=== PATIENT | female | born 1995 | race Caucasian/White ===

== ENCOUNTER 2021-11-19 10:44 | Emergency (ER) | payer BC, SELFPAY ==
[2021-11-19 10:51] VITALS: BP 115/82; PULSE 75; RESP 18; TEMP 36.4; O2SAT 99; BMI 25.1
--- NOTE | 2021-11-19 11:24 | ED.GENADULT ---
HPI - General Adult General Chief complaint: Extremity Pain/Injury, Upper Stated complaint: RT arm and neck tingly and aching Time Seen by Provider: 11/19/21 11:00 History of Present Illness HPI narrative: This 26-year-old female comes in reporting bilateral neck and shoulder discomfort over the past week. She had an episode this morning where she was attempting to put a cap on a marker and she had brief pain in her shoulder and upper arm and had difficulty performing that function. This lasted for less than a minute and since then she has recovered. She did not have any other symptoms. She does not describe any injury event. She is breast-feeding and wonders if her muscles are undergoing some strain with caring for her 4-month-old . 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 She does not have any pain radiating down into her hands. She does not report any altered sensation. Related Data Home Medications Medication Instructions Recorded Confirmed hydrocortisone 2.5 % lotion 2.5 topical PRN 09/04/21 11/18/21 Previous Rx's Medication Instructions Recorded methylprednisolone 4 mg tablets in See Rx Instructions PO .COMPLEX 11/19/21 a dose pack (Medrol (Jonny)) #21 ea Allergies Allergy/AdvReac Type Severity Reaction Status Date / Time No Known Allergies Allergy Unknown Verified 11/19/21 10:51 Review of Systems Status of ROS: Reports: 10 or more systems reviewed and unremarkable except as noted in History and below Narrative: Constitutional: No fevers, no weight gain or loss. Eyes: No discharge. No vision changes. HENT: No congestion, no sore throat, no ear pain. Cardiovascular: No chest pain, no palpitations. Respiratory: No shortness of breath, no wheezes, no cough. Gastrointestinal: No abdominal pain, no vomiting, no diarrhea. Genitourinary: No dysuria, no hematuria. Musculoskeletal: Normal range of motion. Brief episode some weakness in her right arm related to some pain up in her proximal humerus area. Skin: No rashes, no pruritis. Neurological: No dizziness, weakness, sensory change, speech change. Endo/Heme/Allergies: No bruising or bleeding. No polydipsia. Pysch: no suicidality, no anxiety, no insomnia. All other systems reviewed and are negative. [facility] Medical History (Updated 11/19/21 @ 11:30 by Timothy Castro MD) Chest wall pain History of delivery Inflamed external hemorrhoid Obstetric vaginal laceration with second degree perineal laceration Surgical History History of third molar tooth extraction Family History Mother Hx of blood clots Maternal Grandfather Diabetes Maternal Grandmother Diabetes Family/Other Heart disease 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 Smoking Status: Never smoker Do you use any of these nicotine containing products: None Second hand tobacco smoke exposure: No How often do you have a drink containing alcohol: monthly or less How often do you have six or more drinks on one occasion: Never AUDIT-C Alcohol total score: 1 Non-prescribed substance use: denies use Little interest or pleasure in doing things: not at all Feeling down, depressed, or hopeless: not at all service: No Exam Narrative: Exam Narrative: Constitutional: Well-developed, well-nourished, no acute distress. HEENT: Normocephalic, atraumatic. Neck: Normal range of motion. Nontender. Supple. Heart: Regular. No murmurs. Normal rate. Intact distal pulses. Lungs: Clear to auscultation. No chest discomfort. No wheezes, rhonchi, or rales. Abdomen: Normal bowel sounds. Nontender. No rebound tenderness. Genitalia: Deferred. Back: No midline tenderness. Normal range of motion. Extremities: Normal range of motion. No injury. Skin: Intact. No rash. Warm. No erythema or pallor. Neurologic: No altered sensation. No weakness. Alert and oriented. 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 No facial asymmetry. No pronator drift. Xuzlho-au-bdxr is normal. Spurling's test is negative. Psychiatric: No suicidality. No anxiety or depression. No insomnia. Nursing notes and vitals signs are reviewed. Const: Vital Signs, click to edit/add: Vital Signs - 24 hr 11/19/21 10:51 Temperature 97.6 F Pulse Rate [Pulse Oximeter] 75 Respiratory Rate 18 Blood Pressure [Le ft Upper Arm] 115/82 Pulse Oximetry 99 Oxygen Delivery Me thod Room Air Course Vital Signs Vital signs: Initial Vital Signs Temperature 97.6 F 11/19/21 10:51 Temperature Source Temporal Artery Scan 11/19/21 10:51 Pulse Rate 75 11/19/21 10:51 Respiratory Rate 18 11/19/21 10:51 Blood Pressure 115/82 11/19/21 10:51 Blood Pressure Mean 93 11/19/21 10:51 Blood Pressure Position Supine 11/19/21 10:51 Pulse Oximetry 99 11/19/21 10:51 Oxygen Delivery Method 11/19/21 10:51 Vital Signs Temperature 97.6 F 11/19/21 10:51 Pulse Rate 75 11/19/21 10:51 Respiratory Rate 18 11/19/21 10:51 Blood Pressure 115/82 11/19/21 10:51 Pulse Oximetry 99 11/19/21 10:51 Oxygen Delivery Method 11/19/21 10:51 Temperature 97.6 F 11/19/21 10:51 Pulse Rate 75 11/19/21 10:51 Respiratory Rate 18 11/19/21 10:51 Blood Pressure 115/82 11/19/21 10:51 Pulse Oximetry 99 11/19/21 10:51 Oxygen Delivery Method 11/19/21 10:51 Medical Decision Making MDM Narrative Medical decision making narrative: This patient comes in reporting symptoms as described above. She is not displaying obvious symptoms that could be related to nerve impingement. Her Spurling's test was negative. She is not having any ongoing symptoms and did not have any pain or altered sensation radiating down into her hand. She does describe some bilateral neck musculature discomfort and wonders if it has to do with repetitive activities she is involved in. She does not have any midline tenderness of her neck and back. She does not have any fevers or respiratory symptoms. She does not report any skin changes. This patient is not displaying signs or symptoms that are worrisome. More likely her muscles are complaining with some overuse activities. I did discuss lab and imaging options with the patient and in a process of shared decision making these were declined. She did receive a prescription for Medrol Dosepak. I describe signs and symptoms that would indicate a need for return and re-evaluation. Discharge Plan Discharge Clinical Impression: Neck pain Patient Disposition: Home, Self-Care Condition: Stable Additional Instructions: Take medication as indicated. Use [id number] medicines also as needed and directed. Increase activity as tolerated. Follow up with MD or return if worsening symptoms happen. Prescriptions: New methylprednisolone [Medrol (Jonny)] 4 mg tablets,dose pack See Rx Instructions .ROUTE .COMPLEX Qty: 21 0RF Rx Instructions: orally per package directions No Action hydrocortisone 2.5 % lotion 2.5 topical PRN Follow Up/Referrals: Provider,Not a Local [Referring] - Stand Alone Forms: [employer] Info Instructions
== END 2021-11-19 11:42 | disposition home or self-care (01) ==
LOC: ED 11:30
PROVIDERS: Emergency Provider Emergency Medicine Emergency Medical Services; PCP Physician Assistant Medical
DX: M54.2 Cervicalgia (principal)
CPT/HCPCS: 99283; 99284

== ENCOUNTER 2021-12-17 14:43 | Outpatient (CLI) | payer BC, SELFPAY ==
--- NOTE | 2021-12-17 15:30 | CRLHL7_ITS ---
For Patients: As a result of the Century Cures Act, medical imaging exams and procedure reports are released immediately into your electronic medical record. You may view this report before your referring provider. If you have questions, please contact your health care provider. Indication: Pronator drift. Vision blurriness. Technique: Multiplanar, multisequence MRI of the brain was performed without and with intravenous contrast. Contrast: 15 cc Dotarem. Comparison: None relevant available at this institution. Findings: The corpus callosum, pituitary gland and clivus appear intact. Craniocervical junction appears preserved. No cerebellar tonsillar ectopia. There is no restricted diffusion. No intracranial hemorrhage. The ventricles are proportionate to the cerebral sulci. The 4th ventricle appears midline. The basal cisterns appear patent. No abnormal extra-axial fluid collection identified. There are few scattered foci of T2 FLAIR hyperintensity involving the subcortical white matter. Most pronounced lesion noted along the left centrum semiovale. There is no intracranial mass, abnormal mass-effect or midline shift identified. No abnormal enhancement. Major intracranial vascular flow voids appear grossly intact. Both globes are preserved. Mild paranasal sinus mucosal disease. Left maxillary sinus mucous retention cyst/polyp. Impression: 1. No acute/subacute infarct. 2. Few scattered foci of T2 FLAIR hyperintensity involving the periventricular and subcortical white matter. Differential considerations include sequela of migraine headaches versus are vasculopathic/inflammatory or demyelinating process. Dictated by Ori Bruner MD @ 12/18/2021 10:02:52 AM (Electronically Signed)
== END 2021-12-17 14:44 | disposition home or self-care (01) ==
LOC: MRI 14:43
PROVIDERS: PCP Physician Assistant Medical; Visit Provider Family Medicine
DX: H53.8 Other visual disturbances (principal); G12.29 Other motor neuron disease; Z82.3 Family history of stroke
CPT/HCPCS: 70553; A9575

== ENCOUNTER 2021-12-22 19:08 | Outpatient (CLI) | payer BC, SELFPAY ==
[2021-12-22 20:52] LABS: Cholesterol* 198 mg/dL (90-199); HDL Cholesterol* 73 mg/dL (>=50); LDL Cholesterol Calculated 109 mg/dL (<100); Triglycerides* 82 mg/dL (40-149)
== END 2021-12-22 19:09 | disposition home or self-care (01) ==
LOC: NFLDREF 19:09
PROVIDERS: PCP Physician Assistant Medical; Visit Provider Registered Nurse
DX: Z01.419 Encounter for gynecological examination (general) (routine) without abnormal findings (principal); Z13.6 Encounter for screening for cardiovascular disorders
CPT/HCPCS: 80061

== ENCOUNTER 2022-03-18 14:56 | Outpatient (CLI) | payer BC, SELFPAY ==
[2022-03-18 15:31] LABS: Basophils Absolute Auto 0.03 K/uL (0.00-0.30); Basophils Percent Auto 0.6 % (0.0-3.0); Eosinophils Absolute Auto 0.05 K/uL (0.00-0.50); Hematocrit 40.8 % (33.0-51.0); Hemoglobin* 13.2 gm/dL (12.0-16.0); Immature Granulocytes Abs Auto 0.01 K/uL (0.00-0.30); Immature Granulocytes Pct Auto 0.2 %; Lymphocytes Absolute Auto 1.12 K/uL (0.90-2.90); Lymphocytes Percent Auto 22.9 % (20-44); Mean Corpuscular HGB Conc 32 gm/dL (32-36); Mean Corpuscular Hemoglobin 30 pg (26-34); Mean Corpuscular Volume 92 fL (80-100); Monocytes Percent Auto 9.6 % (0.0-11.0); Neutrophils Absolute Auto 3.22 K/uL (1.7-7.0); Neutrophils Percent Auto 65.7 % (42.0-72.0); Platelet Count* 282 K/uL (140-440); RDW Coefficient of Variation % 12.5 % (11.5-15.5); Red Blood Count 4.43 m/uL (4.00-5.20)
[2022-03-18 15:45] LABS: Slide Review Reflex No
== END 2022-03-18 14:57 | disposition home or self-care (01) ==
PROVIDERS: PCP Physician Assistant Medical; Visit Provider Psychiatry & Neurology Neurology
DX: Z11.9 Encounter for screening for infectious and parasitic diseases, unspecified (principal); G40.A09 Absence epileptic syndrome, not intractable, without status epilepticus; G25.3 Myoclonus
CPT/HCPCS: 36415; 85025; 86618

== ENCOUNTER 2022-05-06 15:17 | Outpatient (CLI) | payer BC, SELFPAY | END 2022-05-06 15:18 | disposition home or self-care (01) | LOC: NFLDREF 05-08 05:54 | PROVIDERS: PCP Physician Assistant Medical; Referring Provider Physician Assistant Medical; Visit Provider Nurse Practitioner Family | DX: R30.0 Dysuria (principal) | CPT/HCPCS: 87086 ==

== ENCOUNTER 2022-05-26 09:03 | Outpatient (CLI) | payer BC, SELFPAY | END 2022-05-26 09:04 | disposition home or self-care (01) | PROVIDERS: PCP Physician Assistant Medical; Visit Provider Family Medicine | DX: R10.31 Right lower quadrant pain (principal); R53.83 Other fatigue | CPT/HCPCS: 80053; 84703 ==

== ENCOUNTER 2022-06-24 15:26 | Outpatient (CLI) | payer BC, SELFPAY | END 2022-06-24 15:27 | disposition home or self-care (01) | LOC: NFLDREF 06-28 03:46 | PROVIDERS: PCP Physician Assistant Medical; Referring Provider Physician Assistant Medical; Visit Provider Family Medicine | DX: E80.6 Other disorders of bilirubin metabolism (principal) | CPT/HCPCS: 80076 ==

== ENCOUNTER 2022-07-09 21:21 | Emergency (ER) | payer BC, SELFPAY ==
[2022-07-09 21:29] VITALS: BP 126/78; PULSE 93; RESP 16; TEMP 36.7; O2SAT 98; BMI 23.5
--- NOTE | 2022-07-09 21:39 | CRLHL7_ITS ---
For Patients: As a result of the Century Cures Act, medical imaging exams and procedure reports are released immediately into your electronic medical record. You may view this report before your referring provider. If you have questions, please contact your health care provider. INDICATION: Complex fluid collection seen on CT. Pelvic pain. COMPARISON: CT of the abdomen and pelvis with contrast from 07/06/2022. FINDINGS: Transvaginal and transabdominal ultrasound examination of the female pelvis was performed. Initial examination is performed with transabdominal technique and transvaginal technique is used for better visualization of the pelvic structures. The uterus is anteverted with no evidence of mass. It measures 8.3 x 3.5 x 4.4 cm. The endometrial lining is normal in thickness at 8 mm. The ovaries are normal in appearance and size, the right measuring 2.1 x 3.7 x 2.0 cm and the left measuring 3.0 x 2.1 x 2.2 cm. The right ovary has several simple dominant follicular cysts, the largest measuring 1.3 centimeters in diameter. The left ovary has a few small follicular cysts. There is normal color and pulse doppler flow in both ovaries. The 3.0 centimeter cystic structure seen in the right cul-de-sac on the previous CT is not evident on today`s study. This is located very far posterior to the right ovary. There is no sign of free fluid in the pelvis. IMPRESSION: Normal ultrasound examination of the female pelvis using transvaginal and transabdominal technique. 3.0 centimeter cystic structure seen posteriorly in the right cul-de-sac on CT is not evident on today`s study. Dictated by Trevor Victoria MD @ 07/09/2022 10:51:09 PM (Electronically Signed)
--- NOTE | 2022-07-09 21:41 | ED.GENADULT ---
HPI - General Adult General Chief complaint: Back Injury/Pain Stated complaint: back pain, ct earlier this week Time Seen by Provider: 07/09/22 21:34 History of Present Illness HPI narrative: Patient is a 27-year-old woman who has been having pain in the right side of her abdomen for last 2 months. Patient had evaluation in the clinic this week including CT scan which showed a complex fluid collection in the cul-de-sac on the right. The pain is located in the low abdomen with radiation posteriorly to the mid posterior abdomen. She has had no anorexia no change in her bowel or bladder no fevers no chills. She has no urinary symptoms. She has had no cough no shortness of breath. She is really not found anything that helps her with her symptoms. Patient has no previous history of abdominal pathology. The pain is dull. She has been taking Tylenol Motrin home with limited effect. Related Data Home Medications Medication Instructions Recorded Confirmed sumatriptan succinate 100 mg tablet 0 mg PO 05/06/22 06/25/22 vitamin#30 30 mg iron-10 cap PO .QD 05/26/22 06/25/22 mg iron-folic acid 1 mg-omg3 capsule Previous Rx's Medication Instructions Recorded cyclobenzaprine 10 mg tablet 10 mg PO TID PRN muscle spasm #14 01/04/22 tabs fluconazole 150 mg tablet 150 mg PO ONCE #1 tab 05/10/22 (Diflucan) polyethylene glycol 3350 17 17 g PO BID #510 grams 05/27/22 gram/dose oral powder (Miralax) Allergies Allergy/AdvReac Type Severity Reaction Status Date / Time No Known Allergies Allergy Unknown Verified 06/25/22 15:07 Review of Systems Status of ROS: Reports: 10 or more systems reviewed and unremarkable except as noted in History and below [facility] Medical History Low back pain ?M54.50 - Low back pain, unspecified (ICD-10) History of delivery ?Z87.51 - Personal history of pre-term labor (ICD-10) Obstetric vaginal laceration with second degree perineal laceration ?O70.1 - Second degree perineal laceration during delivery (ICD-10) Inflamed external hemorrhoid ?K64.4 - Residual hemorrhoidal skin tags (ICD-10) Chest wall pain ?R07.89 - Other chest pain (ICD-10) Surgical History History of third molar tooth extraction (2016) ?K08.409 - Partial loss of teeth, unspecified cause, unspecified class (ICD-10) Family History Mother Hx of blood clots Family/Other Heart disease Breast cancer, Onset Age: 90 Paternal Grandmother Pulmonary hypertension Diabetes Paternal Grandfather Lung cancer Diabetes 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 (Updated 05/26/22 @ 11:04 by Marybeth Andrew MD) 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: , 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, 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 Very rare alcohol use Exercise 3 times a week, HIIT 30 minutes Smoking Status: Never smoker Do you use any of these nicotine containing products: None Second hand tobacco smoke exposure: No How often do you have a drink containing alcohol: monthly or less How often do you have six or more drinks on one occasion: Never AUDIT-C Alcohol total score: 1 Non-prescribed substance use: denies use Little interest or pleasure in doing things: not at all Feeling down, depressed, or hopeless: not at all service: No Exam Narrative: Exam Narrative: EXAM GENERAL: Patient appears comfortable and well. EYES: No scleral icterus. LYMPH: No supraclavicular or cervical lymphadenopathy. SKIN: Visible skin seen during exam normal or with benign process only. EXT: No dependent lower extremity pedal edema. HEART: Regular rate and rhythm with no murmurs, rubs, or gallops. LUNGS: Clear to auscultation bilaterally with no crackles or wheezes. ABD: Soft, non tender, non distended. PSYCH: Good eye contact, speech is not pressured. Const: Vital Signs, click to edit/add: Vital Signs - 24 hr 07/09/22 21:29 07/09/22 22:36 Temperature 98.0 F Pulse Rate [Pulse Oximeter] 93 78 Respiratory Rate 16 16 Blood Pressure [Ri ght Upper Arm] 126/78 136/83 Pulse Oximetry 98 100 Oxygen Delivery Me thod Room Air Room Air Course Course Hospital Course: Patient seen and examined. Previous evaluation reviewed. Will proceed with ultrasound of the pelvis as well as CBC CMP amylase UA D-dimer. Vital Signs Vital signs: Initial Vital Signs Temperature 98.0 F 07/09/22 21:29 Temperature Source Temporal Artery Scan 07/09/22 21:29 Pulse Rate 93 07/09/22 21:29 Respiratory Rate 16 07/09/22 21:29 Blood Pressure 126/78 07/09/22 21:29 Blood Pressure Mean 94 07/09/22 21:29 Pulse Oximetry 98 07/09/22 21:29 Oxygen Delivery Method Room Air 07/09/22 21:29 Vital Signs Temperature 98.0 F 07/09/22 21:29 Pulse Rate 93 07/09/22 21:29 Respiratory Rate 16 07/09/22 21:29 Blood Pressure 126/78 07/09/22 21:29 Pulse Oximetry 98 07/09/22 21:29 Oxygen Delivery Method Room Air 07/09/22 21:29 Temperature 98.0 F 07/09/22 21:29 Pulse Rate 78 07/09/22 22:36 Respiratory Rate 16 07/09/22 22:36 Blood Pressure 136/83 07/09/22 22:36 Pulse Oximetry 100 07/09/22 22:36 Oxygen Delivery Method Room Air 07/09/22 22:36 Medical Decision Making MDM Narrative Medical decision making narrative: Patient is a 27-year-old woman who presents with 2 month history of right-sided abdominal and back pain. Previously this week she had a complex cystic structure in the cul-de-sac. I did obtain in a transvaginal ultrasound which showed no signs of persistence of the cystic structure. Workup including D-dimer is unremarkable. She really has a normal exam today. Ultrasound is otherwise unremarkable. At this time I did note some ketones in her urine as well as some red blood cells and I did recommend follow-up this week with her primary doctor. Urine culture will be obtained. Differential Diagnosis Differential Diagnosis: Cystic pelvic lesion ovarian cyst colitis inflammatory bowel disease irrit Lab Data Labs: Lab Results 07/09/22 07/09/22 Range/Units 21:39 21:58 WBC 4.07 L (4.50-11.00) K/uL RBC 4.43 (4.00-5.20) m/uL Hgb 13.2 (12.0-16.0) gm/dL Hct 40.5 (33.0-51.0) % MCV 91 (80-100) fL MCH 30 (26-34) pg MCHC 33 (32-36) gm/dL RDW Coeff of Erasmo 12.5 (11.5-15.5) % Plt Count 253 (140-440) K/uL Neut % (Auto) 54.9 (42.0-72.0) % Lymph % (Auto) 33.4 (20-44) % Lawrence % (Auto) 9.8 (0.0-11.0) % Eos % (Auto) 0.7 (0.0-7.0) % Baso % (Auto) 0.5 (0.0-3.0) % Neut # (Auto) 2.20 (1.7-7.0) K/uL Lymph # (Auto) 1.40 (0.90-2.90) K/uL Lawrence # (Auto) 0.40 (0.00-0.90) K/UL Eos # (Auto) 0.00 (0.00-0.50) K/uL Baso # (Auto) 0.00 (0.00-0.30) K/uL D-Dimer Quant (PE/DVT) 0.37 (0.00-0.50) ug/ml Sodium 139 (135-149) mmol/L Potassium 4.0 (3.6-5.1) mmol/L Chloride 105 (96-114) mmol/L Carbon Dioxide 27 (20-32) mmol/L BUN 14 (5-24) mg/dL Creatinine 0.6 (0.5-1.5) mg/dL Estimated Creat Clear 139.38 Estimated GFR 128 ml/min Glucose 89 (60-115) mg/dL Calcium 9.1 (8.4-10.6) mg/dL Total Bilirubin 2.1 H (0.1-1.5) mg/dL AST 22 (12-35) U/L ALT 14 (4-35) U/L Alkaline Phosphatase 61 (40-150) U/L Total Protein 6.9 (6.0-8.3) g/dL Albumin 4.3 (3.3-5.0) g/dL Amylase 48 (18-89) U/L Urine Color Yellow (Yellow) Urine Appearance Clear (Clear) Urine pH 6.0 (5.0-8.5) Ur Specific [place] 1.025 (1.000-1.030) Urine Protein Negative (Negative) Urine Glucose (UA) Negative (Negative) Urine Ketones 3+ A (Negative) Urine Blood Trace-intact A (Negative) Urine Nitrite Negative (Negative) Urine Bilirubin Negative (Negative) Urine Urobilinogen 0.2 (0.2-1.0) Ur Leukocyte Esterase Negative (Negative) Urine RBC 2-5 A (0-2) Urine WBC 0-2 (0-5) Ur Squamous Epith Cells Few (None-Few) Urine Bacteria None (None) Discharge Plan Discharge Clinical Impression: Low back pain Patient Disposition: Home, Self-Care Condition: Stable Instructions: Back Pain (ED) Additional Instructions: Tylenol Motrin Ice Follow-up with her doctor this coming week. Prescriptions: No Action cyclobenzaprine 10 mg tablet 10 mg PO TID PRN (Reason: muscle spasm) Qty: 14 0RF PNV #[id number] 30 mg iron-10 mg iron-1 mg capsule PO .QD sumatriptan succinate 100 mg tablet 0 mg PO fluconazole [Diflucan] 150 mg tablet 150 mg PO ONCE Qty: 1 0RF Rx Instructions: as a single dose polyethylene glycol 3350 [Miralax] 17 gram/dose powder 17 g PO BID Qty: 510 0RF Follow Up/Referrals: Marybeth Andrew MD [Primary Care Provider] - Stand Alone Forms: [employer] Info Instructions
[2022-07-09 22:15] LABS: Albumin* 4.3 g/dL (3.3-5.0); Chloride* 105 mmol/L (96-114)
[2022-07-09 22:16] LABS: Sodium* 139 mmol/L (135-149)
[2022-07-09 22:18] LABS: Alkaline Phosphatase* 61 U/L (40-150); Amylase* 48 U/L (18-89); Aspartate Amino Transferase* 22 U/L (12-35); Bilirubin Total* 2.1 mg/dL (0.1-1.5); Blood Urea Nitrogen* 14 mg/dL (5-24); Carbon Dioxide* 27 mmol/L (20-32); Total Protein* 6.9 g/dL (6.0-8.3)
[2022-07-09 22:19] LABS: Alanine Aminotransferase* 14 U/L (4-35); Calcium* 9.1 mg/dL (8.4-10.6); Glucose* 89 mg/dL (60-115)
[2022-07-09 22:21] LABS: D Dimer Quantitative* 0.37 ug/ml (0.00-0.50)
[2022-07-09 22:36] VITALS: BP 136/83; PULSE 78; RESP 16; O2SAT 100
[2022-07-09 22:36] LABS: Creatinine* 0.6 mg/dL (0.5-1.5); Est. Creatinine Clearance* 139.38; Estimated Glomerular Filt Rate 128 ml/min
[2022-07-09 22:37] LABS: Basophils Percent Auto 0.5 % (0.0-3.0); Eosinophils Percent Auto 0.7 % (0.0-7.0); Hematocrit 40.5 % (33.0-51.0); Hemoglobin* 13.2 gm/dL (12.0-16.0); Immature Granulocytes Pct Auto 0.7 %; Lymphocytes Percent Auto 33.4 % (20-44); Mean Corpuscular HGB Conc 33 gm/dL (32-36); Mean Corpuscular Hemoglobin 30 pg (26-34); Mean Corpuscular Volume 91 fL (80-100); Monocytes Percent Auto 9.8 % (0.0-11.0); Neutrophils Percent Auto 54.9 % (42.0-72.0); Platelet Count* 253 K/uL (140-440); RDW Coefficient of Variation % 12.5 % (11.5-15.5); Red Blood Count 4.43 m/uL (4.00-5.20); White Blood Count* 4.07 K/uL (4.50-11.00)
[2022-07-09 22:46] LABS: Slide Review Reflex No
[2022-07-09 22:48] LABS: Appearance Urine Clear (Clear); Bilirubin Urine Negative (Negative); Blood Urine Trace-intact (Negative); Color Urine Yellow (Yellow); Glucose Urine Negative (Negative); Ketones Urine 3+ (Negative); Leukocyte Esterase Urine Negative (Negative); Nitrite Urine Negative (Negative); Protein Urine Negative (Negative); Specific Gravity Urine 1.025 (1.000-1.030); Urobilinogen Urine 0.2 (0.2-1.0)
[2022-07-09 23:03] LABS: WBC Urine 0-2 (0-5)
[2022-07-09 23:04] LABS: Squamous Epithelial Cell Urine Few (None-Few)
== END 2022-07-09 23:15 | disposition home or self-care (01) ==
PROVIDERS: Emergency Provider Internal Medicine; PCP Family Medicine
DX: M54.59 Other low back pain (principal)
CPT/HCPCS: 36415; 76830; 76856; 80053; 81003; 81015; 82150; 85025; 85379; 93976; 99283

== ENCOUNTER 2022-11-16 15:30 | Outpatient (RCR) | payer BC, SELFPAY ==
--- NOTE | 2022-08-18 12:29 | PT.OPDN ---
PT [facility] Daily Note PT [facility] Outpatient Daily Note Start: 03/10/22 15:45 Freq: Status: Active Protocol: Document 08/18/22 08:17 JESUS (Rec: 08/18/22 10:45 JESUS Laptop) E-signed By Celine Fierro PT OP Daily Progress Note Visit Information Note Type Daily Note Visit Number [id number] Insurance Authorized Visits 100 Physician Authorized Visits eval and treat Insurance Information Insurance Name [employer] Medical Diagnosis M54.2 - neck pain Treating Diagnosis M54.2 - neck pain Referring Jon Sadler MD; Madan Frias MD; Martha Olvera MD Subjective Subjective Pt has been having a lot of pain in her upper R trap and neck area. Her tried to massage it but it did not help. Had FLORES as well but this improved with Tylenol/IBP use. Preferred Name Gabrielle ([facility] [place]) Precautions Treatment Precautions/Contraindications Mami - daughter's name Warner - 's name Home Exercise Home Exercise Comments [id number] Objective Other/Pertinent Objective Cervical AROM: Extension: 40 Flexion: 58 R/L Sidebend: 33/45 R/L Rotation: 75/70 R Scapular Strength Rhomboid - 5/5 MMT Mid Trap - 5/5 MMT Lower Trap - 4/5 MMT L Scapular Strength Rhomboid - 5/5 MMT Mid Trap - 4+/5 MMT Lower Trap - 4+/5 MMT Patient Instructed in Risks/Benefits Yes Therapeutic Exercise Therapeutic Exercise Minutes (minutes) 10 Therapeutic Exercise: To Restore S/L lateral cervical flexion 2 Functional Status x 20 ea Seated levator stretch 3 x 30 ea Manual Therapy Techniques Manual Therapy Minutes (minutes) 30 Manual Therapy Techniques STM performed in prone to B rhomboid/mid trap, levator; supine to B UT, cervical paraspinals to reduce tissue tension and improve extensibility. Supine assisted UT stretch x 30 ea Grade V rotational CTJ manipulation to relax muscle tissue tension with cavitation noted to L only Grade V PA thoracic manipulation to relax muscle tissue tension with cavitation noted Treatment Minutes Timed Code Treatment Minutes 40 Total Treatment Time 40 Billing Units Manual Therapy Units 2 Therapeutic Exercise Units 1 Assessment/Impression Assessment/Impression Adam symptoms have fluctuated and persisted during her time in therapy. She continues to present with spasms in her R levator scapulae muscle and upper trap . These do show short-lived improvements with massage and stretching but treatment has not been long-lasting. I do feel that Gabrielle's chronic spasms and pain in this region is due to overuse of these muscles while caring for her daughter; she also tends to carry a lot of stress in her shoulders which leads to an overactivation of her upper traps and levator muscles. We will try ultrasound to these muscle groups when she returns to our clinic next week as well as focus on activation of bilaterally lower traps to reduce load on upper traps. Pt to schedule 2/week for next 4 weeks for more aggressive treatment of her condition. Recommend continued PT services to address deficits and return pt to highest level of function. Co-Signed by Raymond Landa, PT, DPT, [id number] Plan of Care Physical Therapy Goals STG - To be completed in 2-3 weeks: 1. Pt will demonstrate improved cervical strength to 5/5 MMT in all directions to provide greater support to cervical spine and head. 2. Pt will report reduction in neck pain by factor of 2 so that they may roll over in bed without waking due to pain. MET 3. Pt will report reduction in headache intensity by factor of 2 so that they may remain functional at home when headaches do occur. MET LTG - To be completed in 6-8 weeks: 1. Pt to be I with HEP so that they may I manage progression of symptoms. 2. Pt will demo full and pain free cervical rotation ROM and lateral flexion ROM so that they may look over shoulder while driving to watch for traffic. 3. Pt will report absence of neck pain with all activities so that they may return to participating in recreational activities with their friends and family. 4. Pt will report reduction of frequency of headaches to 1/ week so that headaches minimally interfere with them during working hours. Daily Plan of Care Change in Frequency Daily Plan of Care Comments increasing frequency to 2/week for 4 weeks Student Supervision Licensed PT Directed/Approved Treatment, Reviewed POC with Patient,Made Contact with Patient, Participated in Treatment Documentation Reviewed By Clothes Shaker Yes
--- NOTE | 2022-09-21 09:11 | PT.OPDN ---
PT [facility] Daily Note PT [facility] Daily Note Start: 03/10/22 15:45 Freq: Status: Active Protocol: Document 09/21/22 07:59 CJT (Rec: 09/21/22 09:11 CJT [id number]) E-signed By Raymond Landa, PT PT OP Daily Progress Note Visit Information Note Type Recert/Progress Note Visit Number 25 Insurance Authorized Visits 100 Physician Authorized Visits eval and treat Insurance Information Insurance Name [employer] Medical Diagnosis M54.2 - neck pain Treating Diagnosis M54.2 - neck pain Referring MD Jon Vazquez MD; Madan Frias MD; Martha Olvera MD Subjective Subjective Pts pain is improved. Still has mild achiness in B levator with R worse than L. Rates discomfort as 07/31 this AM. Pain Comments 07/31 Preferred Name Gabrielle ([facility] [place]) Precautions Treatment Precautions/Contraindications Mami - daughter's name Warner - 's name Home Exercise Home Exercise Comments [id number] Objective Other/Pertinent Objective Cervical AROM: Extension: 45 Flexion: 45 *tightness in bilateral levators R/L Sidebend: 34/36 R/L Rotation: 70/72 *pts rotation AROM increases to 88 degrees bilaterally following MET with lack of pain reported R Scapular Strength Rhomboid - 5/5 MMT Mid Trap - 4/5 MMT Lower Trap - 4/5 MMT L Scapular Strength Rhomboid - 5/5 MMT Mid Trap - 4/5 MMT Lower Trap - 4/5 MMT Patient Instructed in Risks/Benefits Yes Therapeutic Exercise Therapeutic Exercise Minutes (minutes) 40 Therapeutic Exercise: To Restore UBE x 4 minutes, level 5 Functional Status Shoulder IR/ER in neutral with RTB x 20 ea Shoulder ER at 90 with RTB x 20 ea Shoulder Extensions with GRB x 20 TRX Row 3 x 8 BOSU Push-ups 3 x 8 SA Row, 35# 3 x 5 ea SA Split stance deadlift 3 x 6 ea Bird/Dog w/ crunch 3 x 10 ea Dynamic dumbbell press 3 x 10 ea, 8# Manual Therapy Techniques Manual Therapy Minutes (minutes) 5 Manual Therapy Techniques STM/DTM performed in prone to R levator to reduce tissue tension and improve extensibility. Treatment Minutes Timed Code Treatment Minutes 45 Total Treatment Time 45 Billing Units Therapeutic Exercise Units 3 Assessment/Impression Assessment/Impression Gabrielle's symptoms have shown consistent improvement, however, she is still reporting a high level of pain in her cervical/scapular region (7/10 this morning) which appears to be caused by muscle tissue tension in her levator scapulae. She rates her overall improvement as greater than 70% at this time. She is no longer experiencing headaches as she had been intiially. Gabrielle continues to show lack of cervical rotation AROM due to muscle tightness but this is much improved today following a muscle energy technique for cervical rotation. Pts Cervical rotation AROM was improved from grossly 72 degrees bilaterally to 88 degrees bilaterally following. We will continue to utilize this technique in subsequent sessions to facilitate cervical AROM. For future treatment sessions, I feel a focus on postural awareness will be especially important for Gabrielle as she continues to carry a lot of her stress in her shoulders and this contributes to her pain. I don 't feel her pain will ever fully resolve while she continues to have these habits of carrying stress in her shoulders. We will discuss in greater detail with her when she returns to our clinic on as well as update her HEP. Recommend continued PT services to address deficits and return pt to highest level of function. Plan of Care Physical Therapy Goals STG - To be completed in 2-3 weeks: 1. Pt will demonstrate improved cervical strength to 5/5 MMT in all directions to provide greater support to cervical spine and head. 2. Pt will report reduction in neck pain by factor of 2 so that they may roll over in bed without waking due to pain. MET 3. Pt will report reduction in headache intensity by factor of 2 so that they may remain functional at home when headaches do occur. MET LTG - To be completed in 6-8 weeks: 1. Pt to be I with HEP so that they may I manage progression of symptoms. 2. Pt will demo full and pain free cervical rotation ROM and lateral flexion ROM so that they may look over shoulder while driving to watch for traffic. NOT MET - pt continues to lack cervical AROM and experiences pain with testing 3. Pt will report absence of neck pain with all activities so that they may return to participating in recreational activities with their friends and family. NOT MET 4. Pt will report reduction of frequency of headaches to 1/ week so that headaches minimally interfere with them during working hours. MET Daily Plan of Care Continue per POC Daily Plan of Care Comments McConnel taping over B levator , IASTM to B levator with AROM ; update HEP
--- NOTE | 2022-11-16 16:28 | PT.OPDN ---
PT [place] [facility] Daily Note PT [facility] Daily Note Start: 03/10/22 15:45 Freq: Status: Active Protocol: Document 11/16/22 15:31 CJT (Rec: 11/16/22 16:27 CJT [id number]) E-signed By Raymond Landa, PT PT OP Daily Progress Note Visit Information Note Type Daily Note Visit Number 28 Insurance Authorized Visits 100 Physician Authorized Visits eval and treat Insurance Information Recert Due Date 12/20/22 Insurance Name [employer] Medical Diagnosis M54.2 - neck pain Treating Diagnosis M54.2 - neck pain Referring MD Jon Vazquez MD; Vania- Madan Aguirre MD; Martha Olvera MD Subjective Subjective Pt continues to note symptoms including neck pain, upper back/scapular pain and headaches. She has been faithful with her HEP over the past month and throughout her time in therapy. 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 Preferred Name Gabrielle ([facility]) Precautions Treatment Precautions/Contraindications Mami - daughter's name Warner - 's name Home Exercise Home Exercise Comments [id number] Objective Other/Pertinent Objective Cervical AROM: WNL R Scapular Strength Rhomboid - 5/5 MMT Mid Trap - 5/5 MMT Lower Trap - 4+/5 MMT L Scapular Strength Rhomboid - 5/5 MMT Mid Trap - 4+/5 MMT Lower Trap - 4+/5 MMT Patient Instructed in Risks/Benefits Yes Manual Therapy Techniques Manual Therapy Minutes (minutes) 32 Manual Therapy Techniques STM/DTM performed in prone to B scalenes, UT, levator, rhomboids, thoracic paraspinals to reduce tissue tension and improve extensibility. Self Care Management Training Self-Care Activity Minutes (minutes) 12 Self Care Management Training McConnel tape applied cross- grain to B levator with AP tension to diminish spasm. Verbal review and discussion of pts HEP; indications for specific stretches, goals of training opposing muscle groups. Treatment Minutes Timed Code Treatment Minutes 44 Total Treatment Time 44 Billing Units Manual Therapy Units 2 Self-Care Activity Units 1 Assessment/Impression Assessment/Impression Italia had a lengthy discussion today regarding her symptoms, her improvement since starting therapy, and issues that have continued despite consistent performance of her HEP and behavioral changes regarding postural awareness during working hours . While Gabrielle has reported seeing meaningful change in her symptoms, she continues to have frequent recurring head aches, and neck and scapular pain. Personally I feel I am out of options when it comes to helping Gabrielle, although I feel working with a different Physical Therapist for some time may be beneficial - she agrees. I would also like for her to follow-up with her PCP (Dr. Andrew) to see if Gabrielle's symptoms may be a result of something more systemic in nature. I have my doubts about systemic causes for her pain as it continues to appear to be muscular and consistent with objective measures taken in our clinic, however, because her pain has lingered this long I don't think it would hurt to explore this potential option. Gabrielle has a follow-up appointment scheduled with her neurologist at the end of November. She and I have agreed to touch base following this meeting to discuss next steps. Plan of Care Physical Therapy Goals STG - To be completed in 2-3 weeks: 1. Pt will demonstrate improved cervical strength to 5/5 MMT in all directions to provide greater support to cervical spine and head. 2. Pt will report reduction in neck pain by factor of 2 so that they may roll over in bed without waking due to pain. MET 3. Pt will report reduction in headache intensity by factor of 2 so that they may remain functional at home when headaches do occur. MET LTG - To be completed in 6-8 weeks: 1. Pt to be I with HEP so that they may I manage progression of symptoms. 2. Pt will demo full and pain free cervical rotation ROM and lateral flexion ROM so that they may look over shoulder while driving to watch for traffic. NOT MET - pt continues to lack cervical AROM and experiences pain with testing 3. Pt will report absence of neck pain with all activities so that they may return to participating in recreational activities with their friends and family. NOT MET 4. Pt will report reduction of frequency of headaches to 1/ week so that headaches minimally interfere with them during working hours. MET Daily Plan of Care Continue per POC
== END 2023-02-01 10:30 | disposition home or self-care (01) ==
PROVIDERS: PCP Physician Assistant Medical; Visit Provider Psychiatry & Neurology Neurology
DX: M54.2 Cervicalgia (principal); R14.0 Abdominal distension (gaseous); R10.31 Right lower quadrant pain; Z51.89 Encounter for other specified aftercare
CPT/HCPCS: 97035; 97110; 97140; 97161; 97535

== ENCOUNTER 2023-01-14 23:04 | Emergency (ER) | payer BC, SELFPAY ==
[2023-01-14 23:08] VITALS: BP 107/71; PULSE 87; RESP 18; TEMP 36.3; O2SAT 98; BMI 23.5
--- NOTE | 2023-01-14 23:18 | CRLHL7_ITS ---
For Patients: As a result of the Century Cures Act, medical imaging exams and procedure reports are released immediately into your electronic medical record. You may view this report before your referring provider. If you have questions, please contact your health care provider. INDICATION: Leg pain and swelling. TECHNIQUE: Ultrasound venous duplex lower left extremity. Compression venous exam was performed using armstrong-scale, color Doppler, and spectral Doppler analysis. COMPARISON: None. FINDINGS: Deep veins: Sonographic imaging demonstrates the left common femoral, deep femoral, superficial femoral, popliteal, posterior tibial and the contralateral right common femoral veins to be fully compressible with normal color Doppler blood flow. Superficial veins: Greater saphenous vein is fully compressible. No popliteal cyst. IMPRESSION: Normal left lower extremity venous ultrasound, no sign of deep venous thrombosis. Dictated by Miles Le MD @ 01/15/2023 1:08:02 AM (Electronically Signed)
--- NOTE | 2023-01-14 23:19 | ED_ITS ---
HPI - Extremity Injury (Lower) General Chief Complaint: Extremity Pain/Injury, Lower Stated Complaint: Pain on L Leg Time Seen by Provider: 01/14/23 23:15 History of Present Illness HPI Narrative: Patient is a 2 para 1 woman who is 7 weeks who comes in today with pain and swelling in the left calf. She has no bruising or ecchymoses. The pain is in the posterior aspect of the calf. His worsen with range of motion. She has no joint pain. Pain is actually moderate she does feel some minor swelling. No other complaints are noted such as chest pain shortness of breath. She has no vaginal pain or discharge. Related Data Home Medications Medication Instructions Recorded Confirmed sumatriptan succinate 100 mg tablet 0 mg PO 05/06/22 07/27/22 vitamin#30 30 mg iron-10 cap PO .QD 05/26/22 07/27/22 mg iron-folic acid 1 mg-omg3 capsule Allergies Allergy/AdvReac Type Severity Reaction Status Date / Time No Known Allergies Allergy Unknown Verified 01/14/23 23:12 Review of Systems Status of ROS: Reports: 10 or more systems reviewed and unremarkable except as noted in History and below [facility] Medical History Low back pain ?M54.50 - Low back pain, unspecified (ICD-10) History of delivery ?Z87.51 - Personal history of pre-term labor (ICD-10) Obstetric vaginal laceration with second degree perineal laceration ?O70.1 - Second degree perineal laceration during delivery (ICD-10) Inflamed external hemorrhoid ?K64.4 - Residual hemorrhoidal skin tags (ICD-10) Chest wall pain ?R07.89 - Other chest pain (ICD-10) Surgical History History of third molar tooth extraction (2016) ?K08.409 - Partial loss of teeth, unspecified cause, unspecified class (ICD- 10) Family History Mother Hx of blood clots Family/Other Heart disease Breast cancer, Onset Age: 90 Paternal Grandmother Pulmonary hypertension Diabetes Paternal Grandfather Lung cancer Diabetes 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 EYES: No scleral icterus. ENT: Tympanic membranes and oropharynx normal. THYROID: no thyroid nodules or thyromegaly. LYMPH: No supraclavicular or cervical lymphadenopathy. SKIN: Visible skin seen during exam normal or with benign process only. EXT: No dependent lower extremity pedal edema. No pain to palpation no obvious swelling left leg. HEART: Regular rate and rhythm with no murmurs, rubs, or gallops. LUNGS: Clear to auscultation bilaterally with no crackles or wheezes. ABD: Soft, non tender, non distended. PSYCH: Good eye contact, speech is not pressured. Const: Vital Signs, click to edit/add: Vital Signs - 24 hr 01/14/23 23:08 Temperature 97.3 F L Pulse Rate [Pulse Oximeter] 87 Respiratory Rate 18 Blood Pressure [Ri ght Upper Arm] 107/71 Pulse Oximetry 98 Oxygen Delivery Me thod Room Air Course Course ED Course: Patient seen and examined. Duplex of left lower extremity pending. Vital Signs Vital signs: Initial Vital Signs Temperature 97.3 F L 01/14/23 23:08 Temperature Source Temporal Artery Scan 01/14/23 23:08 Pulse Rate 87 01/14/23 23:08 Respiratory Rate 18 01/14/23 23:08 Blood Pressure 107/71 01/14/23 23:08 Blood Pressure Mean 83 01/14/23 23:08 Blood Pressure Position Sitting 01/14/23 23:08 Pulse Oximetry 98 01/14/23 23:08 Oxygen Delivery Method Room Air 01/14/23 23:08 Vital Signs Temperature 97.3 F L 01/14/23 23:08 Pulse Rate 87 01/14/23 23:08 Respiratory Rate 18 01/14/23 23:08 Blood Pressure 107/71 01/14/23 23:08 Pulse Oximetry 98 01/14/23 23:08 Oxygen Delivery Method Room Air 01/14/23 23:08 Temperature 97.3 F L 01/14/23 23:08 Pulse Rate 87 01/14/23 23:08 Respiratory Rate 18 01/14/23 23:08 Blood Pressure 107/71 01/14/23 23:08 Pulse Oximetry 98 01/14/23 23:08 Oxygen Delivery Method Room Air 01/14/23 23:08 MDM - Extremity Injury (Lower) MDM Narrative Medical decision making narrative: Patient is a 27-year-old woman who is 7 weeks with her 2nd child who presents with pain and subjective swelling the left leg. My exam is normal. She has normal vital signs and her duplex of left lower extremity is unremarkable. This time we will treat her symptomatically and she can follow-up with her primary physician as needed. All questions answered. Differential diagnosis includes but not limited to DVT, phlebitis, ruptured Lim cyst, cellulitis, ruptured musculature, muscle strain. Discharge Plan Discharge Clinical Impression: Leg pain Patient Disposition: Home, Self-Care Condition: Stable Instructions: Leg Pain (ED) Additional Instructions: Warm compresses Stretching Follow up with your doctor if symptoms do not improve. Activity Level: No Restrictions Discharge Diet: Regular Prescriptions: No Action PNV #[id number] 30 mg iron-10 mg iron-1 mg capsule PO .QD sumatriptan succinate 100 mg tablet 0 mg PO Hold Instructions: Order Change Follow Up/Referrals: Marybeth Andrew MD [Primary Care Provider] - Stand Alone Forms: [employer] Info Instructions
== END 2023-01-15 00:57 | disposition home or self-care (01) ==
PROVIDERS: Emergency Provider Internal Medicine; PCP Family Medicine
DX: M79.662 Pain in left lower leg (principal); Z3A.01 Less than 8 weeks gestation of pregnancy
CPT/HCPCS: 93971; 99283

== ENCOUNTER 2023-01-26 12:56 | Outpatient (CLI) | payer BC, SELFPAY ==
--- NOTE | 2023-01-26 13:00 | CRLHL7_ITS ---
For Patients: As a result of the Century Cures Act, medical imaging exams and procedure reports are released immediately into your electronic medical record. You may view this report before your referring provider. If you have questions, please contact your health care provider. INDICATION: First trimester scan, establish dates. COMPARISON: None. TECHNIQUE: Real-time armstrong-scale imaging of the pelvis was performed. FINDINGS: Sonographic imaging demonstrates a single living intrauterine gestation. The embryo demonstrates a regular cardiac rate measuring 171 beats per minute. The embryo`s crown-rump length measurement of 1.6 cm corresponds to a gestational age of 8 weeks 0 days with a sonographic due date of 09/07/2023. There is a normal-appearing yolk sac. There are no gross abnormalities noted within the embryo at this early state of development. The gestational sac has a normal appearance. There is no evidence of a perigestational hemorrhage. The amount of fluid within the sac appears appropriate for gestational age. The cervix is closed. The myometrium appears normal. Simple right ovarian cyst is present measures 5.1 x 3.4 x 3.8 cm. Left ovary not visualized. There are no suspicious fluid collections noted in the cul-de-sac. IMPRESSION: Single living intrauterine measuring 8 weeks 0 days and sonographic due date 09/07/2023. 5.1 cm simple right ovarian cyst. Dictated by Warner Ortiz MD @ 01/26/2023 2:46:05 PM (Electronically Signed)
== END 2023-01-26 12:57 | disposition home or self-care (01) ==
LOC: US 12:56
PROVIDERS: PCP Family Medicine; Visit Provider Registered Nurse
DX: Z34.91 Encounter for supervision of normal pregnancy, unspecified, first trimester (principal); O34.81 Maternal care for other abnormalities of pelvic organs, first trimester; N83.291 Other ovarian cyst, right side; Z3A.08 8 weeks gestation of pregnancy
CPT/HCPCS: 76817; 86703; 86706; 86803; 86850; 86900; 86901; 87086; 87340; 87491; 87591

== ENCOUNTER 2023-01-26 14:07 | Outpatient (CLI) | payer BC, SELFPAY ==
[2023-01-26 23:49] LABS: Chlamydia DNA Amplified* NOT DETECTED (No Detected); GC DNA Amplified* NOT DETECTED (No Detected)
== END 2023-01-26 14:08 | disposition home or self-care (01) ==
PROVIDERS: PCP Family Medicine; Visit Provider Registered Nurse
DX: Z34.91 Encounter for supervision of normal pregnancy, unspecified, first trimester (principal)
CPT/HCPCS: 86592; 86703; 86704; 86706; 86762; 86787; 86803; 86850; 86900; 86901; 87086; 87340; 87491; 87591

== ENCOUNTER 2023-02-22 17:05 | Emergency (ER) | payer BC, SELFPAY ==
[2023-02-22 17:16] VITALS: BP 101/69; PULSE 96; RESP 16; TEMP 37.3; O2SAT 98; BMI 22.6
[2023-02-22] MEDS: LACTATED RINGERS 1000 ML IV (19:39)
--- NOTE | 2023-02-22 20:09 | ED.GENADULT ---
HPI - General Adult General Time Seen by Provider: 20:10 Date Seen: 02/22/23 Chief complaint: Unspecified Complaint, Adult Stated complaint: need fluids for dehydration () Time Seen by Provider: 02/22/23 19:28 Source: patient, RN notes reviewed and old records reviewed Mode of arrival: ambulatory Limitations: no limitations History of Present Illness HPI narrative: Patient is a very pleasant 27-year-old female at approximately 12 in 2 7th weeks with an EDC of 09/04/2023 who sent to the emergency room by the OB department for fluids and evaluation. Patient had noted to have increased vomiting with a total of 18 hours persistent vomiting on February 17. She notes the following day she felt very weak and out of it. History is confirmed and the following is an XR from her OB visit earlier today:Patient presents for an unscheduled OB visit. She has been feeling poorly since I saw her a week ago. She states that starting the evening of Tuesday the , she was feeling poorly. She had increased nausea and vomited a couple of times. February 16, she continued to feel poorly and vomited twice. February 17, she woke up at 2:00 a.m. and experienced persistent vomiting for 18 hours. She did take Zofran which offered some improvement. February 18, she continued to feel poorly, had body aches, but was not vomiting. She stayed in bed most of the day that day. She began experiencing shortness of breath on February 18. She presented to urgent care on February 19. She tested negative for influenza, COVID, and RSV. She states that the urgent care physician suggested that she stop taking Zofran, as that may be the cause for her shortness of breath. It was discovered that she has a murmur and an echocardiogram has been ordered. Patient states that she is scheduled for March 17 for the echocardiogram. Yesterday, she states she was vomiting again for about 10 hours. She continues to feel poorly today. She is nauseous, has aching bilateral legs, and has low energy, but is not vomiting. She took Vitamin B6 and Unisom today. The nausea feels like she is at her baseline for today. She continues to experience shortness of breath today when walking or talking. She has no swelling in her bilateral lower extremities. No isolated redness or tenderness in legs. Unable to auscultate heart tones with Doppler. Bedside ultrasound shows positive heart motion and positive movement. She has voided 2-3 times today, dark yellow in color. She has consumed 1 bottle of water thus far today. She looks pale and overall unwell. I suspect that the patient is dehydrated and that she might get a fair amount of improvement with IV hydration. Moving forward, she can continue to take Zofran as directed, as I do not suspect that is causing her SOB. I would like her to be evaluated and hydrated in the emergency department. Patient notes no vomiting today but has noted aching in her calves bilaterally. She notes that she did have history of superficial thrombophlebitis with previous . Otherwise no history of DVT. She denies abdominal pain and has not had cough cold congestion runny nose or sore throat. Patient notes that a few days ago she was going down stairs and got extremely short of breath. She notes that that is still present with a intense activity but has improved somewhat. She has not been wheezing nor has she had a cough. Related Data Home Medications Medication Instructions Recorded Confirmed vitamin#30 30 mg iron-10 cap PO .QD 05/26/22 02/22/23 mg iron-folic acid 1 mg-omg3 capsule Previous Rx's Medication Instructions Recorded hydrocortisone 2.5 % topical cream 1 applic WV BID-QID PRN 01/26/23 with perineal applicator hemorrhoids #30 grams (Anusol-HC) ondansetron 4 mg disintegrating 4 mg PO Q6H PRN nausea and 02/11/23 tablet vomiting #30 tabs famotidine 20 mg tablet 20 mg PO QDAY #90 tabs 02/15/23 Allergies Allergy/AdvReac Type Severity Reaction Status Date / Time No Known Allergies Allergy Unknown Verified 02/22/23 17:14 Review of Systems Status of ROS: Reports: 10 or more systems reviewed and unremarkable except as noted in History and below Const: Reports: fatigue; Denies: fever or chills Eyes: Denies: change in vision ENMT: Denies: throat pain, throat swelling, difficulty swallowing, ear pain, nasal discharge or nasal congestion Cardio: Reports: shortness of breath with exertion; Denies: chest pain, edema or swelling of feet/ankles Resp: Reports: shortness of breath; Denies: cough or wheezing GI: Reports: nausea and vomiting (None today); Denies: abdominal pain, diarrhea or difficulty swallowing : Denies: painful urination or urinary frequency Musculo: Denies: back pain Neuro: Denies: headache or numbness in extremities Endo: Reports: fatigue Allergy/Immuno: Denies: throat swelling or wheezing PFSH [facility] Medical History Low back pain ?M54.50 - Low back pain, unspecified (ICD-10) History of delivery ?Z87.51 - Personal history of pre-term labor (ICD-10) Obstetric vaginal laceration with second degree perineal laceration ?O70.1 - Second degree perineal laceration during delivery (ICD-10) Inflamed external hemorrhoid ?K64.4 - Residual hemorrhoidal skin tags (ICD-10) Chest wall pain ?R07.89 - Other chest pain (ICD-10) Surgical History History of third molar tooth extraction (2015) ?K08.409 - Partial loss of teeth, unspecified cause, unspecified class (ICD-10) Family History Mother Hx of blood clots Family/Other Heart disease Breast cancer, Onset Age: 90 Paternal Grandmother Pulmonary hypertension Diabetes Paternal Grandfather Lung cancer Diabetes 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: , 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, 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: never true Smoking Status: Never smoker Do you use any of these nicotine containing products: None Second hand tobacco smoke exposure: No How often do you have a drink containing alcohol: never AUDIT-C Alcohol total score: 0 Non-prescribed substance use: denies use How often does anyone, including family, friends and others, physically hurt you: never How often does anyone, including family, friends and others, insult or talk down to you: never How often does anyone, including family, friends and others, threaten you with harm: never How often does anyone, including family, friends and others, scream or curse at you: never Little interest or pleasure in doing things: not at all Feeling down, depressed, or hopeless: not at all service: No Exam Narrative: Exam Narrative: Patient is alert and oriented. She is fatigued but nontoxic in appearance. Eyes are clear. Face symmetrical. Mentation and speech is normal. Neck is supple without lymphadenopathy. Lips are dry but tongue is moist and speech pattern is normal. Heart with regular rate and rhythm. I do note a 2/6 systolic murmur. Lungs are clear bilaterally. Abdomen soft nontender. Lower extremities without edema. No Homans sign. No evidence of erythema. Moving all extremities and can ambulate to the bathroom unassisted. Const: Vital Signs, click to edit/add: Vital Signs - 24 hr 02/22/23 17:16 02/22/23 22:09 02/22/23 22:24 Temperature 99.1 F 99.1 F 98.5 F Pulse Rate [Pulse Oximeter] 96 89 Respiratory Rate 16 16 Blood Pressure [Ri ght Upper Arm] 101/69 110/74 Pulse Oximetry 98 98 Oxygen Delivery Me thod Room Air Room Air 02/22/23 22:25 Temperature 98.5 F Pulse Rate [Pulse Oximeter] 89 Respiratory Rate 16 Blood Pressure [Ri ght Upper Arm] 110/74 Pulse Oximetry Oxygen Delivery Me thod Documenting provider has reviewed patient's vital signs: yes Course Course ED Course: At this time differential diagnosis includes but is not limited to PE, lower extremity DVT, cardiomyopathy, hyper emesis gravidarum, GI virus, electrolyte abnormality, COVID influenza. Will place IV and this is already been done by nursing staff. Fluids had been started prior to my seeing patient. Will give her 2 L at this time. Will check a CBC, comprehensive, magnesium, COVID/influenza/RSV as well as lower extremity Dopplers. Reevaluation(s) Reevaluation #1: Patient does receive 2 L of fluid. She has a headache stating this is most likely because she has not eaten in a while. She request Tylenol and 1 g is ordered. EKG noted to be within normal limits and this is shared with patient. Lower extremity Dopplers are negative. Vital Signs Vital signs: Initial Vital Signs Temperature 99.1 F 02/22/23 17:16 Temperature Source Temporal Artery Scan 02/22/23 17:16 Pulse Rate 96 02/22/23 17:16 Pulse Rhythm Regular 02/22/23 17:16 Pulse Strength 3+ Normal 02/22/23 17:16 Respiratory Rate 16 02/22/23 17:16 Blood Pressure 101/69 02/22/23 17:16 Blood Pressure Mean 79 02/22/23 17:16 Blood Pressure Position Sitting 02/22/23 17:16 Pulse Oximetry 98 02/22/23 17:16 Oxygen Delivery Method Room Air 02/22/23 17:16 Vital Signs Temperature 99.1 F 02/22/23 17:16 Pulse Rate 96 02/22/23 17:16 Respiratory Rate 16 02/22/23 17:16 Blood Pressure 101/69 02/22/23 17:16 Pulse Oximetry 98 02/22/23 17:16 Oxygen Delivery Method Room Air 02/22/23 17:16 Temperature 98.5 F 02/22/23 22:25 Pulse Rate 89 02/22/23 22:25 Respiratory Rate 16 02/22/23 22:25 Blood Pressure 110/74 02/22/23 22:25 Pulse Oximetry 98 02/22/23 22:24 Oxygen Delivery Method Room Air 02/22/23 22:24 Medications Administered Medications: Discontinued Medications Generic Name Dose Route Start Last Admin Trade Name Freq PRN Reason Stop Dose Admin Acetaminophen 1,000 mg 02/22/23 22:02 02/22/23 22:09 Acetaminophen 500 Mg Tablet PO 02/22/23 22:03 1,000 mg ONCE ONE Administration Lactated Ringer's 1,000 mls @ 500 mls/hr 02/22/23 20:18 02/22/23 21:21 Lactated Ringers 1000 Ml IV 02/22/23 22:17 Infused .Q2H GUILLERMO Infusion Lactated Ringer's 1,000 ml 02/22/23 19:26 02/22/23 19:39 Lactated Ringers 1000 Ml IV 02/22/23 19:27 1,000 ml ONCE ONE Administration Medical Decision Making MDM Narrative Medical decision making narrative: 1. Fatigue-fortunately no evidence of abnormal white cells or electrolytes. COVID/influenza and RSV negative. 2. Vomiting-magnesium, creatinine LFTs all within normal limits. 3. Shortness of breath with activity-at this time patient has a normal oxygen level and pulse. Lower extremity Doppler is negative for DVT. EKG is normal with no evidence of right heart strain to indicate a cardiomyopathy or increased pressures secondary to PE. No evidence of fluid overload, acute coronary syndrome. Lungs are clear to auscultation. Given these findings I hesitate to put patient through radiological studies and she appears to agree we would like to avoid any radiation. Given and persistent vomiting I did not do a D-dimer but instead did lower extremity Dopplers. These were reassuring. I would recommend continuing to rest. I also recommended echocardiogram. Patient states that that is actually already scheduled for March 18. 4. Disposition-home at this time. I do ask patient if she feels comfortable departing and she does. Would ask her to return as needed for worsening symptoms. Medical Records Medical records reviewed: Yes I reviewed the patient's medical records Lab Data Lab results reviewed: Yes I reviewed the patient's lab results Labs: Lab Results 02/22/23 Range/Units 20:19 WBC 7.47 (4.50-11.00) K/uL RBC 4.61 (4.00-5.20) m/uL Hgb 13.6 (12.0-16.0) gm/dL Hct 41.2 (33.0-51.0) % MCV 89 (80-100) fL MCH 30 (26-34) pg MCHC 33 (32-36) gm/dL RDW Coeff of Erasmo 12.7 (11.5-15.5) % Plt Count 189 (140-440) K/uL Neut % (Auto) 75.3 H (42.0-72.0) % Lymph % (Auto) 15.8 L (20-44) % [place] % (Auto) 8.0 (0.0-11.0) % Eos % (Auto) 0.5 (0.0-7.0) % Baso % (Auto) 0.3 (0.0-3.0) % Neut # (Auto) 5.60 (1.7-7.0) K/uL Lymph # (Auto) 1.20 (0.90-2.90) K/uL [place] # (Auto) 0.60 (0.00-0.90) K/UL Eos # (Auto) 0.04 (0.00-0.50) K/uL Baso # (Auto) 0.02 (0.00-0.30) K/uL Abs Immat Gran (auto) 0.01 (0.00-0.30) K/uL Imm/Tot Granulo (auto) 0.1 % Sodium 138 (135-149) mmol/L Potassium 3.4 L (3.6-5.1) mmol/L Chloride 101 (96-114) mmol/L Carbon Dioxide 26 (20-32) mmol/L Anion Gap 11 (7-15) mEq/L BUN 8 (5-24) mg/dL Creatinine 0.4 L (0.5-1.5) mg/dL Estimated Creat Clear 209.08 Estimated GFR 141 ml/min Glucose 94 (60-115) mg/dL Calcium 9.1 (8.4-10.6) mg/dL Magnesium 1.9 (1.5-2.6) mg/dL Total Bilirubin 1.0 (0.1-1.5) mg/dL AST 24 (12-35) U/L ALT 13 (4-35) U/L Alkaline Phosphatase 63 (40-150) U/L Total Protein 7.5 (6.0-8.3) g/dL Albumin 4.3 (3.3-5.0) g/dL SARS-CoV-2 (PCR) Negative SARS-CoV-2 (Negative) Influenza Type A (PCR) Negative PCR FLU A (Negative) Influenza Type B (PCR) Negative PCR FLU B (Negative) RSV (PCR) Negative PCR RSV (Negative) Imaging Data Venous US: Attestation: I have reviewed the pertinent imaging results. Radiologist's impression: Deep veins: The bilateral common femoral, femoral, popliteal, and visualized calf veins are fully compressible, demonstrate normal color flow, and normal response to mechanical augmentation. The Duplex Doppler waveforms are normal in appearance. Superficial veins: The visualized greater saphenous and superficial veins of the leg and calf are unremarkable. Soft tissue: No masses or cysts are identified. No adenopathy is seen. IMPRESSION: 1. No sonographic evidence of acute deep venous thrombosis seen in either lower extremities. ECG Data Attestation: I personally reviewed and interpreted this ECG as follows: Interpretation: EKG by my read shows sinus rhythm at a rate of 92. There are no acute ST or T-wave changes noted. QRS morphology is normal. QT and WV intervals normal as well. No evidence of right heart strain. Discharge Plan Discharge Clinical Impression: Bilateral leg pain, Hyperemesis Fatigue Qualifiers: Fatigue type: other Qualified Code(s): R53.83 - Other fatigue Patient Disposition: Home, Self-Care Condition: Improved Additional Instructions: Recommend pushing fluids. Labs were all reassuring this evening. Lower extremity ultrasound without DVT. Prescriptions: No Action PNV #[id number] 30 mg iron-10 mg iron-1 mg capsule PO .QD hydrocortisone [Anusol-HC] 2.5 % cream with perineal applicator 1 applic WV BID-QID PRN (Reason: hemorrhoids) Qty: 30 0RF famotidine 20 mg tablet 20 mg PO QDAY Qty: 90 1RF ondansetron 4 mg tablet,disintegrating 4 mg PO Q6H PRN (Reason: nausea and vomiting) Qty: 30 0RF Follow Up/Referrals: Marybeth Andrew MD [Primary Care Provider] - Stand Alone Forms: [facility] Info Instructions
--- NOTE | 2023-02-22 20:17 | CRLHL7_ITS ---
For Patients: As a result of the Century Cures Act, medical imaging exams and procedure reports are released immediately into your electronic medical record. You may view this report before your referring provider. If you have questions, please contact your health care provider. INDICATION: Bilateral leg pain TECHNIQUE: Ultrasound venous duplex bilateral lower extremities. Real-time armstrong-scale (B mode 2D), color Doppler, and spectral Doppler imaging were performed with compression and augmentation. COMPARISON: None FINDINGS: Deep veins: The bilateral common femoral, femoral, popliteal, and visualized calf veins are fully compressible, demonstrate normal color flow, and normal response to mechanical augmentation. The Duplex Doppler waveforms are normal in appearance. Superficial veins: The visualized greater saphenous and superficial veins of the leg and calf are unremarkable. Soft tissue: No masses or cysts are identified. No adenopathy is seen. IMPRESSION: 1. No sonographic evidence of acute deep venous thrombosis seen in either lower extremities. Dictated by: Baudilio Neves MD @ 02/22/2023 22:49:16 (Electronically Signed)
[2023-02-22] MEDS: LACTATED RINGERS 1000 ML 1,000 ML 500 ML IV (20:26)
[2023-02-22 20:29] LABS: Basophils Absolute Auto 0.02 K/uL (0.00-0.30); Basophils Percent Auto 0.3 % (0.0-3.0); Eosinophils Absolute Auto 0.04 K/uL (0.00-0.50); Eosinophils Percent Auto 0.5 % (0.0-7.0); Hematocrit 41.2 % (33.0-51.0); Hemoglobin* 13.6 gm/dL (12.0-16.0); Immature Granulocytes Abs Auto 0.01 K/uL (0.00-0.30); Immature Granulocytes Pct Auto 0.1 %; Lymphocytes Percent Auto 15.8 % (20-44); Mean Corpuscular HGB Conc 33 gm/dL (32-36); Mean Corpuscular Hemoglobin 30 pg (26-34); Mean Corpuscular Volume 89 fL (80-100); Neutrophils Percent Auto 75.3 % (42.0-72.0); Platelet Count* 189 K/uL (140-440); RDW Coefficient of Variation % 12.7 % (11.5-15.5); Red Blood Count 4.61 m/uL (4.00-5.20); White Blood Count* 7.47 K/uL (4.50-11.00)
[2023-02-22 20:36] LABS: Slide Review Reflex No
[2023-02-22 20:43] LABS: Albumin* 4.3 g/dL (3.3-5.0); Chloride* 101 mmol/L (96-114); Potassium* 3.4 mmol/L (3.6-5.1); Sodium* 138 mmol/L (135-149)
[2023-02-22 20:45] LABS: Creatinine* 0.4 mg/dL (0.5-1.5); Est. Creatinine Clearance* 209.08; Estimated Glomerular Filt Rate 141 ml/min
[2023-02-22 20:46] LABS: Alanine Aminotransferase* 13 U/L (4-35); Alkaline Phosphatase* 63 U/L (40-150); Anion Gap 11 mEq/L (7-15); Aspartate Amino Transferase* 24 U/L (12-35); Blood Urea Nitrogen* 8 mg/dL (5-24); Carbon Dioxide* 26 mmol/L (20-32); Glucose* 94 mg/dL (60-115); Total Protein* 7.5 g/dL (6.0-8.3)
[2023-02-22 20:47] LABS: Calcium* 9.1 mg/dL (8.4-10.6); Magnesium* 1.9 mg/dL (1.5-2.6)
[2023-02-22 21:08] LABS: PCR FLU A Negative PCR FLU A (Negative); PCR FLU B Negative PCR FLU B (Negative); PCR RSV Negative PCR RSV (Negative)
[2023-02-22 21:24] LABS: SARS PCR* Negative SARS-CoV-2 (Negative)
[2023-02-22 22:09] VITALS: TEMP 37.3
[2023-02-22] MEDS: ACETAMINOPHEN 500 MG TABLET 1000 MG PO (22:09)
[2023-02-22 22:24] VITALS: BP 110/74; PULSE 89; RESP 16; TEMP 36.9; O2SAT 98
[2023-02-22 22:25] VITALS: BP 110/74; PULSE 89; RESP 16; TEMP 36.9
== END 2023-02-22 22:25 | disposition home or self-care (01) ==
PROVIDERS: Emergency Provider Family Medicine; PCP Family Medicine
DX: O21.0 Mild hyperemesis gravidarum (principal); R53.83 Other fatigue; M79.605 Pain in left leg; M79.604 Pain in right leg; Z3A.12 12 weeks gestation of pregnancy
CPT/HCPCS: 36415; 80053; 83735; 85025; 87631; 93970; 99284; A9270; J7120

== ENCOUNTER 2023-03-08 16:56 | Observation (INO) | payer BC, SELFPAY ==
[2023-03-08] VITALS (10 sets, daily range): BP systolic 111–134; BP diastolic 57–93; PULSE 101–122; RESP 16–18; TEMP 36.6–37; O2SAT 96–100; BMI 21.9; BMI 22.1
--- NOTE | 2023-03-08 17:50 | CRLHL7_ITS ---
For Patients: As a result of the Century Cures Act, medical imaging exams and procedure reports are released immediately into your electronic medical record. You may view this report before your referring provider. If you have questions, please contact your health care provider. Indication: Tachycardia, shortness of breath, 15 weeks Technique: Volumetric multidetector CT images of the chest were obtained after the administration of IV contrast. 95 cc Isovue 370 low osmolar intravenous contrast Comparison: None available. Findings: The thoracic inlet and thyroid gland are unremarkable. The thoracic aorta is nonaneurysmal. There is demonstration of large filling defects within the proximal bilateral upper and lower lobe subsegmental pulmonary arteries. There is mild prominence of the main pulmonary artery. There is no evidence of interventricular septal inversion. There is no mediastinal, hilar or axillary adenopathy. The trachea and bronchi are well aerated without significant bronchiectasis. There is no focal consolidation, effusion or pneumothorax. There is no evidence of pulmonary mass or suspicious pulmonary nodule. The partially visualized upper abdominal viscera are within normal limits. The thoracic vertebral body heights remain intact alignment without significant degenerative change or acute osseous abnormality. Impression: Demonstration of large filling defect seen throughout the bilateral proximal pulmonary arteries consistent with extensive pulmonary emboli. Mild prominence of the main pulmonary artery without definite evidence of intraventricular septal inversion. Findings were discussed with Timothy Castro at 7:10 p.m. March 08, 20[address] Please note that all CT scans at this facility use dose modulation, iterative reconstruction, and/or weight-based dosing when appropriate to reduce radiation dose to as low as reasonably achievable. Dictated by Sushant Ramirez MD @ 03/08/2023 7:13:38 PM (Electronically Signed)
[2023-03-08 18:11] LABS: Basophils Absolute Auto 0.01 K/uL (0.00-0.30); Basophils Percent Auto 0.1 % (0.0-3.0); Eosinophils Absolute Auto 0.08 K/uL (0.00-0.50); Hematocrit 39.8 % (33.0-51.0); Hemoglobin* 13.3 gm/dL (12.0-16.0); Immature Granulocytes Abs Auto 0.01 K/uL (0.00-0.30); Immature Granulocytes Pct Auto 0.1 %; Lymphocytes Percent Auto 13.8 % (20-44); Mean Corpuscular HGB Conc 33 gm/dL (32-36); Mean Corpuscular Hemoglobin 30 pg (26-34); Mean Corpuscular Volume 89 fL (80-100); Monocytes Percent Auto 5.5 % (0.0-11.0); Neutrophils Percent Auto 79.5 % (42.0-72.0); Platelet Count* 230 K/uL (140-440); RDW Coefficient of Variation % 12.6 % (11.5-15.5); Red Blood Count 4.49 m/uL (4.00-5.20); White Blood Count* 8.34 K/uL (4.50-11.00)
[2023-03-08 18:27] LABS: Slide Review Reflex No
--- NOTE | 2023-03-08 19:58 | ED_ITS ---
HPI - General Adult General Chief complaint: Shortness of Breath/Dyspnea Stated complaint: High heart rate, 110-135 Time Seen by Provider: 03/08/23 17:01 History of Present Illness HPI narrative: This 27-year-old female comes in reporting increased heart rate and shortness of breath. This has been present for the past couple weeks. She was seen a couple weeks ago here and had ultrasound of her lower extremities showing no sign of deep venous thrombosis. At that time her heart rate was 96 and today she arrives with resting heart rate 116. She now reports shortness of breath even at rest and certainly with activity. She is 15 weeks . This is not her 1st . She states that she did have a superficial thrombophlebitis during a previous . She is not on any anticoagulants. She is otherwise in good health. Related Data Home Medications Medication Instructions Recorded Confirmed vitamin#30 30 mg iron-10 cap PO .QD 05/26/22 02/22/23 mg iron-folic acid 1 mg-omg3 capsule Previous Rx's Medication Instructions Recorded hydrocortisone 2.5 % topical cream 1 applic AR BID-QID PRN 01/26/23 with perineal applicator hemorrhoids #30 grams (Anusol-HC) ondansetron 4 mg disintegrating 4 mg PO Q6H PRN nausea and 02/11/23 tablet vomiting #30 tabs famotidine 20 mg tablet 20 mg PO QDAY #90 tabs 02/15/23 Allergies Allergy/AdvReac Type Severity Reaction Status Date / Time No Known Allergies Allergy Unknown Verified 03/08/23 18:29 Review of Systems Status of ROS: Reports: 10 or more systems reviewed and unremarkable except as noted in History and below Narrative: Constitutional: No fevers, no weight gain or loss. Eyes: No discharge. No vision changes. HENT: No congestion, no sore throat, no ear pain. Cardiovascular: No chest pain, no palpitations. Respiratory: No wheezes, no cough. Shortness of breath as described above. Gastrointestinal: No abdominal pain, no vomiting, no diarrhea. Genitourinary: No dysuria, no hematuria. Musculoskeletal: Normal range of motion. Skin: No rashes, no pruritis. Neurological: No dizziness, weakness, sensory change, speech change. Endo/Heme/Allergies: No bruising or bleeding. No polydipsia. Pysch: no suicidality, no anxiety, no insomnia. All other systems reviewed and are negative. [facility] Medical History Low back pain ?M54.50 - Low back pain, unspecified (ICD-10) History of delivery ?Z87.51 - Personal history of pre-term labor (ICD-10) Obstetric vaginal laceration with second degree perineal laceration ?O70.1 - Second degree perineal laceration during delivery (ICD-10) Inflamed external hemorrhoid ?K64.4 - Residual hemorrhoidal skin tags (ICD-10) Chest wall pain ?R07.89 - Other chest pain (ICD-10) Surgical History History of third molar tooth extraction (2015) ?K08.409 - Partial loss of teeth, unspecified cause, unspecified class (ICD- 10) Family History Mother Hx of blood clots Family/Other Heart disease Breast cancer, Onset Age: 90 Paternal Grandmother Pulmonary hypertension Diabetes Paternal Grandfather Lung cancer Diabetes 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: , 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, 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: never true Smoking Status: Never smoker Do you use any of these nicotine containing products: None Second hand tobacco smoke exposure: No How often do you have a drink containing alcohol: never AUDIT-C Alcohol total score: 0 Non-prescribed substance use: denies use How often does anyone, including family, friends and others, physically hurt you : never How often does anyone, including family, friends and others, insult or talk down to you: never How often does anyone, including family, friends and others, threaten you with harm: never How often does anyone, including family, friends and others, scream or curse at you: never Little interest or pleasure in doing things: not at all Feeling down, depressed, or hopeless: not at all service: No Exam Narrative: Exam Narrative: Constitutional: Well-developed, well-nourished, no acute distress. HEENT: Normocephalic, atraumatic. Neck: Normal range of motion. Nontender. Supple. Heart: Regular. No murmurs. Tachycardia. Intact distal pulses. Lungs: Clear to auscultation. No chest discomfort. No wheezes, rhonchi, or rales. Abdomen: Normal bowel sounds. Nontender. No rebound tenderness. Genitalia: Deferred. Back: No midline tenderness. Normal range of motion. Extremities: Normal range of motion. No injury. Skin: Intact. No rash. Warm. No erythema or pallor. Neurologic: No altered sensation. No weakness. Alert and oriented. Psychiatric: No suicidality. No anxiety or depression. No insomnia. Nursing notes and vitals signs are reviewed. Const: Vital Signs, click to edit/add: Vital Signs - 24 hr 03/08/23 16:58 03/08/23 18:57 Temperature 97.8 F Pulse Rate [Pulse Oximeter] 116 H 101 H Respiratory Rate 16 18 Blood Pressure [Ri ght Upper Arm] 111/70 117/74 Pulse Oximetry 100 100 Oxygen Delivery Me thod Room Air Room Air Course Vital Signs Vital signs: Initial Vital Signs Temperature 97.8 F 03/08/23 16:58 Temperature Source Temporal Artery Scan 03/08/23 16:58 Pulse Rate 116 H 03/08/23 16:58 Respiratory Rate 16 03/08/23 16:58 Blood Pressure 111/70 03/08/23 16:58 Blood Pressure Mean 83 03/08/23 16:58 Blood Pressure Position Supine 03/08/23 16:58 Pulse Oximetry 100 03/08/23 16:58 Oxygen Delivery Method Room Air 03/08/23 16:58 Vital Signs Temperature 97.8 F 03/08/23 16:58 Pulse Rate 116 H 03/08/23 16:58 Respiratory Rate 16 03/08/23 16:58 Blood Pressure 111/70 03/08/23 16:58 Pulse Oximetry 100 03/08/23 16:58 Oxygen Delivery Method Room Air 03/08/23 16:58 Temperature 97.8 F 03/08/23 16:58 Pulse Rate 101 H 03/08/23 18:57 Respiratory Rate 18 03/08/23 18:57 Blood Pressure 117/74 03/08/23 18:57 Pulse Oximetry 100 03/08/23 18:57 Oxygen Delivery Method Room Air 03/08/23 18:57 Medications Administered Medications: Generic Name Dose Route Start Last Admin Trade Name Freq PRN Reason Stop Dose Admin Enoxaparin Sodium 60 mg 03/08/23 19:40 03/08/23 20:10 Enoxaparin 60 Mg/0.6 Ml Inj SUBCUT 03/08/23 19:41 60 mg ONCE ONE Administration Medical Decision Making MDM Narrative Medical decision making narrative: This patient comes in with tachycardia and oximetry on room air at 100%. She is 15 weeks and has no report of any lower extremities or upper extremity swelling or unilateral pain. She does not have a prior history of deep venous thrombosis. She states that she was tested for Leiden factor 5 previously and it was a negative results. Her symptoms today are suspicious for pulmonary embolism. An IV was established and labs are acquired. Her D-dimer returns markedly elevated at 7.9. CT scan of the chest with IV contrast shows extensive proximal clots in all lobes of the lung. There is mild sign of dilation of the pulmonary artery but no sign of right heart strain. I did consult with Dr. Munson, paraprofessional aide teacher at [facility] [employer], to consider whether or not a mechanical removal of the clot is indicated. She was reporting that the studies are not real conclusive for benefit versus risk and for this patient it seems with reassuring vital signs and no significant right heart strain that this should not be done. The patient did receive a subcuticular injection of Lovenox 60 mg. Her troponin returns at 0.08. With a bump in her troponin it is recommended by both Dr. Ibarra and Dr. Munson to admit her into the hospital. I did speak with Loreta Mata, the hospitalist on-call, who agrees to this plan. Lab Data Labs: Lab Results 03/08/23 Range/Units 18:00 WBC 8.34 (4.50-11.00) K/uL RBC 4.49 (4.00-5.20) m/uL Hgb 13.3 (12.0-16.0) gm/dL Hct 39.8 (33.0-51.0) % MCV 89 (80-100) fL MCH 30 (26-34) pg MCHC 33 (32-36) gm/dL RDW Coeff of Erasmo 12.6 (11.5-15.5) % Plt Count 230 (140-440) K/uL Neut % (Auto) 79.5 H (42.0-72.0) % Lymph % (Auto) 13.8 L (20-44) % [place] % (Auto) 5.5 (0.0-11.0) % Eos % (Auto) 1.0 (0.0-7.0) % Baso % (Auto) 0.1 (0.0-3.0) % Neut # (Auto) 6.60 (1.7-7.0) K/uL Lymph # (Auto) 1.20 (0.90-2.90) K/uL [place] # (Auto) 0.50 (0.00-0.90) K/UL Eos # (Auto) 0.08 (0.00-0.50) K/uL Baso # (Auto) 0.01 (0.00-0.30) K/uL Abs Immat Gran (auto) 0.01 (0.00-0.30) K/uL Imm/Tot Granulo (auto) 0.1 % D-Dimer Quant (PE/DVT) 7.90 H (0.00-0.50) ug/ml Troponin I 0.08 H* (0.01-0.04) ng/mL Discharge Plan Discharge Clinical Impression: , Pulmonary embolism Patient Disposition: Admitted As Observation Condition: Unchanged Prescriptions: No Action PNV #[id number] 30 mg iron-10 mg iron-1 mg capsule PO .QD hydrocortisone [Anusol-HC] 2.5 % cream with perineal applicator 1 applic AR BID-QID PRN (Reason: hemorrhoids) Qty: 30 0RF famotidine 20 mg tablet 20 mg PO QDAY Qty: 90 1RF ondansetron 4 mg tablet,disintegrating 4 mg PO Q6H PRN (Reason: nausea and vomiting) Qty: 30 0RF Follow Up/Referrals: Marybeth Andrew MD [Primary Care Provider] -
[2023-03-08 20:01] LABS: Troponin I* 0.08 ng/mL (0.01-0.04)
[2023-03-08] MEDS: ENOXAPARIN 60 MG/0.6 ML INJ SUBCUT (20:10)
--- NOTE | 2023-03-08 20:20 | ED.NURSE ---
pt report given to oncsusana RN
--- NOTE | 2023-03-08 20:22 | ED.NURSE ---
Assumed care of pt @ 2019. Report received from previous nurse, Barby Sanders. All questions answered.
--- NOTE | 2023-03-08 20:52 | P.IMHP_ITS ---
Hospitalist- H&P: HPI History of Present Illness Date Seen: 03/08/23 Chief complaint: High heart rate, 110-135 Narrative: Gabrielle Mcmahon is a 27 year old female past medical history significant for low back pain, headaches, history of delivery, currently 15 weeks is admitted to the medical floor from the ED for overnight observation in setting of acute pulmonary emboli. Patient presented to the ED with complaint of increased heart rate and shortness of breath. She had similar symptoms 2 weeks ago, was evaluated in the ED, hydrated with IVF, and had an ultrasound of her lower extremities which at that time showed no sign of DVT. She tells me those symptoms completely resolved, returning again just this morning. She contacted her OBGYN who recommended she come to the ED again. Patient is currently 15 weeks . . Last OB visit was on 02/22/2023. Previous history of superficial thrombophlebitis during 1st . Currently, patient reports mild headache but is hungry and has not had much to eat or drink in the past few hours. Denies dizziness. Has some chest discomfort which she relates to the clots and rapid heart rate. No recent fevers or chills. Has had bouts of nausea vomiting in but currently well managed. Denies active heartburn, not currently using Famotidine. No change in stools or urination. ED provider discussed with Dawn graduate recruiter and Dr. Ibarra, ROAD PATCHER, both recommending admission for overnight observation, cardiac monitoring, trending troponins, echocardiogram. Review of Systems Narrative: REVIEW OF SYSTEMS: Complete review of systems performed and negative unless otherwise stated in HPI or below. [facility] Medical History Low back pain ?M54.50 - Low back pain, unspecified (ICD-10) History of delivery ?Z87.51 - Personal history of pre-term labor (ICD-10) Obstetric vaginal laceration with second degree perineal laceration ?O70.1 - Second degree perineal laceration during delivery (ICD-10) Inflamed external hemorrhoid ?K64.4 - Residual hemorrhoidal skin tags (ICD-10) Chest wall pain ?R07.89 - Other chest pain (ICD-10) Surgical History History of third molar tooth extraction (2016) ?K08.409 - Partial loss of teeth, unspecified cause, unspecified class (ICD- 10) Family History Mother Hx of blood clots Family/Other Heart disease Breast cancer, Onset Age: 90 Paternal Grandmother Pulmonary hypertension Diabetes Paternal Grandfather Lung cancer Diabetes 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: , 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, 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: never true Smoking Status: Never smoker Do you use any of these nicotine containing products: None Second hand tobacco smoke exposure: No How often do you have a drink containing alcohol: never AUDIT-C Alcohol total score: 0 Non-prescribed substance use: denies use How often does anyone, including family, friends and others, physically hurt you : never How often does anyone, including family, friends and others, insult or talk down to you: never How often does anyone, including family, friends and others, threaten you with harm: never How often does anyone, including family, friends and others, scream or curse at you: never Little interest or pleasure in doing things: not at all Feeling down, depressed, or hopeless: not at all service: No Meds Home Medications and Allergies Home Medications Medication Instructions Recorded Confirmed Type vitamin#30 30 mg iron-10 cap PO .QD 05/26/22 02/22/23 History mg iron-folic acid 1 mg-omg3 capsule Allergies Allergy/AdvReac Type Severity Reaction Status Date / Time No Known Allergies Allergy Unknown Verified 03/08/23 18:29 Exam Narrative: Exam Narrative: PHYSICAL EXAM General: Pleasant, conversant, NAD HEENT: Normocephalic, atraumatic, sclera white, EOMI, oral mucosa moist Cardiovascular: RRR, mild tachycardia. S1S2. No pitting edema Pulmonary: CTA bilaterally without rhonchi, rales, expiratory wheezes. No dyspnea Neurological: Alert, answering questions appropriately, cranial nerves intact, no focal findings Extremities: No gross joint deformity or swelling. AROMI. Neurovascularly intact Skin: Warm, dry. Const: Vital Signs, click to edit/add: Vital Signs - 24 hr 03/08/23 16:58 03/08/23 18:57 Temperature 97.8 F Pulse Rate [Pulse Oximeter] 116 H 101 H Respiratory Rate 16 18 Blood Pressure [Ri ght Upper Arm] 111/70 117/74 Pulse Oximetry 100 100 Oxygen Delivery Me thod Room Air Room Air Hospitalist - H&P: Result Labs Labs: Short CBC 03/08/23 Range/Units 18:00 WBC 8.34 (4.50-11.00) K/uL Hgb 13.3 (12.0-16.0) gm/dL Hct 39.8 (33.0-51.0) % Plt Count 230 (140-440) K/uL Cardiac Enzymes 03/08/23 Range/Units 18:00 Troponin I 0.08 H* (0.01-0.04) ng/mL Imaging CT scan - chest: Attestation: I have reviewed the pertinent imaging results. Radiologist's impression: Findings: The thoracic inlet and thyroid gland are unremarkable. The thoracic aorta is nonaneurysmal. There is demonstration of large filling defects within the proximal bilateral upper and lower lobe subsegmental pulmonary arteries. There is mild prominence of the main pulmonary artery. There is no evidence of interventricular septal inversion. There is no mediastinal, hilar or axillary adenopathy. The trachea and bronchi are well aerated without significant bronchiectasis. There is no focal consolidation, effusion or pneumothorax. There is no evidence of pulmonary mass or suspicious pulmonary nodule. The partially visualized upper abdominal viscera are within normal limits. The thoracic vertebral body heights remain intact alignment without significant degenerative change or acute osseous abnormality. Impression: Demonstration of large filling defect seen throughout the bilateral proximal pulmonary arteries consistent with extensive pulmonary emboli. Mild prominence of the main pulmonary artery without definite evidence of intraventricular septal inversion. Assessment and Plan Assessment and plan (1) Pulmonary embolism: Problem comment: -CT shows bilateral proximal pulmonary arteries with extensive pulmonary emboli. No evidence of right heart strain reported -received 1st dose Lovenox in ED, continue with therapeutic dosing, enoxaparin 1 milligram/kilogram q.12 hours in -cardiac monitor technician -echocardiogram ordered Status: Acute (2) : Problem comment: -15 weeks per report, Status: Acute (3) Elevated troponin: Problem comment: -0.08, likely ischemic in setting of acute pulmonary emboli -continue to trend, repeat pending on admission Status: Acute Plan CODE: Full VTE PPX: Therapeutic Lovenox Disposition: Observation, likely discharge tomorrow if remains stable, pending echo
--- NOTE | 2023-03-08 21:15 | W.PC.EDHO ---
Primary Language: Preferred Language: Orientation Status: [x] Alert & Oriented [] Slight Confusion [] Known Dx Dementia Transfers By: [x] Assist of 1 [] Assist of 2 [] Lift Active Medications Discontinued Medications Generic Name Dose Route Start Last Admin Trade Name Isaiah PRN Reason Stop Dose Admin Enoxaparin Sodium 60 mg 03/08/23 19:40 03/08/23 20:10 Enoxaparin 60 Mg/0.6 Ml Inj SUBCUT 03/08/23 19:41 60 mg ONCE ONE Administration Description of Symptoms ED Triage Present Problem a couple weeks felt like had to take deep breaths, Description feeling that way starting last night and more noticeable this morning. called OB , told to go to ED. chai september 03. Female History Hx Last Menstrual Period CHAI 09/04/23 Patient Yes Patient Yes Pain Pain Description [Chest] Dull, Achy Pain Description [Chest] Heaviness Pain Intensity [Chest] 2 Pain Intensity [Chest] 3 Pain Scale Used [Chest] Numeric (1 - 10) IV Insertion/Site Date of IV Line Insertion [ 03/08/23 Right Antecubital] Oxygen Administration Pulse Oximetry 100 Pulse Oximetry 100 Oxygen Delivery Method Room Air Oxygen Delivery Method Room Air
--- NOTE | 2023-03-08 21:23 | ED.NURSE ---
Report called to M/S nurse Sanchez. All questions answered. Pt to transfer to room 262. Patient in stable condition upon transfer. All belongings sent with patient upon transfer.
[2023-03-08 22:07] LABS: Troponin I* 0.05 ng/mL (0.01-0.04)
[2023-03-09] VITALS (10 sets, daily range): BP systolic 112–130; BP diastolic 62–80; PULSE 74–114; RESP 14–18; TEMP 36.9–37; O2SAT 96–99
[2023-03-09 01:02] LABS: Troponin I* 0.03 ng/mL (0.01-0.04)
[2023-03-09 06:58] LABS: Hematocrit 38.4 % (33.0-51.0); Mean Corpuscular HGB Conc 34 gm/dL (32-36); Mean Corpuscular Hemoglobin 30 pg (26-34); Mean Corpuscular Volume 89 fL (80-100); Platelet Count* 236 K/uL (140-440)
[2023-03-09 07:13] LABS: Chloride* 106 mmol/L (96-114); Sodium* 136 mmol/L (135-149)
[2023-03-09 07:15] LABS: Creatinine* 0.4 mg/dL (0.5-1.5); Est. Creatinine Clearance* 209.08; Estimated Glomerular Filt Rate 141 ml/min
[2023-03-09 07:16] LABS: Anion Gap 4 mEq/L (7-15); Blood Urea Nitrogen* 7 mg/dL (5-24); Calcium* 8.9 mg/dL (8.4-10.6); Carbon Dioxide* 26 mmol/L (20-32); Glucose* 86 mg/dL (60-115)
[2023-03-09 07:20] LABS: Troponin I* 0.02 ng/mL (0.01-0.04)
[2023-03-09 07:28] LABS: Slide Review Reflex No
--- NOTE | 2023-03-09 08:07 | PC.NURSE ---
Patient pleasant, alert and oriented. Independent in room with ambulation. Reported having a headache upon admission. Headache went away during the night. Reports having SOB that comes and goes and needing to take deep breaths at times. Denied any other discomfort. HR 122 upon arrival. HR 89-112 during shift. stayed through the night. ?
[2023-03-09] MEDS: ENOXAPARIN 60 MG/0.6 ML INJ SUBCUT ×2 (08:47→20:58)
--- NOTE | 2023-03-09 12:42 | PM.OBCN1 ---
OB - CN: HPI Date of Consult Date Seen: 03/09/23 Patient: [facility] Patient Consult date: 03/09/23 Requesting Physician: Halley Avila MD Primary Care Provider: Marybeth Andrew MD Consult Narrative Narrative: OF NOT, PATIENT NOT SEEN OB CONSULT WAS NOT REQUESTED - Note written for documentation of care and communication between providers. Ms. Mcmahon is a 27yo at 14w3d GA by LMP who is admitted to the hospital in the setting of large bilateral PEs. Her is otherwise chronic dyspnea, leg pain, migraines without aura nausea, GERD. She did experience superficial thrombophlebitis in her last . She was last seen on 02/22/23 by Elizabeth Salgado, sent to the ED in the setting of bilateral leg pain, nausea/vomiting. There, she had LE US and EKG which was negative for DVTs and EKG was within normal limits. She returned to the ED on 03/08 with worsening dyspnea and tachycardia, subsequently found to have bilateral proximal PE and mildly elevated troponins. Dr. Ibarra was made aware of her on the evening of 03/08, recommended hospitalization but was not formally consulted. I was contacted by IM hospitalist today, to ensure Ob service was aware of her admission. They report no acute Ob concerns at this time, thus we mutually agree inpatient Ob consultation is not required. They report she continues to be tachycardic, but her troponins have normalized. She is on therapeutic ACO with lovenox. I explained our recommendations would be to provide the same care that a non- patient would receive, given her early GA. Her acute PE and ACO certainly put her at increased risk with regard to her , where outpatient Maternal Medicine consultation would be recommended. Plan to place this order today. In the interim, we will defer all management of her PE and anticoagulation to her medicine providers. I asked about duration of her therapeutic anticoagulation, where they mentioned it would include through the duration of her . I would encourage at least 3 months of therapeutic anticoagulation before transitioning to prophylactic through duration of the until 6 weeks , but will ultimately defer this decision to her Medicine/MFM providers. Placement of an IVC filter could be considered if longer duration of therapeutic ACO is required. Recommend outpatient Hematology consult for evaluation for comprehensive evaluation of hypercoagulable disorders. Disposition is to remain inpatient today, her inpatient providers are considering dismissal tomorrow. Next Ob visit is scheduled for 03/22/23. We will see if this can be moved up (within 1 week of hospital dismissal) and to occur with an MD in the interim. I would be happy to see Ms. Mcmahon and formally consult if any acute OB conditions were to arise - vaginal bleeding, leaking of fluids, acute abdominal/pelvic pain. History History 2 Elective abortions Para 1 Spontaneous abortions Hx # Term Pregnancies Ectopic pregnancies Hx # Pregnancies 1 Multiple births Number of Living Children 1 Past Pregnancies Del. Date GA/Weeks Outcome Route wt Inf Gender Labor Lgth Anesthesia Location Provider Compli 07/18/21 35 live - vaginal delivery 7 lb 3 oz Female 2 hrs none [facility] Medical History Low back pain ?M54.50 - Low back pain, unspecified (ICD-10) History of delivery ?Z87.51 - Personal history of pre-term labor (ICD-10) Obstetric vaginal laceration with second degree perineal laceration ?O70.1 - Second degree perineal laceration during delivery (ICD-10) Inflamed external hemorrhoid ?K64.4 - Residual hemorrhoidal skin tags (ICD-10) Chest wall pain ?R07.89 - Other chest pain (ICD-10) Surgical History History of third molar tooth extraction (2016) ?K08.409 - Partial loss of teeth, unspecified cause, unspecified class (ICD-10) Family History Mother Hx of blood clots Family/Other Heart disease Breast cancer, Onset Age: 90 Paternal Grandmother Pulmonary hypertension Diabetes Paternal Grandfather Lung cancer Diabetes 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: , 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, 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 Very rare alcohol use Exercise 3 times a week, HIIT 30 minutes What is your current living situation?: I presently have a place to live Problems where you live: no known problems Problems where you live details: N/A In the past 12 months, utilities in danger of being shut off: no In past 12 months, lack of transportation kept you from medical appts, meetings, work, or getting things needed for daily living: no In the past 12 mos, have been you worried that your food would run out before you had money to buy more?: never true In the past 12 mos, the food you bought just didn't last and you didn't have money to buy more?: never true Smoking Status: Never smoker Do you use any of these nicotine containing products: None Second hand tobacco smoke exposure: No How often do you have a drink containing alcohol: never AUDIT-C Alcohol total score: 0 Non-prescribed substance use: denies use How often does anyone, including family, friends and others, physically hurt you: never How often does anyone, including family, friends and others, insult or talk down to you: never How often does anyone, including family, friends and others, threaten you with harm: never How often does anyone, including family, friends and others, scream or curse at you: never Little interest or pleasure in doing things: not at all Feeling down, depressed, or hopeless: not at all service: No Meds Home Medications and Allergies Home Medications Medication Instructions Recorded Confirmed Type vitamin#30 30 mg iron-10 1 cap PO DAILY 05/26/22 03/09/23 History mg iron-folic acid 1 mg-omg3 capsule famotidine 20 mg tablet 20 mg PO DAILY PRN 03/09/23 03/09/23 History Allergies Allergy/AdvReac Type Severity Reaction Status Date / Time No Known Allergies Allergy Unknown Verified 03/08/23 18:29 OB - H&P: Exam Physical Exam: Vital signs: Temp Pulse Resp BP Pulse Ox O2 Del Method 98.4 F 110 H 16 117/70 99 Room Air 03/09/23 11:20 03/09/23 11:20 03/09/23 11:20 03/09/23 11:20 03/09/23 11:20 03/09/23 11:20 OB - Results Labs Labs: Short CBC 03/08/23 03/09/23 Range/Units 18:00 05:57 WBC 8.34 6.50 (4.50-11.00) K/uL Hgb 13.3 13.0 (12.0-16.0) gm/dL Hct 39.8 38.4 (33.0-51.0) % Plt Count 230 236 (140-440) K/uL BMP 03/09/23 05:57 Sodium 136 Potassium 4.0 Chloride 106 Carbon Dioxide 26 BUN 7 Creatinine 0.4 L Glucose 86 Calcium 8.9 Cardiac Enzymes 03/08/23 03/08/23 03/09/23 Range/Units 18:00 21:35 00:15 Troponin I 0.08 H* 0.05 H 0.03 (0.01-0.04) ng/mL 03/09/23 Range/Units 05:57 Troponin I 0.02 (0.01-0.04) ng/mL OB - CN: A/P Assessment and Plan (1) Pulmonary embolism: Problem details: -CT shows bilateral proximal pulmonary arteries with extensive pulmonary emboli. No evidence of right heart strain reported -received 1st dose Lovenox in ED, continue with therapeutic dosing, enoxaparin 1 milligram/kilogram q.12 hours in -monitor technician -echocardiogram ordered Status: Acute (2) : Problem details: -15 weeks per report, Status: Acute (3) Elevated troponin: Problem details: -0.08, likely ischemic in setting of acute pulmonary emboli -continue to trend, repeat pending on admission Status: Acute
--- NOTE | 2023-03-09 16:24 | PM.IMPN1 ---
Progress Note: A&P Assessment and plan (1) Pulmonary embolism: Problem details: -CT shows bilateral proximal pulmonary arteries with extensive pulmonary emboli. No evidence of right heart strain reported -received 1st dose Lovenox in ED, continue with therapeutic dosing, enoxaparin 1 milligram/kilogram q.12 hours in -cardiac cath technician, with electrocardiograms unchanged from 02/22/2023 -echocardiogram preliminarily demonstrates mildly dilated pulmonary artery Status: Acute (2) : Problem details: -15 weeks per report, Status: Acute (3) Elevated troponin: Problem details: -0.08, likely ischemic in setting of acute pulmonary emboli -has normalized since admission Status: Acute Plan 1. Reviewed impression with patient and . 2. Answered their questions. 3. Reviewed basics of deep venous thrombosis and pulmonary embolism. 4. Reviewed basics of anticoagulation therapy including risks and benefits associated there with. Recommended patient wear bracelet or necklace indicating she is anticoagulated as long as she is being anticoagulated. 5. Call and discuss case with our OBGYN on-call physician, Dr. Moreno. She will help facilitate patient referral for maternal medicine consultation. 6. Patient has appointment with her bait digger end of the month, she will keep that. 7. Continue with efforts to educate patient on how to administer enoxaparin. 8. Reviewed actual CT images with the patient and of her large burden bilateral pulmonary emboli. Answered their questions. Time Spent With Patient Total time spent: 60 mid Subjective Date Seen: 03/09/23 Interval history: Hospital day 2. 27-year-old woman 15 weeks gestational presents with symptomatic large burden bilateral pulmonary emboli. Troponin I initially moderately elevated at 0.08, and has since normalized. Preliminary echo demonstrates mildly dilated pulmonary artery, otherwise unremarkable. Remains tachycardic at rest with heart rates slowly dropping now closer to 100, previously was between 110 and 120. Tolerating enoxaparin including learning how to administer toward herself. No longer having dyspnea at rest. Less dyspnea with exertion. Denies chest heaviness. Does not feel near syncopal, dizzy, lightheaded, or orthostatic. Denies nausea vomiting. Acknowledges anxiety about her situation and condition. Exam Narrative: Exam Narrative: No acute distress. Vision and hearing are normal. Alert and oriented to self, place, time situation. Friendly, articulate, cooperative. Appropriately anxious. Lungs are actually clear to auscultation without wheezing, rhonchi, rales. Heart tones with regular rhythm, normal S1-S2, without murmur, gallop, rub. Tachycardia arrest with rates around 100. And with active bowel sounds, soft, nontender. Extremities without edema. Independent transfer, station, and gait. Skin is warm, dry, intact. Const: Vital Signs, click to edit/add: Vital Signs - 24 hr 03/08/23 16:58 03/08/23 18:57 03/08/23 19:35 Temperature 97.8 F Pulse Rate Pulse Rate [Pulse Oximeter] 116 H 101 H Respiratory Rate 16 18 Blood Pressure 134/93 H Blood Pressure [Le ft Arm] Blood Pressure [Ri ght Arm] Blood Pressure [Ri ght Upper Arm] 111/70 117/74 Pulse Oximetry 100 100 Oxygen Delivery Me thod Room Air Room Air 03/08/23 20:02 03/08/23 20:32 03/08/23 21:02 Temperature Pulse Rate Pulse Rate [Pulse Oximeter] Respiratory Rate Blood Pressure 127/76 118/82 115/70 Blood Pressure [Le ft Arm] Blood Pressure [Ri ght Arm] Blood Pressure [Ri ght Upper Arm] Pulse Oximetry Oxygen Delivery Me thod 03/08/23 21:33 03/08/23 21:33 03/08/23 21:46 Temperature 98.6 F 98.6 F Pulse Rate Pulse Rate [Pulse Oximeter] 122 H 122 H Respiratory Rate 16 16 16 Blood Pressure Blood Pressure [Le ft Arm] Blood Pressure [Ri ght Arm] 134/57 L 134/57 L Blood Pressure [Ri ght Upper Arm] Pulse Oximetry 96 96 96 Oxygen Delivery Nm thod Room Air Room Air Room Air 03/08/23 22:00 03/08/23 22:30 03/09/23 01:44 Temperature Pulse Rate 100 Pulse Rate [Pulse Oximeter] 113 H Respiratory Rate 16 Blood Pressure Blood Pressure [Le ft Arm] Blood Pressure [Ri ght Arm] Blood Pressure [Ri ght Upper Arm] Pulse Oximetry 99 Oxygen Delivery Me thod Room Air 03/09/23 02:25 03/09/23 07:07 03/09/23 07:46 Temperature 98.6 F 98.6 F Pulse Rate 106 H Pulse Rate [Pulse Oximeter] 92 113 H Respiratory Rate 18 14 Blood Pressure Blood Pressure [Le ft Arm] 112/62 125/78 Blood Pressure [Ri ght Arm] Blood Pressure [Ri ght Upper Arm] Pulse Oximetry 96 98 Oxygen Delivery Me thod Room Air Room Air 03/09/23 07:46 03/09/23 11:20 03/09/23 15:13 Temperature 98.4 F Pulse Rate 114 H Pulse Rate [Pulse Oximeter] 113 H 110 H Respiratory Rate 16 Blood Pressure Blood Pressure [Le ft Arm] 117/70 Blood Pressure [Ri ght Arm] Blood Pressure [Ri ght Upper Arm] Pulse Oximetry 99 Oxygen Delivery Me thod Room Air 03/09/23 15:50 03/09/23 15:50 Temperature 98.5 F Pulse Rate Pulse Rate [Pulse Oximeter] 105 H 105 H Respiratory Rate 18 Blood Pressure Blood Pressure [Le ft Arm] 122/80 Blood Pressure [Ri ght Arm] Blood Pressure [Ri ght Upper Arm] Pulse Oximetry 97 Oxygen Delivery Me thod Room Air Labs Labs: Laboratory Results - last 24 hr 03/08/23 03/08/23 03/09/23 18:00 21:35 00:15 WBC 8.34 RBC 4.49 Hgb 13.3 Hct 39.8 MCV 89 MCH 30 MCHC 33 RDW Coeff of Erasmo 12.6 Plt Count 230 Neut % (Auto) 79.5 H Lymph % (Auto) 13.8 L [place] % (Auto) 5.5 Eos % (Auto) 1.0 Baso % (Auto) 0.1 Neut # (Auto) 6.60 Lymph # (Auto) 1.20 [place] # (Auto) 0.50 Eos # (Auto) 0.08 Baso # (Auto) 0.01 Abs Immat Gran (auto) 0.01 Imm/Tot Granulo (auto) 0.1 D-Dimer Quant (PE/DVT) 7.90 H Sodium Potassium Chloride Carbon Dioxide Anion Gap BUN Creatinine Estimated Creat Clear Estimated GFR Glucose Calcium Troponin I 0.08 H* 0.05 H 0.03 03/09/23 05:57 WBC 6.50 RBC 4.30 Hgb 13.0 Hct 38.4 MCV 89 MCH 30 MCHC 34 RDW Coeff of Erasmo Plt Count 236 Neut % (Auto) Lymph % (Auto) [place] % (Auto) Eos % (Auto) Baso % (Auto) Neut # (Auto) Lymph # (Auto) [place] # (Auto) Eos # (Auto) Baso # (Auto) Abs Immat Gran (auto) Imm/Tot Granulo (auto) D-Dimer Quant (PE/DVT) Sodium 136 Potassium 4.0 Chloride 106 Carbon Dioxide 26 Anion Gap 4 L BUN 7 Creatinine 0.4 L Estimated Creat Clear 209.08 Estimated GFR 141 Glucose 86 Calcium 8.9 Troponin I 0.02
--- NOTE | 2023-03-09 19:03 | PC.NURSE ---
Pt alert and oriented. Pt had no complaints of pain. VSS; but tachycardic.?Pt independent in room. Pt took a shower this am. EKG performed per hospitalist order. Pt had some complaints of SOB when eating breakfast; midafternoon (1530) and around 17 when Pt took shower; incidence reported to hospitalist. Pt had ECHO done at 1130am. Pt?s QTC am 0.47 and QTC pm 0.49; reported to hospitalist.?
[2023-03-10 00:05] VITALS: BP 107/63; PULSE 85; RESP 18; TEMP 36.8; O2SAT 99
[2023-03-10 03:00] VITALS: BP 106/61; PULSE 81; RESP 20; TEMP 36.8; O2SAT 98
[2023-03-10 07:00] VITALS: PULSE 89
[2023-03-10 08:28] VITALS: BP 103/67; PULSE 85; TEMP 36.8; O2SAT 100
[2023-03-10] MEDS: ENOXAPARIN 60 MG/0.6 ML INJ SUBCUT (08:45)
--- NOTE | 2023-03-10 08:49 | PC.NURSE ---
Patient pleasant, alert and oriented. Ambulated independently in room. Denied pain. Reported she had an episode of SOB at approximately 1930. She has otherwise denied any discomfort. VSS.
[2023-03-10 08:58] VITALS: BP 103/67; PULSE 85; RESP 20; TEMP 36.8; O2SAT 100
[2023-03-10 11:00] VITALS: BP 106/64; PULSE 84; RESP 16; TEMP 37; O2SAT 98
--- NOTE | 2023-03-10 12:42 | PC.NURSE ---
VSS. RA. Denies pain. On tele. Some SOB on exertion, occasionally tachycardic. Eating well, drinking well. Voided x3. Last BM yesterday, 03/10. Showered. Up independently in room. Pt education on Lovenox given. Pt discharged to home w/ spouse @ ~1910. Nani Velasco RN
--- NOTE | 2023-03-10 16:32 | P.DS_ITS ---
DS: Providers Provider Date Seen: 03/10/23 Date of admission: 03/08/23 21:24 Primary care physician: Marybeth Andrew MD Admitting Clinician: Loreta Holguin PA-C Attending Physician on discharge: Ha Puentes MD Date of Discharge: 03/10/23 DS: Diagnosis Discharge Diagnosis (1) Pulmonary embolism: Status: Acute Problem details: -CT shows bilateral proximal pulmonary arteries with extensive pulmonary emboli. 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 -continue with followup with her obstetric clinician. DS: Summary Hospital Course Hospital Course: History of present illness from admission history and physical: ?Gabrielle Mcmahon is a 27 year old female past medical history significant for low back pain, headaches, history of delivery, currently 15 weeks is admitted to the medical floor from the ED for overnight observation in setting of acute pulmonary emboli. Patient presented to the ED with complaint of increased heart rate and shortness of breath. She had similar symptoms 2 weeks ago, was evaluated in the ED, hydra wilfredo with IVF, and had an ultrasound of her lower extremities which at that time showed no sign of DVT. She tells me those symptoms completely resolved, returning again just this morning. She contacted her OBGYN who recommended she come to the ED again. Patient is currently 15 weeks . . Last OB visit was on 02/22/2023. Previous history of superficial thrombophlebitis during 1st . Currently, patient reports mild headache but is hungry and has not had much to eat or drink in the past few hours. Denies dizziness. Has some chest discomfort which she relates to the clots and rapid heart rate. No recent fevers or chills. Has had bouts of nausea vomiting in but currently well managed. Denies active heartburn, not currently using Famotidine. No change in stools or urination.? Patient's condition stabilize throughout her short hospitalization. Over the course of 24-36 hours her sinus tachycardia normalized and her heart rate at time of discharge at rest was 80-85 beats per minute. Still has minimal symptoms of dyspnea with exertion but much improved from when she 1st presented. Has been able to demonstrate ability to inject her Serra appearing herself. Follow-up as specified, including calling return to the hospital if her condition warrants. Patient and agree. Status at Discharge Functional status at discharge: independent ambulation Overall status at discharge: patient is progressing back to baseline Time Spent with Patient Time attestation: Total time spent providing and/or coordinating discharge services: Time spent: Greater than 30 minutes Exam Narrative: Exam Narrative: No acute distress. Vision and hearing are normal. Alert and oriented to self, place, time situation. Friendly, articulate, cooperative. Appropriately anxious. Lungs are actually clear to auscultation without wheezing, rhonchi, rales. Heart tones with regular rhythm, normal S1-S2, without murmur, gallop, rub. Normal sinus rhythm on telemetry. No longer tachycardic. And with active bowel sounds, soft, nontender. Extremities without edema. Independent transfer, station, and gait. Skin is warm, dry, intact. Const: Vital Signs, click to edit/add: Vital Signs - 24 hr 03/09/23 20:00 03/09/23 21:33 03/09/23 23:00 Temperature 98.5 F 98.5 F Pulse Rate 74 Pulse Rate [Pulse Oximeter] 94 94 Respiratory Rate 17 18 Blood Pressure [Le ft Arm] 130/65 130/65 Blood Pressure [Ri ght Arm] Pulse Oximetry 98 98 Oxygen Delivery Me thod Room Air Room Air 03/10/23 00:05 03/10/23 03:00 03/10/23 07:00 Temperature 98.2 F 98.2 F Pulse Rate 89 Pulse Rate [Pulse Oximeter] 85 81 Respiratory Rate 18 20 Blood Pressure [Le ft Arm] 106/61 Blood Pressure [Ri ght Arm] 107/63 Pulse Oximetry 99 98 Oxygen Delivery Me thod Room Air Room Air 03/10/23 08:28 03/10/23 08:58 03/10/23 11:00 Temperature 98.2 F 98.2 F 98.6 F Pulse Rate Pulse Rate [Pulse Oximeter] 85 85 84 Respiratory Rate 20 16 Blood Pressure [Le ft Arm] 103/67 103/67 106/64 Blood Pressure [Ri ght Arm] Pulse Oximetry 100 100 98 Oxygen Delivery Me thod Room Air Room Air Room Air Documenting provider has reviewed patient's vital signs: yes DS: Data Imaging CT scan - chest: Attestation: I have reviewed the pertinent imaging results. Radiologist's impression: Demonstration of large filling defect seen throughout the bilateral proximal pulmonary arteries consistent with extensive pulmonary emboli. Mild prominence of the main pulmonary artery without definite evidence of intraventricular septal inversion. Discharge Plan Discharge Disposition: Home, Self-Care Date of Admission: 03/08/23 21:24 Attending Provider on Discharge: Ha Puentes Primary Care Provider: Marybeth Andrew Condition: Improved Anticipated Discharge Date/Time: 03/10/23 11:30 Discharge Medications: New enoxaparin [Lovenox] 60 mg/0.6 mL Syringe 60 mg subcut Q12H 30 Days Qty: 36 0RF Continued PNV #[id number] acid-omega3 30 mg iron-10 mg iron-1 mg capsule 1 cap PO DAILY hydrocortisone [Anusol-HC] 2.5 % cream with perineal applicator 1 applic NC BID-QID PRN (Reason: hemorrhoids) Qty: 30 0RF famotidine 20 mg tablet 20 mg PO DAILY PRN ondansetron 4 mg tablet,disintegrating 4 mg PO Q6H PRN (Reason: nausea and vomiting) Qty: 30 0RF Discharge Orders: Discharge Order (Routine); Ordered 03/10/23 Ordered By: Ha Puentes Patient Education: Enoxaparin (By injection) (Lovenox), Pulmonary Embolism (DC), Venous Thromboembolism (DC) Additional Instructions: 1. Keep appointments with your obstetric clinicians, including your new appointment on Tuesday; 2. Work with your obstetric clinicians to establish a Maternal Medicine appointment soon; 3. No work until Tuesday, with no restrictions or limitations at this time, but you may have some limitations prescribed to you by your obstetric clinicians in the future; 4. Call or return to the hospital if you have questions or concerns; 5. Use bracelet or necklace that indicates you are anticoagulated, as long as you are anticoagulated. Activity Level: No Restrictions and Activity as Tolerated Discharge Diet: Regular Follow Up Appointments: Marybeth Andrew MD [Primary Care Provider] - Forms: [employer] Info Instructions
== END 2023-03-10 12:30 | disposition home or self-care (01) ==
LOC: ED 20:33 → MEDSURG 21:26
PROVIDERS: Admitting Provider Physician Assistant; Emergency Provider Emergency Medicine Emergency Medical Services; PCP Family Medicine; Visit Provider Family Medicine
DX: I26.99 Other pulmonary embolism without acute cor pulmonale (principal); R79.89 Other specified abnormal findings of blood chemistry; R51.9 Headache, unspecified; R00.0 Tachycardia, unspecified; R06.02 Shortness of breath; M54.50 Low back pain, unspecified; K21.9 Gastro-esophageal reflux disease without esophagitis; K08.409 Partial loss of teeth, unspecified cause, unspecified class; Z87.51 Personal history of pre-term labor; Z3A.15 15 weeks gestation of pregnancy
CPT/HCPCS: 36415; 71275; 80048; 84484; 85025; 85027; 85379; 93005; 93306; 96372; 99284; 99285; G0378; J1650; Q9967

== ENCOUNTER 2023-03-18 15:45 | Emergency (ER) | payer BC, SELFPAY ==
[2023-03-18 15:51] VITALS: BP 103/68; PULSE 83; RESP 16; TEMP 36.8; O2SAT 99; BMI 21.9
--- NOTE | 2023-03-18 16:15 | CRLHL7_ITS ---
For Patients: As a result of the Century Cures Act, medical imaging exams and procedure reports are released immediately into your electronic medical record. You may view this report before your referring provider. If you have questions, please contact your health care provider. INDICATION: Leg calf pain. TECHNIQUE: Ultrasound venous duplex lower left extremity. Compression venous exam was performed using armstrong-scale, color Doppler, and spectral Doppler analysis. COMPARISON: Bilateral lower extremity DVT study February 22, 2023. FINDINGS: Deep veins: Sonographic imaging demonstrates the left common femoral, deep femoral, superficial femoral, popliteal, posterior tibial, peroneal and the contralateral right common femoral veins to be fully compressible with normal color Doppler blood flow. Superficial veins: Greater saphenous vein is fully compressible. No popliteal cyst. IMPRESSION: Normal left lower extremity venous ultrasound. Dictated by Yovany Quintanilla MD @ 03/18/2023 5:25:06 PM (Electronically Signed)
--- NOTE | 2023-03-18 16:16 | ED.GENADULT ---
HPI - General Adult General Chief complaint: Nausea/Vomiting Stated complaint: 16 weeks preg-blood clots in lungs, pain in left l Time Seen by Provider: 03/18/23 15:47 History of Present Illness HPI narrative: This 27-year-old female comes in reporting some pain in her left lower leg. She is taking Lovenox during because of extensive clot in all 5 lobes of her lungs. She was admitted last week into the hospital for a couple days at which time Lovenox was started and her heart rate which was elevated has now normalized. She called her OB clinician today and was instructed to come in here because of this pain in her left lower leg. She does not have any swelling. She does not describe any recent injury event. She arrives with normal vital signs and states that she does not feel short of breath. Related Data Home Medications Medication Instructions Recorded Confirmed vitamin#30 30 mg iron-10 1 cap PO DAILY 05/26/22 03/16/23 mg iron-folic acid 1 mg-omg3 capsule Previous Rx's Medication Instructions Recorded hydrocortisone 2.5 % topical cream 1 applic LA BID-QID PRN 01/26/23 with perineal applicator hemorrhoids #30 grams (Anusol-HC) enoxaparin 60 mg/0.6 mL 60 mg (0.6 mL) subcut Q12H 30 days 03/16/23 subcutaneous syringe (Lovenox) #36 mL Allergies Allergy/AdvReac Type Severity Reaction Status Date / Time No Known Allergies Allergy Unknown Verified 03/18/23 15:54 Review of Systems Status of ROS: Reports: 10 or more systems reviewed and unremarkable except as noted in History and below Narrative: Constitutional: No fevers, no weight gain or loss. Eyes: No discharge. No vision changes. HENT: No congestion, no sore throat, no ear pain. Cardiovascular: No chest pain, no palpitations. Respiratory: No shortness of breath, no wheezes, no cough. Gastrointestinal: No abdominal pain, no diarrhea. She has had some recent nausea and vomiting related to her . Genitourinary: No dysuria, no hematuria. Musculoskeletal: Normal range of motion. Discomfort in her left lower leg. Skin: No rashes, no pruritis. Neurological: No dizziness, weakness, sensory change, speech change. Endo/Heme/Allergies: No bruising or bleeding. No polydipsia. Pysch: no suicidality, no anxiety, no insomnia. All other systems reviewed and are negative. PFSH PFSH Medical History Low back pain ?M54.50 - Low back pain, unspecified (ICD-10) History of delivery ?Z87.51 - Personal history of pre-term labor (ICD-10) Obstetric vaginal laceration with second degree perineal laceration ?O70.1 - Second degree perineal laceration during delivery (ICD-10) Inflamed external hemorrhoid ?K64.4 - Residual hemorrhoidal skin tags (ICD-10) Chest wall pain ?R07.89 - Other chest pain (ICD-10) Surgical History History of third molar tooth extraction (2016) ?K08.409 - Partial loss of teeth, unspecified cause, unspecified class (ICD-10) Family History Mother Hx of blood clots Family/Other Heart disease Breast cancer, Onset Age: 90 Paternal Grandmother Pulmonary hypertension Diabetes Paternal Grandfather Lung cancer Diabetes 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: , 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, 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 Very rare alcohol use Exercise 3 times a week, HIIT 30 minutes What is your current living situation?: I presently have a place to live Problems where you live: no known problems Problems where you live details: N/A In the past 12 months, utilities in danger of being shut off: no In past 12 months, lack of transportation kept you from medical appts, meetings, work, or getting things needed for daily living: no In the past 12 mos, have been you worried that your food would run out before you had money to buy more?: never true In the past 12 mos, the food you bought just didn't last and you didn't have money to buy more?: never true Smoking Status: Never smoker Do you use any of these nicotine containing products: None Second hand tobacco smoke exposure: No How often do you have a drink containing alcohol: never How often do you have six or more drinks on one occasion: Never AUDIT-C Alcohol total score: 0 Non-prescribed substance use: denies use How often does anyone, including family, friends and others, physically hurt you: never How often does anyone, including family, friends and others, insult or talk down to you: never How often does anyone, including family, friends and others, threaten you with harm: never How often does anyone, including family, friends and others, scream or curse at you: never Little interest or pleasure in doing things: not at all Feeling down, depressed, or hopeless: not at all service: No Exam Narrative: Exam Narrative: Constitutional: Well-developed, well-nourished, no acute distress. HEENT: Normocephalic, atraumatic. Neck: Normal range of motion. Nontender. Supple. Heart: Regular. No murmurs. Normal rate. Intact distal pulses. Lungs: Clear to auscultation. No chest discomfort. No wheezes, rhonchi, or rales. Abdomen: Normal bowel sounds. Nontender. No rebound tenderness. Genitalia: Deferred. Back: No midline tenderness. Normal range of motion. Extremities: Normal range of motion. No injury. Left leg has diffuse pain in the lower calf. There is no sign of swelling or injury. Skin: Intact. No rash. Warm. No erythema or pallor. Neurologic: No altered sensation. No weakness. Alert and oriented. Psychiatric: No suicidality. No anxiety or depression. No insomnia. Nursing notes and vitals signs are reviewed. Const: Vital Signs, click to edit/add: Vital Signs - 24 hr 03/18/23 15:51 Temperature 98.2 F Pulse Rate [Right Pulse Oximeter] 83 Respiratory Rate 16 Blood Pressure [Ri ght Upper Arm] 103/68 Pulse Oximetry 99 Oxygen Delivery Me thod Room Air Course Vital Signs Vital signs: Initial Vital Signs Temperature 98.2 F 03/18/23 15:51 Temperature Source Oral 03/18/23 15:51 Pulse Rate 83 03/18/23 15:51 Pulse Rhythm Regular 03/18/23 15:51 Pulse Strength 3+ Normal 03/18/23 15:51 Respiratory Rate 16 03/18/23 15:51 Blood Pressure 103/68 03/18/23 15:51 Blood Pressure Mean 79 03/18/23 15:51 Blood Pressure Position Sitting 03/18/23 15:51 Pulse Oximetry 99 03/18/23 15:51 Oxygen Delivery Method Room Air 03/18/23 15:51 Vital Signs Temperature 98.2 F 03/18/23 15:51 Pulse Rate 83 03/18/23 15:51 Respiratory Rate 16 03/18/23 15:51 Blood Pressure 103/68 03/18/23 15:51 Pulse Oximetry 99 03/18/23 15:51 Oxygen Delivery Method Room Air 03/18/23 15:51 Temperature 98.2 F 03/18/23 15:51 Pulse Rate 83 03/18/23 15:51 Respiratory Rate 16 03/18/23 15:51 Blood Pressure 103/68 03/18/23 15:51 Pulse Oximetry 99 03/18/23 15:51 Oxygen Delivery Method Room Air 03/18/23 15:51 Medical Decision Making MDM Narrative Medical decision making narrative: This patient comes in with some report of discomfort in her left lower leg in the lower portion near her ankle and lower calf. She is currently taking Lovenox because of extensive pulmonary emboli. She does arrive with normal vital signs. She states that she does not have any shortness of breath at rest but does so when exerting herself. She is able to maintain her normal activities nevertheless. An ultrasound of her left lower extremities obtained here and shows no evidence of deep venous thrombosis. The patient is okay to return home to continue current plans. She is taking Lovenox subcuticularly twice a day. Discharge Plan Discharge Clinical Impression: , Pulmonary embolism Patient Disposition: Home, Self-Care Condition: Stable Additional Instructions: Continue current plans. Follow up with MD as scheduled return if worsening. Prescriptions: No Action PNV #[id number] 30 mg iron-10 mg iron-1 mg capsule 1 cap PO DAILY hydrocortisone [Anusol-HC] 2.5 % cream with perineal applicator 1 applic LA BID-QID PRN (Reason: hemorrhoids) Qty: 30 0RF enoxaparin [Lovenox] 60 mg/0.6 mL syringe 60 mg subcut Q12H 30 Days Qty: 36 3RF Follow Up/Referrals: Marybeth Andrew MD [Primary Care Provider] - Stand Alone Forms: [facility] Info Instructions
--- OUTSIDE RECORDS SUMMARY | 2023-03-18 16:46 | XMS_ITS | Clinical Summary ---
Author Name Unknown Organization [facility] Address [place], [place] [address] Care Team Providers Care Standard Machine Stitcher Name Role Phone Marybeth Andrew MD Primary Care Provider + Allergies No known active allergies Medications No known medications Encounters Date Type Department Care Team Description 03/09/2023 11:00 AM LABEL MAKER Ancillary Procedure Formerly Named [facility] [address] [place] [address] 03/09/2023 Travel from Last 3 Months 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 Tobacco Use Types Packs/Day Years Used Date Smoking Tobacco: Never Smokeless Tobacco: Never Tobacco Cessation:Counseling Given: No Social Connections Answer Date Recorded Frequency of Communication with Friends and Fami ly Not on file 08/26/2022 Sex and Gender Information Value Date Recorded Sex Assigned at Not on file Gender Identity Not on file Sexual Orientation Not on file Obstetrics History Last Filed Vital Signs Vital Sign Reading Time Taken Comments Blood Pressure 109/63 08/20/2022 3:59 PM CDT Pulse 80 08/20/2022 3:59 PM CDT Temperature - - Respiratory Rate - - Oxygen Saturation 100% 08/20/2022 3:59 PM CDT Inhaled Oxygen Concentration - - Weight 68.9 kg (151 lb 12.8 oz) 08/20/2022 3:59 PM CDT Height - - Body Mass Index - - Plan of Treatment Health Maintenance Due Date Last Done Comments COVID-19 vaccine series (#1) 1997 HPV series for age 9-26 (1 - 2-dose series) 2008 Tdap 2008 Depression screening for age 12+ 2009 HIV for age 15-65 2012 BMI (ht and wt on same day) for age 18+ 05/13/2015 Hepatitis C screening for ag e 18-79 05/13/2015 Tetanus booster 2017 Influenza for age 9-49 10/22/2022 Pap test for age 21-65 12/12/2023 12/11/2020 Pneumococcal series for age 6-64 Aged Out No longer eligible based on patient's age to complete this topic Procedures Procedure Name Priority Date/Time Associated Diagnosis Comments ECHO TTE COMPLETE WO CONTRAST Routine 03/09/2023 12:28 PM LABEL MAKER -induced hypertension with pulmonary edema from Last 3 Months Results * ECHO TTE COMPLETE WO CONTRAST (03/09/2023 12:28 PM LABEL MAKER) AORTIC VALVE MEAN PG 3 mmHg EJECTION FRACTION 62 % PEAK TR VELOCITY 2.7 m/s LVEDD 4.5 cm Anatomical Region Laterality Modality Ultrasound 03/09/2023 11:2 8 AM LABEL MAKER Narrative 03/09/2023 1:44 PM LABEL MAKER ECHOCARDIOGRAM GABRIELLE C[place]AND ? Accession#: ?? [id number] : ?1995 27 years Study Date: ?? 03/09/2023 11:28:46 AM Gender: F ?BP: ? 125/78 mmHg Height: 170.00 cm ?BSA: ?1.73 m? ? ? Weight: 63.00 kg ? Tech: ? MTS ? Referring MD: LORETA STEARNS Site: ? [facility] Reading Location: [facility] Patient Location: Inpatient. Procedure: 2D, Color Doppler and Spectral Doppler. Indication for study: -induced hypertension with pulmonary edema Cardiac Rhythm: Regular.Study quality: Imaging limitations: This study was subject to imaging limitations due to a prominent lung artifact. Final Impressions: 1. Normal left ventricular size, normal wall thickness, normal global systolic function, calculated EF of 62 %. 2. Right ventricular cavity size is normal, global systolic RV function is normal. 3. No significant valve disease detected. 4. The inferior vena cava is normal sized, respiratory size variation greater than 50%. Chamber Sizes and Function Normal left ventricular size, normal wall thickness, normal global systolic function, calculated EF of 62 %. Left atrial size is normal. Right ventricular cavity size is normal, global systolic RV function is normal. RV wall thickness is normal. The right atrium is normal. Right atrial volume index is 16 ml/m? ? ?. Right atrial area is 13 cm? ? ?. The pulmonary artery is not well visualized. The sinus of Valsalva is normal sized. The ascending aorta is normal sized. Valves, RV Pressures and Diastolic Function The aortic valve is normal in structure and trileaflet, no stenosis and no regurgitation. The mitral valve is normal in structure, trace mitral regurgitation. Normal diastolic function. The tricuspid valve is normal in structure. Tricuspid regurgitation is mild regurgitation. The tricuspid regurgitant velocity is 2.7 m/s, the estimated right ventricular systolic pressure is 29 mmHg plus right atrial pressure. The pulmonic valve is normal. Trace pulmonary regurgitation. Masses, Effusion, Shunts There is no pericardial effusion. The inferior vena cava is normal sized, respiratory size variation greater than 50%. No left to right shunting was detected by limited color flow Doppler interrogation of the interatrial septum. MEASUREMENTS AND CALCULATIONS 2-D Measurements and LV Function: LVID (d) 4.5 cm Planimetered EF 62 % LVID (s) 2.9 cm LV FS% (2D) ? 35 % IVS (d) ??0.9 cm LVOT diameter ?? 2.1 cm LVPW (d) 0.9 cm HR ?86 bpm Ao Sinus 3.0 cm LA Vol index ?18 ml/m2 Asc Ao ?? 2.7 cm RA Vol index ?16 ml/m2 LA ? 3.0 cm RA area ? 13 cm?RV Max 4C (d) ?? 2.9 cm Diastology: Mitral E Peak 0.5 m/s A Peak 0.4 m/s E/A ?1.2 DT ? 132 msec Aortic Valve: Vmax ? 1.1 m/s ??ESTIVEN (V) ?? 3.09 cm? ? ? VTI ?0.19 m ?? ESTIVEN (I) ?? 3.06 cm? ? ? LVOT V max 1.0 m/s ??Max PG ?5 mmHg LVOT VTI ?? 0.17 m ?? Mean PG ?? 3 mmHg SV ? 59 ml ?Dim Index 0.88 SV index ?? 34 ml/m? ? ? CO ?5.1 l/min ?CI ?3.0 l/min/m? ? ? Mitral Valve: MVA ?5.7 cm? ? ? MV P 1/2 38 msec Tricuspid Valve and estimated PA pressures: TR Vmax 2.7 m/s TR maxG 29 mmHg Pulmonic Valve: PIEDV 1.8 m/s . This study was interpreted by an [facility] accredited facility. CC: [facility] ([facility]) [facility]. ??Final ?? Procedure Note Bismark Mcguire MD - 03/09/2023 ECHOCARDIOGRAM GABRIELLE C[place]AND : 1995 27 years Study Date: 03/09/2023 11:28:46 AM Gender: F BP: 125/78 mmHg Height: 170.00 cm BSA: 1.73 m? ? ? Weight: 63.00 kg Tech: [facility] Referring MD: LORETA STEARNS Site: [facility] Reading Location: [facility] Patient Location: Inpatient. Procedure: 2D, Color Doppler and Spectral Doppler. Indication for study: -induced hypertension with pulmonaryedema Cardiac Rhythm: Regular.Study quality: Imaging limitations: This study was subject to imaging limitations due toa prominent lung artifact. Final Impressions: 1. Normal left ventricular size, normal wall thickness, normal globalsystolic function, calculated EF of 62 %. 2. Right ventricular cavity size is normal, global systolic RV functionis normal. 3. No significant valve disease detected. 4. The inferior vena cava is normal sized, respiratory size variationgreater than 50%. Chamber Sizes and Function Normal left ventricular size, normal wall thickness, normal globalsystolic function, calculated EF of 62 %. Left atrial size is normal.Right ventricular cavity size is normal, global systolic RV function isnormal. RV wall thickness is normal. The right atrium is normal. Rightatrial volume index is 16 ml/m? ? ?. Right atrial area is 13 cm? ? ?. Thepulmonary artery is not well visualized. The sinus of Valsalva is normalsized. The ascending aorta is normal sized. Valves, RV Pressures and Diastolic Function The aortic valve is normal in structure and trileaflet, no stenosis and noregurgitation. The mitral valve is normal in structure, trace mitralregurgitation. Normal diastolic function. The tricuspid valve is normal instructure. Tricuspid regurgitation is mild regurgitation. The tricuspidregurgitant velocity is 2.7 m/s, the estimated right ventricular systolicpressure is 29 mmHg plus right atrial pressure. The pulmonic valve isnormal. Trace pulmonary regurgitation. Masses, Effusion, Shunts There is no pericardial effusion. The inferior vena cava is normal sized,respiratory size variation greater than 50%. No left to right shunting wasdetected by limited color flow Doppler interrogation of the interatrialseptum. MEASUREMENTS AND CALCULATIONS 2-D Measurements and LV Function: LVID (d) 4.5 cm Planimetered EF 62 % LVID (s) 2.9 cm LV FS% (2D) 35 % IVS (d) 0.9 cm LVOT diameter 2.1 cm LVPW (d) 0.9 cm HR 86 bpm Ao Sinus 3.0 cm LA Vol index 18 ml/m2 Asc Ao 2.7 cm RA Vol index 16 ml/m2 LA 3.0 cm RA area 13 cm? ? ? RV Max 4C (d) 2.9 cm Diastology: Mitral E Peak 0.5 m/s A Peak 0.4 m/s E/A 1.2 DT 132 msec Aortic Valve: Vmax 1.1 m/s ESTIVEN (V) 3.09 cm? ? ? VTI 0.19 m ESTIVEN (I) 3.06 cm? ? ? LVOT V max 1.0 m/s Max PG 5 mmHg LVOT VTI 0.17 m Mean PG 3 mmHg SV 59 ml Dim Index 0.88 SV index 34 ml/m? ? ? CO 5.1 l/min CI 3.0 l/min/m? ? ? Mitral Valve: MVA 5.7 cm? ? ? MV P 1/2 38 msec Tricuspid Valve and estimated PA pressures: TR Vmax 2.7 m/s TR maxG 29 mmHg Pulmonic Valve: PIEDV 1.8 m/s . This study was interpreted by an [facility] accredited facility. CC: [facility] (med records) [facility]. Final Loreta Stearns PA ECHO ORD from Last 3 Months Care Teams Standard Machine Stitcher Relationship Specialty Start Date End Date Marybeth Andrew MD [address] [place] [address] PCP - General Family Practice 08/20/22
--- OUTSIDE RECORDS SUMMARY | 2023-03-18 16:46 | XMS_ITS ---
Author Name Unknown Organization [facility] Address [address] [place] [address] Care Team Providers Care Housecleaner Floor Name Role Phone Unavailable Unavailable Unavailable Surgery Details Not on file Complications Check Surgery Details section. Procedure Estimated Blood Loss Check Surgery Details section. Procedure Findings Check Surgery Details section. Procedure Specimens Taken Check Surgery Details section.
--- OUTSIDE RECORDS SUMMARY | 2023-03-18 16:46 | XMS_ITS | Clinical Summary ---
Author Name Unknown Organization [facility] Address [address] [place] [address] Care Team Providers Care Electric Motor Repairman Name Role Phone Elsewhere, Pcp Primary Care Provider Unavailabl e Source Comments Patient records contain information from all sites at [facility]. For routine questions regarding patient records, call [phone] during business hours, M-F 8:00 AM - 5:00 PM Central Time. Record requests for emergency care only can be directed to [phone] at any time.[facility] Allergies No known active allergies Medications Medication Sig Dispensed Refills Start Date End Date Status mehgeii-Mr-zjoa-FA (VINATE ONE) 60 mg iron-1 mg per tablet Take 1 tablet by mouth daily. 0 Active TENS unit and electrodes (Cefaly) combo pack 1 Units daily as needed (headache). 1 each 0 02/24/2022 Active Active Problems Problem Noted Date Diagnosed Date Migraine Headache 02/24/2022 Family History Medical History Relation Name Comments Sleep apnea Father Ant Arnold Migraines Mother Geena Arnold Lung cancer Paternal Grandfather Michael Arnold Smoked Diabetes Paternal Grandmother Annalise Arnold Relation Name Status Comments Father Ant Arnold Mother Geena Arnold Paternal Grandfather Michael Arnold Paternal Grandmother Annalise Arnold 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 Tobacco Use Types Packs/Day Years Used Date Smoking Tobacco: Never Smokeless Tobacco: Never Alcohol Use Standard Drinks/Week Comments Yes 0 (1 standard drink = 0.6 oz pur e alcohol) Maybe 3 times a month Humiliation, Afraid, Rape, and Kick questionnair e Answer Date Recorded Within the last year, have y ou been afraid of your partner or ex-partner? No 02/21/2022 Within the last year, have y ou been humiliated or emotionally abused in other ways by your partner or ex-partner? No Within the last year, have y ou been kicked, hit, slapped, or otherwise physically hurt by your partner or ex-partner? No 02/21/2022 Within the last year, have y ou been raped or forced to have any kind of sexual activity by your partner or ex-partner? No 02/21/2022 Social Connection and Isolat ion Panel [NHANES] Answer Date Recorded In a typical week, how many times do you talk on the phone with family, friends, or neighbors? More than three times a week 02/21/2022 How often do you get togethe r with friends or relatives? More than three times a week 02/21/2022 How often do you attend [facility] or mandaeism services? More than 4 times per year 02/21/2022 Do you belong to any clubs o r organizations such as anabaptism groups, unions, fraternal or athletic groups, or school groups? Yes 02/21/2022 How often do you attend meet ings of the clubs or organizations you belong to? 1 to 4 times per year 02/21/2022 Are you , , di vorced, , never , or living with a partner? 02/21/2022 AUDIT-C Answer Date Recorded Q1: How often do you have a drink containing alc ohol? Monthly or less 02/21/2022 Q2: How many drinks containi ng alcohol do you have on a typical day when you are drinking? 1 or 2 02/21/2022 Q3: How often do you have si x or more drinks on one occasion? Never 02/21/2022 Overall Financial Resource Strain (CARDIA) Answe r Date Recorded How hard is it for you to pa y for the very basics like food, housing, medical care, and heating? Not hard at all 02/21/2022 [employer] [place] of Occupat ional Health - Occupational Stress Questionnaire Answer Date Recorded Do you feel stress - tense, restless, nervous, or anxious, or unable to sleep at night because your mind is troubled all the time - these days? To some extent 02/21/2022 Exercise Vital Sign Answer Date Recorde d On average, how many days pe r week do you engage in moderate to strenuous exercise (like a brisk walk)? 3 days 02/21/2022 On average, how many minutes do you engage in exercise at this level? 20 min 02/21/2022 Hunger Vital Sign Answer Date Recorded Within the past 12 months, y ou worried that your food would run out before you got the money to buy more. Never true 02/21/19 Within the past 12 months, t he food you bought just didn't last and you didn't have money to get more. Never true 02/21/2022 PRAPARE - Transportation Answer Date Re corded In the past 12 months, has l ack of transportation kept you from medical appointments or from getting medications? No 02/2022 In the past 12 months, has l ack of transportation kept you from meetings, work, or from getting things needed for daily living? No 02/21/2022 Housing Stability Vital Sign Answer Isiah e Recorded In the last 12 months, was t here a time when you were not able to pay the mortgage or rent on time? No 02/21/2022 In the last 12 months, how many places have you lived? 1 02/21/2022 In the last 12 months, was t here a time when you did not have a steady place to sleep or slept in a assisted (including now)? No 02/21/2022 Nutrition Answer Date Recorded Nutrition: EVOO Fat Source No 02/21 On average, how many serving s of fruits and vegetables do you eat per day (serving size is equal to 1 cup or approximately the size of a tennis ball)? 2-3 02/21/2022 Dental Answer Date Recorded Dental: Regular Dentist Yes 02/21/19 Employment Answer Date Recorded Employment status Employed and actively working without restrictions 02/21/2022 Education Answer Date Recorded What is the highest level of school you have completed or the highest degree you have received? Bachelor's degree (e.g., BA, AB, BS) 02/21/2022 Sex and Gender Information Value Date Recorded Sex Assigned at Female 02/21/2022 11:00 AM LIBRARY CIRCULATION CLERK Gender Identity Female 02/21/2022 11:00 AM LIBRARY CIRCULATION CLERK Sexual Orientation Straight 02/21/2022 11 :00 AM LIBRARY CIRCULATION CLERK Last Filed Vital Signs Vital Sign Reading Time Taken Comments Blood Pressure - - Pulse - - Temperature 36.6 ??C (97.9 ??F) 02/24/2022 12:[address] Respiratory Rate - - Oxygen Saturation - - Inhaled Oxygen Concentration - - Weight 72.4 kg (159 lb 9.8 oz) 02/24/2022 12:38 PM LIBRARY CIRCULATION CLERK Height 169.7 cm (5' 6.81) 02/24/2022 12:[address] Body Mass Index 25.14 02/24/2022 12:38 PM LIBRARY CIRCULATION CLERK Plan of Treatment Health Maintenance Due Date Last Done Comments Cervical Cancer Screening 1997 HIV Screening 1997 Hepatitis B Vaccines (1 of 3 - 3-dose series) 1997 Hepatitis C Screening 1997 COVID-19 Vaccine (#1) 1997 HPV Vaccines (1 - 2-dose series) 2006 DTaP,Tdap,and Td Vaccines (1 - Tdap) 2016 Influenza Vaccine (#1) 2022 Depression Screening (Annual PHQ-2) 02/21/2023 Pneumococcal vaccine (0-64 years) Aged Out No longer eligible based on patient's age to complete this topic Care Teams Electric Motor Repairman Relationship Specialty Start Date End Date Elsewhere, Pcp PCP - General Internal Medicine 02/24/22
--- OUTSIDE RECORDS SUMMARY | 2023-03-18 16:46 | XMS_ITS | Referral Summary ---
Author Name Unknown Organization [facility] Address [address] [place] [address] Care Team Providers Care Trust And Estates Attorney Name Role Phone Elsewhere, Pcp Primary Care Provider Unavailabl e Source Comments Patient records contain information from all sites at [facility]. For routine questions regarding patient records, call [phone] during business hours, M-F 8:00 AM - 5:00 PM Central Time. Record requests for emergency care only can be directed to [phone] at any time.[facility] Allergies No known active allergies Medications Medication Sig Dispensed Refills Start Date End Date Status jhmetib-Th-lmvx-FA (VINATE ONE) 60 mg iron-1 mg per tablet Take 1 tablet by mouth daily. 0 Active TENS unit and electrodes (Cefaly) combo pack 1 Units daily as needed (headache). 1 each 0 02/24/2022 Active Active Problems Problem Noted Date Diagnosed Date Migraine Headache 02/24/2022 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 Tobacco Use Types Packs/Day Years [...] week 02/21/2022 How often do you attend chur or rastafarian services? More than 4 times per year 02/21/2022 Do you belong to any clubs o r organizations such as hoahaoism groups, unions, fraternal or athletic groups, or [...] and heating? Not hard at all 02/21/2022 [facility] of Occupat ional Health - Occupational Stress [...] place to sleep or slept in a group home (including now)? No 02/21/2022 Nutrition Answer Date [...] Sex Assigned at Female 02/21/2022 11:00 AM CHILDREN'S LIBRARIAN Gender Identity Female 02/21/2022 11:00 AM CHILDREN'S LIBRARIAN Sexual Orientation Straight 02/21/2022 11 :00 AM CHILDREN'S LIBRARIAN Last Filed Vital Signs Vital Sign Reading Time Taken Comments Blood Pressure - - Pulse - - Temperature 36.6 ??C (97.9 ??F) 02/24/2022 12:[address] Respiratory Rate - - Oxygen Saturation - - Inhaled Oxygen Concentration - - Weight 72.4 kg (159 lb 9.8 oz) 02/24/2022 12:38 PM CHILDREN'S LIBRARIAN Height 169.7 cm (5' 6.81) 02/24/2022 12:[address] Body Mass Index 25.14 02/24/2022 12:38 PM CHILDREN'S LIBRARIAN Plan of Treatment Not on file Care Teams Trust And Estates Attorney Relationship Specialty Start Date End Date Elsewhere, Pcp PCP - General Internal Medicine 02/24/22
== END 2023-03-18 17:23 | disposition home or self-care (01) ==
PROVIDERS: Emergency Provider Emergency Medicine Emergency Medical Services; PCP Family Medicine
DX: O88.212 Thromboembolism in pregnancy, second trimester (principal); Z3A.16 16 weeks gestation of pregnancy
CPT/HCPCS: 93971; 99284

== ENCOUNTER 2023-04-13 10:00 | Outpatient (CLI) | payer BC, SELFPAY | END 2023-04-13 10:01 | disposition home or self-care (01) | PROVIDERS: PCP Family Medicine; Visit Provider Obstetrics & Gynecology | DX: O09.212 Supervision of pregnancy with history of pre-term labor, second trimester (principal) | CPT/HCPCS: 85520 ==

== ENCOUNTER 2023-04-26 13:00 | Outpatient (CLI) | payer BC, SELFPAY ==
--- OUTSIDE RECORDS SUMMARY | 2023-06-13 11:51 | XMS_ITS | Clinical Summary ---
Author Name Unknown Organization [facility] Address [address] [place] [address]. [place] [address] Care Team Providers Care Conventional Underwriter Name Role Phone No Ref-Primary, Physician Primary Care Provider Oleg Aparicio PA-C Unavailable [phone] Ana Oreilly MD Unavailable [phone] Allergies No known active allergies Medications [...] Description 05/31/2023 11:30 AM CDT Office Visit [facility] [address] [facility] [address] [place] [address] Ori Adame MD Encounter for ultrasound to check growth (Primary Dx) 05/31/2023 10:45 AM CDT - 05/31/2023 11:59 PM CDT Hospital Encounter [facility] [place] [address] [facility] [address] [place] [address] Ori Adame MD Encounter for ultrasound to assess growth Discharge Disposition: Home or Self Care 05/31/2023 Travel 05/10/2023 10:00 AM CDT Office Visit [facility] [place] [address] [facility] [address] [place] [address] Ori Adame MD Encounter for follow-up ultrasound of anatomy (Primary Dx); History of delivery, currently ; Encounter for ultrasound to assess growth 05/10/2023 9:28 AM CDT - 05/10/2023 11:59 PM CDT Hospital Encounter [facility] [place] [address] [facility] [address] [place] [phone] Ori Adame MD Pulmonary embolism affecting in second trimester Discharge Disposition: Home or Self Care 05/10/2023 Travel 05/03/2023 1:00 PM CDT Lab [facility] [address] [place] [phone] Pulmonary embolism affecting in second trimester; Family history of blood clots 04/28/2023 1:30 PM CURRENCY MACHINE OPERATOR Office Visit [facility] [address] [place] [phone] Ana Oreilly MD Chan, Ricky Y, RUPAL Pulmonary embolism affecting in second trimester (Primary Dx); Family history of blood clots 04/28/2023 MyC Medical Advice [facility] [place] [address], [place] [address] Carmen Pollack, MAC 04/28/2023 Telephone [facility] [address] [place] [phone] Oleg Aparicio PA-C 04/28/2023 Travel 04/27/2023 Travel 04/12/2023 10:15 AM CURRENCY MACHINE OPERATOR Office Visit [facility] [place] [address] [place] [address] Ana Oreilly MD Pulmonary embolism affecting in second trimester (Primary Dx); History of delivery, currently 04/12/2023 9:11 AM CURRENCY MACHINE OPERATOR - 04/12/2023 11:59 PM CURRENCY MACHINE OPERATOR Hospital Encounter [facility] [place] [address] [place] [phone] Ana Oreilly MD Pulmonary embolism affecting in second trimester; History of delivery, currently Discharge Disposition: Home or Self Care 04/12/2023 Travel 03/24/2023 PRE VISIT [facility] [place] [address] [place] [address] Alma Soriano, RN Ultrasound (L2- Hx bilateral [...] 36.7 ??C (98 ??F) 04/28/2023 1:25 PM CURRENCY MACHINE OPERATOR Respiratory Rate 20 04/12/2023 10:58 AM CURRENCY MACHINE OPERATOR Oxygen Saturation 99% 05/31/2023 11:07 AM CDT Inhaled Oxygen Concentration - - Weight 68.9 kg (152 lb) 04/28/2023 1:25 PM CURRENCY MACHINE OPERATOR Height 170.2 cm (5' 7) 04/28/2023 1:25 PM CURRENCY MACHINE OPERATOR Body Mass Index 23.81 04/28/2023 1:25 PM CURRENCY MACHINE OPERATOR Plan of Treatment Upcoming Encounters Date Type Department Care Team (Late st Contact Info) Description 06/21/2023 9:30 AM CDT Appointment [facility] [address] [facility] [address] [place] [phone] Ori Adame MD [address] [place], [place] [address] 06/21/2023 10:00 AM CDT Office Visit [facility] [address] [facility] [address] [place] [phone] Ori Adame MD [address] [place], [place] [phone] 07/04/2023 2:30 PM CDT Office Visit [facility] [address] [facility] [address] [place] [phone] Oleg Aparicio PA-C [address] [facility] [address] [place], [place] [address] Health Maintenance Due Date Last Done Comments [...] Procedure Name Priority Date/Time Associated Diagnosis Comments [facility] COMPREHENSIVE SINGLE F/U Routine 05/31/2023 11:40 AM CDT Encounter for ultrasound to assess growth [facility] COMPREHENSIVE SINGLE F/U Routine 05/10/2023 10:08 AM [...] ANTI XA LEVEL Routine 04/28/2023 2:27 PM CURRENCY MACHINE OPERATOR Pulmonary embolism affecting in second trimester [facility] US COMPREHENSIVE SINGLE Routine 04/12/2023 10:26 AM CURRENCY MACHINE OPERATOR Pulmonary embolism affecting in second trimester History of delivery, currently HCL PAP SMEAR Routine 07/16/1998 1:18 PM CDT Gynecologic Examination from Last 3 Months or Most Recently Relevant to Health Maintenance Results * [facility] Comprehensive Single F/U (05/31/2023 11:40 AM CDT) [...] ? Study Date: ??05/31/2023 10:49am Pat. NO: ??[id number] ?Referring ??MD: TRISTA MELLO Site: ??[facility] ? Field Evidence Technician: Chanda [facility] : ??1995 ?Age: ?? 28 ----- INDICATION [...] lb 13 ? oz EFW by ?Hadlock ([id number]) Head / Face / Neck Biometry: Government Affairs Director ? 5.7 ? mm CM ?7.7 ? mm ANATOMY ----- The following structures appear normal: Head / Neck ? Cranium. Head size. Head shape. Lateral ventricles. Midline falx. Cavum septi pellucidi. Cerebellum. Cisterna magna. Thalami. Heart / Thorax ?4-chamber view. RVOT view. LVOT view. 3-jbaicd-ukxitbo view. ? Diaphragm. Abdomen ? Stomach. Kidneys. [...] [place] Study Date: 05/31/2023 10:49am Pat. NO: [id number] Referring MD: TRISTA MELLO Site: [facility] Field Evidence Technician: Chanda Lazo RDMS : 1995 Age: 28 [...] 1 lb 13 oz EFW by Hadlock ([id number]-FL) Head / Face / Neck Biometry: Government Affairs Director 5.7 mm CM 7.7 mm ANATOMY ----- The following structures appear normal: Head / Neck Cranium. Head size. Head shape.Lateral ventricles. Midline falx. Cavum septi pellucidi. Cerebellum.Cisterna magna. Thalami. Heart / Thorax 4-chamber view. RVOT view. LVOT view.7-wopqko-ypczerh view. Diaphragm. Abdomen Stomach. Kidneys. Bladder. Spine [...] fluid volume appeared normal. Ori Adame MD [facility] US ORDERABL ES * Cardiolipin [...] [facility] SPECIALTY CORE/PROT/ENDO [facility] Specialty Core/Prot/Endo [address], [address] [place] [address], [facility] * Beta 2 Glycoprotein 1 Antibody IgM (05/03/2023 1:03 PM CDT) Beta 2 Glycoprotein 1 Antibody IgM <2.4 <7.0 U/mL 05/04/2023 10:34 AM CDT SPECIALTY CORE/PROT/END O Comment:Negative Blood BLOOD SPECIMEN / Unknown Venipuncture / Unknown 05/03/2023 1:03 PM CDT 05/03/2023 1:03 PM CDT Oleg Aparicio PA-C LAB - BLOOD ORDERABL ES [facility] SPECIALTY CORE/PROT/ENDO Specialty Core/Prot/Endo [address] [facility], [address] * Beta 2 Glycoprotein 1 Antibody IgG (05/03/2023 1:03 PM CDT) Beta 2 Glycoprotein 1 Antibody IgG <0.8 <7.0 U/mL 05/04/2023 10:34 AM CDT SPECIALTY CORE/PROT/END O Comment:Negative Blood BLOOD SPECIMEN / Unknown Venipuncture / Unknown 05/03/2023 1:03 PM CDT 05/03/2023 1:03 PM CDT Oleg Aparicio PA-C LAB - BLOOD ORDERABL ES Performing Organization Address City/[facility] Co de Phone Number SPECIALTY CORE/PROT/ENDO Specialty Core/Prot/Endo [address] [facility], [address] [place] [address] * Low Molecular Weight Heparin Anti Xa [...] LAB - BLOOD ORDERABL ES U LABORATORY [facility] [address] [facility], [address] [place] [address] * (ABNORMAL) Lupus Anticoagulant Panel (05/03/2023 1:03 [...] of an antiphospholipid syndrome, recommend anticardiolipin and xcuz-4-cltlizkugyn n (IgG and IgM) antibody tests. Recommend [...] UM SPECIAL COAGULATION UM Special Coagulation [address] [facility], [address] [place] [phone], [facility] * [facility] Comprehensive Single (04/12/2023 10:26 AM CURRENCY MACHINE OPERATOR) Anatomical Region Laterality Modality Ultrasound 04/12/2023 9:24 AM CURRENCY MACHINE OPERATOR Impressions 04/12/2023 3:24 PM CURRENCY MACHINE OPERATOR IMPRESSION ----- 1. Barnett intrauterine at [...] long and closed. Narrative 04/12/2023 3:24 PM CURRENCY MACHINE OPERATOR ?Comprehensive ----- Pat. Name: GABRIELLE [place] ? Study Date: ??04/12/2023 9:24am Pat. NO: ??[id number] ?Referring ??MD: TRISTA MELLO Site: ??[facility] ? Field Evidence Technician: Edda Ayala RDMS : ??1995 ?Age: ?? [...] 0 lb 9 ?oz EFW by ?Hadlock ([id number]) Head / Face / Neck Biometry: Government Affairs Director ? 6.4 ? mm CM ?1.7 ? [...] cava. Inferior vena cava. 3-vessel ? view. 9-gzwsku-wjkufep view. Cardiac position. Cardiac size. Cardiac rhythm. [...] [place] Study Date: 04/12/2023 9:24am Pat. NO: [id number] Referring MD: TRISTA MELLO Site: [facility] Field Evidence Technician: Edda Ayala RDMS : 1995 Age: 27 [...] 0 lb 9 oz EFW by Hadlock ([id number]-FL) Head / Face / Neck Biometry: Government Affairs Director 6.4 mm CM 1.7 mm Nasal bone [...] Superior venacava. Inferior vena cava. 3-vessel view. 4-ssfalb-umfiyrp view.Cardiac position. Cardiac size. Cardiac rhythm. Right [...] appears long and closed. Ori Adame MD [facility] US ORDERABL ES * PAP SMEAR (07/16/1998 1:18 PM CDT) Unlabelled R [facility] Biopsy Sent [facility] Source VAG,CERV,E NDOCERV [facility] LMP POST [facility] PARA 3 [facility] 2 [facility] Clinical History DNR [facility] Therapy DNR [facility] Last Pap Diagnosis WITHIN NORMAL LIMITS [facility] PAP Date [id number] [facility] Specimen # DNR [facility] Tissue DNR [facility] Tissue Date DNR [facility] Statement of Adequacy [facility] Comment: SATISFACTORY FOR INTERPRETATION POST MENOPAUSAL PATIENT. ??NO ENDOCERVICAL CELLS SEEN. General Categorization R [facility] Descriptive Diagnosis [facility] Comment: WITHIN NORMAL LIMITS ATROPHIC CELL PATTERN Recommendations DNR [facility] DNR 114,,,,,, [facility] DNR DNR [facility] DNR DNR [facility] DNR DNR [facility] . [facility] Comment: ?PAP SMEARS ARE SUBJECT TO BOTH FALSE NEGATIVE AND FALSE ? POSITIVE RESULTS EVIDENCED BY DATA PUBLISHED IN THE ? MEDICAL LITERATURE. ??YOUR PATIENT'S RESULT SHOULD BE ? INTERPRETED IN THIS CONTEXT, TOGETHER WITH THE PATIENT'S ? HISTORY AND CLINICAL FINDINGS. TESTING LOCATION ? THIS [facility] ? [address] [facility]. [address] ? PHONE NUMBERS FOR CYTOLOGY INQUIRES, INCLUDING SLIDE REQUESTS ? EXT. [id number] ?? EXT. [id number] 07/14/1998 Melony Hernandez MD LABORATORY Performing Organization Address City/State/ZIP Co [place] Phone Number [facility] from Last 3 Months or Most Recently Relevant to Health Maintenance Care Teams Conventional Underwriter Relationship Specialty Start Date End Date No Ref-Primary, Physician PCP - General 03/31/23 Oleg Aparicio, PA-C [address] [facility] [address] [place] [address] Assigned Cancer Care Provider 05/06/23 Ana Oreilly MD [address] [facility] [address] [place] [address] Assigned OBGYN Provider 05/06/23
--- OUTSIDE RECORDS SUMMARY | 2023-06-13 11:51 | XMS_ITS | Referral Summary ---
Author Name Unknown Organization [facility] Address [address] [facility] [place] [address] Care Team Providers Care Chiseler Head Name Role Phone No Ref-Primary, Physician Primary Care Provider Oleg Aparicio PA-C Unavailable [phone] Ana Oreilly MD Unavailable [phone] Encounters Date Type Department Care Team Description 05/31/2023 Travel 05/31/2023 11:30 AM CDT Office Visit [facility] [address] [place] [address] Ori Adame MD Encounter for ultrasound to check growth (Primary Dx) 05/31/2023 10:45 AM CDT - 05/31/2023 11:59 PM CDT Hospital Encounter [facility] [address] [place] [address] Ori Adame MD Encounter for ultrasound to assess growth Discharge Disposition: Home or Self Care 05/10/2023 Travel 05/10/2023 10:00 AM CDT Office Visit [facility] [address] [facility] [address] [place] [address] Ori Adame MD Encounter for follow-up ultrasound of anatomy (Primary Dx); History of delivery, currently ; Encounter for ultrasound to assess growth 05/10/2023 9:28 AM CDT - 05/10/2023 11:59 PM CDT Hospital Encounter [facility] [place] [address] [place] [phone] Ori Adame MD Pulmonary embolism affecting in second trimester Discharge Disposition: Home or Self Care 05/03/2023 1:00 PM CDT Lab [facility] [address] [place] [address] Pulmonary embolism affecting in second trimester; Family history of blood clots 04/28/2023 MyC Medical Advice [facility] [address] [place] [address] Carmen Pollack RN 04/28/2023 Telephone [facility] [address] [place] [address] Oleg Aparicio PA-C 04/28/2023 Travel 04/28/2023 1:30 PM CORPORATE DIRECTOR Office Visit [facility] [address] [facility] [place] [address] Ana Oreilly MD Chan, Ricky Y, PA-C Pulmonary embolism affecting in second trimester (Primary Dx); Family history of blood clots 04/27/2023 Travel 04/12/2023 Travel 04/12/2023 9:11 AM CORPORATE DIRECTOR - 04/12/2023 11:59 PM CORPORATE DIRECTOR Hospital Encounter [facility] [place] [address] [place] [address] Ana Oreilly MD Pulmonary embolism affecting in second trimester; History of delivery, currently Discharge Disposition: Home or Self Care 04/12/2023 10:15 AM CORPORATE DIRECTOR Office Visit [facility] [address] [place] [address] Ana Oreilly MD Pulmonary embolism affecting in second trimester (Primary Dx); History of delivery, currently 03/24/[address] [facility] [address] [place] [address] Alma Soriano, RN Ultrasound (L2- Hx bilateral [...] 36.7 ??C (98 ??F) 04/28/2023 1:25 PM CORPORATE DIRECTOR Respiratory Rate 20 04/12/2023 10:58 AM CORPORATE DIRECTOR Oxygen Saturation 99% 05/31/2023 11:07 AM CDT Inhaled Oxygen Concentration - - Weight 68.9 kg (152 lb) 04/28/2023 1:25 PM CORPORATE DIRECTOR Height 170.2 cm (5' 7) 04/28/2023 1:25 PM CORPORATE DIRECTOR Body Mass Index 23.81 04/28/2023 1:25 PM CORPORATE DIRECTOR Plan of Treatment Upcoming Encounters Date Type Department Care Team (Late st Contact Info) Description 06/21/2023 9:30 AM CDT Appointment [facility] [address] [facility] [address] [place] [phone] Ori Adame MD [address] [place], [place] [address] 06/21/2023 10:00 AM CDT Office Visit [facility] [address] [facility] [address] [place] [phone] Ori Adame MD [address] [place], [place] [address] 07/04/2023 2:30 PM CDT Office Visit [facility] [address] [facility] [address] [place] [phone] Oleg Aparicio PA-C [address] [facility] [address] [place], [place] [address] Procedures Procedure Name Priority Date/Time Associated Diagnosis Comments [facility] US COMPREHENSIVE SINGLE F/U Routine 05/31/2023 11:40 AM CDT Encounter for ultrasound to assess growth [facility] US COMPREHENSIVE SINGLE F/U Routine 05/10/2023 10:08 [...] ANTI XA LEVEL Routine 04/28/2023 2:27 PM CORPORATE DIRECTOR Pulmonary embolism affecting in second trimester [facility] COMPREHENSIVE SINGLE Routine 04/12/2023 10:26 AM CORPORATE DIRECTOR Pulmonary embolism affecting in second trimester History of delivery, currently HCL PAP SMEAR Routine 07/16/1998 1:18 PM CDT Gynecologic Examination from Last 3 Months or Most Recently Relevant to Health Maintenance Results * [facility] Comprehensive Single F/U (05/31/2023 11:40 [...] ? Study Date: ??05/31/2023 10:49am Pat. NO: ??[id number] ?Referring ??MD: TRISTA MELLO Site: ??[facility] ? Certified Low Vision Therapist: Chanda Lazo RDMS : ??1995 ?Age: ?? [...] lb 13 ? oz EFW by ?Hadlock ([id number]) Head / Face / Neck Biometry: Oracle Apex Developer ? 5.7 ? mm CM ?7.7 ? mm ANATOMY ----- The following structures appear normal: Head / Neck ? Cranium. Head size. Head shape. Lateral ventricles. Midline falx. Cavum septi pellucidi. Cerebellum. Cisterna magna. Thalami. Heart / Thorax ?4-chamber view. RVOT view. LVOT view. 4-vfjnnv-akhvoee view. ? Diaphragm. Abdomen ? Stomach. Kidneys. [...] [place] Study Date: 05/31/2023 10:49am Pat. NO: [id number] Referring MD: TRISTA MELLO Site: [facility] Certified Low Vision Therapist: Chanda Lazo RDMS : 1995 Age: 28 [...] 1 lb 13 oz EFW by Hadlock ([id number]) Head / Face / Neck Biometry: Oracle Apex Developer 5.7 mm CM 7.7 mm ANATOMY ----- The following structures appear normal: Head / Neck Cranium. Head size. Head shape.Lateral ventricles. Midline falx. Cavum septi pellucidi. Cerebellum.Cisterna magna. Thalami. Heart / Thorax 4-chamber view. RVOT view. LVOT view.6-mwnosr-srnqrkx view. Diaphragm. Abdomen Stomach. Kidneys. Bladder. Spine [...] fluid volume appeared normal. Ori Adame MD [facility] US ORDERABL ES * Cardiolipin Makenzie IgG [...] UM SPECIALTY CORE/PROT/ENDO UM Specialty Core/Prot/Endo [address] [facility], [address] * Beta 2 Glycoprotein 1 Antibody IgM (05/03/2023 1:03 PM CDT) Beta 2 Glycoprotein 1 Antibody IgM <2.4 <7.0 U/mL 05/04/2023 10:34 AM CDT SPECIALTY CORE/PROT/END O Comment:Negative Blood BLOOD SPECIMEN / Unknown Venipuncture / Unknown 05/03/2023 1:03 PM CDT 05/03/2023 1:03 PM CDT Oleg Aparicio PA-C LAB - BLOOD ORDERABL ES Performing Organization Address City/[facility] Co de Phone Number SPECIALTY CORE/PROT/ENDO Specialty Core/Prot/Endo [address] [facility], [address] * Beta 2 Glycoprotein 1 Antibody IgG (05/03/2023 1:03 PM CDT) Beta 2 Glycoprotein 1 Antibody IgG <0.8 <7.0 U/mL 05/04/2023 10:34 AM CDT SPECIALTY CORE/PROT/END O Comment:Negative Blood BLOOD SPECIMEN / Unknown Venipuncture / Unknown 05/03/2023 1:03 PM CDT 05/03/2023 1:03 PM CDT Oleg Aparicio PA-C LAB - BLOOD ORDERABL ES UM SPECIALTY CORE/PROT/ENDO Specialty Core/Prot/Endo [address] [facility], [address] * Low Molecular Weight Heparin Anti Xa Level (05/03/2023 1:03 PM CDT) Only the most recent of2 resultswithin the time period is included. Anti Xa Low Molecular Weight 0.63 For Reference Range, See Comment IU/mL 05/03/2023 5:11 PM CDT [facility] Blood BLOOD SPECIMEN / Unknown Venipuncture / Unknown 05/03/2023 1:03 PM CDT 05/03/2023 1:[address] [facility] - 05/03/2023 5:11 PM CDT If collected 4-6 hours after administration: Adults: If administered only once daily with a dose of 1.5 mg/k.0-2.0 IU/mL. If administered twice daily with a dose of 1 mg/k.50-1.0 IU/mL. Pediatrics: If administered twice daily: 0.50-1.0 IU/mL. Oleg Aparicio PA-C LAB - BLOOD ORDERABL ES U LABORATORY [facility] [place] Core [facility] [address] [facility] [id number] * (ABNORMAL) Lupus Anticoagulant Panel (05/03/2023 [...] of an antiphospholipid syndrome, recommend anticardiolipin and uxvq-4-dtwzzlnifyx n (IgG and IgM) antibody tests. Recommend [...] ES SPECIAL COAGULATION UM Special Coagulation [address] [facility], [address] [place] [address], [facility] * [facility] Comprehensive Single (04/12/2023 10:26 AM CORPORATE DIRECTOR) Anatomical Region Laterality Modality Ultrasound 04/12/2023 9:24 AM CORPORATE DIRECTOR Impressions 04/12/2023 3:24 PM CORPORATE DIRECTOR IMPRESSION ----- 1. Barnett intrauterine at 19w [...] long and closed. Narrative 04/12/2023 3:24 PM CORPORATE DIRECTOR ?Comprehensive ----- Pat. Name: GABRIELLE [place] ? Study Date: ??04/12/2023 9:24am Pat. NO: ??[id number] ?Referring ??MD: TRISTA MELLO Site: ??[facility] ? Certified Low Vision Therapist: Edda Ayala RDMS : ??1995 ?Age: ?? [...] 0 lb 9 ?oz EFW by ?Hadlock ([id number]) Head / Face / Neck Biometry: Oracle Apex Developer ? 6.4 ? mm CM ?1.7 ? [...] cava. Inferior vena cava. 3-vessel ? view. 1-twulkw-jukdown view. Cardiac position. Cardiac size. Cardiac rhythm. [...] [place] Study Date: 04/12/2023 9:24am Pat. NO: [id number] Referring MD: TRISTA MELLO Site: [facility] Certified Low Vision Therapist: Edda Ayala RDMS : 1995 Age: 27 [...] 0 lb 9 oz EFW by Hadlock ([id number]-FG-FL) Head / Face / Neck Biometry: Oracle Apex Developer 6.4 mm CM 1.7 mm Nasal bone [...] Superior venacava. Inferior vena cava. 3-vessel view. 0-gwdfck-btfqqpr view.Cardiac position. Cardiac size. Cardiac rhythm. Right [...] ----- Thank-you for referring your patient for [facility] consult & ultrasoundassessment. I discussed the findings [...] long and closed. Ori Adame MD G [facility] US ORDERABL ES * PAP SMEAR (07/16/1998 1:18 PM CDT) Unlabelled [facility] Biopsy Sent [facility] Source VAG,CERV,E NDOCERV [facility] LMP POST [facility] PARA 3 [facility] 2 [facility] Clinical History [facility] Last Pap Diagnosis WITHIN NORMAL LIMITS [facility] PAP Date [id number] [facility] Specimen # DNR [facility] Tissue DNR [facility] Tissue Date DNR [facility] Statement of Adequacy [facility] Comment: SATISFACTORY FOR INTERPRETATION POST MENOPAUSAL PATIENT. ??NO ENDOCERVICAL CELLS SEEN. General Categorization DNR [facility] Descriptive Diagnosis [facility] Comment: WITHIN NORMAL LIMITS ATROPHIC CELL PATTERN Recommendations DNR QUES [facility] DNR 114,,,,,, [facility] DNR DNR [facility] DNR DNR [facility] DNR DNR [facility] . [facility] Comment: ?PAP SMEARS ARE SUBJECT TO BOTH FALSE NEGATIVE AND FALSE ? POSITIVE RESULTS EVIDENCED BY DATA PUBLISHED IN THE ? MEDICAL LITERATURE. ??YOUR PATIENT'S RESULT SHOULD BE ? INTERPRETED IN THIS CONTEXT, TOGETHER WITH THE PATIENT'S ? HISTORY AND CLINICAL FINDINGS. TESTING LOCATION ? THIS TEST WAS PERFORMED AT [facility] ? [address] [facility]. [address] ? PHONE NUMBERS FOR CYTOLOGY INQUIRES, INCLUDING SLIDE REQUESTS ? EXT. [id number] ?? EXT. [id number] 07/14/1998 Melony Hernandez MD LABORATORY [facility] from Last 3 Months or Most Recently Relevant to Health Maintenance Care Teams Chiseler Head Relationship Specialty Start Date End Date No Ref-Primary, Physician PCP - General 03/31/23 Oleg Aparicio, RUPAL [address] [place] [address] Assigned Cancer Care Provider 05/06/23 Ana Oreilly MD [address] [address] Assigned OBGYN Provider 05/06/23
--- OUTSIDE RECORDS SUMMARY | 2023-06-13 11:52 | XMS_ITS | Encounter Summary ---
Author Name Unknown Organization [facility] Address [address] [facility] [place] [address] Care Team Providers Care Supervisor Bottle Machines Name Role Phone Unavailable Primary Care Provider Unavailabl e Reason for Visit * Reason Comments Ultrasound L2- Hx bilateral PE this Consult Hx bilateral PE this Encounter Details Date Type Department Care Team (Late Contact Info) Description 03/24/2023 PRE VISIT [facility] [place] [address] [place], [place] [address] Alma Soriano, RN Ultrasound (L2- Hx bilateral [...] Info) Description 06/21/2023 9:30 AM CDT Appointment [facility] [address] [place] [address] Ori Adame MD [address] [place] [address] 06/21/2023 10:00 AM CDT Office Visit [facility] Maternal [facility] [address] [place] [address] Ori Adame MD [address] [facility] [address] [place] [address] 07/04/2023 2:30 PM CDT Office Visit [facility] [address] [place] [address] [address] [place] [phone] Oleg Aparicio PA-C [address] [place] [address] [address] [place], [place] [address] documented as of this encounter Visit Diagnoses Not on filedocumented in this encounter
--- OUTSIDE RECORDS SUMMARY | 2023-06-13 11:52 | XMS_ITS | Encounter Summary ---
Author Name Unknown Organization [facility] Address [facility] [place] [address] Care Team Providers Care Litigation Associate Name Role Phone No Ref-Primary, Physician Primary Care Provider Oleg Aparicio PA-C Unavailable [phone] Ana Oreilly MD Unavailable [phone] Reason for Referral * Diagnostic Imaging Ultrasound (Routine) - Pending Review Specialty Diagnoses / Procedures Referred By Contac t Referred To Contact Radiology. Diagnoses Pulmonary embolism affecting in second trimester Procedures [facility] Comprehensive Single F/U Ana Oreilly MD [address] [place] [address] Referral ID Status Reason Start Date Expiration Date V isits Requested Visits Authorized [id number] Pending Review 04/12/2023 04/11/2024 1 1 Reason for Visit * Diagnostic Imaging Ultrasound (Routine) - Pending Review Specialty Diagnoses / Procedures Referred By Contac jose Referred To Contact Radiology. Diagnoses Pulmonary embolism affecting in second trimester Procedures [facility] Comprehensive Single F/U Ana Oreilly MD [address] [place] [address] Referral ID Status Reason Start Date Expiration Date V isits Requested Visits Authorized [id number] Pending Review 04/12/2023 04/11/2024 1 1 Encounter Details Date Type Department Care Team (Latest Contact Info) Description 05/10/2023 9:28 AM CDT - 05/10/2023 11:59 PM CDT Hospital Encounter [facility]aternal Medicine [place] [address] [facility] [address] [place] [phone] Ori Adame MD [address] [place] [address] Pulmonary embolism affecting in second trimester Discharge [...] Info) Description 06/21/2023 9:30 AM CDT Appointment [facility]aternal Medicine [place] [address] [address] [facility] [address] [place] [phone] Ori Adame MD [address] [place], [place] [address] 06/21/2023 10:00 AM CDT Office Visit [facility] Maternal Medicine [place] [address] [address] [facility] [address] [place] [address] Ori Adame MD [address] [place], [place] [address] 07/04/2023 2:30 PM CDT Office Visit [facility] [address] [place] [address] Oleg Aparicio PA-C [address] [place] [address] documented as of this encounter Procedures Procedure Name Priority Date/Time Associated Diagnosis Comments [facility] US COMPREHENSIVE SINGLE F/U Routine [...] ? Study Date: ??05/10/2023 9:30am Pat. NO: ??[id number] ?Referring ??MD: TRISTA MELLO Site: ??[facility] ? Sliding Joint Maker: Yamel Hill [facility] : ??1995 ?Age: ?? 27 ----- INDICATION [...] 1 lb 2 ?oz EFW by ?Hadlock ([id number]) Head / Face / Neck Biometry: Restaurant Hourly Manager ? 6.2 ? mm CM ?3.8 ? mm Nasal bone ? 7.0 ? mm ANATOMY ----- The following structures appear normal: Head / Neck ? Cranium. Head size. Head shape. Lateral ventricles. Midline falx. Cavum septi pellucidi. Cerebellum. Cisterna magna. Thalami. Face ? Lips. Profile. Nose. Maxilla. Mandible. Heart / Thorax ?4-chamber view. RVOT view. LVOT view. Situs. 5-sdiwlo-dtifmef view. ? Diaphragm. Abdomen ? Stomach. Kidneys. [...] [place] Study Date: 05/10/2023 9:30am Pat. NO: [id number] Referring MD: TRISTA MELLO Site: [facility] Sliding Joint Maker: Yamel Hill RDMS : 1995 Age: 27 [...] 1 lb 2 oz EFW by Hadlock ([id number]-FL) Head / Face / Neck Biometry: Restaurant Hourly Manager 6.2 mm CM 3.8 mm Nasal bone 7.0 mm ANATOMY ----- The following structures appear normal: Head / Neck Cranium. Head size. Head shape.Lateral ventricles. Midline falx. Cavum septi pellucidi. Cerebellum.Cisterna magna. Thalami. Face Lips. Profile. Nose. Maxilla.Mandible. Heart / Thorax 4-chamber view. RVOT view. LVOT view.Situs. 3-nhxfmn-siledma view. Diaphragm. Abdomen Stomach. Kidneys. Bladder. Spine [...] length with no funneling. Ana Oreilly MD [facility] US ORDERABLE S documented in this encounter Visit Diagnoses Diagnosis Pulmonary embolism affecting in second trimester documented in this encounter Care Teams Litigation Associate Relationship Specialty Start Date End Date No Ref-Primary, Physician PCP - General 03/31/23 Oleg Aparicio, RUPAL [address] [place], [place] [address] Assigned Cancer Care Provider 05/06/23 Ana Oreilly MD [address] [address] [place] [address] Assigned OBGYN Provider 05/06/23 documented as of this encounter
--- OUTSIDE RECORDS SUMMARY | 2023-06-13 11:52 | XMS_ITS | Encounter Summary ---
Author Name Unknown Organization [facility] Address [address] [facility] [place] [address] Care Team Providers Care Tax Manager Name Role Phone No Ref-Primary, Physician Primary Care Provider Oleg Aparicio PA-C Unavailable [phone] Ana Oreilly MD Unavailable [phone] Reason for Referral * Diagnostic Imaging Ultrasound (Routine) - Pending Review Specialty Diagnoses / Procedures Referred By Diana garcia Referred To Contact Radiology. Diagnoses related condition, antepartum Procedures [facility] US Comprehensive Single F/U Ori Adame MD [address] [place] [address] Referral ID Status Reason Start Date Expiration Date V isits Requested Visits Authorized [id number] Pending Review 05/10/2023 05/09/2024 1 1 Reason for Visit * Reason Comments Ultrasound RL2/TV- Subopt anato my, hx PTD Encounter Details Date Type Department Care Team (Late st Contact Info) Description 05/10/2023 10:00 AM CDT Office Visit [facility] [place] [address] [facility] [address] [place] [address] Ori Adame MD [address] [place] [address] Encounter for follow-up ultrasound of [...] for details of today's US at the [facility]. Ori Adame MD Maternal- Medicine documented in this encounter Nursing Notes * Alma Soriano RN - 05/10/2023 10:00 AM CDT Patient reports positive movement, denies pain, denies contractions/pre- term labor, leaking of fluid, or bleeding. Patient denies headache, visual changes, nausea/vomiting, epigastric pain related to preeclampsia. Education provided to patient on RL2/TV. SBAR given to [facility] MD, see their note in Epic. Alma Soriano RN documented in this encounter Plan of Treatment Upcoming Encounters Date Type Department Care Team (Late st Contact Info) Description 06/21/2023 9:30 AM CDT Appointment [facility] Medicine [facility] [address] [place] [address] Ori Adame MD [address] [facility] [address] [place], [place] [address] 06/21/2023 10:00 AM CDT Office Visit [facility] Medicine [facility] [address] [address] [place] [address] Ori Adame MD [address] [place] [address] 07/04/2023 2:30 PM CDT Office Visit [facility] [address] [place] [address] Oleg Aparicio PA-C [address] [place], [place] [address] documented as of this encounter Results * [facility] US Comprehensive Single F/U [...] ? Study Date: ??05/31/2023 10:49am Pat. NO: ??[id number] ?Referring ??MD: TRISTA MELLO Site: ??[facility] ? Tare Weigher: Chanda Lazo RDMS : ??1995 ?Age: ?? [...] lb 13 ? oz EFW by ?Hadlock ([id number]-FL) Head / Face / Neck Biometry: Filter Tip Inspector ? 5.7 ? mm CM ?7.7 ? mm ANATOMY ----- The following structures appear normal: Head / Neck ? Cranium. Head size. Head shape. Lateral ventricles. Midline falx. Cavum septi pellucidi. Cerebellum. Cisterna magna. Thalami. Heart / Thorax ?4-chamber view. RVOT view. LVOT view. 1-vgoqyp-txzlhvd view. ? Diaphragm. Abdomen ? Stomach. Kidneys. [...] [place] Study Date: 05/31/2023 10:49am Pat. NO: [id number] Referring MD: TRISTA MELLO Site: [facility] Tare Weigher: Chanda Lazo RDMS : 1995 Age: 28 [...] 1 lb 13 oz EFW by Hadlock ([id number]-FL) Head / Face / Neck Biometry: Filter Tip Inspector 5.7 mm CM 7.7 mm ANATOMY ----- The following structures appear normal: Head / Neck Cranium. Head size. Head shape.Lateral ventricles. Midline falx. Cavum septi pellucidi. Cerebellum.Cisterna magna. Thalami. Heart / Thorax 4-chamber view. RVOT view. LVOT view.0-lqixbh-pqmqpyx view. Diaphragm. Abdomen Stomach. Kidneys. Bladder. Spine [...] fluid volume appeared normal. Ori Adame MD [facility] US ORDERABL ES documented in this encounter Visit Diagnoses Diagnosis Encounter for follow-up ultrasound of anatomy- Primary History of delivery, currently with history of pre-term labor Encounter for ultrasound to assess growth Encounter for ultrasound to assess growth documented in this encounter Care Teams Tax Manager Relationship Specialty Start Date End Date No Ref-Primary, Physician PCP - General 03/31/23 Oleg Aparicio, JULIAC [address] [place] [address] Assigned Cancer Care Provider 05/06/23 Ana Oreilly MD [address] [address] [place] [address] Assigned OBGYN Provider 05/06/23 documented as of this encounter
--- OUTSIDE RECORDS SUMMARY | 2023-06-13 11:52 | XMS_ITS | Encounter Summary ---
Author Name Unknown Organization [place] Address [address] [facility] [place] [address] Care Team Providers Care Size Tester Name Role Phone No Ref-Primary, Physician Primary Care Provider Oleg Aparicio PA-C Unavailable [phone] Ana Oreilly MD Unavailable [phone] Encounter Details Date Type Department Care [...] Info) Description 06/21/2023 9:30 AM CDT Appointment [facility] Maternal Medicine [facility] [address] [facility] [address] [place] [address] Ori Adame MD [address] [place] [address] 06/21/2023 10:00 AM CDT Office Visit [facility] Maternal Medicine [facility] [address] [facility] [address] [place] [address] Ori Adame MD [address] [place] [address] 07/04/2023 2:30 PM CDT Office Visit [facility] for Ble[facility]ot[facility] Disorders [address] [facility] [address] [place] [phone] Oleg Aparicio PA-C [address] [facility] [address] [place], [place] [address] documented as of this encounter Visit Diagnoses Not on filedocumented in this encounter Care Teams Size Tester Relationship Specialty Start Date End Date No Ref-Primary, Physician PCP - General 03/31/23 Oleg Aparicio, RUPAL [facility] [facility] [address] [place] [address] Assigned Cancer Care Provider 05/06/23 Ana Oreilly MD [address] [place] [address] Assigned OBGYN Provider 05/06/23 documented as of this encounter
--- OUTSIDE RECORDS SUMMARY | 2023-06-13 11:52 | XMS_ITS | Encounter Summary ---
Author Name Unknown Organization [place] Address [address] [place] [address] Care Team Providers Care Court Worker Name Role Phone No Ref-Primary, Physician [...] AM CDT Appointment [facility] M[facility] [address] [facility] [address] [place] [phone] Ori Adame MD [address] [facility] [address] [place], [place] [address] 06/21/2023 10:00 AM CDT Office Visit [facility] [address] [facility] [address] [place] [phone] Ori Adame MD [address] [place], [place] [address] 07/04/2023 2:30 PM CDT Office Visit [facility] for Bleeding and Clot[facility] Disorders [address] [facility] [address] [place] [phone] Oleg Aparicio PA-C [address] [place] [address] documented as of this encounter Visit Diagnoses Not on filedocumented in this encounter Care Teams Court Worker Relationship Specialty Start Date End Date No Ref-Primary, Physician PCP - General 03/31/23 documented as of this encounter
--- OUTSIDE RECORDS SUMMARY | 2023-06-13 11:52 | XMS_ITS | Encounter Summary ---
Author Name Unknown Organization [place] Address [facility] [address] Care Team Providers Care Bed Spring Maker Name Role Phone No Ref-Primary, Physician Primary Care Provider Reason for Referral * Diagnostic Imaging Ultrasound (Routine) - Pending Review Specialty Diagnoses / Procedures Referred By Diana t Referred To Contact Radiology. Diagnoses Pulmonary embolism affecting in second trimester History of delivery, currently Procedures [facility] Ori Adame MD [address] [facility] [address] [address] Referral ID Status Reason Start Date Expiration Date V isits Requested Visits Authorized [id number] Pending Review 03/10/2023 03/09/2024 1 1 NOLOGY ENGINEER Reason for Visit * Diagnostic Imaging Ultrasound (Routine) - Pending Review Specialty Diagnoses / Procedures Referred By Contac t Referred To Contact Radiology. Diagnoses Pulmonary embolism affecting in second trimester History of delivery, currently Procedures [facility] Ori Jerome MD [address] [place] [address] Referral ID Status Reason Start Date Expiration Date V isits Requested Visits Authorized [id number] Pending Review 03/10/2023 03/09/2024 1 1 Encounter Details Date Type Department Care Team (Latest Contact Info) Description 04/12/2023 9:11 AM TECHNOLOGY ENGINEER - 04/12/2023 11:59 PM TECHNOLOGY ENGINEER Hospital Encounter [facility] [place] [address] [place] [phone] Ana Oreilly MD [address] [place], [place] [address] Pulmonary embolism affecting in second trimester; History [...] Info) Description 06/21/2023 9:30 AM CDT Appointment [facility] [place] [address] [facility] [address] [place] [phone] Ori Adame MD [address] [place], [place] [address] 06/21/2023 10:00 AM CDT Office Visit [facility] [address] [facility] [address] [place] [phone] Ori Adame MD [address] [place] [address] 07/04/2023 2:30 PM CDT Office Visit [facility] for Ble[facility] and [facility] Disorders [address] [place] [address] Oleg Aparicio PA-C [address] [place] [address] documented as of this encounter Procedures Procedure Name Priority Date/Time Associated Diagnosis Comments [facility] US COMPREHENSIVE SINGLE Routine 04/12/2023 10:26 AM TECHNOLOGY ENGINEER Pulmonary embolism affecting in second trimester History of delivery, currently documented in this encounter Results * [facility] US Comprehensive Single (04/12/2023 10:26 AM TECHNOLOGY ENGINEER) Anatomical Region Laterality Modality Ultrasound 04/12/2023 9:24 AM TECHNOLOGY ENGINEER Impressions 04/12/2023 3:24 PM TECHNOLOGY ENGINEER IMPRESSION ----- 1. Barnett intrauterine at 19w [...] long and closed. Narrative 04/12/2023 3:24 PM TECHNOLOGY ENGINEER ?Comprehensive ----- Pat. Name: YOON [place] ? Study Date: ??04/12/2023 9:24am Pat. NO: ??[id number] ?Referring ??MD: TRISTA MELLO Site: ??[facility] ? Scorer Helper: Edda Ayala RDMS : ??1995 ?Age: ?? [...] 0 lb 9 ?oz EFW by ?Hadlock ([id number]) Head / Face / Neck Biometry: It Communications Specialist ? 6.4 ? mm CM ?1.7 ? [...] cava. Inferior vena cava. 3-vessel ? view. 1-ifdaxe-knnxblx view. Cardiac position. Cardiac size. Cardiac rhythm. [...] MD - 04/12/2023 Comprehensive ----- Pat. Name: YOON [place] Study Date: 04/12/2023 9:24am Pat. NO: [id number] Referring MD: TRISTA MELLO Site: [facility] Scorer Helper: Edda Ayala RDMS : 1995 Age: 27 [...] 0 lb 9 oz EFW by Hadlock ([id number]) Head / Face / Neck Biometry: [employer] Specialist 6.4 mm CM 1.7 mm Nasal bone [...] Superior venacava. Inferior vena cava. 3-vessel view. 1-lufxcu-tltsvnx view.Cardiac position. Cardiac size. Cardiac rhythm. Right [...] ----- Thank-you for referring your patient for [facility] consult & ultrasoundassessment. I discussed the [...] appears long and closed. Ori Adame MD [facility] US ORDERABL ES documented in this encounter Visit Diagnoses Diagnosis Pulmonary embolism affecting in second trimester History of delivery, currently with history of pre-term labor documented in this encounter Care Teams Bed Spring Maker Relationship Specialty Start Date End Date No Ref-Primary, Physician PCP - General 03/31/23 documented as of this encounter
--- OUTSIDE RECORDS SUMMARY | 2023-06-13 11:52 | XMS_ITS | Clinical Summary ---
Author Name Unknown Organization [facility] Address [place], [place] [address] Care Team Providers Care Solid Waste Disposal Manager Name Role Phone Marybeth Andrew MD Primary [...] Procedure Name Priority Date/Time Associated Diagnosis Comments UPSETTER SETTER UP THIN PREP PAP SCREEN IMAGED Routine 12/11/2020 2:40 PM CDT from Last 3 Months or Most Recently Relevant to Health Maintenance Results * UPSETTER SETTER UP THIN PREP PAP SCREEN IMAGED (12/11/2020 2:40 PM CDT) Pathologist [facility] Case Report Gynecologic Cytology Report ? Case: [id number] ? Authorizing Provider: ??Elizabeth Philip ?Collected: ? 12/11/2020 1440 ? [place], ? Ordering Location: ? [facility] ?Received: ?12/15/2020 0858 ? First Screen: ?Baccam, Minie ? Specimen: ?UPSETTER SETTER UP ThinPrep Vial Screening, Cervical/Vaginal ? 12/26/2020 2:03 PM CDT [facility] INTERPRETATION/ RESULT NEGATIVE FOR INTRAEPITHELIAL LESION OR MALIGNANCY (NIL) (none) 12/26/2020 2:03 PM CDT [facility] IMEN ADEQUACY Satisfactory for evaluation No endocervical component seen 12/26/2020 2:03 PM CDT [facility] HPV REQUEST HPV if ASCUS 12/26/2020 2:03 PM CDT [facility] Date of LMP 11/04/2020 12/26/2020 2:03 PM CDT [facility] Menstrual Status 12/26/2020 2:03 PM CDT [facility] Additional Information 12/26/2020 2:03 PM CDT [facility] Comment: Interpreted at [facility] - [address], [place] [address] Automated Review Successful 12/26/2020 2:03 PM CDT [facility] Comment:Specimen processed s uccessfully by automated returns clerk device, ThinPrep Imaging System, [employer] Note The pap test is a [...] and malignant lesions. 12/26/2020 2:03 PM CDT [facility] Other (Cervical/Vagina l) 12/11/2020 2:40 PM CDT 12/15/2020 8:58 AM CDT Elizabeth Philip MD PATHOLOGY/ CYTOLOGY [facility] [address] [place] [address] [address] [place] [address], from Last 3 Months or Most Recently Relevant to Health Maintenance Care Teams Solid Waste Disposal Manager Relationship Specialty Start Date End Date Marybeth Andrew MD [address] [place] [address] PCP - General Family Practice 08/20/22
--- OUTSIDE RECORDS SUMMARY | 2023-06-13 11:52 | XMS_ITS | Encounter Summary ---
Author Name Unknown Organization [place] Address [address] [place] [address] Care Team Providers Care Cone Sewer Name Role Phone No Ref-Primary, Physician Primary [...] Info) Description 06/21/2023 9:30 AM CDT Appointment [facility] Maternal Medicine [facility] [address] [facility] [address] [place] [phone] Ori Adame MD [address] [facility] [address] [place], [place] [address] 06/21/2023 10:00 AM CDT Office Visit [facility] Maternal Medicine [facility] [address] [facility] [address] [place] [phone] Ori Adame MD [address] [place], [place] [address] 07/04/2023 2:30 PM CDT Office Visit [facility] for Bleeding and Clotting Disorders [address] [place] [phone] Oleg Aparicio PA-C [address] [place] [address] documented as of this encounter Visit Diagnoses Not on filedocumented in this encounter Care Teams Cone Sewer Relationship Specialty Start Date End Date No Ref-Primary, Physician PCP - General 03/31/23 documented as of this encounter
--- OUTSIDE RECORDS SUMMARY | 2023-06-13 11:52 | XMS_ITS | Encounter Summary ---
Author Name Unknown Organization [place] Address [address] [place] [address]. [place] [address] Care Team Providers Care Cutting And Printing Machine Operator Name Role Phone No Ref-Primary, Physician Primary Care Provider Reason for Referral * Diagnostic Imaging Ultrasound (Routine) - Pending Review Specialty Diagnoses / Procedures Referred By Contac t Referred To Contact Radiology. Diagnoses Pulmonary embolism affecting in second trimester Procedures [facility] US Comprehensive Single F/U Ana Oreilly MD [address] [employer] [address] [place] [address] Referral ID Status Reason Start Date Expiration Date V isits Requested Visits Authorized [id number] Pending Review 04/12/2023 04/11/2024 1 1 CE MACHINE TECHNICIAN * Consultation (Priority: 1-2 Weeks) - Pending Review Specialty Diagnoses / Procedures Referred By Contac t Referred To Contact Medical Oncology Diagnoses Pulmonary embolism affecting in second trimester Ana Oreilly MD [address] [employer] [address] [place] [address] Referral ID Status Reason Start Date Expiration Date V isits Requested Visits Authorized [id number] Pending Review 04/12/2023 04/11/2024 1 1 Question Answer My Clinical Question Is: Pt is and had bilateral PE 03/08 in [place] Pt is on Lovenox 60 mg BID. Pt needs clotting work up and Lovenox mgt If you have additional clinical questions which require a provider discussion, please call [phone]. Ask for the Chemo only medicine physician. Reason for Referral: Bleeding and Clotting Scheduling Instructions: [facility] will call you to coordinate your care as prescribed by the provider. If you don? t hear from a desk representative within 2 business days, please call Comments Please be aware that coverage of these services is subject to the terms and limitations of your health insurance plan. Call member services at your health plan with any benefit or coverage questions. [facility] will call you to coordinate your care as prescribed by the provider. If you don? t hear from a desk representative within 2 business days, please call CE MACHINE TECHNICIAN Reason for Visit * Reason Comments Ultrasound L2/TV - hx bilateral PE (this ), hx PROM Consult L2- hx bilateral PE (this ), hx PROM * Consultation (Routine: Next available opening) - Pending Review Specialty Diagnoses / Procedures Referred By Contac t Referred To Contact Diagnoses Pulmonary embolism affecting in second trimester History of delivery, currently Ori Adame MD [address] [address] Referral ID Status Reason Start Date Expiration Date V isits Requested Visits Authorized [id number] Pending Review 03/10/2023 03/09/2024 1 1 Encounter Details Date Type Department Care Team (Late st Contact Info) Description 04/12/2023 10:15 AM OFFICE MACHINE TECHNICIAN Office Visit [facility] Maternal Medicine Center [address] [place] [address] Ana Oreilly MD [address] [facility] [address] [place], [place] [address] Pulmonary embolism affecting in second trimester (Primary [...] - Respiratory Rate 20 04/12/2023 10:58 AM OFFICE MACHINE TECHNICIAN Oxygen Saturation 97% 04/12/2023 10:58 AM OFFICE MACHINE TECHNICIAN room air Inhaled Oxygen Concentration - - Weight 65.9 kg (145 lb 4.8 oz) 04/12/2023 10:58 AM OFFICE MACHINE TECHNICIAN Height 170.2 cm (5' 7) 04/12/2023 10:58 AM OFFICE MACHINE TECHNICIAN Body Mass Index 22.76 04/12/2023 10:58 AM OFFICE MACHINE TECHNICIAN documented in this encounter Progress Notes * Ama Yadav MD - 04/12/2023 10:15 AM CST Images from the original note were not included. Maternal- Medicine Consultation Gabrielle [place] : 1995 Rerferral: Gabrielle [place] is a 27 year old sent by Dr. Tolentino from [facility] for MFM consultation. HPI Gabrielle [place] is [...] this has been with Dr. Tolentino from [facility]. OB History Para Term AB Living 2 [...] anti-Xa level, which will be coordinated at [place], but is also ordered standing in the [facility] system if she is unable to obtain [...] patient. Ama Yadav MD Maternal Medicine Fellow [facility] Attending Attestation I have seen and evaluated [...] medical record, and communicating with other health resident care supervisor and/or care coordination.Please see her note for specific details; I have made the necessary edits/additions. The patient was also seen for an ultrasound in the Maternal- Medicine Center at the [facility] today. For a detailed report of the ultrasound examination, please see the ultrasound report which can be found under the imaging tab. Ana Oreilly MD Maternal Medicine Physician CE MACHINE TECHNICIAN documented in this encounter Nursing Notes * Elaina Cano RN - 04/12/2023 10:15 AM CST Pt here for L2/consult d/t hx of PE in this . Pt notes intermittent right sided focal sharp pain/tenderness at fold recently. Questions whether this is related to cyst noted on prior ultrasound. Report given to transfer professor prior to scanning. Pt also recalls history of PPROM as spontaneous rupture at home at approximately 36 wks, no signs of labor other than vague feeling of something being off night prior. occurred within 2 hours of rupture. Added TV to ultrasound per protocol. Gabrielle was seen in [facility] Clinic today for Comp and MFM consult due to h/o PE in this . Pt has not followed up on any labs and hasn't met with hematology yet. . Dr. Oreilly and Dr. Yadav into see patient. Pt to have XA level at [facility] tomorrow and this was communicated to RN at . Pt to have 2 week TV at [place] and then F/U comp/TV in 4 weeks at [facility]. Pt also had heme consult placed for 1-2 weeks. Please see [facility] consult note for recommendations. Patient was discharged ambulatory and stable. CE MACHINE TECHNICIAN documented in this encounter Plan of Treatment Upcoming Encounters Date Type Department Care Team (Late st Contact Info) Description 06/21/2023 9:30 AM CDT Appointment [facility] [address] [facility] [address] [place] [phone] Ori Adame MD [address] [place], [place] [address] 06/21/2023 10:00 AM CDT Office Visit [facility] Hospital Medicine [facility] [address] [facility] [address] [place] [phone] Ori Adame MD [address] [place] [address] 07/04/2023 2:30 PM CDT Office Visit [facility] for Bleeding and Clotting Disorders [address] [place] [phone] Oleg Aparicio PA-C [address] [place], [place] [address] Scheduled Orders Name Type Priority Associated Diagnoses Orde r Schedule Low Molecular Weight Heparin Anti Xa Level Lab Routine Pulmonary embolism affecting in second trimester 1 Occurrences starting 04/12/2023 until 04/12/2024 Scheduled Referrals Name Type Priority Associated Diagnoses Orde r Schedule Adult Oncology/Hematology Gastroenterology Technician Referral Referral Priority: 1-2 Weeks Pulmonary embolism [...] ? Study Date: ??05/10/2023 9:30am Pat. NO: ??[id number] ?Referring ??MD: TRISTA MELLO Site: ??[facility] ? Vp Public Relations: Yamel [place] RDMS : ??1995 ?Age: ?? [...] 1 lb 2 ?oz EFW by ?Hadlock ([id number]) Head / Face / Neck Biometry: Sales Closer ? 6.2 ? mm CM ?3.8 ? mm Nasal bone ? 7.0 ? mm ANATOMY ----- The following structures appear normal: Head / Neck ? Cranium. Head size. Head shape. Lateral ventricles. Midline falx. Cavum septi pellucidi. Cerebellum. Cisterna magna. Thalami. Face ? Lips. Profile. Nose. Maxilla. Mandible. Heart / Thorax ?4-chamber view. RVOT view. LVOT view. Situs. 6-yakdrm-zsiayep view. ? Diaphragm. Abdomen ? Stomach. Kidneys. [...] [place] Study Date: 05/10/2023 9:30am Pat. NO: [id number] Referring MD: TRISTA MELLO Site: [facility] Vp Public Relations: Yamel [place] RDMS : 1995 Age: 27 [...] 1 lb 2 oz EFW by Hadlock ([id number]) Head / Face / Neck Biometry: Sales Closer 6.2 mm CM 3.8 mm Nasal bone 7.0 mm ANATOMY ----- The following structures appear normal: Head / Neck Cranium. Head size. Head shape.Lateral ventricles. Midline falx. Cavum septi pellucidi. Cerebellum.Cisterna magna. Thalami. Face Lips. Profile. Nose. Maxilla.Mandible. Heart / Thorax 4-chamber view. RVOT view. LVOT view.Situs. 6-qjxywg-qgolnph view. Diaphragm. Abdomen Stomach. Kidneys. Bladder. Spine [...] length with no funneling. Ana Oreilly MD [facility] US ORDERABLE S documented in this encounter Visit Diagnoses Diagnosis Pulmonary embolism affecting in second trimester- Primary History of delivery, currently with history of pre-term labor Pulmonary embolism affecting in second trimester documented in this encounter Care Teams Cutting And Printing Machine Operator Relationship Specialty Start Date End Date No Ref-Primary, Physician PCP - General 03/31/23 documented as of this encounter
--- OUTSIDE RECORDS SUMMARY | 2023-06-13 11:52 | XMS_ITS | Referral Summary ---
Author Name Unknown Organization [facility] Address [address] [place] [address] Care Team Providers Care Terrazzo Finisher Name Role Phone Elsewhere, Pcp Primary Care Provider Unavailabl e Source Comments Patient records contain information from all sites at [facility]. For routine questions regarding patient records, call [phone] during business hours, M-F 8:00 AM - 5:00 PM Central Time. Record requests for emergency care only can be directed to [phone] at any time.[facility] Allergies No known active allergies Medications Medication Sig Dispensed Refills Start Date End Date Status ozvtiwf-Vx-hzsb-FA (VINATE ONE) 60 mg iron-1 mg per [...] How often do you attend chur or cheondoism services? More than 4 times per year 02/21/2022 Do you belong to any clubs o r organizations such as taoist groups, unions, fraternal or athletic groups, or [...] and heating? Not hard at all 02/21/2022 [facility] - Occupational Stress [...] place to sleep or slept in a long-term (including now)? No 02/21/2022 Nutrition Answer Date [...] Sex Assigned at Female 02/21/2022 11:00 AM DIRECTOR DATA ARCHITECTURE Gender Identity Female 02/21/2022 11:00 AM DIRECTOR DATA ARCHITECTURE Sexual Orientation Straight 02/21/2022 11 :00 AM DIRECTOR DATA ARCHITECTURE Last Filed Vital Signs Vital Sign Reading Time Taken Comments Blood Pressure - - Pulse - - Temperature 36.6 ??C (97.9 ??F) 02/24/2022 12:[address] Respiratory Rate - - Oxygen Saturation - - Inhaled Oxygen Concentration - - Weight 72.4 kg (159 lb 9.8 oz) 02/24/2022 12:38 PM DIRECTOR DATA ARCHITECTURE Height 169.7 cm (5' 6.81) 02/24/2022 12:[address] Body Mass Index 25.14 02/24/2022 12:38 PM DIRECTOR DATA ARCHITECTURE Plan of Treatment Not on file Care Teams Terrazzo Finisher Relationship Specialty Start Date End Date Elsewhere, Pcp PCP - General Internal Medicine 02/24/22
--- OUTSIDE RECORDS SUMMARY | 2023-06-13 11:52 | XMS_ITS | Encounter Summary ---
Author Name Unknown Organization [place] Address [address] [place] [address]. [place] [address] Care Team Providers Care Pilot Can Router Name Role Phone No Ref-Primary, Physician Primary Care Provider Encounter Details Date Type Department Care Team ([facility] st Contact Info) Description 04/28/2023 Telephone [facility] [address] [place] [phone] Oleg Aparicio PA-C [address] [place] [phone] 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 Tobacco Use Types Packs/Day Years [...] from the original note were not included. [facility] [address] [place] [address] [address], [place] [address] Main: [phone], Telephone Note: Patient: Gabrielle Mcmahon : 1995 Date of this note written: April 28, 2023 Time: 15:55 This procedure writer called the patient on 04/28/2023 at [...] post . Oleg Aparicio PA-C, MPAS Physician Spray Foam Installer [facility]. T AND VEGETABLE FACTORY WORKER documented in this encounter Plan of Treatment Upcoming Encounters Date Type Department Care Team (Late st Contact Info) Description 06/21/2023 9:30 AM CDT Appointment [facility] Medicine [facility] [address] [facility] [address] [place] [phone] Ori Adame MD [address] [place] [address] 06/21/2023 10:00 AM CDT Office Visit [facility] Medicine [facility] [address] [facility] [address] [place] [address] Ori Adame MD [address] [place] [address] 07/04/2023 2:30 PM CDT Office Visit [facility] [address] [facility] [address] [place] [phone] Oleg Aparicio, PA-C [address] [facility] [address] [place] [address] documented as of this encounter Visit Diagnoses Not on filedocumented in this encounter Care Teams Pilot Can Router Relationship Specialty Start Date End Date No Ref-Primary, Physician PCP - General 03/31/23 documented as of this encounter
--- OUTSIDE RECORDS SUMMARY | 2023-06-13 11:52 | XMS_ITS | Encounter Summary ---
Author Name Unknown Organization [place] Address [facility] [address] Care Team Providers Care Motorcycle Subassembly Repairer Name Role Phone No Ref-Primary, Physician Primary Care Provider Oleg Aparicio PA-C Unavailable [phone] Ana Oreilly MD Unavailable [phone] Reason for Referral * Diagnostic Imaging Ultrasound (Routine) - Pending Review Specialty Diagnoses / Procedures Referred By Contac t Referred To Contact Radiology. Diagnoses related condition, antepartum Procedures [facility] US Comprehensive Single F/U Ori Adame MD [address] [place] [address] Referral ID Status Reason Start Date Expiration Date V isits Requested Visits Authorized [id number] Pending Review 05/10/2023 05/09/2024 1 1 Reason for Visit * Diagnostic Imaging Ultrasound (Routine) - Pending Review Specialty Diagnoses / Procedures Referred By Contac t Referred To Contact Radiology. Diagnoses related condition, antepartum Procedures [facility] US Comprehensive Single F/U Ori Adame MD [address] [facility] [address] [place] [address] Referral ID Status Reason Start Date Expiration Date V isits Requested Visits Authorized [id number] Pending Review 05/10/2023 05/09/2024 1 1 Encounter Details Date Type Department Care Team (Latest Contact Info) Description 05/31/2023 10:45 AM CDT - 05/31/2023 11:59 PM CDT Hospital Encounter [facility] Maternal Medicine [place] [address] [address] [facility] [address] [place] [phone] Ori Adame MD [address] [place], [place] [address] Encounter for ultrasound to assess growth Discharge [...] Info) Description 06/21/2023 9:30 AM CDT Appointment [facility] Maternal Medicine [place] [address] [address] [facility] [address] [place] [phone] Ori Adame MD [address] [place], [place] [address] 06/21/2023 10:00 AM CDT Office Visit [facility] Maternal Medicine [place] [address] [address] [facility] [address] [place] [phone] Ori Adame MD [address] [place], [place] [address] 07/04/2023 2:30 PM CDT Office Visit [facility] for Ble[facility] Clot[facility] Disorders [address] [facility] [address] [place] [address] Oleg Aparicio PA-C [address] [place], [place] [address] documented as of this encounter Procedures Procedure Name Priority Date/Time Associated Diagnosis Comments [facility] US COMPREHENSIVE SINGLE F/U Routine 05/31/2023 11:40 AM CDT Encounter for ultrasound to assess growth documented in this encounter Results * [facility] US Comprehensive Single F/U (05/31/2023 11:40 [...] ? Study Date: ??05/31/2023 10:49am Pat. NO: ??[id number] ?Referring ??MD: TRISTA MELLO Site: ??[facility] ? Log Inspector: Chanda Lazo RDMS : ??1995 ?Age: ?? [...] lb 13 ? oz EFW by ?Hadlock ([id number]) Head / Face / Neck Biometry: Manager Sound ? 5.7 ? mm CM ?7.7 ? mm ANATOMY ----- The following structures appear normal: Head / Neck ? Cranium. Head size. Head shape. Lateral ventricles. Midline falx. Cavum septi pellucidi. Cerebellum. Cisterna magna. Thalami. Heart / Thorax ?4-chamber view. RVOT view. LVOT view. 8-hmwpga-etdzcxi view. ? Diaphragm. Abdomen ? Stomach. Kidneys. [...] [place] Study Date: 05/31/2023 10:49am Pat. NO: [id number] Referring MD: TRISTA MELLO Site: [facility] Log Inspector: Chanda Lazo RDMS : 1995 Age: 28 [...] 1 lb 13 oz EFW by Hadlock ([id number]) Head / Face / Neck Biometry: Manager Sound 5.7 mm CM 7.7 mm ANATOMY ----- The following structures appear normal: Head / Neck Cranium. Head size. Head shape.Lateral ventricles. Midline falx. Cavum septi pellucidi. Cerebellum.Cisterna magna. Thalami. Heart / Thorax 4-chamber view. RVOT view. LVOT view.8-bloivs-wzwzdbq view. Diaphragm. Abdomen Stomach. Kidneys. Bladder. Spine [...] fluid volume appeared normal. Ori Adame MD [facility] US ORDERABL ES documented in this encounter Visit Diagnoses Diagnosis Encounter for ultrasound to assess growth documented in this encounter Care Teams Motorcycle Subassembly Repairer Relationship Specialty Start Date End Date No Ref-Primary, Physician PCP - General 03/31/23 Oleg Aparicio, JULIAC [address] [place] [address] Assigned Cancer Care Provider 05/06/23 Ana Oreilly MD [address] [place], [place] [phone] Assigned OBGYN Provider 05/06/23 documented as of this encounter
--- OUTSIDE RECORDS SUMMARY | 2023-06-13 11:52 | XMS_ITS | Clinical Summary ---
Author Name Unknown Organization [facility] Address [address] [place] [address] Care Team Providers Care Eyelet Machine Operator Name Role Phone Elsewhere, Pcp Primary Care Provider Unavailabl e Source Comments Patient records contain information from all sites at [facility]. For routine questions regarding patient records, call [phone] during business hours, M-F 8:00 AM - 5:00 PM Central Time. Record requests for emergency care only can be directed to [phone] at any time.[facility] Allergies No known active allergies Medications Medication Sig Dispensed Refills Start Date End Date Status [id number]-[id number] (VINATE ONE) 60 mg iron-1 mg per [...] week 02/21/2022 How often do you attend [facility] or [facility]ahai services? More than 4 times per year 02/21/2022 Do you belong to any clubs o r organizations such as gnosticist groups, unions, fraternal or athletic groups, or [...] and heating? Not hard at all 02/21/2022 [facility] [place] of Occupat ional Health - Occupational Stress [...] place to sleep or slept in a prison (including now)? No 02/21/2022 Nutrition Answer Date [...] Sex Assigned at Female 02/21/2022 11:00 AM REMOTE ENCODING CENTER MANAGER Gender Identity Female 02/21/2022 11:00 AM REMOTE ENCODING CENTER MANAGER Sexual Orientation Straight 02/21/2022 11 :00 AM REMOTE ENCODING CENTER MANAGER Last Filed Vital Signs Vital Sign Reading Time Taken Comments Blood Pressure - - Pulse - - Temperature 36.6 ??C (97.9 ??F) 02/24/2022 12:[address] Respiratory Rate - - Oxygen Saturation - - Inhaled Oxygen Concentration - - Weight 72.4 kg (159 lb 9.8 oz) 02/24/2022 12:38 PM REMOTE ENCODING CENTER MANAGER Height 169.7 cm (5' 6.81) 02/24/2022 12:[address] Body Mass Index 25.14 02/24/2022 12:38 PM REMOTE ENCODING CENTER MANAGER Plan of Treatment Health Maintenance Due Date [...] age to complete this topic Care Teams Eyelet Machine Operator Relationship Specialty Start Date End Date Elsewhere, Pcp PCP - General Internal Medicine 02/24/22
--- OUTSIDE RECORDS SUMMARY | 2023-06-13 11:52 | XMS_ITS | Encounter Summary ---
Author Name Unknown Organization [place] Address [facility] [address] Care Team Providers Care Flame Cutting Machine Operator Name Role Phone No Ref-Primary, Physician Primary Care Provider Encounter Details Date Type Department Care Team (Late st Contact Info) Description 05/03/2023 1:00 PM CDT Lab [facility] [address] [place] [address] Pulmonary embolism affecting in second [...] Info) Description 06/21/2023 9:30 AM CDT Appointment [facility] Maternal Medicine [facility] [place] [address] [place] [address] Ori Adame MD [address] [address] [place], [place] [phone] 06/21/2023 10:00 AM CDT Office Visit [facility] [place] [address] [facility] [address] [place] [address] Ori Adame MD [address] [place], [place] [address] 07/04/2023 2:30 PM CDT Office Visit [facility] for Ble[facility] [address] [place] [phone] Oleg Aparicio PABrightC [address] [place], [place] [address] documented as of this encounter Procedures Procedure [...] ES [facility] SPECIALTY CORE/PROT/ENDO Specialty Core/Prot/Endo [address] [facility], [address] * Beta 2 Glycoprotein 1 Antibody IgG (05/03/2023 1:03 PM CDT) Beta 2 Glycoprotein 1 Antibody IgG <0.8 <7.0 U/mL 05/04/2023 10:34 AM CDT UM SPECIALTY CORE/PROT/END O Comment:Negative Blood BLOOD SPECIMEN / Unknown Venipuncture / Unknown 05/03/2023 1:03 PM CDT 05/03/2023 1:03 PM CDT Oleg Aparicio PA-C LAB - BLOOD ORDERABL ES Performing Organization Address City/[facility]/ZIP Co de Phone Number SPECIALTY CORE/PROT/ENDO Specialty Core/Prot/Endo [address] [facility], [address] * Cardiolipin Makenzie IgG and IgM [...] UM SPECIALTY CORE/PROT/ENDO UM Specialty Core/Prot/Endo [address] [facility] [address], Room 3-[address] * (ABNORMAL) Lupus Anticoagulant Panel (05/03/2023 [...] of an antiphospholipid syndrome, recommend anticardiolipin and mmdn-0-yicdtzgpcpl n (IgG and IgM) antibody tests. Recommend [...] UM SPECIAL COAGULATION UM Special Coagulation [address] [facility] [address], Room 3-580 [place] [phone], [place] * Low Molecular Weight Heparin Anti [...] LAB - BLOOD ORDERABL ES [facility]AT[facility] Core Lab [address] [facility], [address] [place] [address], [facility] documented in this encounter Visit Diagnoses Diagnosis Pulmonary embolism affecting in second trimester Family history of blood clots Family history of other blood disorders documented in this encounter Care Teams Flame Cutting Machine Operator Relationship Specialty Start Date End Date No Ref-Primary, Physician PCP - General 03/31/23 documented as of this encounter
--- OUTSIDE RECORDS SUMMARY | 2023-06-13 11:52 | XMS_ITS | Encounter Summary ---
Author Name Unknown Organization [place] Address [address] [facility] [place] [address] Care Team Providers Care Hide Trimmer Name Role Phone No Ref-Primary, Physician Primary Care Provider Oleg Aparicio PA-C Unavailable [phone] Ana Oreilly MD Unavailable [phone] Reason for Referral * Diagnostic Imaging Ultrasound (Routine) - Pending Review Specialty Diagnoses / Procedures Referred By Diana garcia Referred To Contact Radiology. Diagnoses Encounter for ultrasound to check growth Procedures [facility] US Comprehensive Single F/U Ori Adame MD [address] [place] [address] Referral ID Status Reason Start Date Expiration Date V isits Requested Visits Authorized [id number] Pending Review 05/31/2023 05/30/2024 1 1 Reason for Visit * Reason Comments Ultrasound RL2-reassess g rowth, EFW 15% Encounter Details Date Type Department Care Team (Late st Contact Info) Description 05/31/2023 11:30 AM CDT Office Visit [facility] M[facility] Medicine [facility] [place] [address] [facility] [address] [place] [address] Ori Adame MD [address] [place] [address] Encounter for ultrasound to check [...] for details of today's US at the [facility]. Ori Adame MD Maternal- Medicine documented [...] OB givenhistory of PE. SBAR given to [facility] (Dr. Adame), see their note in Epic. documented in this encounter Plan of Treatment Upcoming Encounters Date Type Department Care Team (Late st Contact Info) Description 06/21/2023 9:30 AM CDT Appointment [facility] [place] [address] [facility] [address] [place] [address] Ori Adame MD [address] [place] [address] 06/21/2023 10:00 AM CDT Office Visit [facility] [place] [address] [place] [phone] Ori Adame MD [address] [place] [address] 07/04/2023 2:30 PM CDT Office Visit [facility] for Bleeding [facility] Disorders [address] [place] [phone] Oleg Aparicio PA-C [address] [place], [place] [address] Scheduled Orders Name Type Priority Associated Diagnoses Orde r Schedule [facility] US Comprehensive Single F/U Imaging Routine Encounter for ultrasound to check growth Expected: 06/21/2023 (Approximate), Expires: 05/30/2024 documented as of this encounter Visit Diagnoses Diagnosis Encounter for ultrasound to check growth- Primary documented in this encounter Care Teams Hide Trimmer Relationship Specialty Start Date End Date No Ref-Primary, Physician PCP - General 03/31/23 Oleg Aparicio, RUPAL [address] [place], [place] [address] Assigned Cancer Care Provider 05/06/23 Ana Oreilly MD [address] [place], [place] [phone] Assigned OBGYN Provider 05/06/23 documented as of this encounter
--- OUTSIDE RECORDS SUMMARY | 2023-06-13 11:52 | XMS_ITS | Encounter Summary ---
Author Name Unknown Organization [place] Address [address] [place] [address]. [place] [address] Care Team Providers Care Commercial Journeyman Electrician Name Role Phone Unavailable Primary Care Provider Unavailabl e Encounter Details Date Type Department Care Team (Late st Contact Info) Description 03/09/2023 Medical Correspondence [facility] [address] [place] [phone] Scan, Non-Provider 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 Tobacco Use [...] Info) Description 06/21/2023 9:30 AM CDT Appointment [facility] Maternal Medicine [facility] [address] [facility] [address] [place] [phone] Ori Adame MD [address] [facility] [address] [place], [place] [address] 06/21/2023 10:00 AM CDT Office Visit [facility] Maternal Medicine [facility] [address] [facility] [address] [place] [phone] Ori Adame MD [address] [facility] [address] [place], [place] [address] 07/04/2023 2:30 PM CDT Office Visit [facility] for Ble[facility] Cl[facility] Disorders [address] [place] [address] [address] [place] [phone] Oleg Aparicio PA-C [address] [place] [address] 105 [place] [address] documented as of this encounter Visit Diagnoses Not on filedocumented in this encounter
--- OUTSIDE RECORDS SUMMARY | 2023-06-13 11:52 | XMS_ITS | Encounter Summary ---
Author Name Unknown Organization [place] Address [address] [place] [address]. [place] [address] Care Team Providers Care Revenue Enforcement Agent Name Role Phone Unavailable Primary Care Provider Unavailabl e Reason for Referral * Consultation (Routine: Next available opening) - Pending Review Specialty Diagnoses / Procedures Referred By Diana garcia Referred To Contact Diagnoses related condition, antepartum Ofelia Moreno MD [facility] [address] [place] [address] [facility] Maternal Med [address] [facility] [address] [place] [address] Referral ID Status Reason Start Date Expiration Date V isits Requested Visits Authorized [id number] Pending Review 03/09/2023 03/08/2024 1 1 Question Answer Preferred Location: [facility] [place] 09/04/2023 Ultrasound Comprehensive US (>than 18 [...] Consultation No Genetic Counseling Consultation: No fax [facility] Ofelia Moreno [phone] Comments acute bilateral promimal PE diagnosed 03/08, other pulminary embolism w/o acut cor abnormal findings of blood chemistry ROLLS OPERATOR Encounter Details Date Type Department Care Team (Late st Contact Info) Description 03/09/2023 Transcribe Orders [facility] Maternal Medicine [place] [address] [address] [facility] [address] [place] [phone] Ofelia Moreno MD [facility] [address] [address] related condition, antepartum (Primary Dx) 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 [...] Info) Description 06/21/2023 9:30 AM CDT Appointment [facility] Maternal Medicine [place] [address] [address] [facility] [address] [place] [phone] Ori Adame MD [address] [place] [address] 06/21/2023 10:00 AM CDT Office Visit [facility] Maternal Medicine [place] [address] [phone] Ori Adame MD [address] [place] [address] 07/04/2023 2:30 PM CDT Office Visit [facility] for Bleeding and Clot[facility] Disorders [address] [facility] [address] [place] [phone] Oleg Aparicio PA-C [address] [facility] [address] [place], [place] [address] Scheduled Referrals Name Type Priority Associated Diagnoses Orde r Schedule [facility]tr Referral - Referral Routine: Next available opening related condition, antepartum Expected: 03/09/2023 (Approximate), Expires: 09/05/2023 documented as of this encounter Visit Diagnoses Diagnosis related condition, antepartum- Primary documented in this encounter
--- OUTSIDE RECORDS SUMMARY | 2023-06-13 11:52 | XMS_ITS | Encounter Summary ---
Author Name Unknown Organization [place] Address [address] [facility] [place] [address] Care Team Providers Care Cast Iron Dipper Name Role Phone No Ref-Primary, Physician Primary Care Provider Oleg Aparicio PA-C Unavailable [phone] Ana Oreilly MD Unavailable [phone] Encounter Details Date Type Department Care [...] Info) Description 06/21/2023 9:30 AM CDT Appointment [facility] Maternal Medicine [facility] [address] [place] [employer] [facility] [address] [place] [address] Ori Adame MD [address] [place] [phone] 06/21/2023 10:00 AM CDT Office Visit [facility] Maternal Medicine [facility] [address] [facility] [address] [place] [address] Ori Adame MD [address] [place] [address] 07/04/2023 2:30 PM CDT Office Visit [facility] for Ble[facility] Disorders [address] [facility] [address] [place] [phone] Oleg Aparicio PA-C [address] [facility] [address] [place], [place] [address] documented as of this encounter Visit Diagnoses Not on filedocumented in this encounter Care Teams Cast Iron Dipper Relationship Specialty Start Date End Date No Ref-Primary, Physician PCP - General 03/31/23 Oleg Aparicio, RUPAL [facility] [address] [facility] [address] [place] [address] Assigned Cancer Care Provider 05/06/23 Ana Oreilly MD [address] [place] [address] Assigned OBGYN Provider 05/06/23 documented as of this encounter
--- OUTSIDE RECORDS SUMMARY | 2023-06-13 11:52 | XMS_ITS | Encounter Summary ---
Author Name Unknown Organization [place] Address [address] [facility] [place] [address] Care Team Providers Care Cheese Tester Name Role Phone No Ref-Primary, Physician Primary Care Provider Oleg Aparicio PA-C Unavailable [phone] Ana Oreilly MD Unavailable [phone] Encounter Details Date Type Department Care Team (Late st Contact Info) Description 04/28/2023 MyC Medical Advice [facility] for Ble[facility] Cl[facility] Disorders [address] [place] [address] Carmen Pollack, MAC 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 [...] Description 06/21/2023 9:30 AM CDT Appointment [facility] Maternal Medicine [facility] [address] [facility] [address] [place] [address] Ori Adame MD [address] [place], [place] [address] 06/21/2023 10:00 AM CDT Office Visit [facility] [place] [address] [place] [phone] Ori Adame MD [address] [place], [place] [address] 07/04/2023 2:30 PM CDT Office Visit [facility] for Bleeding and Clot[facility] Disorders [address] [place] [phone] Oleg Aparicio PABrightC [address] [place], [place] [address] documented as of this encounter Visit Diagnoses Not on filedocumented in this encounter Care Teams Cheese Tester Relationship Specialty Start Date End Date No Ref-Primary, Physician PCP - General 03/31/23 Oleg Aparicio, PABrightC [address] [place], [place] [address] Assigned Cancer Care Provider 05/06/23 Ana Oreilly MD [address] [place] [address] Assigned OBGYN Provider 05/06/23 documented as of this encounter
--- OUTSIDE RECORDS SUMMARY | 2023-06-13 11:52 | XMS_ITS ---
Author Name Unknown Organization [facility] Address [address] [place] [address] Care Team Providers Care Woven Wood Shade Assembler Name Role Phone Unavailable Unavailable Unavailable Surgery Details Not on file Complications Check Surgery Details section. Procedure Estimated Blood Loss Check Surgery Details section. Procedure Findings Check Surgery Details section. Procedure Specimens Taken Check Surgery Details section.
--- OUTSIDE RECORDS SUMMARY | 2023-06-13 11:52 | XMS_ITS | Encounter Summary ---
Author Name Unknown Organization [facility] Address [address] [place] [address]. [place] [address] Care Team Providers Care Industrial Cafeteria Manager Name Role Phone No Ref-Primary, Physician Primary Care Provider Reason for Visit * Reason Comments CLOTTING * Consultation (Priority: 1-2 Weeks) - Pending Review Specialty Diagnoses / Procedures Referred By Contac t Referred To Contact Medical Oncology Diagnoses Pulmonary embolism affecting in second trimester Ana Oreilly MD [address] [place] [phone] Referral ID Status Reason Start Date Expiration Date V isits Requested Visits Authorized [id number] Pending Review 04/12/2023 04/11/2024 1 1 Encounter Details Date Type Department Care Team (Late st Contact Info) Description 04/28/2023 1:30 PM MEDICAL DOCTOR MD/MEDICAL DIRECTOR Office Visit [facility] [address] [place] [phone] Ana Oreilly MD [address] [place] [address] Oleg Aparicio PA-C [address] [place] [address] Pulmonary embolism affecting in second [...] Comments Blood Pressure 113/69 04/28/2023 1:25 PM MEDICAL DOCTOR MD/MEDICAL DIRECTOR Pulse 72 04/28/2023 1:25 PM MEDICAL DOCTOR MD/MEDICAL DIRECTOR Temperature 36.7 ??C (98 ??F) 04/28/2023 1:25 PM MEDICAL DOCTOR MD/MEDICAL DIRECTOR Respiratory Rate - - Oxygen Saturation 98% 04/28/2023 1:25 PM MEDICAL DOCTOR MD/MEDICAL DIRECTOR Inhaled Oxygen Concentration - - Weight 68.9 kg (152 lb) 04/28/2023 1:25 PM MEDICAL DOCTOR MD/MEDICAL DIRECTOR Height 170.2 cm (5' 7) 04/28/2023 1:25 PM MEDICAL DOCTOR MD/MEDICAL DIRECTOR Body Mass Index 23.81 04/28/2023 1:25 PM MEDICAL DOCTOR MD/MEDICAL DIRECTOR documented in this encounter Progress Notes * Oleg Aparicio PA-C - 04/28/2023 1:30 PM CST Images from the original note were not included. [facility] [address] [place] [address] Main: [phone], Patient seen at: [facility] at [address] [place] [address] Outpatient Visit Note: Patient: Gabrielle Mcmahon : 1995 DEBORAH: April 28, 2023 Location of this music writer at the time of this clinic visit was conducted: [facility], [facility]. Location of the patient at the time of this clinic visit was conducted: [facility]. Reason [...] the patient's pulmonary embolism was diagnosed at [facility] and I am unable to find any progress notes, H&P notes or discharge summary of this hospitalization in her records. I am able, however, to see some labs and imaging studies via [facility] Everywhere from [facility]. From what I can gather, Gabrielle was [...] was performed. She then went to the [facility] emergency department on 03/08/2023 with chest pain. [...] today, [facility] [...] the time, her mother was seen at [facility] and from Gabrielle's description, it was consistent with c erebral sinus thrombosis but not entirely clear. Gabrielle report that her mother's blood clot was related to control and her mother is no longer on anticoagulation therapy. Gabrielle is unclear ifother thrombophilia workup was done with her mother. Then on 04/22/2023, this music writer received a call from a nurse at [facility] and was inquiring about her enoxaparin dosing. At the time, this music writer was informed that her Anti-Xa level was subtherapeutic at I belief at 0.3 (again, I am not able to see any [facility]'s or systems notes. 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 I will plan to [...] weeks gestation) to be done at a [facility] so that we can get the result [...] or concerns. Oleg Aparicio PA-C, MPAS Physician Doll Eye Setter [facility]. The longitudinal [...] note. Time IN: 13:30 Time OUT: 14:15 CAL DOCTOR MD/MEDICAL DIRECTOR documented in this encounter Miscellaneous Notes * Addendum Note - Oleg Aparicio PA-C - 04/28/2023 1:30 PM CSTAddended by: OLEG APARICIO on: 04/28/2023 04:09 PM Modules accepted: Orders CAL DOCTOR MD/MEDICAL DIRECTOR documented in this encounter Plan of Treatment Upcoming Encounters Date Type Department Care Team (Late st Contact Info) Description 06/21/2023 9:30 AM CDT Appointment [facility] [place] [address] [facility] [address] [place] [phone] Ori Adame MD [address] [place] [address] [address] [place] [address] 06/21/2023 10:00 AM CDT Office Visit [facility] [place] [address] [place] [phone] Ori Adame MD [address] [place], [place] [address] 07/04/2023 2:30 PM CDT Office Visit [facility] [address] [place] [phone] Oleg Aparicio PA-C [address] [place] [address] Scheduled Orders Name Type Priority Associated Diagnoses Orde r Schedule Low Molecular Weight Heparin Anti Xa Level Lab Routine Pulmonary embolism affecting in second trimester Expected: 06/09/2023 (Approximate), Expires: 04/27/2024 documented as of this encounter Procedures Procedure Name Priority Date/Time Associated Diagnosis Comments LOW MOLECULAR WEIGHT HEPARIN ANTI XA LEVEL Routine 04/28/2023 2:27 PM MEDICAL DOCTOR MD/MEDICAL DIRECTOR Pulmonary embolism affecting in second trimester documented [...] [facility]PROT[facility]ENDO [facility]Prot/Endo [address], Room [address] * Beta 2 Glycoprotein 1 Antibody IgG (05/03/2023 1:03 PM CDT) Beta 2 Glycoprotein 1 Antibody IgG <0.8 <7.0 U/mL 05/04/2023 10:34 AM CDT [facility] SPECIAL[facility] CORE/PROT/END O Comment:Negative Blood BLOOD SPECIMEN / Unknown Venipuncture / Unknown 05/03/2023 1:03 PM CDT 05/03/2023 1:03 PM CDT Oleg Aparicio PA-C LAB - BLOOD ORDERABL ES [facility] SPECIAL[facility] CORE/PROT/ENDO [facility] Special[facility] Core/Prot/Endo [address] [facility] [address], Room [address] * Cardiolipin Angie IgG and IgM [...] [facility] SPECIALTY CORE/PROT/ENDO [facility] Specialty Core/Prot/Endo [address] [facility] [address], Room [address] * (ABNORMAL) Lupus Anticoagulant Panel (05/03/2023 [...] of an antiphospholipid syndrome, recommend anticardiolipin and pwke-4-sadujsypvun n (IgG and IgM) antibody tests. Recommend [...] UM SPECIAL COAGULATION [facility] Special Coagulation [address] [facility] [address], Room [address] [place] [address], [facility] * Low Molecular Weight Heparin [...] LAB - BLOOD ORDERABL ES [facility] LABORATORY [facility] Core Lab [address] [facility], [address] [place] [address], [facility] * Low Molecular Weight Heparin Anti Xa Level (04/28/2023 2:27 PM MEDICAL DOCTOR MD/MEDICAL DIRECTOR) Anti Xa Low Molecular Weight 0.42 For Reference Range, See Comment IU/mL 04/28/2023 2:53 PM MEDICAL DOCTOR MD/MEDICAL DIRECTOR [facility] LAB[facility]ATORY Blood STRUCTURE OF RIGHT UPPER LIMB / Unknown Venipuncture / Unknown 04/28/2023 2:27 PM MEDICAL DOCTOR MD/MEDICAL DIRECTOR 04/28/2023 2:41 PM MEDICAL DOCTOR MD/MEDICAL DIRECTOR Narrative [facility] LAB[facility]ATORY - 04/28/2023 2:53 PM MEDICAL DOCTOR MD/MEDICAL DIRECTOR If collected 4-6 hours after administration: Adults: If administered only once daily with a dose of 1.5 mg/k.0-2.0 IU/mL. If administered twice daily with a dose of 1 mg/k.50-1.0 IU/mL. Pediatrics: If administered twice daily: 0.50-1.0 IU/mL. Oleg Aparicio PA-C LAB - BLOOD ORDERABL ES UR LABORATORY [facility] [address] [place] [address], [facility] [phone] documented in this encounter Visit Diagnoses Diagnosis Pulmonary embolism affecting in second trimester- Primary Family history of blood clots Family history of other blood disorders documented in this encounter Care Teams Industrial Cafeteria Manager Relationship Specialty Start Date End Date No Ref-Primary, Physician PCP - General 03/31/23 documented as of this encounter
--- OUTSIDE RECORDS SUMMARY | 2023-06-13 11:52 | XMS_ITS | Encounter Summary ---
Author Name Unknown Organization [facility] Address [address] [place] [address]. [place] [address] Care Team Providers Care Pouring Crane Operator Name Role Phone Unavailable Primary Care Provider Unavailabl e Reason for Referral * Consultation (Routine: Next available opening) - Pending Review Specialty Diagnoses / Procedures Referred By Contac t Referred To Contact Diagnoses Pulmonary embolism affecting in second trimester History of delivery, currently Ori Adame MD [address] [address] Referral ID Status Reason Start Date Expiration Date V isits Requested Visits Authorized [id number] Pending Review 03/10/2023 03/09/2024 1 1 Question Answer MFM Consult Yes Comments PAC GE GROWER * Diagnostic Imaging Ultrasound (Routine) - Pending Review Specialty Diagnoses / Procedures Referred By Contac t Referred To Contact Radiology. Diagnoses Pulmonary embolism affecting in second trimester History of delivery, currently Procedures [facility] US Comprehensive Single Ori Adame MD [address] [facility] [address] [place] [address] Referral ID Status Reason Start Date Expiration Date V isits Requested Visits Authorized [id number] Pending Review 03/10/2023 03/09/2024 1 1 GE GROWER Encounter Details Date Type Department Care Team (Late st Contact Info) Description 03/10/2023 [facility] [address] [place] [phone] Nyla Garcia RN Pulmonary embolism affecting in [...] Upcoming Encounters Date Type Department Care Team ([facility] st Contact Info) Description 06/21/2023 9:30 AM CDT Appointment [facility] Maternal Medicine [facility] [address] [facility] [address] [place] [phone] Ori Adame MD [address] [address] 06/21/2023 10:00 AM CDT Office Visit [facility] Maternal Medicine [facility] [address] [facility] [address] [place] [phone] Ori Adame MD [address] [facility] [address] [phone] 07/04/2023 2:30 PM CDT Office Visit [facility] [address] [facility] [address] [place] [phone] Oleg Aparicio PA-C [address] [place] [address] [address] [place], [place] [phone] Scheduled Referrals Name Type Priority Associated Diagnoses Orde r Schedule [facility] Office Visit Referral Routine: Next available opening Pulmonary embolism affecting in second trimester History of delivery, currently Expected: 03/10/2023 (Approximate), Expires: 03/10/2024 documented as of this encounter Results * [facility] US Comprehensive Single (04/12/2023 10:26 AM ORANGE GROWER) Anatomical Region Laterality Modality Ultrasound 04/12/2023 9:24 AM ORANGE GROWER Impressions 04/12/2023 3:24 PM ORANGE GROWER IMPRESSION ----- 1. Barnett intrauterine at 19w [...] long and closed. Narrative 04/12/2023 3:24 PM ORANGE GROWER ?Comprehensive ----- Pat. Name: GABRIELLE CLEVELAND ? Study Date: ??04/12/2023 9:24am Pat. NO: ??[id number] ?Referring ??: TRISTA MELLO Site: ??[employer] ? Sales Representative Aircraft: Edda Ayala RDMS : ??1995 ?Age: ?? [...] 0 lb 9 ?oz EFW by ?Hadlock ([id number]) Head / Face / Neck Biometry: Multimedia Journalist ? 6.4 ? mm CM ?1.7 ? [...] cava. Inferior vena cava. 3-vessel ? view. 5-twognm-rjhpvvy view. Cardiac position. Cardiac size. Cardiac rhythm. [...] AVELTAYLERDARRIN Study Date: 04/12/2023 9:24am Pat. NO: [id number] Referring MD: TRISTA MELLO Site: [employer] Sales Representative Aircraft: Edda Ayala RDMS : 1995 Age: 27 [...] 0 lb 9 oz EFW by Hadlock ([id number]) Head / Face / Neck Biometry: Multimedia Journalist 6.4 mm CM 1.7 mm Nasal bone [...] Superior venacava. Inferior vena cava. 3-vessel view. 1-meksob-zjnbltv view.Cardiac position. Cardiac size. Cardiac rhythm. Right [...] appears long and closed. Ori Adame MD [facility] US ORDERABL ES documented in this encounter Visit Diagnoses Diagnosis Pulmonary embolism affecting in second trimester- Primary History of delivery, currently with history of pre-term labor Pulmonary embolism affecting in second trimester History of delivery, currently with history of pre-term labor documented in this encounter
--- OUTSIDE RECORDS SUMMARY | 2023-06-13 11:52 | XMS_ITS | Encounter Summary ---
Author Name Unknown Organization [facility] Address [address] [place] [address] Care Team Providers Care Worksite Wellness Practitioner Name Role Phone No Ref-Primary, Physician Primary [...] Appointment [facility] Maternal Medicine [facility] [address] [place] [phone] Ori Adame MD [address] [facility] [address] [place], [place] [address] 06/21/2023 10:00 AM CDT Office Visit [facility] Maternal Medicine [facility] [address] [place] [phone] Ori Adame MD [address] [place], [place] [address] 07/04/2023 2:30 PM CDT Office Visit [facility] [address] [place] [phone] Oleg Aparicio PA-C [address] [place] [address] documented as of this encounter Visit Diagnoses Not on filedocumented in this encounter Care Teams Worksite Wellness Practitioner Relationship Specialty Start Date End Date No Ref-Primary, Physician PCP - General 03/31/23 documented as of this encounter
== END 2023-04-26 13:01 | disposition home or self-care (01) ==
LOC: NFLDLAB 06-13 11:50
PROVIDERS: PCP Family Medicine; Visit Provider Obstetrics & Gynecology
DX: O88.212 Thromboembolism in pregnancy, second trimester (principal)
CPT/HCPCS: 85520

== ENCOUNTER 2023-04-27 13:53 | Outpatient (CLI) | payer BC, SELFPAY ==
--- NOTE | 2023-04-27 14:00 | US_ITS ---
Patient: YOON CLEVELAND Facility:?[facility] Patient ID:?[id number] Site Patient ID:?[id number]. Site :?1995 Study:?US-OB Pelvis OB CERVICAL CHECK-04/27/2023 2:54:27 PM Ordering Physician:?HUSSEIN ONEIL Final Report: INDICATION: Follow-up cervical length COMPARISON: 01/26/2023 TECHNIQUE: Real time armstrong scale imaging of the fetus. FINDINGS: Sonographic imaging demonstrates a single living intrauterine gestation. Fetus demonstrates a regular cardiac rate of 150 beats per minute. Fetus has a breech position. The placenta lies posteriorly without evidence of placenta previa. Amniotic fluid volume appears normal and there is a single deepest vertical pocket: 4.2 cm. The transvaginal measurement of the cervix is 3.2 cm. The cervix is closed. The placental edge is located 5.7 cm from the internal cervical os. IMPRESSION: Closed cervix measuring 3.2 cm Dictated by Warner Ortiz MD @ 04/28/2023 9:12:16 AM Signed by:?Warner Ortiz MD @04/28/2023 9:12:16 AM (Electronic Signature)
== END 2023-04-27 13:54 | disposition home or self-care (01) ==
LOC: US 13:53
PROVIDERS: PCP Family Medicine; Visit Provider Obstetrics & Gynecology
DX: Z36.86 Encounter for antenatal screening for cervical length (principal)
CPT/HCPCS: 76816; 76817

== ENCOUNTER 2023-06-08 08:32 | Outpatient (CLI) | payer BC, SELFPAY ==
--- OUTSIDE RECORDS SUMMARY | 2023-06-10 06:53 | XMS_ITS | Referral Summary ---
Author Name Unknown Organization [facility] Address [address] [facility] [address] Care Team Providers Care Sole Molding Machine Operator Name Role Phone No Ref-Primary, Physician Primary Care Provider Oleg Aparicio PA-C Unavailable [phone] Ana Oreilly MD Unavailable [phone] Encounters Date Type Department Care Team Description 05/31/2023 Travel 05/31/2023 11:30 AM CDT Office Visit [facility] [address] [place] [address] Ori Adame MD Encounter for ultrasound to check growth (Primary Dx) 05/31/2023 10:45 AM CDT - 05/31/2023 11:59 PM CDT Hospital Encounter [facility] Medicine [facility] [address] [place] [address] Ori Adame MD Encounter for ultrasound to assess growth Discharge Disposition: Home or Self Care 05/10/2023 Travel 05/10/2023 10:00 AM CDT Office Visit [facility] [address] [facility] [address] [place] [address] Ori Adame MD Encounter for follow-up ultrasound of anatomy (Primary Dx); History of delivery, currently ; Encounter for ultrasound to assess growth 05/10/2023 9:28 AM CDT - 05/10/2023 11:59 PM CDT Hospital Encounter [facility] [address] [place] [phone] Ori Adame MD Pulmonary embolism affecting in second trimester Discharge Disposition: Home or Self Care 05/03/2023 1:00 PM CDT Lab [facility] [address] [place] [address] Pulmonary embolism affecting in second trimester; Family history of blood clots 04/28/2023 MyC Medical Advice [facility] [address] [place] [address] Carmen Pollack RN 04/28/2023 Telephone [facility] [address] [place] [address] Oleg Aparicio PA-C 04/28/2023 Travel 04/28/2023 1:30 PM STRAIGHTENING ROLL OPERATOR Office Visit [facility] [address] [place] [address] Ana Oreilly MD Chan, Ricky Y, PA-C Pulmonary embolism affecting in second trimester (Primary Dx); Family history of blood clots 04/27/2023 Travel 04/12/2023 Travel 04/12/2023 9:11 AM STRAIGHTENING ROLL OPERATOR - 04/12/2023 11:59 PM STRAIGHTENING ROLL OPERATOR Hospital Encounter [facility] [place] [address] [place] [address] Ana Oreilly MD Pulmonary embolism affecting in second trimester; History of delivery, currently Discharge Disposition: Home or Self Care 04/12/2023 10:15 AM STRAIGHTENING ROLL OPERATOR Office Visit [facility] [address] [place] [address] Ana Oreilly MD Pulmonary embolism affecting in second trimester (Primary Dx); History of delivery, currently 03/24/2023 PRE VISIT [facility] [address] [place] [address] Alma Soriano, RN Ultrasound (L2- Hx bilateral PE this ); Consult (Hx bilateral PE this ) from Last 3 Months Allergies No known active allergies Medications Medication Sig Dispensed Refills Start Date End Date Status Vit-Fe Fumarate-FA ( VITAMIN PO) Take 1 tablet by mouth daily Active enoxaparin ANTICOAGULANT (LOVENOX) 100 MG/ML syringeIndications:Pu lmonary embolism affecting in second trimester,Family history of blood clots Inject 1 mL (100 mg) Subcutaneous every 12 hours 60 mL 4 04/28/2023 Active Active Problems Problem Noted Date Diagnosed Date History of delivery 04/12/2023 Hyperemesis 04/12/2023 Hemorrhoids 04/12/2023 Low back pain 04/12/2023 Headache 04/12/2023 Fatigue 04/12/2023 Dysuria 04/12/2023 Blurring of visual image 04/12/2023 Bilateral leg pain 04/12/2023 Abdominal bloating 04/12/2023 premature rupture of membranes, delivered, current hospitalization 04/12/2023 Pulmonary embolism 04/12/2023 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 Vaginal itching 04/12/2023 Absence seizure 12/27/2021 Myoclonic jerking 12/27/2021 Estimated Date of Delivery Comme nts Yes 09/04/2023 Based on last me nstrual period of 11/28/2022 Immunizations Name Administration Dates Next Due Influenza Vaccine >6 months,quad, PF 01/25/2022 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 Tobacco Use Types Packs/Day Years Used Date Smoking Tobacco: Never Assessed Tobacco Cessation:Counseling Given: Not Answered Adolescent Education Answer Date Record ed Getting School Help Needed Not on file 11/13 Estimated Date of Delivery Comme nts Yes 09/04/2023 Based on last me nstrual period of 11/28/2022 Sex and Gender Information Value Date Recorded Sex Assigned at Not on file Gender Identity Not on file Sexual Orientation Not on file Last Filed Vital Signs Vital Sign Reading Time Taken Comments Blood Pressure 113/68 05/31/2023 11:07 AM CDT Pulse 88 05/31/2023 11:07 AM CDT Temperature 36.7 ??C (98 ??F) 04/28/2023 1:25 PM STRAIGHTENING ROLL OPERATOR Respiratory Rate 20 04/12/2023 10:58 AM STRAIGHTENING ROLL OPERATOR Oxygen Saturation 99% 05/31/2023 11:07 AM CDT Inhaled Oxygen Concentration - - Weight 68.9 kg (152 lb) 04/28/2023 1:25 PM STRAIGHTENING ROLL OPERATOR Height 170.2 cm (5' 7) 04/28/2023 1:25 PM STRAIGHTENING ROLL OPERATOR Body Mass Index 23.81 04/28/2023 1:25 PM STRAIGHTENING ROLL OPERATOR Plan of Treatment Upcoming Encounters Date Type Department Care Team (Late st Contact Info) Description 06/21/2023 9:30 AM CDT Appointment [facility] [address] [facility] [address] [place] [phone] Ori Adame MD [address] [place], [place] [address] 06/21/2023 10:00 AM CDT Office Visit [facility] [address] [facility] [address] [place] [phone] Ori Adame MD [address] [place], [place] [address] 07/04/2023 2:30 PM CDT Office Visit [facility] [address] [facility] [address] [place] [phone] Oleg Aparicio PA-C [address] [facility] [address] [place], [place] [address] Procedures Procedure Name Priority Date/Time Associated Diagnosis Comments [facility] US COMPREHENSIVE SINGLE F/U Routine 05/31/2023 11:40 AM CDT Encounter for ultrasound to assess growth [facility] US COMPREHENSIVE SINGLE F/U Routine 05/10/2023 10:08 AM CDT Pulmonary embolism affecting in second trimester BETA 2 GLYCOPROTEIN 1 ANTIBODY IGM Routine 05/03/2023 1:03 PM CDT Pulmonary embolism affecting in second trimester Family history of blood clots BETA 2 GLYCOPROTEIN 1 ANTIBODY IGG Routine 05/03/2023 1:03 PM CDT Pulmonary embolism affecting in second trimester Family history of blood clots CARDIOLIPIN MAKENZIE IGG AND IGM Routine 05/03/2023 1:03 PM CDT Pulmonary embolism affecting in second trimester Family history of blood clots LUPUS ANTICOAGULANT PANEL Routine 05/03/2023 1:03 PM CDT Pulmonary embolism affecting in second trimester Family history of blood clots LOW MOLECULAR WEIGHT HEPARIN ANTI XA LEVEL Routine 05/03/2023 1:03 PM CDT Pulmonary embolism affecting in second trimester Family history of blood clots LOW MOLECULAR WEIGHT HEPARIN ANTI XA LEVEL Routine 04/28/2023 2:27 PM STRAIGHTENING ROLL OPERATOR Pulmonary embolism affecting in second trimester [facility] COMPREHENSIVE SINGLE Routine 04/12/2023 10:26 AM STRAIGHTENING ROLL OPERATOR Pulmonary embolism affecting in second trimester History of delivery, currently HCL PAP SMEAR Routine 07/16/1998 1:18 PM CDT Gynecologic Examination from Last 3 Months or Most Recently Relevant to Health Maintenance Results * [facility] Comprehensive Single F/U (05/31/2023 11:40 AM CDT) Only the most recent of2 resultswithin the time period is included. Anatomical Region Laterality Modality Ultrasound 05/31/2023 10:4 9 AM CDT Impressions 05/31/2023 11:50 AM CDT IMPRESSION ----- 1. Barnett at 26w 2d gestational age. 2. None of the anomalies commonly detected by ultrasound were evident in the limited anatomic survey as described above. 3. Growth parameters and estimated weight were consistent with gestational age predicted by assigned GALA. 4. The amniotic fluid volume appeared normal. Narrative 05/31/2023 11:50 AM CDT ?Comp Follow Up ----- Pat. Name: CRISTOFER GABRIELLE ? Study Date: ??05/31/2023 10:49am Pat. NO: ??[id number] ?Referring ??MD: TRISTA MELLO Site: ??[facility] ? Youth Care Worker: Chanda Lazo RDMS : ??1995 ?Age: ?? 28 ----- INDICATION ----- Reevaluate growth. METHOD ----- Transabdominal ultrasound examination. View: Sufficient ----- Barnett . Number of fetuses: 1 DATING ----- ? Date ?Details ?Gest. age ?GALA LMP ?11/28/2022 ? 26 w + 2 d ? 09/04/2023 Prior assessment ? 01/26/2023 ? GA: 8 w + 0 d ?25 w + 6 d ? 09/07/2023 U/S ? 05/31/2023 ?based upon AC, BPD, Femur, HC ? 25 w + 5 d ? 09/08/2023 Assigned dating ?Dating performed on 04/12/2023, based on the LMP ?26 w + 2 d ? 09/04/2023 GENERAL EVALUATION ----- Cardiac activity present. FHR 144 bpm. movements present. Presentation cephalic. Placenta Posterior, No Previa, > 2 cm from internal os. Umbilical cord 3 vessel cord. Amniotic fluid Amount of AF: normal. MVP 6.4 cm. BIOMETRY ----- Main Biometry: BPD ?64.4 ?mm ? 26w 0d ?Hadlock OFD ?83.6 ?mm ? 25w 1d ?Nicolaides HC ?237.7 ?mm ?25w 6d ?Hadlock Cerebellum tr ?28.8 ? mm ?25w 6d ?Nicolaides AC ?208.4 ?mm ?25w 3d ?17% ?Hadlock Femur ?46.5 ? mm ?25w 3d ?Hadlock Humerus ?43.4 ?mm ? 25w 6d ?Jojo Weight Calculation: EFW ? 817 ? g ? 14% ?Hadlock EFW (lb,oz) ? 1 lb 13 ? oz EFW by ?Hadlock ([id number]) Head / Face / Neck Biometry: Microwave Oven Assembler ? 5.7 ? mm CM ?7.7 ? mm ANATOMY ----- The following structures appear normal: Head / Neck ? Cranium. Head size. Head shape. Lateral ventricles. Midline falx. Cavum septi pellucidi. Cerebellum. Cisterna magna. Thalami. Heart / Thorax ?4-chamber view. RVOT view. LVOT view. 8-xqjsgj-pcfxvyu view. ? Diaphragm. Abdomen ? Stomach. Kidneys. Bladder. Spine ?Cervical spine. Thoracic spine. Lumbar spine. Sacral spine. The following structures were documented previously: Face ? Lips. Profile. Nose. MATERNAL STRUCTURES ----- Cervix ?Suboptimal Right Ovary ?Not examined Left Ovary ?Not examined RECOMMENDATION ----- We discussed the findings on today's ultrasound with the patient. A repeat ultrasound has been scheduled in 3 weeks to reevaluate growth. Return to primary provider for continued care. Thank-you for the opportunity to participate in the care of this patient. If you have questions regarding today's evaluation or if we can be of further service, please contact the [facility]. anomalies may be present but not detected Procedure Note Ori Adame MD - 05/31/2023 Comp Follow Up ----- Pat. Name: GABRIELLE CLEVELAND Study Date: 05/31/2023 10:49am Pat. NO: [id number] Referring MD: TRISTA MELLO Site: [facility] Youth Care Worker: Chanda Lazo RDMS : 1995 Age: 28 ----- INDICATION ----- Reevaluate growth. METHOD ----- Transabdominal ultrasound examination. View: Sufficient ----- Barnett . Number of fetuses: 1 DATING ----- DateDetailsGest. age GALA LMP w + 2 d 09/04/2023 Prior assessment 01/26/2023 GA: 8 w +0 d25 w + 6 d 09/07/2023 U/S 05/31/2023ased upon AC, BPD, Femur, HC25 w + 5 d 09/08/2023 Assigned dating Dating performed on 04/12/2023, based onthe LMP 26 w +2 d 09/04/2023 GENERAL EVALUATION ----- Cardiac activity present. FHR 144 bpm. movements present. Presentation cephalic. Placenta Posterior, No Previa, > 2 cm from internal os. Umbilical cord 3 vessel cord. Amniotic fluid Amount of AF: normal. MVP 6.4 cm. BIOMETRY ----- Main Biometry: BPD 64.4 mm26w 0d Hadlock OFD 83.6 mm25w 1d Nicolaides HC 237.7 mm25w 6d Hadlock Cerebellum tr 28.8 mm25w 6d Nicolaides AC 208.4 mm25w 3d 17% Hadlock Femur 46.5 mm25w 3d Hadlock Humerus 43.4 mm25w 6d Jojo Weight Calculation: EFW 817 g14% Hadlock EFW (lb,oz) 1 lb 13 oz EFW by Hadlock ([id number]) Head / Face / Neck Biometry: Microwave Oven Assembler 5.7 mm CM 7.7 mm ANATOMY ----- The following structures appear normal: Head / Neck Cranium. Head size. Head shape.Lateral ventricles. Midline falx. Cavum septi pellucidi. Cerebellum.Cisterna magna. Thalami. Heart / Thorax 4-chamber view. RVOT view. LVOT view.2-xekdby-sjsnccw view. Diaphragm. Abdomen Stomach. Kidneys. Bladder. Spine Cervical spine. Thoracic spine.Lumbar spine. Sacral spine. The following structures were documented previously: Face Lips. Profile. Nose. MATERNAL STRUCTURES ----- Cervix Suboptimal Right Ovary Not examined Left Ovary Not examined RECOMMENDATION ----- We discussed the findings on today's ultrasound with the patient. A repeat ultrasound has been scheduled in 3 weeks to reevaluate fetalgrowth. Return to primary provider for continued care. Thank-you for the opportunity to participate in the care of this patient.If you have questions regarding today's evaluation or if we can be offurther service, please contact the [facility]. anomalies may be present but not detected IMPRESSION ----- 1. Barnett at 26w 2d gestational age. 2. None of the anomalies commonly detected by ultrasound were evident inthe limited anatomic survey as described above. 3. Growth parameters and estimated weight were consistent withgestational age predicted by assigned GALA. 4. The amniotic fluid volume appeared normal. Ori Adame MD [facility] US ORDERABL ES * Cardiolipin Makenzie IgG and IgM (05/03/2023 1:03 PM CDT) Cardiolipin Makenzie IgG Instrument Value <2.0 <10.0 GPL-U/mL 05/04/2023 10:34 AM CDT SPECIALTY CORE/PROT/END O Cardiolipin Antibody IgG Negative Negative 05/04/2023 10:34 AM CDT SPECIALTY CORE/PROT/END O Cardiolipin Makenzie IgM Instrument Value <2.0 <10.0 MPL-U/mL 05/04/2023 10:34 AM CDT [facility] SPECIALTY CORE/PROT/END O Cardiolipin Antibody IgM Negative Negative 05/04/2023 10:34 AM CDT SPECIALTY CORE/PROT/END O Blood BLOOD SPECIMEN / Unknown Venipuncture / Unknown 05/03/2023 1:03 PM CDT 05/03/2023 1:03 PM CDT Oleg Aparicio PA-C LAB - BLOOD ORDERABL ES UM SPECIALTY CORE/PROT/ENDO UM Specialty Core/Prot/Endo [address] [facility], [address] * Beta 2 Glycoprotein 1 Antibody IgM (05/03/2023 1:03 PM CDT) Beta 2 Glycoprotein 1 Antibody IgM <2.4 <7.0 U/mL 05/04/2023 10:34 AM CDT SPECIALTY CORE/PROT/END O Comment:Negative Blood BLOOD SPECIMEN / Unknown Venipuncture / Unknown 05/03/2023 1:03 PM CDT 05/03/2023 1:03 PM CDT Oleg Aparicio PA-C LAB - BLOOD ORDERABL ES Performing Organization Address City/[facility] Co de Phone Number SPECIALTY CORE/PROT/ENDO Specialty Core/Prot/Endo [address] [facility], [address] * Beta 2 Glycoprotein 1 Antibody IgG (05/03/2023 1:03 PM CDT) Beta 2 Glycoprotein 1 Antibody IgG <0.8 <7.0 U/mL 05/04/2023 10:34 AM CDT SPECIALTY CORE/PROT/END O Comment:Negative Blood BLOOD SPECIMEN / Unknown Venipuncture / Unknown 05/03/2023 1:03 PM CDT 05/03/2023 1:03 PM CDT Oleg Aparicio PA-C LAB - BLOOD ORDERABL ES UM SPECIALTY CORE/PROT/ENDO Specialty Core/Prot/Endo [address] [facility], [address] * Low Molecular Weight Heparin Anti Xa Level (05/03/2023 1:03 PM CDT) Only the most recent of2 resultswithin the time period is included. Anti Xa Low Molecular Weight 0.63 For Reference Range, See Comment IU/mL 05/03/2023 5:11 PM CDT [facility] LAB[facility]ATORY Blood BLOOD SPECIMEN / Unknown Venipuncture / Unknown 05/03/2023 1:03 PM CDT 05/03/2023 1:03 PM CDT [facility] - 05/03/2023 5:11 PM CDT If collected 4-6 hours after administration: Adults: If administered only once daily with a dose of 1.5 mg/k.0-2.0 IU/mL. If administered twice daily with a dose of 1 mg/k.50-1.0 IU/mL. Pediatrics: If administered twice daily: 0.50-1.0 IU/mL. lOeg Aparicio PA-C LAB - BLOOD ORDERABL ES U LABORATORY [facility] [place] [facility] [address] [facility], [address] [id number] * (ABNORMAL) Lupus Anticoagulant Panel (05/03/2023 1:03 PM CDT) INR 1.02 0.85 - 1.15 4 2:25 PM CDT [facility] SPECIAL COAGULATION Thrombin Time 19.7(H) 13.0 - 19.0 Seconds 4 2:25 PM CDT [facility]AGULATION PTT Ratio 1.16 <1.21 4 2:25 PM CDT [facility]AG[facility] DRVVT Screen Ratio 0.66 <1.08 4 2:25 PM CDT [facility]AG[facility] Lupus Result Negative Negative 4 2:25 PM CDT [facility] COAGULATION Lupus Interpretation INR is normal. APTT ratio is normal. ?? DRVVT Screen ratio is decreased. Thrombin time is prolonged. NEGATIVE TEST; A LUPUS ANTICOAGULANT WAS NOT DETECTED IN THIS SPECIMEN WITHIN THE LIMITS OF THE TESTING REPERTOIRE. If the clinical picture is strongly suggestive of an antiphospholipid syndrome, recommend anticardiolipin and iiwx-1-zxlentljvjg n (IgG and IgM) antibody tests. Recommend repeat testing on a new sample as decreased clotting times can sometimes be seen with poor specimen quality. Causes of a prolonged Thrombin Time include: hypofibrinogenemia , dysfibrinogenemia, elevated fibrin degradation products (e.g. D-dimer), ??anticoagulants (e.g. heparin and direct thrombin inhibitors), and inhibitors. Elizabeth Chao MD, PhD [facility] 2:25 PM CDT SPECIAL COAGULATION Blood BLOOD SPECIMEN / Unknown Venipuncture / Unknown 05/03/2023 1:03 PM CDT 05/03/2023 1:03 PM CDT Oleg Aparicio PA-C LAB - BLOOD ORDERABL ES SPECIAL COAGULATION UM Special Coagulation [address] [facility], [address] [place] [address], [facility] * [facility] Comprehensive Single (04/12/2023 10:26 AM STRAIGHTENING ROLL OPERATOR) Anatomical Region Laterality Modality Ultrasound 04/12/2023 9:24 AM STRAIGHTENING ROLL OPERATOR Impressions 04/12/2023 3:24 PM STRAIGHTENING ROLL OPERATOR IMPRESSION ----- 1. Barnett intrauterine at 19w 2d gestational age here for evaluation of anatomy. 2. No anomalies commonly detected by ultrasound or soft markers of aneuploidy were identified in the detailed anatomic survey within the limits of ultrasound, however some views were suboptimal, as described above. 3. Growth parameters and estimated weight were consistent with established dates. 4. The amniotic fluid volume appeared normal. 5. On transvaginal imaging the cervix appears long and closed. Narrative 04/12/2023 3:24 PM STRAIGHTENING ROLL OPERATOR ?Comprehensive ----- Pat. Name: GABRIELLE CLEVELAND ? Study Date: ??04/12/2023 9:24am Pat. NO: ??[id number] ?Referring ??MD: TRISTA MELLO Site: [facility] ? Youth Care Worker: Edda Ayala RDMS : ??1995 ?Age: ?? 27 ----- INDICATION ----- Pulmonary embolism in on therapeutic lovenox. History of delivery in prior . METHOD ----- Transabdominal ultrasound examination. Transvaginal ultrasound examination was required to adequately complete the exam. View: Suboptimal view: limited by position ----- Barnett . Number of fetuses: 1 DATING ----- ? Date ?Details ?Gest. age ?GALA LMP ?11/28/2022 ? 19 w + 2 d ? 09/04/2023 Prior assessment ? 01/26/2023 ? GA: 8 w + 0 d ?18 w + 6 d ? 09/07/2023 U/S ? 04/12/2023 ? based upon AC, BPD, Femur, HC ?18 w + 6 d ? 09/07/2023 Assigned dating ?Dating performed on 04/12/2023, based on the LMP ?19 w + 2 d ? 09/04/2023 GENERAL EVALUATION ----- Cardiac activity present. FHR 149 bpm. movements present. Presentation cephalic. Placenta Posterior, No Previa, > 2 cm from internal os. Umbilical cord 3 vessel cord. Amniotic fluid Amount of AF: normal. BIOMETRY ----- Main Biometry: BPD ?44.0 ?mm ? 19w 2d ?Hadlock OFD ?55.2 ?mm ? 18w 2d ?Nicolaides HC ?158.3 ?mm ?18w 5d ?Hadlock Cerebellum tr ?19.5 ? mm ?18w 5d ?Nicolaides AC ?129.5 ?mm ?18w 3d ?21% ?Hadlock Femur ?29.2 ? mm ?19w 0d ?Hadlock Humerus ?27.7 ?mm ? 18w 6d ?Jojo Weight Calculation: EFW ? 255 ? g ? 18% ?Hadlock EFW (lb,oz) ? 0 lb 9 ?oz EFW by ?Hadlock ([id number]) Head / Face / Neck Biometry: Microwave Oven Assembler ? 6.4 ? mm CM ?1.7 ? mm Nasal bone ? 6.3 ? mm ? present Nuchal fold ? 3.7 ? mm Urinary Tract Biometry: Rt Renal pelvis ap ? 1.1 ? mm Lt Renal pelvis ap ? 0.9 ?mm ANATOMY ----- The following structures appear normal: Head / Neck ? Cranium. Head size. Head shape. Lateral ventricles. Choroid plexus. Midline falx. Cavum septi pellucidi. Cerebellum. Cisterna magna. ? Parenchyma. Thalami. Vermis. ? Neck. Nuchal fold. Face ? Lips. Nose. Orbits. Lens. Heart / Thorax ?4-chamber view. RVOT view. LVOT view. Situs. Aortic arch view. Bicaval view. Ductal arch view. Superior vena cava. Inferior vena cava. 3-vessel ? view. 4-hagthk-jdvadfn view. Cardiac position. Cardiac size. Cardiac rhythm. ? Right lung. Left lung. Diaphragm. Abdomen ? Abdominal wall. Cord insertion. Stomach. Kidneys. Bladder. Liver. Bowel. Spine ?Cervical spine. Thoracic spine. Extremities / Skeleton ?Right arm. Right hand. Left arm. Left hand. Right leg. Right foot. Left leg. Left foot. The following structures could not be adequately visualized: Face ? Profile. Maxilla. Mandible. Abdomen ? Genitals. Spine ?Lumbar spine. Sacral spine. MATERNAL STRUCTURES ----- Cervix ?Visualized ? Appearance: Appears Closed ? Approach - Transvaginal: Cervical length 35.8 mm Right Ovary ?Visualized Left Ovary ?Not visualized RECOMMENDATION ----- Thank-you for referring your patient for MFM consult & ultrasound assessment. I discussed the findings on today's ultrasound with the patient. I reviewed the limitations of ultrasound both in detecting aneuploidy and structural abnormalities. Ultrasound can routinely detect 80-90% of structural abnormalities. She has not had genetic screening this . Please see separate note in Epic for full details from today's consult visit including recommendations for ongoing management. Follow-up is scheduled with our office in 4 weeks to reevaluate anatomy, growth, and repeat cervical length screening. Return to primary provider for continued care. If you have questions regarding today's evaluation or if we can be of further service, please contact the [facility]. anomalies may be present but not detected Procedure Note Ana Oreilly MD - 04/12/2023 Comprehensive ----- Pat. Name: GABRIELLE CLEVELAND Study Date: 04/12/2023 9:24am Pat. NO: [id number] Referring MD: TRISTA MELLO Site: [facility] Youth Care Worker: Edda Ayala RDMS : 1995 Age: 27 ----- INDICATION ----- Pulmonary embolism in on therapeutic lovenox. History of delivery in prior . METHOD ----- Transabdominal ultrasound examination. Transvaginal ultrasound examinationwas required to adequately complete the exam. View: Suboptimal view:limited by position ----- Barnett . Number of fetuses: 1 DATING ----- DateDetailsGest. age GALA LMP w + 2 d 09/04/2023 Prior assessment 01/26/2023 GA: 8 w +0 d18 w + 6 d 09/07/2023 U/S 04/12/2023ased upon AC, BPD, Femur, HC18 w + 6 d 09/07/2023 Assigned dating Dating performed on 04/12/2023, based onthe LMP 19 w +2 d 09/04/2023 GENERAL EVALUATION ----- Cardiac activity present. FHR 149 bpm. movements present. Presentation cephalic. Placenta Posterior, No Previa, > 2 cm from internal os. Umbilical cord 3 vessel cord. Amniotic fluid Amount of AF: normal. BIOMETRY ----- Main Biometry: BPD 44.0 mm19w 2d Hadlock OFD 55.2 mm18w 2d Nicolaides HC 158.3 mm18w 5d Hadlock Cerebellum tr 19.5 mm18w 5d Nicolaides AC 129.5 mm18w 3d 21% Hadlock Femur 29.2 mm19w 0d Hadlock Humerus 27.7 mm18w 6d Jojo Weight Calculation: EFW 255 g18% Hadlock EFW (lb,oz) 0 lb 9 oz EFW by Hadlock ([id number]) Head / Face / Neck Biometry: Microwave Oven Assembler 6.4 mm CM 1.7 mm Nasal bone 6.3 mmpresent Nuchal fold 3.7 mm Urinary Tract Biometry: Rt Renal pelvis ap 1.1 mm Lt Renal pelvis ap 0.9 mm ANATOMY ----- The following structures appear normal: Head / Neck Cranium. Head size. Head shape.Lateral ventricles. Choroid plexus. Midline falx. Cavum septi pellucidi.Cerebellum. Cisterna magna. Parenchyma. Thalami. Vermis. Neck. Nuchal fold. Face Lips. Nose. Orbits. Lens. Heart / Thorax 4-chamber view. RVOT view. LVOT view.Situs. Aortic arch view. Bicaval view. Ductal arch view. Superior venacava. Inferior vena cava. 3-vessel view. 0-ivlpms-vsrsqua view.Cardiac position. Cardiac size. Cardiac rhythm. Right lung. Left lung.Diaphragm. Abdomen Abdominal wall. Cord insertion.Stomach. Kidneys. Bladder. Liver. Bowel. Spine Cervical spine. Thoracic spine. Extremities / Skeleton Right arm. Right hand. Left arm. Lefthand. Right leg. Right foot. Left leg. Left foot. The following structures could not be adequately visualized: Face Profile. Maxilla. Mandible. Abdomen Genitals. Spine Lumbar spine. Sacral spine. MATERNAL STRUCTURES ----- Cervix Visualized Appearance: Appears Closed Approach - Transvaginal:Cervical length 35.8 mm Right Ovary Visualized Left Ovary Not visualized RECOMMENDATION ----- Thank-you for referring your patient for [facility] consult & ultrasoundassessment. I discussed the findings on today's ultrasound with the patient. Ireviewed the limitations of ultrasound both in detecting aneuploidy andstructural abnormalities. Ultrasound can routinely detect 80-90% of structural abnormalities. She has not hadgenetic screening this . Please see separate note in Epic for full details from today's consultvisit including recommendations for ongoing management. Follow-up is scheduled with our office in 4 weeks to reevaluate fetalanatomy, growth, and repeat cervical length screening. Return to primary provider for continued care. If you have questions regarding today's evaluation or if we can be offurther service, please contact the [facility]. anomalies may be present but not detected IMPRESSION ----- 1. Barnett intrauterine at 19w 2d gestational age here forevaluation of anatomy. 2. No anomalies commonly detected by ultrasound or soft markers ofaneuploidy were identified in the detailed anatomic survey withinthe limits of ultrasound, however some views were suboptimal, as described above. 3. Growth parameters and estimated weight were consistent withestablished dates. 4. The amniotic fluid volume appeared normal. 5. On transvaginal imaging the cervix appears long and closed. Ori Adame MD G [facility] US ORDERABL ES * PAP SMEAR (07/16/1998 1:18 PM CDT) Unlabelled [facility] Biopsy Sent [facility] Source VAG,CERV,E NDOCERV [facility] LMP POST [facility] PARA 3 [facility] 2 [facility] Clinical History [facility] Last Pap Diagnosis WITHIN NORMAL LIMITS [facility] PAP Date [id number] [facility] Specimen # DNR [facility] Tissue DNR [facility] Tissue Date DNR [facility] Statement of Adequacy [facility] Comment: SATISFACTORY FOR INTERPRETATION POST MENOPAUSAL PATIENT. ??NO ENDOCERVICAL CELLS SEEN. General Categorization DNR [facility] Descriptive Diagnosis [facility] Comment: WITHIN NORMAL LIMITS ATROPHIC CELL PATTERN Recommendations DNR [facility] DNR 114,,,,,, [facility] DNR DNR [facility] DNR DNR [facility] DNR DNR [facility] . [facility] Comment: ?PAP SMEARS ARE SUBJECT TO BOTH FALSE NEGATIVE AND FALSE ? POSITIVE RESULTS EVIDENCED BY DATA PUBLISHED IN THE ? MEDICAL LITERATURE. ??YOUR PATIENT'S RESULT SHOULD BE ? INTERPRETED IN THIS CONTEXT, TOGETHER WITH THE PATIENT'S ? HISTORY AND CLINICAL FINDINGS. TESTING LOCATION ? [facility] [address]. [id number] ? PHONE NUMBERS FOR CYTOLOGY INQUIRES, INCLUDING SLIDE REQUESTS ? EXT. [id number] ?? EXT. 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
--- OUTSIDE RECORDS SUMMARY | 2023-06-10 06:53 | XMS_ITS | Encounter Summary ---
Author Name Unknown Organization [place] Address [address] [place] [address] Care Team Providers Care Data Technician Name Role Phone No Ref-Primary, Physician Primary Care Provider Oleg Aparicio PA-C Unavailable [phone] Ana Oreilly MD Unavailable [phone] Reason for Referral * Diagnostic Imaging Ultrasound (Routine) - Pending Review Specialty Diagnoses / Procedures Referred By Diana garcia Referred To Contact Radiology. Diagnoses Encounter for ultrasound to check growth Procedures [facility] US Comprehensive Single F/U Ori Adame MD [address] [place] [address] Referral ID Status Reason Start Date Expiration Date V isits Requested Visits Authorized [id number] Pending Review 05/31/2023 05/30/2024 1 1 Reason for Visit * Reason Comments Ultrasound RL2-reassess g rowth, EFW 15% Encounter Details Date Type Department Care Team (Late st Contact Info) Description 05/31/2023 11:30 AM CDT Office Visit [facility] [place] [address] [place] [address] Ori Adame MD [address] [place] [address] Encounter for ultrasound to check growth (Primary Dx) 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 Tobacco Use Types Packs/Day Years Used Date Smoking Tobacco: Never Assessed Adolescent Education Answer Date Record ed Getting School Help Needed Not on file 11/13 Estimated Date of Delivery Comme nts Yes 09/04/2023 Based on last me nstrual period of 11/28/2022 Sex and Gender Information Value Date Recorded Sex Assigned at Not on file Gender Identity Not on file Sexual Orientation Not on file documented as of this encounter Last Filed Vital Signs Vital Sign Reading Time Taken Comments Blood Pressure 113/68 05/31/2023 11:07 AM CDT Pulse 88 05/31/2023 11:07 AM CDT Temperature - - Respiratory Rate - - Oxygen Saturation 99% 05/31/2023 11:07 AM CDT Inhaled Oxygen Concentration - - Weight - - Height - - Body Mass Index - - documented in this encounter Progress Notes * Ori Adame MD - 05/31/2023 11:30 AM CDT Please see Imaging tab under Chart Review for details of today's US at the [facility]. Ori Adame MD [facility] documented in this encounter Nursing Notes * Mara Cheung RN - 05/31/2023 11:30 AM CDT Patient reports good movement, denies contractions, leaking of fluid, or bleeding. Patient reports that it takes a little more to take a deep breath lately, thinks related to the . Patient denies SOB and is breathing comfortably and VSS. Encouraged patient to contact primary OB givenhistory of PE. SBAR given to [facility] (Dr. Adame), see their note in Epic. documented in this encounter Plan of Treatment Upcoming Encounters Date Type Department Care Team (Late st Contact Info) Description 06/21/2023 9:30 AM CDT Appointment [facility] [place] [address] [place] [address] Ori Adame MD [address] [place] [address] 06/21/2023 10:00 AM CDT Office Visit [facility] [place] [address] [place] [phone] Ori Adame MD [address] [place] [address] 07/04/2023 2:30 PM CDT Office Visit [facility] [address] [place] [phone] Oleg Aparicio PA-C [address] [place], [place] [phone] Scheduled Orders Name Type Priority Associated Diagnoses Orde r Schedule [facility] US Comprehensive Single F/U Imaging Routine Encounter for ultrasound to check growth Expected: 06/21/2023 (Approximate), Expires: 05/30/2024 documented as of this encounter Visit Diagnoses Diagnosis Encounter for ultrasound to check growth- Primary documented in this encounter Care Teams Data Technician Relationship Specialty Start Date End Date No Ref-Primary, Physician PCP - General 03/31/23 Oleg Aparicio, RUPAL [address] [place], [place] [address] Assigned Cancer Care Provider 05/06/23 Ana Oreilly MD [address] [place], [place] [phone] Assigned OBGYN Provider 05/06/23 documented as of this encounter
--- OUTSIDE RECORDS SUMMARY | 2023-06-10 06:53 | XMS_ITS | Encounter Summary ---
Author Name Unknown Organization [place] Address [facility] [place] [address] Care Team Providers Care Pararescue Manager Name Role Phone No Ref-Primary, Physician Primary Care Provider Oleg Aparicio PA-C Unavailable [phone] Ana Oreilly MD Unavailable [phone] Reason for Referral * Diagnostic Imaging Ultrasound (Routine) - Pending Review Specialty Diagnoses / Procedures Referred By Contac t Referred To Contact Radiology. Diagnoses related condition, antepartum Procedures [facility] US Comprehensive Single F/U Ori Adame MD [address] [place], [place] [address] [address] [address] Referral ID Status Reason Start Date Expiration Date V isits Requested Visits Authorized [id number] Pending Review 05/10/2023 05/09/2024 1 1 Reason for Visit * Diagnostic Imaging Ultrasound (Routine) - Pending Review Specialty Diagnoses / Procedures Referred By Contac t Referred To Contact Radiology. Diagnoses related condition, antepartum Procedures [facility] US Comprehensive Single F/U Ori Adame MD [address] [place] [address] Referral ID Status Reason Start Date Expiration Date V isits Requested Visits Authorized [id number] Pending Review 05/10/2023 05/09/2024 1 1 Encounter Details Date Type Department Care Team (Latest Contact Info) Description 05/31/2023 10:45 AM CDT - 05/31/2023 11:59 PM CDT Hospital Encounter [facility] [place] [address] [place] [phone] Ori Adame MD [address] [place], [place] [address] Encounter for ultrasound to assess growth Discharge Disposition: Home or Self Care 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 Tobacco Use Types Packs/Day Years [...] on file documented as of this encounter Medications at Time of Discharge Medication Sig Dispensed Refills Start Date End Date enoxaparin ANTICOAGULANT (LOVENOX) 100 MG/ML syringeIndications:Pulmo nary embolism affecting in second trimester,Family history of blood clots Inject 1 mL (100 mg) Subcutaneous every 12 hours 60 mL 4 04/28/2023 Vit-Fe Fumarate-FA ( VITAMIN PO) Take 1 tablet by mouth daily documented as of this encounter Plan of Treatment Upcoming Encounters Date Type Department Care Team (Late st Contact Info) Description 06/21/2023 9:30 AM CDT Appointment [facility] [place] [address] [place] [phone] Ori Adame MD [address] [place], [place] [address] 06/21/2023 10:00 AM CDT Office Visit [facility] [place] [address] [place] [phone] Ori Adame MD [address] [place], [place] [address] 07/04/2023 2:30 PM CDT Office Visit [facility] [address] [place] [address] Oleg Aparicio PA-C [address] [place], [place] [address] documented as of this encounter Procedures Procedure Name Priority Date/Time Associated Diagnosis Comments [facility] US COMPREHENSIVE SINGLE F/U Routine 05/31/2023 11:40 AM CDT Encounter for ultrasound to assess growth documented in this encounter Results * [facility] US Comprehensive Single F/U (05/31/2023 11:40 AM CDT) Anatomical Region Laterality Modality Ultrasound 05/31/2023 10:4 [...] CDT ?Comp Follow Up ----- Pat. Name: GABRIELLE [place] ? Study Date: ??05/31/2023 10:49am Pat. NO: ??[id number] ?Referring ??MD: TRISTA MELLO Site: ??[facility] ? Physician Office Rep: Chanda Lazo RDMS : ??1995 ?Age: ?? [...] lb 13 ? oz EFW by ?Hadlock ([id number]) Head / Face / Neck Biometry: Lead Setter ? 5.7 ? mm CM ?7.7 ? mm ANATOMY ----- The following structures appear normal: Head / Neck ? Cranium. Head size. Head shape. Lateral ventricles. Midline falx. Cavum septi pellucidi. Cerebellum. Cisterna magna. Thalami. Heart / Thorax ?4-chamber view. RVOT view. LVOT view. 7-pippig-smxugco view. ? Diaphragm. Abdomen ? Stomach. Kidneys. [...] [place] Study Date: 05/31/2023 10:49am Pat. NO: [id number] Referring MD: TRISTA MELLO Site: [facility] Physician Office Rep: Chanda Lazo RDMS : 1995 Age: 28 ----- INDICATION ----- Reevaluate growth. METHOD ----- Transabdominal ultrasound examination. View: Sufficient ----- Barnett . Number of fetuses: 1 DATING ----- DateDetailsGest. age GALA LMP w + 2 d 09/04/2023 Prior assessment 01/26/2023 GA: 8 w +0 d25 w + 6 d 09/07/2023 U/S 4based upon AC, BPD, Femur, HC25 w + [...] 1 lb 13 oz EFW by Hadlock ([id number]) Head / Face / Neck Biometry: Lead Setter 5.7 mm CM 7.7 mm ANATOMY ----- The following structures appear normal: Head / Neck Cranium. Head size. Head shape.Lateral ventricles. Midline falx. Cavum septi pellucidi. Cerebellum.Cisterna magna. Thalami. Heart / Thorax 4-chamber view. RVOT view. LVOT view.4-fwgojd-cllbhtp view. Diaphragm. Abdomen Stomach. Kidneys. Bladder. Spine [...] fluid volume appeared normal. Ori Adame MD [facility] US ORDERABL ES documented in this encounter Visit Diagnoses Diagnosis Encounter for ultrasound to assess growth documented in this encounter Care Teams Pararescue Manager Relationship Specialty Start Date End Date No Ref-Primary, Physician PCP - General 03/31/23 Oleg Aparicio, JULIAC [address] [place] [address] Assigned Cancer Care Provider 05/06/23 Ana Oreilly MD [address] [place], [place] [phone] Assigned OBGYN Provider 05/06/23 documented as of this encounter
--- OUTSIDE RECORDS SUMMARY | 2023-06-10 06:53 | XMS_ITS | Clinical Summary ---
Author Name Unknown Organization [facility] Address [address] [place] [address]. [place] [address] Care Team Providers Care Customer Support Coordinator Name Role Phone No Ref-Primary, Physician Primary Care Provider Oleg Aparicio PA-C Unavailable [phone] Ana Oreilly MD Unavailable [phone] Allergies No known active allergies Medications Medication [...] on last me nstrual period of 11/28/2022 Encounters Date Type Department Care Team Description 05/31/2023 11:30 AM CDT Office Visit [facility] Maternal Medicine [facility] [address] [place] [address] Ori Adame MD Encounter for ultrasound to check growth (Primary Dx) 05/31/2023 10:45 AM CDT - 05/31/2023 11:59 PM CDT Hospital Encounter [facility] [place] [address] [place] [address] Ori Adame MD Encounter for ultrasound to assess growth Discharge Disposition: Home or Self Care 05/31/2023 Travel 05/10/2023 10:00 AM CDT Office Visit [facility] [place] [address] [facility] [address] [place] [address] Ori Adame MD Encounter for follow-up ultrasound of anatomy (Primary Dx); History of delivery, currently ; Encounter for ultrasound to assess growth 05/10/2023 9:28 AM CDT - 05/10/2023 11:59 PM CDT Hospital Encounter [facility] Medicine [place] [address] [facility] [address] [place] [phone] Ori Adame MD Pulmonary embolism affecting in second trimester Discharge Disposition: Home or Self Care 05/10/2023 Travel 05/03/2023 1:00 PM CDT Lab [facility] [address] [place] [phone] Pulmonary embolism affecting in second trimester; Family history of blood clots 04/28/2023 1:30 PM LEAD APPLICATIONS DEVELOPER Office Visit [facility] [address] [place] [phone] Ana Oreilly MD Chan, Ricky Y, RUPAL Pulmonary embolism affecting in second trimester (Primary Dx); Family history of blood clots 04/28/2023 MyC Medical Advice [facility] [place] [address], [place] [phone] Carmen Pollack, MAC 04/28/2023 Telephone [facility] [address] [place] [phone] Oleg Aparicio PA-C 04/28/2023 Travel 04/27/2023 Travel 04/12/2023 10:15 AM LEAD APPLICATIONS DEVELOPER Office Visit [facility] [place] [address] [place] [address] Ana Oreilly MD Pulmonary embolism affecting in second trimester (Primary Dx); History of delivery, currently 04/12/2023 9:11 AM LEAD APPLICATIONS DEVELOPER - 04/12/2023 11:59 PM LEAD APPLICATIONS DEVELOPER Hospital Encounter [facility] [place] [address] [place] [phone] Ana Oreilly MD Pulmonary embolism affecting in second trimester; History of delivery, currently Discharge Disposition: Home or Self Care 04/12/2023 Travel 03/24/2023 PRE VISIT [facility] [place] [address] [place] [address] Alma Soriano, RN Ultrasound (L2- Hx bilateral PE this ); Consult (Hx bilateral PE this ) from Last 3 Months Immunizations Name Administration Dates Next Due Influenza [...] 36.7 ??C (98 ??F) 04/28/2023 1:25 PM LEAD APPLICATIONS DEVELOPER Respiratory Rate 20 04/12/2023 10:58 AM LEAD APPLICATIONS DEVELOPER Oxygen Saturation 99% 05/31/2023 11:07 AM CDT Inhaled Oxygen Concentration - - Weight 68.9 kg (152 lb) 04/28/2023 1:25 PM LEAD APPLICATIONS DEVELOPER Height 170.2 cm (5' 7) 04/28/2023 1:25 PM LEAD APPLICATIONS DEVELOPER Body Mass Index 23.81 04/28/2023 1:25 PM LEAD APPLICATIONS DEVELOPER Plan of Treatment Upcoming Encounters Date Type Department Care Team (Late st Contact Info) Description 06/21/2023 9:30 AM CDT Appointment [facility] Maternal Medicine [facility] [address] [facility] [address] [place] [phone] Ori Adame MD [address] [place], [place] [address] 06/21/2023 10:00 AM CDT Office Visit [facility] Maternal Medicine [facility] [address] [facility] [address] [place] [phone] Ori Adame MD [address] [place], [place] [phone] 07/04/2023 2:30 PM CDT Office Visit [facility] [address] [facility] [address] [place] [phone] Oleg Aparicio PA-C [address] [facility] [address] [place], [place] [phone] Health Maintenance Due Date Last Done Comments ADVANCE CARE PLANNING 1997 ANNUAL REVIEW OF HM ORDERS 1997 YEARLY PREVENTIVE VISIT 1997 HIV SCREENING 2012 HPV IMMUNIZATION (1 - 3-dose series) 2012 HEPATITIS C SCREENING 05/13/2015 HEPATITIS B IMMUNIZATION (1 of 3 - 19+ 3-dose series) 2016 DTAP/TDAP/TD IMMUNIZATION (1 - Tdap) 2022 COVID-19 Vaccine (1 - 2022-2 4 season) 2022 INFLUENZA VACCINE (#1) 2022 01/25/2022 MATERNAL SCREENING DISCUSSION 02/06/2023 PHQ-2 (once per calendar year) 2023 OBGCT (OB) 05/15/2023 PAP 12/12/2023 12/11/2020 IPV IMMUNIZATION Aged Out No longer e ligible based on patient's age to complete this topic MENINGITIS IMMUNIZATION Aged Out No l onger eligible based on patient's age to complete this topic Pneumococcal Vaccine: Pediat rics (0 to 5 Years) and At-Risk Patients (6 to 64 Years) Aged Out No longer eligi ble based on patient's age to complete this topic RSV MONOCLONAL ANTIBODY Aged Out No l onger eligible based on patient's age to complete this topic RSV VACCINE ( & 60+ ) (No Doses Required) Completed Procedures Procedure Name Priority Date/Time Associated Diagnosis Comments [facility] COMPREHENSIVE SINGLE F/U Routine 05/31/2023 11:40 AM CDT Encounter for ultrasound to assess growth [facility] COMPREHENSIVE SINGLE F/U Routine 05/10/2023 10:08 AM [...] ANTI XA LEVEL Routine 04/28/2023 2:27 PM LEAD APPLICATIONS DEVELOPER Pulmonary embolism affecting in second trimester [facility] US COMPREHENSIVE SINGLE Routine 04/12/2023 10:26 AM LEAD APPLICATIONS DEVELOPER Pulmonary embolism affecting in second trimester History of delivery, currently HCL PAP SMEAR Routine 07/16/1998 1:18 PM CDT Gynecologic Examination from Last 3 Months or Most Recently Relevant to Health Maintenance Results * [facility] Comprehensive Single F/U (05/31/2023 11:40 AM CDT) [...] ? Study Date: ??05/31/2023 10:49am Pat. NO: ??[id number] ?Referring ??MD: TRISTA MELLO Site: ??[facility] ? Automation Engineer: Chanda Lazo [facility] : ??1995 ?Age: ?? 28 ----- INDICATION [...] Biometry: BPD ?64.4 ?mm ? 26w 0d ?George OFIggy ?83.6 ?mm ? 25w 1d ?Nicolaides ?237.7 ?mm ?25w 6d ?Hadlock Cerebellum tr ?28.8 ? mm ?25w 6d ?Nicolaides AC ?208.4 ?mm ?25w 3d ?17% ?Hadlock Femur ?46.5 ? mm ?25w 3d ?Hadlock Humerus ?43.4 ?mm ? 25w 6d ?Jojo Weight Calculation: EFW ? 817 ? g ? 14% ?Hadlock EFW (lb,oz) ? 1 lb 13 ? oz EFW by ?Hadlock ([id number]) Head / Face / Neck Biometry: Power Generating Plant Operator ? 5.7 ? mm CM ?7.7 ? mm ANATOMY ----- The following structures appear normal: Head / Neck ? Cranium. Head size. Head shape. Lateral ventricles. Midline falx. Cavum septi pellucidi. Cerebellum. Cisterna magna. Thalami. Heart / Thorax ?4-chamber view. RVOT view. LVOT view. 4-mwjkhl-zzhywcu view. ? Diaphragm. Abdomen ? Stomach. Kidneys. [...] [place] Study Date: 05/31/2023 10:49am Pat. NO: [id number] Referring MD: TRISTA MELLO Site: [facility] Automation Engineer: Chanda Lazo RDMS : 1995 Age: 28 ----- INDICATION ----- Reevaluate growth. METHOD ----- Transabdominal ultrasound examination. View: Sufficient ----- Barnett . Number of fetuses: 1 DATING ----- DateDetailsGest. age GALA LMP w + 2 d 09/04/2023 Prior assessment 01/26/2023 GA: 8 w +0 d25 w + 6 d 09/07/2023 U/S 4/9/2024based upon AC, BPD, Femur, HC25 w + [...] 1 lb 13 oz EFW by Hadlock ([id number]) Head / Face / Neck Biometry: Power Generating Plant Operator 5.7 mm CM 7.7 mm ANATOMY ----- The following structures appear normal: Head / Neck Cranium. Head size. Head shape.Lateral ventricles. Midline falx. Cavum septi pellucidi. Cerebellum.Cisterna magna. Thalami. Heart / Thorax 4-chamber view. RVOT view. LVOT view.1-cpxitc-ozlegwx view. Diaphragm. Abdomen Stomach. Kidneys. Bladder. Spine [...] fluid volume appeared normal. Ori Adame MD [facility] US ORDERABL ES * Cardiolipin Makenzie IgG and IgM (05/03/2023 1:03 PM CDT) Cardiolipin Makenzie IgG Instrument Value <2.0 <10.0 GPL-U/mL 05/04/2023 10:34 AM CDT SPECIALTY CORE/PROT/END O Cardiolipin Antibody IgG Negative Negative 05/04/2023 10:34 AM CDT SPECIALTY CORE/PROT/END O Cardiolipin Makenzie IgM Instrument Value <2.0 <10.0 MPL-U/mL 05/04/2023 10:34 AM CDT SPECIALTY CORE/PROT/END O Cardiolipin Antibody IgM Negative Negative 05/04/2023 10:34 AM CDT SPECIALTY CORE/PROT/END O Blood BLOOD SPECIMEN / Unknown Venipuncture / Unknown 05/03/2023 1:03 PM CDT 05/03/2023 1:03 PM CDT Oleg Aparicio PA-C LAB - BLOOD ORDERABL ES [facility] SPECIALTY CORE/PROT/ENDO UM Specialty Core/Prot/Endo [address], [address] [place] [address], [facility] * Beta 2 Glycoprotein 1 Antibody IgM (05/03/2023 1:03 PM CDT) Beta 2 Glycoprotein 1 Antibody IgM <2.4 <7.0 U/mL 05/04/2023 10:34 AM CDT SPECIALTY CORE/PROT/END O Comment:Negative Blood BLOOD SPECIMEN / Unknown Venipuncture / Unknown 05/03/2023 1:03 PM CDT 05/03/2023 1:03 PM CDT Oleg Aparicio PA-C LAB - BLOOD ORDERABL ES UM SPECIALTY CORE/PROT/ENDO Specialty Core/Prot/Endo [address] [facility], [address] * Beta 2 Glycoprotein 1 Antibody IgG (05/03/2023 1:03 PM CDT) Beta 2 Glycoprotein 1 Antibody IgG <0.8 <7.0 U/mL 05/04/2023 10:34 AM CDT SPECIALTY CORE/PROT/END O Comment:Negative Blood BLOOD SPECIMEN / Unknown Venipuncture / Unknown 05/03/2023 1:03 PM CDT 05/03/2023 1:03 PM CDT Oleg Aparicio PA-C LAB - BLOOD ORDERABL ES Performing Organization Address City/[facility] Co de Phone Number SPECIALTY CORE/PROT/ENDO Specialty Core/Prot/Endo [address] [facility], [address] [place] [address] * Low Molecular Weight Heparin Anti Xa Level (05/03/2023 1:03 PM CDT) Only the most recent of2 resultswithin the time period is included. Anti Xa Low Molecular Weight 0.63 For Reference Range, See Comment IU/mL 05/03/2023 5:11 PM CDT [facility] Blood BLOOD SPECIMEN / Unknown Venipuncture / Unknown 05/03/2023 1:03 PM CDT 05/03/2023 1:03 PM CDT Narrative [facility] - 05/03/2023 5:11 PM CDT If collected 4-6 hours after administration: Adults: If administered only once daily with a dose of 1.5 mg/k.0-2.0 IU/mL. If administered twice daily with a dose of 1 mg/k.50-1.0 IU/mL. Pediatrics: If administered twice daily: 0.50-1.0 IU/mL. Oleg Aparicio PA-C LAB - BLOOD ORDERABL ES [facility] LABORATORY [facility] [address] [facility], [address] [place] [address] * (ABNORMAL) Lupus Anticoagulant Panel (05/03/2023 1:03 [...] of an antiphospholipid syndrome, recommend anticardiolipin and yiov-5-odtlxzavolh n (IgG and IgM) antibody tests. Recommend repeat testing on a new sample as decreased clotting times can sometimes be seen with poor specimen quality. Causes of a prolonged Thrombin Time include: hypofibrinogenemia , dysfibrinogenemia, elevated fibrin degradation products (e.g. D-dimer), ??anticoagulants (e.g. heparin and direct thrombin inhibitors), and inhibitors. Elizabeth Chao MD, PhD [facility] 4 2:25 PM CDT [facility] SPECIAL COAGULATION Blood BLOOD SPECIMEN / Unknown Venipuncture / Unknown 05/03/2023 1:03 PM CDT 05/03/2023 1:03 PM CDT Oleg Aparicio PA-C LAB - BLOOD ORDERABL ES UM SPECIAL COAGULATION UM Special Coagulation [address] [facility], [address] [place] [phone], [facility] * [facility] Comprehensive Single (04/12/2023 10:26 AM LEAD APPLICATIONS DEVELOPER) Anatomical Region Laterality Modality Ultrasound 04/12/2023 9:24 AM LEAD APPLICATIONS DEVELOPER Impressions 04/12/2023 3:24 PM LEAD APPLICATIONS DEVELOPER IMPRESSION ----- 1. Barnett intrauterine at 19w [...] long and closed. Narrative 04/12/2023 3:24 PM LEAD APPLICATIONS DEVELOPER ?Comprehensive ----- Pat. Name: GABRIELLE [place] ? Study Date: ??04/12/2023 9:24am Pat. NO: ??[id number] ?Referring ??MD: TRISTA MELLO Site: ??[facility] ? Automation Engineer: Edda Ayala RDMS : ??1995 ?Age: ?? [...] Biometry: BPD ?44.0 ?mm ? 19w 2d ?George LUI ?55.2 ?mm ? 18w 2d ?Nicolaides HC ?158.3 ?mm ?18w 5d ?Hadlock Cerebellum tr ?19.5 ? mm ?18w 5d ?Nicolaides AC ?129.5 ?mm ?18w 3d ?21% ?Hadlock Femur ?29.2 ? mm ?19w 0d ?Hadlock Humerus ?27.7 ?mm ? 18w 6d ?Jojo Weight Calculation: EFW ? 255 ? g ? 18% ?Hadlock EFW (lb,oz) ? 0 lb 9 ?oz EFW by ?Hadlock ([id number]) Head / Face / Neck Biometry: Power Generating Plant Operator ? 6.4 ? mm CM ?1.7 ? [...] cava. Inferior vena cava. 3-vessel ? view. 5-bkmtlu-evwiqzf view. Cardiac position. Cardiac size. Cardiac rhythm. [...] [place] Study Date: 04/12/2023 9:24am Pat. NO: [id number] Referring MD: TRISTA MELLO Site: [facility] Automation Engineer: Edda Ayala RDMS : 1995 Age: 27 [...] 0 lb 9 oz EFW by Hadlock ([id number]) Head / Face / Neck Biometry: Power Generating Plant Operator 6.4 mm CM 1.7 mm Nasal bone [...] Superior venacava. Inferior vena cava. 3-vessel view. 7-ixvows-hqesfeo view.Cardiac position. Cardiac size. Cardiac rhythm. Right [...] ----- Thank-you for referring your patient for M consult & ultrasoundassessment. I discussed the findings [...] appears long and closed. Ori Adame MD [facility] US ORDERABL ES * PAP SMEAR (07/16/1998 1:18 PM CDT) Unlabelled R [facility] Biopsy Sent [facility] Source VAG,CERV,E NDOCERV [facility] LMP POST [facility] PARA 3 [facility] 2 [facility] Clinical History DNR [facility] Therapy DNR [facility] Last Pap Diagnosis WITHIN NORMAL LIMITS [facility] PAP Date [id number] [facility] Specimen # DNR [facility] Tissue DNR [facility] Tissue Date DNR [facility] Statement of Adequacy [facility] Comment: SATISFACTORY FOR INTERPRETATION POST MENOPAUSAL PATIENT. ??NO ENDOCERVICAL CELLS SEEN. General Categorization R [facility] Descriptive Diagnosis [facility] Comment: WITHIN NORMAL LIMITS ATROPHIC CELL PATTERN Recommendations DNR [facility] DNR 114,,,,,, [facility] DNR DNR [facility] DNR DNR [facility] DNR DNR [facility] . [facility] Comment: ?PAP SMEARS ARE SUBJECT TO BOTH FALSE NEGATIVE AND FALSE ? POSITIVE RESULTS EVIDENCED BY DATA PUBLISHED IN THE ? MEDICAL LITERATURE. ??YOUR PATIENT'S RESULT SHOULD BE ? INTERPRETED IN THIS CONTEXT, TOGETHER WITH THE PATIENT'S ? HISTORY AND CLINICAL FINDINGS. TESTING LOCATION ? [facility] ? [address] [facility]. [address] ? PHONE NUMBERS FOR CYTOLOGY INQUIRES, INCLUDING SLIDE REQUESTS ? EXT. [id number] ?? EXT. [phone] 07/14/1998 Melony Hernandez MD LABORATORY Performing Organization Address City/State/ZIP Co ms Phone Number [facility] from Last 3 Months or Most Recently Relevant to Health Maintenance Care Teams Customer Support Coordinator Relationship Specialty Start Date End Date No Ref-Primary, Physician PCP - General 03/31/23 Oleg Aparicio, PA-C [address] [facility] [address] [place] [address] Assigned Cancer Care Provider 05/06/23 Ana Oreilly MD [address] [facility] [address] [place] [address] Assigned OBGYN Provider 05/06/23
--- OUTSIDE RECORDS SUMMARY | 2023-06-10 06:53 | XMS_ITS | Encounter Summary ---
Author Name Unknown Organization [facility] Address [address] [facility] [place] [address] Care Team Providers Care Red Leader Name Role Phone No Ref-Primary, Physician Primary Care Provider Oleg Aparicio PA-C Unavailable [phone] Ana Oreilly MD Unavailable [phone] Encounter Details Date Type Department Care Team (Latest Contact Info) Description 05/31/2023 Travel 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 Tobacco Use Types Packs/Day Years [...] on file documented as of this encounter Plan of Treatment Upcoming Encounters Date Type Department Care Team (Late st Contact Info) Description 06/21/2023 9:30 AM CDT Appointment [facility] Maternal Medicine [facility] [address] [facility] [address] [place] [address] Ori Adame MD [address] [place] [phone] 06/21/2023 10:00 AM CDT Office Visit [facility] Maternal Medicine [facility] [address] [facility] [address] [place] [phone] Ori Adame MD [address] [place] [address] 07/04/2023 2:30 PM CDT Office Visit [facility] [address] [facility] [address] [place] [phone] Oleg Aparicio PA-C [address] [facility] [address] [place], [place] [phone] documented as of this encounter Visit Diagnoses Not on filedocumented in this encounter Care Teams Red Leader Relationship Specialty Start Date End Date No Ref-Primary, Physician PCP - General 03/31/23 Oleg Aparicio, RUPAL [facility] [facility] [address] [place] [address] Assigned Cancer Care Provider 05/06/23 Ana Oreilly MD [address] [place] [address] Assigned OBGYN Provider 05/06/23 documented as of this encounter
--- OUTSIDE RECORDS SUMMARY | 2023-06-10 06:54 | XMS_ITS | Encounter Summary ---
Author Name Unknown Organization [facility] Address [address] [place] [address]. [place] [address] Care Team Providers Care [employer]eronautics Commission Director Name Role Phone Unavailable Primary Care Provider Unavailabl e Reason for Referral * Consultation (Routine: Next available opening) - Pending Review Specialty Diagnoses / Procedures Referred By Diana garcia Referred To Contact Diagnoses related condition, antepartum Ofelia Moreno MD [facility] [address] [place] [address] [facility] [address] [facility] [address] [place] [address] Referral ID Status Reason Start Date Expiration Date V isits Requested Visits Authorized [id number] Pending Review 03/09/2023 03/08/2024 1 1 Question Answer Preferred Location: [facility] [place] 09/04/2023 Ultrasound Comprehensive US (>than 18 weeks GA) US PROC NONE MFM Issue Abnormal Ultrasound Findings (enter details in Comments) - acute bilateral promimal PE diagnosed 03/08, other pulminary embolism w/o acut cor abnormal findings of blood chemistry [employer]U GIB[employer]ONS Consultation (unrelated to Ultrasound findings): Yes Inflammatory Bowel Disease Clinic: Joint MFM and GI Consultation: No Chronic Kidney Disease: Joint MFM and Nephrology Consultation No Genetic Counseling Consultation: No fax [facility] Ofelia Moreno [phone] Comments acute bilateral promimal PE diagnosed 03/08, other pulminary embolism w/o acut cor abnormal findings of blood chemistry OR JAVA WEB APPLICATION DEVELOPER Encounter Details Date Type Department Care Team (Late st Contact Info) Description 03/09/2023 Transcribe Orders [facility] Maternal Medicine [place] [address] [facility] [address] [place] [phone] Ofelia Moreno MD [facility] [address] [address] related condition, antepartum (Primary Dx) 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 Tobacco Use Types Packs/Day Years Used Date Smoking Tobacco: Never Assessed Adolescent Education Answer Date Record ed Getting School Help Needed Not on file 11/13 Sex and Gender Information Value Date Recorded Sex Assigned at Not on file Gender Identity Not on file Sexual Orientation Not on file documented as of this encounter Plan of Treatment Upcoming Encounters Date Type Department Care Team (Late Contact Info) Description 06/21/2023 9:30 AM CDT Appointment [facility] Maternal Medicine [place] [address] [facility] [address] [place] [phone] Ori Adame MD [address] [place] [phone] 06/21/2023 10:00 AM CDT Office Visit [facility] Maternal Medicine [place] [address] [phone] Ori Adame MD [address] [place] [address] 07/04/2023 2:30 PM CDT Office Visit [facility] [address] [place] [phone] Oleg Aparicio PA-C [address] [facility] [address] [place], [place] [phone] Scheduled Referrals Name Type Priority Associated Diagnoses Orde r Schedule [facility] Referral - Referral Routine: Next available opening related condition, antepartum Expected: 03/09/2023 (Approximate), Expires: 09/05/2023 documented as of this encounter Visit Diagnoses Diagnosis related condition, antepartum- Primary documented in this encounter
--- OUTSIDE RECORDS SUMMARY | 2023-06-10 06:54 | XMS_ITS | Encounter Summary ---
Author Name Unknown Organization [place] Address [facility] [place] [address] Care Team Providers Care Rigger Helper Name Role Phone No Ref-Primary, Physician Primary Care Provider Oleg Aparicio PA-C Unavailable [phone] Ana Oreilly MD Unavailable [phone] Reason for Referral * Diagnostic Imaging Ultrasound (Routine) - Pending Review Specialty Diagnoses / Procedures Referred By Contac t Referred To Contact Radiology. Diagnoses Pulmonary embolism affecting in second trimester Procedures [facility] Comprehensive Single F/U Ana Oreilly MD [address] [place] [address] Referral ID Status Reason Start Date Expiration Date V isits Requested Visits Authorized [id number] Pending Review 04/12/2023 04/11/2024 1 1 Reason for Visit * Diagnostic Imaging Ultrasound (Routine) - Pending Review Specialty Diagnoses / Procedures Referred By Contac jose Referred To Contact Radiology. Diagnoses Pulmonary embolism affecting in second trimester Procedures [facility] Comprehensive Single F/U Ana Oreilly MD [address] [place] [address] Referral ID Status Reason Start Date Expiration Date V isits Requested Visits Authorized [id number] Pending Review 04/12/2023 04/11/2024 1 1 Encounter Details Date Type Department Care Team (Latest Contact Info) Description 05/10/2023 9:28 AM CDT - 05/10/2023 11:59 PM CDT Hospital Encounter [facility] [place] [address] [facility] [address] [place] [phone] Ori Adame MD [address] [place] [address] Pulmonary embolism affecting in second trimester Discharge Disposition: Home or Self Care Social [...] Info) Description 06/21/2023 9:30 AM CDT Appointment [facility] [place] [address] [facility] [address] [place] [phone] Ori Adame MD [address] [place], [place] [address] 06/21/2023 10:00 AM CDT Office Visit [facility] [place] [address] [facility] [address] [place] [phone] Ori Adame MD [address] [place], [place] [address] 07/04/2023 2:30 PM CDT Office Visit [facility] [address] [place] [address] Oleg Aparicio PA-C [address] [place] [address] documented as of this encounter Procedures Procedure Name Priority Date/Time Associated Diagnosis Comments [facility] US COMPREHENSIVE SINGLE F/U Routine 05/10/2023 10:08 AM CDT Pulmonary embolism affecting in second trimester documented in this encounter Results * M US Comprehensive Single F/U (05/10/2023 10:08 AM CDT) Anatomical Region Laterality Modality Ultrasound 05/10/2023 9:30 AM CDT Impressions 05/10/2023 10:21 AM CDT IMPRESSION ----- 1) Growth parameters and estimated weight were consistent with appropriate for gestational age pattern of growth. 2) anatomy appeared normal for gestational age. 3) Normal transvaginal cervical length with no funneling. Narrative 05/10/2023 10:21 AM CDT ?Comp Follow Up ----- Pat. Name: GABRIELLE CLEVELAND ? Study Date: ??05/10/2023 9:30am Pat. NO: ??[id number] ?Referring ??MD: TRISTA MELLO Site: ??[facility] ? Patient Financial Advocate: Yamel Hill [facility] : ??1995 ?Age: ?? 27 ----- INDICATION ----- Pulmonary embolism in on therapeutic lovenox. History of delivery in prior . Reevaluate growth and suboptimal anatomy METHOD ----- Transabdominal and transvaginal ultrasound approaches were used. (Transvaginal ultrasound examination was required to adequately complete the exam.). View: Sufficient ----- Barnett . Number of fetuses: 1 DATING ----- ? Date ?Details ?Gest. age ?GALA LMP ?11/28/2022 ? 23 w + 2 d ? 09/04/2023 Prior assessment ? 01/26/2023 ? GA: 8 w + 0 d ?22 w + 6 d ? 09/07/2023 U/S ? 05/10/2023 ? based upon AC, BPD, Femur, HC ?22 w + 2 d ? 09/11/2023 Assigned dating ?Dating performed on 04/12/2023, based on the LMP ?23 w + 2 d ? 09/04/2023 GENERAL EVALUATION ----- Cardiac activity present. FHR 145 bpm. movements present. Presentation breech. Placenta Posterior, No Previa, > 2 cm from internal os. Umbilical cord 3 vessel cord. Amniotic fluid Amount of AF: normal. MVP 4.5 cm. BIOMETRY ----- Main Biometry: BPD ?52.8 ?mm ? 22w 0d ?George LUI ?69.7 ?mm ? 21w 5d ?Nicolaides HC ?196.7 ?mm ?21w 6d ?Hadlock Cerebellum tr ?24.3 ? mm ?22w 2d ?Nicolaides AC ?175.5 ?mm ?22w 3d ?18% ?Hadlock Femur ?40.0 ? mm ?22w 6d ?Hadlock Weight Calculation: EFW ? 514 ? g ? 15% ?Hadlock EFW (lb,oz) ? 1 lb 2 ?oz EFW by ?Hadlock ([id number]) Head / Face / Neck Biometry: Information Technology Technician ? 6.2 ? mm CM ?3.8 ? mm Nasal bone ? 7.0 ? mm ANATOMY ----- The following structures appear normal: Head / Neck ? Cranium. Head size. Head shape. Lateral ventricles. Midline falx. Cavum septi pellucidi. Cerebellum. Cisterna magna. Thalami. Face ? Lips. Profile. Nose. Maxilla. Mandible. Heart / Thorax ?4-chamber view. RVOT view. LVOT view. Situs. 4-ebvufg-rptigeq view. ? Diaphragm. Abdomen ? Stomach. Kidneys. Bladder. Spine ?Cervical spine. Thoracic spine. Lumbar spine. Sacral spine. MATERNAL STRUCTURES ----- Cervix ?Suboptimal ? Appearance: Appears Closed ? Approach - Transvaginal: Cervical length 30.9 mm ? Funneling absent ? Cervical cerclage absent Right Ovary ?Not examined Left Ovary ?Not examined RECOMMENDATION ----- We discussed the findings on today's ultrasound with the patient. No additional cervix length assessments are recommended. Given the EFW is at the 15%tile we will reassess growth at MFM in 3 weeks. Return to primary provider for continued care. Thank-you for the opportunity to participate in the care of this patient. If you have questions regarding today's evaluation or if we can be of further service, please contact the [facility]. anomalies may be present but not detected Procedure Note Ori Adame MD - 05/11/2023 Comp Follow Up ----- Pat. Name: GABRIELLE CLEVELAND Study Date: 05/10/2023 9:30am Pat. NO: [id number] Referring MD: TRISTA MELLO Site: [facility] Patient Financial Advocate: Yamel Hill [facility] : 1995 Age: 27 ----- INDICATION ----- Pulmonary embolism in on therapeutic lovenox. History of delivery in prior . Reevaluate growth and suboptimal anatomy METHOD ----- Transabdominal and transvaginal ultrasound approaches were used.(Transvaginal ultrasound examination was required to adequately completethe exam.). View: Sufficient ----- Barnett . Number of fetuses: 1 DATING ----- DateDetailsGest. age GALA LMP w + 2 d 09/04/2023 Prior assessment 01/26/2023 GA: 8 w +0 d22 w + 6 d 09/07/2023 U/S 05/10/2023ased upon AC, BPD, Femur, HC22 w + 2 d 09/11/2023 Assigned dating Dating performed on 04/12/2023, based onthe LMP 23 w +2 d 09/04/2023 GENERAL EVALUATION ----- Cardiac activity present. FHR 145 bpm. movements present. Presentation breech. Placenta Posterior, No Previa, > 2 cm from internal os. Umbilical cord 3 vessel cord. Amniotic fluid Amount of AF: normal. MVP 4.5 cm. BIOMETRY ----- Main Biometry: BPD 52.8 mm22w 0d Hadlock OFD 69.7 mm21w 5d Nicolaides HC 196.7 mm21w 6d Hadlock Cerebellum tr 24.3 mm22w 2d Nicolaides AC 175.5 mm22w 3d 18% Hadlock Femur 40.0 mm22w 6d Hadlock Weight Calculation: EFW 514 g15% Hadlock EFW (lb,oz) 1 lb 2 oz EFW by Hadlock ([id number]) Head / Face / Neck Biometry: Information Technology Technician 6.2 mm CM 3.8 mm Nasal bone 7.0 mm ANATOMY ----- The following structures appear normal: Head / Neck Cranium. Head size. Head shape.Lateral ventricles. Midline falx. Cavum septi pellucidi. Cerebellum.Cisterna magna. Thalami. Face Lips. Profile. Nose. Maxilla.Mandible. Heart / Thorax 4-chamber view. RVOT view. LVOT view.Situs. 3-huhghz-ngwxdjo view. Diaphragm. Abdomen Stomach. Kidneys. Bladder. Spine Cervical spine. Thoracic spine.Lumbar spine. Sacral spine. MATERNAL STRUCTURES ----- Cervix Suboptimal Appearance: Appears Closed Approach - Transvaginal:Cervical length 30.9 mm Funneling absent Cervical cerclage absent Right Ovary Not examined Left Ovary Not examined RECOMMENDATION ----- We discussed the findings on today's ultrasound with the patient. No additional cervix length assessments are recommended. Given the EFW is at the 15%tile we will reassess growth at MFM in 3weeks. Return to primary provider for continued care. Thank-you for the opportunity to participate in the care of this patient.If you have questions regarding today's evaluation or if we can be offurther service, please contact the [facility]. anomalies may be present but not detected IMPRESSION ----- 1) Growth parameters and estimated weight were consistent withappropriate for gestational age pattern of growth. 2) anatomy appeared normal for gestational age. 3) Normal transvaginal cervical length with no funneling. Ana Oreilly MD [facility] US ORDERABLE S documented in this encounter Visit Diagnoses Diagnosis Pulmonary embolism affecting in second trimester documented in this encounter Care Teams Rigger Helper Relationship Specialty Start Date End Date No Ref-Primary, Physician PCP - General 03/31/23 Oleg Aparicio, RUPAL [address] [place], [place] [phone] Assigned Cancer Care Provider 05/06/23 Ana Oreilly MD [address] [address] [place] [address] Assigned OBGYN Provider 05/06/23 documented as of this encounter
--- OUTSIDE RECORDS SUMMARY | 2023-06-10 06:54 | XMS_ITS | Encounter Summary ---
Author Name Unknown Organization [place] Address [address] [facility] [place] [address] Care Team Providers Care Lifter Driver Name Role Phone No Ref-Primary, Physician Primary Care Provider Encounter Details Date Type Department Care Team (Latest Contact Info) Description 04/28/2023 Travel 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 Tobacco Use Types Packs/Day [...] Info) Description 06/21/2023 9:30 AM CDT Appointment [facility] Maternal Medicine [facility] [address] [facility] [address] [place] [phone] Ori Adame MD [address] [facility] [address] [place], [place] [phone] 06/21/2023 10:00 AM CDT Office Visit [facility] Maternal Medicine [facility] [address] [facility] [facility] [address] [place] [phone] Ori Adame MD [address] [place], [place] [address] 07/04/2023 2:30 PM CDT Office Visit [facility] [address] [place] [phone] Oleg Aparicio PA-C [address] [place] [address] documented as of this encounter Visit Diagnoses Not on filedocumented in this encounter Care Teams Lifter Driver Relationship Specialty Start Date End Date No Ref-Primary, Physician PCP - General 03/31/23 documented as of this encounter
--- OUTSIDE RECORDS SUMMARY | 2023-06-10 06:54 | XMS_ITS | Encounter Summary ---
Author Name Unknown Organization [facility] Address [address] [place] [address]. [place] [address] Care Team Providers Care Fax Machine Operator Name Role Phone Unavailable Primary Care Provider Unavailabl e Encounter Details Date Type Department Care Team (Late st Contact Info) Description 03/09/2023 Medical Correspondence [facility] [address] [place] [phone] Scan, Non-Provider 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 Tobacco Use Types Packs/Day Years [...] Info) Description 06/21/2023 9:[address] [facility] Maternal Medicine [facility] [address] [place] [phone] Ori Adame MD [address] [facility] [address] [place], [place] [address] 06/21/2023 10:00 AM CDT Office Visit [facility] Maternal Medicine [facility] [address] [address] [place] [phone] Ori Adame MD [address] [facility] [address] [place], [place] [address] 07/04/2023 2:30 PM CDT Office Visit [facility] [address] [place] [address] [address] [place] [phone] Oleg Aparicio PA-C [address] [place] [address] 105 [place] [address] documented as of this encounter Visit Diagnoses Not on filedocumented in this encounter
--- OUTSIDE RECORDS SUMMARY | 2023-06-10 06:54 | XMS_ITS | Encounter Summary ---
Author Name Unknown Organization [place] Address [facility] [place] [address] Care Team Providers Care Directory Assistance Operator Name Role Phone No Ref-Primary, Physician Primary Care Provider Encounter Details Date Type Department Care Team (Late st Contact Info) Description 05/03/2023 1:00 PM CDT Lab [facility] [address] [place] [address] Pulmonary embolism affecting in second trimester; Family history of blood clots 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 Tobacco Use Types Packs/Day Years [...] Info) Description 06/21/2023 9:30 AM CDT Appointment [facility] [address] [place] [address] Ori Adame MD [address] [address] [place], [place] [address] 06/21/2023 10:00 AM CDT Office Visit [facility] [address] [facility] [address] [place] [address] Ori Adame MD [address] [place], [place] [address] 07/04/2023 2:30 PM CDT Office Visit [facility] [address] [place] [phone] Oleg Aparicio PABrightC [address] [place], [place] [address] documented as of this encounter Procedures Procedure Name Priority Date/Time Associated Diagnosis Comments CARDIOLIPIN MAKENZIE IGG AND IGM Routine 05/03/2023 1:03 PM CDT Pulmonary embolism affecting in second trimester Family history of blood clots BETA 2 GLYCOPROTEIN 1 ANTIBODY IGM Routine [...] second trimester Family history of blood clots documented in this encounter Results * Beta 2 Glycoprotein 1 Antibody IgM (05/03/2023 1:03 PM CDT) Beta 2 Glycoprotein 1 Antibody IgM <2.4 <7.0 U/mL 05/04/2023 10:34 AM CDT SPECIALTY CORE/PROT/END O Comment:Negative Blood BLOOD SPECIMEN / Unknown Venipuncture / Unknown 05/03/2023 1:03 PM CDT 05/03/2023 1:03 PM CDT Oleg Aparicio PA-C LAB - BLOOD ORDERABL ES [facility] CORE/PROT/ENDO Specialty Core/Prot/Endo [address] [facility], [address] * Beta 2 Glycoprotein 1 Antibody IgG (05/03/2023 1:03 PM CDT) Beta 2 Glycoprotein 1 Antibody IgG <0.8 <7.0 U/mL 05/04/2023 10:34 AM CDT [facility] SPECIALTY CORE/PROT/END O Comment:Negative Blood BLOOD SPECIMEN / Unknown Venipuncture / Unknown 05/03/2023 1:03 PM CDT 05/03/2023 1:03 PM CDT Oleg Aparicio PA-C LAB - BLOOD ORDERABL ES Performing Organization Address City/[facility]/ZIP Co de Phone Number SPECIALTY CORE/PROT/ENDO Specialty Core/Prot/Endo [address] [facility], [address] * Cardiolipin Makenzie IgG and IgM (05/03/2023 1:03 PM CDT) Cardiolipin Makenzie IgG Instrument Value <2.0 <10.0 GPL-U/mL 05/04/2023 10:34 AM CDT [facility] SPECIALTY CORE/PROT/END O Cardiolipin Antibody IgG Negative Negative 05/04/2023 10:34 AM CDT [facility] SPECIALTY CORE/PROT/END O Cardiolipin Makenzie IgM Instrument Value <2.0 <10.0 MPL-U/mL 05/04/2023 10:34 AM CDT [facility] SPECIALTY CORE/PROT/END O Cardiolipin Antibody IgM Negative Negative 05/04/2023 10:34 AM CDT [facility] SPECIALTY CORE/PROT/END O Blood BLOOD SPECIMEN / Unknown Venipuncture / Unknown 05/03/2023 1:03 PM CDT 05/03/2023 1:03 PM CDT Oleg Aparicio PA-C LAB - BLOOD ORDERABL ES [facility] SPECIALTY CORE/PROT/ENDO [facility] Specialty Core/Prot/Endo [address] [facility] [address], [address] * (ABNORMAL) Lupus Anticoagulant Panel (05/03/2023 1:03 PM CDT) INR 1.02 0.85 - 1.15 4 2:25 PM CDT [facility] Thrombin Time 19.7(H) 13.0 - 19.0 Seconds 4 2:25 PM CDT [facility] PTT Ratio 1.16 <1.21 4 2:25 PM CDT [facility] DRVVT Screen Ratio 0.66 <1.08 4 2:25 PM CDT [facility] Lupus Result Negative Negative 2:25 PM CDT [facility] Lupus Interpretation INR is normal. APTT ratio is normal. ?? DRVVT Screen ratio is decreased. Thrombin time is prolonged. NEGATIVE TEST; A LUPUS ANTICOAGULANT WAS NOT DETECTED IN THIS SPECIMEN WITHIN THE LIMITS OF THE TESTING REPERTOIRE. If the clinical picture is strongly suggestive of an antiphospholipid syndrome, recommend anticardiolipin and aizj-8-hzeewipqwrz n (IgG and IgM) antibody tests. Recommend repeat testing on a new sample as decreased clotting times can sometimes be seen with poor specimen quality. Causes of a prolonged Thrombin Time include: hypofibrinogenemia , dysfibrinogenemia, elevated fibrin degradation products (e.g. D-dimer), ??anticoagulants (e.g. heparin and direct thrombin inhibitors), and inhibitors. Elizabeth Chao MD, PhD [facility] 2:25 PM CDT [facility] Blood BLOOD SPECIMEN / Unknown Venipuncture / Unknown 05/03/2023 1:03 PM CDT 05/03/2023 1:03 PM CDT Oleg Aparicio PA-C LAB - BLOOD ORDERABL ES [facility] Special Coagulation [address] [facility] [address], [address] [place] [phone], [place] * Low Molecular Weight Heparin Anti Xa Level (05/03/2023 1:03 PM CDT) Anti Xa Low Molecular Weight 0.63 For [...] Aparicio PA-C LAB - BLOOD ORDERABL ES [facility] Core Lab [address] [facility], [address] [place] [phone], [facility] documented in this encounter Visit Diagnoses Diagnosis Pulmonary embolism affecting in second trimester Family history of blood clots Family history of other blood disorders documented in this encounter Care Teams Directory Assistance Operator Relationship Specialty Start Date End Date No Ref-Primary, Physician PCP - General 03/31/23 documented as of this encounter
--- OUTSIDE RECORDS SUMMARY | 2023-06-10 06:54 | XMS_ITS | Encounter Summary ---
Author Name Unknown Organization [facility] Address [address] [place] [address]. [place] [address] Care Team Providers Care Glass Glazier Name Role Phone No Ref-Primary, Physician Primary Care Provider Reason for Referral * Diagnostic Imaging Ultrasound (Routine) - Pending Review Specialty Diagnoses / Procedures Referred By Contac t Referred To Contact Radiology. Diagnoses Pulmonary embolism affecting in second trimester Procedures [facility] US Comprehensive Single F/U Ana Oreilly MD [address] [place] [address] Referral ID Status Reason Start Date Expiration Date V isits Requested Visits Authorized [id number] Pending Review 04/12/2023 04/11/2024 1 1 ER LAP MACHINE TENDER * Consultation (Priority: 1-2 Weeks) - Pending Review Specialty Diagnoses / Procedures Referred By Contac t Referred To Contact Medical Oncology Diagnoses Pulmonary embolism affecting in second trimester nAa Oreilly MD [address] [place] [address] Referral ID Status Reason Start Date Expiration Date V isits Requested Visits Authorized [id number] Pending Review 04/12/2023 04/11/2024 1 1 Question Answer My Clinical Question Is: Pt is and had bilateral PE 03/08 in [place] Pt is on Lovenox 60 mg BID. Pt needs clotting work up and Lovenox mgt If you have additional clinical questions which require a provider discussion, please call [phone]. Ask for the Chemo only medicine physician. Reason for Referral: Bleeding and Clotting Scheduling Instructions: [facility] will call you to coordinate your care as prescribed by the provider. If you don? t hear from a commissary representative within 2 business days, please call Comments Please be aware that coverage of these services is subject to the terms and limitations of your health insurance plan. Call member services at your health plan with any benefit or coverage questions. [facility] will call you to coordinate your care as prescribed by the provider. If you don? t hear from a commissary representative within 2 business days, please call ER LAP MACHINE TENDER Reason for Visit * Reason Comments Ultrasound L2/TV - hx bilateral PE (this ), hx PROM Consult L2- hx bilateral PE (this ), hx PROM * Consultation (Routine: Next available opening) - Pending Review Specialty Diagnoses / Procedures Referred By Contac t Referred To Contact Diagnoses Pulmonary embolism affecting in second trimester History of delivery, [facility] [address] [address] Referral ID Status Reason Start Date Expiration Date V isits Requested Visits Authorized [id number] Pending Review 03/10/2023 03/09/2024 1 1 Encounter Details Date Type Department Care Team (Late st Contact Info) Description 04/12/2023 10:15 AM SILVER LAP MACHINE TENDER Office Visit [facility] [address] [place] [address] Ana Oreilly MD [address] [facility] [address] [place], [place] [id number] Pulmonary embolism affecting in second trimester (Primary Dx); History of delivery, currently 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 Tobacco Use Types Packs/Day Years [...] Pressure - - Pulse - - Temperature - - Respiratory Rate 20 04/12/2023 10:58 AM SILVER LAP MACHINE TENDER Oxygen Saturation 97% 04/12/2023 10:58 AM SILVER LAP MACHINE TENDER room air Inhaled Oxygen Concentration - - Weight 65.9 kg (145 lb 4.8 oz) 04/12/2023 10:58 AM SILVER LAP MACHINE TENDER Height 170.2 cm (5' 7) 04/12/2023 10:58 AM SILVER LAP MACHINE TENDER Body Mass Index 22.76 04/12/2023 10:58 AM SILVER LAP MACHINE TENDER documented in this encounter Progress Notes * Ama Yadav MD - 04/12/2023 10:15 AM CST Images from the original note were not included. Maternal- Medicine Consultation Gabrielle Cleveland : 1995 Rerferral: Gabrielle Cleveland is a 27 year old sent by Dr. Tolentino from [facility] for MFM consultation. HPI Gabrielle Cleveland is a 27 year old at 19w2d by LMP consistent with 8w0d US here for MFM consultation regarding pulmonary embolism in . She is here with her , Warner. On March 08, 2023, she reports that she had shortness of breath in January and went to the doctor without any etiology. She continued to have chest pain and went in to the ED. On arrival she was tachycardic in the 100s-130s with O2 saturations of 98-100% on RA. Lower extremity dopplers were negative for VTE. She underwent CT scan and was diagnosed with extensive bilateral pulmonary emboli. There was evidence of pulmonary artery dilated and she had an elevated troponin which subsequently normalized. She had an echocardiogram that demonstrated normal left ventricular function, no evidence ofright heart strain. She is prescribed 60mg of Lovenox BID, which is going just fine, although the in jection sites are a little sore. Since her diagnosis she reports that she has occasional heart rates in the 90s-100s on her AppleWatch that self resolve. She states sometimes she feels like she needsto take a deep breath. The patient has not had an anti-Xa level and has not followed with hematology. She reports her mother had a blood clot in her brain and the patient had negative Factor V Leidentesting, but no other testing. She also reports a history of PROM at 36 weeks followed by a precipitous vaginal delivery. She has had some RLQ cramping and back pain for the last few days. She has normal bowel and bladder habits. She has no vaginal bleeding. She had a history of a right cul-de-sac cystic lesion on a CT in 2022, but a normal pelvic US with normal ovaries. Care: Primary OB care this has been with Dr. Tolentino from [facility]. OB History Para Term AB Living 2 1 0 1 0 0 SAB IAB Ectopic Multiple Live Births 0 0 0 0 0 # Outcome Date GA Lbr Dax/2nd Weight Sex Delivery Anes PTL Lv 2 Current 1 07/18/21 36w3d 3.26 kg (7 lb 3 oz) Vag-Spont Gynecologic History - Denies any history of abnormal pap smears - Denies prior cervical surgery or procedures - Denies any history of frequent UTIs, vaginal infections, or STIs Past Medical History Past Medical History: Diagnosis Date History of delivery Pulmonary embolism (H) Past Surgical History No past surgical history on file. Medication List Current Outpatient Medications Medication enoxaparin ANTICOAGULANT (LOVENOX) 60 MG/0.6ML syringe hydrocortisone, Perianal, (ANUSOL-HC) 2.5 % cream ondansetron (ZOFRAN ODT) 4 MG ODT tab polyethylene glycol (MIRALAX) 17 GM/Dose powder Ferrous Sulfate (IRON PO) No current facility-administered medications for this visit. Allergies Patient has no allergy information on record. 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 Denies use of alcohol, drugs or smoking. Family History Maternal history of VTE. Denies history of genetic disorders, preeclampsia, thromboembolic disease,bleeding disorders, developmental delay. Review of Systems 10-point ROS negative except as in HPI. Physical Exam Resp 20 Ht 1.702 m (5' 7) Wt 65.9 kg (145 lb 4.8 oz) LMP 11/28/2022 SpO2 97% BMI 22.76 kg/m?? Gen: NAD CV: RRR Resp: CTAB Abd: Gravid, non-tender Ext: No edema Ultrasound See today's ultrasound report under the imaging tab. Other Imaging Echocardiogram 03/24/23: 1. Normal left ventricular size, normal wall thickness, normal global systolic function, calculatedEF of 62 %. 2. Right ventricular cavity size is normal, global systolic RV function is normal. 3. No significant valve disease detected. 4. The inferior vena cava is normal sized, respiratory size variation greater than 50%. CT Chest, 03/08/23: Impression: Demonstration of large filling defect seen throughout the bilateral proximal pulmonary arteries consistent with extensive pulmonary emboli. Mild prominence of the main pulmonary artery without definite evidence of intraventricular septal inversion. Labs Patient reports negative Factor V Leiden testing, otherwise no other thrombophilia testing. Assessment/Counseling Gabrielle Cleveland is a 27 year old at 19w2d by LMP consistent with 8w0d US here for MFM consultation regarding pulmonary embolism in . We reviewed that is associated with specific physiologic/anatomic changes that lead to this increased risk such as hypercoagulability, increased venous stasis, decreased venous outflow, decreased mobility, and compression of the inferior vena cava and pelvic veins by the enlarging uterus.Risk factors for VTE in include a history of VTE, presence of a thrombophilia (present in20-50% of patients who experience VTE in /), , medical factors (obesity, hypertension, autoimmune disease, heart disease, multiple gestation, and hypertensive disorders of ). We would recommend an evaluation of inherited and acquired thrombophilias in the setting of a VTE. In these can all be evaluated for with the exception of Protein S deficiency. In the setting of a recent VTE/on anticoagulation the evaluation is more limited but she can still be evaluated for Factor V Leiden (previously negative per patient( and prothrombin gene mutations as well as anticardiolipin and beta 2 glycoprotein antibodies. The remainder of her evaluation canoccur off anticoagulation and should include Protein C/S, antithrombin deficiency, and lupus anticoagulant. Given that she is already on therapeutic anticoagulation, this would not currently change our management and will be completed off anticoagulation, but this could impact management recommendations for future pregnancies.. We discussed that in patients diagnosed with VTE in the treatment is therapeutic anticoagulation with LMWH. We discussed that LMWH is safe in and does not cross the placenta. We reviewed that in we monitor anti-Xa levels to ensure sufficient dosing of anticoagulation as the 40- 50% increase in maternal blood volume, increased glomerular filtration, and increased protein binding leads to shorter half lives and lower peak plasma concentrations which usually requires higher doses of anticoagulants in . Ultimate duration of therapeutic anticoagulation will depend on her evaluation and formal Hematology recommendations but I would agree with ongoing therapeutic anticoagulation for the duration of and through at least 6 weeks . Recommendations Medications - Anti-Xa levels should be monitored within a week of dose adjustments, and every 4 weeks once steady-state has been achieved - The dosing of therapeutic LMWH is 1mg/kg every 12 hours targeting an anti-Xa level of 0.6-1.0 units/mL which is drawn 4 hours after the last injection - She is due for an anti-Xa level, which will be coordinated at [place], but is also ordered standing in the [facility] system if she is unable to obtain this Laboratory evaluation - Thrombophilia testing once off of anticoagulation (as outlined above) Maternal antepartum management - Anesthesia consultation in 3rd trimester - Hematology consultation placed Ultrasound surveillance - Transvaginal cervical length screening due to history of in 2 weeks with your office - Refer back to our office if TVCL < 25mm - Assessment of suboptimally visualized anatomy and TVCL with our office in 4 weeks - Ultrasound-indicated cerclage should be considered if shortening <25 mm is diagnosed <24 weeks - growth ultrasounds every 4 weeks starting at 28 weeks Timing and mode of delivery - A scheduled induction at 39 weeks in order to time anticoagulation, although discussed her prior delivery and that if this occurs again, she may be at higher risk for hemorrhage or inability to have neuraxial anesthesia - Discontinuation of anticoagulation for patients on therapeutic anticoagulation is recommended 24 hours prior to scheduled induction to allow for the possibility of neuraxial anesthesia, but also inthe event of contractions until evaluation is completed management - Anticoagulation can be restarted 24 hours after neuraxial blockade and at least 4 hours from catheter removal - Clinical assessment of bleeding risk is prudent with resumption of anticoagulation 6 hours after vaginal delivery and 12 hours after delivery in addition to the above parameters surrounding neuraxial blockade - Continue therapeutic, weight-based Lovenox through 6 weeks The patient was seen and evaluated with Dr. Ana Oreilly. Thank you for allowing us to participate in the care of your patient. Please do not hesitate to contact us if you have further questions regarding the management of your patient. Ama Yadav MD Maternal Medicine Fellow [facility] Attending Attestation I have seen and evaluated the patient with Dr. Yadav. I reviewed her chart and agree with the above documented assessment and plan. I spent a total of 60 minutes on the date of this encounter including preparing to see the patient (reviewing medical records/tests), counseling and discussing the plan of care, documenting the visit in the electronic medical record, and communicating with other health day care home provider and/or care coordination.Please see her note for specific details; I have made the necessary edits/additions. The patient was also seen for an ultrasound in the Maternal- Medicine Center at the [facility] today. For a detailed report of the ultrasound examination, please see the ultrasound report which can be found under the imaging tab. Ana Oreilly MD Maternal Medicine Physician ER LAP MACHINE TENDER documented in this encounter Nursing Notes * Elaina Cano RN - 04/12/2023 10:15 AM CST Pt here for L2/consult d/t hx of PE in this . Pt notes intermittent right sided focal sharp pain/tenderness at fold recently. Questions whether this is related to cyst noted on prior ultrasound. Report given to physician/internist prior to scanning. Pt also recalls history of PPROM as spontaneous rupture at home at approximately 36 wks, no signs of labor other than vague feeling of something being off night prior. occurred within 2 hours of rupture. Added TV to ultrasound per protocol. Gabrielle was seen in [facility] today for Comp and MFM consult due to h/o PE in this . Pt has not followed up on any labs and hasn't met with hematology yet. . Dr. Oreilly and Dr. Yadav into see patient. Pt to have XA level at [place] tomorrow and this was communicated to RN at . Pt to have 2 week TV at [place] and then F/U comp/TV in 4 weeks at [facility]. Pt also had heme consult placed for 1-2 weeks. Please see [facility] consult note for recommendations. Patient was discharged ambulatory and stable. ER LAP MACHINE TENDER documented in this encounter Plan of Treatment Upcoming Encounters Date Type Department Care Team (Late st Contact Info) Description 06/21/2023 9:[address] [facility] Medicine [facility] [address] [place] [phone] Ori Adame MD [address] [place], [place] [address] 06/21/2023 10:00 AM CDT Office Visit [facility] Medicine [facility] [address] [place] [phone] Ori Adame MD [address] [place] [address] 07/04/2023 2:30 PM CDT Office Visit [facility] [address] [place] [phone] Oleg Aparicio PA-C [address] [place], [place] [address] Scheduled Orders Name Type Priority Associated Diagnoses Orde r Schedule Low Molecular Weight Heparin Anti Xa Level Lab Routine Pulmonary embolism affecting in second trimester 1 Occurrences starting 04/12/2023 until 04/12/2024 Scheduled Referrals Name Type Priority Associated Diagnoses Orde r Schedule Adult Oncology/Hematology Environmental Web Crawler Referral Referral Priority: 1-2 Weeks Pulmonary embolism affecting in second trimester Expected: 04/12/2023 (Approximate), Expires: 04/12/2024 documented as of this encounter Results * MFM US Comprehensive Single F/U (05/10/2023 10:08 AM [...] ?Comp Follow Up ----- Pat. Name: CRISTOFER AVELPOLLY ? Study Date: ??05/10/2023 9:30am Pat. NO: ??[id number] ?Referring ??MD: TRISTA MELLO Site: ??[facility] ? Grinder Brake Lining: [place] RDMS : ??1995 ?Age: ?? 27 ----- [...] Biometry: BPD ?52.8 ?mm ? 22w 0d ?Hadlock OFD ?69.7 ?mm ? 21w 5d ?Nicolaides HC ?196.7 ?mm ?21w 6d ?Hadlock Cerebellum tr ?24.3 ? mm ?22w 2d ?Nicolaides AC ?175.5 ?mm ?22w 3d ?18% ?Hadlock Femur ?40.0 ? mm ?22w 6d ?Hadlock Weight Calculation: EFW ? 514 ? g ? 15% ?Hadlock EFW (lb,oz) ? 1 lb 2 ?oz EFW by ?Hadlock ([id number]) Head / Face / Neck Biometry: Melter Assistant ? 6.2 ? mm CM ?3.8 ? mm Nasal bone ? 7.0 ? mm ANATOMY ----- The following structures appear normal: Head / Neck ? Cranium. Head size. Head shape. Lateral ventricles. Midline falx. Cavum septi pellucidi. Cerebellum. Cisterna magna. Thalami. Face ? Lips. Profile. Nose. Maxilla. Mandible. Heart / Thorax ?4-chamber view. RVOT view. LVOT view. Situs. [id number] view. ? Diaphragm. Abdomen ? Stomach. Kidneys. [...] [place] Study Date: 05/10/2023 9:30am Pat. NO: [id number] Referring MD: TRISTA MELLO Site: [facility] Grinder Brake Lining: [place] RDMS : 1995 Age: 27 [...] 1 lb 2 oz EFW by Hadlock ([id number]) Head / Face / Neck Biometry: Melter Assistant 6.2 mm CM 3.8 mm Nasal bone 7.0 mm ANATOMY ----- The following structures appear normal: Head / Neck Cranium. Head size. Head shape.Lateral ventricles. Midline falx. Cavum septi pellucidi. Cerebellum.Cisterna magna. Thalami. Face Lips. Profile. Nose. Maxilla.Mandible. Heart / Thorax 4-chamber view. RVOT view. LVOT view.Situs. [id number]-[id number] view. Diaphragm. Abdomen Stomach. Kidneys. Bladder. Spine [...] length with no funneling. Ana Oreilly MD [facility] US ORDERABLE S documented in this encounter Visit Diagnoses Diagnosis Pulmonary embolism affecting in second trimester- Primary History of delivery, currently with history of pre-term labor Pulmonary embolism affecting in second trimester documented in this encounter Care Teams Glass Glazier Relationship Specialty Start Date End Date No Ref-Primary, Physician PCP - General 03/31/23 documented as of this encounter
--- OUTSIDE RECORDS SUMMARY | 2023-06-10 06:54 | XMS_ITS | Encounter Summary ---
Author Name Unknown Organization [facility] Address [address] [place] [address]. [place] [address] Care Team Providers Care Health Support Specialist Name Role Phone No Ref-Primary, Physician Primary Care Provider Reason for Visit * Reason Comments CLOTTING * Consultation (Priority: 1-2 Weeks) - Pending Review Specialty Diagnoses / Procedures Referred By Contac t Referred To Contact Medical Oncology Diagnoses Pulmonary embolism affecting in second trimester Ana Oreilly MD [address] [place] [id number] Referral ID Status Reason Start Date Expiration Date V isits Requested Visits Authorized [id number] Pending Review 04/12/2023 04/11/2024 1 1 Encounter Details Date Type Department Care Team (Late st Contact Info) Description 04/28/2023 1:30 PM FRUIT PICKER MACHINE OPERATOR Office Visit [facility] [address] [place] [phone] Ana Oreilly MD [address] [place] [address] Oleg Aparicio PA-C [address] [place] [address] Pulmonary embolism affecting in second trimester (Primary Dx); Family history of blood clots 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 Tobacco Use Types Packs/Day Years Used Date Smoking Tobacco: Never Assessed Adolescent Education Answer Date Record ed Getting School Help Needed Not on file 09/23 /2023 Estimated Date of Delivery Comme nts Yes 09/04/2023 Based on last me nstrual period of 11/28/2022 Sex and Gender Information Value Date Recorded Sex Assigned at Not on file Gender Identity Not on file Sexual Orientation Not on file documented as of this encounter Last Filed Vital Signs Vital Sign Reading Time Taken Comments Blood Pressure 113/69 04/28/2023 1:25 PM FRUIT PICKER MACHINE OPERATOR Pulse 72 04/28/2023 1:25 PM FRUIT PICKER MACHINE OPERATOR Temperature 36.7 ??C (98 ??F) 04/28/2023 1:25 PM FRUIT PICKER MACHINE OPERATOR Respiratory Rate - - Oxygen Saturation 98% 04/28/2023 1:25 PM FRUIT PICKER MACHINE OPERATOR Inhaled Oxygen Concentration - - Weight 68.9 kg (152 lb) 04/28/2023 1:25 PM FRUIT PICKER MACHINE OPERATOR Height 170.2 cm (5' 7) 04/28/2023 1:25 PM FRUIT PICKER MACHINE OPERATOR Body Mass Index 23.81 04/28/2023 1:25 PM FRUIT PICKER MACHINE OPERATOR documented in this encounter Progress Notes * Oleg Aparicio PA-C - 04/28/2023 1:30 PM CST Images from the original note were not included. [facility] [address] [place] [address] Main: [phone], Patient seen at: [facility] at [address] [place] [address] Outpatient Visit Note: Patient: Gabreille Mcmahon : 1995 DEBORAH: April 28, 2023 Location of this software writer at the time of this clinic visit was conducted: [facility]. Location of the patient at the time of this clinic visit was conducted: [facility]. Reason for visit: Currently . Bilateral pulmonary embolism found on 03/08/2023. HPI: Gabrielle is a 27 year old female who is currently at 21 weeks 4 days gestation, who was found to have a large bilateral proximal pulmonary embolism back on 03/08/2023, referred by Dr. Ana Oreilly and Dr. Ama Yadav (fellow) of Maternal medicine clinic for consultation. Currently she is on enoxaparin at 80 mg SubQ Q 12 hours dosing. From what I can tell, the patient's pulmonary embolism was diagnosed at [facility] and I am unable to find any progress notes, H&P notes or discharge summary of this hospitalization in her records. I am able, however, to see some labs and imaging studies via [facility] Everywhere from [facility]. From what I can gather, Gabrielle was found to be around early Jan 2023. There was a Ob ultrasound done on 01/26/2023 showing a single living intrauterine measuring 8 weeks 0 days with a sonographic due date of 08/28/2023. Gabrielle also recalls that she became rather sick with nausea and vomiting during the first 1-2 months of her at the time. Then later in Jan 2023, Gabrielle started to experience shortness of breath. She did seek medical attention at the time but no etiology was found. I note that she did have a bilateral lower extremity venous ultrasound done back on02/22/2023 with the indications for the ultrasound being bilateral leg pain at the time. This ultrasound showed no sonographic evidence of acute DVT in either lower extremities. Today, Gabrielle actuallyreports that she was in the emergency department getting IV fluid for her hyperemesis when the venous ultrasound was performed. She then went to the [facility] emergency department on 03/08/2023 with chest pain. CTA chest was done at the time showing: large filling defect seen throughout the bilateral proximal pulmonary arteries consistent with extensive pulmonary emboli. Mild prominence of the main pulmonary arterywithout definite evidence of intraventricular septal inversion. She apparently did undergo echocardiogram at the time showing normal left ventricular function with no evidence of right heart strain. According to Gabrielle today, [facility] about the need of intervention. At the time, Gabrielle was told that the risks were too high for her to undergo intervention for her pulmonary embolism. She ultimately stayed in the hospital for 2-3 days and was discharged home on enoxaparin. Reportedly, her mother apparently has a history of blood clot in her brain and Gabrielle was testednegative for factor V Leiden mutation in the past. According to Gabrielle, her mother apparently was found to have blood clot in her brain back when Gabrielle was in her senior year in high school. At the time, her mother was seen at [facility] and from Gabrielle's description, it was consistent with c erebral sinus thrombosis but not entirely clear. Gabrielle report that her mother's blood clot was related to control and her mother is no longer on anticoagulation therapy. Gabrielle is unclear ifother thrombophilia workup was done with her mother. Then on 04/22/2023, this software writer received a call from a nurse at [facility] and was inquiring about her enoxaparin dosing. At the time, this software writer was informed that her Anti-Xa level was subtherapeutic at I belief at 0.3 (again, I am not able to see any [facility]'s or systems notes. At the time, I recommended that they increase her enoxaparin dosing to 80 mg SubQ Q 12 hours from 60 mg SubQ Q 12 hours and check another level early this week. She did go in and have this doneon Tuesday04/26/2023 but she does not have the result back as of yet. She did get this done 4 hours after she gave her enoxaparin dose. Currently she is on enoxaparin at 80 mg SubQ Q 12 hours. Gabrielle continues to experience some chestdiscomfort and occasional shortness of breath as well as heart palpitations but she reports that these symptoms have been much improved as compared to when she was first diagnosed with the pulmonary embolic event. She denies any lower extremity swelling or pain. Gabrielle does endorse pain at the enoxaparin injection sites at times and some bruising at these sites. She denies any other bleeding issues. ROS: Denies any bleeding complications. Specifically, no frequent epistaxis. No issues with oral mucosalbleeding. Denies any hematuria or blood in stools. Denies any shortness of breath. No chest pain. No cough. No fever. Medications: Current Outpatient Medications Medication enoxaparin ANTICOAGULANT (LOVENOX) 60 MG/0.6ML syringe Vit-Fe Fumarate-FA ( VITAMIN PO) No current facility-administered medications for this visit. 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 Family History: As above. Objective: Vitals: BP 113/69 (BP Location: Right arm, Patient Position: Sitting, Cuff Size: Adult Regular) Pulse 72 Temp 98 ??F (36.7 ??C) (Oral) Ht 1.702 m (5' 7) Wt 68.9 kg (152 lb) LMP 11/28/2022 SpO2 98% BMI 23.81 kg/m?? Exam: Some ecchymosis at her enoxaparin injection sites. Imaging: Reviewed and are as described above. Assessment: In summary, Gabrielle is a 27 year old female who is currently at 21 weeks 4 days gestation, who was found to have a large bilateral proximal pulmonary embolism back on 03/08/2023, referred by Dr. Ana Oreilly and Dr. Ama Yadav (fellow) of Maternal medicine clinic for consultation. Gabrielle's was having quite a bit of nausea and vomiting for the first 2 months of her back in Jan 2023. Her pulmonary embolic event found on 03/08/2023 was a provoked event as she was already at the time. It is also conceivable that she could have inherit thrombophilia as her mother, sounded to me, has a history of cerebral sinus thrombosis. Note that during her last back about 1.5 years ago, she also did have some hyperemesis atthe beginning of her but she never developed a venous thromboembolic event with that . Diagnosis: provoked pulmonary embolism on 03/08/2023. Family history of blood clot, description was consistent with cerebral sinus thrombosis with her mother. Currently at around 21 weeks. Plan: I have a long discussion with Gabrielle and her in regard to our plan and recommendation. I also took some time to educate both of them about DVT/PE, provoked vs unprovoked event, and general approach in regard to anticoagulation therapy management and duration, especially while she is . I have also answered all their questions to their satisfaction. I explain to them that her pulmonary embolic event on 03/08/2023 was likely a provoked event as she was at the time and also was rather sick from hyperemesis for which she did need fluid resuscitation at the end of Jan 2023. I explain to them that Gabrielle will continue to be at risk for venous thromboembolism for the remainder of her and for 6 weeks . Thus she will need to stay on anticoagulation therapy during this time at therapeutic dosing regimen. She is on enoxaparin currently and we have adjusted her dose upwards from 60 mg BID to 80 mg BID on 04/22/2023 based on a LMWH Anti-Xa level reported to this software writer from [facility] that was subtherapeutic. I will plan to repeat her LMWH Anti-Xa today as her level done back on Tuesday (04/26/2023) is still notback yet. She gave herself the dose of enoxaparin at around 9am this morning, so this level will bewithin the 4-6 hours post dose time frame. Her anticoagulation management plan for the remainder of her and post are as follow: Antepartum: Continue enoxaparin with adjusted dose according to her LMWH Anti-Xa levels. She is currently on 80 mg SubQ Q 12 hours. I will check her level today as I should be able to get it back at the latest by tomorrow. We will arrange for her to get another LMWH Anti-Xa level checked at the beginning of her 3rd trimester (27 weeks gestation) to be done at a [facility] so that we can get the result back and react to it promptly. Labor and Delivery: I would recommend that she is to undergo scheduled induction of labor. With scheduled induction of labor, she can stop her enoxaparin injections 24 hours prior to her induction date and with this she can receive epidural anesthesia if she desires to do so. If she is to go into labor early, then she might not be able to receive epidural anesthesia if her last enoxaparin injection was within 24 hours. I will plan to have her return to our clinic at around 30-32 weeks gestationto finalize the labor and delivery plan. : I recommend that she is to restart enoxaparin 12-24 hours after her delivery assuming that she has no bleeding complications. Plan to have her continue enoxaparin for 6 weeks . I will plan to see her back at around 4 weeks to consider inherit thrombophilia workup asshe does have a family history of what is consistent with cerebral sinus thrombosis with Gabrielle's mother. I do not generally recommend repeating CTA chest to evaluate for residual pulmonary embolism unlessthe patient continues to have ongoing respiratory symptoms after 3-6 months of anticoagulation therapy or if she should experience any new or worsening symptoms. I will plan to re-evaluate her respiratory symptoms when she returns at around 30-32 weeks gestation at her clinic visit. Gabrielle does have a pulse oximetry device at home and I have instructed her to seek immediate medical attention if her O2 sat shows that it is <90% or if she should have worsening shortness of breath or chest pain. They are given our clinic's contact information and are instructed to call if she should have any further questions or concerns. Oleg Aparicio PA-C, MPAS Physician Financial Advisor Trainee [facility]. The longitudinal plan of care for these conditions below were addressed during this visit. Due to the added complexity in care, I will continue to support Gabrielle Mcmahon in the subsequent management of these conditions and with the ongoing continuity of care of these conditions. Problem List Items Addressed This Visit as of 04/11/2023 provoked pulmonary embolism on 03/08/2023. Family history of blood clot, description was consistent with cerebral sinus thrombosis with her mother. Currently at around 21 weeks. 65 minutes spent by me on the date of the encounter doing chart review, history and exam, documentation and further activities per the note. Time IN: 13:30 Time OUT: 14:15 T PICKER MACHINE OPERATOR documented in this encounter Miscellaneous Notes * Addendum Note - Oleg Aparicio PA-C - 04/28/2023 1:30 PM CSTAddended by: OLEG APARICIO on: 04/28/2023 04:09 PM Modules accepted: Orders T PICKER MACHINE OPERATOR documented in this encounter Plan of Treatment Upcoming Encounters Date Type Department Care Team (Late st Contact Info) Description 06/21/2023 9:30 AM CDT Appointment [facility] [place] [address] [place] [phone] Ori Adame MD [address] [place] [address] [address] [place] [address] 06/21/2023 10:00 AM CDT Office Visit [facility] [place] [address] [place] [phone] Ori Adame MD [address] [place], [place] [address] 07/04/2023 2:30 PM CDT Office Visit [facility] [address] [place] [phone] Oleg Aparicio PA-C [address] [place] [address] Scheduled Orders Name Type Priority Associated Diagnoses Orde r Schedule Low Molecular Weight Heparin Anti Xa Level Lab Routine Pulmonary embolism affecting in second trimester Expected: 06/09/2023 (Approximate), Expires: 04/27/2024 documented as of this encounter Procedures Procedure Name Priority Date/Time Associated Diagnosis Comments LOW MOLECULAR WEIGHT HEPARIN ANTI XA LEVEL Routine 04/28/2023 2:27 PM FRUIT PICKER MACHINE OPERATOR Pulmonary embolism affecting in second trimester documented in this encounter Results * Beta 2 Glycoprotein 1 Antibody IgM (05/03/2023 1:03 PM CDT) Beta 2 Glycoprotein 1 Antibody IgM <2.4 <7.0 U/mL 05/04/2023 10:34 AM CDT [facility] C[facility]/PROT/END O Comment:Negative Blood BLOOD SPECIMEN / Unknown Venipuncture / Unknown 05/03/2023 1:03 PM CDT 05/03/2023 1:03 PM CDT Oleg Aparicio PA-C LAB - BLOOD ORDERABL ES [facility] CORE/PROT/ENDO [facility] Core/Prot/Endo [address], Room [address] * Beta 2 Glycoprotein 1 Antibody IgG (05/03/2023 1:03 PM CDT) Beta 2 Glycoprotein 1 Antibody IgG <0.8 <7.0 U/mL 05/04/2023 10:34 AM CDT [facility] CORE/PROT/END O Comment:Negative Blood BLOOD SPECIMEN / Unknown Venipuncture / Unknown 05/03/2023 1:03 PM CDT 05/03/2023 1:03 PM CDT Oleg Aparicio PA-C LAB - BLOOD ORDERABL ES [facility] SPECIAL[facility] CORE/PROT/ENDO [facility] Specialty Core/Prot/Endo [address] [facility] [address], Room [address] * Cardiolipin Angie IgG and IgM (05/03/2023 1:03 PM CDT) Cardiolipin Angie IgG Instrument Value <2.0 <10.0 GPL-U/mL 05/04/2023 10:34 AM CDT SPECIALTY CORE/PROT/END O Cardiolipin Antibody IgG Negative Negative 05/04/2023 10:34 AM CDT [facility] CORE/PROT/END O Cardiolipin Angie IgM Instrument Value <2.0 <10.0 MPL-U/mL 05/04/2023 10:34 AM CDT [facility] CORE/PROT/END O Cardiolipin Antibody IgM Negative Negative 05/04/2023 10:34 AM CDT SPECIALTY CORE/PROT/END O Blood BLOOD SPECIMEN / Unknown Venipuncture / Unknown 05/03/2023 1:03 PM CDT 05/03/2023 1:03 PM CDT Oleg Aparicio PA-C LAB - BLOOD ORDERABL ES [facility] SPECIALTY CORE/PROT/ENDO [facility] Specialty Core/Prot/Endo [address] [facility] [address], Room [address] * (ABNORMAL) Lupus Anticoagulant Panel (05/03/2023 1:03 PM CDT) INR 1.02 0.85 - 1.15 03/13/202 4 2:25 PM CDT [facility] SPECIAL COAGULATION [...] of an antiphospholipid syndrome, recommend anticardiolipin and mxde-1-jicvzexusde n (IgG and IgM) antibody tests. Recommend [...] [facility] SPECIAL COAGULATION [facility] Special Coagulation [address] [facility] [address], [address] [place] [phone], [facility] * Low Molecular Weight Heparin Anti Xa [...] LAB - BLOOD ORDERABL ES [facility] LABORATORY [facility] Core Lab [address] [facility], [address] [place] [address], [facility] * Low Molecular Weight Heparin Anti Xa Level (04/28/2023 2:27 PM FRUIT PICKER MACHINE OPERATOR) Anti Xa Low Molecular Weight 0.42 For Reference Range, See Comment IU/mL 04/28/2023 2:53 PM FRUIT PICKER MACHINE OPERATOR [facility] LABORATORY Blood STRUCTURE OF RIGHT UPPER LIMB / Unknown Venipuncture / Unknown 04/28/2023 2:27 PM FRUIT PICKER MACHINE OPERATOR 04/28/2023 2:41 PM FRUIT PICKER MACHINE OPERATOR Narrative [facility] LABORATORY - 04/28/2023 2:53 PM FRUIT PICKER MACHINE OPERATOR If collected 4-6 hours after administration: Adults: If administered only once daily with a dose of 1.5 mg/k.0-2.0 IU/mL. If administered twice daily with a dose of 1 mg/k.50-1.0 IU/mL. Pediatrics: If administered twice daily: 0.50-1.0 IU/mL. Oleg Aparicio PA-C LAB - BLOOD ORDERABL ES UR LABORATORY [facility] Lab [address] [facility] [place] [address], [facility] [phone] documented in this encounter Visit Diagnoses Diagnosis Pulmonary embolism affecting in second trimester- Primary Family history of blood clots Family history of other blood disorders documented in this encounter Care Teams Health Support Specialist Relationship Specialty Start Date End Date No Ref-Primary, Physician PCP - General 03/31/23 documented as of this encounter
--- OUTSIDE RECORDS SUMMARY | 2023-06-10 06:54 | XMS_ITS | Encounter Summary ---
Author Name Unknown Organization [facility] Address [address] [place] [address]. [place] [address] Care Team Providers Care Health Systems Analyst Name Role Phone No Ref-Primary, Physician Primary Care Provider Encounter Details Date Type Department Care Team ([facility] st Contact Info) Description 04/28/2023 Telephone [facility] [address] [place] [phone] Oleg Aparicio PA-C [address] [place] [phone] 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 Tobacco Use Types Packs/Day Years [...] on file documented as of this encounter Miscellaneous Notes * Telephone Encounter - Oleg Aparicio PA-C - 04/28/2023 4:10 PM CST Images from the original note were not included. [facility] [address] [place] [address] [address], [place] [address] Main: [phone], Telephone Note: Patient: Gabrielle Mcmahon : 1995 Date of this note written: April 28, 2023 Time: 15:55 This medical writer called the patient on 04/28/2023 at 15:55 in regard to her LMWH Anti- Xa level. I have confirmed with her once again that she has been doing enoxaparin injections at 80 mg SubQ Q 12 hours at9am and 9pm since 04/22/2023 and she reports that she has not missed any doses. I explain to her thather LMWH Anti-Xa level is still not therapeutic despite that we have increased her dose to 80 mg Q 12 hours 6 days ago. I will further increase her dose to 100 mg SubQ Q 12 hours. I have sent a new prescription into herpreferred pharmacy for this. I will plan to recheck her LMWH Anti-Xa level next week on 05/03/2023 or 05/04/2023 along with antiphospholipid antibody panel (lupus anticoagulant, cardiolipin Angie and beta 2 glycoprotein Angie). I will plan to complete her inherit thrombophilia workup when she returns to see me at 4 weeks post . Oleg Aparicio PA-C, MPAS Physician Plastic Press Operator [facility]. IFIED ADAPTED PHYSICAL EDUCATOR documented in this encounter Plan of Treatment Upcoming Encounters Date Type Department Care Team (Late st Contact Info) Description 06/21/2023 9:30 AM CDT Appointment [facility] Medicine [facility] [address] [facility] [address] [facility] [address] [place] [phone] Ori Adame MD [address] [place] [address] 06/21/2023 10:00 AM CDT Office Visit [facility] Medicine [facility] [address] [facility] [address] [place] [phone] Ori Adame MD [address] [place] [address] 07/04/2023 2:30 PM CDT Office Visit [facility] [address] [place] [phone] Oleg Aparicio, PA-C [address] [place] [address] documented as of this encounter Visit Diagnoses Not on filedocumented in this encounter Care Teams Health Systems Analyst Relationship Specialty Start Date End Date No Ref-Primary, Physician PCP - General 03/31/23 documented as of this encounter
--- OUTSIDE RECORDS SUMMARY | 2023-06-10 06:54 | XMS_ITS | Encounter Summary ---
Author Name Unknown Organization [place] Address [facility] [place] [address] Care Team Providers Care Finance Admin Name Role Phone No Ref-Primary, Physician Primary Care Provider Reason for Referral * Diagnostic Imaging Ultrasound (Routine) - Pending Review Specialty Diagnoses / Procedures Referred By Cuauhtemocac t Referred To Contact Radiology. Diagnoses Pulmonary embolism affecting in second trimester History of delivery, currently Procedures [facility] Ori Adame MD [address] [address] Referral ID Status Reason Start Date Expiration Date V isits Requested Visits Authorized [id number] Pending Review 03/10/2023 03/09/2024 1 1 RIZED SQUAD SERGEANT Reason for Visit * Diagnostic Imaging Ultrasound (Routine) - Pending Review Specialty Diagnoses / Procedures Referred By Contac t Referred To Contact Radiology. Diagnoses Pulmonary embolism affecting in second trimester History of delivery, currently Procedures [facility] Ori Jerome MD [address] [place] [address] Referral ID Status Reason Start Date Expiration Date V isits Requested Visits Authorized [id number] Pending Review 03/10/2023 03/09/2024 1 1 Encounter Details Date Type Department Care Team (Latest Contact Info) Description 04/12/2023 9:11 AM MOTORIZED SQUAD SERGEANT - 04/12/2023 11:59 PM MOTORIZED SQUAD SERGEANT Hospital Encounter [facility] Maternal Medicine Center [place] [address] [place] [phone] Ana Oreilly MD [address] [place], [place] [address] Pulmonary embolism affecting in second trimester; History of delivery, currently Discharge Disposition: Home or Self Care Social [...] Sig Dispensed Refills Start Date End Date Vit-Fe Fumarate-FA ( VITAMIN PO) Take 1 tablet by mouth daily enoxaparin ANTICOAGULANT (LOVENOX) 60 MG/0.6ML syringe Inject 80 mg Subcutaneous 2 times daily 04/06/2023 04/28/2023 documented as of this encounter Plan of Treatment Upcoming Encounters Date Type Department Care Team (Late st Contact Info) Description 06/21/2023 9:30 AM CDT Appointment [facility] Maternal Medicine Center [place] [address] [place] [phone] Ori Adame MD [address] [place], [place] [address] 06/21/2023 10:00 AM CDT Office Visit [facility] Maternal Medicine [facility] [address] [place] [phone] Ori Adame MD [address] [place] [address] 07/04/2023 2:30 PM CDT Office Visit [facility] [address] [place] [address] Oleg Aparicio PA-C [address] [place] [address] documented as of this encounter Procedures Procedure Name Priority Date/Time Associated Diagnosis Comments [facility] US COMPREHENSIVE SINGLE Routine 04/12/2023 10:26 AM MOTORIZED SQUAD SERGEANT Pulmonary embolism affecting in second trimester History of delivery, currently documented in this encounter Results * [facility] US Comprehensive Single (04/12/2023 10:26 AM MOTORIZED SQUAD SERGEANT) Anatomical Region Laterality Modality Ultrasound 04/12/2023 9:24 AM MOTORIZED SQUAD SERGEANT Impressions 04/12/2023 3:24 PM MOTORIZED SQUAD SERGEANT IMPRESSION ----- 1. Barnett intrauterine at 19w [...] long and closed. Narrative 04/12/2023 3:24 PM MOTORIZED SQUAD SERGEANT ?Comprehensive ----- Pat. Name: GABRIELLE [place] ? Study Date: ??04/12/2023 9:24am Pat. NO: ??[id number] ?Referring ??MD: TRISTA MELLO Site: ??[facility] ? Grappler: Edda Ayala RDMS : ??1995 ?Age: ?? [...] 0 lb 9 ?oz EFW by ?Hadlock (INE-UV-AE-FL) Head / Face / Neck Biometry: Surveyor Rod Helper ? 6.4 ? mm CM ?1.7 ? [...] cava. Inferior vena cava. 3-vessel ? view. 6-hmpdba-nxldrsw view. Cardiac position. Cardiac size. Cardiac rhythm. [...] [place] Study Date: 04/12/2023 9:24am Pat. NO: [id number] Referring MD: TRISTA MELLO Site: [facility] Grappler: Edda Ayala RDMS : 1995 Age: 27 [...] 0 lb 9 oz EFW by Hadlock (VTW-UI-ET-FL) Head / Face / Neck Biometry: Surveyor Rod Helper 6.4 mm CM 1.7 mm Nasal bone [...] Superior venacava. Inferior vena cava. 3-vessel view. 2-rpxxdr-ixndolw view.Cardiac position. Cardiac size. Cardiac rhythm. Right [...] ----- Thank-you for referring your patient for [facility] consult & ultrasoundassessment. I discussed the [...] appears long and closed. Ori Adame MD [facility] US ORDERABL ES documented in this encounter Visit Diagnoses Diagnosis Pulmonary embolism affecting in second trimester History of delivery, currently with history of pre-term labor documented in this encounter Care Teams Finance Admin Relationship Specialty Start Date End Date No Ref-Primary, Physician PCP - General 03/31/23 documented as of this encounter
--- OUTSIDE RECORDS SUMMARY | 2023-06-10 06:54 | XMS_ITS | Encounter Summary ---
Author Name Unknown Organization [place] Address [address] [facility] [place] [address] Care Team Providers Care General Service Officer Name Role Phone No Ref-Primary, Physician Primary Care Provider Oleg Aparicio PA-C Unavailable [phone] Ana Oreilly MD Unavailable [phone] Encounter Details Date Type Department Care Team (Latest Contact Info) Description 05/10/2023 Travel 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 Tobacco Use Types Packs/Day [...] Info) Description 06/21/2023 9:30 AM CDT Appointment [facility] Maternal Medicine [facility] [address] [facility] [address] [place] [address] Ori Adame MD [address] [place] [id number] 06/21/2023 10:00 AM CDT Office Visit [facility] Maternal Medicine [facility] [address] [facility] [address] [place] [phone] Ori Adame MD [address] [place] [address] 07/04/2023 2:30 PM CDT Office Visit [facility] [address] [facility] [address] [place] [phone] Oleg Aparicio PA-C [address] [facility] [address] [place], [place] [address] documented as of this encounter Visit Diagnoses Not on filedocumented in this encounter Care Teams General Service Officer Relationship Specialty Start Date End Date No Ref-Primary, Physician PCP - General 03/31/23 Oleg Aparicio, RUPAL [facility] [facility] [address] [place] [address] Assigned Cancer Care Provider 05/06/23 Ana Oreilly MD [address] [place] [address] Assigned OBGYN Provider 05/06/23 documented as of this encounter
--- OUTSIDE RECORDS SUMMARY | 2023-06-10 06:54 | XMS_ITS | Encounter Summary ---
Author Name Unknown Organization [place] Address [address] [facility] [place] [address] Care Team Providers Care Handy Worker Name Role Phone No Ref-Primary, Physician Primary Care Provider Encounter Details Date Type Department Care Team (Latest Contact Info) Description 04/12/2023 Travel 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 Tobacco Use Types Packs/Day [...] Info) Description 06/21/2023 9:30 AM CDT Appointment [facility] Maternal Medicine [facility] [address] [facility] [address] [place] [phone] Ori Adame MD [address] [facility] [address] [place], [place] [address] 06/21/2023 10:00 AM CDT Office Visit [facility] Maternal Medicine [facility] [address] [facility] [address] [place] [phone] Ori Adame MD [address] [place], [place] [address] 07/04/2023 2:30 PM CDT Office Visit [facility] [address] [place] [phone] Oleg Aparicio PA-C [address] [place] [address] documented as of this encounter Visit Diagnoses Not on filedocumented in this encounter Care Teams Handy Worker Relationship Specialty Start Date End Date No Ref-Primary, Physician PCP - General 03/31/23 documented as of this encounter
--- OUTSIDE RECORDS SUMMARY | 2023-06-10 06:54 | XMS_ITS | Encounter Summary ---
Author Name Unknown Organization [place] Address [address] [place] [address]. [place] [address] Care Team Providers Care Paint Roller Cover Machine Setter Name Role Phone Unavailable Primary Care Provider Unavailabl e Reason for Referral * Consultation (Routine: Next available opening) - Pending Review Specialty Diagnoses / Procedures Referred By Contac t Referred To Contact Diagnoses Pulmonary embolism affecting in second trimester History of delivery, currently Ori Adame MD [address] [address] Referral ID Status Reason Start Date Expiration Date V isits Requested Visits Authorized [id number] Pending Review 03/10/2023 03/09/2024 1 1 Question Answer MFM Consult Yes Comments PAC STANT RESEARCH SCIENTIST * Diagnostic Imaging Ultrasound (Routine) - Pending Review Specialty Diagnoses / Procedures Referred By Contac t Referred To Contact Radiology. Diagnoses Pulmonary embolism affecting in second trimester History of delivery, currently Procedures [facility] US Comprehensive Single Ori Adame MD [address] [facility] [address] [place] [address] Referral ID Status Reason Start Date Expiration Date V isits Requested Visits Authorized [id number] Pending Review 03/10/2023 03/09/2024 1 1 STANT RESEARCH SCIENTIST Encounter Details Date Type Department Care Team (Late st Contact Info) Description 03/10/2023 [facility] Maternal Medicine Center [place] [address] [place] [phone] Nyla Garcia RN Pulmonary embolism affecting in second trimester (Primary [...] Upcoming Encounters Date Type Department Care Team ([facility] st Contact Info) Description 06/21/2023 9:30 AM CDT Appointment [facility] Maternal Medicine [facility] [address] [facility] [address] [place] [address] Ori Adame MD [address] [address] 06/21/2023 10:00 AM CDT Office Visit [facility] Maternal Medicine [facility] [address] [facility] [address] [place] [address] Ori Adame MD [address] [facility] [address] [address] 07/04/2023 2:30 PM CDT Office Visit [facility] [address] [facility] [address] [place] [phone] Oleg Aparicio PA-C [address] [place] [address] [address] [place], [place] [address] Scheduled Referrals Name Type Priority Associated Diagnoses Orde r Schedule [facility] Office Visit Referral Routine: Next available opening Pulmonary embolism affecting in second trimester History of delivery, currently Expected: 03/10/2023 (Approximate), Expires: 03/10/2024 documented as of this encounter Results * [facility] US Comprehensive Single (04/12/2023 10:26 AM ASSISTANT RESEARCH SCIENTIST) Anatomical Region Laterality Modality Ultrasound 04/12/2023 9:24 AM ASSISTANT RESEARCH SCIENTIST Impressions 04/12/2023 3:24 PM ASSISTANT RESEARCH SCIENTIST IMPRESSION ----- 1. Barnett intrauterine at 19w [...] long and closed. Narrative 04/12/2023 3:24 PM ASSISTANT RESEARCH SCIENTIST ?Comprehensive ----- Pat. Name: GABRIELLE C[place] ? Study Date: ??04/12/2023 9:24am Pat. NO: ??[id number] ?Referring ??: TRISTA MELLO Site: ??[facility] ? Radio Reporter: Edda Ayala RDMS : ??1995 ?Age: ?? [...] 0 lb 9 ?oz EFW by ?Hadlock (PXS-CV-XW-FL) Head / Face / Neck Biometry: Contractor Buyer ? 6.4 ? mm CM ?1.7 ? [...] cava. Inferior vena cava. 3-vessel ? view. 5-hgkdhf-pwltmwf view. Cardiac position. Cardiac size. Cardiac rhythm. [...] MD - 04/12/2023 Comprehensive ----- Pat. Name: CRISTOFER AVELTAYLERDARRIN Study Date: 04/12/2023 9:24am Pat. NO: [id number] Referring MD: TRISTA MELLO Site: [facility] Radio Reporter: Edda Ayala RDMS : 1995 Age: 27 [...] 0 lb 9 oz EFW by Hadlock (EXW-OR-ER-FL) Head / Face / Neck Biometry: Contractor Buyer 6.4 mm CM 1.7 mm Nasal bone [...] Superior venacava. Inferior vena cava. 3-vessel view. 8-yefpqx-njsmzsx view.Cardiac position. Cardiac size. Cardiac rhythm. Right [...] appears long and closed. Ori Adame MD [facility] US ORDERABL ES documented in this encounter Visit Diagnoses Diagnosis Pulmonary embolism affecting in second trimester- Primary History of delivery, currently with history of pre-term labor Pulmonary embolism affecting in second trimester History of delivery, currently with history of pre-term labor documented in this encounter
--- OUTSIDE RECORDS SUMMARY | 2023-06-10 06:54 | XMS_ITS | Encounter Summary ---
Author Name Unknown Organization [place] Address [address] [facility] [address] Care Team Providers Care Tassel Snipper Name Role Phone Unavailable Primary Care Provider Unavailabl e Reason for Visit * Reason Comments Ultrasound L2- Hx bilateral PE this Consult Hx bilateral PE this Encounter Details Date Type Department Care Team (Late Contact Info) Description 03/24/[address] [facility] Maternal Medicine Center [place] [address] [place], [place] [phone] Alma Soriano, RN Ultrasound (L2- Hx bilateral PE this ); Consult (Hx bilateral PE this ) 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 Tobacco Use Types Packs/Day Years [...] Description 06/21/2023 9:[address] [facility] Maternal Medicine [facility] [address] [place] [address] Ori Adame MD [address] [place] [address] 06/21/2023 10:00 AM CDT Office [facility] Maternal [facility] [address] [place] [phone] Ori Adame MD [address] [facility] [address] [place] [address] 07/04/2023 2:30 PM CDT Office Visit [facility] [address] [place] [address] 105 [place] [phone] Oleg Aparicio PA-C [address] [place] [address] [address] [place], [place] [address] documented as of this encounter Visit Diagnoses Not on filedocumented in this encounter
--- OUTSIDE RECORDS SUMMARY | 2023-06-10 06:54 | XMS_ITS | Referral Summary ---
Author Name Unknown Organization [facility] Address [address] [place] [address] Care Team Providers Care Solution Analyst Name Role Phone Elsewhere, Pcp Primary Care Provider Unavailabl e Source Comments Patient records contain information from all sites at [facility]. For routine questions regarding patient records, call [phone] during business hours, M-F 8:00 AM - 5:00 PM Central Time. Record requests for emergency care only can be directed to [phone] at any time.[facility] Allergies No known active allergies Medications Medication Sig Dispensed Refills Start Date End Date Status uibkdbg-It-ftnj-FA (VINATE ONE) 60 mg iron-1 mg per tablet Take 1 tablet by mouth daily. Active TENS unit and electrodes (Cefaly) combo pack 1 Units daily as needed (headache). 1 each 02/24/2022 Active Active Problems Problem Noted Date [...] How often do you attend chur or anabaptism services? More than 4 times per year 02/21/2022 Do you belong to any clubs o r organizations such as adventism groups, unions, fraternal or athletic groups, or [...] and heating? Not hard at all 02/21/2022 [facility] - Occupational Stress [...] place to sleep or slept in a fci (including now)? No 02/21/2022 Nutrition Answer Date [...] Sex Assigned at Female 02/21/2022 11:00 AM BELT SANDER Gender Identity Female 02/21/2022 11:00 AM BELT SANDER Sexual Orientation Straight 02/21/2022 11 :00 AM BELT SANDER Last Filed Vital Signs Vital Sign Reading Time Taken Comments Blood Pressure - - Pulse - - Temperature 36.6 ??C (97.9 ??F) 02/24/2022 12:[address] Respiratory Rate - - Oxygen Saturation - - Inhaled Oxygen Concentration - - Weight 72.4 kg (159 lb 9.8 oz) 02/24/2022 12:38 PM BELT SANDER Height 169.7 cm (5' 6.81) 02/24/2022 12:[address] Body Mass Index 25.14 02/24/2022 12:38 PM BELT SANDER Plan of Treatment Not on file Care Teams Solution Analyst Relationship Specialty Start Date End Date Elsewhere, Pcp PCP - General Internal Medicine 02/24/22
--- OUTSIDE RECORDS SUMMARY | 2023-06-10 06:54 | XMS_ITS | Encounter Summary ---
Author Name Unknown Organization [place] Address [address] [facility] [place] [address] Care Team Providers Care Nursing Service Director Name Role Phone No Ref-Primary, Physician Primary Care Provider Encounter Details Date Type Department Care Team (Latest Contact Info) Description 04/27/2023 Travel 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 Tobacco Use Types Packs/Day [...] Info) Description 06/21/2023 9:30 AM CDT Appointment [facility] Maternal Medicine [facility] [address] [facility] [address] [place] [phone] Ori Adame MD [address] [facility] [address] [place], [place] [address] 06/21/2023 10:00 AM CDT Office Visit [facility] Maternal Medicine [facility] [address] [facility] [address] [place] [phone] Ori Adame MD [address] [place], [place] [address] 07/04/2023 2:30 PM CDT Office Visit [facility] [address] [place] [phone] Oleg Aparicio PA-C [address] [place] [address] documented as of this encounter Visit Diagnoses Not on filedocumented in this encounter Care Teams Nursing Service Director Relationship Specialty Start Date End Date No Ref-Primary, Physician PCP - General 03/31/23 documented as of this encounter
--- OUTSIDE RECORDS SUMMARY | 2023-06-10 06:54 | XMS_ITS | Encounter Summary ---
Author Name Unknown Organization [place] Address [address] [facility] [place] [address] Care Team Providers Care Account Maintenance Representative Name Role Phone No Ref-Primary, Physician Primary Care Provider Oleg Aparicio PA-C Unavailable [phone] Ana Oreilly MD Unavailable [phone] Reason for Referral * Diagnostic Imaging Ultrasound (Routine) - Pending Review Specialty Diagnoses / Procedures Referred By Diana garcia Referred To Contact Radiology. Diagnoses related condition, antepartum Procedures [facility] US Comprehensive Single F/U Ori Adame MD [address] [place] [address] Referral ID Status Reason Start Date Expiration Date V isits Requested Visits Authorized [id number] Pending Review 05/10/2023 05/09/2024 1 1 Reason for Visit * Reason Comments Ultrasound RL2/TV- Subopt anato my, hx PTD Encounter Details Date Type Department Care Team (Late st Contact Info) Description 05/10/2023 10:00 AM CDT Office Visit [facility] Maternal Medicine Center [place] [address] [facility] [address] [place] [address] Ori Adame MD [address] [place] [address] Encounter for follow-up ultrasound of anatomy (Primary Dx); History of delivery, currently ; Encounter for ultrasound to assess growth 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 Tobacco Use Types Packs/Day Years [...] on file documented as of this encounter Progress Notes * Ori Adame MD - 05/10/2023 10:00 AM CDT Please see Imaging tab under Chart Review for details of today's US at the [facility]. Ori Adame MD Maternal- Medicine documented in this encounter Nursing Notes * Alma Soriano RN - 05/10/2023 10:00 AM CDT Patient reports positive movement, denies pain, denies contractions/pre- term labor, leaking of fluid, or bleeding. Patient denies headache, visual changes, nausea/vomiting, epigastric pain related to preeclampsia. Education provided to patient on RL2/TV. SBAR given to [facility] MD, see their note in Epic. Alma Soriano RN documented in this encounter Plan of Treatment Upcoming Encounters Date Type Department Care Team (Late st Contact Info) Description 06/21/2023 9:30 AM CDT Appointment [facility] [address] [place] [address] Ori Adame MD [address] [facility] [address] [place], [place] [address] 06/21/2023 10:00 AM CDT Office Visit [facility] [address] [place] [address] Ori Adame MD [address] [place] [address] 07/04/2023 2:30 PM CDT Office Visit [facility] [address] [place] [address] Oleg Aparicio PA-C [address] [place], [place] [address] documented as of this encounter Results * [facility] US Comprehensive Single F/U (05/31/2023 11:40 AM [...] ? Study Date: ??05/31/2023 10:49am Pat. NO: ??[id number] ?Referring ??MD: TRISTA MELLO Site: ??[facility] ? Showroom Sales Consultant: Chanda Lazo RDMS : ??1995 ?Age: ?? [...] lb 13 ? oz EFW by ?Hadlock (VYC-EI-VN-FL) Head / Face / Neck Biometry: Cost Estimating Manager ? 5.7 ? mm CM ?7.7 ? mm ANATOMY ----- The following structures appear normal: Head / Neck ? Cranium. Head size. Head shape. Lateral ventricles. Midline falx. Cavum septi pellucidi. Cerebellum. Cisterna magna. Thalami. Heart / Thorax ?4-chamber view. RVOT view. LVOT view. 4-dgtsxb-rdmpycb view. ? Diaphragm. Abdomen ? Stomach. Kidneys. [...] [place] Study Date: 05/31/2023 10:49am Pat. NO: [id number] Referring MD: TRISTA MELLO Site: [facility] Showroom Sales Consultant: Chanda Lazo RDMS : 1995 Age: 28 [...] 1 lb 13 oz EFW by Hadlock (NBV-ZB-UC-FL) Head / Face / Neck Biometry: Cost Estimating Manager 5.7 mm CM 7.7 mm ANATOMY ----- The following structures appear normal: Head / Neck Cranium. Head size. Head shape.Lateral ventricles. Midline falx. Cavum septi pellucidi. Cerebellum.Cisterna magna. Thalami. Heart / Thorax 4-chamber view. RVOT view. LVOT view.2-hbbvgd-niwwxzl view. Diaphragm. Abdomen Stomach. Kidneys. Bladder. Spine [...] fluid volume appeared normal. Ori Adame MD [facility] US ORDERABL ES documented in this encounter Visit Diagnoses Diagnosis Encounter for follow-up ultrasound of anatomy- Primary History of delivery, currently with history of pre-term labor Encounter for ultrasound to assess growth Encounter for ultrasound to assess growth documented in this encounter Care Teams Account Maintenance Representative Relationship Specialty Start Date End Date No Ref-Primary, Physician PCP - General 03/31/23 Oleg Aparicio, JULIAC [address] [place] [address] Assigned Cancer Care Provider 05/06/23 Ana Oreilly MD [address] [address] [place] [address] Assigned OBGYN Provider 05/06/23 documented as of this encounter
--- OUTSIDE RECORDS SUMMARY | 2023-06-10 06:54 | XMS_ITS | Clinical Summary ---
Author Name Unknown Organization [employer] [facility] Address [place], [place] [address] Care Team Providers Care Clinical Nursing Director Name Role Phone Marybeth Andrew MD Primary Care Provider + Allergies No known active allergies Medications No known medications 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 Tobacco Use Types Packs/Day Years [...] Health Maintenance Due Date Last Done Comments Tdap 2008 Depression screening for age 12+ 2009 HIV for age 15-65 2012 HPV series for age 9-26 (1 - 3-dose series) 2012 BMI (ht and wt on same day) for age 18+ 05/13/2015 Hepatitis C screening for ag e 18-79 05/13/2015 Tetanus booster 2017 COVID-19 vaccine series ( season) 2022 Influenza for age 9-49 10/23/2023 Pap test for age 21-65 12/12/2023 12/11/2020 Pneumococcal series for age 6-64 Aged Out No longer eligible based on patient's age to complete this topic Procedures Procedure Name Priority Date/Time Associated Diagnosis Comments ROBOT OPERATOR THIN PREP PAP SCREEN IMAGED Routine 12/11/2020 2:40 PM CDT from Last 3 Months or Most Recently Relevant to Health Maintenance Results * ROBOT OPERATOR THIN PREP PAP SCREEN IMAGED (12/11/2020 2:40 PM CDT) Pathologist [facility] Case Report Gynecologic Cytology Report ? Case: [id number] ? Authorizing Provider: ??Elizabeth Philip ?Collected: ? 12/11/2020 1440 ? [place], ? Ordering Location: ? [facility] ?Received: ?12/15/2020 0858 ? First Screen: ?Baccam, Minie ? Specimen: ?ROBOT OPERATOR ThinPrep Vial Screening, Cervical/Vaginal ? 12/26/2020 2:03 PM CDT [facility] INTERPRETATION/ RESULT NEGATIVE FOR INTRAEPITHELIAL LESION OR MALIGNANCY (NIL) (none) 12/26/2020 2:[address] [facility] IMEN ADEQUACY Satisfactory for evaluation No endocervical component seen 12/26/2020 2:[address] [facility] HPV REQUEST HPV if ASCUS 12/26/2020 2:[address] [facility] Date of LMP 11/04/2020 12/26/2020 2:03 PM CDT [facility] Menstrual Status 12/26/2020 2:[address] [facility] Additional Information 12/26/2020 2:03 PM CDT [facility] Comment: Interpreted at [facility] - [address], [place] [address] Automated Review Successful 12/26/2020 2:03 PM CDT [facility] Comment:Specimen processed s uccessfully by automated audio visual aids director device, ThinPrep Imaging System, [employer] Note The pap test is a screening technique, not a diagnostic procedure. It is used primarily to screen for squamous cancers and precursor lesions. Published studies have shown that it is subject to both false negative and false positive results. The pap test should not be used as the sole means to diagnose or exclude pre-malignant and malignant lesions. 12/26/2020 2:[address] [facility] Other (Cervical/Vagina l) 12/11/2020 2:40 PM CDT 12/15/2020 8:58 AM CDT Elizabeth Philip MD PATHOLOGY/ CYTOLOGY [facility] [address] [place] [address] [address] [place] [address], from Last 3 Months or Most Recently Relevant to Health Maintenance Care Teams Clinical Nursing Director Relationship Specialty Start Date End Date Marybeth Andrew MD [address] [place] [address] PCP - General Family Practice 08/20/22
--- OUTSIDE RECORDS SUMMARY | 2023-06-10 06:54 | XMS_ITS | Encounter Summary ---
Author Name Unknown Organization [facility] Address [address] [facility] [place] [address] Care Team Providers Care Service Engineer Name Role Phone No Ref-Primary, Physician Primary Care Provider Oleg Aparicio PA-C Unavailable [phone] Ana Oreilly MD Unavailable [phone] Encounter Details Date Type Department Care Team (Late st Contact Info) Description 04/28/2023 MyC Medical Advice [facility] [address] [place] [address] Carmen Pollack, MAC 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 Tobacco Use Types Packs/Day Years [...] Info) Description 06/21/2023 9:30 AM CDT Appointment [facility] [address] [facility] [address] [place] [address] Ori Adame MD [address] [place], [place] [phone] 06/21/2023 10:00 AM CDT Office Visit [facility] [place] [address] [place] [phone] Ori Adame MD [address] [place], [place] [phone] 07/04/2023 2:30 PM CDT Office Visit [facility] [address] [place] [phone] Oleg Aparicio PAB[facility] [address] [place], [place] [phone] documented as of this encounter Visit Diagnoses Not on filedocumented in this encounter Care Teams Service Engineer Relationship Specialty Start Date End Date No Ref-Primary, Physician PCP - General 03/31/23 Oleg Aparicio, PABrightC [address] [place], [place] [phone] Assigned Cancer Care Provider 05/06/23 Ana Oreilly MD [address] [place] [address] Assigned OBGYN Provider 05/06/23 documented as of this encounter
--- OUTSIDE RECORDS SUMMARY | 2023-06-10 06:54 | XMS_ITS ---
Author Name Unknown Organization [facility] Address [address] [place] [address] Care Team Providers Care Gastroenterology Nurse Practitioner Name Role Phone Unavailable Unavailable Unavailable Surgery Details Not on file Complications Check Surgery Details section. Procedure Estimated Blood Loss Check Surgery Details section. Procedure Findings Check Surgery Details section. Procedure Specimens Taken Check Surgery Details section.
--- OUTSIDE RECORDS SUMMARY | 2023-06-10 06:54 | XMS_ITS | Clinical Summary ---
Author Name Unknown Organization [facility] Address [address] [place] [address] Care Team Providers Care Reclamation Kettle Tender Name Role Phone Elsewhere, Pcp Primary Care Provider Unavailabl e Source Comments Patient records contain information from all sites at [facility]. For routine questions regarding patient records, call [phone] during business hours, M-F 8:00 AM - 5:00 PM Central Time. Record requests for emergency care only can be directed to [phone] at any time.[facility] Allergies No known active allergies Medications Medication Sig Dispensed Refills Start Date End Date Status [id number] (VINATE ONE) 60 mg iron-1 mg per [...] week 02/21/2022 How often do you attend [facility] or [facility] services? More than 4 times per year 02/21/2022 Do you belong to any clubs o r organizations such as yazdanism groups, unions, fraternal or athletic groups, or [...] and heating? Not hard at all 02/21/2022 [facility] Occupat ional Health - Occupational Stress [...] place to sleep or slept in a fpc (including now)? No 02/21/2022 Nutrition Answer Date [...] Sex Assigned at Female 02/21/2022 11:00 AM SLINGER SEQUINS Gender Identity Female 02/21/2022 11:00 AM SLINGER SEQUINS Sexual Orientation Straight 02/21/2022 11 :00 AM SLINGER SEQUINS Last Filed Vital Signs Vital Sign Reading Time Taken Comments Blood Pressure - - Pulse - - Temperature 36.6 ??C (97.9 ??F) 02/24/2022 12:[address] Respiratory Rate - - Oxygen Saturation - - Inhaled Oxygen Concentration - - Weight 72.4 kg (159 lb 9.8 oz) 02/24/2022 12:38 PM SLINGER SEQUINS Height 169.7 cm (5' 6.81) 02/24/2022 12:[address] Body Mass Index 25.14 02/24/2022 12:38 PM SLINGER SEQUINS Plan of Treatment Health Maintenance Due Date Last Done Comments Cervical Cancer Screening 1997 HIV Screening 1997 Hepatitis C Screening 1997 HPV Vaccines (1 - 3-dose series) 2012 DTaP,Tdap,and Td Vaccines (1 - Tdap) 2016 Hepatitis B Vaccines (1 of 3 - 19+ 3-dose series) 2016 COVID-19 Vaccine (1 - 2022-2 4 season) 2022 Influenza Vaccine (#1) 2022 Depression Screening (Annual PHQ-2) 02/21/2023 Pneumococcal vaccine (0-64 years) Aged Out No longer eligible based on patient's age to complete this topic Care Teams Reclamation Kettle Tender Relationship Specialty Start Date End Date Elsewhere, Pcp PCP - General Internal Medicine 02/24/22
== END 2023-06-08 08:33 | disposition home or self-care (01) ==
LOC: NFLDREF 06-10 06:52
PROVIDERS: PCP Family Medicine; Referring Provider Family Medicine; Visit Provider Obstetrics & Gynecology
DX: Z34.93 Encounter for supervision of normal pregnancy, unspecified, third trimester (principal)
CPT/HCPCS: 86592

== ENCOUNTER 2023-06-23 10:11 | Outpatient (CLI) | payer BC, SELFPAY ==
--- OUTSIDE RECORDS SUMMARY | 2023-06-23 10:13 | XMS_ITS | Clinical Summary ---
Author Name Unknown Organization [place] Address [address] [facility] [place] [address] Care Team Providers Care Clinical Education Consultant Name Role Phone No Ref-Primary, Physician Primary Care Provider Oleg Aparicio PA-C Unavailable [phone] Ana Oreilly MD Unavailable [phone] Allergies No known active allergies Medications [...] Encounters Date Type Department Care Team Description 06/22/2023 2:00 PM CDT Lab [facility] [address] [place] [address] Pulmonary embolism affecting in second trimester 06/22/2023 MyC Medical Advice [facility] [address] [place] [address] Oleg Aparicio PA-C 06/21/2023 10:00 AM CDT Office Visit [facility] [place] [address] [place] [address] Ori Adame MD Encounter for ultrasound to check growth (Primary Dx) 06/21/2023 9:30 AM CDT - 06/21/2023 11:59 PM CDT Hospital Encounter [facility] [place] [address] [place] [address] Ori Adame MD Encounter for ultrasound to check growth Discharge Disposition: Home or Self Care 06/21/2023 Travel 05/31/2023 11:30 AM CDT Office Visit [place] [address] [place] [address] Ori Adame MD Encounter for ultrasound to check growth (Primary Dx) 05/31/2023 10:45 AM CDT - 05/31/2023 11:59 PM CDT Hospital Encounter [facility] [place] [address] [place] [address] Ori Adame MD Encounter for ultrasound to assess growth Discharge Disposition: Home or Self Care 05/31/2023 Travel 05/10/2023 10:00 AM CDT Office Visit [facility] [address] [place] [address] Ori Adame MD Encounter for follow-up ultrasound of anatomy (Primary Dx); History of delivery, currently ; Encounter for ultrasound to assess growth 05/10/2023 9:28 AM CDT - 05/10/2023 11:59 PM CDT Hospital Encounter [facility] [place] [address] [place] [address] Ori Adame MD Pulmonary embolism affecting in second trimester Discharge Disposition: Home or Self Care 05/10/2023 Travel 05/03/2023 1:00 PM CDT Lab [facility] [address] [place] [address] Pulmonary embolism affecting in second trimester; Family history of blood clots 04/28/2023 1:30 PM BOLT LOADER Office Visit [facility] [address] [place] [address] Ana Oreilly MD Chan, Ricky Y, PA-C Pulmonary embolism affecting in second trimester (Primary Dx); Family history of blood clots 04/28/2023 MyC Medical Advice [facility] [address] [place] [address] Carmen Pollack RN 04/28/2023 Telephone [facility] [address] [place] [address] Oleg Aparicio PA-C 04/28/2023 Travel 04/27/2023 Travel 04/12/2023 10:15 AM BOLT LOADER Office Visit [facility] [place] [address] [place] [address] Ana Oreilly MD Pulmonary embolism affecting in second trimester (Primary Dx); History of delivery, currently 04/12/2023 9:11 AM BOLT LOADER - 04/12/2023 11:59 PM BOLT LOADER Hospital Encounter [facility] [place] [address] [place] [address] Ana Oreilly MD Pulmonary embolism affecting in second trimester; History of delivery, currently Discharge Disposition: Home or Self Care 04/12/2023 Travel from Last 3 Months Immunizations Name Administration Dates Next Due Influenza Vaccine >6 months,josep, PF 01/25/2022 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 Tobacco Use Types [...] 36.7 ??C (98 ??F) 04/28/2023 1:25 PM BOLT LOADER Respiratory Rate 20 04/12/2023 10:58 AM BOLT LOADER Oxygen Saturation 99% 05/31/2023 11:07 AM CDT Inhaled Oxygen Concentration - - Weight 68.9 kg (152 lb) 04/28/2023 1:25 PM BOLT LOADER Height 170.2 cm (5' 7) 04/28/2023 1:25 PM BOLT LOADER Body Mass Index 23.81 04/28/2023 1:25 PM BOLT LOADER Plan of Treatment Upcoming Encounters Date Type Department Care Team (Late st Contact Info) Description 07/04/2023 2:30 PM CDT Office Visit [facility] [address] [place] [phone] Oleg Aparicio PA-C [address] [place], [place] [address] Health Maintenance Due Date Last Done Comments ADVANCE CARE PLANNING 1995 ANNUAL REVIEW OF HM ORDERS 1997 YEARLY PREVENTIVE VISIT 1997 HIV SCREENING 2012 HPV IMMUNIZATION (1 - 3-dose series) 2012 HEPATITIS C SCREENING 05/13/2015 HEPATITIS B IMMUNIZATION (1 of 3 - 19+ 3-dose series) 2016 DTAP/TDAP/TD IMMUNIZATION (1 - Tdap) 2022 COVID-19 Vaccine (1 - 2022-2 4 season) 2022 MATERNAL SCREENING DISCUSSION 02/06/2023 PHQ-2 (once per calendar year) 2023 OBGCT (OB) 05/15/2023 INFLUENZA VACCINE (Season Ended) 2023 01/26/20 22 PAP 12/12/2023 12/11/2020 IPV IMMUNIZATION Aged Out [...] MOLECULAR WEIGHT HEPARIN ANTI XA LEVEL Routine 06/22/2023 1:58 PM CDT Pulmonary embolism affecting in second trimester [facility] US COMPREHENSIVE SINGLE F/U Routine 06/21/2023 10:50 AM CDT Encounter for ultrasound to check growth [facility] US COMPREHENSIVE SINGLE F/U Routine 05/31/2023 11:40 AM CDT Encounter for ultrasound to assess growth [facility] US COMPREHENSIVE SINGLE F/U Routine 05/10/2023 [...] ANTI XA LEVEL Routine 04/28/2023 2:27 PM BOLT LOADER Pulmonary embolism affecting in second trimester [facility] US COMPREHENSIVE SINGLE Routine 04/12/2023 10:26 AM BOLT LOADER Pulmonary embolism affecting in second trimester History of delivery, currently HCL PAP SMEAR Routine 07/16/1998 1:18 PM CDT Gynecologic Examination from Last 3 Months or Most Recently Relevant to Health Maintenance Results * Low Molecular Weight Heparin Anti Xa Level (06/22/2023 1:58 PM CDT) Only the most recent of3 resultswithin the time period is included. Anti Xa Low Molecular Weight 0.58 For Reference Range, See Comment IU/mL 06/22/2023 9:38 PM CDT [facility] Blood BLOOD SPECIMEN / Unknown Venipuncture / Unknown 06/22/2023 1:58 PM CDT 06/22/2023 1:58 PM CDT Narrative [facility] - 06/22/2023 9:38 PM CDT If collected 4-6 hours after administration: Adults: If administered only once daily with a dose of 1.5 mg/k.0-2.0 IU/mL. If administered twice daily with a dose of 1 mg/k.50-1.0 IU/mL. Pediatrics: If administered twice daily: 0.50-1.0 IU/mL. Oleg Aparicio PA-C LAB - BLOOD ORDERABL ES [facility] Lab [address], [address] [place] [address], [facility] * [facility] US Comprehensive Single F/U (06/21/2023 10:50 AM CDT) Only the most recent of3 resultswithin the time period is included. Anatomical Region Laterality Modality Ultrasound 06/21/2023 9:50 AM CDT Impressions 06/21/2023 10:14 AM CDT IMPRESSION ----- 1. Barnett at 29w 2d gestational age. 2. None of the anomalies commonly detected by ultrasound were evident in the limited anatomic survey as described above. 3. Growth parameters and estimated weight were consistent with gestational age predicted by assigned GALA. 4. The amniotic fluid volume appeared normal. Narrative 06/21/2023 10:14 AM CDT ?Comp Follow Up ----- Pat. Name: GABRIELLE C[place]AND ? Study Date: ??06/21/2023 9:50am Pat. NO: ??[id number] ?Referring ??MD: TRISTA MELLO Site: ??[facility] ? Travel Information Center Supervisor: Chanda Lazo RDMS : ??1995 ?Age: ?? 28 ----- INDICATION ----- Reevaluate growth. METHOD ----- Transabdominal ultrasound examination. View: Sufficient ----- Barnett . Number of fetuses: 1 DATING ----- ? Date ?Details ?Gest. age ?GALA LMP ?11/28/2022 ? 29 w + 2 d ? 09/04/2023 Prior assessment ? 01/26/2023 ? GA: 8 w + 0 d ?28 w + 6 d ? 09/07/2023 U/S ? 06/21/2023 ? based upon AC, BPD, Femur, HC ?28 w + 6 d ? 09/07/2023 Assigned dating ?Dating performed on 06/21/2023, based on the LMP ?29 w + 2 d ? 09/04/2023 GENERAL EVALUATION ----- Cardiac activity present. FHR 136 bpm. movements present. Presentation cephalic. Placenta Posterior. Umbilical cord 3 vessel cord. Amniotic fluid Amount of AF: normal. MVP 6.3 cm. BIOMETRY ----- Main Biometry: BPD ?72.6 ?mm ? 29w 1d ?Hadlock OFD ?95.1 ?mm ? 28w 0d ?Nicolaides HC ?267.0 ?mm ?29w 1d ?Hadlock Cerebellum tr ?35.5 ? mm ?30w 4d ?Nicolaides AC ?238.2 ?mm ?28w 1d ?14% ?Hadlock Femur ?55.3 ? mm ?29w 1d ?Hadlock Humerus ?49.1 ?mm ? 28w 6d ?Jojo Weight Calculation: EFW ? 1,258 ?g ? 18% ?Hadlock EFW (lb,oz) ? 2 lb 12 ?oz EFW by ?Hadlock ([id number]) Head / Face / Neck Biometry: Roll Contour Grinder ? 4.9 ? mm CM ?5.5 ? mm ANATOMY ----- The following structures appear normal: Head / Neck ? Cranium. Head size. Head shape. Lateral ventricles. Midline falx. Cerebellum. Cisterna magna. Thalami. Face ? Lips. Profile. Nose. Heart / Thorax ?4-chamber view. RVOT view. LVOT view. 9-wuuejw-wqhevkk view. ? Diaphragm. Abdomen ? Stomach. Kidneys. Bladder. Spine ?Cervical spine. Thoracic spine. Lumbar spine. Sacral spine. The following structures were documented previously: Head / Neck ? Cavum septi pellucidi. MATERNAL STRUCTURES ----- Cervix ?Not visualized Right Ovary ?Not examined Left Ovary ?Not examined RECOMMENDATION ----- We discussed the findings on today's ultrasound with the patient. We recommend that you reassess growth in 4 weeks. Return to primary provider for continued care. Thank-you for the opportunity to participate in the care of this patient. If you have questions regarding today's evaluation or if we can be of further service, please contact the [facility]. anomalies may be present but not detected Procedure Note Ori Adame MD - 06/21/2023 Comp Follow Up ----- Pat. Name: GABRIELLE C[place]AND Study Date: 06/21/2023 9:50am Pat. NO: [id number] Referring MD: TRISTA MELLO Site: [facility] Travel Information Center Supervisor: Chanda Lazo RDMS : 1995 Age: 28 ----- INDICATION ----- Reevaluate growth. METHOD ----- Transabdominal ultrasound examination. View: Sufficient ----- Barnett . Number of fetuses: 1 DATING ----- DateDetailsGest. age GALA LMP w + 2 d 09/04/2023 Prior assessment 01/26/2023 GA: 8 w +0 d28 w + 6 d 09/07/2023 U/S 06/21/2023ased upon AC, BPD, Femur, HC28 w + 6 d 09/07/2023 Assigned dating Dating performed on 06/21/2023, based onthe LMP 29 w +2 d 09/04/2023 GENERAL EVALUATION ----- Cardiac activity present. FHR 136 bpm. movements present. Presentation cephalic. Placenta Posterior. Umbilical cord 3 vessel cord. Amniotic fluid Amount of AF: normal. MVP 6.3 cm. BIOMETRY ----- Main Biometry: BPD 72.6 mm29w 1d Hadlock OFD 95.1 mm28w 0d Nicolaides HC 267.0 mm29w 1d Hadlock Cerebellum tr 35.5 mm30w 4d Nicolaides AC 238.2 mm28w 1d 14% Hadlock Femur 55.3 mm29w 1d Hadlock Humerus 49.1 mm28w 6d Jojo Weight Calculation: EFW 1,258 g18% Hadlock EFW (lb,oz) 2 lb 12 oz EFW by Hadlock ([id number]) Head / Face / Neck Biometry: Roll Contour Grinder 4.9 mm CM 5.5 mm ANATOMY ----- The following structures appear normal: Head / Neck Cranium. Head size. Head shape.Lateral ventricles. Midline falx. Cerebellum. Cisterna magna. Thalami. Face Lips. Profile. Nose. Heart / Thorax 4-chamber view. RVOT view. LVOT view.7-umrofq-bnxeysc view. Diaphragm. Abdomen Stomach. Kidneys. Bladder. Spine Cervical spine. Thoracic spine.Lumbar spine. Sacral spine. The following structures were documented previously: Head / Neck Cavum septi pellucidi. MATERNAL STRUCTURES ----- Cervix Not visualized Right Ovary Not examined Left Ovary Not examined RECOMMENDATION ----- We discussed the findings on today's ultrasound with the patient. We recommend that you reassess growth in 4 weeks. Return to primary provider for continued care. Thank-you for the opportunity to participate in the care of this patient.If you have questions regarding today's evaluation or if we can be offurther service, please contact the [facility]. anomalies may be present but not detected IMPRESSION ----- 1. Barnett at 29w 2d gestational age. 2. None of the anomalies commonly detected by ultrasound were evident inthe limited anatomic survey as described above. 3. Growth parameters and estimated weight were consistent withgestational age predicted by assigned GALA. 4. The amniotic fluid volume appeared normal. Ori Adame MD [facility] US ORDERABL ES * Cardiolipin Makenzie IgG [...] [facility] SPECIALTY CORE/PROT/ENDO [facility] Specialty Core/Prot/Endo [address] [facility], [address] * Beta 2 Glycoprotein 1 Antibody IgM (05/03/2023 1:03 PM CDT) Beta 2 Glycoprotein 1 Antibody IgM <2.4 <7.0 U/mL 05/04/2023 10:34 AM CDT [facility] SPECIALTY CORE/PROT/END O Comment:Negative Blood BLOOD SPECIMEN / Unknown Venipuncture / Unknown 05/03/2023 1:03 PM CDT 05/03/2023 1:03 PM CDT Oleg Aparicio PA-C LAB - BLOOD ORDERABL ES [facility] SPECIALTY CORE/PROT/ENDO UM Specialty Core/Prot/Endo [address] [facility] [address] [facility], [address] * Beta 2 Glycoprotein 1 Antibody IgG (05/03/2023 1:03 PM CDT) Beta 2 Glycoprotein 1 Antibody IgG <0.8 <7.0 U/mL 05/04/2023 10:34 AM CDT [facility] SPECIALTY CORE/PROT/END O Comment:Negative Blood BLOOD SPECIMEN / Unknown Venipuncture / Unknown 05/03/2023 1:03 PM CDT 05/03/2023 1:03 PM CDT Oleg Aparicio PA-C LAB - BLOOD ORDERABL ES Performing Organization Address City/State/[facility] Co de Phone Number UM SPECIALTY CORE/PROT/ENDO Specialty Core/Prot/Endo [address] [facility], [address] * (ABNORMAL) Lupus Anticoagulant Panel (05/03/2023 [...] of an antiphospholipid syndrome, recommend anticardiolipin and rsel-0-zttkpfmjpau n (IgG and IgM) antibody tests. Recommend [...] LAB - BLOOD ORDERABL ES SPECIAL COAGULATION Special Coagulation [address] [facility], [address] [place] [address] * [facility] Comprehensive Single (04/12/2023 10:26 AM BOLT LOADER) Anatomical Region Laterality Modality Ultrasound 04/12/2023 9:24 AM BOLT LOADER Impressions 04/12/2023 3:24 PM BOLT LOADER IMPRESSION ----- 1. Barnett intrauterine at 19w [...] long and closed. Narrative 04/12/2023 3:24 PM BOLT LOADER ?Comprehensive ----- Pat. Name: GABRIELLE [place] ? Study Date: ??04/12/2023 9:24am Pat. NO: ??[id number] ?Referring ??MD: TRISTA MELLO Site: ??[facility] ? Travel Information Center Supervisor: Edda Ayala RDMS : ??1995 ?Age: ?? [...] 0 lb 9 ?oz EFW by ?Hadlock ([id number]) Head / Face / Neck Biometry: Roll Contour Grinder ? 6.4 ? mm CM ?1.7 ? [...] cava. Inferior vena cava. 3-vessel ? view. 1-vsivif-ufgzmje view. Cardiac position. Cardiac size. Cardiac rhythm. [...] [place] Study Date: 04/12/2023 9:24am Pat. NO: [id number] Referring MD: TRISTA MELLO Site: [facility] Travel Information Center Supervisor: Edda Ayala RDMS : 1995 Age: 27 [...] 0 lb 9 oz EFW by Hadlock ([id number]-FL) Head / Face / Neck Biometry: Roll Contour Grinder 6.4 mm CM 1.7 mm Nasal bone [...] Superior venacava. Inferior vena cava. 3-vessel view. 6-eplrwk-tsyvhsc view.Cardiac position. Cardiac size. Cardiac rhythm. Right [...] ----- Thank-you for referring your patient for [facility] consult & ultrasoundassessment. I discussed the [...] appears long and closed. Ori Adame MD [facility] US ORDERABL ES * PAP SMEAR (07/16/1998 1:18 PM CDT) Unlabelled DNR [facility] Biopsy Sent [facility] Source VAG,CERV,E NDOCERV [facility] LMP POST [facility] PARA 3 [facility] 2 [facility] Clinical History DNR [facility] Therapy DNR [facility] Last Pap Diagnosis WITHIN NORMAL LIMITS [facility] PAP Date [id number] [facility] Specimen # DNR [facility] Tissue [facility]NR [facility] Tissue Date DNR [facility] Statement of Adequacy [facility] Comment: SATISFACTORY FOR INTERPRETATION POST MENOPAUSAL PATIENT. ??NO ENDOCERVICAL CELLS SEEN. General Categorization [facility] Descriptive Diagnosis [facility] Comment: WITHIN NORMAL LIMITS ATROPHIC CELL PATTERN Recommendations DNR [facility] DNR 114,,,,,, [facility] DNR DNR [facility] DNR DNR [facility] DNR DNR [facility] . [facility] Comment: ?PAP SMEARS ARE SUBJECT TO BOTH FALSE NEGATIVE AND FALSE ? POSITIVE RESULTS EVIDENCED BY DATA PUBLISHED IN THE ? MEDICAL LITERATURE. ??YOUR PATIENT'S RESULT SHOULD BE ? INTERPRETED IN THIS CONTEXT, TOGETHER WITH THE PATIENT'S ? HISTORY AND CLINICAL FINDINGS. TESTING LOCATION ? [facility] ? [address]. [id number] ? PHONE NUMBERS FOR CYTOLOGY INQUIRES, INCLUDING SLIDE REQUESTS ? EXT. [id number] ?? EXT. [id number] 07/14/1998 Melony Hernandez MD LABORATORY [facility] from Last 3 Months or Most Recently Relevant to Health Maintenance Care Teams Clinical Education Consultant Relationship Specialty Start Date End Date No Ref-Primary, Physician PCP - General 03/31/23 Oleg Aparicio, PABrightC [address] [place], [place] [id number] Assigned Cancer Care Provider 05/06/23 Ana Oreilly MD [address] [place] [address] Assigned OBGYN Provider 05/06/23
--- OUTSIDE RECORDS SUMMARY | 2023-06-23 10:14 | XMS_ITS | Encounter Summary ---
Author Name Unknown Organization [place] Address [address] [place] [address]. [place] [address] Care Team Providers Care Nutrition Services Manager Name Role Phone No Ref-Primary, Physician Primary Care Provider Encounter Details Date Type Department Care Team ([facility] st Contact Info) Description 04/28/[address] [facility] [place] [place] for [facility] [address] [address] Oleg Aparicio PA-C [address] [place] [phone] 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 Tobacco Use Types Packs/Day Years [...] from the original note were not included. [facility] [address] [place] [address] [address], [place] [address] Main: [phone], Telephone Note: Patient: Gabrielle Mcmahon : 1995 Date of this note written: April 28, 2023 Time: 15:55 This editorial writer called the patient on 04/28/2023 at [...] post . Oleg Aparicio PA-C, MPAS Physician Automobile Rental Agent [facility] for Ble[facility] Cl[facility]. Y ABROAD ADVISOR documented in this encounter Plan of Treatment Upcoming Encounters Date Type Department Care Team (Late st Contact Info) Description 07/04/2023 2:30 PM CDT Office Visit [facility] [place] [place] [facility] [address] [place] [address] Oleg Aparicio PA-C [address] [place] [address] documented as of this encounter Visit Diagnoses Not on filedocumented in this encounter Care Teams Nutrition Services Manager Relationship Specialty Start Date End Date No Ref-Primary, Physician PCP - General 03/31/23 documented as of this encounter
--- OUTSIDE RECORDS SUMMARY | 2023-06-23 10:14 | XMS_ITS | Encounter Summary ---
Author Name Unknown Organization [place] Address [address] [place] [address] Care Team Providers Care Pediatric Clinical Nurse Specialist Name Role Phone No Ref-Primary, Physician Primary Care Provider Oleg Aparicio PA-C Unavailable [phone] Ana Oreilly MD Unavailable [phone] Reason for Referral * Diagnostic Imaging Ultrasound (Routine) - Pending Review Specialty Diagnoses / Procedures Referred By Contac t Referred To Contact Radiology. Diagnoses related condition, antepartum Procedures [facility] US Comprehensive Single F/U Ori Adame MD [address] [place], [place] [address] [address] Referral ID Status Reason Start Date Expiration Date V isits Requested Visits Authorized [id number] Pending Review 05/10/2023 05/09/2024 1 1 Reason for Visit * Diagnostic Imaging Ultrasound (Routine) - Pending Review Specialty Diagnoses / Procedures Referred By Contac t Referred To Contact Radiology. Diagnoses related condition, antepartum Procedures [facility] US Comprehensive Single F/U Ori Adame MD [address] [address] Referral ID Status Reason Start Date Expiration Date V isits Requested Visits Authorized [id number] Pending Review 05/10/2023 05/09/2024 1 1 Encounter Details Date Type Department Care Team (Latest Contact Info) Description 05/31/2023 10:45 AM CDT - 05/31/2023 11:59 PM CDT Hospital Encounter [facility] [place] [address] [place] [phone] Ori Adame MD [address] [place], [place] [address] Encounter for ultrasound to assess growth Discharge [...] Description 07/04/2023 2:30 PM CDT Office Visit [facility] [address] [place] [phone] Oleg Aparicio PA-C [address] [place] [address] documented as of this encounter Procedures Procedure Name Priority Date/Time Associated Diagnosis Comments [facility] US COMPREHENSIVE SINGLE F/U Routine 05/31/2023 11:40 AM CDT Encounter for ultrasound to assess growth documented in this encounter Results * [facility] US Comprehensive Single F/U (05/31/2023 11:40 [...] ? Study Date: ??05/31/2023 10:49am Pat. NO: ??[id number] ?Referring ??: TRISTA MELLO Site: ??[facility] ? Helicopter Technician: Chanda Lazo RDMS : ??1995 ?Age: ?? [...] lb 13 ? oz EFW by ?Hadlock ([id number]) Head / Face / Neck Biometry: Residential Property Tax Appraiser ? 5.7 ? mm CM ?7.7 ? mm ANATOMY ----- The following structures appear normal: Head / Neck ? Cranium. Head size. Head shape. Lateral ventricles. Midline falx. Cavum septi pellucidi. Cerebellum. Cisterna magna. Thalami. Heart / Thorax ?4-chamber view. RVOT view. LVOT view. 8-kxxfqh-lyyxtaf view. ? Diaphragm. Abdomen ? Stomach. Kidneys. [...] [place] Study Date: 05/31/2023 10:49am Pat. NO: [id number] Referring MD: TRISTA MELLO Site: [facility] Helicopter Technician: Chanda Lazo RDMS : 1995 Age: [...] 1 lb 13 oz EFW by Hadlock ([id number]-FL) Head / Face / Neck Biometry: Residential Property Tax Appraiser 5.7 mm CM 7.7 mm ANATOMY ----- The following structures appear normal: Head / Neck Cranium. Head size. Head shape.Lateral ventricles. Midline falx. Cavum septi pellucidi. Cerebellum.Cisterna magna. Thalami. Heart / Thorax 4-chamber view. RVOT view. LVOT view.0-funauv-etesemq view. Diaphragm. Abdomen Stomach. Kidneys. Bladder. Spine [...] fluid volume appeared normal. Ori Adame MD [facility] US ORDERABL ES documented in this encounter Visit Diagnoses Diagnosis Encounter for ultrasound to assess growth documented in this encounter Care Teams Pediatric Clinical Nurse Specialist Relationship Specialty Start Date End Date No Ref-Primary, Physician PCP - General 03/31/23 Oleg Aparicio PA-C [address] [place], [place] [address] Assigned Cancer Care Provider 05/06/23 Ana Oreilly MD [address] [place] [address] Assigned OBGYN Provider 05/06/23 documented as of this encounter
--- OUTSIDE RECORDS SUMMARY | 2023-06-23 10:14 | XMS_ITS | Encounter Summary ---
Author Name Unknown Organization [place] Address [address] [facility] [place] [address] Care Team Providers Care Sales Representative Health Insurance Name Role Phone No Ref-Primary, Physician Primary Care Provider Oleg Aparicio PA-C Unavailable [phone] Ana Oreilly MD Unavailable [phone] Reason for Visit * Reason Comments Ultrasound RL2-EFW14% Encounter Details Date Type Department Care Team (Late st Contact Info) Description 06/21/2023 10:00 AM CDT Office Visit [facility] [place] [address] [place] [address] Ori Adame MD [address] [facility] [address] [place] [address] Encounter for ultrasound to check [...] Progress Notes * Ori Adame MD - 06/21/2023 10:00 AM CDT Please see Imaging tab under Chart Review for details of today's US at the [facility]. Ori Adame MD Maternal- Medicine documented in this encounter Nursing Notes * Mara Cheung, RN - 06/21/2023 10:00 AM CDT Patient reports good movement, reports [place] Thomas contractions, denies leaking of fluid, or bleeding. SBAR given to [facility] MD, see their note in Epic. documented in this encounter Plan of Treatment Upcoming Encounters Date Type Department Care Team (Late st Contact Info) Description 07/04/2023 2:30 PM CDT Office Visit [facility] [address] [place] [address] Oleg Aparicio PA-C [address] [place], [place] [address] documented as of this encounter Visit Diagnoses Diagnosis Encounter for ultrasound to check growth- Primary documented in this encounter Care Teams Sales Representative Health Insurance Relationship Specialty Start Date End Date No Ref-Primary, Physician PCP - General 03/31/23 Oleg Aparicio PA-C [address] [place], [place] [address] Assigned Cancer Care Provider 05/06/23 Ana Oreilly MD [address] [place], [place] [address] Assigned OBGYN Provider 05/06/23 documented as of this encounter
--- OUTSIDE RECORDS SUMMARY | 2023-06-23 10:14 | XMS_ITS | Encounter Summary ---
Author Name Unknown Organization [place] Address [address] [place] [address] Care Team Providers Care Lodging Manager Name Role Phone No Ref-Primary, Physician [...] Description 07/04/2023 2:30 PM CDT Office Visit [facility] [address] [place] [phone] Oleg Aparicio PA-C [address] [place] [address] documented as of this encounter Visit Diagnoses Not on filedocumented in this encounter Care Teams Lodging Manager Relationship Specialty Start Date End Date No Ref-Primary, Physician PCP - General 03/31/23 documented as of this encounter
--- OUTSIDE RECORDS SUMMARY | 2023-06-23 10:14 | XMS_ITS | Encounter Summary ---
Author Name Unknown Organization [place] Address [address] [place] [address] Care Team Providers Care Airworthiness Safety Inspector Name Role Phone No Ref-Primary, Physician Primary Care Provider Oleg Aparicio PA-C Unavailable [phone] Ana Oreilly MD Unavailable [phone] Reason for Referral * Diagnostic Imaging Ultrasound (Routine) - Pending Review Specialty Diagnoses / Procedures Referred By Contac t Referred To Contact Radiology. Diagnoses Pulmonary embolism affecting in second trimester Procedures [facility] US Comprehensive Single F/U Ana Oreilly MD [address] [address] Referral ID Status Reason Start Date Expiration Date V isits Requested Visits Authorized [id number] Pending Review 04/12/2023 04/11/2024 1 1 Reason for Visit * Diagnostic Imaging Ultrasound (Routine) - Pending Review Specialty Diagnoses / Procedures Referred By Contac t Referred To Contact Radiology. Diagnoses Pulmonary embolism affecting in second trimester Procedures [facility] US Comprehensive Single F/U Ana Oreilly MD [address] [place] [address] Referral ID Status Reason Start Date Expiration Date V isits Requested Visits Authorized [id number] Pending Review 04/12/2023 04/11/2024 1 1 Encounter Details Date Type Department Care Team (Latest Contact Info) Description 05/10/2023 9:28 AM CDT - 05/10/2023 11:59 PM CDT Hospital Encounter [facility] [place] [address] [place] [address] Ori Adame MD [address] [place], [place] [address] Pulmonary embolism affecting in second trimester Discharge [...] Description 07/04/2023 2:30 PM CDT Office Visit [facility] [address] [place] [phone] Oleg Aparicio PA-C [address] [place] [address] documented as of this encounter Procedures Procedure Name Priority Date/Time Associated Diagnosis Comments [facility] COMPREHENSIVE SINGLE F/U Routine 05/10/2023 10:08 AM CDT Pulmonary embolism affecting in second trimester documented in this encounter Results * [facility] Comprehensive Single F/U (05/10/2023 10:08 AM CDT) [...] ? Study Date: ??05/10/2023 9:30am Pat. NO: ??[id number] ?Referring ??: TRISTA MELLO Site: ??[facility] ? Upholsterer Apprentice: Yamel Hill RDMS : ??1995 ?Age: ?? [...] 1 lb 2 ?oz EFW by ?Hadlock ([id number]-FL) Head / Face / Neck Biometry: Tool Clerk ? 6.2 ? mm CM ?3.8 ? mm Nasal bone ? 7.0 ? mm ANATOMY ----- The following structures appear normal: Head / Neck ? Cranium. Head size. Head shape. Lateral ventricles. Midline falx. Cavum septi pellucidi. Cerebellum. Cisterna magna. Thalami. Face ? Lips. Profile. Nose. Maxilla. Mandible. Heart / Thorax ?4-chamber view. RVOT view. LVOT view. Situs. 2-fmgyup-gdwhqtw view. ? Diaphragm. Abdomen ? Stomach. Kidneys. [...] the 15%tile we will reassess growth at M in 3 weeks. Return to primary provider [...] [place] Study Date: 05/10/2023 9:30am Pat. NO: [id number] Referring MD: TRISTA MELLO Site: [facility] Upholsterer Apprentice: Yamel Hill RDMS : 1995 Age: 27 [...] 1 lb 2 oz EFW by Hadlock ([id number]-FL) Head / Face / Neck Biometry: Tool Clerk 6.2 mm CM 3.8 mm Nasal bone 7.0 mm ANATOMY ----- The following structures appear normal: Head / Neck Cranium. Head size. Head shape.Lateral ventricles. Midline falx. Cavum septi pellucidi. Cerebellum.Cisterna magna. Thalami. Face Lips. Profile. Nose. Maxilla.Mandible. Heart / Thorax 4-chamber view. RVOT view. LVOT view.Situs. 9-zwvufw-zqpuhgi view. Diaphragm. Abdomen Stomach. Kidneys. Bladder. Spine [...] the 15%tile we will reassess growth at [facility] in 3weeks. Return to primary provider for [...] length with no funneling. Ana Oreilly MD [facility] US ORDERABLE S documented in this encounter Visit Diagnoses Diagnosis Pulmonary embolism affecting in second trimester documented in this encounter Care Teams Airworthiness Safety Inspector Relationship Specialty Start Date End Date No Ref-Primary, Physician PCP - General 03/31/23 Oleg Aparicio PA-C [address] [place], [place] [address] Assigned Cancer Care Provider 05/06/23 Ana Oreilly MD [address] [place] [address] Assigned OBGYN Provider 05/06/23 documented as of this encounter
--- OUTSIDE RECORDS SUMMARY | 2023-06-23 10:14 | XMS_ITS | Encounter Summary ---
Author Name Unknown Organization [place] Address [address] [place] [address] Care Team Providers Care Engineering Analyst Name Role Phone No Ref-Primary, Physician Primary Care Provider Reason for Referral * Diagnostic Imaging Ultrasound (Routine) - Pending Review Specialty Diagnoses / Procedures Referred By Contac t Referred To Contact Radiology. Diagnoses Pulmonary embolism affecting in second trimester History of delivery, currently Procedures [facility] Ori Jerome MD [address] [place], [place] [address] [address] [address] Referral ID Status Reason Start Date Expiration Date V isits Requested Visits Authorized [id number] Pending Review 03/10/2023 03/09/2024 1 1 GEMENT LEAD Reason for Visit * Diagnostic Imaging Ultrasound (Routine) - Pending Review Specialty Diagnoses / Procedures Referred By Contac t Referred To Contact Radiology. Diagnoses Pulmonary embolism affecting in second trimester History of delivery, currently Procedures [facility] Ori Jerome MD [address] [facility] [address] [facility] [address] [place] [address] Referral ID Status Reason Start Date Expiration Date V isits Requested Visits Authorized [id number] Pending Review 03/10/2023 03/09/2024 1 1 Encounter Details Date Type Department Care Team (Latest Contact Info) Description 04/12/2023 9:11 AM MANAGEMENT LEAD - 04/12/2023 11:59 PM MANAGEMENT LEAD Hospital Encounter [facility] [address] [place] [phone] Ana Oreilly MD [address] [place], [place] [address] Pulmonary embolism affecting in second trimester; History [...] Description 07/04/2023 2:30 PM CDT Office Visit [facility] [address] [place] [address] Oleg Aparicio, PABrightC [address] [place], [place] [address] documented as of this encounter Procedures Procedure Name Priority Date/Time Associated Diagnosis Comments [facility] US COMPREHENSIVE SINGLE Routine 04/12/2023 10:26 AM MANAGEMENT LEAD Pulmonary embolism affecting in second trimester History of delivery, currently documented in this encounter Results * [facility] US Comprehensive Single (04/12/2023 10:26 AM MANAGEMENT LEAD) Anatomical Region Laterality Modality Ultrasound 04/12/2023 9:24 AM MANAGEMENT LEAD Impressions 04/12/2023 3:24 PM MANAGEMENT LEAD IMPRESSION ----- 1. Barnett intrauterine at 19w [...] long and closed. Narrative 04/12/2023 3:24 PM MANAGEMENT LEAD ?Comprehensive ----- Pat. Name: GABRIELLE [place] ? Study Date: ??04/12/2023 9:24am Pat. NO: ??[id number] ?Referring ??: TRISTA MELLO Site: ??[facility] ? Acquisition Cost Estimator: Edda Ayala RDMS : ??1995 ?Age: ?? [...] 0 lb 9 ?oz EFW by ?Hadlock ([id number]-FL) Head / Face / Neck Biometry: Complaint Investigator ? 6.4 ? mm CM ?1.7 ? [...] cava. Inferior vena cava. 3-vessel ? view. 3-npbiri-moybwoj view. Cardiac position. Cardiac size. Cardiac rhythm. [...] ----- Thank-you for referring your patient for [facility] consult & ultrasound assessment. I discussed the [...] [place] Study Date: 04/12/2023 9:24am Pat. NO: [id number] Referring MD: TRISTA MELLO Site: [facility] Acquisition Cost Estimator: Edda Ayala RDMS : 1995 Age: 27 [...] 0 lb 9 oz EFW by Hadlock ([id number]-FL) Head / Face / Neck Biometry: Complaint Investigator 6.4 mm CM 1.7 mm Nasal bone [...] Superior venacava. Inferior vena cava. 3-vessel view. 2-hmkgiy-xkwmxbi view.Cardiac position. Cardiac size. Cardiac rhythm. Right [...] appears long and closed. Ori Adame MD [facility] US ORDERABL ES documented in this encounter Visit Diagnoses Diagnosis Pulmonary embolism affecting in second trimester History of delivery, currently with history of pre-term labor documented in this encounter Care Teams Engineering Analyst Relationship Specialty Start Date End Date No Ref-Primary, Physician PCP - General 03/31/23 documented as of this encounter
--- OUTSIDE RECORDS SUMMARY | 2023-06-23 10:14 | XMS_ITS | Encounter Summary ---
Author Name Unknown Organization [place] Address [address] [facility] [address] Care Team Providers Care Pharmacy Billing Adjudicator Name Role Phone No Ref-Primary, Physician Primary Care Provider Oleg Aparicio PA-C Unavailable [phone] Ana Oreilly MD Unavailable [phone] Reason for Referral * Diagnostic Imaging Ultrasound (Routine) - Pending Review Specialty Diagnoses / Procedures Referred By Diana t Referred To Contact Radiology. Diagnoses Encounter for ultrasound to check growth Procedures [facility] US Comprehensive Single F/U Ori Adaem MD [address] [place] [address] Referral ID Status Reason Start Date Expiration Date V isits Requested Visits Authorized [id number] Pending Review 05/31/2023 05/30/2024 1 1 Reason for Visit * Reason Comments Ultrasound RL2-reassess g rowth, EFW 15% Encounter Details Date Type Department Care Team (Late st Contact Info) Description 05/31/2023 11:30 AM CDT Office Visit [facility] [place] [address] [place] [address] Ori Adame MD [address] [place] [address] Encounter for ultrasound to check [...] for details of today's US at the [facility]. Ori Adame MD Maternal- Medicine documented [...] OB givenhistory of PE. SBAR given to [facility] (Dr. Adame), see their note in Epic. documented in this encounter Plan of Treatment Upcoming Encounters Date Type Department Care Team (Late st Contact Info) Description 07/04/2023 2:30 PM CDT Office Visit [facility] [address] [place] [address] Oleg Aparicio PA-C [address] [place] [address] documented as of this encounter Results * [facility] US Comprehensive Single F/U (06/21/2023 10:50 AM CDT) Anatomical Region Laterality Modality Ultrasound 06/21/2023 9:50 [...] ? Study Date: ??06/21/2023 9:50am Pat. NO: ??[id number] ?Referring ??MD: TRISTA MELLO Site: ??[facility] ? Pattern Storage Clerk: Chanda Lazo RDMS : ??1995 ?Age: ?? [...] 2 lb 12 ?oz EFW by ?Hadlock ([id number]-[id number]-FL) Head / Face / Neck Biometry: Water Chaser ? 4.9 ? mm CM ?5.5 ? mm ANATOMY ----- The following structures appear normal: Head / Neck ? Cranium. Head size. Head shape. Lateral ventricles. Midline falx. Cerebellum. Cisterna magna. Thalami. Face ? Lips. Profile. Nose. Heart / Thorax ?4-chamber view. RVOT view. LVOT view. 4-knfzxi-hidmocn view. ? Diaphragm. Abdomen ? Stomach. Kidneys. [...] [place] Study Date: 06/21/2023 9:50am Pat. NO: [id number] Referring MD: TRISTA MELLO Site: [facility] Pattern Storage Clerk: Cahnda Lazo RDMS : 1995 Age: 28 ----- [...] 2 lb 12 oz EFW by Hadlock ([id number]-FL) Head / Face / Neck Biometry: Water Chaser 4.9 mm CM 5.5 mm ANATOMY ----- The following structures appear normal: Head / Neck Cranium. Head size. Head shape.Lateral ventricles. Midline falx. Cerebellum. Cisterna magna. Thalami. Face Lips. Profile. Nose. Heart / Thorax 4-chamber view. RVOT view. LVOT view.7-wwcubd-nzuzhzq view. Diaphragm. Abdomen Stomach. Kidneys. Bladder. Spine [...] fluid volume appeared normal. Ori [facility] documented in this encounter Visit Diagnoses Diagnosis Encounter for ultrasound to check growth- Primary Encounter for ultrasound to check growth documented in this encounter Care Teams Pharmacy Billing Adjudicator Relationship Specialty Start Date End Date No Ref-Primary, Physician PCP - General 03/31/23 Oleg Aparicio PA-C [address] [place], [place] [address] Assigned Cancer Care Provider 05/06/23 Ana Oreilly MD [address] [facility] [address] [place] [address] Assigned OBGYN Provider 05/06/23 documented as of this encounter
--- OUTSIDE RECORDS SUMMARY | 2023-06-23 10:14 | XMS_ITS | Encounter Summary ---
Author Name Unknown Organization [place] Address [address] [place] [address]. [place] [address] Care Team Providers Care Pilot Name Role Phone No Ref-Primary, Physician Primary Care Provider Encounter Details Date Type Department Care Team (Late st Contact Info) Description 05/03/2023 1:00 PM CDT Lab [facility] [address] [place] [address] Pulmonary embolism affecting in second [...] Description 07/04/2023 2:30 PM CDT Office Visit [facility] [address] [place] [phone] Oleg Aparicio PA-C [address] [place], [place] [address] documented as of this encounter Procedures Procedure [...] [facility] SPECIALTY CORE/PROT/ENDO UM Specialty Core/Prot/Endo [address] [facility] [address] [facility], Room [address] [place] [address] * Beta 2 Glycoprotein 1 Antibody IgG (05/03/2023 1:03 PM CDT) Beta 2 Glycoprotein 1 Antibody IgG <0.8 <7.0 U/mL 05/04/2023 10:34 AM CDT SPECIALTY CORE/PROT/END O Comment:Negative Blood BLOOD SPECIMEN / Unknown Venipuncture / Unknown 05/03/2023 1:03 PM CDT 05/03/2023 1:03 PM CDT Oleg Aparicio PA-C LAB - BLOOD ORDERABL ES [facility] SPECIALTY CORE/PROT/ENDO UM Specialty Core/Prot/Endo [address] [facility] [address], [address] * Cardiolipin [place] IgG and IgM [...] UM SPECIALTY CORE/PROT/ENDO UM Specialty Core/Prot/Endo [address] [facility] [address], [address] * (ABNORMAL) Lupus Anticoagulant Panel (05/03/2023 [...] of an antiphospholipid syndrome, recommend anticardiolipin and ewnc-6-exiheaznvfu n (IgG and IgM) antibody tests. Recommend repeat testing on a new sample as decreased clotting times can sometimes be seen with poor specimen quality. Causes of a prolonged Thrombin Time include: hypofibrinogenemia , dysfibrinogenemia, elevated fibrin degradation products (e.g. D-dimer), ??anticoagulants (e.g. heparin and direct thrombin inhibitors), and inhibitors. Elizabeth Chao MD, PhD [facility] 4 2:25 PM CDT SPECIAL COAGULATION Blood BLOOD SPECIMEN / Unknown Venipuncture / Unknown 05/03/2023 1:03 PM CDT 05/03/2023 1:03 PM CDT Oleg Aparicio PA-C LAB - BLOOD ORDERABL ES SPECIAL COAGULATION UM Special Coagulation [address] [facility], [address] [place] [phone] * Low Molecular Weight Heparin [...] LAB - BLOOD ORDERABL ES [facility]AT[facility] [address] [facility], [address] [phone] documented in this encounter Visit Diagnoses Diagnosis Pulmonary embolism affecting in second trimester Family history of blood clots Family history of other blood disorders documented in this encounter Care Teams Pilot Relationship Specialty Start Date End Date No Ref-Primary, Physician PCP - General 03/31/23 documented as of this encounter
--- OUTSIDE RECORDS SUMMARY | 2023-06-23 10:14 | XMS_ITS | Encounter Summary ---
Author Name Unknown Organization [place] Address [address] [place] [address] Care Team Providers Care Ball Holder Name Role Phone No Ref-Primary, Physician Primary Care Provider Oleg Aparicio PA-C Unavailable [phone] Ana Oreilly MD Unavailable [phone] Reason for Referral * Diagnostic Imaging Ultrasound (Routine) - Pending Review Specialty Diagnoses / Procedures Referred By Contac t Referred To Contact Radiology. Diagnoses Encounter for ultrasound to check growth Procedures [facility] US Comprehensive Single F/U Ori Adame MD [address] [facility] Marco Vasco S [address] [address] Referral ID Status Reason Start Date Expiration Date V isits Requested Visits Authorized [id number] Pending Review 05/31/2023 05/30/2024 1 1 Reason for Visit * Diagnostic Imaging Ultrasound (Routine) - Pending Review Specialty Diagnoses / Procedures Referred By Contac t Referred To Contact Radiology. Diagnoses Encounter for ultrasound to check growth Procedures [facility] US Comprehensive Single F/U Ori Adame MD [address] [employer] S [address] [address] Referral ID Status Reason Start Date Expiration Date V isits Requested Visits Authorized [id number] Pending Review 05/31/2023 05/30/2024 1 1 Encounter Details Date Type Department Care Team (Latest Contact Info) Description 06/21/2023 9:30 AM CDT - 06/21/2023 11:59 PM CDT Hospital Encounter [facility] [place] [address] [place] [phone] Ori Adame MD [address] [place], [place] [address] Encounter for ultrasound to check growth Discharge [...] Description 07/04/2023 2:30 PM CDT Office Visit [facility] [address] [place] [address] Oleg Aparicio PA-C [address] [place] [address] documented as of this encounter Procedures Procedure Name Priority Date/Time Associated Diagnosis Comments [facility] US COMPREHENSIVE SINGLE F/U Routine 06/21/2023 10:50 AM CDT Encounter for ultrasound to check growth documented in this encounter Results * [facility] US Comprehensive Single F/U (06/21/2023 10:50 [...] ? Study Date: ??06/21/2023 9:50am Pat. NO: ??[id number] ?Referring ??: TRISTA MELLO Site: ??[facility] ? Commercial Loan Coordinator: Chanda Lazo RDMS : ??1995 ?Age: ?? [...] ? 2 lb 12 ?oz EFW by ?George ([id number]) Head / Face / Neck Biometry: Laborer Adjustable Steel Joist ? 4.9 ? mm CM ?5.5 ? mm ANATOMY ----- The following structures appear normal: Head / Neck ? Cranium. Head size. Head shape. Lateral ventricles. Midline falx. Cerebellum. Cisterna magna. Thalami. Face ? Lips. Profile. Nose. Heart / Thorax ?4-chamber view. RVOT view. LVOT view. 2-vwwbum-ttfwass view. ? Diaphragm. Abdomen ? Stomach. Kidneys. [...] [place] Study Date: 06/21/2023 9:50am Pat. NO: [id number] Referring MD: TRISTA MELLO Site: [facility] Commercial Loan Coordinator: Chanda Lazo RDMS : 1995 Age: 28 [...] 2 lb 12 oz EFW by Hadlock ([id number]) Head / Face / Neck Biometry: Laborer Adjustable Steel Joist 4.9 mm CM 5.5 mm ANATOMY ----- The following structures appear normal: Head / Neck Cranium. Head size. Head shape.Lateral ventricles. Midline falx. Cerebellum. Cisterna magna. Thalami. Face Lips. Profile. Nose. Heart / Thorax 4-chamber view. RVOT view. LVOT view.7-ukvtga-xsqxley view. Diaphragm. Abdomen Stomach. Kidneys. Bladder. Spine [...] fluid volume appeared normal. Ori Adame MD IMG [facility] US ORDERABL ES documented in this encounter Visit Diagnoses Diagnosis Encounter for ultrasound to check growth documented in this encounter Care Teams Ball Holder Relationship Specialty Start Date End Date No Ref-Primary, Physician PCP - General 03/31/23 Oleg Aparicio PA-C [address] [place] [address] Assigned Cancer Care Provider 05/06/23 Ana Oreilly MD [address] [place] [address] Assigned OBGYN Provider 05/06/23 documented as of this encounter
--- OUTSIDE RECORDS SUMMARY | 2023-06-23 10:14 | XMS_ITS | Encounter Summary ---
Author Name Unknown Organization [place] Address [address] [facility] [place] [address] Care Team Providers Care Core Finisher Name Role Phone No Ref-Primary, Physician Primary Care Provider Oleg Aparicio PA-C Unavailable [phone] Ana Oreilly MD Unavailable [phone] Encounter Details Date Type Department Care Team (Latest Contact Info) Description 06/21/2023 Travel 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 Tobacco Use Types Packs/Day [...] Description 07/04/2023 2:30 PM CDT Office Visit [facility] [address] [place] [phone] Oleg Aparicio PA-C [address] [place], [place] [address] documented as of this encounter Visit Diagnoses Not on filedocumented in this encounter Care Teams Core Finisher Relationship Specialty Start Date End Date No Ref-Primary, Physician PCP - General 03/31/23 Oleg Aparicio PA-C [address] [place], [place] [address] Assigned Cancer Care Provider 05/06/23 Ana Oreilly MD [address] [place], [place] [address] Assigned OBGYN Provider 05/06/23 documented as of this encounter
--- OUTSIDE RECORDS SUMMARY | 2023-06-23 10:14 | XMS_ITS | Encounter Summary ---
Author Name Unknown Organization [place] Address [address] [facility] [place] [address] Care Team Providers Care Machine Set Up Operator Paper Goods Name Role Phone No Ref-Primary, Physician Primary [...] Description 07/04/2023 2:30 PM CDT Office Visit [facility] [address] [place] [phone] Oleg Aparicio PA-C [address] [place] [address] documented as of this encounter Visit Diagnoses Not on filedocumented in this encounter Care Teams Machine Set Up Operator Paper Goods Relationship Specialty Start Date End Date No Ref-Primary, Physician PCP - General 03/31/23 documented as of this encounter
--- OUTSIDE RECORDS SUMMARY | 2023-06-23 10:14 | XMS_ITS | Encounter Summary ---
Author Name Unknown Organization [place] Address [address] [place] [address]. [place] [address] Care Team Providers Care Commercial Attache Name Role Phone No Ref-Primary, Physician Primary Care Provider Oleg Aparicio PA-C Unavailable [phone] Ana Oreilly MD Unavailable [phone] Encounter Details Date Type Department Care Team (Late st Contact Info) Description 04/28/2023 MyC Medical Advice [facility] [address] [place] [address] [address] [place] [phone] Carmen Pollack RN 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 Tobacco Use Types Packs/Day Years [...] Description 07/04/2023 2:30 PM CDT Office Visit [facility] [address] [place] [phone] Oleg Aparicio PA-C [address] [place], [place] [address] documented as of this encounter Visit Diagnoses Not on filedocumented in this encounter Care Teams Commercial Attache Relationship Specialty Start Date End Date No Ref-Primary, Physician PCP - General 03/31/23 Oleg Aparicio PA-C [address] [facility] [address] [place], [place] [address] Assigned Cancer Care Provider 05/06/23 Ana Oreilly MD [address] [facility] [address] [place], [place] [address] Assigned OBGYN Provider 05/06/23 documented as of this encounter
--- OUTSIDE RECORDS SUMMARY | 2023-06-23 10:14 | XMS_ITS | Encounter Summary ---
Author Name Unknown Organization [place] Address [address] [place] [address] Care Team Providers Care Auto Research Engineer Name Role Phone No Ref-Primary, Physician Primary Care Provider Reason for Visit * Reason Comments CLOTTING * Consultation (Priority: 1-2 Weeks) - Pending Review Specialty Diagnoses / Procedures Referred By Contac t Referred To Contact Medical Oncology Diagnoses Pulmonary embolism affecting in second trimester Ana Oreilly MD [address] [facility] [address] [place] [address] Referral ID Status Reason Start Date Expiration Date V isits Requested Visits Authorized [id number] Pending Review 04/12/2023 04/11/2024 1 1 Encounter Details Date Type Department Care Team (Late st Contact Info) Description 04/28/2023 1:30 PM LINEN ROOM CUSTODIAN Office Visit [facility] [address] [place] [address] Ana Oreilly MD [address] [place] [address] Oleg Aparicio, PABrightC [address] [place] [address] Pulmonary embolism affecting in second [...] Comments Blood Pressure 113/69 04/28/2023 1:25 PM LINEN ROOM CUSTODIAN Pulse 72 04/28/2023 1:25 PM LINEN ROOM CUSTODIAN Temperature 36.7 ??C (98 ??F) 04/28/2023 1:25 PM LINEN ROOM CUSTODIAN Respiratory Rate - - Oxygen Saturation 98% 04/28/2023 1:25 PM LINEN ROOM CUSTODIAN Inhaled Oxygen Concentration - - Weight 68.9 kg (152 lb) 04/28/2023 1:25 PM LINEN ROOM CUSTODIAN Height 170.2 cm (5' 7) 04/28/2023 1:25 PM LINEN ROOM CUSTODIAN Body Mass Index 23.81 04/28/2023 1:25 PM LINEN ROOM CUSTODIAN documented in this encounter Progress Notes * Oleg Aparicio PA-C - 04/28/2023 1:30 PM CST Images from the original note were not included. [facility] [address] [place] [address] Main: [phone], Patient seen at: [place] [facility] at [address] [place] [address] Outpatient Visit Note: Patient: Gabrielle Mcmahon : 1995 DEBORAH: April 28, 2023 Location of this senior technical writer at the time of this clinic visit was conducted: [facility], [facility]. Location of the patient at the time of this clinic visit was conducted: [facility]. Reason [...] the patient's pulmonary embolism was diagnosed at [facility] and I am unable to find any progress notes, H&P notes or discharge summary of this hospitalization in her records. I am able, however, to see some labs and imaging studies via [facility] Everywhere from [facility]. From what I can gather, Gabrielle was [...] was performed. She then went to the [facility] emergency department on 03/08/2023 with chest pain. [...] today, the [facility] and consult them about the need [...] the time, her mother was seen at [facility] and from Gabrielle's description, it was consistent with c erebral sinus thrombosis but not entirely clear. Gabrielle report that her mother's blood clot was related to control and her mother is no longer on anticoagulation therapy. Gabrielle is unclear ifother thrombophilia workup was done with her mother. Then on 04/22/2023, this senior technical writer received a call from a nurse at [facility] and was inquiring about her enoxaparin dosing. At the time, this senior technical writer was informed that her Anti-Xa level was subtherapeutic at I belief at 0.3 (again, I am not able to see any [facility]'s or systems notes. 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 Has not return to work as [...] a LMWH Anti-Xa level reported to this senior technical writer from [facility] that was subtherapeutic. I will plan to [...] weeks gestation) to be done at a [facility] so that we can get the result [...] or concerns. Oleg Aparicio PA-C, MPAS Physician End Maker [facility]. The longitudinal [...] note. Time IN: 13:30 Time OUT: 14:15 N ROOM CUSTODIAN documented in this encounter Miscellaneous Notes * Addendum Note - Oleg Aparicio PA-C - 04/28/2023 1:30 PM CSTAddended by: OLEG APARICIO on: 04/28/2023 04:09 PM Modules accepted: Orders N ROOM CUSTODIAN documented in this encounter Plan of Treatment Upcoming Encounters Date Type Department Care Team (Late st Contact Info) Description 07/04/2023 2:30 PM CDT Office Visit [facility] [address] [place] [phone] Oleg Aparicio PA-C [address] [place] [address] documented as of this encounter Procedures Procedure Name Priority Date/Time Associated Diagnosis Comments LOW MOLECULAR WEIGHT HEPARIN ANTI XA LEVEL Routine 04/28/2023 2:27 PM LINEN ROOM CUSTODIAN Pulmonary embolism affecting in second trimester documented in this encounter Results * Low Molecular Weight Heparin Anti Xa Level (06/22/2023 1:58 PM CDT) Pathologist [facility] Anti Xa Low Molecular Weight 0.58 For [...] LAB - BLOOD ORDERABL ES [facility] LAB[facility]ATORY [facility] Core Lab [address] [facility], [address] [address] * Beta 2 Glycoprotein 1 Antibody IgM (05/03/2023 1:03 PM CDT) [facility] Beta 2 Glycoprotein 1 Antibody IgM <2.4 <7.0 U/mL 05/04/2023 10:34 AM CDT SPECIALTY CORE/PROT/END O Comment:Negative Blood BLOOD SPECIMEN / Unknown Venipuncture / Unknown 05/03/2023 1:03 PM CDT 05/03/2023 1:03 PM CDT Oleg Aparicio PA-C LAB - BLOOD ORDERABL ES SPECIALTY CORE/PROT/ENDO [facility] Specialty Core/Prot/Endo [address] [facility] [address], [address] * Beta 2 Glycoprotein 1 Antibody IgG (05/03/2023 1:03 PM CDT) Beta 2 Glycoprotein 1 Antibody IgG <0.8 <7.0 U/mL 05/04/2023 10:34 AM CDT UM SPECIALTY CORE/PROT/END O Comment:Negative Blood BLOOD SPECIMEN / Unknown Venipuncture / Unknown 05/03/2023 1:03 PM CDT 05/03/2023 1:03 PM CDT Oleg Aparicio PA-C LAB - BLOOD ORDERABL ES UM SPECIALTY CORE/PROT/ENDO UM Specialty Core/Prot/Endo [address] [facility] [address] [facility], Room [address] * Cardiolipin Angie IgG and IgM [...] UM SPECIALTY CORE/PROT/ENDO UM Specialty Core/Prot/Endo [address] [facility] [address], Room [address] * (ABNORMAL) Lupus Anticoagulant Panel (05/03/2023 [...] of an antiphospholipid syndrome, recommend anticardiolipin and fvty-6-nmukokwesuk n (IgG and IgM) antibody tests. Recommend [...] UM SPECIAL COAGULATION [facility] Special Coagulation [address], [address] [place] [address], [facility] * Low Molecular Weight Heparin Anti Xa [...] - BLOOD ORDERABL ES Performing Organization Address [facility] Co de Phone Number [facility] LABORATORY [facility] Core Lab [address] [facility], [address] [place] [address] * Low Molecular Weight Heparin Anti Xa Level (04/28/2023 2:27 PM LINEN ROOM CUSTODIAN) Anti Xa Low Molecular Weight 0.42 For Reference Range, See Comment IU/mL 04/28/2023 2:53 PM LINEN ROOM CUSTODIAN UR LABORATORY Blood STRUCTURE OF RIGHT UPPER LIMB / Unknown Venipuncture / Unknown 04/28/2023 2:27 PM LINEN ROOM CUSTODIAN 04/28/2023 2:41 PM LINEN ROOM CUSTODIAN Narrative UR LABORATORY - 04/28/2023 2:53 PM LINEN ROOM CUSTODIAN If collected 4-6 hours after administration: Adults: If administered only once daily with a dose of 1.5 mg/k.0-2.0 IU/mL. If administered twice daily with a dose of 1 mg/k.50-1.0 IU/mL. Pediatrics: If administered twice daily: 0.50-1.0 IU/mL. Oleg Aparicio PA-C LAB - BLOOD ORDERABL ES UR LABORATORY [facility] Acute Care Lab [address] [facility], [address] [place] [address] [phone] documented in this encounter Visit Diagnoses Diagnosis Pulmonary embolism affecting in second trimester- Primary Family history of blood clots Family history of other blood disorders documented in this encounter Care Teams Auto Research Engineer Relationship Specialty Start Date End Date No Ref-Primary, Physician PCP - General 03/31/23 documented as of this encounter
--- OUTSIDE RECORDS SUMMARY | 2023-06-23 10:14 | XMS_ITS | Encounter Summary ---
Author Name Unknown Organization [place] Address [address] [facility] [place] [address] Care Team Providers Care Lab Tech Name Role Phone No Ref-Primary, Physician Primary Care Provider Oleg Aparicio PA-C Unavailable [phone] Ana Oreilly MD Unavailable [phone] Reason for Referral * Diagnostic Imaging Ultrasound (Routine) - Pending Review Specialty Diagnoses / Procedures Referred By Diana t Referred To Contact Radiology. Diagnoses related condition, antepartum Procedures [facility] US Comprehensive Single F/U Ori Adame MD [address] [place] [address] Referral ID Status Reason Start Date Expiration Date V isits Requested Visits Authorized [id number] Pending Review 05/10/2023 05/09/2024 1 1 Reason for Visit * Reason Comments Ultrasound RL2/TV- Subopt anato my, hx PTD Encounter Details Date Type Department Care Team (Late st Contact Info) Description 05/10/2023 10:00 AM CDT Office Visit [facility] [place] [address] [facility] [address] [place] [phone] Ori Adame MD [address] [place] [address] Encounter for follow-up ultrasound of [...] for details of today's US at the [facility]. Ori Adame MD Maternal- Medicine documented in this encounter Nursing Notes * Alma Soriano RN - 05/10/2023 10:00 AM CDT Patient reports positive movement, denies pain, denies contractions/pre- term labor, leaking of fluid, or bleeding. Patient denies headache, visual changes, nausea/vomiting, epigastric pain related to preeclampsia. Education provided to patient on RL2/TV. SBAR given to [facility] MD, see their note in Epic. Alma Soriano RN documented in this encounter Plan of Treatment Upcoming Encounters Date Type Department Care Team (Late st Contact Info) Description 07/04/2023 2:30 PM CDT Office Visit [facility] [address] [facility] [address] [place] [phone] Oleg Aparicio PA-C [address] [place] [address] documented as of this encounter Results * [facility] Comprehensive Single F/U (05/31/2023 11:40 [...] ? Study Date: ??05/31/2023 10:49am Pat. NO: ??[id number] ?Referring ??: TRISTA MELLO Site: ??[facility] ? Flash Drier Operator: Chanda Lazo RDMS : ??1995 ?Age: ?? [...] lb 13 ? oz EFW by ?Hadlock ([id number]) Head / Face / Neck Biometry: Reviewer Sales ? 5.7 ? mm CM ?7.7 ? mm ANATOMY ----- The following structures appear normal: Head / Neck ? Cranium. Head size. Head shape. Lateral ventricles. Midline falx. Cavum septi pellucidi. Cerebellum. Cisterna magna. Thalami. Heart / Thorax ?4-chamber view. RVOT view. LVOT view. 1-bkmbbd-xjjrnvn view. ? Diaphragm. Abdomen ? Stomach. Kidneys. [...] [place] Study Date: 05/31/2023 10:49am Pat. NO: [id number] Referring MD: TRISTA MELLO Site: [facility] Flash Drier Operator: Chanda Lazo RDMS : 1995 Age: 28 [...] 1 lb 13 oz EFW by Hadlock ([id number]) Head / Face / Neck Biometry: Reviewer Sales 5.7 mm CM 7.7 mm ANATOMY ----- The following structures appear normal: Head / Neck Cranium. Head size. Head shape.Lateral ventricles. Midline falx. Cavum septi pellucidi. Cerebellum.Cisterna magna. Thalami. Heart / Thorax 4-chamber view. RVOT view. LVOT view.7-qxsluk-wgqywqg view. Diaphragm. Abdomen Stomach. Kidneys. Bladder. Spine [...] fluid volume appeared normal. Ori Adame MD [facility] US ORDERABL ES documented in this encounter Visit Diagnoses Diagnosis Encounter for follow-up ultrasound of anatomy- Primary History of delivery, currently with history of pre-term labor Encounter for ultrasound to assess growth Encounter for ultrasound to assess growth documented in this encounter Care Teams Lab Tech Relationship Specialty Start Date End Date No Ref-Primary, Physician PCP - General 03/31/23 Oleg Aparicio, PABrightC [facility] [address] [place], [place] [address] Assigned Cancer Care Provider 05/06/23 Ana Oreilly MD [address] [place] [address] [address] [place], [place] [address] Assigned OBGYN Provider 05/06/23 documented as of this encounter
--- OUTSIDE RECORDS SUMMARY | 2023-06-23 10:14 | XMS_ITS | Encounter Summary ---
Author Name Unknown Organization [place] Address [address] [facility] [place] [address] Care Team Providers Care Metal Reclamation Kettle Tender Name Role Phone No Ref-Primary, Physician Primary Care Provider Oleg Aparicio PA-C Unavailable [phone] Ana Oreilly MD Unavailable [phone] Encounter Details Date Type Department Care [...] for Bleeding and Clotting Disorders [address] [place] [phone] Oleg Aparicio PA-C [address] [place], [place] [address] documented as of this encounter Visit Diagnoses Not on filedocumented in this encounter Care Teams Metal Reclamation Kettle Tender Relationship Specialty Start Date End Date No Ref-Primary, Physician PCP - General 03/31/23 Oleg Aparicio PA-C [address] [place], [place] [address] Assigned Cancer Care Provider 05/06/23 Ana Oreilly MD [address] [place], [place] [address] Assigned OBGYN Provider 05/06/23 documented as of this encounter
--- OUTSIDE RECORDS SUMMARY | 2023-06-23 10:14 | XMS_ITS | Encounter Summary ---
Author Name Unknown Organization [place] Address [facility] [place] [address] Care Team Providers Care Center Medical Director Name Role Phone No Ref-Primary, Physician Primary Care Provider Oleg Aparicio PA-C Unavailable [phone] Ana Oreilly MD Unavailable [phone] Encounter Details Date Type Department Care Team (Late st Contact Info) Description 06/22/2023 [facility] [place] [facility] Ble[facility] Clotting [facility] [address] [place] [address] Oleg Aparicio PA-C [address] [place] [address] 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 Tobacco Use Types Packs/Day Years [...] encounter Miscellaneous Notes * Telephone Encounter - Sandie White RN - 06/22/2023 1:27 PM CDT RN assisted patient in scheduling 2 PM lab visit today to check low molecular weight heparin anti-Xa level. She took Lovenox at 8:56 AM. She needs to slat pickler refills but wants to make sure she is on the correct dose as she recently started her third trimester. Patient verbalized understanding and will go to lab. Sandie White RN, BSN, PCCN Nurse Clinician [facility] [address] [place] [address] [address] [address] Office, direct: [phone] Main office number: [phone] Pronouns: She, her, hers documented in this encounter Plan of Treatment Upcoming Encounters Date Type Department Care Team (Late st Contact Info) Description 07/04/2023 2:30 PM CDT Office Visit [facility] for [facility] [address] [place] [phone] Oleg Aparicio PA-C [address] [place] [id number] documented as of this encounter Visit Diagnoses Not on filedocumented in this encounter Care Teams Center Medical Director Relationship Specialty Start Date End Date No Ref-Primary, Physician PCP - General 03/31/23 Oleg Aparicio PA-C [address] [place] [address] Assigned Cancer Care Provider 05/06/23 Ana Oreilly MD [address] [address] [place], [place] [phone] Assigned OBGYN Provider 05/06/23 documented as of this encounter
--- OUTSIDE RECORDS SUMMARY | 2023-06-23 10:14 | XMS_ITS | Encounter Summary ---
Author Name Unknown Organization [place] Address [address] [facility] [place] [address] Care Team Providers Care Metal Riveting Machine Operator Name Role Phone No Ref-Primary, Physician Primary Care Provider Oleg Aparicio PA-C Unavailable [phone] Ana Oreilly MD Unavailable [phone] Encounter Details Date Type Department Care Team (Late st Contact Info) Description 06/22/2023 2:[address] [facility] [address] [place] [address] Pulmonary embolism affecting in second trimester 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 Tobacco Use Types Packs/Day Years [...] Clotting Disorders [address] [place] [phone] Oleg Aparicio PA-C [address] [place], [place] [phone] documented as of this encounter Procedures Procedure Name Priority Date/Time Associated Diagnosis Comments LOW MOLECULAR WEIGHT HEPARIN ANTI XA LEVEL Routine 06/22/2023 1:58 PM CDT Pulmonary embolism affecting in second trimester documented in this encounter Results * Low Molecular Weight Heparin Anti Xa Level (06/22/2023 1:58 PM CDT) Anti Xa Low Molecular Weight 0.58 For [...] [facility] Core Lab [address] [facility], [address] [phone] documented in this encounter Visit Diagnoses Diagnosis Pulmonary embolism affecting in second trimester documented in this encounter Care Teams Metal Riveting Machine Operator Relationship Specialty Start Date End Date No Ref-Primary, Physician PCP - General 03/31/23 Oleg Aparicio PA-C [address] [place], [place] [address] Assigned Cancer Care Provider 05/06/23 Ana Oreilly MD [address] [place], [place] [address] Assigned OBGYN Provider 05/06/23 documented as of this encounter
--- OUTSIDE RECORDS SUMMARY | 2023-06-23 10:14 | XMS_ITS | Encounter Summary ---
Author Name Unknown Organization [place] Address [address] [facility] [place] [address] Care Team Providers Care Smasher Hand Name Role Phone No Ref-Primary, Physician Primary [...] for Bleeding and Clotting Disorders [address] [place] [phone] Oleg Aparicio PA-C [address] [place] [address] documented as of this encounter Visit Diagnoses Not on filedocumented in this encounter Care Teams Smasher Hand Relationship Specialty Start Date End Date No Ref-Primary, Physician PCP - General 03/31/23 documented as of this encounter
--- OUTSIDE RECORDS SUMMARY | 2023-06-23 10:14 | XMS_ITS | Encounter Summary ---
Author Name Unknown Organization [place] Address [address] [facility] [place] [address] Care Team Providers Care Industrial Chemicals Supervisor Name Role Phone No Ref-Primary, Physician Primary Care Provider Oleg Aparicio PA-C Unavailable [phone] Ana Oreilly MD Unavailable [phone] Encounter Details Date Type Department Care [...] Description 07/04/2023 2:30 PM CDT Office Visit [facility] for Bleeding and Clotting Disorders [address] [place] [phone] Oleg Aparicio PA-C [address] [place], [place] [address] documented as of this encounter Visit Diagnoses Not on filedocumented in this encounter Care Teams Industrial Chemicals Supervisor Relationship Specialty Start Date End Date No Ref-Primary, Physician PCP - General 03/31/23 Oleg Aparicio PA-C [address] [place], [place] [phone] Assigned Cancer Care Provider 05/06/23 Ana Oreilly MD [address] [place], [place] [address] Assigned OBGYN Provider 05/06/23 documented as of this encounter
--- OUTSIDE RECORDS SUMMARY | 2023-06-23 10:14 | XMS_ITS | Referral Summary ---
Author Name Unknown Organization [place] Address [address] [facility] [place] [address] Care Team Providers Care Defense Travel Administrator Name Role Phone No Ref-Primary, Physician Primary Care Provider Oleg Aparicio PA-C Unavailable [phone] Ana Oreilly MD Unavailable [phone] Encounters Date Type Department Care Team Description 06/22/2023 2:00 PM CDT Lab [facility] [address] [facility] [facility] [address] [place] [address] Pulmonary embolism affecting in second trimester 06/22/2023 MyC Medical Advice [facility] for Bleeding [facility] Clotting Disorders [address] [place] [address] Oleg Aparicio PA-C 06/21/2023 Travel 06/21/2023 10:00 AM CDT Office Visit [facility] [address] [place] [address] Ori Adame MD Encounter for ultrasound to check growth (Primary Dx) 06/21/2023 9:30 AM CDT - 06/21/2023 11:59 PM CDT Hospital Encounter [facility] [address] [place] [address] Ori Adame MD Encounter for ultrasound to check growth Discharge Disposition: Home or Self Care 05/31/2023 Travel 05/31/2023 11:30 AM CDT Office Visit [facility] [address] [facility] [address] [place] [phone] Ori Adame MD Encounter for ultrasound to check growth (Primary Dx) 05/31/2023 10:45 AM CDT - 05/31/2023 11:59 PM CDT Hospital Encounter [facility] [place] [address] [facility] [address] [place] [phone] Ori Adame MD Encounter for ultrasound to assess growth Discharge Disposition: Home or Self Care 05/10/2023 Travel 05/10/2023 10:00 AM CDT Office Visit [facility] [place] [address] [place] [phone] Ori Adame MD Encounter for follow-up ultrasound of anatomy (Primary Dx); History of delivery, currently ; Encounter for ultrasound to assess growth 05/10/2023 9:28 AM CDT - 05/10/2023 11:59 PM CDT Hospital Encounter [place] [address] [place] [phone] Ori Adame MD Pulmonary embolism affecting in second trimester Discharge Disposition: Home or Self Care 05/03/2023 1:00 PM CDT Lab [facility] [address] [place] [phone] Pulmonary embolism affecting in second trimester; Family history of blood clots 04/28/2023 MyC Medical Advice [facility] for Ble[facility] Disorders [address] [facility] [address] [place] [phone] Carmen Pollack RN 04/28/2023 Telephone [facility] [address] [facility] [address] [place] [phone] Oleg Aparicio PA-C 04/28/2023 Travel 04/28/2023 1:30 PM ORTHOTIST Office Visit [facility] [address] [place] [address] Ana Oreilly MD Chan, Ricky Y, PA-C Pulmonary embolism affecting in second trimester (Primary Dx); Family history of blood clots 04/27/2023 Travel 04/12/2023 Travel 04/12/2023 9:11 AM ORTHOTIST - 04/12/2023 11:59 PM ORTHOTIST Hospital Encounter [facility] [place] [address] [place] [phone] Ana Oreilly MD Pulmonary embolism affecting in second trimester; History of delivery, currently Discharge Disposition: Home or Self Care 04/12/2023 10:15 AM ORTHOTIST Office Visit [facility] [place] [address] [place] [address] Ana Oreilly MD Pulmonary embolism affecting in second trimester (Primary Dx); History of delivery, currently from Last 3 Months Allergies No known [...] 36.7 ??C (98 ??F) 04/28/2023 1:25 PM ORTHOTIST Respiratory Rate 20 04/12/2023 10:58 AM ORTHOTIST Oxygen Saturation 99% 05/31/2023 11:07 AM CDT Inhaled Oxygen Concentration - - Weight 68.9 kg (152 lb) 04/28/2023 1:25 PM ORTHOTIST Height 170.2 cm (5' 7) 04/28/2023 1:25 PM ORTHOTIST Body Mass Index 23.81 04/28/2023 1:25 PM ORTHOTIST Plan of Treatment Upcoming Encounters Date Type Department Care Team (Late st Contact Info) Description 07/04/2023 2:30 PM CDT Office Visit [facility] for [facility] Disorders [address] [facility] [address] [place] [phone] Oleg Aparicio PA-C [address] [place] [address] Procedures Procedure Name Priority Date/Time Associated Diagnosis Comments LOW MOLECULAR WEIGHT HEPARIN ANTI XA LEVEL Routine 06/22/2023 1:58 PM CDT Pulmonary embolism affecting in second trimester [facility] US COMPREHENSIVE SINGLE F/U Routine 06/21/2023 10:50 AM CDT Encounter for ultrasound to check growth [facility] US COMPREHENSIVE SINGLE F/U Routine 05/31/2023 11:40 AM CDT Encounter for ultrasound to assess growth [facility] US COMPREHENSIVE SINGLE F/U Routine 05/10/2023 10:08 [...] ANTI XA LEVEL Routine 04/28/2023 2:27 PM ORTHOTIST Pulmonary embolism affecting in second trimester [facility] US COMPREHENSIVE SINGLE Routine 04/12/2023 10:26 AM ORTHOTIST Pulmonary embolism affecting in second trimester History [...] LAB - BLOOD ORDERABL ES [facility] LABORATORY [facility] Core Lab [address] [facility], [address] [phone] * [facility] Comprehensive Single F/U (06/21/2023 10:50 AM CDT) [...] ? Study Date: ??06/21/2023 9:50am Pat. NO: ??[id number] ?Referring ??MD: TRISTA MELLO Site: ??[place] ? Cover Making Machine Operator: Chanda Lazo RDMS : ??1995 ?Age: [...] Biometry: BPD ?72.6 ?mm ? 29w 1d ?George LUI ?95.1 ?mm ? 28w 0d ?Nicolaides HC ?267.0 ?mm ?29w 1d ?Hadlock Cerebellum tr ?35.5 ? mm ?30w 4d ?Nicolaides AC ?238.2 ?mm ?28w 1d ?14% ?Hadlock Femur ?55.3 ? mm ?29w 1d ?Hadlock Humerus ?49.1 ?mm ? 28w 6d ?Jojo Weight Calculation: EFW ? 1,258 ?g ? 18% ?Hadlock EFW (lb,oz) ? 2 lb 12 ?oz EFW by ?Hadlock ([id number]) Head / Face / Neck Biometry: Poly Packer And Heat Sealer ? 4.9 ? mm CM ?5.5 ? mm ANATOMY ----- The following structures appear normal: Head / Neck ? Cranium. Head size. Head shape. Lateral ventricles. Midline falx. Cerebellum. Cisterna magna. Thalami. Face ? Lips. Profile. Nose. Heart / Thorax ?4-chamber view. RVOT view. LVOT view. 2-wfsyhd-liifofw view. ? Diaphragm. Abdomen ? Stomach. Kidneys. [...] [place] Study Date: 06/21/2023 9:50am Pat. NO: [id number] Referring MD: TRISTA MELLO Site: [facility] Cover Making Machine Operator: Chanda Lazo RDMS : 1995 Age: [...] (lb,oz) 2 lb 12 oz EFW by George ([id number]) Head / Face / Neck Biometry: Poly Packer And Heat Sealer 4.9 mm CM 5.5 mm ANATOMY ----- The following structures appear normal: Head / Neck Cranium. Head size. Head shape.Lateral ventricles. Midline falx. Cerebellum. Cisterna magna. Thalami. Face Lips. Profile. Nose. Heart / Thorax 4-chamber view. RVOT view. LVOT view.0-jhcufn-evotqje view. Diaphragm. Abdomen Stomach. Kidneys. Bladder. Spine [...] fluid volume appeared normal. Ori Adame MD [facility] US ORDERABL ES * Cardiolipin Makenzie IgG [...] ES [facility] SPECIALTY CORE/PROT/ENDO Specialty Core/Prot/Endo [address] [facility], [address] * Beta 2 Glycoprotein 1 Antibody IgM (05/03/2023 1:03 PM CDT) Beta 2 Glycoprotein 1 Antibody IgM <2.4 <7.0 U/mL 05/04/2023 10:34 AM CDT UM SPECIALTY CORE/PROT/END O Comment:Negative Blood BLOOD SPECIMEN / Unknown Venipuncture / Unknown 05/03/2023 1:03 PM CDT 05/03/2023 1:03 PM CDT Oleg Aparicio PA-C LAB - BLOOD ORDERABL ES [facility] SPECIALTY CORE/PROT/ENDO Specialty Core/Prot/Endo [address] [facility], [address] * Beta 2 Glycoprotein 1 Antibody IgG (05/03/2023 1:03 PM CDT) Beta 2 Glycoprotein 1 Antibody IgG <0.8 <7.0 U/mL 05/04/2023 10:34 AM CDT SPECIALTY CORE/PROT/END O Comment:Negative Blood BLOOD SPECIMEN / Unknown Venipuncture / Unknown 05/03/2023 1:03 PM CDT 05/03/2023 1:03 PM CDT Oleg Aparicio PA-C LAB - BLOOD ORDERABL ES [facility] SPECIALTY CORE/PROT/ENDO Specialty Core/Prot/Endo [address] [facility], [address] * (ABNORMAL) Lupus Anticoagulant Panel (05/03/2023 1:03 PM CDT) INR 1.02 0.85 - 1.15 2:25 PM CDT SPECIAL COAGULATION Thrombin Time 19.7(H) 13.0 - [...] of an antiphospholipid syndrome, recommend anticardiolipin and dujd-5-hgisqbpvwbp n (IgG and IgM) antibody tests. Recommend [...] UM SPECIAL COAGULATION UM Special Coagulation [address] [facility] [address] [facility], [address] [place] [address], [facility] * [facility] US Comprehensive Single (04/12/2023 10:26 AM ORTHOTIST) Anatomical Region Laterality Modality Ultrasound 04/12/2023 9:24 AM ORTHOTIST Impressions 04/12/2023 3:24 PM ORTHOTIST IMPRESSION ----- 1. Barnett intrauterine at 19w [...] long and closed. Narrative 04/12/2023 3:24 PM ORTHOTIST ?Comprehensive ----- Pat. Name: GABRIELLE [place] ? Study Date: ??04/12/2023 9:24am Pat. NO: ??[id number] ?Referring ??MD: TRISTA MELLO Site: ??[facility] ? Cover Making Machine Operator: Edda Ayala RDMS : ??1995 ?Age: ?? [...] 0 lb 9 ?oz EFW by ?Hadlock ([id number]) Head / Face / Neck Biometry: Poly Packer And Heat Sealer ? 6.4 ? mm CM ?1.7 ? [...] cava. Inferior vena cava. 3-vessel ? view. 9-pjuriw-tlaqqik view. Cardiac position. Cardiac size. Cardiac rhythm. [...] referring your patient for M consult & ultrasound assessment. I discussed the [...] [place] Study Date: 04/12/2023 9:24am Pat. NO: [id number] Referring MD: TRISTA MELLO Site: [facility] Cover Making Machine Operator: Edda Ayala RDMS : 1995 Age: 27 [...] 0 lb 9 oz EFW by Hadlock ([id number]) Head / Face / Neck Biometry: Poly Packer And Heat Sealer 6.4 mm CM 1.7 mm Nasal bone [...] Superior venacava. Inferior vena cava. 3-vessel view. 9-ksgvsk-ievmepb view.Cardiac position. Cardiac size. Cardiac rhythm. Right [...] ----- Thank-you for referring your patient for [facility] consult & ultrasoundassessment. I discussed the findings [...] appears long and closed. Ori Adame MD IMG [facility] US ORDERABL ES * PAP SMEAR (07/16/1998 1:18 PM CDT) Unlabelled DNR [facility] Biopsy Sent DNR [facility] Source VAG,CERV,E NDOCERV [facility] LMP POST [facility] PARA 3 [facility] 2 [facility] Clinical History DNR [facility] Therapy DNR [facility] Last Pap Diagnosis WITHIN NORMAL LIMITS [facility] PAP Date [id number] [facility] Specimen # DNR [facility] Tissue [facility]NR [facility] Tissue Date DNR [facility] Statement of Adequacy [facility] Comment: SATISFACTORY FOR INTERPRETATION POST MENOPAUSAL PATIENT. ??NO ENDOCERVICAL CELLS SEEN. General Categorization DNR [facility] Descriptive Diagnosis [facility] Comment: WITHIN NORMAL LIMITS ATROPHIC CELL PATTERN Recommendations DNR [facility] DNR 114,,,,,, [facility] DNR DNR [facility] DNR DNR [facility] DNR DNR [facility] . [facility] Comment: ?PAP SMEARS ARE SUBJECT TO BOTH FALSE NEGATIVE AND FALSE ? POSITIVE RESULTS EVIDENCED BY DATA PUBLISHED IN THE ? MEDICAL LITERATURE. ??YOUR PATIENT'S RESULT SHOULD BE ? INTERPRETED IN THIS CONTEXT, TOGETHER WITH THE PATIENT'S ? HISTORY AND CLINICAL FINDINGS. TESTING LOCATION ? THIS TEST WAS PERFORMED AT [facility] ? [address] [facility]. [address] ? PHONE NUMBERS FOR CYTOLOGY INQUIRES, INCLUDING SLIDE REQUESTS ? EXT. [id number] ?? EXT. [id number] 07/14/1998 Melony Hernandez MD LABORATORY [facility] from Last 3 Months or Most Recently Relevant to Health Maintenance Care Teams Defense Travel Administrator Relationship Specialty Start Date End Date No Ref-Primary, Physician PCP - General 03/31/23 Oleg Aparicio PA-C [address] [place] [address] Assigned Cancer Care Provider 05/06/23 Ana Oreilly MD [address] [facility] [address] [place] [address] Assigned OBGYN Provider 05/06/23
--- OUTSIDE RECORDS SUMMARY | 2023-06-23 10:15 | XMS_ITS | Encounter Summary ---
Author Name Unknown Organization [facility] Address [address] [facility] [place] [address] Care Team Providers Care Coding Spec Name Role Phone No Ref-Primary, Physician Primary Care Provider Reason for Referral * Diagnostic Imaging Ultrasound (Routine) - Pending Review Specialty Diagnoses / Procedures Referred By Contac t Referred To Contact Radiology. Diagnoses Pulmonary embolism affecting in second trimester Procedures [facility] US Comprehensive Single F/U Ana Oreilly MD [address] [place] [address] Referral ID Status Reason Start Date Expiration Date V isits Requested Visits Authorized [id number] Pending Review 04/12/2023 04/11/2024 1 1 DEVELOPMENT MANAGER * Consultation (Priority: 1-2 Weeks) - Pending Review Specialty Diagnoses / Procedures Referred By Contsandy t Referred To Contact Medical Oncology Diagnoses Pulmonary embolism affecting in second trimester Ana Oreilly MD [address] [place] [address] Referral ID Status Reason Start Date Expiration Date V isits Requested Visits Authorized [id number] Pending Review 04/12/2023 04/11/2024 1 1 Question Answer My Clinical Question Is: Pt is and had bilateral PE 03/08 in [facility] Pt is on Lovenox 60 mg BID. Pt needs clotting work up and Lovenox mgt If you have additional clinical questions which require a provider discussion, please call [phone]. Ask for the Chemo only medicine physician. Reason for Referral: Bleeding and Clotting Scheduling Instructions: [facility] will call you to coordinate your care as prescribed by the provider. If you don? t hear from a phlebotomy services representative within 2 business days, please call Comments Please be aware that coverage of these services is subject to the terms and limitations of your health insurance plan. Call member services at your health plan with any benefit or coverage questions. [facility] will call you to coordinate your care as prescribed by the provider. If you don? t hear from a phlebotomy services representative within 2 business days, please call DEVELOPMENT MANAGER Reason for Visit * Reason Comments Ultrasound L2/TV - hx bilateral PE (this ), hx PROM Consult L2- hx bilateral PE (this ), hx PROM * Consultation (Routine: Next available opening) - Pending Review Specialty Diagnoses / Procedures Referred By Contac t Referred To Contact Diagnoses Pulmonary embolism affecting in second trimester History of delivery, currently Ori Adame MD [address] [place] [address] Referral ID Status Reason Start Date Expiration Date V isits Requested Visits Authorized [id number] Pending Review 03/10/2023 03/09/2024 1 1 Encounter Details Date Type Department Care Team (Late st Contact Info) Description 04/12/2023 10:15 AM ICT DEVELOPMENT MANAGER Office Visit [facility] Maternal Medicine Center [place] [address] [place] [address] Ana Oreilly MD [address] [place], [place] [id number] Pulmonary embolism affecting in second trimester (Primary [...] - Respiratory Rate 20 04/12/2023 10:58 AM ICT DEVELOPMENT MANAGER Oxygen Saturation 97% 04/12/2023 10:58 AM ICT DEVELOPMENT MANAGER room air Inhaled Oxygen Concentration - - Weight 65.9 kg (145 lb 4.8 oz) 04/12/2023 10:58 AM ICT DEVELOPMENT MANAGER Height 170.2 cm (5' 7) 04/12/2023 10:58 AM ICT DEVELOPMENT MANAGER Body Mass Index 22.76 04/12/2023 10:58 AM ICT DEVELOPMENT MANAGER documented in this encounter Progress Notes * Ama Yadav MD - 04/12/2023 10:15 AM CST Images from the original note were not included. Maternal- Medicine Consultation Gabrielle Cleveland : 1995 Rerferral: Gabrielle Cleveland is a 27 year old sent by Dr. Tolentino from [facility] for MFM consultation. HPI Gabrielle Cleveland is [...] this has been with Dr. Tolentino from [facility]. OB History Para Term AB Living 2 [...] anti-Xa level, which will be coordinated at [facility], but is also ordered standing in the [facility] system if she is unable to obtain [...] patient. Ama Yadav MD Maternal Medicine Fellow [facility] Attending Attestation I have seen and [...] medical record, and communicating with other health rn homecare and/or care coordination.Please see her note for specific details; I have made the necessary edits/additions. The patient was also seen for an ultrasound in the Maternal- Medicine Center at the [facility] today. For a detailed report of the ultrasound examination, please see the ultrasound report which can be found under the imaging tab. Ana Oreilly MD Maternal Medicine Physician DEVELOPMENT MANAGER documented in this encounter Nursing Notes * Elaina Cano RN - 04/12/2023 10:15 AM CST Pt here for L2/consult d/t hx of PE in this . Pt notes intermittent right sided focal sharp pain/tenderness at fold recently. Questions whether this is related to cyst noted on prior ultrasound. Report given to paginator prior to scanning. Pt also recalls history of PPROM as spontaneous rupture at home at approximately 36 wks, no signs of labor other than vague feeling of something being off night prior. occurred within 2 hours of rupture. Added TV to ultrasound per protocol. Gabrielle was seen in [facility] Clinic today for Comp and MFM consult due to h/o PE in this . Pt has not followed up on any labs and hasn't met with hematology yet. . Dr. Oreilly and Dr. Yadav into see patient. Pt to have XA level at [facility] tomorrow and this was communicated to RN at . Pt to have 2 week TV at [facility] and then F/U comp/TV in 4 weeks at [facility]. Pt also had heme consult placed for 1-2 weeks. Please see [facility] consult note for recommendations. Patient was discharged ambulatory and stable. DEVELOPMENT MANAGER documented in this encounter Plan of Treatment Upcoming Encounters Date Type Department Care Team (Late st Contact Info) Description 07/04/2023 2:30 PM CDT Office Visit [facility] for Bleeding and Clotting Disorders [address] [place] [phone] Oleg Aparicio PA-C [address] [place] [address] Scheduled Orders Name Type Priority Associated Diagnoses Orde r Schedule Low Molecular Weight Heparin Anti Xa Level Lab Routine Pulmonary embolism affecting in second trimester 1 Occurrences starting 04/12/2023 until 04/12/2024 Scheduled Referrals Name Type Priority Associated Diagnoses Orde r Schedule Adult Oncology/Hematology Bottom Loader Referral Referral Priority: 1-2 Weeks Pulmonary embolism affecting in second trimester Expected: 04/12/2023 (Approximate), Expires: 04/12/2024 documented as of this encounter Results * [facility] US Comprehensive Single F/U (05/10/2023 10:08 AM [...] ? Study Date: ??05/10/2023 9:30am Pat. NO: ??[id number] ?Referring ??MD: TRISTA MELLO Site: ??[facility] ? Claims Technician: Yamel Hill RDMS : ??1995 ?Age: ?? [...] Biometry: BPD ?52.8 ?mm ? 22w 0d ?Haddaina OFD ?69.7 ?mm ? 21w 5d ?Nicolaides HC ?196.7 ?mm ?21w 6d ?Hadlock Cerebellum tr ?24.3 ? mm ?22w 2d ?Nicolaides AC ?175.5 ?mm ?22w 3d ?18% ?Hadlock Femur ?40.0 ? mm ?22w 6d ?Hadlock Weight Calculation: EFW ? 514 ? g ? 15% ?Hadlock EFW (lb,oz) ? 1 lb 2 ?oz EFW by ?Hadlock ([id number]) Head / Face / Neck Biometry: Detonator Maker ? 6.2 ? mm CM ?3.8 ? mm Nasal bone ? 7.0 ? mm ANATOMY ----- The following structures appear normal: Head / Neck ? Cranium. Head size. Head shape. Lateral ventricles. Midline falx. Cavum septi pellucidi. Cerebellum. Cisterna magna. Thalami. Face ? Lips. Profile. Nose. Maxilla. Mandible. Heart / Thorax ?4-chamber view. RVOT view. LVOT view. Situs. 7-tfbrgp-ftrzqxl view. ? Diaphragm. Abdomen ? Stomach. Kidneys. [...] [place] Study Date: 05/10/2023 9:30am Pat. NO: [id number] Referring MD: TRISTA MELLO Site: [facility] Claims Technician: Yamel Hill RDMS : 1995 Age: 27 [...] 1 lb 2 oz EFW by Hadlock ([id number]) Head / Face / Neck Biometry: Detonator Maker 6.2 mm CM 3.8 mm Nasal bone 7.0 mm ANATOMY ----- The following structures appear normal: Head / Neck Cranium. Head size. Head shape.Lateral ventricles. Midline falx. Cavum septi pellucidi. Cerebellum.Cisterna magna. Thalami. Face Lips. Profile. Nose. Maxilla.Mandible. Heart / Thorax 4-chamber view. RVOT view. LVOT view.Situs. 6-ptjezc-patkiux view. Diaphragm. Abdomen Stomach. Kidneys. Bladder. Spine [...] the 15%tile we will reassess growth at [facility] in 3weeks. Return to primary provider [...] length with no funneling. Ana Oreilly MD [facility] ORDERABLE S documented in this encounter Visit Diagnoses Diagnosis Pulmonary embolism affecting in second trimester- Primary History of delivery, currently with history of pre-term labor Pulmonary embolism affecting in second trimester documented in this encounter Care Teams Coding Spec Relationship Specialty Start Date End Date No Ref-Primary, Physician PCP - General 03/31/23 documented as of this encounter
--- OUTSIDE RECORDS SUMMARY | 2023-06-23 10:15 | XMS_ITS | Clinical Summary ---
Author Name Unknown Organization [employer] [facility] Address [place], [place] [address] Care Team Providers Care Blocker Polishing Name Role Phone Marybeth Andrew MD Primary [...] Procedure Name Priority Date/Time Associated Diagnosis Comments LUMBER TYING MACHINE OPERATOR THIN PREP PAP SCREEN IMAGED Routine 12/11/2020 2:40 PM CDT from Last 3 Months or Most Recently Relevant to Health Maintenance Results * LUMBER TYING MACHINE OPERATOR THIN PREP PAP SCREEN IMAGED (12/11/2020 2:40 PM CDT) Pathologist [facility] Case Report Gynecologic Cytology Report ? Case: [id number] ? Authorizing Provider: ??Elizabeth Philip ?Collected: ? 12/11/2020 1440 ? [place], ? Ordering Location: ? [facility] ?Received: ?12/15/2020 0858 ? First Screen: ?Baccam, Minie ? Specimen: ?LUMBER TYING MACHINE OPERATOR ThinPrep Vial Screening, Cervical/Vaginal ? 12/26/2020 2:03 PM CDT [facility] INTERPRETATION/ RESULT NEGATIVE FOR INTRAEPITHELIAL LESION OR MALIGNANCY (NIL) (none) 12/26/2020 2:03 PM CDT [facility] IMEN ADEQUACY Satisfactory for evaluation No endocervical component seen 12/26/2020 2:03 PM CDT [facility] HPV REQUEST HPV if ASCUS 12/26/2020 2:03 PM CDT [facility] Date of LMP 11/04/2020 12/26/2020 2:03 PM CDT [facility] Menstrual Status 12/26/2020 2:03 PM CDT [facility] Additional Information 12/26/2020 2:03 PM CDT [facility] Comment: Interpreted at [facility] - [address], [place] [address] Automated Review Successful 12/26/2020 2:03 PM CDT [facility] Comment:Specimen processed s uccessfully by automated plant pathologist device, ThinPrep Imaging System, [employer] Note The pap test is a [...] and malignant lesions. 12/26/2020 2:03 PM CDT [facility] Other (Cervical/Vagina l) 12/11/2020 2:40 PM CDT 12/15/2020 8:58 AM CDT Elizabeth Philip MD PATHOLOGY/ CYTOLOGY [facility] [address] [place] [address] [address] [place] [address], from Last 3 Months or Most Recently Relevant to Health Maintenance Care Teams Blocker Polishing Relationship Specialty Start Date End Date Marybeth Andrew MD [address] [place] [address] PCP - General Family Practice 08/20/22
--- OUTSIDE RECORDS SUMMARY | 2023-06-23 10:15 | XMS_ITS | Encounter Summary ---
Author Name Unknown Organization [facility] Address [address] [place] [address] Care Team Providers Care Fast Food Attendant Name Role Phone Unavailable Primary Care Provider Unavailabl e Reason for Visit * Reason Comments Ultrasound L2- Hx bilateral PE this Consult Hx bilateral PE this Encounter Details Date Type Department Care Team (Late Contact Info) Description 03/24/2023 PRE VISIT [facility] Maternal Medicine Center [place] [address] [place], [place] [address] Alma Soriano, RN Ultrasound (L2- Hx bilateral [...] Description 07/04/2023 2:30 PM CDT Office Visit [facility] for Bleeding and Clotting Disorders [address] [place] [phone] Oleg Aparicio PA-C [address] [place] [address] documented as of this encounter Visit Diagnoses Not on filedocumented in this encounter
--- OUTSIDE RECORDS SUMMARY | 2023-06-23 10:15 | XMS_ITS | Referral Summary ---
Author Name Unknown Organization [facility] Address [address] [place] [address] Care Team Providers Care Barrel Cutter Name Role Phone Elsewhere, Pcp Primary Care Provider Unavailabl e Source Comments Patient records contain information from all sites at [facility]. For routine questions regarding patient records, call [phone] during business hours, M-F 8:00 AM - 5:00 PM Central Time. Record requests for emergency care only can be directed to [phone] at any time.[facility] Allergies No known active allergies Medications Medication Sig Dispensed Refills Start Date End Date Status hblolau-Cp-ikro-FA (VINATE ONE) 60 mg iron-1 mg per [...] How often do you attend chur or zoroastrian services? More than 4 times per year 02/21/2022 Do you belong to any clubs o r organizations such as worship groups, unions, fraternal or athletic groups, or [...] place to sleep or slept in a alf (including now)? No 02/21/2022 Nutrition Answer Date [...] Sex Assigned at Female 02/21/2022 11:00 AM BUSINESS SUPPORT COORDINATOR Gender Identity Female 02/21/2022 11:00 AM BUSINESS SUPPORT COORDINATOR Sexual Orientation Straight 02/21/2022 11 :00 AM BUSINESS SUPPORT COORDINATOR Last Filed Vital Signs Vital Sign Reading Time Taken Comments Blood Pressure - - Pulse - - Temperature 36.6 ??C (97.9 ??F) 02/24/2022 12:[address] Respiratory Rate - - Oxygen Saturation - - Inhaled Oxygen Concentration - - Weight 72.4 kg (159 lb 9.8 oz) 02/24/2022 12:38 PM BUSINESS SUPPORT COORDINATOR Height 169.7 cm (5' 6.81) 02/24/2022 12:[address] Body Mass Index 25.14 02/24/2022 12:38 PM BUSINESS SUPPORT COORDINATOR Plan of Treatment Not on file Care Teams Barrel Cutter Relationship Specialty Start Date End Date Elsewhere, Pcp PCP - General Internal Medicine 02/24/22
--- OUTSIDE RECORDS SUMMARY | 2023-06-23 10:15 | XMS_ITS ---
Author Name Unknown Organization [facility] Address [address] [place] [address] Care Team Providers Care Accounts Payable Analyst Name Role Phone Unavailable Unavailable Unavailable Surgery Details Not on file Complications Check Surgery Details section. Procedure Estimated Blood Loss Check Surgery Details section. Procedure Findings Check Surgery Details section. Procedure Specimens Taken Check Surgery Details section.
--- OUTSIDE RECORDS SUMMARY | 2023-06-23 10:15 | XMS_ITS | Clinical Summary ---
Author Name Unknown Organization [facility] Address [address] [place] [address] Care Team Providers Care Senior Client Advisor Name Role Phone Elsewhere, Pcp Primary Care Provider Unavailabl e Source Comments Patient records contain information from all sites at [facility]. For routine questions regarding patient records, call [phone] during business hours, M-F 8:00 AM - 5:00 PM Central Time. Record requests for emergency care only can be directed to [phone] at any time.[facility] Allergies No known active allergies Medications Medication Sig Dispensed Refills Start Date End Date Status nenyxav-Yn-gybc-FA (VINATE ONE) 60 mg iron-1 mg per [...] week 02/21/2022 How often do you attend [facility] or buddhist services? More than 4 times per year 02/21/2022 Do you belong to any clubs o r organizations such as uatsdin groups, unions, fraternal or athletic groups, or [...] and heating? Not hard at all 02/21/2022 [facility] [place] of Occupat ional Health - Occupational Stress [...] place to sleep or slept in a long term (including now)? No 02/21/2022 Nutrition Answer Date [...] Sex Assigned at Female 02/21/2022 11:00 AM LAND MANAGEMENT SUPERVISOR Gender Identity Female 02/21/2022 11:00 AM LAND MANAGEMENT SUPERVISOR Sexual Orientation Straight 02/21/2022 11 :00 AM LAND MANAGEMENT SUPERVISOR Last Filed Vital Signs Vital Sign Reading Time Taken Comments Blood Pressure - - Pulse - - Temperature 36.6 ??C (97.9 ??F) 02/24/2022 12:[address] Respiratory Rate - - Oxygen Saturation - - Inhaled Oxygen Concentration - - Weight 72.4 kg (159 lb 9.8 oz) 02/24/2022 12:38 PM LAND MANAGEMENT SUPERVISOR Height 169.7 cm (5' 6.81) 02/24/2022 12:[address] Body Mass Index 25.14 02/24/2022 12:38 PM LAND MANAGEMENT SUPERVISOR Plan of Treatment Health Maintenance Due Date [...] age to complete this topic Care Teams Senior Client Advisor Relationship Specialty Start Date End Date Elsewhere, Pcp PCP - General Internal Medicine 02/24/22
== END 2023-06-23 10:12 | disposition home or self-care (01) ==
LOC: NFLDREF 10:12
PROVIDERS: PCP Family Medicine; Visit Provider Obstetrics & Gynecology
DX: M54.50 Low back pain, unspecified (principal)
CPT/HCPCS: 87086

== ENCOUNTER 2023-07-08 14:46 | Outpatient (CLI) | payer BC, SELFPAY ==
--- OUTSIDE RECORDS SUMMARY | 2023-07-08 14:49 | XMS_ITS | Clinical Summary ---
Author Name Unknown Organization [place] Address [address] [place] [address] Care Team Providers Care Life Skills Educator Name Role Phone No Ref-Primary, Physician Primary Care Provider Oleg Aparicio PA-C Unavailable [phone] Ana Oreilly MD Unavailable [phone] Allergies No known active allergies Medications [...] Encounters Date Type Department Care Team Description 07/04/2023 2:30 PM CDT Office Visit [facility] [address] [place] [address] Oleg Aparicio PA-C Pulmonary embolism affecting in second trimester (Primary Dx); Family history of blood clots; 31 weeks gestation of 07/04/2023 Travel 06/22/2023 2:00 PM CDT Lab [facility] [address] [place] [address] Pulmonary embolism affecting in second trimester 06/22/2023 MyC Medical Advice [facility] [address] [place] [address] Oleg Aparicio PA-C 06/21/2023 10:00 AM CDT Office Visit [facility] [place] [address] [place] [address] Ori Adame MD Encounter for ultrasound to check growth (Primary Dx) 06/21/2023 9:30 AM CDT - 06/21/2023 11:59 PM CDT Hospital Encounter [facility] [place] [address] [place] [address] Ori Adame MD Encounter for ultrasound to check growth Discharge Disposition: Home or Self Care 06/21/2023 Travel 05/31/2023 11:30 AM CDT Office Visit [facility] [address] [place] [address] Ori Adame MD Encounter for ultrasound to check growth (Primary Dx) 05/31/2023 10:45 AM CDT - 05/31/2023 11:59 PM CDT Hospital Encounter [facility] [address] [place] [address] Ori Adame MD Encounter for ultrasound to assess growth Discharge Disposition: Home or Self Care 05/31/2023 Travel 05/10/2023 10:00 AM CDT Office Visit [facility] [address] [facility] [address] [place] [address] Ori Adame MD Encounter for follow-up ultrasound of anatomy (Primary Dx); History of delivery, currently ; Encounter for ultrasound to assess growth 05/10/2023 9:28 AM CDT - 05/10/2023 11:59 PM CDT Hospital Encounter [facility] [address] [facility] [address] [place] [address] Ori Adame MD Pulmonary embolism affecting in second trimester Discharge Disposition: Home or Self Care 05/10/2023 Travel 05/03/2023 1:00 PM CDT Lab [facility] [address] [place] [phone] Pulmonary embolism affecting in second trimester; Family history of blood clots 04/28/2023 1:30 PM HIP HOP ARTIST Office Visit [facility] [place] [phone] Ana Oreilly MD Chan, Ricky Y, PA-C Pulmonary embolism affecting in second trimester (Primary Dx); Family history of blood clots 04/28/2023 MyC Medical Advice [facility] [address] [place] [phone] Carmen Pollack RN 04/28/2023 Telephone [facility] [address] [place] [phone] Oleg Aparicio PA-C 04/28/2023 Travel 04/27/2023 Travel 04/12/2023 10:15 AM HIP HOP ARTIST Office Visit [facility] [address] [place] [address] Ana Oreilly MD Pulmonary embolism affecting in second trimester (Primary Dx); History of delivery, currently 04/12/2023 9:11 AM HIP HOP ARTIST - 04/12/2023 11:59 PM HIP HOP ARTIST [facility] [place] [address] [place] [phone] Ana Oreilly MD Pulmonary embolism affecting in [...] Sign Reading Time Taken Comments Blood Pressure 106/68 07/04/2023 2:28 PM CDT Pulse 84 07/04/2023 2:28 PM CDT Temperature 36.8 ??C (98.2 ??F) 07/04/2023 2:28 PM CD T Respiratory Rate 20 04/12/2023 10:5 8 AM HIP HOP ARTIST Oxygen Saturation 97% 07/04/2023 2:28 PM CDT Inhaled Oxygen Concentration - - Weight 74.3 kg (163 lb 12.8 oz) 07/04/2023 2:28 PM CDT Height 170.2 cm (5' 7) 07/04/2023 2:28 PM CDT Body Mass Index 25.65 07/04/2023 2:28 PM CDT Plan of Treatment Health Maintenance Due Date [...] CDT Pulmonary embolism affecting in second trimester [facility] US COMPREHENSIVE SINGLE F/U Routine 06/21/2023 10:50 AM CDT Encounter for ultrasound to check growth [facility] COMPREHENSIVE SINGLE F/U Routine 05/31/2023 11:40 AM CDT Encounter for ultrasound to assess growth [facility] US COMPREHENSIVE SINGLE F/U Routine 05/10/2023 [...] ANTI XA LEVEL Routine 04/28/2023 2:27 PM HIP HOP ARTIST Pulmonary embolism affecting in second trimester [facility] COMPREHENSIVE SINGLE Routine 04/12/2023 10:26 AM HIP HOP ARTIST Pulmonary embolism affecting in second trimester History of delivery, currently from Last 3 Months Results * Low Molecular Weight Heparin Anti Xa Level (06/22/2023 1:58 PM CDT) Only the most recent of3 resultswithin the time period is included. [facility] Anti Xa Low Molecular Weight 0.58 For Reference Range, See Comment IU/mL 06/22/2023 9:38 PM CDT [facility] Blood BLOOD SPECIMEN / Unknown Venipuncture / Unknown 06/22/2023 1:58 PM CDT 06/22/2023 1:58 PM CDT [facility] - 06/22/2023 9:38 PM CDT If collected 4-6 hours after administration: Adults: If administered only once daily with a dose of 1.5 mg/k.0-2.0 IU/mL. If administered twice daily with a dose of 1 mg/k.50-1.0 IU/mL. Pediatrics: If administered twice daily: 0.50-1.0 IU/mL. Oleg Aparicio PA-C LAB - BLOOD ORDERABL ES LABORATORY [facility] [place] [facility] [address] [facility], [address] [place] [address], [facility] * [facility] Comprehensive Single F/U (06/21/2023 10:50 AM [...] ? Study Date: ??06/21/2023 9:50am Pat. NO: ??[id number] ?Referring ??: TRISTA MELLO Site: ??[facility] ? Orthopedically Impaired Teacher: Chanda Lazo RDMS : ??1995 ?Age: ?? [...] 2 lb 12 ?oz EFW by ?Hadlock ([id number]-FL) Head / Face / Neck Biometry: Rate Analyst ? 4.9 ? mm CM ?5.5 ? mm ANATOMY ----- The following structures appear normal: Head / Neck ? Cranium. Head size. Head shape. Lateral ventricles. Midline falx. Cerebellum. Cisterna magna. Thalami. Face ? Lips. Profile. Nose. Heart / Thorax ?4-chamber view. RVOT view. LVOT view. 0-lpzffk-vmyrwzb view. ? Diaphragm. Abdomen ? Stomach. Kidneys. [...] [place] Study Date: 06/21/2023 9:50am Pat. NO: [id number] Referring MD: TRISTA MELLO Site: [facility] Orthopedically Impaired Teacher: Chanda Lazo RDMS : 1995 Age: 28 ----- INDICATION ----- Reevaluate growth. METHOD ----- Transabdominal ultrasound examination. View: Sufficient ----- Barnett . Number of fetuses: 1 DATING ----- DateDetailsGest. age GAAL LMP w + 2 d 09/04/2023 Prior [...] 2 lb 12 oz EFW by Hadlock ([id number]-FL) Head / Face / Neck Biometry: Rate Analyst 4.9 mm CM 5.5 mm ANATOMY ----- The following structures appear normal: Head / Neck Cranium. Head size. Head shape.Lateral ventricles. Midline falx. Cerebellum. Cisterna magna. Thalami. Face Lips. Profile. Nose. Heart / Thorax 4-chamber view. RVOT view. LVOT view.1-nkztum-ltarhmt view. Diaphragm. Abdomen Stomach. Kidneys. Bladder. Spine [...] fluid volume appeared normal. Ori Adame MD [facility] US ORDERABL ES * Cardiolipin [...] UM SPECIALTY CORE/PROT/ENDO UM Specialty Core/Prot/Endo [address] [facility], [address] * Beta 2 Glycoprotein 1 Antibody IgM (05/03/2023 1:03 PM CDT) Beta 2 Glycoprotein 1 Antibody IgM <2.4 <7.0 U/mL 05/04/2023 10:34 AM CDT SPECIALTY CORE/PROT/END O Comment:Negative Blood BLOOD SPECIMEN / Unknown Venipuncture / Unknown 05/03/2023 1:03 PM CDT 05/03/2023 1:03 PM CDT Oleg OREILLY-C LAB - BLOOD ORDERABL ES UM SPECIALTY CORE/PROT/ENDO UM Specialty Core/Prot/Endo [address] [facility] [address] [facility], [address] [place] [address], [place] * Beta 2 Glycoprotein 1 Antibody IgG (05/03/2023 1:03 PM CDT) Beta 2 Glycoprotein 1 Antibody IgG <0.8 <7.0 U/mL 05/04/2023 10:34 AM CDT UM SPECIALTY CORE/PROT/END O Comment:Negative Blood BLOOD SPECIMEN / Unknown Venipuncture / Unknown 05/03/2023 1:03 PM CDT 05/03/2023 1:03 PM CDT Oleg Aparicio PA-C LAB - BLOOD ORDERABL ES UM SPECIALTY CORE/PROT/ENDO Specialty Core/Prot/Endo [address] [facility], [address] * (ABNORMAL) Lupus Anticoagulant Panel (05/03/2023 [...] of an antiphospholipid syndrome, recommend anticardiolipin and uafk-9-gcrotmmsxsu n (IgG and IgM) antibody tests. Recommend [...] ES SPECIAL COAGULATION UM Special Coagulation [address] [facility], [address] [place] [address], [facility] * [facility] Comprehensive Single (04/12/2023 10:26 AM HIP HOP ARTIST) Anatomical Region Laterality Modality Ultrasound 04/12/2023 9:24 AM HIP HOP ARTIST Impressions 04/12/2023 3:24 PM HIP HOP ARTIST IMPRESSION ----- 1. Barnett intrauterine at 19w [...] long and closed. Narrative 04/12/2023 3:24 PM HIP HOP ARTIST ?Comprehensive ----- Pat. Name: GABRIELLE [place] ? Study Date: ??04/12/2023 9:24am Pat. NO: ??[id number] ?Referring ??MD: TRISTA MELLO Site: ??[facility] ? Orthopedically Impaired Teacher: Edda Ayala RDMS : ??1995 ?Age: ?? [...] 0 lb 9 ?oz EFW by ?Hadlock ([id number]-FL) Head / Face / Neck Biometry: Rate Analyst ? 6.4 ? mm CM ?1.7 ? [...] cava. Inferior vena cava. 3-vessel ? view. 8-kftcyw-fabdxps view. Cardiac position. Cardiac size. Cardiac rhythm. [...] [place] Study Date: 04/12/2023 9:24am Pat. NO: [id number] Referring MD: TRISTA MELLO Site: [facility] Orthopedically Impaired Teacher: Edda Ayala RDMS : 1995 Age: 27 [...] 0 lb 9 oz EFW by Hadlock ([id number]-RK-FL) Head / Face / Neck Biometry: Rate Analyst 6.4 mm CM 1.7 mm Nasal bone [...] Superior venacava. Inferior vena cava. 3-vessel view. 0-lmntuf-uqtdyfv view.Cardiac position. Cardiac size. Cardiac rhythm. Right [...] ----- Thank-you for referring your patient for [facility] consult & ultrasoundassessment. I discussed the [...] appears long and closed. Ori Adame MD [facility] ORDERABL ES from Last 3 Months Care Teams Life Skills Educator Relationship Specialty Start Date End Date No Ref-Primary, Physician PCP - General 03/31/23 Oleg Aparicio, JULIAC [address] [place] [address] Assigned Cancer Care Provider 05/06/23 Ana Oreilly MD [address] [facility] [address] [place] [address] Assigned OBGYN Provider 05/06/23
--- OUTSIDE RECORDS SUMMARY | 2023-07-08 14:50 | XMS_ITS | Encounter Summary ---
Author Name Unknown Organization [place] Address [address] [facility] [place] [address] Care Team Providers Care Filter Worker Name Role Phone No Ref-Primary, Physician Primary Care Provider Oleg Aparicio PA-C Unavailable [phone] Ana Oreilly MD Unavailable [phone] Encounter Details Date Type Department Care Team (Latest Contact Info) Description 07/04/2023 Travel 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 Tobacco Use Types Packs/Day [...] as of this encounter Plan of Treatment Not on file documented as of this encounter Visit Diagnoses Not on filedocumented in this encounter Care Teams Filter Worker Relationship Specialty Start Date End Date No Ref-Primary, Physician PCP - General 03/31/23 Oleg Aparicio, PABrightC [address] [facility] [address] [place] [address] Assigned Cancer Care Provider 05/06/23 Ana Oreilly MD [address] [place] [address] Assigned OBGYN Provider 05/06/23 documented as of this encounter
--- OUTSIDE RECORDS SUMMARY | 2023-07-08 14:50 | XMS_ITS | Encounter Summary ---
Author Name Unknown Organization [place] Address [address] [facility] [place] [address] Care Team Providers Care Cell Biology Scientist Name Role Phone No Ref-Primary, Physician Primary Care Provider Oleg Aparicio PA-C Unavailable [phone] Ana Oreilly MD Unavailable [phone] Encounter Details Date Type Department Care [...] on filedocumented in this encounter Care Teams Cell Biology Scientist Relationship Specialty Start Date End Date No Ref-Primary, Physician PCP - General 03/31/23 Oleg Aparicio, PABrightC [address] [facility] [address] [place] [address] Assigned Cancer Care Provider 05/06/23 Ana Oreilly MD [address] [place] [address] Assigned OBGYN Provider 05/06/23 documented as of this encounter
--- OUTSIDE RECORDS SUMMARY | 2023-07-08 14:50 | XMS_ITS | Encounter Summary ---
Author Name Unknown Organization [place] Address [address] [place] [address]. [place] [address] Care Team Providers Care Jewelry Cutter Name Role Phone No Ref-Primary, Physician Primary Care Provider Oleg Aparicio PA-C Unavailable [phone] Ana Oreilly MD Unavailable [phone] Encounter Details Date Type Department Care Team (Late st Contact Info) Description 04/28/2023 [facility] Adv[facility] [address] [place] [address] Carmen Pollack RN 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 Tobacco Use [...] on filedocumented in this encounter Care Teams Jewelry Cutter Relationship Specialty Start Date End Date No Ref-Primary, Physician PCP - General 03/31/23 Oleg Aparicio PA-C [address] [place], [place] [address] Assigned Cancer Care Provider 05/06/23 Ana Oreilly MD [address] [facility] [address] [place] [address] Assigned OBGYN Provider 05/06/23 documented as of this encounter
--- OUTSIDE RECORDS SUMMARY | 2023-07-08 14:50 | XMS_ITS | Encounter Summary ---
Author Name Unknown Organization [place] Address [address] [facility] [address] Care Team Providers Care Car Wash Attendant Name Role Phone No Ref-Primary, Physician Primary Care Provider Oleg Aparicio PA-C Unavailable [phone] Ana Oreilly MD Unavailable [phone] Encounter Details Date Type Department Care [...] on filedocumented in this encounter Care Teams Car Wash Attendant Relationship Specialty Start Date End Date No Ref-Primary, Physician PCP - General 03/31/23 Oleg Aparicio, PABrightC [address] [facility] [address] [place] [address] Assigned Cancer Care Provider 05/06/23 Ana Oreilly MD [address] [place] [address] Assigned OBGYN Provider 05/06/23 documented as of this encounter
--- OUTSIDE RECORDS SUMMARY | 2023-07-08 14:50 | XMS_ITS | Encounter Summary ---
Author Name Unknown Organization [place] Address [address] [place] [address]. [place] [address] Care Team Providers Care Meter Attendant Name Role Phone No Ref-Primary, Physician [...] on filedocumented in this encounter Care Teams Meter Attendant Relationship Specialty Start Date End Date No Ref-Primary, Physician PCP - General 03/31/23 documented as of this encounter
--- OUTSIDE RECORDS SUMMARY | 2023-07-08 14:50 | XMS_ITS | Encounter Summary ---
Author Name Unknown Organization [place] Address [address] [facility] [place] [address] Care Team Providers Care Immigration Inspector Name Role Phone No Ref-Primary, Physician Primary Care Provider Oleg Aparicio PA-C Unavailable [phone] Ana Oreilly MD Unavailable [phone] Encounter Details Date Type Department Care Team (Late st Contact Info) Description 06/22/2023 2:00 PM CDT Lab [facility] [address] [place] [address] Pulmonary embolism affecting in second [...] on file documented as of this encounter Procedures Procedure [...] LAB - BLOOD ORDERABL ES [facility] [place] [facility] [address] [facility], [address] [address] documented in this encounter Visit Diagnoses Diagnosis Pulmonary embolism affecting in second trimester documented in this encounter Care Teams Immigration Inspector Relationship Specialty Start Date End Date No Ref-Primary, Physician PCP - General 03/31/23 Oleg Aparicio PA-C [address] [place], [place] [address] Assigned Cancer Care Provider 05/06/23 Ana Oreilly MD [address] [place], [place] [address] Assigned OBGYN Provider 05/06/23 documented as of this encounter
--- OUTSIDE RECORDS SUMMARY | 2023-07-08 14:50 | XMS_ITS | Encounter Summary ---
Author Name Unknown Organization [place] Address [address] [facility] [place] [address] Care Team Providers Care Double End Tenoner Setter Name Role Phone No Ref-Primary, Physician Primary Care Provider Oleg Aparicio PA-C Unavailable [phone] Ana Oreilly MD Unavailable [phone] Reason for Visit * Reason Comments Deep Vein Thrombosis Encounter Details Date Type Department Care Team (Late st Contact Info) Description 07/04/2023 2:30 PM CDT Office Visit [facility] [address] [place] [address] Oleg Aparicio PA-C [address] [place], [place] [id number] Pulmonary embolism affecting in second trimester (Primary Dx); Family history of blood clots; 31 weeks gestation of 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 Tobacco Use Types Packs/Day Years [...] 07/04/2023 2:28 PM CD T Respiratory Rate - - Oxygen Saturation 97% 07/04/2023 2:28 PM CDT Inhaled Oxygen Concentration - - Weight 74.3 kg (163 lb 12.8 oz) 07/04/2023 2:28 PM CDT Height 170.2 cm (5' 7) 07/04/2023 2:28 PM CDT Body Mass Index 25.65 07/04/2023 2:28 PM CDT documented in this encounter Progress Notes * Oleg Aparicio PA-C - 07/04/2023 2:30 PM CDT Images from the original note were not included. [facility] [address] [place] [address] Main: [phone], Patient seen at: [facility] at [address] [place] [address] Outpatient Visit Note: Patient: Gabrielle Mcmahon : 1995 DEB[place]AH: July 04, 2023 Location of this information writer at the time of this clinic visit was conducted: [facility]. Location of the patient at the time of this clinic visit was conducted: [facility]. Reason for visit: . Bilateral pulmonary embolism found on 03/08/2023. Clinical History Summary: Gabrielle is a 27 year old female who is currently at 31 weeks gestation, who was found to have a large bilateral proximal pulmonary embolism back on 03/08/2023, currently on enoxaparin at 100 mg subQ Q 12 hours, returns to clinic today for follow up. She was last seen by this information writer back on 04/28/2023. Thrombosis History Summary: Found to be around early Jan 2023. Ob ultrasound done on 01/26/2023 showed a single living intrauterine measuring at around 8 weeks 0 days with sonographic due date of 08/28/2023. During the first 1-2 months of her she did have hyperemesis. Later Jan 2023, she started to experience shortness of breath. 02/22/2023, she underwent a bilateral lower extremity venous ultrasound for leg pain and at the time showed no evidence of acute DVT in both lower extremities. 03/08/2023, she presented to [facility] emergency department with chest pain. CTA chest wasdone at the time showing large filling defect seen throughout the bilateral proximal pulmonary arteries consistent with extensive pulmonary emboli. Mild prominence of the main pulmonary artery without definite evidence of intraventricular septal inversion. She apparently did undergo echocardiogram at the time showing normal left ventricular function with no evidence of right heart strain. According to Gabrielle today, the emergency department physician did call [facility] Interventional Radiology and consult them about the need of intervention. At the time, Gabrielle was told that the risks were too high for her to undergo intervention for her pulmonary embolism. She ultimately stayed in the hospital for 2-3 days and was discharged home on enoxaparin. Gabrielle was tested negative for factor V Leiden mutation in the past as her mother apparently has ahistory of blood clot in her brain. Interim History: 04/28/2023, she established care with this information writer and I determined that her pulmonary embolic event was a provoked venous thromboembolic event. I did proceed with checking her lupus anticoagulant, cardiolipin Abys and Beta 2 Glycoprotein Abys along with LMWH Anti-Xa levels. Her APS labs were all negative. Her LMWH Anti-Xa levels was subtherapeutic at the time and thus her enoxaparin dosing was increased to 100 mg SubQ Q 12 hours (she weights about 74 kg as of today). During her 04/28/2023, I have outlined my plan in regard to her anticoagulation therapy management for the remainder of her , labor and delivery and . Currently she is on enoxaparin at 100 mg SubQ Q 12 hours dosing. She has been using her thighs lately for these injections and sometimes it does develop into a bruise. The injection sites are rather painful at times. She denies any other bleeding issues. She reports that her anticipated due date is on 09/04/2023. ROS: Denies any bleeding complications. Specifically, no frequent epistaxis. No issues with oral mucosalbleeding. Denies any hematuria or blood in stools. Denies any shortness of breath. No chest pain. No cough. No fever. Medications, Allergies and PmHx: All are reviewed by this information writer today via electronic medical records 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: Deferred. Family History: Deferred. Objective: Vitals: BP 106/68 (BP Location: Right arm, Patient Position: Right side, Cuff Size: Adult Large) Pulse 84 Temp 98.2 ??F (36.8 ??C) (Oral) Ht 1.702 m (5' 7) Wt 74.3 kg (163 lb 12.8 oz) LMP 11/28/2022 SpO2 97% BMI 25.65 kg/m?? Exam: Complete exam is not performed today. However, she does note to have some bruising over the anterior thigh where she has her enoxaparin injections. Labs: Component Latest Ref Rng 04/28/2023 2:27 PM 05/03/2023 1:03 PM INR 0.85 - 1.15 1.02 Thrombin Time 13.0 - 19.0 Seconds 19.7 (H) PTT Ratio <1.21 1.16 DRVVT Screen Ratio <1.08 0.66 Lupus Result Negative Negative Lupus Interpretation INR is normal.??? Cardiolipin Angie IgG Instrument Value <10.0 GPL-U/mL <2.0 Cardiolipin IgG Angie Negative Negative Cardiolipin Angie IgM Instrument Value <10.0 MPL-U/mL <2.0 Cardiolipin IgM Angie Negative Negative Low Molecular Weight Heparin Anti Xa Level For Reference Range, See Comment IU/mL 0.42 0.63 Beta 2 Glycoprotein 1 Antibody IgG <7.0 U/mL <0.8 Beta 2 Glycoprotein 1 Antibody IgM <7.0 U/mL <2.4 Component Latest Ref Rng 06/22/2023 1:58 PM Low Molecular Weight Heparin Anti Xa Level For Reference Range, See Comment IU/mL 0.58 Assessment: In summary, Gabrielle is a 28 year old female who is currently at 31 weeks gestation, who wasfound to have a large bilateral proximal pulmonary embolism back on 03/08/2023, currently on enoxaparin at 100 mg SubQ Q 12 hours, returns to clinic today for her follow up visit. Gabrielle's was having quite a bit of [...] thrombosis with her mother. Currently at around 31 weeks. Plan: Today, her and her have a few questions for which I have answered them all to their satisfaction. Her anticoagulation management plan for the remainder of her is as follow: Antepartum: Continue enoxaparin at 100 mg SubQ Q 12 hours through the remainder of her . No further LMWH Anti-Xa levels checks are needed. Labor and Delivery: Recommend that she is to undergo scheduled induction of labor. With scheduled induction of labor, she can stop her enoxaparin 24 hours prior to her induction date and this will provide her opportunity to receive epidural anesthesia if desired. I explain that if she goes into labor early, then she might not be able to receive epidural anesthesia if her last enoxaparin injectionis within 24 hours period. I also explain to her that she might need general anesthesia for emergent delivery if her last enoxaparin injection is within 24 hours period. : I recommend that she is to restart enoxaparin 12-24 hours after her delivery assuming that she has no bleeding complications. I will have her get a repeat LMWH Anti-Xa level done 1 week after her delivery and adjust her enoxaparin dose as necessary. Then I will plan to have her stay on enoxaparin for at least 6 weeks post . I will see her back in our clinic 1 months post to discuss proceeding with inherit thrombophilia workup at that point as she does have a family history (her mother) of venous thromboembolism. Oleg Aparicio PA-C, MPAS Physician Lumber Kiln Operator [facility]. The longitudinal [...] thrombosis with her mother. Currently at around 31 weeks. 30 minutes spent by me on the date of the encounter doing chart review, history and exam, documentation and further activities per the note. Time IN: 14:32 Time OUT: 14:50 documented in this encounter Plan of Treatment Scheduled Orders Name Type Priority Associated Diagnoses Orde r Schedule Low Molecular Weight Heparin Anti Xa Level Lab Routine Pulmonary embolism affecting in second trimester Family history of blood clots 31 weeks gestation of Expected: 09/12/2023 (Approximate), Expires: 07/03/2024 documented as of this encounter Visit Diagnoses Diagnosis Pulmonary embolism affecting in second trimester- Primary Family history of blood clots Family history of other blood disorders 31 weeks gestation of state, incidental documented in this encounter Care Teams Double End Tenoner Setter Relationship Specialty Start Date End Date No Ref-Primary, Physician PCP - General 03/31/23 Oleg Aparicio PA-C [address] [place], [place] [address] Assigned Cancer Care Provider 05/06/23 Ana Oreilly MD [address] [place] [address] Assigned OBGYN Provider 05/06/23 documented as of this encounter
--- OUTSIDE RECORDS SUMMARY | 2023-07-08 14:50 | XMS_ITS | Encounter Summary ---
Author Name Unknown Organization [place] Address [address] [place] [address] Care Team Providers Care Chicken Tender Name Role Phone No Ref-Primary, Physician Primary Care Provider Oleg Aparicio PA-C Unavailable [phone] Ana Oreilly MD Unavailable [phone] Reason for Referral * Diagnostic Imaging Ultrasound (Routine) - Pending Review Specialty Diagnoses / Procedures Referred By Contac t Referred To Contact Radiology. Diagnoses related condition, antepartum Procedures [facility] US Comprehensive Single F/U Ori Adame MD [address] [place], [place] [address] [address] Referral ID Status Reason Start Date Expiration Date V isits Requested Visits Authorized [id number] Pending Review 05/10/2023 05/09/2024 1 1 Reason for Visit * Diagnostic Imaging Ultrasound (Routine) - Pending Review Specialty Diagnoses / Procedures Referred By Contac t Referred To Contact Radiology. Diagnoses related condition, antepartum Procedures [facility] US Comprehensive Single F/U Ori Adame MD [address] [address] Referral ID Status Reason Start Date Expiration Date V isits Requested Visits Authorized [id number] Pending Review 05/10/2023 05/09/2024 1 1 Encounter Details Date Type Department Care Team (Latest Contact Info) Description 05/31/2023 10:45 AM CDT - 05/31/2023 11:59 PM CDT Hospital Encounter [facility] [place] [address] [place] [address] Ori Adame MD [address] [place] [address] Encounter for ultrasound to assess growth Discharge [...] Procedure Name Priority Date/Time Associated Diagnosis Comments [facility] US COMPREHENSIVE SINGLE F/U Routine 05/31/2023 11:40 AM CDT Encounter for ultrasound to assess growth documented in this encounter Results * [facility] US Comprehensive Single F/U (05/31/2023 11:40 [...] CDT ?Comp Follow Up ----- Pat. Name: CRISTOFERGABRIELLE ? Study Date: ??05/31/2023 10:49am Pat. NO: ??[id number] ?Referring ??MD: TRISTA MELLO Site: ??[facility] ? House Painter Helper: Chanda Lazo RDMS : ??1995 ?Age: ?? [...] lb 13 ? oz EFW by ?Hadlock ([id number]) Head / Face / Neck Biometry: People Greeter ? 5.7 ? mm CM ?7.7 ? mm ANATOMY ----- The following structures appear normal: Head / Neck ? Cranium. Head size. Head shape. Lateral ventricles. Midline falx. Cavum septi pellucidi. Cerebellum. Cisterna magna. Thalami. Heart / Thorax ?4-chamber view. RVOT view. LVOT view. 5-kzegnp-bjzelqy view. ? Diaphragm. Abdomen ? Stomach. Kidneys. [...] [place] Study Date: 05/31/2023 10:49am Pat. NO: [id number] Referring MD: TRISTA MELLO Site: [facility] House Painter Helper: Chanda Lazo RDMS : 1995 Age: 28 [...] 1 lb 13 oz EFW by Hadlock ([id number]) Head / Face / Neck Biometry: People Greeter 5.7 mm CM 7.7 mm ANATOMY ----- The following structures appear normal: Head / Neck Cranium. Head size. Head shape.Lateral ventricles. Midline falx. Cavum septi pellucidi. Cerebellum.Cisterna magna. Thalami. Heart / Thorax 4-chamber view. RVOT view. LVOT view.3-kpvjmr-zrkgquc view. Diaphragm. Abdomen Stomach. Kidneys. Bladder. Spine [...] volume appeared normal. Ori Adame MD IMG [facility] US ORDERABL ES documented in this encounter Visit Diagnoses Diagnosis Encounter for ultrasound to assess growth documented in this encounter Care Teams Chicken Tender Relationship Specialty Start Date End Date No Ref-Primary, Physician PCP - General 03/31/23 Oleg Aparicio, RUPAL [address] [place] [address] Assigned Cancer Care Provider 05/06/23 Ana Oreilly MD [address] [address] Assigned OBGYN Provider 05/06/23 documented as of this encounter
--- OUTSIDE RECORDS SUMMARY | 2023-07-08 14:50 | XMS_ITS | Encounter Summary ---
Author Name Unknown Organization [place] Address [address] [facility] [place] [address] Care Team Providers Care Vehicle Fare Collector Name Role Phone No Ref-Primary, Physician Primary Care Provider Oleg Aparicio PA-C Unavailable [phone] Ana Oreilly MD Unavailable [phone] Reason for Referral * Diagnostic Imaging Ultrasound (Routine) - Pending Review Specialty Diagnoses / Procedures Referred By Diana t Referred To Contact Radiology. Diagnoses Encounter for ultrasound to check growth Procedures [facility] US Comprehensive Single F/U Ori Adame MD [address] [place] [address] Referral ID Status Reason Start Date Expiration Date V isits Requested Visits Authorized [id number] Pending Review 05/31/2023 05/30/2024 1 1 Reason for Visit * Reason Comments Ultrasound RL2-reassess g rowth, EFW 15% Encounter Details Date Type Department Care Team (Late st Contact Info) Description 05/31/2023 11:30 AM CDT Office Visit [facility] [place] [address] [place] [address] Ori Adame MD [address] [place] [address] Encounter for ultrasound to check [...] for details of today's US at the [facility]. Ori Adame MD Maternal- Medicine documented [...] OB givenhistory of PE. SBAR given to [facility] (Dr. Adame), see their note in Epic. documented in this encounter Plan of Treatment Not on file documented as of this encounter Results * [facility] US Comprehensive Single F/U (06/21/2023 10:50 AM [...] ?Comp Follow Up ----- Pat. Name: CRISTOFER AVELTAYLERDARRIN ? Study Date: ??06/21/2023 9:50am Pat. NO: ??[id number] ?Referring ??MD: TRISTA MELLO Site: ??[facility] ? Furniture Repair Technician: Chanda Lazo RDMS : ??1995 ?Age: [...] 2 lb 12 ?oz EFW by ?Hadlock ([id number]-GY-[id number]-FL) Head / Face / Neck Biometry: Bath Tester ? 4.9 ? mm CM ?5.5 ? mm ANATOMY ----- The following structures appear normal: Head / Neck ? Cranium. Head size. Head shape. Lateral ventricles. Midline falx. Cerebellum. Cisterna magna. Thalami. Face ? Lips. Profile. Nose. Heart / Thorax ?4-chamber view. RVOT view. LVOT view. 5-bxnzqc-hhzdnvn view. ? Diaphragm. Abdomen ? Stomach. Kidneys. [...] be present but not detected Procedure Note Rauk, Ori Rene, MD - 06/21/2023 Comp Follow Up ----- Pat. Name: GABRIELLE [place] Study Date: 06/21/2023 9:50am Pat. NO: [id number] Referring MD: TRISTA MELLO Site: [facility] Furniture Repair Technician: Chanda Lazo RDMS : 1995 Age: [...] 2 lb 12 oz EFW by Hadlock ([id number]-[id number]-FL) Head / Face / Neck Biometry: Bath Tester 4.9 mm CM 5.5 mm ANATOMY ----- The following structures appear normal: Head / Neck Cranium. Head size. Head shape.Lateral ventricles. Midline falx. Cerebellum. Cisterna magna. Thalami. Face Lips. Profile. Nose. Heart / Thorax 4-chamber view. RVOT view. LVOT view.7-irwnlk-uzkhorf view. Diaphragm. Abdomen Stomach. Kidneys. Bladder. Spine [...] normal. Ori Adame MD [facility] US ORDERABL ES documented in this encounter Visit Diagnoses Diagnosis Encounter for ultrasound to check growth- Primary Encounter for ultrasound to check growth documented in this encounter Care Teams Vehicle Fare Collector Relationship Specialty Start Date End Date No Ref-Primary, Physician PCP - General 03/31/23 Oleg Aparicio PA-C [address] [facility] [address] [place], [place] [address] Assigned Cancer Care Provider 05/06/23 Ana Oreilly MD [address] [address] [place], [place] [address] Assigned OBGYN Provider 05/06/23 documented as of this encounter
--- OUTSIDE RECORDS SUMMARY | 2023-07-08 14:50 | XMS_ITS | Encounter Summary ---
Author Name Unknown Organization [place] Address [address] [place] [address]. [place] [address] Care Team Providers Care Arbor Press Operator Name Role Phone No Ref-Primary, Physician [...] on filedocumented in this encounter Care Teams Arbor Press Operator Relationship Specialty Start Date End Date No Ref-Primary, Physician PCP - General 03/31/23 documented as of this encounter
--- OUTSIDE RECORDS SUMMARY | 2023-07-08 14:50 | XMS_ITS | Encounter Summary ---
Author Name Unknown Organization [place] Address [address] [place] [address]. [place] [address] Care Team Providers Care Elementary Assistant Teacher Name Role Phone No Ref-Primary, Physician Primary Care Provider Encounter Details Date Type Department Care Team ([facility] st Contact Info) Description 04/28/2023 Telephone [facility] [address] [address] Oleg Aparicio PA-C [address] [place] [phone] 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 Tobacco Use Types Packs/Day Years [...] from the original note were not included. [facility] [address] [place] [address] [address], [place] [address] Main: [phone], Telephone Note: Patient: Gabrielle Mcmahon : 1995 Date of this note written: April 28, 2023 Time: 15:55 This report writer called the patient on 04/28/2023 at [...] post . Oleg Aparicio PA-C, MPAS Physician Zinc Plater [facility]. J2EE APPLICATION DEVELOPER documented in this encounter Plan of Treatment Not on file documented as of this encounter Visit Diagnoses Not on filedocumented in this encounter Care Teams Elementary Assistant Teacher Relationship Specialty Start Date End Date No Ref-Primary, Physician PCP - General 03/31/23 documented as of this encounter
--- OUTSIDE RECORDS SUMMARY | 2023-07-08 14:50 | XMS_ITS | Encounter Summary ---
Author Name Unknown Organization [place] Address [facility] [place] [address] Care Team Providers Care Miniature Model Maker Name Role Phone No Ref-Primary, Physician Primary Care Provider Encounter Details Date Type Department Care Team (Late st Contact Info) Description 05/03/2023 1:00 PM CDT [facility] [address] [place] [address] Pulmonary embolism affecting in second [...] [facility] SPECIALTY CORE/PROT/ENDO UM Specialty Core/Prot/Endo [address] [facility], [address] * Beta 2 Glycoprotein 1 Antibody IgG (05/03/2023 1:03 PM CDT) Beta 2 Glycoprotein 1 Antibody IgG <0.8 <7.0 U/mL 05/04/2023 10:34 AM CDT SPECIALTY CORE/PROT/END O Comment:Negative Blood BLOOD SPECIMEN / Unknown Venipuncture / Unknown 05/03/2023 1:03 PM CDT 05/03/2023 1:03 PM CDT Oleg Aparicio PA-C LAB - BLOOD ORDERABL ES UM SPECIALTY CORE/PROT/ENDO UM Specialty Core/Prot/Endo [address] [facility], [address] * Cardiolipin M[place]zie IgG and IgM [...] ES UM SPECIALTY CORE/PROT/ENDO Specialty Core/Prot/Endo [address] [facility], [address] * (ABNORMAL) Lupus Anticoagulant Panel (05/03/2023 1:03 PM CDT) Pathologist [facility] INR 1.02 0.85 - 1.15 4 2:25 [...] of an antiphospholipid syndrome, recommend anticardiolipin and rkiu-8-lztlsrfmmoq n (IgG and IgM) antibody tests. Recommend [...] - BLOOD ORDERABL ES Performing Organization Address [facility] Co de Phone Number [facility] SPECIAL COAGULATION [facility] Special Coagulation [address] [facility], [address] [phone] * Low Molecular Weight Heparin Anti Xa Level (05/03/2023 1:03 PM CDT) Pathologist [facility] Anti Xa Low Molecular Weight 0.63 For [...] - BLOOD ORDERABL ES Performing Organization Address City/[facility]/ZIP Co de Phone Number [facility] [address] [facility], [address] [address] documented in this encounter Visit Diagnoses Diagnosis Pulmonary embolism affecting in second trimester Family history of blood clots Family history of other blood disorders documented in this encounter Care Teams Miniature Model Maker Relationship Specialty Start Date End Date No Ref-Primary, Physician PCP - General 03/31/23 documented as of this encounter
--- OUTSIDE RECORDS SUMMARY | 2023-07-08 14:50 | XMS_ITS | Encounter Summary ---
Author Name Unknown Organization [place] Address [address] [facility] [place] [address] Care Team Providers Care Director Construction Services Name Role Phone No Ref-Primary, Physician Primary Care Provider Oleg Aparicio PA-C Unavailable [phone] Ana Oreilly MD Unavailable [phone] Encounter Details Date Type Department Care [...] on filedocumented in this encounter Care Teams Director Construction Services Relationship Specialty Start Date End Date No Ref-Primary, Physician PCP - General 03/31/23 Oleg Aparicio, PABrightC [address] [facility] [address] [place] [address] Assigned Cancer Care Provider 05/06/23 Ana Oreilly MD [address] [place] [address] Assigned OBGYN Provider 05/06/23 documented as of this encounter
--- OUTSIDE RECORDS SUMMARY | 2023-07-08 14:50 | XMS_ITS | Encounter Summary ---
Author Name Unknown Organization [place] Address [address] [place] [address]. [place] [address] Care Team Providers Care Upholstery Restorer Name Role Phone No Ref-Primary, Physician Primary [...] on filedocumented in this encounter Care Teams Upholstery Restorer Relationship Specialty Start Date End Date No Ref-Primary, Physician PCP - General 03/31/23 documented as of this encounter
--- OUTSIDE RECORDS SUMMARY | 2023-07-08 14:50 | XMS_ITS | Referral Summary ---
Author Name Unknown Organization [place] Address [address] [place] [address] Care Team Providers Care Card Cutter Helper Name Role Phone No Ref-Primary, Physician Primary Care Provider Oleg Aparicio PA-C Unavailable [phone] Ana Oreilly MD Unavailable [phone] Encounters Date Type Department Care Team Description 07/04/2023 Travel 07/04/2023 2:30 PM CDT Office Visit [facility] [address] [place] [address] Oleg Aparicio PA-C Pulmonary embolism affecting in second trimester (Primary Dx); Family history of blood clots; 31 weeks gestation of 06/22/2023 2:00 PM CDT Lab [facility] [address] [facility] [address] [place] [phone] Pulmonary embolism affecting in second trimester 06/22/2023 MyC Medical Advice [facility] [address] [place] [address] Oleg Aparicio PA-C 06/21/2023 Travel 06/21/2023 10:00 AM CDT Office Visit [facility] [place] [address] [place] [phone] Ori Adame MD Encounter for ultrasound to check growth (Primary Dx) 06/21/2023 9:30 AM CDT - 06/21/2023 11:59 PM CDT Hospital Encounter [facility] [place] [address] [place] [address] Ori Adame MD Encounter for ultrasound to check growth Discharge Disposition: Home or Self Care 05/31/2023 Travel 05/31/2023 11:30 AM CDT Office Visit [facility] [place] [address] [place] [phone] Ori Adame MD Encounter for ultrasound to check growth (Primary Dx) 05/31/2023 10:45 AM CDT - 05/31/2023 11:59 PM CDT Hospital Encounter [facility] [place] [address] [place] [address] Ori Adame MD Encounter for ultrasound to assess growth Discharge Disposition: Home or Self Care 05/10/2023 Travel 05/10/2023 10:00 AM CDT Office Visit [facility] [place] [address] [place] [address] Ori Adame MD Encounter for follow-up ultrasound of anatomy (Primary Dx); History of delivery, currently ; Encounter for ultrasound to assess growth 05/10/2023 9:28 AM CDT - 05/10/2023 11:59 PM CDT Hospital Encounter [facility] [place] [address] [place] [address] Ori Adame MD Pulmonary embolism affecting in second trimester Discharge Disposition: Home or Self Care 05/03/2023 1:00 PM CDT Lab [facility] [address] [place] [address] Pulmonary embolism affecting in second trimester; Family history of blood clots 04/28/2023 MyC Medical Advice [facility] [address] [facility] [address] [place] [address] Carmen Pollack RN 04/28/2023 Telephone [facility] [address] [place] [address] Oleg Aparicio PA-C 04/28/2023 Travel 04/28/2023 1:30 PM [employer]AR[employer] Office Visit [facility] [address] [facility] [address] [place] [address] Ana Oreilly MD Chan, Ricky Y, PA-Katrin Pulmonary embolism affecting in second trimester (Primary Dx); Family history of blood clots 04/27/2023 Travel 04/12/2023 Travel 04/12/2023 9:11 AM [employer]ARLAND [employer] - 04/12/2023 11:59 PM [employer] Hospital Encounter [facility] [place] [address] [place] [address] Ana Oreilly MD Pulmonary embolism affecting in second trimester; History of delivery, currently Discharge Disposition: Home or Self Care 04/12/2023 10:15 AM [employer]ARLAND [employer] Office Visit [facility] [place] [address] [place] [address] Ana Oreilly MD Pulmonary embolism affecting in [...] Respiratory Rate 20 04/12/2023 10:5 8 AM [employer]ARLAND [employer] Oxygen Saturation 97% 07/04/2023 2:28 PM CDT Inhaled Oxygen Concentration - - Weight 74.3 kg (163 lb 12.8 oz) 07/04/2023 2:28 PM CDT Height 170.2 cm (5' 7) 07/04/2023 2:28 PM CDT Body Mass Index 25.65 07/04/2023 2:28 PM CDT Plan of Treatment Not on file Procedures Procedure Name Priority Date/Time Associated Diagnosis Comments LOW MOLECULAR WEIGHT HEPARIN ANTI XA LEVEL Routine 06/22/2023 1:58 PM CDT Pulmonary embolism affecting in second trimester [facility] COMPREHENSIVE SINGLE F/U Routine 06/21/2023 10:50 AM CDT Encounter for ultrasound to check growth [facility] US COMPREHENSIVE SINGLE F/U Routine 05/31/2023 11:40 AM CDT Encounter for ultrasound to assess growth [facility] US COMPREHENSIVE SINGLE F/U Routine 05/10/2023 [...] ANTI XA LEVEL Routine 04/28/2023 2:27 PM [employer]AR[employer] Pulmonary embolism affecting in second trimester [facility] COMPREHENSIVE SINGLE Routine 04/12/2023 10:26 AM [employer]AR[employer] Pulmonary embolism affecting in second trimester History [...] LAB - BLOOD ORDERABL ES U LABORATORY [facility] Core Lab [address] [facility] [place] [address] * [facility] Comprehensive Single F/U (06/21/2023 10:50 [...] ? Study Date: ??06/21/2023 9:50am Pat. NO: ??[id number] ?Referring ??MD: TRISTA MELLO Site: ??[facility] ? Farrowing Worker: Chanda Lazo RDMS : ??1995 ?Age: [...] 2 lb 12 ?oz EFW by ?Hadlock ([id number]-FL) Head / Face / Neck Biometry: Center Line Cutter Operator ? 4.9 ? mm CM ?5.5 ? mm ANATOMY ----- The following structures appear normal: Head / Neck ? Cranium. Head size. Head shape. Lateral ventricles. Midline falx. Cerebellum. Cisterna magna. Thalami. Face ? Lips. Profile. Nose. Heart / Thorax ?4-chamber view. RVOT view. LVOT view. 6-bfkfos-gdpcfxk view. ? Diaphragm. Abdomen ? Stomach. Kidneys. [...] [place] Study Date: 06/21/2023 9:50am Pat. NO: [id number] Referring MD: TRISTA MELLO Site: [facility] Farrowing Worker: Chanda Lazo RDMS : 1995 Age: [...] 2 lb 12 oz EFW by Hadlock ([id number]-FL) Head / Face / Neck Biometry: Center Line Cutter Operator 4.9 mm CM 5.5 mm ANATOMY ----- The following structures appear normal: Head / Neck Cranium. Head size. Head shape.Lateral ventricles. Midline falx. Cerebellum. Cisterna magna. Thalami. Face Lips. Profile. Nose. Heart / Thorax 4-chamber view. RVOT view. LVOT view.3-taewpr-zlqvfpj view. Diaphragm. Abdomen Stomach. Kidneys. Bladder. Spine [...] fluid volume appeared normal. Ori Adame MD [facility] * Cardiolipin Makenzie IgG [...] LAB - BLOOD ORDERABL ES SPECIALTY CORE/PROT/ENDO Specialty Core/Prot/Endo [address] [facility] [address], Room [address] * Beta 2 Glycoprotein 1 Antibody IgM (05/03/2023 1:03 PM CDT) Beta 2 Glycoprotein 1 Antibody IgM <2.4 <7.0 U/mL 05/04/2023 10:34 AM CDT UM SPECIALTY CORE/PROT/END O Comment:Negative Blood BLOOD SPECIMEN / Unknown Venipuncture / Unknown 05/03/2023 1:03 PM CDT 05/03/2023 1:03 PM CDT Oleg Aparicio PA-C LAB - BLOOD ORDERABL ES UM SPECIALTY CORE/PROT/ENDO UM Specialty Core/Prot/Endo [address] [facility], Room [address] * Beta 2 Glycoprotein 1 Antibody IgG (05/03/2023 1:03 PM CDT) Beta 2 Glycoprotein 1 Antibody IgG <0.8 <7.0 U/mL 05/04/2023 10:34 AM CDT UM SPECIALTY CORE/PROT/END O Comment:Negative Blood BLOOD SPECIMEN / Unknown Venipuncture / Unknown 05/03/2023 1:03 PM CDT 05/03/2023 1:03 PM CDT Oleg Aparicio PA-C LAB - BLOOD ORDERABL ES UM SPECIALTY CORE/PROT/ENDO UM Specialty Core/Prot/Endo [address] [facility], Room [address] * (ABNORMAL) Lupus Anticoagulant Panel (05/03/2023 [...] of an antiphospholipid syndrome, recommend anticardiolipin and yjch-0-vigpcjrfzbw n (IgG and IgM) antibody tests. Recommend [...] UM SPECIAL COAGULATION UM Special Coagulation [address] [facility], [address] [place] [phone], [facility] * [facility] Comprehensive [facility] (04/12/2023 10:26 AM [employer] GARLAND MAKER) Anatomical Region Laterality Modality Ultrasound 04/12/2023 9:24 AM [employer] GARLAND MAKER Impressions 04/12/2023 3:24 PM [employer] GARLAND MAKER IMPRESSION ----- 1. Barnett intrauterine at 19w [...] long and closed. Narrative 04/12/2023 3:24 PM [employer]ARLAND [employer] ?Comprehensive ----- Pat. Name: GABRIELLE [place] ? Study Date: ??04/12/2023 9:24am Pat. NO: ??[id number] ?Referring ??MD: TRISTA MELLO Site: ??[facility] ? Farrowing Worker: Edda Ayala RDMS : ??1995 ?Age: [...] 0 lb 9 ?oz EFW by ?Hadlock ([id number]-LJ-WC-FL) Head / Face / Neck Biometry: Center Line Cutter Operator ? 6.4 ? mm CM ?1.7 [...] cava. Inferior vena cava. 3-vessel ? view. 4-kowteg-bxloryv view. Cardiac position. Cardiac size. Cardiac rhythm. [...] [place] Study Date: 04/12/2023 9:24am Pat. NO: [id number] Referring MD: TRISTA MELLO Site: [facility] Farrowing Worker: Edda Ayala RDMS : 1995 Age: [...] 0 lb 9 oz EFW by Hadlock ([id number]-EX-TT-FL) Head / Face / Neck Biometry: Center Line Cutter Operator 6.4 mm CM 1.7 mm Nasal [...] Superior venacava. Inferior vena cava. 3-vessel view. 9-tsgucr-fqylxvm view.Cardiac position. Cardiac size. Cardiac rhythm. Right [...] ----- Thank-you for referring your patient for [facility] consult & ultrasoundassessment. I discussed the [...] the cervix appears long and closed. Ori WADDELL [facility] US ORDERABL ES from Last 3 Months Care Teams Card Cutter Helper Relationship Specialty Start Date End Date No Ref-Primary, Physician PCP - General 03/31/23 Oleg Aparicio, PABrightC [address] [place] [address] Assigned Cancer Care Provider 05/06/23 Ana Oreilly MD [address] [place] [address] Assigned OBGYN Provider 05/06/23
--- OUTSIDE RECORDS SUMMARY | 2023-07-08 14:50 | XMS_ITS | Encounter Summary ---
Author Name Unknown Organization [place] Address [address] [place] [address] Care Team Providers Care Moss Bleacher Name Role Phone No Ref-Primary, Physician Primary Care Provider Oleg Aparicio PA-C Unavailable [phone] Ana Oreilly MD Unavailable [phone] Reason for Referral * Diagnostic Imaging Ultrasound (Routine) - Pending Review Specialty Diagnoses / Procedures Referred By Contac t Referred To Contact Radiology. Diagnoses Pulmonary embolism affecting in second trimester Procedures [facility] Comprehensive Single F/U Ana Oreilly MD [address] [address] Referral ID Status Reason Start Date Expiration Date V isits Requested Visits Authorized [id number] Pending Review 04/12/2023 04/11/2024 1 1 Reason for Visit * Diagnostic Imaging Ultrasound (Routine) - Pending Review Specialty Diagnoses / Procedures Referred By Contac t Referred To Contact Radiology. Diagnoses Pulmonary embolism affecting in second trimester Procedures [facility] US Comprehensive Single F/U Ana Oreilly MD [address] [employer] [address] [place] [address] Referral ID Status Reason Start Date Expiration Date V isits Requested Visits Authorized [id number] Pending Review 04/12/2023 04/11/2024 1 1 Encounter Details Date Type Department Care Team (Latest Contact Info) Description 05/10/2023 9:28 AM CDT - 05/10/2023 11:59 PM CDT Hospital Encounter [facility] [place] [address] [place] [address] Ori Adame MD [address] [place] [address] Pulmonary embolism affecting in second trimester Discharge [...] Procedure Name Priority Date/Time Associated Diagnosis Comments [facility] COMPREHENSIVE SINGLE F/U Routine 05/10/2023 10:08 AM CDT Pulmonary embolism affecting in second trimester documented in this encounter Results * [facility] Comprehensive Single F/U (05/10/2023 10:08 AM [...] ? Study Date: ??05/10/2023 9:30am Pat. NO: ??[id number] ?Referring ??MD: TRISTA MELLO Site: ??[facility] ? Hand Stemmer: Yamel Hill RDMS : ??1995 ?Age: ?? [...] 1 lb 2 ?oz EFW by ?Hadlock ([id number]-YF-FL) Head / Face / Neck Biometry: Chinese Herbalist ? 6.2 ? mm CM ?3.8 ? mm Nasal bone ? 7.0 ? mm ANATOMY ----- The following structures appear normal: Head / Neck ? Cranium. Head size. Head shape. Lateral ventricles. Midline falx. Cavum septi pellucidi. Cerebellum. Cisterna magna. Thalami. Face ? Lips. Profile. Nose. Maxilla. Mandible. Heart / Thorax ?4-chamber view. RVOT view. LVOT view. Situs. 5-xffjge-wbismjk view. ? Diaphragm. Abdomen ? Stomach. Kidneys. [...] [place] Study Date: 05/10/2023 9:30am Pat. NO: [id number] Referring MD: TRISTA MELLO Site: [facility] Hand Stemmer: Yamel [place] RDMS : 1995 Age: 27 [...] 1 lb 2 oz EFW by Hadlock (YZZ-BY-EK-FL) Head / Face / Neck Biometry: Chinese Herbalist 6.2 mm CM 3.8 mm Nasal bone 7.0 mm ANATOMY ----- The following structures appear normal: Head / Neck Cranium. Head size. Head shape.Lateral ventricles. Midline falx. Cavum septi pellucidi. Cerebellum.Cisterna magna. Thalami. Face Lips. Profile. Nose. Maxilla.Mandible. Heart / Thorax 4-chamber view. RVOT view. LVOT view.Situs. 5-docgiw-wrbvkwe view. Diaphragm. Abdomen Stomach. Kidneys. Bladder. Spine [...] length with no funneling. Ana Oreilly MD [facility] US ORDERABLE S documented in this encounter Visit Diagnoses Diagnosis Pulmonary embolism affecting in second trimester documented in this encounter Care Teams Moss Bleacher Relationship Specialty Start Date End Date No Ref-Primary, Physician PCP - General 03/31/23 Oleg Aparicio, PABrightC [address] [facility] [address] [place] [address] Assigned Cancer Care Provider 05/06/23 Ana Oreilly MD [address] [facility] [address] [place] [address] Assigned OBGYN Provider 05/06/23 documented as of this encounter
--- OUTSIDE RECORDS SUMMARY | 2023-07-08 14:50 | XMS_ITS | Encounter Summary ---
Author Name Unknown Organization [place] Address [address] [place] [address] Care Team Providers Care Fish Cleaner Name Role Phone No Ref-Primary, Physician Primary Care Provider Oleg Aparicio PA-C Unavailable [phone] Ana Oreilly MD Unavailable [phone] Reason for Referral * Diagnostic Imaging Ultrasound (Routine) - Pending Review Specialty Diagnoses / Procedures Referred By Contac t Referred To Contact Radiology. Diagnoses Encounter for ultrasound to check growth Procedures [facility] US Comprehensive Single F/U Ori Adame MD [address] [facility] [address] [address] Referral ID Status Reason Start Date Expiration Date V isits Requested Visits Authorized [id number] Pending Review 05/31/2023 05/30/2024 1 1 Reason for Visit * Diagnostic Imaging Ultrasound (Routine) - Pending Review Specialty Diagnoses / Procedures Referred By Contac t Referred To Contact Radiology. Diagnoses Encounter for ultrasound to check growth Procedures [facility] Comprehensive Single F/U Ori Adame MD [address] [employer] [address] [address] Referral ID Status Reason Start Date Expiration Date V isits Requested Visits Authorized [id number] Pending Review 05/31/2023 05/30/2024 1 1 Encounter Details Date Type Department Care Team (Latest Contact Info) Description 06/21/2023 9:30 AM CDT - 06/21/2023 11:59 PM CDT Hospital Encounter [facility] [place] [address] [place] [address] Ori Adame MD [address] [place] [address] Encounter for ultrasound to check growth Discharge [...] Procedure Name Priority Date/Time Associated Diagnosis Comments [facility] US COMPREHENSIVE SINGLE F/U Routine 06/21/2023 10:50 AM CDT Encounter for ultrasound to check growth documented in this encounter Results * [facility] US Comprehensive Single F/U (06/21/2023 10:50 [...] ----- Pat. Name: CRISTOFERGABRIELLE ? Study Date: ??06/21/2023 9:50am Pat. NO: ??[id number] ?Referring ??MD: TRISTA MELLO Site: ??[facility] ? Supply Chain Coordinator: Chanda Lazo RDMS : ??1995 ?Age: [...] 2 lb 12 ?oz EFW by ?Hadlock ([id number]-JJ-FL) Head / Face / Neck Biometry: Ladies Locker Room Attendant ? 4.9 ? mm CM ?5.5 ? mm ANATOMY ----- The following structures appear normal: Head / Neck ? Cranium. Head size. Head shape. Lateral ventricles. Midline falx. Cerebellum. Cisterna magna. Thalami. Face ? Lips. Profile. Nose. Heart / Thorax ?4-chamber view. RVOT view. LVOT view. 7-duohig-wowzvqk view. ? Diaphragm. Abdomen ? Stomach. Kidneys. [...] [place] Study Date: 06/21/2023 9:50am Pat. NO: [id number] Referring MD: TRISTA MELLO Site: [facility] Supply Chain Coordinator: Chanda Lazo RDMS : 1995 Age: [...] 2 lb 12 oz EFW by Hadlock (FOU-AL-WB-FL) Head / Face / Neck Biometry: Ladies Locker Room Attendant 4.9 mm CM 5.5 mm ANATOMY ----- The following structures appear normal: Head / Neck Cranium. Head size. Head shape.Lateral ventricles. Midline falx. Cerebellum. Cisterna magna. Thalami. Face Lips. Profile. Nose. Heart / Thorax 4-chamber view. RVOT view. LVOT view.0-rgblkp-fwbsirf view. Diaphragm. Abdomen Stomach. Kidneys. Bladder. Spine [...] fluid volume appeared normal. Ori Adame MD [facility] documented in this encounter Visit Diagnoses Diagnosis Encounter for ultrasound to check growth documented in this encounter Care Teams Fish Cleaner Relationship Specialty Start Date End Date No Ref-Primary, Physician PCP - General 03/31/23 Oleg Aparicio, RUPAL [address] [place] [address] Assigned Cancer Care Provider 05/06/23 Ana Oreilly MD [address] [address] Assigned OBGYN Provider 05/06/23 documented as of this encounter
--- OUTSIDE RECORDS SUMMARY | 2023-07-08 14:50 | XMS_ITS | Encounter Summary ---
Author Name Unknown Organization [place] Address [facility] [place] [address] Care Team Providers Care Farm Operations Technical Director Name Role Phone No Ref-Primary, Physician Primary Care Provider Oleg Aparicio PA-C Unavailable [phone] Ana Oreilly MD Unavailable [phone] Encounter Details Date Type Department Care Team (Late st Contact Info) Description 06/22/2023 [facility] [address] [place] [address] Oleg Aparicio PA-C [address] [place] [address] 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 Tobacco Use Types [...] Lovenox at 8:56 AM. 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 Patient verbalized understanding and will go to lab. Sandie White RN, BSN, PCCN Nurse Clinician [facility] [address] [place] [address] [address], [place] [address] Office, direct: [phone] Main office number: [phone] Pronouns: She, her, hers documented in this encounter Plan of Treatment Not on file documented as of this encounter Visit Diagnoses Not on filedocumented in this encounter Care Teams Farm Operations Technical Director Relationship Specialty Start Date End Date No Ref-Primary, Physician PCP - General 03/31/23 Oleg Aparicio, PABrightC [address] [place] [address] [address] [place] [address] Assigned Cancer Care Provider 05/06/23 Ana Oreilly MD [address] [address] Assigned OBGYN Provider 05/06/23 documented as of this encounter
--- OUTSIDE RECORDS SUMMARY | 2023-07-08 14:50 | XMS_ITS | Encounter Summary ---
Author Name Unknown Organization [place] Address [address] [place] [address] Care Team Providers Care Network Programmer Name Role Phone No Ref-Primary, Physician Primary Care Provider Reason for Referral * Diagnostic Imaging Ultrasound (Routine) - Pending Review Specialty Diagnoses / Procedures Referred By Contac t Referred To Contact Radiology. Diagnoses Pulmonary embolism affecting in second trimester History of delivery, currently Procedures [facility] Ori Jerome MD [address] [place], [place] [address] [address] [address] Referral ID Status Reason Start Date Expiration Date V isits Requested Visits Authorized [id number] Pending Review 03/10/2023 03/09/2024 1 1 MOTIVE SERVICE CASHIER Reason for Visit * Diagnostic Imaging Ultrasound (Routine) - Pending Review Specialty Diagnoses / Procedures Referred By Contac t Referred To Contact Radiology. Diagnoses Pulmonary embolism affecting in second trimester History of delivery, currently Procedures [facility] Ori Jerome MD [address] [facility] [address] [facility] [address] [place] [address] Referral ID Status Reason Start Date Expiration Date V isits Requested Visits Authorized [id number] Pending Review 03/10/2023 03/09/2024 1 1 Encounter Details Date Type Department Care Team (Latest Contact Info) Description 04/12/2023 9:11 AM AUTOMOTIVE SERVICE CASHIER - 04/12/2023 11:59 PM AUTOMOTIVE SERVICE CASHIER Hospital Encounter [facility] [place] [address] [place] [phone] Ana Oreilly MD [address] [place], [place] [address] Pulmonary embolism affecting in second trimester; History [...] Procedure Name Priority Date/Time Associated Diagnosis Comments [facility] COMPREHENSIVE SINGLE Routine 04/12/2023 10:26 AM AUTOMOTIVE SERVICE CASHIER Pulmonary embolism affecting in second trimester History of delivery, currently documented in this encounter Results * [facility] Comprehensive Single (04/12/2023 10:26 AM AUTOMOTIVE SERVICE CASHIER) Anatomical Region Laterality Modality Ultrasound 04/12/2023 9:24 AM AUTOMOTIVE SERVICE CASHIER Impressions 04/12/2023 3:24 PM AUTOMOTIVE SERVICE CASHIER IMPRESSION ----- 1. Barnett intrauterine at 19w [...] long and closed. Narrative 04/12/2023 3:24 PM AUTOMOTIVE SERVICE CASHIER ?Comprehensive ----- Pat. Name: ANDREWS CLEVELANDDARRIN ? Study Date: ??04/12/2023 9:24am Pat. NO: ??[id number] ?Referring ??: TRISTA MELLO Site: ??[facility] ? Spine Nurse: Edda Ayala RDMS : ??1995 ?Age: ?? [...] 0 lb 9 ?oz EFW by ?Hadlock ([id number]-IB-[id number]-FL) Head / Face / Neck Biometry: Propeller Engineer ? 6.4 ? mm CM ?1.7 ? [...] cava. Inferior vena cava. 3-vessel ? view. 2-imvltz-yteapuc view. Cardiac position. Cardiac size. Cardiac rhythm. [...] ----- Thank-you for referring your patient for [facility] consult & ultrasound assessment. I discussed [...] [place] Study Date: 04/12/2023 9:24am Pat. NO: [id number] Referring MD: TRISTA MELLO Site: [facility] Spine Nurse: Edda Ayala RDMS : 1995 Age: 27 [...] 0 lb 9 oz EFW by Hadlock ([id number]-MM-FL) Head / Face / Neck Biometry: Propeller Engineer 6.4 mm CM 1.7 mm Nasal bone [...] Superior venacava. Inferior vena cava. 3-vessel view. 4-mvjshb-mihcesi view.Cardiac position. Cardiac size. Cardiac rhythm. Right [...] ----- Thank-you for referring your patient for [facility] consult & ultrasoundassessment. I discussed the [...] the cervix appears long and closed. Ori HERNANDEZG [facility] US ORDERABL ES documented in this encounter Visit Diagnoses Diagnosis Pulmonary embolism affecting in second trimester History of delivery, currently with history of pre-term labor documented in this encounter Care Teams Network Programmer Relationship Specialty Start Date End Date No Ref-Primary, Physician PCP - General 03/31/23 documented as of this encounter
--- OUTSIDE RECORDS SUMMARY | 2023-07-08 14:50 | XMS_ITS | Encounter Summary ---
Author Name Unknown Organization [place] Address [address] [place] [address] Care Team Providers Care Edm Operator Name Role Phone No Ref-Primary, Physician Primary Care Provider Oleg Aparicio PA-C Unavailable [phone] Ana Oreilly MD Unavailable [phone] Reason for Visit * Reason Comments Ultrasound [id number] Encounter Details Date Type Department Care Team (Late st Contact Info) Description 06/21/2023 10:00 AM CDT Office Visit [facility] [place] [address] [facility] [address] [place] [address] Ori Adame MD [address] [facility] [address] [place] [address] Encounter for ultrasound to check [...] AM CDT Patient reports good movement, reports [place] contractions, denies leaking of fluid, or bleeding. SBAR given to [facility] MD, see their note in Epic. documented in this encounter Plan of Treatment Not on file documented as of this encounter Visit Diagnoses Diagnosis Encounter for ultrasound to check growth- Primary documented in this encounter Care Teams Edm Operator Relationship Specialty Start Date End Date No Ref-Primary, Physician PCP - General 03/31/23 Oleg Aparicio, PABrightC [address] [place], [place] [address] Assigned Cancer Care Provider 05/06/23 Ana Oreilly MD [address] [place], [place] [address] Assigned OBGYN Provider 05/06/23 documented as of this encounter
--- OUTSIDE RECORDS SUMMARY | 2023-07-08 14:50 | XMS_ITS | Encounter Summary ---
Author Name Unknown Organization [place] Address [address] [facility] [place] [address] Care Team Providers Care Film Drying Machine Operator Name Role Phone No Ref-Primary, Physician Primary Care Provider Oleg Aparicio PA-C Unavailable [phone] Ana Oreilly MD Unavailable [phone] Reason for Referral * Diagnostic Imaging Ultrasound (Routine) - Pending Review Specialty Diagnoses / Procedures Referred By Diana t Referred To Contact Radiology. Diagnoses related condition, antepartum Procedures MFM US Comprehensive Single F/U Ori Adame MD [address] [place] [address] Referral ID Status Reason Start Date Expiration Date V isits Requested Visits Authorized [id number] Pending Review 05/10/2023 05/09/2024 1 1 Reason for Visit * Reason Comments Ultrasound RL2/TV- Subopt anato my, hx PTD Encounter Details Date Type Department Care Team (Late st Contact Info) Description 05/10/2023 10:00 AM CDT Office Visit [facility] [place] [address] [facility] [address] [place] [phone] Ori Adame MD [address] [place] [address] Encounter for follow-up ultrasound of [...] details of today's US at the [facility]. Ori Adame MD Maternal- Medicine documented in this encounter Nursing Notes * Alma Soriano RN - 05/10/2023 10:00 AM CDT Patient reports positive movement, denies pain, denies contractions/pre- term labor, leaking of fluid, or bleeding. Patient denies headache, visual changes, nausea/vomiting, epigastric pain related to preeclampsia. Education provided to patient on RL2/TV. SBAR given to [facility] MD, see their note in Epic. Alma Soriano RN documented in this encounter Plan of Treatment Not on file documented as of this encounter Results * [facility] US Comprehensive Single F/U (05/31/2023 11:40 [...] ? Study Date: ??05/31/2023 10:49am Pat. NO: ??[id number] ?Referring ??MD: TRISTA MELLO Site: ??[facility] ? Certified Forklift Operator: Chanda Lazo RDMS : ??1995 ?Age: [...] lb 13 ? oz EFW by ?Hadlock ([id number]) Head / Face / Neck Biometry: Doula ? 5.7 ? mm CM ?7.7 ? mm ANATOMY ----- The following structures appear normal: Head / Neck ? Cranium. Head size. Head shape. Lateral ventricles. Midline falx. Cavum septi pellucidi. Cerebellum. Cisterna magna. Thalami. Heart / Thorax ?4-chamber view. RVOT view. LVOT view. 1-ppqorc-erwxrpa view. ? Diaphragm. Abdomen ? Stomach. Kidneys. [...] [place] Study Date: 05/31/2023 10:49am Pat. NO: [id number] Referring MD: TRISTA MELLO Site: [facility] Certified Forklift Operator: Chanda Lazo RDMS : 1995 Age: [...] 1 lb 13 oz EFW by Hadlock ([id number]) Head / Face / Neck Biometry: Doula 5.7 mm CM 7.7 mm ANATOMY ----- The following structures appear normal: Head / Neck Cranium. Head size. Head shape.Lateral ventricles. Midline falx. Cavum septi pellucidi. Cerebellum.Cisterna magna. Thalami. Heart / Thorax 4-chamber view. RVOT view. LVOT view.8-rftvwf-fxabkxq view. Diaphragm. Abdomen Stomach. Kidneys. Bladder. Spine [...] volume appeared normal. Ori Adame MD IMG MF US ORDERABL ES documented in this encounter Visit Diagnoses Diagnosis Encounter for follow-up ultrasound of anatomy- Primary History of delivery, currently with history of pre-term labor Encounter for ultrasound to assess growth Encounter for ultrasound to assess growth documented in this encounter Care Teams Film Drying Machine Operator Relationship Specialty Start Date End Date No Ref-Primary, Physician PCP - General 03/31/23 Oleg Aparicio PA-C [address] [place], [place] [address] Assigned Cancer Care Provider 05/06/23 Ana Oreilly MD [address] [facility] [address] [place], [place] [address] Assigned OBGYN Provider 05/06/23 documented as of this encounter
--- OUTSIDE RECORDS SUMMARY | 2023-07-08 14:50 | XMS_ITS | Encounter Summary ---
Author Name Unknown Organization [place] Address [address] [place] [address] Care Team Providers Care Milk Treater Name Role Phone No Ref-Primary, Physician Primary Care Provider Reason for Visit * Reason Comments [facility] * Consultation (Priority: 1-2 Weeks) - Pending Review Specialty Diagnoses / Procedures Referred By Contac t Referred To Contact Medical Oncology Diagnoses Pulmonary embolism affecting in second trimester Ana Oreilly MD [address] [facility] [address] [place] [address] Referral ID Status Reason Start Date Expiration Date V isits Requested Visits Authorized [id number] Pending Review 04/12/2023 04/11/2024 1 1 Encounter Details Date Type Department Care Team (Late st Contact Info) Description 04/28/2023 1:30 PM OPTICAL INSTRUMENT ASSEMBLER Office Visit [facility] [address] [place] [address] Ana Oreilly MD [address] [place] [address] Oleg Aparicio, PABrightC [address] [place] [address] Pulmonary embolism affecting in second [...] Comments Blood Pressure 113/69 04/28/2023 1:25 PM OPTICAL INSTRUMENT ASSEMBLER Pulse 72 04/28/2023 1:25 PM OPTICAL INSTRUMENT ASSEMBLER Temperature 36.7 ??C (98 ??F) 04/28/2023 1:25 PM OPTICAL INSTRUMENT ASSEMBLER Respiratory Rate - - Oxygen Saturation 98% 04/28/2023 1:25 PM OPTICAL INSTRUMENT ASSEMBLER Inhaled Oxygen Concentration - - Weight 68.9 kg (152 lb) 04/28/2023 1:25 PM OPTICAL INSTRUMENT ASSEMBLER Height 170.2 cm (5' 7) 04/28/2023 1:25 PM OPTICAL INSTRUMENT ASSEMBLER Body Mass Index 23.81 04/28/2023 1:25 PM OPTICAL INSTRUMENT ASSEMBLER documented in this encounter Progress Notes * Oleg Aparicio PA-C - 04/28/2023 1:30 PM CST Images from the original note were not included. [facility] [address] [place] [address] Main: [phone], Patient seen at: [facility] at [address] [place] [address] Outpatient Visit Note: Patient: Gabrielle Mcmahon : 1995 DEBORAH: April 28, 2023 Location of this race and sports book writer at the time of this clinic visit was conducted: [facility], [facility]. Location of the patient at the time of this clinic visit was conducted: [facility]. [...] the patient's pulmonary embolism was diagnosed at [facility] and I am unable to find any progress notes, H&P notes or discharge summary of this hospitalization in her records. I am able, however, to see some labs and imaging studies via [facility] Everywhere from [facility]. From what I can gather, Gabrielle [...] was performed. She then went to the [facility] emergency department on 03/08/2023 with chest [...] today, [facility] need [...] with her mother. Then on 04/22/2023, this race and sports book writer received a call from a nurse at [facility] and was inquiring about her enoxaparin dosing. At the time, this race and sports book writer was informed that her Anti-Xa level was subtherapeutic at I belief at 0.3 (again, I am not able to see any [facility]'s or systems notes. 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 Has not return to work as [...] a LMWH Anti-Xa level reported to this race and sports book writer from [facility] that was subtherapeutic. I will plan [...] weeks gestation) to be done at a [facility] so that we can get the [...] or concerns. Oleg Aparicio PA-C, MPAS Physician Chaplain [facility] [...] Time IN: 13:30 Time OUT: 14:15 CAL INSTRUMENT ASSEMBLER documented in this encounter Miscellaneous Notes * Addendum Note - Oleg Aparicio PA-C - 04/28/2023 1:30 PM CSTAddended by: OLEG APARICIO on: 04/28/2023 04:09 PM Modules accepted: Orders CAL INSTRUMENT ASSEMBLER documented in this encounter Plan of Treatment Not on file documented as of this encounter Procedures Procedure Name Priority Date/Time Associated Diagnosis Comments LOW MOLECULAR WEIGHT HEPARIN ANTI XA LEVEL Routine 04/28/2023 2:27 PM OPTICAL INSTRUMENT ASSEMBLER Pulmonary embolism affecting in second trimester documented [...] LAB - BLOOD ORDERABL ES [facility] [place] Core Lab [address] [facility], [address] * Beta 2 Glycoprotein 1 Antibody IgM (05/03/2023 1:03 PM CDT) Beta 2 Glycoprotein 1 Antibody IgM <2.4 <7.0 U/mL 05/04/2023 10:34 AM CDT SPECIALTY CORE/PROT/END O Comment:Negative Blood BLOOD SPECIMEN / Unknown Venipuncture / Unknown 05/03/2023 1:03 PM CDT 05/03/2023 1:03 PM CDT Oleg Aparicio PA-C LAB - BLOOD ORDERABL ES SPECIALTY CORE/PROT/ENDO Specialty Core/Prot/Endo [address] [facility], [address] * Beta 2 Glycoprotein 1 Antibody IgG (05/03/2023 1:03 PM CDT) Beta 2 Glycoprotein 1 Antibody IgG <0.8 <7.0 U/mL 05/04/2023 10:34 AM CDT SPECIALTY CORE/PROT/END O Comment:Negative Blood BLOOD SPECIMEN / Unknown Venipuncture / Unknown 05/03/2023 1:03 PM CDT 05/03/2023 1:03 PM CDT Oleg Aparicio PA-C LAB - BLOOD ORDERABL ES [facility] SPECIALTY CORE/PROT/ENDO Specialty Core/Prot/Endo [address] [facility], [address] * Cardiolipin Angie IgG and IgM [...] ES UM SPECIALTY CORE/PROT/ENDO Specialty Core/Prot/Endo [address] [facility], [address] * (ABNORMAL) Lupus Anticoagulant Panel (05/03/2023 [...] of an antiphospholipid syndrome, recommend anticardiolipin and ykxf-1-fscnanhfcvl n (IgG and IgM) antibody tests. Recommend [...] UM SPECIAL COAGULATION [facility] Special Coagulation [address] [facility], [address] [phone] * Low Molecular Weight Heparin Anti Xa [...] Address City/[facility]/ZIP Co de Phone Number [facility] LAB[facility] Core Lab [address] [facility], [address] [place] [address] * Low Molecular Weight Heparin Anti Xa Level (04/28/2023 2:27 PM OPTICAL INSTRUMENT ASSEMBLER) Anti Xa Low Molecular Weight 0.42 For Reference Range, See Comment IU/mL 04/28/2023 2:53 PM OPTICAL INSTRUMENT ASSEMBLER UR LABORATORY Blood STRUCTURE OF RIGHT UPPER LIMB / Unknown Venipuncture / Unknown 04/28/2023 2:27 PM OPTICAL INSTRUMENT ASSEMBLER 04/28/2023 2:41 PM OPTICAL INSTRUMENT ASSEMBLER Narrative UR LABORATORY - 04/28/2023 2:53 PM OPTICAL INSTRUMENT ASSEMBLER If collected 4-6 hours after administration: Adults: If administered only once daily with a dose of 1.5 mg/k.0-2.0 IU/mL. If administered twice daily with a dose of 1 mg/k.50-1.0 IU/mL. Pediatrics: If administered twice daily: 0.50-1.0 IU/mL. Oleg Aparicio PA-C LAB - BLOOD ORDERABL ES UR LABORATORY [facility] Acute Care Lab [address] [facility], [address] [place] [address], [facility] [phone] documented in this encounter Visit Diagnoses Diagnosis Pulmonary embolism affecting in second trimester- Primary Family history of blood clots Family history of other blood disorders documented in this encounter Care Teams Milk Treater Relationship Specialty Start Date End Date No Ref-Primary, Physician PCP - General 03/31/23 documented as of this encounter
--- OUTSIDE RECORDS SUMMARY | 2023-07-08 14:51 | XMS_ITS | Clinical Summary ---
Author Name Unknown Organization [facility] Address [place], [place] [address] Care Team Providers Care Adviser Sales Name Role Phone Marybeth Andrew MD Primary [...] Procedure Name Priority Date/Time Associated Diagnosis Comments APPLICATIONS INTERN THIN PREP PAP SCREEN IMAGED Routine 12/11/2020 2:40 PM CDT from Last 3 Months or Most Recently Relevant to Health Maintenance Results * APPLICATIONS INTERN THIN PREP PAP SCREEN IMAGED (12/11/2020 2:40 PM CDT) Pathologist [facility] Case Report Gynecologic Cytology Report ? Case: [id number] ? Authorizing Provider: ??Elizabeth Philip ?Collected: ? 12/11/2020 1440 ? [place], ? Ordering Location: ? [facility] ?Received: ?12/15/2020 0858 ? First Screen: ?Baccam, Minie ? Specimen: ?APPLICATIONS INTERN ThinPrep Vial Screening, Cervical/Vaginal ? 12/26/2020 2:03 PM CDT [facility] INTERPRETATION/ RESULT NEGATIVE FOR INTRAEPITHELIAL LESION OR MALIGNANCY (NIL) (none) 12/26/2020 2:03 PM CDT [facility] IMEN ADEQUACY Satisfactory for evaluation No endocervical component seen 12/26/2020 2:03 PM CDT [facility] HPV REQUEST HPV if ASCUS 12/26/2020 2:03 PM CDT [facility] Date of LMP 11/04/2020 12/26/2020 2:03 PM CDT [facility] Menstrual Status 12/26/2020 2:03 PM CDT [facility] Additional Information 12/26/2020 2:03 PM CDT [facility] Comment: Interpreted at [facility] - [address], [place] [address] Automated Review Successful 12/26/2020 2:03 PM CDT [facility] Comment:Specimen processed s uccessfully by automated av specialist device, ThinPrep Imaging System, [employer] Note The pap test is a [...] and malignant lesions. 12/26/2020 2:03 PM CDT [facility] Other (Cervical/Vagina l) 12/11/2020 2:40 PM CDT 12/15/2020 8:58 AM CDT Elizabeth Philip MD PATHOLOGY/ CYTOLOGY [facility] [address] [place] [address] [address] [place] [address], from Last 3 Months or Most Recently Relevant to Health Maintenance Care Teams Adviser Sales Relationship Specialty Start Date End Date Marybeth Andrew MD [address] [place] [address] PCP - General Family Practice 08/20/22
--- OUTSIDE RECORDS SUMMARY | 2023-07-08 14:51 | XMS_ITS ---
Author Name Unknown Organization [facility] Address [address] [place] [address] Care Team Providers Care Toolmaker Name Role Phone Unavailable Unavailable Unavailable Surgery Details Not on file Complications Check Surgery Details section. Procedure Estimated Blood Loss Check Surgery Details section. Procedure Findings Check Surgery Details section. Procedure Specimens Taken Check Surgery Details section.
--- OUTSIDE RECORDS SUMMARY | 2023-07-08 14:51 | XMS_ITS | Clinical Summary ---
Author Name Unknown Organization [facility] Address [address] [place] [address] Care Team Providers Care Collar Stitcher Name Role Phone Elsewhere, Pcp Primary Care Provider Unavailabl e Source Comments Patient records contain information from all sites at [facility]. For routine questions regarding patient records, call [phone] during business hours, M-F 8:00 AM - 5:00 PM Central Time. Record requests for emergency care only can be directed to [phone] at any time.[facility] Allergies No known active allergies Medications Medication Sig Dispensed Refills Start Date End Date Status gsaaqql-Qo-krjr-FA (VINATE ONE) 60 mg iron-1 mg per [...] week 02/21/2022 How often do you attend [facility] or holiness services? More than 4 times per year 02/21/2022 Do you belong to any clubs o r organizations such as episcopal groups, unions, fraternal or athletic groups, or [...] and heating? Not hard at all 02/21/2022 [facility] [place] of Occupat ional Health - Occupational Stress [...] place to sleep or slept in a intermediate (including now)? No 02/21/2022 Nutrition Answer Date [...] Assigned at Female 02/21/2022 11:00 AM DIRECTOR ACUTE Gender Identity Female 02/21/2022 11:00 AM DIRECTOR ACUTE Sexual Orientation Straight 02/21/2022 11 :00 AM DIRECTOR ACUTE Last Filed Vital Signs Vital Sign Reading Time Taken Comments Blood Pressure - - Pulse - - Temperature 36.6 ??C (97.9 ??F) 02/24/2022 12:[address] Respiratory Rate - - Oxygen Saturation - - Inhaled Oxygen Concentration - - Weight 72.4 kg (159 lb 9.8 oz) 02/24/2022 12:38 PM DIRECTOR ACUTE Height 169.7 cm (5' 6.81) 02/24/2022 12:[address] Body Mass Index 25.14 02/24/2022 12:38 PM DIRECTOR ACUTE Plan of Treatment Health Maintenance Due Date [...] age to complete this topic Care Teams Collar Stitcher Relationship Specialty Start Date End Date Elsewhere, Pcp PCP - General Internal Medicine 02/24/22
--- OUTSIDE RECORDS SUMMARY | 2023-07-08 14:51 | XMS_ITS | Referral Summary ---
Author Name Unknown Organization [facility] Address [address] [place] [address] Care Team Providers Care Ordinary Seaman Name Role Phone Elsewhere, Pcp Primary Care Provider Unavailabl e Source Comments Patient records contain information from all sites at [facility]. For routine questions regarding patient records, call [phone] during business hours, M-F 8:00 AM - 5:00 PM Central Time. Record requests for emergency care only can be directed to [phone] at any time.[facility] Allergies No known active allergies Medications Medication Sig Dispensed Refills Start Date End Date Status [id number]-[id number]-FA (VINATE ONE) 60 mg iron-1 mg per [...] How often do you attend chur or pentecostalism services? More than 4 times per year 02/21/2022 Do you belong to any clubs o r organizations such as presybeterian groups, unions, fraternal or athletic groups, or [...] and heating? Not hard at all 02/21/2022 [facility] of Occupat ional Health - Occupational Stress [...] place to sleep or slept in a mcfp (including now)? No 02/21/2022 Nutrition Answer Date [...] Sex Assigned at Female 02/21/2022 11:00 AM TOWN PLANNER Gender Identity Female 02/21/2022 11:00 AM TOWN PLANNER Sexual Orientation Straight 02/21/2022 11 :00 AM TOWN PLANNER Last Filed Vital Signs Vital Sign Reading Time Taken Comments Blood Pressure - - Pulse - - Temperature 36.6 ??C (97.9 ??F) 02/24/2022 12:[address] Respiratory Rate - - Oxygen Saturation - - Inhaled Oxygen Concentration - - Weight 72.4 kg (159 lb 9.8 oz) 02/24/2022 12:38 PM TOWN PLANNER Height 169.7 cm (5' 6.81) 02/24/2022 12:[address] Body Mass Index 25.14 02/24/2022 12:38 PM TOWN PLANNER Plan of Treatment Not on file Care Teams Ordinary Seaman Relationship Specialty Start Date End Date Elsewhere, Pcp PCP - General Internal Medicine 02/24/22
--- OUTSIDE RECORDS SUMMARY | 2023-07-08 14:51 | XMS_ITS | Encounter Summary ---
Author Name Unknown Organization [facility] Address [address] [facility] [place] [address] Care Team Providers Care Boring And Filling Machine Operator Name Role Phone No Ref-Primary, Physician Primary Care Provider Reason for Referral * Diagnostic Imaging Ultrasound (Routine) - Pending Review Specialty Diagnoses / Procedures Referred By Contac t Referred To Contact Radiology. Diagnoses Pulmonary embolism affecting in second trimester Procedures [facility] US Comprehensive Single F/U Ana Oreilly MD [address] [place] [address] Referral ID Status Reason Start Date Expiration Date V isits Requested Visits Authorized [id number] Pending Review 04/12/2023 04/11/2024 1 1 TURE COIL WINDER * Consultation (Priority: 1-2 Weeks) - Pending Review Specialty Diagnoses / Procedures Referred By Contsandy t Referred To Contact Medical Oncology Diagnoses Pulmonary embolism affecting in second trimester Ana Oreilly MD [address] [place] [address] Referral ID Status Reason Start Date Expiration Date V isits Requested Visits Authorized [id number] Pending Review 04/12/2023 04/11/2024 1 1 Question Answer My Clinical Question Is: Pt is and had bilateral PE 03/08 in [facility] Pt is on Lovenox 60 mg BID. Pt needs clotting work up and Lovenox mgt If you have additional clinical questions which require a provider discussion, please call [phone]. Ask for the Chemo only medicine physician. Reason for Referral: Bleeding and Clotting Scheduling Instructions: [facility] will call you to coordinate your care as prescribed by the provider. If you don? t hear from a claims service representative within 2 business days, please call Comments Please be aware that coverage of these services is subject to the terms and limitations of your health insurance plan. Call member services at your health plan with any benefit or coverage questions. [facility] will call you to coordinate your care as prescribed by the provider. If you don? t hear from a claims service representative within 2 business days, please call TURE COIL WINDER Reason for Visit * Reason Comments Ultrasound [...] MD [address] [place] [address] Referral ID Status Reason Start Date Expiration Date V isits Requested Visits Authorized [id number] Pending Review 03/10/2023 03/09/2024 1 1 Encounter Details Date Type Department Care Team (Late st Contact Info) Description 04/12/2023 10:15 AM ARMATURE COIL WINDER Office Visit [facility] Maternal Medicine Center [place] [address] [place] [address] Ana Oreilly MD [address] [place], [place] [id number] Pulmonary embolism affecting in second trimester (Primary [...] - Respiratory Rate 20 04/12/2023 10:58 AM ARMATURE COIL WINDER Oxygen Saturation 97% 04/12/2023 10:58 AM ARMATURE COIL WINDER room air Inhaled Oxygen Concentration - - Weight 65.9 kg (145 lb 4.8 oz) 04/12/2023 10:58 AM ARMATURE COIL WINDER Height 170.2 cm (5' 7) 04/12/2023 10:58 AM ARMATURE COIL WINDER Body Mass Index 22.76 04/12/2023 10:58 AM ARMATURE COIL WINDER documented in this encounter Progress Notes * Ama Yadav MD - 04/12/2023 10:15 AM CST Images from the original note were not included. Maternal- Medicine Consultation Gabrielle Cleveland : 1995 Rerferral: Gabrielle Cleveland is a 27 year old sent by Dr. Tolentino from [facility] for MFM consultation. HPI Gabrielle Cleveland is [...] this has been with Dr. Tolentino from [facility]. OB History Para Term AB Living 2 [...] anti-Xa level, which will be coordinated at [facility], but is also ordered standing in the [facility] system if she is unable to obtain [...] patient. Ama Yadav MD Maternal Medicine Fellow [facility] Attending Attestation I have seen and evaluated [...] medical record, and communicating with other health healthcare consultant and/or care coordination.Please see her note for specific details; I have made the necessary edits/additions. The patient was also seen for an ultrasound in the Maternal- Medicine Center at the [facility] today. For a detailed report of the ultrasound examination, please see the ultrasound report which can be found under the imaging tab. Ana Oreilly MD Maternal Medicine Physician TURE COIL WINDER documented in this encounter Nursing Notes * Elaina Cano RN - 04/12/2023 10:15 AM CST Pt here for L2/consult d/t hx of PE in this . Pt notes intermittent right sided focal sharp pain/tenderness at fold recently. Questions whether this is related to cyst noted on prior ultrasound. Report given to filters assembler prior to scanning. Pt also recalls history of PPROM as spontaneous rupture at home at approximately 36 wks, no signs of labor other than vague feeling of something being off night prior. occurred within 2 hours of rupture. Added TV to ultrasound per protocol. Gabrielle was seen in [facility] today for Comp and MFM consult due to h/o PE in this . Pt has not followed up on any labs and hasn't met with hematology yet. . Dr. Oreilly and Dr. Yadav into see patient. Pt to have XA level at [facility] tomorrow and this was communicated to RN at . Pt to have 2 week TV at [facility] and then F/U comp/TV in 4 weeks at [facility]. Pt also had heme consult placed for 1-2 weeks. Please see [facility] consult note for recommendations. Patient was discharged ambulatory and stable. TURE COIL WINDER documented in this encounter Plan of Treatment Scheduled Referrals Name Type Priority Associated Diagnoses Orde r Schedule Adult Oncology/Hematology Hardware Developer Referral Referral Priority: 1-2 Weeks Pulmonary embolism affecting in second trimester Expected: 04/12/2023 (Approximate), Expires: 04/12/2024 documented as of this encounter Results * M US Comprehensive [...] ? Study Date: ??05/10/2023 9:30am Pat. NO: ??[id number] ?Referring ??: TRISTA MELLO Site: ??[facility] ? Sex Therapist: Yamel Hill RDMS : ??1995 ?Age: ?? [...] ? 1 lb 2 ?oz EFW by ?[facility] ([id number]) Head / Face / Neck Biometry: Plan Examiner ? 6.2 ? mm CM ?3.8 ? mm Nasal bone ? 7.0 ? mm ANATOMY ----- The following structures appear normal: Head / Neck ? Cranium. Head size. Head shape. Lateral ventricles. Midline falx. Cavum septi pellucidi. Cerebellum. Cisterna magna. Thalami. Face ? Lips. Profile. Nose. Maxilla. Mandible. Heart / Thorax ?4-chamber view. RVOT view. LVOT view. Situs. 4-vfeigp-kbbgsbc view. ? Diaphragm. Abdomen ? Stomach. Kidneys. [...] the 15%tile we will reassess growth at [facility] in 3 weeks. Return to primary provider [...] [place] Study Date: 05/10/2023 9:30am Pat. NO: [id number] Referring MD: TRISTA MELLO Site: [facility] Sex Therapist: Yamel Hill RDMS : 1995 Age: 27 [...] 1 lb 2 oz EFW by [facility] ([id number]) Head / Face / Neck Biometry: Plan Examiner 6.2 mm CM 3.8 mm Nasal bone 7.0 mm ANATOMY ----- The following structures appear normal: Head / Neck Cranium. Head size. Head shape.Lateral ventricles. Midline falx. Cavum septi pellucidi. Cerebellum.Cisterna magna. Thalami. Face Lips. Profile. Nose. Maxilla.Mandible. Heart / Thorax 4-chamber view. RVOT view. LVOT view.Situs. 3-nmgxmw-vzgbgey view. Diaphragm. Abdomen Stomach. Kidneys. Bladder. Spine [...] the 15%tile we will reassess growth at [facility] in 3weeks. Return to primary provider for [...] length with no funneling. Ana Oreilly MD G [facility] US ORDERABLE S documented in this encounter Visit Diagnoses Diagnosis Pulmonary embolism affecting in second trimester- Primary History of delivery, currently with history of pre-term labor Pulmonary embolism affecting in second trimester documented in this encounter Care Teams Boring And Filling Machine Operator Relationship Specialty Start Date End Date No Ref-Primary, Physician PCP - General 03/31/23 documented as of this encounter
== END 2023-07-08 14:47 | disposition home or self-care (01) ==
LOC: NFLDREF 14:48
PROVIDERS: PCP Family Medicine; Visit Provider Advanced Practice Midwife
DX: N89.8 Other specified noninflammatory disorders of vagina (principal); R39.9 Unspecified symptoms and signs involving the genitourinary system
CPT/HCPCS: 87086

== ENCOUNTER 2023-07-14 13:45 | Outpatient (CLI) | payer BC, SELFPAY ==
--- OUTSIDE RECORDS SUMMARY | 2023-07-14 13:48 | XMS_ITS | Clinical Summary ---
Author Organization [facility] Address [address] [facility] [place] [address] Care Team Providers Care Clinical Partner Name Role Phone No Ref-Primary, Physician Primary Care Provider Oleg Aparicio PA-C Unavailable [phone] Ana Oreilly MD Unavailable [phone] Allergies No known active allergies Medications [...] 2:30 PM CDT Office Visit [facility] [address] [place] [address] Oleg Aparicio PA-C Pulmonary embolism affecting in second trimester (Primary Dx); Family history of blood clots; 31 weeks gestation of 07/04/2023 Travel 06/22/2023 2:00 PM CDT Lab [facility] [address] [place] [address] Pulmonary embolism affecting in second trimester 06/22/[address] [facility] [address] [place] [address] Oleg Aparicio PA-C 06/21/2023 10:00 AM CDT Office Visit [facility] Medicine [place] [address] [place] [address] Ori Adame MD Encounter for ultrasound to check growth (Primary Dx) 06/21/2023 9:30 AM CDT - 06/21/2023 11:59 PM CDT Hospital Encounter [facility] Medicine [place] [address] [place] [address] Ori Adame MD Encounter for ultrasound to check growth Discharge Disposition: Home or Self Care 06/21/2023 Travel 05/31/2023 11:30 AM CDT Office Visit [facility] Medicine [facility] [address] [place] [address] Ori Adame MD Encounter for ultrasound to check growth (Primary Dx) 05/31/2023 10:45 AM CDT - 05/31/2023 11:59 PM CDT Hospital Encounter [facility] Medicine [facility] [address] [place] [address] Ori Adame MD Encounter for ultrasound to assess growth Discharge Disposition: Home or Self Care 05/31/2023 Travel 05/10/2023 10:00 AM CDT Office Visit [facility] Maternal Medicine [facility] [address] [facility] [address] [place] [address] Ori Adame MD Encounter for follow-up ultrasound of anatomy (Primary Dx); History of delivery, currently ; Encounter for ultrasound to assess growth 05/10/2023 9:28 AM CDT - 05/10/2023 11:59 PM CDT Hospital Encounter [facility] Maternal Medicine [facility] [address] [facility] [address] [place] [address] Ori Adame MD Pulmonary embolism affecting in second trimester Discharge Disposition: Home or Self Care 05/10/2023 Travel 05/03/2023 1:00 PM CDT Lab [facility] [address] [place] [address] Pulmonary embolism affecting in second trimester; Family history of blood clots 04/28/2023 1:30 PM PAINT LINE SUPERVISOR Office Visit [facility] [place] [phone] Ana Oreilly MD Chan, Ricky Y, PA-C Pulmonary embolism affecting in second trimester (Primary Dx); Family history of blood clots 04/28/[address] [facility] [address] [place] [phone] Carmen Pollack RN 04/28/[address] [facility] [address] [place] [phone] Oleg Aparicio PA-C 04/28/2023 Travel 04/27/2023 Travel from Last 3 Months Immunizations Name [...] Respiratory Rate 20 04/12/2023 10:5 8 AM PAINT LINE SUPERVISOR Oxygen Saturation 97% 07/04/2023 2:28 PM CDT [...] CDT Pulmonary embolism affecting in second trimester [facility] US COMPREHENSIVE SINGLE F/U Routine 06/21/2023 10:50 AM CDT Encounter for ultrasound to check growth [facility] US COMPREHENSIVE SINGLE F/U Routine 05/31/2023 11:40 AM CDT Encounter for ultrasound to assess growth [facility] US COMPREHENSIVE SINGLE F/U Routine [...] ANTI XA LEVEL Routine 04/28/2023 2:27 PM PAINT LINE SUPERVISOR Pulmonary embolism affecting in second trimester from Last 3 Months Results * Low Molecular Weight Heparin Anti Xa Level (06/22/2023 1:58 PM CDT) Only the most recent of3 resultswithin the time period is included. Anti Xa Low Molecular Weight 0.58 For Reference Range, See Comment IU/mL 06/22/2023 9:38 PM CDT [facility] Blood BLOOD SPECIMEN / Unknown Venipuncture / Unknown 06/22/2023 1:58 PM CDT 06/22/2023 1:58 PM CDT [facility] - 06/22/2023 9:38 PM CDT If collected 4-6 hours after administration: Adults: If administered only once daily with a dose of 1.5 mg/k.0-2.0 IU/mL. If administered twice daily with a dose of 1 mg/k.50-1.0 IU/mL. Pediatrics: If administered twice daily: 0.50-1.0 IU/mL. Oleg Aparicio PA-C LAB - BLOOD ORDERABL ES [facility] Core Lab [address] [facility], [address] [place] [address] * [facility] Comprehensive Single F/U (06/21/2023 10:50 AM [...] ? Study Date: ??06/21/2023 9:50am Pat. NO: ??[id number] ?Referring ??MD: TRISTA MELLO Site: ??[facility] ? Protection Analyst: Chanda Lazo RDMS : ??1995 ?Age: ?? [...] 2 lb 12 ?oz EFW by ?[facility] ([id number]) Head / Face / Neck Biometry: Strip Deburrer ? 4.9 ? mm CM ?5.5 ? mm ANATOMY ----- The following structures appear normal: Head / Neck ? Cranium. Head size. Head shape. Lateral ventricles. Midline falx. Cerebellum. Cisterna magna. Thalami. Face ? Lips. Profile. Nose. Heart / Thorax ?4-chamber view. RVOT view. LVOT view. 0-fymjaa-kpmipoi view. ? Diaphragm. Abdomen ? Stomach. Kidneys. [...] [place] Study Date: 06/21/2023 9:50am Pat. NO: [id number] Referring MD: TRISTA MELLO Site: [facility] Protection Analyst: Chanda LazoMELLY : 1995 Age: 28 ----- INDICATION ----- [...] 2 lb 12 oz EFW by [facility] ([id number]) Head / Face / Neck Biometry: Strip Deburrer 4.9 mm CM 5.5 mm ANATOMY ----- The following structures appear normal: Head / Neck Cranium. Head size. Head shape.Lateral ventricles. Midline falx. Cerebellum. Cisterna magna. Thalami. Face Lips. Profile. Nose. Heart / Thorax 4-chamber view. RVOT view. LVOT view.1-ckfghz-jyystbj view. Diaphragm. Abdomen Stomach. Kidneys. Bladder. Spine [...] [facility] SPECIALTY CORE/PROT/ENDO UM Specialty Core/Prot/Endo [address] [facility] [address] [facility], [address] * Beta 2 Glycoprotein 1 Antibody IgM (05/03/2023 1:03 PM CDT) Beta 2 Glycoprotein 1 Antibody IgM <2.4 <7.0 U/mL 05/04/2023 10:34 AM CDT SPECIALTY CORE/PROT/END O Comment:Negative Blood BLOOD SPECIMEN / Unknown Venipuncture / Unknown 05/03/2023 1:03 PM CDT 05/03/2023 1:03 PM CDT Olge OREILLY-Katrin LAB - BLOOD ORDERABL ES UM SPECIALTY CORE/PROT/ENDO Specialty Core/Prot/Endo [address] [facility], [address] * Beta 2 Glycoprotein 1 Antibody IgG (05/03/2023 1:03 PM CDT) Beta 2 Glycoprotein 1 Antibody IgG <0.8 <7.0 U/mL 05/04/2023 10:34 AM CDT SPECIALTY CORE/PROT/END O Comment:Negative Blood BLOOD SPECIMEN / Unknown Venipuncture / Unknown 05/03/2023 1:03 PM CDT 05/03/2023 1:03 PM CDT Oleg OREILLY-C LAB - BLOOD ORDERABL ES [facility] SPECIALTY CORE/PROT/ENDO Specialty Core/Prot/Endo [address] [facility] [address] [facility], [address] * (ABNORMAL) Lupus Anticoagulant Panel [...] of an antiphospholipid syndrome, recommend anticardiolipin and vcai-2-xgmsjreulgc n (IgG and IgM) antibody tests. Recommend [...] UM SPECIAL COAGULATION UM Special Coagulation [address] [facility], [address] [place] [address], [facility] from Last 3 Months Care Teams Clinical Partner Relationship Specialty Start Date End Date No Ref-Primary, Physician PCP - General 03/31/23 Oleg Aparicio, PA-C [address] [place] [address] [address] [place] [address] Assigned Cancer Care Provider 05/06/23 Ana Oreilly MD [address] [place] [address] [address] [place] [address] Assigned OBGYN Provider 05/06/23
--- OUTSIDE RECORDS SUMMARY | 2023-07-14 13:49 | XMS_ITS | Encounter Summary ---
Author Organization [facility] Address [address] [facility] [place] [address] Care Team Providers Care Vice President Of Software Engineering Name Role Phone No Ref-Primary, Physician Primary Care Provider Reason for Referral * Diagnostic Imaging Ultrasound (Routine) - Pending Review Specialty Diagnoses / Procedures Referred By Contac t Referred To Contact Radiology. Diagnoses Pulmonary embolism affecting in second trimester History of delivery, currently Procedures [facility] Ori Jerome MD [address] [place], [place] [address] Referral ID Status Reason Start Date Expiration Date V isits Requested Visits Authorized [id number] Pending Review 03/10/2023 03/09/2024 1 1 ONNEL SECURITY SPECIALIST Reason for Visit * Diagnostic Imaging Ultrasound (Routine) - Pending Review Specialty Diagnoses / Procedures Referred By Contac t Referred To Contact Radiology. Diagnoses Pulmonary embolism affecting in second trimester History of delivery, currently Procedures [facility] Ori Jerome MD [address] [facility] [address] [place] [address] Referral ID Status Reason Start Date Expiration Date V isits Requested Visits Authorized [id number] Pending Review 03/10/2023 03/09/2024 1 1 Encounter Details Date Type Department Care Team (Latest Contact Info) Description 04/12/2023 9:11 AM PERSONNEL SECURITY SPECIALIST - 04/12/2023 11:59 PM PERSONNEL SECURITY SPECIALIST Hospital Encounter [facility] M[facility] Medicine [facility] [place] [address] [place] [address] Ana Oreilly MD [address] [place] [address] Pulmonary embolism affecting in second trimester; History [...] Procedure Name Priority Date/Time Associated Diagnosis Comments [facility] COMPREHENSIVE SINGLE Routine 04/12/2023 10:26 AM PERSONNEL SECURITY SPECIALIST Pulmonary embolism affecting in second trimester History of delivery, currently documented in this encounter Results * [facility] Comprehensive Single (04/12/2023 10:26 AM PERSONNEL SECURITY SPECIALIST) Anatomical Region Laterality Modality Ultrasound 04/12/2023 9:24 AM PERSONNEL SECURITY SPECIALIST Impressions 04/12/2023 3:24 PM PERSONNEL SECURITY SPECIALIST IMPRESSION ----- 1. Barnett intrauterine at 19w [...] long and closed. Narrative 04/12/2023 3:24 PM PERSONNEL SECURITY SPECIALIST ?Comprehensive ----- Pat. Name: GABRIELLE [place] ? Study Date: ??04/12/2023 9:24am Pat. NO: ??[id number] ?Referring ??MD: TRISTA MELLO Site: ??[facility] ? Product Mgr: Edda Ayala RDMS : ??1995 ?Age: ?? [...] 0 lb 9 ?oz EFW by ?[facility] ([id number]) Head / Face / Neck Biometry: Sailor ? 6.4 ? mm CM ?1.7 ? [...] cava. Inferior vena cava. 3-vessel ? view. 9-ivqygj-tzzyyua view. Cardiac position. Cardiac size. Cardiac rhythm. [...] [place] Study Date: 04/12/2023 9:24am Pat. NO: [id number] Referring MD: TRISTA MELLO Site: [facility] Product Mgr: Edda Ayala RDMS : 1995 Age: 27 [...] 0 lb 9 oz EFW by [facility] ([id number]) Head / Face / Neck Biometry: Sailor 6.4 mm CM 1.7 mm Nasal bone [...] Superior venacava. Inferior vena cava. 3-vessel view. 2-watrwr-rifnchv view.Cardiac position. Cardiac size. Cardiac rhythm. Right [...] ----- Thank-you for referring your patient for [facility] consult & ultrasoundassessment. I discussed the findings [...] cervix appears long and closed. Ori HERNANDEZG [facility] US ORDERABL ES documented in this encounter Visit Diagnoses Diagnosis Pulmonary embolism affecting in second trimester History of delivery, currently with history of pre-term labor documented in this encounter Care Teams Vice President Of Software Engineering Relationship Specialty Start Date End Date No Ref-Primary, Physician PCP - General 03/31/23 documented as of this encounter
--- OUTSIDE RECORDS SUMMARY | 2023-07-14 13:49 | XMS_ITS | Encounter Summary ---
Author Organization [place] Address [address] [facility] [place] [address] Care Team Providers Care Expanded Duty Dental Assistant Name Role Phone No Ref-Primary, Physician Primary Care Provider Reason for Referral * Diagnostic Imaging Ultrasound (Routine) - Pending Review Specialty Diagnoses / Procedures Referred By Contac t Referred To Contact Radiology. Diagnoses Pulmonary embolism affecting in second trimester Procedures [facility] US Comprehensive Single F/U Ana Oreilly MD [address] [employer] [address] [place] [address] Referral ID Status Reason Start Date Expiration Date V isits Requested Visits Authorized [id number] Pending Review 04/12/2023 04/11/2024 1 1 ING PIPE DRILLER AND THREADER * Consultation (Priority: 1-2 Weeks) - Pending Review Specialty Diagnoses / Procedures Referred By Contsandy t Referred To Contact Medical Oncology Diagnoses Pulmonary embolism affecting in second trimester Ana Oreilly MD [address] [employer] [address] [place] [address] Referral ID Status Reason Start Date Expiration Date V isits Requested Visits Authorized [id number] Pending Review 04/12/2023 04/11/2024 1 1 Question Answer My Clinical Question Is: Pt is and had bilateral PE 03/08 in [place] Pt is on Lovenox 60 mg BID. Pt needs clotting work up and Lovenox mgt If you have additional clinical questions which require a provider discussion, please call [phone]. Ask for the Chemo only medicine physician. Reason for Referral: Bleeding and Clotting Scheduling Instructions: [facility] will call you to coordinate your care as prescribed by the provider. If you don? t hear from a inside sales representative within 2 business days, please call Comments Please be aware that coverage of these services is subject to the terms and limitations of your health insurance plan. Call member services at your health plan with any benefit or coverage questions. [facility] will call you to coordinate your care as prescribed by the provider. If you don? t hear from a inside sales representative within 2 business days, please call ING PIPE DRILLER AND THREADER Reason for Visit * Reason Comments Ultrasound L2/TV - hx bilateral PE (this ), hx PROM Consult L2- hx bilateral PE (this ), hx PROM * Consultation (Routine: Next available opening) - Pending Review Specialty Diagnoses / Procedures Referred By Contac t Referred To Contact Diagnoses Pulmonary embolism affecting in second trimester History of delivery, currently Ori Adame MD [address] [place] [address] Referral ID Status Reason Start Date Expiration Date V isits Requested Visits Authorized [id number] Pending Review 03/10/2023 03/09/2024 1 1 Encounter Details Date Type Department Care Team (Late st Contact Info) Description 04/12/2023 10:15 AM SMOKING PIPE DRILLER AND THREADER Office Visit [facility] Maternal Medicine Center [place] [address] [place] [address] Ana Oreilly MD [address] [place], [place] [address] Pulmonary embolism affecting in second trimester (Primary [...] - Respiratory Rate 20 04/12/2023 10:58 AM SMOKING PIPE DRILLER AND THREADER Oxygen Saturation 97% 04/12/2023 10:58 AM SMOKING PIPE DRILLER AND THREADER room air Inhaled Oxygen Concentration - - Weight 65.9 kg (145 lb 4.8 oz) 04/12/2023 10:58 AM SMOKING PIPE DRILLER AND THREADER Height 170.2 cm (5' 7) 04/12/2023 10:58 AM SMOKING PIPE DRILLER AND THREADER Body Mass Index 22.76 04/12/2023 10:58 AM SMOKING PIPE DRILLER AND THREADER documented in this encounter Progress Notes * Ama Yadav MD - 04/12/2023 10:15 AM CST Images from the original note were not included. Maternal- Medicine Consultation Gabrielle Cleveland : 1995 Rerferral: Gabrielle Cleveland is a 27 year old sent by Dr. Tolentino from [facility] for MFM consultation. HPI Gabrielle Cleveland is [...] this has been with Dr. Tolentino from [facility]. OB History Para Term AB Living 2 [...] anti-Xa level, which will be coordinated at [place], but is also ordered standing in the [place] system if she is unable to obtain [...] patient. Ama Yadav MD Maternal Medicine Fellow [facility] Attending Attestation I have seen and evaluated [...] medical record, and communicating with other health care information associate and/or care coordination.Please see her note for specific details; I have made the necessary edits/additions. The patient was also seen for an ultrasound in the Maternal- Medicine Center at the [facility] today. For a detailed report of the ultrasound examination, please see the ultrasound report which can be found under the imaging tab. Ana Oreilly MD Maternal Medicine Physician ING PIPE DRILLER AND THREADER documented in this encounter Nursing Notes * Elaina Cano RN - 04/12/2023 10:15 AM CST Pt here for L2/consult d/t hx of PE in this . Pt notes intermittent right sided focal sharp pain/tenderness at fold recently. Questions whether this is related to cyst noted on prior ultrasound. Report given to automotive welder prior to scanning. Pt also recalls history of PPROM as spontaneous rupture at home at approximately 36 wks, no signs of labor other than vague feeling of something being off night prior. occurred within 2 hours of rupture. Added TV to ultrasound per protocol. Gabrielle was seen in [facility] Clinic today for Comp and MFM consult due to h/o PE in this . Pt has not followed up on any labs and hasn't met with hematology yet. . Dr. Oreilly and Dr. Yadav into see patient. Pt to have XA level at [place] tomorrow and this was communicated to RN at . Pt to have 2 week TV at [place] and then F/U comp/TV in 4 weeks at [facility]. Pt also had heme consult placed for 1-2 weeks. Please see [facility] consult note for recommendations. Patient was discharged ambulatory and stable. ING PIPE DRILLER AND THREADER documented in this encounter Plan of Treatment Scheduled Referrals Name Type Priority Associated Diagnoses Orde r Schedule Adult Oncology/Hematology Wallboard Worker Referral Referral Priority: 1-2 Weeks Pulmonary embolism [...] ? Study Date: ??05/10/2023 9:30am Pat. NO: ??[id number] ?Referring ??: TRISTA MELLO Site: ??[facility] ? [employer] Measurer: Yamel Hill RDMS : ??1995 ?Age: ?? [...] ? 1 lb 2 ?oz EFW [facility] ?[facility] ([id number]) Head / Face / Neck Biometry: Rod Straightener ? 6.2 ? mm CM ?3.8 ? mm Nasal bone ? 7.0 ? mm ANATOMY ----- The following structures appear normal: Head / Neck ? Cranium. Head size. Head shape. Lateral ventricles. Midline falx. Cavum septi pellucidi. Cerebellum. Cisterna magna. Thalami. Face ? Lips. Profile. Nose. Maxilla. Mandible. Heart / Thorax ?4-chamber view. RVOT view. LVOT view. Situs. 0-meeite-bnuogsv view. ? Diaphragm. Abdomen ? Stomach. Kidneys. [...] [place] Study Date: 05/10/2023 9:30am Pat. NO: [id number] Referring MD: TRISTA MELLO Site: [facility] [employer] Measurer: Yamel Hill RDMS : 1995 Age: 27 [...] 1 lb 2 oz EFW by Hadlock ([id number]) Head / Face / Neck Biometry: Rod Straightener 6.2 mm CM 3.8 mm Nasal bone 7.0 mm ANATOMY ----- The following structures appear normal: Head / Neck Cranium. Head size. Head shape.Lateral ventricles. Midline falx. Cavum septi pellucidi. Cerebellum.Cisterna magna. Thalami. Face Lips. Profile. Nose. Maxilla.Mandible. Heart / Thorax 4-chamber view. RVOT view. LVOT view.Situs. 4-kpviiu-etpzxog view. Diaphragm. Abdomen Stomach. Kidneys. Bladder. Spine [...] the 15%tile we will reassess growth at [facility] in 3weeks. Return to primary provider for [...] length with no funneling. Ana Oreilly MD IMG [facility] US ORDERABLE S documented in this encounter Visit Diagnoses Diagnosis Pulmonary embolism affecting in second trimester- Primary History of delivery, currently with history of pre-term labor Pulmonary embolism affecting in second trimester documented in this encounter Care Teams Expanded Duty Dental Assistant Relationship Specialty Start Date End Date No Ref-Primary, Physician PCP - General 03/31/23 documented as of this encounter
--- OUTSIDE RECORDS SUMMARY | 2023-07-14 13:49 | XMS_ITS | Encounter Summary ---
Author Organization [place] Address [address] [place] [address]. [place] [address] Care Team Providers Care Chain Link Fence Installer Name Role Phone No Ref-Primary, Physician Primary Care Provider Oleg Aparicio PA-C Unavailable [phone] Ana Oreilly MD Unavailable [phone] Encounter Details Date Type Department Care Team (Late st Contact Info) Description 06/22/2023 2:00 PM CDT Lab [facility] [address] [place] [address] Pulmonary embolism affecting in second [...] LAB - BLOOD ORDERABL ES [facility] LABORATORY [facility] [place] Core Lab [address] [facility], [address] [address] documented in this encounter Visit Diagnoses Diagnosis Pulmonary embolism affecting in second trimester documented in this encounter Care Teams Chain Link Fence Installer Relationship Specialty Start Date End Date No Ref-Primary, Physician PCP - General 03/31/23 Oleg Aparicio PA-C [address] [place], [place] [address] Assigned Cancer Care Provider 05/06/23 Ana Oreilly MD [address] [place], [place] [address] Assigned OBGYN Provider 05/06/23 documented as of this encounter
--- OUTSIDE RECORDS SUMMARY | 2023-07-14 13:49 | XMS_ITS | Encounter Summary ---
Author Organization [place] Address [address] [place] [address]. [place] [address] Care Team Providers Care Cctv Technician Name Role Phone No Ref-Primary, Physician [...] on filedocumented in this encounter Care Teams Cctv Technician Relationship Specialty Start Date End Date No Ref-Primary, Physician PCP - General 03/31/23 documented as of this encounter
--- OUTSIDE RECORDS SUMMARY | 2023-07-14 13:49 | XMS_ITS | Encounter Summary ---
Author Organization [place] Address [address] [place] [address]. [place] [address] Care Team Providers Care Tractor Mechanic Apprentice Name Role Phone No Ref-Primary, Physician Primary Care Provider Encounter Details Date Type Department Care Team (Late st Contact Info) Description 05/03/2023 1:00 PM CDT Lab [facility] [address] [place] [address] Pulmonary embolism affecting in second [...] 1 Antibody IgM (05/03/2023 1:03 PM CDT) Pathologist [facility] Beta 2 Glycoprotein 1 Antibody IgM <2.4 <7.0 U/mL 05/04/2023 10:34 AM CDT SPECIALTY CORE/PROT/END O Comment:Negative Blood BLOOD SPECIMEN / Unknown Venipuncture / Unknown 05/03/2023 1:03 PM CDT 05/03/2023 1:03 PM CDT Oleg Aparicio PA-C LAB - BLOOD ORDERABL ES [facility] SPECIALTY CORE/PROT/ENDO UM Specialty Core/Prot/Endo [address] [facility], [address] * Beta 2 Glycoprotein 1 Antibody IgG (05/03/2023 1:03 PM CDT) [facility] Beta 2 Glycoprotein 1 Antibody IgG <0.8 <7.0 U/mL 05/04/2023 10:34 AM CDT SPECIALTY CORE/PROT/END O Comment:Negative Blood BLOOD SPECIMEN / Unknown Venipuncture / Unknown 05/03/2023 1:03 PM CDT 05/03/2023 1:03 PM CDT Oleg Aparicio PA-C LAB - BLOOD ORDERABL ES UM SPECIALTY CORE/PROT/ENDO UM Specialty Core/Prot/Endo [address] [facility], Room [address] * Cardiolipin Makenzie IgG and IgM [...] ES UM SPECIALTY CORE/PROT/ENDO Specialty Core/Prot/Endo [address] [facility] [address] [facility], Room [address] [place] [address] * (ABNORMAL) Lupus Anticoagulant Panel (05/03/2023 1:03 PM CDT) Pathologist [facility] INR 1.02 0.85 - 1.15 4 2:25 [...] of an antiphospholipid syndrome, recommend anticardiolipin and jeen-5-lflnoqiyslz n (IgG and IgM) antibody tests. Recommend [...] BLOOD ORDERABL ES Performing Organization Address City/[facility] Co de Phone Number UM SPECIAL COAGULATION UM Special Coagulation [address] [facility], [address] [phone] * Low Molecular Weight Heparin Anti [...] BLOOD ORDERABL ES Performing Organization Address City/[facility]/ZIP Co de Phone Number [facility] LABORATORY [facility] [place] Core Lab [address] [facility], [address] [phone] documented in this encounter Visit Diagnoses Diagnosis Pulmonary embolism affecting in second trimester Family history of blood clots Family history of other blood disorders documented in this encounter Care Teams Tractor Mechanic Apprentice Relationship Specialty Start Date End Date No Ref-Primary, Physician PCP - General 03/31/23 documented as of this encounter
--- OUTSIDE RECORDS SUMMARY | 2023-07-14 13:49 | XMS_ITS | Encounter Summary ---
Author Organization [place] Address [address] [facility] [place] [address] Care Team Providers Care Parliamentary Counsel Name Role Phone No Ref-Primary, Physician Primary Care Provider Oleg Aparicio PA-C Unavailable [phone] Ana Oreilly MD Unavailable [phone] Encounter Details Date Type Department Care [...] on filedocumented in this encounter Care Teams Parliamentary Counsel Relationship Specialty Start Date End Date No Ref-Primary, Physician PCP - General 03/31/23 Oleg Aparicio PA-C [address] [place] [address] Assigned Cancer Care Provider 05/06/23 Ana Oreilly MD [address] [place] [address] Assigned OBGYN Provider 05/06/23 documented as of this encounter
--- OUTSIDE RECORDS SUMMARY | 2023-07-14 13:49 | XMS_ITS | Clinical Summary ---
Author Organization [facility] [facility] Address [place], [place] [address] Care Team Providers Care Set Up Mechanic Coil Winding Machines Name Role Phone Marybeth Andrew MD Primary [...] 05/13/2015 Tetanus booster 2017 COVID-19 vaccine series (2022- season) 2022 Influenza for age 9-49 10/23/2023 Pap test for age 21-65 12/12/2023 12/11/2020 Pneumococcal series for age 6-64 Aged Out No longer eligible based on patient's age to complete this topic Procedures Procedure Name Priority Date/Time Associated Diagnosis Comments TONGUE AND GROOVE MACHINE OPERATOR THIN PREP PAP SCREEN IMAGED Routine 12/11/2020 2:40 PM CDT from Last 3 Months or Most Recently Relevant to Health Maintenance Results * TONGUE AND GROOVE MACHINE OPERATOR THIN PREP PAP SCREEN IMAGED (12/11/2020 2:40 PM CDT) Case Report Gynecologic Cytology Report ? Case: [id number] ? Authorizing Provider: ??Elizabeth Philip ?Collected: ? 12/11/2020 1440 ? [place], ? Ordering Location: ? [facility] ?Received: ?12/15/2020 0858 ? First Screen: ?Baccam, Minie ? Specimen: ?TONGUE AND GROOVE MACHINE OPERATOR ThinPrep Vial Screening, Cervical/Vaginal ? 12/26/2020 2:03 PM CDT [facility] INTERPRETATION/ RESULT NEGATIVE FOR INTRAEPITHELIAL LESION OR MALIGNANCY (NIL) (none) 12/26/2020 2:03 PM CDT [facility] IMEN ADEQUACY Satisfactory for evaluation No endocervical component seen 12/26/2020 2:03 PM CDT [facility] HPV REQUEST HPV if ASCUS 12/26/2020 2:03 PM CDT [facility] Date of LMP 11/04/2020 12/26/2020 2:03 PM CDT [facility] Menstrual Status 12/26/2020 2:03 PM CDT [facility] Additional Information 12/26/2020 2:03 PM CDT [facility] Comment: Interpreted at [facility] - [address], [place] [address] Automated Review Successful 12/26/2020 2:03 PM CDT [facility] Comment:Specimen processed s uccessfully by automated analysis consultant device, ThinPrep Imaging System, [employer] Note The pap test is a [...] and malignant lesions. 12/26/2020 2:03 PM CDT [facility] Other (Cervical/Vagina l) 12/11/2020 2:40 PM CDT 12/15/2020 8:58 AM CDT Elizabeth Philip MD PATHOLOGY/ CYTOLOGY [facility] [address] [place] [address], from Last 3 Months or Most Recently Relevant to Health Maintenance Care Teams Set Up Mechanic Coil Winding Machines Relationship Specialty Start Date End Date Marybeth Andrew MD [address] [place] [address] PCP - General Family Practice 08/20/22
--- OUTSIDE RECORDS SUMMARY | 2023-07-14 13:49 | XMS_ITS | Encounter Summary ---
Author Organization [place] Address [address] [place] [address]. [place] [address] Care Team Providers Care Felting Machine Operator Name Role Phone No Ref-Primary, Physician Primary Care Provider Oleg Aparicio PA-C Unavailable [phone] Ana Oreilly MD Unavailable [phone] Encounter Details Date Type Department Care Team (Late st Contact Info) Description 06/22/2023 [facility] Medical Advice [facility] [address] [place] [phone] Oleg Aparicio PA-C [address] [place] [address] 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 Tobacco Use Types [...] Lovenox at 8:56 AM. She needs to supervisor picking crew refills but wants to make sure she is on the correct dose as she recently started her third trimester. Patient verbalized understanding and will go to lab. Sandie White RN, BSN, PCCN Nurse Clinician [facility] [address] [place] [address] [address], [place] [phone] Office, direct: [phone] Main office number: [phone] Pronouns: She, her, hers documented in this encounter Plan of Treatment Not on file documented as of this encounter Visit Diagnoses Not on filedocumented in this encounter Care Teams Felting Machine Operator Relationship Specialty Start Date End Date No Ref-Primary, Physician PCP - General 03/31/23 Oleg Aparicio, PABrightC [address] [place] [address] [address] [place], [place] [address] Assigned Cancer Care Provider 05/06/23 Ana Oreilly MD [address] [place] [id number] Assigned OBGYN Provider 05/06/23 documented as of this encounter
--- OUTSIDE RECORDS SUMMARY | 2023-07-14 13:49 | XMS_ITS | Encounter Summary ---
Author Organization [place] Address [address] [facility] [place] [address] Care Team Providers Care Arterial Embalmer Name Role Phone No Ref-Primary, Physician Primary Care Provider Oleg Aparicio PA-C Unavailable [phone] Ana Oreilly MD Unavailable [phone] Reason for Referral * Diagnostic Imaging Ultrasound (Routine) - Pending Review Specialty Diagnoses / Procedures Referred By Diana t Referred To Contact Radiology. Diagnoses related condition, antepartum Procedures MFM US Comprehensive Single F/U Ori Adame MD [address] [place] [address] Referral ID Status Reason Start Date Expiration Date V isits Requested Visits Authorized [id number] Pending Review 05/10/2023 05/09/2024 1 1 Reason for Visit * Reason Comments Ultrasound RL2/TV- Subopt anato my, hx PTD Encounter Details Date Type Department Care Team (Late st Contact Info) Description 05/10/2023 10:00 AM CDT Office Visit [facility] Maternal Medicine Center [place] [address] [facility] [address] [place] [address] Ori Adame MD [address] [place] [address] Encounter for follow-up ultrasound of [...] for details of today's US at the [facility]. Ori Adame MD Maternal- Medicine documented in this encounter Nursing Notes * Alma Soriano RN - 05/10/2023 10:00 AM CDT Patient reports positive movement, denies pain, denies contractions/pre- term labor, leaking of fluid, or bleeding. Patient denies headache, visual changes, nausea/vomiting, epigastric pain related to preeclampsia. Education provided to patient on RL2/TV. SBAR given to [facility] MD, see their note in Epic. Alma Soriano RN documented in this encounter Plan of Treatment Not on file documented as of this encounter Results * [facility] US Comprehensive Single F/U (05/31/2023 11:40 [...] ? Study Date: ??05/31/2023 10:49am Pat. NO: ??[id number] ?Referring ??MD: TRISTA MELLO Site: ??[facility] ? Loader Technician: Chanda Lazo RDMS : ??1995 ?Age: [...] lb 13 ? oz EFW by ?Hadlock ([id number]) Head / Face / Neck Biometry: Eyeglass Lens Grinder ? 5.7 ? mm CM ?7.7 ? mm ANATOMY ----- The following structures appear normal: Head / Neck ? Cranium. Head size. Head shape. Lateral ventricles. Midline falx. Cavum septi pellucidi. Cerebellum. Cisterna magna. Thalami. Heart / Thorax ?4-chamber view. RVOT view. LVOT view. 4-qevezn-eptiddb view. ? Diaphragm. Abdomen ? Stomach. Kidneys. [...] [place] Study Date: 05/31/2023 10:49am Pat. NO: [id number] Referring MD: TRISTA MELLO Site: [facility] Loader Technician: Chanda Lazo RDMS : 1995 Age: [...] 1 lb 13 oz EFW by [employer]lock ([id number]) Head / Face / Neck Biometry: Eyeglass Lens Grinder 5.7 mm CM 7.7 mm ANATOMY ----- The following structures appear normal: Head / Neck Cranium. Head size. Head shape.Lateral ventricles. Midline falx. Cavum septi pellucidi. Cerebellum.Cisterna magna. Thalami. Heart / Thorax 4-chamber view. RVOT view. LVOT view.2-dbgiro-jmkolbv view. Diaphragm. Abdomen Stomach. Kidneys. Bladder. Spine [...] volume appeared normal. Ori Adame MD IMG [facility] US ORDERABL ES documented in this encounter Visit Diagnoses Diagnosis Encounter for follow-up ultrasound of anatomy- Primary History of delivery, currently with history of pre-term labor Encounter for ultrasound to assess growth Encounter for ultrasound to assess growth documented in this encounter Care Teams Arterial Embalmer Relationship Specialty Start Date End Date No Ref-Primary, Physician PCP - General 03/31/23 Oleg Aparicio PA-C [address] [place], [place] [address] Assigned Cancer Care Provider 05/06/23 Ana Oreilly MD [address] [facility] [address] [place], [place] [address] Assigned OBGYN Provider 05/06/23 documented as of this encounter
--- OUTSIDE RECORDS SUMMARY | 2023-07-14 13:49 | XMS_ITS | Encounter Summary ---
Author Organization [facility] Address [address] [place] [address]. [place] [address] Care Team Providers Care Programmer Numerical Control Name Role Phone No Ref-Primary, Physician Primary Care Provider Encounter Details Date Type Department Care Team ([facility] st Contact Info) Description 04/28/2023 Telephone [facility] [address] [place] [phone] Oleg Aparicio PA-C [address] [place] [phone] 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 Tobacco Use Types Packs/Day Years [...] from the original note were not included. [facility] [address] [place] [address], [place] [address] Main: [phone], Telephone Note: Patient: Gabrielle Mcmahon : 1995 Date of this note written: April 28, 2023 Time: 15:55 This bond underwriter called the patient on 04/28/2023 at 15:55 [...] post . Oleg Aparicio PA-C, MPAS Physician Loader Operator [facility]. CH SETTER documented in this encounter Plan of Treatment Not on file documented as of this encounter Visit Diagnoses Not on filedocumented in this encounter Care Teams Programmer Numerical Control Relationship Specialty Start Date End Date No Ref-Primary, Physician PCP - General 03/31/23 documented as of this encounter
--- OUTSIDE RECORDS SUMMARY | 2023-07-14 13:49 | XMS_ITS | Encounter Summary ---
Author Organization [place] Address [address] [facility] [place] [address] Care Team Providers Care Wood Getter Name Role Phone No Ref-Primary, Physician Primary Care Provider Oleg Aparicio PA-C Unavailable [phone] Ana Oreilly MD Unavailable [phone] Reason for Referral * Diagnostic Imaging Ultrasound (Routine) - Pending Review Specialty Diagnoses / Procedures Referred By Diana garcia Referred To Contact Radiology. Diagnoses Encounter for ultrasound to check growth Procedures [facility] US Comprehensive Single F/U Ori Adame MD [address] [place] [address] Referral ID Status Reason Start Date Expiration Date V isits Requested Visits Authorized [id number] Pending Review 05/31/2023 05/30/2024 1 1 Reason for Visit * Reason Comments Ultrasound RL2-reassess g rowth, EFW 15% Encounter Details Date Type Department Care Team (Late st Contact Info) Description 05/31/2023 11:30 AM CDT Office Visit [facility] [place] [address] [facility] [address] [place] [phone] Ori Adame MD [address] [place] [address] Encounter for ultrasound to check [...] for details of today's US at the [facility]. Ori Adame MD Maternal- Medicine [...] OB givenhistory of PE. SBAR given to [facility] (Dr. Adame), see their note in Epic. documented in this encounter Plan of Treatment Not on file documented as of this encounter Results * [facility] US Comprehensive Single F/U (06/21/2023 10:50 [...] ? Study Date: ??06/21/2023 9:50am Pat. NO: ??[id number] ?Referring ??MD: TRISTA MELLO Site: ??[facility] ? Water Mangle Tender: Chanda Lazo RDMS : ??1995 ?Age: ?? [...] 2 lb 12 ?oz EFW by ?Hadlock ([id number]) Head / Face / Neck Biometry: Cigar Patcher ? 4.9 ? mm CM ?5.5 ? mm ANATOMY ----- The following structures appear normal: Head / Neck ? Cranium. Head size. Head shape. Lateral ventricles. Midline falx. Cerebellum. Cisterna magna. Thalami. Face ? Lips. Profile. Nose. Heart / Thorax ?4-chamber view. RVOT view. LVOT view. 2-xonovd-lbzooqt view. ? Diaphragm. Abdomen ? Stomach. Kidneys. [...] [place] Study Date: 06/21/2023 9:50am Pat. NO: [id number] Referring MD: TRISTA MELLO Site: [facility] Water Mangle Tender: Chanda Lazo RDMS : 1995 Age: 28 [...] 2 lb 12 oz EFW by Hadlock ([id number]) Head / Face / Neck Biometry: Cigar Patcher 4.9 mm CM 5.5 mm ANATOMY ----- The following structures appear normal: Head / Neck Cranium. Head size. Head shape.Lateral ventricles. Midline falx. Cerebellum. Cisterna magna. Thalami. Face Lips. Profile. Nose. Heart / Thorax 4-chamber view. RVOT view. LVOT view.3-qapdsx-yagpdrb view. Diaphragm. Abdomen Stomach. Kidneys. Bladder. Spine [...] fluid volume appeared normal. Ori Adame MD [facility] US ORDERABL ES documented in this encounter Visit Diagnoses Diagnosis Encounter for ultrasound to check growth- Primary Encounter for ultrasound to check growth documented in this encounter Care Teams Wood Getter Relationship Specialty Start Date End Date No Ref-Primary, Physician PCP - General 03/31/23 Oleg Aparicio PA-C [address] [facility] [address] [place] [address] Assigned Cancer Care Provider 05/06/23 Ana Oreilly MD [address] [address] [place], [place] [address] Assigned OBGYN Provider 05/06/23 documented as of this encounter
--- OUTSIDE RECORDS SUMMARY | 2023-07-14 13:49 | XMS_ITS | Encounter Summary ---
Author Organization [place] Address [address] [facility] [place] [address] Care Team Providers Care Hammer Mill Operator Name Role Phone No Ref-Primary, Physician Primary Care Provider Oleg Aparicio PA-C Unavailable [phone] Ana Oreilly MD Unavailable [phone] Encounter Details Date Type Department Care [...] on filedocumented in this encounter Care Teams Hammer Mill Operator Relationship Specialty Start Date End Date No Ref-Primary, Physician PCP - General 03/31/23 Oleg Aparicio PA-C [address] [place] [address] Assigned Cancer Care Provider 05/06/23 Ana Oreilly MD [address] [place] [address] Assigned OBGYN Provider 05/06/23 documented as of this encounter
--- OUTSIDE RECORDS SUMMARY | 2023-07-14 13:49 | XMS_ITS | Encounter Summary ---
Author Organization [place] Address [address] [place] [address]. [place] [address] Care Team Providers Care Pet Walker Name Role Phone No Ref-Primary, Physician Primary [...] on filedocumented in this encounter Care Teams Pet Walker Relationship Specialty Start Date End Date No Ref-Primary, Physician PCP - General 03/31/23 documented as of this encounter
--- OUTSIDE RECORDS SUMMARY | 2023-07-14 13:49 | XMS_ITS | Encounter Summary ---
Author Organization [place] Address [address] [place] [address]. [place] [address] Care Team Providers Care Food Production Manager Name Role Phone No Ref-Primary, Physician Primary Care Provider Reason for Visit * Reason Comments CLOTTING * Consultation (Priority: 1-2 Weeks) - Pending Review Specialty Diagnoses / Procedures Referred By Contac t Referred To Contact Medical Oncology Diagnoses Pulmonary embolism affecting in second trimester Ana Oreilly MD [address] [address] Referral ID Status Reason Start Date Expiration Date V isits Requested Visits Authorized [id number] Pending Review 04/12/2023 04/11/2024 1 1 Encounter Details Date Type Department Care Team (Late st Contact Info) Description 04/28/2023 1:30 PM COTTON JAMMER Office Visit [facility] [address] [facility] [address] [place] [address] Ana Oreilly MD [address] [facility] [address] [place] [address] Oleg Aparicio, PABrightC [address] [place] [address] Pulmonary embolism affecting in second [...] Comments Blood Pressure 113/69 04/28/2023 1:25 PM COTTON JAMMER Pulse 72 04/28/2023 1:25 PM COTTON JAMMER Temperature 36.7 ??C (98 ??F) 04/28/2023 1:25 PM COTTON JAMMER Respiratory Rate - - Oxygen Saturation 98% 04/28/2023 1:25 PM COTTON JAMMER Inhaled Oxygen Concentration - - Weight 68.9 kg (152 lb) 04/28/2023 1:25 PM COTTON JAMMER Height 170.2 cm (5' 7) 04/28/2023 1:25 PM COTTON JAMMER Body Mass Index 23.81 04/28/2023 1:25 PM COTTON JAMMER documented in this encounter Progress Notes * Oleg Aparicio PA-C - 04/28/2023 1:30 PM CST Images from the original note were not included. [facility] [address] [place] [address] Main: [phone], Patient seen at: [facility] at [address] [place] [address] Outpatient Visit Note: Patient: Gabrielle Mcmahon : 1995 DEBORAH: April 28, 2023 Location of this gag writer at the time of this clinic visit was conducted: [facility], [facility]. Location of the patient at the time of this clinic visit was conducted: [facility]. Reason [...] the patient's pulmonary embolism was diagnosed at [facility] and I am unable to find any progress notes, H&P notes or discharge summary of this hospitalization in her records. I am able, however, to see some labs and imaging studies via [facility] Everywhere from [facility]. From what I can gather, Gabrielle [...] was performed. She then went to the [facility] emergency department on 03/08/2023 with chest [...] today, the [facility] consult them about the need [...] the time, her mother was [facility] and from Gabrielle's description, it was consistent with c erebral sinus thrombosis but not entirely clear. Gabrielle report that her mother's blood clot was related to control and her mother is no longer on anticoagulation therapy. Gabrielle is unclear ifother thrombophilia workup was done with her mother. Then on 04/22/2023, this gag writer received a call from a nurse at [facility] and was inquiring about her enoxaparin dosing. At the time, this gag writer was informed that her Anti-Xa level was subtherapeutic at I belief at 0.3 (again, I am not able to see any [facility]'s or systems notes. 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 Has not return to work as [...] a LMWH Anti-Xa level reported to this gag writer from [facility] that was subtherapeutic. I will plan [...] weeks gestation) to be done at a [facility] so that we can get the result [...] or concerns. Oleg Aparicio PA-C, MPAS Physician Web Analytics Specialist [facility]. [...] note. Time IN: 13:30 Time OUT: 14:15 ON JAMMER documented in this encounter Miscellaneous Notes * Addendum Note - Oleg Aparicio PA-C - 04/28/2023 1:30 PM CSTAddended by: OLEG APARICIO on: 04/28/2023 04:09 PM Modules accepted: Orders ON JAMMER documented in this encounter Plan of Treatment Not on file documented as of this encounter Procedures Procedure Name Priority Date/Time Associated Diagnosis Comments LOW MOLECULAR WEIGHT HEPARIN ANTI XA LEVEL Routine 04/28/2023 2:27 PM COTTON JAMMER Pulmonary embolism affecting in second trimester documented [...] LAB - BLOOD ORDERABL ES [facility] [place] Core Lab [address] [facility], [address] * Beta 2 Glycoprotein 1 Antibody IgM (05/03/2023 1:03 PM CDT) Beta 2 Glycoprotein 1 Antibody IgM <2.4 <7.0 U/mL 05/04/2023 10:34 AM CDT SPECIALTY CORE/PROT/END O Comment:Negative Blood BLOOD SPECIMEN / Unknown Venipuncture / Unknown 05/03/2023 1:03 PM CDT 05/03/2023 1:03 PM CDT Oleg Aparicio PA-C LAB - BLOOD ORDERABL ES SPECIALTY CORE/PROT/ENDO Specialty Core/Prot/Endo [address] [facility], [address] * Beta 2 Glycoprotein 1 Antibody IgG (05/03/2023 1:03 PM CDT) Beta 2 Glycoprotein 1 Antibody IgG <0.8 <7.0 U/mL 05/04/2023 10:34 AM CDT SPECIALTY CORE/PROT/END O Comment:Negative Blood BLOOD SPECIMEN / Unknown Venipuncture / Unknown 05/03/2023 1:03 PM CDT 05/03/2023 1:03 PM CDT Oleg Aparicio PA-C LAB - BLOOD ORDERABL ES UM SPECIALTY CORE/PROT/ENDO UM Specialty Core/Prot/Endo [address] [facility], [address] * Cardiolipin Angie IgG and IgM [...] SPECIALTY CORE/PROT/ENDO UM Specialty Core/Prot/Endo [address] [facility], [address] * (ABNORMAL) Lupus Anticoagulant Panel [...] of an antiphospholipid syndrome, recommend anticardiolipin and sqog-2-ltgdcdachdm n (IgG and IgM) antibody tests. Recommend [...] SPECIAL COAGULATION UM Special Coagulation [address] [facility], [address] [phone] * Low Molecular [...] LAB - BLOOD ORDERABL ES [facility] [place] Core [facility] [address] [facility], [address] [place] [address] * Low Molecular Weight Heparin Anti Xa Level (04/28/2023 2:27 PM COTTON JAMMER) Anti Xa Low Molecular Weight 0.42 For Reference Range, See Comment IU/mL 04/28/2023 2:53 PM COTTON JAMMER [facility] LAB[facility]ATORY Blood STRUCTURE OF RIGHT UPPER LIMB / Unknown Venipuncture / Unknown 04/28/2023 2:27 PM COTTON JAMMER 04/28/2023 2:41 PM COTTON JAMMER Narrative [facility] LAB[facility]ATORY - 04/28/2023 2:53 PM COTTON JAMMER If collected 4-6 hours after administration: Adults: If administered only once daily with a dose of 1.5 mg/k.0-2.0 IU/mL. If administered twice daily with a dose of 1 mg/k.50-1.0 IU/mL. Pediatrics: If administered twice daily: 0.50-1.0 IU/mL. Oleg Aparicio PA-C LAB - BLOOD ORDERABL ES Performing Organization Address City/[facility]/ZIP Co de Phone Number UR LABORATORY [facility] [address] [facility], [address] [place] [address], [facility] [phone] documented in this encounter Visit Diagnoses Diagnosis Pulmonary embolism affecting in second trimester- Primary Family history of blood clots Family history of other blood disorders documented in this encounter Care Teams Food Production Manager Relationship Specialty Start Date End Date No Ref-Primary, Physician PCP - General 03/31/23 documented as of this encounter
--- OUTSIDE RECORDS SUMMARY | 2023-07-14 13:49 | XMS_ITS | Encounter Summary ---
Author Organization [place] Address [address] [facility] [place] [address] Care Team Providers Care Police Manager Name Role Phone No Ref-Primary, Physician Primary Care Provider Oleg Aparicio PA-C Unavailable [phone] Ana Oreilly MD Unavailable [phone] Encounter Details Date Type Department Care [...] on filedocumented in this encounter Care Teams Police Manager Relationship Specialty Start Date End Date No Ref-Primary, Physician PCP - General 03/31/23 Oleg Aparicio PA-C [address] [place] [address] Assigned Cancer Care Provider 05/06/23 Ana Oreilly MD [address] [place] [address] Assigned OBGYN Provider 05/06/23 documented as of this encounter
--- OUTSIDE RECORDS SUMMARY | 2023-07-14 13:49 | XMS_ITS | Encounter Summary ---
Author Organization [place] Address [address] [place] [address] Care Team Providers Care Clinical Specialist Name Role Phone No Ref-Primary, Physician Primary Care Provider Oleg Aparicio PA-C Unavailable [phone] Ana Oreilly MD Unavailable [phone] Reason for Referral * Diagnostic Imaging Ultrasound (Routine) - Pending Review Specialty Diagnoses / Procedures Referred By Contac t Referred To Contact Radiology. Diagnoses related condition, antepartum Procedures [facility] US Comprehensive Single F/U Ori Adame MD [address] [address] Referral ID Status Reason Start Date Expiration Date V isits Requested Visits Authorized [id number] Pending Review 05/10/2023 05/09/2024 1 1 Reason for Visit * Diagnostic Imaging Ultrasound (Routine) - Pending Review Specialty Diagnoses / Procedures Referred By Contac t Referred To Contact Radiology. Diagnoses related condition, antepartum Procedures [facility] US Comprehensive Single F/U Ori Adame MD [address] [place] [address] Referral ID Status Reason Start Date Expiration Date V isits Requested Visits Authorized [id number] Pending Review 05/10/2023 05/09/2024 1 1 Encounter Details Date Type Department Care Team (Latest Contact Info) Description 05/31/2023 10:45 AM CDT - 05/31/2023 11:59 PM CDT Hospital Encounter [facility] [place] [address] [place] [address] Ori Adame MD [address] [place] [address] Encounter for ultrasound to assess [...] Procedure Name Priority Date/Time Associated Diagnosis Comments [facility] US COMPREHENSIVE SINGLE F/U Routine 05/31/2023 11:40 AM CDT Encounter for ultrasound to assess growth documented in this encounter Results * [facility] US Comprehensive Single F/U (05/31/2023 11:40 [...] ? Study Date: ??05/31/2023 10:49am Pat. NO: ??[id number] ?Referring ??MD: TRISTA MELLO Site: ??[facility] ? Continuous Dryout Operator Helper: Chanda Lazo RDMS : ??1995 ?Age: [...] lb 13 ? oz EFW by ?Hadlock ([id number]) Head / Face / Neck Biometry: Child Nutrition Assistant ? 5.7 ? mm CM ?7.7 ? mm ANATOMY ----- The following structures appear normal: Head / Neck ? Cranium. Head size. Head shape. Lateral ventricles. Midline falx. Cavum septi pellucidi. Cerebellum. Cisterna magna. Thalami. Heart / Thorax ?4-chamber view. RVOT view. LVOT view. 0-mwpkpy-xmyhqfz view. ? Diaphragm. Abdomen ? Stomach. Kidneys. [...] 05/31/2023 Comp Follow Up ----- Pat. Name: GABRILELE [place] Study Date: 05/31/2023 10:49am Pat. NO: [id number] Referring MD: TRISTA MELLO Site: [facility] Continuous Dryout Operator Helper: Chanda Lazo RDMS : 1995 Age: [...] 1 lb 13 oz EFW by Hadlock ([id number]) Head / Face / Neck Biometry: Child Nutrition Assistant 5.7 mm CM 7.7 mm ANATOMY ----- The following structures appear normal: Head / Neck Cranium. Head size. Head shape.Lateral ventricles. Midline falx. Cavum septi pellucidi. Cerebellum.Cisterna magna. Thalami. Heart / Thorax 4-chamber view. RVOT view. LVOT view.5-adsqfy-iownkgf view. Diaphragm. Abdomen Stomach. Kidneys. Bladder. Spine [...] fluid volume appeared normal. [facility] MD [facility] documented in this encounter Visit Diagnoses Diagnosis Encounter for ultrasound to assess growth documented in this encounter Care Teams Clinical Specialist Relationship Specialty Start Date End Date No Ref-Primary, Physician PCP - General 03/31/23 Oleg Aparicio, RUPAL [address] [place] [address] Assigned Cancer Care Provider 05/06/23 Ana Oreilly MD [address] [address] Assigned OBGYN Provider 05/06/23 documented as of this encounter
--- OUTSIDE RECORDS SUMMARY | 2023-07-14 13:49 | XMS_ITS | Encounter Summary ---
Author Organization [place] Address [address] [place] [address]. [place] [address] Care Team Providers Care Nitrator Operator Name Role Phone No Ref-Primary, Physician Primary Care Provider Oleg Aparicio PA-C Unavailable [phone] Ana Oreilly MD Unavailable [phone] Reason for Visit * Reason Comments Deep Vein Thrombosis Encounter Details Date Type Department Care Team (Late st Contact Info) Description 07/04/2023 2:30 PM CDT Office Visit [facility] [address] [place] [address] Oleg Aparicio PA-C [address] [place] [address] Pulmonary embolism affecting in second [...] from the original note were not included. [facility] [address] [place] [address] Main: [phone], Patient seen at: [facility] at [address] [place] [address] Outpatient Visit Note: Patient: Gabrielle Mcmahon : 1995 DEBORAH: July 04, 2023 Location of this editorial writer at the time of this clinic visit was conducted: [facility], [facility]. Location of the patient at the time of this clinic visit was conducted: [facility]. [...] up. She was last seen by this editorial writer back on 04/28/2023. Thrombosis History Summary: [...] both lower extremities. 03/08/2023, she presented to [facility] emergency department with chest pain. CTA chest [...] today, the emergency department physician did call [facility] Interventional Radiology and consult them about the [...] History: 04/28/2023, she established care with this editorial writer and I determined that her pulmonary [...] and PmHx: All are reviewed by this editorial writer today via electronic medical records Social [...] venous thromboembolism. Oleg Aparicio PA-C, MPAS Physician Manager [employer] [facility] for [...] incidental documented in this encounter Care Teams Nitrator Operator Relationship Specialty Start Date End Date No Ref-Primary, Physician PCP - General 03/31/23 Oleg Aparicio PA-C [address] [place] [address] Assigned Cancer Care Provider 05/06/23 Ana Oreilly MD [address] [place] [address] Assigned OBGYN Provider 05/06/23 documented as of this encounter
--- OUTSIDE RECORDS SUMMARY | 2023-07-14 13:49 | XMS_ITS | Encounter Summary ---
Author Organization [place] Address [address] [place] [address] Care Team Providers Care Cut Off Sawyer Name Role Phone No Ref-Primary, Physician Primary Care Provider Oleg Aparicio PA-C Unavailable [phone] Ana Oreilly MD Unavailable [phone] Reason for Visit * Reason Comments Ultrasound RL2-EFW14% Encounter Details Date Type Department Care Team (Late st Contact Info) Description 06/21/2023 10:00 AM CDT Office Visit [facility] [place] [address] [facility] [address] [place] [address] Ori Adame MD [address] [place] [address] Encounter for ultrasound to check [...] for details of today's US at the [facility]. Ori Adame MD Maternal- Medicine documented in this encounter Nursing Notes * Mara Cheung, RN - 06/21/2023 10:00 AM CDT Patient reports good movement, reports Everton Thomas contractions, denies leaking of fluid, or bleeding. SBAR given to [facility] , see their note in Epic. documented in this encounter Plan of Treatment Not on file documented as of this encounter Visit Diagnoses Diagnosis Encounter for ultrasound to check growth- Primary documented in this encounter Care Teams Cut Off Sawyer Relationship Specialty Start Date End Date No Ref-Primary, Physician PCP - General 03/31/23 Oleg Aparicio, PA-C [address] [facility] [address] [place], [place] [address] Assigned Cancer Care Provider 05/06/23 Ana Oreilly MD [address] [place], [place] [address] Assigned OBGYN Provider 05/06/23 documented as of this encounter
--- OUTSIDE RECORDS SUMMARY | 2023-07-14 13:49 | XMS_ITS | Referral Summary ---
Author Organization [place] Address [address] [facility] [place] [address] Care Team Providers Care Mine Deputy Name Role Phone No Ref-Primary, Physician Primary Care Provider Oleg Aparicio PA-C Unavailable [phone] Ana Oreilly MD Unavailable [phone] Encounters Date Type Department Care Team Description 07/04/2023 Travel 07/04/2023 2:30 PM CDT Office Visit [facility] [address] [place] [address] Oleg Aparicio PA-C Pulmonary embolism affecting in second trimester (Primary Dx); Family history of blood clots; 31 weeks gestation of 06/22/2023 2:00 PM CDT Lab [facility] [address] [place] [phone] Pulmonary embolism affecting in second trimester 06/22/2023 MyC Medical Advice [facility] [address] [place] [address] Oleg Aparicio PA-C 06/21/2023 Travel 06/21/2023 10:00 AM CDT Office Visit [facility] [place] [address] [place] [address] Ori Adame MD Encounter for ultrasound to check growth (Primary Dx) 06/21/2023 9:30 AM CDT - 06/21/2023 11:59 PM CDT Hospital Encounter [facility] [place] [address] [facility] [address] [place] [phone] Ori Adame MD Encounter for ultrasound to check growth Discharge Disposition: Home or Self Care 05/31/2023 Travel 05/31/2023 11:30 AM CDT Office Visit [facility] [place] [address] [facility] [facility] [address] [place] [phone] Ori Adame MD Encounter for ultrasound to check growth (Primary Dx) 05/31/2023 10:45 AM CDT - 05/31/2023 11:59 PM CDT Hospital Encounter [facility] [place] [address] [facility] [address] [place] [phone] Ori Adame MD Encounter for ultrasound to assess growth Discharge Disposition: Home or Self Care 05/10/2023 Travel 05/10/2023 10:00 AM CDT Office Visit [facility] [place] [address] [facility] [address] [place] [phone] Ori Adame MD Encounter for follow-up ultrasound of anatomy (Primary Dx); History of delivery, currently ; Encounter for ultrasound to assess growth 05/10/2023 9:28 AM CDT - 05/10/2023 11:59 PM CDT Hospital Encounter [facility] [place] [address] [place] [address] Ori Adame MD Pulmonary embolism affecting in second trimester Discharge Disposition: Home or Self Care 05/03/2023 1:00 PM CDT Lab [facility] [address] [place] [address] Pulmonary embolism affecting in second trimester; Family history of blood clots 04/28/2023 MyC Medical Advice [facility] [address] [facility] [address] [place] [address] Carmen Pollack RN 04/28/2023 Telephone [facility] [address] [facility] [facility] [address] [place] [address] Oleg Aparicio PA-C 04/28/2023 Travel 04/28/2023 1:30 PM FAMILY COACH Office Visit [facility] [address] [facility] [address] [place] [address] Ana Oreilly MD Chan, Ricky Y, RUPAL Pulmonary embolism affecting in second trimester (Primary Dx); Family history of blood clots 04/27/2023 Travel from Last 3 Months Allergies No known [...] Respiratory Rate 20 04/12/2023 10:5 8 AM FAMILY COACH Oxygen Saturation 97% 07/04/2023 2:28 PM CDT [...] CDT Pulmonary embolism affecting in second trimester [facility] US COMPREHENSIVE SINGLE F/U Routine 06/21/2023 10:50 AM CDT Encounter for ultrasound to check growth [facility] US COMPREHENSIVE SINGLE F/U Routine 05/31/2023 11:40 AM CDT Encounter for ultrasound to assess growth [facility] US COMPREHENSIVE SINGLE F/U Routine 05/10/2023 [...] ANTI XA LEVEL Routine 04/28/2023 2:27 PM FAMILY COACH Pulmonary embolism affecting in second trimester from Last 3 Months Results * Low Molecular Weight Heparin Anti Xa Level (06/22/2023 1:58 PM CDT) Only the most recent of3 resultswithin the time period is included. [facility] Anti Xa Low Molecular Weight 0.58 For Reference Range, See Comment IU/mL 06/22/2023 9:38 PM CDT [facility] Blood BLOOD SPECIMEN / Unknown Venipuncture / Unknown 06/22/2023 1:58 PM CDT 06/22/2023 1:58 PM CDT [facility] - 06/22/2023 9:38 PM CDT If collected 4-6 hours after administration: Adults: If administered only once daily with a dose of 1.5 mg/k.0-2.0 IU/mL. If administered twice daily with a dose of 1 mg/k.50-1.0 IU/mL. Pediatrics: If administered twice daily: 0.50-1.0 IU/mL. Oleg Aparicio PA-C LAB - BLOOD ORDERABL ES [facility] [place] [facility] [address] [facility], [address] [place] [address], [facility] * [facility] Single F/U (06/21/2023 10:50 AM CDT) Only [...] ? Study Date: ??06/21/2023 9:50am Pat. NO: ??[id number] ?Referring ??: TRISTA MELLO Site: ??[facility] ? Heel Shaper: Chanda Lazo RDMS : ??1995 ?Age: ?? [...] 2 lb 12 ?oz EFW by ?Hadlock ([id number]) Head / Face / Neck Biometry: Explosives Truck Driver ? 4.9 ? mm CM ?5.5 ? mm ANATOMY ----- The following structures appear normal: Head / Neck ? Cranium. Head size. Head shape. Lateral ventricles. Midline falx. Cerebellum. Cisterna magna. Thalami. Face ? Lips. Profile. Nose. Heart / Thorax ?4-chamber view. RVOT view. LVOT view. 1-qjjpcz-kzqruyy view. ? Diaphragm. Abdomen ? Stomach. Kidneys. [...] [place] Study Date: 06/21/2023 9:50am Pat. NO: [id number] Referring MD: TRISTA MELLO Site: [facility] Heel Shaper: Chanda Lazo RDMS : 1995 Age: 28 [...] 2 lb 12 oz EFW by Hadlock ([id number]) Head / Face / Neck Biometry: Explosives Truck Driver 4.9 mm CM 5.5 mm ANATOMY ----- The following structures appear normal: Head / Neck Cranium. Head size. Head shape.Lateral ventricles. Midline falx. Cerebellum. Cisterna magna. Thalami. Face Lips. Profile. Nose. Heart / Thorax 4-chamber view. RVOT view. LVOT view.4-wtgavj-gbssywv view. Diaphragm. Abdomen Stomach. Kidneys. Bladder. Spine [...] fluid volume appeared normal. Ori Adame MD [facility] US ORDERABL ES * Cardiolipin Makenzie [...] UM SPECIALTY CORE/PROT/ENDO [facility] Specialty Core/Prot/Endo [address] [facility], [address] * Beta 2 Glycoprotein 1 Antibody IgM (05/03/2023 1:03 PM CDT) Beta 2 Glycoprotein 1 Antibody IgM <2.4 <7.0 U/mL 05/04/2023 10:34 AM CDT SPECIALTY CORE/PROT/END O Comment:Negative Blood BLOOD SPECIMEN / Unknown Venipuncture / Unknown 05/03/2023 1:03 PM CDT 05/03/2023 1:03 PM CDT Oleg Aparicio PA-C LAB - BLOOD ORDERABL ES [facility] SPECIALTY CORE/PROT/ENDO UM Specialty Core/Prot/Endo [address] [facility] [address] [facility], [address] * Beta 2 Glycoprotein 1 Antibody IgG (05/03/2023 1:03 PM CDT) Beta 2 Glycoprotein 1 Antibody IgG <0.8 <7.0 U/mL 05/04/2023 10:34 AM CDT SPECIALTY CORE/PROT/END O Comment:Negative Blood BLOOD SPECIMEN / Unknown Venipuncture / Unknown 05/03/2023 1:03 PM CDT 05/03/2023 1:03 PM CDT Oleg Aparicio PA-C LAB - BLOOD ORDERABL ES [facility] SPECIALTY CORE/PROT/ENDO UM Specialty Core/Prot/Endo [address] [facility], [address] * (ABNORMAL) Lupus Anticoagulant Panel (05/03/2023 [...] of an antiphospholipid syndrome, recommend anticardiolipin and rbrj-4-vbaxcfarfwv n (IgG and IgM) antibody tests. Recommend [...] UM SPECIAL COAGULATION UM Special Coagulation [address] [facility] [address], [address] [place] [address], [facility] from Last 3 Months Care Teams Mine Deputy Relationship Specialty Start Date End Date No Ref-Primary, Physician PCP - General 03/31/23 Oleg Aparicio PA-C [address] [facility] [address] [place], [place] [address] Assigned Cancer Care Provider 05/06/23 Ana Oreilly MD [address] [facility] [address] [place] [address] Assigned OBGYN Provider 05/06/23
--- OUTSIDE RECORDS SUMMARY | 2023-07-14 13:49 | XMS_ITS | Encounter Summary ---
Author Organization [place] Address [address] [facility] [place] [address] Care Team Providers Care Cage Loader Name Role Phone No Ref-Primary, Physician Primary Care Provider Oleg Aparicio PA-C Unavailable [phone] Ana Oreilly MD Unavailable [phone] Encounter Details Date Type Department Care [...] on filedocumented in this encounter Care Teams Cage Loader Relationship Specialty Start Date End Date No Ref-Primary, Physician PCP - General 03/31/23 Oleg Aparicio PA-C [address] [place] [address] Assigned Cancer Care Provider 05/06/23 Ana Oreilly MD [address] [place] [address] Assigned OBGYN Provider 05/06/23 documented as of this encounter
--- OUTSIDE RECORDS SUMMARY | 2023-07-14 13:49 | XMS_ITS | Encounter Summary ---
Author Organization [place] Address [address] [place] [address] Care Team Providers Care Rubber Press Operator Name Role Phone No Ref-Primary, Physician Primary Care Provider Oleg Aparicio PA-C Unavailable [phone] Ana Oreilly MD Unavailable [phone] Reason for Referral * Diagnostic Imaging Ultrasound (Routine) - Pending Review Specialty Diagnoses / Procedures Referred By Contac t Referred To Contact Radiology. Diagnoses Encounter for ultrasound to check growth Procedures [facility] US Comprehensive Single F/U Ori Adame MD [address] [address] [address] Referral ID Status Reason Start Date Expiration Date V isits Requested Visits Authorized [id number] Pending Review 05/31/2023 05/30/2024 1 1 Reason for Visit * Diagnostic Imaging Ultrasound (Routine) - Pending Review Specialty Diagnoses / Procedures Referred By Contac jose Referred To Contact Radiology. Diagnoses Encounter for ultrasound to check growth Procedures [facility] US Comprehensive Single F/U Ori Adame MD [address] [place] [address] Referral ID Status Reason Start Date Expiration Date V isits Requested Visits Authorized [id number] Pending Review 05/31/2023 05/30/2024 1 1 Encounter Details Date Type Department Care Team (Latest Contact Info) Description 06/21/2023 9:30 AM CDT - 06/21/2023 11:59 PM CDT Hospital Encounter [facility] [place] [address] [place] [address] Ori Adame MD [address] [place] [address] Encounter for ultrasound to check [...] Procedure Name Priority Date/Time Associated Diagnosis Comments [facility] US COMPREHENSIVE SINGLE F/U Routine 06/21/2023 10:50 AM CDT Encounter for ultrasound to check growth documented in this encounter Results * [facility] US Comprehensive Single F/U (06/21/2023 [...] ? Study Date: ??06/21/2023 9:50am Pat. NO: ??[id number] ?Referring ??MD: TRISTA MELLO Site: ??[facility] ? Quality Assurance Coordinator: Chanda Lazo RDMS : ??1995 ?Age: [...] 2 lb 12 ?oz EFW by ?Hadlock ([id number]) Head / Face / Neck Biometry: Retail Property Manager ? 4.9 ? mm CM ?5.5 ? mm ANATOMY ----- The following structures appear normal: Head / Neck ? Cranium. Head size. Head shape. Lateral ventricles. Midline falx. Cerebellum. Cisterna magna. Thalami. Face ? Lips. Profile. Nose. Heart / Thorax ?4-chamber view. RVOT view. LVOT view. 9-afyfqq-ikxkxbn view. ? Diaphragm. Abdomen ? Stomach. Kidneys. [...] [place] Study Date: 06/21/2023 9:50am Pat. NO: [id number] Referring MD: TRISTA MELLO Site: [facility] Quality Assurance Coordinator: Chanda Lazo RDMS : 1995 Age: [...] 2 lb 12 oz EFW by Hadlock ([id number]) Head / Face / Neck Biometry: Retail Property Manager 4.9 mm CM 5.5 mm ANATOMY ----- The following structures appear normal: Head / Neck Cranium. Head size. Head shape.Lateral ventricles. Midline falx. Cerebellum. Cisterna magna. Thalami. Face Lips. Profile. Nose. Heart / Thorax 4-chamber view. RVOT view. LVOT view.9-rgilqa-cywrpdd view. Diaphragm. Abdomen Stomach. Kidneys. Bladder. Spine [...] growth documented in this encounter Care Teams Rubber Press Operator Relationship Specialty Start Date End Date No Ref-Primary, Physician PCP - General 03/31/23 Oleg Aparicio, RUPAL [address] [place] [address] Assigned Cancer Care Provider 05/06/23 Ana Oreilly MD [address] [place] [address] Assigned OBGYN Provider 05/06/23 documented as of this encounter
--- OUTSIDE RECORDS SUMMARY | 2023-07-14 13:49 | XMS_ITS | Encounter Summary ---
Author Organization [place] Address [address] [place] [address]. [place] [address] Care Team Providers Care Ends Down Checker Name Role Phone No Ref-Primary, Physician Primary [...] on filedocumented in this encounter Care Teams Ends Down Checker Relationship Specialty Start Date End Date No Ref-Primary, Physician PCP - General 03/31/23 documented as of this encounter
--- OUTSIDE RECORDS SUMMARY | 2023-07-14 13:49 | XMS_ITS | Encounter Summary ---
Author Organization [place] Address [address] [place] [address] Care Team Providers Care Locomotive Pipe Fitter Name Role Phone No Ref-Primary, Physician Primary Care Provider Oleg Aparicio PA-C Unavailable [phone] Ana Oreilly MD Unavailable [phone] Reason for Referral * Diagnostic Imaging Ultrasound (Routine) - Pending Review Specialty Diagnoses / Procedures Referred By Contac t Referred To Contact Radiology. Diagnoses Pulmonary embolism affecting in second trimester Procedures [facility] US Comprehensive Single F/U Ana Oreilly MD [address] [place] [address] Referral ID Status Reason Start Date Expiration Date V isits Requested Visits Authorized [id number] Pending Review 04/12/2023 04/11/2024 1 1 Reason for Visit * Diagnostic Imaging Ultrasound (Routine) - Pending Review Specialty Diagnoses / Procedures Referred By Contac t Referred To Contact Radiology. Diagnoses Pulmonary embolism affecting in second trimester Procedures [facility] US Comprehensive Single F/U Ana Oreilly MD [address] [place] [address] Referral ID Status Reason Start Date Expiration Date V isits Requested Visits Authorized [id number] Pending Review 04/12/2023 04/11/2024 1 1 Encounter Details Date Type Department Care Team (Latest Contact Info) Description 05/10/2023 9:28 AM CDT - 05/10/2023 11:59 PM CDT Hospital Encounter [facility] [place] [address] [place] [address] Ori Adame MD [address] [place] [address] Pulmonary embolism affecting in second [...] Procedure Name Priority Date/Time Associated Diagnosis Comments [facility] COMPREHENSIVE SINGLE F/U Routine 05/10/2023 10:08 AM CDT Pulmonary embolism affecting in second trimester documented in this encounter Results * [facility] Comprehensive Single F/U (05/10/2023 10:08 AM CDT) [...] ? Study Date: ??05/10/2023 9:30am Pat. NO: ??[id number] ?Referring ??MD: TRISTA MELLO Site: ??[facility] ? [place] Converter Blower: Yamel [place] RDMS : ??1995 ?Age: ?? [...] 1 lb 2 ?oz EFW by ?Hadlock ([id number]) Head / Face / Neck Biometry: Equipment Lead ? 6.2 ? mm CM ?3.8 ? mm Nasal bone ? 7.0 ? mm ANATOMY ----- The following structures appear normal: Head / Neck ? Cranium. Head size. Head shape. Lateral ventricles. Midline falx. Cavum septi pellucidi. Cerebellum. Cisterna magna. Thalami. Face ? Lips. Profile. Nose. Maxilla. Mandible. Heart / Thorax ?4-chamber view. RVOT view. LVOT view. Situs. 9-qpkdmj-kwuoteu view. ? Diaphragm. Abdomen ? Stomach. Kidneys. [...] the 15%tile we will reassess growth at [facility] in 3 weeks. Return to primary provider [...] [place] Study Date: 05/10/2023 9:30am Pat. NO: [id number] Referring MD: TRISTA MELLO Site: [facility] [place]mer Converter Blower: Yamel [place] RDMS : 1995 Age: 27 [...] 1 lb 2 oz EFW by Hadlock ([id number]) Head / Face / Neck Biometry: Equipment Lead 6.2 mm CM 3.8 mm Nasal bone 7.0 mm ANATOMY ----- The following structures appear normal: Head / Neck Cranium. Head size. Head shape.Lateral ventricles. Midline falx. Cavum septi pellucidi. Cerebellum.Cisterna magna. Thalami. Face Lips. Profile. Nose. Maxilla.Mandible. Heart / Thorax 4-chamber view. RVOT view. LVOT view.Situs. 7-fjfauo-ezwlzqy view. Diaphragm. Abdomen Stomach. Kidneys. Bladder. Spine [...] trimester documented in this encounter Care Teams Locomotive Pipe Fitter Relationship Specialty Start Date End Date No Ref-Primary, Physician PCP - General 03/31/23 Oleg Aparicio, JULIAC [address] [facility] [address] [place] [address] Assigned Cancer Care Provider 05/06/23 Ana Oreilly MD [address] [place] [address] Assigned OBGYN Provider 05/06/23 documented as of this encounter
--- OUTSIDE RECORDS SUMMARY | 2023-07-14 13:49 | XMS_ITS | Encounter Summary ---
Author Organization [place] Address [address] [place] [address]. [place] [address] Care Team Providers Care Receiving And Processing Supervisor Name Role Phone No Ref-Primary, Physician Primary Care Provider Oleg Aparicio PA-C Unavailable [phone] Ana Oreilly MD Unavailable [phone] Encounter Details Date Type Department Care Team (Late st Contact Info) Description 04/28/2023 [facility] Medical Advice [facility] [address] [place] [phone] Carmen Pollack, RN 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 Tobacco Use Types Packs/Day [...] on filedocumented in this encounter Care Teams Receiving And Processing Supervisor Relationship Specialty Start Date End Date No Ref-Primary, Physician PCP - General 03/31/23 Oleg Aparicio PA-C [address] [place], [place] [address] Assigned Cancer Care Provider 05/06/23 Ana Oreilly MD [address] [place] [address] Assigned OBGYN Provider 05/06/23 documented as of this encounter
--- OUTSIDE RECORDS SUMMARY | 2023-07-14 13:50 | XMS_ITS | Clinical Summary ---
Author Organization [facility] Address [address] [place] [address] Care Team Providers Care Driver Salesman Name Role Phone Elsewhere, Pcp Primary Care Provider Unavailabl e Source Comments Patient records contain information from all sites at [facility]. For routine questions regarding patient records, call [phone] during business hours, M-F 8:00 AM - 5:00 PM Central Time. Record requests for emergency care only can be directed to [phone] at any time.[facility] Allergies No known active allergies Medications Medication Sig Dispensed Refills Start Date End Date Status avvsogk-Xy-jwym-FA (VINATE ONE) 60 mg iron-1 mg per [...] How often do you attend chur or restorationism services? More than 4 times per year 02/21/2022 Do you belong to any clubs o r organizations such as orthodox groups, unions, fraternal or athletic groups, or [...] and heating? Not hard at all 02/21/2022 [facility] [place] [facility] Occupat ional Health - Occupational Stress [...] place to sleep or slept in a penitentiary (including now)? No 02/21/2022 Nutrition Answer Date [...] Sex Assigned at Female 02/21/2022 11:00 AM CASHIER GENERAL Gender Identity Female 02/21/2022 11:00 AM CASHIER GENERAL Sexual Orientation Straight 02/21/2022 11 :00 AM CASHIER GENERAL Last Filed Vital Signs Vital Sign Reading Time Taken Comments Blood Pressure - - Pulse - - Temperature 36.6 ??C (97.9 ??F) 02/24/2022 12:[address] Respiratory Rate - - Oxygen Saturation - - Inhaled Oxygen Concentration - - Weight 72.4 kg (159 lb 9.8 oz) 02/24/2022 12:38 PM CASHIER GENERAL Height 169.7 cm (5' 6.81) 02/24/2022 12:[address] Body Mass Index 25.14 02/24/2022 12:38 PM CASHIER GENERAL Plan of Treatment Health Maintenance Due Date [...] age to complete this topic Care Teams Driver Salesman Relationship Specialty Start Date End Date Elsewhere, Pcp PCP - General Internal Medicine 02/24/22
--- OUTSIDE RECORDS SUMMARY | 2023-07-14 13:50 | XMS_ITS | Referral Summary ---
Author Organization [facility] Address [address] [place] [address] Care Team Providers Care General Magistrate Name Role Phone Elsewhere, Pcp Primary Care Provider Unavailabl e Source Comments Patient records contain information from all sites at [facility]. For routine questions regarding patient records, call [phone] during business hours, M-F 8:00 AM - 5:00 PM Central Time. Record requests for emergency care only can be directed to [phone] at any time.[facility] Allergies No known active allergies Medications Medication Sig Dispensed Refills Start Date End Date Status zzkwnof-Mt-udku-FA (VINATE ONE) 60 mg iron-1 mg per [...] How often do you attend chur or christian services? More than 4 times per year 02/21/2022 Do you belong to any clubs o r organizations such as tenriism groups, unions, fraternal or athletic groups, or [...] and heating? Not hard at all 02/21/2022 [facility] Occupat ional Health - Occupational [...] place to sleep or slept in a residential (including now)? No 02/21/2022 Nutrition Answer Date [...] Sex Assigned at Female 02/21/2022 11:00 AM DISH CLOTH INSPECTOR Gender Identity Female 02/21/2022 11:00 AM DISH CLOTH INSPECTOR Sexual Orientation Straight 02/21/2022 11 :00 AM DISH CLOTH INSPECTOR Last Filed Vital Signs Vital Sign Reading Time Taken Comments Blood Pressure - - Pulse - - Temperature 36.6 ??C (97.9 ??F) 02/24/2022 12:[address] Respiratory Rate - - Oxygen Saturation - - Inhaled Oxygen Concentration - - Weight 72.4 kg (159 lb 9.8 oz) 02/24/2022 12:38 PM DISH CLOTH INSPECTOR Height 169.7 cm (5' 6.81) 02/24/2022 12:[address] Body Mass Index 25.14 02/24/2022 12:38 PM DISH CLOTH INSPECTOR Plan of Treatment Not on file Care Teams General Magistrate Relationship Specialty Start Date End Date Elsewhere, Pcp PCP - General Internal Medicine 02/24/22
--- OUTSIDE RECORDS SUMMARY | 2023-07-14 13:50 | XMS_ITS ---
Author Organization [facility] Address [address] [place] [address] Care Team Providers Care Ship Pilot Name Role Phone Unavailable Unavailable Unavailable Surgery Details Not on file Complications Check Surgery Details section. Procedure Estimated Blood Loss Check Surgery Details section. Procedure Findings Check Surgery Details section. Procedure Specimens Taken Check Surgery Details section.
--- NOTE | 2023-07-14 14:00 | CRLHL7_ITS ---
For Patients: As a result of the Century Cures Act, medical imaging exams and procedure reports are released immediately into your electronic medical record. You may view this report before your referring provider. If you have questions, please contact your health care provider. INDICATION: Third trimester scan, evaluate growth. COMPARISON: 04/27/2023 TECHNIQUE: Real time armstrong scale imaging of the fetus was performed. FINDINGS: Sonographic imaging demonstrates a single living intrauterine gestation. Fetus demonstrates a regular cardiac rate of 137 beats per minute. Fetus has a vertex position. The placenta lies posteriorly. Amniotic fluid volume appears normal and there is a single deepest vertical pocket: 3.9 cm. The estimated weight is 1911gm which lies at the 27th %. BPD 37th percentile. HC 14th percentile. AC is 30th percentile. FL 32nd percentile. The HC/AC ratio measures 1.06 range (0.96-1.13). IMPRESSION: Sonographic gestational age 32 weeks 2 days and sonographic due date 09/06/2023. Good correlation with dates. Estimated weight 27th percentile. Abdominal circumference 30th percentile. Dictated by Warner Ortiz MD @ 07/15/2023 1:19:53 PM (Electronically Signed)
== END 2023-07-14 13:46 | disposition home or self-care (01) ==
LOC: US 13:45
PROVIDERS: PCP Family Medicine; Visit Provider Obstetrics & Gynecology
DX: Z34.93 Encounter for supervision of normal pregnancy, unspecified, third trimester (principal); Z3A.32 32 weeks gestation of pregnancy
CPT/HCPCS: 76816

== ENCOUNTER 2023-07-15 11:21 | Outpatient (CLI) | payer BC, SELFPAY ==
--- OUTSIDE RECORDS SUMMARY | 2023-07-15 11:24 | XMS_ITS | Encounter Summary ---
Author Organization [place] Address [address] [facility] [place] [address] Care Team Providers Care Energy Rater Name Role Phone No Ref-Primary, Physician Primary Care Provider Oleg Aparicio PA-C Unavailable [phone] Ana Oreilly MD Unavailable [phone] Encounter Details Date Type Department Care [...] on filedocumented in this encounter Care Teams Energy Rater Relationship Specialty Start Date End Date No Ref-Primary, Physician PCP - General 03/31/23 Oleg Aparicio PA-C [address] [place] [address] Assigned Cancer Care Provider 05/06/23 Ana Oreilly MD [address] [place] [address] Assigned OBGYN Provider 05/06/23 documented as of this encounter
--- OUTSIDE RECORDS SUMMARY | 2023-07-15 11:24 | XMS_ITS | Encounter Summary ---
Author Organization [place] Address [address] [facility] [place] [address] Care Team Providers Care Banquet Coordinator Name Role Phone No Ref-Primary, Physician Primary Care Provider Oleg Aparicio PA-C Unavailable [phone] Ana Oreilly MD Unavailable [phone] Encounter Details Date Type Department Care [...] on filedocumented in this encounter Care Teams Banquet Coordinator Relationship Specialty Start Date End Date No Ref-Primary, Physician PCP - General 03/31/23 Oleg Aparicio PA-C [address] [place] [address] Assigned Cancer Care Provider 05/06/23 Ana Oreilly MD [address] [place] [address] Assigned OBGYN Provider 05/06/23 documented as of this encounter
--- OUTSIDE RECORDS SUMMARY | 2023-07-15 11:24 | XMS_ITS | Clinical Summary ---
Author Organization [place] Address [address] [facility] [place] [address] Care Team Providers Care Associate Manager Name Role Phone No Ref-Primary, Physician Primary Care Provider Oleg Aparicio PA-C Unavailable [phone] Ana Oreilly MD Unavailable [phone] Allergies No known active allergies Medications [...] Encounters Date Type Department Care Team Description 07/15/2023 Telephone [facility] [address] [place] [address] Oleg Aparicio PA-C CONSENT (Called pt to receive verbal consent to fax to another health office in her care team. LVM to CB.) 07/04/2023 2:30 PM CDT Office Visit [facility] [address] [place] [address] Oleg Aparicio PA-C Pulmonary embolism affecting in second trimester (Primary Dx); Family history of blood clots; 31 weeks gestation of 07/04/2023 Travel 06/22/2023 2:00 PM CDT Lab [facility] [address] [facility] [address] [place] [address] Pulmonary embolism affecting in second trimester 06/22/2023 MyC Medical Advice [facility] [address] [facility] [address] [place] [address] Oleg Aparicio PA-C 06/21/2023 10:00 AM CDT Office Visit [facility] [address] [facility] [address] [place] [address] Ori Adame MD Encounter for ultrasound to check growth (Primary Dx) 06/21/2023 9:30 AM CDT - 06/21/2023 11:59 PM CDT Hospital Encounter [facility] [address] [facility] [address] [place] [address] Ori Adame MD Encounter for ultrasound to check growth Discharge Disposition: Home or Self Care 06/21/2023 Travel 05/31/2023 11:30 AM CDT Office Visit [facility] [address] [facility] [address] [place] [address] Ori Adame MD Encounter for ultrasound to check growth (Primary Dx) 05/31/2023 10:45 AM CDT - 05/31/2023 11:59 PM CDT Hospital Encounter [facility] Medicine [place] [address] [facility] [address] [place] [address] Ori Adame MD Encounter for ultrasound to assess growth Discharge Disposition: Home or Self Care 05/31/2023 Travel 05/10/2023 10:00 AM CDT Office Visit [facility] Medicine [place] [address] [facility] [address] [place] [address] Ori Adame MD Encounter for follow-up ultrasound of anatomy (Primary Dx); History of delivery, currently ; Encounter for ultrasound to assess growth 05/10/2023 9:28 AM CDT - 05/10/2023 11:59 PM CDT Hospital Encounter [facility] [place] [address] [facility] [address] [place] [address] Ori Adame MD Pulmonary embolism affecting in second trimester Discharge Disposition: Home or Self Care 05/10/2023 Travel 05/03/2023 1:00 PM CDT Lab [facility] [address] [place] [phone] Pulmonary embolism affecting in second trimester; Family history of blood clots 04/28/2023 1:30 PM TOOL AND DIE MAKER Office Visit [facility] [place] [phone] Ana Oreilly MD Chan, Ricky Y, PABrightC Pulmonary embolism affecting in second trimester (Primary Dx); Family history of blood clots 04/28/2023 MyC Medical Advice [facility] [place] [phone] Carmen Pollack RN 04/28/2023 Telephone [facility] [place] [phone] Oleg Aparicio PA-C 04/28/2023 Travel 04/27/2023 Travel [...] Respiratory Rate 20 04/12/2023 10:5 8 AM TOOL AND DIE MAKER Oxygen Saturation 97% 07/04/2023 2:28 PM [...] CDT Pulmonary embolism affecting in second trimester [facility] US COMPREHENSIVE SINGLE F/U Routine 06/21/2023 10:50 AM CDT Encounter for ultrasound to check growth [facility] US COMPREHENSIVE SINGLE F/U Routine 05/31/2023 11:40 AM CDT Encounter for ultrasound to assess growth [facility] US COMPREHENSIVE SINGLE F/U Routine 05/10/2023 [...] ANTI XA LEVEL Routine 04/28/2023 2:27 PM TOOL AND DIE MAKER Pulmonary embolism affecting in second trimester from [...] 1:58 PM CDT 06/22/2023 1:[address] [facility] LABORATORY - 06/22/2023 9:38 PM CDT If collected 4-6 hours after administration: Adults: If administered only once daily with a dose of 1.5 mg/k.0-2.0 IU/mL. If administered twice daily with a dose of 1 mg/k.50-1.0 IU/mL. Pediatrics: If administered twice daily: 0.50-1.0 IU/mL. Oleg Aparicio PA-C LAB - BLOOD ORDERABL ES [facility] LABORATORY [facility] Core Lab [address] [facility], [address] [place] [address] * [facility] Comprehensive Single F/U [...] ? Study Date: ??06/21/2023 9:50am Pat. NO: ??[id number] ?Referring ??MD: TRISTA MELLO Site: ??[facility] ? Editor In Chief: Chanda Lazo RDMS : ??1995 ?Age: ?? [...] 2 lb 12 ?oz EFW by ?Hadlock ([id number]) Head / Face / Neck Biometry: Renewable Energy Trader ? 4.9 ? mm CM ?5.5 ? mm ANATOMY ----- The following structures appear normal: Head / Neck ? Cranium. Head size. Head shape. Lateral ventricles. Midline falx. Cerebellum. Cisterna magna. Thalami. Face ? Lips. Profile. Nose. Heart / Thorax ?4-chamber view. RVOT view. LVOT view. 9-tjezym-yntpqvb view. ? Diaphragm. Abdomen ? Stomach. Kidneys. [...] [place] Study Date: 06/21/2023 9:50am Pat. NO: [id number] Referring MD: TRISTA MELLO Site: [facility] Editor In Chief: Chanda Lazo RDMS : 1995 Age: 28 [...] 2 lb 12 oz EFW by Hadlock ([id number]-FL) Head / Face / Neck Biometry: Renewable Energy Trader 4.9 mm CM 5.5 mm ANATOMY ----- The following structures appear normal: Head / Neck Cranium. Head size. Head shape.Lateral ventricles. Midline falx. Cerebellum. Cisterna magna. Thalami. Face Lips. Profile. Nose. Heart / Thorax 4-chamber view. RVOT view. LVOT view.4-gjepwy-qvevnmu view. Diaphragm. Abdomen Stomach. Kidneys. Bladder. Spine [...] fluid volume appeared normal. Ori Adame MD [facility] US ORDERABL ES * Cardiolipin Makenzie [...] CORE/PROT/ENDO UM Specialty Core/Prot/Endo [address] [facility], [address] * Beta 2 Glycoprotein 1 Antibody IgM (05/03/2023 1:03 PM CDT) Beta 2 Glycoprotein 1 Antibody IgM <2.4 <7.0 U/mL 05/04/2023 10:34 AM CDT SPECIALTY CORE/PROT/END O Comment:Negative Blood BLOOD SPECIMEN / Unknown Venipuncture / Unknown 05/03/2023 1:03 PM CDT 05/03/2023 1:03 PM CDT Oleg DUMONTC LAB - BLOOD ORDERABL ES SPECIALTY CORE/PROT/ENDO Specialty Core/Prot/Endo [address] [facility], [address] * Beta 2 Glycoprotein 1 Antibody IgG (05/03/2023 1:03 PM CDT) Beta 2 Glycoprotein 1 Antibody IgG <0.8 <7.0 U/mL 05/04/2023 10:34 AM CDT SPECIALTY CORE/PROT/END O Comment:Negative Blood BLOOD SPECIMEN / Unknown Venipuncture / Unknown 05/03/2023 1:03 PM CDT 05/03/2023 1:03 PM CDT Oleg OREILLY-C LAB - BLOOD ORDERABL ES UM SPECIALTY CORE/PROT/ENDO UM Specialty Core/Prot/Endo [address] [facility] [address], [address] * (ABNORMAL) Lupus Anticoagulant Panel (05/03/2023 [...] of an antiphospholipid syndrome, recommend anticardiolipin and oqcu-5-jasdzqqzmyk n (IgG and IgM) antibody tests. Recommend [...] UM SPECIAL COAGULATION UM Special Coagulation [address] [facility] [address], [address] [place] [address], [facility] from Last 3 Months Care Teams Associate Manager Relationship Specialty Start Date End Date No Ref-Primary, Physician PCP - General 03/31/23 Oleg Aparicio, PABrightC [facility] [address] [place], [place] [address] Assigned Cancer Care Provider 05/06/23 Ana Oreilly MD [address] [address] [place] [address] Assigned OBGYN Provider 05/06/23
--- OUTSIDE RECORDS SUMMARY | 2023-07-15 11:24 | XMS_ITS | Encounter Summary ---
Author Organization [place] Address [address] [place] [address] Care Team Providers Care C Application Developer Name Role Phone No Ref-Primary, Physician Primary Care Provider Oleg Aparicio PA-C Unavailable [phone] Ana Oreilly MD Unavailable [phone] Reason for Referral * Diagnostic Imaging Ultrasound (Routine) - Pending Review Specialty Diagnoses / Procedures Referred By Contac t Referred To Contact Radiology. Diagnoses related condition, antepartum Procedures [facility] US Comprehensive Single F/U Ori Adame MD [address] [address] Referral ID Status Reason Start Date Expiration Date V isits Requested Visits Authorized [id number] Pending Review 05/10/2023 05/09/2024 1 1 Reason for Visit * Diagnostic Imaging Ultrasound (Routine) - Pending Review Specialty Diagnoses / Procedures Referred By Contac t Referred To Contact Radiology. Diagnoses related condition, antepartum Procedures [facility] US Comprehensive Single F/U Ori Adame MD [address] [place] [address] Referral ID Status Reason Start Date Expiration Date V isits Requested Visits Authorized [id number] Pending Review 05/10/2023 05/09/2024 1 1 Encounter Details Date Type Department Care Team (Latest Contact Info) Description 05/31/2023 10:45 AM CDT - 05/31/2023 11:59 PM CDT Hospital Encounter [facility] [place] [address] [place] [address] Ori Adame MD [address] [place] [address] Encounter for ultrasound to assess [...] Procedure Name Priority Date/Time Associated Diagnosis Comments [facility] US COMPREHENSIVE SINGLE F/U Routine 05/31/2023 11:40 AM CDT Encounter for ultrasound to assess growth documented in this encounter Results * [facility] US Comprehensive Single F/U (05/31/2023 11:40 [...] ? Study Date: ??05/31/2023 10:49am Pat. NO: ??[id number] ?Referring ??MD: TRISTA MELLO Site: ??[facility] ? [employer]illery: Chanda Laoz RDMS : ??1995 ?Age: ?? 28 ----- [...] lb 13 ? oz EFW by ?Hadlock ([id number]-FL) Head / Face / Neck Biometry: Working Second Hand ? 5.7 ? mm CM ?7.7 ? mm ANATOMY ----- The following structures appear normal: Head / Neck ? Cranium. Head size. Head shape. Lateral ventricles. Midline falx. Cavum septi pellucidi. Cerebellum. Cisterna magna. Thalami. Heart / Thorax ?4-chamber view. RVOT view. LVOT view. 3-ovbdxk-umuhyhb view. ? Diaphragm. Abdomen ? Stomach. Kidneys. [...] [place] Study Date: 05/31/2023 10:49am Pat. NO: [id number] Referring MD: TRISTA MELLO Site: [facility] [employer]illery: Chanda Lazo RDMS : 1995 Age: 28 [...] 1 lb 13 oz EFW by Hadlock ([id number]-FL) Head / Face / Neck Biometry: Working Second Hand 5.7 mm CM 7.7 mm ANATOMY ----- The following structures appear normal: Head / Neck Cranium. Head size. Head shape.Lateral ventricles. Midline falx. Cavum septi pellucidi. Cerebellum.Cisterna magna. Thalami. Heart / Thorax 4-chamber view. RVOT view. LVOT view.7-jqxhot-uqvrkfx view. Diaphragm. Abdomen Stomach. Kidneys. Bladder. Spine [...] fluid volume appeared normal. Ori [facility] MD [facility] ES documented in this encounter Visit Diagnoses Diagnosis Encounter for ultrasound to assess growth documented in this encounter Care Teams C Application Developer Relationship Specialty Start Date End Date No Ref-Primary, Physician PCP - General 03/31/23 Oleg Aparicio, RUPAL [address] [place] [address] Assigned Cancer Care Provider 05/06/23 Ana Oreilly MD [address] [address] Assigned OBGYN Provider 05/06/23 documented as of this encounter
--- OUTSIDE RECORDS SUMMARY | 2023-07-15 11:24 | XMS_ITS | Encounter Summary ---
Author Organization [place] Address [address] [place] [address]. [place] [address] Care Team Providers Care Car Barn Laborer Name Role Phone No Ref-Primary, Physician Primary Care Provider Oleg Aparicio PA-C Unavailable [phone] Ana Oreilly MD Unavailable [phone] Encounter Details Date Type Department Care Team (Late st Contact Info) Description 06/22/2023 2:00 PM CDT Lab [facility] [address] [facility] [address] [place] [address] Pulmonary embolism affecting in second [...] ES [facility]U LABORATORY [facility] Core Lab [address] [facility], [address] [address] documented in this encounter Visit Diagnoses Diagnosis Pulmonary embolism affecting in second trimester documented in this encounter Care Teams Car Barn Laborer Relationship Specialty Start Date End Date No Ref-Primary, Physician PCP - General 03/31/23 Oleg Aparicio PA-C [address] [place], [place] [address] Assigned Cancer Care Provider 05/06/23 Ana Oreilly MD [address] [place], [place] [address] Assigned OBGYN Provider 05/06/23 documented as of this encounter
--- OUTSIDE RECORDS SUMMARY | 2023-07-15 11:24 | XMS_ITS | Encounter Summary ---
Author Organization [place] Address [address] [place] [address]. [place] [address] Care Team Providers Care Cash Applications Coordinator Name Role Phone No Ref-Primary, Physician Primary Care Provider Oleg Aparicio PA-C Unavailable [phone] Ana Oreilly MD Unavailable [phone] Reason for Visit * Reason Onset Date Comments CONSENT 07/15/2023 Called pt to rec eive verbal consent to fax to another health office in her care team. LVM to CB. Encounter Details Date Type Department Care Team ([facility] st Contact Info) Description 07/15/2023 Telephone [facility] [address] [facility] [address] [place] [address] Oleg Aparicio PA-C [address] [place] [address] CONSENT (Called pt to receive verbal consent to fax to another health office in her care team. LVM to CB.) 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 Tobacco Use Types Packs/Day Years [...] on filedocumented in this encounter Care Teams Cash Applications Coordinator Relationship Specialty Start Date End Date No Ref-Primary, Physician PCP - General 03/31/23 Oleg Aparicio, JULIAC [facility] [address] [place] [address] Assigned Cancer Care Provider 05/06/23 Ana Oreilly MD [address] [place] [address] [address] [place], [place] [address] Assigned OBGYN Provider 05/06/23 documented as of this encounter
--- OUTSIDE RECORDS SUMMARY | 2023-07-15 11:24 | XMS_ITS | Encounter Summary ---
Author Organization [place] Address [address] [place] [address] Care Team Providers Care Product Development Ecologist Name Role Phone No Ref-Primary, Physician Primary Care Provider Oleg Aparicio PA-C Unavailable [phone] Ana Oreilly MD Unavailable [phone] Reason for Referral * Diagnostic Imaging Ultrasound (Routine) - Pending Review Specialty Diagnoses / Procedures Referred By Contac t Referred To Contact Radiology. Diagnoses Encounter for ultrasound to check growth Procedures [facility] US Comprehensive Single F/U Ori Adame MD [address] [address] Referral ID Status Reason Start Date Expiration Date V isits Requested Visits Authorized [id number] Pending Review 05/31/2023 05/30/2024 1 1 Reason for Visit * Diagnostic Imaging Ultrasound (Routine) - Pending Review Specialty Diagnoses / Procedures Referred By Contac jose Referred To Contact Radiology. Diagnoses Encounter for ultrasound to check growth Procedures [facility] US Comprehensive Single F/U Ori Adame MD [address] [place] [address] Referral ID Status Reason Start Date Expiration Date V isits Requested Visits Authorized [id number] Pending Review 05/31/2023 05/30/2024 1 1 Encounter Details Date Type Department Care Team (Latest Contact Info) Description 06/21/2023 9:30 AM CDT - 06/21/2023 11:59 PM CDT Hospital Encounter [facility] [place] [address] [place] [address] Ori Adame MD [address] [place] [address] Encounter for ultrasound to check [...] Name Priority Date/Time Associated Diagnosis Comments [facility] US COMPREHENSIVE SINGLE F/U Routine 06/21/2023 10:50 AM CDT Encounter for ultrasound to check growth documented in this encounter Results * [facility] US Comprehensive Single F/U (06/21/2023 10:50 AM [...] ? Study Date: ??06/21/2023 9:50am Pat. NO: ??[id number] ?Referring ??MD: TRISTA MELLO Site: ??[facility] ? Patternmaker Apprentice Metal: Chanda Lazo RDMS : ??1995 ?Age: ?? [...] 2 lb 12 ?oz EFW by ?Hadlock ([id number]-FL) Head / Face / Neck Biometry: Jewel Gauger ? 4.9 ? mm CM ?5.5 ? mm ANATOMY ----- The following structures appear normal: Head / Neck ? Cranium. Head size. Head shape. Lateral ventricles. Midline falx. Cerebellum. Cisterna magna. Thalami. Face ? Lips. Profile. Nose. Heart / Thorax ?4-chamber view. RVOT view. LVOT view. 3-jjmzig-phfvcmu view. ? Diaphragm. Abdomen ? Stomach. Kidneys. [...] [place] Study Date: 06/21/2023 9:50am Pat. NO: [id number] Referring MD: TRISTA MELLO Site: [facility] Patternmaker Apprentice Metal: Chanda Lazo RDMS : 1995 Age: 28 [...] 2 lb 12 oz EFW by Hadlock ([id number]-TH-BM-FL) Head / Face / Neck Biometry: Jewel Gauger 4.9 mm CM 5.5 mm ANATOMY ----- The following structures appear normal: Head / Neck Cranium. Head size. Head shape.Lateral ventricles. Midline falx. Cerebellum. Cisterna magna. Thalami. Face Lips. Profile. Nose. Heart / Thorax 4-chamber view. RVOT view. LVOT view.5-yjksaa-hxkpztu view. Diaphragm. Abdomen Stomach. Kidneys. Bladder. Spine [...] fluid volume appeared normal. Ori Adame MD [facility] documented in this encounter Visit Diagnoses Diagnosis Encounter for ultrasound to check growth documented in this encounter Care Teams Product Development Ecologist Relationship Specialty Start Date End Date No Ref-Primary, Physician PCP - General 03/31/23 Oleg Aparicio, RUPAL [address] [place] [address] Assigned Cancer Care Provider 05/06/23 Ana Oreilly MD [address] [place] [address] Assigned OBGYN Provider 05/06/23 documented as of this encounter
--- OUTSIDE RECORDS SUMMARY | 2023-07-15 11:24 | XMS_ITS | Encounter Summary ---
Author Organization [place] Address [address] [facility] [place] [address] Care Team Providers Care Log Check Scaler Name Role Phone No Ref-Primary, Physician Primary Care Provider Oleg Aparicio PA-C Unavailable [phone] Ana Oreilly MD Unavailable [phone] Encounter Details Date Type Department Care [...] on filedocumented in this encounter Care Teams Log Check Scaler Relationship Specialty Start Date End Date No Ref-Primary, Physician PCP - General 03/31/23 Oleg Aparicio PA-C [address] [place] [address] Assigned Cancer Care Provider 05/06/23 Ana Oreilly MD [address] [place] [address] Assigned OBGYN Provider 05/06/23 documented as of this encounter
--- OUTSIDE RECORDS SUMMARY | 2023-07-15 11:24 | XMS_ITS | Encounter Summary ---
Author Organization [place] Address [address] [place] [address]. [place] [address] Care Team Providers Care Air Conditioning Equipment Mechanic Name Role Phone No Ref-Primary, Physician Primary Care Provider Oleg Aparicio PA-C Unavailable [phone] Ana Oreilly MD Unavailable [phone] Reason for Visit * Reason Comments Deep Vein Thrombosis Encounter Details Date Type Department Care Team (Late st Contact Info) Description 07/04/2023 2:30 PM CDT Office Visit [facility] [address] [place] [address] Oleg Aparicio PA-C [address] [place] [address] Pulmonary embolism affecting in second [...] from the original note were not included. [facility] [address] [place] [address] Main: [phone], Patient seen at: [facility] at [address] [place] [address] Outpatient Visit Note: Patient: Gabrielle Mcamhon : 1995 DEBORAH: July 04, 2023 Location of this va underwriter at the time of this clinic visit was conducted: [facility]. Location of the patient at the time of this clinic visit was conducted: [facility]. [...] up. She was last seen by this va underwriter back on 04/28/2023. Thrombosis History Summary: Found [...] both lower extremities. 03/08/2023, she presented to [facility] emergency department with chest pain. CTA [...] today, the emergency department physician did call [facility] and consult them about [...] History: 04/28/2023, she established care with this va underwriter and I determined that her pulmonary embolic [...] and PmHx: All are reviewed by this va underwriter today via electronic medical records 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: [...] venous thromboembolism. Oleg Aparicio PA-C, MPAS Physician Resident Surgeon [facility]. The [...] incidental documented in this encounter Care Teams Air Conditioning Equipment Mechanic Relationship Specialty Start Date End Date No Ref-Primary, Physician PCP - General 03/31/23 Oleg Aparicio PA-C [address] [place] [address] Assigned Cancer Care Provider 05/06/23 Ana Oreilly MD [address] [place] [address] Assigned OBGYN Provider 05/06/23 documented as of this encounter
--- OUTSIDE RECORDS SUMMARY | 2023-07-15 11:24 | XMS_ITS | Referral Summary ---
Author Organization [place] Address [address] [facility] [place] [address] Care Team Providers Care Academic Advisement Director Name Role Phone No Ref-Primary, Physician Primary Care Provider Oleg Aparicio PA-C Unavailable [phone] Ana Oreilly MD Unavailable [phone] Encounters Date Type Department Care Team Description 07/15/2023 Telephone [facility] [address] [place] [phone] Oleg Aparicio PA-C CONSENT (Called pt to receive verbal consent to fax to another health office in her care team. LVM to CB.) 07/04/2023 Travel 07/04/2023 2:30 PM CDT Office Visit [facility] [address] [place] [address] Oleg Aparicio PA-C Pulmonary embolism affecting in second trimester (Primary Dx); Family history of blood clots; 31 weeks gestation of 06/22/2023 2:00 PM CDT Lab [facility] [address] [place] [address] Pulmonary embolism affecting in second trimester 06/22/2023 MyC Medical Advice [facility] [address] [place] [phone] Oleg Aparicio PA-C 06/21/2023 Travel 06/21/2023 10:00 AM CDT Office Visit [facility] [address] [place] [phone] Ori Adame MD Encounter for ultrasound to check growth (Primary Dx) 06/21/2023 9:30 AM CDT - 06/21/2023 11:59 PM CDT Hospital Encounter [facility] [address] [place] [phone] Ori Adame MD Encounter for ultrasound to check growth Discharge Disposition: Home or Self Care 05/31/2023 Travel 05/31/2023 11:30 AM CDT Office Visit [facility] [place] [address] [place] [phone] Ori Adame MD Encounter for ultrasound to check growth (Primary Dx) 05/31/2023 10:45 AM CDT - 05/31/2023 11:59 PM CDT Hospital Encounter [facility] [place] [address] [place] [phone] Ori Adame MD Encounter for ultrasound to assess growth Discharge Disposition: Home or Self Care 05/10/2023 Travel 05/10/2023 10:00 AM CDT Office Visit [facility] [place] [address] [place] [phone] Ori Adame MD Encounter for follow-up ultrasound of anatomy (Primary Dx); History of delivery, currently ; Encounter for ultrasound to assess growth 05/10/2023 9:28 AM CDT - 05/10/2023 11:59 PM CDT Hospital Encounter [facility] [place] [address] [place] [phone] Ori Adame MD Pulmonary embolism affecting in second trimester Discharge Disposition: Home or Self Care 05/03/2023 1:00 PM CDT Lab [facility] [address] [place] [address] Pulmonary embolism affecting in second trimester; Family history of blood clots 04/28/2023 MyC Medical Advice [facility] [address] [place] [phone] Carmen Pollack RN 04/28/2023 Telephone [facility] [address] [place] [phone] Oleg Aparicio PA-C 04/28/2023 Travel 04/28/2023 1:30 PM FOLDER OPERATOR Office Visit [facility] [address] [place] [phone] Ana Oreilly MD Chan, Ricky Y, PA-C [...] Respiratory Rate 20 04/12/2023 10:5 8 AM FOLDER OPERATOR Oxygen Saturation 97% 07/04/2023 2:28 PM CDT [...] CDT Pulmonary embolism affecting in second trimester [facility] US COMPREHENSIVE SINGLE F/U Routine 06/21/2023 10:50 AM CDT Encounter for ultrasound to check growth [facility] US COMPREHENSIVE SINGLE F/U Routine 05/31/2023 11:40 AM CDT Encounter for ultrasound to assess growth [facility] US COMPREHENSIVE SINGLE F/U Routine 05/10/2023 [...] ANTI XA LEVEL Routine 04/28/2023 2:27 PM FOLDER OPERATOR Pulmonary embolism affecting in second trimester from Last 3 Months Results * Low Molecular Weight Heparin Anti Xa Level (06/22/2023 1:58 PM CDT) Only the most recent of3 resultswithin the time period is included. [facility] Anti Xa Low Molecular Weight 0.58 [...] LAB - BLOOD ORDERABL ES [facility] [address] [facility], [address] [place] [address], [facility] * [facility] Comprehensive Single F/U (06/21/2023 10:50 AM CDT) [...] ? Study Date: ??06/21/2023 9:50am Pat. NO: ??[id number] ?Referring ??MD: TRISTA MELLO Site: ??[facility] ? Machine Egg Washer: Chanda LazoMELLY : ??1995 ?Age: ?? 28 ----- INDICATION [...] ?Hadlock Humerus ?49.1 ?mm ? 28w 6d ?Jooj Weight Calculation: EFW ? 1,258 ?g ? 18% ?Hadlock EFW (lb,oz) ? 2 lb 12 ?oz EFW by ?Hadlock ([id number]) Head / Face / Neck Biometry: Manager Report ? 4.9 ? mm CM ?5.5 ? mm ANATOMY ----- The following structures appear normal: Head / Neck ? Cranium. Head size. Head shape. Lateral ventricles. Midline falx. Cerebellum. Cisterna magna. Thalami. Face ? Lips. Profile. Nose. Heart / Thorax ?4-chamber view. RVOT view. LVOT view. 3-upibef-qhbdohx view. ? Diaphragm. Abdomen ? Stomach. Kidneys. [...] [place] Study Date: 06/21/2023 9:50am Pat. NO: [id number] Referring MD: TRISTA MELLO Site: [facility] Machine Egg Washer: Chanda Lazo RDMS : 1995 Age: 28 [...] 2 lb 12 oz EFW by Hadlock ([id number]) Head / Face / Neck Biometry: Manager Report 4.9 mm CM 5.5 mm ANATOMY ----- The following structures appear normal: Head / Neck Cranium. Head size. Head shape.Lateral ventricles. Midline falx. Cerebellum. Cisterna magna. Thalami. Face Lips. Profile. Nose. Heart / Thorax 4-chamber view. RVOT view. LVOT view.0-kjzzva-jmfzigs view. Diaphragm. Abdomen Stomach. Kidneys. Bladder. Spine [...] fluid volume appeared normal. Ori Adame MD IMClemente [facility] US ORDERABL ES * Cardiolipin Makenzie [...] ES UM SPECIALTY CORE/PROT/ENDO Specialty Core/Prot/Endo [address] [facility], [address] * Beta 2 Glycoprotein 1 Antibody IgM (05/03/2023 1:03 PM CDT) Beta 2 Glycoprotein 1 Antibody IgM <2.4 <7.0 U/mL 05/04/2023 10:34 AM CDT SPECIALTY CORE/PROT/END O Comment:Negative Blood BLOOD SPECIMEN / Unknown Venipuncture / Unknown 05/03/2023 1:03 PM CDT 05/03/2023 1:03 PM CDT Oleg Aparicio PA-C LAB - BLOOD ORDERABL ES UM SPECIALTY CORE/PROT/ENDO UM Specialty Core/Prot/Endo [address] [facility], [address] * Beta 2 Glycoprotein 1 Antibody IgG (05/03/2023 1:03 PM CDT) Beta 2 Glycoprotein 1 Antibody IgG <0.8 <7.0 U/mL 05/04/2023 10:34 AM CDT UM SPECIALTY CORE/PROT/END O Comment:Negative Blood BLOOD SPECIMEN / Unknown Venipuncture / Unknown 05/03/2023 1:03 PM CDT 05/03/2023 1:03 PM CDT Oleg Aparicio PA-C LAB - BLOOD ORDERABL ES Performing Organization Address City/[facility]/ZIP Co de Phone Number UM SPECIALTY CORE/PROT/ENDO Specialty Core/Prot/Endo [address] [facility], [address] * (ABNORMAL) Lupus Anticoagulant Panel [...] of an antiphospholipid syndrome, recommend anticardiolipin and tzxt-6-sunkdzqyzps n (IgG and IgM) antibody tests. Recommend [...] UM SPECIAL COAGULATION UM Special Coagulation [address] [facility], [address] [address], [facility] from Last 3 Months Care Teams Academic Advisement Director Relationship Specialty Start Date End Date No Ref-Primary, Physician PCP - General 03/31/23 Oleg Aparicio PA-C [address] [place], [place] [address] Assigned Cancer Care Provider 05/06/23 Ana Oreilly MD [address] [place], [place] [address] Assigned OBGYN Provider 05/06/23
--- OUTSIDE RECORDS SUMMARY | 2023-07-15 11:24 | XMS_ITS | Encounter Summary ---
Author Organization [place] Address [address] [place] [address] Care Team Providers Care Terra Cotta Roofer Name Role Phone No Ref-Primary, Physician Primary Care Provider Oleg Aparicio PA-C Unavailable [phone] Ana Orelily MD Unavailable [phone] Reason for Referral * Diagnostic Imaging Ultrasound (Routine) - Pending Review Specialty Diagnoses / Procedures Referred By Diana garcia Referred To Contact Radiology. Diagnoses Encounter for ultrasound to check growth Procedures [facility] US Comprehensive Single F/U Ori Adame MD [address] [place] [address] Referral ID Status Reason Start Date Expiration Date V isits Requested Visits Authorized [id number] Pending Review 05/31/2023 05/30/2024 1 1 Reason for Visit * Reason Comments Ultrasound RL2-reassess g rowth, EFW 15% Encounter Details Date Type Department Care Team (Late st Contact Info) Description 05/31/2023 11:30 AM CDT Office Visit [facility] [place] [address] [place] [phone] Ori Adame MD [address] [place] [address] Encounter for ultrasound to check [...] for details of today's US at the [facility]. Ori Adame MD Maternal- Medicine documented in [...] OB givenhistory of PE. SBAR given to [facility] (Dr. Adame), see their note in Epic. documented in this encounter Plan of Treatment Not on file documented as of this encounter Results * [facility] US Comprehensive Single F/U (06/21/2023 10:50 AM [...] ? Study Date: ??06/21/2023 9:50am Pat. NO: ??[id number] ?Referring ??MD: TRISTA MELLO Site: ??[facility] ? Strike On Machine Operator: Chanda Lazo RDMS : ??1995 [...] 2 lb 12 ?oz EFW by ?Hadlock ([id number]-FL) Head / Face / Neck Biometry: Hardware Installer ? 4.9 ? mm CM ?5.5 ? mm ANATOMY ----- The following structures appear normal: Head / Neck ? Cranium. Head size. Head shape. Lateral ventricles. Midline falx. Cerebellum. Cisterna magna. Thalami. Face ? Lips. Profile. Nose. Heart / Thorax ?4-chamber view. RVOT view. LVOT view. 2-kjjaso-rnhxjvt view. ? Diaphragm. Abdomen ? Stomach. Kidneys. [...] [place] Study Date: 06/21/2023 9:50am Pat. NO: [id number] Referring MD: TRISTA MELLO Site: [facility] Strike On Machine Operator: Chanda Lazo RDMS : 1995 [...] 2 lb 12 oz EFW by Hadlock ([id number]-[id number]-FL) Head / Face / Neck Biometry: Hardware Installer 4.9 mm CM 5.5 mm ANATOMY ----- The following structures appear normal: Head / Neck Cranium. Head size. Head shape.Lateral ventricles. Midline falx. Cerebellum. Cisterna magna. Thalami. Face Lips. Profile. Nose. Heart / Thorax 4-chamber view. RVOT view. LVOT view.4-vkuidt-stcggyj view. Diaphragm. Abdomen Stomach. Kidneys. Bladder. Spine [...] [facility] US ORDERABL ES documented in this encounter Visit Diagnoses Diagnosis Encounter for ultrasound to check growth- Primary Encounter for ultrasound to check growth documented in this encounter Care Teams Terra Cotta Roofer Relationship Specialty Start Date End Date No Ref-Primary, Physician PCP - General 03/31/23 Oleg Aparicio PA-C [address] [facility] [address] [place] [address] Assigned Cancer Care Provider 05/06/23 Ana Oreilly MD [address] [address] [place], [place] [address] Assigned OBGYN Provider 05/06/23 documented as of this encounter
--- OUTSIDE RECORDS SUMMARY | 2023-07-15 11:24 | XMS_ITS | Encounter Summary ---
Author Organization [place] Address [address] [facility] [place] [address] Care Team Providers Care Cartridge Maker Name Role Phone No Ref-Primary, Physician Primary Care Provider Oleg Aparicio PA-C Unavailable [phone] Ana Oreilly MD Unavailable [phone] Reason for Visit * Reason Comments Ultrasound RL2-EFW14% Encounter Details Date Type Department Care Team (Late st Contact Info) Description 06/21/2023 10:00 AM CDT Office Visit [facility] [place] [address] [place] [address] Ori Adame MD [address] [place] [address] Encounter for ultrasound to check [...] [facility] Ori Adame MD Maternal- Medicine documented in this encounter Nursing Notes * Maar Cheung, RN - 06/21/2023 10:00 AM CDT Patient reports good movement, reports Everton Thomas contractions, denies leaking of fluid, or bleeding. SBAR given to [facility] , see their note in Epic. documented in this encounter Plan of Treatment Not on file documented as of this encounter Visit Diagnoses Diagnosis Encounter for ultrasound to check growth- Primary documented in this encounter Care Teams Cartridge Maker Relationship Specialty Start Date End Date No Ref-Primary, Physician PCP - General 03/31/23 Oleg Aparicio, PA-C [address] [place], [place] [address] Assigned Cancer Care Provider 05/06/23 Ana Oreilly MD [address] [place], [place] [address] Assigned OBGYN Provider 05/06/23 documented as of this encounter
--- OUTSIDE RECORDS SUMMARY | 2023-07-15 11:24 | XMS_ITS | Encounter Summary ---
Author Organization [place] Address [address] [place] [address]. [place] [address] Care Team Providers Care Taxation Economist Name Role Phone No Ref-Primary, Physician Primary Care Provider Oleg Aparicio PA-C Unavailable [phone] Ana Oreilly MD Unavailable [phone] Encounter Details Date Type Department Care Team (Late st Contact Info) Description 06/22/2023 [facility] Medical Advice [facility] [address] [place] [phone] Oleg Aparicio PA-C [address] [place] [address] 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 Tobacco Use Types [...] Lovenox at 8:56 AM. She needs to pharmacy picking tech refills but wants to make sure she is on the correct dose as she recently started her third trimester. Patient verbalized understanding and will go to lab. Sandie White RN, BSN, PCCN Nurse Clinician [facility] [address] [place] [address] [address], [place] [phone] Office, direct: [phone] Main office number: [phone] Pronouns: She, her, hers documented in this encounter Plan of Treatment Not on file documented as of this encounter Visit Diagnoses Not on filedocumented in this encounter Care Teams Taxation Economist Relationship Specialty Start Date End Date No Ref-Primary, Physician PCP - General 03/31/23 Oleg Aparicio, PABrightC [address] [place] [address] [address] [place], [place] [address] Assigned Cancer Care Provider 05/06/23 Ana Oreilly MD [address] [place] [id number] Assigned OBGYN Provider 05/06/23 documented as of this encounter
--- OUTSIDE RECORDS SUMMARY | 2023-07-15 11:25 | XMS_ITS | Encounter Summary ---
Author Organization [place] Address [address] [facility] [place] [address] Care Team Providers Care Gas Appliance Installer Name Role Phone No Ref-Primary, Physician Primary Care Provider Oleg Aparicio PA-C Unavailable [phone] Ana Oreilly MD Unavailable [phone] Reason for Referral * Diagnostic Imaging Ultrasound (Routine) - Pending Review Specialty Diagnoses / Procedures Referred By Diana t Referred To Contact Radiology. Diagnoses related condition, antepartum Procedures [facility] US Comprehensive Single F/U Ori Adame MD [address] [place] [address] Referral ID Status Reason Start Date Expiration Date V isits Requested Visits Authorized [id number] Pending Review 05/10/2023 05/09/2024 1 1 Reason for Visit * Reason Comments Ultrasound RL2/TV- Subopt anato my, hx PTD Encounter Details Date Type Department Care Team (Late st Contact Info) Description 05/10/2023 10:00 AM CDT Office Visit [facility] [place] [address] [facility] [address] [place] [address] Ori Adame MD [address] [place] [address] Encounter for follow-up ultrasound of [...] for details of today's US at the [facility]. Ori Adame MD Maternal- Medicine documented in this encounter Nursing Notes * Alma Soriano RN - 05/10/2023 10:00 AM CDT Patient reports positive movement, denies pain, denies contractions/pre- term labor, leaking of fluid, or bleeding. Patient denies headache, visual changes, nausea/vomiting, epigastric pain related to preeclampsia. Education provided to patient on RL2/TV. SBAR given to [facility] MD, see their note in Epic. Alma Soriano RN documented in this encounter Plan of Treatment Not on file documented as of this encounter Results * [facility] US Comprehensive Single F/U (05/31/2023 11:40 [...] ? Study Date: ??05/31/2023 10:49am Pat. NO: ??[id number] ?Referring ??MD: TRISTA MELLO Site: ??[facility] ? Electroplater: Chanda Lazo RDMS : ??1995 ?Age: ?? [...] lb 13 ? oz EFW by ?Hadlock ([id number]-FL) Head / Face / Neck Biometry: Sports Book Server ? 5.7 ? mm CM ?7.7 ? mm ANATOMY ----- The following structures appear normal: Head / Neck ? Cranium. Head size. Head shape. Lateral ventricles. Midline falx. Cavum septi pellucidi. Cerebellum. Cisterna magna. Thalami. Heart / Thorax ?4-chamber view. RVOT view. LVOT view. 6-jbmkfg-tpageyi view. ? Diaphragm. Abdomen ? Stomach. Kidneys. [...] [place] Study Date: 05/31/2023 10:49am Pat. NO: [id number] Referring MD: TRISTA MELLO Site: [employer] Electroplater: Chanda Lazo RDMS : 1995 Age: 28 [...] 1 lb 13 oz EFW by Hadlock ([id number]) Head / Face / Neck Biometry: Sports Book Server 5.7 mm CM 7.7 mm ANATOMY ----- The following structures appear normal: Head / Neck Cranium. Head size. Head shape.Lateral ventricles. Midline falx. Cavum septi pellucidi. Cerebellum.Cisterna magna. Thalami. Heart / Thorax 4-chamber view. RVOT view. LVOT view.0-pnalkp-fjuhtpv view. Diaphragm. Abdomen Stomach. Kidneys. Bladder. Spine [...] volume appeared normal. Ori Adame MD IMG [facility] US ORDERABL ES documented in this encounter Visit Diagnoses Diagnosis Encounter for follow-up ultrasound of anatomy- Primary History of delivery, currently with history of pre-term labor Encounter for ultrasound to assess growth Encounter for ultrasound to assess growth documented in this encounter Care Teams Gas Appliance Installer Relationship Specialty Start Date End Date No Ref-Primary, Physician PCP - General 03/31/23 Oleg Aparicio PA-C [address] [place], [place] [address] Assigned Cancer Care Provider 05/06/23 Ana Oreilly MD [address] [facility] [address] [place], [place] [address] Assigned OBGYN Provider 05/06/23 documented as of this encounter
--- OUTSIDE RECORDS SUMMARY | 2023-07-15 11:25 | XMS_ITS | Encounter Summary ---
Author Organization [place] Address [address] [place] [address]. [place] [address] Care Team Providers Care Inventory Control Planner Name Role Phone No Ref-Primary, Physician Primary Care Provider Oleg Aparicio PA-C Unavailable [phone] Ana Oreilly MD Unavailable [phone] Encounter Details Date Type Department Care Team (Late st Contact Info) Description 04/28/2023 [facility] Medical Advice [facility] [address] [place] [phone] Carmen Pollack, RN 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 Tobacco Use [...] on filedocumented in this encounter Care Teams Inventory Control Planner Relationship Specialty Start Date End Date No Ref-Primary, Physician PCP - General 03/31/23 Oleg Aparicio PA-C [address] [place], [place] [address] Assigned Cancer Care Provider 05/06/23 Ana Oreilly MD [address] [place] [address] Assigned OBGYN Provider 05/06/23 documented as of this encounter
--- OUTSIDE RECORDS SUMMARY | 2023-07-15 11:25 | XMS_ITS | Referral Summary ---
Author Organization [facility] Address [address] [place] [address] Care Team Providers Care Garage Laborer Name Role Phone Elsewhere, Pcp Primary Care Provider Unavailabl e Source Comments Patient records contain information from all sites at [facility]. For routine questions regarding patient records, call [phone] during business hours, M-F 8:00 AM - 5:00 PM Central Time. Record requests for emergency care only can be directed to [phone] at any time.[facility] Allergies No known active allergies Medications Medication Sig Dispensed Refills Start Date End Date Status dscpgua-Pp-yowu-FA (VINATE ONE) 60 mg iron-1 mg per [...] How often do you attend chur or latter-day services? More than 4 times per year 02/21/2022 Do you belong to any clubs o r organizations such as yazidism groups, unions, fraternal or athletic groups, or [...] and heating? Not hard at all 02/21/2022 [facility] - Occupational [...] place to sleep or slept in a half-way (including now)? No 02/21/2022 Nutrition Answer Date [...] Sex Assigned at Female 02/21/2022 11:00 AM SPORTS DEVELOPMENT OFFICER Gender Identity Female 02/21/2022 11:00 AM SPORTS DEVELOPMENT OFFICER Sexual Orientation Straight 02/21/2022 11 :00 AM SPORTS DEVELOPMENT OFFICER Last Filed Vital Signs Vital Sign Reading Time Taken Comments Blood Pressure - - Pulse - - Temperature 36.6 ??C (97.9 ??F) 02/24/2022 12:[address] Respiratory Rate - - Oxygen Saturation - - Inhaled Oxygen Concentration - - Weight 72.4 kg (159 lb 9.8 oz) 02/24/2022 12:38 PM SPORTS DEVELOPMENT OFFICER Height 169.7 cm (5' 6.81) 02/24/2022 12:[address] Body Mass Index 25.14 02/24/2022 12:38 PM SPORTS DEVELOPMENT OFFICER Plan of Treatment Not on file Care Teams Garage Laborer Relationship Specialty Start Date End Date Elsewhere, Pcp PCP - General Internal Medicine 02/24/22
--- OUTSIDE RECORDS SUMMARY | 2023-07-15 11:25 | XMS_ITS | Encounter Summary ---
Author Organization [facility] Address [address] [place] [address]. [place] [address] Care Team Providers Care Fleet Administrative Assistant Name Role Phone No Ref-Primary, Physician [...] on filedocumented in this encounter Care Teams Fleet Administrative Assistant Relationship Specialty Start Date End Date No Ref-Primary, Physician PCP - General 03/31/23 documented as of this encounter
--- OUTSIDE RECORDS SUMMARY | 2023-07-15 11:25 | XMS_ITS | Encounter Summary ---
Author Organization [facility] Address [address] [place] [address]. [place] [address] Care Team Providers Care Chef Teacher Name Role Phone No Ref-Primary, Physician [...] on filedocumented in this encounter Care Teams Chef Teacher Relationship Specialty Start Date End Date No Ref-Primary, Physician PCP - General 03/31/23 documented as of this encounter
--- OUTSIDE RECORDS SUMMARY | 2023-07-15 11:25 | XMS_ITS | Encounter Summary ---
Author Organization [facility] Address [address] [place] [address] Care Team Providers Care Chairperson Anesthesiology Name Role Phone No Ref-Primary, Physician Primary Care Provider Oleg Aparicio PA-C Unavailable [phone] Ana Oreilly MD Unavailable [phone] Reason for Referral * Diagnostic Imaging Ultrasound (Routine) - Pending Review Specialty Diagnoses / Procedures Referred By Contac t Referred To Contact Radiology. Diagnoses Pulmonary embolism affecting in second trimester Procedures [facility] US Comprehensive Single F/U Ana Oreilly MD [address] [place] [address] Referral ID Status Reason Start Date Expiration Date V isits Requested Visits Authorized [id number] Pending Review 04/12/2023 04/11/2024 1 1 Reason for Visit * Diagnostic Imaging Ultrasound (Routine) - Pending Review Specialty Diagnoses / Procedures Referred By Contac t Referred To Contact Radiology. Diagnoses Pulmonary embolism affecting in second trimester Procedures [facility] US Comprehensive Single F/U Ana Oreilly MD [address] [place] [address] Referral ID Status Reason Start Date Expiration Date V isits Requested Visits Authorized [id number] Pending Review 04/12/2023 04/11/2024 1 1 Encounter Details Date Type Department Care Team (Latest Contact Info) Description 05/10/2023 9:28 AM CDT - 05/10/2023 11:59 PM CDT Hospital Encounter [facility] M[facility] Medicine [facility] [place] [address] [place] [address] Ori Adame MD [address] [place] [address] Pulmonary embolism affecting in second [...] Procedure Name Priority Date/Time Associated Diagnosis Comments [facility] COMPREHENSIVE SINGLE F/U Routine 05/10/2023 10:08 AM CDT Pulmonary embolism affecting in second trimester documented in this encounter Results * [facility] Comprehensive Single F/U (05/10/2023 10:08 AM [...] ? Study Date: ??05/10/2023 9:30am Pat. NO: ??[id number] ?Referring ??MD: TRISTA MELLO Site: ??[facility] ? Transfer And Pumphouse Operator: Yamel Hill RDMS : ??1995 ?Age: ?? [...] 1 lb 2 ?oz EFW by ?Hadlock ([id number]) Head / Face / Neck Biometry: Fire Engine Operator ? 6.2 ? mm CM ?3.8 ? mm Nasal bone ? 7.0 ? mm ANATOMY ----- The following structures appear normal: Head / Neck ? Cranium. Head size. Head shape. Lateral ventricles. Midline falx. Cavum septi pellucidi. Cerebellum. Cisterna magna. Thalami. Face ? Lips. Profile. Nose. Maxilla. Mandible. Heart / Thorax ?4-chamber view. RVOT view. LVOT view. Situs. 0-eyholi-dxblkgg view. ? Diaphragm. Abdomen ? Stomach. Kidneys. [...] 15%tile we will reassess growth at [facility] in 3 weeks. Return to primary provider [...] [place] Study Date: 05/10/2023 9:30am Pat. NO: [id number] Referring MD: TRISTA MELLO Site: [facility] Transfer And Pumphouse Operator: Yamel Hill RDMS : 1995 Age: 27 [...] 1 lb 2 oz EFW by Hadlock ([id number]) Head / Face / Neck Biometry: Fire Engine Operator 6.2 mm CM 3.8 mm Nasal bone 7.0 mm ANATOMY ----- The following structures appear normal: Head / Neck Cranium. Head size. Head shape.Lateral ventricles. Midline falx. Cavum septi pellucidi. Cerebellum.Cisterna magna. Thalami. Face Lips. Profile. Nose. Maxilla.Mandible. Heart / Thorax 4-chamber view. RVOT view. LVOT view.Situs. 3-qptbcy-joahpli view. Diaphragm. Abdomen Stomach. Kidneys. Bladder. Spine [...] Normal transvaginal cervical length with no funneling. nAa Oreilly MD IM [facility] US ORDERABLE S documented in this encounter Visit Diagnoses Diagnosis Pulmonary embolism affecting in second trimester documented in this encounter Care Teams Chairperson Anesthesiology Relationship Specialty Start Date End Date No Ref-Primary, Physician PCP - General 03/31/23 Oleg Aparicio, JULIAC [address] [facility] [address] [place] [address] Assigned Cancer Care Provider 05/06/23 Ana Oreilly MD [address] [place] [address] Assigned OBGYN Provider 05/06/23 documented as of this encounter
--- OUTSIDE RECORDS SUMMARY | 2023-07-15 11:25 | XMS_ITS | Encounter Summary ---
Author Organization [facility] Address [address] [facility] [place] [address] Care Team Providers Care Industrial Psychology Teacher Name Role Phone No Ref-Primary, Physician Primary Care Provider Reason for Referral * Diagnostic Imaging Ultrasound (Routine) - Pending Review Specialty Diagnoses / Procedures Referred By Contac t Referred To Contact Radiology. Diagnoses Pulmonary embolism affecting in second trimester Procedures [facility] US Comprehensive Single F/U Ana Oreilly MD [address] [place] [address] Referral ID Status Reason Start Date Expiration Date V isits Requested Visits Authorized [id number] Pending Review 04/12/2023 04/11/2024 1 1 [facility] * Consultation (Priority: 1-2 Weeks) - Pending Review Specialty Diagnoses / Procedures Referred By Contsandy t Referred To Contact Medical Oncology Diagnoses Pulmonary embolism affecting in second trimester Ana Oreilly MD [address] [employer] [address] [place] [address] Referral ID Status Reason Start Date Expiration Date V isits Requested Visits Authorized [id number] Pending Review 04/12/2023 04/11/2024 1 1 Question Answer My Clinical Question Is: Pt is and had bilateral PE 03/08 in [place] Pt is on Lovenox 60 mg BID. Pt needs clotting work up and Lovenox mgt If you have additional clinical questions which require a provider discussion, please call [phone]. Ask for the Chemo only medicine physician. Reason for Referral: Bleeding and Clotting Scheduling Instructions: [facility] will call you to coordinate your care as prescribed by the provider. If you don? t hear from a resources representative within 2 business days, please call Comments Please be aware that coverage of these services is subject to the terms and limitations of your health insurance plan. Call member services at your health plan with any benefit or coverage questions. [facility] will call you to coordinate your care as prescribed by the provider. If you don? t hear from a resources representative within 2 business days, please call [facility] Reason for Visit * Reason Comments Ultrasound [...] MD [address] [place] [address] Referral ID Status Reason Start Date Expiration Date V isits Requested Visits Authorized [id number] Pending Review 03/10/2023 03/09/2024 1 1 Encounter Details Date Type Department Care Team (Late st Contact Info) Description 04/12/2023 10:15 AM MANAGER EQUITY Office Visit [facility] Maternal Medicine Center [place] [address] [place] [address] Ana Oreilly MD [address] [place], [place] [address] Pulmonary embolism affecting in second trimester (Primary [...] - Respiratory Rate 20 04/12/2023 10:58 AM MANAGER EQUITY Oxygen Saturation 97% 04/12/2023 10:58 AM MANAGER EQUITY room air Inhaled Oxygen Concentration - - Weight 65.9 kg (145 lb 4.8 oz) 04/12/2023 10:58 AM MANAGER EQUITY Height 170.2 cm (5' 7) 04/12/2023 10:58 AM MANAGER EQUITY Body Mass Index 22.76 04/12/2023 10:58 AM MANAGER EQUITY documented in this encounter Progress Notes * Ama Yadav MD - 04/12/2023 10:15 AM CST Images from the original note were not included. Maternal- Medicine Consultation Gabrielle Cleveland : 1995 Rerferral: Gabrielle Cleveland is a 27 year [address] sent by Dr. Tolentino from [facility] for MFM consultation. HPI Gabrielle Cleveland is [...] this has been with Dr. Tolentino from [facility]. OB History Para Term AB Living 2 [...] anti-Xa level, which will be coordinated at [place], but is also ordered standing in the [facility] system if she is unable to obtain [...] patient. Ama Yadav MD Maternal Medicine Fellow [facility] Attending Attestation I have seen and [...] medical record, and communicating with other health primary care coordinator and/or care coordination.Please see her note for specific details; I have made the necessary edits/additions. The patient was also seen for an ultrasound in the Maternal- Medicine Center at the [facility] today. For a detailed report of the ultrasound examination, please see the ultrasound report which can be found under the imaging tab. Ana Oreilly MD Maternal Medicine Physician [facility] documented in this encounter Nursing Notes * Elaina Cano RN - 04/12/2023 10:15 AM CST Pt here for L2/consult d/t hx of PE in this . Pt notes intermittent right sided focal sharp pain/tenderness at fold recently. Questions whether this is related to cyst noted on prior ultrasound. Report given to commercial lines manager prior to scanning. Pt also recalls history of PPROM as spontaneous rupture at home at approximately 36 wks, no signs of labor other than vague feeling of something being off night prior. occurred within 2 hours of rupture. Added TV to ultrasound per protocol. Gabrielle was seen in [facility] today for Comp and MFM consult due to h/o PE in this . Pt has not followed up on any labs and hasn't met with hematology yet. . Dr. Oreilly and Dr. Yadav into see patient. Pt to have XA level at [place] tomorrow and this was communicated to RN at . Pt to have 2 week TV at [place] and then F/U comp/TV in [address] [facility]. Pt also had heme consult placed for 1-2 weeks. Please see [facility] consult note for recommendations. Patient was discharged ambulatory and stable. GER EQUITY documented in this encounter Plan of Treatment Scheduled Referrals Name Type Priority Associated Diagnoses Orde r Schedule Adult Oncology/Hematology Bluing Oven Tender Referral Referral Priority: 1-2 Weeks Pulmonary embolism [...] ? Study Date: ??05/10/2023 9:30am Pat. NO: ??[id number] ?Referring ??: TRISTA MELLO Site: ??[facility] ? Grain Distributor: Yamel Hill RDMS : ??1995 ?Age: ?? 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 6.2 ? mm CM ?3.8 ? mm Nasal bone ? 7.0 ? mm ANATOMY ----- The following structures appear normal: Head / Neck ? Cranium. Head size. Head shape. Lateral ventricles. Midline falx. Cavum septi pellucidi. Cerebellum. Cisterna magna. Thalami. Face ? Lips. Profile. Nose. Maxilla. Mandible. Heart / Thorax ?4-chamber view. RVOT view. LVOT view. Situs. 0-ikbjmv-ihdjtfu view. ? Diaphragm. Abdomen ? Stomach. Kidneys. [...] [place] Study Date: 05/10/2023 9:30am Pat. 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 Head size. Head shape.Lateral ventricles. Midline falx. Cavum septi pellucidi. Cerebellum.Cisterna magna. Thalami. Face Lips. Profile. Nose. Maxilla.Mandible. Heart / Thorax 4-chamber view. RVOT view. LVOT view.Situs. 7-tziezd-ybxmlol view. Diaphragm. Abdomen Stomach. Kidneys. Bladder. Spine [...] the 15%tile we will reassess growth at [facility] in 3weeks. Return to primary provider [...] with no funneling. Ana Oreilly MD IMG [facility] US ORDERABLE S documented in this encounter Visit Diagnoses Diagnosis Pulmonary embolism affecting in second trimester- Primary History of delivery, currently with history of pre-term labor Pulmonary embolism affecting in second trimester documented in this encounter Care Teams Industrial Psychology Teacher Relationship Specialty Start Date End Date No Ref-Primary, Physician PCP - General 03/31/23 documented as of this encounter
--- OUTSIDE RECORDS SUMMARY | 2023-07-15 11:25 | XMS_ITS | Encounter Summary ---
Author Organization [facility] Address [address] [facility] [place] [address] Care Team Providers Care Dynamicist Name Role Phone No Ref-Primary, Physician Primary Care Provider Reason for Referral * Diagnostic Imaging Ultrasound (Routine) - Pending Review Specialty Diagnoses / Procedures Referred By Contac t Referred To Contact Radiology. Diagnoses Pulmonary embolism affecting in second trimester History of delivery, currently Procedures [facility] Ori Jerome MD [address] [place], [place] [address] Referral ID Status Reason Start Date Expiration Date V isits Requested Visits Authorized [id number] Pending Review 03/10/2023 03/09/2024 1 1 ASSEMBLER Reason for Visit * Diagnostic Imaging Ultrasound (Routine) - Pending Review Specialty Diagnoses / Procedures Referred By Contac t Referred To Contact Radiology. Diagnoses Pulmonary embolism affecting in second trimester History of delivery, currently Procedures [facility] Ori Jerome MD [address] [place] [address] Referral ID Status Reason Start Date Expiration Date V isits Requested Visits Authorized [id number] Pending Review 03/10/2023 03/09/2024 1 1 Encounter Details Date Type Department Care Team (Latest Contact Info) Description 04/12/2023 9:11 AM DIE ASSEMBLER - 04/12/2023 11:59 PM DIE ASSEMBLER Hospital Encounter [facility] Maternal Medicine [facility] [place] [address] [place] [address] Ana Oreilly MD [address] [place] [address] Pulmonary embolism affecting in second trimester; History [...] Procedure Name Priority Date/Time Associated Diagnosis Comments [facility] COMPREHENSIVE SINGLE Routine 04/12/2023 10:26 AM DIE ASSEMBLER Pulmonary embolism affecting in second trimester History of delivery, currently documented in this encounter Results * [facility] Comprehensive Single (04/12/2023 10:26 AM DIE ASSEMBLER) Anatomical Region Laterality Modality Ultrasound 04/12/2023 9:24 AM DIE ASSEMBLER Impressions 04/12/2023 3:24 PM DIE ASSEMBLER IMPRESSION ----- 1. Barnett intrauterine at 19w [...] long and closed. Narrative 04/12/2023 3:24 PM DIE ASSEMBLER ?Comprehensive ----- Pat. Name: GABRIELLE [place] ? Study Date: ??04/12/2023 9:24am Pat. NO: ??[id number] ?Referring ??MD: TRISTA MELLO Site: ??[facility] ? Senior Staff Consultant: Edda Ayala RDMS : ??1995 ?Age: ?? 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 6.4 ? mm CM ?1.7 ? [...] cava. Inferior vena cava. 3-vessel ? view. 9-paprgw-hdknhpb view. Cardiac position. Cardiac size. Cardiac rhythm. [...] [place] Study Date: 04/12/2023 9:24am Pat. NO: [id number] Referring MD: TRISTA MELLO Site: [facility] Senior Staff Consultant: Edda Ayala RDMS : 1995 Age: 27 [...] 0 lb 9 oz EFW by Hadlock ([id number]) Head / Face / Neck Biometry: Exchange Mechanic 6.4 mm CM 1.7 mm Nasal bone [...] Superior venacava. Inferior vena cava. 3-vessel view. 0-dtszwl-cpneinm view.Cardiac position. Cardiac size. Cardiac rhythm. Right [...] ----- Thank-you for referring your patient for [facility] consult & ultrasoundassessment. I discussed [...] cervix appears long and closed. Ori HERNANDEZG [facility] US ORDERABL ES documented in this encounter Visit Diagnoses Diagnosis Pulmonary embolism affecting in second trimester History of delivery, currently with history of pre-term labor documented in this encounter Care Teams Dynamicist Relationship Specialty Start Date End Date No Ref-Primary, Physician PCP - General 03/31/23 documented as of this encounter
--- OUTSIDE RECORDS SUMMARY | 2023-07-15 11:25 | XMS_ITS | Encounter Summary ---
Author Organization [facility] Address [address] [facility] [place] [address] Care Team Providers Care Biomedical Engineering Professor Name Role Phone No Ref-Primary, Physician Primary Care Provider Oleg Aparicio PA-C Unavailable [phone] Ana Oreilly MD Unavailable [phone] Encounter Details Date Type Department Care [...] on filedocumented in this encounter Care Teams Biomedical Engineering Professor Relationship Specialty Start Date End Date No Ref-Primary, Physician PCP - General 03/31/23 Oleg Aparicio PA-C [address] [place] [address] Assigned Cancer Care Provider 05/06/23 Ana Oreilly MD [address] [place] [address] Assigned OBGYN Provider 05/06/23 documented as of this encounter
--- OUTSIDE RECORDS SUMMARY | 2023-07-15 11:25 | XMS_ITS | Encounter Summary ---
Author Organization [facility] Address [address] [place] [address]. [place] [address] Care Team Providers Care Superintendent Nonselling Name Role Phone No Ref-Primary, Physician Primary Care Provider Reason for Visit * Reason Comments CLOTTING * Consultation (Priority: 1-2 Weeks) - Pending Review Specialty Diagnoses / Procedures Referred By Contac t Referred To Contact Medical Oncology Diagnoses Pulmonary embolism affecting in second trimester Ana Oreilly MD [address] [address] Referral ID Status Reason Start Date Expiration Date V isits Requested Visits Authorized [id number] Pending Review 04/12/2023 04/11/2024 1 1 Encounter Details Date Type Department Care Team (Late st Contact Info) Description 04/28/2023 1:30 PM COUPON AND BOND COLLECTION CLERK Office Visit [facility] [address] [place] [address] Ana Oreilly MD [address] [facility] [address] [place] [address] Oleg Aparicio, PABrightC [address] [facility] [address] [place] [address] Pulmonary embolism affecting in second [...] Comments Blood Pressure 113/69 04/28/2023 1:25 PM COUPON AND BOND COLLECTION CLERK Pulse 72 04/28/2023 1:25 PM COUPON AND BOND COLLECTION CLERK Temperature 36.7 ??C (98 ??F) 04/28/2023 1:25 PM COUPON AND BOND COLLECTION CLERK Respiratory Rate - - Oxygen Saturation 98% 04/28/2023 1:25 PM COUPON AND BOND COLLECTION CLERK Inhaled Oxygen Concentration - - Weight 68.9 kg (152 lb) 04/28/2023 1:25 PM COUPON AND BOND COLLECTION CLERK Height 170.2 cm (5' 7) 04/28/2023 1:25 PM COUPON AND BOND COLLECTION CLERK Body Mass Index 23.81 04/28/2023 1:25 PM COUPON AND BOND COLLECTION CLERK documented in this encounter Progress Notes * Oleg Aparicio PA-C - 04/28/2023 1:30 PM CST Images from the original note were not included. [facility] [address] [place] [address] Main: [phone], Patient seen at: [facility] at [address] [place] [address] Outpatient Visit Note: Patient: Gabrielle Mcmahon : 1995 DEBORAH: April 28, 2023 Location of this sql report writer at the time of this clinic visit was conducted: [facility], [facility]. Location of the patient at the time of this clinic visit was conducted: [facility]. Reason [...] the patient's pulmonary embolism was diagnosed at [facility] and I am unable to find any progress notes, H&P notes or discharge summary of this hospitalization in her records. I am able, however, to see some labs and imaging studies via [facility] Everywhere from [facility]. From what I can gather, [...] was performed. She then went to the [facility] emergency department on 03/08/2023 with [...] today, the [facility] about the [...] the time, her mother was seen at [facility] and from Gabrielle's description, it was consistent with c erebral sinus thrombosis but not entirely clear. Gabrielle report that her mother's blood clot was related to control and her mother is no longer on anticoagulation therapy. Gabrielle is unclear ifother thrombophilia workup was done with her mother. Then on 04/22/2023, this sql report writer received a call from a nurse at [facility] and was inquiring about her enoxaparin dosing. At the time, this sql report writer was informed that her Anti-Xa level was subtherapeutic at I belief at 0.3 (again, I am not able to see any [facility]'s or systems notes. 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 Has not return to work as [...] a LMWH Anti-Xa level reported to this sql report writer from [facility] that was subtherapeutic. I will [...] weeks gestation) to be done at a [facility] so that we can get the result [...] or concerns. Oleg Aparicio PA-C, MPAS Physician Settlement Technician [facility]. The [...] Time IN: 13:30 Time OUT: 14:15 ON AND BOND COLLECTION CLERK documented in this encounter Miscellaneous Notes * Addendum Note - Oleg Aparicio PA-C - 04/28/2023 1:30 PM CSTAddended by: OLEG APARICIO on: 04/28/2023 04:09 PM Modules accepted: Orders ON AND BOND COLLECTION CLERK documented in this encounter Plan of Treatment Not on file documented as of this encounter Procedures Procedure Name Priority Date/Time Associated Diagnosis Comments LOW MOLECULAR WEIGHT HEPARIN ANTI XA LEVEL Routine 04/28/2023 2:27 PM COUPON AND BOND COLLECTION CLERK Pulmonary embolism affecting in second trimester documented [...] LAB - BLOOD ORDERABL ES [facility]AT[facility] [place] [facility] [address] [facility], [address] * Beta 2 Glycoprotein 1 Antibody IgM (05/03/2023 1:03 PM CDT) Beta 2 Glycoprotein 1 Antibody IgM <2.4 <7.0 U/mL 05/04/2023 10:34 AM CDT SPECIALTY CORE/PROT/END O Comment:Negative Blood BLOOD SPECIMEN / Unknown Venipuncture / Unknown 05/03/2023 1:03 PM CDT 05/03/2023 1:03 PM CDT Oleg Aparicio PA-C LAB - BLOOD ORDERABL ES SPECIALTY CORE/PROT/ENDO Specialty Core/Prot/Endo [address] [facility], [address] * Beta 2 Glycoprotein 1 Antibody IgG (05/03/2023 1:03 PM CDT) Beta 2 Glycoprotein 1 Antibody IgG <0.8 <7.0 U/mL 05/04/2023 10:34 AM CDT SPECIALTY CORE/PROT/END O Comment:Negative Blood BLOOD SPECIMEN / Unknown Venipuncture / Unknown 05/03/2023 1:03 PM CDT 05/03/2023 1:03 PM CDT Oleg Aparicio PA-C LAB - BLOOD ORDERABL ES UM SPECIALTY CORE/PROT/ENDO UM Specialty Core/Prot/Endo [address] [facility], [address] * Cardiolipin Angie IgG and IgM [...] UM SPECIALTY CORE/PROT/ENDO UM Specialty Core/Prot/Endo [address] [facility], [address] * (ABNORMAL) Lupus Anticoagulant Panel (05/03/2023 [...] of an antiphospholipid syndrome, recommend anticardiolipin and ccum-5-dmqeaninnem n (IgG and IgM) antibody tests. Recommend [...] UM SPECIAL COAGULATION UM Special Coagulation [address] [facility], [address] [phone] * Low [...] LAB - BLOOD ORDERABL ES [facility] LAB[facility]ATORY [facility] [place] [facility] [address] [facility], [address] [place] [address] * Low Molecular Weight Heparin Anti Xa Level (04/28/2023 2:27 PM COUPON AND BOND COLLECTION CLERK) Anti Xa Low Molecular Weight 0.42 For Reference Range, See Comment IU/mL 04/28/2023 2:53 PM COUPON AND BOND COLLECTION CLERK UR LABORATORY Blood STRUCTURE OF RIGHT UPPER LIMB / Unknown Venipuncture / Unknown 04/28/2023 2:27 PM COUPON AND BOND COLLECTION CLERK 04/28/2023 2:41 PM COUPON AND BOND COLLECTION CLERK Narrative UR LABORATORY - 04/28/2023 2:53 PM COUPON AND BOND COLLECTION CLERK If collected 4-6 hours after administration: Adults: If administered only once daily with a dose of 1.5 mg/k.0-2.0 IU/mL. If administered twice daily with a dose of 1 mg/k.50-1.0 IU/mL. Pediatrics: If administered twice daily: 0.50-1.0 IU/mL. Oleg Aparicio PA-C LAB - BLOOD ORDERABL ES Performing Organization Address City/[facility]/ZIP Co de Phone Number UR LABORATORY [facility] [address] [facility], [address] [place] [address], [facility] [phone] documented in this encounter Visit Diagnoses Diagnosis Pulmonary embolism affecting in second trimester- Primary Family history of blood clots Family history of other blood disorders documented in this encounter Care Teams Superintendent Nonselling Relationship Specialty Start Date End Date No Ref-Primary, Physician PCP - General 03/31/23 documented as of this encounter
--- OUTSIDE RECORDS SUMMARY | 2023-07-15 11:25 | XMS_ITS | Clinical Summary ---
Author Organization [facility] Address [address] [place] [address] Care Team Providers Care Radon Inspector Name Role Phone Elsewhere, Pcp Primary Care Provider Unavailabl e Source Comments Patient records contain information from all sites at [facility]. For routine questions regarding patient records, call [phone] during business hours, M-F 8:00 AM - 5:00 PM Central Time. Record requests for emergency care only can be directed to [phone] at any time.[facility] Allergies No known active allergies Medications Medication Sig Dispensed Refills Start Date End Date Status biodkox-Re-jmea-FA (VINATE ONE) 60 mg iron-1 mg per [...] How often do you attend chur or scientologist services? More than 4 times per year 02/21/2022 Do you belong to any clubs o r organizations such as cheondoism groups, unions, fraternal or athletic groups, or [...] and heating? Not hard at all 02/21/2022 [facility] of Occupat ional Health - Occupational Stress [...] Sex Assigned at Female 02/21/2022 11:00 AM AIR TECHNICIAN Gender Identity Female 02/21/2022 11:00 AM AIR TECHNICIAN Sexual Orientation Straight 02/21/2022 11 :00 AM AIR TECHNICIAN Last Filed Vital Signs Vital Sign Reading Time Taken Comments Blood Pressure - - Pulse - - Temperature 36.6 ??C (97.9 ??F) 02/24/2022 12:[address] Respiratory Rate - - Oxygen Saturation - - Inhaled Oxygen Concentration - - Weight 72.4 kg (159 lb 9.8 oz) 02/24/2022 12:38 PM AIR TECHNICIAN Height 169.7 cm (5' 6.81) 02/24/2022 12:[address] Body Mass Index 25.14 02/24/2022 12:38 PM AIR TECHNICIAN Plan of Treatment Health Maintenance Due Date [...] age to complete this topic Care Teams Radon Inspector Relationship Specialty Start Date End Date Elsewhere, Pcp PCP - General Internal Medicine 02/24/22
--- OUTSIDE RECORDS SUMMARY | 2023-07-15 11:25 | XMS_ITS | Encounter Summary ---
Author Organization [facility] Address [address] [place] [address]. [place] [address] Care Team Providers Care Can Dragger Name Role Phone No Ref-Primary, Physician Primary Care Provider Encounter Details Date Type Department Care Team ([facility] st Contact Info) Description 04/28/2023 Telephone [facility] [address] [place] [phone] Oleg Aparicio PA-C [address] [place] [phone] 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 Tobacco Use Types Packs/Day Years [...] from the original note were not included. [facility] [address] [place] [address] [address] Main: [phone], Telephone Note: Patient: Gabrielle Mcmahon : 1995 Date of this note written: April 28, 2023 Time: 15:55 This database report writer called the patient on 04/28/2023 [...] post . Oleg Aparicio PA-C, MPAS Physician Office Messenger Helper [facility]. [place] NEWSPAPER documented in this encounter Plan of Treatment Not on file documented as of this encounter Visit Diagnoses Not on filedocumented in this encounter Care Teams Can Dragger Relationship Specialty Start Date End Date No Ref-Primary, Physician PCP - General 03/31/23 documented as of this encounter
--- OUTSIDE RECORDS SUMMARY | 2023-07-15 11:25 | XMS_ITS | Encounter Summary ---
Author Organization [facility] Address [address] [place] [address]. [place] [address] Care Team Providers Care Nurse First Aid Name Role Phone No Ref-Primary, Physician Primary [...] on filedocumented in this encounter Care Teams Nurse First Aid Relationship Specialty Start Date End Date No Ref-Primary, Physician PCP - General 03/31/23 documented as of this encounter
--- OUTSIDE RECORDS SUMMARY | 2023-07-15 11:25 | XMS_ITS | Clinical Summary ---
Author Organization [facility] Address [place], [place] [address] Care Team Providers Care Floral Design Teacher Name Role Phone Marybeth Andrew MD Primary [...] Procedure Name Priority Date/Time Associated Diagnosis Comments AGRONOMY INSTRUCTOR THIN PREP PAP SCREEN IMAGED Routine 12/11/2020 2:40 PM CDT from Last 3 Months or Most Recently Relevant to Health Maintenance Results * AGRONOMY INSTRUCTOR THIN PREP PAP SCREEN IMAGED (12/11/2020 2:40 PM CDT) Case Report Gynecologic Cytology Report ? Case: [id number] ? Authorizing Provider: ??Elizabeth Philip ?Collected: ? 12/11/2020 1440 ? [place], ? Ordering Location: ? [facility] ?Received: ?12/15/2020 0858 ? First Screen: ?Baccam, Minie ? Specimen: ?AGRONOMY INSTRUCTOR ThinPrep Vial Screening, Cervical/Vaginal ? 12/26/2020 2:03 PM CDT [facility] INTERPRETATION/ RESULT NEGATIVE FOR INTRAEPITHELIAL LESION OR MALIGNANCY (NIL) (none) 12/26/2020 2:03 PM CDT [facility] IMEN ADEQUACY Satisfactory for evaluation No endocervical component seen 12/26/2020 2:03 PM CDT [facility] HPV REQUEST HPV if ASCUS 12/26/2020 2:03 PM CDT [facility] Date of LMP 11/04/2020 12/26/2020 2:03 PM CDT [facility] Menstrual Status 12/26/2020 2:03 PM CDT [facility] Additional Information 12/26/2020 2:03 PM CDT [facility] Comment: Interpreted at [facility] - [address], [place] [address] Automated Review Successful 12/26/2020 2:03 PM CDT [facility] Comment:Specimen processed s uccessfully by automated head of history device, ThinPrep Imaging System, [employer] Note The pap test is a [...] and malignant lesions. 12/26/2020 2:03 PM CDT [facility] Other (Cervical/Vagina l) 12/11/2020 2:40 PM CDT 12/15/2020 8:58 AM CDT Elizabeth Philip MD PATHOLOGY/ CYTOLOGY [facility] [address] [place] [address], from Last 3 Months or Most Recently Relevant to Health Maintenance Care Teams Floral Design Teacher Relationship Specialty Start Date End Date Marybeth Andrew MD [address] [place] [address] PCP - General Family Practice 08/20/22
--- OUTSIDE RECORDS SUMMARY | 2023-07-15 11:25 | XMS_ITS | Encounter Summary ---
Author Organization [facility] Address [address] [place] [address]. [place] [address] Care Team Providers Care Wire Straightener Name Role Phone No Ref-Primary, Physician Primary Care Provider Encounter Details Date Type Department Care Team (Late st Contact Info) Description 05/03/2023 1:00 PM CDT Lab [facility] [address] [place] [address] Pulmonary embolism affecting in second [...] IgM (05/03/2023 1:03 PM CDT) Pathologist [facility] Beta 2 Glycoprotein 1 Antibody IgM <2.4 <7.0 U/mL 05/04/2023 10:34 AM CDT SPECIALTY CORE/PROT/END O Comment:Negative Blood BLOOD SPECIMEN / Unknown Venipuncture / Unknown 05/03/2023 1:03 PM CDT 05/03/2023 1:03 PM CDT Oleg Aparicio PA-C LAB - BLOOD ORDERABL ES UM SPECIALTY CORE/PROT/ENDO UM Specialty Core/Prot/Endo [address] [facility], [address] * Beta 2 Glycoprotein 1 Antibody IgG (05/03/2023 1:03 PM CDT) [facility] Beta 2 Glycoprotein 1 Antibody IgG <0.8 <7.0 U/mL 05/04/2023 10:34 AM CDT SPECIALTY CORE/PROT/END O Comment:Negative Blood BLOOD SPECIMEN / Unknown Venipuncture / Unknown 05/03/2023 1:03 PM CDT 05/03/2023 1:03 PM CDT Oleg Aparicio PA-C LAB - BLOOD ORDERABL ES UM SPECIALTY CORE/PROT/ENDO UM Specialty Core/Prot/Endo [address] [facility], [address] * Cardiolipin Makenzie IgG and IgM [...] ES UM SPECIALTY CORE/PROT/ENDO Specialty Core/Prot/Endo [address] [facility] [address] [facility], [address] [place] [address] * (ABNORMAL) Lupus Anticoagulant Panel (05/03/2023 1:03 PM CDT) Pathologist [facility] INR 1.02 0.85 - 1.15 4 2:25 [...] of an antiphospholipid syndrome, recommend anticardiolipin and wicg-6-ccncndtyjlj n (IgG and IgM) antibody tests. Recommend [...] - BLOOD ORDERABL ES Performing Organization Address City/[facility] [[email or web address]] Co de Phone Number UM SPECIAL COAGULATION UM Special Coagulation [address] [facility], [address] [phone] * Low Molecular Weight Heparin Anti [...] - BLOOD ORDERABL ES Performing Organization Address City/[facility]/ZIP Co de Phone Number [facility] LABORATORY [facility] [place] Core Lab [address] [facility], [address] [phone] documented in this encounter Visit Diagnoses Diagnosis Pulmonary embolism affecting in second trimester Family history of blood clots Family history of other blood disorders documented in this encounter Care Teams Wire Straightener Relationship Specialty Start Date End Date No Ref-Primary, Physician PCP - General 03/31/23 documented as of this encounter
--- OUTSIDE RECORDS SUMMARY | 2023-07-15 11:25 | XMS_ITS ---
Author Organization [facility] Address [address] [place] [address] Care Team Providers Care Dictaphone Technician Name Role Phone Unavailable Unavailable Unavailable Surgery Details Not on file Complications Check Surgery Details section. Procedure Estimated Blood Loss Check Surgery Details section. Procedure Findings Check Surgery Details section. Procedure Specimens Taken Check Surgery Details section.
[2023-07-15 12:01] VITALS: BP 118/76; PULSE 95; RESP 16; TEMP 37.2
[2023-07-15 12:59] LABS: Amnisure Rom* Negative
[2023-07-15 13:10] LABS: Appearance Urine Cloudy (Clear); Bilirubin Urine Negative (Negative); Blood Urine Negative (Negative); Clue Cells No Clue Cells Seen (None Seen); Color Urine Yellow (Yellow); Glucose Urine Negative (Negative); Ketones Urine Negative (Negative); Leukocyte Esterase Urine Trace (Negative); Nitrite Urine Negative (Negative); Protein Urine Negative (Negative); Trichomonas No Trichomonas Seen (None Seen); Urobilinogen Urine 0.2 (0.2-1.0); Yeast No Yeast Seen (None Seen)
[2023-07-15 13:15] LABS: Fetal Fibronectin* POSITIVE (Negative)
[2023-07-15 13:44] LABS: Amorphous Sediment Urine Many; Bacteria Urine Many; RBC Urine 0-2 (0-2); Squamous Epithelial Cell Urine Moderate (None-Few); WBC Urine 0-2 (0-5)
--- NOTE | 2023-07-15 13:53 | CRLHL7_ITS ---
For Patients: As a result of the Century Cures Act, medical imaging exams and procedure reports are released immediately into your electronic medical record. You may view this report before your referring provider. If you have questions, please contact your health care provider. INDICATION: Cervical check. TECHNIQUE: Ultrasound OB pelvis transabdominal and transvaginal, limited. COMPARISON: Obstetric ultrasound dated 07/14/2023. FINDINGS: Sonographic imaging demonstrates a single living intrauterine gestation. Fetus demonstrates a regular cardiac rate of 118 beats per minute. Fetus has a vertex orientation. The placenta lies posteriorly. Amniotic fluid volume appears normal, single deepest pocket of 5.9 cm. The cervix is closed, with no evidence of funneling. However, the cervix appears shortened, measuring up to 0.8 cm in length, shortening to 0.5 cm with fundal pressure. IMPRESSION.: Shortened cervix, measuring up to 0.8 cm in length, which decreased to 0.5 cm with application of fundal pressure. Dictated by Becky Mcdonald MD @ 07/15/2023 3:25:01 PM (Electronically Signed)
[2023-07-15] MEDS: LACTATED RINGERS 1000 ML 1,000 ML IV (15:12)
[2023-07-15 15:14] VITALS: BP 132/70; PULSE 88
[2023-07-15] MEDS: BETAMETHASONE SOD PHOS/ACETATE 6 MG/ML ML 12 MG IM (15:14)
[2023-07-15] MEDS: AMPICILLIN 2 GM in 0.9 % SODIUM CHLORIDE Mini-bag 100 ML IVPB (15:15)
--- NOTE | 2023-07-15 15:24 | P.OBO_ITS ---
OB Outpatient HPI History of Present Illness Date Seen: 07/15/23 History of Present Illness: 28 year old at 32 5/7 weeks gestation by LMP, 11/29/23 GALA, presents with concerns of pelvic cramping. Patient states that she has been experiencing on and off episodes of pelvic cramping that have gotten more intense and last night some took her breath away. Denies abnormal vaginal discharge, dysuria, urgency or frequency. Denies constipation or diarrhea. Her last dose of Lovenox was at 9:15am today. Specific Issues/Plans G 2 P 0101 # Bilateral PE, elevated troponin levels, dx on 03/08/23 -On Lovenox 100mg BID -Echocardiogram completed on 03/08/23: EF 62%, no valve disease -M consult and level 2 US: 04/12/23 -No specific thrombophilia identified as of yet, further testing -Hematology consult 04/28/23: Official report -Recommendations from [facility]: -Anti Xa levels should be monitor within a week of dose adjustments, and every 4 weeks once steady state has been achieved. Target levels between 0.6-1.0 units/mL. -thrombophilia testing once of anticoagulation -anesthesia consult in the 3rd trimester -scheduled induction at 39 weeks in order to time anticoagulation. Discontinuation of anticoagulation for patient on therapeutic anticoagulation is recommended 24 hours prior to scheduled induction. -they would recommend that she continues therapeutic dosing throughout and 6 weeks , this needs to be discuss with Hematology. -growth ultrasounds every 4 weeks 32wks: EFW 27% 36 wks: ordered # delivery at 36 weeks 3 days. PPROM and spontaneous labor. -[facility] recommends to complete cervical length measurements every 2 weeks: Normal, D/C # Precipitous delivery, <2 hours # 5.1 simple ovarian cyst on right ovary at first OB. Check again at 20 week FAS. Ultrasounds: Level 2 US on 04/12/23, normal but some suboptimal views (face, genitals, spine). Posterior placenta not previa, three-vessel umbilical cord, normal amount of amniotic fluid, EFW: 18th percentile, abdominal circumference 21 percentile. Normal anatomy, but suboptimal. F/U on 05/10/23: Normal anatomy. Cervical length normal with no funneling, discontinue cervical length measurements. EFW: 15 percentile, abdominal circumference: 18 percentile. Follow-up growth scheduled with [facility] in 3 weeks. 05/31/23: Cephalic, posterior placenta without previa, EFW 14%, AC 17%, MVP 6.4 cm. Return to [facility] for growth scan in 3 weeks 06/20: EFW 1258g, 18%ile 07/14/23:EFW: 27%, AC: 30%. SDP: 3.9cm. Vertex. Flu: Declines today, planning to get with her daughter Covid: Recommended. Not vaccinated, declines. RSV: n/a TDAP:06/23/23 Baby moving naturally: Yes Bleeding: No Contractions: Yes Leaking fluid: No Discharge: No Heartburn: No Back pain: No Meds Home Medications and Allergies Home Medications ?Medication ?Instructions ?Recorded ?Confirmed ?Type vitamin#30 30 mg iron-10 1 cap PO DAILY 05/26/22 07/15/23 History mg iron-folic acid 1 mg-omg3 capsule enoxaparin 100 mg/mL subcutaneous 100 mg subcut Q12H 06/08/23 07/15/23 History syringe Allergies Allergy/AdvReac Type Severity Reaction Status Date / Time No Known Allergies Allergy Unknown Verified 07/15/23 10:13 [facility] Medical History (Updated 07/15/23 @ 15:43 by Jasmin Barrow MD) Low back pain ?M54.50 - Low back pain, unspecified (ICD-10) History of delivery ?Z87.51 - Personal history of pre-term labor (ICD-10) Obstetric vaginal laceration with second degree perineal laceration ?O70.1 - Second degree perineal laceration during delivery (ICD-10) Inflamed external hemorrhoid ?K64.4 - Residual hemorrhoidal skin tags (ICD-10) Chest wall pain ?R07.89 - Other chest pain (ICD-10) Surgical History History of third molar tooth extraction (2015) ?K08.409 - Partial loss of teeth, unspecified cause, unspecified class (ICD- 10) Family History Mother Hx of blood clots Family/Other Heart disease Breast cancer, Onset Age: 90 Paternal Grandmother Pulmonary hypertension Diabetes Paternal Grandfather Lung cancer Diabetes 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: , 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, 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 Very rare alcohol use Exercise 3 times a week, HIIT 30 minutes What is your current living situation?: I presently have a place to live Problems where you live: no known problems Problems where you live details: N/A In the past 12 months, utilities in danger of being shut off: no In past 12 months, lack of transportation kept you from medical appts, meetings, work, or getting things needed for daily living: no In the past 12 mos, have been you worried that your food would run out before you had money to buy more?: never true In the past 12 mos, the food you bought just didn't last and you didn't have money to buy more?: never true Smoking Status: Never smoker Do you use any of these nicotine containing products: None Second hand tobacco smoke exposure: No How often do you have a drink containing alcohol: never How often do you have six or more drinks on one occasion: Never AUDIT-C Alcohol total score: 0 Non-prescribed substance use: denies use How often does anyone, including family, friends and others, physically hurt you : never How often does anyone, including family, friends and others, insult or talk down to you: never How often does anyone, including family, friends and others, threaten you with harm: never How often does anyone, including family, friends and others, scream or curse at you: never Little interest or pleasure in doing things: not at all Feeling down, depressed, or hopeless: not at all service: No History History 2 Elective abortions Para 1 Spontaneous abortions Hx # Term Pregnancies Ectopic pregnancies Hx # Pregnancies 1 Multiple births Number of Living Children 1 Past Pregnancies Del. Date GA/Weeks Outcome Route wt Inf Gender Labor Lgth Anesthesia Location Provider Compli 07/18/21 35 live - vaginal delivery 3.26 kg Female 2 hr s none [facility] - H&P: Exam Physical Exam Vital signs: Pulse BP 88 132/70 07/15/23 15:14 07/15/23 15:14 Narrative: VITAL SIGNS: As noted above. GENERAL APPEARANCE: Alert, cooperative female in no acute distress. MOOD & AFFECT: Normal. ABDOMEN: Gravid, non tender. : Speculum exam: cervix looked closed and thick. No pooling, no Valsalva. 2-3cm/80%/Vx/-3 EXTREMITIES: Nonedematous. Well perfused. Nontender. NST: 140bpm/positive accelerations/sporadic variables/ moderate variability/ irregular uterine contractions- uterine irritability US: cervical length: 5-8mm FFN: positive Wet prep: negative UA: positive for sediment Labs Labs Laboratory Tests 07/15/23 Range/Units Unknown Urine Color Yellow (Yellow) Urine Appearance Cloudy A (Clear) Urine pH 7.0 (5.0-8.5) Ur Specific [place] 1.020 (1.000-1.030) Urine Protein Negative (Negative) Urine Glucose (UA) Negative (Negative) Urine Ketones Negative (Negative) Urine Blood Negative (Negative) Urine Nitrite Negative (Negative) Urine Bilirubin Negative (Negative) Urine Urobilinogen 0.2 (0.2-1.0) Ur Leukocyte Esterase Trace A (Negative) Urine RBC 0-2 (0-2) Urine WBC 0-2 (0-5) Ur Squamous Epith Cells Moderate A (None-Few) Amorphous Sediment Many A (None) Urine Bacteria Many A (None) Membrane Rupture Negative Vaginal Trichomonas No Trichomonas Seen (None Seen) Vaginal Yeast No Yeast Seen (None Seen) Vaginal Clue Cells No Clue Cells Seen (None Seen) Fibronectin POSITIVE (Negative) Assessment and Plan Assessment and plan (1) labor in third trimester: Status: Acute Assessment and Plan: Irregular uterine contractions and cervical change. Transfer to [facility], case discussed and accepted by Dr. 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 First dose of betamethasone given at 3:15pm on 07/15/23 Tocolysis plan: nifedipine 30mg x1 given at 3:55pm on 07/15/23 Ampicillin for GBS coverage first dose at 3:30pm on 07/15/23 (2) Pulmonary embolism: Problem comment: Diagnosed on February 2023. Status: Acute Assessment and Plan: On Lovenox 100mg BID, last dose of Lovenox at 9:15am 07/15/23. Dr. Markus Ruiz Hematology last consult note from 07/03/23: Antepartum: Continue enoxaparin at 100 mg subQ every 12 hours through the remainder of her . No further LMWH anti-Xa levels checks are needed. Labor and delivery: Recommend that she is to undergo scheduled induction of labor. With scheduled induction of labor, she can stop her enoxaparin 24 hours prior to her induction date and this will provide her opportunity to receive epidural anesthesia if desired. I explained that if she goes into labor early, then she might not be able to receive epidural anesthesia if her last enoxaparin injection is within 24 hours. I also explained to her that she might need general anesthesia for emergency delivery of her last not spare an injection is within 24 hours. : I recommend that she is to restart enoxaparin 12-24 hours after her delivery assuming that she has no bleeding complications. I will have her get a repeat LMWH anti-Xa level done 1 week after her delivery and adjust her medication dose as necessary. Then I will plan to have her stay on medication for at least 6 weeks . I will see her back in our clinic 1 month post to discussed proceeding with thrombophilia workup.
[2023-07-15] MEDS: NIFEdipine 10 MG CAPSULE 30 MG PO (15:51)
[2023-07-15 16:29] VITALS: BP 143/76; PULSE 126; RESP 18; TEMP 37.3
--- NOTE | 2023-07-15 18:43 | PC.OBNST ---
NST Note NST Note Start: 07/15/23 11:28 Freq: ONCE Status: Active Protocol: Document 07/15/23 18:41 ABP (Rec: 07/15/23 18:42 ABP [id number]) NST Note 2 Para (# of births) 1 EDC 09/04/23 Gestational Age In Weeks & Days 32 Weeks & 5 Days Patient Presented with Complaint(s) of Contractions/cramping Reactive Yes Appropriate for Gestational Age Yes RN Smita Montoya, RN Date 07/15/23 Reactive Yes Appropriate for Gestational Age Yes MAC Crawford RN Date 07/15/23 OB NST charge Yes Complete NST Note via Write Note Yes The provider's electronic signature indicates the NST is reactive/appropriate for gestational age. *Note to provider: If an addendum is required, open the patient's chart and click on the note under the Nurse/Allied Health tab.
[2023-07-16 12:21] LABS: Strep B DNA Probe Negative (Negative)
[2023-07-16 12:59] LABS: Strep B Susceptibility Needed? No
--- NOTE | 2023-08-11 12:50 | PC.OBNST ---
NST Note NST Note Start: 07/15/23 11:28 Freq: ONCE Status: Discharge Protocol: Document 07/15/23 18:41 ABP (Rec: 07/15/23 18:42 ABP [id number]) NST Note 2 Para (# of births) 1 EDC 09/04/23 Gestational Age In Weeks & Days 32 Weeks & 5 Days Patient Presented with Complaint(s) of Contractions/cramping Reactive Yes Appropriate for Gestational Age Yes RN Smita Montoya, RN Date 07/15/23 Reactive Yes Appropriate for Gestational Age Yes MAC Crawford RN Date 07/15/23 OB NST charge Yes Complete NST Note via Write Note Yes The provider's electronic signature indicates the NST is reactive/appropriate for gestational age. *Note to provider: If an addendum is required, open the patient's chart and click on the note under the Nurse/Allied Health tab.
== END 2023-07-15 16:45 | disposition short-term general hospital (02) ==
LOC: OB OUT 11:21 → OB 11:22
PROVIDERS: PCP Family Medicine; Visit Provider Obstetrics & Gynecology
DX: O60.03 Preterm labor without delivery, third trimester (principal); Z3A.32 32 weeks gestation of pregnancy
CPT/HCPCS: 59025; 76815; 76817; 81001; 84112; 87081; 87086; 87210; 87653; G0463; A9270; J0290; J0702; J7120

== ENCOUNTER 2023-07-31 16:58 | Outpatient (CLI) | payer BC, SELFPAY ==
--- OUTSIDE RECORDS SUMMARY | 2023-07-31 17:00 | XMS_ITS | Clinical Summary ---
Author Organization [facility] Address [address] [place] [address] Care Team Providers Care Blender Conveyor Operator Name Role Phone No Ref-Primary, Physician Primary Care Provider Oleg Aparicio PA-C Unavailable [phone] Ana Oreilly MD Unavailable [phone] Allergies No known active allergies Medications [...] Active Problems Problem Noted Date Diagnosed Date labor 07/15/2023 History of delivery 04/12/2023 Hyperemesis 04/12/2023 Hemorrhoids [...] Encounters Date Type Department Care Team Description 07/28/2023 Telephone [facility] [address] [place] [phone] Jerry Louie Call To Schedule Appointment (Talked with Pt- miguel ptOleg advised to F/U one month after child is born. Will call back to schedule.) 07/15/2023 6:03 PM CDT - 07/18/2023 10:20 AM CDT Hospital Encounter [facility] [address] [phone] Moira Roa MD Discharge Disposition: Home or Self Care 07/15/2023 Hospital Encounter [facility] [address] [phone] Moira Roa MD 07/15/2023 Telephone [facility] [address] [place] [phone] Oleg Aparicio, PA-C CONSENT (Called pt to receive verbal consent to fax to another health office on her care team. LVM to CB.) 07/04/2023 2:30 PM CDT Office Visit [facility] [address] [place] [phone] Oleg Aparicio, PA-C Pulmonary embolism affecting in second trimester (Primary Dx); Family history of blood clots; 31 weeks gestation of 07/04/2023 Travel 06/22/2023 2:00 PM CDT Lab [facility] [address] [place] [address] Pulmonary embolism affecting in second trimester 06/22/2023 MyC Medical Advice [facility] [address] [place] [phone] Oleg Aparicio, PA-C 06/21/2023 10:00 AM CDT Office Visit [facility] Medicine [place] [address] [place] [address] Ori Adame MD Encounter for ultrasound to check growth (Primary Dx) 06/21/2023 9:30 AM CDT - 06/21/2023 11:59 PM CDT Hospital Encounter [place] [address] [place] [phone] Ori Adame MD Encounter for ultrasound to check growth Discharge Disposition: Home or Self Care 06/21/2023 Travel 05/31/2023 11:30 AM CDT Office Visit [facility] Medicine [place] [address] [place] [phone] Ori Adame MD Encounter for ultrasound to check growth (Primary Dx) 05/31/2023 10:45 AM CDT - 05/31/2023 11:59 PM CDT Hospital Encounter [facility] Medicine [place] [address] [place] [phone] Ori Adame MD Encounter for ultrasound to assess growth Discharge Disposition: Home or Self Care 05/31/2023 Travel 05/10/2023 10:00 AM CDT Office Visit [facility] Medicine [place] [address] [place] [phone] Ori Adame MD Encounter for follow-up ultrasound of anatomy (Primary Dx); History of delivery, currently ; Encounter for ultrasound to assess growth 05/10/2023 9:28 AM CDT - 05/10/2023 11:59 PM CDT Hospital Encounter [facility] Medicine [place] [address] [place] [phone] Ori Adame MD Pulmonary embolism affecting in second trimester Discharge Disposition: Home or Self Care 05/10/2023 Travel 05/03/2023 1:00 PM CDT [facility] [address] [place] [phone] Pulmonary embolism affecting in second trimester; Family history of blood clots from Last 3 Months Immunizations Name Administration Dates Next Due Influenza Vaccine >6 months,josep PF 01/25/2022 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 Tobacco Use Types Packs/Day Years Used Date Smoking Tobacco: Never Passive Smoke Exposure: Never Smokeless Tobacco: Never Tobacco Cessation:Counseling Given: Not Answered Alcohol Use Standard Drinks/Week Comments Not Currently 0 (1 standard drink = 0.6 oz pur e alcohol) Adolescent Education Answer Date Record ed Getting [...] Sign Reading Time Taken Comments Blood Pressure 111/62 07/18/2023 8:09 AM CDT Pulse 91 07/17/2023 6:30 PM CDT Temperature 36.8 ??C (98.3 ??F) 07/18/2023 8:09 AM CD T Respiratory Rate 16 07/18/2023 8:40 AM CDT Oxygen Saturation 96% 07/18/2023 7:00 AM CDT Inhaled Oxygen Concentration - - Weight 75.3 kg (166 lb) 07/15/2023 6:42 PM CDT Height 170.2 cm (5' 7) 07/15/2023 6:42 PM CDT Body Mass Index 26 07/15/2023 6:42 PM CDT Plan of Treatment Health Maintenance Due Date Last Done Comments ADVANCE CARE PLANNING 1995 ANNUAL REVIEW OF HM ORDERS 1997 YEARLY PREVENTIVE VISIT 1997 HPV IMMUNIZATION (1 - 3-dose series) 2012 HEPATITIS C SCREENING 05/13/2015 HEPATITIS B IMMUNIZATION (1 of 3 - 19+ 3-dose series) 2016 DTAP/TDAP/TD IMMUNIZATION (1 - Tdap) 2022 COVID-19 Vaccine ( - 2022-2 4 season) 2022 MATERNAL SCREENING DISCUSSION 02/06/2023 PHQ-2 (once per calendar year) 2023 OBGCT (OB) 05/15/2023 GROUP B STREP SCREENING 08/07/2023 INFLUENZA VACCINE (Season Ended) 2023 01/26/20 22 PAP 12/12/2023 12/11/2020 HIV SCREENING Completed 01/26/2023 CHLAMYDIA SCREENING Discontinued 07/15/2023 IPV IMMUNIZATION Aged Out No longer e [...] Procedure Name Priority Date/Time Associated Diagnosis Comments PLATELET COUNT Routine 07/18/2023 8:14 AM CDT WET PREPARATION STAT 07/17/2023 6:52 PM CDT RUPTURE OF MEMBRANES BY ROM PLUS STAT 07/17/2023 6:52 PM CDT ABO/RH TYPE AND SCREEN Timed 9:31 PM CDT CBC WITH PLATELETS & DIFFERENTIAL Routine 07/15/2023 9:31 PM CDT TYPE AND SCREEN, ADULT Timed 9:31 PM CDT CBC WITH PLATELETS AND DIFFERENTIAL Routine 07/15/2023 9:31 PM CDT CREATININE Timed 07/15/2023 9:31 PM CDT ROUTINE UA WITH MICROSCOPIC REFLEX TO CULTURE Routine 07/15/2023 6:45 PM CDT CHLAMYDIA TRACHOMATIS/NEISSERIA GONORRHOEAE BY PCR STAT 07/15/2023 6:23 PM CDT GROUP B STREPTOCOCCUS (EXTERNAL RESULT) Routine 07/15/2023 LOW MOLECULAR WEIGHT HEPARIN ANTI XA LEVEL Routine 06/22/2023 1:58 PM CDT Pulmonary embolism affecting in second trimester [facility] US COMPREHENSIVE SINGLE F/U Routine 06/21/2023 10:50 AM CDT Encounter for ultrasound to check growth [facility] US COMPREHENSIVE SINGLE F/U Routine 05/31/2023 11:40 AM CDT Encounter for ultrasound to assess growth [facility] US COMPREHENSIVE SINGLE F/U Routine [...] second trimester Family history of blood clots HIV 1&2 ANTIBODY (EXTERNAL RESULT) Routine 01/26/2023 from Last 3 Months or Most Recently Relevant to Health Maintenance Results * Platelet count (07/18/2023 8:14 AM CDT) [facility] Platelet Count 170 150 - 450 10e3/uL 07/18/2023 8:32 AM CDT LABORATORY Blood STRUCTURE OF RIGHT UPPER LIMB / Unknown Venipuncture / Unknown 07/18/2023 8:14 AM CDT 07/18/2023 8:27 AM CDT Moira Roa MD LAB - BLOOD ORDERABL ES Performing Organization Address [facility] Co de Phone Number LABORATORY [facility] [address] floor, [address], [place] [address], [facility] [phone] * Rupture of Membranes by ROM Plus (07/17/2023 6:52 PM CDT) Rupture of Membranes by ROM Plus Negative Negative, Invalid, Suggest Repeat RICHARD 07/17/2023 7:23 PM CDT LABORATORY Swab VAGINAL STRUCTURE / Unknown Non-blood Collection / Unknown 07/17/2023 6:52 PM CDT 07/17/2023 6:58 PM CDT Narrative LABORATORY - 07/17/2023 7:23 PM CDT It is recommended that the tests to detect rupture of the amniotic membranes should not be used without other clinical assessments to make clinical patient management decision. Moira Roa MD LAB - BODY FLUIDS OR DERABLES Performing Organization Address [facility] Co de Phone Number LABORATORY [facility] [address], [address], [place] [address], [facility] [phone] * (ABNORMAL) Wet preparation (07/17/2023 6:52 PM CDT) Trichomonas Absent Absent RICHARD 07/17/2023 7:18 PM CDT LABORATORY Yeast Present(A) Absent RICHARD 07/17/2023 7:18 PM CDT LABORATORY Clue Cells Absent Absent RICHARD 07/17/2023 7:18 PM CDT LABORATORY WBCs/high power field 2+(A) None RICHARD 07/17/2023 7:18 PM CDT LABORATORY Swab VAGINAL STRUCTURE / Unknown Non-blood Collection / Unknown 07/17/2023 6:52 PM CDT 07/17/2023 6:58 PM CDT Moira Roa MD LAB - MICRO GENERAL ORDERABLES LABORATORY [facility] [address], [address] [place] [address], [facility] [phone] * (ABNORMAL) CBC with platelets and differential (07/15/2023 9:31 PM CDT) WBC Count 10.6 4.0 - 11.0 10e3/uL 07/15/2023 9:37 PM CDT LABORATORY RBC Count 3.97 3.80 - 5.20 10e6/uL 07/15/2023 9:37 PM CDT LABORATORY Hemoglobin 11.6(L) 11.7 - 15.7 g/dL 07/15/2023 9:37 PM CDT LABORATORY Hematocrit 35.4 35.0 - 47.0 % 07/15/2023 9:37 PM CDT LABORATORY MCV 89 78 - 100 fL 07/15/2023 9:37 PM CDT LABORATORY MCH 29.2 26.5 - 33.0 pg 07/15/2023 9:37 PM CDT LABORATORY MCHC 32.8 31.5 - 36.5 g/dL 07/15/2023 9:37 PM CDT LABORATORY RDW 13.2 10.0 - 15.0 % 07/15/2023 9:37 PM CDT LABORATORY Platelet Count 199 150 - 450 10e3/uL 07/15/2023 9:37 PM CDT LABORATORY % Neutrophils 92 % 07/15/2023 9:37 PM CDT LABORATORY % Lymphocytes 6 % 07/15/2023 9:37 PM CDT LABORATORY % Monocytes 1 % 07/15/2023 9:37 PM CDT LABORATORY % Eosinophils 0 % 07/15/2023 9:37 PM CDT LABORATORY % Basophils 0 % 07/15/2023 9:37 PM CDT LABORATORY % Immature Granulocytes 1 % 07/15/2023 9:37 PM CDT LABORATORY NRBCs per 100 WBC 0 <1 /100 024 9:37 PM CDT LABORATORY Absolute Neutrophils 9.7(H) 1.6 - 8.3 10e3/uL 07/15/2023 9:37 PM CDT LABORATORY Absolute Lymphocytes 0.7(L) 0.8 - 5.3 10e3/uL 07/15/2023 9:37 PM CDT LABORATORY Absolute Monocytes 0.1 0.0 - 1.3 10e3/uL 07/15/2023 9:37 PM CDT LABORATORY Absolute Eosinophils 0.0 0.0 - 0.7 10e3/uL 07/15/2023 9:37 PM CDT LABORATORY Absolute Basophils 0.0 0.0 - 0.2 10e3/uL 07/15/2023 9:37 PM CDT LABORATORY Absolute Immature Granulocytes 0.1 <=0.4 10e3/uL 07/15/2023 9:37 PM CDT LABORATORY Absolute NRBCs 0.0 10e3/uL 07/15/2023 9:37 PM CDT LABORATORY Blood STRUCTURE OF RIGHT UPPER LIMB / Unknown Venipuncture / Unknown 07/15/2023 9:31 PM CDT 07/15/2023 9:34 PM CDT Moira Roa MD LAB - BLOOD ORDERABL ES LABORATORY [facility] [address], [address] [place] [address], [facility] [phone] * Adult Type and Screen (07/15/2023 9:31 PM CDT) ABO/RH(D) O POS 07/15/2023 7:26 PM CDT BLOOD BANK Antibody Screen Negative Negative 07/15/2023 7:26 PM CDT BLOOD BANK SPECIMEN EXPIRATION DATE [id number] 07/15/2023 7:26 PM CDT BLOOD BANK Blood STRUCTURE OF RIGHT UPPER LIMB / Unknown Venipuncture / Unknown 07/15/2023 9:31 PM CDT 07/15/2023 9:34 PM CDT Moira Roa MD LAB - BLOOD BANK MONISHA T ORDER BLOOD BANK [address] [place] [address], [facility] * (ABNORMAL) Creatinine (07/15/2023 9:31 PM CDT) Creatinine 0.47(L) 0.51 - 0.95 mg/dL 07/15/2023 9:55 PM CDT LABORATORY GFR Estimate >90 >60 mL/min/1.7 3m2 07/15/2023 9:55 PM CDT LABORATORY Blood STRUCTURE OF RIGHT UPPER LIMB / Unknown Venipuncture / Unknown 07/15/2023 9:31 PM CDT 07/15/2023 9:34 PM CDT Moira oRa MD LAB - BLOOD ORDERABL ES Performing Organization Address City/[facility]/ZIP Co de Phone Number LABORATORY [facility] [address], [address] [place] [address], [facility] [phone] * (ABNORMAL) UA with Microscopic reflex to Culture (07/15/2023 6:45 PM CDT) Color Urine Straw Colorless, Straw, Light Yellow, Yellow 07/15/2023 7:04 PM CDT LABORATORY Appearance Urine Clear Clear 07/15/19 7:04 PM CDT LABORATORY Glucose Urine Negative Negative mg/dL 07/15/2023 7:04 PM CDT LABORATORY Bilirubin Urine Negative Negative 7:04 PM CDT LABORATORY Ketones Urine 40(A) Negative mg/dL 07/15/2023 7:04 PM CDT LABORATORY Specific [place] Urine 1.009 1.003 - 1.035 07/15/2023 7:04 PM CDT LABORATORY Blood Urine Negative Negative 07/15/2023 7:04 PM CDT LABORATORY pH Urine 8.0(H) 5.0 - 7.0 07/15/2023 7:04 PM CDT LABORATORY Protein Albumin Urine Negative Negative mg/dL 07/15/2023 7:04 PM CDT LABORATORY Urobilinogen Urine Normal Normal, 2.0 mg/dL 07/15/2023 7:04 PM CDT LABORATORY Nitrite Urine Negative Negative 07/15/2023 7:04 PM CDT LABORATORY Leukocyte Esterase Urine Negative Negative 07/15/2023 7:04 PM CDT LABORATORY Mucus Urine Present(A) None Seen /LPF 07/15/2023 7:04 PM CDT LABORATORY RBC Urine <1 <=2 /HPF 07/15/2023 7:04 PM CDT LABORATORY WBC Urine <1 <=5 /HPF 07/15/2023 7:04 PM CDT LABORATORY Squamous Epithelials Urine <1 <=1 /HPF 07/15/2023 7:04 PM CDT LABORATORY Urine URINE SPECIMEN OBTAINED BY CLEAN CATCH PROCEDURE / Unknown Non-blood Collection / Unknown 07/15/2023 6:45 PM CDT 07/15/2023 6:48 PM CDT Narrative LABORATORY - 07/15/2023 7:04 PM CDT Urine Culture not indicated Moira Roa MD LAB - URINE ORDERABL ES LABORATORY [facility] [address], [address] [place] [address], [facility] [phone] * Chlamydia trachomatis/Neisseria gonorrhoeae by PCR (07/15/2023 6:23 PM CDT) Pathologist [facility] Chlamydia Trachomatis Negative Negative 07/16/2023 12:02 PM CDT [facility] Comment: Negative for C. trachomatis rRNA by dismantler mediated amplification. A negative result by dismantler mediated amplification does not preclude the presence of infection because results are dependent on proper and adequate collection, absence of inhibitors and sufficient rRNA to be detected. Neisseria gonorrhoeae Negative Negative 07/16/2023 12:02 PM CDT [facility] Comment:Negative for N. gono rrhoeae rRNA by dismantler mediated amplification. A negative result by dismantler mediated amplification does not preclude the presence of C. trachomatis infection because results are dependent on proper and adequate collection, absence of inhibitors and sufficient rRNA to be detected. Urine VOIDED URINE SPECIMEN / Unknown Non-blood Collection / Unknown 07/15/2023 6:23 PM CDT 07/15/2023 6:30 PM CDT Moira Roa MD LAB - MICRO GENERAL ORDERABLES Performing Organization Address City/[facility]/ZIP Co de Phone Number [facility]ORATORY [facility] Inf. Diseases Diag. Lab [address] [facility] [facility], [address] [place] [address] * Group B Streptococcus (External Result) (07/15/2023) Group B Streptococcus (External) Negative Negative EXTERNAL LAB Patient Reported LAB - HIM EXTERNAL R ESULT Performing Organization Address [facility] Co de Phone Number EXTERNAL LAB External Lab * Low Molecular Weight Heparin Anti Xa Level (06/22/2023 1:58 PM CDT) Only the most recent of2 [...] - BLOOD ORDERABL ES Performing Organization Address [facility] Co de Phone Number [facility] LABORATORY [facility] [place] [facility] Lab [address] [facility] [facility], [address] [place] [address], [facility] * [facility] US Comprehensive Single F/U (06/21/2023 [...] ? Study Date: ??06/21/2023 9:50am Pat. NO: ??[id number] ?Referring ??: TRISTA MELLO Site: ??[facility] ? Bolt Man: Chanda Lazo RDMS : ??1995 ?Age: ?? [...] ?Hadlock Humerus ?49.1 ?mm ? 28w 6d ?Jjoo Weight Calculation: EFW ? 1,258 ?g ? 18% ?Hadlock EFW (lb,oz) ? 2 lb 12 ?oz EFW by ?Hadlock ([id number]) Head / Face / Neck Biometry: Eviscerator ? 4.9 ? mm CM ?5.5 ? mm ANATOMY ----- The following structures appear normal: Head / Neck ? Cranium. Head size. Head shape. Lateral ventricles. Midline falx. Cerebellum. Cisterna magna. Thalami. Face ? Lips. Profile. Nose. Heart / Thorax ?4-chamber view. RVOT view. LVOT view. 0-sscezt-wgifgkm view. ? Diaphragm. Abdomen ? Stomach. Kidneys. [...] [place] Study Date: 06/21/2023 9:50am Pat. NO: [id number] Referring MD: TRISTA MELLO Site: [facility] Bolt Man: Chanda Lazo RDMS : 1995 Age: 28 [...] 2 lb 12 oz EFW by Hadlock ([id number]) Head / Face / Neck Biometry: Eviscerator 4.9 mm CM 5.5 mm ANATOMY ----- The following structures appear normal: Head / Neck Cranium. Head size. Head shape.Lateral ventricles. Midline falx. Cerebellum. Cisterna magna. Thalami. Face Lips. Profile. Nose. Heart / Thorax 4-chamber view. RVOT view. LVOT view.1-mrkmwu-nuqypqd view. Diaphragm. Abdomen Stomach. Kidneys. Bladder. Spine [...] fluid volume appeared normal. Ori Adame MD [facility] ORDERABL ES * Cardiolipin Makenzie IgG and [...] Core/Prot/Endo [address] [facility], [address] * Beta 2 Glycoprotein 1 Antibody IgM (05/03/2023 1:03 PM CDT) Beta 2 Glycoprotein 1 Antibody IgM <2.4 <7.0 U/mL 05/04/2023 10:34 AM CDT SPECIALTY CORE/PROT/END O Comment:Negative Blood BLOOD SPECIMEN / Unknown Venipuncture / Unknown 05/03/2023 1:03 PM CDT 05/03/2023 1:03 PM CDT Oleg Aparicio PA-C LAB - BLOOD ORDERABL ES [facility] SPECIALTY CORE/PROT/ENDO UM Specialty Core/Prot/Endo [address] [facility] [address], [address] * Beta 2 Glycoprotein 1 Antibody IgG (05/03/2023 1:03 PM CDT) Beta 2 Glycoprotein 1 Antibody IgG <0.8 <7.0 U/mL 05/04/2023 10:34 AM CDT SPECIALTY CORE/PROT/END O Comment:Negative Blood BLOOD SPECIMEN / Unknown Venipuncture / Unknown 05/03/2023 1:03 PM CDT 05/03/2023 1:03 PM CDT Oleg Aparicio PA-C LAB - BLOOD ORDERABL ES UM SPECIALTY CORE/PROT/ENDO UM Specialty Core/Prot/Endo [address] [facility] [address] [facility], [address] * (ABNORMAL) Lupus Anticoagulant Panel (05/03/2023 [...] Result Negative Negative 4 2:25 PM CDT SPECIAL COAGULATION Lupus Interpretation INR is normal. APTT ratio is normal. ?? DRVVT Screen ratio is decreased. Thrombin time is prolonged. NEGATIVE TEST; A LUPUS ANTICOAGULANT WAS NOT DETECTED IN THIS SPECIMEN WITHIN THE LIMITS OF THE TESTING REPERTOIRE. If the clinical picture is strongly suggestive of an antiphospholipid syndrome, recommend anticardiolipin and xcmm-5-sboqzvsqsko n (IgG and IgM) antibody tests. Recommend [...] UM SPECIAL COAGULATION UM Special Coagulation [address] [facility], [address] [place] [phone] * HIV-1 Antibody (External Result) (01/26/2023) HIV 1&2 Antibody (External) Negative Nonreactive EXTERNAL LAB Patient Reported LAB - HIM EXTERNAL R ESULT EXTERNAL LAB External Lab from Last 3 Months or Most Recently Relevant to Health Maintenance Advance Directives For more information, please contact: [phone] * Full Code (Latest Code Status on File) Date Activated Date Inactivated Comments 07/15/2023 7:25 PM 07/18/2023 1:55 PM All basic an d advanced life-sustaining interventions are performed as appropriate Question Answer Comments Code status determined by: Discussion with parase nt/ legal decision maker Care Teams Blender Conveyor Operator Relationship Specialty Start Date End Date No Ref-Primary, Physician PCP - General 03/31/23 Oleg Aparicio PA-C [address] [facility] [address] [place] [address] Assigned Cancer Care Provider 05/06/23 Ana Oreilly MD [address] [place] [id number] Assigned OBGYN Provider 05/06/23
--- OUTSIDE RECORDS SUMMARY | 2023-07-31 17:00 | XMS_ITS | Continuity of Care Document ---
Author Organization [facility] Address [address] [place] [address] Phone Care Team Providers Care Transitional Kindergarten Teacher Name Role Phone Moira Roa MD Unavailable Unavailable Procedures Procedure Date Subsequent Hospital Care MDM Straightfor armendariz Or LOW 25 MIN Initial Hospital Inpatient Or Observatio n Moderate MDM 55min Subsequent Hospital Care MDM Moderate 35 MIN Hospital Inpatient Or Observation Discha rge 30 Min Or Less Advance Directives Directive Yes / No Effective Date File Name No Information Encounters Encounter Description Practice Location Reason(s) For Visit Diagnoses Date Provider Providers Copied on Encounter [facility], [address], [place], [place], [id number] , [place] tel: [phone] [facility] No Information 4 Crispin Pizarro. [address], [place], [address], [place]. tel: [phone] Subsequent Hospital Care MDM Straightforward Or LOW 25 MIN [facility], [address], [place], [place], [id number] , [place] tel: [phone] [facility] IP No Information 4 Soledad Valentin. [address], [place], [address], [place]. tel: [phone] Initial Hospital Inpatient Or Observation Moderate MDM 55min [facility], [address], [place], [place], [id number] , [place] tel: [phone] [facility] IP labor without delivery, third trimesterPersona l history of pre-term laborInfection of other part of genital tract in , third trimesterPersona l history of pulmonary [id number] weeks gestation of pregnancyStrepto coccus B carrier state complicating weeks gestation of 4 [facility]. [address], [place], [address], [place]. tel:[phone] Family History Family Member Type Diagnosis Age At Onset No Information Payers Payer name Insurance type Covered republican ID Authoriza tion(s) No Information 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 Type Description Quantity Date Captured Comments Sex Female Smoking Status No Information Chief Complaint And Reason For Visit No Information History Of Present Illness Encounter Date Complaint History Of Prese nt Illness No Information Instructions Date Instruction Additional Infor mation No Information Assessments Type Assessment Date No Information
--- OUTSIDE RECORDS SUMMARY | 2023-07-31 17:00 | XMS_ITS | Referral Summary ---
Author Organization [place] Address [address] [place] [address] Care Team Providers Care Compressor Station Chief Engineer Name Role Phone No Ref-Primary, Physician Primary Care Provider Oleg Aparicio PA-C Unavailable [phone] Ana Oreilly MD Unavailable [phone] Encounters Date Type Department Care Team Description 07/28/2023 Telephone [facility] [address] [place] [address] Resource, Ur Hemo Call To Schedule Appointment (Talked with Pt- per ptOleg advised to F/U one month after child is born. Will call back to schedule.) 07/15/2023 6:03 PM CDT - 07/18/2023 10:20 AM CDT Hospital Encounter [facility] [address] [phone] Moira Roa MD Discharge Disposition: Home or Self Care 07/15/2023 Hospital Encounter [facility] [address] [phone] Moira Roa MD 07/15/2023 Telephone [facility] [address] [place] [address] Oleg Aparicio, PALeeann CONSENT (Called pt to receive verbal consent to fax to another health office on her care team. LVM to CB.) 07/04/2023 Travel 07/04/2023 2:30 PM CDT Office Visit [facility] [address] [place] [address] Oleg Aparicio PA-C Pulmonary embolism affecting in second trimester (Primary Dx); Family history of blood clots; 31 weeks gestation of 06/22/2023 2:00 PM CDT Lab [facility] [address] [place] [address] Pulmonary embolism affecting in second trimester 06/22/2023 MyC Medical Advice [facility] [address] [place] [address] Oleg Aparicio PA-C 06/21/2023 Travel 06/21/2023 10:00 AM CDT Office Visit [facility] [address] [place] [phone] Ori Adame MD Encounter for ultrasound to check growth (Primary Dx) 06/21/2023 9:30 AM CDT - 06/21/2023 11:59 PM CDT Hospital Encounter [facility] [address] [place] [address] Ori Adame MD Encounter for ultrasound to check growth Discharge Disposition: Home or Self Care 05/31/2023 Travel 05/31/2023 11:30 AM CDT Office Visit [facility] [address] [place] [phone] Ori Adame MD Encounter for ultrasound to check growth (Primary Dx) 05/31/2023 10:45 AM CDT - 05/31/2023 11:59 PM CDT Hospital Encounter [facility] [address] [place] [phone] Ori Adame MD Encounter for ultrasound to assess growth Discharge Disposition: Home or Self Care 05/10/2023 Travel 05/10/2023 10:00 AM CDT Office Visit [facility] [address] [place] [address] Ori Adame MD Encounter for follow-up ultrasound of anatomy (Primary Dx); History of delivery, currently ; Encounter for ultrasound to assess growth 05/10/2023 9:28 AM CDT - 05/10/2023 11:59 PM CDT Hospital Encounter [facility] [address] [facility] [address] [place] [address] Ori Adame MD Pulmonary embolism affecting in second trimester Discharge Disposition: Home or Self Care 05/03/2023 1:00 PM CDT Lab [facility] [address] [place] [address] Pulmonary embolism affecting in second trimester; Family history of blood clots from Last 3 Months Allergies No known [...] 07/15/2023 6:42 PM CDT Plan of Treatment Not on [...] CDT Pulmonary embolism affecting in second trimester [facility] US COMPREHENSIVE SINGLE F/U Routine 06/21/2023 10:50 AM CDT Encounter for ultrasound to check growth [facility] US COMPREHENSIVE SINGLE F/U Routine 05/31/2023 11:40 AM CDT Encounter for ultrasound to assess growth [facility] US COMPREHENSIVE SINGLE F/U Routine 05/10/2023 [...] * Platelet count (07/18/2023 8:14 AM CDT) Platelet Count 170 150 - 450 10e3/uL 07/18/2023 8:32 AM CDT LABORATORY Blood STRUCTURE OF RIGHT UPPER LIMB / Unknown Venipuncture / Unknown 07/18/2023 8:14 AM CDT 07/18/2023 8:27 AM CDT Moira Roa MD LAB - BLOOD ORDERABL ES [facility] [address] 1[address] floor, Room [address] [place] [address], [facility] [phone] * Rupture of Membranes by ROM Plus [...] MD LAB - BODY FLUIDS OR DERABLES [facility] [address] 1[address] floor, [address] [place] [address], [facility] [phone] * (ABNORMAL) Wet preparation (07/17/2023 6:52 PM CDT) [facility] Trichomonas Absent Absent RICHARD 07/17/2023 7:18 PM [...] - MICRO GENERAL ORDERABLES Performing Organization Address City/State/[facility] Co de Phone Number LABORATORY [facility] [address] 1st floor, [address] [place] [address], [facility] [phone] * (ABNORMAL) CBC with platelets and differential (07/15/2023 9:31 PM CDT) [facility] WBC Count 10.6 4.0 - 11.0 10e3/uL [...] MD LAB - BLOOD ORDERABL ES LABORATORY [facility] [address] 1st floor, [address] [place] [address], [facility] [phone] * Adult Type and Screen (07/15/2023 9:31 PM CDT) ABO/RH(D) O POS 07/15/2023 7:26 PM CDT BLOOD BANK Antibody Screen Negative Negative 07/15/2023 7:26 PM CDT BLOOD BANK SPECIMEN EXPIRATION DATE [id number] 07/15/2023 7:26 PM CDT BLOOD BANK Blood STRUCTURE OF RIGHT UPPER LIMB / Unknown Venipuncture / Unknown 07/15/2023 9:31 PM CDT 07/15/2023 9:34 PM CDT Moira Roa MD LAB - BLOOD BANK MONISHA T ORDER BLOOD BANK [address] [place] [address], [facility] * (ABNORMAL) Creatinine (07/15/2023 9:31 PM CDT) Creatinine 0.47(L) 0.51 - 0.95 mg/dL 07/15/2023 9:55 PM CDT LABORATORY GFR Estimate >90 >60 mL/min/1.7 3m2 07/15/2023 9:55 PM CDT LABORATORY Blood STRUCTURE OF RIGHT UPPER LIMB / Unknown Venipuncture / Unknown 07/15/2023 9:31 PM CDT 07/15/2023 9:34 PM CDT Moira Roa MD LAB - BLOOD ORDERABL ES LABORATORY [facility] [address] 1st floor, [address] [place] [phone], [facility] [phone] * (ABNORMAL) UA with Microscopic reflex to Culture (07/15/2023 6:45 PM CDT) Color Urine Straw Colorless, Straw, Light Yellow, Yellow 07/15/2023 7:04 PM CDT LABORATORY Appearance Urine Clear Clear 07/15/19 7:04 PM CDT LABORATORY Glucose Urine Negative Negative mg/dL 07/15/2023 7:04 PM CDT LABORATORY Bilirubin Urine Negative Negative 7:04 PM CDT LABORATORY Ketones Urine 40(A) Negative mg/dL 07/15/2023 7:04 PM CDT LABORATORY Specific [place] Urine 1.009 1.003 - 1.035 07/15/2023 7:04 [...] MD LAB - URINE ORDERABL ES LABORATORY [facility] [address] 1st floor, [address] [place] [address], [facility] [phone] * Chlamydia trachomatis/Neisseria gonorrhoeae by PCR (07/15/2023 6:23 PM CDT) Chlamydia Trachomatis Negative Negative 07/16/2023 12:02 PM CDT [facility] Comment: Negative for C. trachomatis rRNA by country singer mediated amplification. A negative result by country singer mediated amplification does not preclude the presence of infection because results are dependent on proper and adequate collection, absence of inhibitors and sufficient rRNA to be detected. Neisseria gonorrhoeae Negative Negative 07/16/2023 12:02 PM CDT [facility] Comment:Negative for N. gono rrhoeae rRNA by country singer mediated amplification. A negative result by country singer mediated amplification does not preclude the presence of C. trachomatis infection because results are dependent on proper and adequate collection, absence of inhibitors and sufficient rRNA to be detected. Urine VOIDED URINE SPECIMEN / Unknown Non-blood Collection / Unknown 07/15/2023 6:23 PM CDT 07/15/2023 6:30 PM CDT Moira Roa MD LAB - MICRO GENERAL ORDERABLES [facility] Inf. Diseases Diag. Lab [address] [facility], [address] [place] [phone] * Group B Streptococcus (External Result) (07/15/2023) Pathologist [facility] Group B Streptococcus (External) Negative Negative EXTERNAL LAB Patient Reported LAB - HIM EXTERNAL R ESULT EXTERNAL LAB External Lab * Low Molecular Weight Heparin Anti Xa Level (06/22/2023 1:58 PM CDT) Only the most recent of2 resultswithin the time period is included. Pathologist [facility] Anti Xa Low Molecular Weight 0.58 [...] LAB - BLOOD ORDERABL ES U LABORATORY [facility] [place] [facility] [address] [facility], [address] [place] [address], [facility] * [facility] Single F/U (06/21/2023 10:50 AM CDT) [...] ? Study Date: ??06/21/2023 9:50am Pat. NO: ??[id number] ?Referring ??MD: TRISTA MELLO Site: ??[facility] ? Beef Ribber: Chanda Violet [facility] : ??1995 ?Age: ?? 28 ----- INDICATION [...] 2 lb 12 ?oz EFW by ?Hadlock ([id number]) Head / Face / Neck Biometry: Cut Off Operator Scorer ? 4.9 ? mm CM ?5.5 ? mm ANATOMY ----- The following structures appear normal: Head / Neck ? Cranium. Head size. Head shape. Lateral ventricles. Midline falx. Cerebellum. Cisterna magna. Thalami. Face ? Lips. Profile. Nose. Heart / Thorax ?4-chamber view. RVOT view. LVOT view. 3-ousbwg-gnooxrq view. ? Diaphragm. Abdomen ? Stomach. Kidneys. [...] [place] Study Date: 06/21/2023 9:50am Pat. NO: [id number] Referring MD: TRISTA MELLO Site: [facility] Beef Ribber: Chanda Lazo RDMS : 1995 Age: 28 [...] 2 lb 12 oz EFW by Hadlock ([id number]-FL) Head / Face / Neck Biometry: Cut Off Operator Scorer 4.9 mm CM 5.5 mm ANATOMY ----- The following structures appear normal: Head / Neck Cranium. Head size. Head shape.Lateral ventricles. Midline falx. Cerebellum. Cisterna magna. Thalami. Face Lips. Profile. Nose. Heart / Thorax 4-chamber view. RVOT view. LVOT view.4-lfipiy-jiroved view. Diaphragm. Abdomen Stomach. Kidneys. Bladder. Spine [...] fluid volume appeared normal. Ori Adame MD [facility] US ORDERABL ES * Cardiolipin Makenzie IgG [...] UM SPECIALTY CORE/PROT/ENDO [facility] Specialty Core/Prot/Endo [address] [facility] [address], [address] * Beta 2 Glycoprotein 1 Antibody IgM (05/03/2023 1:03 PM CDT) Beta 2 Glycoprotein 1 Antibody IgM <2.4 <7.0 U/mL 05/04/2023 10:34 AM CDT UM SPECIALTY CORE/PROT/END O Comment:Negative Blood BLOOD SPECIMEN / Unknown Venipuncture / Unknown 05/03/2023 1:03 PM CDT 05/03/2023 1:03 PM CDT Oleg OREILLY-C LAB - BLOOD ORDERABL ES [facility] SPECIALTY CORE/PROT/ENDO [facility] Specialty Core/Prot/Endo [address] [facility], [address] * Beta 2 Glycoprotein 1 Antibody [...] [facility] [place]/ZIP Co de Phone Number UM SPECIALTY CORE/PROT/ENDO Specialty Core/Prot/Endo [address] [facility], [address] * (ABNORMAL) Lupus Anticoagulant Panel (05/03/2023 [...] of an antiphospholipid syndrome, recommend anticardiolipin and ebsy-8-rdrlgotzapx n (IgG and IgM) antibody tests. Recommend [...] - BLOOD ORDERABL ES Performing Organization Address [facility] Co de Phone Number SPECIAL COAGULATION UM Special Coagulation [address] [facility], [address] [place] [phone] * HIV-1 Antibody (External Result) (01/26/2023) HIV 1&2 Antibody (External) Negative Nonreactive EXTERNAL LAB Patient Reported LAB - HIM EXTERNAL R ESULT EXTERNAL LAB External Lab from Last 3 Months or Most Recently Relevant to Health Maintenance Advance Directives For more information, please contact: [phone] * Full Code (Latest Code Status on File) Date Activated Date Inactivated Comments 07/15/2023 7:25 PM 07/18/2023 1:55 PM All basic an d advanced life-sustaining interventions are performed as appropriate Question Answer Comments Code status determined by: Discussion with patie nt/ legal decision maker Care Teams Compressor Station Chief Engineer Relationship Specialty Start Date End Date No Ref-Primary, Physician PCP - General 03/31/23 Oleg Aparicio, PA-C [facility] [address] [place] [address] Assigned Cancer Care Provider 05/06/23 Ana Oreilly MD [address] [facility] [address] [place] [address] Assigned OBGYN Provider 05/06/23
--- OUTSIDE RECORDS SUMMARY | 2023-07-31 17:01 | XMS_ITS | Encounter Summary ---
Author Organization [place] Address [address] [facility] [place] [address] Care Team Providers Care Mental Telepathist Name Role Phone No Ref-Primary, Physician Primary [...] on filedocumented in this encounter Care Teams Mental Telepathist Relationship Specialty Start Date End Date No Ref-Primary, Physician PCP - General 03/31/23 documented as of this encounter
--- OUTSIDE RECORDS SUMMARY | 2023-07-31 17:01 | XMS_ITS | Encounter Summary ---
Author Organization [place] Address [address] [facility] [place] [address] Care Team Providers Care Sales And Service Advisor Name Role Phone No Ref-Primary, Physician Primary Care Provider Oleg Aparicio PA-C Unavailable [phone] Ana Oreilly MD Unavailable [phone] Encounter Details Date Type Department Care [...] on filedocumented in this encounter Care Teams Sales And Service Advisor Relationship Specialty Start Date End Date No Ref-Primary, Physician PCP - General 03/31/23 Oleg Aparicio PA-C [address] [place] [address] [address] [place] [address] Assigned Cancer Care Provider 05/06/23 Ana Oreilly MD [address] [facility] [address] [place] [address] Assigned OBGYN Provider 05/06/23 documented as of this encounter
--- OUTSIDE RECORDS SUMMARY | 2023-07-31 17:01 | XMS_ITS | Encounter Summary ---
Author Organization [place] Address [address] [facility] [place] [address] Care Team Providers Care Cyber Defense Analyst Name Role Phone No Ref-Primary, Physician Primary Care Provider Oleg Aparicio PA-C Unavailable [phone] Ana Oreilly MD Unavailable [phone] Reason for Referral * Diagnostic Imaging Ultrasound (Routine) - Pending Review Specialty Diagnoses / Procedures Referred By Contac t Referred To Contact Radiology. Diagnoses Pulmonary embolism affecting in second trimester Procedures [facility] US Comprehensive Single F/U Ana Oreilly MD [address] [facility] [employer] [address] [address] Referral ID Status Reason Start Date Expiration Date V isits Requested Visits Authorized [id number] Pending Review 04/12/2023 04/11/2024 1 1 Reason for Visit * Diagnostic Imaging Ultrasound (Routine) - Pending Review Specialty Diagnoses / Procedures Referred By Contac t Referred To Contact Radiology. Diagnoses Pulmonary embolism affecting in second trimester Procedures [facility] US Comprehensive Single F/U Ana Oreilly MD [address] [place] [address] Referral ID Status Reason Start Date Expiration Date V isits Requested Visits Authorized [id number] Pending Review 04/12/2023 04/11/2024 1 1 Encounter Details Date Type Department Care Team (Latest Contact Info) Description 05/10/2023 9:28 AM CDT - 05/10/2023 11:59 PM CDT Hospital Encounter [facility] [place] [address] [facility] [address] [place] [address] Ori Adame MD [address] [place] [address] Pulmonary embolism affecting in second [...] Priority Date/Time Associated Diagnosis Comments [facility] COMPREHENSIVE SINGLE F/U Routine 05/10/2023 10:08 AM CDT Pulmonary embolism affecting in second trimester documented in this encounter Results * [facility] US Comprehensive Single F/U (05/10/2023 10:08 AM [...] CDT ?Comp Follow Up ----- Pat. Name: C[place]ANDGABRIELLE LANG[place]ON ? Study Date: ??05/10/2023 9:30am Pat. NO: ??[id number] ?Referring ??MD: TRISTA MELLO Site: ??[facility] ? Housekeeping/Laundry: Yamel Hill RDMS : ??1995 ?Age: ?? [...] 1 lb 2 ?oz EFW by ?Hadlock ([id number]) Head / Face / Neck Biometry: Pediatric Intensive Physician ? 6.2 ? mm CM ?3.8 ? mm Nasal bone ? 7.0 ? mm ANATOMY ----- The following structures appear normal: Head / Neck ? Cranium. Head size. Head shape. Lateral ventricles. Midline falx. Cavum septi pellucidi. Cerebellum. Cisterna magna. Thalami. Face ? Lips. Profile. Nose. Maxilla. Mandible. Heart / Thorax ?4-chamber view. RVOT view. LVOT view. Situs. 5-yvcgdo-xolwliv view. ? Diaphragm. Abdomen ? Stomach. Kidneys. [...] [place] Study Date: 05/10/2023 9:30am Pat. NO: [id number] Referring MD: TRISTA MELLO Site: [facility] Housekeeping/Laundry: Yamel Hill RDMS : 1995 Age: 27 [...] 1 lb 2 oz EFW by Hadlock ([id number]-FL) Head / Face / Neck Biometry: Pediatric Intensive Physician 6.2 mm CM 3.8 mm Nasal bone 7.0 mm ANATOMY ----- The following structures appear normal: Head / Neck Cranium. Head size. Head shape.Lateral ventricles. Midline falx. Cavum septi pellucidi. Cerebellum.Cisterna magna. Thalami. Face Lips. Profile. Nose. Maxilla.Mandible. Heart / Thorax 4-chamber view. RVOT view. LVOT view.Situs. 2-ngvfyq-tfajsjw view. Diaphragm. Abdomen Stomach. Kidneys. Bladder. Spine [...] with no funneling. Ana Oreilly MD IMG [facility] US ORDERABLE S documented in this encounter Visit Diagnoses Diagnosis Pulmonary embolism affecting in second trimester documented in this encounter Care Teams Cyber Defense Analyst Relationship Specialty Start Date End Date No Ref-Primary, Physician PCP - General 03/31/23 Oleg Aparicio, PABrightC [address] [place] [address] [address] [place] [address] Assigned Cancer Care Provider 05/06/23 Ana Oreilly MD [address] [facility] [address] [place] [address] Assigned OBGYN Provider 05/06/23 documented as of this encounter
--- OUTSIDE RECORDS SUMMARY | 2023-07-31 17:01 | XMS_ITS | Encounter Summary ---
Author Organization [place] Address [address] [facility] [place] [address] Care Team Providers Care Baling Press Operator Name Role Phone No Ref-Primary, [...] on filedocumented in this encounter Care Teams Baling Press Operator Relationship Specialty Start Date End Date No Ref-Primary, Physician PCP - General 03/31/23 documented as of this encounter
--- OUTSIDE RECORDS SUMMARY | 2023-07-31 17:01 | XMS_ITS | Encounter Summary ---
Author Organization [place] Address [address] [place] [address] Care Team Providers Care Vascular Technician Name Role Phone No Ref-Primary, Physician Primary Care Provider Oleg Aparicio PA-C Unavailable [phone] Ana Oreilly MD Unavailable [phone] Encounter Details Date Type Department Care Team (Late st Contact Info) Description 06/22/2023 2:00 PM CDT Lab [facility] [address] [facility] [address] [place] [address] Pulmonary embolism affecting in second [...] - BLOOD ORDERABL ES [facility] LABORATORY [facility] Lab [address] [facility], [address] [place] [phone] documented in this encounter Visit Diagnoses Diagnosis Pulmonary embolism affecting in second trimester documented in this encounter Care Teams Vascular Technician Relationship Specialty Start Date End Date No Ref-Primary, Physician PCP - General 03/31/23 Oleg Aparicio PA-C [address] [facility] [address] [place], [place] [address] Assigned Cancer Care Provider 05/06/23 Ana Oreilly MD [address] [place] [address] Assigned OBGYN Provider 05/06/23 documented as of this encounter
--- OUTSIDE RECORDS SUMMARY | 2023-07-31 17:01 | XMS_ITS | Encounter Summary ---
Author Organization [place] Address [address] [place] [address] Care Team Providers Care Inspector Glass Or Mirror Name Role Phone No Ref-Primary, Physician Primary Care Provider Oleg Aparicio PA-C Unavailable [phone] Ana Oreilly MD Unavailable [phone] Reason for Visit * Reason Onset Date Comments CONSENT 07/15/2023 Called pt to rec eive verbal consent to fax to another health office on her care team. LVM to CB. Encounter Details Date Type Department Care Team (Late st Contact Info) Description 07/15/2023 Telephone [facility] [address] [place] [address] Oleg Aparicio PA-C [address] [place] [address] CONSENT (Called pt to receive verbal consent to fax to another health office on her care team. LVM to CB.) 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 Tobacco Use Types Packs/Day Years Used Date Smoking Tobacco: Never Passive Smoke Exposure: Never Smokeless Tobacco: Never Alcohol Use Standard Drinks/Week Comments Not Currently [...] encounter Miscellaneous Notes * Telephone Encounter - Anitha Knott MA - 07/15/2023 2:31 PM CDT Called pt to receive verbal consent to fax to another health office on her care team. LVM to CB. documented in this encounter Plan of Treatment Not on file documented as of this encounter Visit Diagnoses Not on filedocumented in this encounter Care Teams Inspector Glass Or Mirror Relationship Specialty Start Date End Date No Ref-Primary, Physician PCP - General 03/31/23 Oleg Aparicio, PABrightC [address] [place], [place] [address] Assigned Cancer Care Provider 05/06/23 Ana Oreilly MD [address] [place], [place] [address] Assigned OBGYN Provider 05/06/23 documented as of this encounter
--- OUTSIDE RECORDS SUMMARY | 2023-07-31 17:01 | XMS_ITS | Encounter Summary ---
Author Organization [place] Address [address] [place] [address]. [place] [address] Care Team Providers Care Fiberglass Luggage Molder Name Role Phone No Ref-Primary, Physician Primary Care Provider Oleg Aparicio PA-C Unavailable [phone] Ana Oreilly MD Unavailable [phone] Encounter Details Date Type Department Care Team (Late st Contact Info) Description 06/22/2023 [facility] Medical Advice [facility] [address] [place] [address] Oleg Aparicio PA-C [address] [place] [address] 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 Tobacco Use Types [...] Lovenox at 8:56 AM. 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 Patient verbalized understanding and will go to lab. Sandie White RN, BSN, PCCN Nurse Clinician [facility] for [facility] Disorders [address] [place] [address] [address], [place] [address] Office, direct: [phone] Main office number: [phone] Pronouns: She, her, hers documented in this encounter Plan of Treatment Not on file documented as of this encounter Visit Diagnoses Not on filedocumented in this encounter Care Teams Fiberglass Luggage Molder Relationship Specialty Start Date End Date No Ref-Primary, Physician PCP - General 03/31/23 Oleg Aparicio, JULIAC [address] [place] [address] Assigned Cancer Care Provider 05/06/23 Ana Oreilly MD [address] [address] Assigned OBGYN Provider 05/06/23 documented as of this encounter
--- OUTSIDE RECORDS SUMMARY | 2023-07-31 17:01 | XMS_ITS | Encounter Summary ---
Author Organization [facility] Address [address] 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 Role Phone No Ref-Primary, Physician Primary Care Provider Oleg Aparicio PA-C Unavailable [phone] Ana Oreilly MD Unavailable [phone] Reason for Visit * Reason Comments Labor * Auth/Cert (Routine) Specialty Diagnoses / Procedures Referred By Contac t Referred To Contact patient svcs mgr Diagnoses labor Sh Labor & Delivery [address] [phone] Referral ID Status Reason Start Date Expiration Date Visits Re quested Visits Authorized [id number] 1 1 Encounter Details Date Type Department Care Team (Latest Contact Info) Description 07/15/2023 6:03 PM CDT - 07/18/2023 10:20 AM CDT Hospital Encounter [facility] [address] [phone] Moira Roa MD [address] [id number] Discharge Disposition: Home or Self Care Social [...] Mass Index 26 07/15/2023 6:42 PM CDT documented in this encounter Discharge Instructions * Discharge Instructions* Donita Dye RN - 07/18/2023 9:09 AM CDT Learning About When to Call Your Doctor During (After 20 Weeks) Overview It's common to have concerns about what might be a problem when you're . Most pregnancies don't have any serious problems. But it's still important to know when to call your doctor if you have certain symptoms or signs of labor. These are general suggestions. Your doctor may give you some more information about when to call. When to call your doctor (after 20 weeks) Call 911 anytime you think you may need emergency care. For example, call if: You have severe vaginal bleeding. This means you are soaking through a pad each hour for 2 or more hours. You have sudden, severe pain in your belly. You have chest pain, are short of breath, or cough up blood. You passed out (lost consciousness). You have a seizure. You see or feel the umbilical cord. You think you are about to deliver your baby and can't make it safely to the hospital or birthing center. Call your doctor now or seek immediate medical care if: You have vaginal bleeding. You have belly pain. You have a fever. You are dizzy or lightheaded, or you feel like you may faint. You have signs of a blood clot in your leg (called a deep vein thrombosis), such as: Pain in the calf, back of the knee, thigh, or groin. Swelling in your leg or groin. A color change on the leg or groin. The skin may be reddish or purplish, depending on your usual skin color. You have symptoms of preeclampsia, such as: Sudden swelling of your face, hands, or feet. New vision problems (such as dimness, blurring, or seeing spots). A severe headache. You have a sudden release of fluid from your vagina. (You think your water broke.) You've been having regular contractions for an hour. This means that you've had at least 6 contractions within 1 hour, even after you change your position and drink fluids. You notice that your baby has stopped moving or is moving less than normal. You have signs of heart failure, such as: New or increased shortness of breath. New or worse swelling in your legs, ankles, or feet. Sudden weight gain, such as more than 2 to 3 pounds in a day or 5 pounds in a week. Feeling so tired or weak that you cannot do your usual activities. You have symptoms of a urinary tract infection. These may include: Pain or burning when you urinate. A frequent need to urinate without being able to pass much urine. Pain in the flank, which is just below the rib cage and above the waist on either side of the back. Blood in your urine. Watch closely for changes in your health, and be sure to contact your doctor if: You have vaginal discharge that smells bad. You feel sad, anxious, or hopeless for more than a few days. You have skin changes, such as a rash, itching, or a yellow color to your skin. You have other concerns about your . If you have labor signs at 37 weeks or more If you have signs of labor at 37 weeks or more, your doctor may tell you to call when your labor becomes more active. Symptoms of active labor include: Contractions that are regular. Contractions that are less than 5 minutes apart. Contractions that are hard to talk through. Follow-up care is a ramírez part of your treatment and safety. Be sure to make and go to all appointments, and call your doctor if you are having problems. It's also a good idea to know your test resultsand keep a list of the medicines you take. Where can you learn more? Go to https://www.[employer].net/patiented Enter N531 in the search box to learn more about Learning About When to Call Your Doctor During (After 20 Weeks). Current as of: August 30, 2022 Content Version: 14.0 ?? [employer]. Care instructions adapted under license by your healthcare professional. If you have questions about a medical condition or this instruction, always ask your healthcare professional. [employer] disclaims any warranty or liability for your use of this information. documented in this encounter Medications at Time of Discharge Medication Sig Dispensed Refills Start Date End Date enoxaparin ANTICOAGULANT (LOVENOX) 100 MG/ML syringeIndications:Pulmo nary embolism affecting in second trimester,Family history of blood clots Inject 1 mL (100 mg) Subcutaneous every 12 hours 60 mL 4 04/28/2023 Vit-Fe Fumarate-FA ( VITAMIN PO) Take 1 tablet by mouth daily documented as of this encounter Progress Notes * Moira Roa MD - 07/18/2023 8:42 AM CDT Antepartum Daily Progress Note Patient name: Gabrielle Mcmahon : 1995 Admit date: 07/15/2023 Acct: [id number] Assessment/Plan: Gabrielle Mcmahon is a at 33w1d who admitted for threatened labor. Today is HD#4. Pt transferred here from an outside facility and is unassigned to [facility]. contractions - minimal cervical change during admission. - continues to have irregular and non painful cramping. - s/p Nifedipine course - s/p BMZ 07/14, 07/15 - UDip WNL. NG/CT neg - GBS negative - s/p NICU consult - Tracings reactive - Dispo: plan for discharge today with low threshold to return for any increased symptoms. 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. Hx of BL PE earlier this preg (in February) - On Lovenox 100mg SubQ BID - Discussed option of holding vs continuing with the potential of not getting epidural when in labor. Pt consents to unmedicated delivery and plan to continue lovenox. Yeast vaginitis - s/p diflucan x 1 Routine PNC: - Growth q4w per MFM - Cont PNV Subjective: This AM, without any new complaints. She reports occasional contractions/cramping and overnight butreports sleeping well. Denies LOF, and denies VB. She reports normal movement. No other acuteissues. ROS: Constitutional: denies fevers Cardiovascular: denies chest pain Respiratory: denies dyspnea Gastrointestinal: denies abdominal pain, RUQ pain Neuro: denies headaches, vision changes OB: see HPI MSK: denies calf pain Objective: Vitals: Temp: [97.3 ??F (36.3 ??C)-98.6 ??F (37 ??C)] 98.3 ??F (36.8 ??C) Pulse: [91] 91 Resp: [16-18] 18 BP: (100-117)/(55-67) 111/62 SpO2: [95 %-98 %] 96 % Exam: General: no acute distress Cardiovascular: pulses intact, no peripheral edema Pulmonary: no respiratory difficulty, normal non-labored breathing Abdomen: gravid, soft, non-tender to palpation, no RUQ or fundal tenderness Cervix 3/80/-2 Extremities: BL lower extremities non-tender, no palpable cords Psych: mood appropriate FHT: tracings reactive [place]: irritable Labs/Imaging: Results for orders placed or performed during the hospital encounter of 07/15/23 (from the past 24 hour(s)) Wet preparation Specimen: Vagina; Swab Result Value Ref Range Trichomonas Absent Absent Yeast Present (A) Absent Clue Cells Absent Absent WBCs/high power field 2+ (A) None Rupture of Membranes by ROM Plus Result Value Ref Range Rupture of Membranes by ROM Plus Negative Negative, Invalid, Suggest Repeat Narrative It is recommended that the tests to detect rupture of the amniotic membranes should not be used without other clinical assessments to make clinical patient management decision. Platelet count Result Value Ref Range Platelet Count 170 150 - 450 10e3/uL Meds: Current Facility-Administered Medications: acetaminophen (TYLENOL) tablet 650 mg, 650 mg, Oral, Q4H PRN, Moira Roa MD enoxaparin ANTICOAGULANT (LOVENOX) injection 100 mg, 100 mg, Subcutaneous, Q12H, Barbie Rowe MD, 100 mg at 07/18/23 0806 hydrOXYzine HCl (ATARAX) tablet 50 mg, 50 mg, Oral, At Bedtime PRN, Moira Roa MD metoclopramide (REGLAN) injection 10 mg, 10 mg, Intravenous, Q6H PRN OR metoclopramide (REGLAN)tablet 10 mg, 10 mg, Oral, Q6H PRN, Moira Roa MD No Tdap Needed - Assessment: Patient does not need Tdap vaccine, , Does not apply, Continuous PRN, Moira Roa MD ondansetron (ZOFRAN ODT) ODT tab 4 mg, 4 mg, Oral, Q6H PRN OR ondansetron (ZOFRAN) injection 4 mg, 4 mg, Intravenous, Q6H PRN, Moira Roa MD Patient is already receiving anticoagulation with heparin, enoxaparin (LOVENOX), warfarin (COUMADIN) or other anticoagulant medication, , Does not apply, Continuous PRN, Moira Roa MD multivitamin w/iron per tablet 1 tablet, 1 tablet, Oral, Daily, Moira Roa MD prochlorperazine (COMPAZINE) injection 10 mg, 10 mg, Intravenous, Q6H PRN OR prochlorperazine (COMPAZINE) tablet 10 mg, 10 mg, Oral, Q6H PRN OR prochlorperazine (COMPAZINE) suppository 25 mg,25 mg, Rectal, Q12H PRN, Moira Roa MD senna-docusate (SENOKOT-S/PERICOLACE) 8.6-50 MG per tablet 1 tablet, 1 tablet, Oral, At Bedtime PRNOR senna-docusate (SENOKOT-S/PERICOLACE) 8.6-50 MG per tablet 2 tablet, 2 tablet, Oral, At Bedtime PRN, Moira Roa MD Jewelia Wagner, MD [facility] 07/17/2023, 8:03 AM * Moira Roa MD - 07/17/2023 7:52 PM CDT Antepartum progress notes S: called by RN, pt c/o some increased white, milky vaginal discharge earlier this afternoon. Continues to have irritating uterine contractions that aren't necessarily painful but definitely uncomfortable and persistent. +FM. No vaginal bleeding. O:BP 100/67 (Cuff Size: Adult Regular) Pulse 91 Temp 97.3 ??F (36.3 ??C) (Temporal) Resp 16 Ht 1.702 m (5' 7) Wt 75.3 kg (166 lb) LMP 11/28/2022 SpO2 96% BMI 26.00 kg/m?? Cervix check by RN /-2 Wet prep repeated- yeast present Amnisure collected- negative A/P; at 33w0d with labor/contractions. -s/p betamethasone x 2 - s/p nifedipine for tocolytic's - s/p NICU consult - GBS negative - now 4 cm. Discussed not indicated to augment labor and we are uncertain as to when she will progress. Continue to monitor. See pain management discussion below Hx of PE - lovenox has been held for >24 hours - large concern for delayed anticoagulation due to hx of bilateral PE - discussed the risks of restarting lovenox including limiting the ability for epidural and risk ofbleeding after delivery. Methods to control bleeding after delivery available and options for alternative pain management available. This was weighed with the likely outcome that she will again precipitously delivery when she declares to be in labor\ and the risk of recurrent PE/DVT. She consents to restarting her lovenox and consents to the potential that she can not have an epidural when in labor unless the Lovenox is held in time. - order to restart lovenox 100 mg subcutaneous bid given Yeast vaginitis - treated with diflucan 150 mg po x 1 now Moira Roa MD * Warner Pierce MD - 07/17/2023 8:03 AM CDT Antepartum Daily Progress Note Patient name: Gabrielle Mcmahon : 1995 Admit date: 07/15/2023 Acct: [id number] Assessment/Plan: Gabrielle Mcmahon is a at 33w0d who admitted for threatened labor. Today is HD#3. Pt transferred here from an outside facility and is unassigned to [facility]. contractions - No cervical change on last cvx check yesterday. Pt did have increased cramping overnight but no cvx recheck and this AM still crampy but stable. Offered repeat cvx check this AM but pt declines fornow. Pt aware will need rechecked before discharge home to ensure stable still. Has notable hx of rapid precipitous labor even w/ G1. - Nifedipine course last dose 1000 today to complete steroid window - s/p BMZ 07/14, 07/15 - UDip WNL, UCx pending. NG/CT neg - GBS pending - s/p NICU consult - Tracings reactive - Dispo: rec inpt monitoring at least one more day to ensure doesn't go into full PTL when Nifedipine wears off later today Hx of BL PE earlier this preg (in February) - On Lovenox 100mg SubQ BID - Held overnight for increased ctx, will hold this AM dose as well in case pt progresses with Nifedipine wearing off later today - See Heme note for further details - Ambulate, and SCDs when in bed Routine PNC: - Growth q4w if inpt long-term - Cont PNV Subjective: This AM, without any new complaints. She reports contractions/cramping and overnight was awoken a few times by them (no cvx recheck), denies LOF, and denies VB. She reports normal movement. No other acute issues, just worried about PTL since lives remote from hospital and hx of precipitous labor. ROS: Constitutional: denies fevers Cardiovascular: denies chest pain Respiratory: denies dyspnea Gastrointestinal: denies abdominal pain, RUQ pain Neuro: denies headaches, vision changes OB: see HPI MSK: denies calf pain Objective: Vitals: Temp: [97.6 ??F (36.4 ??C)-98.3 ??F (36.8 ??C)] 97.9 ??F (36.6 ??C) Pulse: [93] 93 Resp: [16-18] 17 BP: (100-124)/(58-66) 100/58 Exam: General: no acute distress Cardiovascular: pulses intact, no peripheral edema Pulmonary: no respiratory difficulty, normal non-labored breathing Abdomen: gravid, soft, non-tender to palpation, no RUQ or fundal tenderness Extremities: BL lower extremities non-tender, no palpable cords Psych: mood appropriate FHT: tracings reactive Labs/Imaging: No results found for this or any previous visit (from the past 24 hour(s)). Meds: Current Facility-Administered Medications: acetaminophen (TYLENOL) tablet 650 mg, 650 mg, Oral, Q4H PRN, Moira Roa MD enoxaparin ANTICOAGULANT (LOVENOX) injection 100 mg, 100 mg, Subcutaneous, Q12H, Barbie Rowe MD, 100 mg at 07/16/23 1149 hydrOXYzine HCl (ATARAX) tablet 50 mg, 50 mg, Oral, At Bedtime PRN, Moira Roa MD metoclopramide (REGLAN) injection 10 mg, 10 mg, Intravenous, Q6H PRN OR metoclopramide (REGLAN)tablet 10 mg, 10 mg, Oral, Q6H PRN, Moira Roa MD NIFEdipine (PROCARDIA) capsule 20 mg, 20 mg, Oral, Q6H, Moira Roa MD, 20 mg at 07/17/23 0352 No Tdap Needed - Assessment: Patient does not need Tdap vaccine, , Does not apply, Continuous PRN, Moira Roa MD ondansetron (ZOFRAN ODT) ODT tab 4 mg, 4 mg, Oral, Q6H PRN OR ondansetron (ZOFRAN) injection 4 mg, 4 mg, Intravenous, Q6H PRN, Moira Roa MD Patient is already receiving anticoagulation with heparin, enoxaparin (LOVENOX), warfarin (COUMADIN) or other anticoagulant medication, , Does not apply, Continuous PRN, Moira Roa MD multivitamin w/iron per tablet 1 tablet, 1 tablet, Oral, Daily, Moira Roa MD prochlorperazine (COMPAZINE) injection 10 mg, 10 mg, Intravenous, Q6H PRN OR prochlorperazine (COMPAZINE) tablet 10 mg, 10 mg, Oral, Q6H PRN OR prochlorperazine (COMPAZINE) suppository 25 mg,25 mg, Rectal, Q12H PRN, Moira Roa MD senna-docusate (SENOKOT-S/PERICOLACE) 8.6-50 MG per tablet 1 tablet, 1 tablet, Oral, At Bedtime PRNOR senna-docusate (SENOKOT-S/PERICOLACE) 8.6-50 MG per tablet 2 tablet, 2 tablet, Oral, At Bedtime PRN, Moira Roa MD David F. Clay, MD [facility] PA 07/17/2023, 8:03 AM * Crissy Akins RN - 07/17/2023 12:00 AM CDT Pts GBS was collected at [place] on 07/14, pt received results via email that GBS was negative. RN will update MD on results. * Barbie Rowe MD - 07/16/2023 9:17 AM CDT Intrapartum Progress Note: S: Pt doing okay, this morning has felt some lower abd cramping and low back pain, feeling similar to how she felt when she first presented to the hospital O: BP 115/56 (BP Location: Right arm, Patient Position: Sitting, Cuff Size: Adult Regular) Pulse 114 Temp 98.3 ??F (36.8 ??C) (Temporal) Resp 17 Ht 1.702 m (5' 7) Wt 75.3 kg (166 lb) LMP 11/28/2022 BMI 26.00 kg/m?? General: alert, awake in no acute distress SVE: 3/80/-3, posterior, soft, palpably vertex, ballotable A/P: Gabrielle Mcmahon at 32w5d transferred from outside facility for labor. contractions No cervical change on my exam this morning BMS second dose due at 1500 Oral nifedipine 20 mg q 6 hours. Continue for 24 hours after last dose of betamethasone Urine dip normal. Urine culture pending Urine GC pending GBS collected at [place] and pending. S/p NICU consult on 07/15/23 Hx of bilateral PE in this As outpatient, pt on lovenox 100 mg bid. Reordered for 1130am on 07/15 See hematology note for additional details. Bilateral SCD's Ambulate freely PNC If hospitalized assisted, plan growth ultrasound q 4 weeks. Continue daily PNV Plan NST q shift and continuous monitoring if pt complaints of more that 5 contractions in an hour. Dispo: continue inpatient management at least throughout steroid window Barbie Rowe MD [facility] 07/16/23 9:21 AM * Crissy Akins RN - 07/15/2023 9:00 PM CDT Nurse Practitioner at bedside to discuss plan if delivery occurs. documented in this encounter H&P Notes * Moira Roa MD - 07/15/2023 7:59 PM CDT Images from the original note were not included. July 15, 2023 Gabrielle Mcmahon [id number] OB Admit History & Physical CC: contractions HPI: at 32w5d who was a transfer from [facility]. She has had adequate care up to this point. She was seen at her routine visit today where she shared with her provider that she was having on and off contractions over the last couple of weeks but increased frequency and pressure over the last couple of days. She was evaluated on labor and delivery in [place] and contractions were noted on NST. Transvaginal CL was done and noted at 8 mm at rest and 5 mm withfundal pressure. No funneling. FFN was done and positive. Pt has a hx of previous delivery at 36 weeks, , precipitous delivery (admitted at 9 cm) Due to this history, provider called to transport to a facility that can support delivery. Pt received betamethasone at 1512 on 07/14. They started nifedipine with the first oral dose given at 1551 on 07/14. GBS was collected and she was given a single dose of IV ampicillin. Since arrival, the pt reports decreased frequency and intensity of contractions. Feels more tightening than pain. Denies lof, vb. +FM has been complicated by unprompted bilateral PE on 02/1623. She has been on twice daily therapeutic Lovenox 100 mg (based of anti-Xa level testing) and followed by hematology.Most recent encounter in [facility] on 06/1323. She has been followed by M for growth assessment. The last growth was on 06/20 at 18% with AC at 14%. They recommend growth every 4 weeks. Pt did have growth ultrasound on 07/13 in [place], vertex, EFW 27%, AC 30% Her OB history: OB History Para Term AB Living 2 1 0 1 0 1 SAB IAB Ectopic Multiple Live Births 0 0 0 0 1 # Outcome Date GA Lbr Dax/2nd Weight Sex Type Anes PTL Lv 2 Current 1 07/18/21 36w3d 3.26 kg (7 lb 3 oz) F Vag-Spont Y SHANNA Past Medical History: Diagnosis Date History of delivery Pulmonary embolism (H) Past Surgical History: Procedure Laterality Date WISDOM TOOTH EXTRACTION No current outpatient medications on file. Allergies: Patient has no known allergies. 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 CV: Negative PULMONARY: Negative MUSCULOSKELETAL: Negative PSYCH: Negative 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 Socioeconomic History Marital status: Spouse name: Not on file Number of children: Not on file Years of education: Not on file Highest education level: Not on file Occupational History Not on file Tobacco Use Smoking status: Never Passive exposure: Never Smokeless tobacco: Never Substance and Sexual Activity Alcohol use: Not Currently Drug use: Never Sexual activity: Yes Partners: Male Other Topics Concern Not on file 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 Not on file Social Determinants of Health Financial Resource Strain: Low Risk (02/21/2022) Received from [facility] Overall Financial Resource Strain (CARDIA) Difficulty of Paying Living Expenses: Not hard at all Food Insecurity: No Food Insecurity (02/21/2022) Received from [facility] Hunger Vital Sign Worried About Running Out of Food in the Last Year: Never true Ran Out of Food in the Last Year: Never true Transportation Needs: No Transportation Needs (02/21/2022) Received from [facility] PRAPARE - Transportation Lack of Transportation (Medical): No Lack of Transportation (Non-Medical): No Physical Activity: Insufficiently Active (02/21/2022) Received from [facility] Exercise Vital Sign Days of Exercise per Week: 3 days Minutes of Exercise per Session: 20 min Stress: Stress Concern Present (02/21/2022) Received from [facility] [employer] [place] [employer] - Occupational Stress Questionnaire Feeling of Stress : To some extent Social Connections: Unknown (08/26/2022) Received from [facility], [facility] Social Connections Frequency of Communication with Friends and Family: Not on file Interpersonal Safety: Not At Risk (02/21/2022) Received from [facility] Humiliation, Afraid, Rape, and Kick questionnaire Fear of Current or Ex-Partner: No Emotionally Abused: No Physically Abused: No Sexually Abused: No Housing Stability: Low Risk (02/21/2022) Received from [facility] Housing Stability Vital Sign Unable to Pay for Housing in the Last Year: No Number of Places Lived in the Last Year: 1 Unstable Housing in the Last Year: No History reviewed. No pertinent family history. 07/15/23 1904 UA with Microscopic reflex to Culture Collected: 07/15/23 1845 Final result Specimen: Urine, Clean Catch Color Urine Straw Protein Albumin Urine Negative mg/dL Appearance Urine Clear Urobilinogen Urine Normal mg/dL Glucose Urine Negative mg/dL Nitrite Urine Negative Bilirubin Urine Negative Leukocyte Esterase Urine Negative Ketones Urine 40 Abnormal mg/dL Mucus Urine Present Abnormal /LPF Specific [place] Urine 1.009 RBC Urine <1 /HPF Blood Urine Negative WBC Urine <1 /HPF pH Urine 8.0 High Squamous Epithelials Urine <1 /HPF Older Results important suggestion These results were recently updated but were collected or performed more than 30 days ago. Updated Order 07/15/231835 Hepatitis B Surface Antigen (External Result) Resulted: 01/26/23 0000 Final result Hepatitis B Surface Antigen (External) Negative 07/15/23 183 Rubella Antibody IgG (External Result) Resulted: 01/26/23 0000 Final result Rubella Antibody IgG (External) Immune 07/15/23 183 HIV-1 Antibody (External Result) Resulted: 01/26/23 0000 Final result HIV 1&2 Antibody (External) Negative 07/15/23 183 ABO & RH (External Result) Resulted: 01/26/23 0000 Final result ABO (External) O Rh (External) POSITIVE Vitals: BP 120/71 (BP Location: Right arm, Cuff Size: Adult Regular) Pulse 114 Temp 98.4 ??F (36.9 ??C) (Temporal) Resp 18 Ht 1.702 m (5' 7) Wt 75.3 kg (166 lb) LMP 11/28/2022 BMI 26.00 kg/m?? FHT 140, mod joyce, reactive [place]: irregular contractions Alert Awake in NAD, very comfortable when talking at bedside HEENT grossly normal Neck: no lymphadenopathy or thryoidomegaly Lungs clear Heart regular ABD gravid, no fundal tenderness Pelvic: no fluid noted, no blood noted Cervix is 2 cm / 80 % effaced at -3 station, soft, very posterior. Vertex ballotable. EXT: no edema or calf tenderness Neuro: intact Assessment/plan: Gabrielle Mcmahon at 32w5d transferred from outside facility for labor. contractions No cervical change on my exam which was over 4hours. Dicussed this is reassuring Beta x 1 given today. Next dose ordered tomorrow at 1500. Oral nifedipine 20 mg q 6 hours. Continue for 24 hours after last dose of betamethasone Urine dip normal. Urine culture pending Urine GC pending GBS collected at [place] and pending. Consider NICU consult tomorrow if applicable Hx of bilateral PE in this As outpatient, pt on lovenox 100 mg bid. Last dose at 0915 on 07/14. Will hold for tonight and if nolabor symptoms, plan to resume tomorrow morning. See hematology note for additional details. Bilateral SCD's Ambulate freely PNC If hospitalized assisted, plan growth ultrasound q 4 weeks. Continue daily PNV Plan NST q shift and continuous monitoring if pt complaints of more that 5 contractions in an hour. Dispo; pt admitted to labor and delivery. Anticipate stay through the steroid window at minimum. 40 minutes spent on face to face time, documentation review, and h and p. Moira Roa MD MD Dept of [employer] July 15, 2023 documented in this encounter Consult Notes * Alma Acosta, MACHINE INSPECTOR DRAG DOWN - 07/15/2023 8:57 PM CDTAssociated Order(s): NURSE PRACT IP CONSULT Images from the original note were not included. [facility] Neonatology Antepartum Counseling Consult: I was asked to provide antepartum counseling for Gabrielle Mcmahon at the request of Moira Roa MD secondary to labor. Ms. Gabrielle Mcmahon is currently 32 weeks/ 5 days gestation and has a history significant for: Patient Active Problem List Diagnosis Absence seizure (H) History of delivery Hyperemesis Hemorrhoids Low back pain Headache Fatigue Dysuria Blurring of visual image Bilateral leg pain Abdominal bloating Myoclonic jerking premature rupture of membranes, delivered, current hospitalization Pulmonary embolism (H) Upper motor neuron lesion (H) Vaginal itching labor Betamethasone was administered on 07/15/23. Ms. Gabrielle Mcmahon, accompanied by her partner and parents, was counseled on the expected hospital course, potential risks, and outcomes associated with an infant born at this gestation. The counseling included: initial delivery room stabilization, respiratory course, lung development, nutrition, growth and development, and assisted outcomes. I also explained the basic criteria as to why infants born <35 weeks gestation require NICU careand criteria for discharge. The patient had no remaining questions but was encouraged to contact the NICU via their caregivers should any arise. Please feel free to call and thank you for involving the NICU team in the care of your patient. Floor Time (min): 5 Face to Face Time (min): 20 Total Time (minutes): 25 More than 50% of my time was spent in direct, face to face, antepartum counseling with the above patient. Mother assented to routine medications after ; Erythromycin, Vitamin K injection, and Hepatitis B vaccine. She also assented to donor breastmilk. ABRIL Terrell-KARLEE 07/15/2023 8:59 PM documented in this encounter Miscellaneous Notes * Plan of Care - Donita Dye RN - 07/18/2023 8:57 AM CDT Goal Outcome Evaluation: Pt doing well. VSS. Pt feeling good. Still crampy but feels the same as she has over the last few days. Hopefully some of that feeling will will diminish now after being treated for a yeast infection. No blood or fluid seen. Dr. Roa felt with her SVE this am that there is minimal change from herSVE on admission. Fht's reactive and reassuring. Plan of crae made between Dr. Roa and Pt this am is that pt will discharge home. Discharge instructions given. Pt given clinic jewels number and doctors names if she comes back to [facility]. * Provider Notification - Crissy Akins RN - 07/18/2023 7:24 AM CDT 07/18/23 0710 Provider Notification Provider Name/Title Dr. Roa Method of Notification At Bedside MD at bedside. SVE 3/-90%/-2. MD discussed option for discharge today with plan for close follow-up care. Pt and discussing options. * Plan of Care - Crissy Akins RN - 07/18/2023 5:41 AM CDT Goal Outcome Evaluation: Pt rested well overnight. VSS. Denies leaking of fluid and vaginal bleeding. Pt continues to rate cramps/contraction pain a 2 out of 10. Evening dose of Lovenox was given. * Provider Notification - Crissy Akins RN - 07/17/2023 8:05 PM CDT 07/17/231926 Provider Notification Provider Name/Title Dr. Roa Method of Notification Electronic Page MD notified of negative ROM plus & abnormal wet prep. Plan is to treat abnormal wet prep with diflucan. * Plan of Care - Donita Dye RN - 07/17/2023 7:15 AM CDT Goal Outcome Evaluation: Took over patient care at 0715. Report received from Crissy Dumont RN. At 0810 Dr. Pierce here to round on pt. Assessment done. Plan is to hold this am lovenox dose again to see if when 1000 last dose of nifedipine wears off labor progresses. This will be around [address] [place] Will update Dr. Roa later this camron to see if next dose of lovenox again should be held. At 1003 Last nifedipine dose given. Dr. Roa around at this time and updated on maternal status and fht's. GBS result came back negativetoday. Result in chart. At 1325 pt off monitor for awhile to visit with daughter. She also informedme that when wiping had some clear discharge which is not normal for her. She also showered during this time. At 1527 pt back on monitor and going to rest. Pt stated noticed more clear discharge whenwiping before taking a shower. Pt has been consistently rating cramps/contractions at 2/10 which have been the same really since admission. Pt feels like baby has dropped the last day and FHT's tracing low. Will continue to monitor. At 1826 Dr. Roa was called and given update on maternal status and fht's. Informed about occassional mucus when wiping. Orders received. At 1900 was called and updated on SVE findings. Dr. Roa given [facility] pager number to call and make a plan about future lovenox doses. At 1917 Dr. Roa called back and asked to talk with pt. She was transferred to pt room. During this time Dr. Roa was informed about abnormal wet prep results. Pt and Dr. Roa made plan to continue with lovenox scheduled doses at this time. Report given to Crissy Dumont RN * Plan of Care - Crissy Akins RN - 07/17/2023 6:27 AM CDT Goal Outcome Evaluation: Pt rested comfortably overnight. Held evening lovenox dose. Pt continuing to feel crampy and rate pain a 2/10. VSS. Denies leaking of fluid and vaginal bleeding. * Provider Notification - Crissy Akins RN - 07/17/2023 3:00 AM CDT 07/17/23 0252 Provider Notification Provider Name/Title Dr. Rowe Method of Notification In Department Notification Reason Status Update MD updated that pt has been resting comfortably. Pt continues to feel sporadic contractions. MD aware that pt received a negative GBS result via email notification from [facility]. * Provider Notification - Crissy Akins RN - 07/16/2023 10:30 PM CDT 07/16/232229 Provider Notification Provider Name/Title Dr. Rowe Method of Notification Phone Request Evaluate - Remote Notification Reason Status Update MD notified pt continuing to feel cramping and lower pelvic pressure. Pt had 4 contractions over the last hour, palpating mild. Plan is to hold evening lovenox & continue to monitor. Per MD if ptbegins to contract more and become more uncomfortable, plan will be to recheck cervix. * Plan of Care - Donita Dye RN - 07/16/2023 7:30 PM CDT Goal Outcome Evaluation: Pt had a good day. VSS. Pain consistent throughout day at 2. Pt feels crampy and lower back pain. This is the same feeling that she has felt since yesterday. Ay 0830 Dr. Rowe at bedside and didSVE. Pt /-3. No bleeding or fluid seen. UP and showered today. Walked in halls. Eggcrate added to bed. Lovenox given this afternoon. Will call and update prior to next lovenox dose. 2nd beta given today. At 1900 Dr. Rowe updated about maternal status and fht's and plan made for next nurse tocall her at 2230 to make further plan of care. Report given to Crissy Osorio RN at 191. * Plan of Care - Crissy Akins RN - 07/16/2023 6:14 AM CDT Pt rested well overnight. VSS. Denies vaginal bleeding & leaking of fluid. Pt continues to feelsporadic contractions. Ctxs palpating mild. Plan is to continue with PO nifedipine & pt will receive 2nd dose of beta today. Goal Outcome Evaluation: Problem: Labor Goal: Delayed Delivery 07/16/2023 0613 by Crissy Akins RN Outcome: Progressing 07/16/2023 0050 by Crissy Akins RN Outcome: Progressing * Plan of Care - Crissy Akins RN - 07/15/2023 10:00 PM CDT Pt resting comfortably. Pt reports sporadic mild cramping. Denies leaking of fluid or bleeding. Plan is to continue to monitor contractions, continue with PO nifedipine, and receive 2nd dose of Beta tomorrow 07/15. Goal Outcome Evaluation: Problem: Labor Goal: Delayed Delivery Outcome: Progressing Problem: Adult Inpatient Plan of Care Goal: Absence of Hospital-Acquired Illness or Injury Intervention: Prevent and Manage VTE (Venous Thromboembolism) Risk Recent Flowsheet Documentation Taken 07/15/20230 by Crissy Akins RN VTE Prevention/Management: SCDs (sequential compression devices) on * Plan of Care - Donita Dye RN - 07/15/2023 5:35 PM CDT Goal Outcome Evaluation: Pt Arrived by ambulance at 1735 from being transferred from [facility]. Report received from EMS. Dr. Kumari is assuming pt's care. Pt is a pt that is 32 5/7 weeks . Pt's EDC is 09/03. Pt was seen today at her clinic and informed them about her having cx's off and on over the last week that last evening and today became more frequent but still irregular. Pt stated anywhere from 5-15 minutes apart. It feels crampy and slight pelvic pressure. At [facility] she received 2 gr ampicillin at 1515. 30mg of Niphedipine at 1551, 1st dose of Beta at 1514 and an LR bolus of 1000cc [id number]. Cx seemed to space out after bolus. Pt has a hx of bilateral PE in . No diagnosis givenbut taking 100mg of lovenox BID and followed by Hem. She also had a wet prep done today 07/14 at ( [facility] labor and delivery) and negative, Amniosure which was negative. FFN done and positive. US done as well for cervical length and 8mm 2, 80-3. GBS was colleted at [facility] as well 07/14. Once pt here UA/UC sent. At 1845 Dr. Roa here assessing pt and SVE done. NO change since last SVE which was [address] Roa placing orders. Report given to Crissy Osorio RN to take over cares at 1910. documented in this encounter Plan of Treatment Not on file documented as of this encounter Procedures Procedure Name Priority Date/Time Associated Diagnosis Comments PLATELET COUNT Routine 07/18/2023 8:14 AM CDT RUPTURE OF MEMBRANES BY ROM PLUS STAT 07/17/2023 6:52 PM CDT WET PREPARATION STAT 07/17/2023 6:52 PM CDT CBC WITH PLATELETS AND DIFFERENTIAL Routine 07/15/2023 9:31 PM CDT TYPE AND SCREEN, ADULT Timed 9:31 PM CDT CBC WITH PLATELETS & DIFFERENTIAL Routine 07/15/2023 9:31 PM CDT CREATININE Timed 07/15/2023 9:31 PM CDT ABO/RH TYPE AND SCREEN Timed 9:31 PM CDT ROUTINE UA WITH MICROSCOPIC REFLEX TO CULTURE Routine 07/15/2023 6:45 PM CDT CHLAMYDIA TRACHOMATIS/NEISSERIA GONORRHOEAE BY PCR STAT 07/15/2023 6:23 PM CDT GROUP B STREPTOCOCCUS (EXTERNAL RESULT) Routine 07/15/2023 HEPATITIS B SURFACE ANTIGEN (EXTERNAL RESULT) Routine 01/26/2023 HIV 1&2 ANTIBODY (EXTERNAL RESULT) Routine 01/26/2023 RUBELLA ANTIBODY IGG (EXTERNAL RESULT) Routine 01/26/2023 ABO & RH (EXTERNAL RESULT) Routine 01/26/2023 documented in this encounter Results * Platelet count (07/18/2023 8:14 AM CDT) Pathologist [facility] Platelet Count 170 150 - 450 10e3/uL 07/18/2023 8:32 AM CDT LABORATORY Blood STRUCTURE OF RIGHT UPPER LIMB / Unknown Venipuncture / Unknown 07/18/2023 8:14 AM CDT 07/18/2023 8:27 AM CDT Moira Roa MD LAB - BLOOD ORDERABL ES Performing Organization Address [facility]/ZIP Co de Phone Number [facility] [address] 1[address] floor, [address] [place] [address], [facility] [phone] * Rupture of Membranes by ROM Plus [...] BODY FLUIDS OR DERABLES Performing Organization Address [facility] Co de Phone Number [facility] [address] 1[address], [address] [place] [address], [facility] [phone] * (ABNORMAL) Wet preparation (07/17/2023 6:52 PM [...] MD LAB - MICRO GENERAL ORDERABLES LABORATORY [facility] [address], [address] [place] [address], [facility] [phone] * Adult Type and Screen (07/15/2023 9:31 PM CDT) Pathologist [facility] ABO/RH(D) O POS 07/15/2023 7:26 PM CDT BLOOD BANK Antibody Screen Negative Negative 07/15/2023 7:26 PM CDT BLOOD BANK SPECIMEN EXPIRATION DATE [id number] 07/15/2023 7:26 PM CDT BLOOD BANK Blood STRUCTURE OF RIGHT UPPER LIMB / Unknown Venipuncture / Unknown 07/15/2023 9:31 PM CDT 07/15/2023 9:34 PM CDT Moira Roa MD LAB - BLOOD BANK MONISHA T ORDER Performing Organization Address City/[facility]/ZIP Co de Phone Number BLOOD BANK [address] [place] [address], [facility] * (ABNORMAL) CBC with platelets and differential (07/15/2023 9:31 PM CDT) Pathologist [facility] WBC Count 10.6 4.0 - 11.0 10e3/uL [...] MD LAB - BLOOD ORDERABL ES LABORATORY [facility] [address] 1[address], [address] [place] [address], [facility] [phone] * (ABNORMAL) Creatinine (07/15/2023 9:31 PM CDT) Creatinine 0.47(L) 0.51 - 0.95 mg/dL 07/15/2023 9:55 PM CDT LABORATORY GFR Estimate >90 >60 mL/min/1.7 3m2 07/15/2023 9:55 PM CDT LABORATORY Blood STRUCTURE OF RIGHT UPPER LIMB / Unknown Venipuncture / Unknown 07/15/2023 9:31 PM CDT 07/15/2023 9:34 PM CDT Moira Roa MD LAB - BLOOD ORDERABL ES LABORATORY [facility] [address], [address] [place] [address], [facility] [phone] * (ABNORMAL) UA with Microscopic reflex to Culture (07/15/2023 6:45 PM CDT) Color Urine Straw Colorless, Straw, Light Yellow, Yellow 07/15/2023 7:04 PM CDT LABORATORY Appearance Urine Clear Clear 07/15/19 7:04 PM CDT LABORATORY Glucose Urine Negative Negative mg/dL 07/15/2023 7:04 PM CDT LABORATORY Bilirubin Urine Negative Negative 7:04 PM CDT LABORATORY Ketones Urine 40(A) Negative mg/dL 07/15/2023 7:04 PM CDT LABORATORY Specific [place] Urine 1.009 1.003 - 1.035 07/15/2023 7:04 [...] MD LAB - URINE ORDERABL ES LABORATORY [facility] [address] 1[address], [address] [place] [address], [facility] [phone] * Chlamydia trachomatis/Neisseria gonorrhoeae by PCR (07/15/2023 6:23 PM CDT) [facility] Chlamydia Trachomatis Negative Negative 07/16/2023 12:02 PM CDT [facility] Comment: Negative for C. trachomatis rRNA by tufting supervisor mediated amplification. A negative result by tufting supervisor mediated amplification does not preclude the presence of infection because results are dependent on proper and adequate collection, absence of inhibitors and sufficient rRNA to be detected. Neisseria gonorrhoeae Negative Negative 07/16/2023 12:02 PM CDT [facility] Comment:Negative for N. gono rrhoeae rRNA by tufting supervisor mediated amplification. A negative result by tufting supervisor mediated amplification does not preclude the presence of C. trachomatis infection because results are dependent on proper and adequate collection, absence of inhibitors and sufficient rRNA to be detected. Urine VOIDED URINE SPECIMEN / Unknown Non-blood Collection / Unknown 07/15/2023 6:23 PM CDT 07/15/2023 6:30 PM CDT Moira Roa MD LAB - MICRO GENERAL ORDERABLES Performing Organization Address [facility]/ZIP Co de Phone Number [facility]. Diseases [facility] Lab [address] [facility] [place] [place] [address] * Group B Streptococcus (External Result) (07/15/2023) Group B Streptococcus (External) Negative Negative EXTERNAL LAB Patient Reported LAB - HIM EXTERNAL R ESULT Performing Organization Address [facility]/ZIP Co de Phone Number EXTERNAL LAB External Lab * ABO & RH (External Result) (01/26/2023) ABO (External) O EXTERNAL LAB Rh (External) POSITIVE EXTERNAL LAB Patient Reported LAB - HIM EXTERNAL R ESULT Performing Organization Address [facility] Co de Phone Number EXTERNAL LAB External Lab * HIV-1 Antibody (External Result) (01/26/2023) HIV 1&2 Antibody (External) Negative Nonreactive EXTERNAL LAB Patient Reported LAB - HIM EXTERNAL R ESULT Performing Organization Address [facility]/ZIP Co de Phone Number EXTERNAL LAB External Lab * Rubella Antibody IgG (External Result) (01/26/2023) Rubella Antibody IgG (External) Immune Nonreactive EXTERNAL LAB Patient Reported LAB - HIM EXTERNAL R ESULT Performing Organization Address [facility] Co de Phone Number EXTERNAL LAB External Lab * Hepatitis B Surface Antigen (External Result) (01/26/2023) Hepatitis B Surface Antigen (External) Negative Nonreactive EXTERNAL LAB Patient Reported LAB - HIM EXTERNAL R ESULT Performing Organization Address [facility] Co de Phone Number EXTERNAL LAB External Lab documented in this encounter Visit Diagnoses Diagnosis labor Early onset of delivery, unspecified as to episode of care documented in this encounter Administered Medications Inactive Administered Medications - up to 3 most recent administrations Medication Order MAR Action Action Date Dose Rate Site acetaminophen (TYLENOL) tablet 650 mg 650 mg, Oral, EVERY 4 HOURS PRN, mild pain, fever, greater than or equal to 38?? C /100.4?? F (oral) or 38.5?? C/ 101.4?? F (core); headaches., Starting on Tue07/15/23 at 1922, Maximum acetaminophen dose from all sources = 75 mg/kg/day not to exceed 4 grams/day., Antepartum betamethasone acet & sod phos (CELESTONE) injection 12 mg 12 mg, Intramuscular, ONCE, On 07/16/23 at 1500, For 1 dose, Antepartum $Given 07/16/2023 3:19 PM CDT 12 mg enoxaparin ANTICOAGULANT (LOVENOX) injection 100 mg 100 mg, Subcutaneous, EVERY 12 HOURS, First dose on 07/16/23 at 1200 $Given 07/18/2023 8:06 AM CDT 100 mg $Given 07/17/2023 7:37 PM CDT 100 mg Ri ght Thigh $Given 07/16/2023 11:49 AM CDT 100 mg fluconazole (DIFLUCAN) tablet 150 mg Routine, 150 mg, Oral, ONCE, On 07/17/23 at 2000, For 1 dose, Indications: Candidiasis $Given 07/17/2023 8:14 PM CDT 150 mg hydrOXYzine HCl (ATARAX) tablet 50 mg 50 mg, Oral, AT BEDTIME PRN, itching, sleep, Starting on Tue07/15/23 at 1922, Antepartum metoclopramide (REGLAN) injection 10 mg 10 mg, Intravenous, Administer over 2 Minutes, EVERY 6 HOURS PRN, nausea, vomiting, Starting on Tue07/15/23 at 1916, This is Step 1 of OB nausea and vomiting management. If nausea is not resolved in 30 minutes, go to Step 2 (Zofran). Avoid use if patient has full bowel obstruction or perforation. Irritant., Antepartum metoclopramide (REGLAN) tablet 10 mg 10 mg, Oral, EVERY 6 HOURS PRN, nausea and vomiting, Starting on Tue07/15/23 at 1916, This is Step 1 of OB nausea and vomiting management. If nausea is not resolved in 30 minutes, go to Step 2 (Zofran) Avoid use if patient has full bowel obstruction or perforation., Antepartum NIFEdipine (PROCARDIA) capsule 20 mg 20 mg, Oral, EVERY 6 HOURS, First dose on Tue07/15/23 at 2200, Max duration: 48 hours *NURSE TO SCHEDULE FIRST DOSE to begin 6 hours after any prior doses given to suppress uterine activity.* Maximum NIFEdipine dose = 160 mg/ 24 hours. HOLD if Systolic Blood Pressure less than 90 mmHg and/or Diastolic Blood Pressure less than 50 mmHg., Antepartum $Given 07/17/2023 10:03 AM CDT 20 mg $Given 07/17/2023 3:52 AM CDT 20 mg $Given 07/16/2023 9:57 PM CDT 20 mg No Tdap Needed - Assessment: Patient does not need Tdap vaccine CONTINUOUS PRN, Starting on Tue07/15/23 at 1925, Until Tue07/18/23 at 1350, Assessment: Patient does not need Tdap immunization, Antepartum ondansetron (ZOFRAN ODT) ODT tab 4 mg 4 mg, Oral, EVERY 6 HOURS PRN, nausea, vomiting, Starting on Tue07/15/23 at 1917, This is Step 2 of OB nausea and vomiting management. Give If nausea not resolved in 30 minutes after giving metoclopramide (REGLAN). If nausea is not resolved in 15 minutes, go to Step 3 (Compazine). With dry hands, peel back foil backing and gently remove tablet. Do not push oral disintegrating tablet through foil backing. Administer immediately on tongue and oral disintegrating tablet dissolves in seconds, then swallow with saliva. Liquid not required., Antepartum ondansetron (ZOFRAN) injection 4 mg 4 mg, Intravenous, EVERY 6 HOURS PRN, nausea, vomiting, Administer over 2-5 Minutes, Starting on Tue07/15/23 at 1917, This is Step 2 of OB nausea and vomiting management. Give if nausea not resolved 30 minutes after giving metoclopramide (REGLAN). If nausea is not resolved in 15 minutes, go to Step 3 (Compazine). Irritant., Antepartum Patient is already receiving anticoagulation with heparin, enoxaparin (LOVENOX), warfarin (COUMADIN) or other anticoagulant medication CONTINUOUS PRN, Starting on Tue07/15/23 at 1922, Until Tue07/18/23 at 1350, Antepartum multivitamin w/iron per tablet 1 tablet 1 tablet, Oral, DAILY, First dose on Tue07/15/23 at 1930, Antepartum prochlorperazine (COMPAZINE) injection 10 mg 10 mg, Intravenous, EVERY 6 HOURS PRN, nausea, vomiting, Administer over 2 Minutes, Starting on Tue07/15/23 at 1917, This is Step 3 of OB nausea and vomiting management. Give if nausea not resolved 15 minutes after giving ondansetron (ZOFRAN). If nausea is not resolved in 30 minutes, notify provider., Antepartum prochlorperazine (COMPAZINE) suppository 25 mg 25 mg, Rectal, EVERY 12 HOURS PRN, nausea, vomiting, Starting on Tue07/15/23 at 1917, This is Step 3 of OB nausea and vomiting management. Give if nausea not resolved 15 minutes after giving ondansetron (ZOFRAN). If nausea is not resolved in 30 minutes, notify provider., Antepartum prochlorperazine (COMPAZINE) tablet 10 mg 10 mg, Oral, EVERY 6 HOURS PRN, nausea, vomiting, Starting on Tue07/15/23 at 1917, This is Step 3 of OB nausea and vomiting management. Give if nausea not resolved 15 minutes after giving ondansetron (ZOFRAN). If nausea is not resolved in 30 minutes, notify provider., Antepartum senna-docusate (SENOKOT-S/PERICOLACE) 8.6-50 MG per tablet 1 tablet 1 tablet, Oral, AT BEDTIME PRN, constipation, Starting on Tue07/15/23 at 1922, If no bowel movement in 24 hours, increase to 2 tablets by mouth. Hold for loose stools., Antepartum senna-docusate (SENOKOT-S/PERICOLACE) 8.6-50 MG per tablet 2 tablet 2 tablet, Oral, AT BEDTIME PRN, constipation, Starting on Tue07/15/23 at 1922, Hold for loose stools., Antepartum documented in this encounter Active and Recently Administered Medications Times are shown in CDT. Scheduled Medication Order 07/16/2023 07/17/2023 07/18/2023 betamethasone acet & sod phos (CELESTONE) injection 12 mg (COMPLETED) 12 mg, Intramuscular, ONCE, On 07/16/23 at 1500, For 1 dose, Antepartum 1519 ($Given - Provider: Donita Dye RN) enoxaparin ANTICOAGULANT (LOVENOX) injection 100 mg 100 mg, Subcutaneous, EVERY 12 HOURS, First dose on Tue07/16/23 at 1200 1149 ($Given - Provider: Donita Dye RN) 0027 (Not Given - Provider: Crissy Akins RN - Reason: Order to hold this dose)1200 (Hold - Provider: Donita Dye RN - Reason: Med discontinued by Provider)1937 ($Given - Provider: Crissy Akins RN) 0806 ($Given - Provider: Donita Dye RN) fluconazole (DIFLUCAN) tablet 150 mg (COMPLETED) Routine, 150 mg, Oral, ONCE, On Tue07/17/23 at 2000, For 1 dose, Indications: Candidiasis 2013 ($Given - Provider: Crissy Akins RN) NIFEdipine (PROCARDIA) capsule 20 mg (CANCELED) 20 mg, Oral, EVERY 6 HOURS, First dose on Tue07/15/23 at 2200, Max duration: 48 hours *NURSE TO SCHEDULE FIRST DOSE to begin 6 hours after any prior doses given to suppress uterine activity.* Maximum NIFEdipine dose = 160 mg/ 24 hours. HOLD if Systolic Blood Pressure less than 90 mmHg and/or Diastolic Blood Pressure less than 50 mmHg., Antepartum 0405 ($Given - Provider: Crissy Akins RN)1005 ($Given - Provider: Donita Dye RN)1552 ($Given - Provider: Donita Dye RN)2157 ($Given - Provider: Crissy Akins RN) 0352 ($Given - Provider: Crissy Akins RN)1003 ($Given - Provider: Donita Dye RN) multivitamin w/iron per tablet 1 tablet 1 tablet, Oral, DAILY, First dose on Tue07/15/23 at 1930, Antepartum 1006 (Not Given - Provider: Donita Dye RN - Reason: Patient/family refused) 1005 (Not Given - Provider: Donita Dye RN - Reason: Patient/family refused) 0807 (Not Given - Provider: Donita Dye RN - Reason: Patient/family refused) PRN Medication Order 07/16/2023 07/17/2023 07/18/2023 acetaminophen (TYLENOL) tablet 650 mg 650 mg, Oral, EVERY 4 HOURS PRN, mild pain, fever, greater than or equal to 38?? C /100.4?? F (oral) or 38.5?? C/ 101.4?? F (core); headaches., Starting on Tue07/15/23 at 1922, Maximum acetaminophen dose from all sources = 75 mg/kg/day not to exceed 4 grams/day., Antepartum hydrOXYzine HCl (ATARAX) tablet 50 mg 50 mg, Oral, AT BEDTIME PRN, itching, sleep, Starting on Tue07/15/23 at 192, Antepartum metoclopramide (REGLAN) injection 10 mg(Linked Group 1) 10 mg, Intravenous, Administer over 2 Minutes, EVERY 6 HOURS PRN, nausea, vomiting, Starting on Tue07/15/23 at 1916, This is Step 1 of OB nausea and vomiting management. If nausea is not resolved in 30 minutes, go to Step 2 (Zofran). Avoid use if patient has full bowel obstruction or perforation. Irritant., Antepartum metoclopramide (REGLAN) tablet 10 mg(Linked Group 1) 10 mg, Oral, EVERY 6 HOURS PRN, nausea and vomiting, Starting on Tue07/15/23 at 191, This is Step 1 of OB nausea and vomiting management. If nausea is not resolved in 30 minutes, go to Step 2 (Zofran) Avoid use if patient has full bowel obstruction or perforation., Antepartum No Tdap Needed - Assessment: Patient does not need Tdap vaccine CONTINUOUS PRN, Starting on Tue07/15/23 at 1925, Until Tue07/18/23 at 1350, Assessment: Patient does not need Tdap immunization, Antepartum ondansetron (ZOFRAN ODT) ODT tab 4 mg(Linked Group 2) 4 mg, Oral, EVERY 6 HOURS PRN, nausea, vomiting, Starting on Tue07/15/23 at 1917, This is Step 2 of OB nausea and vomiting management. Give If nausea not resolved in 30 minutes after giving metoclopramide (REGLAN). If nausea is not resolved in 15 minutes, go to Step 3 (Compazine). With dry hands, peel back foil backing and gently remove tablet. Do not push oral disintegrating tablet through foil backing. Administer immediately on tongue and oral disintegrating tablet dissolves in seconds, then swallow with saliva. Liquid not required., Antepartum ondansetron (ZOFRAN) injection 4 mg(Linked Group 2) 4 mg, Intravenous, EVERY 6 HOURS PRN, nausea, vomiting, Administer over 2-5 Minutes, Starting on Tue07/15/23 at 1917, This is Step 2 of OB nausea and vomiting management. Give if nausea not resolved 30 minutes after giving metoclopramide (REGLAN). If nausea is not resolved in 15 minutes, go to Step 3 (Compazine). Irritant., Antepartum Patient is already receiving anticoagulation with heparin, enoxaparin (LOVENOX), warfarin (COUMADIN) or other anticoagulant medication CONTINUOUS PRN, Starting on Tue07/15/23 at 1922, Until Tue07/18/23 at 1350, Antepartum prochlorperazine (COMPAZINE) injection 10 mg(Linked Group 3) 10 mg, Intravenous, EVERY 6 HOURS PRN, nausea, vomiting, Administer over 2 Minutes, Starting on Tue07/15/23 at 1917, This is Step 3 of OB nausea and vomiting management. Give if nausea not resolved 15 minutes after giving ondansetron (ZOFRAN). If nausea is not resolved in 30 minutes, notify provider., Antepartum prochlorperazine (COMPAZINE) suppository 25 mg(Linked Group 3) 25 mg, Rectal, EVERY 12 HOURS PRN, nausea, vomiting, Starting on Tue07/15/23 at 1917, This is Step 3 of OB nausea and vomiting management. Give if nausea not resolved 15 minutes after giving ondansetron (ZOFRAN). If nausea is not resolved in 30 minutes, notify provider., Antepartum prochlorperazine (COMPAZINE) tablet 10 mg(Linked Group 3) 10 mg, Oral, EVERY 6 HOURS PRN, nausea, vomiting, Starting on Tue07/15/23 at 1917, This is Step 3 of OB nausea and vomiting management. Give if nausea not resolved 15 minutes after giving ondansetron (ZOFRAN). If nausea is not resolved in 30 minutes, notify provider., Antepartum senna-docusate (SENOKOT-S/PERICOLACE) 8.6-50 MG per tablet 1 tablet(Linked Group 4) 1 tablet, Oral, AT BEDTIME PRN, constipation, Starting on Tue07/15/23 at 192, If no bowel movement in 24 hours, increase to 2 tablets by mouth. Hold for loose stools., Antepartum senna-docusate (SENOKOT-S/PERICOLACE) 8.6-50 MG per tablet 2 tablet(Linked Group 4) 2 tablet, Oral, AT BEDTIME PRN, constipation, Starting on Tue07/15/23 at 1921, Hold for loose stools., Antepartum Linked Groups Order Group 1: metoclopramide (REGLAN) injection 10 mgJump to med 10 mg, Intravenous, Administer over 2 Minutes, EVERY 6 HOURS PRN, nausea, vomiting, Starting on Tue07/15/23 at 1916, This is Step 1 of OB nausea and vomiting management. If nausea is not resolved in 30 minutes, go to Step 2 (Zofran). Avoid use if patient has full bowel obstruction or perforation. Irritant., Antepartum Or metoclopramide (REGLAN) tablet 10 mgJump to med 10 mg, Oral, EVERY 6 HOURS PRN, nausea and vomiting, Starting on Tue07/15/23 at 1916, This is Step 1 of OB nausea and vomiting management. If nausea is not resolved in 30 minutes, go to Step 2 (Zofran) Avoid use if patient has full bowel obstruction or perforation., Antepartum Group 2: ondansetron (ZOFRAN ODT) ODT tab 4 mgJump to med 4 mg, Oral, EVERY 6 HOURS PRN, nausea, vomiting, Starting on Tue07/15/23 at 1916, This is Step 2 of OB nausea and vomiting management. Give If nausea not resolved in 30 minutes after giving metoclopramide (REGLAN). If nausea is not resolved in 15 minutes, go to Step 3 (Compazine). With dry hands, peel back foil backing and gently remove tablet. Do not push oral disintegrating tablet through foil backing. Administer immediately on tongue and oral disintegrating tablet dissolves in seconds, then swallow with saliva. Liquid not required., Antepartum Or ondansetron (ZOFRAN) injection 4 mgJump to med 4 mg, Intravenous, EVERY 6 HOURS PRN, nausea, vomiting, Administer over 2-5 Minutes, Starting on Tue07/15/23 at 1916, This is Step 2 of OB nausea and vomiting management. Give if nausea not resolved 30 minutes after giving metoclopramide (REGLAN). If nausea is not resolved in 15 minutes, go to Step 3 (Compazine). Irritant., Antepartum Group 3: prochlorperazine (COMPAZINE) injection 10 mgJump to med 10 mg, Intravenous, EVERY 6 HOURS PRN, nausea, vomiting, Administer over 2 Minutes, Starting on Tue07/15/23 at 1917, This is Step 3 of OB nausea and vomiting management. Give if nausea not resolved 15 minutes after giving ondansetron (ZOFRAN). If nausea is not resolved in 30 minutes, notify provider., Antepartum Or prochlorperazine (COMPAZINE) tablet 10 mgJump to med 10 mg, Oral, EVERY 6 HOURS PRN, nausea, vomiting, Starting on Tue07/15/23 at 1917, This is Step 3 of OB nausea and vomiting management. Give if nausea not resolved 15 minutes after giving ondansetron (ZOFRAN). If nausea is not resolved in 30 minutes, notify provider., Antepartum Or prochlorperazine (COMPAZINE) suppository 25 mgJump to med 25 mg, Rectal, EVERY 12 HOURS PRN, nausea, vomiting, Starting on Tue07/15/23 at 1917, This is Step 3 of OB nausea and vomiting management. Give if nausea not resolved 15 minutes after giving ondansetron (ZOFRAN). If nausea is not resolved in 30 minutes, notify provider., Antepartum Group 4: senna-docusate (SENOKOT-S/PERICOLACE) 8.6-50 MG per tablet 1 tabletJump to med 1 tablet, Oral, AT BEDTIME PRN, constipation, Starting on Tue07/15/23 at 1922, If no bowel movement in 24 hours, increase to 2 tablets by mouth. Hold for loose stools., Antepartum Or senna-docusate (SENOKOT-S/PERICOLACE) 8.6-50 MG per tablet 2 tabletJump to med 2 tablet, Oral, AT BEDTIME PRN, constipation, Starting on Tue07/15/23 at 1922, Hold for loose stools., Antepartum documented in this encounter Care Teams Renovation Plant Supervisor Relationship Specialty Start Date End Date No Ref-Primary, Physician PCP - General 03/31/23 Oleg Aparicio, JULIAC [address] [facility] [address] [place], [place] [id number] Assigned Cancer Care Provider 05/06/23 Ana Oreilly MD [address] [facility] [address] [place] [address] Assigned OBGYN Provider 05/06/23 documented as of this encounter
--- OUTSIDE RECORDS SUMMARY | 2023-07-31 17:01 | XMS_ITS | Encounter Summary ---
Author Organization [place] Address [address] [place] [address] Care Team Providers Care Photogeologist Name Role Phone No Ref-Primary, Physician Primary Care Provider Oleg Aparicio PA-C Unavailable [phone] Ana Oreilly MD Unavailable [phone] Reason for Referral * Diagnostic Imaging Ultrasound (Routine) - Pending Review Specialty Diagnoses / Procedures Referred By Contac t Referred To Contact Radiology. Diagnoses Encounter for ultrasound to check growth Procedures [facility] US Comprehensive Single F/U Ori Adame MD [address] [facility] [address] [address] Referral ID Status Reason Start Date Expiration Date V isits Requested Visits Authorized [id number] Pending Review 05/31/2023 05/30/2024 1 1 Reason for Visit * Diagnostic Imaging Ultrasound (Routine) - Pending Review Specialty Diagnoses / Procedures Referred By Contac t Referred To Contact Radiology. Diagnoses Encounter for ultrasound to check growth Procedures [facility] US Comprehensive Single F/U Ori Adame MD [address] [address] Referral ID Status Reason Start Date Expiration Date V isits Requested Visits Authorized [id number] Pending Review 05/31/2023 05/30/2024 1 1 Encounter Details Date Type Department Care Team (Latest Contact Info) Description 06/21/2023 9:30 AM CDT - 06/21/2023 11:59 PM CDT Hospital Encounter [facility] [place] [address] [facility] [address] [place] [address] Ori Adame MD [address] [place] [address] Encounter for ultrasound to check [...] Procedure Name Priority Date/Time Associated Diagnosis Comments [facility] US COMPREHENSIVE SINGLE F/U Routine 06/21/2023 10:50 AM CDT Encounter for ultrasound to check growth documented in this encounter Results * [facility] US Comprehensive Single F/U (06/21/2023 10:50 [...] ? Study Date: ??06/21/2023 9:50am Pat. NO: ??[id number] ?Referring ??MD: TRISTA MELLO Site: ??[facility] ? Construction Project Administrator: Chanda Lazo RDMS : ??1995 ?Age: ?? [...] 2 lb 12 ?oz EFW by ?Hadlock ([id number]) Head / Face / Neck Biometry: Photographers' Model ? 4.9 ? mm CM ?5.5 ? mm ANATOMY ----- The following structures appear normal: Head / Neck ? Cranium. Head size. Head shape. Lateral ventricles. Midline falx. Cerebellum. Cisterna magna. Thalami. Face ? Lips. Profile. Nose. Heart / Thorax ?4-chamber view. RVOT view. LVOT view. 4-ehrrgt-mhnvvuf view. ? Diaphragm. Abdomen ? Stomach. Kidneys. [...] [place] Study Date: 06/21/2023 9:50am Pat. NO: [id number] Referring MD: TRISTA MELLO Site: [facility] Construction Project Administrator: Chanda MELLY Lazo : 1995 Age: 28 ----- INDICATION ----- [...] 2 lb 12 oz EFW by Hadlock ([id number]) Head / Face / Neck Biometry: Photographers' Model 4.9 mm CM 5.5 mm ANATOMY ----- The following structures appear normal: Head / Neck Cranium. Head size. Head shape.Lateral ventricles. Midline falx. Cerebellum. Cisterna magna. Thalami. Face Lips. Profile. Nose. Heart / Thorax 4-chamber view. RVOT view. LVOT view.0-bhuwkp-bkhtinv view. Diaphragm. Abdomen Stomach. Kidneys. Bladder. Spine [...] volume appeared normal. Ori Adame MD IMG [facility] US ORDERABL ES documented in this encounter Visit Diagnoses Diagnosis Encounter for ultrasound to check growth documented in this encounter Care Teams Photogeologist Relationship Specialty Start Date End Date No Ref-Primary, Physician PCP - General 03/31/23 Oleg Aparicio, RUPAL [address] [place] [address] Assigned Cancer Care Provider 05/06/23 Ana Oreilly MD [address] [place] [address] Assigned OBGYN Provider 05/06/23 documented as of this encounter
--- OUTSIDE RECORDS SUMMARY | 2023-07-31 17:01 | XMS_ITS | Encounter Summary ---
Author Organization [place] Address [address] [facility] [place] [address] Care Team Providers Care Tractor Operator Name Role Phone No Ref-Primary, Physician Primary Care Provider Oleg Aparicio PA-C Unavailable [phone] Ana Oreilly MD Unavailable [phone] Encounter Details Date Type Department Care Team (Late st Contact Info) Description 07/15/2023 Hospital Encounter [facility] [address] [phone] Moira Roa MD [address] [id number] 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 Tobacco Use Types Packs/Day Years [...] on filedocumented in this encounter Care Teams Tractor Operator Relationship Specialty Start Date End Date No Ref-Primary, Physician PCP - General 03/31/23 Oleg Aparicio, PABrightC [address] [place] [address] [address] [place], [place] [address] Assigned Cancer Care Provider 05/06/23 Ana Oreilly MD [address] [facility] [address] [place], [place] [address] Assigned OBGYN Provider 05/06/23 documented as of this encounter
--- OUTSIDE RECORDS SUMMARY | 2023-07-31 17:01 | XMS_ITS | Encounter Summary ---
Author Organization [place] Address [address] [place] [address]. [place] [address] Care Team Providers Care Contact Representative Name Role Phone No Ref-Primary, Physician Primary Care Provider Oleg Aparicio PA-C Unavailable [phone] Ana Oreilly MD Unavailable [phone] Encounter Details Date Type Department Care Team (Late st Contact Info) Description 04/28/2023 [facility] Medical Advice [facility] [address] [place] [address] Carmen Pollack RN 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 [...] on filedocumented in this encounter Care Teams Contact Representative Relationship Specialty Start Date End Date No Ref-Primary, Physician PCP - General 03/31/23 Oleg Aparicio PA-C [address] [place] [address] Assigned Cancer Care Provider 05/06/23 Ana Oreilly MD [address] [place] [address] Assigned OBGYN Provider 05/06/23 documented as of this encounter
--- OUTSIDE RECORDS SUMMARY | 2023-07-31 17:01 | XMS_ITS | Encounter Summary ---
Author Organization [place] Address [address] [place] [address]. [place] [address] Care Team Providers Care Commercial Title Examiner Name Role Phone No Ref-Primary, Physician Primary Care Provider Encounter Details Date Type Department Care Team ([facility] st Contact Info) Description 04/28/2023 Telephone [facility] [address] [phone] Oleg Aparicio PA-C [address] [place] [address] 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 Tobacco Use Types [...] from the original note were not included. [facility] [address], [address], [place] [address] Main: [phone], Telephone Note: Patient: Gabrielle Mcmahon : 1995 Date of this note written: April 28, 2023 Time: 15:55 This marketing copywriter called the patient on 04/28/2023 at 15:55 [...] post . Oleg Aparicio PA-C, MPAS Physician Checker Dump Grounds [facility]. CTOR SOCIAL documented in this encounter Plan of Treatment Not on file documented as of this encounter Visit Diagnoses Not on filedocumented in this encounter Care Teams Commercial Title Examiner Relationship Specialty Start Date End Date No Ref-Primary, Physician PCP - General 03/31/23 documented as of this encounter
--- OUTSIDE RECORDS SUMMARY | 2023-07-31 17:01 | XMS_ITS | Encounter Summary ---
Author Organization [place] Address [address] [facility] [place] [address] Care Team Providers Care Computer Applications Instructor Name Role Phone No Ref-Primary, Physician Primary Care Provider Oleg Aparicio PA-C Unavailable [phone] Ana Oreilly MD Unavailable [phone] Reason for Visit * Reason Comments Deep Vein Thrombosis Encounter Details Date Type Department Care Team (Late st Contact Info) Description 07/04/2023 2:30 PM CDT Office Visit [facility] [address] [place] [address] Oleg Aparicio PA-C [address] [place] [address] Pulmonary embolism affecting in second [...] included. [facility] [address] [place] [address] Main: [phone], Patient seen at: [place] [facility] at [address] [place] [address] Outpatient Visit Note: Patient: Gabrielle Mcmahon : 1995 DEBORAH: July 04, 2023 Location of this aligner typewriter at the time of this clinic visit was conducted: [facility]. Location of the patient at the time of this clinic visit was conducted: [facility]. Reason [...] up. She was last seen by this aligner typewriter back on 04/28/2023. Thrombosis History Summary: Found [...] both lower extremities. 03/08/2023, she presented to [facility] emergency department with chest pain. CTA [...] today, the emergency department physician did call [facility] Inter[facility] Radiology and consult them about [...] History: 04/28/2023, she established care with this aligner typewriter and I determined that her pulmonary embolic [...] and PmHx: All are reviewed by this aligner typewriter today via electronic medical records 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: [...] venous thromboembolism. Oleg Aparicio PA-C, MPAS Physician Student Activities Director [facility]. The [...] incidental documented in this encounter Care Teams Computer Applications Instructor Relationship Specialty Start Date End Date No Ref-Primary, Physician PCP - General 03/31/23 Oleg Aparicio PA-C [address] [place], [place] [address] Assigned Cancer Care Provider 05/06/23 Ana Oreilly MD [address] [place], [place] [address] Assigned OBGYN Provider 05/06/23 documented as of this encounter
--- OUTSIDE RECORDS SUMMARY | 2023-07-31 17:01 | XMS_ITS | Encounter Summary ---
Author Organization [place] Address [address] [facility] [place] [address] Care Team Providers Care Superintendent [employer] Name Role Phone No Ref-Primary, Physician Primary Care Provider Oleg Aparicio PA-C Unavailable [phone] Ana Oreilly MD Unavailable [phone] Reason for Visit * Reason Onset Date Comments Call To Schedule Appointment 07/28/2023 Mariusz duque with Pt- per ptOleg advised to F/U one month after child is born. Will call back to schedule. Encounter Details Date Type Department Care Team (Late st Contact Info) Description 07/28/2023 Telephone [facility] [address] [place] [address] Resource, [facility] Call To Schedule Appointment (Talked with Pt- per ptOleg advised to F/U one month after child is born. Will call back to schedule.) 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 Tobacco Use Types Packs/Day Years [...] encounter Miscellaneous Notes * Telephone Encounter - Jennifer Clemens - 07/28/2023 3:07 PM CDT Talked with Pt- per ptOleg advised to F/U one month after child is born. Will call back to schedule. documented in this encounter Plan of Treatment Not on file documented as of this encounter Visit Diagnoses Not on filedocumented in this encounter Care Teams Superintendent [employer] Relationship Specialty Start Date End Date No Ref-Primary, Physician PCP - General 03/31/23 Oleg Aparicio, PA-C [address] [place] [id number] Assigned Cancer Care Provider 05/06/23 Ana Oreilly MD [address] [place] [id number] Assigned OBGYN Provider 05/06/23 documented as of this encounter
--- OUTSIDE RECORDS SUMMARY | 2023-07-31 17:01 | XMS_ITS | Clinical Summary ---
Author Organization [facility] Address [place], [place] [address] Care Team Providers Care Legal Internship Name Role Phone Marybeth Andrew MD Primary [...] Procedure Name Priority Date/Time Associated Diagnosis Comments APPEALS NURSE THIN PREP PAP SCREEN IMAGED Routine 12/11/2020 2:40 PM CDT from Last 3 Months or Most Recently Relevant to Health Maintenance Results * APPEALS NURSE THIN PREP PAP SCREEN IMAGED (12/11/2020 2:40 PM CDT) Case Report Gynecologic Cytology Report ? Case: [id number] ? Authorizing Provider: ??Elizabeth Philip ?Collected: ? 12/11/2020 1440 ? [place], ? Ordering Location: ? [facility] ?Received: ?12/15/2020 0858 ? First Screen: ?Baccam, Minie ? Specimen: ?APPEALS NURSE ThinPrep Vial Screening, Cervical/Vaginal ? 12/26/2020 2:03 PM CDT [facility] INTERPRETATION/ RESULT NEGATIVE FOR INTRAEPITHELIAL LESION OR MALIGNANCY (NIL) (none) 12/26/2020 2:[address] [facility] IMEN ADEQUACY Satisfactory for evaluation No endocervical component seen 12/26/2020 2:[address] [facility] HPV REQUEST HPV if ASCUS 12/26/2020 2:[address] [facility] Date of LMP 11/04/2020 12/26/2020 2:[address] [facility] Menstrual Status 12/26/2020 2:[address] [facility] Additional Information 12/26/2020 2:03 PM CDT [facility] Comment: Interpreted at [facility] - [address], [place] [address] Automated Review Successful 12/26/2020 2:[address] [facility] Comment:Specimen processed s uccessfully by automated hardboard coating machine operator device, ThinPrep Imaging System, [employer] Note The pap test is a [...] malignant lesions. 12/26/2020 2:[address] [facility] Other (Cervical/Vagina l) 12/11/2020 2:40 PM CDT 12/15/2020 8:58 AM CDT Elizabeth Philip MD PATHOLOGY/ CYTOLOGY [facility] [address] [place] [address], from Last 3 Months or Most Recently Relevant to Health Maintenance Care Teams Legal Internship Relationship Specialty Start Date End Date Marybeth Andrew MD [address] [place] [address] PCP - General Family Practice 08/20/22
--- OUTSIDE RECORDS SUMMARY | 2023-07-31 17:01 | XMS_ITS | Encounter Summary ---
Author Organization [place] Address [address] [facility] [place] [address] Care Team Providers Care Dietetic Technician Registered Name Role Phone No Ref-Primary, Physician Primary Care Provider Oleg Aparicio PA-C Unavailable [phone] Ana Oreilly MD Unavailable [phone] Reason for Referral * Diagnostic Imaging Ultrasound (Routine) - Pending Review Specialty Diagnoses / Procedures Referred By Contsandy t Referred To Contact Radiology. Diagnoses related condition, antepartum Procedures M[facility] US Comprehensive Single F/U Ori Adame MD [address] [place] [address] Referral ID Status Reason Start Date Expiration Date V isits Requested Visits Authorized [id number] Pending Review 05/10/2023 05/09/2024 1 1 Reason for Visit * Reason Comments Ultrasound RL2/TV- Subopt anato my, hx PTD Encounter Details Date Type Department Care Team (Late st Contact Info) Description 05/10/2023 10:00 AM CDT Office Visit [facility] [place] [address] [facility] [address] [place] [address] Ori Adame MD [address] [place] [address] Encounter for follow-up ultrasound of [...] for details of today's US at the [facility]. Ori Adame MD Maternal- Medicine [...] ? Study Date: ??05/31/2023 10:49am Pat. NO: ??[id number] ?Referring ??MD: TRISTA MELLO Site: ??[facility] ? Electric Appliance Installer: Chanda Lazo RDMS : ??1995 ?Age: ?? [...] lb 13 ? oz EFW by ?Hadlock ([id number]-FY-NJ-FL) Head / Face / Neck Biometry: Chainstitch Tunnel Elastic Operator ? 5.7 ? mm CM ?7.7 ? mm ANATOMY ----- The following structures appear normal: Head / Neck ? Cranium. Head size. Head shape. Lateral ventricles. Midline falx. Cavum septi pellucidi. Cerebellum. Cisterna magna. Thalami. Heart / Thorax ?4-chamber view. RVOT view. LVOT view. 7-wkxsrk-mdbeprq view. ? Diaphragm. Abdomen ? Stomach. Kidneys. [...] [place] Study Date: 05/31/2023 10:49am Pat. NO: [id number] Referring MD: TRISTA MELLO Site: [facility] Electric Appliance Installer: Chanda Lazo RDMS : 1995 Age: 28 [...] 1 lb 13 oz EFW by Hadlock (PLB-CN-NU-FL) Head / Face / Neck Biometry: Chainstitch Tunnel Elastic Operator 5.7 mm CM 7.7 mm ANATOMY ----- The following structures appear normal: Head / Neck Cranium. Head size. Head shape.Lateral ventricles. Midline falx. Cavum septi pellucidi. Cerebellum.Cisterna magna. Thalami. Heart / Thorax 4-chamber view. RVOT view. LVOT view.9-tjbfxm-ucexcme view. Diaphragm. Abdomen Stomach. Kidneys. Bladder. Spine [...] volume appeared normal. Ori Adame MD [facility] US ORDERABL ES documented in this encounter Visit Diagnoses Diagnosis Encounter for follow-up ultrasound of anatomy- Primary History of delivery, currently with history of pre-term labor Encounter for ultrasound to assess growth Encounter for ultrasound to assess growth documented in this encounter Care Teams Dietetic Technician Registered Relationship Specialty Start Date End Date No Ref-Primary, Physician PCP - General 03/31/23 Oleg Aparicio PA-C [address] [place] [address] Assigned Cancer Care Provider 05/06/23 Ana Oreilly MD [address] [facility] [address] [place] [address] Assigned OBGYN Provider 05/06/23 documented as of this encounter
--- OUTSIDE RECORDS SUMMARY | 2023-07-31 17:01 | XMS_ITS | Encounter Summary ---
Author Organization [place] Address [address] [facility] [place] [address] Care Team Providers Care Engineer Systems Name Role Phone No Ref-Primary, Physician Primary Care Provider Oleg Aparicio PA-C Unavailable [phone] Ana Oreilly MD Unavailable [phone] Reason for Referral * Diagnostic Imaging Ultrasound (Routine) - Pending Review Specialty Diagnoses / Procedures Referred By Contsandy t Referred To Contact Radiology. Diagnoses Encounter for ultrasound to check growth Procedures [facility] US Comprehensive Single F/U Ori Adame MD [address] [place] [address] Referral ID Status Reason Start Date Expiration Date V isits Requested Visits Authorized [id number] Pending Review 05/31/2023 05/30/2024 1 1 Reason for Visit * Reason Comments Ultrasound RL2-reassess g rowth, EFW 15% Encounter Details Date Type Department Care Team (Late st Contact Info) Description 05/31/2023 11:30 AM CDT Office Visit [facility] [place] [address] [facility] [address] [place] [address] Ori Adame MD [address] [place] [address] Encounter for ultrasound to check [...] for details of today's US at the [facility]. Ori Adame MD Maternal- Medicine documented in this encounter Nursing Notes * Mara Cheung, MAC - 05/31/2023 11:30 AM CDT Patient reports good movement, denies contractions, leaking of fluid, or bleeding. Patient reports that it takes a little more to take a deep breath lately, thinks related to the . Patient denies SOB and is breathing comfortably and VSS. Encouraged patient to contact primary OB givenhistory of PE. SBAR given to [facility] (Dr. Adame), see their note in Epic. documented in this encounter Plan of Treatment Not on file documented as of this encounter Results * [facility] US Comprehensive Single F/U (06/21/2023 10:50 [...] ? Study Date: ??06/21/2023 9:50am Pat. NO: ??[id number] ?Referring ??: TRISTA MELLO Site: ??[facility] ? Infrastructure Solutions Architect: Chanda Lazo RDMS : ??1995 ?Age: ?? [...] 2 lb 12 ?oz EFW by ?Hadlock (MDM-QH-HL-FL) Head / Face / Neck Biometry: Small Appliance Assembly Supervisor ? 4.9 ? mm CM ?5.5 ? mm ANATOMY ----- The following structures appear normal: Head / Neck ? Cranium. Head size. Head shape. Lateral ventricles. Midline falx. Cerebellum. Cisterna magna. Thalami. Face ? Lips. Profile. Nose. Heart / Thorax ?4-chamber view. RVOT view. LVOT view. 5-culbdi-gpnwlxl view. ? Diaphragm. Abdomen ? Stomach. Kidneys. [...] [place] Study Date: 06/21/2023 9:50am Pat. NO: [id number] Referring MD: TIRSTA MELLO Site: [facility] Infrastructure Solutions Architect: Chanda Lazo RDMS : 1995 Age: 28 [...] 2 lb 12 oz EFW by Hadlock (BLY-JO-SY-FL) Head / Face / Neck Biometry: Small Appliance Assembly Supervisor 4.9 mm CM 5.5 mm ANATOMY ----- The following structures appear normal: Head / Neck Cranium. Head size. Head shape.Lateral ventricles. Midline falx. Cerebellum. Cisterna magna. Thalami. Face Lips. Profile. Nose. Heart / Thorax 4-chamber view. RVOT view. LVOT view.8-jlzxek-ynuzygc view. Diaphragm. Abdomen Stomach. Kidneys. Bladder. Spine [...] fluid volume appeared normal. Ori Adame MD [facility] US ORDERABL ES documented in this encounter Visit Diagnoses Diagnosis Encounter for ultrasound to check growth- Primary Encounter for ultrasound to check growth documented in this encounter Care Teams Engineer Systems Relationship Specialty Start Date End Date No Ref-Primary, Physician PCP - General 03/31/23 Oleg Aparicio PA-C [address] [place] [address] [address] [place] [address] Assigned Cancer Care Provider 05/06/23 Ana Oreilly MD [address] [facility] [address] [place], [place] [id number] Assigned OBGYN Provider 05/06/23 documented as of this encounter
--- OUTSIDE RECORDS SUMMARY | 2023-07-31 17:01 | XMS_ITS | Encounter Summary ---
Author Organization [place] Address [address] [facility] [place] [address] Care Team Providers Care Commercial Accountant Name Role Phone No Ref-Primary, Physician Primary Care Provider Oleg Aparicio PA-C Unavailable [phone] Ana Oreilly MD Unavailable [phone] Encounter Details Date Type Department Care [...] filedocumented in this encounter Care Teams Commercial Accountant Relationship Specialty Start Date End Date No Ref-Primary, Physician PCP - General 03/31/23 Oleg Aparicio PA-C [address] [place] [address] [address] [place] [address] Assigned Cancer Care Provider 05/06/23 Ana Oreilly MD [address] [facility] [address] [place] [address] Assigned OBGYN Provider 05/06/23 documented as of this encounter
--- OUTSIDE RECORDS SUMMARY | 2023-07-31 17:01 | XMS_ITS | Encounter Summary ---
Author Organization [place] Address [address] [facility] [place] [address] Care Team Providers Care Notching Machine Operator Name Role Phone No Ref-Primary, Physician Primary Care Provider Oleg Aparicio PA-C Unavailable [phone] Ana Oreilly MD Unavailable [phone] Reason for Visit * Reason Comments Ultrasound RL2-EFW14% Encounter Details Date Type Department Care Team (Late st Contact Info) Description 06/21/2023 10:00 AM CDT Office Visit [facility] [place] [address] [facility] [address] [place] [address] Ori Adame MD [address] [place] [address] Encounter for ultrasound to check [...] for details of today's US at the [facility]. Ori Adame MD Maternal- Medicine documented in this encounter Nursing Notes * Mara Cheung RN - 06/21/2023 10:00 AM CDT Patient reports good movement, reports Eolia Thomas contractions, denies leaking of fluid, or bleeding. SBAR given to [facility] MD, see their note in Epic. documented in this encounter Plan of Treatment Not on file documented as of this encounter Visit Diagnoses Diagnosis Encounter for ultrasound to check growth- Primary documented in this encounter Care Teams Notching Machine Operator Relationship Specialty Start Date End Date No Ref-Primary, Physician PCP - General 03/31/23 Oleg Aparicio PA-C [address] [place] [address] Assigned Cancer Care Provider 05/06/23 Ana Oreilly MD [address] [place] [address] Assigned OBGYN Provider 05/06/23 documented as of this encounter
--- OUTSIDE RECORDS SUMMARY | 2023-07-31 17:01 | XMS_ITS | Encounter Summary ---
Author Organization [place] Address [address] [facility] [place] [address] Care Team Providers Care Director Of Home Care Hospice Name Role Phone No Ref-Primary, Physician Primary Care Provider Oleg Aparicio PA-C Unavailable [phone] Ana Oreilly MD Unavailable [phone] Encounter Details Date Type Department Care [...] filedocumented in this encounter Care Teams Director Of Home Care Hospice Relationship Specialty Start Date End Date No Ref-Primary, Physician PCP - General 03/31/23 Oleg Aparicio PA-C [address] [place] [address] [address] [place] [address] Assigned Cancer Care Provider 05/06/23 Ana Oreilly MD [address] [facility] [address] [place] [address] Assigned OBGYN Provider 05/06/23 documented as of this encounter
--- OUTSIDE RECORDS SUMMARY | 2023-07-31 17:01 | XMS_ITS | Encounter Summary ---
Author Organization [place] Address [address] [place] [address] Care Team Providers Care Chain Saw Operator Name Role Phone No Ref-Primary, Physician Primary Care Provider Reason for Visit * Reason Comments CLOTTING * Consultation (Priority: 1-2 Weeks) - Pending Review Specialty Diagnoses / Procedures Referred By Diana t Referred To Contact Medical Oncology Diagnoses Pulmonary embolism affecting in second trimester Ana Oreilly MD [address] [place] [address] Referral ID Status Reason Start Date Expiration Date V isits Requested Visits Authorized [id number] Pending Review 04/12/2023 04/11/2024 1 1 Encounter Details Date Type Department Care Team (Late st Contact Info) Description 04/28/2023 1:30 PM HOUSING PROPERTY MANAGER Office Visit [facility] [address] [facility] [address] [place] [phone] Ana Oreilly MD [address] [place] [address] Oleg Aparicio PA-C [address] [place], [place] [id number] Pulmonary embolism affecting in second trimester (Primary [...] Comments Blood Pressure 113/69 04/28/2023 1:25 PM HOUSING PROPERTY MANAGER Pulse 72 04/28/2023 1:25 PM HOUSING PROPERTY MANAGER Temperature 36.7 ??C (98 ??F) 04/28/2023 1:25 PM HOUSING PROPERTY MANAGER Respiratory Rate - - Oxygen Saturation 98% 04/28/2023 1:25 PM HOUSING PROPERTY MANAGER Inhaled Oxygen Concentration - - Weight 68.9 kg (152 lb) 04/28/2023 1:25 PM HOUSING PROPERTY MANAGER Height 170.2 cm (5' 7) 04/28/2023 1:25 PM HOUSING PROPERTY MANAGER Body Mass Index 23.81 04/28/2023 1:25 PM HOUSING PROPERTY MANAGER documented in this encounter Progress Notes * Oleg Aparicio PA-C - 04/28/2023 1:30 PM CST Images from the original note were not included. [facility] [address] [place] [address] Main: [phone], Patient seen at: [facility] at [address] [place] [address] Outpatient Visit Note: Patient: Gabrielle Mcmahon : 1995 DEBORAH: April 28, 2023 Location of this financial underwriter at the time of this clinic visit was conducted: [facility], [facility]. Location of the patient at the time of this clinic visit was conducted: [facility]. [...] the patient's pulmonary embolism was diagnosed at [facility] and I am unable to find any progress notes, H&P notes or discharge summary of this hospitalization in her records. I am able, however, to see some labs and imaging studies via [facility] Everywhere from [facility]. From what I can gather, Gabrielle [...] was performed. She then went to the [facility] emergency department on 03/08/2023 with chest [...] today, [facility] [...] the time, her mother was seen at [facility] and from Gabrielle's description, it was consistent with c erebral sinus thrombosis but not entirely clear. Gabrielle report that her mother's blood clot was related to control and her mother is no longer on anticoagulation therapy. Gabrielle is unclear ifother thrombophilia workup was done with her mother. Then on 04/22/2023, this financial underwriter received a call from a nurse at [facility] and was inquiring about her enoxaparin dosing. At the time, this financial underwriter was informed that her Anti-Xa level was subtherapeutic at I belief at 0.3 (again, I am not able to see any [facility]'s or systems notes. 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 Has not return to work as of [...] a LMWH Anti-Xa level reported to this financial underwriter from [facility] that was subtherapeutic. I will plan [...] weeks gestation) to be done at a [facility] so that we can get the [...] or concerns. Oleg Aparicio PA-C, MPAS Physician Forensic Locksmith [facility]. The longitudinal [...] note. Time IN: 13:30 Time OUT: 14:15 ING PROPERTY MANAGER documented in this encounter Miscellaneous Notes * Addendum Note - Oleg Aparicio PA-C - 04/28/2023 1:30 PM CSTAddended by: OLEG APARICIO on: 04/28/2023 04:09 PM Modules accepted: Orders ING PROPERTY MANAGER documented in this encounter Plan of Treatment Not on file documented as of this encounter Procedures Procedure Name Priority Date/Time Associated Diagnosis Comments LOW MOLECULAR WEIGHT HEPARIN ANTI XA LEVEL Routine 04/28/2023 2:27 PM HOUSING PROPERTY MANAGER Pulmonary embolism affecting in second trimester documented [...] BLOOD ORDERABL ES Performing Organization Address City/[facility]/ZIP Co de Phone Number LABORATORY [facility] [address] [place] [address], [address] * Beta 2 Glycoprotein 1 Antibody IgM (05/03/2023 1:03 PM CDT) Beta 2 Glycoprotein 1 Antibody IgM <2.4 <7.0 U/mL 05/04/2023 10:34 AM CDT SPECIALTY CORE/PROT/END O Comment:Negative Blood BLOOD SPECIMEN / Unknown Venipuncture / Unknown 05/03/2023 1:03 PM CDT 05/03/2023 1:03 PM CDT Oleg Aparicio PA-C LAB - BLOOD ORDERABL ES SPECIALTY CORE/PROT/ENDO Specialty Core/Prot/Endo [address] [facility], [address] * Beta 2 Glycoprotein 1 Antibody IgG (05/03/2023 1:03 PM CDT) Beta 2 Glycoprotein 1 Antibody IgG <0.8 <7.0 U/mL 05/04/2023 10:34 AM CDT SPECIALTY CORE/PROT/END O Comment:Negative Blood BLOOD SPECIMEN / Unknown Venipuncture / Unknown 05/03/2023 1:03 PM CDT 05/03/2023 1:03 PM CDT Oleg Aparicio PA-C LAB - BLOOD ORDERABL ES Performing Organization Address City/[facility]/ZIP Co de Phone Number UM SPECIALTY CORE/PROT/ENDO Specialty Core/Prot/Endo [address] [facility] [address], Room [address] * Cardiolipin Angie IgG and IgM (05/03/2023 1:03 PM CDT) Cardiolipin Angie IgG Instrument Value <2.0 <10.0 GPL-U/mL 05/04/2023 10:34 AM CDT UM SPECIALTY CORE/PROT/END O Cardiolipin Antibody IgG Negative Negative 05/04/2023 10:34 AM CDT SPECIALTY CORE/PROT/END O Cardiolipin Angie IgM Instrument Value <2.0 <10.0 MPL-U/mL 05/04/2023 10:34 AM CDT SPECIALTY CORE/PROT/END O Cardiolipin Antibody IgM Negative Negative 05/04/2023 10:34 AM CDT UM SPECIALTY CORE/PROT/END O Blood BLOOD SPECIMEN / Unknown Venipuncture / Unknown 05/03/2023 1:03 PM CDT 05/03/2023 1:03 PM CDT Oleg Aparicio PA-C LAB - BLOOD ORDERABL ES UM SPECIALTY CORE/PROT/ENDO Specialty Core/Prot/Endo [address] [facility] [address], [address] * (ABNORMAL) Lupus Anticoagulant Panel (05/03/2023 [...] of an antiphospholipid syndrome, recommend anticardiolipin and xmmv-2-otijtniznsd n (IgG and IgM) antibody tests. Recommend [...] UM SPECIAL COAGULATION UM Special Coagulation [address] [facility] J [facility], [address] [address] * Low Molecular Weight Heparin Anti [...] BLOOD ORDERABL ES Performing Organization Address City/[facility]/ZIP Co de Phone Number [facility]U LABORATORY [facility] [address] [facility], [address] [place] [address], [facility] * Low Molecular Weight Heparin Anti Xa Level (04/28/2023 2:27 PM HOUSING PROPERTY MANAGER) Anti Xa Low Molecular Weight 0.42 For Reference Range, See Comment IU/mL 04/28/2023 2:53 PM HOUSING PROPERTY MANAGER UR LABORATORY Blood STRUCTURE OF RIGHT UPPER LIMB / Unknown Venipuncture / Unknown 04/28/2023 2:27 PM HOUSING PROPERTY MANAGER 04/28/2023 2:41 PM HOUSING PROPERTY MANAGER Narrative UR LABORATORY - 04/28/2023 2:53 PM HOUSING PROPERTY MANAGER If collected 4-6 hours after administration: Adults: If administered only once daily with a dose of 1.5 mg/k.0-2.0 IU/mL. If administered twice daily with a dose of 1 mg/k.50-1.0 IU/mL. Pediatrics: If administered twice daily: 0.50-1.0 IU/mL. Olge Aparicio PA-C LAB - BLOOD ORDERABL ES UR LABORATORY [facility] Acute Care Lab [address] [facility], [address] [place] [address], [facility] [phone] documented in this encounter Visit Diagnoses Diagnosis Pulmonary embolism affecting in second trimester- Primary Family history of blood clots Family history of other blood disorders documented in this encounter Care Teams Chain Saw Operator Relationship Specialty Start Date End Date No Ref-Primary, Physician PCP - General 03/31/23 documented as of this encounter
--- OUTSIDE RECORDS SUMMARY | 2023-07-31 17:01 | XMS_ITS | Encounter Summary ---
Author Organization [place] Address [address] [facility] [place] [address] Care Team Providers Care Portuguese Tutor Name Role Phone No Ref-Primary, Physician Primary Care Provider Encounter Details Date Type Department Care Team (Late st Contact Info) Description 05/03/2023 1:00 PM CDT [facility] Laboratory [address] [place] [phone] Pulmonary embolism affecting in second trimester; Family [...] ES UM SPECIALTY CORE/PROT/ENDO Specialty Core/Prot/Endo [address] [facility], [address] * Beta 2 Glycoprotein 1 Antibody IgG (05/03/2023 1:03 PM CDT) Beta 2 Glycoprotein 1 Antibody IgG <0.8 <7.0 U/mL 05/04/2023 10:34 AM CDT SPECIALTY CORE/PROT/END O Comment:Negative Blood BLOOD SPECIMEN / Unknown Venipuncture / Unknown 05/03/2023 1:03 PM CDT 05/03/2023 1:03 PM CDT Oleg Aparicio PA-C LAB - BLOOD ORDERABL ES UM SPECIALTY CORE/PROT/ENDO UM Specialty Core/Prot/Endo [address] [facility] [address] [facility], [address] [place] [address] * Cardiolipin Makenzie IgG and IgM (05/03/2023 [...] UM SPECIALTY CORE/PROT/ENDO UM Specialty Core/Prot/Endo [address] [facility], [address] * (ABNORMAL) Lupus Anticoagulant Panel (05/03/2023 1:03 PM CDT) Pathologist [facility] INR 1.02 0.85 - 1.15 4 2:25 [...] of an antiphospholipid syndrome, recommend anticardiolipin and wtno-9-tswkhplrmqn n (IgG and IgM) antibody tests. Recommend [...] Organization Address City/[facility] Co de Phone Number SPECIAL COAGULATION UM Special Coagulation [address] [facility], [address] [phone] * Low Molecular Weight Heparin Anti Xa Level (05/03/2023 1:03 PM CDT) [facility] Anti Xa Low Molecular Weight 0.63 For [...] Organization Address City/[facility]/ZIP Co de Phone Number [facility] LABORATORY [facility] [facility] [address] [facility], [address] [phone] documented in this encounter Visit Diagnoses Diagnosis Pulmonary embolism affecting in second trimester Family history of blood clots Family history of other blood disorders documented in this encounter Care Teams Portuguese Tutor Relationship Specialty Start Date End Date No Ref-Primary, Physician PCP - General 03/31/23 documented as of this encounter
--- OUTSIDE RECORDS SUMMARY | 2023-07-31 17:01 | XMS_ITS | Encounter Summary ---
Author Organization [facility] Address [address] [place] [address] Care Team Providers Care Mail Order Sorter Name Role Phone No Ref-Primary, Physician Primary Care Provider Oleg Aparicio PA-C Unavailable [phone] Ana Oreilly MD Unavailable [phone] Reason for Referral * Diagnostic Imaging Ultrasound (Routine) - Pending Review Specialty Diagnoses / Procedures Referred By Contac t Referred To Contact Radiology. Diagnoses related condition, antepartum Procedures [facility] US Comprehensive Single F/U Ori Adame MD [address] [facility] [employer] [address] [address] Referral ID Status Reason Start Date Expiration Date V isits Requested Visits Authorized [id number] Pending Review 05/10/2023 05/09/2024 1 1 Reason for Visit * Diagnostic Imaging Ultrasound (Routine) - Pending Review Specialty Diagnoses / Procedures Referred By Contac t Referred To Contact Radiology. Diagnoses related condition, antepartum Procedures [facility] US Comprehensive Single F/U Ori Adame MD [address] [facility] [employer] [address] [address] Referral ID Status Reason Start Date Expiration Date V isits Requested Visits Authorized [id number] Pending Review 05/10/2023 05/09/2024 1 1 Encounter Details Date Type Department Care Team (Latest Contact Info) Description 05/31/2023 10:45 AM CDT - 05/31/2023 11:59 PM CDT Hospital Encounter [facility] [place] [address] [facility] [address] [place] [address] Ori Adame MD [address] [place] [address] Encounter for ultrasound to assess [...] Procedure Name Priority Date/Time Associated Diagnosis Comments [facility] US COMPREHENSIVE SINGLE F/U Routine 05/31/2023 11:40 AM CDT Encounter for ultrasound to assess growth documented in this encounter Results * [facility] US Comprehensive Single F/U (05/31/2023 11:40 [...] ? Study Date: ??05/31/2023 10:49am Pat. NO: ??[id number] ?Referring ??MD: TRISTA MELLO Site: ??[facility] ? Director Of Math: Chanda Lazo RDMS : ??1995 ?Age: ?? [...] lb 13 ? oz EFW by ?Hadlock ([id number]) Head / Face / Neck Biometry: Jet Ski Mechanic ? 5.7 ? mm CM ?7.7 ? mm ANATOMY ----- The following structures appear normal: Head / Neck ? Cranium. Head size. Head shape. Lateral ventricles. Midline falx. Cavum septi pellucidi. Cerebellum. Cisterna magna. Thalami. Heart / Thorax ?4-chamber view. RVOT view. LVOT view. 4-wghvxi-akfbaqg view. ? Diaphragm. Abdomen ? Stomach. Kidneys. [...] [place] Study Date: 05/31/2023 10:49am Pat. NO: [id number] Referring MD: TRISTA MELLO Site: [facility] Director Of Math: Chanda Lazo RDMS : 1995 Age: 28 [...] 1 lb 13 oz EFW by Hadlock ([id number]) Head / Face / Neck Biometry: Jet Ski Mechanic 5.7 mm CM 7.7 mm ANATOMY ----- The following structures appear normal: Head / Neck Cranium. Head size. Head shape.Lateral ventricles. Midline falx. Cavum septi pellucidi. Cerebellum.Cisterna magna. Thalami. Heart / Thorax 4-chamber view. RVOT view. LVOT view.9-oqwpta-xnpvcpe view. Diaphragm. Abdomen Stomach. Kidneys. Bladder. Spine [...] growth documented in this encounter Care Teams Mail Order Sorter Relationship Specialty Start Date End Date No Ref-Primary, Physician PCP - General 03/31/23 Oleg Aparicio, RUPAL [address] [address] Assigned Cancer Care Provider 05/06/23 Ana Oreilly MD [address] [place] [address] Assigned OBGYN Provider 05/06/23 documented as of this encounter
--- OUTSIDE RECORDS SUMMARY | 2023-07-31 17:01 | XMS_ITS | Encounter Summary ---
Author Organization [facility] Address [address] [facility] [place] [place] [address] Care Team Providers Care Hvac Field Service Technician Name Role Phone No Ref-Primary, Physician Primary Care Provider Oleg Aparicio PA-C Unavailable [phone] Ana Oreilly MD Unavailable [phone] Encounter Details Date Type Department Care [...] on filedocumented in this encounter Care Teams Hvac Field Service Technician Relationship Specialty Start Date End Date No Ref-Primary, Physician PCP - General 03/31/23 Oleg Aparicio PA-C [address] [place] [address] [address] [place] [address] Assigned Cancer Care Provider 05/06/23 Ana Oreilly MD [address] [facility] [address] [place] [address] Assigned OBGYN Provider 05/06/23 documented as of this encounter
--- OUTSIDE RECORDS SUMMARY | 2023-07-31 17:02 | XMS_ITS ---
Author Organization [facility] Address [address] [place] [address] Care Team Providers Care Organ Pipe Maker Metal Name Role Phone Unavailable Unavailable Unavailable Surgery Details Not on file Complications Check Surgery Details section. Procedure Estimated Blood Loss Check Surgery Details section. Procedure Findings Check Surgery Details section. Procedure Specimens Taken Check Surgery Details section.
--- OUTSIDE RECORDS SUMMARY | 2023-07-31 17:02 | XMS_ITS | Referral Summary ---
Author Organization [facility] Address [address] [place] [address] Care Team Providers Care Channel Marketing Manager Name Role Phone Elsewhere, Pcp Primary Care Provider Unavailabl e Source Comments Patient records contain information from all sites at [facility]. For routine questions regarding patient records, call [phone] during business hours, M-F 8:00 AM - 5:00 PM Central Time. Record requests for emergency care only can be directed to [phone] at any time.[facility] Allergies No known active allergies Medications Medication Sig Dispensed Refills Start Date End Date Status qewiiur-Ym-hqjk-FA (VINATE ONE) 60 mg iron-1 mg per [...] How often do you attend chur or denominational services? More than 4 times per year 02/21/2022 Do you belong to any clubs o r organizations such as sikh groups, unions, fraternal or athletic groups, or [...] and heating? Not hard at all 02/21/2022 [facility] - Occupational [...] place to sleep or slept in a detention (including now)? No 02/21/2022 Nutrition Answer Date [...] Sex Assigned at Female 02/21/2022 11:00 AM CLAY BURNER Gender Identity Female 02/21/2022 11:00 AM CLAY BURNER Sexual Orientation Straight 02/21/2022 11 :00 AM CLAY BURNER Last Filed Vital Signs Vital Sign Reading Time Taken Comments Blood Pressure - - Pulse - - Temperature 36.6 ??C (97.9 ??F) 02/24/2022 12:[address] Respiratory Rate - - Oxygen Saturation - - Inhaled Oxygen Concentration - - Weight 72.4 kg (159 lb 9.8 oz) 02/24/2022 12:38 PM CLAY BURNER Height 169.7 cm (5' 6.81) 02/24/2022 12:[address] Body Mass Index 25.14 02/24/2022 12:38 PM CLAY BURNER Plan of Treatment Not on file Care Teams Channel Marketing Manager Relationship Specialty Start Date End Date Elsewhere, Pcp PCP - General Internal Medicine 02/24/22
--- OUTSIDE RECORDS SUMMARY | 2023-07-31 17:02 | XMS_ITS | Clinical Summary ---
Author Organization [facility] Address [address] [place] [address] Care Team Providers Care Road Equipment Operator Name Role Phone Elsewhere, Pcp Primary Care Provider Unavailabl e Source Comments Patient records contain information from all sites at [facility]. For routine questions regarding patient records, call [phone] during business hours, M-F 8:00 AM - 5:00 PM Central Time. Record requests for emergency care only can be directed to [phone] at any time.[facility] Allergies No known active allergies Medications Medication Sig Dispensed Refills Start Date End Date Status ehwjxtu-En-tscu-FA (VINATE ONE) 60 mg iron-1 mg per [...] How often do you attend chur or jew services? More than 4 times per year 02/21/2022 Do you belong to any clubs o r organizations such as bahai groups, unions, fraternal or athletic groups, or [...] and heating? Not hard at all 02/21/2022 [facility] Occupat ional Health - Occupational Stress [...] place to sleep or slept in a usp (including now)? No 02/21/2022 Nutrition Answer Date [...] Sex Assigned at Female 02/21/2022 11:00 AM OPERATIONS CONSULTANT Gender Identity Female 02/21/2022 11:00 AM OPERATIONS CONSULTANT Sexual Orientation Straight 02/21/2022 11 :00 AM OPERATIONS CONSULTANT Last Filed Vital Signs Vital Sign Reading Time Taken Comments Blood Pressure - - Pulse - - Temperature 36.6 ??C (97.9 ??F) 02/24/2022 12:[address] Respiratory Rate - - Oxygen Saturation - - Inhaled Oxygen Concentration - - Weight 72.4 kg (159 lb 9.8 oz) 02/24/2022 12:38 PM OPERATIONS CONSULTANT Height 169.7 cm (5' 6.81) 02/24/2022 12:[address] Body Mass Index 25.14 02/24/2022 12:38 PM OPERATIONS CONSULTANT Plan of Treatment Health Maintenance Due Date [...] age to complete this topic Care Teams Road Equipment Operator Relationship Specialty Start Date End Date Elsewhere, Pcp PCP - General Internal Medicine 02/24/22
[2023-07-31 17:08] VITALS: BP 131/80; PULSE 93; PULSE 98; O2SAT 81
[2023-07-31 17:09] VITALS: PULSE 100; O2SAT 98
[2023-07-31 17:21] VITALS: BP 118/73; PULSE 102; RESP 16; TEMP 37
[2023-07-31 17:40] LABS: Appearance Urine Clear (Clear); Bilirubin Urine Negative (Negative); Blood Urine Negative (Negative); Color Urine Yellow (Yellow); Glucose Urine Negative (Negative); Ketones Urine Negative (Negative); Leukocyte Esterase Urine Negative (Negative); Nitrite Urine Negative (Negative); Protein Urine Negative (Negative); Urobilinogen Urine 0.2 (0.2-1.0)
[2023-07-31 18:11] LABS: Clue Cells No Clue Cells Seen (None Seen); Trichomonas No Trichomonas Seen (None Seen); Yeast No Yeast Seen (None Seen)
--- NOTE | 2023-07-31 20:30 | P.LDBA_ITS ---
Subjective History of Present Illness Time Seen by Provider: 18:30 Date Seen: 07/31/23 Narrative: Gabrielle Mcmahon is a 28yo at 35w0d GA who presented for abdominal cramping. is complicated by bilateral PEs in early , therapeutic ACO with lovenox 100mg BID, history of at 36 weeks, history of precipitous delivery <2 hours and 5cm ovarian cyst. She has had threatened labor in this , s/p transfer for inpatient monitoring, discharged on 07/17. Gabrielle called the weight loss consultant line regarding pain, please see my call note for complete details. Briefly, she notes return of uterine cramping over the last 24 hours. This is the same sensation that was occurring during her prior transfer for threatened labor, described as tightening and cramping from her umbilicus to pubic region. Denies vaginal bleeding or leaking of fluids. She recently was treated with yeast infection, where she now just notes some gel- like discharge. No vulvovaginal itching/burning. No urinary or bowel concerns. Endorses active movement. Patient notes onset of pain prompted her to hold her lovenox this morning - last dose evening of 68. Pain occurs infrequently, where she may have 6-8 episodes in an hour or go several hours without it. Specific Issues/Plans G 2 P 0101 # Bilateral PE, elevated troponin levels, dx on 03/08/23 -On Lovenox 100mg BID, Hematology consult on 07/03/23 as below -Echocardiogram completed on 03/08/23: EF 62%, no valve disease -M consult and level 2 US: 04/12/23 -No specific thrombophilia identified as of yet, further testing -Recommendations from M: -Anti Xa levels should be monitor within a week of dose adjustments, and every 4 weeks once steady state has been achieved. Target levels between 0.6- 1.0 units/mL. -thrombophilia testing once of anticoagulation -anesthesia consult in the 3rd trimester: completed -scheduled induction at 39 weeks in order to time anticoagulation. Discontinuation of anticoagulation for patient on therapeutic anticoagulation is recommended 24 hours prior to scheduled induction. -they would recommend that she continues therapeutic dosing throughout and 6 weeks , this needs to be discuss with Hematology. -growth ultrasounds every 4 weeks 32wks: EFW 27% 36 wks: ordered # labor -Uterine contractions and cervix 2-3cm/80% -Transferred to [facility]: 07/15/23- 07/18/23 -Completed course of steroids on 07/16/23, was on Nifedipine to complete steroids. -Minimal cervical change, discharged home. # delivery at 36 weeks 3 days. PPROM and spontaneous labor. -[facility] recommends to complete cervical length measurements every 2 weeks: Normal, D/C # Precipitous delivery, <2 hours # 5.1 simple ovarian cyst on right ovary at first OB. Check again at 20 week FAS. Ultrasounds: Level 2 US on 04/12/23, normal but some suboptimal views (face, genitals, spine). Posterior placenta not previa, three-vessel umbilical cord, normal amount of amniotic fluid, EFW: 18th percentile, abdominal circumference 21 percentile. Normal anatomy, but suboptimal. F/U on 05/10/23: Normal anatomy. Cervical length normal with no funneling, discontinue cervical length measurements. EFW: 15 percentile, abdominal circumference: 18 percentile. Follow-up growth scheduled with [facility] in 3 weeks. 05/31/23: Cephalic, posterior placenta without previa, EFW 14%, AC 17%, MVP 6.4 cm. Return to [facility] for growth scan in 3 weeks 06/20: EFW 1258g, 18%ile Dr. Markus Ruiz Hematology last consult note from 07/03/23: ? Antepartum: Continue enoxaparin at 100 mg subQ every 12 hours through the remainder of her . No further LMWH anti-Xa levels checks are needed. Labor and delivery: Recommend that she is to undergo scheduled induction of labor. With scheduled induction of labor, she can stop her enoxaparin 24 hours prior to her induction date and this will provide her opportunity to receive epidural anesthesia if desired. I explained that if she goes into labor early, then she might not be able to receive epidural anesthesia if her last enoxaparin injection is within 24 hours. I also explained to her that she might need general anesthesia for emergency delivery of her last not spare an injection is within 24 hours. : I recommend that she is to restart enoxaparin 12-24 hours after her delivery assuming that she has no bleeding complications. I will have her get a repeat LMWH anti-Xa level done 1 week after her delivery and adjust her medicat ion dose as necessary. Then I will plan to have her stay on medication for at least 6 weeks . I will see her back in our clinic 1 month post to discussed proceeding with thrombophilia workup. Flu: Declines today, planning to get with her daughter Covid: Recommended. Not vaccinated, declines. RSV: n/a TDAP:06/23/23 GBS 07/15/23 at [place] Negative Hgb 07/15/23 11.6 OB - Problem Based A/P Additional Plan (1) labor in third trimester: Status: Acute (2) Pulmonary embolism: Problem details: Diagnosed on February 2023. Status: Acute Plan Gabrielle is a 28yo at 35w0d GA admitted for observation in the setting of threatened labor. is complicated by history of spontaneous at 36 weeks, precipitous delivery <2 hours and therapeutic lovenox in the setting of bilateral PEs in . She was transferred earlier in this for threatened labor, advised to present to triage after noting return of similar uterine cramping over the last 24 hours. On arrival, she is well appearing with no apparent contractions on toco. Still, she notes pain episodes occur as regularly as 6-8x per hour and she has made demonstrable cervical change from 3/80/0 to 4/80/0. status has been entirely reassuring. UA and wet prep were unremarkable. Given her significant medical comorbidities and history of precipitous delivery, I would recommend observation overnight in the hospital. Last cervical exam was 4/80/0 at about 1945. She notes symptoms are unchanged, status remains reactive and no apparent contractions on toco. Explained we would not augment her labor given prematurity. We will avoid routine cervical exams, plan to recheck with any change in maternal or status. - She is s/p BMZ on 07/14 - 07/15 - GBS negative on 07/14 - Plan to HOLD lovenox given threatened labor. Antepartum and recommendations by Hematology are available in her clinic notes. - Plan to obtain CBC, T/S and place IV with any further cervical change - EFW 1191g at 27%ile by US on 07/14/23 OB Exam Physical Exam Vital signs: Temp Pulse Resp BP Pulse Ox 98.6 F 102 H 16 118/73 98 07/31/23 17:21 07/31/23 17:21 07/31/23 17:21 07/31/23 17:21 07/31/23 17:09 Narrative: General: Alert and oriented, in no acute distress Psych: Appropriate mood and affect Abdomen: Gravid NST: Category 1 - normal baseline, moderate variability, accelerations present and decelerations absent [place]: Irritability but no contractions noted, patient has had episodes of pain while here that do not seem to coincide with toco rise. Cervix: 3/80/0 on initial RN exam Recheck at 2 hours: 4/80/0 on RN exam
[2023-07-31 21:00] VITALS: BMI 26.8
[2023-07-31 21:19] VITALS: BP 120/64; PULSE 94; RESP 17; TEMP 36.8
[2023-07-31 22:11] LABS: Basophils Absolute Auto 0.02 K/uL (0.00-0.30); Basophils Percent Auto 0.2 % (0.0-3.0); Eosinophils Absolute Auto 0.03 K/uL (0.00-0.50); Eosinophils Percent Auto 0.3 % (0.0-7.0); Hematocrit 35.6 % (33.0-51.0); Hemoglobin* 11.6 gm/dL (12.0-16.0); Immature Granulocytes Abs Auto 0.14 K/uL (0.00-0.30); Immature Granulocytes Pct Auto 1.4 %; Lymphocytes Percent Auto 16.9 % (20-44); Mean Corpuscular HGB Conc 33 gm/dL (32-36); Mean Corpuscular Hemoglobin 29 pg (26-34); Mean Corpuscular Volume 88 fL (80-100); Monocytes Percent Auto 8.1 % (0.0-11.0); Neutrophils Percent Auto 73.1 % (42.0-72.0); Platelet Count* 201 K/uL (140-440); RDW Coefficient of Variation % 13.1 % (11.5-15.5); Red Blood Count 4.04 m/uL (4.00-5.20); White Blood Count* 9.78 K/uL (4.50-11.00)
[2023-07-31 22:14] LABS: Slide Review Reflex No
[2023-07-31 22:17] LABS: INR 0.91 (0.91-1.10); Prothrombin Time 12.8 Seconds
[2023-07-31 22:18] LABS: Partial Thromboplastin Time* 29 Seconds (23-33)
[2023-07-31 22:34] LABS: Fibrinogen* 687 mg/dL (200-450)
[2023-08-01 03:04] VITALS: BP 108/59; PULSE 93; RESP 16; TEMP 36.9
[2023-08-01 05:38] VITALS: BP 102/50; PULSE 86; RESP 16; TEMP 36.7
[2023-08-01 05:39] VITALS: PULSE 84; O2SAT 96
[2023-08-01 07:29] VITALS: BP 116/67; PULSE 76
--- NOTE | 2023-08-01 07:41 | PM.OBLDTN ---
OB - Triage/Final Diagnosis Visit Information Time Seen by Provider: 07:41 Date Seen: 08/01/23 Date of evaluation: 08/01/23 Narrative: The patient is a 28 year old 2 para 1001 at 35 and 1/7 weeks gestation by LMP, who was admitted for observation overnight for pre term contractions and suspected labor who changed her cervix from 3 cm to 4 cm dilated but then had no change in dilation overnight. This morning she states her contractions are much more spaced out and on the monitor every 15-20 minutes. She rates the contractions 2/10 in terms of discomfort. I checked her this morning and by my exam she was 4 cm/90%/-2 which is unchanged from her admission of 4cm/100/-1 she was discharged home in stable condition. I asked her to restart her Lovenox this morning. She has no appointment with Dr. Tolentino later this week which I encouraged her to keep. I asked her to contact the center if she feels her contractions are again close together unlikely return to the center for evaluation. Reason for evaluation: threatened labor Evaluation Cervical dilation (cm): 4 Cervical effacement (%): 90 Laboratory results: Laboratory Tests 07/31/23 07/31/23 07/31/23 Range/Units 21:44 17:33 17:30 WBC 9.78 (4.50-11.00) K/uL RBC 4.04 (4.00-5.20) m/uL Hgb 11.6 L (12.0-16.0) gm/dL Hct 35.6 (33.0-51.0) % MCV 88 (80-100) fL MCH 29 (26-34) pg MCHC 33 (32-36) gm/dL RDW Coeff of Erasmo 13.1 (11.5-15.5) % Plt Count 201 (140-440) K/uL Neut % (Auto) 73.1 H (42.0-72.0) % Lymph % (Auto) 16.9 L (20-44) % [place] % (Auto) 8.1 (0.0-11.0) % Eos % (Auto) 0.3 (0.0-7.0) % Baso % (Auto) 0.2 (0.0-3.0) % Neut # (Auto) 7.10 H (1.7-7.0) K/uL Lymph # (Auto) 1.70 (0.90-2.90) K/uL Murray # (Auto) 0.80 (0.00-0.90) K/UL Eos # (Auto) 0.03 (0.00-0.50) K/uL Baso # (Auto) 0.02 (0.00-0.30) K/uL Abs Immat Gran (auto) 0.14 (0.00-0.30) K/uL Imm/Tot Granulo (auto) 1.4 % INR 0.91 (0.91-1.10) APTT 29 (23-33) Seconds Fibrinogen 687 H (200-450) mg/dL Urine Color Yellow (Yellow) Urine Appearance Clear (Clear) Urine pH 7.0 (5.0-8.5) Ur Specific [place] 1.020 (1.000-1.030) Urine Protein Negative (Negative) Urine Glucose (UA) Negative (Negative) Urine Ketones Negative (Negative) Urine Blood Negative (Negative) Urine Nitrite Negative (Negative) Urine Bilirubin Negative (Negative) Urine Urobilinogen 0.2 (0.2-1.0) Ur Leukocyte Esterase Negative (Negative) Vaginal Trichomonas No Trichomonas Seen (None Seen) Vaginal Yeast No Yeast Seen (None Seen) Vaginal Clue Cells No Clue Cells Seen (None Seen) RPR Screen Pending Blood Type O Positive Antibody Screen NEGATIVE Crossmatch (AHG) See Detail Vital signs: Vital Signs - 24 hr 07/31/23 17:08 07/31/23 17:09 07/31/23 17:21 Temperature Pulse Rate 98 102 H Respiratory Rate Blood Pressure 131/80 118/73 Pulse Oximetry 81 L 98 07/31/23 17:21 07/31/23 21:19 07/31/23 21:19 Temperature 98.6 F 98.2 F Pulse Rate 94 Respiratory Rate 16 17 Blood Pressure 120/64 Pulse Oximetry 08/01/23 03:04 08/01/23 03:04 08/01/23 05:38 Temperature 98.4 F Pulse Rate 93 86 Respiratory Rate 16 Blood Pressure 108/59 L 102/50 L Pulse Oximetry 08/01/23 05:38 08/01/23 05:39 08/01/23 07:29 Temperature 98.1 F Pulse Rate 76 Respiratory Rate 16 Blood Pressure 116/67 Pulse Oximetry 96 Fetus (Single) Heart Rate Baseline: 140 Typing Section Chief Variability: Moderate (6-25) Monitor Accelerations: Present Monitor Decelerations: None Station: -2 Final Diagnosis (1) labor in third trimester: Status: Acute (2) Pulmonary embolism: Status: Acute Problem details: Diagnosed on February 2023. Total Time Spent Total Time Spent: 15 min.
--- NOTE | 2023-08-01 10:14 | PC.OBNST ---
NST Note NST Note Start: 07/31/23 16:59 Freq: ONCE Status: Active Protocol: Document 08/01/23 07:20 WK (Rec: 08/01/23 10:14 WK [id number]) NST Note 2 Para (# of births) 1 EDC 09/04/23 Gestational Age In Weeks & Days 35 Weeks & 1 Days High Risk Factors History of Labor/ Delivery Patient Presented with Complaint(s) of Contractions/cramping Reactive Yes RN Caren RNC Date 08/01/23 Reactive Yes RN Arlene Date 08/01/23 OB NST charge Yes Complete NST Note via Write Note Yes The provider's electronic signature indicates the NST is reactive/appropriate for gestational age. *Note to provider: If an addendum is required, open the patient's chart and click on the note under the Nurse/Allied Health tab.
[2023-08-02 16:59] LABS: Rapid Plasma Reagin (RPR) Non Reactive (Non Reactive)
== END 2023-08-01 07:30 | disposition home or self-care (01) ==
LOC: OB OUT 16:59 → OB 16:59 → OB OUT 21:30 → OB 08-01 07:36
PROVIDERS: PCP Family Medicine; Visit Provider Obstetrics & Gynecology
DX: O60.03 Preterm labor without delivery, third trimester (principal); Z3A.35 35 weeks gestation of pregnancy
CPT/HCPCS: 36415; 59025; 81003; 85025; 85384; 85520; 85610; 85730; 86592; 86850; 86900; 86901; 86922; 87210; G0463

== ENCOUNTER 2023-08-02 13:30 | Emergency (ER) | payer BC, SELFPAY ==
[2023-08-02 13:35] VITALS: BP 116/68; PULSE 77; RESP 16; O2SAT 99; BMI 26.0
--- NOTE | 2023-08-02 13:35 | CRLHL7_ITS ---
For Patients: As a result of the Century Cures Act, medical imaging exams and procedure reports are released immediately into your electronic medical record. You may view this report before your referring provider. If you have questions, please contact your health care provider. CLINICAL HISTORY: Severe headache in . TECHNIQUE: Standard helical CT image acquisition through the neck was performed after intravenous contrast bolus enhancement. 3D and MIP reconstructions were performed at a separate workstation and permanently archived. COMPARISON: None available. FINDINGS: The origins of the great vessels from the aortic arch are patent. The common carotid arteries are patent. No significant luminal stenoses of the proximal ICAs by NASCET criteria. The more distal cervical segments of the ICAs are patent. The origins and cervical segments of the vertebral arteries are patent. IMPRESSION: Patent cervical arterial vasculature without hemodynamically significant luminal stenosis. Please note that all CT scans at this facility use dose modulation, iterative reconstruction, and/or weight-based dosing when appropriate to reduce radiation dose to as low as reasonably achievable. Dictated by Jarrell Ortiz MD @ 08/03/2023 10:31:10 AM (Electronically Signed)
--- NOTE | 2023-08-02 13:35 | CRLHL7_ITS ---
For Patients: As a result of the Century Cures Act, medical imaging exams and procedure reports are released immediately into your electronic medical record. You may view this report before your referring provider. If you have questions, please contact your health care provider. CLINICAL HISTORY: Severe headache in . TECHNIQUE: Standard helical CT image acquisition through the head following the administration of intravenous contrast was performed. 3D and MIP reconstructions were performed at a separate workstation and permanently archived. COMPARISON: None available. FINDINGS: No intracranial proximal large vessel occlusion or flow-limiting luminal stenosis. No evidence of cerebral aneurysm. No findings to suggest an arterial-venous shunting lesion. The major dural venous sinuses and deep venous system are patent. IMPRESSION: No intracranial proximal large vessel occlusion, flow-limiting luminal stenosis, or cerebral aneurysm. Please note that all CT scans at this facility use dose modulation, iterative reconstruction, and/or weight-based dosing when appropriate to reduce radiation dose to as low as reasonably achievable. Dictated by Jarrell Ortiz MD @ 08/03/2023 10:34:07 AM (Electronically Signed)
--- NOTE | 2023-08-02 13:35 | CRLHL7_ITS ---
For Patients: As a result of the Century Cures Act, medical imaging exams and procedure reports are released immediately into your electronic medical record. You may view this report before your referring provider. If you have questions, please contact your health care provider. Indication: headache, 35wk , anticoagulated for PE Technique: CT of the head without contrast. Coronal and sagittal reformats. Bone and soft tissue windows. Comparison: No prior studies available for comparison at this institution. Findings: No acute intracranial hemorrhage or extra-axial collection. No evidence of acute cortical infarction. No mass effect or midline shift. Normal cerebral volume. The ventricles are normal in size, shape and contour. There is normal presley and white matter differentiation. The orbital contents are normal. No calvarial fractures. No lytic or sclerotic osseous lesions within the calvarium or skull base. Scalp and other imaged soft tissue structures are normal. Mastoid air cells are clear. Moderate mucosal thickening in the left maxillary sinus. Moderate mucosal thickening in the right frontal sinus and left sphenoid sinus. Mild mucosal thickening in the left frontal sinus. Impression: 1. No acute intracranial abnormality. 2. Moderate mucosal thickening in the left maxillary sinus. Moderate mucosal thickening in the right frontal sinus and left sphenoid sinus. Mild mucosal thickening in the left frontal sinus. Please note that all CT scans at this facility use dose modulation, iterative reconstruction, and/or weight-based dosing when appropriate to reduce radiation dose to as low as reasonably achievable. Dictated by Warner Renteria MD @ 08/02/2023 2:47:40 PM (Electronically Signed)
--- NOTE | 2023-08-02 13:42 | ED.GENADULT ---
HPI - General Adult General Date Seen: 08/02/23 Chief complaint: Headache/Migraine Stated complaint: Headache Time Seen by Provider: 08/02/23 13:30 Source: patient, RN notes reviewed, old records reviewed and other Mode of arrival: ambulatory Limitations: no limitations History of Present Illness HPI narrative: Patient is a 28-year-old woman who is 35 weeks . has been complicated by pulmonary embolism for which she has been treated with Lovenox. She was admitted to the hospital, discharged yesterday and Lovenox held due to labor. She says last night at around 9:00 p.m. she developed headache which has been persistent since then. It is occipital and worse when she lays down. No fevers, vomiting or neurologic complaints. Presented to labored and delivery, evaluated there without any related findings and sent here for further evaluation of her headache. She does get headaches sometimes but this 1 feels different/worse than usual. Related Data Home Medications ?Medication ?Instructions ?Recorded ?Confirmed vitamin#30 30 mg iron-10 1 cap PO DAILY 05/26/22 07/31/23 mg iron-folic acid 1 mg-omg3 capsule enoxaparin 100 mg/mL subcutaneous 100 mg subcut Q12H 06/08/23 07/31/23 syringe Previous Rx's ?Medication ?Instructions ?Recorded hydrocortisone 2.5 % topical cream 1 applic CA BID-QID PRN 01/26/23 with perineal applicator hemorrhoids #30 grams (Anusol-HC) Allergies Allergy/AdvReac Type Severity Reaction Status Date / Time No Known Allergies Allergy Unknown Verified 08/02/23 13:35 Review of Systems Status of ROS: Reports: 10 or more systems reviewed and unremarkable except as noted in History and below [facility] Medical History Low back pain ?M54.50 - Low back pain, unspecified (ICD-10) History of delivery ?Z87.51 - Personal history of pre-term labor (ICD-10) Obstetric vaginal laceration with second degree perineal laceration ?O70.1 - Second degree perineal laceration during delivery (ICD-10) Inflamed external hemorrhoid ?K64.4 - Residual hemorrhoidal skin tags (ICD-10) Chest wall pain ?R07.89 - Other chest pain (ICD-10) Surgical History History of third molar tooth extraction (2016) ?K08.409 - Partial loss of teeth, unspecified cause, unspecified class (ICD-10) Family History Mother Hx of blood clots Family/Other Heart disease Breast cancer, Onset Age: 90 Paternal Grandmother Pulmonary hypertension Diabetes Paternal Grandfather Lung cancer Diabetes 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: , 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, 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 Very rare alcohol use Exercise 3 times a week, HIIT 30 minutes What is your current living situation?: I presently have a place to live Problems where you live: no known problems Problems where you live details: N/A In the past 12 months, utilities in danger of being shut off: no In past 12 months, lack of transportation kept you from medical appts, meetings, work, or getting things needed for daily living: no In the past 12 mos, have been you worried that your food would run out before you had money to buy more?: never true In the past 12 mos, the food you bought just didn't last and you didn't have money to buy more?: never true Smoking Status: Never smoker Do you use any of these nicotine containing products: None Second hand tobacco smoke exposure: No How often do you have a drink containing alcohol: never How often do you have six or more drinks on one occasion: Never AUDIT-C Alcohol total score: 0 Non-prescribed substance use: denies use How often does anyone, including family, friends and others, physically hurt you: never How often does anyone, including family, friends and others, insult or talk down to you: never How often does anyone, including family, friends and others, threaten you with harm: never How often does anyone, including family, friends and others, scream or curse at you: never Little interest or pleasure in doing things: not at all Feeling down, depressed, or hopeless: not at all service: No Exam Narrative: Exam Narrative: Vital signs as noted above. In general, an alert, well-appearing patient. Head: Normocephalic, atraumatic. Eyes: Pupils are equal reactive. Extraocular movements are full. Conjunctivae are normal. ENT: Mucous membranes are moist. Throat is normal. Neck: Supple without lymphadenopathy. Heart: Regular rate and rhythm. No murmur or rub. Lungs: Clear bilaterally. No increased work of breathing, crackles or wheezes. Abdomen: Gravid, nontender. Extremities: Well perfused. No edema. No calf tenderness. Pulses intact. Neurologic: Patient is alert and oriented to person and place. Speech is fluent. Face is symmetric. Moves all extremities equally. Affect: Normal. Skin: Warm and dry. Well perfused. Const: Vital Signs, click to edit/add: Vital Signs - 24 hr 08/02/23 13:35 Pulse Rate [Pulse Oximeter] 77 Respiratory Rate 16 Blood Pressure [Le ft Upper Arm] 116/68 Pulse Oximetry 99 Oxygen Delivery Me thod Room Air Documenting provider has reviewed patient's vital signs: yes Course Course ED Course: Diagnostic considerations include subarachnoid hemorrhage, venous sinus thrombosis, infection, migraine or tension headache among others. She had Reglan and Benadryl in labor and delivery along with 500 mL of normal saline. Headache is perhaps a little bit better but not significantly so. CT of the head without contrast and CT angiogram of the head and neck are ordered and pending. Headache is somewhat improved though not completely resolved after medications. She had a CT of the head which by my review is negative for acute findings, final radiology read as follows:Findings: No acute intracranial hemorrhage or extra-axial collection. No evidence of acute cortical infarction. No mass effect or midline shift. Normal cerebral volume. The ventricles are normal in size, shape and contour. There is normal presley and white matter differentiation. The orbital contents are normal. No calvarial fractures. No lytic or sclerotic osseous lesions within the calvarium or skull base. Scalp and other imaged soft tissue structures are normal. Mastoid air cells are clear. Moderate mucosal thickening in the left maxillary sinus. Moderate mucosal thickening in the right frontal sinus and left sphenoid sinus. Mild mucosal thickening in the left frontal sinus. Impression: 1. No acute intracranial abnormality. 2. Moderate mucosal thickening in the left maxillary sinus. Moderate mucosal thickening in the right frontal sinus and left sphenoid sinus. Mild mucosal thickening in the left frontal sinus. She did just complete amoxicillin for sinusitis recently, does not have any acute sinus symptoms today. Final radiology read of CT angiogram as follows:Preliminary Report: 1. No evidence of proximal artery occlusion, high grade stenosis, aneurysm, dissection, or vascular malformation. 2. Final report per neurointerventional radiology service. Overall she feels comfortable going home. She says she has just a little more cautious then she would otherwise be because of the recent diagnosis of PE. She says she just would like to go home and sleep and she thinks the headache will go away. She is scheduled for follow-up on , return to the ER at any time in the interim for acute worsening, new symptoms such as fever, vomiting, confusion etcetera. Vital Signs Vital signs: Initial Vital Signs Pulse Rate 77 08/02/23 13:35 Respiratory Rate 16 08/02/23 13:35 Blood Pressure 116/68 08/02/23 13:35 Blood Pressure Mean 84 08/02/23 13:35 Blood Pressure Position Semi-Fowlers 08/02/23 13:35 Pulse Oximetry 99 08/02/23 13:35 Oxygen Delivery Method Room Air 08/02/23 13:35 Vital Signs Pulse Rate 77 08/02/23 13:35 Respiratory Rate 16 08/02/23 13:35 Blood Pressure 116/68 08/02/23 13:35 Pulse Oximetry 99 08/02/23 13:35 Oxygen Delivery Method Room Air 08/02/23 13:35 Pulse Rate 77 08/02/23 13:35 Respiratory Rate 16 08/02/23 13:35 Blood Pressure 116/68 08/02/23 13:35 Pulse Oximetry 99 08/02/23 13:35 Oxygen Delivery Method Room Air 08/02/23 13:35 Medications Administered Medications: Discontinued Medications Generic Name Dose Route Start Last Admin Trade Name Freq PRN Reason Stop Dose Admin Ondansetron HCl 4 mg 08/02/23 13:44 08/02/23 13:51 Ondansetron 2 Mg/Ml Inj IVP 08/02/23 13:45 Not Given ONCE ONE Discharge Plan Discharge Clinical Impression: Headache, Patient Disposition: Home, Self-Care Condition: Improved Instructions: Acute Headache (ED) Additional Instructions: Continue with Tylenol, Zofran if needed. Follow up on as planned. Return to the ER at any time for acute worsening, new symptoms such as fever, vomiting, confusion etcetera. Prescriptions: No Action PNV #[id number] 30 mg iron-10 mg iron-1 mg capsule 1 cap PO DAILY hydrocortisone [Anusol-HC] 2.5 % cream with perineal applicator 1 applic CA BID-QID PRN (Reason: hemorrhoids) Qty: 30 0RF enoxaparin 100 mg/mL syringe 100 mg subcut Q12H Follow Up/Referrals: Marybeth Andrew MD [Primary Care Provider] - Stand Alone Forms: [facility] Info Instructions
--- OUTSIDE RECORDS SUMMARY | 2023-08-02 13:54 | XMS_ITS | Encounter Summary ---
Author Organization [place] Address [address] [facility] [place] [address] Care Team Providers Care Elementary Secretary Name Role Phone No Ref-Primary, Physician Primary Care Provider Oleg Aparicio PA-C Unavailable [phone] Ana Oreilly MD Unavailable [phone] Encounter Details Date Type Department Care Team (Late st Contact Info) Description 06/22/2023 2:00 PM CDT Lab [facility] [address] [facility] [address] [place] [address] Pulmonary embolism affecting in second [...] LAB - BLOOD ORDERABL ES [facility] Lab [address] [facility], [address] [place] [id number] documented in this encounter Visit Diagnoses Diagnosis Pulmonary embolism affecting in second trimester documented in this encounter Care Teams Elementary Secretary Relationship Specialty Start Date End Date No Ref-Primary, Physician PCP - General 03/31/23 Oleg Aparicio PA-C [address] [facility] [address] [place], [place] [id number] Assigned Cancer Care Provider 05/06/23 Ana Oreilly MD [address] [place] [address] Assigned OBGYN Provider 05/06/23 documented as of this encounter
--- OUTSIDE RECORDS SUMMARY | 2023-08-02 13:54 | XMS_ITS | Encounter Summary ---
Author Organization [place] Address [address] [facility] [place] [address] Care Team Providers Care Concrete Boom Operator Name Role Phone No Ref-Primary, Physician Primary Care Provider Oleg Aparicio PA-C Unavailable [phone] Ana Oreilly MD Unavailable [phone] Encounter Details Date Type Department Care [...] on filedocumented in this encounter Care Teams Concrete Boom Operator Relationship Specialty Start Date End Date No Ref-Primary, Physician PCP - General 03/31/23 Oleg Aparicio PA-C [address] [place] [address] [address] [place] [address] Assigned Cancer Care Provider 05/06/23 Ana Oreilly MD [address] [facility] [address] [place] [address] Assigned OBGYN Provider 05/06/23 documented as of this encounter
--- OUTSIDE RECORDS SUMMARY | 2023-08-02 13:54 | XMS_ITS | Encounter Summary ---
Author Organization [place] Address [address] [facility] [place] [address] Care Team Providers Care Textile Machine Mechanic Name Role Phone No Ref-Primary, Physician Primary Care Provider Oleg Aparicio PA-C Unavailable [phone] Ana Oreilly MD Unavailable [phone] Reason for Visit * Reason Comments Deep Vein Thrombosis Encounter Details Date Type Department Care Team (Late st Contact Info) Description 07/04/2023 2:30 PM CDT Office Visit [facility] [address] [place] [address] Oleg Aparicio PA-C [address] [place] [address] Pulmonary embolism affecting in second [...] included. [facility] [address] [place] [address] Main: [phone], Patient seen at: [facility] at [address] [place] [address] Outpatient Visit Note: Patient: Gabrielle Mcmahon : 1995 DEBORAH: July 04, 2023 Location of this public relations writer at the time of this clinic visit was conducted: [facility]. Location of the patient at the time of this clinic visit was conducted: [facility] [...] up. She was last seen by this public relations writer back on 04/28/2023. Thrombosis History Summary: [...] both lower extremities. 03/08/2023, she presented to [facility] emergency department with chest pain. [...] today, the emergency department physician did call [facility] and consult them about the [...] History: 04/28/2023, she established care with this public relations writer and I determined that her pulmonary [...] and PmHx: All are reviewed by this public relations writer today via electronic medical records Social [...] venous thromboembolism. Oleg Aparicio PA-C, [employer] Physician Spool Fixer [facility]. The [...] incidental documented in this encounter Care Teams Textile Machine Mechanic Relationship Specialty Start Date End Date No Ref-Primary, Physician PCP - General 03/31/23 Oleg Aparicio PA-C [address] [place], [place] [id number] Assigned Cancer Care Provider 05/06/23 Ana Oreilly MD [address] [place], [place] [address] Assigned OBGYN Provider 05/06/23 documented as of this encounter
--- OUTSIDE RECORDS SUMMARY | 2023-08-02 13:54 | XMS_ITS | Clinical Summary ---
Author Organization [place] Address [address] [place] [place] [address] Care Team Providers Care Batchmaker Name Role Phone No Ref-Primary, Physician Primary Care Provider Oleg Aparicio PA-C Unavailable [phone] Ana Oreilly MD Unavailable [phone] Allergies No known active allergies Medications [...] Type Department Care Team Description 07/28/2023 Telephone [facility] [address] [place] [phone] Jerry Louie Call To Schedule Appointment (Talked with Pt- miguel ptOelg advised to F/U one month after child is born. Will call back to schedule.) 07/15/2023 6:03 PM CDT - 07/18/2023 10:20 AM CDT Hospital Encounter [facility] [address] [phone] Moira Roa MD Discharge Disposition: Home or Self Care 07/15/2023 Hospital Encounter [facility] [address] [phone] Moira Roa MD 07/15/2023 Telephone [facility] for [facility]ot[facility] Disorders [address] [place] [phone] Oleg Aparicio, PA-C CONSENT (Called pt to receive verbal consent to fax to another health office on her care team. LVM to CB.) 07/04/2023 2:30 PM CDT Office Visit [facility] for [facility] Disorders [address] [place] [phone] Oleg Aparicio, PA-C Pulmonary embolism affecting in second trimester (Primary Dx); Family history of blood clots; 31 weeks gestation of 07/04/2023 Travel 06/22/2023 2:00 PM CDT Lab [facility] [address] [place] [address] Pulmonary embolism affecting in second trimester 06/22/2023 MyC Medical Advice [facility] for [facility] Disorders [address] [place] [phone] Oleg Aparicio, PA-C 06/21/2023 10:00 AM CDT Office Visit [facility] [place] [address] [place] [address] Ori Adame MD Encounter for ultrasound to check growth (Primary Dx) 06/21/2023 9:30 AM CDT - 06/21/2023 11:59 PM CDT Hospital Encounter [place] [address] [place] [phone] Ori Adame MD Encounter for ultrasound to check growth Discharge Disposition: Home or Self Care 06/21/2023 Travel 05/31/2023 11:30 AM CDT Office Visit [facility] [place] [address] [place] [phone] Ori Adame MD Encounter for ultrasound to check growth (Primary Dx) 05/31/2023 10:45 AM CDT - 05/31/2023 11:59 PM CDT Hospital Encounter [facility] [place] [address] [place] [phone] Ori Adame MD Encounter for ultrasound to assess growth Discharge Disposition: Home or Self Care 05/31/2023 Travel 05/10/2023 10:00 AM CDT Office Visit [facility] [place] [address] [place] [phone] Ori Adame MD Encounter for follow-up ultrasound of anatomy (Primary Dx); History of delivery, currently ; Encounter for ultrasound to assess growth 05/10/2023 9:28 AM CDT - 05/10/2023 11:59 PM CDT Hospital Encounter [facility] [place] [address] [place] [phone] Ori Adame MD Pulmonary embolism affecting in second trimester Discharge Disposition: Home or Self Care 05/10/2023 Travel 05/03/2023 1:00 PM CDT [facility] [address] [place] [address] Pulmonary embolism affecting in second [...] CDT Pulmonary embolism affecting in second trimester [facility] US COMPREHENSIVE SINGLE F/U Routine 06/21/2023 10:50 AM CDT Encounter for ultrasound to check growth [facility] US COMPREHENSIVE SINGLE F/U Routine 05/31/2023 11:40 AM CDT Encounter for ultrasound to assess growth [facility] US COMPREHENSIVE SINGLE F/U Routine 05/10/2023 [...] * Platelet count (07/18/2023 8:14 AM CDT) [facility] Platelet Count 170 150 - 450 10e3/uL 07/18/2023 8:32 AM CDT LABORATORY Blood STRUCTURE OF RIGHT UPPER LIMB / Unknown Venipuncture / Unknown 07/18/2023 8:14 AM CDT 07/18/2023 8:27 AM CDT Moira Roa MD LAB - BLOOD ORDERABL ES Performing Organization Address [facility] Co de Phone Number LABORATORY [facility] [address] floor, [address], [place] [address], [facility] [phone] * Rupture of Membranes by ROM Plus [...] BODY FLUIDS OR DERABLES Performing Organization Address [facility] Co de Phone Number LABORATORY [facility] [address] 1[address] floor, [address], [place] [address], [facility] [phone] * (ABNORMAL) Wet preparation (07/17/2023 6:52 PM [...] MD LAB - MICRO GENERAL ORDERABLES LABORATORY [facility] [address] floor, [address] [place] [address], [facility] [phone] * (ABNORMAL) CBC with platelets and differential [...] MD LAB - BLOOD ORDERABL ES LABORATORY [facility] [address] floor, [address] [place] [address], [facility] [phone] * Adult Type and Screen (07/15/2023 9:31 PM CDT) ABO/RH(D) O POS 07/15/2023 7:26 PM CDT BLOOD BANK Antibody Screen Negative Negative 07/15/2023 7:26 PM CDT BLOOD BANK SPECIMEN EXPIRATION DATE [id number] 07/15/2023 7:26 PM CDT BLOOD BANK Blood STRUCTURE OF RIGHT UPPER LIMB / Unknown Venipuncture / Unknown 07/15/2023 9:31 PM CDT 07/15/2023 9:34 PM CDT Moira Roa MD LAB - BLOOD BANK MONISHA T ORDER BLOOD BANK [address] [place] [address], [facility] * (ABNORMAL) Creatinine (07/15/2023 9:31 PM CDT) Creatinine 0.47(L) 0.51 - 0.95 mg/dL 07/15/2023 9:55 PM CDT LABORATORY GFR Estimate >90 >60 mL/min/1.7 3m2 07/15/2023 9:55 PM CDT LABORATORY Blood STRUCTURE OF RIGHT UPPER LIMB / Unknown Venipuncture / Unknown 07/15/2023 9:31 PM CDT 07/15/2023 9:34 PM CDT Moira Roa MD LAB - BLOOD ORDERABL ES Performing Organization Address City/[facility]/ZIP Co de Phone Number LABORATORY [facility] [address], [address] [place] [address], [facility] [phone] * (ABNORMAL) UA with Microscopic reflex to Culture (07/15/2023 6:45 PM CDT) Color Urine Straw Colorless, Straw, Light Yellow, Yellow 07/15/2023 7:04 PM CDT LABORATORY Appearance Urine Clear Clear 07/15/19 7:04 PM CDT LABORATORY Glucose Urine Negative Negative mg/dL 07/15/2023 7:04 PM CDT LABORATORY Bilirubin Urine Negative Negative 7:04 PM CDT LABORATORY Ketones Urine 40(A) Negative mg/dL 07/15/2023 7:04 PM CDT LABORATORY Specific [place] Urine 1.009 1.003 - 1.035 07/15/2023 7:04 [...] MD LAB - URINE ORDERABL ES LABORATORY [facility] [address] 1[address] floor, [address] [place] [address], [facility] [phone] * Chlamydia trachomatis/Neisseria gonorrhoeae by PCR (07/15/2023 6:23 PM CDT) Pathologist [facility] Chlamydia Trachomatis Negative Negative 07/16/2023 12:02 PM CDT [facility] Comment: Negative for C. trachomatis rRNA by investor relations associate mediated amplification. A negative result by investor relations associate mediated amplification does not preclude the presence of infection because results are dependent on proper and adequate collection, absence of inhibitors and sufficient rRNA to be detected. Neisseria gonorrhoeae Negative Negative 07/16/2023 12:02 PM CDT [facility] Comment:Negative for N. gono rrhoeae rRNA by investor relations associate mediated amplification. A negative result by investor relations associate mediated amplification does not preclude the presence of C. trachomatis infection because results are dependent on proper and adequate collection, absence of inhibitors and sufficient rRNA to be detected. Urine VOIDED URINE SPECIMEN / Unknown Non-blood Collection / Unknown 07/15/2023 6:23 PM CDT 07/15/2023 6:30 PM CDT Moira Roa MD LAB - MICRO GENERAL ORDERABLES Performing Organization Address City/[facility]/ZIP Co de Phone Number [facility]ORAT[facility] Inf. Diseases Diag. Lab [address], [address] [place] [address] * Group B Streptococcus (External Result) (07/15/2023) Group B Streptococcus (External) Negative Negative EXTERNAL LAB Patient Reported LAB - HIM EXTERNAL R ESULT Performing Organization Address [facility] Co de Phone Number EXTERNAL LAB [...] - BLOOD ORDERABL ES Performing Organization Address [facility] Co de Phone Number [facility] LABORATORY [facility] [place] Core Lab [address] [facility], [address] [place] [address], [facility] * [facility] US Comprehensive Single F/U (06/21/2023 10:50 [...] ? Study Date: ??06/21/2023 9:50am Pat. NO: ??[id number] ?Referring ??: TRISTA MELLO Site: ??[facility] ? Show Host/Hostess: Chanda Lazo RDMS : ??1995 ?Age: ?? [...] 2 lb 12 ?oz EFW by ?Hadlock ([id number]) Head / Face / Neck Biometry: Bandoleer Straightener Stamper ? 4.9 ? mm CM ?5.5 ? mm ANATOMY ----- The following structures appear normal: Head / Neck ? Cranium. Head size. Head shape. Lateral ventricles. Midline falx. Cerebellum. Cisterna magna. Thalami. Face ? Lips. Profile. Nose. Heart / Thorax ?4-chamber view. RVOT view. LVOT view. 6-nrtksw-ygcplmi view. ? Diaphragm. Abdomen ? Stomach. Kidneys. [...] [place] Study Date: 06/21/2023 9:50am Pat. NO: [id number] Referring MD: TRISTA MELLO Site: [facility] Show Host/Hostess: Chanda Lazo RDMS : 1995 Age: 28 [...] 2 lb 12 oz EFW by Hadlock ([id number]) Head / Face / Neck Biometry: Bandoleer Straightener Stamper 4.9 mm CM 5.5 mm ANATOMY ----- The following structures appear normal: Head / Neck Cranium. Head size. Head shape.Lateral ventricles. Midline falx. Cerebellum. Cisterna magna. Thalami. Face Lips. Profile. Nose. Heart / Thorax 4-chamber view. RVOT view. LVOT view.9-hygomf-xgyatsx view. Diaphragm. Abdomen Stomach. Kidneys. Bladder. Spine [...] fluid volume appeared normal. Ori Adame MD [facility] ORDERABL ES * Cardiolipin Makenzie IgG [...] CORE/PROT/ENDO [facility] Specialty Core/Prot/Endo [address] [facility], [address] * Beta 2 Glycoprotein 1 Antibody IgM (05/03/2023 1:03 PM CDT) Beta 2 Glycoprotein 1 Antibody IgM <2.4 <7.0 U/mL 05/04/2023 10:34 AM CDT SPECIALTY CORE/PROT/END O Comment:Negative Blood BLOOD SPECIMEN / Unknown Venipuncture / Unknown 05/03/2023 1:03 PM CDT 05/03/2023 1:03 PM CDT Oleg Aparicio PA-C LAB - BLOOD ORDERABL ES [facility] SPECIALTY CORE/PROT/ENDO [facility] Specialty Core/Prot/Endo [address] [facility] [address], [address] * Beta 2 Glycoprotein 1 Antibody IgG (05/03/2023 1:03 PM CDT) Beta 2 Glycoprotein 1 Antibody IgG <0.8 <7.0 U/mL 05/04/2023 10:34 AM CDT SPECIALTY CORE/PROT/END O Comment:Negative Blood BLOOD SPECIMEN / Unknown Venipuncture / Unknown 05/03/2023 1:03 PM CDT 05/03/2023 1:03 PM CDT Oleg Aparicio PA-C LAB - BLOOD ORDERABL ES [facility] SPECIALTY CORE/PROT/ENDO UM Specialty Core/Prot/Endo [address] [facility] [address] [facility], [address] * (ABNORMAL) Lupus Anticoagulant Panel (05/03/2023 [...] of an antiphospholipid syndrome, recommend anticardiolipin and iqla-7-tmncojkccvr n (IgG and IgM) antibody tests. Recommend [...] UM SPECIAL COAGULATION [facility] Special Coagulation [address] [facility], [address] [place] [phone] * HIV-1 Antibody (External Result) (01/26/2023) HIV 1&2 Antibody (External) Negative Nonreactive EXTERNAL LAB Patient Reported LAB - HIM EXTERNAL R ESULT EXTERNAL LAB External Lab from Last 3 Months or Most Recently Relevant to Health Maintenance Advance Directives For more information, please contact: [phone] * Full Code (Latest Code Status on File) Date Activated Date Inactivated Comments 07/15/2023 7:25 PM 07/18/2023 1:55 PM All basic an d advanced life-sustaining interventions are performed as appropriate Question Answer Comments Code status determined by: Discussion with parase nt/ legal decision maker Care Teams Batchmaker Relationship Specialty Start Date End Date No Ref-Primary, Physician PCP - General 03/31/23 Oleg Aparicio PA-C [address] [facility] [address] [place] [address] Assigned Cancer Care Provider 05/06/23 Ana Oreilly MD [address] [place] [address] Assigned OBGYN Provider 05/06/23
--- OUTSIDE RECORDS SUMMARY | 2023-08-02 13:54 | XMS_ITS | Encounter Summary ---
Author Organization [place] Address [address] [facility] [place] [address] Care Team Providers Care Campaign Management Senior Manager Name Role Phone No Ref-Primary, Physician Primary Care Provider Oleg Aparicio PA-C Unavailable [phone] Ana Oreilly MD Unavailable [phone] Reason for Visit * Reason Onset Date Comments Call To Schedule Appointment 07/28/2023 Mariusz duque with Pt- per ptOleg advised to F/U one month after child is born. Will call back to schedule. Encounter Details Date Type Department Care Team (Late st Contact Info) Description 07/28/2023 Telephone [facility] [address] [place] [address] Resource, Ur Hemo Call To [...] on filedocumented in this encounter Care Teams Campaign Management Senior Manager Relationship Specialty Start Date End Date No Ref-Primary, Physician PCP - General 03/31/23 Oleg Aparicio, PA-C [address] [place] [phone] Assigned Cancer Care Provider 05/06/23 Ana Oreilly MD [address] [place] [phone] Assigned OBGYN Provider 05/06/23 documented as of this encounter
--- OUTSIDE RECORDS SUMMARY | 2023-08-02 13:54 | XMS_ITS | Encounter Summary ---
Author Organization [place] Address [address] [place] [address] Care Team Providers Care Wireless Sales Expert Name Role Phone No Ref-Primary, Physician Primary Care Provider Oleg Aparicio PA-C Unavailable [phone] Ana Oreilly MD Unavailable [phone] Reason for Visit * Reason Onset Date Comments CONSENT 07/15/2023 Called pt to rec eive verbal consent to fax to another health office on her care team. LVM to CB. Encounter Details Date Type Department Care Team (Late st Contact Info) Description 07/15/2023 Telephone [facility] [address] [place] [address] Oleg Aparicio PA-C [address] [place] [address] CONSENT (Called pt to receive [...] on filedocumented in this encounter Care Teams Wireless Sales Expert Relationship Specialty Start Date End Date No Ref-Primary, Physician PCP - General 03/31/23 Oleg Aparicio, PABrightC [address] [place], [place] [address] Assigned Cancer Care Provider 05/06/23 Ana Oreilly MD [address] [place], [place] [address] Assigned OBGYN Provider 05/06/23 documented as of this encounter
--- OUTSIDE RECORDS SUMMARY | 2023-08-02 13:54 | XMS_ITS | Encounter Summary ---
Author Organization [place] Address [address] [facility] [place] [address] Care Team Providers Care Bow Making Machine Operator Name Role Phone No Ref-Primary, Physician Primary Care Provider Oleg Aparicio PA-C Unavailable [phone] Ana Oreilly MD Unavailable [phone] Encounter Details Date Type Department Care Team (Late st Contact Info) Description 07/15/[address] [facility] [address] [phone] Moira Roa MD [address] [phone] 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 Tobacco Use Types Packs/Day Years [...] on filedocumented in this encounter Care Teams Bow Making Machine Operator Relationship Specialty Start Date End Date No Ref-Primary, Physician PCP - General 03/31/23 Oleg Aparicio, PABrightC [address] [place] [address] [address] [place], [place] [address] Assigned Cancer Care Provider 05/06/23 Ana Oreilly MD [address] [facility] [address] [place], [place] [phone] Assigned OBGYN Provider 05/06/23 documented as of this encounter
--- OUTSIDE RECORDS SUMMARY | 2023-08-02 13:54 | XMS_ITS | Referral Summary ---
Author Organization [place] Address [address] [place] [address] Care Team Providers Care Revenue Stamper Name Role Phone No Ref-Primary, Physician Primary Care Provider Oleg Aparicio PA-C Unavailable [phone] Ana Oreilly MD Unavailable [phone] Encounters Date Type Department Care Team Description 07/28/2023 Telephone [facility] [address] [place] [address] Resource, Ur Hemo Call To Schedule Appointment (Talked with Pt- per ptOleg advised to F/U one month after child is born. Will call back to schedule.) 07/15/2023 6:03 PM CDT - 07/18/2023 10:20 AM CDT Hospital Encounter [facility] [address] [phone] Moira Roa MD Discharge Disposition: Home or Self Care 07/15/2023 Hospital Encounter [facility] [address] [phone] Moira Roa MD 07/15/2023 Telephone [facility] [address] [place] [address] Oleg Aparicio, PALeeann CONSENT (Called pt to receive verbal consent to fax to another health office on her care team. LVM to CB.) 07/04/2023 Travel 07/04/2023 2:30 PM CDT Office Visit [facility] [address] [place] [address] Oleg Aparicio PA-C Pulmonary embolism affecting in second trimester (Primary Dx); Family history of blood clots; 31 weeks gestation of 06/22/2023 2:00 PM CDT Lab [facility] [address] [place] [address] Pulmonary embolism affecting in second trimester 06/22/2023 MyC Medical Advice [facility] [address] [place] [address] Oleg Aparicio PA-C 06/21/2023 Travel 06/21/2023 10:00 AM CDT Office Visit [facility] [address] [place] [phone] Ori Adame MD Encounter for ultrasound to check growth (Primary Dx) 06/21/2023 9:30 AM CDT - 06/21/2023 11:59 PM CDT Hospital Encounter [facility] [address] [place] [address] Ori Adame MD Encounter for ultrasound to check growth Discharge Disposition: Home or Self Care 05/31/2023 Travel 05/31/2023 11:30 AM CDT Office Visit [facility] [address] [place] [phone] Ori Adame MD Encounter for ultrasound to check growth (Primary Dx) 05/31/2023 10:45 AM CDT - 05/31/2023 11:59 PM CDT Hospital Encounter [facility] [address] [place] [phone] Ori Adame MD Encounter for ultrasound to assess growth Discharge Disposition: Home or Self Care 05/10/2023 Travel 05/10/2023 10:00 AM CDT Office Visit [facility] [address] [place] [address] Ori Adame MD Encounter for follow-up ultrasound of anatomy (Primary Dx); History of delivery, currently ; Encounter for ultrasound to assess growth 05/10/2023 9:28 AM CDT - 05/10/2023 11:59 PM CDT Hospital Encounter [facility] [address] [place] [address] Ori Adame MD Pulmonary embolism affecting in second trimester Discharge Disposition: Home or Self Care 05/03/2023 1:00 PM CDT Lab [facility] [address] [place] [address] Pulmonary embolism affecting in second [...] CDT Pulmonary embolism affecting in second trimester [facility] US COMPREHENSIVE SINGLE F/U Routine 06/21/2023 10:50 AM CDT Encounter for ultrasound to check growth [facility] US COMPREHENSIVE SINGLE F/U Routine 05/31/2023 11:40 AM CDT Encounter for ultrasound to assess growth [facility] US COMPREHENSIVE SINGLE F/U Routine [...] Roa MD LAB - BLOOD ORDERABL ES [facility] [address] 1st floor, Room [address] [place] [address], [facility] [phone] * Rupture of Membranes by ROM Plus [...] LAB - BODY FLUIDS OR DERABLES [facility] [address] 1[address] floor, [address] [place] [address], [facility] [phone] * (ABNORMAL) Wet preparation (07/17/2023 6:52 PM CDT) [facility] Trichomonas Absent Absent [place] 07/17/2023 7:18 PM [...] - MICRO GENERAL ORDERABLES Performing Organization Address City/State/[facility] Co de Phone Number LABORATORY [facility] [address] 1st floor, [address] [place] [address], [facility] [phone] * (ABNORMAL) CBC with platelets and differential (07/15/2023 9:31 PM CDT) [facility] WBC Count 10.6 4.0 - 11.0 10e3/uL [...] MD LAB - BLOOD ORDERABL ES LABORATORY [facility] [address] 1st floor, [address] [place] [address], [facility] [phone] * Adult Type and Screen (07/15/2023 9:31 PM CDT) ABO/RH(D) O POS 07/15/2023 7:26 PM CDT BLOOD BANK Antibody Screen Negative Negative 07/15/2023 7:26 PM CDT BLOOD BANK SPECIMEN EXPIRATION DATE [id number] 07/15/2023 7:26 PM CDT BLOOD BANK Blood STRUCTURE OF RIGHT UPPER LIMB / Unknown Venipuncture / Unknown 07/15/2023 9:31 PM CDT 07/15/2023 9:34 PM CDT Moira Roa MD LAB - BLOOD BANK MONISHA T ORDER BLOOD BANK [address] [place] [address], [facility] * (ABNORMAL) Creatinine (07/15/2023 9:31 PM CDT) Creatinine 0.47(L) 0.51 - 0.95 mg/dL 07/15/2023 9:55 PM CDT LABORATORY GFR Estimate >90 >60 mL/min/1.7 3m2 07/15/2023 9:55 PM CDT LABORATORY Blood STRUCTURE OF RIGHT UPPER LIMB / Unknown Venipuncture / Unknown 07/15/2023 9:31 PM CDT 07/15/2023 9:34 PM CDT Moira Roa MD LAB - BLOOD ORDERABL ES LABORATORY [facility] [address] 1st floor, [address] [place] [address], [facility] [phone] * (ABNORMAL) UA with Microscopic reflex to Culture (07/15/2023 6:45 PM CDT) Color Urine Straw Colorless, Straw, Light Yellow, Yellow 07/15/2023 7:04 PM CDT LABORATORY Appearance Urine Clear Clear 07/15/19 7:04 PM CDT LABORATORY Glucose Urine Negative Negative mg/dL 07/15/2023 7:04 PM CDT LABORATORY Bilirubin Urine Negative Negative 7:04 PM CDT LABORATORY Ketones Urine 40(A) Negative mg/dL 07/15/2023 7:04 PM CDT LABORATORY Specific [place] Urine 1.009 1.003 - 1.035 07/15/2023 7:04 [...] MD LAB - URINE ORDERABL ES LABORATORY [facility] [address] 1st floor, [address] [place] [address], [facility] [phone] * Chlamydia trachomatis/Neisseria gonorrhoeae by PCR (07/15/2023 6:23 PM CDT) Chlamydia Trachomatis Negative Negative 07/16/2023 12:02 PM CDT [facility] Comment: Negative for C. trachomatis rRNA by qi specialist mediated amplification. A negative result by qi specialist mediated amplification does not preclude the presence of infection because results are dependent on proper and adequate collection, absence of inhibitors and sufficient rRNA to be detected. Neisseria gonorrhoeae Negative Negative 07/16/2023 12:02 PM CDT [facility] Comment:Negative for N. gono rrhoeae rRNA by qi specialist mediated amplification. A negative result by qi specialist mediated amplification does not preclude the presence of C. trachomatis infection because results are dependent on proper and adequate collection, absence of inhibitors and sufficient rRNA to be detected. Urine VOIDED URINE SPECIMEN / Unknown Non-blood Collection / Unknown 07/15/2023 6:23 PM CDT 07/15/2023 6:30 PM CDT Moira Roa MD LAB - MICRO GENERAL ORDERABLES [facility] Inf. Diseases Diag. Lab [address] [facility], [address] [place] [phone] * Group B Streptococcus (External Result) (07/15/2023) Pathologist [facility] Group B Streptococcus (External) Negative Negative EXTERNAL LAB Patient Reported LAB - HIM EXTERNAL R ESULT EXTERNAL LAB External Lab * Low Molecular Weight Heparin Anti Xa Level (06/22/2023 1:58 PM CDT) Only the most recent of2 resultswithin the time period is included. Pathologist [facility] Anti Xa Low [...] LAB - BLOOD ORDERABL ES U LABORATORY [facility] [place] [facility] [address] [facility], [address] [place] [address], [facility] * [facility] Single F/U (06/21/2023 10:50 AM CDT) Only [...] ? Study Date: ??06/21/2023 9:50am Pat. NO: ??[id number] ?Referring ??MD: TRISTA MELLO Site: ??[facility] ? Onsite Health Coach: Chanda Violet [facility] : ??1995 ?Age: ?? 28 ----- [...] 2 lb 12 ?oz EFW by ?Hadlock ([id number]) Head / Face / Neck Biometry: Silk Soaker ? 4.9 ? mm CM ?5.5 ? mm ANATOMY ----- The following structures appear normal: Head / Neck ? Cranium. Head size. Head shape. Lateral ventricles. Midline falx. Cerebellum. Cisterna magna. Thalami. Face ? Lips. Profile. Nose. Heart / Thorax ?4-chamber view. RVOT view. LVOT view. 6-ulfhbv-yvropct view. ? Diaphragm. Abdomen ? Stomach. Kidneys. [...] [place] Study Date: 06/21/2023 9:50am Pat. NO: [id number] Referring MD: TRISTA MELLO Site: [facility] Onsite Health Coach: Chanda Lazo RDMS : 1995 Age: 28 [...] 2 lb 12 oz EFW by Hadlock ([id number]) Head / Face / Neck Biometry: Silk Soaker 4.9 mm CM 5.5 mm ANATOMY ----- The following structures appear normal: Head / Neck Cranium. Head size. Head shape.Lateral ventricles. Midline falx. Cerebellum. Cisterna magna. Thalami. Face Lips. Profile. Nose. Heart / Thorax 4-chamber view. RVOT view. LVOT view.9-lryjgd-oeaavay view. Diaphragm. Abdomen Stomach. Kidneys. Bladder. Spine [...] Ori Adame MD [facility] US ORDERABL ES * Cardiolipin Makenzie IgG [...] [facility] SPECIALTY CORE/PROT/ENDO [facility] Specialty Core/Prot/Endo [address] [facility] [address], [address] * Beta 2 Glycoprotein 1 Antibody IgM (05/03/2023 1:03 PM CDT) Beta 2 Glycoprotein 1 Antibody IgM <2.4 <7.0 U/mL 05/04/2023 10:34 AM CDT [facility] SPECIALTY CORE/PROT/END O Comment:Negative Blood BLOOD SPECIMEN / Unknown Venipuncture / Unknown 05/03/2023 1:03 PM CDT 05/03/2023 1:03 PM CDT Oleg OREILLY-C LAB - BLOOD ORDERABL ES [facility] SPECIALTY CORE/PROT/ENDO [facility] Specialty Core/Prot/Endo [address] [facility], [address] * Beta 2 Glycoprotein 1 Antibody IgG (05/03/2023 1:03 PM CDT) Beta 2 Glycoprotein 1 Antibody IgG <0.8 <7.0 U/mL 05/04/2023 10:34 AM CDT [facility] SPECIALTY CORE/PROT/END O Comment:Negative Blood BLOOD SPECIMEN / Unknown Venipuncture / Unknown 05/03/2023 1:03 PM CDT 05/03/2023 1:03 PM CDT Oleg Aparicio PA-C LAB - BLOOD ORDERABL ES Performing Organization Address City/[facility]/ZIP Co de Phone Number UM SPECIALTY CORE/PROT/ENDO Specialty Core/Prot/Endo [address] [facility], [address] * (ABNORMAL) Lupus Anticoagulant Panel [...] of an antiphospholipid syndrome, recommend anticardiolipin and [id number]-9-[id number] n (IgG and IgM) antibody tests. Recommend [...] - BLOOD ORDERABL ES Performing Organization Address [facility] Co de Phone Number SPECIAL COAGULATION UM Special Coagulation [address] [facility], [address] [place] [phone] * HIV-1 Antibody (External Result) (01/26/2023) HIV 1&2 Antibody (External) Negative Nonreactive EXTERNAL LAB Patient Reported LAB - HIM EXTERNAL R ESULT EXTERNAL LAB External Lab from Last 3 Months or Most Recently Relevant to Health Maintenance Advance Directives For more information, please contact: [phone] * Full Code (Latest Code Status on File) Date Activated Date Inactivated Comments 07/15/2023 7:25 PM 07/18/2023 1:55 PM All basic an d advanced life-sustaining interventions are performed as appropriate Question Answer Comments Code status determined by: Discussion with patie nt/ legal decision maker Care Teams Revenue Stamper Relationship Specialty Start Date End Date No Ref-Primary, Physician PCP - General 03/31/23 Oleg Aparicio, PA-C [facility] [place] [address] Assigned Cancer Care Provider 05/06/23 Ana Oreilly MD [address] [facility] [address] [place] [address] Assigned OBGYN Provider 05/06/23
--- OUTSIDE RECORDS SUMMARY | 2023-08-02 13:54 | XMS_ITS | Encounter Summary ---
Author Organization [place] Address [address] [place] [address]. [place] [address] Care Team Providers Care Peanut Sorter Name Role Phone No Ref-Primary, Physician Primary Care Provider Oleg Aparicio PA-C Unavailable [phone] Ana Oreilly MD Unavailable [phone] Encounter Details Date Type Department Care Team (Late st Contact Info) Description 06/22/2023 [facility] [address] [place] [address] Oleg Aparicio PA-C [address] [place] [address] 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 Tobacco Use Types [...] Lovenox at 8:56 AM. 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 Patient verbalized understanding and will go to lab. Sandie White RN, BSN, PCCN Nurse Clinician [facility] [address] [place] [address] [address], [place] [address] Office, direct: [phone] Main office number: [phone] Pronouns: She, her, hers documented in this encounter Plan of Treatment Not on file documented as of this encounter Visit Diagnoses Not on filedocumented in this encounter Care Teams Peanut Sorter Relationship Specialty Start Date End Date No Ref-Primary, Physician PCP - General 03/31/23 Oleg Aparicio, JULIAC [address] [place] [address] Assigned Cancer Care Provider 05/06/23 Ana Oreilly MD [address] [address] Assigned OBGYN Provider 05/06/23 documented as of this encounter
--- OUTSIDE RECORDS SUMMARY | 2023-08-02 13:54 | XMS_ITS | Encounter Summary ---
Author Organization [place] Address [address] [place] [address] Care Team Providers Care Office Messenger Name Role Phone No Ref-Primary, Physician Primary Care Provider Oleg Aparicio PA-C Unavailable [phone] Ana Oreilly MD Unavailable [phone] Reason for Visit * Reason Comments Labor * Auth/Cert (Routine) Specialty Diagnoses / Procedures Referred By Contac t Referred To Contact director integrated Diagnoses labor Sh Labor & Delivery [address] [id number] Referral ID Status Reason Start Date Expiration Date Visits Re quested Visits Authorized [id number] 1 1 Encounter Details Date Type Department Care Team (Latest Contact Info) Description 07/15/2023 6:03 PM CDT - 07/18/2023 10:20 AM CDT Hospital Encounter [facility] [address] [id number] Moira Roa MD [address] [address] Discharge Disposition: Home or [...] Where can you learn more? Go to [email or web address]://[email or web address].net/patiented Enter N531 in the search box to learn more about Learning About When to Call Your Doctor During (After 20 Weeks). Current as of: August 30, 2022 Content Version: 14.0 ?? [employer]. Care instructions adapted under license by your healthcare professional. If you have questions about a medical condition or this instruction, always ask your healthcare professional. [employer] disclaims any warranty or liability for your [...] Mcmahon : 1995 Admit date: 07/15/2023 Acct: [id number] Assessment/Plan: Gabrielle Mcmahon is a at 33w1d [...] for any increased symptoms. 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 Hx of BL PE earlier [...] cords Psych: mood appropriate FHT: tracings reactive Maeser: irritable Labs/Imaging: Results for orders placed or [...] Mcmahon : 1995 Admit date: 07/15/2023 Acct: [id number] Assessment/Plan: Gabrielle Mcmahon is a at 33w0d who admitted for threatened labor. Today is HD#3. Pt transferred here from an outside facility and is unassigned to [facility]. contractions - No cervical change on last [...] Moira Roa MD David F. Clay, MD [facility] EVA Sanders PA 07/17/2023, 8:03 AM * Crissy Akins RN - 07/17/2023 12:00 AM CDT Pts GBS was collected at [place] on 07/14, pt received results via email [...] pending Urine GC pending GBS collected at [facility] and pending. S/p NICU consult on 07/15/23 Hx of bilateral PE in this As outpatient, pt on lovenox 100 mg bid. Reordered for 1130am on 07/15 See hematology note for additional details. 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 Continue [...] not included. July 15, 2023 Gabrielle Mcmahon [id number] OB Admit History & Physical CC: contractions HPI: at 32w5d who was a transfer from [facility]. She has had adequate care up to this point. She was seen at her routine visit today where she shared with her provider that she was having on and off contractions over the last couple of weeks but increased frequency and pressure over the last couple of days. She was evaluated on labor and delivery in [place] and contractions were noted on NST. Transvaginal [...] and followed by hematology.Most recent encounter in [facility] on [facility]. She has been followed by M for growth assessment. The last growth was on 06/20 at 18% with AC at 14%. They recommend growth every 4 weeks. Pt did have growth ultrasound on 07/13 in [place], vertex, EFW 27%, AC 30% Her OB [...] Negative GI: Negative BREAST: Negative : Negative SUPERVISOR FINISHING DEPARTMENT: Negative CV: Negative PULMONARY: Negative MUSCULOSKELETAL: Negative [...] Resource Strain: Low Risk (02/21/2022) Received from [facility] Overall Financial Resource Strain (CARDIA) Difficulty of Paying Living Expenses: Not hard at all Food Insecurity: No Food Insecurity (02/21/2022) Received from [facility] Hunger Vital Sign Worried About Running Out of Food in the Last Year: Never true Ran Out of Food in the Last Year: Never true Transportation Needs: No Transportation Needs (02/21/2022) Received from [facility] PRAPARE - Transportation Lack of Transportation (Medical): No Lack of Transportation (Non-Medical): No Physical Activity: Insufficiently Active (02/21/2022) Received from [facility] Exercise Vital Sign Days of Exercise per Week: 3 days Minutes of Exercise per Session: 20 min Stress: Stress Concern Present (02/21/2022) Received from [facility] [employer] [place] [facility] - Occupational Stress Questionnaire Feeling of Stress : To some extent Social Connections: Unknown (08/26/2022) Received from [facility] Social Connections Frequency of Communication with Friends and Family: Not on file Interpersonal Safety: Not At Risk (02/21/2022) Received from [facility] Humiliation, Afraid, Rape, and Kick questionnaire Fear of Current or Ex-Partner: No Emotionally Abused: No Physically Abused: No Sexually Abused: No Housing Stability: Low Risk (02/21/2022) Received from [facility] Housing Stability Vital Sign Unable to Pay [...] mg/dL Mucus Urine Present Abnormal /LPF Specific [place] Urine 1.009 RBC Urine <1 /HPF Blood [...] 26.00 kg/m?? FHT 140, mod joyce, reactive Maeser: irregular contractions Alert Awake in NAD, very [...] pending Urine GC pending GBS collected at [facility] and pending. Consider NICU consult tomorrow if applicable Hx of bilateral PE in this As outpatient, pt on lovenox 100 mg bid. Last dose at 0915 on 07/14. Will hold for tonight and if nolabor symptoms, plan to resume tomorrow morning. See hematology note for additional details. 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 Continue daily PNV Plan NST q shift and continuous monitoring if pt complaints of more that 5 contractions in an hour. Dispo; pt admitted to labor and delivery. Anticipate stay through the steroid window at minimum. 40 minutes spent on face to face time, documentation review, and h and p. Moira Roa MD MD Dept of PEDIATRIC NEPHROLOGIST July 15, 2023 documented in this encounter Consult Notes * Alma Acosta, HARBOR DEPARTMENT MANAGER CAMERA TUNING ENGINEER - 07/15/2023 8:57 PM CDTAssociated Order(s): NURSE PRACT IP CONSULT Images from the original note were not included. [facility] Neonatology Antepartum Counseling Consult: I was asked [...] lung development, nutrition, growth and development, and tank terminal gauger outcomes. I also explained the basic criteria [...] the above patient. Mother assented to routine infant medications after ; Erythromycin, Vitamin K injection, [...] doctors names if she comes back to [facility]. * Provider Notification - Crissy Akins RN [...] negative GBS result via email notification from [place]. * Provider Notification - Crissy Akins RN [...] ambulance at 1735 from being transferred from [facility]. Report received from EMS. Dr. Kumari [...] feels crampy and slight pelvic pressure. At [place] she received 2 gr ampicillin at 1515. 30mg of Niphedipine at 1551, 1st dose of Beta at 1514 and an LR bolus of 1000cc [id number]. Cx seemed to space out after bolus. Pt has a hx of bilateral PE in . No diagnosis givenbut taking 100mg of lovenox BID and followed by Hem. She also had a wet prep done today 07/14 at ( [facility]) and negative, Amniosure which was negative. FFN done and positive. US done as well for cervical length and 8mm 2, 80-3. GBS was colleted at [place] as well 07/14. Once pt here UA/UC [...] Platelet count (07/18/2023 8:14 AM CDT) Pathologist [facility] Platelet Count 170 150 - 450 10e3/uL 07/18/2023 8:32 AM CDT LABORATORY Blood STRUCTURE OF RIGHT UPPER LIMB / Unknown Venipuncture / Unknown 07/18/2023 8:14 AM CDT 07/18/2023 8:27 AM CDT Moira Roa MD LAB - BLOOD ORDERABL ES Performing Organization Address [facility]/ZIP Co de Phone Number [facility] Lab [address] floor, [address] [place] [address], [facility] [phone] * Rupture of Membranes by ROM Plus [...] BODY FLUIDS OR DERABLES Performing Organization Address [facility] Co de Phone Number [facility] Lab [address], [address] [place] [address], [facility] [phone] * (ABNORMAL) Wet preparation (07/17/2023 6:52 PM [...] MD LAB - MICRO GENERAL ORDERABLES LABORATORY [facility] Acute Care Lab [address], [address] [place] [address], [facility] [phone] * Adult Type and Screen (07/15/2023 9:31 PM CDT) Pathologist [facility] ABO/RH(D) O POS 07/15/2023 7:26 PM CDT BLOOD BANK Antibody Screen Negative Negative 07/15/2023 7:26 PM CDT BLOOD BANK SPECIMEN EXPIRATION DATE [id number] 07/15/2023 7:26 PM CDT BLOOD BANK Blood STRUCTURE OF RIGHT UPPER LIMB / Unknown Venipuncture / Unknown 07/15/2023 9:31 PM CDT 07/15/2023 9:34 PM CDT Moira Roa MD LAB - BLOOD BANK MONISHA T ORDER Performing Organization Address City/[facility]/ZIP Co de Phone Number BLOOD BANK [address] [place] [address], [facility] * (ABNORMAL) CBC with platelets and differential (07/15/2023 9:31 PM CDT) Pathologist [facility] WBC Count 10.6 4.0 - 11.0 10e3/uL [...] MD LAB - BLOOD ORDERABL ES LABORATORY [facility] Acute Care Lab [address], [address] [place] [address], [facility] [phone] * (ABNORMAL) Creatinine (07/15/2023 9:31 PM CDT) Creatinine 0.47(L) 0.51 - 0.95 mg/dL 07/15/2023 9:55 PM CDT LABORATORY GFR Estimate >90 >60 mL/min/1.7 3m2 07/15/2023 9:55 PM CDT LABORATORY Blood STRUCTURE OF RIGHT UPPER LIMB / Unknown Venipuncture / Unknown 07/15/2023 9:31 PM CDT 07/15/2023 9:34 PM CDT Moira Roa MD LAB - BLOOD ORDERABL ES LABORATORY [facility] Acute Care Lab [address], [address] [place] [address], [facility] [phone] * (ABNORMAL) UA with Microscopic reflex to Culture (07/15/2023 6:45 PM CDT) Color Urine Straw Colorless, Straw, Light Yellow, Yellow 07/15/2023 7:04 PM CDT LABORATORY Appearance Urine Clear Clear 07/15/19 7:04 PM CDT LABORATORY Glucose Urine Negative Negative mg/dL 07/15/2023 7:04 PM CDT LABORATORY Bilirubin Urine Negative Negative 7:04 PM CDT LABORATORY Ketones Urine 40(A) Negative mg/dL 07/15/2023 7:04 PM CDT LABORATORY Specific Franklin Urine 1.009 1.003 - 1.035 07/15/2023 7:04 [...] MD LAB - URINE ORDERABL ES LABORATORY [facility] Acute Care Lab [address] floor, [address] [place] [address], [facility] [phone] * Chlamydia trachomatis/Neisseria gonorrhoeae by PCR (07/15/2023 6:23 PM CDT) [facility] Chlamydia Trachomatis Negative Negative 07/16/2023 12:02 PM CDT [facility] Comment: Negative for C. trachomatis rRNA by lawn mower mediated amplification. A negative result by lawn mower mediated amplification does not preclude the presence of infection because results are dependent on proper and adequate collection, absence of inhibitors and sufficient rRNA to be detected. Neisseria gonorrhoeae Negative Negative 07/16/2023 12:02 PM CDT [facility] Comment:Negative for N. gono rrhoeae rRNA by lawn mower mediated amplification. A negative result by lawn mower mediated amplification does not preclude the presence of C. trachomatis infection because results are dependent on proper and adequate collection, absence of inhibitors and sufficient rRNA to be detected. Urine VOIDED URINE SPECIMEN / Unknown Non-blood Collection / Unknown 07/15/2023 6:23 PM CDT 07/15/2023 6:30 PM CDT Moira Roa MD LAB - MICRO GENERAL ORDERABLES Performing Organization Address [facility]/ZIP Co de Phone Number [facility] Inf. Diseases Diag. Lab [address] [facility] [place] [address] * Group B Streptococcus (External Result) (07/15/2023) Group B Streptococcus (External) Negative Negative EXTERNAL LAB Patient Reported LAB - HIM EXTERNAL R ESULT Performing Organization Address [facility]/ZIP Co de Phone Number EXTERNAL LAB External Lab * ABO & RH (External Result) (01/26/2023) ABO (External) O EXTERNAL LAB Rh (External) POSITIVE EXTERNAL LAB Patient Reported LAB - HIM EXTERNAL R ESULT Performing Organization Address [facility] Co de Phone Number EXTERNAL LAB External Lab * HIV-1 Antibody (External Result) (01/26/2023) HIV 1&2 Antibody (External) Negative Nonreactive EXTERNAL LAB Patient Reported LAB - HIM EXTERNAL R ESULT Performing Organization Address [facility]/ZIP Co de Phone Number EXTERNAL LAB External Lab * Rubella Antibody IgG (External Result) (01/26/2023) Rubella Antibody IgG (External) Immune Nonreactive EXTERNAL LAB Patient Reported LAB - HIM EXTERNAL R ESULT Performing Organization Address [facility] Co de Phone Number EXTERNAL LAB External Lab * Hepatitis B Surface Antigen (External Result) (01/26/2023) Hepatitis B Surface Antigen (External) Negative Nonreactive EXTERNAL LAB Patient Reported LAB - HIM EXTERNAL R ESULT Performing Organization Address [facility] Co de Phone Number EXTERNAL LAB [...] Antepartum documented in this encounter Care Teams Office Messenger Relationship Specialty Start Date End Date No Ref-Primary, Physician PCP - General 03/31/23 Oleg Aparicio, JULIAC [address] [facility] [address] [place], [place] [address] Assigned Cancer Care Provider 05/06/23 Ana Oreilly MD [address] [facility] [address] [place] [address] Assigned OBGYN Provider 05/06/23 documented as of this encounter
--- OUTSIDE RECORDS SUMMARY | 2023-08-02 13:54 | XMS_ITS | Continuity of Care Document ---
Author Organization [facility] Address [address] [place] [address] Phone Care Team Providers Care Machine Crater Name Role Phone Moira Roa MD Unavailable [...] [address], [place], [place], [id number] , [place] tel: [phone] [facility] No Information 4 Crispin Pizarro. [address], [place], [address], [place]. tel: [phone] Subsequent Hospital Care MDM Straightforward Or LOW 25 MIN [facility], [address], [place], [place], [id number] , [place] tel: [phone] [facility] IP No Information 4 Soledad Valentin. [address], [place], [address], [place]. tel: [phone] Initial Hospital Inpatient Or Observation Moderate MDM 55min [facility], [address], [place], [place], [id number] , [place] tel: [phone] [facility] IP labor without delivery, third trimesterPersona l history of pre-term laborInfection of other part of genital tract in , third trimesterPersona l history of pulmonary [id number] weeks gestation of pregnancyStrepto coccus B carrier state complicating [id number] weeks gestation of 4 [facility]. [address], [address], [place], [address], [place]. tel:[phone] Family History Family Member Type Diagnosis Age [...]
--- OUTSIDE RECORDS SUMMARY | 2023-08-02 13:54 | XMS_ITS | Encounter Summary ---
Author Organization [place] Address [address] [facility] [place] [address] Care Team Providers Care Music Ministries Director Name Role Phone No Ref-Primary, Physician Primary Care Provider Oleg Aparicio PA-C Unavailable [phone] Ana Oreilly MD Unavailable [phone] Encounter Details Date Type Department Care [...] on filedocumented in this encounter Care Teams Music Ministries Director Relationship Specialty Start Date End Date No Ref-Primary, Physician PCP - General 03/31/23 Oleg Aparicio PA-C [address] [place] [address] [address] [place] [address] Assigned Cancer Care Provider 05/06/23 Ana Oreilly MD [address] [facility] [address] [place] [address] Assigned OBGYN Provider 05/06/23 documented as of this encounter
--- OUTSIDE RECORDS SUMMARY | 2023-08-02 13:54 | XMS_ITS | Encounter Summary ---
Author Organization [place] Address [address] [facility] [place] [address] Care Team Providers Care Radio News Writer Name Role Phone No Ref-Primary, Physician Primary Care Provider Oleg Aparicio PA-C Unavailable [phone] Ana Oreilly MD Unavailable [phone] Reason for Visit * Reason Comments Ultrasound [id number] Encounter Details Date Type Department Care Team (Late st Contact Info) Description 06/21/2023 10:00 AM CDT Office Visit [facility] [place] [address] [place] [address] Ori Adame MD [address] [place] [address] Encounter for ultrasound to check [...] for details of today's US at the [facility]. Ori Adame MD Maternal- Medicine documented in this encounter Nursing Notes * Mara Cheung RN - 06/21/2023 10:00 AM CDT Patient reports good movement, reports Schley Thomas contractions, denies leaking of fluid, or bleeding. SBAR given to [facility] MD, see their note in Epic. documented in this encounter Plan of Treatment Not on file documented as of this encounter Visit Diagnoses Diagnosis Encounter for ultrasound to check growth- Primary documented in this encounter Care Teams Radio News Writer Relationship Specialty Start Date End Date No Ref-Primary, Physician PCP - General 03/31/23 Oleg Aparicio PA-C [address] [place] [address] Assigned Cancer Care Provider 05/06/23 Ana Oreilly MD [address] [place] [address] Assigned OBGYN Provider 05/06/23 documented as of this encounter
--- OUTSIDE RECORDS SUMMARY | 2023-08-02 13:55 | XMS_ITS | Clinical Summary ---
Author Organization [facility] Address [place], [place] [address] Care Team Providers Care Program Engineer Name Role Phone Marybeth Andrew MD Primary [...] Procedure Name Priority Date/Time Associated Diagnosis Comments NDT INSPECTOR THIN PREP PAP SCREEN IMAGED Routine 12/11/2020 2:40 PM CDT from Last 3 Months or Most Recently Relevant to Health Maintenance Results * NDT INSPECTOR THIN PREP PAP SCREEN IMAGED (12/11/2020 2:40 PM CDT) Case Report Gynecologic Cytology Report ? Case: [id number] ? Authorizing Provider: ??Elizabeth Philip ?Collected: ? 12/11/2020 1440 ? [place], ? Ordering Location: ? [facility] ?Received: ?12/15/2020 0858 ? First Screen: ?Baccam, Minie ? Specimen: ?NDT INSPECTOR ThinPrep Vial Screening, Cervical/Vaginal ? 12/26/2020 2:03 PM CDT [facility] INTERPRETATION/ RESULT NEGATIVE FOR INTRAEPITHELIAL LESION OR MALIGNANCY (NIL) (none) 12/26/2020 2:03 PM CDT [facility] IMEN ADEQUACY Satisfactory for evaluation No endocervical component seen 12/26/2020 2:03 PM CDT [facility] HPV REQUEST HPV if ASCUS 12/26/2020 2:03 PM CDT [facility] Date of LMP 11/04/2020 12/26/2020 2:03 PM CDT [facility] Menstrual Status 12/26/2020 2:03 PM CDT [facility] Additional Information 12/26/2020 2:03 PM CDT [facility] Comment: Interpreted at [facility] - [address], [place] [address] Automated Review Successful 12/26/2020 2:03 PM CDT [facility] Comment:Specimen processed s uccessfully by automated automation test engineer device, ThinPrep Imaging System, [employer] Note The pap test is a [...] and malignant lesions. 12/26/2020 2:03 PM CDT [facility] Other (Cervical/Vagina l) 12/11/2020 2:40 PM CDT 12/15/2020 8:58 AM CDT Elizabeth Philip MD PATHOLOGY/ CYTOLOGY [facility] [address] [place] [address], from Last 3 Months or Most Recently Relevant to Health Maintenance Care Teams Program Engineer Relationship Specialty Start Date End Date Marybeth Andrew MD [address] [place] [address] PCP - General Family Practice 08/20/22
--- OUTSIDE RECORDS SUMMARY | 2023-08-02 13:55 | XMS_ITS | Encounter Summary ---
Author Organization [place] Address [address] [place] [address] Care Team Providers Care Esol Instructor Name Role Phone No Ref-Primary, Physician Primary Care Provider Oleg Aparicio PA-C Unavailable [phone] Ana Oreilly MD Unavailable [phone] Reason for Referral * Diagnostic Imaging Ultrasound (Routine) - Pending Review Specialty Diagnoses / Procedures Referred By Contac t Referred To Contact Radiology. Diagnoses Encounter for ultrasound to check growth Procedures [facility] Comprehensive Single F/U Ori Adame MD [address] [facility] [place] [address] [address] Referral ID Status Reason Start Date Expiration Date V isits Requested Visits Authorized [id number] Pending Review 05/31/2023 05/30/2024 1 1 Reason for Visit * Diagnostic Imaging Ultrasound (Routine) - Pending Review Specialty Diagnoses / Procedures Referred By Contac t Referred To Contact Radiology. Diagnoses Encounter for ultrasound to check growth Procedures [facility] Comprehensive Single F/U Ori Adame MD [address] [place] [address] [address] Referral ID Status Reason Start Date Expiration Date V isits Requested Visits Authorized [id number] Pending Review 05/31/2023 05/30/2024 1 1 Encounter Details Date Type Department Care Team (Latest Contact Info) Description 06/21/2023 9:30 AM CDT - 06/21/2023 11:59 PM CDT Hospital Encounter [facility] [place] [address] [facility] [address] [place] [address] Ori Adame MD [address] [place] [address] Encounter for ultrasound to check [...] Procedure Name Priority Date/Time Associated Diagnosis Comments [facility] COMPREHENSIVE SINGLE F/U Routine 06/21/2023 10:50 AM CDT Encounter for ultrasound to check growth documented in this encounter Results * [facility] Comprehensive Single F/U (06/21/2023 10:50 AM [...] ? Study Date: ??06/21/2023 9:50am Pat. NO: ??[id number] ?Referring ??MD: TRISTA MELLO Site: ??[facility] ? Nursing Program Chair: Chanda Lazo RDMS : ??1995 ?Age: ?? [...] 2 lb 12 ?oz EFW by ?Hadlock ([id number]) Head / Face / Neck Biometry: General Maintenance Mechanic ? 4.9 ? mm CM ?5.5 ? mm ANATOMY ----- The following structures appear normal: Head / Neck ? Cranium. Head size. Head shape. Lateral ventricles. Midline falx. Cerebellum. Cisterna magna. Thalami. Face ? Lips. Profile. Nose. Heart / Thorax ?4-chamber view. RVOT view. LVOT view. 0-tyvzwa-bvrshid view. ? Diaphragm. Abdomen ? Stomach. Kidneys. [...] [place] Study Date: 06/21/2023 9:50am Pat. NO: [id number] Referring MD: TRISTA MELLO Site: [facility] Nursing Program Chair: Chanda MELLY Lazo : 1995 Age: 28 [...] 2 lb 12 oz EFW by Hadlock ([id number]) Head / Face / Neck Biometry: General Maintenance Mechanic 4.9 mm CM 5.5 mm ANATOMY ----- The following structures appear normal: Head / Neck Cranium. Head size. Head shape.Lateral ventricles. Midline falx. Cerebellum. Cisterna magna. Thalami. Face Lips. Profile. Nose. Heart / Thorax 4-chamber view. RVOT view. LVOT view.3-zzupci-ruthwhh view. Diaphragm. Abdomen Stomach. Kidneys. Bladder. Spine [...] volume appeared normal. Ori Adame MD IMG [facility] US ORDERABL ES documented in this encounter Visit Diagnoses Diagnosis Encounter for ultrasound to check growth documented in this encounter Care Teams Esol Instructor Relationship Specialty Start Date End Date No Ref-Primary, Physician PCP - General 03/31/23 Oleg Aparicio, RUPAL [address] [place] [address] Assigned Cancer Care Provider 05/06/23 Ana Oreilly MD [address] [place] [address] Assigned OBGYN Provider 05/06/23 documented as of this encounter
--- OUTSIDE RECORDS SUMMARY | 2023-08-02 13:55 | XMS_ITS | Encounter Summary ---
Author Organization [place] Address [address] [facility] [place] [address] Care Team Providers Care Vp Of Digital Marketing Name Role Phone No Ref-Primary, Physician Primary Care Provider Oleg Aparicio PA-C Unavailable [phone] Ana Oreilly MD Unavailable [phone] Reason for Referral * Diagnostic Imaging Ultrasound (Routine) - Pending Review Specialty Diagnoses / Procedures Referred By Contsandy t Referred To Contact Radiology. Diagnoses related condition, antepartum Procedures [facility] US Comprehensive Single F/U Ori Adame MD [address] [place] [address] Referral ID Status Reason Start Date Expiration Date V isits Requested Visits Authorized [id number] Pending Review 05/10/2023 05/09/2024 1 1 Reason for Visit * Reason Comments Ultrasound RL2/TV- Subopt anato my, hx PTD Encounter Details Date Type Department Care Team (Late st Contact Info) Description 05/10/2023 10:00 AM CDT Office Visit [facility] M[facility] Medicine [facility] [place] [address] [facility] [address] [place] [address] Ori Adame MD [address] [place] [address] Encounter for follow-up ultrasound of [...] for details of today's US at the [facility]. Ori Adame MD Maternal- Medicine documented in this encounter Nursing Notes * Alma Soriano RN - 05/10/2023 10:00 AM CDT Patient reports positive movement, denies pain, denies contractions/pre- term labor, leaking of fluid, or bleeding. Patient denies headache, visual changes, nausea/vomiting, epigastric pain related to preeclampsia. Education provided to patient on RL2/TV. SBAR given to [facility] MD, see their note in Epic. Alma Soriano RN documented in this encounter Plan of Treatment Not on file documented as of this encounter Results * [facility] US Comprehensive Single F/U (05/31/2023 11:40 [...] ? Study Date: ??05/31/2023 10:49am Pat. NO: ??[id number] ?Referring ??MD: TRISTA MELLO Site: ??[facility] ? Software Quality Specialist: Chanda Lazo RDMS : ??1995 ?Age: ?? [...] lb 13 ? oz EFW by ?Hadlock ([id number]) Head / Face / Neck Biometry: Physical Instructor ? 5.7 ? mm CM ?7.7 ? mm ANATOMY ----- The following structures appear normal: Head / Neck ? Cranium. Head size. Head shape. Lateral ventricles. Midline falx. Cavum septi pellucidi. Cerebellum. Cisterna magna. Thalami. Heart / Thorax ?4-chamber view. RVOT view. LVOT view. 4-xvdoxm-ckeougc view. ? Diaphragm. Abdomen ? Stomach. Kidneys. [...] [place] Study Date: 05/31/2023 10:49am Pat. NO: [id number] Referring MD: TRISTA MELLO Site: [facility] Software Quality Specialist: Chanda Lazo RDMS : 1995 Age: 28 [...] 1 lb 13 oz EFW by Hadlock (MUL-OE-BY-FL) Head / Face / Neck Biometry: Physical Instructor 5.7 mm CM 7.7 mm ANATOMY ----- The following structures appear normal: Head / Neck Cranium. Head size. Head shape.Lateral ventricles. Midline falx. Cavum septi pellucidi. Cerebellum.Cisterna magna. Thalami. Heart / Thorax 4-chamber view. RVOT view. LVOT view.4-rhqjtk-quvfogv view. Diaphragm. Abdomen Stomach. Kidneys. Bladder. Spine [...] volume appeared normal. Ori Adame MD IMG [facility] US ORDERABL ES documented in this encounter Visit Diagnoses Diagnosis Encounter for follow-up ultrasound of anatomy- Primary History of delivery, currently with history of pre-term labor Encounter for ultrasound to assess growth Encounter for ultrasound to assess growth documented in this encounter Care Teams Vp Of Digital Marketing Relationship Specialty Start Date End Date No Ref-Primary, Physician PCP - General 03/31/23 Oleg Aparicio PA-C [address] [place] [address] Assigned Cancer Care Provider 05/06/23 Ana Oreilly MD [address] [facility] [address] [place] [address] Assigned OBGYN Provider 05/06/23 documented as of this encounter
--- OUTSIDE RECORDS SUMMARY | 2023-08-02 13:55 | XMS_ITS | Encounter Summary ---
Author Organization [place] Address [address] [facility] [place] [address] Care Team Providers Care Corn Shucker Name Role Phone No Ref-Primary, Physician Primary [...] on filedocumented in this encounter Care Teams Corn Shucker Relationship Specialty Start Date End Date No Ref-Primary, Physician PCP - General 03/31/23 documented as of this encounter
--- OUTSIDE RECORDS SUMMARY | 2023-08-02 13:55 | XMS_ITS | Clinical Summary ---
Author Organization [facility] Address [address] [place] [address] Care Team Providers Care Utilities Ground Worker Name Role Phone Elsewhere, Pcp Primary Care Provider Unavailabl e Source Comments Patient records contain information from all sites at [facility]. For routine questions regarding patient records, call [phone] during business hours, M-F 8:00 AM - 5:00 PM Central Time. Record requests for emergency care only can be directed to [phone] at any time.[facility] Allergies No known active allergies Medications Medication Sig Dispensed Refills Start Date End Date Status iewbsdj-Io-mhlo-FA (VINATE ONE) 60 mg iron-1 mg per [...] and heating? Not hard at all 02/21/2022 [facility] [place] of Occupat ional Health - Occupational Stress [...] place to sleep or slept in a [place] health care facility (including now)? No 02/21/2022 Nutrition Answer Date [...] Sex Assigned at Female 02/21/2022 11:00 AM PAPERHANGER CONTRACTOR Gender Identity Female 02/21/2022 11:00 AM PAPERHANGER CONTRACTOR Sexual Orientation Straight 02/21/2022 11 :00 AM PAPERHANGER CONTRACTOR Last Filed Vital Signs Vital Sign Reading Time Taken Comments Blood Pressure - - Pulse - - Temperature 36.6 ??C (97.9 ??F) 02/24/2022 12:[address] Respiratory Rate - - Oxygen Saturation - - Inhaled Oxygen Concentration - - Weight 72.4 kg (159 lb 9.8 oz) 02/24/2022 12:38 PM PAPERHANGER CONTRACTOR Height 169.7 cm (5' 6.81) 02/24/2022 12:[address] Body Mass Index 25.14 02/24/2022 12:38 PM PAPERHANGER CONTRACTOR Plan of Treatment Health Maintenance Due Date [...] age to complete this topic Care Teams Utilities Ground Worker Relationship Specialty Start Date End Date Elsewhere, Pcp PCP - General Internal Medicine 02/24/22
--- OUTSIDE RECORDS SUMMARY | 2023-08-02 13:55 | XMS_ITS | Referral Summary ---
Author Organization [facility] Address [address] [place] [address] Care Team Providers Care Hydrator Name Role Phone Elsewhere, Pcp Primary Care Provider Unavailabl e Source Comments Patient records contain information from all sites at [facility]. For routine questions regarding patient records, call [phone] during business hours, M-F 8:00 AM - 5:00 PM Central Time. Record requests for emergency care only can be directed to [phone] at any time.[facility] Allergies No known active allergies Medications Medication Sig Dispensed Refills Start Date End Date Status qdcvpgz-Nj-bxht-FA (VINATE ONE) 60 mg iron-1 mg per [...] How often do you attend chur or roman catholic services? More than 4 times per year [...] and heating? Not hard at all 02/21/2022 [facility] of Occupat ional Health - Occupational Stress [...] Sex Assigned at Female 02/21/2022 11:00 AM WORKERS COMPENSATION CLAIMS EXAMINER Gender Identity Female 02/21/2022 11:00 AM WORKERS COMPENSATION CLAIMS EXAMINER Sexual Orientation Straight 02/21/2022 11 :00 AM WORKERS COMPENSATION CLAIMS EXAMINER Last Filed Vital Signs Vital Sign Reading Time Taken Comments Blood Pressure - - Pulse - - Temperature 36.6 ??C (97.9 ??F) 02/24/2022 12:[address] Respiratory Rate - - Oxygen Saturation - - Inhaled Oxygen Concentration - - Weight 72.4 kg (159 lb 9.8 oz) 02/24/2022 12:38 PM WORKERS COMPENSATION CLAIMS EXAMINER Height 169.7 cm (5' 6.81) 02/24/2022 12:[address] Body Mass Index 25.14 02/24/2022 12:38 PM WORKERS COMPENSATION CLAIMS EXAMINER Plan of Treatment Not on file Care Teams Hydrator Relationship Specialty Start Date End Date Elsewhere, Pcp PCP - General Internal Medicine 02/24/22
--- OUTSIDE RECORDS SUMMARY | 2023-08-02 13:55 | XMS_ITS | Encounter Summary ---
Author Organization [place] Address [address] [place] [address] Care Team Providers Care Gastroenterology Technician Name Role Phone No Ref-Primary, Physician Primary Care Provider Encounter Details Date Type Department Care Team (Late st Contact Info) Description 05/03/2023 1:00 PM CDT [facility] [address] [place] [phone] Pulmonary embolism affecting in second trimester; Family [...] SPECIALTY CORE/PROT/ENDO Specialty Core/Prot/Endo [address] [facility], [address] * Beta 2 Glycoprotein 1 Antibody IgG (05/03/2023 1:03 PM CDT) Beta 2 Glycoprotein 1 Antibody IgG <0.8 <7.0 U/mL 05/04/2023 10:34 AM CDT SPECIALTY CORE/PROT/END O Comment:Negative Blood BLOOD SPECIMEN / Unknown Venipuncture / Unknown 05/03/2023 1:03 PM CDT 05/03/2023 1:03 PM CDT Oleg Aparicio PA-C LAB - BLOOD ORDERABL ES UM SPECIALTY CORE/PROT/ENDO UM Specialty Core/Prot/Endo [address] [facility] [address] [facility], [address] [place] [address] * Cardiolipin Makenzie IgG and IgM (05/03/2023 [...] CORE/PROT/ENDO UM Specialty Core/Prot/Endo [address] [facility], [address] * (ABNORMAL) Lupus Anticoagulant Panel (05/03/2023 1:03 PM CDT) Pathologist [facility] INR 1.02 0.85 - 1.15 4 [...] of an antiphospholipid syndrome, recommend anticardiolipin and jqhp-4-msbsmzckrni n (IgG and IgM) antibody tests. Recommend [...] - BLOOD ORDERABL ES Performing Organization Address City/[facility] Co de Phone Number SPECIAL COAGULATION UM Special Coagulation [address] [facility], [address] [phone] * Low Molecular Weight Heparin Anti Xa Level (05/03/2023 1:03 PM CDT) [facility] Anti Xa Low Molecular Weight 0.63 For [...] - BLOOD ORDERABL ES Performing Organization Address City/[facility]/ZIP Co de Phone Number [facility] [place] [facility] [address] [facility], [address] [phone] documented in this encounter Visit Diagnoses Diagnosis Pulmonary embolism affecting in second trimester Family history of blood clots Family history of other blood disorders documented in this encounter Care Teams Gastroenterology Technician Relationship Specialty Start Date End Date No Ref-Primary, Physician PCP - General 03/31/23 documented as of this encounter
--- OUTSIDE RECORDS SUMMARY | 2023-08-02 13:55 | XMS_ITS ---
Author Organization [facility] Address [address] [place] [address] Care Team Providers Care Laminator Name Role Phone Unavailable Unavailable Unavailable Surgery Details Not on file Complications Check Surgery Details section. Procedure Estimated Blood Loss Check Surgery Details section. Procedure Findings Check Surgery Details section. Procedure Specimens Taken Check Surgery Details section.
--- OUTSIDE RECORDS SUMMARY | 2023-08-02 13:55 | XMS_ITS | Encounter Summary ---
Author Organization [place] Address [address] [facility] [place] [address] Care Team Providers Care Library Media Technician Name Role Phone No Ref-Primary, Physician Primary Care Provider Oleg Aparicio PA-C Unavailable [phone] Ana Oreilly MD Unavailable [phone] Encounter Details Date Type Department Care [...] on filedocumented in this encounter Care Teams Library Media Technician Relationship Specialty Start Date End Date No Ref-Primary, Physician PCP - General 03/31/23 Oleg Aparicio PA-C [address] [place] [address] [address] [place] [address] Assigned Cancer Care Provider 05/06/23 Ana Oreilly MD [address] [address] [place] [address] Assigned OBGYN Provider 05/06/23 documented as of this encounter
--- OUTSIDE RECORDS SUMMARY | 2023-08-02 13:55 | XMS_ITS | Encounter Summary ---
Author Organization [place] Address [address] [place] [address]. [place] [address] Care Team Providers Care Hand Etcher Helper Name Role Phone No Ref-Primary, Physician Primary Care Provider Oleg Aparicio PA-C Unavailable [phone] Ana Oreilly MD Unavailable [phone] Encounter Details Date Type Department Care Team (Late st Contact Info) Description 04/28/2023 [facility] [address] [place] [address] Carmen Pollack RN 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 [...] on filedocumented in this encounter Care Teams Hand Etcher Helper Relationship Specialty Start Date End Date No Ref-Primary, Physician PCP - General 03/31/23 Oleg Aparicio PA-C [address] [place] [address] Assigned Cancer Care Provider 05/06/23 Ana Oreilly MD [address] [place] [address] Assigned OBGYN Provider 05/06/23 documented as of this encounter
--- OUTSIDE RECORDS SUMMARY | 2023-08-02 13:55 | XMS_ITS | Encounter Summary ---
Author Organization [place] Address [address] [place] [address]. [place] [address] Care Team Providers Care Negative Assembler Name Role Phone No Ref-Primary, Physician Primary Care Provider Encounter Details Date Type Department Care Team ([facility] st Contact Info) Description 04/28/2023 Telephone [facility] [address] [place] [address] [phone] Oleg Aparicio PA-C [address] [place] [address] 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 Tobacco Use Types [...] encounter Miscellaneous Notes * Telephone Encounter - Olge Aparicio PA-C - 04/28/2023 4:10 PM CST Images from the original note were not included. [facility] [address], [address], [place] [address] Main: [phone], Telephone Note: Patient: Gabrielle Mcmahon : 1995 Date of this note written: April 28, 2023 Time: 15:55 This senior writer called the patient on 04/28/2023 at [...] post . Oleg Aparicio PA-C, MPAS Physician Print Support Specialist [facility]. AGE COORDINATOR documented in this encounter Plan of Treatment Not on file documented as of this encounter Visit Diagnoses Not on filedocumented in this encounter Care Teams Negative Assembler Relationship Specialty Start Date End Date No Ref-Primary, Physician PCP - General 03/31/23 documented as of this encounter
--- OUTSIDE RECORDS SUMMARY | 2023-08-02 13:55 | XMS_ITS | Encounter Summary ---
Author Organization [place] Address [address] [place] [address] Care Team Providers Care Car Hostler Name Role Phone No Ref-Primary, Physician Primary Care Provider Oleg Aparicio PA-C Unavailable [phone] Ana Oreilly MD Unavailable [phone] Reason for Referral * Diagnostic Imaging Ultrasound (Routine) - Pending Review Specialty Diagnoses / Procedures Referred By Contac t Referred To Contact Radiology. Diagnoses related condition, antepartum Procedures [facility] US Comprehensive Single F/U Ori Adame MD 606 [facility] [place] [address] [address] Referral ID Status Reason Start Date Expiration Date V isits Requested Visits Authorized [id number] Pending Review 05/10/2023 05/09/2024 1 1 Reason for Visit * Diagnostic Imaging Ultrasound (Routine) - Pending Review Specialty Diagnoses / Procedures Referred By Contac t Referred To Contact Radiology. Diagnoses related condition, antepartum Procedures [facility] US Comprehensive Single F/U Oir Adame MD [address] [place] [address] [address] Referral ID Status Reason Start Date Expiration Date V isits Requested Visits Authorized [id number] Pending Review 05/10/2023 05/09/2024 1 1 Encounter Details Date Type Department Care Team (Latest Contact Info) Description 05/31/2023 10:45 AM CDT - 05/31/2023 11:59 PM CDT Hospital Encounter [facility] [place] [address] [facility] [address] [place] [address] Ori Adame MD [address] [place] [address] Encounter for ultrasound to assess [...] Name Priority Date/Time Associated Diagnosis Comments [facility] US COMPREHENSIVE SINGLE F/U Routine 05/31/2023 11:40 AM CDT Encounter for ultrasound to assess growth documented in this encounter Results * [facility] US Comprehensive Single F/U (05/31/2023 11:40 [...] ? Study Date: ??05/31/2023 10:49am Pat. NO: ??[id number] ?Referring ??MD: TRISTA MELLO Site: ??[facility] ? Public Speaking Coach: Chanda Lazo RDMS : ??1995 ?Age: ?? [...] lb 13 ? oz EFW by ?Hadlock ([id number]) Head / Face / Neck Biometry: Gambling Broker ? 5.7 ? mm CM ?7.7 ? mm ANATOMY ----- The following structures appear normal: Head / Neck ? Cranium. Head size. Head shape. Lateral ventricles. Midline falx. Cavum septi pellucidi. Cerebellum. Cisterna magna. Thalami. Heart / Thorax ?4-chamber view. RVOT view. LVOT view. 2-tlriwo-smczipx view. ? Diaphragm. Abdomen ? Stomach. Kidneys. [...] [place] Study Date: 05/31/2023 10:49am Pat. NO: [id number] Referring MD: TRISTA MELLO Site: [facility] Public Speaking Coach: Chanda Lazo RDMS : 1995 Age: [...] 1 lb 13 oz EFW by Hadlock ([id number]) Head / Face / Neck Biometry: Gambling Broker 5.7 mm CM 7.7 mm ANATOMY ----- The following structures appear normal: Head / Neck Cranium. Head size. Head shape.Lateral ventricles. Midline falx. Cavum septi pellucidi. Cerebellum.Cisterna magna. Thalami. Heart / Thorax 4-chamber view. RVOT view. LVOT view.2-mprhcx-kxjwtwh view. Diaphragm. Abdomen Stomach. Kidneys. Bladder. Spine [...] growth documented in this encounter Care Teams Car Hostler Relationship Specialty Start Date End Date No Ref-Primary, Physician PCP - General 03/31/23 Oleg Aparicio, RUPAL [address] [address] Assigned Cancer Care Provider 05/06/23 Ana Oreilly MD [address] [place] [address] Assigned OBGYN Provider 05/06/23 documented as of this encounter
--- OUTSIDE RECORDS SUMMARY | 2023-08-02 13:55 | XMS_ITS | Encounter Summary ---
Author Organization [place] Address [address] [facility] [address] Care Team Providers Care Farmworker Pullet Farm Name Role Phone No Ref-Primary, Physician Primary Care Provider Oleg Aparicio PA-C Unavailable [phone] Ana Oreilly MD Unavailable [phone] Encounter Details Date Type Department Care [...] on filedocumented in this encounter Care Teams Farmworker Pullet Farm Relationship Specialty Start Date End Date No Ref-Primary, Physician PCP - General 03/31/23 Oleg Aparicio PA-C [address] [place] [address] [address] [place] [address] Assigned Cancer Care Provider 05/06/23 Ana Oreilly MD [address] [facility] [address] [place] [address] Assigned OBGYN Provider 05/06/23 documented as of this encounter
--- OUTSIDE RECORDS SUMMARY | 2023-08-02 13:55 | XMS_ITS | Encounter Summary ---
Author Organization [place] Address [address] [facility] [place] [address] Care Team Providers Care Teaching Aide Name Role Phone No Ref-Primary, Physician Primary Care Provider Reason for Visit * Reason Comments CLOTTING * Consultation (Priority: 1-2 Weeks) - Pending Review Specialty Diagnoses / Procedures Referred By Diana t Referred To Contact Medical Oncology Diagnoses Pulmonary embolism affecting in second trimester Ana Oreilly MD [address] [place] [address] Referral ID Status Reason Start Date Expiration Date V isits Requested Visits Authorized [id number] Pending Review 04/12/2023 04/11/2024 1 1 Encounter Details Date Type Department Care Team (Late st Contact Info) Description 04/28/2023 1:30 PM SENIOR DRAFTER Office Visit [facility] [address] [place] [phone] Ana Oreilly MD [address] [place] [address] Oleg Aparicio PA-C [address] [place], [place] [id number] Pulmonary embolism affecting in second trimester (Primary [...] Comments Blood Pressure 113/69 04/28/2023 1:25 PM SENIOR DRAFTER Pulse 72 04/28/2023 1:25 PM SENIOR DRAFTER Temperature 36.7 ??C (98 ??F) 04/28/2023 1:25 PM SENIOR DRAFTER Respiratory Rate - - Oxygen Saturation 98% 04/28/2023 1:25 PM SENIOR DRAFTER Inhaled Oxygen Concentration - - Weight 68.9 kg (152 lb) 04/28/2023 1:25 PM SENIOR DRAFTER Height 170.2 cm (5' 7) 04/28/2023 1:25 PM SENIOR DRAFTER Body Mass Index 23.81 04/28/2023 1:25 PM SENIOR DRAFTER documented in this encounter Progress Notes * Oleg Aparicio PA-C - 04/28/2023 1:30 PM CST Images from the original note were not included. [facility] [address] [place] [address] Main: [phone], Patient seen at: [facility] at [address] [place] [address] Outpatient Visit Note: Patient: Gabrielle Mcmahon : 1995 DEBORAH: April 28, 2023 Location of this director underwriter sales at the time of this clinic visit was conducted: [facility]. Location of the patient at the time of this clinic visit was conducted: [facility]. [...] the patient's pulmonary embolism was diagnosed at [facility] and I am unable to find any progress notes, H&P notes or discharge summary of this hospitalization in her records. I am able, however, to see some labs and imaging studies via [facility] Everywhere from [facility]. From what I can gather, Gabrielle [...] was performed. She then went to the [facility] emergency department on 03/08/2023 with chest [...] today, [facility] [...] the time, her mother was seen at [facility] and from Gabrielle's description, it was consistent with c erebral sinus thrombosis but not entirely clear. Gabrielle report that her mother's blood clot was related to control and her mother is no longer on anticoagulation therapy. Gabrielle is unclear ifother thrombophilia workup was done with her mother. Then on 04/22/2023, this director underwriter sales received a call from a nurse at [facility] and was inquiring about her enoxaparin dosing. At the time, this director underwriter sales was informed that her Anti-Xa level was subtherapeutic at I belief at 0.3 (again, I am not able to see any [facility]'s or systems notes. 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 Has not return to work as of [...] a LMWH Anti-Xa level reported to this director underwriter sales from [facility] that was subtherapeutic. I will plan [...] weeks gestation) to be done at a [facility] so that we can get the [...] or concerns. Oleg Aparicio PA-C, MPAS Physician Inventory Audit Clerk [facility]. The longitudinal plan of care for these conditions below were addressed during this visit. Due to the added complexity in care, I will continue to support Gabrilele Mcmahon in the subsequent management of these [...] note. Time IN: 13:30 Time OUT: 14:15 OR DRAFTER documented in this encounter Miscellaneous Notes * Addendum Note - Oleg Aparicio PA-C - 04/28/2023 1:30 PM CSTAddended by: OLEG APARICIO on: 04/28/2023 04:09 PM Modules accepted: Orders OR DRAFTER documented in this encounter Plan of Treatment Not on file documented as of this encounter Procedures Procedure Name Priority Date/Time Associated Diagnosis Comments LOW MOLECULAR WEIGHT HEPARIN ANTI XA LEVEL Routine 04/28/2023 2:27 PM SENIOR DRAFTER Pulmonary embolism affecting in second trimester documented [...] - BLOOD ORDERABL ES Performing Organization Address City/[facility]/ZIP Co de Phone Number LABORATORY [facility] [address] [place] [address], [address] * Beta 2 Glycoprotein 1 Antibody IgM (05/03/2023 1:03 PM CDT) Beta 2 Glycoprotein 1 Antibody IgM <2.4 <7.0 U/mL 05/04/2023 10:34 AM CDT SPECIALTY CORE/PROT/END O Comment:Negative Blood BLOOD SPECIMEN / Unknown Venipuncture / Unknown 05/03/2023 1:03 PM CDT 05/03/2023 1:03 PM CDT Oleg Aparicio PA-C LAB - BLOOD ORDERABL ES SPECIALTY CORE/PROT/ENDO Specialty Core/Prot/Endo [address] [facility], [address] * Beta 2 Glycoprotein 1 Antibody IgG (05/03/2023 1:03 PM CDT) Beta 2 Glycoprotein 1 Antibody IgG <0.8 <7.0 U/mL 05/04/2023 10:34 AM CDT SPECIALTY CORE/PROT/END O Comment:Negative Blood BLOOD SPECIMEN / Unknown Venipuncture / Unknown 05/03/2023 1:03 PM CDT 05/03/2023 1:03 PM CDT Oleg Aparicio PA-C LAB - BLOOD ORDERABL ES Performing Organization Address City/[facility]/ZIP Co de Phone Number UM SPECIALTY CORE/PROT/ENDO Specialty Core/Prot/Endo [address] [facility] [address], [address] * Cardiolipin Angie IgG and IgM [...] ES UM SPECIALTY CORE/PROT/ENDO Specialty Core/Prot/Endo [address] [facility] [address], [address] * (ABNORMAL) Lupus Anticoagulant Panel (05/03/2023 [...] of an antiphospholipid syndrome, recommend anticardiolipin and weky-0-xssopeekryk n (IgG and IgM) antibody tests. Recommend [...] UM SPECIAL COAGULATION UM Special Coagulation [address] [facility] [address] [facility], Room [address] [phone] [...] - BLOOD ORDERABL ES Performing Organization Address City/[facility]/ZIP Co de Phone Number UU LABORATORY [facility] Lab [address] [facility], [address] [place] [address], [facility] * Low Molecular Weight Heparin Anti Xa Level (04/28/2023 2:27 PM SENIOR DRAFTER) Anti Xa Low Molecular Weight 0.42 For Reference Range, See Comment IU/mL 04/28/2023 2:53 PM SENIOR DRAFTER UR LABORATORY Blood STRUCTURE OF RIGHT UPPER LIMB / Unknown Venipuncture / Unknown 04/28/2023 2:27 PM SENIOR DRAFTER 04/28/2023 2:41 PM SENIOR DRAFTER Narrative UR LABORATORY - 04/28/2023 2:53 PM SENIOR DRAFTER If collected 4-6 hours after administration: Adults: If administered only once daily with a dose of 1.5 mg/k.0-2.0 IU/mL. If administered twice daily with a dose of 1 mg/k.50-1.0 IU/mL. Pediatrics: If administered twice daily: 0.50-1.0 IU/mL. Oleg Aparicio PA-C LAB - BLOOD ORDERABL ES UR LABORATORY [facility] Acute Care Lab [address] [facility], [address] [place] [address], [facility] [phone] documented in this encounter Visit Diagnoses Diagnosis Pulmonary embolism affecting in second trimester- Primary Family history of blood clots Family history of other blood disorders documented in this encounter Care Teams Teaching Aide Relationship Specialty Start Date End Date No Ref-Primary, Physician PCP - General 03/31/23 documented as of this encounter
--- OUTSIDE RECORDS SUMMARY | 2023-08-02 13:55 | XMS_ITS | Encounter Summary ---
Author Organization [place] Address [address] [place] [address] Care Team Providers Care Rose Grower Name Role Phone No Ref-Primary, Physician Primary [...] on filedocumented in this encounter Care Teams Rose Grower Relationship Specialty Start Date End Date No Ref-Primary, Physician PCP - General 03/31/23 documented as of this encounter
--- OUTSIDE RECORDS SUMMARY | 2023-08-02 13:55 | XMS_ITS | Encounter Summary ---
Author Organization [place] Address [address] [facility] [place] [address] Care Team Providers Care Preschool Program Director Name Role Phone No Ref-Primary, Physician Primary Care Provider Oleg Aparicio PA-C Unavailable [phone] Ana Oreilly MD Unavailable [phone] Reason for Referral * Diagnostic Imaging Ultrasound (Routine) - Pending Review Specialty Diagnoses / Procedures Referred By Contsandy t Referred To Contact Radiology. Diagnoses Encounter for ultrasound to check growth Procedures [facility] US Comprehensive Single F/U Ori Adame MD [address] [place] [address] Referral ID Status Reason Start Date Expiration Date V isits Requested Visits Authorized [id number] Pending Review 05/31/2023 05/30/2024 1 1 Reason for Visit * Reason Comments Ultrasound RL2-reassess g rowth, EFW 15% Encounter Details Date Type Department Care Team (Late st Contact Info) Description 05/31/2023 11:30 AM CDT Office Visit [facility] [place] [address] [facility] [address] [place] [address] Ori Adame MD [address] [place] [address] Encounter for ultrasound to check [...] for details of today's US at the [facility]. Ori Adame MD Maternal- Medicine documented [...] OB givenhistory of PE. SBAR given to [facility] (Dr. Adame), see their note in Epic. documented in this encounter Plan of Treatment Not on file documented as of this encounter Results * [facility] US Comprehensive Single F/U (06/21/2023 10:50 [...] ? Study Date: ??06/21/2023 9:50am Pat. NO: ??[id number] ?Referring ??: TRISTA MELLO Site: ??[facility] ? [employer] Director: Chanda Lazo RDMS : ??1995 ?Age: ?? [...] 2 lb 12 ?oz EFW by ?Hadlock ([id number]) Head / Face / Neck Biometry: Disciplinary Hearing Officer ? 4.9 ? mm CM ?5.5 ? mm ANATOMY ----- The following structures appear normal: Head / Neck ? Cranium. Head size. Head shape. Lateral ventricles. Midline falx. Cerebellum. Cisterna magna. Thalami. Face ? Lips. Profile. Nose. Heart / Thorax ?4-chamber view. RVOT view. LVOT view. 6-svnpbn-ardpiev view. ? Diaphragm. Abdomen ? Stomach. Kidneys. [...] [place] Study Date: 06/21/2023 9:50am Pat. NO: [id number] Referring MD: TRISTA MELLO Site: [facility] [employer] Director: Chanda Lazo RDMS : 1995 Age: 28 [...] 2 lb 12 oz EFW by Hadlock ([id number]) Head / Face / Neck Biometry: Disciplinary Hearing Officer 4.9 mm CM 5.5 mm ANATOMY ----- The following structures appear normal: Head / Neck Cranium. Head size. Head shape.Lateral ventricles. Midline falx. Cerebellum. Cisterna magna. Thalami. Face Lips. Profile. Nose. Heart / Thorax 4-chamber view. RVOT view. LVOT view.4-bhxhhh-bhktuqk view. Diaphragm. Abdomen Stomach. Kidneys. Bladder. Spine [...] fluid volume appeared normal. Ori Adame MD [facility] US ORDERABL ES documented in this encounter Visit Diagnoses Diagnosis Encounter for ultrasound to check growth- Primary Encounter for ultrasound to check growth documented in this encounter Care Teams Preschool Program Director Relationship Specialty Start Date End Date No Ref-Primary, Physician PCP - General 03/31/23 Oleg Aparicio PA-C [address] [place] [address] [address] [place] [address] Assigned Cancer Care Provider 05/06/23 Ana Oreilly MD [address] [address] [place], [place] [id number] Assigned OBGYN Provider 05/06/23 documented as of this encounter
--- OUTSIDE RECORDS SUMMARY | 2023-08-02 13:55 | XMS_ITS | Encounter Summary ---
Author Organization [place] Address [address] [facility] [place] [address] Care Team Providers Care Brush Filler Hand Name Role Phone No Ref-Primary, Physician Primary Care Provider Oleg Aparicio PA-C Unavailable [phone] Ana Oreilly MD Unavailable [phone] Reason for Referral * Diagnostic Imaging Ultrasound (Routine) - Pending Review Specialty Diagnoses / Procedures Referred By Contac t Referred To Contact Radiology. Diagnoses Pulmonary embolism affecting in second trimester Procedures [facility] US Comprehensive Single F/U Ana Oreilly MD [address] [facility] [employer] [address] [address] Referral ID Status Reason Start Date Expiration Date V isits Requested Visits Authorized [id number] Pending Review 04/12/2023 04/11/2024 1 1 Reason for Visit * Diagnostic Imaging Ultrasound (Routine) - Pending Review Specialty Diagnoses / Procedures Referred By Contac t Referred To Contact Radiology. Diagnoses Pulmonary embolism affecting in second trimester Procedures [facility] US Comprehensive Single F/U Ana Oreilly MD [address] [place] [address] Referral ID Status Reason Start Date Expiration Date V isits Requested Visits Authorized [id number] Pending Review 04/12/2023 04/11/2024 1 1 Encounter Details Date Type Department Care Team (Latest Contact Info) Description 05/10/2023 9:28 AM CDT - 05/10/2023 11:59 PM CDT Hospital Encounter [facility] [place] [address] [facility] [address] [place] [address] Ori Adame MD [address] [place] [address] Pulmonary embolism affecting in second [...] Procedure Name Priority Date/Time Associated Diagnosis Comments [facility] COMPREHENSIVE SINGLE F/U Routine 05/10/2023 10:08 AM CDT Pulmonary embolism affecting in second trimester documented in this encounter Results * [facility] US Comprehensive Single F/U (05/10/2023 10:08 [...] ? Study Date: ??05/10/2023 9:30am Pat. NO: ??[id number] ?Referring ??MD: TRISTA MELLO Site: ??[facility] ? Special Diet Cook: Yamel [place] RDMS : ??1995 ?Age: ?? [...] 1 lb 2 ?oz EFW by ?Hadlock ([id number]) Head / Face / Neck Biometry: Migratory Game Bird Biologist ? 6.2 ? mm CM ?3.8 ? mm Nasal bone ? 7.0 ? mm ANATOMY ----- The following structures appear normal: Head / Neck ? Cranium. Head size. Head shape. Lateral ventricles. Midline falx. Cavum septi pellucidi. Cerebellum. Cisterna magna. Thalami. Face ? Lips. Profile. Nose. Maxilla. Mandible. Heart / Thorax ?4-chamber view. RVOT view. LVOT view. Situs. 4-wxblpw-xnucxte view. ? Diaphragm. Abdomen ? Stomach. Kidneys. [...] [place] Study Date: 05/10/2023 9:30am Pat. NO: [id number] Referring MD: TRISTA MELLO Site: [facility] Special Diet Cook: Yamel [place] RDMS : 1995 Age: 27 [...] 1 lb 2 oz EFW by Hadlock ([id number]) Head / Face / Neck Biometry: Migratory Game Bird Biologist 6.2 mm CM 3.8 mm Nasal bone 7.0 mm ANATOMY ----- The following structures appear normal: Head / Neck Cranium. Head size. Head shape.Lateral ventricles. Midline falx. Cavum septi pellucidi. Cerebellum.Cisterna magna. Thalami. Face Lips. Profile. Nose. Maxilla.Mandible. Heart / Thorax 4-chamber view. RVOT view. LVOT view.Situs. 4-wftgqg-xavajsd view. Diaphragm. Abdomen Stomach. Kidneys. Bladder. Spine [...] trimester documented in this encounter Care Teams Brush Filler Hand Relationship Specialty Start Date End Date No Ref-Primary, Physician PCP - General 03/31/23 Oleg Aparicio, PABrightC [address] [place] [address] [address] [place] [address] Assigned Cancer Care Provider 05/06/23 Ana Oreilly MD [address] [facility] [address] [place] [address] Assigned OBGYN Provider 05/06/23 documented as of this encounter
== END 2023-08-02 16:16 | disposition home or self-care (01) ==
PROVIDERS: Emergency Provider Emergency Medicine; PCP Family Medicine
DX: R51.9 Headache, unspecified (principal); Z3A.35 35 weeks gestation of pregnancy
CPT/HCPCS: 59025; 70450; 70496; 70498; 96374; 99284; G0463; J1200; J2765; J7120; Q9967

== ENCOUNTER 2023-08-09 07:31 | Inpatient (IN) | payer BC, SELFPAY ==
--- OUTSIDE RECORDS SUMMARY | 2023-08-08 15:51 | XMS_ITS | Encounter Summary ---
Author Organization [place] Address [address] [facility] [place] [address] Care Team Providers Care Sql Server Dba Name Role Phone No Ref-Primary, Physician Primary Care Provider Oleg Aparicio PA-C Unavailable [phone] Ana Oreilly MD Unavailable Reason for Visit * Reason Comments Labor * Auth/Cert (Routine) Specialty Diagnoses / Procedures Referred By Contac t Referred To Contact debt collection specialist Diagnoses labor Sh Labor & Delivery [address] [phone] Referral ID Status Reason Start Date Expiration Date Visits Re quested Visits Authorized [id number] 1 1 Encounter Details Date Type Department Care Team (Latest Contact Info) Description 07/15/2023 6:03 PM CDT - 07/18/2023 10:20 AM CDT Hospital Encounter [facility] [address] [phone] Moira Roa MD [address] [address] Discharge Disposition: Home or [...] PM CDT documented in this encounter Discharge Summaries * Moira Roa MD - 07/18/2023 10:20 AM CDT [facility] Discharge Summary Gabrielle Mcmahon Age: [age] year old Date of : 1995 Date of Admission: 07/15/2023 Date of Discharge:: 08/08/2023 Admitting Physician: 07/18/2023 10:20 AM Discharge Physician: Moira Roa MD Home clinic: [facility] Admission Diagnoses: at 33w1d who admitted for threatened labor Hx of BL PE earlier this preg (in February) Discharge Diagnosis: same Procedures: Procedure(s): none No procedures performed during this admission Medications Prior to Admission: No medications prior to admission. Discharge Medications: Discharge Medication List as of 07/18/2023 9:10 AM CONTINUE these medications which have NOT CHANGED Details enoxaparin ANTICOAGULANT (LOVENOX) 100 MG/ML syringe Inject 1 mL (100 mg) Subcutaneous every 12 hours, Disp-60 mL, R-4, E-Prescribe Vit-Fe Fumarate-FA ( VITAMIN PO) Take 1 tablet by mouth daily, Historical Consultations: No consultations were requested during this admission Brief History of Illness: Pt transferred from [facility] for threatened PTL at 32w5d. She was given betamethasone and oral nifedipine. She has a hx of bilateral PE in this and was on outpatient Lovenox bid.This was initially held due to threat of labor. Hospital Course: The patient's hospital course was over all unremarkable. She made no cervical change despite some evidence of contraction on monitoring. She received two doses of betamethasone and after the second dose, nitrendipine was held. She was monitored for an additional 24 hours and no increasing labor symptoms presented. It was decided to continue her lovenox on the last day as she was open to having anun medicated labor and risk of DVT was increasing. Discharge Instructions and Follow-Up: Discharge diet: Regular Discharge activity: Activity as tolerated but decreased activity to avoid increased contractions Discharge follow-up: Follow up with primary care provider in 1 weeks Wound care N/a Discharge Disposition: Discharged to home Attestation: Amount of time performed on this discharge summary: 15 minutes. Moira Roa MD documented in this encounter Discharge Instructions * [...] Where can you learn more? Go to https://www.[email or web address].[email or web address] Software/patiented Enter N531 in the search box to learn more about Learning About When to Call Your Doctor During (After 20 Weeks). Current as of: August 30, 2022 Content Version: 14.0 ?? avox. Care instructions adapted under license by your healthcare professional. If you have questions about a medical condition or this instruction, always ask your healthcare professional. [employer]ox disclaims any warranty or liability for your [...] Mcmahon : 1995 Admit date: 07/15/2023 Acct: [id number] Assessment/Plan: Gabrielle Mcmahon is a at 33w1d who admitted for threatened labor. Today is HD#4. Pt transferred here from an outside facility and is unassigned to [facility]. contractions - minimal cervical change during admission. - continues to have irregular and non painful cramping. - s/p Nifedipine course - s/p BMZ 07/14, 07/15 - UDip WNL. NG/CT neg - GBS negative - s/p NICU consult - Tracings reactive - Dispo: plan for discharge today with low threshold to return for any increased symptoms. Pt Vidya Sanders chief deputy coroner number to call if she plans to return to [facility]. Hx of BL PE earlier this preg [...] cords Psych: mood appropriate FHT: tracings reactive [place]: irritable Labs/Imaging: Results for orders placed or [...] 100 mg, 100 mg, Subcutaneous, Q12H, Barbie oRwe MD, 100 mg at 07/18/23 0806 hydrOXYzine [...] Mcmahon : 1995 Admit date: 07/15/2023 Acct: [id number] Assessment/Plan: Gabrielle Mcmahon is a at 33w0d who admitted for threatened labor. Today is HD#3. Pt transferred here from an outside facility and is unassigned to [facility]. contractions - No cervical change on last [...] Bedtime PRN, Moira Roa MD David F. MD [facility] EVA Sanders PA 07/17/2023, 8:03 AM * Crissy Akins RN - 07/17/2023 12:00 AM CDT Pts GBS was collected at [place] on 07/14, pt received results via email [...] pending Urine GC pending GBS collected at [place] and pending. S/p NICU consult on 07/15/23 Hx of bilateral PE in this As outpatient, pt on lovenox 100 mg bid. Reordered for 1130am on 07/15 See hematology note for additional details. 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 Continue [...] not included. July 15, 2023 Gabrielle Mcmahon [id number] OB Admit History & Physical CC: contractions HPI: at 32w5d who was a transfer from [facility]. She has had adequate care up to this point. She was seen at her routine visit today where she shared with her provider that she was having on and off contractions over the last couple of weeks but increased frequency and pressure over the last couple of days. She was evaluated on labor and delivery in [place] and contractions were noted on NST. Transvaginal [...] and followed by hematology.Most recent encounter in [facility] on 06/1323. She has been followed by MFM for growth assessment. The last growth was on 06/20 at 18% with AC at 14%. They recommend growth every 4 weeks. Pt did have growth ultrasound on 07/13 in [place], vertex, EFW 27%, AC 30% Her OB [...] Negative GI: Negative BREAST: Negative : Negative STUDENT LIFE COORDINATOR: Negative CV: Negative PULMONARY: Negative MUSCULOSKELETAL: Negative [...] Resource Strain: Low Risk (02/21/2022) Received from [facility] Overall Financial Resource Strain (CARDIA) Difficulty of Paying Living Expenses: Not hard at all Food Insecurity: No Food Insecurity (02/21/2022) Received from [facility] Hunger Vital Sign Worried About Running Out of Food in the Last Year: Never true Ran Out of Food in the Last Year: Never true Transportation Needs: No Transportation Needs (02/21/2022) Received from [facility] PRAPARE - Transportation Lack of Transportation (Medical): No Lack of Transportation (Non-Medical): No Physical Activity: Insufficiently Active (02/21/2022) Received from [facility] Exercise Vital Sign Days of Exercise per Week: 3 days Minutes of Exercise per Session: 20 min Stress: Stress Concern Present (02/21/2022) Received from [facility] [employer] - Occupational Stress Questionnaire Feeling of Stress : To some extent Social Connections: Unknown (08/26/2022) Received from [employer] [facility], [employer] [facility] Social Connections Frequency of Communication with Friends and Family: Not on file Interpersonal Safety: Not At Risk (02/21/2022) Received from [facility] Humiliation, Afraid, Rape, and Kick questionnaire Fear of Current or Ex-Partner: No Emotionally Abused: No Physically Abused: No Sexually Abused: No Housing Stability: Low Risk (02/21/2022) Received from [facility] Housing Stability Vital Sign Unable to Pay [...] mg/dL Mucus Urine Present Abnormal /LPF Specific Star Urine 1.009 RBC Urine <1 /HPF Blood Urine Negative WBC Urine <1 /HPF pH Urine 8.0 High Squamous Epithelials Urine <1 /HPF Older Results important suggestion These results were recently updated but were collected or performed more than 30 days ago. Updated Order 07/15/231835 Hepatitis B Surface Antigen (External Result) Resulted: 01/26/23 0000 Final result Hepatitis B Surface Antigen (External) Negative 07/15/231835 Rubella Antibody IgG (External Result) Resulted: 01/26/23 0000 Final result Rubella Antibody IgG (External) Immune 07/15/231834 HIV-1 Antibody (External Result) Resulted: 01/26/23 0000 Final result HIV 1&2 Antibody (External) Negative 07/15/231834 ABO & RH (External Result) Resulted: 01/26/23 0000 Final result ABO (External) O Rh (External) POSITIVE Vitals: BP 120/71 (BP Location: Right arm, Cuff Size: Adult Regular) Pulse 114 Temp 98.4 ??F (36.9 ??C) (Temporal) Resp 18 Ht 1.702 m (5' 7) Wt 75.3 kg (166 lb) LMP 11/28/2022 BMI 26.00 kg/m?? FHT 140, mod joyce, reactive [place]: irregular contractions Alert Awake in NAD, very [...] pending Urine GC pending GBS collected at [place] and pending. Consider NICU consult tomorrow if applicable Hx of bilateral PE in this As outpatient, pt on lovenox 100 mg bid. Last dose at 0915 on 07/14. Will hold for tonight and if nolabor symptoms, plan to resume tomorrow morning. See hematology note for additional details. 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 Continue daily PNV Plan NST q shift and continuous monitoring if pt complaints of more that 5 contractions in an hour. Dispo; pt admitted to labor and delivery. Anticipate stay through the steroid window at minimum. 40 minutes spent on face to face time, documentation review, and h and p. Moira Roa MD MD Dept of PROJECT COORDINATOR RN July 15, 2023 documented in this encounter Consult Notes * Alma Acosta, CLUSTER BORE OPERATOR TOBACCO BLENDER - 07/15/2023 8:57 PM CDTAssociated Order(s): NURSE PRACT IP CONSULT Images from the original note were not included. [facility] Neonatology Antepartum Counseling Consult: I [...] lung development, nutrition, growth and development, and fdc outcomes. I also explained the basic criteria [...] doctors names if she comes back to [facility]. * Provider Notification - Crissy Akins [...] negative GBS result via email notification from [place]. * Provider Notification - Crissy Akins RN - 07/16/2023 10:30 PM CDT 07/16/230 Provider Notification Provider Name/Title Dr. Rowe Method [...] day. VSS. Pain consistent throughout day at 04/02. Pt feels crampy and lower back pain. This is the same feeling that she has felt since yesterday. Ay 0830 Dr. Rowe at bedside and didSVE. Pt /3. No bleeding or fluid seen. UP and [...] Report given to Crissy Osorio RN at 1915. * Plan of Care - Crissy Akins [...] (Venous Thromboembolism) Risk Recent Flowsheet Documentation Taken 07/15/20232199 by Crissy Akins RN VTE Prevention/Management: SCDs (sequential compression devices) on * Plan of Care - Donita Dye RN - 07/15/2023 5:35 PM CDT Goal Outcome Evaluation: Pt Arrived by ambulance at 1735 from being transferred from [facility]. Report received from EMS. Dr. Kumari is [...] feels crampy and slight pelvic pressure. At [place] she received 2 gr ampicillin at 1515. 30mg of Niphedipine at 1551, 1st dose of Beta at 1514 and an LR bolus of 1000cc [id number]. Cx seemed to space out after bolus. Pt has a hx of bilateral PE in . No diagnosis givenbut taking 100mg of lovenox BID and followed by Hem. She also had a wet prep done today 07/14 at ( [place] labor and delivery) and negative, Amniosure which was negative. FFN done and positive. US done as well for cervical length and 8mm 2, 80-3. GBS was colleted at [place] as well 07/14. Once pt here UA/UC [...] - BLOOD ORDERABL ES Performing Organization Address [facility]/ZIP Co de Phone Number LABORATORY [facility] [address], [address] [address], [facility] [phone] * Rupture of Membranes by ROM Plus [...] BODY FLUIDS OR DERABLES Performing Organization Address [facility] Co de Phone Number LABORATORY [facility] [address], [address], [place] [address], [facility] [phone] * (ABNORMAL) Wet preparation (07/17/2023 6:52 PM [...] MD LAB - MICRO GENERAL ORDERABLES LABORATORY [facility] Acute Care Lab [address] floor, [address] [place] [address], [facility] [phone] * Adult Type and Screen (07/15/2023 9:31 PM CDT) Pathologist [facility] ABO/RH(D) O POS 07/15/2023 7:26 PM CDT BLOOD BANK Antibody Screen Negative Negative 07/15/2023 7:26 PM CDT BLOOD BANK SPECIMEN EXPIRATION DATE [id number] 07/15/2023 7:26 PM CDT BLOOD BANK Blood STRUCTURE OF RIGHT UPPER LIMB / Unknown Venipuncture / Unknown 07/15/2023 9:31 PM CDT 07/15/2023 9:34 PM CDT Moira Roa MD LAB - BLOOD BANK MONISHA T ORDER BLOOD BANK [address] [place] [address], [facility] * (ABNORMAL) CBC with platelets and differential [...] MD LAB - BLOOD ORDERABL ES LABORATORY [facility] Acute Care Lab [address] 1[address] floor, [address] [place] [address], [facility] [phone] * (ABNORMAL) Creatinine (07/15/2023 9:31 PM CDT) Creatinine 0.47(L) 0.51 - 0.95 mg/dL 07/15/2023 9:55 PM CDT LABORATORY GFR Estimate >90 >60 mL/min/1.7 3m2 07/15/2023 9:55 PM CDT LABORATORY Blood STRUCTURE OF RIGHT UPPER LIMB / Unknown Venipuncture / Unknown 07/15/2023 9:31 PM CDT 07/15/2023 9:34 PM CDT Moira Roa MD LAB - BLOOD ORDERABL ES LABORATORY [facility] Lab [address], [address] [address], [facility] [phone] * (ABNORMAL) UA with Microscopic reflex to Culture (07/15/2023 6:45 PM CDT) Color Urine Straw Colorless, Straw, Light Yellow, Yellow 07/15/2023 7:04 PM CDT LABORATORY Appearance Urine Clear Clear 07/15/19 7:04 PM CDT LABORATORY Glucose Urine Negative Negative mg/dL 07/15/2023 7:04 PM CDT LABORATORY Bilirubin Urine Negative Negative 7:04 PM CDT LABORATORY Ketones Urine 40(A) Negative mg/dL 07/15/2023 7:04 PM CDT LABORATORY Specific Star Urine 1.009 1.003 - 1.035 07/15/2023 7:04 [...] MD LAB - URINE ORDERABL ES LABORATORY [facility] Acute Care Lab [address] 1[address], [address] [place] [address], [facility] [phone] * Chlamydia trachomatis/Neisseria gonorrhoeae by PCR (07/15/2023 6:23 PM CDT) [facility] Chlamydia Trachomatis Negative Negative 07/16/2023 12:02 PM CDT [facility] Comment: Negative for C. trachomatis rRNA by dry room attendant mediated amplification. A negative result by dry room attendant mediated amplification does not preclude the presence of infection because results are dependent on proper and adequate collection, absence of inhibitors and sufficient rRNA to be detected. Neisseria gonorrhoeae Negative Negative 07/16/2023 12:02 PM CDT [facility] Comment:Negative for N. gono rrhoeae rRNA by dry room attendant mediated amplification. A negative result by dry room attendant mediated amplification does not preclude the presence of C. trachomatis infection because results are dependent on proper and adequate collection, absence of inhibitors and sufficient rRNA to be detected. Urine VOIDED URINE SPECIMEN / Unknown Non-blood Collection / Unknown 07/15/2023 6:23 PM CDT 07/15/2023 6:30 PM CDT Moira Roa MD LAB - MICRO GENERAL ORDERABLES Performing Organization Address [facility] Co de Phone Number [facility]AT[facility] Inf. Diseases Diag. Lab [address] [facility] [place] [address], [facility] * Group B Streptococcus (External Result) (07/15/2023) Group B Streptococcus (External) Negative Negative EXTERNAL LAB Patient Reported LAB - HIM EXTERNAL R ESULT Performing Organization Address [facility]/ZIP Co de Phone Number EXTERNAL LAB External Lab * ABO & RH (External Result) (01/26/2023) ABO (External) O EXTERNAL LAB Rh (External) POSITIVE EXTERNAL LAB Patient Reported LAB - HIM EXTERNAL R ESULT Performing Organization Address [facility] Co de Phone Number EXTERNAL LAB External Lab * HIV-1 Antibody (External Result) (01/26/2023) HIV 1&2 Antibody (External) Negative Nonreactive EXTERNAL LAB Patient Reported LAB - HIM EXTERNAL R ESULT Performing Organization Address [facility] Co de Phone Number EXTERNAL LAB External Lab * Rubella Antibody IgG (External Result) (01/26/2023) Rubella Antibody IgG (External) Immune Nonreactive EXTERNAL LAB Patient Reported LAB - HIM EXTERNAL R ESULT Performing Organization Address [facility] Co de Phone Number EXTERNAL LAB External Lab * Hepatitis B Surface Antigen (External Result) (01/26/2023) Hepatitis B Surface Antigen (External) Negative Nonreactive EXTERNAL LAB Patient Reported LAB - HIM EXTERNAL R ESULT Performing Organization Address [facility] Co de Phone Number EXTERNAL LAB [...] at 192, Antepartum metoclopramide (REGLAN) injection 10 mg 10 [...] discontinued by Provider)1937 ($Given - Provider: Crissy kAins RN) 0806 ($Given - Provider: Donita Dye, MAC) fluconazole (DIFLUCAN) tablet 150 mg (COMPLETED) Routine, [...] Donita Dye RN)1552 ($Given - Provider: Donita Dye, MAC)2157 ($Given - Provider: Crissy Akins RN) 0352 ($Given - Provider: Crissy Akins RN)1003 ($Given - Provider: Donita Dye, MAC) multivitamin w/iron per tablet 1 tablet 1 [...] F (core); headaches., Starting on Tue07/15/23 at 1923, Maximum acetaminophen dose from all sources = 75 mg/kg/day not to exceed 4 grams/day., Antepartum hydrOXYzine HCl (ATARAX) tablet 50 mg 50 mg, Oral, AT BEDTIME PRN, itching, sleep, Starting on Tue07/15/23 at 1923, Antepartum metoclopramide (REGLAN) injection 10 mg(Linked Group 1) 10 mg, Intravenous, Administer over 2 Minutes, EVERY 6 HOURS PRN, nausea, vomiting, Starting on Tue07/15/23 at 191, This is Step 1 of OB nausea and vomiting management. If nausea is not resolved in 30 minutes, go to Step 2 (Zofran). Avoid use if patient has full bowel obstruction or perforation. Irritant., Antepartum metoclopramide (REGLAN) tablet 10 mg(Linked Group 1) 10 mg, Oral, EVERY 6 HOURS PRN, nausea and vomiting, Starting on Tue07/15/23 at 1917, This is Step 1 of OB nausea [...] at 1922, Hold for loose stools., Antepartum Linked Groups [...] PRN, nausea, vomiting, Starting on Tue07/15/23 at 191, This is Step 2 of OB nausea [...] over 2-5 Minutes, Starting on Tue07/15/23 at 191, This is Step 2 of OB nausea and vomiting management. Give if nausea not resolved 30 minutes after giving metoclopramide (REGLAN). If nausea is not resolved in 15 minutes, go to Step 3 (Compazine). Irritant., Antepartum Group 3: prochlorperazine (COMPAZINE) injection 10 mgJump to med 10 mg, Intravenous, EVERY 6 HOURS PRN, nausea, vomiting, Administer over 2 Minutes, Starting on Tue07/15/23 at 1916, This is Step 3 of OB nausea and vomiting management. Give if nausea not resolved 15 minutes after giving ondansetron (ZOFRAN). If nausea is not resolved in 30 minutes, notify provider., Antepartum Or prochlorperazine (COMPAZINE) tablet 10 mgJump to med 10 mg, Oral, EVERY 6 HOURS PRN, nausea, vomiting, Starting on Tue07/15/23 at 191, This is Step 3 of OB nausea and vomiting management. Give if nausea not resolved 15 minutes after giving ondansetron (ZOFRAN). If nausea is not resolved in 30 minutes, notify provider., Antepartum Or prochlorperazine (COMPAZINE) suppository 25 mgJump to med 25 mg, Rectal, EVERY 12 HOURS PRN, nausea, vomiting, Starting on Tue07/15/23 at 1916, This is Step 3 of OB nausea [...] Antepartum documented in this encounter Care Teams Sql Server Dba Relationship Specialty Start Date End Date No Ref-Primary, Physician PCP - General 03/31/23 Oleg Aparicio, PABrightC [facility] [address] [place] [address] Assigned Cancer Care Provider 05/06/23 Ana Oreilly MD [address] [place] [address] [address] [place], [place] [address] Assigned OBGYN Provider 05/06/23 documented as of this encounter
--- OUTSIDE RECORDS SUMMARY | 2023-08-08 15:51 | XMS_ITS | Encounter Summary ---
Author Organization [place] Address [address] [place] [address] Care Team Providers Care Law Writer Name Role Phone No Ref-Primary, Physician Primary Care Provider Oleg Aparicio PA-C Unavailable [phone] Ana Oreilly MD Unavailable [phone] Encounter Details Date Type Department Care Team (Late st Contact Info) Description 08/04/2023 Telephone [facility] [place] [address] [place] [address] Jeanette Truong MD [address] [place] [address] 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 Tobacco Use Types [...] encounter Miscellaneous Notes * Telephone Encounter - Jeanette Truong MD - 08/04/2023 12:13 PM CDT TC from Dr. Rajan Lantigua to inquire about the possibility to recommend early term or late induction of labor for this patient. at 35w4d with prior 36w delivery due to spontaneous delivery. Now on lovenox 60 mgBID for PE in . Has had uterine contractions including transfer to larger hospital a week ago with contractions and no cervical change. Got betamethasone. Now is 3-4 cm dilated but is not in labor. Concern for risk of delivery while on therapeutic lovenox. I reviewed with the provider the [facility] consult from 04/12/23 for this indication. At this time I cannot recommend an early induction for this indication. I have encouraged them to have patient hold lovenox dose if signs/symptoms of labor and manage as reviewed in the consult. Alternatively they could consider [facility] if they have a protocol there or she may need a consult with theirhematologists to establish a protocol, although this is not something that we recommend as standardwithin our [facility] group at this time. I do not see an indication for transfer to [facility] care at this time, given distance from our hospital and concern for rapid progressive labor. Plan to manage as noted for in her 04/12/23 consultation as well. Jeanette Truong MD documented in this encounter Plan of Treatment Not on file documented as of this encounter Visit Diagnoses Diagnosis uterine contractions- Primary Threatened premature labor, unspecified as to episode of care documented in this encounter Care Teams Law Writer Relationship Specialty Start Date End Date No Ref-Primary, Physician PCP - General 03/31/23 Oleg Aparicio, PABrightC [address] [place], [place] [phone] Assigned Cancer Care Provider 05/06/23 Ana Oreilly MD [address] [place], [place] [address] Assigned OBGYN Provider 05/06/23 documented as of this encounter
--- OUTSIDE RECORDS SUMMARY | 2023-08-08 15:51 | XMS_ITS | Clinical Summary ---
Author Organization [place] Address [address] [facility] [place] [address] Care Team Providers Care Frame And Scrap Crusher Name Role Phone No Ref-Primary, Physician Primary Care Provider Oleg Aparicio PA-C Unavailable [phone] Ana Oreilly MD Unavailable [phone] Allergies No known active allergies Medications [...] Encounters Date Type Department Care Team Description 08/04/2023 Orders Only [facility] [address] [place] [phone] Oleg Aparicio PA-C 08/04/2023 Telephone [facility] [place] [address] [place] [address] Jeanette Truong MD 07/28/2023 Telephone [facility] [address] [place] [phone] Jerry Louie Hemo Call To Schedule Appointment (Talked with Pt- per ptOleg advised to F/U one month after child is born. Will call back to schedule.) 07/15/2023 6:03 PM CDT - 07/18/2023 10:20 AM CDT Hospital Encounter [facility] [address] [phone] Moira Roa MD Discharge Disposition: Home or Self Care 07/15/[address] [facility] [address] [phone] Moira Roa MD 07/15/2023 Telephone [facility] [address] [place] [address] [address] [place] [phone] Oleg Aparicio PA-C CONSENT (Called pt to receive verbal consent to fax to another health office on her care team. LVM to CB.) 07/04/2023 2:30 PM CDT Office Visit [facility] [address] [place] [address] [address] [place] [phone] Oleg Aparicio PA-C Pulmonary embolism affecting in second trimester (Primary Dx); Family history of blood clots; 31 weeks gestation of 07/04/2023 Travel 06/22/2023 2:00 PM CDT Lab [facility] [address] [place] [address] Pulmonary embolism affecting in second trimester 06/22/2023 MyC Medical Advice [facility] [address] [place] [address] Oleg Aparicio PA-C 06/21/2023 10:00 AM CDT Office Visit [facility] [place] [address] [place] [address] Ori Adame MD Encounter for ultrasound to check growth (Primary Dx) 06/21/2023 9:30 AM CDT - 06/21/2023 11:59 PM CDT Hospital Encounter [place] [address] [facility] [address] [facility] [address] [place] [address] Ori Adame MD Encounter for ultrasound to check growth Discharge Disposition: Home or Self Care 06/21/2023 Travel 05/31/2023 11:30 AM CDT Office Visit [place] [address] [facility] [address] [place] [address] Ori Adame MD Encounter for ultrasound to check growth (Primary Dx) 05/31/2023 10:45 AM CDT - 05/31/2023 11:59 PM CDT Hospital Encounter [place] [address] [facility] [address] [place] [address] Ori Adame MD Encounter for ultrasound to assess growth Discharge Disposition: Home or Self Care 05/31/2023 Travel 05/10/2023 10:00 AM CDT Office Visit [place] [address] [facility] [address] [place] [address] Ori Adame MD Encounter for follow-up ultrasound of anatomy (Primary Dx); History of delivery, currently ; Encounter for ultrasound to assess growth 05/10/2023 9:28 AM CDT - 05/10/2023 11:59 PM CDT Hospital Encounter [facility] [place] [address] [facility] [address] [place] [address] Ori Adame MD Pulmonary embolism affecting in second trimester Discharge Disposition: Home or Self Care 05/10/2023 Travel from Last 3 Months Immunizations Name [...] 08/07/2023 INFLUENZA VACCINE (Season Ended) 2023 01/26/20 PAP 12/12/2023 12/11/2020 HIV SCREENING Completed 01/26/2023 [...] CDT Pulmonary embolism affecting in second trimester [facility] US COMPREHENSIVE SINGLE F/U Routine 06/21/2023 10:50 AM CDT Encounter for ultrasound to check growth [facility] US COMPREHENSIVE SINGLE F/U Routine 05/31/2023 11:40 AM CDT Encounter for ultrasound to assess growth [facility] US COMPREHENSIVE SINGLE F/U Routine 05/10/2023 10:08 AM CDT Pulmonary embolism affecting in second trimester HIV 1&2 ANTIBODY (EXTERNAL RESULT) Routine 01/26/2023 [...] MD LAB - BLOOD ORDERABL ES LABORATORY [facility] [address] 1st floor, [address] [place] [address], [place] [phone] * Rupture of Membranes by ROM Plus [...] MD LAB - BODY FLUIDS OR DERABLES LABORATORY [facility] [address] 1st floor, Room [address] [place] [address], [facility] [phone] * (ABNORMAL) Wet preparation (07/17/2023 6:52 PM [...] MD LAB - MICRO GENERAL ORDERABLES LABORATORY [facility] [address] 1st floor, [address] [place] [address], [facility] [phone] * (ABNORMAL) CBC with platelets and differential [...] MD LAB - BLOOD ORDERABL ES LABORATORY [facility] [address] 1st floor, [address] [place] [address], [facility] [phone] * Adult Type and Screen (07/15/2023 9:31 PM CDT) ABO/RH(D) O POS 07/15/2023 7:26 PM CDT BLOOD BANK Antibody Screen Negative Negative 07/15/2023 7:26 PM CDT BLOOD BANK SPECIMEN EXPIRATION DATE [id number] 07/15/2023 7:26 PM CDT BLOOD BANK Blood STRUCTURE OF RIGHT UPPER LIMB / Unknown Venipuncture / Unknown 07/15/2023 9:31 PM CDT 07/15/2023 9:34 PM CDT Moira Roa MD LAB - BLOOD BANK MONISHA T ORDER BLOOD BANK [address] [place] [address], [facility] * (ABNORMAL) Creatinine (07/15/2023 9:31 PM CDT) Creatinine 0.47(L) 0.51 - 0.95 mg/dL 07/15/2023 9:55 PM CDT LABORATORY GFR Estimate >90 >60 mL/min/1.7 3m2 07/15/2023 9:55 PM CDT LABORATORY Blood STRUCTURE OF RIGHT UPPER LIMB / Unknown Venipuncture / Unknown 07/15/2023 9:31 PM CDT 07/15/2023 9:34 PM CDT Moira Roa MD LAB - BLOOD ORDERABL ES LABORATORY [facility] [address] 1st floor, [address] [place] [address], [place] [phone] * (ABNORMAL) UA with Microscopic reflex to Culture (07/15/2023 6:45 PM CDT) Color Urine Straw Colorless, Straw, Light Yellow, Yellow 07/15/2023 7:04 PM CDT LABORATORY Appearance Urine Clear Clear 07/15/19 7:04 PM CDT LABORATORY Glucose Urine Negative Negative mg/dL 07/15/2023 7:04 PM CDT LABORATORY Bilirubin Urine Negative Negative 7:04 PM CDT LABORATORY Ketones Urine 40(A) Negative mg/dL 07/15/2023 7:04 PM CDT LABORATORY Specific [place] Urine 1.009 1.003 - 1.035 07/15/2023 7:04 [...] MD LAB - URINE ORDERABL ES LABORATORY [facility] [address] 1st floor, [address] [place] [address], [facility] [phone] * Chlamydia trachomatis/Neisseria gonorrhoeae by PCR (07/15/2023 6:23 PM CDT) Chlamydia Trachomatis Negative Negative 07/16/2023 12:02 PM CDT [facility] Comment: Negative for C. trachomatis rRNA by button pusher mediated amplification. A negative result by button pusher mediated amplification does not preclude the presence of infection because results are dependent on proper and adequate collection, absence of inhibitors and sufficient rRNA to be detected. Neisseria gonorrhoeae Negative Negative 07/16/2023 12:02 PM CDT [facility] Comment:Negative for N. gono rrhoeae rRNA by button pusher mediated amplification. A negative result by button pusher mediated amplification does not preclude the presence of C. trachomatis infection because results are dependent on proper and adequate collection, absence of inhibitors and sufficient rRNA to be detected. Urine VOIDED URINE SPECIMEN / Unknown Non-blood Collection / Unknown 07/15/2023 6:23 PM CDT 07/15/2023 6:30 PM CDT Moira Roa MD LAB - MICRO GENERAL ORDERABLES [facility] Inf. Diseases Diag. Lab [address] [place] [address], [facility] * Group B Streptococcus [...] LAB - BLOOD ORDERABL ES [facility]U LABORATORY [facility] Core Lab [address] [facility], [address] [place] [address], [facility] * [facility] Comprehensive Single F/U (06/21/2023 10:50 AM CDT) [...] ? Study Date: ??06/21/2023 9:50am Pat. NO: ??[id number] ?Referring ??MD: TRISTA MELLO Site: ??[facility] ? Montessori Lead Teacher: Chanda Lazo RDMS : ??1995 ?Age: [...] 2 lb 12 ?oz EFW by ?Hadlock ([id number]) Head / Face / Neck Biometry: Telephone Lineman ? 4.9 ? mm CM ?5.5 ? mm ANATOMY ----- The following structures appear normal: Head / Neck ? Cranium. Head size. Head shape. Lateral ventricles. Midline falx. Cerebellum. Cisterna magna. Thalami. Face ? Lips. Profile. Nose. Heart / Thorax ?4-chamber view. RVOT view. LVOT view. 0-rijdmk-rrwqwki view. ? Diaphragm. Abdomen ? Stomach. Kidneys. [...] [place] Study Date: 06/21/2023 9:50am Pat. NO: [id number] Referring MD: TRISTA MELLO Site: [facility] Montessori Lead Teacher: Chanda LazoMELLY : 1995 Age: 28 ----- [...] 2 lb 12 oz EFW by Hadlock ([id number]) Head / Face / Neck Biometry: Telephone Lineman 4.9 mm CM 5.5 mm ANATOMY ----- The following structures appear normal: Head / Neck Cranium. Head size. Head shape.Lateral ventricles. Midline falx. Cerebellum. Cisterna magna. Thalami. Face Lips. Profile. Nose. Heart / Thorax 4-chamber view. RVOT view. LVOT view.0-ypdnpp-zmkbtuz view. Diaphragm. Abdomen Stomach. Kidneys. Bladder. Spine [...] fluid volume appeared normal. Ori Adame MD [facility] ORDERABL ES * HIV-1 Antibody (External Result) (01/26/2023) HIV 1&2 Antibody (External) Negative Nonreactive EXTERNAL LAB Patient Reported LAB - HIM EXTERNAL R ESULT EXTERNAL LAB External Lab from Last 3 Months or Most Recently Relevant to Health Maintenance Advance Directives For more information, please contact: [phone] * Full Code (Latest Code Status on File) Date Activated Date Inactivated Comments 07/15/2023 7:25 PM 07/18/2023 1:55 PM All basic an d advanced life-sustaining interventions are performed as appropriate Question Answer Comments Code status determined by: Discussion with patie nt/ legal decision maker Care Teams Frame And Scrap Crusher Relationship Specialty Start Date End Date No Ref-Primary, Physician PCP - General 03/31/23 Oleg Aparicio, PA-C [facility] [address] [place] [address] Assigned Cancer Care Provider 05/06/23 Ana Oreilly MD [address] [address] [place] [address] Assigned OBGYN Provider 05/06/23
--- OUTSIDE RECORDS SUMMARY | 2023-08-08 15:51 | XMS_ITS | Continuity of Care Document ---
Author Organization [facility] Address [address] [place] [address] Phone Care Team Providers Care Accounting Officer Name Role Phone Moira Roa MD Unavailable [...] [address], [place], [place], [id number] , [place] tel: [phone] [facility] No Information 4 Crispin Pizarro. [address], [place], [address], [place]. tel: [phone] Subsequent Hospital Care MDM Straightforward Or LOW 25 MIN [facility], [address], [place], [place], [id number] , [place] tel: [phone] [facility] IP No Information 4 Soledad Valentin. [address], [address], [place], [address], [place]. tel: [phone] Initial Hospital Inpatient Or Observation Moderate MDM 55min [facility], [address], [place], [place], [id number] , [place] tel: [phone] [facility] IP labor without delivery, third trimesterPersona l history of pre-term laborInfection of other part of genital tract in , third trimesterPersona l history of pulmonary [id number] weeks gestation of pregnancyStrepto coccus B carrier state complicating [id number] weeks gestation of 4 [facility]. [address], [place], [address], [place]. tel:[phone] Family History Family Member Type Diagnosis Age At Onset No Information Payers Payer name Insurance type Covered alliance party ID Authoriza tion(s) No Information 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 Type Description Quantity Date Captured Comments Sex Female Smoking Status No Information Chief Complaint And Reason For Visit No Information History Of Present Illness Encounter Date Complaint History Of Prese nt Illness No Information Instructions Date Instruction Additional Infor mation No Information Assessments Type Assessment Date No Information
--- OUTSIDE RECORDS SUMMARY | 2023-08-08 15:51 | XMS_ITS | Encounter Summary ---
Author Organization [place] Address [address] [facility] [place] [address] Care Team Providers Care Grinding And Polishing Laborer Name Role Phone No Ref-Primary, Physician Primary Care Provider Oleg Aparicio PA-C Unavailable [phone] Ana Oreilly MD Unavailable [phone] Encounter Details Date Type Department Care Team (Late st Contact Info) Description 07/15/2023 Hospital Encounter [facility] [address] [phone] Moira Roa MD [address] [id number] 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 Tobacco Use Types Packs/Day Years [...] on filedocumented in this encounter Care Teams Grinding And Polishing Laborer Relationship Specialty Start Date End Date No Ref-Primary, Physician PCP - General 03/31/23 Oleg Aparicio, PABrightC [address] [place] [address] [address] [place], [place] [address] Assigned Cancer Care Provider 05/06/23 Ana Oreilly MD [address] [facility] [address] [place], [place] [address] Assigned OBGYN Provider 05/06/23 documented as of this encounter
--- OUTSIDE RECORDS SUMMARY | 2023-08-08 15:51 | XMS_ITS | Referral Summary ---
Author Organization [place] Address [address] [facility] [place] [address] Care Team Providers Care Flute Polisher Name Role Phone No Ref-Primary, Physician Primary Care Provider Oleg Aparicio PA-C Unavailable [phone] Ana Oreilly MD Unavailable [phone] Encounters Date Type Department Care Team Description 08/04/2023 Orders Only [facility] [address] [place] [address] Oleg Aparicio PA-C 08/04/2023 Telephone [facility] [place] [address] [place], [place] [address] Jeanette Truong MD 07/28/2023 Telephone [facility] [address] [place] [address] Resource, Ur Hemo Call To Schedule Appointment (Talked with Pt- per Oleg reddy advised to F/U one month after child is born. Will call back to schedule.) 07/15/2023 6:03 PM CDT - 07/18/2023 10:20 AM CDT Hospital Encounter [facility] [address] [address] Moira Roa MD Discharge Disposition: Home or Self Care 07/15/2023 Hospital Encounter [facility] [address] [place] [address] Moira Roa MD 07/15/2023 Telephone [facility] [address] [place] [address] Oleg Aparicio PA-C CONSENT (Called pt to receive verbal consent to fax to another health office on her care team. LVM to CB.) 07/04/2023 Travel 07/04/2023 2:30 PM CDT Office Visit [facility] [address] [place] [phone] Oleg Aparicio PA-C Pulmonary embolism affecting in second trimester (Primary Dx); Family history of blood clots; 31 weeks gestation of 06/22/2023 2:[address] [facility] [address] [facility] [address] [place] [address] Pulmonary embolism affecting in second trimester 06/22/2023 MyC Medical Advice [facility] [address] [place] [address] Oleg Aparicio PA-C 06/21/2023 Travel 06/21/2023 10:00 AM CDT Office Visit [facility] Medicine [facility] [address] [place] [address] Ori Adame MD Encounter for ultrasound to check growth (Primary Dx) 06/21/2023 9:30 AM CDT - 06/21/2023 11:59 PM CDT Hospital Encounter [facility] Medicine [facility] [address] [place] [address] Ori Adame MD Encounter for ultrasound to check growth Discharge Disposition: Home or Self Care 05/31/2023 Travel 05/31/2023 11:30 AM CDT Office Visit [facility] Medicine [facility] [address] [place] [address] Ori Adame MD Encounter for ultrasound to check growth (Primary Dx) 05/31/2023 10:45 AM CDT - 05/31/2023 11:59 PM CDT Hospital Encounter [facility] Medicine [facility] [address] [facility] [address] [place] [address] Ori Adaem MD Encounter for ultrasound to assess growth Discharge Disposition: Home or Self Care 05/10/2023 Travel 05/10/2023 10:00 AM CDT Office Visit [facility] Medicine [place] [address] [facility] [address] [place] [address] Ori Adame MD Encounter for follow-up ultrasound of anatomy (Primary Dx); History of delivery, currently ; Encounter for ultrasound to assess growth 05/10/2023 9:28 AM CDT - 05/10/2023 11:59 PM CDT Hospital Encounter [facility] Medicine [place] [address] [facility] [address] [place] [address] Ori Adame MD Pulmonary embolism affecting in second trimester Discharge Disposition: Home or Self Care from Last 3 Months Allergies No known [...] CDT Pulmonary embolism affecting in second trimester [facility] US COMPREHENSIVE SINGLE F/U Routine 06/21/2023 10:50 AM CDT Encounter for ultrasound to check growth [facility] US COMPREHENSIVE SINGLE F/U Routine 05/31/2023 11:40 AM CDT Encounter for ultrasound to assess growth [facility] US COMPREHENSIVE SINGLE F/U Routine 05/10/2023 10:08 AM CDT Pulmonary embolism affecting in second trimester HIV 1&2 ANTIBODY (EXTERNAL RESULT) Routine 01/26/2023 from Last 3 Months or Most Recently Relevant to Health Maintenance Results * Platelet count (07/18/2023 8:14 AM CDT) [facility] Platelet Count 170 150 - 450 10e3/uL 07/18/2023 8:32 AM CDT LABORATORY Blood STRUCTURE OF RIGHT UPPER LIMB / Unknown Venipuncture / Unknown 07/18/2023 8:14 AM CDT 07/18/2023 8:27 AM CDT Moira Roa MD LAB - BLOOD ORDERABL ES Performing Organization Address [facility] Co de Phone Number [facility] Lab [address] 1st floor, [address] [phone], [facility] [phone] * Rupture of Membranes by ROM Plus [...] BODY FLUIDS OR DERABLES Performing Organization Address [facility] Co de Phone Number [facility] Lab [address] 1st floor, [address], [place] [address], [facility] [phone] * (ABNORMAL) Wet preparation (07/17/2023 6:52 PM [...] MD LAB - MICRO GENERAL ORDERABLES LABORATORY [facility] [address] 1st floor, [address] [place] [address], [facility] [phone] * (ABNORMAL) CBC with platelets and differential (07/15/2023 9:31 PM CDT) [facility] WBC Count 10.6 4.0 - 11.0 10e3/uL [...] [address] 1st floor, [address] [place] [address], [facility] [phone] * Adult Type and Screen (07/15/2023 9:31 PM CDT) ABO/RH(D) O POS 07/15/2023 7:26 PM CDT BLOOD BANK Antibody Screen Negative Negative 07/15/2023 7:26 PM CDT BLOOD BANK SPECIMEN EXPIRATION DATE [id number] 07/15/2023 7:26 PM CDT BLOOD BANK Blood STRUCTURE OF RIGHT UPPER LIMB / Unknown Venipuncture / Unknown 07/15/2023 9:31 PM CDT 07/15/2023 9:34 PM CDT Moira Roa MD LAB - BLOOD BANK MONISHA T ORDER BLOOD BANK [address] [place] [address], [facility] * (ABNORMAL) Creatinine (07/15/2023 9:31 PM CDT) Creatinine 0.47(L) 0.51 - 0.95 mg/dL 07/15/2023 9:55 PM CDT LABORATORY GFR Estimate >90 >60 mL/min/1.7 3m2 07/15/2023 9:55 PM CDT LABORATORY Blood STRUCTURE OF RIGHT UPPER LIMB / Unknown Venipuncture / Unknown 07/15/2023 9:31 PM CDT 07/15/2023 9:34 PM CDT Moira Roa MD LAB - BLOOD ORDERABL ES Performing Organization Address City/[facility]/ZIP Co de Phone Number LABORATORY [facility] [address] 1st floor, [address] [place] [address], [facility] [phone] * (ABNORMAL) UA with Microscopic reflex to Culture (07/15/2023 6:45 PM CDT) Color Urine Straw Colorless, Straw, Light Yellow, Yellow 07/15/2023 7:04 PM CDT LABORATORY Appearance Urine Clear Clear 07/15/19 7:04 PM CDT LABORATORY Glucose Urine Negative Negative mg/dL 07/15/2023 7:04 PM CDT LABORATORY Bilirubin Urine Negative Negative 7:04 PM CDT LABORATORY Ketones Urine 40(A) Negative mg/dL 07/15/2023 7:04 PM CDT LABORATORY Specific [place] Urine 1.009 1.003 - 1.035 07/15/2023 7:04 [...] [address] 1st floor, [address] [place] [address], [facility] [phone] * Chlamydia trachomatis/Neisseria gonorrhoeae by PCR (07/15/2023 6:23 PM CDT) Chlamydia Trachomatis Negative Negative 07/16/2023 12:02 PM CDT [facility] Comment: Negative for C. trachomatis rRNA by supervisor felling bucking mediated amplification. A negative result by supervisor felling bucking mediated amplification does not preclude the presence of infection because results are dependent on proper and adequate collection, absence of inhibitors and sufficient rRNA to be detected. Neisseria gonorrhoeae Negative Negative 07/16/2023 12:02 PM CDT [facility] Comment:Negative for N. gono rrhoeae rRNA by supervisor felling bucking mediated amplification. A negative result by supervisor felling bucking mediated amplification does not preclude the presence of C. trachomatis infection because results are dependent on proper and adequate collection, absence of inhibitors and sufficient rRNA to be detected. Urine VOIDED URINE SPECIMEN / Unknown Non-blood Collection / Unknown 07/15/2023 6:23 PM CDT 07/15/2023 6:30 PM CDT Moira Roa MD LAB - MICRO GENERAL ORDERABLES [facility] Inf. Diseases Diag. Lab [address] [facility], [address] [place] [address] * Group B Streptococcus (External Result) (07/15/2023) Group B Streptococcus (External) Negative Negative EXTERNAL LAB Patient Reported LAB - HIM EXTERNAL R ESULT Performing Organization Address City/[facility]/ZIP Co de Phone Number EXTERNAL LAB External [...] - BLOOD ORDERABL ES Performing Organization Address City/[facility]/ZIP Co de Phone Number [facility] Core Lab [address] [facility], [address] [place] [address] * [facility] US Comprehensive Single F/U (06/21/2023 10:50 [...] ? Study Date: ??06/21/2023 9:50am Pat. NO: ??[id number] ?Referring ??: TRISTA MELLO Site: ??[facility] ? Lead Web Developer: Chanda Lazo RDMS : ??1995 ?Age: ?? [...] 2 lb 12 ?oz EFW by ?Hadlock ([id number]-FL) Head / Face / Neck Biometry: County Library Director ? 4.9 ? mm CM ?5.5 ? mm ANATOMY ----- The following structures appear normal: Head / Neck ? Cranium. Head size. Head shape. Lateral ventricles. Midline falx. Cerebellum. Cisterna magna. Thalami. Face ? Lips. Profile. Nose. Heart / Thorax ?4-chamber view. RVOT view. LVOT view. 0-zmajkw-uoprket view. ? Diaphragm. Abdomen ? Stomach. Kidneys. [...] [place] Study Date: 06/21/2023 9:50am Pat. NO: [id number] Referring MD: TRISTA MELLO Site: [facility] Lead Web Developer: Chanda Lazo RDMS : 1995 Age: 28 [...] 2 lb 12 oz EFW by Hadlock (XRO-CR-OW-FL) Head / Face / Neck Biometry: County Library Director 4.9 mm CM 5.5 mm ANATOMY ----- The following structures appear normal: Head / Neck Cranium. Head size. Head shape.Lateral ventricles. Midline falx. Cerebellum. Cisterna magna. Thalami. Face Lips. Profile. Nose. Heart / Thorax 4-chamber view. RVOT view. LVOT view.8-[id number]-jdfbsxc view. Diaphragm. Abdomen Stomach. Kidneys. Bladder. Spine [...] [facility] US ORDERABL ES * HIV-1 Antibody (External Result) (01/26/2023) HIV 1&2 Antibody (External) Negative Nonreactive EXTERNAL LAB Patient Reported LAB - HIM EXTERNAL R ESULT EXTERNAL LAB External Lab from Last 3 Months or Most Recently Relevant to Health Maintenance Advance Directives For more information, please contact: [phone] * Full Code (Latest Code Status on File) Date Activated Date Inactivated Comments 07/15/2023 7:25 PM 07/18/2023 1:55 PM All basic an d advanced life-sustaining interventions are performed as appropriate Question Answer Comments Code status determined by: Discussion with jonnie nt/ legal decision maker Care Teams Flute Polisher Relationship Specialty Start Date End Date No Ref-Primary, Physician PCP - General 03/31/23 Oleg Aparicio, PA-C [address] [place] [address] Assigned Cancer Care Provider 05/06/23 Ana Oreilly MD [address] [place] [address] Assigned OBGYN Provider 05/06/23
--- OUTSIDE RECORDS SUMMARY | 2023-08-08 15:51 | XMS_ITS | Encounter Summary ---
Author Organization [place] Address [address] [facility] [address] Care Team Providers Care Epic Cadence Analyst Name Role Phone No Ref-Primary, Physician Primary Care Provider Oleg Aparicio PA-C Unavailable [phone] Ana Oreilly MD Unavailable [phone] Encounter Details Date Type Department Care Team (Late st Contact Info) Description 08/04/2023 Orders Only [facility] [address] [facility] [facility] [address] [place] [address] Oleg Aparicio PA-C [address] [place] [address] 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 Tobacco Use Types [...] as of this encounter Progress Notes * Oleg Aparicio PA-C - 08/04/2023 4:11 PM CDT Images from the original note were not included. [facility], [address], [place] [address] Main: [phone], Telephone Note: Patient: Gabrielle Mcmahon : 1995 Date of this note written: August 04, 2023 Received a call from Dr. Raajn Lantigua [employer] [facility] Manager in [facility] about Gabrielle's status on her . In the past couple weeks, she has 2 incidents where she possibly has gone into labor and held her enoxaparin dosing as directed. On 07/15/2023, she was admitted after having some contraction at [facility] at around 32w5d. During this hospitalization, enoxaparin was held, but she had only minimal cervical changes and failed to progress further with her labor. She was discharged on 07/18/2023 and restarted back on enoxaparin at her current dose of 100 mg SubQ Q 12 hours. Then on 08/07/2023, she again experience contraction and discontinue her enoxaparin as instructed. Today, it is reported that she is about 3-4 cm dilated and is not actively in labor. Dr. Lantigua indicating that she likely will deliver her child within the next 1-2 weeks. No plans to induced labor atthis time. Dr. Lantigua inquires about the management of her anticoagulation therapy. I do not recommend transition to unfractionated heparin as this requires the patient to be hospitalized, started on IV unfractionated heparin drip, check Anti-Xa level to find the therapeutic dose ofunfractionated heparin then discharge the patient on 3 divided subcutaneous injection dose. Thus I am recommending that Gabrielle is to restart enoxaparin and again if she should experience contraction, then stop enoxaparin. Again she might not be able to get epidural anesthesia if her last enoxaparin injection was given within 24 hours of her epidural anesthesia placement. Dr. Lantigua also inquire about using protamine to reverse the affect of enoxaparin. I am recommending against this as generally holding enoxaparin should be suffice for labor and delivery. It is not recommended to use protamine for reversal of enoxaparin unless she has a life-threatening bleeding event. Oleg Aparicio PA-C, MPAS Physician [facility]. documented in this encounter Plan of Treatment Not on file documented as of this encounter Visit Diagnoses Not on filedocumented in this encounter Care Teams Epic Cadence Analyst Relationship Specialty Start Date End Date No Ref-Primary, Physician PCP - General 03/31/23 Oleg Aparicio PA-C [facility] [address] [place], [place] [address] Assigned Cancer Care Provider 05/06/23 Ana Oreilly MD [address] [address] [place] [address] Assigned OBGYN Provider 05/06/23 documented as of this encounter
--- OUTSIDE RECORDS SUMMARY | 2023-08-08 15:51 | XMS_ITS | Encounter Summary ---
Author Organization [place] Address [address] [facility] [place] [address] Care Team Providers Care Delivery Of Shopping News Name Role Phone No Ref-Primary, Physician Primary Care Provider Oleg Aparicio PA-C Unavailable [phone] Ana Oreilly MD Unavailable [phone] Reason for Visit * Reason Onset Date Comments Call To Schedule Appointment 07/28/2023 Mariusz duque with Pt- per ptOleg advised to F/U one month after child is born. Will call back to schedule. Encounter Details Date Type Department Care Team (Late st Contact Info) Description 07/28/2023 Telephone [facility] [address] [place] [address] Resource, Ur Hemo Call To [...] on filedocumented in this encounter Care Teams Delivery Of Shopping News Relationship Specialty Start Date End Date No Ref-Primary, Physician PCP - General 03/31/23 Oleg Aparicio, PA-C [address] [place] [id number] Assigned Cancer Care Provider 05/06/23 Ana Oreilly MD [address] [place] [id number] Assigned OBGYN Provider 05/06/23 documented as of this encounter
--- OUTSIDE RECORDS SUMMARY | 2023-08-08 15:52 | XMS_ITS | Encounter Summary ---
Author Organization [place] Address [address] [place] [address] Care Team Providers Care Swaging Machine Adjuster Name Role Phone No Ref-Primary, Physician Primary Care Provider Oleg Aparicio PA-C Unavailable [phone] Ana Oreilly MD Unavailable [phone] Encounter Details Date Type Department Care Team (Late st Contact Info) Description 06/22/2023 2:00 PM CDT Lab [facility] Laboratory [address] [facility] [address] [place] [address] Pulmonary embolism affecting in second [...] [facility] Core Lab [address] [facility], [address] [place] [phone] documented in this encounter Visit Diagnoses Diagnosis Pulmonary embolism affecting in second trimester documented in this encounter Care Teams Swaging Machine Adjuster Relationship Specialty Start Date End Date No Ref-Primary, Physician PCP - General 03/31/23 Oleg Aparicio PA-C [address] [facility] [address] [place], [place] [address] Assigned Cancer Care Provider 05/06/23 Ana Oreilly MD [address] [place] [address] Assigned OBGYN Provider 05/06/23 documented as of this encounter
--- OUTSIDE RECORDS SUMMARY | 2023-08-08 15:52 | XMS_ITS | Encounter Summary ---
Author Organization [place] Address [address] [place] [address] Care Team Providers Care Shipping Support Name Role Phone No Ref-Primary, Physician Primary Care Provider Oleg Aparicio PA-C Unavailable [phone] Ana Oreilly MD Unavailable [phone] Reason for Referral * Diagnostic Imaging Ultrasound (Routine) - Pending Review Specialty Diagnoses / Procedures Referred By Contac t Referred To Contact Radiology. Diagnoses related condition, antepartum Procedures [facility] US Comprehensive Single F/U Ori Adame MD [address] [facility] [employer] [address] [address] Referral ID Status Reason Start Date Expiration Date V isits Requested Visits Authorized [id number] Pending Review 05/10/2023 05/09/2024 1 1 Reason for Visit * Diagnostic Imaging Ultrasound (Routine) - Pending Review Specialty Diagnoses / Procedures Referred By Contac t Referred To Contact Radiology. Diagnoses related condition, antepartum Procedures [facility] US Comprehensive Single F/U Ori Adame MD [address] [employer] [address] [address] Referral ID Status Reason Start Date Expiration Date V isits Requested Visits Authorized [id number] Pending Review 05/10/2023 05/09/2024 1 1 Encounter Details Date Type Department Care Team (Latest Contact Info) Description 05/31/2023 10:45 AM CDT - 05/31/2023 11:59 PM CDT Hospital Encounter [facility] [place] [address] [facility] [address] [place] [address] Ori Adame MD [address] [place] [address] Encounter for ultrasound to assess [...] Procedure Name Priority Date/Time Associated Diagnosis Comments [facility] US COMPREHENSIVE SINGLE F/U Routine 05/31/2023 11:40 AM CDT Encounter for ultrasound to assess growth documented in this encounter Results * [facility] US Comprehensive Single F/U (05/31/2023 11:40 [...] ? Study Date: ??05/31/2023 10:49am Pat. NO: ??[id number] ?Referring ??MD: TRISTA MELLO Site: ??[place] ? County Judge: Chanda Lazo RDMS : ??1995 ?Age: ?? [...] lb 13 ? oz EFW by ?Hadlock ([id number]-FL) Head / Face / Neck Biometry: Gaming Commissioner ? 5.7 ? mm CM ?7.7 ? mm ANATOMY ----- The following structures appear normal: Head / Neck ? Cranium. Head size. Head shape. Lateral ventricles. Midline falx. Cavum septi pellucidi. Cerebellum. Cisterna magna. Thalami. Heart / Thorax ?4-chamber view. RVOT view. LVOT view. 6-zqzfth-xyclalo view. ? Diaphragm. Abdomen ? Stomach. Kidneys. [...] [place] Study Date: 05/31/2023 10:49am Pat. NO: [id number] Referring MD: TRISTA MELLO Site: [facility] County Judge: Chanda Lazo RDMS : 1995 Age: 28 [...] 1 lb 13 oz EFW by Hadlock ([id number]-FL) Head / Face / Neck Biometry: Gaming Commissioner 5.7 mm CM 7.7 mm ANATOMY ----- The following structures appear normal: Head / Neck Cranium. Head size. Head shape.Lateral ventricles. Midline falx. Cavum septi pellucidi. Cerebellum.Cisterna magna. Thalami. Heart / Thorax 4-chamber view. RVOT view. LVOT view.5-szpufe-dggrgfr view. Diaphragm. Abdomen Stomach. Kidneys. Bladder. Spine [...] growth documented in this encounter Care Teams Shipping Support Relationship Specialty Start Date End Date No Ref-Primary, Physician PCP - General 03/31/23 Oleg Aparicio, RUPAL [address] [address] Assigned Cancer Care Provider 05/06/23 Ana Oreilly MD [address] [place] [address] Assigned OBGYN Provider 05/06/23 documented as of this encounter
--- OUTSIDE RECORDS SUMMARY | 2023-08-08 15:52 | XMS_ITS | Encounter Summary ---
Author Organization [place] Address [address] [facility] [place] [address] Care Team Providers Care Senior Administrator Support Name Role Phone No Ref-Primary, Physician Primary Care Provider Oleg Aparicio PA-C Unavailable [phone] Ana Oreilly MD Unavailable [phone] Reason for Visit * Reason Comments Deep Vein Thrombosis Encounter Details Date Type Department Care Team (Late st Contact Info) Description 07/04/2023 2:30 PM CDT Office Visit [facility] [address] [place] [address] Oleg Aparicio PA-C [address] [place] [address] Pulmonary embolism affecting in second [...] [facility] [address] [place] [address] Main: [phone], Patient seen at: [facility] at [address] [place] [address] Outpatient Visit Note: Patient: Gabrielle Mcmahon : 1995 DEBORAH: July 04, 2023 Location of this pattern chart writer at the time of this clinic visit was conducted: [facility]. Location of the patient at the time of this clinic visit was conducted: [facility]. Reason [...] up. She was last seen by this pattern chart writer back on 04/28/2023. Thrombosis History Summary: [...] both lower extremities. 03/08/2023, she presented to [facility] emergency department with chest pain. CTA chest [...] emergency department physician did call [facility]iology and consult them about [...] History: 04/28/2023, she established care with this pattern chart writer and I determined that her pulmonary [...] and PmHx: All are reviewed by this pattern chart writer today via electronic medical records Social [...] family history (her mother) of venous thromboembolism. lOeg Aparicio PA-C, MPAS Physician Deputy Sheriff/Investigator [facility] [...] incidental documented in this encounter Care Teams Senior Administrator Support Relationship Specialty Start Date End Date No Ref-Primary, Physician PCP - General 03/31/23 Oleg Aparicio PA-C [address] [place], [place] [address] Assigned Cancer Care Provider 05/06/23 Ana Oreilly MD [address] [place], [place] [address] Assigned OBGYN Provider 05/06/23 documented as of this encounter
--- OUTSIDE RECORDS SUMMARY | 2023-08-08 15:52 | XMS_ITS | Encounter Summary ---
Author Organization [place] Address [address] [place] [address]. [place] [address] Care Team Providers Care Forest Products Gatherer Name Role Phone No Ref-Primary, Physician Primary Care Provider Oleg Aparicio PA-C Unavailable [phone] Ana Oreilly MD Unavailable [phone] Encounter Details Date Type Department Care Team (Late st Contact Info) Description 06/22/2023 [facility] Medical Advice [facility] [address] [place] [address] Oleg Aparicio PA-C [address] [place] [address] 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 Tobacco Use Types [...] Lovenox at 8:56 AM. 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 Patient verbalized understanding and will go to lab. Sandie White RN, BSN, PCCN Nurse Clinician [facility] [address] [place] [address] [address], [place] [address] Office, direct: [phone] Main office number: [phone] Pronouns: She, her, hers documented in this encounter Plan of Treatment Not on file documented as of this encounter Visit Diagnoses Not on filedocumented in this encounter Care Teams Forest Products Gatherer Relationship Specialty Start Date End Date No Ref-Primary, Physician PCP - General 03/31/23 Oleg Aparicio, JULIAC [address] [place] [address] Assigned Cancer Care Provider 05/06/23 Ana Oreilly MD [address] [address] Assigned OBGYN Provider 05/06/23 documented as of this encounter
--- OUTSIDE RECORDS SUMMARY | 2023-08-08 15:52 | XMS_ITS | Clinical Summary ---
Author Organization [facility] Address [address] [place] [address] Care Team Providers Care Oncology Rep Name Role Phone Elsewhere, Pcp Primary Care Provider Unavailabl e Source Comments Patient records contain information from all sites at [facility]. For routine questions regarding patient records, call [phone] during business hours, M-F 8:00 AM - 5:00 PM Central Time. Record requests for emergency care only can be directed to [phone] at any time.[facility] Allergies No known active allergies Medications Medication Sig Dispensed Refills Start Date End Date Status dphihqr-Pd-vzzs-FA (VINATE ONE) 60 mg iron-1 mg per [...] How often do you attend chur or judaism services? More than 4 times per year 02/21/2022 Do you belong to any clubs o r organizations such as religious groups, unions, fraternal or athletic groups, or [...] and heating? Not hard at all 02/21/2022 [facility] [place] of Occupat ional Health - Occupational Stress [...] place to sleep or slept in a fdc (including now)? No 02/21/2022 Nutrition Answer Date [...] Sex Assigned at Female 02/21/2022 11:00 AM GRE TUTOR Gender Identity Female 02/21/2022 11:00 AM GRE TUTOR Sexual Orientation Straight 02/21/2022 11 :00 AM GRE TUTOR Last Filed Vital Signs Vital Sign Reading Time Taken Comments Blood Pressure - - Pulse - - Temperature 36.6 ??C (97.9 ??F) 02/24/2022 12:[address] Respiratory Rate - - Oxygen Saturation - - Inhaled Oxygen Concentration - - Weight 72.4 kg (159 lb 9.8 oz) 02/24/2022 12:38 PM GRE TUTOR Height 169.7 cm (5' 6.81) 02/24/2022 12:[address] Body Mass Index 25.14 02/24/2022 12:38 PM GRE TUTOR Plan of Treatment Health Maintenance Due Date [...] age to complete this topic Care Teams Oncology Rep Relationship Specialty Start Date End Date Elsewhere, Pcp PCP - General Internal Medicine 02/24/22
--- OUTSIDE RECORDS SUMMARY | 2023-08-08 15:52 | XMS_ITS | Encounter Summary ---
Author Organization [place] Address [address] [facility] [place] [address] Care Team Providers Care Operating Cost Clerk Name Role Phone No Ref-Primary, Physician Primary Care Provider Oleg Aparicio PA-C Unavailable [phone] Ana Oreilly MD Unavailable [phone] Reason for Referral * Diagnostic Imaging Ultrasound (Routine) - Pending Review Specialty Diagnoses / Procedures Referred By Contsandy t Referred To Contact Radiology. Diagnoses related condition, antepartum Procedures [facility] US Comprehensive Single F/U Ori Adame MD [address] [place] [address] Referral ID Status Reason Start Date Expiration Date V isits Requested Visits Authorized [id number] Pending Review 05/10/2023 05/09/2024 1 1 Reason for Visit * Reason Comments Ultrasound RL2/TV- Subopt anato my, hx PTD Encounter Details Date Type Department Care Team (Late st Contact Info) Description 05/10/2023 10:00 AM CDT Office Visit [facility] [place] [address] [place] [address] Ori Adame MD [address] [place] [address] Encounter for follow-up ultrasound of [...] for details of today's US at the [facility]. Ori Adame MD Maternal- Medicine documented in this encounter Nursing Notes * Alma Soriano RN - 05/10/2023 10:00 AM CDT Patient reports positive movement, denies pain, denies contractions/pre- term labor, leaking of fluid, or bleeding. Patient denies headache, visual changes, nausea/vomiting, epigastric pain related to preeclampsia. Education provided to patient on RL2/TV. SBAR given to [facility] MD, see their note in Epic. Alma Soriano RN documented in this encounter Plan of Treatment Not on file documented as of this encounter Results * [facility] US Comprehensive Single F/U (05/31/2023 11:40 [...] ? Study Date: ??05/31/2023 10:49am Pat. NO: ??[id number] ?Referring ??MD: TRISTA MELLO Site: ??[facility] ? Local [employer] Intermodal Truck Driver: Chanda Lazo RDMS : ??1995 ?Age: ?? 28 ----- INDICATION ----- Reevaluate growth. METHOD ----- Transabdominal ultrasound examination. View: Sufficient ----- Banrett . Number of fetuses: 1 DATING ----- [...] lb 13 ? oz EFW by ?Hadlock ([id number]) Head / Face / Neck Biometry: Steward/Stewardess Night ? 5.7 ? mm CM ?7.7 ? mm ANATOMY ----- The following structures appear normal: Head / Neck ? Cranium. Head size. Head shape. Lateral ventricles. Midline falx. Cavum septi pellucidi. Cerebellum. Cisterna magna. Thalami. Heart / Thorax ?4-chamber view. RVOT view. LVOT view. 6-enfhjt-gfzzlwy view. ? Diaphragm. Abdomen ? Stomach. Kidneys. [...] [place] Study Date: 05/31/2023 10:49am Pat. NO: [id number] Referring MD: TRISTA MELLO Site: [facility] [employer] Truck Driver: Chanda Lazo RDMS : 1995 Age: 28 [...] 1 lb 13 oz EFW by Hadlock ([id number]) Head / Face / Neck Biometry: Steward/Stewardess Night 5.7 mm CM 7.7 mm ANATOMY ----- The following structures appear normal: Head / Neck Cranium. Head size. Head shape.Lateral ventricles. Midline falx. Cavum septi pellucidi. Cerebellum.Cisterna magna. Thalami. Heart / Thorax 4-chamber view. RVOT view. LVOT view.5-fgmwfq-zluhmkq view. Diaphragm. Abdomen Stomach. Kidneys. Bladder. Spine [...] volume appeared normal. Ori Adame MD IMG [facility] US ORDERABL ES documented in this encounter Visit Diagnoses Diagnosis Encounter for follow-up ultrasound of anatomy- Primary History of delivery, currently with history of pre-term labor Encounter for ultrasound to assess growth Encounter for ultrasound to assess growth documented in this encounter Care Teams Operating Cost Clerk Relationship Specialty Start Date End Date No Ref-Primary, Physician PCP - General 03/31/23 Oleg Aparicio PA-C [address] [place] [address] Assigned Cancer Care Provider 05/06/23 Ana Oreilly MD [address] [facility] [address] [place] [address] Assigned OBGYN Provider 05/06/23 documented as of this encounter
--- OUTSIDE RECORDS SUMMARY | 2023-08-08 15:52 | XMS_ITS | Encounter Summary ---
Author Organization [place] Address [address] [facility] [place] [address] Care Team Providers Care Network Control Technician Name Role Phone No Ref-Primary, Physician Primary Care Provider Oleg Aparicio PA-C Unavailable [phone] Ana Oreilly MD Unavailable [phone] Reason for Referral * Diagnostic Imaging Ultrasound (Routine) - Pending Review Specialty Diagnoses / Procedures Referred By Contsandy t Referred To Contact Radiology. Diagnoses Encounter for ultrasound to check growth Procedures [facility] US Comprehensive Single F/U Ori Adame MD [address] [place] [address] Referral ID Status Reason Start Date Expiration Date V isits Requested Visits Authorized [id number] Pending Review 05/31/2023 05/30/2024 1 1 Reason for Visit * Reason Comments Ultrasound RL2-reassess g rowth, EFW 15% Encounter Details Date Type Department Care Team (Late st Contact Info) Description 05/31/2023 11:30 AM CDT Office Visit [facility] [place] [address] [place] [address] Ori Adame MD [address] [place] [address] Encounter for ultrasound to check [...] OB givenhistory of PE. SBAR given to [facility] (Dr. Adame), see their note in Epic. documented in this encounter Plan of Treatment Not on file documented as of this encounter Results * [facility] US Comprehensive Single F/U (06/21/2023 [...] ? Study Date: ??06/21/2023 9:50am Pat. NO: ??[id number] ?Referring ??: TRISTA MELLO Site: ??[facility] ? Bicycle Courier: Chanda Lazo RDMS : ??1995 ?Age: ?? [...] 2 lb 12 ?oz EFW by ?Hadlock ([id number]-FL) Head / Face / Neck Biometry: Aircraft Engine Dismantler ? 4.9 ? mm CM ?5.5 ? mm ANATOMY ----- The following structures appear normal: Head / Neck ? Cranium. Head size. Head shape. Lateral ventricles. Midline falx. Cerebellum. Cisterna magna. Thalami. Face ? Lips. Profile. Nose. Heart / Thorax ?4-chamber view. RVOT view. LVOT view. 1-bezull-vsseesa view. ? Diaphragm. Abdomen ? Stomach. Kidneys. [...] [place] Study Date: 06/21/2023 9:50am Pat. NO: [id number] Referring MD: TRISTA MELLO Site: [facility] Bicycle Courier: Chanda Lazo RDMS : 1995 Age: 28 [...] 2 lb 12 oz EFW by Hadlock (VPT-WN-TC-FL) Head / Face / Neck Biometry: Aircraft Engine Dismantler 4.9 mm CM 5.5 mm ANATOMY ----- The following structures appear normal: Head / Neck Cranium. Head size. Head shape.Lateral ventricles. Midline falx. Cerebellum. Cisterna magna. Thalami. Face Lips. Profile. Nose. Heart / Thorax 4-chamber view. RVOT view. LVOT view.2-qpyrun-hkgjhyu view. Diaphragm. Abdomen Stomach. Kidneys. Bladder. Spine [...] fluid volume appeared normal. Ori Adame MD [facility] US ORDERABL ES documented in this encounter Visit Diagnoses Diagnosis Encounter for ultrasound to check growth- Primary Encounter for ultrasound to check growth documented in this encounter Care Teams Network Control Technician Relationship Specialty Start Date End Date No Ref-Primary, Physician PCP - General 03/31/23 Oleg Aparicio PA-C [address] [place] [address] [address] [place] [address] Assigned Cancer Care Provider 05/06/23 Ana Oreilly MD [address] [address] [place], [place] [address] Assigned OBGYN Provider 05/06/23 documented as of this encounter
--- OUTSIDE RECORDS SUMMARY | 2023-08-08 15:52 | XMS_ITS | Encounter Summary ---
Author Organization [place] Address [address] [facility] [place] [address] Care Team Providers Care Management Recruiter Name Role Phone No Ref-Primary, Physician Primary Care Provider Oleg Aparicio PA-C Unavailable [phone] Ana Oreilly MD Unavailable [phone] Reason for Visit * Reason Comments Ultrasound RL2-EFW14% Encounter Details Date Type Department Care Team (Late st Contact Info) Description 06/21/2023 10:00 AM CDT Office Visit [facility] [place] [address] [place] [address] Ori Adame MD [address] [place] [address] Encounter for ultrasound to check [...] for details of today's US at the [place]. Ori Adame MD Maternal- Medicine documented in this encounter Nursing Notes * Mara Cheung RN - 06/21/2023 10:00 AM CDT Patient reports good movement, reports [place] Thomas contractions, denies leaking of fluid, or bleeding. SBAR given to [facility] MD, see their note in Epic. documented in this encounter Plan of Treatment Not on file documented as of this encounter Visit Diagnoses Diagnosis Encounter for ultrasound to check growth- Primary documented in this encounter Care Teams Management Recruiter Relationship Specialty Start Date End Date No Ref-Primary, Physician PCP - General 03/31/23 Oleg Aparicio PA-C [address] [place] [address] Assigned Cancer Care Provider 05/06/23 Ana Oreilly MD [address] [place] [address] Assigned OBGYN Provider 05/06/23 documented as of this encounter
--- OUTSIDE RECORDS SUMMARY | 2023-08-08 15:52 | XMS_ITS | Encounter Summary ---
Author Organization [place] Address [address] [place] [address]. [place] [address] Care Team Providers Care Box Brander Name Role Phone No Ref-Primary, Physician Primary Care Provider Oleg Aparicio PA-C Unavailable [phone] Ana Oreilly MD Unavailable [phone] Encounter Details Date Type Department Care Team (Late st Contact Info) Description 04/28/2023 [facility] Medical Advice [facility] [address] [place] [address] Carmen Pollack RN 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 [...] on filedocumented in this encounter Care Teams Box Brander Relationship Specialty Start Date End Date No Ref-Primary, Physician PCP - General 03/31/23 Oleg Aparicio PA-C [address] [place] [address] Assigned Cancer Care Provider 05/06/23 Ana Oreilly MD [address] [place] [address] Assigned OBGYN Provider 05/06/23 documented as of this encounter
--- OUTSIDE RECORDS SUMMARY | 2023-08-08 15:52 | XMS_ITS | Encounter Summary ---
Author Organization [place] Address [address] [facility] [place] [address] Care Team Providers Care Marketing Development Specialist Name Role Phone No Ref-Primary, Physician Primary Care Provider Oleg Aparicio PA-C Unavailable [phone] Ana Oreilly MD Unavailable [phone] Encounter Details Date Type Department Care [...] on filedocumented in this encounter Care Teams Marketing Development Specialist Relationship Specialty Start Date End Date No Ref-Primary, Physician PCP - General 03/31/23 Oleg Aparicio PA-C [address] [place] [address] [address] [place] [address] Assigned Cancer Care Provider 05/06/23 Ana Oreilly MD [address] [facility] [address] [place] [address] Assigned OBGYN Provider 05/06/23 documented as of this encounter
--- OUTSIDE RECORDS SUMMARY | 2023-08-08 15:52 | XMS_ITS | Encounter Summary ---
Author Organization [place] Address [address] [facility] [place] [address] Care Team Providers Care Hydroelectric Machinery Mechanic Name Role Phone No Ref-Primary, Physician Primary Care Provider Oleg Aparicio PA-C Unavailable [phone] Ana Oreilly MD Unavailable [phone] Reason for Visit * Reason Onset Date Comments CONSENT 07/15/2023 Called pt to rec eive verbal consent to fax to another health office on her care team. LVM to CB. Encounter Details Date Type Department Care Team (Late st Contact Info) Description 07/15/2023 Telephone [facility] [address] [place] [address] Oleg Aparicio PA-C [address] [place] [address] CONSENT (Called pt to receive [...] on filedocumented in this encounter Care Teams Hydroelectric Machinery Mechanic Relationship Specialty Start Date End Date No Ref-Primary, Physician PCP - General 03/31/23 Oleg Aparicio, PABrightC [address] [place], [place] [address] Assigned Cancer Care Provider 05/06/23 Ana Oreilly MD [address] [place], [place] [address] Assigned OBGYN Provider 05/06/23 documented as of this encounter
--- OUTSIDE RECORDS SUMMARY | 2023-08-08 15:52 | XMS_ITS | Encounter Summary ---
Author Organization [place] Address [address] [place] [address] Care Team Providers Care Funds Development Director Name Role Phone No Ref-Primary, Physician Primary Care Provider Oleg Aparicio PA-C Unavailable [phone] Ana Oreilly MD Unavailable [phone] Encounter Details Date Type Department Care [...] on filedocumented in this encounter Care Teams Funds Development Director Relationship Specialty Start Date End Date No Ref-Primary, Physician PCP - General 03/31/23 Oleg Aparicio PA-C [address] [place] [address] [address] [place] [address] Assigned Cancer Care Provider 05/06/23 Ana Oreilly MD [address] [facility] [address] [place] [address] Assigned OBGYN Provider 05/06/23 documented as of this encounter
--- OUTSIDE RECORDS SUMMARY | 2023-08-08 15:52 | XMS_ITS | Encounter Summary ---
Author Organization [place] Address [address] [facility] [place] [address] Care Team Providers Care Water Conservationist Name Role Phone No Ref-Primary, Physician Primary Care Provider Oleg Aparicio PA-C Unavailable [phone] Ana Oreilly MD Unavailable [phone] Encounter Details Date Type Department Care [...] on filedocumented in this encounter Care Teams Water Conservationist Relationship Specialty Start Date End Date No Ref-Primary, Physician PCP - General 03/31/23 Oleg Aparicio PA-C [address] [place] [address] [address] [place] [address] Assigned Cancer Care Provider 05/06/23 Ana Oreilly MD [address] [facility] [address] [place] [address] Assigned OBGYN Provider 05/06/23 documented as of this encounter
--- OUTSIDE RECORDS SUMMARY | 2023-08-08 15:52 | XMS_ITS | Encounter Summary ---
Author Organization [place] Address [address] [place] [address] Care Team Providers Care Pail Bailer Name Role Phone No Ref-Primary, Physician Primary Care Provider Encounter Details Date Type Department Care Team (Late st Contact Info) Description 05/03/2023 1:00 PM CDT [facility] [address] [place] [phone] Pulmonary embolism affecting in second trimester; Family [...] ES UM SPECIALTY CORE/PROT/ENDO Specialty Core/Prot/Endo [address] [facility], [address] * Beta 2 Glycoprotein 1 Antibody IgG (05/03/2023 1:03 PM CDT) Beta 2 Glycoprotein 1 Antibody IgG <0.8 <7.0 U/mL 05/04/2023 10:34 AM CDT SPECIALTY CORE/PROT/END O Comment:Negative Blood BLOOD SPECIMEN / Unknown Venipuncture / Unknown 05/03/2023 1:03 PM CDT 05/03/2023 1:03 PM CDT Oleg Aparicio PA-C LAB - BLOOD ORDERABL ES [facility] SPECIALTY CORE/PROT/ENDO UM Specialty Core/Prot/Endo [address] [facility] [address] [facility], [address] [place] [address] * Cardiolipin Makenzie IgG and IgM (05/03/2023 [...] SPECIALTY CORE/PROT/ENDO UM Specialty Core/Prot/Endo [address] [facility], [address] * (ABNORMAL) Lupus Anticoagulant Panel (05/03/2023 [...] of an antiphospholipid syndrome, recommend anticardiolipin and lfug-4-gyhykdzqlkg n (IgG and IgM) antibody tests. Recommend [...] - BLOOD ORDERABL ES Performing Organization Address City/[facility] Co de Phone Number SPECIAL COAGULATION UM Special Coagulation [address] [facility], [address] [id number] * Low Molecular Weight Heparin Anti Xa Level (05/03/2023 1:03 PM CDT) [facility] Anti Xa Low Molecular Weight 0.63 For [...] - BLOOD ORDERABL ES Performing Organization Address City/[facility]/ZIP Co de Phone Number [facility] LABORATORY [facility] [address] [facility], [address] [address] documented in this encounter Visit Diagnoses Diagnosis Pulmonary embolism affecting in second trimester Family history of blood clots Family history of other blood disorders documented in this encounter Care Teams Pail Bailer Relationship Specialty Start Date End Date No Ref-Primary, Physician PCP - General 03/31/23 documented as of this encounter
--- OUTSIDE RECORDS SUMMARY | 2023-08-08 15:52 | XMS_ITS | Encounter Summary ---
Author Organization [place] Address [address] [facility] [place] [address] Care Team Providers Care Early Childhood Educator Aide Name Role Phone No Ref-Primary, Physician Primary Care Provider Oleg Aparicio PA-C Unavailable [phone] Ana Oreilly MD Unavailable [phone] Encounter Details Date Type Department Care [...] on filedocumented in this encounter Care Teams Early Childhood Educator Aide Relationship Specialty Start Date End Date No Ref-Primary, Physician PCP - General 03/31/23 Oleg Aparicio PA-C [address] [place] [address] [address] [place] [address] Assigned Cancer Care Provider 05/06/23 Ana Oreilly MD [address] [facility] [address] [place] [address] Assigned OBGYN Provider 05/06/23 documented as of this encounter
--- OUTSIDE RECORDS SUMMARY | 2023-08-08 15:52 | XMS_ITS | Clinical Summary ---
Author Organization [employer] [facility] Address [place], [place] [address] Care Team Providers Care Special Education Case Manager Name Role Phone Marybeth Andrew MD [...] Procedure Name Priority Date/Time Associated Diagnosis Comments CELL OPERATOR THIN PREP PAP SCREEN IMAGED Routine 12/11/2020 2:40 PM CDT from Last 3 Months or Most Recently Relevant to Health Maintenance Results * CELL OPERATOR THIN PREP PAP SCREEN IMAGED (12/11/2020 2:40 PM CDT) Case Report Gynecologic Cytology Report ? Case: [id number] ? Authorizing Provider: ??Elizabeth Philip ?Collected: ? 12/11/2020 1440 ? [place], ? Ordering Location: ? [facility] ?Received: ?12/15/2020 0858 ? First Screen: ?Baccam, Minie ? Specimen: ?CELL OPERATOR ThinPrep Vial Screening, Cervical/Vaginal ? 12/26/2020 2:03 PM CDT [facility] INTERPRETATION/ RESULT NEGATIVE FOR INTRAEPITHELIAL LESION OR MALIGNANCY (NIL) (none) 12/26/2020 2:03 PM CDT [facility] IMEN ADEQUACY Satisfactory for evaluation No endocervical component seen 12/26/2020 2:03 PM CDT [facility] HPV REQUEST HPV if ASCUS 12/26/2020 2:03 PM CDT [facility] Date of LMP 11/04/2020 12/26/2020 2:03 PM CDT [facility] Menstrual Status 12/26/2020 2:03 PM CDT [facility] Additional Information 12/26/2020 2:03 PM CDT [facility] Comment: Interpreted at [facility] - [address], [place] [address] Automated Review Successful 12/26/2020 2:03 PM CDT [facility] Comment:Specimen processed s uccessfully by automated harpooner device, ThinPrep Imaging System, [employer] Note The pap test is a [...] and malignant lesions. 12/26/2020 2:03 PM CDT [facility] Other (Cervical/Vagina l) 12/11/2020 2:40 PM CDT 12/15/2020 8:58 AM CDT Elizabeth Philip MD PATHOLOGY/ CYTOLOGY [facility] [address] [place] [address], from Last 3 Months or Most Recently Relevant to Health Maintenance Care Teams Special Education Case Manager Relationship Specialty Start Date End Date Marybeth Andrew MD [address] [place] [address] PCP - General Family Practice 08/20/22
--- OUTSIDE RECORDS SUMMARY | 2023-08-08 15:52 | XMS_ITS | Referral Summary ---
Author Organization [facility] Address [address] [place] [address] Care Team Providers Care Yeast Pumper Name Role Phone Elsewhere, Pcp Primary Care Provider Unavailabl e Source Comments Patient records contain information from all sites at [facility]. For routine questions regarding patient records, call [phone] during business hours, M-F 8:00 AM - 5:00 PM Central Time. Record requests for emergency care only can be directed to [phone] at any time.[facility] Allergies No known active allergies Medications Medication Sig Dispensed Refills Start Date End Date Status [id number]-[id number]-FA (VINATE ONE) 60 mg iron-1 mg per [...] any clubs o r organizations such as congregational groups, unions, fraternal or athletic groups, or [...] and heating? Not hard at all 02/21/2022 [facility] - [...] Sex Assigned at Female 02/21/2022 11:00 AM CHILD PSYCHOLOGIST Gender Identity Female 02/21/2022 11:00 AM CHILD PSYCHOLOGIST Sexual Orientation Straight 02/21/2022 11 :00 AM CHILD PSYCHOLOGIST Last Filed Vital Signs Vital Sign Reading Time Taken Comments Blood Pressure - - Pulse - - Temperature 36.6 ??C (97.9 ??F) 02/24/2022 12:[address] Respiratory Rate - - Oxygen Saturation - - Inhaled Oxygen Concentration - - Weight 72.4 kg (159 lb 9.8 oz) 02/24/2022 12:38 PM CHILD PSYCHOLOGIST Height 169.7 cm (5' 6.81) 02/24/2022 12:[address] Body Mass Index 25.14 02/24/2022 12:38 PM CHILD PSYCHOLOGIST Plan of Treatment Not on file Care Teams Yeast Pumper Relationship Specialty Start Date End Date Elsewhere, Pcp PCP - General Internal Medicine 02/24/22
--- OUTSIDE RECORDS SUMMARY | 2023-08-08 15:52 | XMS_ITS ---
Author Organization [facility] Address [address] [place] [address] Care Team Providers Care Corporate Licensed Broker Name Role Phone Unavailable Unavailable Unavailable Surgery Details Not on file Complications Check Surgery Details section. Procedure Estimated Blood Loss Check Surgery Details section. Procedure Findings Check Surgery Details section. Procedure Specimens Taken Check Surgery Details section.
--- OUTSIDE RECORDS SUMMARY | 2023-08-08 15:52 | XMS_ITS | Encounter Summary ---
Author Organization [place] Address [address] [facility] [place] [address] Care Team Providers Care General Internist And Physician Leader Name Role Phone No Ref-Primary, Physician Primary Care Provider Oleg Aparicio PA-C Unavailable [phone] Ana Oreilly MD Unavailable [phone] Reason for Referral * Diagnostic Imaging Ultrasound (Routine) - Pending Review Specialty Diagnoses / Procedures Referred By Contac t Referred To Contact Radiology. Diagnoses Pulmonary embolism affecting in second trimester Procedures [facility] Comprehensive Single F/U Ana Oreilly MD [address] [facility] [employer] [address] [address] Referral ID Status Reason Start Date Expiration Date V isits Requested Visits Authorized [id number] Pending Review 04/12/2023 04/11/2024 1 1 Reason for Visit * Diagnostic Imaging Ultrasound (Routine) - Pending Review Specialty Diagnoses / Procedures Referred By Contac t Referred To Contact Radiology. Diagnoses Pulmonary embolism affecting in second trimester Procedures [facility] Comprehensive Single F/U Ana Oreilly MD [address] [place] [address] Referral ID Status Reason Start Date Expiration Date V isits Requested Visits Authorized [id number] Pending Review 04/12/2023 04/11/2024 1 1 Encounter Details Date Type Department Care Team (Latest Contact Info) Description 05/10/2023 9:28 AM CDT - 05/10/2023 11:59 PM CDT Hospital Encounter [facility] [place] [address] [facility] [address] [place] [address] Ori Adame MD [address] [place] [address] Pulmonary embolism affecting in second [...] Procedure Name Priority Date/Time Associated Diagnosis Comments [facility] COMPREHENSIVE SINGLE F/U Routine 05/10/2023 10:08 AM CDT Pulmonary embolism affecting in second trimester documented in this encounter Results * [facility] Comprehensive Single F/U (05/10/2023 10:08 [...] ? Study Date: ??05/10/2023 9:30am Pat. NO: ??[id number] ?Referring ??MD: TRISTA MELLO Site: ??[facility] ? Winder Contort Operator: Yamel Hill RDMS : ??1995 ?Age: [...] 1 lb 2 ?oz EFW by ?Hadlock ([id number]) Head / Face / Neck Biometry: Fire Boss ? 6.2 ? mm CM ?3.8 ? mm Nasal bone ? 7.0 ? mm ANATOMY ----- The following structures appear normal: Head / Neck ? Cranium. Head size. Head shape. Lateral ventricles. Midline falx. Cavum septi pellucidi. Cerebellum. Cisterna magna. Thalami. Face ? Lips. Profile. Nose. Maxilla. Mandible. Heart / Thorax ?4-chamber view. RVOT view. LVOT view. Situs. 8-civonv-qqixdeq view. ? Diaphragm. Abdomen ? Stomach. Kidneys. [...] [place] Study Date: 05/10/2023 9:30am Pat. NO: [id number] Referring MD: TRISTA MELLO Site: [facility] [employer]inder Contort Operator: Yamel Hill RDMS : 1995 Age: [...] 1 lb 2 oz EFW by Hadlock ([id number]) Head / Face / Neck Biometry: Fire Boss 6.2 mm CM 3.8 mm Nasal bone 7.0 mm ANATOMY ----- The following structures appear normal: Head / Neck Cranium. Head size. Head shape.Lateral ventricles. Midline falx. Cavum septi pellucidi. Cerebellum.Cisterna magna. Thalami. Face Lips. Profile. Nose. Maxilla.Mandible. Heart / Thorax 4-chamber view. RVOT view. LVOT view.Situs. 7-qoehoj-jnihfhm view. Diaphragm. Abdomen Stomach. Kidneys. Bladder. Spine [...] trimester documented in this encounter Care Teams General Internist And Physician Leader Relationship Specialty Start Date End Date No Ref-Primary, Physician PCP - General 03/31/23 Oleg Aparicio, [employer] [address] [place] [address] [address] [place] [address] Assigned Cancer Care Provider 05/06/23 Ana Oreilly MD [address] [facility] [address] [place] [address] Assigned OBGYN Provider 05/06/23 documented as of this encounter
--- OUTSIDE RECORDS SUMMARY | 2023-08-08 15:52 | XMS_ITS | Encounter Summary ---
Author Organization [place] Address [address] [place] [address] Care Team Providers Care Clam Shovel Operator Name Role Phone No Ref-Primary, Physician Primary Care Provider Oleg Aparicio PA-C Unavailable [phone] Ana Oreilly MD Unavailable [phone] Reason for Referral * Diagnostic Imaging Ultrasound (Routine) - Pending Review Specialty Diagnoses / Procedures Referred By Contac t Referred To Contact Radiology. Diagnoses Encounter for ultrasound to check growth Procedures [facility] Comprehensive Single F/U Ori Adame MD [address] [facility] [employer] [address] [address] Referral ID Status Reason Start Date Expiration Date V isits Requested Visits Authorized [id number] Pending Review 05/31/2023 05/30/2024 1 1 Reason for Visit * Diagnostic Imaging Ultrasound (Routine) - Pending Review Specialty Diagnoses / Procedures Referred By Contac t Referred To Contact Radiology. Diagnoses Encounter for ultrasound to check growth Procedures [facility] Comprehensive Single F/U Ori Adame MD [address] [employer] [address] [address] Referral ID Status Reason Start Date Expiration Date V isits Requested Visits Authorized [id number] Pending Review 05/31/2023 05/30/2024 1 1 Encounter Details Date Type Department Care Team (Latest Contact Info) Description 06/21/2023 9:30 AM CDT - 06/21/2023 11:59 PM CDT Hospital Encounter [facility] [place] [address] [facility] [address] [place] [address] Ori Adame MD [address] [place] [address] Encounter for ultrasound to check [...] Procedure Name Priority Date/Time Associated Diagnosis Comments [facility] COMPREHENSIVE SINGLE F/U Routine 06/21/2023 10:50 AM CDT Encounter for ultrasound to check growth documented in this encounter Results * [facility] Comprehensive Single [...] ? Study Date: ??06/21/2023 9:50am Pat. NO: ??[id number] ?Referring ??MD: TRISTA MELLO Site: ??[facility] ? [employer] Pile Driver Operator: Chanda Lazo RDMS : ??1995 ?Age: [...] 2 lb 12 ?oz EFW by ?Hadlock ([id number]) Head / Face / Neck Biometry: Elder Counselor ? 4.9 ? mm CM ?5.5 ? mm ANATOMY ----- The following structures appear normal: Head / Neck ? Cranium. Head size. Head shape. Lateral ventricles. Midline falx. Cerebellum. Cisterna magna. Thalami. Face ? Lips. Profile. Nose. Heart / Thorax ?4-chamber view. RVOT view. LVOT view. 0-sixorm-xqmbklh view. ? Diaphragm. Abdomen ? Stomach. Kidneys. [...] [place] Study Date: 06/21/2023 9:50am Pat. NO: [id number] Referring MD: TRISTA MELLO Site: [facility] [employer] Pile Driver Operator: Chanda MELLY Lazo : 1995 Age: 28 [...] 2 lb 12 oz EFW by Hadlock ([id number]) Head / Face / Neck Biometry: Elder Counselor 4.9 mm CM 5.5 mm ANATOMY ----- The following structures appear normal: Head / Neck Cranium. Head size. Head shape.Lateral ventricles. Midline falx. Cerebellum. Cisterna magna. Thalami. Face Lips. Profile. Nose. Heart / Thorax 4-chamber view. RVOT view. LVOT view.3-quggtd-yzqbzlz view. Diaphragm. Abdomen Stomach. Kidneys. Bladder. Spine [...] volume appeared normal. Ori Adame MD IMG [facility] US ORDERABL ES documented in this encounter Visit Diagnoses Diagnosis Encounter for ultrasound to check growth documented in this encounter Care Teams Clam Shovel Operator Relationship Specialty Start Date End Date No Ref-Primary, Physician PCP - General 03/31/23 Oleg Aparicio, RUPAL [address] [place] [address] Assigned Cancer Care Provider 05/06/23 Ana Oreilly MD [address] [place] [address] Assigned OBGYN Provider 05/06/23 documented as of this encounter
[2023-08-08 16:22] LABS: Amnisure Rom* Negative
[2023-08-08 16:22] LABS: Yeast No Yeast Seen (None Seen)
[2023-08-08 16:23] VITALS: BP 108/70; PULSE 89; RESP 16; TEMP 37
[2023-08-08 16:23] LABS: Clue Cells No Clue Cells Seen (None Seen); Trichomonas No Trichomonas Seen (None Seen)
[2023-08-08 17:13] LABS: Appearance Urine Slightly Cloudy (Clear); Bilirubin Urine Negative (Negative); Blood Urine Negative (Negative); Color Urine Yellow (Yellow); Glucose Urine Negative (Negative); Ketones Urine Negative (Negative); Leukocyte Esterase Urine 2+ (Negative); Nitrite Urine Negative (Negative); Protein Urine Negative (Negative); Specific Gravity Urine 1.015 (1.000-1.030); Urobilinogen Urine 0.2 (0.2-1.0); pH Urine 7.5 (5.0-8.5)
[2023-08-08 17:25] LABS: Amorphous Sediment Urine Moderate; Bacteria Urine Many; RBC Urine 0-2 (0-2)
[2023-08-08 17:26] LABS: Squamous Epithelial Cell Urine Many (None-Few)
[2023-08-08 18:39] LABS: Hematocrit 34.7 % (33.0-51.0); Hemoglobin* 11.2 gm/dL (12.0-16.0); Mean Corpuscular HGB Conc 32 gm/dL (32-36); Mean Corpuscular Hemoglobin 29 pg (26-34); Mean Corpuscular Volume 88 fL (80-100); Platelet Count* 187 K/uL (140-440); Red Blood Count 3.93 m/uL (4.00-5.20); White Blood Count* 9.34 K/uL (4.50-11.00)
[2023-08-08 18:42] LABS: Slide Review Reflex No
--- NOTE | 2023-08-08 19:29 | PM.OBLDTN ---
OB - Triage/Final Diagnosis Visit Information Time Seen by Provider: 18:00 Date Seen: 08/08/23 Date of evaluation: 08/08/23 Narrative: The patient is a [] year old [] para [] at [] weeks gestation by [], who presents with []. [] Evaluation Laboratory results: Laboratory Tests 08/08/23 08/08/23 08/08/23 Range/Units 18:30 16:55 16:07 WBC 9.34 (4.50-11.00) K/uL RBC 3.93 L (4.00-5.20) m/uL Hgb 11.2 L (12.0-16.0) gm/dL Hct 34.7 (33.0-51.0) % MCV 88 (80-100) fL MCH 29 (26-34) pg MCHC 32 (32-36) gm/dL Plt Count 187 (140-440) K/uL INR Pending APTT Pending Fibrinogen Pending Urine Color Yellow (Yellow) Urine Appearance Slightly Cloudy A (Clear) Urine pH 7.5 (5.0-8.5) Ur Specific [place] 1.015 (1.000-1.030) Urine Protein Negative (Negative) Urine Glucose (UA) Negative (Negative) Urine Ketones Negative (Negative) Urine Blood Negative (Negative) Urine Nitrite Negative (Negative) Urine Bilirubin Negative (Negative) Urine Urobilinogen 0.2 (0.2-1.0) Ur Leukocyte Esterase 2+ A (Negative) Urine RBC 0-2 (0-2) Urine WBC 10-25 A (0-5) Urine WBC Clumps None (None) Ur Squamous Epith Cells Many A (None-Few) Amorphous Sediment Moderate A (None) Urine Bacteria Many A (None) Membrane Rupture Vaginal Trichomonas No Trichomonas Seen (None Seen) Vaginal Yeast No Yeast Seen (None Seen) Vaginal Clue Cells No Clue Cells Seen (None Seen) 08/08/23 Range/Units 16:04 WBC (4.50-11.00) K/uL RBC (4.00-5.20) m/uL Hgb (12.0-16.0) gm/dL Hct (33.0-51.0) % MCV (80-100) fL MCH (26-34) pg MCHC (32-36) gm/dL Plt Count (140-440) K/uL INR APTT Fibrinogen Urine Color (Yellow) Urine Appearance (Clear) Urine pH (5.0-8.5) Ur Specific [place] (1.000-1.030) Urine Protein (Negative) Urine Glucose (UA) (Negative) Urine Ketones (Negative) Urine Blood (Negative) Urine Nitrite (Negative) Urine Bilirubin (Negative) Urine Urobilinogen (0.2-1.0) Ur Leukocyte Esterase (Negative) Urine RBC (0-2) Urine WBC (0-5) Urine WBC Clumps (None) Ur Squamous Epith Cells (None-Few) Amorphous Sediment (None) Urine Bacteria (None) Membrane Rupture Negative Vaginal Trichomonas (None Seen) Vaginal Yeast (None Seen) Vaginal Clue Cells (None Seen) Vital signs: Vital Signs - 24 hr 08/08/23 16:23 Temperature 98.6 F Pulse Rate 89 Respiratory Rate 16 Blood Pressure 108/70
[2023-08-08 19:53] LABS: INR 0.92 (0.91-1.10); Prothrombin Time 12.9 Seconds
[2023-08-08 19:54] LABS: Fibrinogen* 578 mg/dL (200-450); Partial Thromboplastin Time* 33 Seconds (23-33)
[2023-08-08 20:34] VITALS: BP 123/74; PULSE 82; RESP 16; O2SAT 96
--- NOTE | 2023-08-08 23:12 | P.LDBA_ITS ---
Subjective History of Present Illness Time Seen by Provider: 19:00 Date Seen: 08/08/23 Narrative: Patient is being admitted to Labor and Delivery for labor. She is a 28 year old at 36.1 weeks gestation. She presented to triage due to concern for LOF and increased pelvic pressure. Active movement. Denies vaginal bleeding or abnormal vaginal discharge. Last dose of Lovenox was at 0945 this morning. Patient reports significant increase in anxiety as she's been having labor symptoms and advance cervical dilation for a while. It has become increasingly hard for her to keep going on and off lovenox given how frequently she has to come in for labor evaluation. On presentation her cervical exam was 4/70/-1. Amnisure was negative. Wet prep negative. UA/UCx pending. After two hours, recheck was 4.5/90/0, soft, midposition. Given cervical change, I advised admission for labor. Plan to check her again in the AM or if she's feeling increased in intensity of her contractions/pelvic pressure. Our goal is to get her passed 24 hour from her last lovenox dose prior to delivery to minimize her chance of hemorrhage. Will pursue augmentation if she makes additional change in the AM and she is >24 hours from her last lovenox dose. Patient is amenable to this plan. Patient denies fever, chills, chest pain, SOB, n/v, headache, vision changes, RUQ pain, or dizziness. Specific Issues/Plans G 2 P 0101 # Bilateral PE, elevated troponin levels, dx on 03/08/23 -On Lovenox 100mg BID, Hematology consult on 07/03/23 as below -Echocardiogram completed on 03/08/23: EF 62%, no valve disease -[facility] consult and level 2 US: 04/12/23 -No specific thrombophilia identified as of yet, further testing -Recommendations from [facility]: -Anti Xa levels should be monitor within a week of dose adjustments, and every 4 weeks once steady state has been achieved. Target levels between 0.6- 1.0 units/mL. -thrombophilia testing once of anticoagulation -anesthesia consult in the 3rd trimester: completed -scheduled induction at 39 weeks in order to time anticoagulation. Discontinuation of anticoagulation for patient on therapeutic anticoagulation is recommended 24 hours prior to scheduled induction. -they would recommend that she continues therapeutic dosing throughout and 6 weeks , this needs to be discuss with Hematology. -growth ultrasounds every 4 weeks 32wks: EFW 27% 36 wks: ordered # labor -Uterine contractions and cervix 2-3cm/80% -Transferred to [facility]: 07/15/23- 07/18/23 -Completed course of steroids on 07/16/23, was on Nifedipine to complete steroids. -Minimal cervical change, discharged home. # delivery at 36 weeks 3 days. PPROM and spontaneous labor. -[facility] recommends to complete cervical length measurements every 2 weeks: Normal, D/C # Precipitous delivery, <2 hours # 5.1 simple ovarian cyst on right ovary at first OB. Check again at 20 week FAS. Ultrasounds: Level 2 US on 04/12/23, normal but some suboptimal views (face, genitals, spine). Posterior placenta not previa, three-vessel umbilical cord, normal amount of amniotic fluid, EFW: 18th percentile, abdominal circumference 21 percentile. Normal anatomy, but suboptimal. F/U on 05/10/23: Normal anatomy. Cervical length normal with no funneling, discontinue cervical length measurements. EFW: 15 percentile, abdominal circumference: 18 percentile. Follow-up growth scheduled with [facility] in 3 weeks. 05/31/23: Cephalic, posterior placenta without previa, EFW 14%, AC 17%, MVP 6.4 cm. Return to [facility] for growth scan in 3 weeks 06/20: EFW 1258g, 18%ile Dr. Markus Ruiz Hematology last consult note from 07/03/23: ? Antepartum: Continue enoxaparin at 100 mg subQ every 12 hours through the rem ainder of her . No further LMWH anti-Xa levels checks are needed. Labor and delivery: Recommend that she is to undergo scheduled induction of labor. With scheduled induction of labor, she can stop her enoxaparin 24 hours prior to her induction date and this will provide her opportunity to receive epidural anesthesia if desired. I explained that if she goes into labor early, then she might not be able to receive epidural anesthesia if her last enoxaparin injection is within 24 hours. I also explained to her that she might need general anesthesia for emergency delivery of her last not spare an injection is within 24 hours. : I recommend that she is to restart enoxaparin 12-24 hours after her delivery assuming that she has no bleeding complications. I will have her get a repeat LMWH anti-Xa level done 1 week after her delivery and adjust her medication dose as necessary. Then I will plan to have her stay on medication for at least 6 weeks . I will see her back in our clinic 1 month post to discussed proceeding with thrombophilia workup. Flu: Declines today, planning to get with her daughter Covid: Recommended. Not vaccinated, declines. RSV: n/a TDAP:06/23/23 GBS 07/15/23 at [facility] Negative Hgb 07/15/23 11.6 OB - Problem Based A/P Additional Plan (1) : Status: Acute (2) Hx of pulmonary embolus during : Status: Acute Plan: - Last lovenox dose at 0945 on 08/08/23 - Place IV x 2, obtain CBC, T/S, and coags (3) labor: Status: Acute Plan: - contractions vs labor ? SVE 470/-1 --> 4.5/90/0 on recheck ? [place] irregular contraction for weeks, worsened today ? PTL labs: UA/UCx pending, wet mount negative, AmniSure negative, GBS negative ? History of deliveries: at 36w3d in last . Precipitous labor <2 hours. ? s/p BMZ benefit ? Admit for prolonged monitoring due to concern for labor OB Exam Physical Exam Vital signs: Temp Pulse Resp BP Pulse Ox 98.6 F 82 16 123/74 96 08/08/23 16:23 08/08/23 20:34 08/08/23 20:34 08/08/23 20:34 08/08/23 20:34 Narrative: Physical exam: General: No acute distress Psych: Alert and oriented x4, full affect HEENT: Normocephalic, atraumatic Heart: Regular rate and rhythm, no murmur rub or gallop Lungs: Clear to auscultation bilaterally Abdomen: Gravid, soft, no tenderness, rebound, or guarding. Lower extremities: No edema or erythema Pelvic exam: SVE: dry perineum. 4.5/90/0, soft, mid position
[2023-08-08 23:21] VITALS: BP 113/63; PULSE 98; RESP 17; TEMP 36.6
[2023-08-09] VITALS (20 sets, daily range): BP systolic 85–125; BP diastolic 46–80; PULSE 81–100; RESP 14–16; TEMP 36.6–37.1; O2SAT 97–100; BMI 25.9
--- NOTE | 2023-08-09 08:27 | P.OBPN_ITS ---
Subjective Date Seen: 08/09/23 Narrative: Okay Objective Vital Signs: Last Vital Signs Temp 98.5 F 08/09/23 07:48 Pulse 94 08/09/23 07:46 Resp 16 08/09/23 07:48 BP 119/80 08/09/23 07:46 Pulse Ox 99 08/09/23 07:45 Contractions Monitor mode: External Contraction pattern: Irregular Contraction intensity: Moderate Assessment Assessment: induction ongoing Heart Rate Baseline: 140 Mcfp Variability: Moderate (6-25) Monitor Accelerations: Present Monitor Decelerations: Variable Plan Plan: -Labor augmentation plan: 1. Last dose of Lovenox 100mg on 08/08/23 at 9:45am. Interventions to start at 9-9:30am. -High risk for significant hemorrhage: 1.[address]. 2.Type and crossed for 2 units PRBCs. If needed will transfuse 1:1. If needed will try to utilize protamine sulfate-we do have it available in the hospital. 3.Hemorrhage cart in room for delivery. Will start with usual IV Oxytocin, rectal Cytotec. Will move quickly to [place] if needed. TXA can be utilize as there is no concern for active blood clot. Will use as last resort just in case. -Hx. of b/l PE on chronic therapeutic anticoagulation: 1. Will keep SCDs on as long as she is in bed. 2. Plan to restart therapeutic Lovenox as recommended by call or contact centre manager: Postp artum: I recommend that she is to restart enoxaparin 12-24 hours after her delivery assuming that she has no bleeding complications. I will have her get a repeat LMWH anti-Xa level done 1 week after her delivery and adjust her medication dose as necessary. Then I will plan to have her stay on medication for at least 6 weeks . I will see her back in our clinic 1 month post to discussed proceeding with thrombophilia workup. -GBS negative, no need for antibiotic prophylaxis. -Peds provider aware due to gestational age.
[2023-08-09 08:39] LABS: Basophils Absolute Auto 0.04 K/uL (0.00-0.30); Basophils Percent Auto 0.4 % (0.0-3.0); Eosinophils Absolute Auto 0.08 K/uL (0.00-0.50); Eosinophils Percent Auto 0.9 % (0.0-7.0); Hematocrit 34.9 % (33.0-51.0); Hemoglobin* 11.3 gm/dL (12.0-16.0); Immature Granulocytes Abs Auto 0.12 K/uL (0.00-0.30); Immature Granulocytes Pct Auto 1.3 %; Mean Corpuscular HGB Conc 32 gm/dL (32-36); Mean Corpuscular Hemoglobin 29 pg (26-34); Mean Corpuscular Volume 89 fL (80-100); Monocytes Percent Auto 8.4 % (0.0-11.0); Neutrophils Absolute Auto 6.35 K/uL (1.7-7.0); Platelet Count* 202 K/uL (140-440); RDW Coefficient of Variation % 13.5 % (11.5-15.5); Red Blood Count 3.94 m/uL (4.00-5.20); Slide Review Reflex No; White Blood Count* 9.07 K/uL (4.50-11.00)
[2023-08-09 08:56] LABS: Albumin* 4.1 g/dL (3.3-5.0); Chloride* 103 mmol/L (96-114)
[2023-08-09 08:57] LABS: Potassium* 4.1 mmol/L (3.6-5.1); Sodium* 135 mmol/L (135-149)
[2023-08-09 08:59] LABS: Anion Gap 7 mEq/L (7-15); Aspartate Amino Transferase* 19 U/L (12-35); Bilirubin Total* 0.9 mg/dL (0.1-1.5); Carbon Dioxide* 25 mmol/L (20-32); Creatinine* 0.5 mg/dL (0.5-1.5); Estimated Glomerular Filt Rate 133 ml/min; INR 0.89 (0.91-1.10); Prothrombin Time 12.6 Seconds
[2023-08-09 09:00] LABS: Alanine Aminotransferase* 17 U/L (4-35); Alkaline Phosphatase* 115 U/L (40-150); Blood Urea Nitrogen* 10 mg/dL (5-24); Calcium* 9.1 mg/dL (8.4-10.6); Glucose* 87 mg/dL (60-115); Partial Thromboplastin Time* 30 Seconds (23-33)
[2023-08-09 09:02] LABS: Fibrinogen* 604 mg/dL (200-450)
[2023-08-09] MEDS: LACTATED RINGERS 1000 ML 1,000 ML 124 ML IV (09:57)
[2023-08-09] MEDS: OXYTOCIN 30 unit/500 ML in NS 30 UNIT/500 ML BAG IVPB (09:58)
--- NOTE | 2023-08-09 11:38 | W.PM.OBVAGDE ---
OB Procedure Vag Delivery Mother Details Mother Details: The patient is a 28 year-old, 2, Para 1, admitted on 08/09/23 at 36 2/7 weeks gestation due to labor, advanced cervical dilation, therapeutic Lovenox. Admitted last night after at least 3rd episode of documentation of cervical change in the past 3-4 weeks. To be able to control delivery and decrease risk of bleeding patient admitted overnight, Lovenox had been held from 08/08/23 at 9:45am; and labor augmentation was the plan for today. : 2 Para: 2 Weeks Gestation: 36.2 Admission Date: 08/08/23 Additional Details Amniotic Membrane Status: AROM Amniotic Membrane Rupture Date: 08/09/23 Amniotic Membrane Rupture Time: 09:42 Amniotic Membrane Fluid Description: Clear Analgesia/Anesthesia Type: None Waterbirth: No Pitcoin: Yes Intrapartal Events: Labor Augmentation Delivery augmentation: rupture of membranes and pitocin Labor Onset: 10:00 Complete: 11:16 Pushin:16 Heart: heart tones during second stage were category 1. Delivery Details Delivery Date: 08/09/23 Delivery Time: 11:19 Route of delivery: Gender: Female Viability: Alive; Heart Rate Present Position at Delivery: OA Delivery Details: Delivered over intact perineum via spontaneous vaginal delivery. Infant was placed on maternal abdomen.? Cord was clamped and cut after a 30-60 second delay. Nose and mouth were bulb suctioned.? weight pending. 1 Minute Interval Total Score: 8 5 Minute Interval Total Score: 9 Additional Details Shoulder Dystocia: No Placenta Delivery Time: 11:23 Placental Delivery Description: Spontaneous Delivery repair: Vicryl Procedure Done: Global Blood Loss: 100 Laceration: Vaginal - 1st Degree (At introitus, noted to have a small hematoma of about 2cm. This was released and deep sutures of Vicryl 3-0 placed in a continuous interlocking fashion and hemostasis secured. No evidence of hematoma at end of repair. Will keep close monitoring.) Episiotomy Description: None Blood Loss Measurement Type: QBL Bakri Used: No Sponge/Need Count Correct: Yes Cord Vessel Description: 3 Vessels Event Summary Status: Mother and infant were stable after delivery. Will plan to restart Lovenox 100mg BID at around 11:30pm (12 hours after delivery) as recommended by hematology. Definitely dependent that there are no new bleeding concerns during that time.
[2023-08-09] MEDS: IBUPROFEN 600 MG TABLET PO (18:49)
[2023-08-09] MEDS: ACETAMINOPHEN 500 MG TABLET 1000 MG PO (21:31)
[2023-08-10 00:17] VITALS: BP 119/78; PULSE 76; RESP 18; TEMP 36.8; O2SAT 96
[2023-08-10] MEDS: IBUPROFEN 600 MG TABLET PO ×3 (00:19→19:16)
[2023-08-10] MEDS: ENOXAPARIN 40 MG/0.4 ML INJ 100 MG SUBCUT (00:24)
[2023-08-10 05:11] VITALS: BP 107/68; PULSE 77; RESP 18; TEMP 36.7; O2SAT 99
[2023-08-10 07:00] LABS: Hemoglobin* 11.1 gm/dL (12.0-16.0)
[2023-08-10 09:08] VITALS: BP 107/68; PULSE 73; RESP 16; TEMP 36.7; O2SAT 97
--- OUTSIDE RECORDS SUMMARY | 2023-08-10 09:13 | XMS_ITS | Referral Summary ---
Author Organization [place] Address [address] [facility] [place] [address] Care Team Providers Care Carrier Washer Name Role Phone No Ref-Primary, Physician Primary Care Provider Oleg Aparicio PA-C Unavailable [phone] Ana Oreilly MD Unavailable [phone] Encounters Date Type Department Care Team Description 08/04/2023 Orders Only [facility] [address] [place] [address] Oleg Aparicio PA-C 08/04/[address] [facility] [place] [address] [place], [place] [phone] Jeanette Truong MD 07/28/2023 Telephone [facility] [address] [place] [address] Resource, [facility] Call To Schedule Appointment (Talked with Pt- per Oleg reddy advised to F/U one month after child is born. Will call back to schedule.) 07/15/2023 6:03 PM CDT - 07/18/2023 10:20 AM CDT Hospital Encounter [facility] [address] [phone] Moira Roa MD Discharge Disposition: Home or Self Care 07/15/[address] [facility] [address] [place] [address] Moira Roa MD 07/15/2023 Telephone [facility] [address] [place] [phone] Oleg Aparicio PA-C CONSENT (Called pt to receive verbal consent to fax to another health office on her care team. LVM to CB.) 07/04/2023 Travel 07/04/2023 2:30 PM CDT Office Visit [facility] [address] [place] [phone] Oleg Aparicio PA-C Pulmonary embolism affecting in second trimester (Primary Dx); Family history of blood clots; 31 weeks gestation of 06/22/2023 2:00 PM CDT Lab [facility] [address] [facility] [address] [place] [phone] Pulmonary embolism affecting in second trimester 06/22/2023 MyC Medical Advice [facility] [address] [facility] [address] [place] [phone] Oleg Aparicio PA-C 06/21/2023 Travel 06/21/2023 10:00 AM CDT Office Visit [facility] [address] [place] [address] Ori Adame MD Encounter for ultrasound to check growth (Primary Dx) 06/21/2023 9:30 AM CDT - 06/21/2023 11:59 PM CDT Hospital Encounter [facility] [address] [place] [address] Ori Adame MD Encounter for ultrasound to check growth Discharge Disposition: Home or Self Care 05/31/2023 Travel 05/31/2023 11:30 AM CDT Office Visit [facility] [address] [place] [address] Ori Adame MD Encounter for ultrasound to check growth (Primary Dx) 05/31/2023 10:45 AM CDT - 05/31/2023 11:59 PM CDT Hospital Encounter [facility] [address] [facility] [address] [place] [phone] Ori Adame MD Encounter for ultrasound to assess growth Discharge Disposition: Home or Self Care 05/10/2023 Travel 05/10/2023 10:00 AM CDT Office Visit [facility] [place] [address] [facility] [address] [place] [phone] Ori Adame MD Encounter for follow-up ultrasound of anatomy (Primary Dx); History of delivery, currently ; Encounter for ultrasound to assess growth 05/10/2023 9:28 AM CDT - 05/10/2023 11:59 PM CDT Hospital Encounter [facility] [place] [address] [facility] [address] [place] [phone] Ori Adame MD Pulmonary embolism affecting in [...] * Platelet count (07/18/2023 8:14 AM CDT) [facility] Platelet Count 170 150 - 450 10e3/uL 07/18/2023 8:32 AM CDT LABORATORY Blood STRUCTURE OF RIGHT UPPER LIMB / Unknown Venipuncture / Unknown 07/18/2023 8:14 AM CDT 07/18/2023 8:27 AM CDT Moira Roa MD LAB - BLOOD ORDERABL ES Performing Organization Address [facility] Co de Phone Number [facility] [address] 1st floor, Room [address] [phone], [facility] [phone] * Rupture of Membranes by ROM Plus [...] BODY FLUIDS OR DERABLES Performing Organization Address [facility] Co de Phone Number [facility] [address] 1st floor, [address] [address], [facility] [phone] * (ABNORMAL) Wet preparation (07/17/2023 6:52 PM [...] LAB - MICRO GENERAL ORDERABLES LABORATORY [facility] [address] 1[address] floor, [address] [place] [address], [facility] [phone] * (ABNORMAL) CBC with platelets and differential (07/15/2023 9:31 PM CDT) [facility] WBC Count 10.6 4.0 - 11.0 [...] LAB - BLOOD ORDERABL ES LABORATORY [facility] [address] 1[address] floor, [address] [place] [address], [facility] [phone] * Adult Type and Screen (07/15/2023 9:31 PM CDT) ABO/RH(D) O POS 07/15/2023 7:26 PM CDT BLOOD BANK Antibody Screen Negative Negative 07/15/2023 7:26 PM CDT BLOOD BANK SPECIMEN EXPIRATION DATE [id number] 07/15/2023 7:26 PM CDT BLOOD BANK Blood STRUCTURE OF RIGHT UPPER LIMB / Unknown Venipuncture / Unknown 07/15/2023 9:31 PM CDT 07/15/2023 9:34 PM CDT Moira Roa MD LAB - BLOOD BANK MONISHA T ORDER BLOOD BANK [address] [place] [address], [facility] * (ABNORMAL) Creatinine (07/15/2023 9:31 PM CDT) Creatinine 0.47(L) 0.51 - 0.95 mg/dL 07/15/2023 9:55 PM CDT LABORATORY GFR Estimate >90 >60 mL/min/1.7 3m2 07/15/2023 9:55 PM CDT LABORATORY Blood STRUCTURE OF RIGHT UPPER LIMB / Unknown Venipuncture / Unknown 07/15/2023 9:31 PM CDT 07/15/2023 9:34 PM CDT Moira Roa MD LAB - BLOOD ORDERABL ES Performing Organization Address City/[facility]/ZIP Co de Phone Number LABORATORY [facility] [address] 1[address] floor, [address] [place] [address], [facility] [phone] * (ABNORMAL) UA with Microscopic reflex to Culture (07/15/2023 6:45 PM CDT) Color Urine Straw Colorless, Straw, Light Yellow, Yellow 07/15/2023 7:04 PM CDT LABORATORY Appearance Urine Clear Clear 07/15/19 7:04 PM CDT LABORATORY Glucose Urine Negative Negative mg/dL 07/15/2023 7:04 PM CDT LABORATORY Bilirubin Urine Negative Negative 7:04 PM CDT LABORATORY Ketones Urine 40(A) Negative mg/dL 07/15/2023 7:04 PM CDT LABORATORY Specific [place] Urine 1.009 1.003 - 1.035 07/15/2023 7:04 [...] LAB - URINE ORDERABL ES LABORATORY [facility] [address] 1st floor, [address] [place] [address], [facility] [phone] * Chlamydia trachomatis/Neisseria gonorrhoeae by PCR (07/15/2023 6:23 PM CDT) Chlamydia Trachomatis Negative Negative 07/16/2023 12:02 PM CDT [facility] Comment: Negative for C. trachomatis rRNA by medical esthetician mediated amplification. A negative result by medical esthetician mediated amplification does not preclude the presence of infection because results are dependent on proper and adequate collection, absence of inhibitors and sufficient rRNA to be detected. Neisseria gonorrhoeae Negative Negative 07/16/2023 12:02 PM CDT [facility] Comment:Negative for N. gono rrhoeae rRNA by medical esthetician mediated amplification. A negative result by medical esthetician mediated amplification does not preclude the presence of C. trachomatis infection because results are dependent on proper and adequate collection, absence of inhibitors and sufficient rRNA to be detected. Urine VOIDED URINE SPECIMEN / Unknown Non-blood Collection / Unknown 07/15/2023 6:23 PM CDT 07/15/2023 6:30 PM CDT Moira Roa MD LAB - MICRO GENERAL ORDERABLES [facility] Inf. Diseases Diag. Lab [address] [facility] [place] [address] * Group B Streptococcus (External Result) (07/15/2023) Group B Streptococcus (External) Negative Negative EXTERNAL LAB Patient Reported LAB - HIM EXTERNAL R ESULT Performing Organization Address City/[facility]/ZIP Co de Phone Number EXTERNAL LAB [...] - BLOOD ORDERABL ES Performing Organization Address City/[facility]/ZIP Co de Phone Number [facility] [address] [facility], [address] [place] [address] * [facility] US Comprehensive Single F/U (06/21/2023 10:50 [...] ? Study Date: ??06/21/2023 9:50am Pat. NO: ??[id number] ?Referring ??: TRISTA MELLO Site: ??[facility] ? Matrix Repairer: Chanda Lazo RDMS : ??1995 ?Age: ?? [...] 2 lb 12 ?oz EFW by ?Hadlock ([id number]) Head / Face / Neck Biometry: Charge Aide ? 4.9 ? mm CM ?5.5 ? mm ANATOMY ----- The following structures appear normal: Head / Neck ? Cranium. Head size. Head shape. Lateral ventricles. Midline falx. Cerebellum. Cisterna magna. Thalami. Face ? Lips. Profile. Nose. Heart / Thorax ?4-chamber view. RVOT view. LVOT view. 1-mexxue-wicrjjx view. ? Diaphragm. Abdomen ? Stomach. Kidneys. [...] [place] Study Date: 06/21/2023 9:50am Pat. NO: [id number] Referring MD: TRISTA MELLO Site: [facility] Matrix Repairer: Chanda Lazo RDMS : 1995 Age: 28 [...] 2 lb 12 oz EFW by Hadlock ([id number]) Head / Face / Neck Biometry: Charge Aide 4.9 mm CM 5.5 mm ANATOMY ----- The following structures appear normal: Head / Neck Cranium. Head size. Head shape.Lateral ventricles. Midline falx. Cerebellum. Cisterna magna. Thalami. Face Lips. Profile. Nose. Heart / Thorax 4-chamber view. RVOT view. LVOT view.6-rljgep-fusofxh view. Diaphragm. Abdomen Stomach. Kidneys. Bladder. Spine [...] fluid volume appeared normal. Ori Adame MD [facility] US ORDERABL ES * HIV-1 Antibody (External Result) (01/26/2023) HIV 1&2 Antibody (External) Negative Nonreactive EXTERNAL LAB Patient Reported LAB - HIM EXTERNAL R ESULT EXTERNAL LAB External Lab from Last 3 Months or Most Recently Relevant to Health Maintenance Advance Directives For more information, please contact: [phone] * Full Code (Latest Code Status on File) Date Activated Date Inactivated Comments 07/15/2023 7:25 PM 07/18/2023 1:55 PM All basic an d advanced life-sustaining interventions are performed as appropriate Question Answer Comments Code status determined by: Discussion with jonnie nt/ legal decision maker Care Teams Carrier Washer Relationship Specialty Start Date End Date No Ref-Primary, Physician PCP - General 03/31/23 Oleg Aparicio, PA-C [address] [place] [address] Assigned Cancer Care Provider 05/06/23 Ana Oreilly MD [address] [place] [address] Assigned OBGYN Provider 05/06/23
--- OUTSIDE RECORDS SUMMARY | 2023-08-10 09:13 | XMS_ITS | Clinical Summary ---
Author Organization [place] Address [address] [facility] [place] [address] Care Team Providers Care Senior Advisory Name Role Phone No Ref-Primary, Physician Primary Care Provider Oleg Aparicio PA-C Unavailable [phone] Ana Oreilly MD Unavailable [phone] Allergies No known active allergies Medications [...] Department Care Team Description 08/04/2023 Orders Only [facility] [address] [place] [phone] Oleg Aparicio PA-C 08/04/2023 Telephone [facility] [place] [address] [place] [address] Jeanette Truong MD 07/28/2023 Telephone [facility] [address] [place] [phone] Jerry Louie Hemo Call To Schedule Appointment (Talked with Pt- per ptOleg advised to F/U one month after child is born. Will call back to schedule.) 07/15/2023 6:03 PM CDT - 07/18/2023 10:20 AM CDT Hospital Encounter [facility] [address] [phone] Moira Roa MD Discharge Disposition: Home or Self Care 07/15/2023 Hospital Encounter [facility] [address] [phone] Moira Roa MD 07/15/2023 Telephone [facility] [address] [place] [address] [address] [place] [phone] Oleg Aparicio PA-C CONSENT (Called pt to receive verbal consent to fax to another health office on her care team. LVM to CB.) 07/04/2023 2:30 PM CDT Office Visit [facility] [address] [place] [address] [address] [place] [phone] Oleg Aparicio PA-C Pulmonary embolism affecting in second trimester (Primary Dx); Family history of blood clots; 31 weeks gestation of 07/04/2023 Travel 06/22/2023 2:00 PM CDT Lab [facility] [address] [place] [address] Pulmonary embolism affecting in second trimester 06/22/2023 MyC Medical Advice [facility] [address] [place] [address] Oleg Aparicio PA-C 06/21/2023 10:00 AM CDT Office Visit [facility] [place] [address] [facility] [address] [place] [address] Ori Adame MD Encounter for ultrasound to check growth (Primary Dx) 06/21/2023 9:30 AM CDT - 06/21/2023 11:59 PM CDT Hospital Encounter [place] [address] [facility] [address] [place] [address] Ori Adame MD Encounter for ultrasound to check growth Discharge Disposition: Home or Self Care 06/21/2023 Travel 05/31/2023 11:30 AM CDT Office Visit [place] [address] [facility] [address] [place] [address] Ori Adame MD Encounter for ultrasound to check growth (Primary Dx) 05/31/2023 10:45 AM CDT - 05/31/2023 11:59 PM CDT Hospital Encounter [place] [address] [facility] [address] [place] [address] Ori Adame MD Encounter for ultrasound to assess growth Discharge Disposition: Home or Self Care 05/31/2023 Travel 05/10/2023 10:00 AM CDT Office Visit [place] [address] [facility] [address] [place] [address] Ori Adame MD Encounter for follow-up ultrasound of anatomy (Primary Dx); History of delivery, currently ; Encounter for ultrasound to assess growth 05/10/2023 9:28 AM CDT - 05/10/2023 11:59 PM CDT Hospital Encounter [facility] [place] [address] [facility] [address] [place] [address] Ori Adame MD Pulmonary embolism [...] CDT Pulmonary embolism affecting in second trimester [facility] US COMPREHENSIVE SINGLE F/U Routine 06/21/2023 10:50 AM CDT Encounter for ultrasound to check growth [facility] US COMPREHENSIVE SINGLE F/U Routine 05/31/2023 11:40 AM CDT Encounter for ultrasound to assess growth [facility] US COMPREHENSIVE SINGLE F/U Routine 05/10/2023 10:08 [...] MD LAB - BLOOD ORDERABL ES LABORATORY [facility] [address] 1[address] floor, Room [address] [place] [address], [place] [phone] * Rupture of Membranes by ROM Plus [...] LAB - BODY FLUIDS OR DERABLES LABORATORY [facility] [address] 1[address] floor, [address] [place] [address], [place] [phone] * (ABNORMAL) Wet preparation (07/17/2023 6:52 PM [...] MD LAB - MICRO GENERAL ORDERABLES LABORATORY [facility] [address] 1[address] floor, Room [address] [place] [address], [place] [phone] * (ABNORMAL) CBC with platelets and differential [...] MD LAB - BLOOD ORDERABL ES LABORATORY [facility] [address] 1[address] floor, [address] [place] [address], [place] [phone] * Adult Type and Screen (07/15/2023 9:31 PM CDT) ABO/RH(D) O POS 07/15/2023 7:26 PM CDT BLOOD BANK Antibody Screen Negative Negative 07/15/2023 7:26 PM CDT BLOOD BANK SPECIMEN EXPIRATION DATE [id number] 07/15/2023 7:26 PM CDT BLOOD BANK Blood STRUCTURE OF RIGHT UPPER LIMB / Unknown Venipuncture / Unknown 07/15/2023 9:31 PM CDT 07/15/2023 9:34 PM CDT Moira Roa MD LAB - BLOOD BANK MONISHA T ORDER BLOOD BANK [address] [place] [address], [place] * (ABNORMAL) Creatinine (07/15/2023 9:31 PM CDT) Creatinine 0.47(L) 0.51 - 0.95 mg/dL 07/15/2023 9:55 PM CDT LABORATORY GFR Estimate >90 >60 mL/min/1.7 3m2 07/15/2023 9:55 PM CDT LABORATORY Blood STRUCTURE OF RIGHT UPPER LIMB / Unknown Venipuncture / Unknown 07/15/2023 9:31 PM CDT 07/15/2023 9:34 PM CDT Moira Roa MD LAB - BLOOD ORDERABL ES LABORATORY [facility] [address] 1st floor, [address] [place] [address], [place] [phone] * (ABNORMAL) UA with Microscopic reflex to Culture (07/15/2023 6:45 PM CDT) Color Urine Straw Colorless, Straw, Light Yellow, Yellow 07/15/2023 7:04 PM CDT LABORATORY Appearance Urine Clear Clear 07/15/19 7:04 PM CDT LABORATORY Glucose Urine Negative Negative mg/dL 07/15/2023 7:04 PM CDT LABORATORY Bilirubin Urine Negative Negative 7:04 PM CDT LABORATORY Ketones Urine 40(A) Negative mg/dL 07/15/2023 7:04 PM CDT LABORATORY Specific [place] Urine 1.009 1.003 - 1.035 07/15/2023 7:04 [...] MD LAB - URINE ORDERABL ES LABORATORY [facility] [address] 1[address] floor, [address] [place] [address], [place] [phone] * Chlamydia trachomatis/Neisseria gonorrhoeae by PCR (07/15/2023 6:23 PM CDT) Chlamydia Trachomatis Negative Negative 07/16/2023 12:02 PM CDT [facility] Comment: Negative for C. trachomatis rRNA by permanent mold supervisor mediated amplification. A negative result by permanent mold supervisor mediated amplification does not preclude the presence of infection because results are dependent on proper and adequate collection, absence of inhibitors and sufficient rRNA to be detected. Neisseria gonorrhoeae Negative Negative 07/16/2023 12:02 PM CDT [facility] Comment:Negative for N. gono rrhoeae rRNA by permanent mold supervisor mediated amplification. A negative result by permanent mold supervisor mediated amplification does not preclude the presence of C. trachomatis infection because results are dependent on proper and adequate collection, absence of inhibitors and sufficient rRNA to be detected. Urine VOIDED URINE SPECIMEN / Unknown Non-blood Collection / Unknown 07/15/2023 6:23 PM CDT 07/15/2023 6:30 PM CDT Moira Roa MD LAB - MICRO GENERAL ORDERABLES [facility] Inf. Diseases Diag. Lab [address] [facility], [address] [place] [address], [place] * Group B Streptococcus (External Result) (07/15/2023) [...] LAB - BLOOD ORDERABL ES [facility] LABORATORY [facility] Core Lab [address] [facility], [address] [place] [address], [place] * [facility] Comprehensive Single F/U (06/21/2023 10:50 [...] ? Study Date: ??06/21/2023 9:50am Pat. NO: ??[id number] ?Referring ??MD: TRISTA MELLO Site: ??[facility] ? Timber Hewer: Chanda Lazo RDMS : ??1995 ?Age: ?? [...] 2 lb 12 ?oz EFW by ?Hadlock ([id number]) Head / Face / Neck Biometry: Zookeeper ? 4.9 ? mm CM ?5.5 ? mm ANATOMY ----- The following structures appear normal: Head / Neck ? Cranium. Head size. Head shape. Lateral ventricles. Midline falx. Cerebellum. Cisterna magna. Thalami. Face ? Lips. Profile. Nose. Heart / Thorax ?4-chamber view. RVOT view. LVOT view. 5-wixpvc-lwirmgj view. ? Diaphragm. Abdomen ? Stomach. Kidneys. [...] [place] Study Date: 06/21/2023 9:50am Pat. NO: [id number] Referring MD: TRISTA MELLO Site: [facility] Timber Hewer: Chanda LazoMELLY : 1995 Age: 28 ----- [...] 2 lb 12 oz EFW by Hadlock ([id number]-FL) Head / Face / Neck Biometry: Zookeeper 4.9 mm CM 5.5 mm ANATOMY ----- The following structures appear normal: Head / Neck Cranium. Head size. Head shape.Lateral ventricles. Midline falx. Cerebellum. Cisterna magna. Thalami. Face Lips. Profile. Nose. Heart / Thorax 4-chamber view. RVOT view. LVOT view.2-txipum-fyahkoz view. Diaphragm. Abdomen Stomach. Kidneys. Bladder. Spine [...] fluid volume appeared normal. Ori Adame MD [facility] ORDERABL ES * HIV-1 Antibody (External Result) (01/26/2023) HIV 1&2 Antibody (External) Negative Nonreactive EXTERNAL LAB Patient Reported LAB - HIM EXTERNAL R ESULT EXTERNAL LAB External Lab from Last 3 Months or Most Recently Relevant to Health Maintenance Advance Directives For more information, please contact: [phone] * Full Code (Latest Code Status on File) Date Activated Date Inactivated Comments 07/15/2023 7:25 PM 07/18/2023 1:55 PM All basic an d advanced life-sustaining interventions are performed as appropriate Question Answer Comments Code status determined by: Discussion with patie nt/ legal decision maker Care Teams Senior Advisory Relationship Specialty Start Date End Date No Ref-Primary, Physician PCP - General 03/31/23 Oleg Aparicio, PA-C [facility] [place] [address] Assigned Cancer Care Provider 05/06/23 Ana Oreilly MD [address] [address] [place] [address] Assigned OBGYN Provider 05/06/23
--- OUTSIDE RECORDS SUMMARY | 2023-08-10 09:13 | XMS_ITS | Continuity of Care Document ---
Author Organization [facility] Address [address] [place] [address] Phone Care Team Providers Care Imaging Analyst Name Role Phone Moira Roa MD Unavailable [...] [address], [place], [place], [id number] , [place] tel: [phone] [facility] No Information 4 Crispin Pizarro. [address], [address], [place], [address], [place]. tel: [phone] Subsequent Hospital Care MDM Straightforward Or LOW 25 MIN [facility], [address], [place], [place], [id number] , [place] tel: [phone] [facility] IP No Information 4 Soledad Valentin. [address], [address], [place], [address], [place]. tel: [phone] Initial Hospital Inpatient Or Observation Moderate MDM 55min [facility], [address], [place], [place], [id number] , [place] tel: [phone] [facility] IP labor without delivery, third trimesterPersona l history of pre-term laborInfection of other part of genital tract in , third trimesterPersona l history of pulmonary weeks gestation of pregnancyStrepto coccus B carrier state complicating [id number] weeks gestation of 4 [facility]. [address], [place], [address], [place]. tel:[phone] Family History Family Member Type Diagnosis Age At Onset No Information Payers Payer name Insurance type Covered constitution party ID Authoriza tion(s) No Information 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 Type Description Quantity Date Captured Comments Sex Female Smoking Status No Information Chief Complaint And Reason For Visit No Information History Of Present Illness Encounter Date Complaint History Of Prese nt Illness No Information Instructions Date Instruction Additional Infor mation No Information Assessments Type Assessment Date No Information
--- OUTSIDE RECORDS SUMMARY | 2023-08-10 09:14 | XMS_ITS | Encounter Summary ---
Author Organization [place] Address [address] [facility] [place] [address] Care Team Providers Care Saturator Operator Name Role Phone No Ref-Primary, Physician Primary Care Provider Encounter Details Date Type Department Care Team (Late st Contact Info) Description 05/03/2023 1:00 PM CDT [facility] [address] [place] [phone] Pulmonary embolism affecting in second trimester; Family [...] ES UM SPECIALTY CORE/PROT/ENDO Specialty Core/Prot/Endo [address] [facility], [address] * Beta 2 Glycoprotein 1 Antibody IgG (05/03/2023 1:03 PM CDT) Beta 2 Glycoprotein 1 Antibody IgG <0.8 <7.0 U/mL 05/04/2023 10:34 AM CDT SPECIALTY CORE/PROT/END O Comment:Negative Blood BLOOD SPECIMEN / Unknown Venipuncture / Unknown 05/03/2023 1:03 PM CDT 05/03/2023 1:03 PM CDT Oleg Aparicio PA-C LAB - BLOOD ORDERABL ES UM SPECIALTY CORE/PROT/ENDO UM Specialty Core/Prot/Endo [address] [facility] [address] [facility], [address] [place] [address] * Cardiolipin Makenzie IgG and IgM (05/03/2023 [...] UM SPECIALTY CORE/PROT/ENDO UM Specialty Core/Prot/Endo [address] [facility], [address] * (ABNORMAL) Lupus Anticoagulant Panel (05/03/2023 [...] of an antiphospholipid syndrome, recommend anticardiolipin and mgdu-1-epvzchygcrc n (IgG and IgM) antibody tests. Recommend [...] - BLOOD ORDERABL ES Performing Organization Address City/[facility] Co de Phone Number SPECIAL COAGULATION UM Special Coagulation [address] [facility], [address] [address] * Low Molecular Weight Heparin Anti Xa Level (05/03/2023 1:03 PM CDT) [facility] Anti Xa Low Molecular Weight 0.63 For [...] - BLOOD ORDERABL ES Performing Organization Address City/[facility]/ZIP Co de Phone Number UU LABORATORY [facility] [place] Core Lab [address] [facility], [address] [address] documented in this encounter Visit Diagnoses Diagnosis Pulmonary embolism affecting in second trimester Family history of blood clots Family history of other blood disorders documented in this encounter Care Teams Saturator Operator Relationship Specialty Start Date End Date No Ref-Primary, Physician PCP - General 03/31/23 documented as of this encounter
--- OUTSIDE RECORDS SUMMARY | 2023-08-10 09:14 | XMS_ITS | Encounter Summary ---
Author Organization [place] Address [address] [place] [address] Care Team Providers Care Release And Technical Records Clerk Name Role Phone No Ref-Primary, Physician Primary Care Provider Oleg Aparicio PA-C Unavailable [phone] Ana Oreilly MD Unavailable [phone] Reason for Referral * Diagnostic Imaging Ultrasound (Routine) - Pending Review Specialty Diagnoses / Procedures Referred By Contac t Referred To Contact Radiology. Diagnoses related condition, antepartum Procedures [facility] US Comprehensive Single F/U Ori Adame MD [address] [facility] [employer] [address] [address] Referral ID Status Reason Start Date Expiration Date V isits Requested Visits Authorized [id number] Pending Review 05/10/2023 05/09/2024 1 1 Reason for Visit * Diagnostic Imaging Ultrasound (Routine) - Pending Review Specialty Diagnoses / Procedures Referred By Contac t Referred To Contact Radiology. Diagnoses related condition, antepartum Procedures [facility] US Comprehensive Single F/U Ori Adame MD [address] [employer] [address] [address] Referral ID Status Reason Start Date Expiration Date V isits Requested Visits Authorized [id number] Pending Review 05/10/2023 05/09/2024 1 1 Encounter Details Date Type Department Care Team (Latest Contact Info) Description 05/31/2023 10:45 AM CDT - 05/31/2023 11:59 PM CDT Hospital Encounter [facility] [place] [address] [facility] [address] [place] [address] Ori Adame MD [address] [place] [address] Encounter for ultrasound to assess [...] Procedure Name Priority Date/Time Associated Diagnosis Comments [facility] US COMPREHENSIVE SINGLE F/U Routine 05/31/2023 11:40 AM CDT Encounter for ultrasound to assess growth documented in this encounter Results * [facility] US Comprehensive Single F/U (05/31/2023 11:40 [...] ? Study Date: ??05/31/2023 10:49am Pat. NO: ??[id number] ?Referring ??MD: TRISTA MELLO Site: ??[facility] ? Data Conversion Developer: Chanda Lazo RDMS : ??1995 ?Age: [...] lb 13 ? oz EFW by ?Hadlock ([id number]-VL-[id number]-FL) Head / Face / Neck Biometry: Spreader ? 5.7 ? mm CM ?7.7 ? mm ANATOMY ----- The following structures appear normal: Head / Neck ? Cranium. Head size. Head shape. Lateral ventricles. Midline falx. Cavum septi pellucidi. Cerebellum. Cisterna magna. Thalami. Heart / Thorax ?4-chamber view. RVOT view. LVOT view. 9-ypexae-vblcnql view. ? Diaphragm. Abdomen ? Stomach. Kidneys. [...] [place] Study Date: 05/31/2023 10:49am Pat. NO: [id number] Referring MD: TRISTA MELLO Site: [facility] Data Conversion Developer: Chanda Lazo RDMS : 1995 Age: [...] 1 lb 13 oz EFW by Hadlock ([id number]) Head / Face / Neck Biometry: Spreader 5.7 mm CM 7.7 mm ANATOMY ----- The following structures appear normal: Head / Neck Cranium. Head size. Head shape.Lateral ventricles. Midline falx. Cavum septi pellucidi. Cerebellum.Cisterna magna. Thalami. Heart / Thorax 4-chamber view. RVOT view. LVOT view.6-wrrbny-wysshzu view. Diaphragm. Abdomen Stomach. Kidneys. Bladder. Spine [...] growth documented in this encounter Care Teams Release And Technical Records Clerk Relationship Specialty Start Date End Date No Ref-Primary, Physician PCP - General 03/31/23 Oleg Aparicio, RUPAL [address] [address] Assigned Cancer Care Provider 05/06/23 Ana Oreilly MD [address] [place] [address] Assigned OBGYN Provider 05/06/23 documented as of this encounter
--- OUTSIDE RECORDS SUMMARY | 2023-08-10 09:14 | XMS_ITS | Encounter Summary ---
Author Organization [place] Address [address] [facility] [place] [address] Care Team Providers Care Interior Design Principal Name Role Phone No Ref-Primary, Physician Primary Care Provider Oleg Aparicio PA-C Unavailable [phone] Ana Oreilly MD Unavailable [phone] Reason for Referral * Diagnostic Imaging Ultrasound (Routine) - Pending Review Specialty Diagnoses / Procedures Referred By Contsandy t Referred To Contact Radiology. Diagnoses related condition, antepartum Procedures [facility] US Comprehensive Single F/U Ori Adame MD [address] [place] [address] Referral ID Status Reason Start Date Expiration Date V isits Requested Visits Authorized [id number] Pending Review 05/10/2023 05/09/2024 1 1 Reason for Visit * Reason Comments Ultrasound RL2/TV- Subopt anato my, hx PTD Encounter Details Date Type Department Care Team (Late st Contact Info) Description 05/10/2023 10:00 AM CDT Office Visit [facility] [place] [address] [facility] [address] [place] [address] Ori Adame MD [address] [place] [address] Encounter for follow-up ultrasound of [...] for details of today's US at [facility]. Ori Adame MD Maternal- Medicine documented in this encounter Nursing Notes * Alma Soriano RN - 05/10/2023 10:00 AM CDT Patient reports positive movement, denies pain, denies contractions/pre- term labor, leaking of fluid, or bleeding. Patient denies headache, visual changes, nausea/vomiting, epigastric pain related to preeclampsia. Education provided to patient on RL2/TV. SBAR given to [facility] MD, see their note in Epic. Alma Soriano RN documented in this encounter Plan of Treatment Not on file documented as of this encounter Results * [facility] US Comprehensive Single F/U (05/31/2023 [...] ? Study Date: ??05/31/2023 10:49am Pat. NO: ??[id number] ?Referring ??MD: TRISTA MELLO Site: ??[facility] ? Visual Lead: Chanda Lazo RDMS : ??1995 ?Age: ?? [...] lb 13 ? oz EFW by ?Hadlock ([id number]-FL) Head / Face / Neck Biometry: Timber Repairer ? 5.7 ? mm CM ?7.7 ? mm ANATOMY ----- The following structures appear normal: Head / Neck ? Cranium. Head size. Head shape. Lateral ventricles. Midline falx. Cavum septi pellucidi. Cerebellum. Cisterna magna. Thalami. Heart / Thorax ?4-chamber view. RVOT view. LVOT view. 7-ukzueu-bmlbuwo view. ? Diaphragm. Abdomen ? Stomach. Kidneys. [...] [place] Study Date: 05/31/2023 10:49am Pat. NO: [id number] Referring MD: TRISTA MELLO Site: [facility] Visual Lead: Chanda Lazo RDMS : 1995 Age: 28 [...] 1 lb 13 oz EFW by Hadlock ([id number]-FL) Head / Face / Neck Biometry: Timber Repairer 5.7 mm CM 7.7 mm ANATOMY ----- The following structures appear normal: Head / Neck Cranium. Head size. Head shape.Lateral ventricles. Midline falx. Cavum septi pellucidi. Cerebellum.Cisterna magna. Thalami. Heart / Thorax 4-chamber view. RVOT view. LVOT view.8-mzueaz-twgnnbb view. Diaphragm. Abdomen Stomach. Kidneys. Bladder. Spine [...] volume appeared normal. Ori Adame MD IMG [facility] US ORDERABL ES documented in this encounter Visit Diagnoses Diagnosis Encounter for follow-up ultrasound of anatomy- Primary History of delivery, currently with history of pre-term labor Encounter for ultrasound to assess growth Encounter for ultrasound to assess growth documented in this encounter Care Teams Interior Design Principal Relationship Specialty Start Date End Date No Ref-Primary, Physician PCP - General 03/31/23 Oleg Aparicio PA-C [address] [place] [address] Assigned Cancer Care Provider 05/06/23 Ana Oreilly MD [address] [facility] [address] [place] [address] Assigned OBGYN Provider 05/06/23 documented as of this encounter
--- OUTSIDE RECORDS SUMMARY | 2023-08-10 09:14 | XMS_ITS | Encounter Summary ---
Author Organization [place] Address [address] [place] [address] Care Team Providers Care Account Support Specialist Name Role Phone No Ref-Primary, Physician Primary Care Provider Oleg Aparicio PA-C Unavailable [phone] Ana Oreilly MD Unavailable [phone] Encounter Details Date Type Department Care [...] on filedocumented in this encounter Care Teams Account Support Specialist Relationship Specialty Start Date End Date No Ref-Primary, Physician PCP - General 03/31/23 Oleg Aparicio PA-C [address] [place] [address] [address] [place] [address] Assigned Cancer Care Provider 05/06/23 Ana Oreilly MD [address] [facility] [address] [place] [address] Assigned OBGYN Provider 05/06/23 documented as of this encounter
--- OUTSIDE RECORDS SUMMARY | 2023-08-10 09:14 | XMS_ITS | Encounter Summary ---
Author Organization [place] Address [address] [facility] [place] [address] Care Team Providers Care Assistant Product Manager Name Role Phone No Ref-Primary, Physician Primary Care Provider Oleg Aparicio PA-C Unavailable [phone] Ana Oreilly MD Unavailable [phone] Reason for Visit * Reason Comments Labor * Auth/Cert (Routine) Specialty Diagnoses / Procedures Referred By Contac t Referred To Contact boilers inspector Diagnoses labor Sh Labor & Delivery [address] [id number] Referral ID Status Reason Start Date Expiration Date Visits Re quested Visits Authorized [id number] 1 1 Encounter Details Date Type Department Care Team (Latest Contact Info) Description 07/15/2023 6:03 PM CDT - 07/18/2023 10:20 AM CDT Hospital Encounter [facility] [address] [phone] Moira Roa MD [address] [address] Discharge Disposition: Home or [...] Roa MD - 07/18/2023 10:20 AM CDT [facility] Discharge Summary Gabrielle Mcmahon Age: [age] year old Date of : 1995 Date of Admission: 07/15/2023 Date of Discharge:: 08/08/2023 Admitting Physician: 07/18/2023 10:20 AM Discharge Physician: Moira Roa MD Home clinic: [facility] Admission Diagnoses: at 33w1d who admitted for [...] Brief History of Illness: Pt transferred from [facility] for threatened PTL at 32w5d. She was [...] Where can you learn more? Go to [email or web address]/patiented Enter N531 in the search box to learn more about Learning About When to Call Your Doctor During (After 20 Weeks). Current as of: August 30, 2022 Content Version: 14.0 ?? [employer]. Care instructions adapted under license by your healthcare professional. If you have questions about a medical condition or this instruction, always ask your healthcare professional. [employer] disclaims any warranty or liability for your [...] Mcmahon : 1995 Admit date: 07/15/2023 Acct: [id number] Assessment/Plan: Gabrielle Mcmahon is a at 33w1d who admitted for threatened labor. Today is HD#4. Pt transferred here from an outside facility and is unassigned to [facility]. contractions - minimal cervical change during admission. - continues to have irregular and non painful cramping. - s/p Nifedipine course - s/p BMZ 07/14, 07/15 - UDip WNL. NG/CT neg - GBS negative - s/p NICU consult - Tracings reactive - Dispo: plan for discharge today with low threshold to return for any increased symptoms. 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 Hx of BL PE earlier this preg [...] cords Psych: mood appropriate FHT: tracings reactive [place]: irritable Labs/Imaging: Results for orders placed or [...] Mcmahon : 1995 Admit date: 07/15/2023 Acct: [id number] Assessment/Plan: Gabrielle Mcmahon is a at 33w0d who admitted for threatened labor. Today is HD#3. Pt transferred here from an outside facility and is unassigned to [facility]. contractions - No cervical change on last [...] Moira Roa MD David F. MD [facility] EVA Sanders PA 07/17/2023, 8:03 AM * Crissy Akins RN - 07/17/2023 12:00 AM CDT Pts GBS was collected at [facility] on 07/14, pt received results via email [...] pending Urine GC pending GBS collected at [facility] and pending. S/p NICU consult on 07/15/23 Hx of bilateral PE in this As outpatient, pt on lovenox 100 mg bid. Reordered for 1130am on 07/15 See hematology note for additional details. 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 Continue [...] not included. July 15, 2023 Gabrielle Mcmahon [id number] OB Admit History & Physical CC: contractions HPI: at 32w5d who was a transfer from [facility]. She has had adequate care up to this point. She was seen at her routine visit today where she shared with her provider that she was having on and off contractions over the last couple of weeks but increased frequency and pressure over the last couple of days. She was evaluated on labor and delivery in [facility] and contractions were noted on NST. Transvaginal [...] did have growth ultrasound on 07/13 in [facility], vertex, EFW 27%, AC 30% Her OB [...] Negative GI: Negative BREAST: Negative : Negative DAMAGE ADJUSTER: Negative CV: Negative PULMONARY: Negative MUSCULOSKELETAL: Negative [...] Resource Strain: Low Risk (02/21/2022) Received from [facility] Overall Financial Resource Strain (CARDIA) Difficulty of Paying Living Expenses: Not hard at all Food Insecurity: No Food Insecurity (02/21/2022) Received from [facility] Hunger Vital Sign Worried About Running Out of Food in the Last Year: Never true Ran Out of Food in the Last Year: Never true Transportation Needs: No Transportation Needs (02/21/2022) Received from [facility] PRAPARE - Transportation Lack of Transportation (Medical): No Lack of Transportation (Non-Medical): No Physical Activity: Insufficiently Active (02/21/2022) Received from [facility] Exercise Vital Sign Days of Exercise per Week: 3 days Minutes of Exercise per Session: 20 min Stress: Stress Concern Present (02/21/2022) Received from [facility] [place] of Occupational Health - Occupational Stress Questionnaire Feeling of Stress : To some extent Social Connections: Unknown (08/26/2022) Re[facility] from [facility], [facility] Social Connections Frequency of Communication with Friends and Family: Not on file Interpersonal Safety: Not At Risk (02/21/2022) Received from [facility] Humiliation, Afraid, Rape, and Kick questionnaire Fear of Current or Ex-Partner: No Emotionally Abused: No Physically Abused: No Sexually Abused: No Housing Stability: Low Risk (02/21/2022) Received from [facility] Housing Stability Vital Sign Unable [...] mg/dL Mucus Urine Present Abnormal /LPF Specific [place] Urine 1.009 RBC Urine <1 /HPF Blood [...] 26.00 kg/m?? FHT 140, mod joyce, reactive [place]: irregular contractions Alert Awake in NAD, very [...] pending Urine GC pending GBS collected at [facility] and pending. Consider NICU consult tomorrow if applicable Hx of bilateral PE in this As outpatient, pt on lovenox 100 mg bid. Last dose at 0915 on 07/14. Will hold for tonight and if nolabor symptoms, plan to resume tomorrow morning. See hematology note for additional details. 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 Continue daily PNV Plan NST q shift and continuous monitoring if pt complaints of more that 5 contractions in an hour. Dispo; pt admitted to labor and delivery. Anticipate stay through the steroid window at minimum. 40 minutes spent on face to face time, documentation review, and h and p. Moira Roa MD MD Dept of ACCOUNTING ANALYST July 15, 2023 documented in this encounter Consult Notes * Alma Acosta, PORCELAIN BUILDUP ASSISTANT OFFSET PRESSMAN - 07/15/2023 8:57 PM CDTAssociated Order(s): NURSE PRACT IP CONSULT Images from the original note were not included. [facility] Neonatology Antepartum Counseling Consult: I was asked [...] lung development, nutrition, growth and development, and correction outcomes. I also explained the basic criteria [...] doctors names if she comes back to [facility]. * Provider Notification - Crissy Akins [...] negative GBS result via email notification from [facility]. * Provider Notification - Crissy Akins RN [...] ambulance at 1735 from being transferred from [facility]. Report received from EMS. Dr. Kumari [...] feels crampy and slight pelvic pressure. At [facility] she received 2 gr ampicillin at 1515. 30mg of Niphedipine at 1551, 1st dose of Beta at 1514 and an LR bolus of 1000cc [id number]. Cx seemed to space out after bolus. Pt has a hx of bilateral PE in . No diagnosis givenbut taking 100mg of lovenox BID and followed by Hem. She also had a wet prep done today 07/14 at ( [facility] labor [facility] delivery) and negative, Amniosure which was negative. FFN done and positive. US done as well for cervical length and 8mm 2, 80-3. GBS was colleted at [facility] as well 07/14. Once pt here UA/UC [...] - BLOOD ORDERABL ES Performing Organization Address [facility]/ZIP Co de Phone Number LABORATORY [facility] [address] floor, [address], [place] [address], [facility] [phone] * Rupture of Membranes by ROM Plus [...] BODY FLUIDS OR DERABLES Performing Organization Address [facility] Co de Phone Number LABORATORY [facility] [address], [address], [place] [address], [facility] [phone] * (ABNORMAL) Wet preparation (07/17/2023 6:52 PM [...] MD LAB - MICRO GENERAL ORDERABLES LABORATORY [facility] Acute Care Lab [address] 1[address] floor, [address] [place] [address], [facility] [phone] * Adult Type and Screen (07/15/2023 9:31 PM CDT) Pathologist [facility] ABO/RH(D) O POS 07/15/2023 7:26 PM CDT BLOOD BANK Antibody Screen Negative Negative 07/15/2023 7:26 PM CDT BLOOD BANK SPECIMEN EXPIRATION DATE [id number] 07/15/2023 7:26 PM CDT BLOOD BANK Blood STRUCTURE OF RIGHT UPPER LIMB / Unknown Venipuncture / Unknown 07/15/2023 9:31 PM CDT 07/15/2023 9:34 PM CDT Moira Roa MD LAB - BLOOD BANK MONISHA T ORDER BLOOD BANK [address] [place] [address], [facility] * (ABNORMAL) CBC with platelets and differential (07/15/2023 9:31 PM CDT) Pathologist [facility] WBC Count 10.6 4.0 - 11.0 10e3/uL [...] MD LAB - BLOOD ORDERABL ES LABORATORY [facility] Lab [address] 1[address] floor, [address] [place] [address], [facility] [phone] * (ABNORMAL) Creatinine (07/15/2023 9:31 PM CDT) Creatinine 0.47(L) 0.51 - 0.95 mg/dL 07/15/2023 9:55 PM CDT LABORATORY GFR Estimate >90 >60 mL/min/1.7 3m2 07/15/2023 9:55 PM CDT LABORATORY Blood STRUCTURE OF RIGHT UPPER LIMB / Unknown Venipuncture / Unknown 07/15/2023 9:31 PM CDT 07/15/2023 9:34 PM CDT Moira Roa MD LAB - BLOOD ORDERABL ES LABORATORY [facility] Lab [address], [address], [place] [address], [facility] [phone] * (ABNORMAL) UA with Microscopic reflex to Culture (07/15/2023 6:45 PM CDT) Color Urine Straw Colorless, Straw, Light Yellow, Yellow 07/15/2023 7:04 PM CDT LABORATORY Appearance Urine Clear Clear 07/15/19 7:04 PM CDT LABORATORY Glucose Urine Negative Negative mg/dL 07/15/2023 7:04 PM CDT LABORATORY Bilirubin Urine Negative Negative 7:04 PM CDT LABORATORY Ketones Urine 40(A) Negative mg/dL 07/15/2023 7:04 PM CDT LABORATORY Specific [place] Urine 1.009 1.003 - 1.035 07/15/2023 7:04 [...] MD LAB - URINE ORDERABL ES LABORATORY [facility] Lab [address], [address] [place] [address], [facility] [phone] * Chlamydia trachomatis/Neisseria gonorrhoeae by PCR (07/15/2023 6:23 PM CDT) [facility] Chlamydia Trachomatis Negative Negative 07/16/2023 12:02 PM CDT [facility] Comment: Negative for C. trachomatis rRNA by demand planning manager mediated amplification. A negative result by demand planning manager mediated amplification does not preclude the presence of infection because results are dependent on proper and adequate collection, absence of inhibitors and sufficient rRNA to be detected. Neisseria gonorrhoeae Negative Negative 07/16/2023 12:02 PM CDT [facility] Comment:Negative for N. gono rrhoeae rRNA by demand planning manager mediated amplification. A negative result by demand planning manager mediated amplification does not preclude the presence of C. trachomatis infection because results are dependent on proper and adequate collection, absence of inhibitors and sufficient rRNA to be detected. Urine VOIDED URINE SPECIMEN / Unknown Non-blood Collection / Unknown 07/15/2023 6:23 PM CDT 07/15/2023 6:30 PM CDT Moira Roa MD LAB - MICRO GENERAL ORDERABLES Performing Organization Address [facility] Co de Phone Number [facility] Inf. Diseases Diag. Lab [address] [facility], [address] [place] [address], [facility] * Group B Streptococcus (External Result) (07/15/2023) Group B Streptococcus (External) Negative Negative EXTERNAL LAB Patient Reported LAB - HIM EXTERNAL R ESULT Performing Organization Address [facility]/ZIP Co de Phone Number EXTERNAL LAB External Lab * ABO & RH (External Result) (01/26/2023) ABO (External) O EXTERNAL LAB Rh (External) POSITIVE EXTERNAL LAB Patient Reported LAB - HIM EXTERNAL R ESULT Performing Organization Address [facility] Co de Phone Number EXTERNAL LAB External Lab * HIV-1 Antibody (External Result) (01/26/2023) HIV 1&2 Antibody (External) Negative Nonreactive EXTERNAL LAB Patient Reported LAB - HIM EXTERNAL R ESULT Performing Organization Address [facility] Co de Phone Number EXTERNAL LAB External Lab * Rubella Antibody IgG (External Result) (01/26/2023) Rubella Antibody IgG (External) Immune Nonreactive EXTERNAL LAB Patient Reported LAB - HIM EXTERNAL R ESULT Performing Organization Address [facility] Co de Phone Number EXTERNAL LAB External Lab * Hepatitis B Surface Antigen (External Result) (01/26/2023) Hepatitis B Surface Antigen (External) Negative Nonreactive EXTERNAL LAB Patient Reported LAB - HIM EXTERNAL R ESULT Performing Organization Address [facility] Co de Phone Number EXTERNAL LAB [...] Akins RN) [phone] ($Given - Provider: Donita Dye, [...] Antepartum documented in this encounter Care Teams Assistant Product Manager Relationship Specialty Start Date End Date No Ref-Primary, Physician PCP - General 03/31/23 Oleg Aparicio, PABrightC [facility] [address] [place] [address] Assigned Cancer Care Provider 05/06/23 Ana Oreilly MD [address] [place] [address] [address] [place], [place] [address] Assigned OBGYN Provider 05/06/23 documented as of this encounter
--- OUTSIDE RECORDS SUMMARY | 2023-08-10 09:14 | XMS_ITS | Clinical Summary ---
Author Organization [facility] [place], [place] [address] Care Team Providers Care Psychiatry Resident Name Role Phone Marybeth Andrew MD Primary Care Provider + Allergies No known active allergies Medications No known medications Encounters Date Type Department Care Team Description 08/09/2023 Lab Requisition [facility] [phone] Jasmin Barrow MD from Last 3 Months 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 Tobacco [...] Procedure Name Priority Date/Time Associated Diagnosis Comments GEOCHEMIST THIN PREP PAP SCREEN IMAGED Routine 12/11/2020 2:40 PM CDT from Last 3 Months or Most Recently Relevant to Health Maintenance Results * GEOCHEMIST THIN PREP PAP SCREEN IMAGED (12/11/2020 2:40 PM CDT) Case Report Gynecologic Cytology Report ? Case: [id number] ? Authorizing Provider: ??Elizabeth Philip ?Collected: ? 12/11/2020 1440 ? [place], ? Ordering Location: ? [facility] ?Received: ?12/15/2020 0858 ? First Screen: ?Baccam, Minie ? Specimen: ?GEOCHEMIST ThinPrep Vial Screening, Cervical/Vaginal ? 12/26/2020 2:03 PM CDT [facility] INTERPRETATION/ RESULT NEGATIVE FOR INTRAEPITHELIAL LESION OR MALIGNANCY (NIL) (none) 12/26/2020 2:03 PM CDT [facility] IMEN ADEQUACY Satisfactory for evaluation No endocervical component seen 12/26/2020 2:03 PM CDT [facility] HPV REQUEST HPV if ASCUS 12/26/2020 2:03 PM CDT [facility] Date of LMP 11/04/2020 12/26/2020 2:03 PM CDT [facility] Menstrual Status 12/26/2020 2:03 PM CDT [facility] Additional Information 12/26/2020 2:03 PM CDT [facility] Comment: Interpreted at [facility], Central Laboratory - [address] [facility] [address], [place] [address] Automated Review Successful 12/26/2020 2:03 PM CDT [facility] Comment:Specimen processed s uccessfully by automated resaw carriage operator device, ThinPrep Imaging System, [employer] Note The pap test is a [...] and malignant lesions. 12/26/2020 2:03 PM CDT [facility] Other (Cervical/Vagina l) 12/11/2020 2:40 PM CDT 12/15/2020 8:58 AM CDT Elizabeth Philip MD PATHOLOGY/ CYTOLOGY [facility]AL LABORATORY [address] [facility] [employer] [address] [place] [address], from Last 3 Months or Most Recently Relevant to Health Maintenance Care Teams Psychiatry Resident Relationship Specialty Start Date End Date Marybeth Anrdew MD [address] [place] [address] PCP - General Family Practice 08/20/22
--- OUTSIDE RECORDS SUMMARY | 2023-08-10 09:14 | XMS_ITS | Encounter Summary ---
Author Organization [place] Address [address] [facility] [place] [address] Care Team Providers Care Process Equipment Operator Name Role Phone No Ref-Primary, Physician Primary Care Provider Oleg Aparicio PA-C Unavailable [phone] Ana Oreilly MD Unavailable [phone] Encounter Details Date Type Department Care [...] on filedocumented in this encounter Care Teams Process Equipment Operator Relationship Specialty Start Date End Date No Ref-Primary, Physician PCP - General 03/31/23 Oleg Aparicio PA-C [address] [place] [address] [address] [place] [address] Assigned Cancer Care Provider 05/06/23 Ana Oreilly MD [address] [facility] [address] [place] [address] Assigned OBGYN Provider 05/06/23 documented as of this encounter
--- OUTSIDE RECORDS SUMMARY | 2023-08-10 09:14 | XMS_ITS | Encounter Summary ---
Author Organization [place] Address [address] [facility] [place] [address] Care Team Providers Care Rod Cup Filler Name Role Phone No Ref-Primary, Physician Primary Care Provider Oleg Aparicio PA-C Unavailable [phone] Ana Oreilly MD Unavailable [phone] Encounter Details Date Type Department Care Team (Late st Contact Info) Description 07/15/2023 Hospital Encounter [facility] [address] [phone] Moira Roa MD [address] [id number] 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 Tobacco Use Types Packs/Day Years [...] on filedocumented in this encounter Care Teams Rod Cup Filler Relationship Specialty Start Date End Date No Ref-Primary, Physician PCP - General 03/31/23 Oleg Aparicio, PABrightC [address] [place] [address] [address] [place], [place] [address] Assigned Cancer Care Provider 05/06/23 Ana Oreilly MD [address] [facility] [address] [place], [place] [address] Assigned OBGYN Provider 05/06/23 documented as of this encounter
--- OUTSIDE RECORDS SUMMARY | 2023-08-10 09:14 | XMS_ITS | Clinical Summary ---
Author Organization [facility] Address [address] [place] [address] Care Team Providers Care Order Booker Name Role Phone Elsewhere, Pcp Primary Care Provider Unavailabl e Source Comments Patient records contain information from all sites at [facility]. For routine questions regarding patient records, call [phone] during business hours, M-F 8:00 AM - 5:00 PM Central Time. Record requests for emergency care only can be directed to [phone] at any time.[facility] Allergies No known active allergies Medications Medication Sig Dispensed Refills Start Date End Date Status [id number] (VINATE ONE) 60 mg iron-1 mg per [...] How often do you attend chur or hoahaoism services? More than 4 times per year 02/21/2022 Do you belong to any clubs o r organizations such as nondenominational groups, unions, fraternal or athletic groups, or [...] and heating? Not hard at all 02/21/2022 [facility] [place] of Occupat ional Health - Occupational Stress [...] place to sleep or slept in a skilled nursing (including now)? 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 GLASS PAINTER Gender Identity Female 02/21/2022 11:00 AM STAINED GLASS PAINTER Sexual Orientation Straight 02/21/2022 11 :00 AM STAINED GLASS PAINTER Last Filed Vital Signs Vital Sign Reading Time Taken Comments Blood Pressure - - Pulse - - Temperature 36.6 ??C (97.9 ??F) 02/24/2022 12:[address] Respiratory Rate - - Oxygen Saturation - - Inhaled Oxygen Concentration - - Weight 72.4 kg (159 lb 9.8 oz) 02/24/2022 12:38 PM STAINED GLASS PAINTER Height 169.7 cm (5' 6.81) 02/24/2022 12:[address] Body Mass Index 25.14 02/24/2022 12:38 PM STAINED GLASS PAINTER Plan of Treatment Health Maintenance Due Date [...] age to complete this topic Care Teams Order Booker Relationship Specialty Start Date End Date Elsewhere, Pcp PCP - General Internal Medicine 02/24/22
--- OUTSIDE RECORDS SUMMARY | 2023-08-10 09:14 | XMS_ITS | Encounter Summary ---
Author Organization [place] Address [address] [facility] [address] Care Team Providers Care State Pilot Name Role Phone No Ref-Primary, Physician Primary Care Provider Oleg Aparicio PA-C Unavailable [phone] Ana Oreilly MD Unavailable [phone] Reason for Visit * Reason Comments Deep Vein Thrombosis Encounter Details Date Type Department Care Team (Late st Contact Info) Description 07/04/2023 2:30 PM CDT Office Visit [facility] [address] [place] [address] Oleg Aparicio PA-C [address] [place] [address] Pulmonary embolism affecting in second [...] included. [facility] [address] [place] [address] Main: [phone], Patient seen at: [place] [facility] at [address] [place] [address] Outpatient Visit Note: Patient: Gabrielle Mcmahon : 1995 DEBORAH: July 04, 2023 Location of this mortgage loan underwriter at the time of this clinic visit was conducted: [facility], [facility]. Location of the patient at the time of this clinic visit was conducted: [facility] Clotting [...] up. She was last seen by this mortgage loan underwriter back on 04/28/2023. Thrombosis History Summary: [...] both lower extremities. 03/08/2023, she presented to [facility] emergency department with chest pain. [...] History: 04/28/2023, she established care with this mortgage loan underwriter and I determined that her pulmonary [...] and PmHx: All are reviewed by this mortgage loan underwriter today via electronic medical records Social [...] venous thromboembolism. Oleg Aparicio PA-C, MPAS Physician Air Bag Curer [facility] for Bleeding and Clotting Disorders. The longitudinal [...] incidental documented in this encounter Care Teams State Pilot Relationship Specialty Start Date End Date No Ref-Primary, Physician PCP - General 03/31/23 Oleg Apaircio PA-C [address] [place], [place] [address] Assigned Cancer Care Provider 05/06/23 Ana Oreilly MD [address] [place], [place] [address] Assigned OBGYN Provider 05/06/23 documented as of this encounter
--- OUTSIDE RECORDS SUMMARY | 2023-08-10 09:14 | XMS_ITS | Encounter Summary ---
Author Organization [place] Address [address] [place] [address] Care Team Providers Care Cut Filer Name Role Phone No Ref-Primary, Physician Primary Care Provider Oleg Aparicio PA-C Unavailable [phone] Ana Oreilly MD Unavailable [phone] Reason for Referral * Diagnostic Imaging Ultrasound (Routine) - Pending Review Specialty Diagnoses / Procedures Referred By Contac t Referred To Contact Radiology. Diagnoses Encounter for ultrasound to check growth Procedures [facility] US Comprehensive Single F/U Ori Adame MD [address] [facility] [employer] [address] [address] Referral ID Status Reason Start Date Expiration Date V isits Requested Visits Authorized [id number] Pending Review 05/31/2023 05/30/2024 1 1 Reason for Visit * Diagnostic Imaging Ultrasound (Routine) - Pending Review Specialty Diagnoses / Procedures Referred By Contac t Referred To Contact Radiology. Diagnoses Encounter for ultrasound to check growth Procedures [facility] US Comprehensive Single F/U Ori Adame MD [address] [employer] [address] [address] Referral ID Status Reason Start Date Expiration Date V isits Requested Visits Authorized [id number] Pending Review 05/31/2023 05/30/2024 1 1 Encounter Details Date Type Department Care Team (Latest Contact Info) Description 06/21/2023 9:30 AM CDT - 06/21/2023 11:59 PM CDT Hospital Encounter [facility] [place] [address] [facility] [address] [place] [address] Ori Adame MD [address] [place] [address] Encounter for ultrasound to check [...] Procedure Name Priority Date/Time Associated Diagnosis Comments [facility] US COMPREHENSIVE SINGLE F/U Routine 06/21/2023 10:50 AM CDT Encounter for ultrasound to check growth documented in this encounter Results * [facility] Comprehensive Single F/U (06/21/2023 10:50 [...] ? Study Date: ??06/21/2023 9:50am Pat. NO: ??[id number] ?Referring ??MD: TRISTA MELLO Site: ??[facility] ? Auger Machine Offbearer: Chanda Lazo RDMS : ??1995 ?Age: ?? [...] 2 lb 12 ?oz EFW by ?Hadlock (ISD-MR-DC-FL) Head / Face / Neck Biometry: Informaticist ? 4.9 ? mm CM ?5.5 ? mm ANATOMY ----- The following structures appear normal: Head / Neck ? Cranium. Head size. Head shape. Lateral ventricles. Midline falx. Cerebellum. Cisterna magna. Thalami. Face ? Lips. Profile. Nose. Heart / Thorax ?4-chamber view. RVOT view. LVOT view. 6-nacvdg-ezudzgo view. ? Diaphragm. Abdomen ? Stomach. Kidneys. [...] [place] Study Date: 06/21/2023 9:50am Pat. NO: [id number] Referring MD: TRISTA MELLO Site: [facility] Auger Machine Offbearer: Chanda MELLY Lazo : 1995 Age: 28 [...] 2 lb 12 oz EFW by Hadlock (AQL-LA-AR-FL) Head / Face / Neck Biometry: Informaticist 4.9 mm CM 5.5 mm ANATOMY ----- The following structures appear normal: Head / Neck Cranium. Head size. Head shape.Lateral ventricles. Midline falx. Cerebellum. Cisterna magna. Thalami. Face Lips. Profile. Nose. Heart / Thorax 4-chamber view. RVOT view. LVOT view.2-hfbszk-cvubwvo view. Diaphragm. Abdomen Stomach. Kidneys. Bladder. Spine [...] volume appeared normal. Ori Adame MD IMG [facility] US ORDERABL ES documented in this encounter Visit Diagnoses Diagnosis Encounter for ultrasound to check growth documented in this encounter Care Teams Cut Filer Relationship Specialty Start Date End Date No Ref-Primary, Physician PCP - General 03/31/23 Oleg Aparicio, RUPAL [address] [place] [address] Assigned Cancer Care Provider 05/06/23 Ana Oreilly MD [address] [place] [address] Assigned OBGYN Provider 05/06/23 documented as of this encounter
--- OUTSIDE RECORDS SUMMARY | 2023-08-10 09:14 | XMS_ITS | Encounter Summary ---
Author Organization [place] Address [address] [facility] [place] [address] Care Team Providers Care Kitchen Steward/Stewardess Name Role Phone No Ref-Primary, Physician Primary Care Provider Oleg Aparicio PA-C Unavailable [phone] Ana Oreilly MD Unavailable [phone] Reason for Referral * Diagnostic Imaging Ultrasound (Routine) - Pending Review Specialty Diagnoses / Procedures Referred By Contsandy t Referred To Contact Radiology. Diagnoses Encounter for ultrasound to check growth Procedures [facility] US Comprehensive Single F/U Ori Adame MD [address] [place] [address] Referral ID Status Reason Start Date Expiration Date V isits Requested Visits Authorized [id number] Pending Review 05/31/2023 05/30/2024 1 1 Reason for Visit * Reason Comments Ultrasound RL2-reassess g rowth, EFW 15% Encounter Details Date Type Department Care Team (Late st Contact Info) Description 05/31/2023 11:30 AM CDT Office Visit [facility] [place] [address] [place] [address] Ori Adame MD [address] [place] [address] Encounter for ultrasound to check [...] for details of today's US at the [facility]. Ori Adame MD Maternal- Medicine documented in [...] OB givenhistory of PE. SBAR given to [facility] (Dr. Adame), see their note in Epic. documented in this encounter Plan of Treatment Not on file documented as of this encounter Results * [facility] US Comprehensive Single F/U (06/21/2023 10:50 [...] ? Study Date: ??06/21/2023 9:50am Pat. NO: ??[id number] ?Referring ??: TRISTA MELLO Site: ??[facility] ? Health Management Consultant: Chanda Lazo RDMS : ??1995 ?Age: [...] 2 lb 12 ?oz EFW by ?Hadlock (ITA-QS-AJ-FL) Head / Face / Neck Biometry: Brand Leader ? 4.9 ? mm CM ?5.5 ? mm ANATOMY ----- The following structures appear normal: Head / Neck ? Cranium. Head size. Head shape. Lateral ventricles. Midline falx. Cerebellum. Cisterna magna. Thalami. Face ? Lips. Profile. Nose. Heart / Thorax ?4-chamber view. RVOT view. LVOT view. 6-horrqc-zkspmxq view. ? Diaphragm. Abdomen ? Stomach. Kidneys. [...] [place] Study Date: 06/21/2023 9:50am Pat. NO: [id number] Referring MD: TRISTA MELLO Site: [facility] Health Management Consultant: Chanda Lazo RDMS : 1995 Age: [...] 2 lb 12 oz EFW by Hadlock (YCT-TO-YE-FL) Head / Face / Neck Biometry: Brand Leader 4.9 mm CM 5.5 mm ANATOMY ----- The following structures appear normal: Head / Neck Cranium. Head size. Head shape.Lateral ventricles. Midline falx. Cerebellum. Cisterna magna. Thalami. Face Lips. Profile. Nose. Heart / Thorax 4-chamber view. RVOT view. LVOT view.6-yfwnpj-iizctcw view. Diaphragm. Abdomen Stomach. Kidneys. Bladder. Spine [...] fluid volume appeared normal. Ori Adame MD [facility] US ORDERABL ES documented in this encounter Visit Diagnoses Diagnosis Encounter for ultrasound to check growth- Primary Encounter for ultrasound to check growth documented in this encounter Care Teams Kitchen Steward/Stewardess Relationship Specialty Start Date End Date No Ref-Primary, Physician PCP - General 03/31/23 Oleg Aparicio PA-C [address] [place] [address] [address] [place] [address] Assigned Cancer Care Provider 05/06/23 Ana Oreilly MD [address] [address] [place], [place] [address] Assigned OBGYN Provider 05/06/23 documented as of this encounter
--- OUTSIDE RECORDS SUMMARY | 2023-08-10 09:14 | XMS_ITS | Encounter Summary ---
Author Organization [place] Address [address] [facility] [place] [address] Care Team Providers Care Hematology Oncology Consultant Name Role Phone No Ref-Primary, Physician Primary Care Provider Oleg Aparicio PA-C Unavailable [phone] Ana Oreilly MD Unavailable [phone] Encounter Details Date Type Department Care [...] on filedocumented in this encounter Care Teams Hematology Oncology Consultant Relationship Specialty Start Date End Date No Ref-Primary, Physician PCP - General 03/31/23 Oleg Aparicio PA-C [address] [place] [address] [address] [place] [address] Assigned Cancer Care Provider 05/06/23 Ana Oreilly MD [address] [facility] [address] [place] [address] Assigned OBGYN Provider 05/06/23 documented as of this encounter
--- OUTSIDE RECORDS SUMMARY | 2023-08-10 09:14 | XMS_ITS | Encounter Summary ---
Author Organization [place] Address [address] [facility] [address] Care Team Providers Care Molder Trimmer Name Role Phone No Ref-Primary, Physician Primary Care Provider Oleg Aparicio PA-C Unavailable [phone] Ana Oreilly MD Unavailable [phone] Encounter Details Date Type Department Care Team (Late st Contact Info) Description 08/04/2023 Orders Only [facility] for Bleeding and Clotting Disorders [address] [place] [address] Oleg Aparicio PA-C [address] [place] [address] 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 Tobacco Use Types [...] original note were not included. [facility] [address], [address], [place] [address] Main: [phone], Telephone Note: Patient: Gabrielle Mcmahon : 1995 Date of this note written: August 04, 2023 [address] a call from Dr. Rajan Lantigua Toe Sewer in [facility] about Gabrielle's status on her . In the past couple weeks, she has 2 incidents where she possibly has gone into labor and held her enoxaparin dosing as directed. On 07/15/2023, she was admitted after having some contraction at [facility] at around 32w5d. During this hospitalization, enoxaparin [...] bleeding event. Oleg Aparicio PA-C, MPAS Physician Plumber Helper [facility] for Bleeding and Clotting Disorders. documented in this encounter Plan of Treatment Not on file documented as of this encounter Visit Diagnoses Not on filedocumented in this encounter Care Teams Molder Trimmer Relationship Specialty Start Date End Date No Ref-Primary, Physician PCP - General 03/31/23 Oleg Aparicio PA-C [facility] [address] [place], [place] [address] Assigned Cancer Care Provider 05/06/23 Ana Oreilly MD [address] [address] [place] [address] Assigned OBGYN Provider 05/06/23 documented as of this encounter
--- OUTSIDE RECORDS SUMMARY | 2023-08-10 09:14 | XMS_ITS | Encounter Summary ---
Author Organization [place] Address [address] [facility] [place] [address] Care Team Providers Care Multifocal Lens Inspector Name Role Phone No Ref-Primary, Physician Primary Care Provider Oleg Aparicio PA-C Unavailable [phone] Ana Oreilly MD Unavailable [phone] Reason for Visit * Reason Onset Date Comments Call To Schedule Appointment 07/28/2023 Mariusz duque with Pt- per ptOleg advised to F/U one month after child is born. Will call back to schedule. Encounter Details Date Type Department Care Team (Late st Contact Info) Description 07/28/2023 Telephone [facility] [address] [place] [address] Resource, Ur Hemo Call To [...] on filedocumented in this encounter Care Teams Multifocal Lens Inspector Relationship Specialty Start Date End Date No Ref-Primary, Physician PCP - General 03/31/23 Oleg Aparicio, PA-C [address] [place] [address] Assigned Cancer Care Provider 05/06/23 Ana Oreilly MD [address] [place] [id number] Assigned OBGYN Provider 05/06/23 documented as of this encounter
--- OUTSIDE RECORDS SUMMARY | 2023-08-10 09:14 | XMS_ITS | Encounter Summary ---
Author Organization [place] Address [address] [place] [address]. [place] [address] Care Team Providers Care Licensed Home Inspector Name Role Phone No Ref-Primary, Physician Primary Care Provider Oleg Aparicio PA-C Unavailable [phone] Ana Oreilly MD Unavailable [phone] Encounter Details Date Type Department Care Team (Late st Contact Info) Description 04/28/2023 [facility] Medical Advice [facility] for Bleeding and Clotting Disorders [address] [place] [address] Carmen Pollack RN 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 [...] on filedocumented in this encounter Care Teams Licensed Home Inspector Relationship Specialty Start Date End Date No Ref-Primary, Physician PCP - General 03/31/23 Oleg Aparicio PA-C [address] [place] [address] Assigned Cancer Care Provider 05/06/23 Ana Oreilly MD [address] [place] [address] Assigned OBGYN Provider 05/06/23 documented as of this encounter
--- OUTSIDE RECORDS SUMMARY | 2023-08-10 09:14 | XMS_ITS | Encounter Summary ---
Author Organization [place] Address [address] [place] [address]. [place] [address] Care Team Providers Care Graphite Grinder Name Role Phone No Ref-Primary, Physician Primary Care Provider Oleg Aparicio PA-C Unavailable [phone] Ana Oreilly MD Unavailable [phone] Encounter Details Date Type Department Care Team (Late st Contact Info) Description 06/22/2023 [facility] Medical Advice [facility] Clot[facility] Disorders [address] [place] [address] Oleg Aparicio PA-C [address] [place] [address] 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 Tobacco Use Types [...] Lovenox at 8:56 AM. She needs to knot picker cloth refills but wants to make sure she is on the correct dose as she recently started her third trimester. Patient verbalized understanding and will go to lab. Sandie White RN, BSN, PCCN Nurse Clinician [facility] for Bleeding and Clotting Disorders [address] [place] [address] [address], [place] [address] Office, direct: [phone] Main office number: [phone] Pronouns: She, her, hers documented in this encounter Plan of Treatment Not on file documented as of this encounter Visit Diagnoses Not on filedocumented in this encounter Care Teams Graphite Grinder Relationship Specialty Start Date End Date No Ref-Primary, Physician PCP - General 03/31/23 Oleg Aparicio, JULIAC [address] [place] [address] Assigned Cancer Care Provider 05/06/23 Ana Oreilly MD [address] [address] Assigned OBGYN Provider 05/06/23 documented as of this encounter
--- OUTSIDE RECORDS SUMMARY | 2023-08-10 09:14 | XMS_ITS | Encounter Summary ---
Author Organization [place] Address [address] [facility] [place] [address] Care Team Providers Care Production Machine Operator Name Role Phone No Ref-Primary, Physician Primary Care Provider Oleg Aparicio PA-C Unavailable [phone] Ana Oreilly MD Unavailable [phone] Encounter Details Date Type Department Care [...] on filedocumented in this encounter Care Teams Production Machine Operator Relationship Specialty Start Date End Date No Ref-Primary, Physician PCP - General 03/31/23 Oleg Aparicio PA-C [address] [place] [address] [address] [place] [address] Assigned Cancer Care Provider 05/06/23 Ana Oreilly MD [address] [facility] [address] [place] [address] Assigned OBGYN Provider 05/06/23 documented as of this encounter
--- OUTSIDE RECORDS SUMMARY | 2023-08-10 09:14 | XMS_ITS | Encounter Summary ---
Author Organization [place] Address [address] [place] [address] Care Team Providers Care Bass Singer Name Role Phone No Ref-Primary, Physician Primary Care Provider Oleg Aparicio PA-C Unavailable [phone] Ana Oreilly MD Unavailable [phone] Encounter Details Date Type Department Care Team (Late st Contact Info) Description 06/22/2023 2:00 PM CDT Lab [facility] [address] [facility] [address] [place] [address] Pulmonary embolism affecting in second [...] LAB - BLOOD ORDERABL ES [facility] Core Lab [address] [facility], Room [address] [place] [id number] documented in this encounter Visit Diagnoses Diagnosis Pulmonary embolism affecting in second trimester documented in this encounter Care Teams Bass Singer Relationship Specialty Start Date End Date No Ref-Primary, Physician PCP - General 03/31/23 Oleg Aparicio PA-C [address] [facility] [address] [place], [place] [address] Assigned Cancer Care Provider 05/06/23 Ana Oreilly MD [address] [place] [address] Assigned OBGYN Provider 05/06/23 documented as of this encounter
--- OUTSIDE RECORDS SUMMARY | 2023-08-10 09:14 | XMS_ITS | Encounter Summary ---
Author Organization [place] Address [address] [facility] [place] [address] Care Team Providers Care Weekend Receptionist Name Role Phone No Ref-Primary, Physician Primary Care Provider Oleg Aparicio PA-C Unavailable [phone] Ana Oreilly MD Unavailable [phone] Reason for Visit * Reason Comments Ultrasound RL2-EFW14% Encounter Details Date Type Department Care Team (Late st Contact Info) Description 06/21/2023 10:00 AM CDT Office Visit [facility] [place] [address] [facility] [address] [place] [address] Ori Adame MD [address] [place] [address] Encounter for ultrasound to check [...] for details of today's US at the [facility]. Ori Adame MD Maternal- Medicine documented in this encounter Nursing Notes * Mara Cheung RN - 06/21/2023 10:00 AM CDT Patient reports good movement, reports [place] Thoams contractions, denies leaking of fluid, or bleeding. SBAR given to [facility] MD, see their note in Epic. documented in this encounter Plan of Treatment Not on file documented as of this encounter Visit Diagnoses Diagnosis Encounter for ultrasound to check growth- Primary documented in this encounter Care Teams Weekend Receptionist Relationship Specialty Start Date End Date No Ref-Primary, Physician PCP - General 03/31/23 Oleg Aparicio PA-C [address] [place] [address] Assigned Cancer Care Provider 05/06/23 Ana Oreilly MD [address] [place] [address] Assigned OBGYN Provider 05/06/23 documented as of this encounter
--- OUTSIDE RECORDS SUMMARY | 2023-08-10 09:14 | XMS_ITS | Encounter Summary ---
Author Organization [place] Address [address] [place] [address] Care Team Providers Care Correspondence Renew Clerk Name Role Phone No Ref-Primary, Physician Primary Care Provider Oleg Aparicio PA-C Unavailable [phone] Ana Oreilly MD Unavailable [phone] Encounter Details Date Type Department Care Team (Late st Contact Info) Description 08/04/2023 Telephone [facility] Medicine [facility] [place] [address] [place] [address] Jeanette Truong MD [address] [place] [address] 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 Tobacco Use Types [...] lovenox. I reviewed with the provider the [facility] consult from 04/12/23 for this indication. [...] something that we recommend as standardwithin our [facility] group at this time. I do not see an indication for transfer to [facility] care at this time, given distance [...] care documented in this encounter Care Teams Correspondence Renew Clerk Relationship Specialty Start Date End Date No Ref-Primary, Physician PCP - General 03/31/23 Oleg Aparicio, PABrightC [address] [place], [place] [address] Assigned Cancer Care Provider 05/06/23 Ana Orielly MD [address] [place], [place] [address] Assigned OBGYN Provider 05/06/23 documented as of this encounter
--- OUTSIDE RECORDS SUMMARY | 2023-08-10 09:14 | XMS_ITS | Encounter Summary ---
Author Organization [place] Address [address] [facility] [place] [address] Care Team Providers Care Habilitative Interventionist Name Role Phone No Ref-Primary, Physician Primary Care Provider Oleg Aparicio PA-C Unavailable [phone] Ana Oreilly MD Unavailable [phone] Reason for Referral * Diagnostic Imaging Ultrasound (Routine) - Pending Review Specialty Diagnoses / Procedures Referred By Contac t Referred To Contact Radiology. Diagnoses Pulmonary embolism affecting in second trimester Procedures [facility] Comprehensive Single F/U Ana Oreilly MD [address] [facility] [address] [address] Referral ID Status Reason Start Date Expiration Date V isits Requested Visits Authorized [id number] Pending Review 04/12/2023 04/11/2024 1 1 Reason for Visit * Diagnostic Imaging Ultrasound (Routine) - Pending Review Specialty Diagnoses / Procedures Referred By Contac t Referred To Contact Radiology. Diagnoses Pulmonary embolism affecting in second trimester Procedures [facility] Comprehensive Single F/U Ana Oreilly MD [address] [place] [address] Referral ID Status Reason Start Date Expiration Date V isits Requested Visits Authorized [id number] Pending Review 04/12/2023 04/11/2024 1 1 Encounter Details Date Type Department Care Team (Latest Contact Info) Description 05/10/2023 9:28 AM CDT - 05/10/2023 11:59 PM CDT Hospital Encounter [facility] [place] [address] [place] [address] Ori Adame MD [address] [place] [address] Pulmonary embolism affecting in second [...] Procedure Name Priority Date/Time Associated Diagnosis Comments [facility] COMPREHENSIVE SINGLE F/U Routine 05/10/2023 10:08 AM CDT Pulmonary embolism affecting in second trimester documented in this encounter Results * [facility] Comprehensive Single F/U (05/10/2023 10:08 AM [...] ? Study Date: ??05/10/2023 9:30am Pat. NO: ??[id number] ?Referring ??MD: TRISTA MELLO Site: ??[facility] ? Instructional Developer: Yamel Hill RDMS : ??1995 ?Age: ?? [...] 1 lb 2 ?oz EFW by ?Hadlock ([id number]) Head / Face / Neck Biometry: Lath Hand ? 6.2 ? mm CM ?3.8 ? mm Nasal bone ? 7.0 ? mm ANATOMY ----- The following structures appear normal: Head / Neck ? Cranium. Head size. Head shape. Lateral ventricles. Midline falx. Cavum septi pellucidi. Cerebellum. Cisterna magna. Thalami. Face ? Lips. Profile. Nose. Maxilla. Mandible. Heart / Thorax ?4-chamber view. RVOT view. LVOT view. Situs. 5-obxqbm-ppsdiky view. ? Diaphragm. Abdomen ? Stomach. Kidneys. [...] [place] Study Date: 05/10/2023 9:30am Pat. NO: [id number] Referring MD: TRISTA MELLO Site: [facility] Instructional Developer: Yamel Hill RDMS : 1995 Age: 27 [...] 1 lb 2 oz EFW by Hadlock ([id number]) Head / Face / Neck Biometry: Lath Hand 6.2 mm CM 3.8 mm Nasal bone 7.0 mm ANATOMY ----- The following structures appear normal: Head / Neck Cranium. Head size. Head shape.Lateral ventricles. Midline falx. Cavum septi pellucidi. Cerebellum.Cisterna magna. Thalami. Face Lips. Profile. Nose. Maxilla.Mandible. Heart / Thorax 4-chamber view. RVOT view. LVOT view.Situs. 3-qiksft-abyqubv view. Diaphragm. Abdomen Stomach. Kidneys. Bladder. Spine [...] trimester documented in this encounter Care Teams Habilitative Interventionist Relationship Specialty Start Date End Date No Ref-Primary, Physician PCP - General 03/31/23 Oleg Aparicio, [facility] [address] [place] [address] [address] [place] [address] Assigned Cancer Care Provider 05/06/23 Ana Oreilly MD [address] [facility] [address] [place] [address] Assigned OBGYN Provider 05/06/23 documented as of this encounter
--- OUTSIDE RECORDS SUMMARY | 2023-08-10 09:14 | XMS_ITS | Encounter Summary ---
Author Organization [place] Address [address] [facility] [place] [address] Care Team Providers Care Realty Loan Specialist Name Role Phone No Ref-Primary, Physician Primary Care Provider Oleg Aparicio PA-C Unavailable [phone] Ana Oreilly MD Unavailable [phone] Reason for Visit * Reason Onset Date Comments CONSENT 07/15/2023 Called pt to rec eive verbal consent to fax to another health office on her care team. LVM to CB. Encounter Details Date Type Department Care Team (Late st Contact Info) Description 07/15/2023 Telephone [facility] [address] [place] [address] Oleg Aparicio PA-C [address] [place] [address] CONSENT (Called pt to receive [...] on filedocumented in this encounter Care Teams Realty Loan Specialist Relationship Specialty Start Date End Date No Ref-Primary, Physician PCP - General 03/31/23 Oleg Aparicio, P[facility] [address] [place], [place] [address] Assigned Cancer Care Provider 05/06/23 Ana Oreilly MD [address] [place], [place] [address] Assigned OBGYN Provider 05/06/23 documented as of this encounter
--- OUTSIDE RECORDS SUMMARY | 2023-08-10 09:15 | XMS_ITS | Referral Summary ---
Author Organization [facility] Address [address] [place] [address] Care Team Providers Care Mine Car Dispatcher Name Role Phone Elsewhere, Pcp Primary Care Provider Unavailabl e Source Comments Patient records contain information from all sites at [facility]. For routine questions regarding patient records, call [phone] during business hours, M-F 8:00 AM - 5:00 PM Central Time. Record requests for emergency care only can be directed to [phone] at any time.[facility] Allergies No known active allergies Medications Medication Sig Dispensed Refills Start Date End Date Status [id number] (VINATE ONE) 60 mg iron-1 mg per [...] How often do you attend chur or pentecostal services? More than 4 times per year 02/21/2022 Do you belong to any clubs o r organizations such as holiness groups, unions, fraternal or athletic groups, or [...] and heating? Not hard at all 02/21/2022 [facility] - Occupational Stress [...] place to sleep or slept in a correction (including now)? No 02/21/2022 Nutrition Answer Date [...] Sex Assigned at Female 02/21/2022 11:00 AM SEPARATIONS SCIENTIST Gender Identity Female 02/21/2022 11:00 AM SEPARATIONS SCIENTIST Sexual Orientation Straight 02/21/2022 11 :00 AM SEPARATIONS SCIENTIST Last Filed Vital Signs Vital Sign Reading Time Taken Comments Blood Pressure - - Pulse - - Temperature 36.6 ??C (97.9 ??F) 02/24/2022 12:[address] Respiratory Rate - - Oxygen Saturation - - Inhaled Oxygen Concentration - - Weight 72.4 kg (159 lb 9.8 oz) 02/24/2022 12:38 PM SEPARATIONS SCIENTIST Height 169.7 cm (5' 6.81) 02/24/2022 12:[address] Body Mass Index 25.14 02/24/2022 12:38 PM SEPARATIONS SCIENTIST Plan of Treatment Not on file Care Teams Mine Car Dispatcher Relationship Specialty Start Date End Date Elsewhere, Pcp PCP - General Internal Medicine 02/24/22
--- OUTSIDE RECORDS SUMMARY | 2023-08-10 09:15 | XMS_ITS ---
Author Organization [facility] Address [address] [place] [address] Care Team Providers Care Pressroom Foreman Name Role Phone Unavailable Unavailable Unavailable Surgery Details Not on file Complications Check Surgery Details section. Procedure Estimated Blood Loss Check Surgery Details section. Procedure Findings Check Surgery Details section. Procedure Specimens Taken Check Surgery Details section.
[2023-08-10] MEDS: ENOXAPARIN 100 MG/ML INJ SUBCUT (12:00)
--- NOTE | 2023-08-10 14:03 | PM.OBPNVD1 ---
OB - PN:Subj Subjective Date Seen: 08/10/23 Patient comments OB post-: no complaints, pain well controlled, tolerating diet and flatus present [place] status: (bottle feeding expressed milk and donor milk) and doing well feeding status: breast and bottle feeding Narrative: Gabrielle is doing well .? Her pain is well controlled with current medications and heat for abdominal cramping.? She has no new complaints.? Urinary output is adequate and she is voiding without difficulty.? Has a good appetite, is tolerating a general diet, is passing flatus, and has not had a bowel movement.? Has small amount of rubra lochia.? She is ambulating well and using SCDs when in bed. She is pumping and bottle feeding and supplementing with donor breast milk. She was restarted on Lovenox yesterday and will continue after discharge. OB - PN: Obj Exam Physical Exam: Vital signs: Temp Pulse Resp BP Pulse Ox O2 Del Method 98.1 F 73 16 107/68 97 Room Air 08/10/23 09:08 08/10/23 09:08 08/10/23 09:08 08/10/23 09:08 08/10/23 09:08 08/10/23 09:08 Narrative: GENERAL APPEARANCE:? normal affect, alert, no distress? MOOD:? appropriate? CHEST:? clear to auscultation and percussion? HEART:? regular rate and rhythm? ABDOMEN:? soft, non-tender the uterine fundus is u/2 and is appropriate for the stage of recovery.? PERINEUM:? mild edema of the perineum, there is a 1st degree vaginal laceration that is healing well.? EXTREMITIES:? normal and no edema? OB - PN: Obj Data Labs Labs: Laboratory Results - last 24 hr 08/10/23 06:40 Hgb 11.1 L OB - PN: A/P Delivery Assessment and Plan (1) Lactating mother: Status: Acute (2) care following vaginal delivery: Status: Acute (3) Hx of pulmonary embolus during : Status: Acute Plan day: 1 Plan: routine care Comments: Continue with Lovenox BID and monitor for PE s/sx. Anticipate discharge home tomorrow.
[2023-08-10 16:08] VITALS: BP 98/63; PULSE 80; RESP 16; TEMP 36.6; O2SAT 97
[2023-08-10 18:06] LABS: Rapid Plasma Reagin (RPR) Non Reactive (Non Reactive)
[2023-08-11 00:31] VITALS: BP 100/65; PULSE 83; RESP 18; TEMP 36.7
[2023-08-11] MEDS: ENOXAPARIN 100 MG/ML INJ SUBCUT ×2 (00:31→10:45)
[2023-08-11] MEDS: IBUPROFEN 600 MG TABLET PO (05:29)
[2023-08-11 08:00] VITALS: BP 109/73; PULSE 78; RESP 16; TEMP 36.5; O2SAT 97
--- NOTE | 2023-08-11 08:18 | P.DS_ITS ---
DS: Providers Provider Date Seen: 08/11/23 Date of admission: 08/09/23 07:31 Primary care physician: Marybeth Andrew MD Admitting Clinician: Jasmin Barrow MD Attending Physician on discharge: Melissa Hinton APRN, ERICA DS: Diagnosis Discharge Diagnosis (1) care following vaginal delivery: Status: Acute (2) Hx of pulmonary embolus during : Status: Acute (3) Lactating mother: Status: Acute (4) Headache in : Status: Acute Exam Narrative: Exam Narrative: GENERAL APPEARANCE:? normal affect, alert, no distress MOOD:? appropriate CHEST:? clear to auscultation HEART:? regular rate and rhythm ABDOMEN:? soft, non-tender the uterine fundus is At Umbilicus, Midline and is appropriate for the stage of recovery. PERINEUM:? mild edema of the perineum, there is a Perineal Laceration,?vaginal, that is healing well. EXTREMITIES:? normal and no edema Const: Vital Signs, click to edit/add: Vital Signs - 24 hr 08/10/23 09:08 08/10/23 16:08 08/11/23 00:31 Temperature 98.1 F 97.9 F 98.0 F Pulse Rate [Pulse Oximeter] 73 80 83 Respiratory Rate 16 16 18 Blood Pressure [Le ft Arm] 107/68 98/63 100/65 Pulse Oximetry 97 97 Oxygen Delivery Me thod Room Air Room Air Room Air 08/11/23 08:00 Temperature 97.7 F Pulse Rate [Pulse Oximeter] 78 Respiratory Rate 16 Blood Pressure [Le ft Arm] 109/73 Pulse Oximetry 97 Oxygen Delivery Me thod Room Air Documenting provider has reviewed patient's vital signs: yes OB - DS: Summary Hospital Course Hospital Course: Gabrielle is a 28 y.o. G 2 P 2 who was admitted to [facility] for labor. ?She had a NVD that was uncomplicated. The patient feels well. ?The pain is well controlled with current medications. ?She has no new complaints. ?She is breast feeding and reports things are going well. the patient has done well.? Vitals have been stable.? She has remained afebrile.? Has a good appetite, is tolerating a general diet. ?She is voiding without difficulty.? She is passing gas and has not had a bowel movement.? She is ambulating and denies any dizziness.? Has small amount of rubra lochia. Problems: Hx of PE during plan: Discharge home with baby. Follow up in 2 weeks and 6 weeks. , may see if needed Hgb 11.1. Hx of Bilateral PE during this . Seeing hematology and they recommend continuation of therapeutic Lovenox 100mg BID until 6 weeks . Patient reports she has enough Lovenox at home for this. Peripartum Data Infant delivery method: Vaginal Laceration description: Vaginal - 1st Degree complications: none [place] Gender: Female Discharge Plan: Home Status at Discharge Functional status at discharge: independent ambulation Overall status at discharge: patient is progressing back to baseline Time Spent with Patient Time attestation: Total time spent providing and/or coordinating discharge services: Discharge Plan Discharge Disposition: Home, Self-Care Date of Admission: 08/09/23 07:31 Attending Provider on Discharge: Melissa Hinton Primary Care Provider: Marybeth Andrew Condition: Stable Anticipated Discharge Date/Time: 08/11/23 12:00 Discharge Medications: New acetaminophen 500 mg Tablet 1,000 mg PO Q6H PRNQty: 0 0RF docusate sodium 100 mg Capsule 100 mg PO DAILY Qty: 90 0RF ibuprofen 600 mg Tablet 600 mg PO Q6H PRNQty: 60 0RF Continued PNV #[id number] acid-omega3 30 mg iron-10 mg iron-1 mg capsule 1 cap PO DAILY hydrocortisone [Anusol-HC] 2.5 % cream with perineal applicator 1 applic MS BID-QID PRN (Reason: hemorrhoids) Qty: 30 0RF enoxaparin 100 mg/mL syringe 100 mg subcut Q12H Discharge Orders: Discharge Order (Routine); Ordered 08/11/23 Ordered By: Melissa Hinton Patient Education: OB Over the Counter Medication Information, OB Vaginal/Breast Feeding Additional Instructions: Discharge instructions were reviewed with the patient including signs and symptoms of infection and home going medications Nothing vaginally for 6 weeks: no tampons or intercourse Do not drive while taking narcotic pain medication(s) Off Work or School for 8 weeks 2-week visit: discuss feeding concerns, review control options and screen for anxiety/depression. 6-week visit for an annual exam. consultation services are available to all mothers and babies for the first year after delivery.? To make an appointment, please call [phone]. Activity Level: Activity as Tolerated Discharge Diet: Regular Follow Up Appointments: [facility] [Provider Group] Forms: [employer] Info Instructions
[2023-08-11] MEDS: DOCUSATE SODIUM 100 MG CAPSULE PO (08:58)
[2023-08-11] MEDS: METOCLOPRAMIDE 10 MG TABLET PO (08:58)
[2023-08-11] MEDS: ACETAMINOPHEN 500 MG TABLET 1000 MG PO (08:58)
== END 2023-08-11 11:30 | disposition home or self-care (01) | DRG 560 ==
LOC: OB OUT 10:57 → OB 08-10 09:11
PROVIDERS: Obstetrics & Gynecology; Admitting Provider Obstetrics & Gynecology; PCP Family Medicine; Visit Provider Obstetrics & Gynecology
DX: O60.14X0 Preterm labor third trimester with preterm delivery third trimester, not applicable or unspecified (principal); O70.0 First degree perineal laceration during delivery; O62.3 Precipitate labor; O88.812 Other embolism in pregnancy, second trimester; Z86.711 Personal history of pulmonary embolism; O71.7 Obstetric hematoma of pelvis; O34.83 Maternal care for other abnormalities of pelvic organs, third trimester; N83.291 Other ovarian cyst, right side; Z87.59 Personal history of other complications of pregnancy, childbirth and the puerperium; Z3A.36 36 weeks gestation of pregnancy; Z37.0 Single live birth
CPT/HCPCS: 36415; 80053; 81001; 81003; 84112; 85018; 85025; 85027; 85384; 85610; 85730; 86592; 86850; 86900; 86901; 86922; 87086; 87210; 88307; G0463; A9270; J1650; J7120

== ENCOUNTER 2023-08-18 10:00 | Emergency (ER) | payer BC, SELFPAY ==
[2023-08-18 10:03] VITALS: BP 104/72; PULSE 76; RESP 18; O2SAT 97; BMI 25.1
[2023-08-18 10:07] VITALS: TEMP 36.6
--- NOTE | 2023-08-18 10:22 | CRLHL7_ITS ---
For Patients: As a result of the Century Cures Act, medical imaging exams and procedure reports are released immediately into your electronic medical record. You may view this report before your referring provider. If you have questions, please contact your health care provider. INDICATION: bleeding, delivered 08/09/2023 COMPARISON: None. TECHNIQUE: Transabdominal: Rush-scale and color Doppler ultrasound of the uterus and ovaries from a transabdominal approach. FINDINGS: Reported last menstrual period: Not provided. The uterus is measures 13.9 x 6.8 x 7.7 cm. No uterine masses. Thickened heterogeneous avascular material in the mid and lower uterine segments measuring up to 2.4 centimeters. This is indistinguishable from the endometrium. The endometrium in the uterine fundus measures 0.4 centimeters. There is fluid within the upper endometrial canal. The right ovary measures 3.5 x 1.3 x 1.2 cm. Physiologic appearance without a dominant cystic lesion or solid ovarian / adnexal mass. There is normal arterial and venous color Doppler flow. The left ovary is not seen No free fluid. IMPRESSION: Findings suspicious for retained products of conception with heterogeneous endometrium or endometrial contents, despite lack of significant internal vascularity. Dictated by Melissa Hough MD @ 08/18/2023 11:13:04 AM (Electronically Signed)
--- NOTE | 2023-08-18 11:10 | ED_ITS ---
HPI - General Adult General Chief complaint: Vaginal Bleeding Stated complaint: Post Delivery OB leg US - cramping/bleeding Time Seen by Provider: 08/18/23 10:03 Source: patient Mode of arrival: ambulatory Limitations: no limitations History of Present Illness HPI narrative: 28-year-old female, 1 week presenting with increased vaginal bleeding and cramping. status post normal spontaneous vaginal delivery. Patient states that she has had in uneventful course except for yesterday when she felt that her bleeding was getting worse and she had increased abdominal cramping. She states that she will soak a panty liner every 3 hours. She is passing blood clots. She denies feeling dizzy or lightheaded. No chest pain or shortness of breath. She has no increased abdominal pain, just cramping. No diarrhea or urinary symptoms. No nausea or vomiting. Baby is doing well, mom is . She does have a history of PE during , she is currently on Lovenox. Related Data Home Medications ?Medication ?Instructions ?Recorded ?Confirmed vitamin#30 30 mg iron-10 1 cap PO DAILY 05/26/22 08/08/23 mg iron-folic acid 1 mg-omg3 capsule enoxaparin 100 mg/mL subcutaneous 100 mg subcut Q12H 06/08/23 08/08/23 syringe Previous Rx's ?Medication ?Instructions ?Recorded hydrocortisone 2.5 % topical cream 1 applic NH BID-QID PRN 01/26/23 with perineal applicator hemorrhoids #30 grams (Anusol-HC) acetaminophen 500 mg tablet 1,000 mg (2 x 500 mg) PO Q6H PRN 08/11/23 #0 tabs docusate sodium 100 mg capsule 100 mg PO DAILY #90 caps 08/11/23 ibuprofen 600 mg tablet 600 mg PO Q6H PRN #60 tabs 08/11/23 methylergonovine 0.2 mg tablet 0.2 mg PO QID 24 hours #4 tabs 08/18/23 Allergies Allergy/AdvReac Type Severity Reaction Status Date / Time No Known Allergies Allergy Unknown Verified 08/08/23 16:20 Review of Systems Status of ROS: Reports: 10 or more systems reviewed and unremarkable except as noted in History and below PFSH PFS Medical History labor ?O60.00 - labor without delivery, unspecified trimester (ICD-10) Low back pain ?M54.50 - Low back pain, unspecified (ICD-10) History of delivery ?Z87.51 - Personal history of pre-term labor (ICD-10) Obstetric vaginal laceration with second degree perineal laceration ?O70.1 - Second degree perineal laceration during delivery (ICD-10) Inflamed external hemorrhoid ?K64.4 - Residual hemorrhoidal skin tags (ICD-10) Chest wall pain ?R07.89 - Other chest pain (ICD-10) Surgical History History of third molar tooth extraction (2015) ?K08.409 - Partial loss of teeth, unspecified cause, unspecified class (ICD- 10) Family History Mother Hx of blood clots Family/Other Heart disease Breast cancer, Onset Age: 90 Paternal Grandmother Pulmonary hypertension Diabetes Paternal Grandfather Lung cancer Diabetes 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: , 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, 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 Very rare alcohol use Exercise 3 times a week, HIIT 30 minutes What is your current living situation?: I presently have a place to live Problems where you live: no known problems Problems where you live details: N/A In the past 12 months, utilities in danger of being shut off: no In past 12 months, lack of transportation kept you from medical appts, meetings, work, or getting things needed for daily living: no In the past 12 mos, have been you worried that your food would run out before you had money to buy more?: never true In the past 12 mos, the food you bought just didn't last and you didn't have money to buy more?: never true Smoking Status: Former smoker Do you use any of these nicotine containing products: None Second hand tobacco smoke exposure: No How often do you have a drink containing alcohol: never How often do you have six or more drinks on one occasion: Never AUDIT-C Alcohol total score: 0 Non-prescribed substance use: denies use How often does anyone, including family, friends and others, physically hurt you : never How often does anyone, including family, friends and others, insult or talk down to you: never How often does anyone, including family, friends and others, threaten you with harm: never How often does anyone, including family, friends and others, scream or curse at you: never Little interest or pleasure in doing things: not at all Feeling down, depressed, or hopeless: not at all service: No Exam Narrative: Exam Narrative: Well-nourished well-developed patient in no acute distress. Alert and oriented. Answers questions appropriately. Mood and affect are appropriate. Thoughts are goal oriented and rational. No tangential or magical thinking noted. Patient speaks in full sentences without needing to catch her breath. HEENT: Normocephalic atraumatic. Pupils are equally round reactive to light. Extraocular muscles are intact. Conjunctivae are moist without any icterus noted. Moist mucous membranes. Posterior pharynx is normal. Neck is soft. Cardiovascular: Heart is regular rate and rhythm S1 and S2 are present without any murmurs. Lungs: Clear to auscultation bilaterally no wheezes rhonchi or rales are appreciated. Patient takes deep breaths without any discomfort. Abdomen: Soft with normal bowel sounds. She does have mild uterine tenderness which is expected. Extremities: Bilateral lower extremities are without edema. Normal DP and PT pulses. Skin: Well perfused without any obvious rashes. Const: Vital Signs, click to edit/add: Vital Signs - 24 hr 08/18/23 10:03 08/18/23 10:07 Temperature 98 F Pulse Rate [Right Pulse Oximeter] 76 Respiratory Rate 18 Blood Pressure [Ri ght Upper Arm] 104/72 Pulse Oximetry 97 Oxygen Delivery Me thod Room Air Course Course ED Course: Blood work was done, was unremarkable. UA did have a significant amount of blood in it. Abdominal ultrasound reading mention concern for retained products of conception. I did consult with , who did come down to see the patient. Based on her evaluation she ordered Methylgonovine and cleared the patient for discharge. Vital Signs Vital signs: Initial Vital Signs Pulse Rate 76 08/18/23 10:03 Pulse Rhythm Regular 08/18/23 10:03 Pulse Strength 3+ Normal 08/18/23 10:03 Respiratory Rate 18 08/18/23 10:03 Blood Pressure 104/72 08/18/23 10:03 Blood Pressure Mean 82 08/18/23 10:03 Blood Pressure Position Sitting 08/18/23 10:03 Pulse Oximetry 97 08/18/23 10:03 Oxygen Delivery Method Room Air 08/18/23 10:03 Vital Signs Pulse Rate 76 08/18/23 10:03 Respiratory Rate 18 08/18/23 10:03 Blood Pressure 104/72 08/18/23 10:03 Pulse Oximetry 97 08/18/23 10:03 Oxygen Delivery Method Room Air 08/18/23 10:03 Temperature 98 F 08/18/23 10:07 Pulse Rate 76 08/18/23 10:03 Respiratory Rate 18 08/18/23 10:03 Blood Pressure 104/72 08/18/23 10:03 Pulse Oximetry 97 08/18/23 10:03 Oxygen Delivery Method Room Air 08/18/23 10:03 Medical Decision Making MDM Narrative Medical decision making narrative: 28-year-old female with bleeding treated per above. Follow-up with OBGYN. Lab Data Lab results reviewed: Yes I reviewed the patient's lab results Labs: Lab Results 08/18/23 08/18/23 Range/Units 10:57 Unknown WBC 4.20 L (4.50-11.00) K/uL RBC 4.59 (4.00-5.20) m/uL Hgb 13.0 (12.0-16.0) gm/dL Hct 41.5 (33.0-51.0) % MCV 90 (80-100) fL MCH 28 (26-34) pg MCHC 31 L (32-36) gm/dL RDW Coeff of Erasmo 13.4 (11.5-15.5) % Plt Count 240 (140-440) K/uL Neut % (Auto) 62.3 (42.0-72.0) % Lymph % (Auto) 26.9 (20-44) % Schuyler % (Auto) 8.6 (0.0-11.0) % Eos % (Auto) 1.0 (0.0-7.0) % Baso % (Auto) 0.7 (0.0-3.0) % Neut # (Auto) 2.60 (1.7-7.0) K/uL Lymph # (Auto) 1.10 (0.90-2.90) K/uL Schuyler # (Auto) 0.40 (0.00-0.90) K/UL Eos # (Auto) 0.00 (0.00-0.50) K/uL Baso # (Auto) 0.00 (0.00-0.30) K/uL Abs Immat Gran (auto) 0.00 (0.00-0.30) K/uL Imm/Tot Granulo (auto) 0.5 % Sodium 141 (135-149) mmol/L Potassium 4.0 (3.6-5.1) mmol/L Chloride 106 (96-114) mmol/L Carbon Dioxide 29 (20-32) mmol/L Anion Gap 6 L (7-15) mEq/L BUN 10 (5-24) mg/dL Creatinine 0.5 (0.5-1.5) mg/dL Estimated Creat Clear 165.81 Estimated GFR 133 ml/min Glucose 91 (60-115) mg/dL Calcium 9.3 (8.4-10.6) mg/dL Total Bilirubin 1.1 (0.1-1.5) mg/dL Direct Bilirubin 0.2 (0.0-0.5) mg/dL AST 27 (12-35) U/L ALT 27 (4-35) U/L Alkaline Phosphatase 85 (40-150) U/L C-Reactive Protein 0.7 (0.5-1.0) mg/dL Total Protein 7.1 (6.0-8.3) g/dL Albumin 4.4 (3.3-5.0) g/dL Urine Color Red A (Yellow) Urine Appearance Cloudy A (Clear) Urine pH 8.5 (5.0-8.5) Ur Specific Bath 1.015 (1.000-1.030) Urine Protein 3+ A (Negative) Urine Glucose (UA) Negative (Negative) Urine Ketones 1+ A (Negative) Urine Blood 3+ A (Negative) Urine Nitrite Negative (Negative) Urine Bilirubin 2+ A (Negative) Urine Urobilinogen 2.0 A (0.2-1.0) Ur Leukocyte Esterase 3+ A (Negative) Urine RBC >100 A (0-2) Urine WBC >100 A (0-5) Ur Squamous Epith Cells Few (None-Few) Urine Bacteria Few A (None) Imaging Data US - abdomen: Attestation: I have reviewed the pertinent imaging results. Radiologist's impression: Procedure(s): US pelvic TA complete Accession Number(s): [id number] cc: Marybeth Andrew M.D.; Dafne Mcnair M.D.~ For Patients: As a result of the Cures Act, medical imaging exams and procedure reports are released immediately into your electronic medical record. You may view this report before your referring provider. If you have questions, please contact your health care provider. INDICATION: bleeding, delivered 08/09/2023 COMPARISON: None. TECHNIQUE: Transabdominal: Rush-scale and color Doppler ultrasound of the uterus and ovaries from a transabdominal approach. FINDINGS: Reported last menstrual period: Not provided. The uterus is measures 13.9 x 6.8 x 7.7 cm. No uterine masses. Thickened heterogeneous avascular material in the mid and lower uterine segments measuring up to 2.4 centimeters. This is indistinguishable from the endometrium. The endometrium in the uterine fundus measures 0.4 centimeters. There is fluid within the upper endometrial canal. The right ovary measures 3.5 x 1.3 x 1.2 cm. Physiologic appearance without a dominant cystic lesion or solid ovarian / adnexal mass. There is normal arterial and venous color Doppler flow. The left ovary is not seen No free fluid. IMPRESSION: Findings suspicious for retained products of conception with heterogeneous endometrium or endometrial contents, despite lack of significant internal vascularity. Discharge Plan Discharge Clinical Impression: bleeding Patient Disposition: Home, Self-Care Condition: Stable Additional Instructions: Follow-up with OBGYN as recommended per OBGYN. Prescriptions: New methylergonovine 0.2 mg tablet 0.2 mg PO QID 1 Days Qty: 4 0RF No Action PNV #[id number] 30 mg iron-10 mg iron-1 mg capsule 1 cap PO DAILY hydrocortisone [Anusol-HC] 2.5 % cream with perineal applicator 1 applic NH BID-QID PRN (Reason: hemorrhoids) Qty: 30 0RF enoxaparin 100 mg/mL syringe 100 mg subcut Q12H acetaminophen 500 mg Tablet 1,000 mg PO Q6H PRNQty: 0 0RF docusate sodium 100 mg Capsule 100 mg PO DAILY Qty: 90 0RF ibuprofen 600 mg Tablet 600 mg PO Q6H PRNQty: 60 0RF Follow Up/Referrals: Marybeth Andrew MD [Primary Care Provider] - Stand Alone Forms: Kiip Info Instructions
[2023-08-18 11:13] LABS: Basophils Percent Auto 0.7 % (0.0-3.0); Hematocrit 41.5 % (33.0-51.0); Immature Granulocytes Pct Auto 0.5 %; Lymphocytes Percent Auto 26.9 % (20-44); Mean Corpuscular HGB Conc 31 gm/dL (32-36); Mean Corpuscular Hemoglobin 28 pg (26-34); Mean Corpuscular Volume 90 fL (80-100); Monocytes Percent Auto 8.6 % (0.0-11.0); Neutrophils Percent Auto 62.3 % (42.0-72.0); Platelet Count* 240 K/uL (140-440); RDW Coefficient of Variation % 13.4 % (11.5-15.5); Red Blood Count 4.59 m/uL (4.00-5.20)
[2023-08-18 11:17] LABS: Appearance Urine Cloudy (Clear); Bilirubin Urine 2+ (Negative); Blood Urine 3+ (Negative); Color Urine Red (Yellow); Glucose Urine Negative (Negative); Ketones Urine 1+ (Negative); Protein Urine 3+ (Negative); Specific Gravity Urine 1.015 (1.000-1.030); pH Urine 8.5 (5.0-8.5)
[2023-08-18 11:18] LABS: Bacteria Urine Few; Leukocyte Esterase Urine 3+ (Negative); Nitrite Urine Negative (Negative); RBC Urine >100 (0-2); Squamous Epithelial Cell Urine Few (None-Few); WBC Urine >100 (0-5)
--- OUTSIDE RECORDS SUMMARY | 2023-08-18 11:20 | XMS_ITS | Encounter Summary ---
Author Organization [facility] Address [address] [place] [address] Care Team Providers Care Lens Blocker Name Role Phone No Ref-Primary, Physician Primary Care Provider Oleg Aparicio PA-C Unavailable [phone] Ana Oreilly MD Unavailable [phone] Reason for Visit * Reason Onset Date Comments Call To Schedule Appointment 07/28/2023 Mariusz duque with Pt- per ptOleg advised to F/U one month after child is born. Will call back to schedule. Encounter Details Date Type Department Care Team (Late st Contact Info) Description 07/28/2023 Telephone [facility] [address] [place] [address] Resource, Ur Hemo Call To [...] Care Team (Late st Contact Info) Description 09/15/2023 2:30 PM CDT Office Visit [facility] [address] [place] [phone] Oleg Aparicio, PABrightC [address] [place], [place] [phone] documented as of this encounter Visit Diagnoses Not on filedocumented in this encounter Care Teams Lens Blocker Relationship Specialty Start Date End Date No Ref-Primary, Physician PCP - General 03/31/23 Oleg Aparicio, PALeeann [address] [place], [place] [phone] Assigned Cancer Care Provider 05/06/23 Ana Oreilly MD [address] [place], [place] [phone] Assigned OBGYN Provider 05/06/23 documented as of this encounter
--- OUTSIDE RECORDS SUMMARY | 2023-08-18 11:20 | XMS_ITS | Encounter Summary ---
Author Organization [facility] Address [address] [place] [address] Care Team Providers Care Picking Table Worker Name Role Phone No Ref-Primary, Physician Primary Care Provider Oleg Aparicio PA-C Unavailable [phone] Ana Oreilly MD Unavailable [phone] Encounter Details Date Type Department Care Team (Late st Contact Info) Description 08/04/2023 Telephone [facility] [address] [place] [address] Jeanette Truong MD [address] [place] [address] 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 Tobacco Use Types [...] lovenox. I reviewed with the provider the [facility] consult from 04/12/23 for this indication. At [...] something that we recommend as standardwithin our [facility] group at this time. I do not see an indication for transfer to [facility] care at this time, given distance from our hospital and concern for rapid progressive labor. Plan to manage as noted for in her 04/12/23 consultation as well. Jeanette Truong MD documented in this encounter Plan of Treatment Upcoming Encounters Date Type Department Care Team (Late st Contact Info) Description 09/15/2023 2:30 PM CDT Office Visit [facility] [address] [place] [phone] Oleg Aparicio PA-C Formerly named [facility] [place] [phone] documented as of this encounter Visit Diagnoses Diagnosis uterine contractions- Primary Threatened premature labor, unspecified as to episode of care documented in this encounter Care Teams Picking Table Worker Relationship Specialty Start Date End Date No Ref-Primary, Physician PCP - General 03/31/23 Oleg Aparicio PA-C [address] [place] [id number] Assigned Cancer Care Provider 05/06/23 Ana Oreilly MD [address] [place] [address] Assigned OBGYN Provider 05/06/23 documented as of this encounter
--- OUTSIDE RECORDS SUMMARY | 2023-08-18 11:20 | XMS_ITS | Encounter Summary ---
Author Organization [facility] Address [address] [facility] [place] [address] Care Team Providers Care Cyber Special Agent Name Role Phone No Ref-Primary, Physician Primary Care Provider Oleg Aparicio PA-C Unavailable [phone] Ana Oreilly MD Unavailable [phone] Encounter Details Date Type Department Care Team (Late st Contact Info) Description 08/04/2023 Orders Only [facility] [address] [place] [address] Oleg Aparicio PA-C [address] [place] [address] 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 Tobacco Use Types [...] from the original note were not included. [facility], [address], [place] [address] Main: [phone], Telephone Note: Patient: Gabrielle Mcmahon : 1995 Date of this note written: August 04, 2023 Received a call from Dr. Rajan Lantigua Clinical Dental Technician in [facility] about Gabrielle's status on her . In the past couple weeks, she has 2 incidents where she possibly has gone into labor and held her enoxaparin dosing as directed. On 07/15/2023, she was admitted after having some contraction at [facility] at around 32w5d. During this hospitalization, enoxaparin [...] bleeding event. Oleg Aparicio PA-C, MPAS Physician Stacker Straightener [facility]. documented in this encounter Plan of Treatment Upcoming Encounters Date Type Department Care Team (Late st Contact Info) Description 09/15/2023 2:30 PM CDT Office Visit [facility] [address] [place] [phone] Oleg Aparicio PA-C [address] [place] [address] documented as of this encounter Visit Diagnoses Not on filedocumented in this encounter Care Teams Cyber Special Agent Relationship Specialty Start Date End Date No Ref-Primary, Physician PCP - General 03/31/23 Oleg Aparicio PA-C [address] [place], [place] [phone] Assigned Cancer Care Provider 05/06/23 Ana Oreilly MD [address] [place], [place] [phone] Assigned OBGYN Provider 05/06/23 documented as of this encounter
--- OUTSIDE RECORDS SUMMARY | 2023-08-18 11:20 | XMS_ITS | Referral Summary ---
Author Organization [facility] Address [address] [place] [address] Care Team Providers Care Yard Assistant Name Role Phone No Ref-Primary, Physician Primary Care Provider Oleg Aparicio PA-C Unavailable [phone] Ana Oreilly MD Unavailable [phone] Encounters Date Type Department Care Team Description 08/04/2023 Orders Only [facility] [address] [place] [address] Oleg Aparicio PA-C 08/04/2023 Telephone [facility] [place] [address] [place], [place] [address] Jeanette Truong MD 07/28/2023 Telephone [facility] [address] [place] [address] Resource, [facility] Call To Schedule Appointment (Talked with Pt- per Oleg reddy advised to F/U one month after child is born. Will call back to schedule.) 07/15/2023 6:03 PM CDT - 07/18/2023 10:20 AM CDT Hospital Encounter [facility] [address] [place] [address] Moira Roa MD Discharge Disposition: Home or Self Care 07/15/2023 Telephone [facility] [address] [place] [address] Oleg Aparicio PA-C CONSENT (Called pt to receive verbal consent to fax to another health office on her care team. LVM to CB.) 07/04/2023 Travel 07/04/2023 2:30 PM CDT Office Visit [facility] [address] [place] [address] Oleg Aparicio PA-C Pulmonary embolism affecting in second trimester (Primary Dx); Family history of blood clots; 31 weeks gestation of 06/22/2023 2:00 PM CDT Lab [facility] [address] [place] [address] Pulmonary embolism affecting in second trimester 06/22/2023 MyC Medical Advice [facility] [address] [place] [address] Oleg Aparicio PA-C 06/21/2023 Travel 06/21/2023 10:00 AM CDT Office Visit [facility] Medicine [facility] [address] [place] [address] Ori Adame MD Encounter for ultrasound to check growth (Primary Dx) 06/21/2023 9:30 AM CDT - 06/21/2023 11:59 PM CDT Hospital Encounter [facility] Medicine [facility] [address] [place] [address] Ori Adame MD Encounter for ultrasound to check growth Discharge Disposition: Home or Self Care 05/31/2023 Travel 05/31/2023 11:30 AM CDT Office Visit [facility] Medicine [facility] [address] [place] [address] Ori Adame MD Encounter for ultrasound to check growth (Primary Dx) 05/31/2023 10:45 AM CDT - 05/31/2023 11:59 PM CDT Hospital Encounter [facility] [place] [address] [facility] [address] [address] [place] [address] Ori Adame MD Encounter for ultrasound to assess growth Discharge Disposition: Home or Self Care from [...] 07/15/2023 6:42 PM CDT Plan of Treatment Upcoming Encounters Date Type Department Care Team ([facility] st Contact Info) Description 09/15/2023 2:30 PM CDT Office Visit [facility] [address] [place] [address] Oleg Aparicio PA-C [address] [place] [address] Procedures Procedure Name Priority Date/Time Associated Diagnosis [...] CDT Pulmonary embolism affecting in second trimester [facility] US COMPREHENSIVE SINGLE F/U Routine 06/21/2023 10:50 AM CDT Encounter for ultrasound to check growth [facility] US COMPREHENSIVE SINGLE F/U Routine 05/31/2023 11:40 AM CDT Encounter for ultrasound to assess growth HIV 1&2 ANTIBODY (EXTERNAL RESULT) Routine 01/26/2023 [...] LAB - BLOOD ORDERABL ES LABORATORY [facility] [address] floor, [address] [place] [address], [place] [phone] * Rupture of Membranes by ROM Plus [...] BODY FLUIDS OR DERABLES Performing Organization Address City/[facility]/ZIP Co de Phone Number LABORATORY [facility] [address] 1st floor, [address] [address], [facility] [phone] * (ABNORMAL) Wet preparation (07/17/2023 6:52 PM [...] - MICRO GENERAL ORDERABLES Performing Organization Address City/[facility]/ZIP Co de Phone Number LABORATORY [facility] [address] floor, [address] [place] [address], [facility] [phone] * (ABNORMAL) CBC with platelets and differential [...] LAB - BLOOD ORDERABL ES LABORATORY [facility] [address] 1[address] floor, [address] [place] [address], [facility] [phone] * Adult Type and Screen (07/15/2023 9:31 PM CDT) ABO/RH(D) O POS 07/15/2023 7:26 PM CDT BLOOD BANK Antibody Screen Negative Negative 07/15/2023 7:26 PM CDT BLOOD BANK SPECIMEN EXPIRATION DATE [id number] 07/15/2023 7:26 PM CDT BLOOD BANK Blood STRUCTURE OF RIGHT UPPER LIMB / Unknown Venipuncture / Unknown 07/15/2023 9:31 PM CDT 07/15/2023 9:34 PM CDT Moira Roa MD LAB - BLOOD BANK MONISHA T ORDER BLOOD BANK [address] [place] [address], [facility] * (ABNORMAL) Creatinine (07/15/2023 9:31 PM CDT) Creatinine 0.47(L) 0.51 - 0.95 mg/dL 07/15/2023 9:55 PM CDT LABORATORY GFR Estimate >90 >60 mL/min/1.7 3m2 07/15/2023 9:55 PM CDT LABORATORY Blood STRUCTURE OF RIGHT UPPER LIMB / Unknown Venipuncture / Unknown 07/15/2023 9:31 PM CDT 07/15/2023 9:34 PM CDT Moira Roa MD LAB - BLOOD ORDERABL ES LABORATORY [facility] [address] 1[address] floor, [address] [place] [address], [place] [phone] * (ABNORMAL) UA with Microscopic reflex to Culture (07/15/2023 6:45 PM CDT) Color Urine Straw Colorless, Straw, Light Yellow, Yellow 07/15/2023 7:04 PM CDT LABORATORY Appearance Urine Clear Clear 07/15/19 7:04 PM CDT LABORATORY Glucose Urine Negative Negative mg/dL 07/15/2023 7:04 PM CDT LABORATORY Bilirubin Urine Negative Negative 7:04 PM CDT LABORATORY Ketones Urine 40(A) Negative mg/dL 07/15/2023 7:04 PM CDT LABORATORY Specific [place] Urine 1.009 1.003 - 1.035 07/15/2023 7:04 [...] LAB - URINE ORDERABL ES LABORATORY [facility] [address] 1[address] floor, [address] [place] [address], [facility] [phone] * Chlamydia trachomatis/Neisseria gonorrhoeae by PCR (07/15/2023 6:23 PM CDT) Chlamydia Trachomatis Negative Negative 07/16/2023 12:02 PM CDT [facility] Comment: Negative for C. trachomatis rRNA by rotary cutter mediated amplification. A negative result by rotary cutter mediated amplification does not preclude the presence of infection because results are dependent on proper and adequate collection, absence of inhibitors and sufficient rRNA to be detected. Neisseria gonorrhoeae Negative Negative 07/16/2023 12:02 PM CDT [facility] Comment:Negative for N. gono rrhoeae rRNA by rotary cutter mediated amplification. A negative result by rotary cutter mediated amplification does not preclude the presence of C. trachomatis infection because results are dependent on proper and adequate collection, absence of inhibitors and sufficient rRNA to be detected. Urine VOIDED URINE SPECIMEN / Unknown Non-blood Collection / Unknown 07/15/2023 6:23 PM CDT 07/15/2023 6:30 PM CDT Moira Roa MD LAB - MICRO GENERAL ORDERABLES [facility] Inf. Diseases Diag. Lab [address] [place] [address], [facility] * Group B Streptococcus (External [...] - BLOOD ORDERABL ES Performing Organization Address [facility]/ZIP Co de Phone Number [facility] Core Lab [address], [address] [place] [address] * [facility] Comprehensive Single F/U (06/21/2023 10:50 AM CDT) Only the most recent of2 [...] CDT ?Comp Follow Up ----- Pat. Name: YOON C[place] ? Study Date: ??06/21/2023 9:50am Pat. NO: ??[id number] ?Referring ??MD: TRISTA MELLO Site: ??[facility] ? Template Checker: Chanad Lazo RDMS : ??1995 ?Age: ?? 28 [...] 2 lb 12 ?oz EFW by ?Hadlock ([id number]) Head / Face / Neck Biometry: Pole Incisor Operator ? 4.9 ? mm CM ?5.5 ? mm ANATOMY ----- The following structures appear normal: Head / Neck ? Cranium. Head size. Head shape. Lateral ventricles. Midline falx. Cerebellum. Cisterna magna. Thalami. Face ? Lips. Profile. Nose. Heart / Thorax ?4-chamber view. RVOT view. LVOT view. 9-dzptpi-dncqqns view. ? Diaphragm. Abdomen ? Stomach. Kidneys. [...] 06/21/2023 Comp Follow Up ----- Pat. Name: YOON CLEVELAND Study Date: 06/21/2023 9:50am Pat. NO: [id number] Referring MD: TRISTA MELLO Site: [facility] Template Checker: Chanda aLzoMELLY : 1995 Age: 28 ----- INDICATION ----- [...] 2 lb 12 oz EFW by Hadlock ([id number]) Head / Face / Neck Biometry: Pole Incisor Operator 4.9 mm CM 5.5 mm ANATOMY ----- The following structures appear normal: Head / Neck Cranium. Head size. Head shape.Lateral ventricles. Midline falx. Cerebellum. Cisterna magna. Thalami. Face Lips. Profile. Nose. Heart / Thorax 4-chamber view. RVOT view. LVOT view.4-fykhra-cvdhruw view. Diaphragm. Abdomen Stomach. Kidneys. Bladder. Spine [...] fluid volume appeared normal. Ori Adame MD [facility] ORDERABL ES * HIV-1 Antibody (External Result) (01/26/2023) HIV 1&2 Antibody (External) Negative Nonreactive EXTERNAL LAB Patient Reported LAB - HIM EXTERNAL R ESULT EXTERNAL LAB External Lab from Last 3 Months or Most Recently Relevant to Health Maintenance Advance Directives For more information, please contact: [phone] * Full Code (Latest Code Status on File) Date Activated Date Inactivated Comments 07/15/2023 7:25 PM 07/18/2023 1:55 PM All basic an d advanced life-sustaining interventions are performed as appropriate Question Answer Comments Code status determined by: Discussion with patie nt/ legal decision maker Care Teams Yard Assistant Relationship Specialty Start Date End Date No Ref-Primary, Physician PCP - General 03/31/23 Oleg Aparicio, PA-C [facility] [place], [place] [address] Assigned Cancer Care Provider 05/06/23 Ana Oreilly MD [address] [facility] [address] [place] [address] Assigned OBGYN Provider 05/06/23
--- OUTSIDE RECORDS SUMMARY | 2023-08-18 11:20 | XMS_ITS | Encounter Summary ---
Author Organization [place] Address [address] 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 Diagnoses labor Sh Labor & Delivery [address] [id number] Referral ID Status Reason Start Date Expiration Date Visits Re quested Visits Authorized [id number] 1 1 Encounter Details Date Type Department Care Team (Latest Contact Info) Description 07/15/2023 6:03 PM CDT - 07/18/2023 10:20 AM CDT Hospital Encounter [facility] [address] [phone] Moira Roa MD [address] [id number] Discharge Disposition: Home or [...] Roa MD - 07/18/2023 10:20 AM CDT [facility] Discharge Summary Gabrielle Mcmahon Age: [age] year old Date of : 1995 Date of Admission: 07/15/2023 Date of Discharge:: 08/08/2023 Admitting Physician: 07/18/2023 10:20 AM Discharge Physician: Moira Roa MD Home clinic: [facility] Admission Diagnoses: at 33w1d who admitted [...] Brief History of Illness: Pt transferred from [facility] for threatened PTL at 32w5d. She [...] Where can you learn more? Go to [email or web address] Enter N531 in the search box to learn more about Learning About When to Call Your Doctor During (After 20 Weeks). Current as of: August 30, 2022 Content Version: 14.0 ?? [employer]. Care instructions adapted under license by your healthcare professional. If you have questions about a medical condition or this instruction, always ask your healthcare professional. [employer] disclaims any warranty or liability for your [...] Mcmahon : 1995 Admit date: 07/15/2023 Acct: [id number] Assessment/Plan: Gabrielle Mcmahon is a at 33w1d who admitted for threatened labor. Today is HD#4. Pt transferred here from an outside facility and is unassigned to [facility]. contractions - minimal cervical change during admission. - continues to have irregular and non painful cramping. - s/p Nifedipine course - s/p BMZ 07/14, 07/15 - UDip WNL. NG/CT neg - GBS negative - s/p NICU consult - Tracings reactive - Dispo: plan for discharge today with low threshold to return for any increased symptoms. 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. Hx of BL PE earlier this [...] cords Psych: mood appropriate FHT: tracings reactive Abernathy: irritable Labs/Imaging: Results for orders placed or [...] Mcmahon : 1995 Admit date: 07/15/2023 Acct: [id number] Assessment/Plan: Gabrielle Mcmahon is a at 33w0d who admitted for threatened labor. Today is HD#3. Pt transferred here from an outside facility and is unassigned to [facility]. contractions - No cervical change on last [...] Moira Roa MD David F. MD [facility] EVA Sanders PA 07/17/2023, 8:03 AM * Crissy Akins RN - 07/17/2023 12:00 AM CDT Pts GBS was collected at [place] on 07/14, pt received results via email [...] pending Urine GC pending GBS collected at [place] and pending. S/p NICU consult on 07/15/23 Hx of bilateral PE in this As outpatient, pt on lovenox 100 mg bid. Reordered for 1130am on 07/15 See hematology note for additional details. 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 Continue [...] not included. July 15, 2023 Gabrielle Mcmahon [id number] OB Admit History & Physical CC: contractions HPI: at 32w5d who was a transfer from [facility]. She has had adequate care up to this point. She was seen at her routine visit today where she shared with her provider that she was having on and off contractions over the last couple of weeks but increased frequency and pressure over the last couple of days. She was evaluated on labor and delivery in [place] and contractions were noted on NST. Transvaginal [...] and followed by hematology.Most recent encounter in [facility] on 06/1323. She has been followed by MFM for growth assessment. The last growth was on 06/20 at 18% with AC at 14%. They recommend growth every 4 weeks. 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 CV: Negative PULMONARY: Negative MUSCULOSKELETAL: Negative [...] Resource Strain: Low Risk (02/21/2022) Received from [facility] Overall Financial Resource Strain (CARDIA) Difficulty of Paying Living Expenses: Not hard at all Food Insecurity: No Food Insecurity (02/21/2022) Received from [facility] Hunger Vital Sign Worried About Running Out of Food in the Last Year: Never true Ran Out of Food in the Last Year: Never true Transportation Needs: No Transportation Needs (02/21/2022) Received from [facility] PRAPARE - Transportation Lack of Transportation (Medical): No Lack of Transportation (Non-Medical): No Physical Activity: Insufficiently Active (02/21/2022) Received from [facility] Exercise Vital Sign Days of Exercise per Week: 3 days Minutes of Exercise per Session: 20 min Stress: Stress Concern Present (02/21/2022) Received from [facility] [place] of Occupational Health - Occupational Stress Questionnaire Feeling of Stress : To some extent Social Connections: Unknown (08/26/2022) [facility] Social Connections Frequency of Communication with Friends and Family: Not on file Interpersonal Safety: Not At Risk (02/21/2022) Received from [facility] Humiliation, Afraid, Rape, and Kick questionnaire Fear of Current or Ex-Partner: No Emotionally Abused: No Physically Abused: No Sexually Abused: No Housing Stability: Low Risk (02/21/2022) Received from [facility] Housing Stability Vital Sign Unable to Pay [...] mg/dL Mucus Urine Present Abnormal /LPF Specific [place] Urine 1.009 RBC Urine <1 /HPF Blood [...] 26.00 kg/m?? FHT 140, mod joyce, reactive Abernathy: irregular contractions Alert Awake in NAD, very [...] pending Urine GC pending GBS collected at [place] and pending. Consider NICU consult tomorrow if applicable Hx of bilateral PE in this As outpatient, pt on lovenox 100 mg bid. Last dose at 0915 on 07/14. Will hold for tonight and if nolabor symptoms, plan to resume tomorrow morning. See hematology note for additional details. 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 Continue daily PNV Plan NST q shift and continuous monitoring if pt complaints of more that 5 contractions in an hour. Dispo; pt admitted to labor and delivery. Anticipate stay through the steroid window at minimum. 40 minutes spent on face to face time, documentation review, and h and p. Moira Roa MD MD Dept of WAITER/WAITRESS THIRD CLASS July 15, 2023 documented in this encounter Consult Notes * Alma Acosta, ECOSYSTEM ECOLOGY PROFESSOR HUMAN RESOURCES PROJECT MANAGER - 07/15/2023 8:57 PM CDTAssociated Order(s): NURSE PRACT IP CONSULT Images from the original note were not included. [facility] Neonatology Antepartum Counseling Consult: I was [...] lung development, nutrition, growth and development, and penitentiary outcomes. I also explained the basic criteria [...] doctors names if she comes back to [facility]. * Provider Notification - Crissy Akins [...] negative GBS result via email notification from [place]. * Provider Notification - Crissy Akins RN [...] feels crampy and slight pelvic pressure. At [place] she received 2 gr ampicillin at 1515. 30mg of Niphedipine at 1551, 1st dose of Beta at 1514 and an LR bolus of 1000cc [id number]. Cx seemed to space out after bolus. Pt has a hx of bilateral PE in . No diagnosis givenbut taking 100mg of lovenox BID and followed by Hem. She also had a wet prep done today 07/14 at ( [place] labor and delivery) and negative, Amniosure which was negative. FFN done and positive. US done as well for cervical length and 8mm 2, 80-3. GBS was colleted at [place] as well 07/14. Once pt here UA/UC [...] Description 09/15/2023 2:30 PM CDT Office Visit [facility] [address] [place] [address] Oleg Aparicio PA-C [address] [place] [address] documented as of this encounter Procedures Procedure [...] MD LAB - BLOOD ORDERABL ES LABORATORY [facility] [address] floor, [address] [place] [address], [facility] [phone] * Rupture of Membranes by ROM Plus (07/17/2023 6:52 PM CDT) Pathologist [facility] Rupture of Membranes by ROM Plus Negative [...] LAB - BODY FLUIDS OR DERABLES LABORATORY [facility] [address] 1[address] floor, [address] [place] [address], [facility] [phone] * (ABNORMAL) Wet preparation (07/17/2023 6:52 PM [...] MD LAB - MICRO GENERAL ORDERABLES LABORATORY [facility] [address], [address] [place] [address], [facility] [phone] * Adult Type and Screen (07/15/2023 9:31 PM CDT) ABO/RH(D) O POS 07/15/2023 7:26 PM CDT BLOOD BANK Antibody Screen Negative Negative 07/15/2023 7:26 PM CDT BLOOD BANK SPECIMEN EXPIRATION DATE [id number] 07/15/2023 7:26 PM CDT BLOOD BANK Blood STRUCTURE OF RIGHT UPPER LIMB / Unknown Venipuncture / Unknown 07/15/2023 9:31 PM CDT 07/15/2023 9:34 PM CDT Moira Roa MD LAB - BLOOD BANK MONISHA T ORDER Performing Organization Address City/[facility]/ZIP Co de Phone Number BLOOD BANK [address] [place] [address], [facility] * (ABNORMAL) CBC with platelets and [...] 31.5 - 36.5 g/dL 07/15/2023 9:37 PM [facility] RDW 13.2 10.0 - 15.0 % 07/15/2023 9:37 PM CDT LABORATORY Platelet Count 199 150 - 450 10e3/uL 07/15/2023 9:37 PM CDT LABORATORY % Neutrophils 92 % 07/15/2023 9:37 PM [facility] % Lymphocytes 6 % 07/15/2023 9:37 PM [facility] % Monocytes 1 % 07/15/2023 9:37 PM [facility] % Eosinophils 0 % 07/15/2023 9:37 PM [facility] % Basophils 0 % 07/15/2023 9:37 PM CDT LABORATORY % Immature Granulocytes 1 % 07/15/2023 9:37 PM [facility] NRBCs per 100 WBC 0 <1 /100 024 9:37 PM [facility] Absolute Neutrophils 9.7(H) 1.6 - 8.3 10e3/uL 07/15/2023 9:37 PM [facility] Absolute Lymphocytes 0.7(L) 0.8 - 5.3 10e3/uL 07/15/2023 9:37 PM [facility] Absolute Monocytes 0.1 0.0 - 1.3 10e3/uL 07/15/2023 9:37 PM [facility] Absolute Eosinophils 0.0 0.0 - 0.7 10e3/uL 07/15/2023 9:37 PM [facility] Absolute Basophils 0.0 0.0 - 0.2 10e3/uL 07/15/2023 9:37 PM [facility] Absolute Immature Granulocytes 0.1 <=0.4 10e3/uL 07/15/2023 9:37 PM [facility] Absolute NRBCs 0.0 10e3/uL 07/15/2023 9:37 PM [facility] Blood STRUCTURE OF RIGHT UPPER LIMB / Unknown Venipuncture / Unknown 07/15/2023 9:31 PM CDT 07/15/2023 9:34 PM CDT Moira Roa MD LAB - BLOOD ORDERABL ES LABORATORY [facility] [address], [address] [place] [address], [facility] [phone] * (ABNORMAL) Creatinine (07/15/2023 9:31 PM CDT) Creatinine 0.47(L) 0.51 - 0.95 mg/dL 07/15/2023 9:55 PM CDT LABORATORY GFR Estimate >90 >60 mL/min/1.7 3m2 07/15/2023 9:55 PM CDT LABORATORY Blood STRUCTURE OF RIGHT UPPER LIMB / Unknown Venipuncture / Unknown 07/15/2023 9:31 PM CDT 07/15/2023 9:34 PM CDT Moira Roa MD LAB - BLOOD ORDERABL ES LABORATORY [facility] [address], [address] [place] [address], [facility] [phone] * (ABNORMAL) UA with Microscopic reflex to Culture (07/15/2023 6:45 PM CDT) Color Urine Straw Colorless, Straw, Light Yellow, Yellow 07/15/2023 7:04 PM CDT LABORATORY Appearance Urine Clear Clear 07/15/19 7:04 PM CDT LABORATORY Glucose Urine Negative Negative mg/dL 07/15/2023 7:04 PM CDT LABORATORY Bilirubin Urine Negative Negative 7:04 PM CDT LABORATORY Ketones Urine 40(A) Negative mg/dL 07/15/2023 7:04 PM CDT LABORATORY Specific [place] Urine 1.009 1.003 - 1.035 07/15/2023 7:04 [...] MD LAB - URINE ORDERABL ES LABORATORY [facility] [address], [address] [place] [address], [facility] [phone] * Chlamydia trachomatis/Neisseria gonorrhoeae by PCR (07/15/2023 6:23 PM CDT) Pathologist [facility] Chlamydia Trachomatis Negative Negative 07/16/2023 12:02 PM CDT [facility] Comment: Negative for C. trachomatis rRNA by middleware architect mediated amplification. A negative result by middleware architect mediated amplification does not preclude the presence of infection because results are dependent on proper and adequate collection, absence of inhibitors and sufficient rRNA to be detected. Neisseria gonorrhoeae Negative Negative 07/16/2023 12:02 PM CDT [facility] Comment:Negative for N. gono rrhoeae rRNA by middleware architect mediated amplification. A negative result by middleware architect mediated amplification does not preclude the presence [...] [facility] Inf. Diseases Di[facility] Lab [address] [place] [address] * Group B Streptococcus (External Result) (07/15/2023) Pathologist [facility] Group B Streptococcus (External) Negative Negative EXTERNAL LAB Patient Reported LAB - HIM EXTERNAL R ESULT Performing Organization Address City/[facility]/ZIP Co de Phone Number EXTERNAL LAB External Lab * ABO & RH (External Result) (01/26/2023) Pathologist [facility] ABO (External) O EXTERNAL LAB Rh (External) POSITIVE EXTERNAL LAB Patient Reported LAB - HIM EXTERNAL R ESULT EXTERNAL LAB External Lab * HIV-1 Antibody (External Result) (01/26/2023) Pathologist [facility] HIV 1&2 Antibody (External) Negative Nonreactive EXTERNAL LAB Patient Reported LAB - HIM EXTERNAL R ESULT EXTERNAL LAB External Lab * Rubella Antibody IgG (External Result) (01/26/2023) Pathologist [facility] Rubella Antibody IgG (External) Immune Nonreactive EXTERNAL LAB Patient Reported LAB - HIM EXTERNAL R ESULT EXTERNAL LAB External Lab * Hepatitis B Surface Antigen (External Result) (01/26/2023) Hepatitis B Surface Antigen (External) Negative Nonreactive EXTERNAL LAB Patient Reported LAB - HIM EXTERNAL R ESULT EXTERNAL LAB External Lab documented in this [...] at 1923, Antepartum metoclopramide (REGLAN) injection 10 mg 10 [...] over 2 Minutes, Starting on Tue07/15/23 at 191, This [...] HOURS, First dose on 07/16/23 at 1200 1149 ($Given - Provider: Donita [...] Indications: Candidiasis 2013 ($Given - Provider: Crissy Akins, MAC) NIFEdipine (PROCARDIA) capsule 20 mg (CANCELED) 20 [...] mmHg., Antepartum 0405 ($Given - Provider: Crissy Akins, MAC)1005 ($Given - Provider: Donita Dye RN)1552 ($Given - Provider: Donita Dye, MAC)2157 ($Given - Provider: Crissy Akins RN) 0352 ($Given - Provider: Crissy Akins, MAC)1003 ($Given - Provider: Donita Dye, MAC) multivitamin [...] F (core); headaches., Starting on Tue07/15/23 at 192, Maximum acetaminophen dose from all sources = [...] PRN, Starting on Tue07/15/23 at 1925, Until 07/18/23 at 1350, Assessment: Patient does not need [...] Oral, AT BEDTIME PRN, constipation, Starting on 07/15/23 at 1922, Hold for loose stools., Antepartum documented in this encounter Care Teams Deburring And Tooling Machine Operator Relationship Specialty Start Date End Date No Ref-Primary, Physician PCP - General 03/31/23 Oleg Aparicio, PABrightC [address] [place] [address] Assigned Cancer Care Provider 05/06/23 Ana Oreilly MD [address] [facility] [address] [place] [address] Assigned OBGYN Provider 05/06/23 documented as of this encounter
--- OUTSIDE RECORDS SUMMARY | 2023-08-18 11:20 | XMS_ITS | Clinical Summary ---
Author Organization [place] Address [address] [facility] [place] [address] Care Team Providers Care Reproduction Machine Loader Name Role Phone No Ref-Primary, Physician Primary Care Provider Oleg Aparicio PA-C Unavailable [phone] Ana Oreilly MD Unavailable [phone] Allergies No known active allergies Medications [...] Department Care Team Description 08/04/2023 Orders Only [facility] [address] [place] [address] Oleg Aparicio PA-C 08/04/2023 Telephone [facility] [place] [address] [place] [address] Jeanette Truong MD 07/28/2023 Telephone [facility] [address] [place] [address] Jerry Louie Hemo Call To Schedule Appointment (Talked with Pt- per ptOleg advised to F/U one month after child is born. Will call back to schedule.) 07/15/2023 6:03 PM CDT - 07/18/2023 10:20 AM CDT Hospital Encounter [facility] [address] [place] [phone] Moira Roa MD Discharge Disposition: Home or Self Care 07/15/2023 Telephone [facility] [address] [place] [address] Oleg Aparicio PA-C CONSENT (Called pt to receive verbal consent to fax to another health office on her care team. LVM to CB.) 07/04/2023 2:30 PM CDT Office Visit [facility] [address] [place] [phone] Oleg Aparicio PA-C Pulmonary embolism affecting in second trimester (Primary Dx); Family history of blood clots; 31 weeks gestation of 07/04/2023 Travel 06/22/2023 2:00 PM CDT Lab [facility] [address] [place] [address] Pulmonary embolism affecting in second trimester 06/22/2023 MyC Medical Advice [facility] [address] [place] [address] Oleg Aparicio PA-C 06/21/2023 10:00 AM CDT Office Visit [facility] Maternal Medicine [facility] [address] [place] [address] Ori Adame MD Encounter for ultrasound to check growth (Primary Dx) 06/21/2023 9:30 AM CDT - 06/21/2023 11:59 PM CDT Hospital Encounter [facility] Maternal Medicine [facility] [address] [place] [address] Ori Adame MD Encounter for ultrasound to check growth Discharge Disposition: Home or Self Care 06/21/2023 Travel 05/31/2023 11:30 AM CDT Office Visit [facility] [place] [address] [place] [address] Ori Adame MD Encounter for ultrasound to check growth (Primary Dx) 05/31/2023 10:45 AM CDT - 05/31/2023 11:59 PM CDT Hospital Encounter [facility] Maternal Medicine [place] [address] [place] [address] Ori Adame MD Encounter for ultrasound to assess growth Discharge Disposition: Home or Self Care 05/31/2023 Travel from Last 3 Months Immunizations Name [...] Upcoming Encounters Date Type Department Care Team ([facility] st Contact Info) Description 09/15/2023 2:30 PM CDT Office Visit [facility] [address] [place] [phone] Oleg Aparicio PA-C [address] [place], [place] [address] Health Maintenance Due Date Last Done Comments [...] CDT Pulmonary embolism affecting in second trimester [facility] COMPREHENSIVE SINGLE F/U Routine 06/21/2023 10:50 AM CDT Encounter for ultrasound to check growth [facility] US COMPREHENSIVE SINGLE F/U Routine [...] Roa MD LAB - BLOOD ORDERABL ES [facility] [address] 1st floor, [address] [place] [address], [facility] [phone] * Rupture of Membranes by ROM Plus [...] LAB - BODY FLUIDS OR DERABLES [facility] [address] 1[address] floor, [address] [place] [address], [facility] [phone] * (ABNORMAL) Wet preparation (07/17/2023 6:52 PM [...] MD LAB - MICRO GENERAL ORDERABLES LABORATORY [facility] [address] 1st floor, [address] [place] [address], [facility] [phone] * (ABNORMAL) CBC with platelets and differential [...] MD LAB - BLOOD ORDERABL ES LABORATORY [facility] [address] 1st floor, [address] [place] [address], [facility] [phone] * Adult Type and Screen (07/15/2023 9:31 PM CDT) ABO/RH(D) O POS 07/15/2023 7:26 PM CDT BLOOD BANK Antibody Screen Negative Negative 07/15/2023 7:26 PM CDT BLOOD BANK SPECIMEN EXPIRATION DATE [id number] 07/15/2023 7:26 PM CDT BLOOD BANK Blood STRUCTURE OF RIGHT UPPER LIMB / Unknown Venipuncture / Unknown 07/15/2023 9:31 PM CDT 07/15/2023 9:34 PM CDT Moira Roa MD LAB - BLOOD BANK MONISHA T ORDER Performing Organization Address City/[facility]/ZIP Co de Phone Number BLOOD BANK [address] [place] [address], [facility] * (ABNORMAL) Creatinine (07/15/2023 9:31 PM CDT) Creatinine 0.47(L) 0.51 - 0.95 mg/dL 07/15/2023 9:55 PM CDT LABORATORY GFR Estimate >90 >60 mL/min/1.7 3m2 07/15/2023 9:55 PM CDT LABORATORY Blood STRUCTURE OF RIGHT UPPER LIMB / Unknown Venipuncture / Unknown 07/15/2023 9:31 PM CDT 07/15/2023 9:34 PM CDT Moira Roa MD LAB - BLOOD ORDERABL ES LABORATORY [facility] [address] 1[address] floor, [address] [place] [address], [facility] [phone] * (ABNORMAL) UA with Microscopic reflex to Culture (07/15/2023 6:45 PM CDT) Color Urine Straw Colorless, Straw, Light Yellow, Yellow 07/15/2023 7:04 PM CDT LABORATORY Appearance Urine Clear Clear 07/15/19 7:04 PM CDT LABORATORY Glucose Urine Negative Negative mg/dL 07/15/2023 7:04 PM CDT LABORATORY Bilirubin Urine Negative Negative 7:04 PM CDT LABORATORY Ketones Urine 40(A) Negative mg/dL 07/15/2023 7:04 PM CDT LABORATORY Specific [place] Urine 1.009 1.003 - 1.035 07/15/2023 7:04 [...] MD LAB - URINE ORDERABL ES LABORATORY [facility] [address] 1st floor, [address] [place] [address], [place] [phone] * Chlamydia trachomatis/Neisseria gonorrhoeae by PCR (07/15/2023 6:23 PM CDT) Chlamydia Trachomatis Negative Negative 07/16/2023 12:02 PM CDT [facility] Comment: Negative for C. trachomatis rRNA by saturation equipment operator mediated amplification. A negative result by saturation equipment operator mediated amplification does not preclude the presence of infection because results are dependent on proper and adequate collection, absence of inhibitors and sufficient rRNA to be detected. Neisseria gonorrhoeae Negative Negative 07/16/2023 12:02 PM CDT [facility] Comment:Negative for N. gono rrhoeae rRNA by saturation equipment operator mediated amplification. A negative result by saturation equipment operator mediated amplification does not preclude the presence of C. trachomatis infection because results are dependent on proper and adequate collection, absence of inhibitors and sufficient rRNA to be detected. Urine VOIDED URINE SPECIMEN / Unknown Non-blood Collection / Unknown 07/15/2023 6:23 PM CDT 07/15/2023 6:30 PM CDT Moira Roa MD LAB - MICRO GENERAL ORDERABLES [facility] Inf. Diseases Diag. Lab [address] [place] [address] * Group B Streptococcus (External Result) (07/15/2023) [facility] Group B Streptococcus (External) Negative Negative EXTERNAL LAB Patient Reported LAB - HIM EXTERNAL R ESULT EXTERNAL LAB External Lab * Low Molecular Weight Heparin Anti Xa Level (06/22/2023 1:58 PM CDT) [facility] Anti Xa Low Molecular Weight 0.58 For [...] LAB - BLOOD ORDERABL ES [facility] LAB[facility]ATORY [facility] [place] [facility] Lab [address] [facility] [address] [facility], [address] [place] [address], [facility] * [facility] Comprehensive Single F/U (06/21/2023 10:50 AM CDT) [...] ? Study Date: ??06/21/2023 9:50am Pat. NO: ??[id number] ?Referring ??MD: RTISTA MELLO Site: ??[facility] ? [place] Administrator: Chanda Lazo [facility] : ??1995 ?Age: ?? 28 [...] 2 lb 12 ?oz EFW by ?Hadlock ([id number]) Head / Face / Neck Biometry: Life Insurance Sales ? 4.9 ? mm CM ?5.5 ? mm ANATOMY ----- The following structures appear normal: Head / Neck ? Cranium. Head size. Head shape. Lateral ventricles. Midline falx. Cerebellum. Cisterna magna. Thalami. Face ? Lips. Profile. Nose. Heart / Thorax ?4-chamber view. RVOT view. LVOT view. 5-ktywsu-cdkayqm view. ? Diaphragm. Abdomen ? Stomach. Kidneys. [...] [place] Study Date: 06/21/2023 9:50am Pat. NO: [id number] Referring MD: TRISTA MELLO Site: [facility] [place] Administrator: Chanda Lazo RDMS : 1995 Age: 28 ----- INDICATION ----- Reevaluate growth. METHOD ----- Transabdominal ultrasound examination. View: Sufficient ----- Barnett . Number of fetuses: 1 DATING ----- DateDetailsGest. age GALA LMP w + 2 d 09/04/2023 Prior assessment 01/26/2023 GA: 8 w +0 d28 w + 6 d 09/07/2023 U/S 4/30/2024based upon AC, BPD, Femur, HC28 w + [...] (lb,oz) 2 lb 12 oz EFW by Lilianlock ([id number]-[id number]-FL) Head / Face / Neck Biometry: Life Insurance Sales 4.9 mm CM 5.5 mm ANATOMY ----- The following structures appear normal: Head / Neck Cranium. Head size. Head shape.Lateral ventricles. Midline falx. Cerebellum. Cisterna magna. Thalami. Face Lips. Profile. Nose. Heart / Thorax 4-chamber view. RVOT view. LVOT view.7-yqimij-qhcbvet view. Diaphragm. Abdomen Stomach. Kidneys. Bladder. Spine [...] volume appeared normal. Ori Adame MD [facility] US ORDERABL ES * HIV-1 Antibody (External Result) (01/26/2023) HIV 1&2 Antibody (External) Negative Nonreactive EXTERNAL LAB Patient Reported LAB - HIM EXTERNAL R ESULT EXTERNAL LAB External Lab from Last 3 Months or Most Recently Relevant to Health Maintenance Advance Directives For more information, please contact: [phone] * Full Code (Latest Code Status on File) Date Activated Date Inactivated Comments 07/15/2023 7:25 PM 07/18/2023 1:55 PM All basic an d advanced life-sustaining interventions are performed as appropriate Question Answer Comments Code status determined by: Discussion with parase nt/ legal decision maker Care Teams Reproduction Machine Loader Relationship Specialty Start Date End Date No Ref-Primary, Physician PCP - General 03/31/23 Oleg Aparicio, RUPAL [facility] [address] [place], [place] [address] Assigned Cancer Care Provider 05/06/23 Ana Oreilly MD [address] [address] [place] [address] Assigned OBGYN Provider 05/06/23
--- OUTSIDE RECORDS SUMMARY | 2023-08-18 11:20 | XMS_ITS | Continuity of Care Document ---
Author Organization [facility] Address [address] [place] [address] Phone Care Team Providers Care Coal Shooter Name Role Phone Moira Roa MD Unavailable [...] [address], [place], [place], [id number] , [place] tel: [phone] [facility] No Information 4 Crispin Pizarro. [address], [address], [place], [address], [place]. tel: [phone] Subsequent Hospital Care MDM Straightforward Or LOW 25 MIN [facility], [address], [place], [place], [id number] , [place] tel: [phone] [facility] IP No Information 4 Soledad Valentin. [address], [address], [place], [address], [place]. tel: [phone] Initial Hospital Inpatient Or Observation Moderate MDM 55min [facility], [address], [place], [place], [id number] , [place] tel: [phone] [facility] IP labor without delivery, third trimesterPersona l history of pre-term laborInfection of other part of genital tract in , third trimesterPersona l history of pulmonary [id number] weeks gestation of pregnancyStrepto coccus B carrier state complicating [id number] weeks gestation of 4 [facility]. [address], [address], [place], [address], [place]. tel:[phone] Family History Family Member Type Diagnosis Age [...]
[2023-08-18 11:21] LABS: Slide Review Reflex No
--- OUTSIDE RECORDS SUMMARY | 2023-08-18 11:21 | XMS_ITS | Encounter Summary ---
Author Organization [facility] Address [address] [place] [address] Care Team Providers Care Production Team Member Name Role Phone No Ref-Primary, Physician Primary Care Provider Oleg Aparicio PA-C Unavailable [phone] Ana Oreilly MD Unavailable [phone] Reason for Referral * Diagnostic Imaging Ultrasound (Routine) - Pending Review Specialty Diagnoses / Procedures Referred By Contac t Referred To Contact Radiology. Diagnoses related condition, antepartum Procedures [facility] US Comprehensive Single F/U Ori Adame MD [address] [facility] [address] [address] Referral ID Status Reason Start Date Expiration Date V isits Requested Visits Authorized [id number] Pending Review 05/10/2023 05/09/2024 1 1 Reason for Visit * Diagnostic Imaging Ultrasound (Routine) - Pending Review Specialty Diagnoses / Procedures Referred By Contac t Referred To Contact Radiology. Diagnoses related condition, antepartum Procedures [facility] US Comprehensive Single F/U Ori Adame MD [address] [facility] [address] [address] Referral ID Status Reason Start Date Expiration Date V isits Requested Visits Authorized [id number] Pending Review 05/10/2023 05/09/2024 1 1 Encounter Details Date Type Department Care Team (Latest Contact Info) Description 05/31/2023 10:45 AM CDT - 05/31/2023 11:59 PM CDT Hospital Encounter [facility] [place] [address] [place] [address] Ori Adame MD [address] [place], [place] [address] Encounter for ultrasound to assess growth Discharge [...] Description 09/15/2023 2:30 PM CDT Office Visit [facility] [address] [place] [phone] Oleg Aparicio PA-C [address] [place], [place] [address] documented as of this encounter Procedures Procedure Name Priority Date/Time Associated Diagnosis Comments [facility] US COMPREHENSIVE SINGLE F/U Routine 05/31/2023 11:40 AM CDT Encounter for ultrasound to assess growth documented in this encounter Results * [facility] US Comprehensive Single F/U (05/31/2023 [...] ? Study Date: ??05/31/2023 10:49am Pat. NO: ??[id number] ?Referring ??: TRISTA MELLO Site: ??[facility] ? Rail Grinder: Chanda Lazo RDMS : ??1995 ?Age: ?? [...] lb 13 ? oz EFW by ?Hadlock ([id number]-FL) Head / Face / Neck Biometry: Senior Packaging Engineer ? 5.7 ? mm CM ?7.7 ? mm ANATOMY ----- The following structures appear normal: Head / Neck ? Cranium. Head size. Head shape. Lateral ventricles. Midline falx. Cavum septi pellucidi. Cerebellum. Cisterna magna. Thalami. Heart / Thorax ?4-chamber view. RVOT view. LVOT view. 2-vwkuhb-bgteyte view. ? Diaphragm. Abdomen ? Stomach. Kidneys. [...] [place] Study Date: 05/31/2023 10:49am Pat. NO: [id number] Referring MD: TRISTA MELLO Site: [facility] Rail Grinder: Chanda Lazo RDMS : 1995 Age: 28 [...] 1 lb 13 oz EFW by Hadlock ([id number]-FL) Head / Face / Neck Biometry: Senior Packaging Engineer 5.7 mm CM 7.7 mm ANATOMY ----- The following structures appear normal: Head / Neck Cranium. Head size. Head shape.Lateral ventricles. Midline falx. Cavum septi pellucidi. Cerebellum.Cisterna magna. Thalami. Heart / Thorax 4-chamber view. RVOT view. LVOT view.7-kaezfp-oersyrw view. Diaphragm. Abdomen Stomach. Kidneys. Bladder. Spine [...] growth documented in this encounter Care Teams Production Team Member Relationship Specialty Start Date End Date No Ref-Primary, Physician PCP - General 03/31/23 Oleg Aparicio, JULIAC [address] [place], [place] [address] Assigned Cancer Care Provider 05/06/23 Ana Oreilly MD [address] [place] [address] Assigned OBGYN Provider 05/06/23 documented as of this encounter
--- OUTSIDE RECORDS SUMMARY | 2023-08-18 11:21 | XMS_ITS ---
Author Organization [facility] Address [address] [place] [address] Care Team Providers Care Computing Machine Operator Name Role Phone Unavailable Unavailable Unavailable Surgery Details Not on file Complications Check Surgery Details section. Procedure Estimated Blood Loss Check Surgery Details section. Procedure Findings Check Surgery Details section. Procedure Specimens Taken Check Surgery Details section.
--- OUTSIDE RECORDS SUMMARY | 2023-08-18 11:21 | XMS_ITS | Encounter Summary ---
Author Organization [place] Address [address] [facility] [place] [address] Care Team Providers Care Simulation Tech Name Role Phone No Ref-Primary, Physician Primary Care Provider Oleg Aparicio PA-C Unavailable [phone] Ana Oreilly MD Unavailable [phone] Reason for Referral * Diagnostic Imaging Ultrasound (Routine) - Pending Review Specialty Diagnoses / Procedures Referred By Contsandy t Referred To Contact Radiology. Diagnoses Encounter for ultrasound to check growth Procedures [facility] US Comprehensive Single F/U Ori Adame MD [address] [place] [address] Referral ID Status Reason Start Date Expiration Date V isits Requested Visits Authorized [id number] Pending Review 05/31/2023 05/30/2024 1 1 Reason for Visit * Reason Comments Ultrasound RL2-reassess g rowth, EFW 15% Encounter Details Date Type Department Care Team (Late st Contact Info) Description 05/31/2023 11:30 AM CDT Office Visit [facility] [place] [address] [place] [address] Ori Adame MD [address] [place] [address] Encounter for ultrasound to check [...] details of today's US at the [facility]. Ori Adame MD Maternal- Medicine documented in [...] OB givenhistory of PE. SBAR given to [facility] (Dr. Adame), see their note in Epic. documented in this encounter Plan of Treatment Upcoming Encounters Date Type Department Care Team (Late st Contact Info) Description 09/15/2023 2:30 PM CDT Office Visit [facility] [address] [place] [phone] Oleg Aparicio PA-C [address] [place], [place] [address] documented as of this encounter Results * [facility] US Comprehensive Single F/U (06/21/2023 [...] ? Study Date: ??06/21/2023 9:50am Pat. NO: ??[id number] ?Referring ??: TRISTA MELLO Site: ??[facility] ? Computer Engineering Technologist: Chanda LazoMELLY : ??1995 ?Age: ?? 28 [...] 2 lb 12 ?oz EFW by ?Hadlock ([id number]-FL) Head / Face / Neck Biometry: Proof Press Operator ? 4.9 ? mm CM ?5.5 ? mm ANATOMY ----- The following structures appear normal: Head / Neck ? Cranium. Head size. Head shape. Lateral ventricles. Midline falx. Cerebellum. Cisterna magna. Thalami. Face ? Lips. Profile. Nose. Heart / Thorax ?4-chamber view. RVOT view. LVOT view. 0-zosxym-fbwoczf view. ? Diaphragm. Abdomen ? Stomach. Kidneys. [...] [place] Study Date: 06/21/2023 9:50am Pat. NO: [id number] Referring MD: TRISTA MELLO Site: [facility] Computer Engineering Technologist: Chanda Lazo RDMS : 1995 Age: 28 [...] 2 lb 12 oz EFW by Hadlock ([id number]-FL) Head / Face / Neck Biometry: Proof Press Operator 4.9 mm CM 5.5 mm ANATOMY ----- The following structures appear normal: Head / Neck Cranium. Head size. Head shape.Lateral ventricles. Midline falx. Cerebellum. Cisterna magna. Thalami. Face Lips. Profile. Nose. Heart / Thorax 4-chamber view. RVOT view. LVOT view.2-fgiijq-zkuhdgu view. Diaphragm. Abdomen Stomach. Kidneys. Bladder. Spine [...] fluid volume appeared normal. Ori Adame MD [facility] US ORDERABL ES documented in this encounter Visit Diagnoses Diagnosis Encounter for ultrasound to check growth- Primary Encounter for ultrasound to check growth documented in this encounter Care Teams Simulation Tech Relationship Specialty Start Date End Date No Ref-Primary, Physician PCP - General 03/31/23 Oleg Aparicio, JULIAC [address] [place] [address] [address] [place] [address] Assigned Cancer Care Provider 05/06/23 Ana Oreilly MD [address] [place] [address] [address] [place] [address] Assigned OBGYN Provider 05/06/23 documented as of this encounter
--- OUTSIDE RECORDS SUMMARY | 2023-08-18 11:21 | XMS_ITS | Clinical Summary ---
Author Organization [facility] Address [address] [place] [address] Care Team Providers Care Oyster Farmer Name Role Phone Elsewhere, Pcp Primary Care Provider Unavailabl e Source Comments Patient records contain information from all sites at [facility]. For routine questions regarding patient records, call [phone] during business hours, M-F 8:00 AM - 5:00 PM Central Time. Record requests for emergency care only can be directed to [phone] at any time.[facility] Allergies No known active allergies Medications Medication Sig Dispensed Refills Start Date End Date Status qtutafp-Ez-ohll-FA (VINATE ONE) 60 mg iron-1 mg per [...] How often do you attend chur or congregational services? More than 4 times per year [...] heating? Not hard at all 02/21/2022 [facility] [place] [facility] Occupat ional Health - Occupational Stress [...] Sex Assigned at Female 02/21/2022 11:00 AM TRASH TRUCK DRIVER Gender Identity Female 02/21/2022 11:00 AM TRASH TRUCK DRIVER Sexual Orientation Straight 02/21/2022 11 :00 AM TRASH TRUCK DRIVER Last Filed Vital Signs Vital Sign Reading Time Taken Comments Blood Pressure - - Pulse - - Temperature 36.6 ??C (97.9 ??F) 02/24/2022 12:[address] Respiratory Rate - - Oxygen Saturation - - Inhaled Oxygen Concentration - - Weight 72.4 kg (159 lb 9.8 oz) 02/24/2022 12:38 PM TRASH TRUCK DRIVER Height 169.7 cm (5' 6.81) 02/24/2022 12:[address] Body Mass Index 25.14 02/24/2022 12:38 PM TRASH TRUCK DRIVER Plan of Treatment Health Maintenance Due Date [...] age to complete this topic Care Teams Oyster Farmer Relationship Specialty Start Date End Date Elsewhere, Pcp PCP - General Internal Medicine 02/24/22
--- OUTSIDE RECORDS SUMMARY | 2023-08-18 11:21 | XMS_ITS | Encounter Summary ---
Author Organization [place] Address [address] [facility] [place] [address] Care Team Providers Care Logging Truck Driver Name Role Phone No Ref-Primary, Physician Primary Care Provider Oleg Aparicio PA-C Unavailable [phone] Ana Oreilly MD Unavailable [phone] Reason for Referral * Diagnostic Imaging Ultrasound (Routine) - Pending Review Specialty Diagnoses / Procedures Referred By Contsandy t Referred To Contact Radiology. Diagnoses related condition, antepartum Procedures MFM US Comprehensive Single F/U Ori Adame MD [address] [place] [address] Referral ID Status Reason Start Date Expiration Date V isits Requested Visits Authorized [id number] Pending Review 05/10/2023 05/09/2024 1 1 Reason for Visit * Reason Comments Ultrasound RL2/TV- Subopt anato my, hx PTD Encounter Details Date Type Department Care Team (Late st Contact Info) Description 05/10/2023 10:00 AM CDT Office Visit [facility] [place] [address] [place] [address] Ori Adame MD [address] [place] [address] Encounter for follow-up ultrasound of [...] for details of today's US at the [facility]. Ori Adame MD Maternal- Medicine documented in this encounter Nursing Notes * Alma Soriano RN - 05/10/2023 10:00 AM CDT Patient reports positive movement, denies pain, denies contractions/pre- term labor, leaking of fluid, or bleeding. Patient denies headache, visual changes, nausea/vomiting, epigastric pain related to preeclampsia. Education provided to patient on RL2/TV. SBAR given to [facility] MD, see their note in Epic. Alma Soriano RN documented in this encounter Plan of Treatment Upcoming Encounters Date Type Department Care Team (Late st Contact Info) Description 09/15/2023 2:30 PM CDT Office Visit [facility] Disorders [address] [place] [phone] Oleg Aparicio PA-C [address] [place], [place] [address] documented as of this encounter Results * [facility] Comprehensive Single F/U (05/31/2023 11:40 AM [...] ? Study Date: ??05/31/2023 10:49am Pat. NO: ??[id number] ?Referring ??: TRISTA MELLO Site: ??[facility] ? Nurse Staff: Chanda Lazo RDMS : ??1995 ?Age: ?? [...] lb 13 ? oz EFW by ?Hadlock ([id number]) Head / Face / Neck Biometry: Insurance Application Investigator ? 5.7 ? mm CM ?7.7 ? mm ANATOMY ----- The following structures appear normal: Head / Neck ? Cranium. Head size. Head shape. Lateral ventricles. Midline falx. Cavum septi pellucidi. Cerebellum. Cisterna magna. Thalami. Heart / Thorax ?4-chamber view. RVOT view. LVOT view. 5-xhkofo-jbvhuio view. ? Diaphragm. Abdomen ? Stomach. Kidneys. [...] [place] Study Date: 05/31/2023 10:49am Pat. NO: [id number] Referring MD: TRISTA MELLO Site: [facility] Nurse Staff: Chanda Lazo RDMS : 1995 Age: 28 [...] 1 lb 13 oz EFW by Hadlock ([id number]) Head / Face / Neck Biometry: Insurance Application Investigator 5.7 mm CM 7.7 mm ANATOMY ----- The following structures appear normal: Head / Neck Cranium. Head size. Head shape.Lateral ventricles. Midline falx. Cavum septi pellucidi. Cerebellum.Cisterna magna. Thalami. Heart / Thorax 4-chamber view. RVOT view. LVOT view.3-wtxhbu-tdkpmlw view. Diaphragm. Abdomen Stomach. Kidneys. Bladder. Spine [...] volume appeared normal. Ori Adame MD IMG [facility] US ORDERABL ES documented in this encounter Visit Diagnoses Diagnosis Encounter for follow-up ultrasound of anatomy- Primary History of delivery, currently with history of pre-term labor Encounter for ultrasound to assess growth Encounter for ultrasound to assess growth documented in this encounter Care Teams Logging Truck Driver Relationship Specialty Start Date End Date No Ref-Primary, Physician PCP - General 03/31/23 Oleg Aparicio, JULIAC [facility] [address] [place], [place] [address] Assigned Cancer Care Provider 05/06/23 Ana Oreilly MD [address] [facility] [address] [place], [place] [address] Assigned OBGYN Provider 05/06/23 documented as of this encounter
--- OUTSIDE RECORDS SUMMARY | 2023-08-18 11:21 | XMS_ITS | Encounter Summary ---
Author Organization [place] Address [address] [place] [address]. [place] [address] Care Team Providers Care Tip Finisher Name Role Phone No Ref-Primary, Physician Primary Care Provider Oleg Aparicio PA-C Unavailable [phone] Ana Oreilly MD Unavailable [phone] Encounter Details Date Type Department Care [...] Description 09/15/2023 2:30 PM CDT Office Visit [facility] [address] [place] [address] Oleg Aparicio PA-C [address] [place] [address] documented as of this encounter Visit Diagnoses Not on filedocumented in this encounter Care Teams Tip Finisher Relationship Specialty Start Date End Date No Ref-Primary, Physician PCP - General 03/31/23 Oleg Aparicio PA-C [address] [place] [address] [address] [place] [address] Assigned Cancer Care Provider 05/06/23 Ana Oreilly MD [address] [facility] [address] [place] [address] Assigned OBGYN Provider 05/06/23 documented as of this encounter
--- OUTSIDE RECORDS SUMMARY | 2023-08-18 11:21 | XMS_ITS | Encounter Summary ---
Author Organization [place] Address [address] [place] [address]. [place] [address] Care Team Providers Care Pals Specialist Name Role Phone No Ref-Primary, Physician Primary Care Provider Oleg Aparicio PA-C Unavailable [phone] Ana Oreilly MD Unavailable [phone] Encounter Details Date Type Department Care [...] Description 09/15/2023 2:30 PM CDT Office Visit [facility] [address] [place] [address] Oleg Aparicio PA-C [address] [place] [address] documented as of this encounter Visit Diagnoses Not on filedocumented in this encounter Care Teams Pals Specialist Relationship Specialty Start Date End Date No Ref-Primary, Physician PCP - General 03/31/23 Oleg Aparicio PA-C [address] [place] [address] [address] [place] [address] Assigned Cancer Care Provider 05/06/23 Ana Oreilly MD [address] [facility] [address] [place] [address] Assigned OBGYN Provider 05/06/23 documented as of this encounter
--- OUTSIDE RECORDS SUMMARY | 2023-08-18 11:21 | XMS_ITS | Encounter Summary ---
Author Organization [place] Address [address] [facility] [place] [address] Care Team Providers Care Rn Acls Name Role Phone No Ref-Primary, Physician Primary Care Provider Oleg Aparicio PA-C Unavailable [phone] Ana Oreilly MD Unavailable [phone] Reason for Visit * Reason Comments Ultrasound RL2-EFW14% Encounter Details Date Type Department Care Team (Late st Contact Info) Description 06/21/2023 10:00 AM CDT Office Visit [facility] [place] [address] [facility] [address] [place] [address] Ori Adame MD [address] [place] [address] Encounter for ultrasound to check [...] for details of today's US at the [facility]. Ori Adame MD Maternal- Medicine documented in this encounter Nursing Notes * Mara Cheung RN - 06/21/2023 10:00 AM CDT Patient reports good movement, reports [place] contractions, denies leaking of fluid, or bleeding. SBAR given to [facility] MD, see their note in Epic. documented in this encounter Plan of Treatment Upcoming Encounters Date Type Department Care Team (Late st Contact Info) Description 09/15/2023 2:30 PM CDT Office Visit [facility] for Bleeding and Clotting Disorders [address] [place] [address] Oleg Aparicio PA-C [address] [place], [place] [address] documented as of this encounter Visit Diagnoses Diagnosis Encounter for ultrasound to check growth- Primary documented in this encounter Care Teams Rn Acls Relationship Specialty Start Date End Date No Ref-Primary, Physician PCP - General 03/31/23 Oleg Aparicio PA-C [address] [place], [place] [address] Assigned Cancer Care Provider 05/06/23 Ana Oreilly MD [address] [place], [place] [address] Assigned OBGYN Provider 05/06/23 documented as of this encounter
--- OUTSIDE RECORDS SUMMARY | 2023-08-18 11:21 | XMS_ITS | Clinical Summary ---
Author Organization [facility] Address [place], [place] [address] Care Team Providers Care Hardware Installation Coordinator Name Role Phone Marybeth Andrew MD Primary Care Provider + Allergies No known active allergies Medications No known medications Encounters Date Type Department Care Team Description 08/09/2023 Lab Requisition [facility] [phone] Jasmin Barrow MD from Last 3 Months [...] Procedure Name Priority Date/Time Associated Diagnosis Comments LAB TRACKING EVENT Routine 08/09/2023 11 :19 AM CDT PATH TISSUE EXAM PLACENTA Routine 08/09/2023 11:19 AM CDT TRUCK ENGINE TECHNICIAN THIN PREP PAP SCREEN IMAGED Routine 12/11/2020 2:40 PM CDT from Last 3 Months or Most Recently Relevant to Health Maintenance Results * LAB TRACKING EVENT (08/09/2023 11:19 AM CDT) Other (Other) Client Collect / Unknown 08/09/2023 11:19 AM CDT 08/09/2023 10:20 PM CDT Jasmin Barrow MD LAB BILL O NLY [facility] [address] [place] [id number], * PATH TISSUE EXAM PLACENTA (08/09/2023 11:19 AM CDT) Case Report Pathology Report ?Case: [id number] ? Authorizing Provider: ??Jasmin Barrow ??Collected: ? 08/09/2023 1119 ? MD Daja ? Ordering Location: ? [facility] ?Received: ?08/10/2023 0727 ? Pathologist: ? Dorothy Francis MD ? Specimen: ?Placenta ? 08/11/2023 12:40 PM CDT [facility] Final Diagnosis A) PLACENTA, VAGINAL DELIVERY: 1. Third trimester rojas placenta with the following characteristics: ? a. Weight: 372 grams (36 week 10-90th percentile weight range, 372 - 542 grams) ? b. Membranes/ surface: ?Negative for chorioamnionitis ? c. Umbilical cord: ?Three vessel cord ?Negative for funisitis ? d. Disc/Villi: ?Mildly accelerated villous maturation ?Mildly prominent septal cysts/fibrinoid ?Negative for villitis ?Placental disc without infarcts ? e. Decidua/basal plate: ?Subtle decidual arteriopathy ? Focal incomplete spiral artery remodeling ? Focal persistent intravascular trophoblast 2. ??See comment 08/11/2023 12:40 PM CDT [facility] Comment While subtle, the low normal range placental weight, mildly accelerated villous maturation, mildly prominent septal cyst/fibrinoid, and subtle decidual arteriopathy are consistent with some degree of maternal vascular malperfusion of the placental bed. Such findings are usually associated with maternal hypertension, but can also be associated with maternal diabetes, collagen vascular disease, suboptimal placental position/implantat ion (including uterine abnormalities such as fibroids) or other etiology affecting the maternal vessels and/or perfusion of the placenta. 08/11/2023 12:40 PM CDT [facility] Clinical Information Maternal history of bilateral pulmonary embolism. Liveborn vaginal delivery 36-2/7 weeks, 2800 g female infant. G2, P2. 08/11/2023 12:40 PM CDT [facility] Gross Description A) Received fresh labeled with the patient's name and date of , is a 372 g, 18.5 x 18 x 2.3 cm rojas placenta with attached pink-sellers membranes and a 36 cm long, 1.2 cm in average diameter trivascular umbilical cord. ??The membranes exhibit 90% circumvallate insertion (10% of the surface area) and 10% marginal insertion. ??The umbilical cord centrally inserts into the surface of centimeters from the closest disc edge. ??The surface is blue-sellers, smooth and glistening with a uniform vascular pattern. ??The maternal surface is red-pink, intact with variably sized cotyledons. ??Blood clot is loosely adherent to less than 5% of the maternal surface. ??No lesion is identified. Electric Utility Lineworker sections: 1. ??Umbilical cord and membranes with insertion 2. ??Full-thickness with umbilical cord insertion 3-4. ??2 full-thickness 5. ??Maternal surface blood clot Placed in formalin at 9:55 AM on 08/10/2023 DPL 08/10/2023 08/11/2023 12:40 PM CDT [facility] Microscopic Description The final diagnosis is based on microscopic examination of appropriate sections of all specimens. 08/11/2023 12:40 PM CDT [facility] Additional Information Interpreted at [facility], Central Laboratory - [address] [place] [address] [address] [place] [address] 08/11/2023 12:40 PM CDT [facility] Tissue SPECIMEN FROM PLACENTA / Unknown 08/09/2023 11:19 AM CDT 08/10/2023 7:27 AM CDT Jasmin Barrow MD PATHOLOGY/ CYTOLOGY [facility] [address] [place] [address], * TRUCK ENGINE TECHNICIAN THIN PREP PAP SCREEN IMAGED (12/11/2020 2:40 PM CDT) Case Report Gynecologic Cytology Report ? Case: [id number] ? Authorizing Provider: ??Elizabeth Philip ?Collected: ? 12/11/2020 1440 ? MD Ofelia ? Ordering Location: ? [facility] ?Received: ?12/15/2020 0858 ? First Screen: ?[place], Harriet ? Specimen: ?TRUCK ENGINE TECHNICIAN ThinPrep Vial Screening, Cervical/Vaginal ? 12/26/2020 2:03 PM CDT [facility]-C ENTRAL LABORATORY INTERPRETATION/ RESULT NEGATIVE FOR INTRAEPITHELIAL LESION OR MALIGNANCY (NIL) (none) 12/26/2020 2:03 PM CDT [facility] LAB[facility]ATORY IMEN ADEQUACY Satisfactory for evaluation No endocervical component seen 12/26/2020 2:03 PM CDT [facility] LAB[facility]AT[facility] HPV REQUEST HPV if ASCUS 12/26/2020 2:03 PM CDT [facility] Date of LMP 11/04/2020 12/26/2020 2:03 PM CDT [facility] Menstrual Status 12/26/2020 2:03 PM CDT [facility] Additional Information 12/26/2020 2:03 PM CDT [facility] Comment: Interpreted at [facility], Central Laboratory - [address] [place] [address] [place] [address] Automated Review Successful 12/26/2020 2:03 PM CDT [facility] Comment:Specimen processed s uccessfully by automated snack stewardess device, ThinPrep Imaging System, [employer] Note The pap test is a [...] and malignant lesions. 12/26/2020 2:03 PM CDT [facility] Other (Cervical/Vagina l) 12/11/2020 2:40 PM CDT 12/15/2020 8:58 AM CDT Elizabeth Philip MD PATHOLOGY/ CYTOLOGY [facility] [address] [place] [address], from Last 3 Months or Most Recently Relevant to Health Maintenance Care Teams Hardware Installation Coordinator Relationship Specialty Start Date End Date Marybeth Andrew MD [address] [place] [address] PCP - General Family Practice 08/20/22
--- OUTSIDE RECORDS SUMMARY | 2023-08-18 11:21 | XMS_ITS | Encounter Summary ---
Author Organization [place] Address [address] [place] [address] Care Team Providers Care Cinder Dump Crane Operator Name Role Phone No Ref-Primary, Physician Primary Care Provider Oleg Aparicio PA-C Unavailable [phone] Ana Oreilly MD Unavailable [phone] Reason for Referral * Diagnostic Imaging Ultrasound (Routine) - Pending Review Specialty Diagnoses / Procedures Referred By Contac t Referred To Contact Radiology. Diagnoses Encounter for ultrasound to check growth Procedures [facility] US Comprehensive Single F/U Ori Admae MD 606 [facility] [address] [address] Referral ID Status Reason Start Date Expiration Date V isits Requested Visits Authorized [id number] Pending Review 05/31/2023 05/30/2024 1 1 Reason for Visit * Diagnostic Imaging Ultrasound (Routine) - Pending Review Specialty Diagnoses / Procedures Referred By Contac t Referred To Contact Radiology. Diagnoses Encounter for ultrasound to check growth Procedures [facility] US Comprehensive Single F/U Ori Adame MD [address] [facility] [address] [address] Referral ID Status Reason Start Date Expiration Date V isits Requested Visits Authorized [id number] Pending Review 05/31/2023 05/30/2024 1 1 Encounter Details Date Type Department Care Team (Latest Contact Info) Description 06/21/2023 9:30 AM CDT - 06/21/2023 11:59 PM CDT Hospital Encounter [facility] [place] [address] [place] [address] Ori Adame MD [address] [place], [place] [address] Encounter for ultrasound to check growth Discharge [...] Description 09/15/2023 2:30 PM CDT Office Visit [facility] for Bleeding and Clotting Disorders [address] [place] [address] Oleg Aparicio PA-C [address] [place], [place] [address] documented as of this encounter Procedures Procedure Name Priority Date/Time Associated Diagnosis Comments [facility] US COMPREHENSIVE SINGLE F/U Routine 06/21/2023 10:50 AM CDT Encounter for ultrasound to check growth documented in this encounter Results * [facility] US Comprehensive Single F/U (06/21/2023 [...] ? Study Date: ??06/21/2023 9:50am Pat. NO: ??[id number] ?Referring ??: TRISTA MELLO Site: ??[facility] ? [employer] Manager: Chanda Lazo RDMS : ??1995 ?Age: ?? [...] 2 lb 12 ?oz EFW by ?Hadlock ([id number]) Head / Face / Neck Biometry: Printer Slotter Operator ? 4.9 ? mm CM ?5.5 ? mm ANATOMY ----- The following structures appear normal: Head / Neck ? Cranium. Head size. Head shape. Lateral ventricles. Midline falx. Cerebellum. Cisterna magna. Thalami. Face ? Lips. Profile. Nose. Heart / Thorax ?4-chamber view. RVOT view. LVOT view. 9-eqenxm-ktkgdtx view. ? Diaphragm. Abdomen ? Stomach. Kidneys. [...] [place] Study Date: 06/21/2023 9:50am Pat. NO: [id number] Referring MD: TRISTA MELLO Site: [facility] [employer] Manager: Chanda Lazo RDMS : 1995 Age: 28 [...] 2 lb 12 oz EFW by Hadlock ([id number]) Head / Face / Neck Biometry: Printer Slotter Operator 4.9 mm CM 5.5 mm ANATOMY ----- The following structures appear normal: Head / Neck Cranium. Head size. Head shape.Lateral ventricles. Midline falx. Cerebellum. Cisterna magna. Thalami. Face Lips. Profile. Nose. Heart / Thorax 4-chamber view. RVOT view. LVOT view.6-cqqkae-rgttshe view. Diaphragm. Abdomen Stomach. Kidneys. Bladder. Spine [...] fluid volume appeared normal. [facility] documented in this encounter Visit Diagnoses Diagnosis Encounter for ultrasound to check growth documented in this encounter Care Teams Cinder Dump Crane Operator Relationship Specialty Start Date End Date No Ref-Primary, Physician PCP - General 03/31/23 Oleg Aparicio PA-C [address] [place] [address] Assigned Cancer Care Provider 05/06/23 Ana Oreilly MD [address] [place] [address] Assigned OBGYN Provider 05/06/23 documented as of this encounter
--- OUTSIDE RECORDS SUMMARY | 2023-08-18 11:21 | XMS_ITS | Encounter Summary ---
Author Organization [place] Address [address] [place] [address] Care Team Providers Care Litigator Name Role Phone No Ref-Primary, Physician Primary Care Provider Oleg Aparicio PA-C Unavailable [phone] Ana Oreilly MD Unavailable [phone] Reason for Referral * Diagnostic Imaging Ultrasound (Routine) - Pending Review Specialty Diagnoses / Procedures Referred By Contac t Referred To Contact Radiology. Diagnoses Pulmonary embolism affecting in second trimester Procedures [facility] US Comprehensive Single F/U Ana Oreilly MD [address] [facility] [employer] [address] [address] Referral ID Status Reason Start Date Expiration Date V isits Requested Visits Authorized [id number] Pending Review 04/12/2023 04/11/2024 1 1 Reason for Visit * Diagnostic Imaging Ultrasound (Routine) - Pending Review Specialty Diagnoses / Procedures Referred By Contac t Referred To Contact Radiology. Diagnoses Pulmonary embolism affecting in second trimester Procedures [facility] US Comprehensive Single F/U Ana Oreilly MD [address] [place] [address] Referral ID Status Reason Start Date Expiration Date V isits Requested Visits Authorized [id number] Pending Review 04/12/2023 04/11/2024 1 1 Encounter Details Date Type Department Care Team (Latest Contact Info) Description 05/10/2023 9:28 AM CDT - 05/10/2023 11:59 PM CDT Hospital Encounter [facility] [address] [place] [phone] Ori Adame MD [address] [place], [place] [address] Pulmonary embolism affecting in second trimester Discharge [...] Description 09/15/2023 2:30 PM CDT Office Visit [facility] [address] [place] [address] Oleg Aparicio PA-C [address] [place], [place] [address] documented as of this encounter Procedures Procedure Name Priority Date/Time Associated Diagnosis Comments [facility] COMPREHENSIVE SINGLE F/U Routine 05/10/2023 10:08 AM CDT Pulmonary embolism affecting in second trimester documented in this encounter Results * [facility] Comprehensive Single F/U (05/10/2023 10:08 [...] ? Study Date: ??05/10/2023 9:30am [place]. NO: ??[id number] ?Referring ??: TRISTA MELLO Site: ??[facility] ? Marketing Data Specialist: Yamel Hill RDMS : ??1995 ?Age: ?? [...] 1 lb 2 ?oz EFW by ?Hadlock ([id number]) Head / Face / Neck Biometry: Custom Home Installer ? 6.2 ? mm CM ?3.8 ? mm Nasal bone ? 7.0 ? mm ANATOMY ----- The following structures appear normal: Head / Neck ? Cranium. Head size. Head shape. Lateral ventricles. Midline falx. Cavum septi pellucidi. Cerebellum. Cisterna magna. Thalami. Face ? Lips. Profile. Nose. Maxilla. Mandible. Heart / Thorax ?4-chamber view. RVOT view. LVOT view. Situs. 3-uojbqw-qqmvqyi view. ? Diaphragm. Abdomen ? Stomach. Kidneys. [...] [place] Study Date: 05/10/2023 9:30am [place]. NO: [id number] Referring MD: TRISTA MELLO Site: [facility] Marketing Data Specialist: Yamel Hill RDMS : 1995 Age: 27 [...] 1 lb 2 oz EFW by Hadlock ([id number]) Head / Face / Neck Biometry: Custom Home Installer 6.2 mm CM 3.8 mm Nasal bone 7.0 mm ANATOMY ----- The following structures appear normal: Head / Neck Cranium. Head size. Head shape.Lateral ventricles. Midline falx. Cavum septi pellucidi. Cerebellum.Cisterna magna. Thalami. Face Lips. Profile. Nose. Maxilla.Mandible. Heart / Thorax 4-chamber view. RVOT view. LVOT view.Situs. 7-krhqeg-nmepfkg view. Diaphragm. Abdomen Stomach. Kidneys. Bladder. Spine [...] 15%tile we will reassess growth at [facility] in 3weeks. Return to primary provider [...] with no funneling. Ana Oreilly MD [facility] US ORDERABLE S documented in this encounter Visit Diagnoses Diagnosis Pulmonary embolism affecting in second trimester documented in this encounter Care Teams Litigator Relationship Specialty Start Date End Date No Ref-Primary, Physician PCP - General 03/31/23 Oleg Aparicio, RUPAL [address] [place], [place] [address] Assigned Cancer Care Provider 05/06/23 Ana Oreilly MD [address] [place] [address] Assigned OBGYN Provider 05/06/23 documented as of this encounter
--- OUTSIDE RECORDS SUMMARY | 2023-08-18 11:21 | XMS_ITS | Encounter Summary ---
Author Organization [place] Address [address] [facility] [place] [address] Care Team Providers Care Diesel Engine Assembler Name Role Phone No Ref-Primary, Physician Primary Care Provider Oleg Aparicio PA-C Unavailable [phone] Ana Oreilly MD Unavailable [phone] Reason for Visit * Reason Comments Deep Vein Thrombosis Encounter Details Date Type Department Care Team (Late st Contact Info) Description 07/04/2023 2:30 PM CDT Office Visit [facility] [address] [place] [address] Oleg Aparicio PA-C [address] [place] [address] Pulmonary embolism affecting in second [...] included. [facility] [address] [place] [address] Main: [phone], Patient seen at: [facility] at [address] [place] [address] Outpatient Visit Note: Patient: Gabrielle Mcmahon : 1995 DEBORAH: July 04, 2023 Location of this travel writer at the time of this clinic visit was conducted: [facility]. Location of the patient at the time of this clinic visit was conducted: [facility]. Reason [...] up. She was last seen by this travel writer back on 04/28/2023. Thrombosis History Summary: [...] both lower extremities. 03/08/2023, she presented to [facility] emergency department with chest pain. [...] today, the emergency department physician did call [facility] and consult them about the [...] History: 04/28/2023, she established care with this travel writer and I determined that her pulmonary [...] and PmHx: All are reviewed by this travel writer today via electronic medical records Social [...] venous thromboembolism. Oleg Aparicio PA-C, MPAS Physician Coroner Technician [facility] for Bleeding and Clotting [...] Description 09/15/2023 2:30 PM CDT Office Visit [facility] [address] [place] [phone] Oleg Aparicio PA-C [address] [place] [address] Scheduled Orders Name Type Priority [...] incidental documented in this encounter Care Teams Diesel Engine Assembler Relationship Specialty Start Date End Date No Ref-Primary, Physician PCP - General 03/31/23 Oleg Aparicio PA-C [address] [place], [place] [address] Assigned Cancer Care Provider 05/06/23 Ana Oreilly MD [address] [place], [place] [address] Assigned OBGYN Provider 05/06/23 documented as of this encounter
--- OUTSIDE RECORDS SUMMARY | 2023-08-18 11:21 | XMS_ITS | Encounter Summary ---
Author Organization [place] Address [address] [facility] [place] [address] Care Team Providers Care Cancer Registry Coordinator Name Role Phone No Ref-Primary, Physician Primary Care Provider Oleg Aparicio PA-C Unavailable [phone] Ana Oreilly MD Unavailable [phone] Reason for Visit * Reason Onset Date Comments CONSENT 07/15/2023 Called pt to rec eive verbal consent to fax to another health office on her care team. LVM to CB. Encounter Details Date Type Department Care Team (Late st Contact Info) Description 07/15/2023 Telephone [facility] [address] [place] [address] Oleg Aparicio PA-C [address] [place] [address] CONSENT (Called pt to receive [...] Description 09/15/2023 2:30 PM CDT Office Visit [facility] [address] [place] [phone] Oleg Aparicio PA-C [address] [place], [place] [phone] documented as of this encounter Visit Diagnoses Not on filedocumented in this encounter Care Teams Cancer Registry Coordinator Relationship Specialty Start Date End Date No Ref-Primary, Physician PCP - General 03/31/23 Oleg Aparicio, RUPAL [address] [place], [place] [phone] Assigned Cancer Care Provider 05/06/23 Ana Oreilly MD [address] [place], [place] [phone] Assigned OBGYN Provider 05/06/23 documented as of this encounter
--- OUTSIDE RECORDS SUMMARY | 2023-08-18 11:21 | XMS_ITS | Encounter Summary ---
Author Organization [place] Address [address] [place] [address]. [place] [address] Care Team Providers Care Diesel Engine Tester Name Role Phone No Ref-Primary, Physician Primary Care Provider Oleg Aparicio PA-C Unavailable [phone] Ana Oreilly MD Unavailable [phone] Encounter Details Date Type Department Care [...] Description 09/15/2023 2:30 PM CDT Office Visit [facility] [address] [place] [address] Oleg Aparicio PA-C [address] [place] [address] documented as of this encounter Visit Diagnoses Not on filedocumented in this encounter Care Teams Diesel Engine Tester Relationship Specialty Start Date End Date No Ref-Primary, Physician PCP - General 03/31/23 Oleg Aparicio PA-C [address] [place] [address] [address] [place] [address] Assigned Cancer Care Provider 05/06/23 Ana Oreilly MD [address] [facility] [address] [place] [address] Assigned OBGYN Provider 05/06/23 documented as of this encounter
--- OUTSIDE RECORDS SUMMARY | 2023-08-18 11:21 | XMS_ITS | Encounter Summary ---
Author Organization [place] Address [address] [place] [address]. [place] [address] Care Team Providers Care Bilingual Case Manager Name Role Phone No Ref-Primary, Physician Primary Care Provider Oleg Aparicio PA-C Unavailable [phone] Ana Oreilly MD Unavailable [phone] Encounter Details Date Type Department Care Team (Late st Contact Info) Description 04/28/2023 MyC Medical Advice [facility] [address] [place] [phone] Carmen Pollack RN 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 Tobacco Use [...] for Bleeding and Clotting Disorders [address] [place] [address] [address] [place] [address] Oleg Aparicio PA-C [address] [place] [address] [address] [place], [place] [phone] documented as of this encounter Visit Diagnoses Not on filedocumented in this encounter Care Teams Bilingual Case Manager Relationship Specialty Start Date End Date No Ref-Primary, Physician PCP - General 03/31/23 Oleg Aparicio PA-C [address] [place] [address] [address] [place] [address] Assigned Cancer Care Provider 05/06/23 Ana Oreilly MD [address] [address] [place] [address] Assigned OBGYN Provider 05/06/23 documented as of this encounter
--- OUTSIDE RECORDS SUMMARY | 2023-08-18 11:21 | XMS_ITS | Encounter Summary ---
Author Organization [place] Address [address] [facility] [place] [address] Care Team Providers Care Turpentine Distiller Name Role Phone No Ref-Primary, Physician Primary Care Provider Oleg Aparicio PA-C Unavailable [phone] Ana Oreilly MD Unavailable [phone] Encounter Details Date Type Department Care Team (Late st Contact Info) Description 06/22/2023 2:00 PM CDT Lab [facility] [address] [facility] [address] [place] [address] Pulmonary embolism affecting in second [...] Description 09/15/2023 2:30 PM CDT Office Visit [facility] [address] [place] [phone] Oleg Aparicio PA-C [address] [place], [place] [address] documented as of this encounter Procedures Procedure [...] [facility] Core Lab [address] [facility], [address] [id number] documented in this encounter Visit Diagnoses Diagnosis Pulmonary embolism affecting in second trimester documented in this encounter Care Teams Turpentine Distiller Relationship Specialty Start Date End Date No Ref-Primary, Physician PCP - General 03/31/23 Oleg Aparicio PA-C [address] [place] [address] Assigned Cancer Care Provider 05/06/23 Ana Oreilly MD [address] [place] [address] Assigned OBGYN Provider 05/06/23 documented as of this encounter
--- OUTSIDE RECORDS SUMMARY | 2023-08-18 11:21 | XMS_ITS | Referral Summary ---
Author Organization [facility] Address [address] [place] [address] Care Team Providers Care Flight Crew Scheduler Name Role Phone Elsewhere, Pcp Primary Care Provider Unavailabl e Source Comments Patient records contain information from all sites at [facility]. For routine questions regarding patient records, call [phone] during business hours, M-F 8:00 AM - 5:00 PM Central Time. Record requests for emergency care only can be directed to [phone] at any time.[facility] Allergies No known active allergies Medications Medication Sig Dispensed Refills Start Date End Date Status ywqopwu-Kg-gahp-FA (VINATE ONE) 60 mg iron-1 mg per [...] How often do you attend chur or mandaeism services? More than 4 times per year 02/21/2022 Do you belong to any clubs o r organizations such as scientologist groups, unions, fraternal or athletic groups, or [...] and heating? Not hard at all 02/21/2022 [facility] - [...] Sex Assigned at Female 02/21/2022 11:00 AM AML ANALYST Gender Identity Female 02/21/2022 11:00 AM AML ANALYST Sexual Orientation Straight 02/21/2022 11 :00 AM AML ANALYST Last Filed Vital Signs Vital Sign Reading Time Taken Comments Blood Pressure - - Pulse - - Temperature 36.6 ??C (97.9 ??F) 02/24/2022 12:[address] Respiratory Rate - - Oxygen Saturation - - Inhaled Oxygen Concentration - - Weight 72.4 kg (159 lb 9.8 oz) 02/24/2022 12:38 PM AML ANALYST Height 169.7 cm (5' 6.81) 02/24/2022 12:[address] Body Mass Index 25.14 02/24/2022 12:38 PM AML ANALYST Plan of Treatment Not on file Care Teams Flight Crew Scheduler Relationship Specialty Start Date End Date Elsewhere, Pcp PCP - General Internal Medicine 02/24/22
--- OUTSIDE RECORDS SUMMARY | 2023-08-18 11:21 | XMS_ITS | Encounter Summary ---
Author Organization [place] Address [address] [place] [address]. [place] [address] Care Team Providers Care Supervisor Plate Forming Name Role Phone No Ref-Primary, Physician Primary Care Provider Oleg Aparicio PA-C Unavailable [phone] Ana Oreilly MD Unavailable [phone] Encounter Details Date Type Department Care Team (Late st Contact Info) Description 06/22/2023 [facility] Medical Advice [facility] [address] [place] [address] Oleg Aparicio PA-C [address] [place] [address] 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 Tobacco Use Types [...] Lovenox at 8:56 AM. 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 Patient verbalized understanding and will go to lab. Sandie White RN, BSN, PCCN Nurse Clinician [facility] [address] [place] [address] Office, direct: [phone] Main office number: [phone] Pronouns: She, her, hers documented in this encounter Plan of Treatment Upcoming Encounters Date Type Department Care Team (Late st Contact Info) Description 09/15/2023 2:30 PM CDT Office Visit [facility] [address] [place] [phone] Oleg Aparicio PA-C [address] [place] [phone] documented as of this encounter Visit Diagnoses Not on filedocumented in this encounter Care Teams Supervisor Plate Forming Relationship Specialty Start Date End Date No Ref-Primary, Physician PCP - General 03/31/23 Oleg Aparicio PA-C [address] [place] [address] Assigned Cancer Care Provider 05/06/23 Ana Oreilly MD [address] [address] Assigned OBGYN Provider 05/06/23 documented as of this encounter
--- OUTSIDE RECORDS SUMMARY | 2023-08-18 11:21 | XMS_ITS | Encounter Summary ---
Author Organization [place] Address [address] [place] [address]. [place] [address] Care Team Providers Care Collection Systems Administrator Name Role Phone No Ref-Primary, Physician Primary Care Provider Oleg Aparicio PA-C Unavailable [phone] Ana Oreilly MD Unavailable [phone] Encounter Details Date Type Department Care [...] Description 09/15/2023 2:30 PM CDT Office Visit [facility] [address] [facility] [address] [facility] [address] [place] [address] Oleg Aparicio PA-C [address] [place] [address] documented as of this encounter Visit Diagnoses Not on filedocumented in this encounter Care Teams Collection Systems Administrator Relationship Specialty Start Date End Date No Ref-Primary, Physician PCP - General 03/31/23 Oleg Aparicio PA-C [address] [place] [address] [address] [place] [address] Assigned Cancer Care Provider 05/06/23 Ana Oreilly MD [address] [facility] 400 [place] [address] Assigned OBGYN Provider 05/06/23 documented as of this encounter
[2023-08-18 11:27] LABS: Albumin* 4.4 g/dL (3.3-5.0); Chloride* 106 mmol/L (96-114)
[2023-08-18 11:28] LABS: Sodium* 141 mmol/L (135-149)
[2023-08-18 11:30] LABS: Creatinine* 0.5 mg/dL (0.5-1.5); Est. Creatinine Clearance* 165.81; Estimated Glomerular Filt Rate 133 ml/min
[2023-08-18 11:31] LABS: Alanine Aminotransferase* 27 U/L (4-35); Alkaline Phosphatase* 85 U/L (40-150); Anion Gap 6 mEq/L (7-15); Aspartate Amino Transferase* 27 U/L (12-35); Bilirubin Direct* 0.2 mg/dL (0.0-0.5); Bilirubin Total* 1.1 mg/dL (0.1-1.5); Blood Urea Nitrogen* 10 mg/dL (5-24); Calcium* 9.3 mg/dL (8.4-10.6); Carbon Dioxide* 29 mmol/L (20-32); Glucose* 91 mg/dL (60-115); Total Protein* 7.1 g/dL (6.0-8.3)
[2023-08-18 11:34] LABS: C Reactive Protein* 0.7 mg/dL (0.5-1.0)
--- NOTE | 2023-08-18 12:03 | P.OBCN_ITS ---
OB - CN: HPI Date of Consult Time Seen by Provider: 11:45 Date Seen: 08/18/23 Consult date: 08/18/23 Primary Care Provider: Marybeth Andrew MD Consult Narrative Narrative: Gabrielle is a 28yo seen in consultation at the ED for bleeding. She is s/p on 08/08 after she presented with labor. was complicated by bilateral PEs in early , therapeutic ACO with lovenox 100mg BID, history of at 36 weeks, history of precipitous delivery <2 hours and 5cm ovarian cyst. Gabrielle has had an unremarkable course. She is on therapeutic lovenox again for VTE prophyalxis. Gabrielle called the communication equipment repairer provider line due to increased bleeding yesterday evening. Reassurance was given and she was provided with return precautions. She presented to the ED this morning after her bleeding continued. Specifically, she has noted interval increase in bleeding in the last 24 hours or so. Symptoms started with more cramping, where she has been taking ibuprofen/tylenol as needed. She then noted increased vaginal bleeding, dark red in color. She is wearing a panty liner for bleeding protection where she changes this about every 3 hours. She did pass a few clots, smaller than a dime in size. She denies any dizziness/lightheadedness, chest pain or dyspnea. No nausea/vomiting, fevers/chills. No fundal tenderness or abnormal discharge. In the ED, she was found to be hemodynamically stable with Hgb of 13.0. Pelvic US was obtained, impression as follows: Findings suspicious for retained products of conception with heterogeneous endometrium or endometrial contents, despite lack of significant internal vascularity. History History 2 Elective abortions Para 2 Spontaneous abortions Hx # Term Pregnancies Ectopic pregnancies Hx # Pregnancies 1 Multiple births Number of Living Children 1 Past Pregnancies Del. Date GA/Weeks Outcome Route wt Inf Gender Labor Lgth Anesthesia Location Provider Compli 07/18/21 35 live - vaginal delivery 7 lb 3 oz Female 2 hrs none [facility] History labor ?O60.00 - labor without delivery, unspecified trimester (ICD-10) Low back pain ?M54.50 - Low back pain, unspecified (ICD-10) History of delivery ?Z87.51 - Personal history of pre-term labor (ICD-10) Obstetric vaginal laceration with second degree perineal laceration ?O70.1 - Second degree perineal laceration during delivery (ICD-10) Inflamed external hemorrhoid ?K64.4 - Residual hemorrhoidal skin tags (ICD-10) Chest wall pain ?R07.89 - Other chest pain (ICD-10) Surgical History History of third molar tooth extraction (2016) ?K08.409 - Partial loss of teeth, unspecified cause, unspecified class (ICD- 10) Family History Mother Hx of blood clots Family/Other Heart disease Breast cancer, Onset Age: 90 Paternal Grandmother Pulmonary hypertension Diabetes Paternal Grandfather Lung cancer Diabetes 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: , 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, 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 Very rare alcohol use Exercise 3 times a week, HIIT 30 minutes What is your current living situation?: I presently have a place to live Problems where you live: no known problems Problems where you live details: N/A In the past 12 months, utilities in danger of being shut off: no In past 12 months, lack of transportation kept you from medical appts, meetings, work, or getting things needed for daily living: no In the past 12 mos, have been you worried that your food would run out before you had money to buy more?: never true In the past 12 mos, the food you bought just didn't last and you didn't have money to buy more?: never true Smoking Status: Former smoker Do you use any of these nicotine containing products: None Second hand tobacco smoke exposure: No How often do you have a drink containing alcohol: never How often do you have six or more drinks on one occasion: Never AUDIT-C Alcohol total score: 0 Non-prescribed substance use: denies use How often does anyone, including family, friends and others, physically hurt you : never How often does anyone, including family, friends and others, insult or talk down to you: never How often does anyone, including family, friends and others, threaten you with harm: never How often does anyone, including family, friends and others, scream or curse at you: never Little interest or pleasure in doing things: not at all Feeling down, depressed, or hopeless: not at all service: No Meds Home Medications and Allergies Home Medications ?Medication ?Instructions ?Recorded ?Confirmed ?Type vitamin#30 30 mg iron-10 1 cap PO DAILY 05/26/22 08/08/23 History mg iron-folic acid 1 mg-omg3 capsule enoxaparin 100 mg/mL subcutaneous 100 mg subcut Q12H 06/08/23 08/08/23 History syringe Allergies Allergy/AdvReac Type Severity Reaction Status Date / Time No Known Allergies Allergy Unknown Verified 08/08/23 16:20 OB - H&P: Exam Physical Exam: Vital signs: Temp Pulse Resp BP Pulse Ox O2 Del Method 98 F 76 18 104/72 97 Room Air 08/18/23 10:07 08/18/23 10:03 08/18/23 10:03 08/18/23 10:03 08/18/23 10:03 08/18/23 10:03 Narrative: General: Alert and oriented, no acute distress Abdomen: Soft, non-tender and non-distended. Fundus palpates midway between umbilicus and pubic symphysis. Non-tender to palpation. No rebound or guarding. OB - Results Labs Labs: Short CBC 08/18/23 Range/Units 10:57 WBC 4.20 L (4.50-11.00) K/uL Hgb 13.0 (12.0-16.0) gm/dL Hct 41.5 (33.0-51.0) % Plt Count 240 (140-440) K/uL BMP 08/18/23 10:57 Sodium 141 Potassium 4.0 Chloride 106 Carbon Dioxide 29 BUN 10 Creatinine 0.5 Glucose 91 Calcium 9.3 Liver Function 08/18/23 Range/Units 10:57 Total Bilirubin 1.1 (0.1-1.5) mg/dL Direct Bilirubin 0.2 (0.0-0.5) mg/dL AST 27 (12-35) U/L ALT 27 (4-35) U/L Alkaline Phosphatase 85 (40-150) U/L Albumin 4.4 (3.3-5.0) g/dL Urine 06/27/24 Range/Units Unknown Urine Color Red A (Yellow) Urine Appearance Cloudy A (Clear) Urine pH 8.5 (5.0-8.5) Ur Specific [place] 1.015 (1.000-1.030) Urine Protein 3+ A (Negative) Urine Glucose (UA) Negative (Negative) OB - CN: A/P Assessment and Plan (1) bleeding: Status: Acute (2) Lactating mother: Status: Acute (3) Hx of pulmonary embolus during : Status: Acute Plan Gabrielle is a 28yo seen in the ED for evaluation of bleeding. She had an uncomplicated on 08/08, discharged to home on therapeutic lovenox for history of PEs in . She notes increased cramping and vaginal bleeding over the last 24 hours or so. She notes her activity has increased with time, where when she had cramping she attributed it to this. Pain is manageable with ibuprofen and tylenol PRN. She has noted increased bleeding from her baseline, where she is wearing a pantyliner and changes this about every 3 hours. She did pass a few tiny clots in the last 24 hours, less than the size of a dime. She is afebrile, hemodynamically stable and in no acute distress. Hemoglobin is 13. Physical exam is reassuring. Her pelvic US does show fluid in the fundal/mid endometrium (likely blood) with distal area of clot vs retained POC. Images were reviewed, where there is heterogeneity and areas of thickened endometrium up to 2.4cm described. There is no interval vascularity. I explained that her US may be consistent with retained POC, but it may also simply represent intrauterine blood products. Her bleeding is appropriate for a normal recovery, where she is not describing any heavy bleeding concerning for delayed PPH and she has no signs/symptoms of endometritis. We discussed potential options for management including suction D&C, outpatient methergine or simply expectant management. Based on her description of vaginal bleeding, normal VS and normal Hgb my clinical suspicion for retained POC or delayed PPH is low at this time. That said, her US has nonspecific findings of thickened endometrium and heterogeneity, no internal vascularity which is often seen with retained POC. We discussed potential risks of surgery including unnecessary surgery if this is not truly retained POC, increased bleeding (last took lovenox at 0900), infection and damage to surrounding structures. Since she is at high risk of bleeding on therapeutic lovenox, I would recommend a 24 hour course of methergine to try to evacuate intrauterine blood products and potentially any tiny retained POC. Very strict bleeding return precautions are reinforced, where I do expect she will have a slight increase in pain and bleeding during this course. If she has any significant increase in bleeding, dizziness/lightheadedness, chest pain, dyspnea - or certainly if she is soaking a maxi pad in 1 hour or less or passing large clots - I would recommend she hold her lovenox and return to ED. Discussed tylenol and ibuprofen for pain management. Since her bleeding is appropriate at present, she does not need to hold lovenox at this time. Her next outpatient visit is 08/23/23. Very strict interval return precautions were reinforced. Gabrielle and her express understanding and are agreeable to plan.
[2023-08-18] MEDS: METHYLERGONOVINE MALEATE 0.2 MG/ML INJ IV (12:30)
== END 2023-08-18 12:44 | disposition home or self-care (01) ==
PROVIDERS: Emergency Provider Family Medicine; PCP Family Medicine
DX: O72.1 Other immediate postpartum hemorrhage (principal)
CPT/HCPCS: 36415; 76856; 80048; 80076; 81001; 85025; 86140; 87086; 96374; 99283; 99284; J2210

== ENCOUNTER 2023-08-22 14:25 | Outpatient (CLI) | payer BC, SELFPAY ==
--- OUTSIDE RECORDS SUMMARY | 2023-08-22 14:28 | XMS_ITS | Encounter Summary ---
Author Organization [place] Address [address] [facility] [place] [address] Care Team Providers Care Forestry Patrolman Name Role Phone No Ref-Primary, Physician Primary Care Provider Oleg Aparicio PA-C Unavailable [phone] Ana Oreilly MD Unavailable [phone] Encounter Details Date Type Department Care Team (Late st Contact Info) Description 08/04/2023 Orders Only [facility] [address] [place] [address] Oleg Aparicio PA-C [address] [place] [address] 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 Tobacco Use Types [...] from the original note were not included. [facility] [address], [address], [place] [address] Main: [phone], Telephone Note: Patient: Gabrielle Mcmahon : 1995 Date of this note written: August 04, 2023 Received a call from Dr. Rajan Lantigua Headstart Teacher in [facility] about Gabrielle's status on her . In the past couple weeks, she has 2 incidents where she possibly has gone into labor and held her enoxaparin dosing as directed. On 07/15/2023, she was admitted after having some contraction at [facility] at around 32w5d. During this hospitalization, enoxaparin [...] bleeding event. Oleg Aparicio PA-C, MPAS Physician Film Drying Machine Operator [facility]. documented in this encounter Plan of Treatment Upcoming Encounters Date Type Department Care Team (Late st Contact Info) Description 09/15/2023 2:30 PM CDT Office Visit [facility] [address] [place] [phone] Oleg Aparicio PA-C [address] [place] [address] documented as of this encounter Visit Diagnoses Not on filedocumented in this encounter Care Teams Forestry Patrolman Relationship Specialty Start Date End Date No Ref-Primary, Physician PCP - General 03/31/23 Oleg Aparicio PA-C [address] [place], [place] [address] Assigned Cancer Care Provider 05/06/23 Ana Oreilly MD [address] [place], [place] [address] Assigned OBGYN Provider 05/06/23 documented as of this encounter
--- OUTSIDE RECORDS SUMMARY | 2023-08-22 14:28 | XMS_ITS | Referral Summary ---
Author Organization [place] Address [address] [facility] [place] [address] Care Team Providers Care Laborer Yard Name Role Phone No Ref-Primary, Physician Primary Care Provider Oleg Aparicio PA-C Unavailable [phone] Ana Oreilly MD Unavailable [phone] Encounters Date Type Department Care Team Description 08/04/2023 Orders Only [facility] [address] [address] [place] [address] Oleg Aparicio PA-C 08/04/2023 Telephone [facility] [place] [address] [place], [place] [phone] Jeanette Truong MD 07/28/2023 Telephone [facility] [address] [facility] [address] [place] [address] Resource, [facility] Call To Schedule Appointment (Talked with Pt- per Oleg reddy advised to F/U one month after child is born. Will call back to schedule.) 07/15/2023 6:03 PM CDT - 07/18/2023 10:20 AM CDT Hospital Encounter [facility] [address] [place] [address] Moira Roa MD Discharge Disposition: Home or Self Care 07/15/2023 Telephone [facility] [address] [place] [address] Oleg Aparicio PA-C CONSENT (Called pt to receive verbal consent to fax to another health office on her care team. LVM to CB.) 07/04/2023 Travel 07/04/2023 2:30 PM CDT Office Visit [facility] [address] [address] [place] [address] Oleg Aparicio PA-C Pulmonary embolism affecting in second trimester (Primary Dx); Family history of blood clots; 31 weeks gestation of 06/22/2023 2:00 PM CDT Lab [facility] [address] [place] [address] Pulmonary embolism affecting in second trimester 06/22/2023 MyC Medical Advice [facility] [address] [facility] [address] [place] [address] Oleg Aparicio PA-C 06/21/2023 Travel 06/21/2023 10:00 AM CDT Office Visit [facility] [address] [place] [address] Ori Adame MD Encounter for ultrasound to check growth (Primary Dx) 06/21/2023 9:30 AM CDT - 06/21/2023 11:59 PM CDT Hospital Encounter [facility] [address] [place] [address] Ori Adame MD Encounter for ultrasound to check growth Discharge Disposition: Home or Self Care 05/31/2023 Travel 05/31/2023 11:30 AM CDT Office Visit [facility] [address] [place] [address] Ori Adame MD Encounter for ultrasound to check growth (Primary Dx) 05/31/2023 10:45 AM CDT - 05/31/2023 11:59 PM CDT Hospital Encounter [facility] [address] [place] [address] Ori Adame MD Encounter for [...] Upcoming Encounters Date Type Department Care Team ([facility] st Contact Info) Description 09/15/2023 2:30 PM CDT Office Visit [facility] [address] [facility] [address] [place] [phone] Oleg Aparicio PA-C [address] [place] [address] Procedures Procedure Name Priority Date/Time Associated Diagnosis [...] embolism affecting in second trimester [facility] US COMPREHENSIVE SINGLE F/U Routine 06/21/2023 10:50 AM CDT Encounter for ultrasound to check growth [facility] US COMPREHENSIVE SINGLE F/U Routine [...] LAB - BLOOD ORDERABL ES LABORATORY [facility] Lab [address] 1[address] floor, Room [address] [place] [address], [place] [phone] * Rupture of Membranes by ROM Plus [...] BODY FLUIDS OR DERABLES Performing Organization Address City/[facility]/ZIP Co de Phone Number LABORATORY [facility] [address] 1[address] floor, [address], [place] [address], [facility] [phone] * (ABNORMAL) Wet preparation (07/17/2023 6:52 PM [...] - MICRO GENERAL ORDERABLES Performing Organization Address City/[facility]/ZIP Co de Phone Number LABORATORY [facility] [address] 1st floor, [address] [place] [address], [facility] [phone] * (ABNORMAL) CBC with platelets and differential [...] LAB - BLOOD ORDERABL ES LABORATORY [facility] [address] 1[address] floor, [address] [place] [address], [facility] [phone] * Adult Type and Screen (07/15/2023 9:31 PM CDT) ABO/RH(D) O POS 07/15/2023 7:26 PM CDT BLOOD BANK Antibody Screen Negative Negative 07/15/2023 7:26 PM CDT BLOOD BANK SPECIMEN EXPIRATION DATE [id number] 07/15/2023 7:26 PM CDT BLOOD BANK Blood STRUCTURE OF RIGHT UPPER LIMB / Unknown Venipuncture / Unknown 07/15/2023 9:31 PM CDT 07/15/2023 9:34 PM CDT Moira Roa MD LAB - BLOOD BANK MONISHA T ORDER BLOOD BANK [address] [place] [address], [facility] * (ABNORMAL) Creatinine (07/15/2023 9:31 PM CDT) Creatinine 0.47(L) 0.51 - 0.95 mg/dL 07/15/2023 9:55 PM CDT LABORATORY GFR Estimate >90 >60 mL/min/1.7 3m2 07/15/2023 9:55 PM CDT LABORATORY Blood STRUCTURE OF RIGHT UPPER LIMB / Unknown Venipuncture / Unknown 07/15/2023 9:31 PM CDT 07/15/2023 9:34 PM CDT Moira Roa MD LAB - BLOOD ORDERABL ES LABORATORY [facility] [address] 1st floor, [address] [place] [address], [place] [phone] * (ABNORMAL) UA with Microscopic reflex to Culture (07/15/2023 6:45 PM CDT) Color Urine Straw Colorless, Straw, Light Yellow, Yellow 07/15/2023 7:04 PM CDT LABORATORY Appearance Urine Clear Clear 07/15/19 7:04 PM CDT LABORATORY Glucose Urine Negative Negative mg/dL 07/15/2023 7:04 PM CDT LABORATORY Bilirubin Urine Negative Negative 7:04 PM CDT LABORATORY Ketones Urine 40(A) Negative mg/dL 07/15/2023 7:04 PM CDT LABORATORY Specific [place] Urine 1.009 1.003 - 1.035 07/15/2023 7:04 [...] LAB - URINE ORDERABL ES LABORATORY [facility] [address] 1st floor, [address] [place] [address], [facility] [phone] * Chlamydia trachomatis/Neisseria gonorrhoeae by PCR (07/15/2023 6:23 PM CDT) Chlamydia Trachomatis Negative Negative 07/16/2023 12:02 PM CDT [facility] Comment: Negative for C. trachomatis rRNA by head usher mediated amplification. A negative result by head usher mediated amplification does not preclude the presence of infection because results are dependent on proper and adequate collection, absence of inhibitors and sufficient rRNA to be detected. Neisseria gonorrhoeae Negative Negative 07/16/2023 12:02 PM CDT [facility] Comment:Negative for N. gono rrhoeae rRNA by head usher mediated amplification. A negative result by head usher mediated amplification does not preclude the presence of C. trachomatis infection because results are dependent on proper and adequate collection, absence of inhibitors and sufficient rRNA to be detected. Urine VOIDED URINE SPECIMEN / Unknown Non-blood Collection / Unknown 07/15/2023 6:23 PM CDT 07/15/2023 6:30 PM CDT Moira Roa MD LAB - MICRO GENERAL ORDERABLES [facility] Inf. Diseases Diag. Lab [address] [place] [address], [facility] * Group B Streptococcus (External Result) (07/15/2023) [...] - BLOOD ORDERABL ES Performing Organization Address [facility]/ZIP Co de Phone Number [facility] Core Lab [address] [facility] [address], [address] [place] [address] * [facility] Comprehensive Single F/U (06/21/2023 10:50 AM CDT) [...] ? Study Date: ??06/21/2023 9:50am Pat. NO: ??[id number] ?Referring ??MD: TRISTA MELLO Site: ??[place] ? [place] Architect: Chanda Lazo RDMS : ??1995 ?Age: [...] 2 lb 12 ?oz EFW by ?Hadlock ([id number]) Head / Face / Neck Biometry: Screw Machine Set Up Operator Tool ? 4.9 ? mm CM ?5.5 ? mm ANATOMY ----- The following structures appear normal: Head / Neck ? Cranium. Head size. Head shape. Lateral ventricles. Midline falx. Cerebellum. Cisterna magna. Thalami. Face ? Lips. Profile. Nose. Heart / Thorax ?4-chamber view. RVOT view. LVOT view. 7-cullzh-mvexczs view. ? Diaphragm. Abdomen ? Stomach. Kidneys. [...] [place] Study Date: 06/21/2023 9:50am Pat. NO: [id number] Referring MD: TRISTA MELLO Site: [facility] S[place] Architect: Chanda LazoMELLY : 1995 Age: 28 ----- [...] 2 lb 12 oz EFW by Hadlock ([id number]) Head / Face / Neck Biometry: Screw Machine Set Up Operator Tool 4.9 mm CM 5.5 mm ANATOMY ----- The following structures appear normal: Head / Neck Cranium. Head size. Head shape.Lateral ventricles. Midline falx. Cerebellum. Cisterna magna. Thalami. Face Lips. Profile. Nose. Heart / Thorax 4-chamber view. RVOT view. LVOT view.4-dcgrci-mofhleh view. Diaphragm. Abdomen Stomach. Kidneys. Bladder. Spine [...] fluid volume appeared normal. Ori Adame MD [facility] ORDERABL ES * HIV-1 Antibody (External Result) (01/26/2023) HIV 1&2 Antibody (External) Negative Nonreactive EXTERNAL LAB Patient Reported LAB - HIM EXTERNAL R ESULT EXTERNAL LAB External Lab from Last 3 Months or Most Recently Relevant to Health Maintenance Advance Directives For more information, please contact: [phone] * Full Code (Latest Code Status on File) Date Activated Date Inactivated Comments 07/15/2023 7:25 PM 07/18/2023 1:55 PM All basic an d advanced life-sustaining interventions are performed as appropriate Question Answer Comments Code status determined by: Discussion with patie nt/ legal decision maker Care Teams Laborer Yard Relationship Specialty Start Date End Date No Ref-Primary, Physician PCP - General 03/31/23 Oleg Aparicio, PA-C [facility] [address] [place], [place] [address] Assigned Cancer Care Provider 05/06/23 Ana Oreilly MD [address] [facility] [address] [place] [address] Assigned OBGYN Provider 05/06/23
--- OUTSIDE RECORDS SUMMARY | 2023-08-22 14:28 | XMS_ITS | Encounter Summary ---
Author Organization [place] Address [address] [facility] [place] [address] Care Team Providers Care Surgical Services Director Name Role Phone No Ref-Primary, Physician Primary Care Provider Oleg Aparicio PA-C Unavailable [phone] Ana Oreilly MD Unavailable [phone] Reason for Visit * Reason Onset Date Comments CONSENT 07/15/2023 Called pt to rec eive verbal consent to fax to another health office on her care team. LVM to CB. Encounter Details Date Type Department Care Team (Late st Contact Info) Description 07/15/2023 Telephone [facility] [address] [place] [address] Oleg Aparicio PA-C [address] [place] [address] CONSENT (Called pt to receive [...] 2:30 PM CDT Office Visit [facility] [address] [place] [phone] Oleg Aparicio PA-C [address] [place], [place] [phone] documented as of this encounter Visit Diagnoses Not on filedocumented in this encounter Care Teams Surgical Services Director Relationship Specialty Start Date End Date No Ref-Primary, Physician PCP - General 03/31/23 Oleg Aparicio, RUPAL [address] [place], [place] [phone] Assigned Cancer Care Provider 05/06/23 Ana Oreilly MD [address] [place], [place] [phone] Assigned OBGYN Provider 05/06/23 documented as of this encounter
--- OUTSIDE RECORDS SUMMARY | 2023-08-22 14:28 | XMS_ITS | Continuity of Care Document ---
Author Organization [facility] Address [address] [place] [address] Phone Care Team Providers Care Muffle Worker Name Role Phone Moira Roa MD Unavailable [...] [address], [place], [place], [id number] , [place] tel: [phone] [facility] No Information 4 Crispin Pizarro. [address], [place], [address], [place]. tel: [phone] Subsequent Hospital Care MDM Straightforward Or LOW 25 MIN [facility], [address], [place], [place], [id number] , [place] tel: [phone] [facility] IP No Information 4 Soledad Valentin. [address], [place], [address], [place]. tel: [phone] Initial Hospital Inpatient Or Observation Moderate MDM 55min [facility], [address], [place], [place], [id number] , [place] tel: [phone] [facility] IP labor without delivery, third trimesterPersona l history of pre-term laborInfection of other part of genital tract in , third trimesterPersona l history of pulmonary [id number] weeks gestation of pregnancyStrepto coccus B carrier state complicating [id number] weeks gestation of 4 [facility]. [address], [address], [place], [address], [place]. tel:[phone] Family History Family Member Type Diagnosis Age [...]
--- OUTSIDE RECORDS SUMMARY | 2023-08-22 14:28 | XMS_ITS | Encounter Summary ---
Author Organization [place] Address [address] [place] [address] Care Team Providers Care Steffen House Supervisor Name Role Phone No Ref-Primary, Physician Primary Care Provider Oleg Aparicio PA-C Unavailable [phone] Ana Oreilly MD Unavailable [phone] Encounter Details Date Type Department Care Team (Late st Contact Info) Description 08/04/2023 Telephone [facility] [place] [address] [place] [address] Jeanette Truong MD [address] [place] [address] 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 Tobacco Use Types [...] lovenox. I reviewed with the provider the [facility] consult from 04/12/23 for this indication. At [...] something that we recommend as standardwithin our [facility] group at this time. I do not see an indication for transfer to [facility] care at this time, given distance from our hospital and concern for rapid progressive labor. Plan to manage as noted for in her 04/12/23 consultation as well. Jeanette Truong MD documented in this encounter Plan of Treatment Upcoming Encounters Date Type Department Care Team (Late st Contact Info) Description 09/15/2023 2:30 PM CDT Office Visit [facility] [address] [place] [phone] Oleg Aparicio PA-C [facility] [place] [phone] documented as of this encounter Visit Diagnoses Diagnosis uterine contractions- Primary Threatened premature labor, unspecified as to episode of care documented in this encounter Care Teams Steffen House Supervisor Relationship Specialty Start Date End Date No Ref-Primary, Physician PCP - General 03/31/23 Oleg Aparicio PA-C [address] [place] [phone] Assigned Cancer Care Provider 05/06/23 Ana Oreilly MD [address] [place] [address] Assigned OBGYN Provider 05/06/23 documented as of this encounter
--- OUTSIDE RECORDS SUMMARY | 2023-08-22 14:28 | XMS_ITS | Encounter Summary ---
Author Organization [place] Address [address] [place] [address] Care Team Providers Care Security Rep Name Role Phone No Ref-Primary, Physician Primary Care Provider Oleg Aparicio PA-C Unavailable [phone] Ana Oreilly MD Unavailable [phone] Reason for Visit * Reason Comments Labor * Auth/Cert (Routine) Specialty Diagnoses / Procedures Referred By Contac t Referred To Contact converter supervisor Diagnoses labor Sh Labor & Delivery [address] [address] Referral ID Status Reason Start Date Expiration Date Visits Re quested Visits Authorized [id number] 1 1 Encounter Details Date Type Department Care Team (Latest Contact Info) Description 07/15/2023 6:03 PM CDT - 07/18/2023 10:20 AM CDT Hospital Encounter [facility] [address] [phone] Moira Roa MD [address] [phone] Discharge Disposition: Home or Self Care Social [...] Roa MD - 07/18/2023 10:20 AM CDT [facility] Discharge Summary Gabrielle Mcmahon Age: [age] year old Date of : 1995 Date of Admission: 07/15/2023 Date of Discharge:: 08/08/2023 Admitting Physician: 07/18/2023 10:20 AM Discharge Physician: Moira Roa MD Home clinic: [facility] Admission Diagnoses: at 33w1d who admitted [...] Brief History of Illness: Pt transferred from [facility] for threatened PTL at 32w5d. She [...] Where can you learn more? Go to [email or web address]/patiented Enter N531 in the search box to learn more about Learning About When to Call Your Doctor During (After 20 Weeks). Current as of: August 30, 2022 Content Version: 14.0 ?? [employer]. Care instructions adapted under license by your healthcare professional. If you have questions about a medical condition or this instruction, always ask your healthcare professional. [employer] disclaims any warranty or liability for your [...] Mcmahon : 1995 Admit date: 07/15/2023 Acct: [id number] Assessment/Plan: Gabrielle Mcmahon is a at 33w1d who admitted for threatened labor. Today is HD#4. Pt transferred here from an outside facility and is unassigned to [facility]. contractions - minimal cervical change during admission. - continues to have irregular and non painful cramping. - s/p Nifedipine course - s/p BMZ 07/14, 07/15 - UDip WNL. NG/CT neg - GBS negative - s/p NICU consult - Tracings reactive - Dispo: plan for discharge today with low threshold to return for any increased symptoms. 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 Hx of BL PE earlier this [...] cords Psych: mood appropriate FHT: tracings reactive [place]: irritable Labs/Imaging: Results for orders placed or [...] Mcmahon : 1995 Admit date: 07/15/2023 Acct: [id number] Assessment/Plan: Gabrielle Mcmahon is a at 33w0d who admitted for threatened labor. Today is HD#3. Pt transferred here from an outside facility and is unassigned to [facility]. contractions - No cervical change on [...] Moira Roa MD David F. MD [facility] EVA Sanders PA 07/17/2023, 8:03 AM * Crissy Akins RN - 07/17/2023 12:00 AM CDT Pts GBS was collected at [facility] on 07/14, pt received results via email [...] pending Urine GC pending GBS collected at [facility] and pending. S/p NICU consult on 07/15/23 Hx of bilateral PE in this As outpatient, pt on lovenox 100 mg bid. Reordered for 1130am on 07/15 See hematology note for additional details. Bilateral SCD's Ambulate freely PNC If hospitalized mcc, plan growth ultrasound q 4 weeks. Continue [...] not included. July 15, 2023 Gabrielle Mcmahon [id number] OB Admit History & Physical CC: contractions HPI: at 32w5d who was a transfer from [facility]. She has had adequate care up to this point. She was seen at her routine visit today where she shared with her provider that she was having on and off contractions over the last couple of weeks but increased frequency and pressure over the last couple of days. She was evaluated on labor and delivery in [place] and contractions were noted on NST. Transvaginal [...] and followed by hematology.Most recent encounter in [facility] on 06/1323. She has been followed by MFM for growth assessment. The last growth was on 06/20 at 18% with AC at 14%. They recommend growth every 4 weeks. Pt did have growth ultrasound on 07/13 in [facility] [place], vertex, EFW 27%, AC 30% Her OB [...] Negative GI: Negative BREAST: Negative : Negative BEAD PREPARER: Negative CV: Negative PULMONARY: Negative MUSCULOSKELETAL: Negative [...] Strain: Low Risk (02/21/2022) Received from [facility] Overall Financial Resource Strain (CARDIA) Difficulty of Paying Living Expenses: Not hard at all Food Insecurity: No Food Insecurity (02/21/2022) Received from [facility] Hunger Vital Sign Worried About Running Out of Food in the Last Year: Never true Ran Out of Food in the Last Year: Never true Transportation Needs: No Transportation Needs (02/21/2022) Received from [facility] PRAPARE - Transportation Lack of Transportation (Medical): No Lack of Transportation (Non-Medical): No Physical Activity: Insufficiently Active (02/21/2022) Received from [facility] Exercise Vital Sign Days of Exercise per Week: 3 days Minutes of Exercise per Session: 20 min Stress: Stress Concern Present (02/21/2022) Received from [facility] [place] [employer] - Occupational Stress Questionnaire Feeling of Stress : To some extent Social Connections: Unknown (08/26/2022) Re[facility] from [facility], [facility] Social Connections Frequency of Communication with Friends and Family: Not on file Interpersonal Safety: Not At Risk (02/21/2022) Received from [facility] Humiliation, Afraid, Rape, and Kick questionnaire Fear of Current or Ex-Partner: No Emotionally Abused: No Physically Abused: No Sexually Abused: No Housing Stability: Low Risk (02/21/2022) Received from [facility] Housing Stability Vital Sign Unable to Pay [...] mg/dL Mucus Urine Present Abnormal /LPF Specific [place] Urine 1.009 RBC Urine <1 /HPF Blood [...] 26.00 kg/m?? FHT 140, mod joyce, reactive [place]: irregular contractions Alert Awake in NAD, very [...] pending Urine GC pending GBS collected at [facility] and pending. Consider NICU consult tomorrow if applicable Hx of bilateral PE in this As outpatient, pt on lovenox 100 mg bid. Last dose at 0915 on 07/14. Will hold for tonight and if nolabor symptoms, plan to resume tomorrow morning. See hematology note for additional details. Bilateral SCD's Ambulate freely PNC If hospitalized m[facility], plan growth ultrasound q 4 weeks. Continue daily PNV Plan NST q shift and continuous monitoring if pt complaints of more that 5 contractions in an hour. Dispo; pt admitted to labor and delivery. Anticipate stay through the steroid window at minimum. 40 minutes spent on face to face time, documentation review, and h and p. Moira Roa MD MD Dept of COLLEGE TEACHER July 15, 2023 documented in this encounter Consult Notes * Alma Acosta, WAXED BAG MACHINE OPERATOR OTOLARYNGOLOGY NURSE - 07/15/2023 8:57 PM CDTAssociated Order(s): NURSE PRACT IP CONSULT Images from the original note were not included. [facility] Neonatology Antepartum Counseling Consult: I was asked to provide antepartum counseling for Gabrielle Mcmahon at the request of Moira Roa MD secondary to labor. Ms. Gbarielle Mcmahon is currently 32 weeks/ 5 days [...] lung development, nutrition, growth and development, and mcc outcomes. I also explained the basic criteria [...] names if she comes back to [facility]. * Provider Notification - Crissy Akins [...] negative GBS result via email notification from [facility]. * Provider Notification - Crissy Akins RN [...] ambulance at 1735 from being transferred from [facility]. Report received from EMS. Dr. Kumari [...] feels crampy and slight pelvic pressure. At [place] she received 2 gr ampicillin at 1515. 30mg of Niphedipine at 1551, 1st dose of Beta at 1514 and an LR bolus of 1000cc [id number]. Cx seemed to space out after bolus. Pt has a hx of bilateral PE in . No diagnosis givenbut taking 100mg of lovenox BID and followed by Hem. She also had a wet prep done today 07/14 at ( [facility] labor and delivery) and negative, Amniosure which was negative. FFN done and positive. US done as well for cervical length and 8mm 2, 80-3. GBS was colleted at [place] as well 07/14. Once pt here UA/UC [...] 2:30 PM CDT Office Visit [facility] [address] [facility] [address] [place] [address] Oleg Aparicio PA-C [address] [place] [address] documented as of this encounter Procedures Procedure [...] MD LAB - BLOOD ORDERABL ES LABORATORY [facility] [address] 1[address] floor, [address] [place] [address], [facility] [phone] * Rupture of Membranes by ROM Plus (07/17/2023 6:52 PM CDT) Pathologist [facility] Rupture of Membranes by ROM Plus Negative [...] LAB - BODY FLUIDS OR DERABLES LABORATORY [facility] [address] floor, [address] [place] [address], [facility] [phone] * (ABNORMAL) Wet preparation (07/17/2023 6:52 PM [...] MD LAB - MICRO GENERAL ORDERABLES LABORATORY [facility] Acute Care Lab [address] floor, [address] [place] [address], [facility] [phone] * Adult Type and Screen (07/15/2023 9:31 PM CDT) ABO/RH(D) O POS 07/15/2023 7:26 PM CDT BLOOD BANK Antibody Screen Negative Negative 07/15/2023 7:26 PM CDT BLOOD BANK SPECIMEN EXPIRATION DATE [id number] 07/15/2023 7:26 PM CDT BLOOD BANK Blood STRUCTURE OF RIGHT UPPER LIMB / Unknown Venipuncture / Unknown 07/15/2023 9:31 PM CDT 07/15/2023 9:34 PM CDT Moira Roa MD LAB - BLOOD BANK MONISHA T ORDER Performing Organization Address City/[facility]/ZIP Co de Phone Number BLOOD BANK [address] [place] [address], [facility] * (ABNORMAL) CBC with platelets [...] - 36.5 g/dL 07/15/2023 9:37 PM [facility] RDW 13.2 10.0 - 15.0 % 07/15/2023 9:37 PM CDT LABORATORY Platelet Count 199 150 - 450 10e3/uL 07/15/2023 9:37 PM CDT LABORATORY % Neutrophils 92 % 07/15/2023 9:37 PM [facility] % Lymphocytes 6 % 07/15/2023 9:37 PM [facility] % Monocytes 1 % 07/15/2023 9:37 PM [facility] % Eosinophils 0 % 07/15/2023 9:37 PM [facility] % Basophils 0 % 07/15/2023 9:37 PM CDT LABORATORY % Immature Granulocytes 1 % 07/15/2023 9:37 PM [facility] NRBCs per 100 WBC 0 <1 /100 024 9:37 PM [facility] Absolute Neutrophils 9.7(H) 1.6 - 8.3 10e3/uL 07/15/2023 9:37 PM [facility] Absolute Lymphocytes 0.7(L) 0.8 - 5.3 10e3/uL 07/15/2023 9:37 PM [facility] Absolute Monocytes 0.1 0.0 - 1.3 10e3/uL 07/15/2023 9:37 PM [facility] Absolute Eosinophils 0.0 0.0 - 0.7 10e3/uL 07/15/2023 9:37 PM [facility] Absolute Basophils 0.0 0.0 - 0.2 10e3/uL 07/15/2023 9:37 PM [facility] Absolute Immature Granulocytes 0.1 <=0.4 10e3/uL 07/15/2023 9:37 PM [facility] Absolute NRBCs 0.0 10e3/uL 07/15/2023 9:37 PM [facility] Blood STRUCTURE OF RIGHT UPPER LIMB / Unknown Venipuncture / Unknown 07/15/2023 9:31 PM CDT 07/15/2023 9:34 PM CDT Moira Roa MD LAB - BLOOD ORDERABL ES LABORATORY [facility] [address] floor, [address] [place] [address], [facility] [phone] * (ABNORMAL) Creatinine (07/15/2023 9:31 PM CDT) Creatinine 0.47(L) 0.51 - 0.95 mg/dL 07/15/2023 9:55 PM CDT LABORATORY GFR Estimate >90 >60 mL/min/1.7 3m2 07/15/2023 9:55 PM CDT LABORATORY Blood STRUCTURE OF RIGHT UPPER LIMB / Unknown Venipuncture / Unknown 07/15/2023 9:31 PM CDT 07/15/2023 9:34 PM CDT Moira Roa MD LAB - BLOOD ORDERABL ES LABORATORY [facility] [address] floor, [address] [place] [address], [facility] [phone] * (ABNORMAL) UA with Microscopic reflex to Culture (07/15/2023 6:45 PM CDT) Color Urine Straw Colorless, Straw, Light Yellow, Yellow 07/15/2023 7:04 PM CDT LABORATORY Appearance Urine Clear Clear 07/15/19 7:04 PM CDT LABORATORY Glucose Urine Negative Negative mg/dL 07/15/2023 7:04 PM CDT LABORATORY Bilirubin Urine Negative Negative 7:04 PM CDT LABORATORY Ketones Urine 40(A) Negative mg/dL 07/15/2023 7:04 PM CDT LABORATORY Specific [place] Urine 1.009 1.003 - 1.035 07/15/2023 7:04 [...] MD LAB - URINE ORDERABL ES LABORATORY [facility] Acute Care Lab [address] floor, [address] [place] [address], [facility] [phone] * Chlamydia trachomatis/Neisseria gonorrhoeae by PCR (07/15/2023 6:23 PM CDT) Pathologist [facility] Chlamydia Trachomatis Negative Negative 07/16/2023 12:02 PM CDT [facility] Comment: Negative for C. trachomatis rRNA by recycling center operator mediated amplification. A negative result by recycling center operator mediated amplification does not preclude the presence of infection because results are dependent on proper and adequate collection, absence of inhibitors and sufficient rRNA to be detected. Neisseria gonorrhoeae Negative Negative 07/16/2023 12:02 PM CDT [facility] Comment:Negative for N. gono rrhoeae rRNA by recycling center operator mediated amplification. A negative result by recycling center operator mediated amplification does not preclude the presence of C. trachomatis infection because results are dependent on proper and adequate collection, absence of inhibitors and sufficient rRNA to be detected. Urine VOIDED URINE SPECIMEN / Unknown Non-blood Collection / Unknown 07/15/2023 6:23 PM CDT 07/15/2023 6:30 PM CDT Moira Roa MD LAB - MICRO GENERAL ORDERABLES [facility] Inf. Diseases Diag. Lab [address] [facility], [address] [place] [address] * Group B Streptococcus (External Result) (07/15/2023) Pathologist [facility] Group B Streptococcus (External) Negative Negative EXTERNAL LAB Patient Reported LAB - HIM EXTERNAL R ESULT Performing Organization Address City/[facility]/ZIP Co de Phone Number EXTERNAL LAB External Lab * ABO & RH (External Result) (01/26/2023) Pathologist [facility] ABO (External) O EXTERNAL LAB Rh (External) POSITIVE EXTERNAL LAB Patient Reported LAB - HIM EXTERNAL R ESULT EXTERNAL LAB External Lab * HIV-1 Antibody (External Result) (01/26/2023) Pathologist [facility] HIV 1&2 Antibody (External) Negative Nonreactive EXTERNAL LAB Patient Reported LAB - HIM EXTERNAL R ESULT EXTERNAL LAB External Lab * Rubella Antibody IgG (External Result) (01/26/2023) Pathologist [facility] Rubella Antibody IgG (External) Immune Nonreactive EXTERNAL [...] Antepartum documented in this encounter Care Teams Security Rep Relationship Specialty Start Date End Date No Ref-Primary, Physician PCP - General 03/31/23 Oleg Aparicio, PABrightC [address] [facility] [address] [place] [address] Assigned Cancer Care Provider 05/06/23 Ana Oreilly MD [address] [facility] [address] [place] [address] Assigned OBGYN Provider 05/06/23 documented as of this encounter
--- OUTSIDE RECORDS SUMMARY | 2023-08-22 14:28 | XMS_ITS | Clinical Summary ---
Author Organization [place] Address [address] [facility] [place] [address] Care Team Providers Care Foam Rubber Mixer Name Role Phone No Ref-Primary, Physician Primary Care Provider Oleg Aparicio PA-C Unavailable [phone] Ana Oreilly MD Unavailable [phone] Allergies No known active allergies Medications [...] Department Care Team Description 08/04/2023 Orders Only [facility] [address] [place] [phone] Oleg Aparicio PA-C 08/04/2023 Telephone [facility] [place] [address] [place] [address] Jeanette Truong MD 07/28/2023 Telephone [facility] [address] [place] [phone] Jerry Louie Hemo Call To Schedule Appointment (Talked with Pt- per ptOleg advised to F/U one month after child is born. Will call back to schedule.) 07/15/2023 6:03 PM CDT - 07/18/2023 10:20 AM CDT Hospital Encounter [facility] [address] [place] [phone] Moira Roa MD Discharge Disposition: Home or Self Care 07/15/2023 Telephone [facility] [address] [place] [phone] Oleg Aparicio PA-C CONSENT (Called pt to receive verbal consent to fax to another health office on her care team. LVM to CB.) 07/04/2023 2:30 PM CDT Office Visit [facility] [address] [place] [phone] Oleg Aparicio PA-C Pulmonary embolism affecting in second trimester (Primary Dx); Family history of blood clots; 31 weeks gestation of 07/04/2023 Travel 06/22/2023 2:00 PM CDT Lab [facility] [address] [place] [address] Pulmonary embolism affecting in second trimester 06/22/2023 MyC Medical Advice [facility] [address] [place] [address] Oleg Aparicio PA-C 06/21/2023 10:00 AM CDT Office Visit [facility] [address] [place] [address] Ori Adame MD Encounter for ultrasound to check growth (Primary Dx) 06/21/2023 9:30 AM CDT - 06/21/2023 11:59 PM CDT Hospital Encounter [facility] [address] [place] [address] Ori Adame MD Encounter for ultrasound to check growth Discharge Disposition: Home or Self Care 06/21/2023 Travel 05/31/2023 11:30 AM CDT Office Visit [facility] [place] [address] [place] [address] Ori Adame MD Encounter for ultrasound to check growth (Primary Dx) 05/31/2023 10:45 AM CDT - 05/31/2023 11:59 PM CDT Hospital Encounter [facility] [place] [address] [place] [address] Ori Adame MD Encounter for ultrasound to [...] Upcoming Encounters Date Type Department Care Team ([facility] st Contact Info) Description 09/15/2023 2:30 PM CDT Office Visit [facility] [address] [place] [phone] Oleg Aparicio PA-C [address] [place], [place] [address] Health Maintenance Due Date Last Done Comments [...] CDT Pulmonary embolism affecting in second trimester [facility] COMPREHENSIVE SINGLE F/U Routine 06/21/2023 10:50 AM CDT Encounter for ultrasound to check growth [facility] US COMPREHENSIVE SINGLE F/U Routine 05/31/2023 11:40 [...] Roa MD LAB - BLOOD ORDERABL ES [facility] [address] 1st floor, [address] [place] [address], [facility] [phone] * Rupture of Membranes by ROM Plus [...] MD LAB - BODY FLUIDS OR DERABLES [facility] [address] 1[address] floor, [address] [place] [address], [facility] [phone] * (ABNORMAL) Wet preparation (07/17/2023 6:52 PM [...] MD LAB - MICRO GENERAL ORDERABLES LABORATORY [facility] [address] 1st floor, [address] [place] [address], [facility] [phone] * (ABNORMAL) CBC with platelets and differential (07/15/2023 9:31 PM CDT) Pathologist [facility] WBC Count 10.6 4.0 - [...] MD LAB - BLOOD ORDERABL ES LABORATORY [facility] [address] 1st floor, [address] [place] [address], [facility] [phone] * Adult Type and Screen (07/15/2023 9:31 PM CDT) ABO/RH(D) O POS 07/15/2023 7:26 PM CDT BLOOD BANK Antibody Screen Negative Negative 07/15/2023 7:26 PM CDT BLOOD BANK SPECIMEN EXPIRATION DATE [id number] 07/15/2023 7:26 PM CDT BLOOD BANK Blood STRUCTURE OF RIGHT UPPER LIMB / Unknown Venipuncture / Unknown 07/15/2023 9:31 PM CDT 07/15/2023 9:34 PM CDT Moira Roa MD LAB - BLOOD BANK MONISHA T ORDER Performing Organization Address City/[facility]/ZIP Co de Phone Number BLOOD BANK [address] [place] [address], [facility] * (ABNORMAL) Creatinine (07/15/2023 9:31 PM CDT) Creatinine 0.47(L) 0.51 - 0.95 mg/dL 07/15/2023 9:55 PM CDT LABORATORY GFR Estimate >90 >60 mL/min/1.7 3m2 07/15/2023 9:55 PM CDT LABORATORY Blood STRUCTURE OF RIGHT UPPER LIMB / Unknown Venipuncture / Unknown 07/15/2023 9:31 PM CDT 07/15/2023 9:34 PM CDT Moira Roa MD LAB - BLOOD ORDERABL ES LABORATORY [facility] Lab [address] 1st floor, [address] [place] [address], [facility] [phone] * (ABNORMAL) UA with Microscopic reflex to Culture (07/15/2023 6:45 PM CDT) Color Urine Straw Colorless, Straw, Light Yellow, Yellow 07/15/2023 7:04 PM CDT LABORATORY Appearance Urine Clear Clear 07/15/19 7:04 PM CDT LABORATORY Glucose Urine Negative Negative mg/dL 07/15/2023 7:04 PM CDT LABORATORY Bilirubin Urine Negative Negative 7:04 PM CDT LABORATORY Ketones Urine 40(A) Negative mg/dL 07/15/2023 7:04 PM CDT LABORATORY Specific [place] Urine 1.009 1.003 - 1.035 07/15/2023 7:04 [...] MD LAB - URINE ORDERABL ES LABORATORY [facility] Lab [address] 1st floor, [address] [place] [address], [place] [phone] * Chlamydia trachomatis/Neisseria gonorrhoeae by PCR (07/15/2023 6:23 PM CDT) Chlamydia Trachomatis Negative Negative 07/16/2023 12:02 PM CDT [facility] Comment: Negative for C. trachomatis rRNA by secretary of police mediated amplification. A negative result by secretary of police mediated amplification does not preclude the presence of infection because results are dependent on proper and adequate collection, absence of inhibitors and sufficient rRNA to be detected. Neisseria gonorrhoeae Negative Negative 07/16/2023 12:02 PM CDT [facility] Comment:Negative for N. gono rrhoeae rRNA by secretary of police mediated amplification. A negative result by secretary of police mediated amplification does not preclude the presence of C. trachomatis infection because results are dependent on proper and adequate collection, absence of inhibitors and sufficient rRNA to be detected. Urine VOIDED URINE SPECIMEN / Unknown Non-blood Collection / Unknown 07/15/2023 6:23 PM CDT 07/15/2023 6:30 PM CDT Moira Roa MD LAB - MICRO GENERAL ORDERABLES [facility] Inf. Diseases Diag. Lab [address] [place] [address] * Group B Streptococcus (External Result) (07/15/2023) [facility] Group B Streptococcus (External) Negative Negative EXTERNAL LAB Patient Reported LAB - HIM EXTERNAL R ESULT EXTERNAL LAB External Lab * Low Molecular Weight Heparin Anti Xa Level (06/22/2023 1:58 PM CDT) [facility] Anti Xa Low Molecular Weight 0.58 For [...] LAB - BLOOD ORDERABL ES [facility] [place] [facility] [address] [facility] [facility] [address], [address] [place] [address], [facility] * [facility] Comprehensive Single F/U (06/21/2023 10:50 AM [...] ? Study Date: ??06/21/2023 9:50am Pat. NO: ??[id number] ?Referring ??MD: TRISTA MELLO Site: ??[facility] ? Senior Audit Manager: Chanda Lazo [facility] : ??1995 ?Age: ?? 28 [...] 2 lb 12 ?oz EFW by ?Hadlock ([id number]) Head / Face / Neck Biometry: Geology Technician ? 4.9 ? mm CM ?5.5 ? mm ANATOMY ----- The following structures appear normal: Head / Neck ? Cranium. Head size. Head shape. Lateral ventricles. Midline falx. Cerebellum. Cisterna magna. Thalami. Face ? Lips. Profile. Nose. Heart / Thorax ?4-chamber view. RVOT view. LVOT view. 7-vloefe-dezpnod view. ? Diaphragm. Abdomen ? Stomach. Kidneys. [...] present but not detected Procedure Note Ori Admae MD - 06/21/2023 Comp Follow Up ----- Pat. Name: GABRIELLE [place] Study Date: 06/21/2023 9:50am Pat. NO: [id number] Referring MD: TRISTA MELLO Site: [facility] Senior Audit Manager: Chanda Lazo RDMS : 1995 Age: [...] 2 lb 12 oz EFW by Lilianlock ([id number]) Head / Face / Neck Biometry: Geology Technician 4.9 mm CM 5.5 mm ANATOMY ----- The following structures appear normal: Head / Neck Cranium. Head size. Head shape.Lateral ventricles. Midline falx. Cerebellum. Cisterna magna. Thalami. Face Lips. Profile. Nose. Heart / Thorax 4-chamber view. RVOT view. LVOT view.1-bruzhi-rodzqhy view. Diaphragm. Abdomen Stomach. Kidneys. Bladder. Spine [...] fluid volume appeared normal. Ori Adame MD [facility] US ORDERABL ES * HIV-1 Antibody (External Result) (01/26/2023) HIV 1&2 Antibody (External) Negative Nonreactive EXTERNAL LAB Patient Reported LAB - HIM EXTERNAL R ESULT EXTERNAL LAB External Lab from Last 3 Months or Most Recently Relevant to Health Maintenance Advance Directives For more information, please contact: [phone] * Full Code (Latest Code Status on File) Date Activated Date Inactivated Comments 07/15/2023 7:25 PM 07/18/2023 1:55 PM All basic an d advanced life-sustaining interventions are performed as appropriate Question Answer Comments Code status determined by: Discussion with parase nt/ legal decision maker Care Teams Foam Rubber Mixer Relationship Specialty Start Date End Date No Ref-Primary, Physician PCP - General 03/31/23 Oleg Aparicio, RUPAL [facility] [place], [place] [address] Assigned Cancer Care Provider 05/06/23 Ana Oreilly MD [address] [address] [place] [address] Assigned OBGYN Provider 05/06/23
--- OUTSIDE RECORDS SUMMARY | 2023-08-22 14:28 | XMS_ITS | Encounter Summary ---
Author Organization [place] Address [address] [facility] [place] [address] Care Team Providers Care Polish Maker Name Role Phone No Ref-Primary, Physician Primary Care Provider Oleg Aparicio PA-C Unavailable [phone] Ana Oreilly MD Unavailable [phone] Reason for Visit * Reason Onset Date Comments Call To Schedule Appointment 07/28/2023 Mariusz duque with Pt- per ptOleg advised to F/U one month after child is born. Will call back to schedule. Encounter Details Date Type Department Care Team (Late st Contact Info) Description 07/28/2023 Telephone [facility] [address] [place] [address] Resource, Ur Hemo Call To [...] Description 09/15/2023 2:30 PM CDT Office Visit [facility] [address] [place] [address] Oleg Aparicio, PABrightC [address] [place], [place] [phone] documented as of this encounter Visit Diagnoses Not on filedocumented in this encounter Care Teams Polish Maker Relationship Specialty Start Date End Date No Ref-Primary, Physician PCP - General 03/31/23 Oleg Aparicio, PALeeann [address] [place], [place] [phone] Assigned Cancer Care Provider 05/06/23 Ana Oreilly MD [address] [place], [place] [address] Assigned OBGYN Provider 05/06/23 documented as of this encounter
--- OUTSIDE RECORDS SUMMARY | 2023-08-22 14:29 | XMS_ITS | Encounter Summary ---
Author Organization [place] Address [address] [place] [address] Care Team Providers Care Illuminator Name Role Phone No Ref-Primary, Physician Primary Care Provider Oleg Aparicio PA-C Unavailable [phone] Ana Oreilly MD Unavailable [phone] Reason for Referral * Diagnostic Imaging Ultrasound (Routine) - Pending Review Specialty Diagnoses / Procedures Referred By Contsandy t Referred To Contact Radiology. Diagnoses Encounter for ultrasound to check growth Procedures [facility] US Comprehensive Single F/U Ori Adame MD [address] [place] [address] Referral ID Status Reason Start Date Expiration Date V isits Requested Visits Authorized [id number] Pending Review 05/31/2023 05/30/2024 1 1 Reason for Visit * Reason Comments Ultrasound RL2-reassess g rowth, EFW 15% Encounter Details Date Type Department Care Team (Late st Contact Info) Description 05/31/2023 11:30 AM CDT Office Visit [facility] [place] [address] [place] [address] Ori Adame MD [address] [place] [address] Encounter for ultrasound to check [...] for details of today's US at the [facility]. Ori Adame MD Maternal- Medicine documented in this encounter Nursing Notes * Mara Cheugn, MAC - 05/31/2023 11:30 AM CDT Patient reports good movement, denies contractions, leaking of fluid, or bleeding. Patient reports that it takes a little more to take a deep breath lately, thinks related to the . Patient denies SOB and is breathing comfortably and VSS. Encouraged patient to contact primary OB givenhistory of PE. SBAR given to [facility] (Dr. Adame), see their note in Epic. documented in this encounter Plan of Treatment Upcoming Encounters Date Type Department Care Team (Late st Contact Info) Description 09/15/2023 2:30 PM CDT Office Visit [facility] [address] [place] [phone] Oleg Aparicio PA-C [address] [place], [place] [address] documented as of this encounter Results * [facility] US Comprehensive Single F/U (06/21/2023 10:50 [...] ? Study Date: ??06/21/2023 9:50am Pat. NO: ??[id number] ?Referring ??: TRISTA MELLO Site: ??[facility] ? Drier Transfer Car Operator: Chanda LazoMELLY : ??1995 ?Age: ?? 28 [...] 2 lb 12 ?oz EFW by ?Hadlock ([id number]) Head / Face / Neck Biometry: Flight Test Data Acquisition Technician ? 4.9 ? mm CM ?5.5 ? mm ANATOMY ----- The following structures appear normal: Head / Neck ? Cranium. Head size. Head shape. Lateral ventricles. Midline falx. Cerebellum. Cisterna magna. Thalami. Face ? Lips. Profile. Nose. Heart / Thorax ?4-chamber view. RVOT view. LVOT view. 1-zsvwqi-hbphrax view. ? Diaphragm. Abdomen ? Stomach. Kidneys. [...] [place] Study Date: 06/21/2023 9:50am Pat. NO: [id number] Referring MD: TRISTA MELLO Site: [facility] Transfer Car Operator: Chanda Lazo RDMS : 1995 Age: [...] 2 lb 12 oz EFW by Hadlock ([id number]) Head / Face / Neck Biometry: Flight Test Data Acquisition Technician 4.9 mm CM 5.5 mm ANATOMY ----- The following structures appear normal: Head / Neck Cranium. Head size. Head shape.Lateral ventricles. Midline falx. Cerebellum. Cisterna magna. Thalami. Face Lips. Profile. Nose. Heart / Thorax 4-chamber view. RVOT view. LVOT view.1-wegiya-hspdqzk view. Diaphragm. Abdomen Stomach. Kidneys. Bladder. Spine [...] fluid volume appeared normal. Ori Adame MD [facility] US ORDERABL ES documented in this encounter Visit Diagnoses Diagnosis Encounter for ultrasound to check growth- Primary Encounter for ultrasound to check growth documented in this encounter Care Teams Illuminator Relationship Specialty Start Date End Date No Ref-Primary, Physician PCP - General 03/31/23 Oleg Aparicio, JULIAC [address] [place] [address] [address] [place] [address] Assigned Cancer Care Provider 05/06/23 Ana Oreilly MD [address] [place] [address] [address] [place] [address] Assigned OBGYN Provider 05/06/23 documented as of this encounter
--- OUTSIDE RECORDS SUMMARY | 2023-08-22 14:29 | XMS_ITS | Encounter Summary ---
Author Organization [place] Address [address] [place] [address]. [place] [address] Care Team Providers Care Crown Presser Name Role Phone No Ref-Primary, Physician Primary Care Provider Oleg Aparicio PA-C Unavailable [phone] Ana Oreilly MD Unavailable [phone] Encounter Details Date Type Department Care [...] 2:30 PM CDT Office Visit [facility] [address] [place] [address] Oleg Aparicio PA-C [address] [place] [address] documented as of this encounter Visit Diagnoses Not on filedocumented in this encounter Care Teams Crown Presser Relationship Specialty Start Date End Date No Ref-Primary, Physician PCP - General 03/31/23 Oleg Aparicio PA-C [address] [place] [address] [address] [place] [address] Assigned Cancer Care Provider 05/06/23 Ana Oreilly MD [address] [facility] [address] [place] [address] Assigned OBGYN Provider 05/06/23 documented as of this encounter
--- OUTSIDE RECORDS SUMMARY | 2023-08-22 14:29 | XMS_ITS | Encounter Summary ---
Author Organization [place] Address [address] [place] [address] Care Team Providers Care Secret Service Agent Name Role Phone No Ref-Primary, Physician Primary Care Provider Oleg Aparicio PA-C Unavailable [phone] Ana Oreilly MD Unavailable [phone] Reason for Visit * Reason Comments Deep Vein Thrombosis Encounter Details Date Type Department Care Team (Late st Contact Info) Description 07/04/2023 2:30 PM CDT Office Visit [facility] [address] [place] [address] Oleg Aparicio PA-C [address] [place] [address] Pulmonary embolism affecting in second [...] included. [facility] [address] [place] [address] Main: [phone], Patient seen at: [facility] at [address] [place] [address] Outpatient Visit Note: Patient: Gabrielle Mcmahon : 1995 DEBORAH: July 04, 2023 Location of this pattern chart writer at the time of this clinic visit was conducted: [facility]. Location [...] both lower extremities. 03/08/2023, she presented to [facility] emergency department with chest pain. CTA [...] the emergency department physician did call [facility] Interventional Radiology and consult them about [...] venous thromboembolism. Oleg Aparicio PA-C, MPAS Physician Freight Delivery Driver [facility] for [facility]otting [facility]. The longitudinal [...] Disorders [address] [place] [phone] Oleg pAaricio PA-C [address] [place] [address] Scheduled Orders Name Type Priority [...] incidental documented in this encounter Care Teams Secret Service Agent Relationship Specialty Start Date End Date No Ref-Primary, Physician PCP - General 03/31/23 Oleg Aparicio PA-C [address] [place], [place] [address] Assigned Cancer Care Provider 05/06/23 Ana Oreilly MD [address] [place], [place] [address] Assigned OBGYN Provider 05/06/23 documented as of this encounter
--- OUTSIDE RECORDS SUMMARY | 2023-08-22 14:29 | XMS_ITS | Clinical Summary ---
Author Organization [facility] Address [place], [place] [address] Care Team Providers Care Regulatory Services Consultant Name Role Phone Marybeth Andrew MD Primary Care Provider + Allergies No known active allergies Medications No known medications Encounters Date Type Department Care Team Description 08/09/2023 Lab Requisition [facility] [phone] Jasmin Barrow MD from Last 3 Months [...] EXAM PLACENTA Routine 08/09/2023 11:19 AM CDT CANE SPLICER THIN PREP PAP SCREEN IMAGED Routine 12/11/2020 2:40 PM CDT from Last 3 Months or Most Recently Relevant to Health Maintenance Results * LAB TRACKING EVENT (08/09/2023 11:19 AM CDT) Other (Other) Client Collect / Unknown 08/09/2023 11:19 AM CDT 08/09/2023 10:20 PM CDT Jasmin Barrow MD LAB BILL O NLY [facility] LABORATORY-CENTRAL LABORATORY [address] [place] [id number], * PATH TISSUE EXAM PLACENTA (08/09/2023 11:19 AM CDT) Case Report Pathology Report ?Case: [id number] ? Authorizing Provider: ??Jasmin Barrow ??Collected: ? 08/09/2023 1119 ? MD Daja ? Ordering Location: ? [facility] CENTRAL LAB ?Received: ?08/10/2023 0727 ? Pathologist: ? Dorothy Francis MD ? Specimen: ?Placenta ? 08/11/2023 12:40 PM CDT [facility] LABORATORY-C ENTRAL LABORATORY Final Diagnosis A) PLACENTA, [...] 2. ??See comment 08/11/2023 12:40 PM CDT [place] LABORATORY-C ENTRAL LABORATORY Comment While subtle, the [...] of the placenta. 08/11/2023 12:40 PM CDT [place] LABORATORY-C ENTRAL LABORATORY Clinical Information Maternal history of bilateral pulmonary embolism. Liveborn vaginal delivery 36-2/7 weeks, 2800 g female . G2, P2. 08/11/2023 12:40 PM CDT [place] LABORATORY-C ENTRAL LABORATORY Gross Description A) Received [...] the maternal surface. ??No lesion is identified. Medical Information Officer sections: 1. ??Umbilical cord and membranes with insertion 2. ??Full-thickness with umbilical cord insertion 3-4. ??2 full-thickness 5. ??Maternal surface blood clot Placed in formalin at 9:55 AM on 08/10/2023 DPL 08/10/2023 08/11/2023 12:40 PM CDT [facility] LAB[facility] Microscopic Description The final diagnosis is based on microscopic examination of appropriate sections of all specimens. 08/11/2023 12:40 PM CDT [facility] Additional Information Interpreted at [facility], Central Laboratory - [address] [place] [address] [address] [address] 08/11/2023 12:40 PM CDT [facility] LAB[facility] Tissue SPECIMEN FROM PLACENTA / Unknown 08/09/2023 11:19 AM CDT 08/10/2023 7:27 AM CDT Jasmin Barrow MD PATHOLOGY/ CYTOLOGY [facility]-CENTRAL LABORATORY [address] [place] [address], * CANE SPLICER THIN PREP PAP SCREEN IMAGED (12/11/2020 2:40 PM CDT) Case Report Gynecologic Cytology Report ? Case: [id number] ? Authorizing Provider: ??Elizabeth Philip ?Collected: ? 12/11/2020 1440 ? MD Ofelia ? Ordering Location: ? [facility] ?Received: ?12/15/2020 0858 ? First Screen: ?[place], Harriet ? Specimen: ?CANE SPLICER ThinPrep Vial Screening, Cervical/Vaginal ? 12/26/2020 2:03 PM CDT [facility] LABORATORY-C ENTRAL LABORATORY INTERPRETATION/ RESULT NEGATIVE FOR INTRAEPITHELIAL LESION OR MALIGNANCY (NIL) (none) 12/26/2020 2:03 PM CDT [facility] LABORATORY- ENTRAL LABORATORY IMEN ADEQUACY Satisfactory for evaluation No endocervical component seen 12/26/2020 2:03 PM CDT [facility] LABORATORY- ENTRAL LABORATORY HPV REQUEST HPV if ASCUS 12/26/2020 2:03 PM CDT [facility] LABORATORY-C ENTRAL LABORATORY Date of LMP 11/04/2020 12/26/2020 2:03 PM CDT [facility]- ENTRAL LABORATORY Menstrual Status 12/26/2020 2:03 PM CDT [facility] LABORATORY-C ENTRAL LABORATORY Additional Information 12/26/2020 2:03 PM CDT [facility]- ENTRAL LABORATORY Comment: Interpreted at [facility], Central Laboratory - [address] [place] [address] Automated Review Successful 12/26/2020 2:03 PM CDT [facility] LABORATORY-C ENTRAL LABORATORY Comment:Specimen processed s uccessfully by automated online merchandising specialist device, ThinPrep Imaging System, [employer] Note The pap test is a [...] and malignant lesions. 12/26/2020 2:03 PM CDT [email or web address] Other (Cervical/Vagina l) 12/11/2020 2:40 PM CDT 12/15/2020 8:58 AM CDT Elizabeth Philip MD PATHOLOGY/ CYTOLOGY [email or web address]AL LABORATORY [address] [place] [address], from Last 3 Months or Most Recently Relevant to Health Maintenance Care Teams Regulatory Services Consultant Relationship Specialty Start Date End Date Marybeth Andrew MD [address] [place] [address] PCP - General Family Practice 08/20/22
--- OUTSIDE RECORDS SUMMARY | 2023-08-22 14:29 | XMS_ITS ---
Author Organization [facility] Address [address] [place] [address] Care Team Providers Care Methods Study Analyst Name Role Phone Unavailable Unavailable Unavailable Surgery Details Not on file Complications Check Surgery Details section. Procedure Estimated Blood Loss Check Surgery Details section. Procedure Findings Check Surgery Details section. Procedure Specimens Taken Check Surgery Details section.
--- OUTSIDE RECORDS SUMMARY | 2023-08-22 14:29 | XMS_ITS | Encounter Summary ---
Author Organization Lane Address [address] [place] [address] Care Team Providers Care Construction Job Titles Name Role Phone No Ref-Primary, Physician Primary Care Provider Oleg Aparicio PA-C Unavailable [phone] Ana Oreilly MD Unavailable [phone] Reason for Referral * Diagnostic Imaging Ultrasound (Routine) - Pending Review Specialty Diagnoses / Procedures Referred By Contac t Referred To Contact Radiology. Diagnoses Encounter for ultrasound to check growth Procedures [facility] US Comprehensive Single F/U Ori Adame MD [address] [facility] [employer] [address] [address] Referral ID Status Reason Start Date Expiration Date V isits Requested Visits Authorized [id number] Pending Review 05/31/2023 05/30/2024 1 1 Reason for Visit * Diagnostic Imaging Ultrasound (Routine) - Pending Review Specialty Diagnoses / Procedures Referred By Contac t Referred To Contact Radiology. Diagnoses Encounter for ultrasound to check growth Procedures [facility] US Comprehensive Single F/U Ori Adame MD 606 [facility] [employer] [address] [address] Referral ID Status Reason Start Date Expiration Date V isits Requested Visits Authorized [id number] Pending Review 05/31/2023 05/30/2024 1 1 Encounter Details Date Type Department Care Team (Latest Contact Info) Description 06/21/2023 9:30 AM CDT - 06/21/2023 11:59 PM CDT Hospital Encounter [facility] [place] [address] [place] [address] Ori Adame MD [address] [place], [place] [address] Encounter for ultrasound to check growth Discharge [...] Disorders [address] [place] [address] Oleg Aparicio PA-C [address] [place], [place] [address] documented as of this encounter Procedures Procedure Name Priority Date/Time Associated Diagnosis Comments [facility] US COMPREHENSIVE SINGLE F/U Routine 06/21/2023 10:50 AM CDT Encounter for ultrasound to check growth documented in this encounter Results * [facility] US Comprehensive Single F/U (06/21/2023 [...] ? Study Date: ??06/21/2023 9:50am Pat. NO: ??[id number] ?Referring ??: TRISTA MELLO Site: ??[facility] ? Vineyard Worker: Chanda Lazo RDMS : ??1995 ?Age: [...] 2 lb 12 ?oz EFW by ?Hadlock ([id number]) Head / Face / Neck Biometry: Insurance Verification Representative ? 4.9 ? mm CM ?5.5 ? mm ANATOMY ----- The following structures appear normal: Head / Neck ? Cranium. Head size. Head shape. Lateral ventricles. Midline falx. Cerebellum. Cisterna magna. Thalami. Face ? Lips. Profile. Nose. Heart / Thorax ?4-chamber view. RVOT view. LVOT view. 2-ijjsrd-ybumnjm view. ? Diaphragm. Abdomen ? Stomach. Kidneys. [...] [place] Study Date: 06/21/2023 9:50am Pat. NO: [id number] Referring MD: TRISTA MELLO Site: [facility] Worker: Chanda Lazo RDMS : 1995 Age: [...] 2 lb 12 oz EFW by Hadlock ([id number]) Head / Face / Neck Biometry: Insurance Verification Representative 4.9 mm CM 5.5 mm ANATOMY ----- The following structures appear normal: Head / Neck Cranium. Head size. Head shape.Lateral ventricles. Midline falx. Cerebellum. Cisterna magna. Thalami. Face Lips. Profile. Nose. Heart / Thorax 4-chamber view. RVOT view. LVOT view.2-wdgqad-yngsian view. Diaphragm. Abdomen Stomach. Kidneys. Bladder. Spine [...] The amniotic fluid volume appeared normal. Ori Adaem MD [facility] ORDERABL ES documented in this encounter Visit Diagnoses Diagnosis Encounter for ultrasound to check growth documented in this encounter Care Teams Construction Job Titles Relationship Specialty Start Date End Date No Ref-Primary, Physician PCP - General 03/31/23 Oleg Aparicio PA-C [address] [place] [address] Assigned Cancer Care Provider 05/06/23 Ana Oreilly MD [address] [place] [address] Assigned OBGYN Provider 05/06/23 documented as of this encounter
--- OUTSIDE RECORDS SUMMARY | 2023-08-22 14:29 | XMS_ITS | Encounter Summary ---
Author Organization [place] Address [address] [place] [address]. [place] [address] Care Team Providers Care Cellar Worker Name Role Phone No Ref-Primary, Physician Primary Care Provider Oleg Aparicio PA-C Unavailable [phone] Ana Oreilyl MD Unavailable [phone] Encounter Details Date Type Department Care [...] Description 09/15/2023 2:30 PM CDT Office Visit [facility] [address] [place] [address] Oleg Aparicio PA-C [address] [place] [address] documented as of this encounter Visit Diagnoses Not on filedocumented in this encounter Care Teams Cellar Worker Relationship Specialty Start Date End Date No Ref-Primary, Physician PCP - General 03/31/23 Oleg Aparicio PA-C [address] [place] [address] [address] [place] [address] Assigned Cancer Care Provider 05/06/23 Ana Oreilly MD [address] [facility] [address] [place] [address] Assigned OBGYN Provider 05/06/23 documented as of this encounter
--- OUTSIDE RECORDS SUMMARY | 2023-08-22 14:29 | XMS_ITS | Encounter Summary ---
Author Organization [place] Address [address] [facility] [place] [address] Care Team Providers Care Asparagus Cutter Name Role Phone No Ref-Primary, Physician Primary Care Provider Oleg Aparicio PA-C Unavailable [phone] Ana Oreilly MD Unavailable [phone] Encounter Details Date Type Department Care Team (Late st Contact Info) Description 06/22/2023 2:[address] [facility] [address] [place] [address] Pulmonary embolism affecting in second [...] 2:30 PM CDT Office Visit [facility] [address] [place] [phone] Oleg Aparicio PA-C [address] [place], [place] [address] documented as of this encounter Procedures Procedure [...] LAB - BLOOD ORDERABL ES [facility] LABORAT[facility] Core Lab [address] [facility], [address] [id number] documented in this encounter Visit Diagnoses Diagnosis Pulmonary embolism affecting in second trimester documented in this encounter Care Teams Asparagus Cutter Relationship Specialty Start Date End Date No Ref-Primary, Physician PCP - General 03/31/23 Oleg Aparicio PA-C [address] [place] [address] Assigned Cancer Care Provider 05/06/23 Ana Oreilly MD [address] [place] [address] Assigned OBGYN Provider 05/06/23 documented as of this encounter
--- OUTSIDE RECORDS SUMMARY | 2023-08-22 14:29 | XMS_ITS | Encounter Summary ---
Author Organization [place] Address [address] [place] [address]. [place] [address] Care Team Providers Care Weatherization Specialist Name Role Phone No Ref-Primary, Physician Primary Care Provider Oleg Aparicio PA-C Unavailable [phone] Ana Oreilly MD Unavailable [phone] Encounter Details Date Type Department Care Team (Late st Contact Info) Description 06/22/2023 [facility] [address] [place] [address] Oleg Aparicio PA-C [address] [place] [address] 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 Tobacco Use Types [...] Lovenox at 8:56 AM. She needs to picker refills but wants to make sure she is on the correct dose as she recently started her third trimester. Patient verbalized understanding and will go to lab. Sandie White RN, BSN, PCCN Nurse Clinician [facility] [address] [place] [address] Office, direct: [phone] Main office number: [phone] Pronouns: She, her, hers documented in this encounter Plan of Treatment Upcoming Encounters Date Type Department Care Team (Late st Contact Info) Description 09/15/2023 2:30 PM CDT Office Visit [facility] [address] [place] [phone] Oleg Aparicio PA-C [address] [place] [phone] documented as of this encounter Visit Diagnoses Not on filedocumented in this encounter Care Teams Weatherization Specialist Relationship Specialty Start Date End Date No Ref-Primary, Physician PCP - General 03/31/23 Oleg Aparicio PA-C [address] [place] [id number] Assigned Cancer Care Provider 05/06/23 Ana Oreilly MD [address] [address] Assigned OBGYN Provider 05/06/23 documented as of this encounter
--- OUTSIDE RECORDS SUMMARY | 2023-08-22 14:29 | XMS_ITS | Clinical Summary ---
Author Organization [facility] Address [address] [place] [address] Care Team Providers Care Railroad Brakeman Name Role Phone Elsewhere, Pcp Primary Care Provider Unavailabl e Source Comments Patient records contain information from all sites at [facility]. For routine questions regarding patient records, call [phone] during business hours, M-F 8:00 AM - 5:00 PM Central Time. Record requests for emergency care only can be directed to [phone] at any time.[facility] Allergies No known active allergies Medications Medication Sig Dispensed Refills Start Date End Date Status [id number]-Ej-[id number]-FA (VINATE ONE) 60 mg iron-1 mg per [...] How often do you attend chur or amish services? More than 4 times per year [...] and heating? Not hard at all 02/21/2022 [facility] [place] of Occupat ional Health - Occupational Stress [...] place to sleep or slept in a senior living (including now)? No 02/21/2022 Nutrition Answer Date [...] Sex Assigned at Female 02/21/2022 11:00 AM DRY CELL SEALER Gender Identity Female 02/21/2022 11:00 AM DRY CELL SEALER Sexual Orientation Straight 02/21/2022 11 :00 AM DRY CELL SEALER Last Filed Vital Signs Vital Sign Reading Time Taken Comments Blood Pressure - - Pulse - - Temperature 36.6 ??C (97.9 ??F) 02/24/2022 12:[address] Respiratory Rate - - Oxygen Saturation - - Inhaled Oxygen Concentration - - Weight 72.4 kg (159 lb 9.8 oz) 02/24/2022 12:38 PM DRY CELL SEALER Height 169.7 cm (5' 6.81) 02/24/2022 12:[address] Body Mass Index 25.14 02/24/2022 12:38 PM DRY CELL SEALER Plan of Treatment Health Maintenance Due Date Last Done Comments Cervical Cancer Screening 1997 HIV Screening 1997 Hepatitis C Screening 1997 HPV Vaccines (1 - 3-dose series) 2012 DTaP,Tdap,and Td Vaccines (1 - Tdap) 2016 Hepatitis B Vaccines (1 of 3 - 19+ 3-dose series) 2016 COVID-19 Vaccine (1 - 2022-2 4 season) 2022 Depression Screening (Annual PHQ-2) 02/21/2023 Influenza Vaccine (#1) 2023 Pneumococcal vaccine (0-64 years) Aged Out No longer eligible based on patient's age to complete this topic Care Teams Railroad Brakeman Relationship Specialty Start Date End Date Elsewhere, Pcp PCP - General Internal Medicine 02/24/22
--- OUTSIDE RECORDS SUMMARY | 2023-08-22 14:29 | XMS_ITS | Referral Summary ---
Author Organization [facility] Address [address] [place] [address] Care Team Providers Care Community Mental Health Worker Name Role Phone Elsewhere, Pcp Primary Care Provider Unavailabl e Source Comments Patient records contain information from all sites at [facility]. For routine questions regarding patient records, call [phone] during business hours, M-F 8:00 AM - 5:00 PM Central Time. Record requests for emergency care only can be directed to [phone] at any time.[facility] Allergies No known active allergies Medications Medication Sig Dispensed Refills Start Date End Date Status gfejett-Ce-reev-FA (VINATE ONE) 60 mg iron-1 mg per [...] How often do you attend chur or quaker services? More than 4 times per year [...] and heating? Not hard at all 02/21/2022 [facility] of Occupat ional Health - [...] place to sleep or slept in a mcc (including now)? No 02/21/2022 Nutrition Answer Date [...] Sex Assigned at Female 02/21/2022 11:00 AM BALLOON ARTIST Gender Identity Female 02/21/2022 11:00 AM BALLOON ARTIST Sexual Orientation Straight 02/21/2022 11 :00 AM BALLOON ARTIST Last Filed Vital Signs Vital Sign Reading Time Taken Comments Blood Pressure - - Pulse - - Temperature 36.6 ??C (97.9 ??F) 02/24/2022 12:[address] Respiratory Rate - - Oxygen Saturation - - Inhaled Oxygen Concentration - - Weight 72.4 kg (159 lb 9.8 oz) 02/24/2022 12:38 PM BALLOON ARTIST Height 169.7 cm (5' 6.81) 02/24/2022 12:[address] Body Mass Index 25.14 02/24/2022 12:38 PM BALLOON ARTIST Plan of Treatment Not on file Care Teams Community Mental Health Worker Relationship Specialty Start Date End Date Elsewhere, Pcp PCP - General Internal Medicine 02/24/22
--- OUTSIDE RECORDS SUMMARY | 2023-08-22 14:29 | XMS_ITS | Encounter Summary ---
Author Organization [place] Address [address] [place] [address]. [place] [address] Care Team Providers Care Social Professionals Name Role Phone No Ref-Primary, Physician Primary Care Provider Oleg Aparicio PA-C Unavailable [phone] Ana Oreilly MD Unavailable [phone] Encounter Details Date Type Department Care Team (Late st Contact Info) Description 04/28/2023 [facility] Medical Advice [facility] [address] [place] [phone] Carmen Pollack RN 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 Tobacco Use [...] Description 09/15/2023 2:30 PM CDT Office Visit [facility] [address] [place] [address] [address] [place] [address] Oleg Aparicio PA-C [address] [place] [address] [address] [place], [place] [phone] documented as of this encounter Visit Diagnoses Not on filedocumented in this encounter Care Teams Social Professionals Relationship Specialty Start Date End Date No Ref-Primary, Physician PCP - General 03/31/23 Oleg Aparicio PA-C [address] [place] [address] [address] [place] [address] Assigned Cancer Care Provider 05/06/23 Ana Oreilly MD [address] [address] [place] [address] Assigned OBGYN Provider 05/06/23 documented as of this encounter
--- OUTSIDE RECORDS SUMMARY | 2023-08-22 14:29 | XMS_ITS | Encounter Summary ---
Author Organization [place] Address [address] [place] [address] Care Team Providers Care Road Train Driver Name Role Phone No Ref-Primary, Physician Primary Care Provider Oleg Aparicio PA-C Unavailable [phone] Ana Oreilly MD Unavailable [phone] Reason for Referral * Diagnostic Imaging Ultrasound (Routine) - Pending Review Specialty Diagnoses / Procedures Referred By Contac t Referred To Contact Radiology. Diagnoses related condition, antepartum Procedures [facility] US Comprehensive Single F/U Ori Adame MD 606 [facility] [address] [address] Referral ID Status Reason Start Date Expiration Date V isits Requested Visits Authorized [id number] Pending Review 05/10/2023 05/09/2024 1 1 Reason for Visit * Diagnostic Imaging Ultrasound (Routine) - Pending Review Specialty Diagnoses / Procedures Referred By Contac t Referred To Contact Radiology. Diagnoses related condition, antepartum Procedures [facility] US Comprehensive Single F/U Ori Adame MD [address] [address] Referral ID Status Reason Start Date Expiration Date V isits Requested Visits Authorized [id number] Pending Review 05/10/2023 05/09/2024 1 1 Encounter Details Date Type Department Care Team (Latest Contact Info) Description 05/31/2023 10:45 AM CDT - 05/31/2023 11:59 PM CDT Hospital Encounter [facility] [place] [address] [place] [address] Ori Adame MD [address] [place], [place] [address] Encounter for ultrasound to assess growth Discharge [...] Disorders [address] [place] [phone] Oleg Aparicio PA-C [address] [place], [place] [address] documented as of this encounter Procedures Procedure Name Priority Date/Time Associated Diagnosis Comments [facility] US COMPREHENSIVE SINGLE F/U Routine 05/31/2023 11:40 AM CDT Encounter for ultrasound to assess growth documented in this encounter Results * [facility] US Comprehensive Single F/U (05/31/2023 11:40 [...] ? Study Date: ??05/31/2023 10:49am Pat. NO: ??[id number] ?Referring ??: TRISTA MELLO Site: ??[facility] ? Crna: Chanda Lazo RDMS : ??1995 ?Age: ?? [...] lb 13 ? oz EFW by ?Hadlock ([id number]) Head / Face / Neck Biometry: Development Associate ? 5.7 ? mm CM ?7.7 ? mm ANATOMY ----- The following structures appear normal: Head / Neck ? Cranium. Head size. Head shape. Lateral ventricles. Midline falx. Cavum septi pellucidi. Cerebellum. Cisterna magna. Thalami. Heart / Thorax ?4-chamber view. RVOT view. LVOT view. 7-woxqok-kxizblk view. ? Diaphragm. Abdomen ? Stomach. Kidneys. [...] [place] Study Date: 05/31/2023 10:49am Pat. NO: [id number] Referring MD: TRISTA MELLO Site: [facility] Crna: Chanda Lazo RDMS : 1995 Age: 28 [...] 1 lb 13 oz EFW by Hadlock ([id number]) Head / Face / Neck Biometry: Development Associate 5.7 mm CM 7.7 mm ANATOMY ----- The following structures appear normal: Head / Neck Cranium. Head size. Head shape.Lateral ventricles. Midline falx. Cavum septi pellucidi. Cerebellum.Cisterna magna. Thalami. Heart / Thorax 4-chamber view. RVOT view. LVOT view.9-curdav-qbdarzc view. Diaphragm. Abdomen Stomach. Kidneys. Bladder. Spine [...] growth documented in this encounter Care Teams Road Train Driver Relationship Specialty Start Date End Date No Ref-Primary, Physician PCP - General 03/31/23 Oleg Aparicio, JULIAC [address] [place], [place] [address] Assigned Cancer Care Provider 05/06/23 Ana Oreilly MD [address] [place] [address] Assigned OBGYN Provider 05/06/23 documented as of this encounter
--- OUTSIDE RECORDS SUMMARY | 2023-08-22 14:29 | XMS_ITS | Encounter Summary ---
Author Organization [place] Address [address] [place] [address] Care Team Providers Care Kardex Clerk Name Role Phone No Ref-Primary, Physician Primary Care Provider Oleg Aparicio PA-C Unavailable [phone] Ana Oreilly MD Unavailable [phone] Reason for Visit * Reason Comments Ultrasound [id number] Encounter Details Date Type Department Care Team (Late st Contact Info) Description 06/21/2023 10:00 AM CDT Office Visit [facility] [place] [address] [place] [address] Ori Adame MD [address] [place] [address] Encounter for ultrasound to check [...] AM CDT Patient reports good movement, reports [place] contractions, denies leaking of fluid, or bleeding. SBAR given to [facility] MD, see their note in Epic. documented in this encounter Plan of Treatment Upcoming Encounters Date Type Department Care Team (Late st Contact Info) Description 09/15/2023 2:30 PM CDT Office Visit [facility] [address] [place] [address] Oleg Aparicio PA-C [address] [place], [place] [id number] documented as of this encounter Visit Diagnoses Diagnosis Encounter for ultrasound to check growth- Primary documented in this encounter Care Teams Kardex Clerk Relationship Specialty Start Date End Date No Ref-Primary, Physician PCP - General 03/31/23 Oleg Aparicio PA-C [address] [place], [place] [address] Assigned Cancer Care Provider 05/06/23 Ana Oreilly MD [address] [place], [place] [id number] Assigned OBGYN Provider 05/06/23 documented as of this encounter
--- OUTSIDE RECORDS SUMMARY | 2023-08-22 14:29 | XMS_ITS | Encounter Summary ---
Author Organization [place] Address [address] [place] [address]. [place] [address] Care Team Providers Care Heel Sewer Name Role Phone No Ref-Primary, Physician Primary Care Provider Oleg Aparicio PA-C Unavailable [phone] Ana Oreilly MD Unavailable [phone] Encounter Details Date Type Department Care [...] Description 09/15/2023 2:30 PM CDT Office Visit [facility] [address] [place] [address] Oleg Aparicio PA-C [address] [place] [address] documented as of this encounter Visit Diagnoses Not on filedocumented in this encounter Care Teams Heel Sewer Relationship Specialty Start Date End Date No Ref-Primary, Physician PCP - General 03/31/23 Oleg Aparicio PA-C [address] [place] [address] [address] [place] [address] Assigned Cancer Care Provider 05/06/23 Ana Oreilly MD [address] [facility] [address] [place] [address] Assigned OBGYN Provider 05/06/23 documented as of this encounter
[2023-08-22 19:10] LABS: Chlamydia DNA Amplified* NOT DETECTED (No Detected); GC DNA Amplified* NOT DETECTED (No Detected)
== END 2023-08-22 14:26 | disposition home or self-care (01) ==
LOC: NFLDREF 14:26
PROVIDERS: PCP Family Medicine; Visit Provider Obstetrics & Gynecology
DX: N89.8 Other specified noninflammatory disorders of vagina (principal); Z11.3 Encounter for screening for infections with a predominantly sexual mode of transmission
CPT/HCPCS: 85520; 87086; 87491; 87591

== ENCOUNTER 2023-08-24 09:21 | Emergency (ER) | payer BC, SELFPAY ==
[2023-08-24 09:27] VITALS: BP 116/69; PULSE 81; RESP 16; O2SAT 98; BMI 24.6
--- NOTE | 2023-08-24 09:45 | ED.GENADULT ---
HPI - General Adult General Date Seen: 08/24/23 Chief complaint: Chest Pain Stated complaint: Chest pain Time Seen by Provider: 08/24/23 09:45 History of Present Illness HPI narrative: This is a 28-year-old [id number] presenting to the ER today with left-sided chest discomfort, left calf pain. She has a history of a PE Diagnosed in February while she was so she was treated with Lovenox through her .and has been on Lovenox since February. she had a vaginal delivery on August 08 (baby was 36 weeks pre term but otherwise doing well). was seen in the ER 1 week on 08/17 for increasing vaginal bleeding and pelvic cramping. Labs showed WBC 4.2, hemoglobin 13.0, platelet 240, sodium 141, potassium 4.0, chloride 106, bicarb 29, BUN 10, creatinine 0.5, glucose 91, LFTs were normal. CRP was normal. Urinalysis is abnormal with greater than 100 RBC and WBC also squamous epithelial cells. Pelvic ultrasound shows and finding suspicious for retained products of conception. Ob/ development system efficiency manager was consulted. Considered possible D and C but decided to hold off due to bleeding risk with Lovenox. She was put on 24 hour course ofMethergine. she saw Dr. Moreno in the OB clinic follow-up yesterday. bleeding and been getting data warehousing engineer. Previous pelvic pain is improving. She had an exam yesterday in the OB clinic that was normal. WBC 4.3, hemoglobin 12.9. Plan was to continue Lovenox as per hematology recommendations. She notes that since last week she has been having some discomfort in her left upper chest just lateral to her sternum below the clavicle and radiating downward into her chest from there. It is reminiscent of when she had her blood clots last February. She does not recall a specific time when it started. It has been there continuously since some day last week. She is not coughing. She is mildly short of breath. No fever or chills. No abdominal pain. No back pain. It does not hurt to breathe. No new swelling in her legs. Her previous vaginal bleeding is getting data warehousing engineer and data warehousing engineer. No abdominal pain. She is concerned that she may have another blood clot, but she has been consistently taking her Lovenox and just wants to be sure it is okay. She had mentioned these pains to her OB doctor during their 2 week check on Tuesday, and was recommended to come to the ER to be evaluated but she wanted to wait a couple more days to see if we get better on its own. It is not gotten better so she came to the ER today. The pain is not getting worse either. Related Data Home Medications ?Medication ?Instructions ?Recorded ?Confirmed vitamin#30 30 mg iron-10 1 cap PO DAILY 05/26/22 08/24/23 mg iron-folic acid 1 mg-omg3 capsule enoxaparin 100 mg/mL subcutaneous 100 mg subcut Q12H 06/08/23 08/24/23 syringe Previous Rx's ?Medication ?Instructions ?Recorded hydrocortisone 2.5 % topical cream 1 applic KS BID-QID PRN 01/26/23 with perineal applicator hemorrhoids #30 grams (Anusol-HC) acetaminophen 500 mg tablet 1,000 mg (2 x 500 mg) PO Q6H PRN 08/11/23 #0 tabs docusate sodium 100 mg capsule 100 mg PO DAILY #90 caps 08/11/23 ibuprofen 600 mg tablet 600 mg PO Q6H PRN #60 tabs 08/11/23 Allergies Allergy/AdvReac Type Severity Reaction Status Date / Time No Known Allergies Allergy Unknown Verified 08/24/23 09:26 [facility] Medical History labor ?O60.00 - labor without delivery, unspecified trimester (ICD-10) Low back pain ?M54.50 - Low back pain, unspecified (ICD-10) History of delivery ?Z87.51 - Personal history of pre-term labor (ICD-10) Obstetric vaginal laceration with second degree perineal laceration ?O70.1 - Second degree perineal laceration during delivery (ICD-10) Inflamed external hemorrhoid ?K64.4 - Residual hemorrhoidal skin tags (ICD-10) Chest wall pain ?R07.89 - Other chest pain (ICD-10) Surgical History History of third molar tooth extraction (2015) ?K08.409 - Partial loss of teeth, unspecified cause, unspecified class (ICD-10) Family History Mother Hx of blood clots Family/Other Heart disease Breast cancer, Onset Age: 90 Paternal Grandmother Pulmonary hypertension Diabetes Paternal Grandfather Lung cancer Diabetes 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: , 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, 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 Very rare alcohol use Exercise 3 times a week, HIIT 30 minutes What is your current living situation?: I presently have a place to live Problems where you live: no known problems Problems where you live details: N/A In the past 12 months, utilities in danger of being shut off: no In past 12 months, lack of transportation kept you from medical appts, meetings, work, or getting things needed for daily living: no In the past 12 mos, have been you worried that your food would run out before you had money to buy more?: never true In the past 12 mos, the food you bought just didn't last and you didn't have money to buy more?: never true Smoking Status: Former smoker Do you use any of these nicotine containing products: None Second hand tobacco smoke exposure: No How often do you have a drink containing alcohol: never How often do you have six or more drinks on one occasion: Never AUDIT-C Alcohol total score: 0 Non-prescribed substance use: denies use How often does anyone, including family, friends and others, physically hurt you: never How often does anyone, including family, friends and others, insult or talk down to you: never How often does anyone, including family, friends and others, threaten you with harm: never How often does anyone, including family, friends and others, scream or curse at you: never Little interest or pleasure in doing things: not at all Feeling down, depressed, or hopeless: not at all service: No Exam Narrative: Exam Narrative: Constitutional: Appears well-developed and well-nourished. Alert. Conversant. Non toxic. HENT: Head: Atraumatic. Nose: Nose normal. Mouth/Throat: Oral mucosa is clear and moist. no trismus. Pharynx normal. Eyes: Conjunctivae normal. EOM normal. Pupils equal, round, and reactive to light. No scleral icterus. Neck: Normal range of motion. Neck supple. No tracheal deviation present. No JVD Cardiovascular: Normal rate, regular rhythm. No gallop. No friction rub. No murmur heard. Symmetric radial and PT artery pulses Pulmonary/Chest: Effort normal. No stridor. No respiratory distress. No wheezes. No rales. No rhonchi . No tenderness. Abdominal: Soft. Bowel sounds normal. No distension. No mass. No tenderness. No HSM. No rebound. No guarding. Musculoskeletal: RUE: Normal range of motion. No tenderness. No deformity LUE: Normal range of motion. No tenderness. No deformity RLE: Normal range of motion. No edema. No tenderness. No deformity LLE: Normal range of motion. No edema. No tenderness. No deformity Neurological: Alert and oriented to person, place, and time. Normal strength. CN II-VII intact. No sensory deficit. GCS eye subscore is 4. GCS verbal subscore is 5. GCS motor subscore is 6. Normal coordination Skin: Skin is warm and dry. No rash noted. No pallor. Normal capillary refill. Psychiatric: Normal mood. Normal affect. Const: Vital Signs, click to edit/add: Vital Signs - 24 hr 08/24/23 09:27 Pulse Rate [Pulse Oximeter] 81 Respiratory Rate 16 Blood Pressure [Ri t Upper Arm] 116/69 Pulse Oximetry 98 Oxygen Delivery Me thod Room Air Course Vital Signs Vital signs: Initial Vital Signs Pulse Rate 81 08/24/23 09:27 Respiratory Rate 16 08/24/23 09:27 Blood Pressure 116/69 08/24/23 09:27 Blood Pressure Mean 84 08/24/23 09:27 Blood Pressure Position Sitting 08/24/23 09:27 Pulse Oximetry 98 08/24/23 09:27 Oxygen Delivery Method Room Air 08/24/23 09:27 Vital Signs Pulse Rate 81 08/24/23 09:27 Respiratory Rate 16 08/24/23 09:27 Blood Pressure 116/69 08/24/23 09:27 Pulse Oximetry 98 08/24/23 09:27 Oxygen Delivery Method Room Air 08/24/23 09:27 Pulse Rate 81 08/24/23 09:27 Respiratory Rate 16 08/24/23 09:27 Blood Pressure 116/69 08/24/23 09:27 Pulse Oximetry 98 08/24/23 09:27 Oxygen Delivery Method Room Air 08/24/23 09:27 Medical Decision Making [facility] Narrative Medical decision making narrative: This patient presents to the ER today for evaluation of left upper anterior chest discomfort ongoing for the past several days. Differential was broad. This patient has a history of PE and is currently anticoagulated on Lovenox. With recent delivery, she would be high risk for recurrent PE. CT scan of her chest is obtained and fortunately looks good. No signs of recurrent pulmonary embolism. No evidence of palpitations, syncope or other cardiac dysrhythmia. Patient would be extremely low risk for ACS. workup with EKG and troponin is negative. HEART score is 0. Given time since onset of symptoms (several days), I do not think the patient needs to be admitted for further sets of enzymes. EKG shows no evidence for pericarditis. Clinical presentation not suggestive of myocarditis. No evidence for peripartum cardiomyopathy. BNP normal. Lung lees are clear. No signs of pulmonary edema Chest CT shows no evidence for pneumonia, pneumothorax, pulmonary edema, pleural effusion, rib fracture, cardiomegaly. Mediastinum is normal on the CT. The patient has no ripping or tearing pain through to the back and has symmetric pulses on exam, no other acute neuro findings so I doubt aortic dissection. Risk of radiation and contrast exposure would outweigh the benefit of CT angiogram. No wheezing or bronchospasm to suggest COPD/asthma. She is not coughing but does have mild body aches and headache which could go with a viral syndrome. Labs show mild leukopenia which is down from Tuesday, possibly bone marrow suppression from a virus. He discussed possible testing with COVID PCR but using shared decision making we decided to hold off. No signs of chest wall cellulitis, shingles, injury. With reasonable clinical confidence, I think the patient is safe for outpatient follow up. Discussed return precautions. Questions answered. Patient voices comfort with the plan. Lab Data Labs: Lab Results 08/24/23 Range/Units 09:40 WBC 3.51 L (4.50-11.00) K/uL RBC 4.55 (4.00-5.20) m/uL Hgb 13.1 (12.0-16.0) gm/dL Hct 41.2 (33.0-51.0) % MCV 91 (80-100) fL MCH 29 (26-34) pg MCHC 32 (32-36) gm/dL RDW Coeff of Erasmo 13.5 (11.5-15.5) % Plt Count 243 (140-440) K/uL Neut % (Auto) 53.6 (42.0-72.0) % Lymph % (Auto) 36.5 (20-44) % [place] % (Auto) 7.1 (0.0-11.0) % Eos % (Auto) 1.4 (0.0-7.0) % Baso % (Auto) 1.1 (0.0-3.0) % Neut # (Auto) 1.90 (1.7-7.0) K/uL Lymph # (Auto) 1.30 (0.90-2.90) K/uL [place] # (Auto) 0.20 (0.00-0.90) K/UL Eos # (Auto) 0.00 (0.00-0.50) K/uL Baso # (Auto) 0.00 (0.00-0.30) K/uL Abs Immat Gran (auto) 0.00 (0.00-0.30) K/uL Imm/Tot Granulo (auto) 0.3 % Sodium 140 (135-149) mmol/L Potassium 3.8 (3.6-5.1) mmol/L Chloride 106 (96-114) mmol/L Carbon Dioxide 29 (20-32) mmol/L Anion Gap 5 L (7-15) mEq/L BUN 11 (5-24) mg/dL Creatinine 0.6 (0.5-1.5) mg/dL Estimated Creat Clear 138.17 Estimated GFR 127 ml/min Glucose 87 (60-115) mg/dL Calcium 9.1 (8.4-10.6) mg/dL Troponin I < 0.01 L (0.01-0.04) ng/mL NT-Pro-B Natriuret Pep 30 pg/mL Imaging Data CT scan - chest: Attestation: I have reviewed the pertinent imaging results. Radiologist's impression: Impression: 1. No acute pulmonary embolism. 2. Mild bronchial wall thickening may represent airways infection or inflammation. Discharge Plan Discharge Clinical Impression: Chest pain, Leukopenia, Viral illness Patient Disposition: Home, Self-Care Condition: Stable Instructions: Chest Pain (DC), Viral Syndrome (ED) Additional Instructions: As we discussed, right now the workup for her chest pain looks good. No signs of blood clots, heart attacks, heart problems, or other serious problems with her heart or lungs. The CT scan does show a small amount of inflammation along the linings of your bronchial tubes. This could possibly be a viral infection. Keep a close eye on your symptoms. We expected to get better within the next 2-4 days. If you get worse, come back to the ER right away to be rechecked. please follow-up with your doctor by Tuesday for a recheck, if you are not completely better. Her laboratory workup shows that your white blood cell count has gone down slightly. Sometimes your white blood cell count the goes down in response to a viral infection. This should get better as your symptoms get better. Prescriptions: No Action PNV #[id number] 30 mg iron-10 mg iron-1 mg capsule 1 cap PO DAILY hydrocortisone [Anusol-HC] 2.5 % cream with perineal applicator 1 applic KS BID-QID PRN (Reason: hemorrhoids) Qty: 30 0RF enoxaparin 100 mg/mL syringe 100 mg subcut Q12H acetaminophen 500 mg Tablet 1,000 mg PO Q6H PRNQty: 0 0RF docusate sodium 100 mg Capsule 100 mg PO DAILY Qty: 90 0RF ibuprofen 600 mg Tablet 600 mg PO Q6H PRNQty: 60 0RF Follow Up/Referrals: Marybeth Andrew MD [Primary Care Provider] - Stand Alone Forms: [employer] Info Instructions
--- NOTE | 2023-08-24 10:03 | CRLHL7_ITS ---
For Patients: As a result of the Century Cures Act, medical imaging exams and procedure reports are released immediately into your electronic medical record. You may view this report before your referring provider. If you have questions, please contact your health care provider. Indication: CHEST PAIN H/O PE, POST 2 WEEKS Technique: CT angiogram of the chest was performed for evaluation of pulmonary embolism. 95 mL of Isovue 370 intravenous contrast was administered. Comparison: 03/08/2023 Findings: CARDIOVASCULAR: Diagnostic quality: Contrast opacification of the pulmonary arterial circulation is adequate for assessment of pulmonary embolism. Study is not significantly limited by respiratory motion artifact. Pulmonary arteries: No filling defects to suggest pulmonary embolism. Not enlarged. Heart: No interventricular septal deviation. Normal in size. No significant coronary artery calcification. No significant valvular calcification. Pericardium: No pericardial effusion. Thoracic aorta: No significant abnormality. Normal cervical branching. REMAINING CHEST: Medical devices: None. Thyroid: Normal. Lymph nodes: No supraclavicular, axillary, mediastinal, or hilar lymphadenopathy. Other mediastinal structures: No significant abnormality. Lung parenchyma: No significant abnormality. Airways: Mild bronchial wall thickening. Pleura: No significant abnormality. Chest wall: No significant abnormality. Upper abdomen: No significant abnormality. Musculoskeletal: No significant abnormality. Impression: 1. No acute pulmonary embolism. 2. Mild bronchial wall thickening may represent airways infection or inflammation. Please note that all CT scans at this facility use dose modulation, iterative reconstruction, and/or weight-based dosing when appropriate to reduce radiation dose to as low as reasonably achievable. Dictated by Michael Young MD @ 08/24/2023 11:21:06 AM (Electronically Signed)
--- OUTSIDE RECORDS SUMMARY | 2023-08-24 10:12 | XMS_ITS | Continuity of Care Document ---
Author Organization [facility] Address [address] [place] [address] Phone Care Team Providers Care Optometric Aide Name Role Phone Moira Roa MD Unavailable [...] [address], [place], [place], [id number] , [place] tel: [phone] [facility] No Information 4 Crispin Pizarro. [address], [place], [address], [place]. tel: [phone] Subsequent Hospital Care MDM Straightforward Or LOW 25 MIN [facility], [address], [place], [place], [id number] , [place] tel: [phone] [facility] IP No Information 4 Soledad Valentin. [address], [place], [address], [place]. tel: [phone] Initial Hospital Inpatient Or Observation Moderate MDM 55min [facility], [address], [place], [place], [id number] , [place] tel: [phone] [facility] IP labor without delivery, third trimesterPersona l history of pre-term laborInfection of other part of genital tract in , third trimesterPersona l history of pulmonary [id number] weeks gestation of pregnancyStrepto coccus B carrier state complicating [id number] weeks gestation of 4 [facility]. [address], [address], [place], [address], [place]. tel:[phone] Family History Family Member Type Diagnosis Age [...]
--- OUTSIDE RECORDS SUMMARY | 2023-08-24 10:12 | XMS_ITS | Clinical Summary ---
Author Organization [place] Address [address] [facility] 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 Name Role Phone No Ref-Primary, Physician Primary Care Provider Oleg Aparicio PA-C Unavailable [phone] Ana Oreilly MD Unavailable [phone] Allergies No known active allergies Medications [...] Encounters Date Type Department Care Team Description 08/23/2023 Telephone [facility] [address] [place] [phone] Oleg Aparciio PA-C 08/04/2023 Orders Only [facility] [address] [place] [phone] Oleg Aparicio PA-C 08/04/2023 Telephone [facility] [place] [address] [place] [address] Jeanette Truong MD 07/28/2023 Telephone [facility] [address] [place] [phone] Jerry Louie Hemo Call To Schedule Appointment (Talked with Pt- per ptOleg advised to F/U one month after child is born. Will call back to schedule.) 07/15/2023 6:03 PM CDT - 07/18/2023 10:20 AM CDT Hospital Encounter [facility] [address] [place] [phone] Moira Roa MD Discharge Disposition: Home or Self Care 07/15/2023 Telephone [facility] [address] [place] [address] [address] [place] [phone] Oleg Aparicio PA-C CONSENT (Called pt to receive verbal consent to fax to another health office on her care team. LVM to CB.) 07/04/2023 2:30 PM CDT Office Visit [facility] [address] [place] [phone] Oleg Aparicio PA-C Pulmonary embolism affecting in second trimester (Primary Dx); Family history of blood clots; 31 weeks gestation of 07/04/2023 Travel 06/22/2023 2:00 PM CDT Lab [facility] [address] [place] [address] Pulmonary embolism affecting in second trimester 06/22/2023 MyC Medical Advice [facility] [address] [place] [address] Oleg Aparicio PA-C 06/21/2023 10:00 AM CDT Office Visit [facility] Medicine [facility] [address] [place] [address] Ori Adame MD Encounter for ultrasound to check growth (Primary Dx) 06/21/2023 9:30 AM CDT - 06/21/2023 11:59 PM CDT Hospital Encounter [facility] Medicine [place] [address] [place] [address] Ori Adame MD Encounter for ultrasound to check growth Discharge Disposition: Home or Self Care 06/21/2023 Travel 05/31/2023 11:30 AM CDT Office Visit [facility] [place] [address] [place] [address] Ori Adame MD Encounter for ultrasound to check growth (Primary Dx) 05/31/2023 10:45 AM CDT - 05/31/2023 11:59 PM CDT Hospital Encounter [facility] Medicine [facility] [address] [place] [address] Ori Adame MD Encounter for ultrasound to [...] Description 09/15/2023 2:30 PM CDT Office Visit [facility] [address] [place] [phone] Oleg Aparicio, PABrightC [address] [facility] [address] [place] [address] Health Maintenance Due Date Last Done Comments [...] GROUP B STREP SCREENING 08/07/2023 INFLUENZA VACCINE (#1) 2023 01/25/2022 PAP 12/12/2023 12/11/2020 HIV SCREENING Completed 01/26/2023 [...] CDT Pulmonary embolism affecting in second trimester [facility] US COMPREHENSIVE SINGLE F/U Routine 06/21/2023 10:50 AM CDT Encounter for ultrasound to check growth [facility] US COMPREHENSIVE SINGLE F/U Routine 05/31/2023 11:40 [...] MD LAB - BLOOD ORDERABL ES LABORATORY [facility] Acute Care Lab [address] 1st floor, Room [address] [place] [address], [facility] [phone] * Rupture of Membranes by ROM Plus [...] BODY FLUIDS OR DERABLES Performing Organization Address City/[facility]/ZIP Co de Phone Number LABORATORY [facility] Lab [address] 1[address] floor, [address] [place] [address], [facility] [phone] * (ABNORMAL) Wet preparation (07/17/2023 6:52 PM CDT) Pathologist [facility] Trichomonas Absent Absent RICHARD 07/17/2023 7:18 PM [...] - MICRO GENERAL ORDERABLES Performing Organization Address [facility]/ZIP Co de Phone Number LABORATORY [facility] Lab [address] 1st floor, [address], [place] [address], [facility] [phone] * (ABNORMAL) CBC with platelets and differential (07/15/2023 9:31 PM CDT) Pathologist [facility] WBC Count 10.6 4.0 - 11.0 10e3/uL [...] MD LAB - BLOOD ORDERABL ES LABORATORY [facility] Acute Care Lab [address] 1[address] floor, [address] [place] [address], [facility] [phone] * Adult Type and Screen (07/15/2023 9:31 PM CDT) ABO/RH(D) O POS 07/15/2023 7:26 PM CDT BLOOD BANK Antibody Screen Negative Negative 07/15/2023 7:26 PM CDT BLOOD BANK SPECIMEN EXPIRATION DATE [id number] 07/15/2023 7:26 PM CDT BLOOD BANK Blood STRUCTURE OF RIGHT UPPER LIMB / Unknown Venipuncture / Unknown 07/15/2023 9:31 PM CDT 07/15/2023 9:34 PM CDT Moira Roa MD LAB - BLOOD BANK MONISHA T ORDER Performing Organization Address [facility]/ZIP Co de Phone Number BLOOD BANK [address] [place] [address], [facility] * (ABNORMAL) Creatinine (07/15/2023 9:31 PM CDT) Creatinine 0.47(L) 0.51 - 0.95 mg/dL 07/15/2023 9:55 PM CDT LABORATORY GFR Estimate >90 >60 mL/min/1.7 3m2 07/15/2023 9:55 PM CDT LABORATORY Blood STRUCTURE OF RIGHT UPPER LIMB / Unknown Venipuncture / Unknown 07/15/2023 9:31 PM CDT 07/15/2023 9:34 PM CDT Moira Roa MD LAB - BLOOD ORDERABL ES LABORATORY [facility] Lab [address] 1[address] floor, [address] [place] [address], [place] [phone] * (ABNORMAL) UA with Microscopic reflex to Culture (07/15/2023 6:45 PM CDT) Color Urine Straw Colorless, Straw, Light Yellow, Yellow 07/15/2023 7:04 PM CDT LABORATORY Appearance Urine Clear Clear 07/15/19 7:04 PM CDT LABORATORY Glucose Urine Negative Negative mg/dL 07/15/2023 7:04 PM CDT LABORATORY Bilirubin Urine Negative Negative 7:04 PM CDT LABORATORY Ketones Urine 40(A) Negative mg/dL 07/15/2023 7:04 PM CDT LABORATORY Specific Flanagan Urine 1.009 1.003 - 1.035 07/15/2023 7:04 [...] MD LAB - URINE ORDERABL ES LABORATORY [facility] Lab [address] 1[address] floor, [address] [place] [address] [phone] * Chlamydia trachomatis/Neisseria gonorrhoeae by PCR (07/15/2023 6:23 PM CDT) Pathologist [facility] Chlamydia Trachomatis Negative Negative 07/16/2023 12:02 PM CDT [facility] Comment: Negative for C. trachomatis rRNA by director of cloud services mediated amplification. A negative result by director of cloud services mediated amplification does not preclude the presence of infection because results are dependent on proper and adequate collection, absence of inhibitors and sufficient rRNA to be detected. Neisseria gonorrhoeae Negative Negative 07/16/2023 12:02 PM CDT [facility] Comment:Negative for N. gono rrhoeae rRNA by director of cloud services mediated amplification. A negative result by director of cloud services mediated amplification does not preclude the presence of C. trachomatis infection because results are dependent on proper and adequate collection, absence of inhibitors and sufficient rRNA to be detected. Urine VOIDED URINE SPECIMEN / Unknown Non-blood Collection / Unknown 07/15/2023 6:23 PM CDT 07/15/2023 6:30 PM CDT Moira Roa MD LAB - MICRO GENERAL ORDERABLES [facility] Inf. Diseases Diag. Lab [address] [place] [address] * Group B Streptococcus (External Result) (07/15/2023) Pathologist [facility] Group B Streptococcus (External) Negative Negative EXTERNAL LAB Patient Reported LAB - HIM EXTERNAL R ESULT EXTERNAL LAB External Lab * Low Molecular Weight Heparin Anti Xa Level (06/22/2023 1:58 PM CDT) [facility] Anti Xa Low Molecular Weight 0.58 For [...] LAB - BLOOD ORDERABL ES U LABORATORY [facility] [place] [facility] Lab [address] [place] [address], [facility] * [facility] Single F/U (06/21/2023 10:50 AM [...] ? Study Date: ??06/21/2023 9:50am Pat. NO: ??[id number] ?Referring ??MD: TRISTA MELLO Site: ??[place] ? Cable Tv Installer: Chanda Violet [facility] : ??1995 ?Age: ?? 28 ----- INDICATION [...] BPD ?72.6 ?mm ? 29w 1d ?George OFIggy ?95.1 ?mm ? 28w 0d ?Nicolaides HC ?267.0 ?mm ?29w 1d ?Hadlock Cerebellum tr ?35.5 ? mm ?30w 4d ?Nicolaides AC ?238.2 ?mm ?28w 1d ?14% ?Hadlock Femur ?55.3 ? mm ?29w 1d ?Hadlock Humerus ?49.1 ?mm ? 28w 6d ?Jojo Weight Calculation: EFW ? 1,258 ?g ? 18% ?Hadlock EFW (lb,oz) ? 2 lb 12 ?oz EFW by ?Hadlock ([id number]) Head / Face / Neck Biometry: Kid Club Attendant ? 4.9 ? mm CM ?5.5 ? mm ANATOMY ----- The following structures appear normal: Head / Neck ? Cranium. Head size. Head shape. Lateral ventricles. Midline falx. Cerebellum. Cisterna magna. Thalami. Face ? Lips. Profile. Nose. Heart / Thorax ?4-chamber view. RVOT view. LVOT view. 7-ovibqc-wrlaohw view. ? Diaphragm. Abdomen ? Stomach. Kidneys. [...] [place] Study Date: 06/21/2023 9:50am Pat. NO: [id number] Referring MD: TRISTA MELLO Site: [facility] Cable Tv Installer: Chanda Lazo RDMS : 1995 Age: [...] 2 lb 12 oz EFW by Hadlock ([id number]) Head / Face / Neck Biometry: Kid Club Attendant 4.9 mm CM 5.5 mm ANATOMY ----- The following structures appear normal: Head / Neck Cranium. Head size. Head shape.Lateral ventricles. Midline falx. Cerebellum. Cisterna magna. Thalami. Face Lips. Profile. Nose. Heart / Thorax 4-chamber view. RVOT view. LVOT view.1-nbrngk-qybobzx view. Diaphragm. Abdomen Stomach. Kidneys. Bladder. Spine [...] volume appeared normal. Ori Adame MD [facility] US ORDERABL ES * HIV-1 Antibody (External Result) (01/26/2023) HIV 1&2 Antibody (External) Negative Nonreactive EXTERNAL LAB Patient Reported LAB - HIM EXTERNAL R ESULT EXTERNAL LAB External Lab from Last 3 Months or Most Recently Relevant to Health Maintenance Advance Directives For more information, please contact: [phone] * Full Code (Latest Code Status on File) Date Activated Date Inactivated Comments 07/15/2023 7:25 PM 07/18/2023 1:55 PM All basic an d advanced life-sustaining interventions are performed as appropriate Question Answer Comments Code status determined by: Discussion with jonnie nt/ legal decision maker Care Teams Diesel Powerplant Mechanic Relationship Specialty Start Date End Date No Ref-Primary, Physician PCP - General 03/31/23 Oleg Aparicio, PABrightC [facility] [address] [place] [address] Assigned Cancer Care Provider 05/06/23 Ana Oreilly MD [address] [place] [address] [address] [place] [address] Assigned OBGYN Provider 05/06/23
--- OUTSIDE RECORDS SUMMARY | 2023-08-24 10:13 | XMS_ITS | Encounter Summary ---
Author Organization [place] Address [address] [facility] [place] [address] Care Team Providers Care Polysomnograph Tech Name Role Phone No Ref-Primary, Physician Primary Care Provider Oleg Aparicio PA-C Unavailable [phone] Ana Oreilly MD Unavailable [phone] Reason for Visit * Reason Onset Date Comments CONSENT 07/15/2023 Called pt to rec eive verbal consent to fax to another health office on her care team. LVM to CB. Encounter Details Date Type Department Care Team (Late st Contact Info) Description 07/15/2023 Telephone [facility] [address] [place] [address] Oleg Aparicio PA-C [address] [place] [address] CONSENT (Called pt to receive [...] [address] [place] [phone] Oleg Aparicio PA-C [address] [place], [place] [phone] documented as of this encounter Visit Diagnoses Not on filedocumented in this encounter Care Teams Polysomnograph Tech Relationship Specialty Start Date End Date No Ref-Primary, Physician PCP - General 03/31/23 Oleg Aparicio, RUPAL [address] [place], [place] [phone] Assigned Cancer Care Provider 05/06/23 Ana Oreilly MD [address] [place], [place] [phone] Assigned OBGYN Provider 05/06/23 documented as of this encounter
--- OUTSIDE RECORDS SUMMARY | 2023-08-24 10:13 | XMS_ITS | Encounter Summary ---
Author Organization [place] Address [address] [facility] [place] [address] Care Team Providers Care Learning Support Assistant Name Role Phone No Ref-Primary, Physician Primary Care Provider Oleg Aparicio PA-C Unavailable [phone] Ana Oreilly MD Unavailable [phone] Reason for Visit * Reason Comments Labor * Auth/Cert (Routine) Specialty Diagnoses / Procedures Referred By Contac t Referred To Contact retail supervisor Diagnoses labor Sh Labor & Delivery [address] [phone] Referral ID Status Reason Start Date Expiration Date Visits Re quested Visits Authorized [id number] 1 1 Encounter Details Date Type Department Care Team (Latest Contact Info) Description 07/15/2023 6:03 PM CDT - 07/18/2023 10:20 AM CDT Hospital Encounter [facility] [address] [address] Moira Roa MD [address] [address] Discharge Disposition: Home or [...] Roa MD - 07/18/2023 10:[address] [facility] Discharge Summary Gabrielle Mcmahon Age: [age] year old Date of : 1995 Date of Admission: 07/15/2023 Date of Discharge:: 08/08/2023 Admitting Physician: 07/18/2023 10:20 AM Discharge Physician: Moira Roa MD Home clinic: [facility] Admission Diagnoses: at 33w1d who admitted [...] Brief History of Illness: Pt transferred from [facility] for threatened PTL at 32w5d. She [...] Where can you learn more? Go to https://[email or web address]/patiented Enter N531 in the search box to learn more about Learning About When to Call Your Doctor During (After 20 Weeks). Current as of: August 30, 2022 Content Version: 14.0 ?? [employer]. Care instructions adapted under license by your healthcare professional. If you have questions about a medical condition or this instruction, always ask your healthcare professional. [employer] disclaims any warranty or liability for your [...] Mcmahon : 1995 Admit date: 07/15/2023 Acct: [id number] Assessment/Plan: Gabrielle Mcmahon is a at 33w1d who admitted for threatened labor. Today is HD#4. Pt transferred here from an outside facility and is unassigned to [facility]. contractions - minimal cervical change during admission. - continues to have irregular and non painful cramping. - s/p Nifedipine course - s/p BMZ 07/14, 07/15 - UDip WNL. NG/CT neg - GBS negative - s/p NICU consult - Tracings reactive - Dispo: plan for discharge today with low threshold to return for any increased symptoms. Pt Vidya Sanders health information internship number to call if she plans to return to [facility]. Hx of BL PE earlier this [...] cords Psych: mood appropriate FHT: tracings reactive Bally: irritable Labs/Imaging: Results for orders placed or [...] 25 mg,25 mg, Rectal, Q12H PRN, Moira oRa MD senna-docusate (SENOKOT-S/PERICOLACE) 8.6-50 MG per tablet [...] Mcmahon : 1995 Admit date: 07/15/2023 Acct: [id number] Assessment/Plan: Gabrielle Mcmahon is a at 33w0d who admitted for threatened labor. Today is HD#3. Pt transferred here from an outside facility and is unassigned to [facility]. contractions - No cervical change on last [...] Moira Roa MD David F. MD [facility] EVA Sanders PA 07/17/2023, 8:03 AM * Crissy Akins RN - 07/17/2023 12:00 AM CDT Pts GBS was collected at [place] on 07/14, pt received results via email [...] pending Urine GC pending GBS collected at [place] and pending. S/p NICU consult on 07/15/23 Hx of bilateral PE in this As outpatient, pt on lovenox 100 mg bid. Reordered for 1130am on 07/15 See hematology note for additional details. Bilateral SCD's Ambulate freely PNC If hospitalized [place] [facility], plan growth ultrasound q 4 weeks. Continue [...] not included. July 15, 2023 Gabrielle Mcmahon [id number] OB Admit History & Physical CC: contractions HPI: at 32w5d who was a transfer from [facility]. She has had adequate care up to this point. She was seen at her routine visit today where she shared with her provider that she was having on and off contractions over the last couple of weeks but increased frequency and pressure over the last couple of days. She was evaluated on labor and delivery in [place] and contractions were noted on NST. Transvaginal [...] and followed by hematology.Most recent encounter in [facility] on 06/1323. She has been followed by MFM for growth assessment. The last growth was on 06/20 at 18% with AC at 14%. They recommend growth every 4 weeks. 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 OVERHAUL: Negative CV: Negative PULMONARY: Negative MUSCULOSKELETAL: Negative [...] Resource Strain: Low Risk (02/21/2022) Received from [facility] Overall Financial Resource Strain (CARDIA) Difficulty of Paying Living Expenses: Not hard at all Food Insecurity: No Food Insecurity (02/21/2022) Received from [facility] Hunger Vital Sign Worried About Running Out of Food in the Last Year: Never true Ran Out of Food in the Last Year: Never true Transportation Needs: No Transportation Needs (02/21/2022) Received from [facility] PRAPARE - Transportation Lack of Transportation (Medical): No Lack of Transportation (Non-Medical): No Physical Activity: Insufficiently Active (02/21/2022) Received from [facility] Exercise Vital Sign Days of Exercise per Week: 3 days Minutes of Exercise per Session: 20 min Stress: Stress Concern Present (02/21/2022) Received from [facility] [place] [employer] - Occupational Stress Questionnaire Feeling of Stress : To some extent Social Connections: Unknown (08/26/2022) Received from [facility], [facility] Social Connections Frequency of Communication with Friends and Family: Not on file Interpersonal Safety: Not At Risk (02/21/2022) Received from [facility] Humiliation, Afraid, Rape, and Kick questionnaire Fear of Current or Ex-Partner: No Emotionally Abused: No Physically Abused: No Sexually Abused: No Housing Stability: Low Risk (02/21/2022) Received from [facility] Housing Stability Vital Sign Unable to [...] mg/dL Mucus Urine Present Abnormal /LPF Specific [place] Urine 1.009 RBC Urine <1 /HPF Blood [...] 26.00 kg/m?? FHT 140, mod joyce, reactive Bally: irregular contractions Alert Awake in NAD, very [...] pending Urine GC pending GBS collected at [place] and pending. Consider NICU consult tomorrow if applicable Hx of bilateral PE in this As outpatient, pt on lovenox 100 mg bid. Last dose at 0915 on 07/14. Will hold for tonight and if nolabor symptoms, plan to resume tomorrow morning. See hematology note for additional details. Bilateral SCD's Ambulate freely PNC If hospitalized [place] [facility], plan growth ultrasound q 4 weeks. Continue daily PNV Plan NST q shift and continuous monitoring if pt complaints of more that 5 contractions in an hour. Dispo; pt admitted to labor and delivery. Anticipate stay through the steroid window at minimum. 40 minutes spent on face to face time, documentation review, and h and p. Moira Roa MD MD Dept of SALES ASSISTANT DISPLAYS July 15, 2023 documented in this encounter Consult Notes * Alma Acosta, LIVE TRUCK OPERATOR REMOTELY OPERATED VEHICLE - 07/15/2023 8:57 PM CDTAssociated Order(s): NURSE PRACT IP CONSULT Images from the original note were not included. [facility] Neonatology Antepartum Counseling Consult: I [...] lung development, nutrition, growth and development, and [place] [facility] outcomes. I also explained the basic criteria [...] doctors names if she comes back to [facility]. * Provider Notification - Crissy Akins [...] 07/17/23 0252 Provider Notification Provider Name/Title Dr. Roew Method of Notification In Department Notification Reason Status Update MD updated that pt has been resting comfortably. Pt continues to feel sporadic contractions. MD aware that pt received a negative GBS result via email notification from [place]. * Provider Notification - Crissy Akins RN [...] ambulance at 1735 [address] being transferred from [facility]. Report received from EMS. Dr. Kumari [...] feels crampy and slight pelvic pressure. At [place] she received 2 gr ampicillin at 1515. 30mg of Niphedipine at 1551, 1st dose of Beta at 1514 and an LR bolus of 1000cc [id number]. Cx seemed to space out after bolus. Pt has a hx of bilateral PE in . No diagnosis givenbut taking 100mg of lovenox BID and followed by Hem. She also had a wet prep done today 07/14 at ( [place] labor and delivery) and negative, Amniosure which was negative. FFN done and positive. US done as well for cervical length and 8mm 2, 80-3. GBS was colleted at [place] as well 07/14. Once pt here UA/UC [...] 2:30 PM CDT Office Visit [facility] [address] [place] [address] Oleg Aparicio PA-C [address] [place] [address] documented as of this encounter Procedures Procedure [...] LAB - BLOOD ORDERABL ES LABORATORY [facility] [address] 1[address] floor, [address] [place] [address], [facility] [phone] * Rupture of Membranes by ROM Plus (07/17/2023 6:52 PM CDT) Pathologist [facility] Rupture of Membranes by ROM Plus Negative [...] LAB - BODY FLUIDS OR DERABLES LABORATORY [facility] [address] 1[address] floor, [address] [place] [address], [facility] [phone] * (ABNORMAL) Wet preparation (07/17/2023 6:52 PM [...] LAB - MICRO GENERAL ORDERABLES LABORATORY [facility] Acute Care Lab [address] 1[address] floor, [address] [place] [address], [facility] [phone] * Adult Type and Screen (07/15/2023 9:31 PM CDT) ABO/RH(D) O POS 07/15/2023 7:26 PM CDT BLOOD BANK Antibody Screen Negative Negative 07/15/2023 7:26 PM CDT BLOOD BANK SPECIMEN EXPIRATION DATE [id number] 07/15/2023 7:26 PM CDT BLOOD BANK Blood STRUCTURE OF RIGHT UPPER LIMB / Unknown Venipuncture / Unknown 07/15/2023 9:31 PM CDT 07/15/2023 9:34 PM CDT Moira Roa MD LAB - BLOOD BANK MONISHA T ORDER Performing Organization Address City/[facility]/ZIP Co de Phone Number BLOOD BANK [address] [place] [address], [facility] * (ABNORMAL) CBC with platelets [...] 31.5 - 36.5 g/dL 07/15/2023 9:37 PM [facility] RDW 13.2 10.0 - 15.0 % 07/15/2023 9:37 PM CDT LABORATORY Platelet Count 199 150 - 450 10e3/uL 07/15/2023 9:37 PM CDT LABORATORY % Neutrophils 92 % 07/[facility]/2023 9:37 [facility] % Lymphocytes 6 % 07/15/2023 9:37 PM [facility] % Monocytes 1 % 07/15/2023 9:37 PM [facility] % Eosinophils 0 % 07/15/2023 9:37 PM [facility] % Basophils 0 % 07/15/2023 9:37 PM CDT LABORATORY % Immature Granulocytes 1 % 07/15/2023 9:37 PM [facility] NRBCs per 100 WBC 0 <1 /100 024 9:37 PM [facility] Absolute Neutrophils 9.7(H) 1.6 - 8.3 10e3/uL 07/15/2023 9:37 PM [facility] Absolute Lymphocytes 0.7(L) 0.8 - 5.3 10e3/uL 07/15/2023 9:37 PM [facility] Absolute Monocytes 0.1 0.0 - 1.3 10e3/uL 07/15/2023 9:37 PM [facility] Absolute Eosinophils 0.0 0.0 - 0.7 10e3/uL 07/15/2023 9:37 PM [facility] Absolute Basophils 0.0 0.0 - 0.2 10e3/uL 07/15/2023 9:37 PM [facility] Absolute Immature Granulocytes 0.1 <=0.4 10e3/uL 07/15/2023 9:37 PM [facility] Absolute NRBCs 0.0 10e3/uL 07/15/2023 9:37 PM [facility] Blood STRUCTURE OF RIGHT UPPER LIMB / Unknown Venipuncture / Unknown 07/15/2023 9:31 PM CDT 07/15/2023 9:34 PM CDT Moira Roa MD LAB - BLOOD ORDERABL ES LABORATORY [facility] [address] 1[address] floor, [address] [place] [address], [facility] [phone] * (ABNORMAL) Creatinine (07/15/2023 9:31 PM CDT) Creatinine 0.47(L) 0.51 - 0.95 mg/dL 07/15/2023 9:55 PM CDT LABORATORY GFR Estimate >90 >60 mL/min/1.7 3m2 07/15/2023 9:55 PM CDT LABORATORY Blood STRUCTURE OF RIGHT UPPER LIMB / Unknown Venipuncture / Unknown 07/15/2023 9:31 PM CDT 07/15/2023 9:34 PM CDT Moira Roa MD LAB - BLOOD ORDERABL ES LABORATORY [facility] [address] 1[address] floor, [address] [place] [address], [facility] [phone] * (ABNORMAL) UA with Microscopic reflex to Culture (07/15/2023 6:45 PM CDT) Color Urine Straw Colorless, Straw, Light Yellow, Yellow 07/15/2023 7:04 PM CDT LABORATORY Appearance Urine Clear Clear 07/15/19 7:04 PM CDT LABORATORY Glucose Urine Negative Negative mg/dL 07/15/2023 7:04 PM CDT LABORATORY Bilirubin Urine Negative Negative 7:04 PM CDT LABORATORY Ketones Urine 40(A) Negative mg/dL 07/15/2023 7:04 PM CDT LABORATORY Specific [place] Urine 1.009 1.003 - 1.035 07/15/2023 7:04 [...] LAB - URINE ORDERABL ES LABORATORY [facility] Acute Care Lab [address] 1[address] floor, [address] [place] [address], [facility] [phone] * Chlamydia trachomatis/Neisseria gonorrhoeae by PCR (07/15/2023 6:23 PM CDT) Pathologist [facility] Chlamydia Trachomatis Negative Negative 07/16/2023 12:02 PM CDT [facility] Comment: Negative for C. trachomatis rRNA by sales financial analyst mediated amplification. A negative result by sales financial analyst mediated amplification does not preclude the presence of infection because results are dependent on proper and adequate collection, absence of inhibitors and sufficient rRNA to be detected. Neisseria gonorrhoeae Negative Negative 07/16/2023 12:02 PM CDT [facility] Comment:Negative for N. gono rrhoeae rRNA by sales financial analyst mediated amplification. A negative result by sales financial analyst mediated amplification does not preclude the presence of C. trachomatis infection because results are dependent on proper and adequate collection, absence of inhibitors and sufficient rRNA to be detected. Urine VOIDED URINE SPECIMEN / Unknown Non-blood Collection / Unknown 07/15/2023 6:23 PM CDT 07/15/2023 6:30 PM CDT Moira Roa MD LAB - MICRO GENERAL ORDERABLES [facility] Inf. Diseases Diag. Lab [address] [place] [address] * Group B Streptococcus (External Result) (07/15/2023) Pathologist [facility] Group B Streptococcus (External) Negative Negative EXTERNAL LAB Patient Reported LAB - HIM EXTERNAL R ESULT Performing Organization Address City/[facility]/ZIP Co de Phone Number EXTERNAL LAB External Lab * ABO & RH (External Result) (01/26/2023) Pathologist [facility] ABO (External) O EXTERNAL LAB Rh (External) POSITIVE EXTERNAL LAB Patient Reported LAB - HIM EXTERNAL R ESULT EXTERNAL LAB External Lab * HIV-1 Antibody (External Result) (01/26/2023) Pathologist [facility] HIV 1&2 Antibody (External) Negative Nonreactive EXTERNAL LAB Patient Reported LAB - HIM EXTERNAL R ESULT EXTERNAL LAB External Lab * Rubella Antibody IgG (External Result) (01/26/2023) Pathologist [facility] Rubella Antibody IgG (External) Immune Nonreactive EXTERNAL [...] Antepartum documented in this encounter Care Teams Learning Support Assistant Relationship Specialty Start Date End Date No Ref-Primary, Physician PCP - General 03/31/23 Oleg Aparicio, PABrightC [address] [place] [address] Assigned Cancer Care Provider 05/06/23 Ana Oreilly MD [address] [facility] [address] [place] [address] Assigned OBGYN Provider 05/06/23 documented as of this encounter
--- OUTSIDE RECORDS SUMMARY | 2023-08-24 10:13 | XMS_ITS | Encounter Summary ---
Author Organization [place] Address [address] [facility] [place] [address] Care Team Providers Care Sas Developer Name Role Phone No Ref-Primary, Physician Primary Care Provider Oleg Aparicio PA-C Unavailable [phone] Ana Oreilly MD Unavailable [phone] Encounter Details Date Type Department Care Team (Late st Contact Info) Description 08/23/2023 Telephone [facility] [address] [place] [address] Oleg Aparicio PA-C [address] [place] [address] 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 Tobacco Use Types [...] encounter Miscellaneous Notes * Telephone Encounter - Carmen Pollack RN - 08/23/2023 10:47 AM CDT Gabrielle Mcmahon Female, 28 year old, 1995 History of VTE Patient called to report that she had her baby August 08, had Hep Xa level yesterday in [place],no results yet. She was calling to see if she should have labs done prior to her visit on September 14. Discussed with AFIA Greer who would like to wait to get labs [facility]. Communicated to patient that Oleg would discuss labs at upcoming visit. Carmen Pollack, MSN, RN, PHN -Nurse Clinician, [facility] [phone] documented in this encounter Plan of Treatment Upcoming Encounters Date Type Department Care Team (Late st Contact Info) Description 09/15/2023 2:30 PM CDT Office Visit [facility] [address] [place] [phone] Oleg Aparicio PA-C [address] [place], [place] [phone] documented as of this encounter Visit Diagnoses Not on filedocumented in this encounter Care Teams Sas Developer Relationship Specialty Start Date End Date No Ref-Primary, Physician PCP - General 03/31/23 Oleg Aparicio PA-C [address] [place], [place] [address] Assigned Cancer Care Provider 05/06/23 Ana Oreilly MD [address] [place] [address] Assigned OBGYN Provider 05/06/23 documented as of this encounter
--- OUTSIDE RECORDS SUMMARY | 2023-08-24 10:13 | XMS_ITS | Encounter Summary ---
Author Organization [place] Address [address] [facility] [place] [address] Care Team Providers Care Salesperson Parts Name Role Phone No Ref-Primary, Physician Primary Care Provider Oleg Aparicio PA-C Unavailable [phone] Ana Oreilly MD Unavailable [phone] Encounter Details Date Type Department Care Team (Late st Contact Info) Description 08/04/2023 Orders Only [facility] [address] [place] [address] Oleg Aparicio PA-C [address] [place] [address] 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 Tobacco Use Types [...] original note were not included. [facility], [address], [place] [address] Main: [phone], Telephone Note: Patient: Gabrielle Mcmahon : 1995 Date of this note written: August 04, 2023 Re[address] a call from Dr. Rajan Lantigua [facility] in [facility] about Gabrielle's status on her . In the past couple weeks, she has 2 incidents where she possibly has gone into labor and held her enoxaparin dosing as directed. On 07/15/2023, she was admitted after having some contraction at [facility] at around 32w5d. During this hospitalization, [...] bleeding event. Oleg Aparicio PA-C, MPAS Physician Environmental Maintenance Worker [facility]. documented in this encounter Plan of Treatment Upcoming Encounters Date Type Department Care Team (Late st Contact Info) Description 09/15/2023 2:30 PM CDT Office Visit [facility] [address] [place] [phone] Oleg Aparicio PA-C [address] [place] [address] documented as of this encounter Visit Diagnoses Not on filedocumented in this encounter Care Teams Salesperson Parts Relationship Specialty Start Date End Date No Ref-Primary, Physician PCP - General 03/31/23 Oleg Aparicio PA-C [address] [place], [place] [phone] Assigned Cancer Care Provider 05/06/23 Ana Oreilly MD [address] [place], [place] [address] Assigned OBGYN Provider 05/06/23 documented as of this encounter
--- OUTSIDE RECORDS SUMMARY | 2023-08-24 10:13 | XMS_ITS | Encounter Summary ---
Author Organization [place] Address [address] [place] [address] Care Team Providers Care Enrollment Nurse Name Role Phone No Ref-Primary, Physician Primary Care Provider Oleg Aparicio PA-C Unavailable [phone] Ana Oreilly MD Unavailable [phone] Encounter Details Date Type Department Care Team (Late st Contact Info) Description 08/04/2023 Telephone [facility] [place] [address] [place] [address] Jeanette Truong MD [address] [place] [address] 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 Tobacco Use Types [...] lovenox. I reviewed with the provider the [facility] consult from 04/12/23 for this indication. [...] something that we recommend as standardwithin our [facility] group at this time. I do not see an indication for transfer to [facility] care at this time, given distance from our hospital and concern for rapid progressive labor. Plan to manage as noted for in her 04/12/23 consultation as well. Jeanette Truong MD documented in this encounter Plan of Treatment Upcoming Encounters Date Type Department Care Team (Late st Contact Info) Description 09/15/2023 2:30 PM CDT Office Visit [facility] [address] [place] [phone] Oleg Aparicio PA-C [facility] [place] [phone] documented as of this encounter Visit Diagnoses Diagnosis uterine contractions- Primary Threatened premature labor, unspecified as to episode of care documented in this encounter Care Teams Enrollment Nurse Relationship Specialty Start Date End Date No Ref-Primary, Physician PCP - General 03/31/23 Oleg Aparicio PA-C [address] [place] [phone] Assigned Cancer Care Provider 05/06/23 Ana Oreilly MD [address] [place] [address] Assigned OBGYN Provider 05/06/23 documented as of this encounter
--- OUTSIDE RECORDS SUMMARY | 2023-08-24 10:13 | XMS_ITS | Referral Summary ---
Author Organization [place] Address [address] [place] [place] [address] Care Team Providers Care Museum Tour Guide Name Role Phone No Ref-Primary, Physician Primary Care Provider Oleg Aparicio PA-C Unavailable [phone] Ana Oreilly MD Unavailable [phone] Encounters Date Type Department Care Team Description 08/23/2023 Telephone [facility] [address] [place] [phone] Oleg Aparicio PA-C 08/04/2023 Orders Only [facility] [address] [place] [phone] Oleg Aparicio PA-C 08/04/2023 Telephone [facility] [place] [address] [place] [address] Jeanette Truong MD 07/28/2023 Telephone [facility] [address] [place] [phone] Resource, Ur Hemo Call To Schedule Appointment (Talked with Pt- per ptOleg advised to F/U one month after child is born. Will call back to schedule.) 07/15/2023 6:03 PM CDT - 07/18/2023 10:20 AM CDT Hospital Encounter [facility] [address] [address] Moira Roa MD Discharge Disposition: Home or Self Care 07/15/2023 Telephone [facility] [address] [place] [phone] Oleg Aparicio PA-C CONSENT (Called pt to receive verbal consent to fax to another health office on her care team. LVM to CB.) 07/04/2023 Travel 07/04/2023 2:30 PM CDT Office Visit [facility] [address] [place] [phone] Oleg Aparicio PA-C Pulmonary embolism affecting in second trimester (Primary Dx); Family history of blood clots; 31 weeks gestation of 06/22/2023 2:00 PM CDT Lab [facility] [address] [place] [address] Pulmonary embolism affecting in second trimester 06/22/2023 MyC Medical Advice [facility] [address] [place] [address] Oleg Aparicio PA-C 06/21/2023 Travel 06/21/2023 10:00 AM CDT Office Visit [facility] Medicine [facility] [address] [place] [address] Ori Adame MD Encounter for ultrasound to check growth (Primary Dx) 06/21/2023 9:30 AM CDT - 06/21/2023 11:59 PM CDT Hospital Encounter [facility] Medicine [facility] [address] [place] [address] Ori Adame MD Encounter for ultrasound to check growth Discharge Disposition: Home or Self Care 05/31/2023 Travel 05/31/2023 11:30 AM CDT Office Visit [facility] Medicine [facility] [address] [place] [address] Ori Adame MD Encounter for ultrasound to check growth (Primary Dx) 05/31/2023 10:45 AM CDT - 05/31/2023 11:59 PM CDT Hospital Encounter [facility] [place] [address] [place] [address] Ori Adame MD Encounter for ultrasound to [...] 09/15/2023 2:30 PM CDT Office Visit [facility] [address] [place] [address] Oleg Aparicio PA-C [address] [place] [address] [address] [place] [address] Procedures Procedure Name Priority Date/Time Associated Diagnosis [...] CDT Pulmonary embolism affecting in second trimester [facility] US COMPREHENSIVE SINGLE F/U Routine 06/21/2023 10:50 AM CDT Encounter for ultrasound to check growth [facility] US COMPREHENSIVE SINGLE F/U Routine 05/31/2023 [...] MD LAB - BLOOD ORDERABL ES LABORATORY [facility] Lab [address] 1st floor, [address] [place] [address], [facility] [phone] * Rupture of Membranes by ROM Plus [...] BODY FLUIDS OR DERABLES Performing Organization Address City/[facility]/ZIP Co de Phone Number LABORATORY [facility] [address] 1st floor, Room [address] [address], [facility] [phone] * (ABNORMAL) Wet preparation (07/17/2023 6:52 PM [...] MD LAB - MICRO GENERAL ORDERABLES LABORATORY [facility] Lab [address] 1st floor, [address] [place] [address], [facility] [phone] * (ABNORMAL) CBC with platelets and differential (07/15/2023 9:31 PM CDT) [facility] WBC Count 10.6 4.0 - 11.0 10e3/uL [...] MD LAB - BLOOD ORDERABL ES LABORATORY [facility] [address] 1st floor, [address] [place] [id number], [facility] [phone] * Adult Type and Screen (07/15/2023 9:31 PM CDT) ABO/RH(D) O POS 07/15/2023 7:26 PM CDT BLOOD BANK Antibody Screen Negative Negative 07/15/2023 7:26 PM CDT BLOOD BANK SPECIMEN EXPIRATION DATE [id number] 07/15/2023 7:26 PM CDT BLOOD BANK Blood STRUCTURE OF RIGHT UPPER LIMB / Unknown Venipuncture / Unknown 07/15/2023 9:31 PM CDT 07/15/2023 9:34 PM CDT Moira Roa MD LAB - BLOOD BANK MONISHA T ORDER BLOOD BANK [address] [place] [phone], [facility] * (ABNORMAL) Creatinine (07/15/2023 9:31 PM CDT) Creatinine 0.47(L) 0.51 - 0.95 mg/dL 07/15/2023 9:55 PM CDT LABORATORY GFR Estimate >90 >60 mL/min/1.7 3m2 07/15/2023 9:55 PM CDT LABORATORY Blood STRUCTURE OF RIGHT UPPER LIMB / Unknown Venipuncture / Unknown 07/15/2023 9:31 PM CDT 07/15/2023 9:34 PM CDT Moira Roa MD LAB - BLOOD ORDERABL ES LABORATORY [facility] [address] 1st floor, [address] [place] [address], [facility] [phone] * (ABNORMAL) UA with Microscopic reflex to Culture (07/15/2023 6:45 PM CDT) Color Urine Straw Colorless, Straw, Light Yellow, Yellow 07/15/2023 7:04 PM CDT LABORATORY Appearance Urine Clear Clear 07/15/19 7:04 PM CDT LABORATORY Glucose Urine Negative Negative mg/dL 07/15/2023 7:04 PM CDT LABORATORY Bilirubin Urine Negative Negative 7:04 PM CDT LABORATORY Ketones Urine 40(A) Negative mg/dL 07/15/2023 7:04 PM CDT LABORATORY Specific [place] Urine 1.009 1.003 - 1.035 07/15/2023 7:04 [...] MD LAB - URINE ORDERABL ES LABORATORY [facility] [address] 1st floor, [address] [place] [address], [facility] [phone] * Chlamydia trachomatis/Neisseria gonorrhoeae by PCR (07/15/2023 6:23 PM CDT) Pathologist [facility] Chlamydia Trachomatis Negative Negative 07/16/2023 12:02 PM CDT [facility] Comment: Negative for C. trachomatis rRNA by motion picture photographer mediated amplification. A negative result by motion picture photographer mediated amplification does not preclude the presence of infection because results are dependent on proper and adequate collection, absence of inhibitors and sufficient rRNA to be detected. Neisseria gonorrhoeae Negative Negative 07/16/2023 12:02 PM CDT [facility] Comment:Negative for N. gono rrhoeae rRNA by motion picture photographer mediated amplification. A negative result by motion picture photographer mediated amplification does not preclude the presence of C. trachomatis infection because results are dependent on proper and adequate collection, absence of inhibitors and sufficient rRNA to be detected. Urine VOIDED URINE SPECIMEN / Unknown Non-blood Collection / Unknown 07/15/2023 6:23 PM CDT 07/15/2023 6:30 PM CDT Moira Roa MD LAB - MICRO GENERAL ORDERABLES [facility] Inf. Diseases Diag. Lab [address] [place] [address], [facility] * Group B Streptococcus (External [...] LAB - BLOOD ORDERABL ES [facility]ORY [facility] [place] [facility] Lab [address] [facility], [address] [address] * [facility] Comprehensive Single F/U (06/21/2023 10:50 AM CDT) [...] ? Study Date: ??06/21/2023 9:50am Pat. NO: ??[id number] ?Referring ??MD: TRISTA MELLO Site: ??[employer] ? Casino Cashier: Chanda Lazo RDMS : ??1995 ?Age: ?? [...] 2 lb 12 ?oz EFW by ?Hadlock ([id number]) Head / Face / Neck Biometry: International Marketing Coordinator ? 4.9 ? mm CM ?5.5 ? mm ANATOMY ----- The following structures appear normal: Head / Neck ? Cranium. Head size. Head shape. Lateral ventricles. Midline falx. Cerebellum. Cisterna magna. Thalami. Face ? Lips. Profile. Nose. Heart / Thorax ?4-chamber view. RVOT view. LVOT view. 4-ehizvb-rdxlufi view. ? Diaphragm. Abdomen ? Stomach. Kidneys. [...] [place] Study Date: 06/21/2023 9:50am Pat. NO: [id number] Referring MD: TRISTA MELLO Site: [employer] Cashier: Chanda Lazo RDMS : 1995 Age: 28 [...] 2 lb 12 oz EFW by Hadlock ([id number]) Head / Face / Neck Biometry: International Marketing Coordinator 4.9 mm CM 5.5 mm ANATOMY ----- The following structures appear normal: Head / Neck Cranium. Head size. Head shape.Lateral ventricles. Midline falx. Cerebellum. Cisterna magna. Thalami. Face Lips. Profile. Nose. Heart / Thorax 4-chamber view. RVOT view. LVOT view.8-jldlxj-tvcjeqp view. Diaphragm. Abdomen Stomach. Kidneys. Bladder. Spine [...] fluid volume appeared normal. Ori Adame MD [facility] ORDERABL ES * HIV-1 Antibody (External Result) (01/26/2023) HIV 1&2 Antibody (External) Negative Nonreactive EXTERNAL LAB Patient Reported LAB - HIM EXTERNAL R ESULT EXTERNAL LAB External Lab from Last 3 Months or Most Recently Relevant to Health Maintenance Advance Directives For more information, please contact: [phone] * Full Code (Latest Code Status on File) Date Activated Date Inactivated Comments 07/15/2023 7:25 PM 07/18/2023 1:55 PM All basic an d advanced life-sustaining interventions are performed as appropriate Question Answer Comments Code status determined by: Discussion with jonnie nt/ legal decision maker Care Teams Museum Tour Guide Relationship Specialty Start Date End Date No Ref-Primary, Physician PCP - General 03/31/23 Oleg Aparicio, PA-C Formerly named [facility] [address] [place] [address] Assigned Cancer Care Provider 05/06/23 Ana Oreilly MD [address] [address] [place] [address] Assigned OBGYN Provider 05/06/23
--- OUTSIDE RECORDS SUMMARY | 2023-08-24 10:13 | XMS_ITS | Encounter Summary ---
Author Organization [place] Address [address] [facility] [place] [address] Care Team Providers Care Party Demonstrator Name Role Phone No Ref-Primary, Physician Primary Care Provider Oleg Aparicio PA-C Unavailable [phone] Ana Oreilly MD Unavailable [phone] Reason for Visit * Reason Comments Ultrasound [id number] Encounter Details Date Type Department Care Team (Late st Contact Info) Description 06/21/2023 10:00 AM CDT Office Visit [facility] [place] [address] [place] [address] Ori Adame MD [address] [place] [address] Encounter for ultrasound to check [...] at the [facility]. Ori Adame MD Maternal- Medicine documented in this encounter Nursing Notes * Mara Cheung RN - 06/21/2023 10:00 AM CDT Patient reports good movement, reports [place] contractions, denies leaking of fluid, or bleeding. SBAR given to [facility] MD, see their note in Epic. documented in this encounter Plan of Treatment Upcoming Encounters Date Type Department Care Team (Late st Contact Info) Description 09/15/2023 2:30 PM CDT Office Visit [facility] [address] [place] [address] Oleg Aparicio PA-C [address] [place], [place] [address] documented as of this encounter Visit Diagnoses Diagnosis Encounter for ultrasound to check growth- Primary documented in this encounter Care Teams Party Demonstrator Relationship Specialty Start Date End Date No Ref-Primary, Physician PCP - General 03/31/23 Oleg Aparicio PA-C [address] [place], [place] [address] Assigned Cancer Care Provider 05/06/23 Ana Oreilly MD [address] [place], [place] [address] Assigned OBGYN Provider 05/06/23 documented as of this encounter
--- OUTSIDE RECORDS SUMMARY | 2023-08-24 10:13 | XMS_ITS | Encounter Summary ---
Author Organization [place] Address [address] [place] [address]. [place] [address] Care Team Providers Care Power Chisel Operator Name Role Phone No Ref-Primary, Physician Primary Care Provider Oleg Aparicio PA-C Unavailable [phone] Ana Oreilly MD Unavailable [phone] Encounter Details Date Type Department Care [...] Description 09/15/2023 2:30 PM CDT Office Visit [facility] [address] [place] [address] Oleg Aparicio PA-C [address] [place] [address] documented as of this encounter Visit Diagnoses Not on filedocumented in this encounter Care Teams Power Chisel Operator Relationship Specialty Start Date End Date No Ref-Primary, Physician PCP - General 03/31/23 Oleg Aparicio PA-C [address] [place] [address] [address] [place] [address] Assigned Cancer Care Provider 05/06/23 Ana Oreilly MD [address] [facility] [address] [place] [address] Assigned OBGYN Provider 05/06/23 documented as of this encounter
--- OUTSIDE RECORDS SUMMARY | 2023-08-24 10:13 | XMS_ITS | Encounter Summary ---
Author Organization [place] Address [address] [place] [address]. [place] [address] Care Team Providers Care Photograph Finisher Name Role Phone No Ref-Primary, Physician Primary Care Provider Oleg Aparicio PA-C Unavailable [phone] Ana Oreilly MD Unavailable [phone] Encounter Details Date Type Department Care Team (Late st Contact Info) Description 06/22/2023 [facility] Medical Advice [facility] [address] [place] [address] Oelg Aparicio PA-C [address] [place] [address] 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 Tobacco Use Types [...] Lovenox at 8:56 AM. She needs to brain picker refills but wants to make sure she is on the correct dose as she recently started her third trimester. Patient verbalized understanding and will go to lab. Sandie White RN, BSN, PCCN Nurse Clinician [facility] [address] [place] [address] Office, direct: [phone] Main office number: [phone] Pronouns: She, her, hers documented in this encounter Plan of Treatment Upcoming Encounters Date Type Department Care Team (Late st Contact Info) Description 09/15/2023 2:30 PM CDT Office Visit [facility] [address] [place] [address] Oleg Aparicio PA-C [address] [place] [phone] documented as of this encounter Visit Diagnoses Not on filedocumented in this encounter Care Teams Photograph Finisher Relationship Specialty Start Date End Date No Ref-Primary, Physician PCP - General 03/31/23 Oleg Aparicio PA-C [address] [place] [address] Assigned Cancer Care Provider 05/06/23 Ana Oreilly MD [address] [address] Assigned OBGYN Provider 05/06/23 documented as of this encounter
--- OUTSIDE RECORDS SUMMARY | 2023-08-24 10:13 | XMS_ITS | Encounter Summary ---
Author Organization [place] Address [address] [facility] [place] [address] Care Team Providers Care Graduate Student Name Role Phone No Ref-Primary, Physician Primary Care Provider Oleg Aparicio PA-C Unavailable [phone] Ana Oreilly MD Unavailable [phone] Reason for Visit * Reason Onset Date Comments Call To Schedule Appointment 07/28/2023 Mariusz duque with Pt- per ptOleg advised to F/U one month after child is born. Will call back to schedule. Encounter Details Date Type Department Care Team (Late st Contact Info) Description 07/28/2023 Telephone [facility] [address] [place] [address] Resource, Ur Hemo Call To [...] Description 09/15/2023 2:30 PM CDT Office Visit [facility] [address] [place] [address] Oleg Aparicio, PABrightC [address] [place], [place] [address] documented as of this encounter Visit Diagnoses Not on filedocumented in this encounter Care Teams Graduate Student Relationship Specialty Start Date End Date No Ref-Primary, Physician PCP - General 03/31/23 Oleg Aparicio, PALeeann [address] [place], [place] [address] Assigned Cancer Care Provider 05/06/23 Ana Oreilly MD [address] [place], [place] [address] Assigned OBGYN Provider 05/06/23 documented as of this encounter
--- OUTSIDE RECORDS SUMMARY | 2023-08-24 10:13 | XMS_ITS | Encounter Summary ---
Author Organization [place] Address [address] [place] [address] Care Team Providers Care Press Tender Star Signal Name Role Phone No Ref-Primary, Physician Primary Care Provider Oleg Aparicio PA-C Unavailable [phone] Ana Oreilly MD Unavailable [phone] Reason for Referral * Diagnostic Imaging Ultrasound (Routine) - Pending Review Specialty Diagnoses / Procedures Referred By Contac t Referred To Contact Radiology. Diagnoses Encounter for ultrasound to check growth Procedures [facility] US Comprehensive Single F/U Ori Adame MD [address] [facility] Friend Traveler [address] [address] Referral ID Status Reason Start Date Expiration Date V isits Requested Visits Authorized [id number] Pending Review 05/31/2023 05/30/2024 1 1 Reason for Visit * Diagnostic Imaging Ultrasound (Routine) - Pending Review Specialty Diagnoses / Procedures Referred By Contac t Referred To Contact Radiology. Diagnoses Encounter for ultrasound to check growth Procedures [facility] US Comprehensive Single F/U Ori Adame MD [address] Friend Traveler [address] [address] Referral ID Status Reason Start Date Expiration Date V isits Requested Visits Authorized [id number] Pending Review 05/31/2023 05/30/2024 1 1 Encounter Details Date Type Department Care Team (Latest Contact Info) Description 06/21/2023 9:30 AM CDT - 06/21/2023 11:59 PM CDT Hospital Encounter [facility] [place] [address] [place] [address] Ori Adame MD [address] [place], [place] [address] Encounter for ultrasound to check growth Discharge [...] Description 09/15/2023 2:30 PM CDT Office Visit [facility] [address] [place] [address] Oleg Aparicio PA-C [address] [place], [place] [address] documented as of this encounter Procedures Procedure Name Priority Date/Time Associated Diagnosis Comments [facility] US COMPREHENSIVE SINGLE F/U Routine 06/21/2023 10:50 AM CDT Encounter for ultrasound to check growth documented in this encounter Results * [facility] US Comprehensive Single F/U (06/21/2023 10:50 [...] ? Study Date: ??06/21/2023 9:50am Pat. NO: ??[id number] ?Referring ??: TRISTA MELLO Site: ??[place] ? Felt Finisher: Chanda Lazo RDMS : ??1995 ?Age: ?? [...] 2 lb 12 ?oz EFW by ?Hadlock ([id number]) Head / Face / Neck Biometry: Clinical Resource Coordinator ? 4.9 ? mm CM ?5.5 ? mm ANATOMY ----- The following structures appear normal: Head / Neck ? Cranium. Head size. Head shape. Lateral ventricles. Midline falx. Cerebellum. Cisterna magna. Thalami. Face ? Lips. Profile. Nose. Heart / Thorax ?4-chamber view. RVOT view. LVOT view. 7-jxchbt-evwrhzf view. ? Diaphragm. Abdomen ? Stomach. Kidneys. [...] [place] Study Date: 06/21/2023 9:50am Pat. NO: [id number] Referring MD: TRISTA MELLO Site: [facility] Felt Finisher: Chanda Lazo RDMS : 1995 Age: 28 [...] 2 lb 12 oz EFW by Hadlock ([id number]) Head / Face / Neck Biometry: Clinical Resource Coordinator 4.9 mm CM 5.5 mm ANATOMY ----- The following structures appear normal: Head / Neck Cranium. Head size. Head shape.Lateral ventricles. Midline falx. Cerebellum. Cisterna magna. Thalami. Face Lips. Profile. Nose. Heart / Thorax 4-chamber view. RVOT view. LVOT view.5-onlknf-zkgogsq view. Diaphragm. Abdomen Stomach. Kidneys. Bladder. Spine [...] fluid volume appeared normal. Ori Adame MD [facility] ORDER[facility] ES documented in this encounter Visit Diagnoses Diagnosis Encounter for ultrasound to check growth documented in this encounter Care Teams Press Tender Star Signal Relationship Specialty Start Date End Date No Ref-Primary, Physician PCP - General 03/31/23 Oleg Aparicio PA-C [address] [place] [address] Assigned Cancer Care Provider 05/06/23 Ana Oreilly MD [address] [place] [address] Assigned OBGYN Provider 05/06/23 documented as of this encounter
--- OUTSIDE RECORDS SUMMARY | 2023-08-24 10:13 | XMS_ITS | Encounter Summary ---
Author Organization [facility] Address [address] [place] [address] Care Team Providers Care Reshipping Clerk Name Role Phone No Ref-Primary, Physician Primary Care Provider Oleg Aparicio PA-C Unavailable [phone] Ana Oreilly MD Unavailable [phone] Reason for Referral * Diagnostic Imaging Ultrasound (Routine) - Pending Review Specialty Diagnoses / Procedures Referred By Contac t Referred To Contact Radiology. Diagnoses related condition, antepartum Procedures [facility] US Comprehensive Single F/U Ori Adame MD 606 [facility] [address] [address] Referral ID Status Reason Start Date Expiration Date V isits Requested Visits Authorized [id number] Pending Review 05/10/2023 05/09/2024 1 1 Reason for Visit * Diagnostic Imaging Ultrasound (Routine) - Pending Review Specialty Diagnoses / Procedures Referred By Contac t Referred To Contact Radiology. Diagnoses related condition, antepartum Procedures [facility] US Comprehensive Single F/U Ori Adame MD [address] [facility] [facility] [address] [address] Referral ID Status Reason Start Date Expiration Date V isits Requested Visits Authorized [id number] Pending Review 05/10/2023 05/09/2024 1 1 Encounter Details Date Type Department Care Team (Latest Contact Info) Description 05/31/2023 10:45 AM CDT - 05/31/2023 11:59 PM CDT Hospital Encounter [facility] [place] [address] [place] [phone] Ori Adame MD [address] [place], [place] [address] Encounter for ultrasound to assess growth Discharge [...] 09/15/2023 2:30 PM CDT Office Visit [facility] [address] [place] [phone] Oleg Aparicio PA-C [address] [place], [place] [address] documented as of this encounter Procedures Procedure Name Priority Date/Time Associated Diagnosis Comments [facility] US COMPREHENSIVE SINGLE F/U Routine 05/31/2023 11:40 AM CDT Encounter for ultrasound to assess growth documented in this encounter Results * [facility] US Comprehensive Single F/U (05/31/2023 11:40 [...] ? Study Date: ??05/31/2023 10:49am Pat. NO: ??[id number] ?Referring ??: TRISTA MELLO Site: ??[facility] ? Facility Examiner: Chanda Lazo RDMS : ??1995 ?Age: ?? [...] lb 13 ? oz EFW by ?Hadlock ([id number]-QL-NM-FL) Head / Face / Neck Biometry: Marketing And Public Relations Manager ? 5.7 ? mm CM ?7.7 ? mm ANATOMY ----- The following structures appear normal: Head / Neck ? Cranium. Head size. Head shape. Lateral ventricles. Midline falx. Cavum septi pellucidi. Cerebellum. Cisterna magna. Thalami. Heart / Thorax ?4-chamber view. RVOT view. LVOT view. 9-cbxbyk-jfwfjoz view. ? Diaphragm. Abdomen ? Stomach. Kidneys. [...] [place] Study Date: 05/31/2023 10:49am Pat. NO: [id number] Referring MD: TRISTA MELLO Site: [facility] Facility Examiner: Chanda Lazo RDMS : 1995 Age: 28 [...] 1 lb 13 oz EFW by Hadlock ([id number]-RP-FD-FL) Head / Face / Neck Biometry: Marketing And Public Relations Manager 5.7 mm CM 7.7 mm ANATOMY ----- The following structures appear normal: Head / Neck Cranium. Head size. Head shape.Lateral ventricles. Midline falx. Cavum septi pellucidi. Cerebellum.Cisterna magna. Thalami. Heart / Thorax 4-chamber view. RVOT view. LVOT view.4-orxbkd-uslsgim view. Diaphragm. Abdomen Stomach. Kidneys. Bladder. Spine [...] growth documented in this encounter Care Teams Reshipping Clerk Relationship Specialty Start Date End Date No Ref-Primary, Physician PCP - General 03/31/23 Oleg Aparicio, JULIAC [address] [place], [place] [address] Assigned Cancer Care Provider 05/06/23 Ana Oreilly MD [address] [place] [address] Assigned OBGYN Provider 05/06/23 documented as of this encounter
--- OUTSIDE RECORDS SUMMARY | 2023-08-24 10:13 | XMS_ITS | Encounter Summary ---
Author Organization [place] Address [address] [facility] [place] [address] Care Team Providers Care Parenting Skills Instructor Name Role Phone No Ref-Primary, Physician Primary Care Provider Oleg Aparicio PA-C Unavailable [phone] Ana Oreilly MD Unavailable [phone] Reason for Referral * Diagnostic Imaging Ultrasound (Routine) - Pending Review Specialty Diagnoses / Procedures Referred By Contsandy t Referred To Contact Radiology. Diagnoses Encounter for ultrasound to check growth Procedures [facility] US Comprehensive Single F/U Ori Adame MD [address] [place] [address] Referral ID Status Reason Start Date Expiration Date V isits Requested Visits Authorized [id number] Pending Review 05/31/2023 05/30/2024 1 1 Reason for Visit * Reason Comments Ultrasound RL2-reassess g rowth, EFW 15% Encounter Details Date Type Department Care Team (Late st Contact Info) Description 05/31/2023 11:30 AM CDT Office Visit [facility] [place] [address] [facility] [address] [place] [address] Ori Adame MD [address] [place] [address] Encounter for ultrasound to check [...] details of today's US at the [facility]. Ori Adame MD Maternal- Medicine documented in [...] OB givenhistory of PE. SBAR given to [facility] (Dr. Adame), see their note in Epic. documented in this encounter Plan of Treatment Upcoming Encounters Date Type Department Care Team (Late st Contact Info) Description 09/15/2023 2:30 PM CDT Office Visit [facility] [address] [place] [phone] Oleg Aparicio PA-C [address] [place], [place] [address] documented as of this encounter Results * [facility] US Comprehensive Single F/U (06/21/2023 [...] ? Study Date: ??06/21/2023 9:50am Pat. NO: ??[id number] ?Referring ??: TRISTA MELLO Site: ??[facility] ? Special Services Coordinator: Chanda LazoMELLY : ??1995 ?Age: ?? 28 [...] 2 lb 12 ?oz EFW by ?Hadlock (KWC-XR-GL-FL) Head / Face / Neck Biometry: Hat Presser ? 4.9 ? mm CM ?5.5 ? mm ANATOMY ----- The following structures appear normal: Head / Neck ? Cranium. Head size. Head shape. Lateral ventricles. Midline falx. Cerebellum. Cisterna magna. Thalami. Face ? Lips. Profile. Nose. Heart / Thorax ?4-chamber view. RVOT view. LVOT view. 4-jejjdz-jxfwjwr view. ? Diaphragm. Abdomen ? Stomach. Kidneys. [...] [place] Study Date: 06/21/2023 9:50am Pat. NO: [id number] Referring MD: TRISTA MELLO Site: [facility] Special Services Coordinator: Chanda Lazo RDMS : 1995 Age: [...] 2 lb 12 oz EFW by Hadlock (KQC-BB-NT-FL) Head / Face / Neck Biometry: Hat Presser 4.9 mm CM 5.5 mm ANATOMY ----- The following structures appear normal: Head / Neck Cranium. Head size. Head shape.Lateral ventricles. Midline falx. Cerebellum. Cisterna magna. Thalami. Face Lips. Profile. Nose. Heart / Thorax 4-chamber view. RVOT view. LVOT view.9-xjjgoy-oebxlig view. Diaphragm. Abdomen Stomach. Kidneys. Bladder. Spine [...] fluid volume appeared normal. Ori Adame MD [facility] US ORDERABL ES documented in this encounter Visit Diagnoses Diagnosis Encounter for ultrasound to check growth- Primary Encounter for ultrasound to check growth documented in this encounter Care Teams Parenting Skills Instructor Relationship Specialty Start Date End Date No Ref-Primary, Physician PCP - General 03/31/23 Oleg Aparicio, JULIAC [address] [place] [address] [address] [place] [address] Assigned Cancer Care Provider 05/06/23 Ana Oreilly MD [address] [place] [address] [address] [place] [address] Assigned OBGYN Provider 05/06/23 documented as of this encounter
--- OUTSIDE RECORDS SUMMARY | 2023-08-24 10:13 | XMS_ITS | Encounter Summary ---
Author Organization [facility] Address [address] [place] [address]. [place] [address] Care Team Providers Care Wellness Ambassador Name Role Phone No Ref-Primary, Physician Primary Care Provider Oleg Aparicio PA-C Unavailable [phone] Ana Oreilly MD Unavailable [phone] Encounter Details Date Type Department Care [...] Description 09/15/2023 2:30 PM CDT Office Visit [facility] [address] [place] [address] Oleg Aparicio PA-C [address] [place] [address] documented as of this encounter Visit Diagnoses Not on filedocumented in this encounter Care Teams Wellness Ambassador Relationship Specialty Start Date End Date No Ref-Primary, Physician PCP - General 03/31/23 Oleg Aparicio PA-C [address] [place] [address] [address] [place] [address] Assigned Cancer Care Provider 05/06/23 Ana Oreilly MD [address] [facility] [address] [place] [address] Assigned OBGYN Provider 05/06/23 documented as of this encounter
--- OUTSIDE RECORDS SUMMARY | 2023-08-24 10:13 | XMS_ITS | Encounter Summary ---
Author Organization [facility] Address [address] [facility] [place] [address] Care Team Providers Care Conventions Assistant Name Role Phone No Ref-Primary, Physician Primary Care Provider Oleg Aparicio PA-C Unavailable [phone] Ana Oreilly MD Unavailable [phone] Encounter Details Date Type Department Care Team (Late st Contact Info) Description 06/22/2023 2:00 PM CDT Lab [facility] [address] [facility] [address] [place] [address] Pulmonary embolism affecting in second [...] Description 09/15/2023 2:30 PM CDT Office Visit [facility] [address] [place] [phone] Oleg Aparicio PA-C [address] [place], [place] [address] documented as of this encounter Procedures Procedure [...] LAB - BLOOD ORDERABL ES [facility] Lab [address] [facility] [id number] documented in this encounter Visit Diagnoses Diagnosis Pulmonary embolism affecting in second trimester documented in this encounter Care Teams Conventions Assistant Relationship Specialty Start Date End Date No Ref-Primary, Physician PCP - General 03/31/23 Oleg Aparicio PA-C [address] [place] [address] Assigned Cancer Care Provider 05/06/23 Ana Oreilly MD [address] [place] [address] Assigned OBGYN Provider 05/06/23 documented as of this encounter
--- OUTSIDE RECORDS SUMMARY | 2023-08-24 10:13 | XMS_ITS | Encounter Summary ---
Author Organization [facility] Address [address] [facility] [place] [address] Care Team Providers Care Rn Tele Name Role Phone No Ref-Primary, Physician Primary Care Provider Oleg Aparicio PA-C Unavailable [phone] Ana Oreilly MD Unavailable [phone] Reason for Visit * Reason Comments Deep Vein Thrombosis Encounter Details Date Type Department Care Team (Late st Contact Info) Description 07/04/2023 2:30 PM CDT Office Visit [facility] [address] [place] [address] Oleg Aparicio PA-C [address] [place] [address] Pulmonary embolism affecting in second [...] included. [facility] [address] [place] [address] Main: [phone], Patient seen at: [facility] at [address] [place] [address] Outpatient Visit Note: Patient: Gabrielle Mcmahon : 1995 DEBORAH: July 04, 2023 Location of this internal communications writer at the time of this clinic visit was conducted: [facility]. Location of the patient at the time of this clinic visit was conducted: [facility] for [facility] Clotting [...] up. She was last seen by this internal communications writer back on 04/28/2023. Thrombosis History Summary: [...] both lower extremities. 03/08/2023, she presented to [facility] emergency department with chest pain. [...] today, the emergency department physician did call [facility] and consult them about [...] History: 04/28/2023, she established care with this internal communications writer and I determined that her pulmonary [...] and PmHx: All are reviewed by this internal communications writer today via electronic medical records Social [...] venous thromboembolism. Oleg Aparicio PA-C, MPAS Physician Head Banquet Waiter/Waitress [facility] [...] Description 09/15/2023 2:30 PM CDT Office Visit [facility] [address] [place] [phone] Oleg Aparicio PA-C [address] [place] [address] Scheduled Orders Name Type Priority [...] incidental documented in this encounter Care Teams Rn Tele Relationship Specialty Start Date End Date No Ref-Primary, Physician PCP - General 03/31/23 Oleg Aparicio PA-C [address] [place], [place] [address] Assigned Cancer Care Provider 05/06/23 Ana Oreilly MD [address] [place], [place] [address] Assigned OBGYN Provider 05/06/23 documented as of this encounter
--- OUTSIDE RECORDS SUMMARY | 2023-08-24 10:13 | XMS_ITS | Encounter Summary ---
Author Organization [facility] Address [address] [place] [address]. [place] [address] Care Team Providers Care Cook Supervisor Name Role Phone No Ref-Primary, Physician Primary Care Provider Oleg Aparicio PA-C Unavailable [phone] Ana Oreilly MD Unavailable [phone] Encounter Details Date Type Department Care [...] Description 09/15/2023 2:30 PM CDT Office Visit [facility] [address] [place] [address] Oleg Aparicio PA-C [address] [place] [address] documented as of this encounter Visit Diagnoses Not on filedocumented in this encounter Care Teams Cook Supervisor Relationship Specialty Start Date End Date No Ref-Primary, Physician PCP - General 03/31/23 Oleg Aparicio PA-C [address] [place] [address] [address] [place] [address] Assigned Cancer Care Provider 05/06/23 Ana Oreilly MD [address] [facility] [address] [place] [address] Assigned OBGYN Provider 05/06/23 documented as of this encounter
--- OUTSIDE RECORDS SUMMARY | 2023-08-24 10:14 | XMS_ITS | Clinical Summary ---
Author Organization [facility] Address [address] [place] [address] Care Team Providers Care Laboratory Tech Name Role Phone Elsewhere, Pcp Primary Care Provider Unavailabl e Source Comments Patient records contain information from all sites at [facility]. For routine questions regarding patient records, call [phone] during business hours, M-F 8:00 AM - 5:00 PM Central Time. Record requests for emergency care only can be directed to [phone] at any time.[facility] Allergies No known active allergies Medications Medication Sig Dispensed Refills Start Date End Date Status vuvbgfr-Bk-phvy-FA (VINATE ONE) 60 mg iron-1 mg per [...] How often do you attend chur or muslim services? More than 4 times per year 02/21/2022 Do you belong to any clubs o r organizations such as latter-day groups, unions, fraternal or athletic groups, or [...] and heating? Not hard at all 02/21/2022 [facility] [place] [facility] - Occupational Stress [...] Sex Assigned at Female 02/21/2022 11:00 AM RANGELAND MANAGEMENT SPECIALIST Gender Identity Female 02/21/2022 11:00 AM RANGELAND MANAGEMENT SPECIALIST Sexual Orientation Straight 02/21/2022 11 :00 AM RANGELAND MANAGEMENT SPECIALIST Last Filed Vital Signs Vital Sign Reading Time Taken Comments Blood Pressure - - Pulse - - Temperature 36.6 ??C (97.9 ??F) 02/24/2022 12:[address] Respiratory Rate - - Oxygen Saturation - - Inhaled Oxygen Concentration - - Weight 72.4 kg (159 lb 9.8 oz) 02/24/2022 12:38 PM RANGELAND MANAGEMENT SPECIALIST Height 169.7 cm (5' 6.81) 02/24/2022 12:[address] Body Mass Index 25.14 02/24/2022 12:38 PM RANGELAND MANAGEMENT SPECIALIST Plan of Treatment Health Maintenance Due Date [...] age to complete this topic Care Teams Laboratory Tech Relationship Specialty Start Date End Date Elsewhere, Pcp PCP - General Internal Medicine 02/24/22
--- OUTSIDE RECORDS SUMMARY | 2023-08-24 10:14 | XMS_ITS | Clinical Summary ---
Author Organization [facility] [place], [place] [address] Care Team Providers Care Meter Reader Chief Name Role Phone Marybeth Andrew MD Primary Care Provider + Allergies No known active allergies Medications No known medications Encounters Date Type Department Care Team Description 08/09/2023 Lab Requisition [facility] [phone] Jasmin Barrow MD from Last 3 Months [...] EXAM PLACENTA Routine 08/09/2023 11:19 AM CDT CUSTOMER SERVICE RECEPTIONIST THIN PREP PAP SCREEN IMAGED Routine 12/11/2020 2:40 PM CDT from Last 3 Months or Most Recently Relevant to Health Maintenance Results * LAB TRACKING EVENT (08/09/2023 11:19 AM CDT) Other (Other) Client Collect / Unknown 08/09/2023 11:19 AM CDT 08/09/2023 10:20 PM CDT Jasmin Barrow MD LAB BILL O NLY [facility] [address] [place] [id number], * PATH TISSUE EXAM PLACENTA (08/09/2023 11:19 AM CDT) Case Report Pathology Report ?Case: [id number] ? Authorizing Provider: ??Jasmin Barrow ??Collected: ? 08/09/2023 1119 ? MD Daja ? Ordering Location: ? [facility] ?Received: ?08/10/2023 0727 ? Pathologist: ? Dorothy Francis MD ? Specimen: ?Placenta ? 08/11/2023 12:40 PM CDT [facility] Final Diagnosis A) [...] 2. ??See comment 08/11/2023 12:40 PM CDT [facility] Comment While subtle, the [...] of the placenta. 08/11/2023 12:40 PM CDT [facility] Clinical Information Maternal history of bilateral pulmonary embolism. Liveborn vaginal delivery 36-2/7 weeks, 2800 g female . G2, P2. 08/11/2023 12:40 PM CDT [facility] Gross Description A) Received [...] the maternal surface. ??No lesion is identified. Bundle Tier sections: 1. ??Umbilical cord and membranes with insertion 2. ??Full-thickness with umbilical cord insertion 3-4. ??2 full-thickness 5. ??Maternal surface blood clot Placed in formalin at 9:55 AM on 08/10/2023 DPL 08/10/2023 08/11/2023 12:40 PM CDT [facility] Microscopic Description The final diagnosis is based on microscopic examination of appropriate sections of all specimens. 08/11/2023 12:40 PM CDT [facility] Additional Information Interpreted at [facility], Central Laboratory - [address] [place] [address], [place] [address] 08/11/2023 12:40 PM CDT [facility] Tissue SPECIMEN FROM PLACENTA / Unknown 08/09/2023 11:19 AM CDT 08/10/2023 7:27 AM CDT Jasmin Barrow MD PATHOLOGY/ CYTOLOGY [facility] [address] [place] [address], * CUSTOMER SERVICE RECEPTIONIST THIN PREP PAP SCREEN IMAGED (12/11/2020 2:40 PM CDT) Case Report Gynecologic Cytology Report ? Case: [id number] ? Authorizing Provider: ??Elizabeth Philip ?Collected: ? 12/11/2020 1440 ? MD Ofelia ? Ordering Location: ? [facility] ?Received: ?12/15/2020 0858 ? First Screen: ?[place], Harriet ? Specimen: ?CUSTOMER SERVICE RECEPTIONIST ThinPrep Vial Screening, Cervical/Vaginal ? 12/26/2020 2:03 PM CDT [facility] [employer] LABORAT[facility]-C ENTRAL LABORATORY INTERPRETATION/ RESULT NEGATIVE FOR INTRAEPITHELIAL LESION OR MALIGNANCY (NIL) (none) 12/26/2020 2:03 PM CDT [facility]- EN[facility]AL LABORATORY IMEN ADEQUACY Satisfactory for evaluation No endocervical component seen 12/26/2020 2:03 PM CDT [facility]- EN[facility]AL LABORATORY HPV REQUEST HPV if ASCUS 12/26/2020 2:03 PM CDT [facility] LAB[facility] Date of LMP 11/04/2020 12/26/2020 2:03 PM CDT [facility] Menstrual Status 12/26/2020 2:03 PM CDT [facility] Additional Information 12/26/2020 2:03 PM CDT [facility] Comment: Interpreted at [facility], Central Laboratory - [address] [place] [address], [place] [address] Automated Review Successful 12/26/2020 2:03 PM CDT [facility] LABORAT[facility] Comment:Specimen processed s uccessfully by automated helpdesk manager device, ThinPrep Imaging System, [employer] Note The pap test is a [...] and malignant lesions. 12/26/2020 2:03 PM CDT [facility] Other (Cervical/Vagina l) 12/11/2020 2:40 PM CDT 12/15/2020 8:58 AM CDT Elizabeth Philip MD PATHOLOGY/ CYTOLOGY [facility] [address] [place] [address], from Last 3 Months or Most Recently Relevant to Health Maintenance Care Teams Meter Reader Chief Relationship Specialty Start Date End Date Marybeth Andrew MD [address] [place] [address] PCP - General Family Practice 08/20/22
--- OUTSIDE RECORDS SUMMARY | 2023-08-24 10:14 | XMS_ITS | Encounter Summary ---
Author Organization [place] Address [address] [place] [address]. [place] [address] Care Team Providers Care Chief Station Engineer Name Role Phone No Ref-Primary, Physician Primary Care Provider Oleg Aparicio PA-C Unavailable [phone] Ana Oreilly MD Unavailable [phone] Encounter Details Date Type Department Care Team (Late st Contact Info) Description 04/28/2023 MyC Medical Advice [facility] [address] [place] [phone] Carmen Pollack RN 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 Tobacco Use [...] Bleeding and Clotting Disorders [address] [place] [address] [address] [place] [address] Oleg Aparicio PA-C [address] [place] [address] [address] [place], [place] [phone] documented as of this encounter Visit Diagnoses Not on filedocumented in this encounter Care Teams Chief Station Engineer Relationship Specialty Start Date End Date No Ref-Primary, Physician PCP - General 03/31/23 Oleg Aparicio PA-C [address] [place] [address] [address] [place] [address] Assigned Cancer Care Provider 05/06/23 Ana Oreilly MD [address] [address] [place] [address] Assigned OBGYN Provider 05/06/23 documented as of this encounter
--- OUTSIDE RECORDS SUMMARY | 2023-08-24 10:14 | XMS_ITS ---
Author Organization [facility] Address [address] [place] [address] Care Team Providers Care Shift Foreman Name Role Phone Unavailable Unavailable Unavailable Surgery Details Not on file Complications Check Surgery Details section. Procedure Estimated Blood Loss Check Surgery Details section. Procedure Findings Check Surgery Details section. Procedure Specimens Taken Check Surgery Details section.
--- OUTSIDE RECORDS SUMMARY | 2023-08-24 10:14 | XMS_ITS | Referral Summary ---
Author Organization [facility] Address [address] [place] [address] Care Team Providers Care Auto Hiker Name Role Phone Elsewhere, Pcp Primary Care Provider Unavailabl e Source Comments Patient records contain information from all sites at [facility]. For routine questions regarding patient records, call [phone] during business hours, M-F 8:00 AM - 5:00 PM Central Time. Record requests for emergency care only can be directed to [phone] at any time.[facility] Allergies No known active allergies Medications Medication Sig Dispensed Refills Start Date End Date Status [id number] (VINATE ONE) 60 mg iron-1 mg per [...] How often do you attend chur or religion services? More than 4 times per year 02/21/2022 Do you belong to any clubs o r organizations such as anglican groups, unions, fraternal or athletic groups, or [...] and heating? Not hard at all 02/21/2022 [facility] - [...] to sleep or slept in a senior care (including now)? No 02/21/2022 Nutrition Answer Date [...] Sex Assigned at Female 02/21/2022 11:00 AM GROUND CONTROL APPROACH TECHNICIAN Gender Identity Female 02/21/2022 11:00 AM GROUND CONTROL APPROACH TECHNICIAN Sexual Orientation Straight 02/21/2022 11 :00 AM GROUND CONTROL APPROACH TECHNICIAN Last Filed Vital Signs Vital Sign Reading Time Taken Comments Blood Pressure - - Pulse - - Temperature 36.6 ??C (97.9 ??F) 02/24/2022 12:[address] Respiratory Rate - - Oxygen Saturation - - Inhaled Oxygen Concentration - - Weight 72.4 kg (159 lb 9.8 oz) 02/24/2022 12:38 PM GROUND CONTROL APPROACH TECHNICIAN Height 169.7 cm (5' 6.81) 02/24/2022 12:[address] Body Mass Index 25.14 02/24/2022 12:38 PM GROUND CONTROL APPROACH TECHNICIAN Plan of Treatment Not on file Care Teams Auto Hiker Relationship Specialty Start Date End Date Elsewhere, Pcp PCP - General Internal Medicine 02/24/22
[2023-08-24 10:18] LABS: Basophils Percent Auto 1.1 % (0.0-3.0); Eosinophils Percent Auto 1.4 % (0.0-7.0); Hematocrit 41.2 % (33.0-51.0); Hemoglobin* 13.1 gm/dL (12.0-16.0); Immature Granulocytes Pct Auto 0.3 %; Lymphocytes Percent Auto 36.5 % (20-44); Mean Corpuscular HGB Conc 32 gm/dL (32-36); Mean Corpuscular Hemoglobin 29 pg (26-34); Mean Corpuscular Volume 91 fL (80-100); Monocytes Percent Auto 7.1 % (0.0-11.0); Neutrophils Percent Auto 53.6 % (42.0-72.0); Platelet Count* 243 K/uL (140-440); RDW Coefficient of Variation % 13.5 % (11.5-15.5); Red Blood Count 4.55 m/uL (4.00-5.20); White Blood Count* 3.51 K/uL (4.50-11.00)
[2023-08-24 10:22] LABS: Slide Review Reflex No
[2023-08-24 10:30] LABS: Chloride* 106 mmol/L (96-114)
[2023-08-24 10:31] LABS: Potassium* 3.8 mmol/L (3.6-5.1); Sodium* 140 mmol/L (135-149)
[2023-08-24 10:34] LABS: Anion Gap 5 mEq/L (7-15); Blood Urea Nitrogen* 11 mg/dL (5-24); Calcium* 9.1 mg/dL (8.4-10.6); Carbon Dioxide* 29 mmol/L (20-32); Creatinine* 0.6 mg/dL (0.5-1.5); Est. Creatinine Clearance* 138.17; Estimated Glomerular Filt Rate 127 ml/min; Glucose* 87 mg/dL (60-115)
[2023-08-24 10:46] LABS: NT Pro B Type NatriureticPept* 30 pg/mL
[2023-08-24 10:50] LABS: Troponin I* < 0.01 ng/mL (0.01-0.04)
== END 2023-08-24 12:31 | disposition home or self-care (01) ==
PROVIDERS: Emergency Provider Emergency Medicine; PCP Family Medicine
DX: R07.9 Chest pain, unspecified (principal); D72.819 Decreased white blood cell count, unspecified
CPT/HCPCS: 36415; 71275; 80048; 83880; 84484; 85025; 93005; 99283; 99284; 99285; Q9967

== ENCOUNTER 2023-10-05 15:31 | Outpatient (CLI) | payer BC, SELFPAY | END 2023-10-05 15:32 | disposition home or self-care (01) | LOC: NFLDREF 15:32 | PROVIDERS: PCP Family Medicine; Visit Provider Obstetrics & Gynecology | DX: N93.9 Abnormal uterine and vaginal bleeding, unspecified (principal); Z39.2 Encounter for routine postpartum follow-up | CPT/HCPCS: 84443 ==

== ENCOUNTER 2023-10-08 18:18 | Emergency (ER) | payer BC, SELFPAY ==
[2023-10-08 18:33] VITALS: BP 101/69; PULSE 89; RESP 16; TEMP 36.7; O2SAT 99; BMI 25.0
--- NOTE | 2023-10-08 19:17 | CRLHL7_ITS ---
For Patients: As a result of the Century Cures Act, medical imaging exams and procedure reports are released immediately into your electronic medical record. You may view this report before your referring provider. If you have questions, please contact your health care provider. Indication: Chest pain, history of pulmonary embolism Technique: DVT ultrasound of the bilateral lower extremities. Grayscale and color Doppler imaging utilized. Compression and augmentation as clinically warranted. Comparison: None Findings: All vessels are grossly compressible without evidence of filling defect to suggest DVT. No superficial thrombosis appreciated. Soft tissues are unremarkable. Impression: No significant sonographic abnormality appreciated. Dictated by Darshan Weaver MD @ 10/08/2023 9:12:38 PM (Electronically Signed)
--- NOTE | 2023-10-08 19:20 | ED.GENADULT ---
HPI - General Adult General Chief complaint: Extremity Pain/Injury, Lower Stated complaint: achy legs; blood clotting disorder Time Seen by Provider: 10/08/23 19:09 Source: patient Mode of arrival: ambulatory Limitations: no limitations History of Present Illness HPI narrative: 28-year-old female with a history of pulmonary embolism in presents to the ED for evaluation of left greater than right calf pain for the past 2 days. No swelling, no redness. History of PE in February while . Delivered in July. Had 6 week exam earlier this week, notes reviewed. Was started on Xarelto by Hematology at 6 weeks , has only been on this medication for a few weeks. Had previously been on b.i.d. Lovenox through the . Has a history of antithrombin 3 deficiency coagulopathy. Is planning on lifelong anticoagulation. No new shortness of breath. She does still have chest pain in the area of previous PE but it is unchanged. No exertional symptoms, feelings of tachycardia. No joint pain. Was told by her plastics fitter to come to an ED if she had persistent leg pain. No fever, recent trauma or illness. Past medical history mainly notable for the PN known clotting disorder now. Home meds are Xarelto 20 mg once daily. No allergies, nonsmoker. ROS is notable for the musculoskeletal symptoms as described above, otherwise denies times 12 systems. Related Data Home Medications ?Medication ?Instructions ?Recorded ?Confirmed rivaroxaban 20 mg tablet (Xarelto) 20 mg PO QDAY 10/05/23 10/08/23 Previous Rx's ?Medication ?Instructions ?Recorded hydrocortisone 2.5 % topical cream 1 applic MD BID-QID PRN 01/26/23 with perineal applicator hemorrhoids #30 grams (Anusol-HC) Allergies Allergy/AdvReac Type Severity Reaction Status Date / Time No Known Allergies Allergy Unknown Verified 10/08/23 18:32 [facility] Medical History labor ?O60.00 - labor without delivery, unspecified trimester (ICD-10) Low back pain ?M54.50 - Low back pain, unspecified (ICD-10) History of delivery ?Z87.51 - Personal history of pre-term labor (ICD-10) Obstetric vaginal laceration with second degree perineal laceration ?O70.1 - Second degree perineal laceration during delivery (ICD-10) Inflamed external hemorrhoid ?K64.4 - Residual hemorrhoidal skin tags (ICD-10) Chest wall pain ?R07.89 - Other chest pain (ICD-10) Surgical History History of third molar tooth extraction (2016) ?K08.409 - Partial loss of teeth, unspecified cause, unspecified class (ICD-10) Family History Mother Hx of blood clots Family/Other Heart disease Breast cancer, Onset Age: 90 Paternal Grandmother Pulmonary hypertension Diabetes Paternal Grandfather Lung cancer Diabetes 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: , 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, 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 Very rare alcohol use Exercise 3 times a week, HIIT 30 minutes What is your current living situation?: I presently have a place to live Problems where you live: no known problems Problems where you live details: N/A In the past 12 months, utilities in danger of being shut off: no In past 12 months, lack of transportation kept you from medical appts, meetings, work, or getting things needed for daily living: no In the past 12 mos, have been you worried that your food would run out before you had money to buy more?: never true In the past 12 mos, the food you bought just didn't last and you didn't have money to buy more?: never true Smoking Status: Former smoker Do you use any of these nicotine containing products: None Second hand tobacco smoke exposure: No How often do you have a drink containing alcohol: never How often do you have six or more drinks on one occasion: Never AUDIT-C Alcohol total score: 0 Non-prescribed substance use: denies use How often does anyone, including family, friends and others, physically hurt you: never How often does anyone, including family, friends and others, insult or talk down to you: never How often does anyone, including family, friends and others, threaten you with harm: never How often does anyone, including family, friends and others, scream or curse at you: never Little interest or pleasure in doing things: not at all Feeling down, depressed, or hopeless: not at all service: No Exam Const: Vital Signs, click to edit/add: Vital Signs - 24 hr 10/08/23 18:33 Temperature 98.1 F Pulse Rate [Pulse Oximeter] 89 Respiratory Rate 16 Blood Pressure [Ri ght Upper Arm] 101/69 Pulse Oximetry 99 Oxygen Delivery Me thod Room Air Documenting provider has reviewed patient's vital signs: yes Common normals: no apparent distress General appearance: cooperative and well kempt HENMT: Common normals: normocephalic and oropharynx normal Head and scalp: normocephalic Face and sinus: normal facial exam Mouth: oral and palatal mucosa normal Throat: posterior oropharynx normal Eye: Common normals: conjunctivae normal General eye: normal appearance of both eyes Conjunctiva: conjunctiva(e) normal Resp: Common normals: normal respiratory effort, no use of accessory muscles and clear to auscultation bilaterally Effort & inspection: able to speak in complete sentences Auscultation: clear to auscultation bilaterally Cardio: Common normals: regular rate, regular rhythm, S1 normal heart sound, S2 normal heart sound and no murmurs Rate: regular rate Rhythm: regular rhythm Heart sounds: S1 normal and S2 normal Extremity: Other: Legs symmetric. No redness or warmth. No obvious palpable cords. Slightly tender to palpation of left calf. Excellent pedal pulses and capillary refill bilaterally. Both knees with no signs of effusions, normal range of motion noted. Psych: Appearance: well kempt Attitude: engaged Activity/motor behavior: appropriate eye contact Insight: insight good Judgement: judgment good Skin: Common normals: no rashes or lesions noted General skin exam: no rashes or lesions noted Course Course ED Course: 28-year-old female anticoagulated on Xarelto presenting with left greater than right leg tenderness concerning for possible DVT. Also risk for compartment syndrome because of her anticoagulation. She has excellent pulses and no signs of compartment syndrome at this time nor any worrisome signs for DVT though she is high risk. I suspect that she probably has some arthralgias and myalgias associated with her anticoagulant. Counseled patient that unfortunately this is common as I know all too well. I would recommend that we double check a CPK, basic blood work and get an ultrasound of her legs to be sure. She was agreeable to this. Await findings. Reevaluation(s) Time of Reevaluation #1: 21:22 Reevaluation #1: Counseled patient on normal labs and ultrasound findings. Recommend conservative management. Okay to use Tylenol as needed for discomfort. Continue Xarelto. Alarm symptoms reviewed that would warrant ED presentation. Likely just mild myalgias and arthralgias which are common on these medications from [place] micro bleeds. Benefit outweighs risk of continuing on Xarelto. Patient verbalizes understanding and agreement in seems reassured. Vital Signs Vital signs: Initial Vital Signs Temperature 98.1 F 10/08/23 18:33 Temperature Source Temporal Artery Scan 10/08/23 18:33 Pulse Rate 89 10/08/23 18:33 Respiratory Rate 16 10/08/23 18:33 Blood Pressure 101/69 10/08/23 18:33 Blood Pressure Mean 79 10/08/23 18:33 Blood Pressure Position Sitting 10/08/23 18:33 Pulse Oximetry 99 10/08/23 18:33 Oxygen Delivery Method Room Air 10/08/23 18:33 Vital Signs Temperature 98.1 F 10/08/23 18:33 Pulse Rate 89 10/08/23 18:33 Respiratory Rate 16 10/08/23 18:33 Blood Pressure 101/69 10/08/23 18:33 Pulse Oximetry 99 10/08/23 18:33 Oxygen Delivery Method Room Air 10/08/23 18:33 Temperature 98.1 F 10/08/23 18:33 Pulse Rate 89 10/08/23 18:33 Respiratory Rate 16 10/08/23 18:33 Blood Pressure 101/69 10/08/23 18:33 Pulse Oximetry 99 10/08/23 18:33 Oxygen Delivery Method Room Air 10/08/23 18:33 Medical Decision Making Lab Data Lab results reviewed: Yes I reviewed the patient's lab results Lab results narrative: All normal, as expected Labs: Lab Results 10/08/23 Range/Units 19:37 WBC 4.20 L (4.50-11.00) K/uL RBC 4.44 (4.00-5.20) m/uL Hgb 12.5 (12.0-16.0) gm/dL Hct 39.7 (33.0-51.0) % MCV 89 (80-100) fL MCH 28 (26-34) pg MCHC 32 (32-36) gm/dL RDW Coeff of Erasmo 14.5 (11.5-15.5) % Plt Count 251 (140-440) K/uL Neut % (Auto) 62.1 (42.0-72.0) % Lymph % (Auto) 25.0 (20-44) % [place] % (Auto) 11.2 H (0.0-11.0) % Eos % (Auto) 1.2 (0.0-7.0) % Baso % (Auto) 0.5 (0.0-3.0) % Neut # (Auto) 2.60 (1.7-7.0) K/uL Lymph # (Auto) 1.10 (0.90-2.90) K/uL [place] # (Auto) 0.50 (0.00-0.90) K/UL Eos # (Auto) 0.10 (0.00-0.50) K/uL Baso # (Auto) 0.00 (0.00-0.30) K/uL Abs Immat Gran (auto) 0.00 (0.00-0.30) K/uL Imm/Tot Granulo (auto) 0.0 % Sodium 139 (135-149) mmol/L Potassium 4.1 (3.6-5.1) mmol/L Chloride 107 (96-114) mmol/L Carbon Dioxide 27 (20-32) mmol/L Anion Gap 5 L (7-15) mEq/L BUN 20 (5-24) mg/dL Creatinine 0.7 (0.5-1.5) mg/dL Estimated Creat Clear 114.01 Estimated GFR 122 ml/min Glucose 96 (60-115) mg/dL Calcium 9.0 (8.4-10.6) mg/dL Total Creatine Kinase 76 (41-117) U/L C-Reactive Protein < 0.5 L (0.5-1.0) mg/dL Imaging Data Venous Doppler ultrasound both legs: Attestation: I have reviewed the pertinent imaging results. My impression: No DVT Radiologist's impression: Findings: All vessels are grossly compressible without evidence of filling defect to suggest DVT. No superficial thrombosis appreciated. Soft tissues are unremarkable. Impression: No significant sonographic abnormality appreciated. Discharge Plan Discharge Clinical Impression: Myalgia Patient Disposition: Home, Self-Care Condition: Stable Additional Instructions: As we discussed, there are no signs of dangerous complication today. Your CPK levels told me that there is no bleeding into the muscles that is significant enough to cause damage or reduced blood flow. The remainder of your other blood work looks great. Your ultrasound does not show any clot. Unfortunately, these types of aches can be very common on Xarelto and any of the other blood thinners in this class. This is mainly because of micro bleeding into the joints and muscles. Continue taking the Xarelto as prescribed. Come back to the emergency department if you have any severe worsening of symptoms, severe shortness of breath new chest pain, lightheadedness severe weakness or other worrisome findings. Activity Level: No Restrictions Discharge Diet: Regular Prescriptions: No Action hydrocortisone [Anusol-HC] 2.5 % cream with perineal applicator 1 applic MD BID-QID PRN (Reason: hemorrhoids) Qty: 30 0RF Xarelto 20 mg tablet 20 mg PO QDAY Rx Instructions: must administer with evening meal Follow Up/Referrals: Marybeth Andrew MD [Primary Care Provider] - Stand Alone Forms: [employer] Info Instructions
[2023-10-08 19:44] LABS: Basophils Percent Auto 0.5 % (0.0-3.0); Eosinophils Percent Auto 1.2 % (0.0-7.0); Hematocrit 39.7 % (33.0-51.0); Hemoglobin* 12.5 gm/dL (12.0-16.0); Mean Corpuscular HGB Conc 32 gm/dL (32-36); Mean Corpuscular Hemoglobin 28 pg (26-34); Mean Corpuscular Volume 89 fL (80-100); Monocytes Percent Auto 11.2 % (0.0-11.0); Neutrophils Percent Auto 62.1 % (42.0-72.0); Platelet Count* 251 K/uL (140-440); RDW Coefficient of Variation % 14.5 % (11.5-15.5); Red Blood Count 4.44 m/uL (4.00-5.20)
[2023-10-08 19:54] LABS: Slide Review Reflex No
[2023-10-08 19:58] LABS: Chloride* 107 mmol/L (96-114); Potassium* 4.1 mmol/L (3.6-5.1); Sodium* 139 mmol/L (135-149)
[2023-10-08 20:00] LABS: Creatine Kinase* 76 U/L (41-117); Creatinine* 0.7 mg/dL (0.5-1.5); Est. Creatinine Clearance* 114.01; Estimated Glomerular Filt Rate 122 ml/min
[2023-10-08 20:01] LABS: Anion Gap 5 mEq/L (7-15); Blood Urea Nitrogen* 20 mg/dL (5-24); Carbon Dioxide* 27 mmol/L (20-32); Glucose* 96 mg/dL (60-115)
[2023-10-08 20:06] LABS: C Reactive Protein* < 0.5 mg/dL (0.5-1.0)
== END 2023-10-08 21:36 | disposition home or self-care (01) ==
PROVIDERS: Emergency Provider Family Medicine; PCP Family Medicine
DX: M79.18 Myalgia, other site (principal)
CPT/HCPCS: 36415; 80048; 82550; 85025; 86140; 93970; 99283; 99284

== ENCOUNTER 2023-12-01 14:32 | Outpatient (CLI) | payer BC, SELFPAY ==
--- OUTSIDE RECORDS SUMMARY | 2023-12-01 14:39 | XMS_ITS | Encounter Summary ---
Author Organization [facility] Address [address] [place] [address] Care Team Providers Care Oil Field Worker Name Role Phone No Ref-Primary, Physician Primary Care Provider Oleg Aparicio PA-C Unavailable [phone] Ana Oreilly MD Unavailable [phone] Encounter Details Date Type Department Care Team (Late st Contact Info) Description 10/18/2023 Telephone [facility] [address] [place] [id number] Sandie White, RN 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 Tobacco Use Types Packs/Day Years Used Date Smoking Tobacco: Never Passive Smoke Exposure: Never Smokeless Tobacco: Never Alcohol Use Standard Drinks/Week Comments Not Currently 0 (1 standard drink = 0.6 oz pur e alcohol) Adolescent Education Answer Date Record ed Getting School Help Needed Not on file 11/13 Comments Yes Sex and Gender Information Value Date Recorded Sex Assigned at Not on file Gender Identity Not on file Sexual Orientation Not on file documented as of this encounter Miscellaneous Notes * Telephone Encounter - Sandie White RN - 10/18/2023 3:38 PM CDT [id number] Gabrielle Mcmahon 28 year old female CBCD Diagnosis: PE, possible antithrombin III deficiency CBCD Provider: Oleg Aparicio PA-C Incoming call from Gabrielle. She wanted me to let Oleg Aparicio PA-C know that her mom tested negative for antithrombin III deficiency back in 2016. However, her mom is hospitalized with another blood clot and will get tested again. RN will route this to provider as FYI. Of note, Gabrielle spoke with Oleg Aparicio PA-C on 09/14 regarding previous Anithrombin III testing. He recommended she check another Antithrombin III level in one month (order in place). RN assisted her in scheduling a lab visit tomorrow afternoon. Sandie White RN, BSN, PCCN Nurse Clinician [facility] [address] [place] [address] [address] [address] Office, direct: [phone] Main office number: [phone] Pronouns: She, her, hers documented in this encounter Plan of Treatment Not on file documented as of this encounter Visit Diagnoses Not on filedocumented in this encounter Care Teams Oil Field Worker Relationship Specialty Start Date End Date No Ref-Primary, Physician PCP - General 03/31/23 Oleg Aparicio PA-C [address] [place] [address] [address] [place], [place] [address] Assigned Cancer Care Provider 05/06/23 Ana Oreilly MD [address] [facility] [address] [place], [place] [address] Assigned OBGYN Provider 05/06/23 documented as of this encounter
--- OUTSIDE RECORDS SUMMARY | 2023-12-01 14:39 | XMS_ITS | Encounter Summary ---
Author Organization [place] Address [address] [facility] [place] [address] Care Team Providers Care Beet Flumer Name Role Phone No Ref-Primary, Physician Primary Care Provider Oleg Aparicio PA-C Unavailable [phone] Ana Oreilly MD Unavailable [phone] Reason for Referral * Genomics (Routine) - Authorized Specialty Diagnoses / Procedures Referred By Contac t Referred To Contact Diagnoses History of pulmonary embolism Family history of blood clots Procedures Factor 2 and 5 mutation analysis Oleg Aparicio PA-C [address] [place] [id number] Referral ID Status Reason Start Date Expiration Date V isits Requested Visits Authorized [id number] Authorized 09/15/2023 09/14/2024 1 1 Reason for Visit * Reason Comments CLOTTING Encounter Details Date Type Department Care Team (Late st Contact Info) Description 09/15/2023 2:30 PM CDT Office Visit [facility] [address] [place] [address] Oleg Aparicio PA-C [address] [facility] [address] [place] [address] History of pulmonary embolism (Primary Dx); Family history of blood clots [...] Sign Reading Time Taken Comments Blood Pressure 111/73 09/15/2023 2:37 PM CDT Pulse 82 09/15/2023 2:37 PM CDT Temperature 36.5 ??C (97.7 ??F) 09/15/2023 2:37 PM CD T Respiratory Rate - - Oxygen Saturation 99% 09/15/2023 2:37 PM CDT Inhaled Oxygen Concentration - - Weight 72.2 kg (159 lb 3.2 oz) 09/15/2023 2:37 P M CDT Height 170.2 cm (5' 7) 09/15/2023 2:37 PM CDT Body Mass Index 24.93 09/15/2023 2:37 PM CDT documented in this encounter Progress Notes * Oleg Aparicio PA-C - 09/15/2023 2:30 PM CDT Images from the original note were not included. [facility] [address] [place] [address] Main: [phone], Patient seen at: [facility] at [address] [place] [address] Outpatient Visit Note: Patient: Gabrielle Mcmahon : 1995 DEBORAH: September 15, 2023 Location of this teletypewriter installer at the time of this clinic visit was conducted: [facility], [facility]. Location of the patient at the time of this clinic visit was conducted: [facility], [facility]. Reason for visit: . Bilateral pulmonary embolism found on 03/08/2023. Clinical History Summary: Gabrielle is a 28 year old female who is currently at 31 weeks gestation, who was found to have a large bilateral proximal pulmonary embolism back on 03/08/2023 (when she was around 14 weeks gestation), currently on enoxaparin at 100 mg subQ Q 12 hours, returns to clinic today for follow up. She was last seen by this teletypewriter installer back on 07/04/2023 Thrombosis History Summary: Found to be around [...] of acute DVT in both lower extremities. 03/08/2023 (when she was around 14 weeks gestation), she presented to [facility] emergency department with chest pain. CTA chest was done at the time showing large filling defect seen throughout the bilateral proximal pulmonary arteries consistent with extensive pulmonary emboli. Mild prominence of the main pulmonary artery without definite evidence of intraventricular septal inversion. She apparently did undergo echocardiogram at the time showing normal left ventricular function with no evidence of right heart strain. According to Gabrielle today, the emergency department physician abi [facility] Interventional Radiology and consult them about the need of interv ention. At the time, Gabrielle was told that the risks were too high for her to undergo intervention for her pulmonary embolism. She ultimately stayed in the hospital for 2-3 days and was discharged home on enoxaparin. Gabrielle was tested negative for factor V Leiden mutation in the past as her mother apparently has ahistory of blood clot in her brain. 04/28/2023, she established care with this teletypewriter installer and I determined that her pulmonary embolic [...] her , labor and delivery and . Interim History: 08/09/2023, she delivered her baby at [place]. She reports that it was an induction of labor. Shedelivered her child vaginally without epidural anesthesia. She reports no abnormal or excessive bleeding. She did experience some bleeding and pelvic cramping about 3 days post and reportedly had an ultrasound done with some finding of possible retained product of conception for which she reports that she was given some medications and has no further significant bleeding since. 08/22/2023, her Anti-Xa level was 0.82 and thus I recommended that she stay on current dose of Enoxaparin at 100 mg SubQ Q 12 hours. She reports that she is not breast feeding. She returns today for 1 month post follow up with this teletypewriter installer for which it is my plan to consider inherit thrombophilia workup at this visit. She reports that she has no bleeding issues. However, she has some bruising on her lower extremities where she is giving herself the enoxaparin injections. She is complaining of a indurated lump on her right anterior thigh that is painful and has been there for the past 2 weeks. Otherwise, she denies any other bleeding issues. ROS: Denies any bleeding complications. Specifically, no frequent epistaxis. No issues with oral mucosalbleeding. Denies any hematuria or blood in stools. Denies any shortness of breath. No chest pain. No cough. No fever. Medications, Allergies and PmHx: All are reviewed by this teletypewriter installer today via electronic medical records 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: Deferred. Family History: Deferred. Objective: Vitals: BP 111/73 Pulse 82 Temp 97.7 ??F (36.5 ??C) (Oral) Ht 1.702 m (5' 7) Wt 72.2 kg (159 lb 3.2 oz) LMP 11/28/2022 SpO2 99% BMI 24.93 kg/m?? Exam: There is a marble size subcutaneous hematoma over the anterior portion of her right thigh. Some bruising throughout both of her thighs from the enoxaparin injections. Assessment: In summary, Gabrielle is a 28 year old female who is currently at 31 weeks gestation, who wasfound to have a large bilateral proximal pulmonary embolism back on 03/08/2023 (when she was around 14 weeks of gestation), currently on enoxaparin at 100 mg SubQ Q 12 hours, returns to clinic today for her follow up visit. Adam was having quite a bit of nausea [...] that . Diagnosis: provoked pulmonary embolism on 03/08/2023 when she was around 14 weeks of gestation. Family history of blood clot, description was consistent with cerebral sinus thrombosis with her mother. Post . Delivered her child back on 08/09/2023. Plan: The plan is to have her complete 6 weeks post enoxaparin injections at full therapeutic dose. Her 6 weeks post rosanna is on 09/20/2023 (5 days from now). She is instructed to continue enoxaparin at 100 mg SubQ Q 12 hours through 09/20/2023 and then discontinue thereafter. I will obtain an inherit thrombophilia workup today as she does have a family history of blood clot with description consistent with cerebral sinus venous thrombosis with her mother. Her and her have some questions in regard to these testing and I have answered all their questions to their satisfaction. It is my recommendation and is also current [place] [employer]emat[employer] (JHON) guidelines to be placed back on pharmacological DVT/PE prophylaxis with future pregnancies. This can simply done by placing her on enoxaparin at 40 mg SubQ Q 24 hours once she is found to be in the future. Shecertainly can call our clinic if she should find to be in the future and our clinic can start her on the enoxaparin injections. I explain to her that since it will only be for prevention, she does not require to be on therapeutic dose of the enoxaparin for future pregnancies UNLESS she is found to have inherit thrombophilia on today's testing. At this time, I have no further plans to see her back on a routine basis. But definitely will see her back if she becomes once again or if she should find to have significant thrombophilia on today's testing. Oleg Aparicio PA-C, MPAS Physician [employer] [facility]. 30 minutes spent by me on the date of the encounter doing chart review, history and exam, documentation and further activities per the note. Time IN: 14:35 Time OUT: 15:00 documented in this encounter Plan of Treatment Not on file documented as of this encounter Procedures Procedure Name Priority Date/Time Associated Diagnosis Comments FACTOR 2 AND 5 MUTATION ANALYSIS Routine 09/15/2023 3:05 PM CDT History of pulmonary embolism Family history of blood clots PROTEIN S ANTIGEN FREE Routine 09/15/2023 3:05 PM CDT History of pulmonary embolism Family history of blood clots PROTEIN C CHROMOGENIC Routine 09/15/2023 3:05 PM CDT History of pulmonary embolism Family history of blood clots ANTITHROMBIN III Routine 09/15/2023 3:05 PM CDT History of pulmonary embolism Family history of blood clots documented in this encounter Results * Factor 2 and 5 mutation analysis (09/15/2023 3:05 PM CDT) [facility] METHODOLOGY The regions of genomic DNA containing the F5 gene mutation R506Q(1691G>A) and the Factor 2 (Prothrombin [id number]) gene mutation were simultaneously amplified using the polymerase chain reaction. The amplified products were digested with restriction endonuclease TaqI and products were analyzed by gel electrophoresis. 09/15/2023 3:05 PM CDT [facility] (LDL) RESULTS Factor V 1691G>A (Leiden) RESULTS: Mutation analyzed: 1691G>A Factor V 1691G>A (Leiden) Interpretation: ABSENT Factor V 1691G>A (Leiden) mutation genotype: G/G FACTOR 2/PROTHROMBIN RESULTS: Mutation analyzed: 34943A>A Factor 2 Mutation Interpretation: ABSENT Factor 2 Mutation genotype: G/G 09/15/2023 3:05 PM CDT [facility] (LDL) INTERPRETATION The patient is negative for the Factor V 1691G>A (Leiden) and negative for the Factor 2 mutation. (Electronically signed by: Antoine Bennett MD September 20, 2023 12:36 PM) 09/15/2023 3:05 PM CDT [facility] (LDL) COMMENTS If a patient is the recipient of an allogeneic bone marrow transplant, this test must be done on a pre-transplant sample or buccal swab. A previous allogeneic bone marrow transplant will interfere with test results. Call the [facility] ([phone]) for instructions on sample collection for these patients. 09/15/2023 3:05 PM CDT [facility] (LDL) DISCLAIMER This test was developed and its performance characteristics determined by [facility]. It has not been cleared or approved by the FDA. The laboratory is regulated under CLIA as qualified to perform high-complexity testing. This test is used for clinical purposes. It should not be regarded as investigational or for research. A resident/fellow in an accredited training program was involved in the selection of testing, review of laboratory data, and/or interpretation of this case. I, as the senior physician, attest that I: (i) confirmed appropriate testing, (ii) examined the relevant raw data for the specimen(s); and (iii) rendered or confirmed the interpretation(s) . 09/15/2023 3:05 PM CDT [facility] (LDL) FACTOR 2 INTERPRETATION Factor 2 Mutation Interpretation: ABSENT 09/15/2023 3:05 PM CDT [facility] (LDL) FACTOR V INTERPRETATION Factor V 1691G>A (Leiden) Interpretation: ABSENT 09/15/2023 3:05 PM CDT [facility] (LDL) Specimen Description Blood: ACD 09/15/2023 3:05 PM CDT [facility] (LDL) Blood STRUCTURE OF RIGHT UPPER LIMB / Unknown Venipuncture / Unknown 09/15/2023 3:05 PM CDT 09/15/2023 3:09 PM CDT Oleg Aparicio PA-C LAB - GENOMICS Performing Organization Address [facility]/ZIP Co de Phone Number [facility]ST[facility] (LDL) [facility] [address] [facility], [address] * Protein S Antigen Free (09/15/2023 3:05 PM CDT) Protein S Antigen Free 63 55 - 125 % 09/16/2023 9:59 AM CDT [facility] Blood STRUCTURE OF RIGHT UPPER LIMB / Unknown Venipuncture / Unknown 09/15/2023 3:05 PM CDT 09/15/2023 3:09 PM CDT Oleg Aparicio PA-C LAB - BLOOD ORDERABL ES Performing Organization Address [facility] Co de Phone Number [facility] [address] [facility], [address] [address] * Protein C chromogenic (09/15/2023 3:05 PM CDT) Protein C Chromogenic 103 70 - 170 % 09/16/2023 9:58 AM CDT [facility] Blood STRUCTURE OF RIGHT UPPER LIMB / Unknown Venipuncture / Unknown 09/15/2023 3:05 PM CDT 09/15/2023 3:09 PM CDT Oleg Aparicio PA-C LAB - BLOOD ORDERABL ES Performing Organization Address City/[facility]/ZIP Co de Phone Number [facility] [address] [facility], [address] [address] * (ABNORMAL) Antithrombin III (09/15/2023 3:05 PM CDT) Antithrombin III 51(L) 85 - 135 % 09/16/2023 9:58 AM CDT [facility] Comment: This patient has a decreased antithrombin activity indicating congenital or acquired antithrombin deficiency. Acquired causes of antithrombin deficiency include liver disease, acute thrombotic event, disseminated intravascular coagulation, nephrotic syndrome, L-asparaginase therapy, poor nutrition, inflammatory bowel disease, thrombotic microangiopathies, and heparin therapy. Blood STRUCTURE OF RIGHT UPPER LIMB / Unknown Venipuncture / Unknown 09/15/2023 3:05 PM CDT 09/15/2023 3:09 PM CDT Oleg Aparicio PA-C LAB - BLOOD ORDERABL ES [facility] [address] [facility] [address], [address] [place] [address], [facility] documented in this encounter Visit Diagnoses Diagnosis History of pulmonary embolism- Primary Personal history of pulmonary embolism Family history of blood clots Family history of other blood disorders documented in this encounter Care Teams Beet Flumer Relationship Specialty Start Date End Date No Ref-Primary, Physician PCP - General 03/31/23 Oleg Aparicio PA-C [address] [facility] [address] [place], [place] [address] Assigned Cancer Care Provider 05/06/23 Ana Oreilly MD [address] [place] [address] Assigned OBGYN Provider 05/06/23 documented as of this encounter
--- OUTSIDE RECORDS SUMMARY | 2023-12-01 14:39 | XMS_ITS | Encounter Summary ---
Author Organization [place] Address [address] [facility] [place] [address] Care Team Providers Care Cartridge Feeder Name Role Phone No Ref-Primary, Physician Primary Care Provider Oleg Aparicio PA-C Unavailable [phone] Ana Oreilly MD Unavailable [phone] Encounter Details Date Type Department Care Team (Latest Contact Info) Description 11/23/2023 Travel 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 Tobacco Use Types Packs/Day [...] on filedocumented in this encounter Care Teams Cartridge Feeder Relationship Specialty Start Date End Date No Ref-Primary, Physician PCP - General 03/31/23 Oleg Aparicio PA-C [address] [place] [address] [address] [place] [address] Assigned Cancer Care Provider 05/06/23 Ana Oreilly MD [address] [address] [place] [address] Assigned OBGYN Provider 05/06/23 documented as of this encounter
--- OUTSIDE RECORDS SUMMARY | 2023-12-01 14:39 | XMS_ITS | Referral Summary ---
Author Organization [place] Address [address] [facility] [place] [address] Care Team Providers Care Merry Go Round Operator Name Role Phone No Ref-Primary, Physician Primary Care Provider Oleg Aparicio PA-C Unavailable [phone] Ana Oreilly MD Unavailable [phone] Encounters Date Type Department Care Team Description 11/24/2023 [facility] Medical Advice [facility] [address] [place] [address] Zachary Bean 11/24/2023 Telephone [facility] [address] [place] [address] Zachary Bean 11/23/2023 Travel 11/23/2023 10:00 AM CDT Lab [facility] [address] [facility] [address] [place] [address] Antithrombin III deficiency (H) 11/21/2023 Telephone [facility] [address] [facility] [address] [place] [address] Sandie White RN 11/09/2023 [facility] Medical Advice [facility] [address] [place] [address] Zachary Bean 10/25/2023 11:00 AM CDT Virtual Visit [facility] [address] [place] [address] Oleg Aparicio PA-C Handler, IMELDA Sánchez Antithrombin III deficiency (H) (Primary Dx) 10/21/2023 Telephone [facility] [address] [place] [address] Oleg Aparicio PA-C 10/21/2023 Telephone [facility] [address] [place] [address] Ron Hanley RN 10/20/2023 Travel 10/20/2023 9:00 AM CDT Lab [facility] [address] [facility] [address] [place] [phone] Pulmonary embolism affecting in second trimester; Family history of blood clots; 31 weeks gestation of ; History of pulmonary embolism 10/18/2023 Telephone [facility] [address] [address] Sandie Whiet RN 10/10/2023 Telephone [facility] [address] [address] Oleg Aparicio PA-C 09/22/2023 MyC Medical Advice [facility] [address] [address] Oleg Aparicio PA-C 09/19/2023 [facility] [address] [address] Oleg Aparicio PA-C 09/15/2023 Travel 09/15/2023 2:30 PM CDT Office Visit [facility] [place] [address] Oleg Aparicio PA-C History of pulmonary embolism (Primary Dx); Family history of blood clots 08/31/2023 Telephone [facility] [address] [place] [address] [address] [place] [address] Herrity, Elsa Moran RN from Last 3 Months Allergies No known active allergies Medications Medication Sig Dispensed Refills Start Date End Date Status Vit-Fe Fumarate-FA ( VITAMIN PO) Take 1 tablet by mouth daily Active apixaban ANTICOAGULANT (ELIQUIS) 5 MG tabletIndications:Hist ory of pulmonary embolism,Family history of blood clots,Antithrombin III deficiency (H) Take 1 tablet (5 mg) by mouth 2 times daily. 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/27/2021 Immunizations Name Administration Dates Next Due Influenza [...] 09/15/2023 2:37 PM CD T Respiratory Rate 16 07/18/2023 8:40 AM CDT Oxygen Saturation 99% 09/15/2023 2:37 PM CDT Inhaled Oxygen Concentration - - Weight 72.2 kg (159 lb 3.2 oz) 09/15/2023 2:37 P M CDT Height 170.2 cm (5' 7) 09/15/2023 2:37 PM CDT Body Mass Index 24.93 09/15/2023 2:37 PM CDT Plan of Treatment Not on file Procedures Procedure Name Priority Date/Time Associated Diagnosis Comments ANTITHROMBIN III Routine 10/20/2023 9:10 AM CDT History of pulmonary embolism Family history of blood clots LOW MOLECULAR WEIGHT HEPARIN ANTI XA LEVEL Routine 10/20/2023 9:10 AM CDT Pulmonary embolism affecting in second trimester Family history of blood clots 31 weeks gestation of FACTOR 2 AND 5 MUTATION ANALYSIS Routine [...] pulmonary embolism Family history of blood clots CHLAMYDIA TRACHOMATIS/NEISSERIA GONORRHOEAE BY PCR STAT 07/15/2023 6:23 PM CDT HIV 1&2 ANTIBODY (EXTERNAL RESULT) Routine 01/26/2023 from Last 3 Months or Most Recently Relevant to Health Maintenance Results * (ABNORMAL) Low Molecular Weight Heparin Anti Xa Level (10/20/2023 9:10 AM CDT) Anti Xa Low Molecular Weight >2.00(HH) For Reference Range, See Comment IU/mL 10/21/2023 8:17 AM CDT [facility] Blood BLOOD SPECIMEN / Unknown Venipuncture / Unknown 10/20/2023 9:10 AM CDT 10/20/2023 9:10 AM CDT Narrative [facility] - 10/21/2023 8:17 AM CDT If collected 4-6 hours after administration: Adults: If administered only once daily with a dose of 1.5 mg/k.0-2.0 IU/mL. If administered twice daily with a dose of 1 mg/k.50-1.0 IU/mL. Pediatrics: If administered twice daily: 0.50-1.0 IU/mL. Oleg Aparicio PA-C LAB - BLOOD ORDERABL ES Performing Organization Address City/State/[facility] Co de Phone Number [facility] [address] [facility] [address] [address] * (ABNORMAL) Antithrombin III (10/20/2023 9:10 AM CDT) Only the most recent of2 resultswithin the time period is included. [facility] Antithrombin III 54(L) 85 - 135 % 10/21/2023 9:03 AM CDT [facility] Comment: This patient has a decreased antithrombin activity indicating congenital or acquired antithrombin deficiency. Acquired causes of antithrombin deficiency include liver disease, acute thrombotic event, disseminated intravascular coagulation, nephrotic syndrome, L-asparaginase therapy, poor nutrition, inflammatory bowel disease, thrombotic microangiopathies, and heparin therapy. Blood BLOOD SPECIMEN / Unknown Venipuncture / Unknown 10/20/2023 9:10 AM CDT 10/20/2023 9:10 AM CDT Oleg Aparicio PA-C LAB - BLOOD ORDERABL ES SPECIAL COAGULATION [facility] [address] [facility], [address] [address] * Factor 2 and 5 mutation analysis (09/15/2023 3:05 PM CDT) METHODOLOGY The regions of genomic DNA containing the F5 gene mutation R506Q(1691G>A) and the Factor 2 (Prothrombin [id number]) gene mutation were simultaneously amplified using the polymerase chain reaction. The amplified products were digested with restriction endonuclease TaqI and products were analyzed by gel electrophoresis. 09/15/2023 3:05 PM T MOLECULAR DIAGNOSTICS (LDL) RESULTS Factor V 1691G>A (Leiden) RESULTS: Mutation analyzed: 1691G>A Factor V 1691G>A (Leiden) Interpretation: ABSENT Factor V 1691G>A (Leiden) mutation genotype: G/G FACTOR 2/PROTHROMBIN RESULTS: Mutation analyzed: 91278G>A Factor 2 Mutation Interpretation: ABSENT Factor 2 Mutation genotype: G/G 09/15/2023 3:05 PM T MOLECULAR DIAGNOSTICS (LDL) INTERPRETATION The patient is negative for the Factor V 1691G>A (Leiden) and negative for the Factor 2 mutation. (Electronically signed by: Antoine Bennett MD September 20, 2023 12:36 PM) 09/15/2023 3:05 PM T MOLECULAR DIAGNOSTICS (LDL) COMMENTS If a patient is the recipient of an allogeneic bone marrow transplant, this test must be done on a pre-transplant sample or buccal swab. A previous allogeneic bone marrow transplant will interfere with test results. Call the [email or web address] ([phone]) for instructions on sample collection for these patients. 09/15/2023 3:05 PM [facility] [employer] DIAGNOSTICS (LDL) DISCLAIMER This test was developed and its performance characteristics determined by [email or web address]. It has not been cleared or [...] confirmed the interpretation(s) . 09/15/2023 3:05 PM T MOLECULAR DIAGNOSTICS (LDL) FACTOR 2 INTERPRETATION Factor [...] CDT Oleg Aparicio PA-C LAB - GENOMICS MOLECULAR DIAGNOSTICS (LDL) [facility] [address] [facility], [address] * Protein S Antigen Free (09/15/2023 3:05 PM CDT) Protein S Antigen Free 63 55 - 125 % 09/16/2023 9:59 AM CDT SPECIAL COAGULATION Blood STRUCTURE OF RIGHT UPPER LIMB / Unknown Venipuncture / Unknown 09/15/2023 3:05 PM CDT 09/15/2023 3:09 PM CDT Oleg Aparicio PA-C LAB - BLOOD ORDERABL ES Performing Organization Address City/[facility]/ZIP Co de Phone Number [facility] [address] [facility], [address] [place] [address], [place] * Protein C chromogenic (09/15/2023 3:05 PM CDT) Protein C Chromogenic 103 70 - 170 % 09/16/2023 9:58 AM CDT [facility] Blood STRUCTURE OF RIGHT UPPER LIMB / Unknown Venipuncture / Unknown 09/15/2023 3:05 PM CDT 09/15/2023 3:09 PM CDT Oelg Aparicio PA-C LAB - BLOOD ORDERABL ES [facility] [address] [facility], [address] [place] [phone] * Chlamydia trachomatis/Neisseria gonorrhoeae by PCR (07/15/2023 6:23 PM CDT) Pathologist [facility] Chlamydia Trachomatis Negative Negative 07/16/2023 12:02 PM CDT [facility] Comment: Negative for C. trachomatis rRNA by production director mediated amplification. A negative result by production director mediated amplification does not preclude the presence of infection because results are dependent on proper and adequate collection, absence of inhibitors and sufficient rRNA to be detected. Neisseria gonorrhoeae Negative Negative 07/16/2023 12:02 PM CDT [facility] Comment:Negative for N. gono rrhoeae rRNA by production director mediated amplification. A negative result by production director mediated amplification does not preclude the presence [...] [facility] Lab [address] [facility], [address] [place] [phone] * HIV-1 Antibody (External Result) (01/26/2023) Pathologist [facility] HIV 1&2 Antibody (External) Negative Nonreactive EXTERNAL LAB Patient Reported LAB - HIM EXTERNAL R ESULT EXTERNAL LAB External Lab from Last 3 Months or Most Recently Relevant to Health Maintenance Advance Directives For more information, please contact: [phone] * Full Code (Latest Code Status on File) Date Activated Date Inactivated Comments 07/15/2023 7:25 PM 07/18/2023 1:55 PM All basic an d advanced life-sustaining interventions are performed as appropriate Question Answer Comments Code status determined by: Discussion with patie nt/ legal decision maker Care Teams Merry Go Round Operator Relationship Specialty Start Date End Date No Ref-Primary, Physician PCP - General 03/31/23 Oleg Aparicio, PABrightC [facility] [address] [place] [address] Assigned Cancer Care Provider 05/06/23 Ana Oreilly MD [address] [facility] [address] [place] [address] Assigned OBGYN Provider 05/06/23
--- OUTSIDE RECORDS SUMMARY | 2023-12-01 14:39 | XMS_ITS | Encounter Summary ---
Author Organization [place] Address [address] [facility] [place] [address] Care Team Providers Care Can Intake Worker Name Role Phone No Ref-Primary, Physician Primary Care Provider Oleg Aparicio PA-C Unavailable [phone] Ana Oreilly MD Unavailable [phone] Encounter Details Date Type Department Care Team (Latest Contact Info) Description 10/20/2023 Travel 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 Tobacco Use Types Packs/Day [...] filedocumented in this encounter Care Teams Can Intake Worker Relationship Specialty Start Date End Date No Ref-Primary, Physician PCP - General 03/31/23 Oleg Aparicio PA-C [address] [place] [address] [address] [place] [address] Assigned Cancer Care Provider 05/06/23 Ana Oreilly MD [address] [address] [place] [address] Assigned OBGYN Provider 05/06/23 documented as of this encounter
--- OUTSIDE RECORDS SUMMARY | 2023-12-01 14:39 | XMS_ITS | Encounter Summary ---
Author Organization [place] Address [address] [place] [address]. [place] [address] Care Team Providers Care Cable Assembler Name Role Phone No Ref-Primary, Physician Primary Care Provider Oleg Aparicio PA-C Unavailable [phone] Ana Oreilly MD Unavailable [phone] Encounter Details Date Type Department Care Team (Late st Contact Info) Description 09/22/2023 [facility] Medical Advice [facility] [address] [place] [address] Oleg Aparicio PA-C [address] [place] [address] 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 Tobacco Use Types [...] on filedocumented in this encounter Care Teams Cable Assembler Relationship Specialty Start Date End Date No Ref-Primary, Physician PCP - General 03/31/23 Oleg Aparicio PA-C [address] [place] [address] Assigned Cancer Care Provider 05/06/23 Ana Oreilly MD [address] [facility] [address] [place], [place] [address] Assigned OBGYN Provider 05/06/23 documented as of this encounter
--- OUTSIDE RECORDS SUMMARY | 2023-12-01 14:39 | XMS_ITS | Encounter Summary ---
Author Organization [place] Address [address] [facility] [place] [address] Care Team Providers Care Sales Support Associate Name Role Phone No Ref-Primary, Physician Primary Care Provider Oleg Aparicio PA-C Unavailable [phone] Ana Oreilly MD Unavailable [phone] Encounter Details Date Type Department Care Team (Late st Contact Info) Description 11/09/2023 [facility] Medical Advice [facility] [address] [place] [address] Zachary Bean 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 Tobacco Use Types Packs/Day Years [...] filedocumented in this encounter Care Teams Sales Support Associate Relationship Specialty Start Date End Date No Ref-Primary, Physician PCP - General 03/31/23 Oleg Aparicio PA-C [address] [place] [address] Assigned Cancer Care Provider 05/06/23 Ana Oreilly MD [address] [facility] [address] [place] [address] Assigned OBGYN Provider 05/06/23 documented as of this encounter
--- OUTSIDE RECORDS SUMMARY | 2023-12-01 14:39 | XMS_ITS | Clinical Summary ---
Author Organization [place] Address [address] [place] [address] Care Team Providers Care Maintenance Carpenter Name Role Phone No Ref-Primary, Physician Primary Care Provider Oleg Aparicio PA-C Unavailable [phone] Ana Oreilly MD Unavailable [phone] Allergies No known active allergies Medications [...] 04/12/2023 Absence seizure 12/27/2021 Myoclonic jerking 12/27/2021 Encounters Date Type Department Care Team Description 11/24/2023 MyC Medical Advice [facility] [address] [place] [address] Zachary Bean 11/24/2023 Telephone [facility] [address] [place] [address] Zachary Bean 11/23/2023 10:00 AM CDT Lab [facility] [address] [place] [address] Antithrombin III deficiency (H) 11/23/2023 Travel 11/21/2023 Telephone [facility] [address] [place] [address] Sandie White, MAC 11/09/2023 [facility] Medical Advice [facility] [address] [place] [address] Zachary Bean 10/25/2023 11:00 AM CDT Virtual Visit [facility] [address] [place] [address] Oleg Aparicio PA-C HandlerPrincess GC Antithrombin III deficiency (H) (Primary Dx) 10/21/2023 Telephone [facility] [address] [place] [address] Oleg Aparicio PA-C 10/21/2023 Telephone [facility] [address] [place] [address] Ron Hanley RN 10/20/2023 9:00 AM CDT Lab [facility] [address] [place] [address] Pulmonary embolism affecting in second trimester; Family history of blood clots; 31 weeks gestation of ; History of pulmonary embolism 10/20/2023 Travel 10/18/2023 Telephone [facility] [address] [place] [phone] Sandie White, MAC 10/10/2023 Telephone [facility] [address] [facility] [address] [place] [address] Oleg Aparicio PA-C 09/22/2023 MyC Medical Advice [facility] [address] [facility] [address] [place] [address] Oleg Aparicio PA-C 09/19/2023 Telephone [facility] [address] [facility] [address] [place] [address] Oleg Aparicio PA-C 09/15/2023 2:30 PM CDT Office Visit [facility] [address] [facility] [address] [place] [address] Oleg Aparicio PA-C History of pulmonary embolism (Primary Dx); Family history of blood clots 09/15/2023 Travel 08/31/2023 Telephone [facility] [address] [facility] [address] [place] [address] Elsa Ariza RN from Last 3 Months Immunizations Name Administration [...] 09/15/2023 2:37 PM CDT Plan of Treatment Health Maintenance Due Date Last Done Comments ADVANCE CARE PLANNING 1997 ANNUAL REVIEW OF HM ORDERS 1997 YEARLY PREVENTIVE VISIT 1997 HPV IMMUNIZATION (1 - 3-dose series) 2012 HEPATITIS C SCREENING 05/13/2015 HEPATITIS B IMMUNIZATION (1 of 3 - 19+ 3-dose series) 2016 PHQ-2 (once per calendar year) 2023 COVID-19 Vaccine ( - season) 2023 INFLUENZA VACCINE (#1) 2023 01/25/2022 PAP 10/04/2026 10/05/2023, 10/05/2023, 12/11/2020 DTAP/TDAP/TD IMMUNIZATION (2 - Td or Tdap) 06/22/2033 06/23/2023 RSV VACCINE (1 - 1-dose 75+ series) 2072 HIV SCREENING Completed 01/26/2023 CHLAMYDIA SCREENING Discontinued 07/15/2023 MENINGITIS IMMUNIZATION Aged Out No l onger eligible based on patient's age to complete this topic Pneumococcal Vaccine: Pediatrics (0 to 5 Years) and At-Risk Patients (6 to 64 Years) Aged Out No longer eligible b ased on patient's age to complete this topic [...] Anti Xa Level (10/20/2023 9:10 AM CDT) [facility] Anti Xa Low Molecular Weight >2.00(HH) For [...] BLOOD ORDERABL ES [facility] [address] [facility], [address] [place] [address] * (ABNORMAL) Antithrombin III (10/20/2023 9:10 AM CDT) Only the most recent of2 resultswithin the time period is included. Antithrombin III 54(L) 85 - 135 % 10/21/2023 9:03 AM CDT SPECIAL COAGULATION Comment: This patient has a [...] ORDERABL ES SPECIAL COAGULATION Special Coagulation [address] [facility], [address] [place] [address] * Factor 2 and 5 mutation analysis (09/15/2023 3:05 PM CDT) Pathologist [facility] METHODOLOGY The regions of genomic DNA containing the F5 gene mutation R506Q(1691G>A) and the Factor 2 (Prothrombin [id number]) gene mutation were simultaneously amplified using the polymerase chain reaction. The amplified products were digested with restriction endonuclease TaqI and products were analyzed by gel electrophoresis. 09/15/2023 3:05 PM CDT MOLECULAR DIAGNOSTICS (LDL) RESULTS Factor V 1691G>A (Leiden) RESULTS: Mutation analyzed: 1691G>A Factor V 1691G>A (Leiden) Interpretation: ABSENT Factor V 1691G>A (Leiden) mutation genotype: G/G FACTOR 2/PROTHROMBIN RESULTS: Mutation analyzed: 18385W>A Factor 2 Mutation Interpretation: ABSENT Factor 2 [...] will interfere with test results. Call the [facility] ([phone]) for instructions on sample collection for these patients. 09/15/2023 3:05 PM CDT MOLECULAR DIAGNOSTICS (LDL) DISCLAIMER This test was developed and its performance characteristics determined by [facility]. It has not been cleared or [...] CDT Oleg Aparicio PA-C LAB - GENOMICS [facility] (LDL) [facility] [address] [facility], [address] * Protein S Antigen Free (09/15/2023 3:05 PM CDT) Protein S Antigen Free 63 55 - 125 % 09/16/2023 9:59 AM CDT SPECIAL COAGULATION Blood STRUCTURE OF RIGHT UPPER LIMB / Unknown Venipuncture / Unknown 09/15/2023 3:05 PM CDT 09/15/2023 3:09 PM CDT Oleg Aparicio PA-C LAB - BLOOD ORDERABL ES Performing Organization Address City/[facility]/ZIP Co de Phone Number UM [facility]agulation [address] [facility], [address] [place], [place] [address] * Protein C chromogenic (09/15/2023 3:05 PM CDT) Pathologist [facility] Protein C Chromogenic 103 70 - 170 % 09/16/2023 9:58 AM CDT SPECIAL COAGULATION Blood STRUCTURE OF RIGHT UPPER LIMB / Unknown Venipuncture / Unknown 09/15/2023 3:05 PM CDT 09/15/2023 3:09 PM CDT Oleg OREILLY-C LAB - BLOOD ORDERABL ES Performing Organization Address City/[facility]/ZIP Co de Phone Number SPECIAL COAGULATION [facility] Special Coagulation [address] [facility], [address] [phone] * Chlamydia trachomatis/Neisseria gonorrhoeae by PCR (07/15/2023 6:23 PM CDT) Pathologist [facility] Chlamydia Trachomatis Negative Negative 07/16/2023 12:02 PM CDT [facility] Comment: Negative for C. trachomatis rRNA by head operator mediated amplification. A negative result by head operator mediated amplification does not preclude the presence of infection because results are dependent on proper and adequate collection, absence of inhibitors and sufficient rRNA to be detected. Neisseria gonorrhoeae Negative Negative 07/16/2023 12:02 PM CDT [facility] Comment:Negative for N. gono rrhoeae rRNA by head operator mediated amplification. A negative result by head operator mediated amplification does not preclude the [...] [place] Inf. Diseases Diag. Lab [address] [facility], [address] [place] [address] * HIV-1 Antibody (External Result) (01/26/2023) HIV 1&2 Antibody (External) Negative Nonreactive EXTERNAL LAB Patient Reported LAB - HIM EXTERNAL R ESULT EXTERNAL LAB External Lab from Last 3 Months or Most Recently Relevant to Health Maintenance Advance Directives For more information, please contact: [phone] * Full Code (Latest Code Status on File) Date Activated Date Inactivated Comments 07/15/2023 7:25 PM 07/18/2023 1:55 PM All basic an d advanced life-sustaining interventions are performed as appropriate Question Answer Comments Code status determined by: Discussion with patie nt/ legal decision maker Care Teams Maintenance Carpenter Relationship Specialty Start Date End Date No Ref-Primary, Physician PCP - General 03/31/23 Oleg Aparicio, PABrightC [address] [place], [place] [address] Assigned Cancer Care Provider 05/06/23 Ana Oreilly MD [address] [address] [place] [address] Assigned OBGYN Provider 05/06/23
--- OUTSIDE RECORDS SUMMARY | 2023-12-01 14:39 | XMS_ITS | Encounter Summary ---
Author Organization [place] Address [address] [facility] [place] [address] Care Team Providers Care Ferryboat Ticket Taker Name Role Phone No Ref-Primary, Physician Primary Care Provider Oleg Aparicio PA-C Unavailable [phone] Ana Oreilly MD Unavailable [phone] Encounter Details Date Type Department Care Team (Late st Contact Info) Description 04/28/2023 [facility] for Bleeding and Clotting Disorders [address] [facility] [address] [place] [address] Carmen Pollack RN 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 [...] on filedocumented in this encounter Care Teams Ferryboat Ticket Taker Relationship Specialty Start Date End Date No Ref-Primary, Physician PCP - General 03/31/23 Oleg Aparicio PA-C [address] [place] [address] Assigned Cancer Care Provider 05/06/23 Ana Oreilly MD [address] [place] [address] Assigned OBGYN Provider 05/06/23 documented as of this encounter
--- OUTSIDE RECORDS SUMMARY | 2023-12-01 14:39 | XMS_ITS | Encounter Summary ---
Author Organization [place] Address [address] [place] [address]. [place] [address] Care Team Providers Care Front Office Java Developer Name Role Phone No Ref-Primary, Physician Primary Care Provider Oleg Aparicio PA-C Unavailable [phone] Ana Oreilly MD Unavailable [phone] Encounter Details Date Type Department Care Team ([facility] st Contact Info) Description 09/19/2023 Telephone [facility] for [facility] [address] [address] Oleg Aparicio PA-C [address] [address] 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 Tobacco Use Types Packs/Day [...] Telephone Encounter - Oleg Aparicio PA-C - 09/19/2023 9:55 AM CDT Images from the original note were not included. [facility] for Ble[facility] Clotting Disorders [address] [place] [address] [address], [place] [address] Main: [phone], Patient: Gabrielle Mcmahon : 1995 Date of this note written: September 19, 2023 This brief writer spoke with the patient on 09/19/2023 at 09:45am and communicated the Antithrombin III level test result to her. I explain to her that her Antithrombin III level is low at 51% (normal 85-135%). I explain that it is possible that she could have antithrombin III deficiency, likely congenital given her family history. However, I also explain to her that in general, I do recommend repeat testing done around 1-2 months after before confirmation of the diagnosis. Thus at this time, my recommendation is to have her stay on anticoagulation therapy for another 1 month and then repeat her Antithrombin III level. I explain to Gabrielle, since she is not breast feeding her baby, we can transition her to oral anticoagulant. We agreed upon having her stop enoxaparin and restart rivaroxaban at 20 mg PO Qday. I havesent in a prescription of rivaroxaban to her preferred pharmacy. She is instructed to discontinue her enoxaparin today and start rivaroxaban at 20 mg PO Qday with food tonight. We will recheck her Antithrombin III level in one month. If it is still low, consider having her speak with a genetic counselor and potentially proceed with genetic testing for inherit Antithrombin III deficiency. Component Latest Ref Rng 09/15/2023 3:05 PM Antithrombin III Chromogenic 85 - 135 % 51 (L) Prot C Chromogenic 70 - 170 % 103 Protein S Antigen Free 55 - 125 % 63 Oleg Aparicio PA-C, MPAS Physician Patcher [facility] for Bleeding and Clotting Disorders. documented in this encounter Plan of Treatment Not on file documented as of this encounter Results * (ABNORMAL) Antithrombin III (10/20/2023 9:10 AM CDT) [facility] Antithrombin III 54(L) 85 - 135 % [...] - BLOOD ORDERABL ES [facility] Special Coagulation [address] [facility], Room [address] [place] [address] documented in this encounter Visit Diagnoses Diagnosis History of pulmonary embolism- Primary Personal history of pulmonary embolism Family history of blood clots Family history of other blood disorders Pulmonary embolism affecting in second trimester documented in this encounter Care Teams Front Office Java Developer Relationship Specialty Start Date End Date No Ref-Primary, Physician PCP - General 03/31/23 Oleg Aparicio PA-C [address] [facility] [address] [place], [place] [address] Assigned Cancer Care Provider 05/06/23 Ana Oreilly MD [address] [facility] [address] [place] [address] Assigned OBGYN Provider 05/06/23 documented as of this encounter
--- OUTSIDE RECORDS SUMMARY | 2023-12-01 14:39 | XMS_ITS | Encounter Summary ---
Author Organization [place] Address [address] [place] [address]. [place] [address] Care Team Providers Care Tender Coordinator Name Role Phone No Ref-Primary, Physician Primary Care Provider Oleg Aparicio PA-C Unavailable [phone] Ana Oreilly MD Unavailable [phone] Encounter Details Date Type Department Care Team ([facility] st Contact Info) Description 10/10/2023 Telephone [facility] for Bleeding and Clotting Disorders [facility] [address] [address] Oleg Aparicio PA-C [address] [address] 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 Tobacco Use Types [...] Telephone Encounter - Oleg Aparicio PA-C - 10/10/2023 8:47 AM CDT Images from the original note were not included. [facility] for Bleeding and Clotting Disorders [address] [place] [address] [address], [place] [address] Main: [phone], Telephone Note: Patient: Gabrielle Mcmahon : 1995 Date of this note written: October 10, 2023 Patient is currently on rivaroxaban at 20 mg PO Qday. She is calling reporting that her menstrual bleeding last week was rather heavy with her changing her pads and tampons every hour for 1.5 days. She reports that her hemoglobin done at her Supplier Relationship Director follow up appointment on 10/07/2023 was 12.6. This last menstrual period was her first period since she delivered her child and she is also on anticoagulation therapy. Thus it is not surprising that it could be a bit heavier. I have asked her tocall us back if her next period is as heavy and at which time, we can consider having her take sometranexamic acid orally during her period. She also is complaining of some joint pain since she started on rivaroxaban and is noticing that she needed to catch her breath at times. I explain to her that joint pain is not a common side effect of rivaroxaban and it is unlikely that her mild shortness of breath is related to a new DVT/PE as she is on anticoagulation therapy. Oleg Aparicio PA-C, MPAS Physician Folder Seamer [facility] for Bleeding and Clotting Disorders. documented in this encounter Plan of Treatment Not on file documented as of this encounter Visit Diagnoses Not on filedocumented in this encounter Care Teams Tender Coordinator Relationship Specialty Start Date End Date No Ref-Primary, Physician PCP - General 03/31/23 Oleg Aparicio PA-C [address] [place], [place] [address] Assigned Cancer Care Provider 05/06/23 Ana Oreilly MD [address] [place] [address] Assigned OBGYN Provider 05/06/23 documented as of this encounter
--- OUTSIDE RECORDS SUMMARY | 2023-12-01 14:39 | XMS_ITS | Encounter Summary ---
Author Organization [place] Address [address] [facility] [place] [address] Care Team Providers Care Hydroponics Worker Name Role Phone No Ref-Primary, Physician Primary Care Provider Oleg Aparicio PA-C Unavailable Ana Oreilly MD Unavailable [phone] Encounter Details Date Type Department Care Team (Late st Contact Info) Description 11/24/2023 Telephone [facility] [address] [place] [address] Zachary Bean 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 Tobacco Use Types [...] as of this encounter Progress Notes * Zachary Bean - 11/24/2023 4:51 PM CDT I called Gabrielle to follow up on my [employer] message sent on 11/08/23 as I have not heard back from the patient but saw that labs were drawn on 11/23/23. I wanted to touch base with the patient and reach out if she would like to proceed with her test given the PA outcome/estimates. No authorization isrequired. However, I was unable to reach Gabrielle. I left a voicemail with my name, phone number, and a brief reason for calling. I also sent a [employer]aur message to follow up with the patient. Zachary Bean Genomics Billing Carpet [facility] Molecular Diagnostics [facility] [address] [facility] [place] [facility] [place] [address] [email or web address] Office: [phone] Fax: Employed by [employer] documented in this encounter Plan of Treatment Not on file documented as of this encounter Visit Diagnoses Not on filedocumented in this encounter Care Teams Hydroponics Worker Relationship Specialty Start Date End Date No Ref-Primary, Physician PCP - General 03/31/23 Oleg Aparicio, PABrightC [address] [place], [place] [address] Assigned Cancer Care Provider 05/06/23 Ana Oreilly MD [address] [place] [address] Assigned OBGYN Provider 05/06/23 documented as of this encounter
--- OUTSIDE RECORDS SUMMARY | 2023-12-01 14:39 | XMS_ITS | Encounter Summary ---
Author Organization [place] Address [address] [place] [address]. [place] [address] Care Team Providers Care Code Enforcement Supervisor Name Role Phone No Ref-Primary, Physician Primary Care Provider Oleg Aparicio PA-C Unavailable [phone] Ana Oreilly MD Unavailable [phone] Encounter Details Date Type Department Care Team ([facility] st Contact Info) Description 10/21/2023 Telephone [facility] for Ble[facility] [address] [address] Oleg Aparicio PA-C [address] [address] 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 Tobacco Use Types [...] Telephone Encounter - Oleg Aparicio PA-C - 10/21/2023 9:54 AM CDT Images from the original note were not included. [facility] for Ble[facility] Clotting Disorders [address] [place] [address] [address], [place] [address] Main: [phone], Telephone Note: Patient: Gabrielle Mcmahon : 1995 Date of this note written: October 21, 2023 This radio script writer called the patient on 10/21/2023 at 09:40am to communicate the lab result done yesterdayto her. I told her to ignore the Anti-Xa LMWH level as she is no longer on enoxaparin and I am not entirelysure why the lab decided to draw this level and run it. Rivaroxaban can cause an elevated Anti-Xa level but since the test is NOT specifically for rivaroxaban, it is not calibrated to be interpreted while the patient is on rivaroxaban. Thus this test result does not mean anything to this radio script writer despite that it is >2.0 I explain to Gabrielle, more importantly her Antithrombin III level comes back once again low at 54% (normal 85-125%). I explain to Gabrielle that with her personal history of venous thromboembolism (bilateral pulmonary embolism during ), it is concerning that she could have inherit antithrombin III deficiency. Gabrielle is able to obtain additional information about her mother's blood clotting history. Her mother had a ischemic stroke in the past (which is an arterial thrombosis), and just last week, she developed a seemingly unprovoked right biceps area arterial thrombosis. According to [facility], her mother's antithrombin III testing was within normal range. I explain to Gabrielle that now she is found to have persistently low antithrombin III levels, her risk of recurrent venous thromboembolism is rather high even without her being . Thus it is myrecommendation that she should maintain on indefinite anticoagulation therapy. The patient is rather anxious of a recurrent VTE and thus she is very willing to stay on indefinite anticoagulation therapy. Today, she continues to complaint of some bilateral leg achy feeling and pain for which she actually seek medical attention the other day without any significant findings. She also reports pruritus on her scalp and legs. She is concern that these are side effects from rivaroxaban. I explain to her that although pruritus has been described as a side effect of rivaroxaban, leg pain is not a common side effect being described. I propose that we switch her over to apixaban at 5 mg PO Q 12 hours andsee if her side effects improves. She is in agreement with this. I have sent in an apixaban prescription today to her preferred pharmacy. Finally, I will have our genetic counselor reach out to the patient to 1) document a pedigree and 2) discuss possibly genetic testing for antithrombin III deficiency mutation (depending on her insurance coverage). If a genetic mutation is found, her child might undergo specified genetic testing in the future to determine if he has that specified genetic mutation. I have answered all Gabrielle's questions to her satisfaction today. Component Latest Ref Rng 09/15/2023 3:05 PM 10/20/2023 9:10 AM Antithrombin III Chromogenic 85 - 135 % 51 (L) 54 (L) Oleg Aparicio PA-C, MPAS Physician Physical Sciences Professor [facility] for Bleeding and Clotting Disorders. documented in this encounter Plan of Treatment Not on file documented as of this encounter Visit Diagnoses Diagnosis History of pulmonary embolism- Primary Personal history of pulmonary embolism Family history of blood clots Family history of other blood disorders Antithrombin III deficiency (H) Primary hypercoagulable state documented in this encounter Care Teams Code Enforcement Supervisor Relationship Specialty Start Date End Date No Ref-Primary, Physician PCP - General 03/31/23 Oleg Aparicio PA-C [address] [place], [place] [address] Assigned Cancer Care Provider 05/06/23 Ana Oreilly MD [address] [place], [place] [address] Assigned OBGYN Provider 05/06/23 documented as of this encounter
--- OUTSIDE RECORDS SUMMARY | 2023-12-01 14:39 | XMS_ITS | Encounter Summary ---
Author Organization [place] Address [address] [facility] [place] [address] Care Team Providers Care Infantryman Name Role Phone No Ref-Primary, Physician Primary Care Provider Oleg Aparicio PA-C Unavailable [phone] Ana Oreilly MD Unavailable [phone] Encounter Details Date Type Department Care Team (Late st Contact Info) Description 11/21/2023 Telephone [facility] for Bleeding and Clotting Disorders [address] [place] [address] Sandie White RN 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 Tobacco Use Types Packs/Day [...] encounter Miscellaneous Notes * Telephone Encounter - Ron Hanley RN - 11/21/2023 9:36 AM CDT Called and spoke with Gabrielle who has two concerns. 1) She has not heard back from genetic testing billing department. I directed her to the Podcast Ready message from 11/08 and advised that she can call the number listed, or our clinic with additional questions. 2) Gabrielle reports loose stools with urgency ~3-4 hours after taking her Eliquis. This does not happen every time she takes it. It happens about once every 4-5 days. GI upset is not a listed side effect of apixiban. She will try to take the medication with a full meal going forward. If GI symptoms persist she will reach out to our clinic about trying another medication. Ron WEBER RN [facility] for Bleeding and Clotting Disorders Office: [phone] Clinic: [phone] * Telephone Encounter - Sandie White RN - 11/21/2023 9:16 AM CDT [id number] Randalamitamir Mcmahon 28 year old female CBCD Diagnosis: PE CBCD Provider: Oleg Anthony had a question regarding blood draw and Eliquis. She can be reached at [phone] RN will route to RNMIKE Hanley. Sandie White RN, BSN, PCCN Nurse Clinician [facility] for Bleeding and Clotting Disorders [address] [place] [address] Office, direct: [phone] Main office number: [phone] Pronouns: She, her, hers documented in this encounter Plan of Treatment Not on file documented as of this encounter Visit Diagnoses Not on filedocumented in this encounter Care Teams Infantryman Relationship Specialty Start Date End Date No Ref-Primary, Physician PCP - General 03/31/23 Oleg Aparicio PA-C [address] [place] [address] Assigned Cancer Care Provider 05/06/23 Ana Oreilly MD [address] [place] [address] Assigned OBGYN Provider 05/06/23 documented as of this encounter
--- OUTSIDE RECORDS SUMMARY | 2023-12-01 14:39 | XMS_ITS | Encounter Summary ---
Author Organization [place] Address [address] [place] [address]. [place] [address] Care Team Providers Care Ambulette Driver Name Role Phone No Ref-Primary, Physician Primary Care Provider Oleg Aparicio PA-C Unavailable [phone] Ana Oreilly MD Unavailable [phone] Encounter Details Date Type Department Care Team ([facility] st Contact Info) Description 08/31/2023 Telephone [facility] for Bleeding and Clotting Disorders [address] [place] [address] Elsa Ariza RN 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 Tobacco Use Types Packs/Day [...] on filedocumented in this encounter Care Teams Ambulette Driver Relationship Specialty Start Date End Date No Ref-Primary, Physician PCP - General 03/31/23 Oleg Aparicio PA-C [address] [place] [address] Assigned Cancer Care Provider 05/06/23 Ana Oreilly MD [address] [address] Assigned OBGYN Provider 05/06/23 documented as of this encounter
--- OUTSIDE RECORDS SUMMARY | 2023-12-01 14:39 | XMS_ITS | Encounter Summary ---
Author Organization [place] Address [address] [place] [address]. [place] [address] Care Team Providers Care Data Entry Analyst Name Role Phone No Ref-Primary, Physician Primary Care Provider Oleg Aparicio PA-C Unavailable [phone] Ana Oreilly MD Unavailable [phone] Encounter Details Date Type Department Care Team (Late st Contact Info) Description 08/23/2023 Telephone [facility] for Bleeding and Clotting Disorders [address] [facility] [address] [place] [address] Oleg Aparicio PA-C [address] [place], [place] [address] 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 Tobacco Use Types Packs/Day Years [...] 08, had Hep Xa level yesterday in [place],no results yet. She was calling to see if she should have labs done prior to her visit on September 14. Discussed with AFIA Greer who would like to wait to get labs [facility]. Communicated to patient that Oleg would discuss labs at upcoming visit. Carmen Pollack, MSN, RN, PHN -Nurse Clinician, [facility] for Bleeding & Clotting Disorders [phone] documented in this encounter Plan of Treatment Not on file documented as of this encounter Visit Diagnoses Not on filedocumented in this encounter Care Teams Data Entry Analyst Relationship Specialty Start Date End Date No Ref-Primary, Physician PCP - General 03/31/23 Oleg Aparicio, PA-C [address] [place] [address] Assigned Cancer Care Provider 05/06/23 Ana Oreilly MD [address] [facility] [address] [place] [address] Assigned OBGYN Provider 05/06/23 documented as of this encounter
--- OUTSIDE RECORDS SUMMARY | 2023-12-01 14:39 | XMS_ITS | Encounter Summary ---
Author Organization [place] Address [address] [facility] [place] [address] Care Team Providers Care Peoplesoft Name Role Phone No Ref-Primary, Physician Primary Care Provider Oleg Aparicio PA-C Unavailable [phone] Ana Oreilly MD Unavailable [phone] Encounter Details Date Type Department Care Team (Latest Contact Info) Description 09/15/2023 Travel 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 Tobacco Use Types Packs/Day [...] on filedocumented in this encounter Care Teams Peoplesoft Relationship Specialty Start Date End Date No Ref-Primary, Physician PCP - General 03/31/23 Oleg Aparicio PA-C [address] [place] [address] [address] [place] [address] Assigned Cancer Care Provider 05/06/23 Ana Oreilly MD [address] [address] [place] [address] Assigned OBGYN Provider 05/06/23 documented as of this encounter
--- OUTSIDE RECORDS SUMMARY | 2023-12-01 14:39 | XMS_ITS | Encounter Summary ---
Author Organization [place] Address [address] [place] [address]. [place] [address] Care Team Providers Care Pot Feeder Name Role Phone No Ref-Primary, Physician Primary Care Provider Oleg Aparicio PA-C Unavailable [phone] Ana Oreilly MD Unavailable [phone] Encounter Details Date Type Department Care Team (Late st Contact Info) Description 10/21/2023 Telephone [facility] for Bleeding and Clotting Disorders [address] [place] [address] Ron Hanley RN 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 Tobacco Use Types Packs/Day [...] Telephone Encounter - Ron Hanley RN - 10/21/2023 8:10 AM CDT [id number] Gabrielle Mcmahon Date: 10/21/2023 Time of Receipt from Lab: 0811 Lab Test: LMWH anti-Xa Lab Value: >2.00 Results given to: Oleg Aparicio PA-C Time lab value reported to provider: 0811 Ron WEBER RN [facility] for Bleeding and Clotting Disorders Office: [phone] Clinic: [phone] documented in this encounter Plan of Treatment Not on file documented as of this encounter Visit Diagnoses Not on filedocumented in this encounter Care Teams Pot Feeder Relationship Specialty Start Date End Date No Ref-Primary, Physician PCP - General 03/31/23 Oleg Aparicio, PABrightC [facility] [address] [place] [address] Assigned Cancer Care Provider 05/06/23 Ana Oreilly MD [address] [address] [place], [place] [address] Assigned OBGYN Provider 05/06/23 documented as of this encounter
--- OUTSIDE RECORDS SUMMARY | 2023-12-01 14:39 | XMS_ITS | Encounter Summary ---
Author Organization [place] Address [address] [facility] [place] [address] Care Team Providers Care Telephone Maintenance Mechanic Name Role Phone No Ref-Primary, Physician Primary Care Provider Oleg Aparicio PA-C Unavailable [phone] Ana Oreilly MD Unavailable [phone] Encounter Details Date Type Department Care Team (Late st Contact Info) Description 10/20/2023 9:00 AM CDT Lab [facility] [address] [place] [address] Pulmonary embolism affecting in second trimester; Family history of blood clots; 31 weeks gestation of ; History of pulmonary embolism 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 Tobacco Use Types Packs/Day Years [...] of blood clots 31 weeks gestation of ANTITHROMBIN III Routine 10/20/2023 9:10 AM CDT History of pulmonary embolism Family history of blood clots documented in this encounter Results * (ABNORMAL) Antithrombin III (10/20/2023 9:10 AM CDT) Antithrombin III 54(L) 85 - 135 % [...] ORDERABL ES SPECIAL COAGULATION Special Coagulation [address] [facility], [address] [id number] * (ABNORMAL) Low Molecular Weight Heparin Anti [...] If administered twice daily: 0.50-1.0 IU/mL. Oleg Y Aparicio PA-C LAB - BLOOD ORDERABL ES [facility] [address] [facility] [address] [facility], [address] [place] [address], [facility] documented in this encounter Visit Diagnoses Diagnosis Pulmonary embolism affecting in second trimester Family history of blood clots Family history of other blood disorders 31 weeks gestation of state, incidental History of pulmonary embolism Personal history of pulmonary embolism documented in this encounter Care Teams Telephone Maintenance Mechanic Relationship Specialty Start Date End Date No Ref-Primary, Physician PCP - General 03/31/23 Oleg Aparicio PA-C [address] [address] [place], [place] [address] Assigned Cancer Care Provider 05/06/23 Ana Oreilly MD [address] [place] [address] Assigned OBGYN Provider 05/06/23 documented as of this encounter
--- OUTSIDE RECORDS SUMMARY | 2023-12-01 14:39 | XMS_ITS | Encounter Summary ---
Author Organization [place] Address [address] [facility] [place] [address] Care Team Providers Care Nuclear Logging Engineer Name Role Phone No Ref-Primary, Physician Primary Care Provider Oleg Aparicio PA-C Unavailable [phone] Ana Oreilly MD Unavailable [phone] Encounter Details Date Type Department Care Team (Late st Contact Info) Description 11/24/2023 [facility] [address] [place] [address] Zachary Bean 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 Tobacco Use Types [...] on filedocumented in this encounter Care Teams Nuclear Logging Engineer Relationship Specialty Start Date End Date No Ref-Primary, Physician PCP - General 03/31/23 Oleg Aparicio PA-C [address] [place] [address] Assigned Cancer Care Provider 05/06/23 Ana Oreilly MD [address] [facility] [address] [place] [address] Assigned OBGYN Provider 05/06/23 documented as of this encounter
--- OUTSIDE RECORDS SUMMARY | 2023-12-01 14:39 | XMS_ITS | Encounter Summary ---
Author Organization [place] Address [address] [facility] [place] [address] Care Team Providers Care Emergency Management Consultant Name Role Phone No Ref-Primary, Physician Primary Care Provider Oleg Aparicio PA-C Unavailable [phone] Ana Oreilly MD Unavailable [phone] Reason for Visit * Genomics (Routine) - Closed Specialty Diagnoses / Procedures Referred By Contac t Referred To Contact Diagnoses Antithrombin III deficiency (H) Procedures Hereditary Genomics Hold For Preauthorization: Travis Mcdaniel MD [address] [facility] [address] [place] [address] Referral ID Status Reason Start Date Expiration Date Visits Re quested Visits Authorized [id number] Closed 10/25/2023 10/24/2024 1 1 Encounter Details Date Type Department Care Team (Late st Contact Info) Description 11/23/2023 10:00 AM CDT Lab [facility] [address] [place] [address] Antithrombin III deficiency (H) 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 Tobacco Use Types Packs/Day Years [...] as of this encounter Plan of Treatment Pending Results Name Type Priority Associated Diagnoses Date /Time Hereditary Genomics Hold For Preauthorization: Molecular Lab Routine Antithrombin III deficiency (H) 11/23/2023 10:06 AM CDT documented as of this encounter Visit Diagnoses Diagnosis Antithrombin III deficiency (H) Primary hypercoagulable state documented in this encounter Care Teams Emergency Management Consultant Relationship Specialty Start Date End Date No Ref-Primary, Physician PCP - General 03/31/23 Oleg Aparicio, PABrightC [address] [place] [address] [address] [place], [place] [address] Assigned Cancer Care Provider 05/06/23 Ana Oreilly MD [address] [facility] [address] [place] [address] Assigned OBGYN Provider 05/06/23 documented as of this encounter
--- OUTSIDE RECORDS SUMMARY | 2023-12-01 14:39 | XMS_ITS | Encounter Summary ---
Author Organization [place] Address [address] [facility] [place] [address] Care Team Providers Care Planning Aide Name Role Phone No Ref-Primary, Physician Primary Care Provider Oleg Aparicio PA-C Unavailable [phone] Ana Oreilly MD Unavailable [phone] Reason for Referral * Genomics (Routine) - Closed Specialty Diagnoses / Procedures Referred By Contac t Referred To Contact Diagnoses Antithrombin III deficiency (H) Procedures Hereditary Genomics Hold For Preauthorization: Travis Mcdaniel MD [address] [facility] [address] [place] [address] Referral ID Status Reason Start Date Expiration Date Visits Re quested Visits Authorized [id number] Closed 10/25/2023 10/24/2024 1 1 Encounter Details Date Type Department Care Team (Latest Contact Info) Description 10/25/2023 11:00 AM CDT Virtual Visit [facility] [address] [facility] [address] [place] [id number] Oleg Aparicio PA-C [address] [place], [place] [id number] Handler, IMELDA Sánchez Antithrombin III deficiency (H) (Primary Dx) 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 Tobacco Use Types [...] as of this encounter Progress Notes * Handler Princess, GC - 10/25/2023 11:00 AM CDT 10/25/2023 Presenting Information: Gabrielle Mcmahon [facility] Today's visit was conducted by telephone due to Gabrielle's child being home sick. I met with her per the request of Oleg Aparicio PA-C to obtain a family history and to discuss the genetics of antithrombin III deficiency. Personal History: Briefly, Gabrielle is a 28 year old woman with consistently low (54% and 51%) antithrombin III levels. Please see Oleg Aparicio's note from 09/15/2023 for additional details regarding her personal history. Family History: A three generation pedigree, specific to clotting was obtained today and scanned into the EMR. The following information is significant: Mother had cerebral sin us thrombosis. She had a coagulation workup that was reportedly normal. Herantithrombin III levels were reportedly 82%. Maternal grandparents and maternal aunts/uncles have no known clotting history. Father and 5 paternal aunts/uncles have no known clotting history. Paternal grandmother at age 74. She had pulmonary hypertension. She had no clotting history. Paternal grandfather at age 74. He had lung cancer. He had no clotting history. Gabrielle has 3 brothers and 3 sisters. She also has several nieces/nephews. None of her siblings or their children have a known clotting history. Gabrielle has two daughters (ages 2 years old and 2 months old). Neither of her daughters have a history of clotting. Maternal and paternal ancestry is [place]avian and [place]. There is no reported consanguinity. Discussion: We reviewed the basics of antithrombin deficiency today. Antithrombin deficiency leads to an increased risk for someone to develop blood clots and this deficiency can be either acquired or genetic. We discussed that Gabrielle's family history is suggestive of possible hereditary antithrombin deficiency. Genetic testing could provide molecular confirmation that Gabrielle has hereditary antithrombin deficiency and could shape future medical care decisions for her. Testing could also inform if other relatives (such as Gabrielle's daughters) are at a higher risk of develop blood clots. We discussed that genetic antithrombin deficiency is caused by mutations in the SERPINC1 gene and is inherited in an autosomal dominant manner. This means that all children (both males and females) of a parent with genetic antithrombin deficiency have a 50% chance of inheriting it. Those who do notinherit the gene mutation cannot pass it on to their children (i.e., it cannot skip generations). We discussed that inheriting two SERPINC1 mutations (one from each parent) is typically incompatible with life. We discussed that genetic testing for antithrombin deficiency may also be useful for family members, particularly her mother and two children. In a general sense, identifying if there is a hereditaryantithrombin deficiency in the family could help relatives better understand their risk to develop blood clots, and seek care as appropriate. We discussed that, for example, women with a known hereditary thrombophilia are typically discouraged from using estrogen, such as oral contraceptives, as this can further increase clotting risk. Gabrielle expressed interest in genetic testing. We discussed that genetic testing for antithrombin deficiency involves SERPINC1 gene sequencing and copy number variation analysis. Risks, benefits, andlimitations of genetic testing were discussed. Possible results, including positive, negative and variant of uncertain significance were reviewed. Consent was obtained verbally for SERPINC1 gene testing at [facility]. We will begin with insurance prior authorization, which typically takes about 2-4 weeks. Gabrielle will be contacted with the prior authorization outcome, and she can determine at that time whether or not she would like to proceed with genetic t esting. If she chooses to proceed with testing, results should be available in an additional 4-6 weeks. Plan: A three generation pedigree was obtained and scanned into the EMR. Gabrielle will be contacted with the outcome of genetic testing prior- authorization. If she chooses to proceed with testing, I will call her with results. Additional questions or concerns were denied. Approximate Time Spent on the Phone: 30 minutes. Princess Villagran, PhD, MS, [facility] Genetic Counselor CC: No Letter documented in this encounter Plan of Treatment Pending Results Name Type Priority Associated Diagnoses Date /Time Hereditary Genomics Hold For Preauthorization: Molecular Lab Routine Antithrombin III deficiency (H) 11/23/2023 10:06 AM CDT Scheduled Orders Name Type Priority Associated Diagnoses Orde r Schedule Hereditary Genomics Hold For Preauthorization: Molecular Lab Routine Antithrombin III deficiency (H) Expected: 10/25/2023 (Approximate), Expires: 10/24/2024 documented as of this encounter Visit Diagnoses Diagnosis Antithrombin III deficiency (H)- Primary Primary hypercoagulable state documented in this encounter Care Teams Planning Aide Relationship Specialty Start Date End Date No Ref-Primary, Physician PCP - General 03/31/23 Oleg Aparicio, PA-C [address] [place], [place] [address] Assigned Cancer Care Provider 05/06/23 Ana Oreilly MD [address] [place], [place] [address] Assigned OBGYN Provider 05/06/23 documented as of this encounter
--- OUTSIDE RECORDS SUMMARY | 2023-12-01 14:40 | XMS_ITS | Clinical Summary ---
Author Organization [facility] [place], [place] [address] Care Team Providers Care Director Of Accounts Payable Name Role Phone Marybeth Andrew MD Primary Care Provider + Allergies No known active allergies Medications No known medications Encounters Date Type Department Care Team Description 10/06/2023 Lab Requisition [facility] [phone] Jasmin Barrow MD from Last 3 Months [...] booster 2017 COVID-19 vaccine series ( season) 2023 Influenza for age 9-49 10/23/2023 Pap test for age 21-65 10/04/2026 , 10/05/2023, 12/11/2020 Pneumococcal series for age 6-64 Aged Out No longer eligible b ased on patient's age to complete this topic Procedures Procedure Name Priority Date/Time Associated Diagnosis Comments LAB TRACKING EVENT Routine 10/05/2023 2: 41 PM CDT LAUNDRY OR DRY CLEANERS COUNTER CLERK THIN PREP PAP SCREEN IMAGED Routine 10/05/2023 12:00 PM CDT HPV HIGH RISK Routine 10/05/2023 12:00 PM CDT from Last 3 Months Results * LAB TRACKING EVENT (10/05/2023 2:41 PM CDT) Other (Other) Client Collect / Unknown 10/05/2023 2:41 PM CDT 10/06/2023 5:33 PM CDT Jasmin Barrow MD LAB BILL O NLY [facility] [address] [place] [address], * LAUNDRY OR DRY CLEANERS COUNTER CLERK THIN PREP PAP SCREEN IMAGED (10/05/2023 12:00 PM CDT) Case Report Gynecologic Cytology Report ? Case: [id number] ? Authorizing Provider: ??Jasmin Barrow ??Collected: ? 10/05/2023 1200 ? MD Daja ? Ordering Location: ? [facility] ?Received: ?10/07/2023 0851 ? First Screen: ?Leatha Boyd ? Specimen: ?LAUNDRY OR DRY CLEANERS COUNTER CLERK ThinPrep Vial Screening, Cervical ? 10/13/2023 1:59 PM CDT [facility] backstitch [facility] INTERPRETATION/ RESULT NEGATIVE FOR INTRAEPITHELIAL LESION OR MALIGNANCY (NIL) (none) 10/13/2023 1:59 PM CDT [facility] IMEN ADEQUACY Satisfactory for evaluation Endocervical component present Scant cellularity 10/13/2023 1:59 PM CDT [facility] HPV REQUEST HPV and PAP 10/13/2023 1:59 PM CDT [facility] Last Pap Date 12/11/2020 10/13/2023 1:59 PM CDT [facility] Last Pap Result NIL 1:59 PM CDT [facility] Abnormal Pap or Chitina Bx in last 5 years No 10/13/2023 1:59 PM CDT [facility] Menstrual Status 10/13/2023 1:59 PM CDT [facility] Chitina Bx Done Today No 10/13/2023 1:59 PM CDT [facility] Additional Information 10/13/2023 1:59 PM CDT [facility] Comment: Interpreted at [facility] - [address] [place] [address] Automated Review Successful 10/13/2023 1:59 PM CDT [facility] Comment:Specimen processed s uccessfully by automated lodging manager device, ThinPrep Imaging System, [employer] ANCILLARY TESTING LAUNDRY OR DRY CLEANERS COUNTER CLERK HPV Ordered, Please see separate report 10/13/2023 1:59 PM CDT [facility] Note The pap test is a screening technique, not a diagnostic procedure. It is used primarily to screen for squamous cancers and precursor lesions. Published studies have shown that it is subject to both false negative and false positive results. The pap test should not be used as the sole means to diagnose or exclude pre-malignant and malignant lesions. 10/13/2023 1:59 PM CDT [facility] Other (Cervical) 10/05/2023 12:00 PM CDT 10/07/2023 8:51 AM CDT Jasmin Barrow MD PATHOLOGY/ CYTOLOGY [facility] [address] [place] [address], * HPV HIGH RISK (10/05/2023 12:00 PM CDT) TYPE 16 Negative Negative 10/11/2023 2:17 PM CDT [facility] TYPE 18 Negative Negative 10/11/2023 2:17 PM CDT [facility] OTHER HIGH RISK TYPES Negative Negative 10/11/2023 2:17 PM CDT [facility] Other (Cervical) 10/05/2023 12:00 PM CDT 10/07/2023 8:51 AM CDT Narrative [facility] - 10/11/2023 2:17 PM CDT HPV types 16, 18, 31, 33, 35, 39, 45, 51, 52, 56, 58, 59, 66 and 68 DNA were undetectable or below the pre-set threshold. Methodology: Kendrick Lulu 4800 HPV Test Jasmin Barrow MD MICROBIOLO GY [facility] [address] [place] [address], from Last 3 Months Care Teams Director Of Accounts Payable Relationship Specialty Start Date End Date Marybeth Andrew MD [address] [place] [address] PCP - General Family Practice 08/20/22
--- OUTSIDE RECORDS SUMMARY | 2023-12-01 14:40 | XMS_ITS | Clinical Summary ---
Author Organization [facility] Address [address] [place] [address] Care Team Providers Care Registered Nurse Teacher Name Role Phone Elsewhere, Pcp Primary Care Provider Unavailabl e Source Comments Patient records contain information from all sites at [facility]. For routine questions regarding patient records, call [phone] during business hours, M-F 8:00 AM - 5:00 PM Central Time. Record requests for emergency care only can be directed to [phone] at any time.[facility] Allergies No known active allergies Medications Medication Sig Dispensed Refills Start Date End Date Status reintdp-Un-oiov-FA (VINATE ONE) 60 mg iron-1 mg per [...] any clubs o r organizations such as mandaen groups, unions, fraternal or athletic groups, or [...] hard at all 02/21/2022 [facility] [place] of Occupat ional Health - Occupational Stress [...] Sex Assigned at Female 02/21/2022 11:00 AM DIGITAL MARKETING MANAGER Gender Identity Female 02/21/2022 11:00 AM DIGITAL MARKETING MANAGER Sexual Orientation Straight 02/21/2022 11 :00 AM DIGITAL MARKETING MANAGER Last Filed Vital Signs Vital Sign Reading Time Taken Comments Blood Pressure - - Pulse - - Temperature 36.6 ??C (97.9 ??F) 02/24/2022 12:[address] Respiratory Rate - - Oxygen Saturation - - Inhaled Oxygen Concentration - - Weight 72.4 kg (159 lb 9.8 oz) 02/24/2022 12:38 PM DIGITAL MARKETING MANAGER Height 169.7 cm (5' 6.81) 02/24/2022 12:[address] Body Mass Index 25.14 02/24/2022 12:38 PM DIGITAL MARKETING MANAGER Plan of Treatment Health Maintenance Due Date Last Done Comments HIV Screening 1997 Hepatitis C Screening 1997 HPV Vaccines (1 - 3-dose series) 2012 Hepatitis B Vaccines (1 of 3 - 19+ 3-dose series) 2016 Depression Screening (Annual PHQ-2) 02/21/2023 COVID-19 Vaccine (1 - 2023-2 5 season) 2023 Influenza Vaccine (#1) 2023 01/25/2022 Cervical Cancer Screening 10/04/2026 10/05/2023 DTaP,Tdap,and Td Vaccines (2 - Td or Tdap) 06/22/2033 06/23/2023 Pneumococcal vaccine (0-64 years) Aged Out No longer eligible based on patient's age to complete this topic Care Teams Registered Nurse Teacher Relationship Specialty Start Date End Date Elsewhere, Pcp PCP - General Internal Medicine 02/24/22
--- OUTSIDE RECORDS SUMMARY | 2023-12-01 14:40 | XMS_ITS | Referral Summary ---
Author Organization [facility] Address [address] [place] [address] Care Team Providers Care Ground Source Heat Pump Technician Name Role Phone Elsewhere, Pcp Primary Care Provider Unavailabl e Source Comments Patient records contain information from all sites at [facility]. For routine questions regarding patient records, call [phone] during business hours, M-F 8:00 AM - 5:00 PM Central Time. Record requests for emergency care only can be directed to [phone] at any time.[facility] Allergies No known active allergies Medications Medication Sig Dispensed Refills Start Date End Date Status dqlendv-Ot-ohoo-FA (VINATE ONE) 60 mg iron-1 mg per [...] any clubs o r organizations such as muslim groups, unions, fraternal or athletic groups, or [...] and heating? Not hard at all 02/21/2022 [facility] of Occupat ional Health - Occupational Stress [...] place to sleep or slept in a longterm (including now)? No 02/21/2022 Nutrition Answer Date [...] Sex Assigned at Female 02/21/2022 11:00 AM LINING PRINTER Gender Identity Female 02/21/2022 11:00 AM LINING PRINTER Sexual Orientation Straight 02/21/2022 11 :00 AM LINING PRINTER Last Filed Vital Signs Vital Sign Reading Time Taken Comments Blood Pressure - - Pulse - - Temperature 36.6 ??C (97.9 ??F) 02/24/2022 12:[address] Respiratory Rate - - Oxygen Saturation - - Inhaled Oxygen Concentration - - Weight 72.4 kg (159 lb 9.8 oz) 02/24/2022 12:38 PM LINING PRINTER Height 169.7 cm (5' 6.81) 02/24/2022 12:[address] Body Mass Index 25.14 02/24/2022 12:38 PM LINING PRINTER Plan of Treatment Not on file Care Teams Ground Source Heat Pump Technician Relationship Specialty Start Date End Date Elsewhere, Pcp PCP - General Internal Medicine 02/24/22
--- OUTSIDE RECORDS SUMMARY | 2023-12-01 14:40 | XMS_ITS ---
Author Organization [facility] Address [address] [place] [address] Care Team Providers Care Co Director Name Role Phone Unavailable Unavailable Unavailable Surgery Details Not on file Complications Check Surgery Details section. Procedure Estimated Blood Loss Check Surgery Details section. Procedure Findings Check Surgery Details section. Procedure Specimens Taken Check Surgery Details section.
== END 2023-12-01 14:33 | disposition home or self-care (01) ==
LOC: LKVREF 14:34
PROVIDERS: PCP Family Medicine; Visit Provider Nurse Practitioner Family
DX: Z00.00 Encounter for general adult medical examination without abnormal findings (principal); R42 Dizziness and giddiness; I49.8 Other specified cardiac arrhythmias
CPT/HCPCS: 84443

== ENCOUNTER 2023-12-15 15:01 | Outpatient (CLI) | payer BC, SELFPAY ==
--- OUTSIDE RECORDS SUMMARY | 2023-12-05 09:50 | XMS_ITS | Referral Summary ---
Author Organization [place] Address [address] [facility] [place] [address] Care Team Providers Care Pharmacy Technician Trainee Name Role Phone No Ref-Primary, Physician Primary Care Provider Oleg Aparicio PA-C Unavailable [phone] Ana Oreilly MD Unavailable [phone] Encounters Date Type Department Care Team Description 12/01/2023 3:00 PM CDT Lab [facility] Laboratory [address] [place] [phone] Antithrombin III deficiency (H) (Primary Dx) 12/01/2023 Telephone [facility] [address] [place] [address] Zachary Bean 11/24/2023 MyC Medical Advice [facility] [address] [place] [address] Zachary Bean 11/24/2023 Telephone [facility] [address] [place] [address] Zachary Bean 11/23/2023 Travel 11/23/2023 10:00 AM CDT Lab [facility] Laboratory [address] [place] [phone] Antithrombin III deficiency (H) 11/21/2023 Telephone [facility] [address] [place] [phone] Sandie White, RN 11/09/2023 MyC Medical Advice [facility] [address] [place] [address] Vikas Zachary 10/25/2023 11:00 AM CDT Virtual Visit [facility] [place] [address] [address] [place] [address] Oleg Aparicio PA-C Handler, Hillary, GC Antithrombin III deficiency (H) (Primary Dx) 10/21/2023 Telephone [facility] [place] [address] [address] [place] [address] Oleg Aparicio PA-C 10/21/2023 Telephone [facility] [address] Ron Hanley RN 10/20/2023 Travel 10/20/2023 9:00 AM CDT Lab [facility] [address] [place] [address] Pulmonary embolism affecting in second trimester; Family history of blood clots; 31 weeks gestation of ; History of pulmonary embolism 10/18/2023 Telephone [facility] [address] Sandie White RN 10/10/2023 Telephone [facility] [address] [address] Oleg Aparicio PA-C 09/22/2023 MyC Medical Advice [facility] [address] [place] [address] [address] [place] [address] Oleg Aparicio PA-C 09/19/2023 Telephone [facility] [address] [place] [address] [address] [place] [address] Oleg Aparicio PA-C 09/15/2023 Travel 09/15/2023 2:30 PM CDT Office Visit [facility] [address] [facility] [address] [place] [address] Oleg Aparicio PA-C History of pulmonary embolism (Primary Dx); Family history of blood clots from Last [...] Procedure Name Priority Date/Time Associated Diagnosis Comments NGS SINGLE GENE Routine 12/01/2023 2:48 PM CDT Antithrombin III deficiency (H) ANTITHROMBIN III Routine 10/20/2023 9:10 AM CDT [...] Recently Relevant to Health Maintenance Results * NGS Single Gene (12/01/2023 2:48 PM CDT) Blood BLOOD SPECIMEN / Unknown Venipuncture-No Charge / Unknown 12/01/2023 2:48 PM CDT 12/01/2023 2:48 PM CDT Travis Mcdaniel MD LAB CHARGE PERFORM DELILAH Performing Organization Address City/[facility]/ZIP Co de Phone Number MOLECULAR DIAGNOSTICS (LDL) [facility] [address] [facility], Room [address] [address] * (ABNORMAL) Low Molecular Weight Heparin Anti Xa Level (10/20/2023 9:10 AM CDT) Anti Xa Low Molecular Weight >2.00(HH) For Reference Range, See Comment IU/mL 10/21/2023 8:17 AM CDT [facility] Blood BLOOD SPECIMEN / Unknown Venipuncture / Unknown 10/20/2023 9:10 AM CDT 10/20/2023 9:10 AM CDT [facility] - 10/21/2023 8:17 AM CDT If collected 4-6 hours after administration: Adults: If administered only once daily with a dose of 1.5 mg/k.0-2.0 IU/mL. If administered twice daily with a dose of 1 mg/k.50-1.0 IU/mL. Pediatrics: If administered twice daily: 0.50-1.0 IU/mL. Oleg Aparicio PA-C LAB - BLOOD ORDERABL ES [facility] LAB[facility]ATORY [facility] [address] [facility], [address] [address] * (ABNORMAL) Antithrombin III (10/20/2023 9:10 AM [...] SPECIAL COAGULATION Special Coagulation [address] [facility], [address] [place] [address] * Factor 2 and 5 mutation analysis (09/15/2023 3:05 PM CDT) METHODOLOGY The regions of genomic DNA containing the F5 gene mutation R506Q(1691G>A) and the Factor 2 (Prothrombin [id number]) gene mutation were simultaneously amplified using the polymerase chain reaction. The amplified products were digested with restriction endonuclease TaqI and products were analyzed by gel electrophoresis. 09/15/2023 3:05 PM CDT MOLECULAR DIAGNOSTICS (LDL) RESULTS Factor V 1691G>A (Leiden) RESULTS: Mutation analyzed: 1691G>A Factor V 1691G>A ([place]iden) Interpretation: ABSENT Factor V 1691G>A (Leiden) mutation genotype: G/G FACTOR 2/PROTHROMBIN RESULTS: Mutation analyzed: 05491M>A Factor 2 Mutation Interpretation: ABSENT Factor 2 [...] will interfere with test results. Call the [facility] ([phone]) for instructions on sample collection for these patients. 09/15/2023 3:05 PM CDT MOLECULAR DIAGNOSTICS (LDL) DISCLAIMER This test was developed and its performance characteristics determined by [facility]. It has not been cleared or [...] PA-C LAB - GENOMICS Performing Organization Address City/State/[facility] Co de Phone Number MOLECULAR DIAGNOSTICS (LDL) [facility] [address] [facility], [address] * Protein S Antigen Free (09/15/2023 3:05 PM CDT) Protein S Antigen Free 63 55 - 125 % 09/16/2023 9:59 AM CDT SPECIAL COAGULATION Blood STRUCTURE OF RIGHT UPPER LIMB / Unknown Venipuncture / Unknown 09/15/2023 3:05 PM CDT 09/15/2023 3:09 PM CDT Oleg Aparicio PA-C LAB - BLOOD ORDERABL ES [facility] [address] [facility], [address] [place] [address] * Protein C chromogenic (09/15/2023 3:05 PM CDT) Pathologist [facility] Protein C Chromogenic 103 70 - 170 % 09/16/2023 9:58 AM CDT [facility] Blood STRUCTURE OF RIGHT UPPER LIMB / Unknown Venipuncture / Unknown 09/15/2023 3:05 PM CDT 09/15/2023 3:09 PM CDT Oleg Aparicio PA-C LAB - BLOOD ORDERABL ES Performing Organization Address [facility]/ZIP Co de Phone Number [facility] SPECIAL COAGULATION [facility] Special Co[facility] [address] [facility], [address] [place] [address] * Chlamydia trachomatis/Neisseria gonorrhoeae by PCR (07/15/2023 6:23 PM CDT) [facility] Chlamydia Trachomatis Negative Negative 07/16/2023 12:02 PM CDT [facility] Comment: Negative for C. trachomatis rRNA by machine veneer repairer mediated amplification. A negative result by machine veneer repairer mediated amplification does not preclude the presence of infection because results are dependent on proper and adequate collection, absence of inhibitors and sufficient rRNA to be detected. Neisseria gonorrhoeae Negative Negative 07/16/2023 12:02 PM CDT [facility] Comment:Negative for N. gono rrhoeae rRNA by machine veneer repairer mediated amplification. A negative result by machine veneer repairer mediated amplification does not preclude the presence of C. trachomatis infection because results are dependent on proper and adequate collection, absence of inhibitors and sufficient rRNA to be detected. Urine VOIDED URINE SPECIMEN / Unknown Non-blood Collection / Unknown 07/15/2023 6:23 PM CDT 07/15/2023 6:30 PM CDT Moira Roa MD LAB - MICRO GENERAL ORDERABLES [facility] Inf. Diseases Diag. Lab [address] [facility], [address] [place] [address], [facility] * HIV-1 Antibody (External Result) (01/26/2023) HIV 1&2 Antibody (External) Negative Nonreactive EXTERNAL LAB Patient Reported LAB - HIM EXTERNAL R ESULT EXTERNAL LAB External Lab from Last 3 Months or Most Recently Relevant to Health Maintenance Advance Directives For more information, please contact: [phone] * Full Code (Latest Code Status on File) Date Activated Date Inactivated Comments 07/15/2023 7:25 PM 07/18/2023 1:55 PM All basic an d advanced life-sustaining interventions are performed as appropriate Question Answer Comments Code status determined by: Discussion with patie nt/ legal decision maker Care Teams Pharmacy Technician Trainee Relationship Specialty Start Date End Date No Ref-Primary, Physician PCP - General 03/31/23 Oleg Aparicio, PABrightC [address] [place] [address] Assigned Cancer Care Provider 05/06/23 Ana Oreilly MD [address] [place] [address] Assigned OBGYN Provider 05/06/23
--- OUTSIDE RECORDS SUMMARY | 2023-12-05 09:50 | XMS_ITS | Continuity of Care Document ---
Author Organization [facility] Address [address] [place] [address] Phone Care Team Providers Care Automobile Rental Clerk Name Role Phone Moira Roa MD Unavailable [...] Marilyn OREILLY, [address], [place], [place], [id number] , [place] tel: [phone] [facility] No Information 4 Crispin Pizarro. [address], [address], [place], [address], [place]. tel: [phone] Subsequent Hospital Care MDM Straightforward Or LOW 25 MIN [facility], [address], [place], [place], [id number] , [place] tel: [phone] [facility] IP No Information 4 Soledad Valentin. [address], [address], [place], [address], [place]. tel: [phone] Initial Hospital Inpatient Or Observation Moderate MDM 55min [facility], [address], [place], [place], [id number] , [place] tel: [phone] [facility] IP labor without delivery, third trimesterPersona l history of pre-term laborInfection of other part of genital tract in , third trimesterPersona l history of pulmonary weeks gestation of pregnancyStrepto coccus B carrier state complicating [id number] weeks gestation of 4 [facility]. [address], [place], [address], [place]. tel:[phone] Family History Family Member Type Diagnosis Age At Onset No Information Payers Payer name Insurance type Covered libertarian ID Authoriza tion(s) No Information 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 Type Description Quantity Date Captured Comments Sex Female Smoking Status No Information Chief Complaint And Reason For Visit No Information History Of Present Illness Encounter Date Complaint History Of Prese nt Illness No Information Instructions Date Instruction Additional Infor mation No Information Assessments Type Assessment Date No Information
--- OUTSIDE RECORDS SUMMARY | 2023-12-05 09:50 | XMS_ITS | Clinical Summary ---
Author Organization [place] Address [address] [facility] [place] [address] Care Team Providers Care Christian Science Nurse Name Role Phone No Ref-Primary, Physician Primary Care Provider Oleg Aparicio PA-C Unavailable [phone] Ana Oreilly MD Unavailable [phone] Allergies No known active allergies Medications [...] Team Description 12/01/2023 3:00 PM CDT Lab [facility] [address] [place] [address] Antithrombin III deficiency (H) (Primary Dx) 12/01/2023 Telephone [facility] [address] [place] [address] Zachary Bean 11/24/2023 MyC Medical Advice [facility] [address] [place] [address] Zachary Bean 11/24/2023 Telephone [facility] [address] [place] [address] Vikas, Zachary 11/23/2023 10:00 AM CDT Lab [facility] [address] [facility] [address] [place] [address] Antithrombin III deficiency (H) 11/23/2023 Travel 11/21/2023 Telephone [facility] [address] [facility] [address] [place] [address] Sandie White RN 11/09/2023 MyC Medical Advice [facility] [address] [place] [address] Zachary Bean 10/25/2023 11:00 AM CDT Virtual Visit [facility] [address] [facility] [address] [place] [address] Oleg Aparicio PA-C HandlerPrincess GC Antithrombin III deficiency (H) (Primary Dx) 10/21/2023 Telephone [facility] [address] [facility] [address] [place] [address] Oleg Aparicio PA-C 10/21/2023 Telephone [facility] [address] [facility] [address] [place] [address] Ron Hanley RN 10/20/2023 9:00 AM CDT Lab [facility] [address] [place] [address] Pulmonary embolism affecting in second trimester; Family history of blood clots; 31 weeks gestation of ; History of pulmonary embolism 10/20/2023 Travel 10/18/2023 Telephone [facility] [address] [facility] [address] [place] [address] Sandie White RN 10/10/2023 Telephone [facility] [address] [place] [address] [address] [place] [address] Oleg Apaircio PA-C 09/22/2023 MyC Medical Advice [facility] [address] [place] [address] [address] [place] [phone] Oleg Aparicio PA-C 09/19/2023 Telephone [facility] [address] [place] [address] [address] [place] [phone] Oleg Aparicio PA-C 09/15/2023 2:30 PM CDT Office Visit [facility] [place] [address] [address] [place] [address] Oleg Aparicio PA-C History of pulmonary embolism (Primary Dx); Family history of blood clots 09/15/2023 Travel from Last 3 Months Immunizations Name [...] Travis Mcdaniel MD LAB CHARGE PERFORM DELILAH [facility] MOLECULAR DIAGNOSTICS (LDL) [facility] [address] [facility], Room [address] * (ABNORMAL) Low Molecular Weight Heparin Anti [...] - BLOOD ORDERABL ES Performing Organization Address City/[facility] Co de Phone Number LABORATORY [facility] [address] [facility], [address] [address] * (ABNORMAL) Antithrombin III (10/20/2023 9:10 AM CDT) Only the most recent of2 resultswithin the time period is included. [facility] Antithrombin III 54(L) 85 - 135 % [...] ORDERABL ES SPECIAL COAGULATION Special Coagulation [address] [facility], [address] [place] [address] * Factor 2 and 5 mutation analysis (09/15/2023 3:05 PM CDT) [facility] METHODOLOGY The regions of genomic DNA containing the F5 gene mutation R506Q(1691G>A) and the Factor 2 (Prothrombin [id number]) gene mutation were simultaneously amplified using the polymerase chain reaction. The amplified products were digested with restriction endonuclease TaqI and products were analyzed by gel electrophoresis. 09/15/2023 3:05 PM T MOLECULAR DIAGNOSTICS (LDL) RESULTS Factor V 1691G>A (Le[place]) RESULTS: Mutation analyzed: 1691G>A Factor V 1691G>A ([place]) Interpretation: ABSENT Factor V 1691G>A (Leiden) mutation genotype: G/G FACTOR 2/PROTHROMBIN RESULTS: Mutation analyzed: 10952J>A Factor 2 Mutation Interpretation: ABSENT Factor 2 [...] will interfere with test results. Call the [facility] ([phone]) for instructions on sample collection for these patients. 09/15/2023 3:05 PM [facility] (LDL) DISCLAIMER This test was developed and its performance characteristics determined by [facility]. It has not been cleared or [...] 2 Mutation Interpretation: ABSENT 09/15/2023 3:05 PM T [facility] (LDL) FACTOR V INTERPRETATION Factor V 1691G>A (Leiden) Interpretation: ABSENT 09/15/2023 3:05 PM CDT MOLEC[facility] DIAGNOSTICS (LDL) Specimen Description Blood: ACD 09/15/2023 3:05 PM CDT [facility]LEC[facility] DIAGNOSTICS (LDL) Blood STRUCTURE OF RIGHT UPPER LIMB / Unknown Venipuncture / Unknown 09/15/2023 3:05 PM CDT 09/15/2023 3:09 PM CDT Oleg Aparicio PA-C LAB - GENOMICS MOLECULAR DIAGNOSTICS (LDL) [facility] [address] [facility], [address] * Protein S Antigen Free (09/15/2023 3:05 PM CDT) Protein S Antigen Free 63 55 - 125 % 09/16/2023 9:59 AM CDT SPECIAL COAGULATION Blood STRUCTURE OF RIGHT UPPER LIMB / Unknown Venipuncture / Unknown 09/15/2023 3:05 PM CDT 09/15/2023 3:09 PM CDT Oleg Aparicio PA-C LAB - BLOOD ORDERABL ES Performing Organization Address City/[facility]/ZIP Co de Phone Number UM SPECIAL COAGULATION [facility] Special Coagulation [address] [facility], [address] [place] [address] * Protein C chromogenic (09/15/2023 3:05 PM CDT) Protein C Chromogenic 103 70 - 170 % 09/16/2023 9:58 AM CDT SPECIAL COAGULATION Blood STRUCTURE OF RIGHT UPPER LIMB / Unknown Venipuncture / Unknown 09/15/2023 3:05 PM CDT 09/15/2023 3:09 PM CDT Oleg Aparicio PA-C LAB - BLOOD ORDERABL ES [facility] SPECIAL [facility]UL[facility] Special Coagulation [address] [facility], [address] [place] [address] * Chlamydia trachomatis/Neisseria gonorrhoeae by PCR (07/15/2023 6:23 PM CDT) Chlamydia Trachomatis Negative Negative 07/16/2023 12:02 PM CDT [facility] Comment: Negative for C. trachomatis rRNA by service and repair supervisor mediated amplification. A negative result by service and repair supervisor mediated amplification does not preclude the presence of infection because results are dependent on proper and adequate collection, absence of inhibitors and sufficient rRNA to be detected. Neisseria gonorrhoeae Negative Negative 07/16/2023 12:02 PM CDT [facility] Comment:Negative for N. gono rrhoeae rRNA by service and repair supervisor mediated amplification. A negative result by service and repair supervisor mediated amplification does not preclude the [...] [facility] Inf. Diseases Diag. Lab [address] [facility], [address] [place] [address], [facility] * HIV-1 Antibody (External Result) (01/26/2023) HIV 1&2 Antibody (External) Negative Nonreactive EXTERNAL LAB Patient Reported LAB - HIM EXTERNAL R ESULT EXTERNAL LAB External Lab from Last 3 Months or Most Recently Relevant to Health Maintenance Advance Directives For more information, please contact: [phone] * Full Code (Latest Code Status on File) Date Activated Date Inactivated Comments 07/15/2023 7:25 PM 07/18/2023 1:55 PM All basic an d advanced life-sustaining interventions are performed as appropriate Question Answer Comments Code status determined by: Discussion with patie nt/ legal decision maker Care Teams Christian Science Nurse Relationship Specialty Start Date End Date No Ref-Primary, Physician PCP - General 03/31/23 Oleg Aparicio, PA-C [facility] [address] [place], [place] [address] Assigned Cancer Care Provider 05/06/23 Ana Oreilly MD [address] [address] [place], [place] [address] Assigned OBGYN Provider 05/06/23
--- OUTSIDE RECORDS SUMMARY | 2023-12-05 09:50 | XMS_ITS | Encounter Summary ---
Author Organization [place] Address [address] [place] [address]. [place] [address] Care Team Providers Care President And Chief Operating Officer Name Role Phone No Ref-Primary, Physician Primary Care Provider Oleg Aparicio PA-C Unavailable [phone] Ana Oreilly MD Unavailable [phone] Encounter Details Date Type Department Care Team (Late st Contact Info) Description 12/01/2023 3:00 PM CDT Lab [facility] Laboratory [address] [place] [address] Antithrombin III deficiency (H) (Primary Dx) Social [...] Name Type Priority Associated Diagnoses Date /Time Next Generation Sequencing Molecular Lab Routine Antithrombin III deficiency (H) 12/01/2023 2:48 PM CDT documented as of this encounter Procedures Procedure Name Priority Date/Time Associated Diagnosis Comments NGS SINGLE GENE Routine 12/01/2023 2:48 PM CDT Antithrombin III deficiency (H) documented in this encounter Results * NGS Single Gene (12/01/2023 2:48 PM CDT) Blood BLOOD SPECIMEN / Unknown Venipuncture-No Charge / Unknown 12/01/2023 2:48 PM CDT 12/01/2023 2:48 PM CDT Travis Mcdaniel MD LAB CHARGE PERFORM DELILAH [facility] MOLECULAR DI[facility]ST[facility] (LDL) [facility] [address] [facility], [address] documented in this encounter Visit Diagnoses Diagnosis Antithrombin III deficiency (H)- Primary Primary hypercoagulable state documented in this encounter Care Teams President And Chief Operating Officer Relationship Specialty Start Date End Date No Ref-Primary, Physician PCP - General 03/31/23 Oleg Aparicio, PABrightC [address] [place], [place] [address] Assigned Cancer Care Provider 05/06/23 Ana Oreilly MD [address] [place], [place] [address] Assigned OBGYN Provider 05/06/23 documented as of this encounter
--- OUTSIDE RECORDS SUMMARY | 2023-12-05 09:51 | XMS_ITS | Encounter Summary ---
Author Organization [place] Address [address] [facility] [place] [address] Care Team Providers Care Chicken And Fish Cleaner Name Role Phone No Ref-Primary, Physician Primary Care Provider Oleg Aparicio PA-C Unavailable [phone] Ana Oreilly MD Unavailable [phone] Encounter Details Date Type Department Care Team (Late st Contact Info) Description 12/01/2023 Telephone [facility] [address] [place] [address] Zachary Bean 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 Tobacco Use Types [...] encounter Progress Notes * Zachary Bean - 12/01/2023 2:39 PM CDT I called Gabrielle to follow up on previous [employer] messages and phone calls left for the patient regarding the insurance update for her genetic testing. We had received her blood draw after she had contacted the clinic and the patient also viewed my [employer] message, but we received no response from her to continue, therefore I wanted to make sure that the blood draw meant Gabrielle had wanted to proceed with her test. I was able to reach Gabrielle via phone call and we discussed the PA outcome and possible estimates for cost of testing. Gabrielle is aware that if testing is not covered, she would be responsible for the cost of testing. Gabrielle appreciated this information and expressed understanding and stated that she wants to proceed with testing. We will call when results are available. Gabrielle had no further questions. [facility] Hold For Preauthorization: [[id number]] order was placed by a genetics provider. Zachary Bean Genomics Billing Engineer Technician [employer] [facility] [address] [place] [address] [email or web address] Office: [phone] Fax: Employed by [employer] documented in this encounter Plan of Treatment Not on file documented as of this encounter Visit Diagnoses Not on filedocumented in this encounter Care Teams Chicken And Fish Cleaner Relationship Specialty Start Date End Date No Ref-Primary, Physician PCP - General 03/31/23 Oleg Aparicio, PA-C [address] [place], [place] [address] Assigned Cancer Care Provider 05/06/23 Ana Oreilly MD [address] [place], [place] [address] Assigned OBGYN Provider 05/06/23 documented as of this encounter
--- OUTSIDE RECORDS SUMMARY | 2023-12-05 09:51 | XMS_ITS | Encounter Summary ---
Author Organization [place] Address [address] [facility] [place] [address] Care Team Providers Care Library Science Professor Name Role Phone No Ref-Primary, Physician Primary Care Provider Oleg Aparicio PA-C Unavailable [phone] Ana Oreilly MD Unavailable [phone] Encounter Details Date Type Department Care Team (Late st Contact Info) Description 11/24/2023 [facility] [address] [place] [address] Zachary Bean 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 Tobacco Use Types [...] filedocumented in this encounter Care Teams Library Science Professor Relationship Specialty Start Date End Date No Ref-Primary, Physician PCP - General 03/31/23 Oleg Aparicio PA-C [address] [place] [address] Assigned Cancer Care Provider 05/06/23 Ana Oreilly MD [address] [facility] [address] [place] [address] Assigned OBGYN Provider 05/06/23 documented as of this encounter
--- OUTSIDE RECORDS SUMMARY | 2023-12-05 09:51 | XMS_ITS | Encounter Summary ---
Author Organization [place] Address [address] [place] [address] Care Team Providers Care Spiral Weaver Name Role Phone No Ref-Primary, Physician Primary Care Provider Oleg Aparicio PA-C Unavailable [phone] Ana Oreilly MD Unavailable Reason for Visit * Genomics (Routine) - Closed Specialty Diagnoses / Procedures Referred By Contac t Referred To Contact Diagnoses Antithrombin III deficiency (H) Procedures [facility] Hold For Preauthorization: Travis Mcdaniel MD [address] [facility] [address] [place] [address] Referral ID Status Reason Start Date Expiration Date Visits Re quested Visits Authorized [id number] Closed 10/25/2023 10/24/2024 1 1 Encounter Details Date Type Department Care Team (Late st Contact Info) Description 11/23/2023 10:00 AM CDT Lab [facility] [address] [place] [address] Antithrombin III deficiency (H) Social [...] state documented in this encounter Care Teams Spiral Weaver Relationship Specialty Start Date End Date No Ref-Primary, Physician PCP - General 03/31/23 Oleg Aparicio, PABrightC [address] [place] [address] [address] [place], [place] [address] Assigned Cancer Care Provider 05/06/23 Ana Oreilly MD [address] [facility] [address] [place] [address] Assigned OBGYN Provider 05/06/23 documented as of this encounter
--- OUTSIDE RECORDS SUMMARY | 2023-12-05 09:51 | XMS_ITS | Clinical Summary ---
Author Organization [facility] Address [address] [place] [address] Care Team Providers Care Family Worker Name Role Phone Elsewhere, Pcp Primary Care Provider Unavailabl e Source Comments Patient records contain information from all sites at [facility]. For routine questions regarding patient records, call [phone] during business hours, M-F 8:00 AM - 5:00 PM Central Time. Record requests for emergency care only can be directed to [phone] at any time.[facility] Allergies No known active allergies Medications * This document contains information received from the source organization and may not represent a complete record from that organization. [id number]-[id number]- FA (VINATE ONE) 60 mg iron-1 mg per [...] and heating? Not hard at all 02/21/2022 [facility] [place] of Occupat ional Health - Occupational Stress [...] place to sleep or slept in a jail (including now)? No 02/21/2022 Nutrition Answer Date [...] Bachelor's degree (e.g., BA, AB, BS) 02/21/2022 Comments Unknown Sex and Gender Information Value Date Recorded Sex Assigned at Female 02/21/2022 11:00 AM NURSES AIDE Legal Sex Female 8:55 AM CDT Gender Identity Female 02/21/2022 11:00 AM NURSES AIDE Sexual Orientation Straight 02/21/2022 11 :00 AM NURSES AIDE Last Filed Vital Signs Vital Sign Reading Time Taken Comments Blood Pressure - - Pulse - - Temperature 36.6 ??C (97.9 ??F) 02/24/2022 12:[address] Respiratory Rate - - Oxygen Saturation - - Inhaled Oxygen Concentration - - Weight 72.4 kg (159 lb 9.8 oz) 02/24/2022 12:38 PM NURSES AIDE Height 169.7 cm (5' 6.81) 02/24/2022 12:[address] Body Mass Index 25.14 02/24/2022 12:38 PM NURSES AIDE Plan of Treatment Health Maintenance Due Date [...] on patient's age to complete this topic Insurance [facility] Care Teams Family Worker Relationship Specialty Start Date End Date Elsewhere, Pcp PCP - General Internal Medicine 02/24/22
--- OUTSIDE RECORDS SUMMARY | 2023-12-05 09:51 | XMS_ITS | Encounter Summary ---
Author Organization [place] Address [address] [place] [address] Care Team Providers Care Customer Service Sales Consultant Name Role Phone No Ref-Primary, Physician Primary Care Provider Oleg Aparicio PA-C Unavailable [phone] Ana Oreilly MD Unavailable [phone] Encounter Details Date Type Department Care Team (Late st Contact Info) Description 11/21/2023 Telephone [facility] for Bleeding [facility] Clotting Disorders [address] [place] [address] Sandie White RN 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 [...] billing department. I directed her to the [employer] message from 11/08 and advised that she [...] about trying another medication. Ron WEBER RN [facility] for [facility] Disorders Office: [phone] Clinic: [phone] * Telephone Encounter - Sandie White RN - 11/21/2023 9:16 AM CDT [id number] Randalamitamir Mcmahon 28 year old female CBCD Diagnosis: PE CBCD Provider: Oleg Anthony had a question regarding blood draw and Eliquis. She can be reached at [phone] RN will route to RNMIKE Hanley. Sandie White RN, BSN, PCCN Nurse Clinician [facility] for Bleeding [facility] Clotting Disorders [address] [place] [address] Office, direct: [phone] Main office number: [phone] Pronouns: She, her, hers documented in this encounter Plan of Treatment Not on file documented as of this encounter Visit Diagnoses Not on filedocumented in this encounter Care Teams Customer Service Sales Consultant Relationship Specialty Start Date End Date No Ref-Primary, Physician PCP - General 03/31/23 Oleg Aparicio PA-C [address] [place] [address] Assigned Cancer Care Provider 05/06/23 Ana Oreilly MD [address] [place] [address] Assigned OBGYN Provider 05/06/23 documented as of this encounter
--- OUTSIDE RECORDS SUMMARY | 2023-12-05 09:51 | XMS_ITS | Encounter Summary ---
Author Organization [place] Address [address] [facility] [place] [address] Care Team Providers Care Chartered Wealth Manager Name Role Phone No Ref-Primary, Physician Primary Care Provider Oleg Aparicio PA-C Unavailable [phone] Ana Oreilly MD Unavailable [phone] Encounter Details Date Type Department Care Team (Late st Contact Info) Description 04/28/2023 [facility] for Bleeding and Clotting Disorders [address] [facility] [address] [place] [address] Carmen Pollack RN 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 [...] on filedocumented in this encounter Care Teams Chartered Wealth Manager Relationship Specialty Start Date End Date No Ref-Primary, Physician PCP - General 03/31/23 Oleg Aparicio PA-C [address] [place] [address] Assigned Cancer Care Provider 05/06/23 Ana Oreilly MD [address] [place] [address] Assigned OBGYN Provider 05/06/23 documented as of this encounter
--- OUTSIDE RECORDS SUMMARY | 2023-12-05 09:51 | XMS_ITS | Encounter Summary ---
Author Organization [place] Address [address] [facility] [place] [address] Care Team Providers Care Studio Data Analyst Name Role Phone No Ref-Primary, Physician Primary Care Provider Oleg Aparicio PA-C Unavailable [phone] Ana Oreilly MD Unavailable [phone] Encounter Details Date Type Department Care Team (Late st Contact Info) Description 10/20/2023 9:00 AM CDT Lab [facility] [address] [facility] [address] [place] [address] Pulmonary embolism affecting in second [...] ORDERABL ES SPECIAL COAGULATION Special Coagulation [address] [facility], [address] [id number] * (ABNORMAL) Low Molecular Weight [...] LAB - BLOOD ORDERABL ES [facility] [address] [facility], [address] [place] [address], [facility] documented in this encounter Visit Diagnoses Diagnosis Pulmonary embolism affecting in second trimester Family history of blood clots Family history of other blood disorders 31 weeks gestation of state, incidental History of pulmonary embolism Personal history of pulmonary embolism documented in this encounter Care Teams Studio Data Analyst Relationship Specialty Start Date End Date No Ref-Primary, Physician PCP - General 03/31/23 Oleg Aparicio PA-C [address] [facility] [address] [place], [place] [address] Assigned Cancer Care Provider 05/06/23 Ana Oreilly MD [address] [place] [address] Assigned OBGYN Provider 05/06/23 documented as of this encounter
--- OUTSIDE RECORDS SUMMARY | 2023-12-05 09:51 | XMS_ITS | Encounter Summary ---
Author Organization [place] Address [address] [facility] [place] [address] Care Team Providers Care Car Stower Name Role Phone No Ref-Primary, Physician Primary Care Provider Oleg Aparicio PA-C Unavailable [phone] Ana Oreilly MD Unavailable [phone] Reason for Referral * Genomics (Routine) - Authorized Specialty Diagnoses / Procedures Referred By Contac t Referred To Contact Diagnoses History of pulmonary embolism Family history of blood clots Procedures Factor 2 and 5 mutation analysis Oleg Aparicio PA-C [address] [place] [address] Referral ID Status Reason Start Date Expiration Date V isits Requested Visits Authorized [id number] Authorized 09/15/2023 09/14/2024 1 1 Reason for Visit * Reason Comments CLOTTING Encounter Details Date Type Department Care Team (Late st Contact Info) Description 09/15/2023 2:30 PM CDT Office Visit [facility] for [facility] Disorders [address] [facility] [address] [place] [address] Oleg Aparicio PA-C [address] [facility] [address] [place] [address] History of pulmonary embolism (Primary [...] included. [facility] [address] [place] [address] Main: [phone], Patient seen at: [facility] at [address] [place] [address] Outpatient Visit Note: Patient: Gabrielle Mcmahon : 1995 DEBORAH: September 15, 2023 Location of this production underwriter at the time of this clinic visit was conducted: [facility]. Location of the patient at the time of this clinic visit was conducted: [facility]. [...] up. She was last seen by this production underwriter back on 07/04/2023 Thrombosis History Summary: Found [...] around 14 weeks gestation), she presented to [facility] emergency department with chest pain. CTA chest [...] today, the emergency department physician abi [facility] Interventional Radiology and consult them [...] brain. 04/28/2023, she established care with this production underwriter and I determined that her pulmonary [...] History: 08/09/2023, she delivered her baby at [place]. She reports that it was an induction [...] 1 month post follow up with this production underwriter for which it is my plan to [...] and PmHx: All are reviewed by this production underwriter today via electronic medical records Social [...] is my recommendation and is also current [place] Society of Hematology (JHON) guidelines to be [...] today's testing. Oleg Aparicio PA-C, MPAS Physician Supervising Law Enforcement Analyst [facility] for Bleeding and Clotting Disorders. 30 [...] 5 mutation analysis (09/15/2023 3:05 PM CDT) [facility] METHODOLOGY The regions of genomic DNA containing the F5 gene mutation R506Q(1691G>A) and the Factor 2 (Prothrombin [id number]) gene mutation were simultaneously amplified using the polymerase chain reaction. The amplified products were digested with restriction endonuclease TaqI and products were analyzed by gel electrophoresis. 09/15/2023 3:05 PM CDT [facility] (LDL) RESULTS Factor V 1691G>A ([place]) RESULTS: Mutation analyzed: 1691G>A Factor V 1691G>A ([place]) Interpretation: ABSENT Factor V 1691G>A ([place]) mutation genotype: G/G FACTOR 2/PROTHROMBIN RESULTS: Mutation analyzed: 95079A>A Factor 2 Mutation Interpretation: ABSENT Factor 2 [...] will interfere with test results. Call the [facility] ([phone]) for instructions on sample collection for these patients. 09/15/2023 3:05 PM CDT [facility]LEC[facility] DIAGNOSTICS (LDL) DISCLAIMER This test was developed and its performance characteristics determined by [facility]. It has not been cleared or [...] PA-C LAB - GENOMICS Performing Organization Address [facility]/ZIP Co de Phone Number MOLECULAR DIAGNOSTICS (LDL) [facility] [address] [facility], [address] * Protein S Antigen Free (09/15/2023 3:05 PM CDT) Protein S Antigen Free 63 55 - 125 % 09/16/2023 9:59 AM CDT [facility] Blood STRUCTURE OF RIGHT UPPER LIMB / Unknown Venipuncture / Unknown 09/15/2023 3:05 PM CDT 09/15/2023 3:09 PM CDT Oleg Apaircio PA-C LAB - BLOOD ORDERABL ES Performing Organization Address [facility] Co de Phone Number [facility] Special Coagulation [address] [facility], Room [address] [address] * Protein C chromogenic (09/15/2023 3:05 PM CDT) Protein C Chromogenic 103 70 - 170 % 09/16/2023 9:58 AM CDT SPECIAL COAGULATION Blood STRUCTURE OF RIGHT UPPER LIMB / Unknown Venipuncture / Unknown 09/15/2023 3:05 PM CDT 09/15/2023 3:09 PM CDT Oleg Aparicio PA-C LAB - BLOOD ORDERABL ES Performing Organization Address City/[facility]/ZIP Co de Phone Number [facility] SPECIAL [facility] Special Coagulation [address] [facility], [address] [address] * (ABNORMAL) Antithrombin III (09/15/2023 3:05 PM [...] [facility] SPECIAL COAGULATION [facility] Special Coagulation [address] [facility] [address], [address] [place] [address], [facility] documented in this encounter Visit Diagnoses Diagnosis History of pulmonary embolism- Primary Personal history of pulmonary embolism Family history of blood clots Family history of other blood disorders documented in this encounter Care Teams Car Stower Relationship Specialty Start Date End Date No Ref-Primary, Physician PCP - General 03/31/23 Oleg Aparicio PA-C [address] [facility] [address] [place], [place] [address] Assigned Cancer Care Provider 05/06/23 Ana Oreilly MD [address] [place] [address] Assigned OBGYN Provider 05/06/23 documented as of this encounter
--- OUTSIDE RECORDS SUMMARY | 2023-12-05 09:51 | XMS_ITS | Encounter Summary ---
Author Organization [place] Address [address] [place] [address]. [place] [address] Care Team Providers Care Picking Crew Supervisor Name Role Phone No Ref-Primary, Physician Primary Care Provider Oleg Aparicio PA-C Unavailable [phone] Ana Oreilly MD Unavailable [phone] Encounter Details Date Type Department Care Team (Late st Contact Info) Description 09/22/2023 [facility] Medical Advice [facility] [address] [facility] [address] [place] [address] Oleg Aparicio PA-C [address] [place] [address] 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 Tobacco Use Types [...] on filedocumented in this encounter Care Teams Picking Crew Supervisor Relationship Specialty Start Date End Date No Ref-Primary, Physician PCP - General 03/31/23 Oleg Aparicio PA-C [address] [place] [address] Assigned Cancer Care Provider 05/06/23 Ana Oreilly MD [address] [facility] [address] [place], [place] [address] Assigned OBGYN Provider 05/06/23 documented as of this encounter
--- OUTSIDE RECORDS SUMMARY | 2023-12-05 09:51 | XMS_ITS | Encounter Summary ---
Author Organization [place] Address [address] [place] [address]. [place] [address] Care Team Providers Care Master Control Engineer Name Role Phone No Ref-Primary, Physician Primary Care Provider Oleg Aparicio PA-C Unavailable [phone] Ana Oreilly MD Unavailable [phone] Encounter Details Date Type Department Care Team ([facility] st Contact Info) Description 10/21/2023 Telephone [facility] for [facility] [address] [address] Oleg Aparicio PA-C [address] [address] 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 Tobacco Use Types [...] from the original note were not included. [facility] [address] [place] [address] [address], [place] [address] Main: [phone], Telephone Note: Patient: Gabrielle Mcmahon : 1995 Date of this note written: October 21, 2023 This customs entry writer called the patient on 10/21/2023 at [...] result does not mean anything to this customs entry writer despite that it is >2.0 I [...] 54 (L) Oleg Aparicio PA-C, MPAS Physician Entry Level Machine Operator [facility] for Bleeding and Clotting Disorders. documented in this encounter Plan of Treatment Not on file documented as of this encounter Visit Diagnoses Diagnosis History of pulmonary embolism- Primary Personal history of pulmonary embolism Family history of blood clots Family history of other blood disorders Antithrombin III deficiency (H) Primary hypercoagulable state documented in this encounter Care Teams Master Control Engineer Relationship Specialty Start Date End Date No Ref-Primary, Physician PCP - General 03/31/23 Oleg Aparicio PA-C [address] [place], [place] [address] Assigned Cancer Care Provider 05/06/23 Ana Oreilly MD [address] [place], [place] [address] Assigned OBGYN Provider 05/06/23 documented as of this encounter
--- OUTSIDE RECORDS SUMMARY | 2023-12-05 09:51 | XMS_ITS | Encounter Summary ---
Author Organization [place] Address [address] [facility] [place] [address] Care Team Providers Care Endoscope Technician Name Role Phone No Ref-Primary, Physician Primary Care Provider Oleg Aparicio PA-C Unavailable [phone] Ana Oreilly MD Unavailable [phone] Encounter Details Date Type Department Care [...] on filedocumented in this encounter Care Teams Endoscope Technician Relationship Specialty Start Date End Date No Ref-Primary, Physician PCP - General 03/31/23 Oleg Aparicio PA-C [address] [place] [address] [address] [place] [address] Assigned Cancer Care Provider 05/06/23 Ana Oreilly MD [address] [address] [place] [address] Assigned OBGYN Provider 05/06/23 documented as of this encounter
--- OUTSIDE RECORDS SUMMARY | 2023-12-05 09:51 | XMS_ITS | Encounter Summary ---
Author Organization [place] Address [address] [facility] [place] [address] Care Team Providers Care Supervisor Shearing Name Role Phone No Ref-Primary, Physician Primary Care Provider Oleg Aparicio PA-C Unavailable [phone] Ana Orielly MD Unavailable [phone] Encounter Details Date Type Department Care Team (Late st Contact Info) Description 11/09/2023 [facility] Medical Advice [facility] Special[facility] Laboratories [address] [place] [address] Zachary Bean 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 Tobacco Use Types [...] filedocumented in this encounter Care Teams Supervisor Shearing Relationship Specialty Start Date End Date No Ref-Primary, Physician PCP - General 03/31/23 Oleg Aparicio PA-C [address] [place] [address] Assigned Cancer Care Provider 05/06/23 Ana Oreilly MD [address] [facility] [address] [place] [address] Assigned OBGYN Provider 05/06/23 documented as of this encounter
--- OUTSIDE RECORDS SUMMARY | 2023-12-05 09:51 | XMS_ITS | Encounter Summary ---
Author Organization [place] Address [address] [facility] [place] [address] Care Team Providers Care Rubber Stamp Assembler Name Role Phone No Ref-Primary, Physician Primary Care Provider Oleg Aparicio PA-C Unavailable [phone] Ana Oreilly MD Unavailable [phone] Encounter Details Date Type Department Care Team (Late st Contact Info) Description 10/18/2023 Telephone [facility] [address] [place] [id number] Sandie White, RN 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 Tobacco Use [...] White RN - 10/18/2023 3:38 PM CDT [id number] Gabrielle Mcmahon 28 year old female CBCD [...] Sandie White RN, BSN, PCCN Nurse Clinician [facility] [address] [place] [address] [address] [address] Office, direct: [phone] Main office number: [phone] Pronouns: She, her, hers documented in this encounter Plan of Treatment Not on file documented as of this encounter Visit Diagnoses Not on filedocumented in this encounter Care Teams Rubber Stamp Assembler Relationship Specialty Start Date End Date No Ref-Primary, Physician PCP - General 03/31/23 Oleg Aparicio PA-C [address] [place] [address] [address] [place], [place] [address] Assigned Cancer Care Provider 05/06/23 Ana Oreilly MD [address] [facility] [address] [place], [place] [address] Assigned OBGYN Provider 05/06/23 documented as of this encounter
--- OUTSIDE RECORDS SUMMARY | 2023-12-05 09:51 | XMS_ITS | Encounter Summary ---
Author Organization [place] Address [address] [place] [address]. [place] [address] Care Team Providers Care Lavatory Attendant Name Role Phone No Ref-Primary, Physician Primary Care Provider Oleg Aparicio PA-C Unavailable [phone] Ana Oreilly MD Unavailable [phone] Encounter Details Date Type Department Care Team (Late st Contact Info) Description 10/21/2023 Telephone [facility] [address] [place] [address] Ron Hanley RN 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 [...] Hanley RN - 10/21/2023 8:10 AM CDT [id number] Gabrielle Mcmahon Date: 10/21/2023 Time of Receipt from Lab: 0811 Lab Test: LMWH anti-Xa Lab Value: >2.00 Results given to: Oleg Aparicio PA-C Time lab value reported to provider: 0811 Ron WEBER RN [facility] for [facility]ot[facility] Disorders Office: [phone] Clinic: [phone] documented in this encounter Plan of Treatment Not on file documented as of this encounter Visit Diagnoses Not on filedocumented in this encounter Care Teams Lavatory Attendant Relationship Specialty Start Date End Date No Ref-Primary, Physician PCP - General 03/31/23 Oleg Aparicio, PABrightC [facility] [address] [place] [address] Assigned Cancer Care Provider 05/06/23 Ana Oreilly MD [address] [address] [place], [place] [address] Assigned OBGYN Provider 05/06/23 documented as of this encounter
--- OUTSIDE RECORDS SUMMARY | 2023-12-05 09:51 | XMS_ITS | Encounter Summary ---
Author Organization [place] Address [address] [place] [address]. [place] [address] Care Team Providers Care Skip Hoist Engineer Name Role Phone No Ref-Primary, Physician Primary Care Provider Oleg Aparicio PA-C Unavailable [phone] Ana Oreilly MD Unavailable [phone] Encounter Details Date Type Department Care Team ([facility] st Contact Info) Description 09/19/2023 Telephone [facility] [address] [address] Oleg Aparicio PA-C [address] [address] 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 Tobacco Use Types [...] from the original note were not included. [facility] [address] [place] [address] [address] [address] Main: [phone], Patient: Gabrielle Mcmahon : 1995 Date of this note written: September 19, 2023 This ghost writer spoke with the patient on 09/19/2023 [...] % 63 Oleg Aparicio PA-C, MPAS Physician Storage Receipt Poster [facility] for Bleeding and Clotting Disorders. documented in this encounter Plan of Treatment Not on file documented as of this encounter Results * (ABNORMAL) Antithrombin III (10/20/2023 9:10 AM CDT) [facility] Antithrombin III 54(L) 85 - 135 [...] ES [facility] Special Coagulation [address] [facility], Room [address] [place] [address] documented in this encounter Visit Diagnoses Diagnosis History of pulmonary embolism- Primary Personal history of pulmonary embolism Family history of blood clots Family history of other blood disorders Pulmonary embolism affecting in second trimester documented in this encounter Care Teams Skip Hoist Engineer Relationship Specialty Start Date End Date No Ref-Primary, Physician PCP - General 03/31/23 Oleg Aparicio PA-C [address] [facility] [address] [facility] [address] [place], [place] [address] Assigned Cancer Care Provider 05/06/23 Ana Oreilly MD [address] [facility] 400 [place] [address] Assigned OBGYN Provider 05/06/23 documented as of this encounter
--- OUTSIDE RECORDS SUMMARY | 2023-12-05 09:51 | XMS_ITS | Encounter Summary ---
Author Organization [place] Address [address] [facility] [place] [address] Care Team Providers Care Medical Assembler Name Role Phone No Ref-Primary, Physician Primary Care Provider Oleg Apariico PA-C Unavailable [phone] Ana Oreilly MD Unavailable [phone] Reason for Referral * Genomics (Routine) - Closed Specialty Diagnoses / Procedures Referred By Contac t Referred To Contact Diagnoses Antithrombin III deficiency (H) Procedures Hereditary Genomics Hold For Preauthorization: Travis Mcdaniel MD [address] [facility] [address] [place] [address] Referral ID Status Reason Start Date Expiration Date Visits Re quested Visits Authorized [id number] Closed 10/25/2023 10/24/2024 1 1 Encounter Details Date Type Department Care Team (Latest Contact Info) Description 10/25/2023 11:00 AM CDT Virtual Visit [facility] for Bleeding and Clot[facility] Disorders [address] [facility] [address] [place] [phone] Oleg Aparicio PA-C [address] [place], [place] [address] Handler, IMELDA Sánchez Antithrombin III deficiency (H) [...] Maternal and paternal ancestry is Scandinavian and Hungarian. There is no reported consanguinity. Discussion: We [...] obtained verbally for SERPINC1 gene testing at [facility]. We will begin with insurance [...] 30 minutes. Princess Villagran, PhD, MS, [facility] Genetic Counselor [...] state documented in this encounter Care Teams Medical Assembler Relationship Specialty Start Date End Date No Ref-Primary, Physician PCP - General 03/31/23 Oleg Aparicio, PA-C [address] [place], [place] [address] Assigned Cancer Care Provider 05/06/23 Ana Oreilly MD [address] [place], [place] [address] Assigned OBGYN Provider 05/06/23 documented as of this encounter
--- OUTSIDE RECORDS SUMMARY | 2023-12-05 09:51 | XMS_ITS | Encounter Summary ---
Author Organization [place] Address [address] [place] [address]. [place] [address] Care Team Providers Care Strip Mill Operator Name Role Phone No Ref-Primary, Physician Primary Care Provider Oleg Aparicio PA-C Unavailable [phone] Ana Oreilly MD Unavailable [phone] Encounter Details Date Type Department Care Team ([facility] st Contact Info) Description 10/10/[address] [facility] for Ble[facility] [address] [address] Oleg Aparicio PA-C [address] [address] 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 Tobacco Use Types [...] original note were not included. [facility] for [facility]ot[facility] [address] [place] [address] [address], [place] [address] Main: [phone], Telephone Note: Patient: Gabrielle Mcmahon : 1995 Date of this note written: October 10, 2023 Patient is currently on rivaroxaban at 20 mg PO Qday. She is calling reporting that her menstrual bleeding last week was rather heavy with her changing her pads and tampons every hour for 1.5 days. She reports that her hemoglobin done at her Bleach Machine Operator follow up appointment on 10/07/2023 was 12.6. [...] anticoagulation therapy. Oleg Aparicio PA-C, MPAS Physician Shot Grinder Operator [facility] for Bleeding and Clotting Disorders. documented in this encounter Plan of Treatment Not on file documented as of this encounter Visit Diagnoses Not on filedocumented in this encounter Care Teams Strip Mill Operator Relationship Specialty Start Date End Date No Ref-Primary, Physician PCP - General 03/31/23 Oleg Aparicio PA-C [address] [place], [place] [address] Assigned Cancer Care Provider 05/06/23 Ana Oreilly MD [address] [place] [address] Assigned OBGYN Provider 05/06/23 documented as of this encounter
--- OUTSIDE RECORDS SUMMARY | 2023-12-05 09:51 | XMS_ITS | Referral Summary ---
Author Organization [facility] Address [address] [place] [address] Care Team Providers Care Learning And Development Coordinator Name Role Phone Elsewhere, Pcp Primary Care Provider Unavailabl e Source Comments Patient records contain information from all sites at [facility]. For routine questions regarding patient records, call [phone] during business hours, M-F 8:00 AM - 5:00 PM Central Time. Record requests for emergency care only can be directed to [phone] at any time.[facility] Allergies No known active allergies Medications * This document contains information received from the source organization and may not represent a complete record from that organization. [id number] (VINATE ONE) 60 mg iron-1 mg [...] 02/21/2022 How often do you attend chur ch or synagogue services? More than 4 times per year 02/21/2022 Do you belong to any clubs o r organizations such as jehovah's witness groups, unions, fraternal or athletic groups, or [...] and heating? Not hard at all 02/21/2022 [facility] - Occupational [...] place to sleep or slept in a care home (including now)? No 02/21/2022 Nutrition Answer [...] Sex Assigned at Female 02/21/2022 11:00 AM HOLISTIC NUTRITIONIST Legal Sex Female 8:55 AM CDT Gender Identity Female 02/21/2022 11:00 AM HOLISTIC NUTRITIONIST Sexual Orientation Straight 02/21/2022 11 :00 AM HOLISTIC NUTRITIONIST Last Filed Vital Signs Vital Sign Reading Time Taken Comments Blood Pressure - - Pulse - - Temperature 36.6 ??C (97.9 ??F) 02/24/2022 12:[address] Respiratory Rate - - Oxygen Saturation - - Inhaled Oxygen Concentration - - Weight 72.4 kg (159 lb 9.8 oz) 02/24/2022 12:38 PM HOLISTIC NUTRITIONIST Height 169.7 cm (5' 6.81) 02/24/2022 12:[address] Body Mass Index 25.14 02/24/2022 12:38 PM HOLISTIC NUTRITIONIST Plan of Treatment Not on file Insurance [facility] Care Teams Learning And Development Coordinator Relationship Specialty Start Date End Date Elsewhere, Pcp PCP - General Internal Medicine 02/24/22
--- OUTSIDE RECORDS SUMMARY | 2023-12-05 09:51 | XMS_ITS | Encounter Summary ---
Author Organization [place] Address [address] [facility] [place] [address] Care Team Providers Care Wood Strip Block Floor Installer Name Role Phone No Ref-Primary, Physician Primary Care Provider Oleg Aparicio PA-C Unavailable Ana Oreilly MD Unavailable [phone] Encounter Details Date Type Department Care Team (Late st Contact Info) Description 11/24/2023 Telephone [facility] [address] [place] [address] Zachary Bean 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 Tobacco Use Types [...] called Gabrielle to follow up on my [employer] message sent on 11/08/23 as I have [...] reason for calling. I also sent a [employer] message to follow up with the patient. Zachary Bean Genomics Billing Nursing Officer [facility] [address] [facility] [place] [address] [email or web address] Office: [phone] Fax: Employed by [employer] documented in this encounter Plan of Treatment Not on file documented as of this encounter Visit Diagnoses Not on filedocumented in this encounter Care Teams Wood Strip Block Floor Installer Relationship Specialty Start Date End Date No Ref-Primary, Physician PCP - General 03/31/23 Oleg Aparicio, PABrightC [address] [place], [place] [address] Assigned Cancer Care Provider 05/06/23 Ana Oreilly MD [address] [place] [address] Assigned OBGYN Provider 05/06/23 documented as of this encounter
--- OUTSIDE RECORDS SUMMARY | 2023-12-05 09:51 | XMS_ITS ---
Author Organization [facility] Address [address] [place] [address] Care Team Providers Care Senior Erp Consultant Name Role Phone Unavailable Unavailable Unavailable Surgery Details Not on file Complications Check Surgery Details section. Procedure Estimated Blood Loss Check Surgery Details section. Procedure Findings Check Surgery Details section. Procedure Specimens Taken Check Surgery Details section.
--- OUTSIDE RECORDS SUMMARY | 2023-12-05 09:51 | XMS_ITS | Encounter Summary ---
Author Organization [place] Address [address] [facility] [address] Care Team Providers Care Motion Picture Critic Name Role Phone No Ref-Primary, Physician Primary Care Provider Oleg Aparicio PA-C Unavailable [phone] Ana Oreilly MD Unavailable [phone] Encounter Details Date Type Department Care [...] on filedocumented in this encounter Care Teams Motion Picture Critic Relationship Specialty Start Date End Date No Ref-Primary, Physician PCP - General 03/31/23 Oleg Aparicio PA-C [address] [place] [address] 105 [place] [address] Assigned Cancer Care Provider 05/06/23 Ana Oreilly MD [address] 400 [place] [address] Assigned OBGYN Provider 05/06/23 documented as of this encounter
--- OUTSIDE RECORDS SUMMARY | 2023-12-05 09:51 | XMS_ITS | Encounter Summary ---
Author Organization [place] Address [address] [place] [address]. [place] [address] Care Team Providers Care Elementary School Band Director Name Role Phone No Ref-Primary, Physician Primary Care Provider Oleg Aparicio PA-C Unavailable [phone] Ana Oreilly MD Unavailable [phone] Encounter Details Date Type Department Care Team ([facility] st Contact Info) Description 08/31/2023 Telephone [facility] for Bleeding [facility] Clot[facility] Disorders [address] [place] [address] Elsa Ariza RN 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 [...] filedocumented in this encounter Care Teams Elementary School Band Director Relationship Specialty Start Date End Date No Ref-Primary, Physician PCP - General 03/31/23 Oleg Aparicio PA-C [address] [place] [address] Assigned Cancer Care Provider 05/06/23 Ana Oreilly MD [address] [address] Assigned OBGYN Provider 05/06/23 documented as of this encounter
--- OUTSIDE RECORDS SUMMARY | 2023-12-05 09:51 | XMS_ITS | Encounter Summary ---
Author Organization [place] Address [address] [facility] [place] [address] Care Team Providers Care Paint Line Production Supervisor Name Role Phone No Ref-Primary, Physician Primary Care Provider Oleg Aparicio PA-C Unavailable [phone] Ana Oreilly MD Unavailable [phone] Encounter Details Date Type Department Care [...] on filedocumented in this encounter Care Teams Paint Line Production Supervisor Relationship Specialty Start Date End Date No Ref-Primary, Physician PCP - General 03/31/23 Oleg Aparicio PA-C [address] [place] [address] [address] [place] [address] Assigned Cancer Care Provider 05/06/23 Ana Orielly MD [address] [address] [place] [address] Assigned OBGYN Provider 05/06/23 documented as of this encounter
--- OUTSIDE RECORDS SUMMARY | 2023-12-15 15:03 | XMS_ITS | Encounter Summary ---
Author Organization [place] Address [address] [facility] [place] [address] Care Team Providers Care Zoo Director Name Role Phone No Ref-Primary, Physician Primary Care Provider Oleg Apraicio PA-C Unavailable [phone] Ana Oreilly MD Unavailable [phone] Encounter Details Date Type Department Care [...] Recorded Sex Assigned at Not on file Legal Sex Female 8:39 AM CASH PROCESSING SPECIALIST Gender Identity Not on file Sexual Orientation Not on file documented as of this encounter Plan of Treatment Not on file documented as of this encounter Visit Diagnoses Not on filedocumented in this encounter Care Teams Zoo Director Relationship Specialty Start Date End Date No Ref-Primary, Physician PCP - General 03/31/23 Oleg Aparicio PA-C [address] [place] [address] Assigned Cancer Care Provider 05/06/23 Ana Oreilly MD [address] [place] [address] [address] [place] [address] Assigned OBGYN Provider 05/06/23 documented as of this encounter
--- OUTSIDE RECORDS SUMMARY | 2023-12-15 15:03 | XMS_ITS | Encounter Summary ---
Author Organization [place] Address [address] [place] [address]. [place] [address] Care Team Providers Care Child Caregiver Name Role Phone No Ref-Primary, Physician Primary Care Provider Oleg Aparicio PA-C Unavailable [phone] Ana Oreilly MD Unavailable [phone] Encounter Details Date Type Department Care Team ([facility] st Contact Info) Description 10/21/2023 Telephone [facility] for Ble[facility] Clot[facility] Disorders [address] [facility] [address] [place] [address] Oleg Aparicio PA-C [address] [facility] [address] [place] [address] 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 Tobacco Use Types [...] on file Legal Sex Female 8:39 AM MANAGER CASE MANAGEMENT Gender Identity Not on file Sexual Orientation Not on file documented as of this encounter Miscellaneous Notes * Telephone Encounter - Oleg Aparicio PA-C - 10/21/2023 9:54 AM CDT Images from the original note were not included. [facility] for Bleeding and Clotting Disorders [address] [place] [address], [address], [place] [id number] Main: [phone], Telephone Note: Patient: Gabrielle Mcmahon : 1995 Date of this note written: October 21, 2023 This song writer called the patient on 10/21/2023 at [...] result does not mean anything to this song writer despite that it is >2.0 I [...] right biceps area arterial thrombosis. According to Gabrielle, her mother's antithrombin III testing was within [...] 54 (L) Oleg Aparicio PA-C, MPAS Physician Support Architect [facility] for Bleeding and Clotting Disorders. documented in this encounter Plan of Treatment Not on file documented as of this encounter Visit Diagnoses Diagnosis History of pulmonary embolism- Primary Personal history of pulmonary embolism Family history of blood clots Family history of other blood disorders Antithrombin III deficiency (H) Primary hypercoagulable state documented in this encounter Care Teams Child Caregiver Relationship Specialty Start Date End Date No Ref-Primary, Physician PCP - General 03/31/23 Oleg Aparicio PA-C [address] [place], [place] [address] Assigned Cancer Care Provider 05/06/23 Ana Oreilly MD [address] [place] [address] Assigned OBGYN Provider 05/06/23 documented as of this encounter
--- OUTSIDE RECORDS SUMMARY | 2023-12-15 15:03 | XMS_ITS | Encounter Summary ---
Author Organization [place] Address [address] [place] [address]. [place] [address] Care Team Providers Care Store Team Member Name Role Phone No Ref-Primary, Physician Primary Care Provider Oleg Aparicio PA-C Unavailable [phone] Ana Oreilly MD Unavailable [phone] Encounter Details Date Type Department Care Team (Late st Contact Info) Description 10/21/[address] [facility] for Bleeding and Clotting Disorders [address] [place] [address] Ron Hanley RN 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 [...] on file Legal Sex Female 8:39 AM SPUD GRADER Gender Identity Not on file Sexual Orientation Not on file documented as of this encounter Miscellaneous Notes * Telephone Encounter - Ron Hanley RN - 10/21/2023 8:10 AM CDT [id number] Gabrielle Mcmahon Date: 10/21/2023 Time of Receipt from Lab: 0811 Lab Test: LMWH anti-Xa Lab Value: >2.00 Results given to: Oleg Aparicio PA-C Time lab value reported to provider: 0811 Ron WEBER RN [facility] for Bleeding and Clotting Disorders Office: [phone] Clinic: [phone] documented in this encounter Plan of Treatment Not on file documented as of this encounter Visit Diagnoses Not on filedocumented in this encounter Care Teams Store Team Member Relationship Specialty Start Date End Date No Ref-Primary, Physician PCP - General 03/31/23 Oleg Aparicio PA-C [address] [place] [address] [address] [place] [address] Assigned Cancer Care Provider 05/06/23 Ana Oreilly MD [address] [address] [place] [address] Assigned OBGYN Provider 05/06/23 documented as of this encounter
--- OUTSIDE RECORDS SUMMARY | 2023-12-15 15:03 | XMS_ITS | Encounter Summary ---
Author Organization [place] Address [address] [place] [address]. [place] [address] Care Team Providers Care Speech Communication Instructor Name Role Phone No Ref-Primary, Physician Primary Care Provider Oleg Aparicio PA-C Unavailable [phone] Ana Oreilly MD Unavailable [phone] Encounter Details Date Type Department Care Team (Late st Contact Info) Description 12/01/2023 3:00 PM CDT Lab [facility] [address] [place] [address] Antithrombin III deficiency (H) (Primary Dx) 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 Tobacco Use Types Packs/Day Years Used Date Smoking Tobacco: Never Passive Smoke Exposure: Never Smokeless Tobacco: Never Alcohol Use Standard Drinks/Week Comments Not Currently 0 (1 standard drink = 0.6 oz pur e alcohol) Adolescent Education Answer Date Record ed Getting School Help Needed Not on file 11/13 Comments No Sex and Gender Information Value Date Recorded Sex Assigned at Not on file Legal Sex Female 8:39 AM MANAGEMENT INTERNSHIP Gender Identity Not on file Sexual Orientation [...] 2:48 PM CDT 12/01/2023 2:48 PM CDT us Travis Mcdaniel MD LAB CHARGE PERFORMABLES Fi nal Result [facility] [address] [facility] [address] Building, Room 3-[address] documented in this encounter Visit Diagnoses Diagnosis Antithrombin III deficiency (H)- Primary Primary hypercoagulable state documented in this encounter Care Teams Speech Communication Instructor Relationship Specialty Start Date End Date No Ref-Primary, Physician PCP - General 03/31/23 Oleg Aparicio, PABrightC [address] [place] [address] Assigned Cancer Care Provider 05/06/23 Ana Oreilly MD [address] [place] [address] Assigned OBGYN Provider 05/06/23 documented as of this encounter
--- OUTSIDE RECORDS SUMMARY | 2023-12-15 15:03 | XMS_ITS | Encounter Summary ---
Author Organization [place] Address [address] [facility] [place] [address] Care Team Providers Care Fire Extinguisher Repairer Inspector Name Role Phone No Ref-Primary, Physician Primary Care Provider Oleg Aparicio PA-C Unavailable [phone] Ana Oreilly MD Unavailable [phone] Encounter Details Date Type Department Care Team (Late st Contact Info) Description 11/24/2023 [facility] Medical Advice Formerly [facility] [address] [place] [address] Zachary Bean 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 Tobacco Use Types [...] on file Legal Sex Female 8:[address] Gender Identity Not on file Sexual Orientation Not on file documented as of this encounter Plan of Treatment Not on file documented as of this encounter Visit Diagnoses Not on filedocumented in this encounter Care Teams Fire Extinguisher Repairer Inspector Relationship Specialty Start Date End Date No Ref-Primary, Physician PCP - General 03/31/23 Oleg Aparicio PA-C [address] [facility] [address] [id number] Assigned Cancer Care Provider 05/06/23 Ana Oreilly MD [address] [address] Assigned OBGYN Provider 05/06/23 documented as of this encounter
--- OUTSIDE RECORDS SUMMARY | 2023-12-15 15:03 | XMS_ITS | Encounter Summary ---
Author Organization [place] Address [address] [facility] [place] [address] Care Team Providers Care Cytotechnologist/Histotechnologist Name Role Phone No Ref-Primary, Physician Primary Care Provider Oleg AparicioC Unavailable [phone] Ana Oreilly MD Unavailable [phone] Encounter Details Date Type Department Care Team (Late st Contact Info) Description 11/24/2023 Telephone [facility] [address] [place] [address] Zachary Bean 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 Tobacco Use Types [...] on file Legal Sex Female 8:39 AM ADVANCED PRACTICE PSYCHIATRIC NURSE Gender Identity Not on file Sexual Orientation Not on file documented as of this encounter Progress Notes * Zachary Bean - 11/24/2023 4:51 PM CDT I called Gabrielle to follow up on my BAC ON TRACt message sent on 11/08/23 as I have [...] reason for calling. I also sent a [employer] message to follow up with the patient. Zachary Bean Genomics Billing Filter Tender [facility] Molecular Diagnostics Laboratory [facility] [address] [facility]. [address] [place] [address] [email or web address] Office: [phone] Fax: Employed by [place] documented in this encounter Plan of Treatment Not on file documented as of this encounter Visit Diagnoses Not on filedocumented in this encounter Care Teams Cytotechnologist/Histotechnologist Relationship Specialty Start Date End Date No Ref-Primary, Physician PCP - General 03/31/23 Oleg Aparicio, PA-C [address] [facility] [address] [place] [address] Assigned Cancer Care Provider 05/06/23 Ana Oreilly MD [address] [place] [address] Assigned OBGYN Provider 05/06/23 documented as of this encounter
--- OUTSIDE RECORDS SUMMARY | 2023-12-15 15:03 | XMS_ITS | Encounter Summary ---
Author Organization [place] Address [address] [place] [address] Care Team Providers Care Donor Relations Coordinator Name Role Phone No Ref-Primary, Physician Primary Care Provider Oleg Aparicio PA-C Unavailable [phone] Ana Oreilly MD Unavailable [phone] Reason for Referral * Genomics (Routine) - Closed Specialty Diagnoses / Procedures Referred By Contac t Referred To Contact Diagnoses Antithrombin III deficiency (H) Procedures [facility] Hold For Preauthorization: Travis Mcdaniel MD [address] [facility] [address] [place] [address] Phone: tel: fax: Referral ID Status Reason Start Date Expiration Date Visits Re quested Visits Authorized [id number] Closed 10/25/2023 10/24/2024 1 1 Encounter Details Date Type Department Care Team (Latest Contact Info) Description 10/25/2023 11:00 AM CDT Virtual Visit [facility] [address] [facility] [address] [place] [address] Oleg Aparicio PA-C [address] [place] [address] Handler, IMELDA Sánchez Antithrombin III deficiency (H) [...] on file 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 There is no reported consanguinity. Discussion: We [...] obtained verbally for SERPINC1 gene testing at [facility]. We will begin with insurance [...] Phone: 30 minutes. Princess Villagran, PhD, MS, [place] Genetic Counselor CC: No Letter documented in this encounter Plan of Treatment Not on file documented as of this encounter Results * [facility] Hold For Preauthorization: (11/23/2023 10:06 AM CDT) Interpretation Sample processed in lab for DNA for genetic testing. Insurance preauthorization will be initiated. Contact lab with questions, . (Electronically signed by: Kely Winters December 06, 2023 2:03 PM) 12/06/2023 2:03 PM CDT [facility] (LDL) Blood STRUCTURE OF RIGHT UPPER LIMB / Unknown Venipuncture / Unknown 11/23/2023 10:06 AM CDT 11/23/2023 10:06 AM CDT us Travis Mcdaniel MD LAB - GENOMICS Final Resu lt [facility] (LDL) [facility] [address] [facility], [address] documented in this encounter Visit Diagnoses Diagnosis Antithrombin III deficiency (H)- Primary Primary hypercoagulable state documented in this encounter Care Teams Donor Relations Coordinator Relationship Specialty Start Date End Date No Ref-Primary, Physician PCP - General 03/31/23 Oleg Aparicio, PABrightC [address] [place] [address] Assigned Cancer Care Provider 05/06/23 Ana Oreilly MD [address] [place] [address] Assigned OBGYN Provider 05/06/23 documented as of this encounter
--- OUTSIDE RECORDS SUMMARY | 2023-12-15 15:03 | XMS_ITS | Clinical Summary ---
Author Organization [place] Address [address] [facility] [place] [address] Care Team Providers Care Metal Model Builder Name Role Phone No Ref-Primary, Physician Primary Care Provider Oleg Aparicio PA-C Unavailable [phone] Ana Oreilly MD Unavailable [phone] Allergies No known active allergies Medications Vit-Fe Fumarate-FA ( VITAMIN PO) Take 1 tablet by mouth daily Active apixaban ANTICOAGULANT (ELIQUIS) 5 MG tabletIndications: History of pulmonary embolism,Family history of blood clots,Antithrombin III deficiency (H) Take 1 tablet (5 mg) by mouth 2 times daily. 180 tablet 1 4 Active Active Problems Problem Noted Date Diagnosed [...] Team Description 12/01/2023 3:00 PM CDT Lab [facility] [place] [facility] [address] [place] [address] Antithrombin III deficiency (H) (Primary Dx) 12/01/2023 Telephone [facility] [address] [place] [address] Vikas, Zachary 11/24/2023 My[facility] Medical Advice [facility] [address] [place] [address] Vikas, Zachary 11/24/2023 Telephone [facility] [address] [place] [address] Vikas, Zachary 11/23/2023 10:00 AM CDT Lab [facility] [address] [place] [address] Antithrombin III deficiency (H) 11/23/2023 Travel 11/21/2023 Telephone [facility] [address] [facility] [address] [place] [phone] Sandie White RN 11/09/2023 MyC Medical Advice [facility] [address] [place] [address] Vikas, Zachary 10/25/2023 11:00 AM CDT Virtual Visit [facility] [address] [facility] [address] [place] [phone] Oleg Aparicio PA-C Handler, Hillary, GC Antithrombin III deficiency (H) (Primary Dx) 10/21/2023 Telephone [facility] [address] [facility] [address] [place] [phone] Oleg Aparicio PA-C 10/21/2023 [facility] [address] [facility] [address] [place] [address] Ron Hanley RN 10/20/2023 9:00 AM CDT Lab [facility] [address] [place] [address] Pulmonary embolism affecting in second trimester; Family history of blood clots; 31 weeks gestation of ; History of pulmonary embolism 10/20/2023 Travel 10/18/2023 Telephone [facility] [address] [facility] [address] [place] [phone] Sandie White RN 10/10/2023 Telephone [facility] [address] [facility] [address] [place] [phone] Oleg Aparicio PA-C 09/22/2023 MyC Medical Advice [facility] [address] [place] [address] [address] [place] [phone] Oleg Aparicio PA-C 09/19/2023 Telephone [facility] [address] [place] [address] [address] [place] [phone] Oleg Aparicio PA-C 09/15/2023 2:30 PM CDT Office Visit 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 Gender Identity Not on file Sexual Orientation [...] 2:48 PM CDT Antithrombin III deficiency (H) [facility] HOLD FOR PREAUTHORIZATION Routine 11/23/2023 10:06 AM CDT Antithrombin III deficiency (H) ANTITHROMBIN III [...] blood clots PROTEIN S ANTIGEN FREE Routine 3:05 PM CDT History of pulmonary embolism [...] MOLECULAR DIAGNOSTICS (LDL) [facility] [address] [facility], [address] * [facility] Hold For Preauthorization: (11/23/2023 10:06 AM CDT) Pathologist [facility] Interpretation Sample processed in lab for DNA for genetic testing. Insurance preauthorization will be initiated. Contact lab with questions, . (Electronically signed by: Kely Winters December 06, 2023 2:03 PM) 12/06/2023 2:03 PM CDT MOLECULAR DIAGNOSTICS (LDL) Blood STRUCTURE OF RIGHT UPPER LIMB / Unknown Venipuncture / Unknown 11/23/2023 10:06 AM CDT 11/23/2023 10:06 AM CDT us Travis Mcdaniel MD LAB - GENOMICS Final Resu lt Performing Organization Address City/[facility]/ZIP Co de Phone Number MOLECULAR DIAGNOSTICS (LDL) Molecular Diagnostics [address] [facility], [address] * (ABNORMAL) Low Molecular Weight Heparin Anti Xa Level (10/20/2023 9:10 AM CDT) [facility] Anti Xa Low Molecular Weight >2.00(HH) [...] Pediatrics: If administered twice daily: 0.50-1.0 IU/mL. us Oleg Aparicio PA-C LAB - BLOOD ORDERABLES Final R esult [facility] [place] [facility] [address] [facility], [address] [address] * (ABNORMAL) Antithrombin III [...] 9:10 AM CDT 10/20/2023 9:10 AM CDT us Oleg Aparicio PA-C LAB - BLOOD ORDERABLES Final R esult SPECIAL COAGULATION Special Coagulation [address] [facility], [address] [place] [address] * Factor 2 and 5 mutation analysis (09/15/2023 3:05 PM CDT) Pathologist [facility] METHODOLOGY The regions of genomic DNA containing the F5 gene mutation R506Q(1691G>A) and the Factor 2 (Prothrombin [id number]) gene mutation were simultaneously amplified using the polymerase chain reaction. The amplified products were digested with restriction endonuclease TaqI and products were analyzed by gel electrophoresis. 09/15/2023 3:05 PM CDT MOLECULAR DIAGNOSTICS (LDL) RESULTS Factor V 1691G>A ([place]) RESULTS: Mutation analyzed: 1691G>A Factor V 1691G>A ([place]) Interpretation: ABSENT Factor V 1691G>A ([place]) mutation genotype: G/G FACTOR 2/PROTHROMBIN RESULTS: Mutation analyzed: 83400D>A Factor 2 Mutation Interpretation: ABSENT Factor 2 [...] will interfere with test results. Call the [facility] ([phone]) for instructions on sample collection for these patients. 09/15/2023 3:05 PM CDT MOLECULAR DIAGNOSTICS (LDL) DISCLAIMER This test was developed and its performance characteristics determined by [facility]. It has not been cleared or [...] the interpretation(s) . 09/15/2023 3:05 PM CDT [facility]ST[facility] (LDL) FACTOR 2 INTERPRETATION Factor [...] 3:05 PM CDT 09/15/2023 3:09 PM CDT us Oleg Aparicio PA-C LAB - GENOMICS Final Result [facility] (LDL) [facility] [address] [facility], Room [address] * Protein S Antigen Free (09/15/2023 3:05 PM CDT) [facility] Protein S Antigen Free 63 55 - 125 % 09/16/2023 9:59 AM CDT SPECIAL COAGULATION Blood STRUCTURE OF RIGHT UPPER LIMB / Unknown Venipuncture / Unknown 09/15/2023 3:05 PM CDT 09/15/2023 3:09 PM CDT Oleg Aparicio PA-C LAB - BLOOD ORDERABLES Final R esult Performing Organization Address City/[facility]/ZIP Co de Phone Number SPECIAL COAGULATION [facility] Special Coagulation [address] [facility], [address] [phone] * Protein C chromogenic (09/15/2023 3:05 PM CDT) [facility] Protein C Chromogenic 103 70 - 170 % 09/16/2023 9:58 AM CDT SPECIAL COAGULATION Blood STRUCTURE OF RIGHT UPPER LIMB / Unknown Venipuncture / Unknown 09/15/2023 3:05 PM CDT 09/15/2023 3:09 PM CDT Oleg Aparicio PA-C LAB - BLOOD ORDERABLES Final R esult Performing Organization Address City/[facility] de Phone Number SPECIAL COAGULATION [facility] Special Coagulation [address] [facility], [address] [phone] * Chlamydia trachomatis/Neisseria gonorrhoeae by PCR (07/15/2023 6:23 PM CDT) [facility] Chlamydia Trachomatis Negative Negative 07/16/2023 12:02 PM CDT [facility] Comment: Negative for C. trachomatis rRNA by nursing administrator mediated amplification. A negative result by nursing administrator mediated amplification does not preclude the presence of infection because results are dependent on proper and adequate collection, absence of inhibitors and sufficient rRNA to be detected. Neisseria gonorrhoeae Negative Negative 07/16/2023 12:02 PM CDT [facility] Comment:Negative for N. gono rrhoeae rRNA by nursing administrator mediated amplification. A negative result by nursing administrator mediated amplification does not preclude the presence of C. trachomatis infection because results are dependent on proper and adequate collection, absence of inhibitors and sufficient rRNA to be detected. Urine VOIDED URINE SPECIMEN / Unknown Non-blood Collection / Unknown 07/15/2023 6:23 PM CDT 07/15/2023 6:30 PM CDT Moira Roa MD LAB - MICRO GENERAL ORDERABLES Final Result [facility] Inf. Diseases Diag. Lab [address] [facility], [address] [place] [address] * HIV-1 Antibody (External Result) (01/26/2023) HIV 1&2 Antibody (External) Negative Nonreactive EXTERNAL LAB Patient Reported LAB - HIM EXTERNAL RESULT Final Result EXTERNAL LAB External Lab from Last 3 Months or Most Recently Relevant to Health Maintenance Insurance [facility] [place] Advance Directives For more information, please contact: [phone] * Full Code (Latest Code Status on File) Date Activated Date Inactivated Comments 07/15/2023 7:25 PM 07/18/2023 1:55 PM All basic an d advanced life-sustaining interventions are performed as appropriate Question Answer Comments Code status determined by: Discussion with patie nt/ legal decision maker Care Teams Metal Model Builder Relationship Specialty Start Date End Date No Ref-Primary, Physician PCP - General 03/31/23 Oleg Aparicio, PABrightC [address] [place] [address] Assigned Cancer Care Provider 05/06/23 Ana Oreilly MD [address] [place] [address] Assigned OBGYN Provider 05/06/23
--- OUTSIDE RECORDS SUMMARY | 2023-12-15 15:03 | XMS_ITS | Referral Summary ---
Author Organization [place] Address [address] [facility] [address] Care Team Providers Care Title Closer Name Role Phone No Ref-Primary, Physician Primary Care Provider Oleg Aparicio PA-C Unavailable [phone] Ana Oreilly MD Unavailable [phone] Encounters Date Type Department Care Team Description 12/01/2023 3:00 PM CDT Lab [facility] Laboratory [address] [place] [phone] Antithrombin III deficiency (H) (Primary Dx) 12/01/2023 Telephone [facility] [address] [place] [address] Zachary Bean 11/24/2023 MyC Medical Advice [facility] [address] [place] [address] Zachary Bean 11/24/2023 Telephone [facility] [address] [place] [address] Zachary Bean 11/23/2023 Travel 11/23/2023 10:00 AM CDT Lab [facility] Laboratory [address] [facility] [address] [place] [phone] Antithrombin III deficiency (H) 11/21/2023 Telephone [facility] [address] [place] [address] Sandie White, RN 11/09/2023 MyC Medical Advice [facility] [address] [place] [address] Vikas Zachary 10/25/2023 11:00 AM CDT Virtual Visit [facility] [place] [address] [address] [place] [address] Oleg Aparicio PA-C Handler, Hillary, GC Antithrombin III deficiency (H) (Primary Dx) 10/21/2023 Telephone [facility] [address] [place] [address] [address] [place] [address] Oleg Aparicio PA-C 10/21/2023 Telephone [facility] [address] [address] Ron Hanley RN 10/20/2023 Travel 10/20/2023 9:00 AM CDT Lab [facility] [address] [facility] [address] [place] [address] Pulmonary embolism affecting in second trimester; Family history of blood clots; 31 weeks gestation of ; History of pulmonary embolism 10/18/2023 Telephone [facility] [address] [address] Sandie White RN 10/10/2023 Telephone [facility] [address] [address] Oleg Aparicio PA-C 09/22/2023 MyC Medical Advice [facility] [address] [place] [address] [address] [place] [address] Oleg Aparicio PA-C 09/19/2023 Telephone [facility] [address] [place] [address] [address] [place] [address] Oleg Aparicio PA-C 09/15/2023 Travel 09/15/2023 2:30 PM CDT Office Visit [facility] [address] [facility] [address] [place] [address] Oleg Aparicio PA-C History of pulmonary embolism (Primary Dx); Family history of blood clots from Last 3 Months Allergies No known active allergies Medications Vit-Fe Fumarate-FA ( VITAMIN PO) Take 1 tablet by mouth daily Active apixaban ANTICOAGULANT (ELIQUIS) 5 MG tabletIndications: History of pulmonary embolism,Family history of blood clots,Antithrombin III deficiency (H) Take 1 tablet (5 mg) by mouth 2 times daily. 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 Insurance preauthorization will be initiated. Contact lab with questions, . (Electronically signed by: Kely Winters December 06, 2023 2:03 PM) 12/06/2023 2:03 PM CDT [facility] (LDL) Blood STRUCTURE OF RIGHT UPPER LIMB / Unknown Venipuncture / Unknown 11/23/2023 10:06 AM CDT 11/23/2023 10:06 AM CDT Travis Mcdaniel MD LAB - GENOMICS Final Resu lt [facility] (LDL) [facility] [address] [facility], [address] * (ABNORMAL) Low Molecular Weight Heparin Anti Xa Level (10/20/2023 9:10 AM CDT) Anti Xa Low Molecular Weight >2.00(HH) For Reference Range, See Comment IU/mL 10/21/2023 8:17 AM CDT [facility] Blood BLOOD SPECIMEN / Unknown Venipuncture / Unknown 10/20/2023 9:10 AM CDT 10/20/2023 9:10 AM CDT Narrative [facility] - 10/21/2023 8:17 AM CDT If collected 4-6 hours after administration: Adults: If administered only once daily with a dose of 1.5 mg/k.0-2.0 IU/mL. If administered twice daily with a dose of 1 mg/k.50-1.0 IU/mL. Pediatrics: If administered twice daily: 0.50-1.0 IU/mL. Oleg Aparicio PA-C LAB - BLOOD ORDERABLES Final R esult Performing Organization Address City/[facility]/ZIP Co de Phone Number LABORATORY [facility] [address] [facility], [address] [phone] * (ABNORMAL) Antithrombin III (10/20/2023 9:10 AM CDT) Only the most recent of2 resultswithin the time period is included. [facility] Antithrombin III 54(L) 85 - 135 [...] AM CDT 10/20/2023 9:10 AM CDT Oleg OREILLY-C LAB - BLOOD ORDERABLES Final R esult SPECIAL COAGULATION [facility] Special Coagulation [address] [facility], Room [address] [place] [phone] * Factor 2 and 5 mutation analysis (09/15/2023 3:05 PM CDT) [facility] METHODOLOGY The regions of genomic DNA containing the F5 gene mutation R506Q(1691G>A) and the Factor 2 (Prothrombin [id number]) gene mutation were simultaneously amplified using the polymerase chain reaction. The amplified products were digested with restriction endonuclease TaqI and products were analyzed by gel electrophoresis. 09/15/2023 3:05 PM [facility] (LDL) RESULTS Factor V 1691G>A ([place]) RESULTS: Mutation analyzed: 1691G>A Factor V 1691G>A ([place]) Interpretation: ABSENT Factor V 1691G>A ([place]) mutation genotype: G/G FACTOR 2/PROTHROMBIN RESULTS: Mutation analyzed: 31139M>A Factor 2 Mutation Interpretation: ABSENT Factor 2 Mutation genotype: G/G 09/15/2023 3:05 PM [facility]LE[facility] DI[facility]NOST[facility] (LDL) INTERPRETATION The patient is negative for the Factor V 1691G>A ([place]) and negative for the Factor 2 mutation. (Electronically signed by: Antoine Bennett MD September 20, 2023 12:36 PM) 09/15/2023 3:05 PM [facility] MOLECULAR DIAGNOSTICS (LDL) COMMENTS If a patient is the recipient of an allogeneic bone marrow transplant, this test must be done on a pre-transplant sample or buccal swab. A previous allogeneic bone marrow transplant will interfere with test results. Call the [facility] ([phone]) for instructions on sample collection for these patients. 09/15/2023 3:05 PM [facility] (LDL) DISCLAIMER This test was developed and its performance characteristics determined by [facility]. It has not been cleared or [...] confirmed the interpretation(s) . 09/15/2023 3:05 PM [facility] MOLECULAR DIAGNOSTICS (LDL) FACTOR 2 INTERPRETATION Factor [...] CDT Oleg Aparicio PA-C LAB - GENOMICS Final Result MOLECULAR DIAGNOSTICS (LDL) [facility] [address] [facility], [address] * Protein S Antigen Free (09/15/2023 3:05 PM CDT) Protein S Antigen Free 63 55 - 125 % 09/16/2023 9:59 AM CDT SPECIAL COAGULATION Blood STRUCTURE OF RIGHT UPPER LIMB / Unknown Venipuncture / Unknown 09/15/2023 3:05 PM CDT 09/15/2023 3:09 PM CDT Oleg Aparicio PA-C LAB - BLOOD ORDERABLES Final R esult Performing Organization Address City/[facility]/ZIP Co de Phone Number [facility] SPECIAL COAGULATION [facility] Special Coagulation [address] [facility], [address] [phone] * Protein C chromogenic (09/15/2023 3:05 PM CDT) Protein C Chromogenic 103 70 - 170 % 09/16/2023 9:58 AM CDT SPECIAL COAGULATION Blood STRUCTURE OF RIGHT UPPER LIMB / Unknown Venipuncture / Unknown 09/15/2023 3:05 PM CDT 09/15/2023 3:09 PM CDT Oleg DUMONTC LAB - BLOOD ORDERABLES Final R esult UM SPECIAL COAGULATION [facility] [address] [facility], [address] [place] [address], [facility] * Chlamydia trachomatis/Neisseria gonorrhoeae by PCR (07/15/2023 6:23 PM CDT) Chlamydia Trachomatis Negative Negative 07/16/2023 12:02 PM CDT [facility] Comment: Negative for C. trachomatis rRNA by court bailiff mediated amplification. A negative result by court bailiff mediated amplification does not preclude the presence of infection because results are dependent on proper and adequate collection, absence of inhibitors and sufficient rRNA to be detected. Neisseria gonorrhoeae Negative Negative 07/16/2023 12:02 PM CDT [facility] Comment:Negative for N. gono rrhoeae rRNA by court bailiff mediated amplification. A negative result by court bailiff mediated amplification does not preclude the presence of C. trachomatis infection because results are dependent on proper and adequate collection, absence of inhibitors and sufficient rRNA to be detected. Urine VOIDED URINE SPECIMEN / Unknown Non-blood Collection / Unknown 07/15/2023 6:23 PM CDT 07/15/2023 6:30 PM CDT Moira Roa MD LAB - MICRO GENERAL ORDERABLES Final Result [facility] Inf. Diseases Diag. Lab [address] [facility], [address] [place] [address], [facility] * HIV-1 Antibody (External Result) (01/26/2023) HIV 1&2 Antibody (External) Negative Nonreactive EXTERNAL LAB us Patient Reported LAB - HIM EXTERNAL RESULT Final Result EXTERNAL LAB External Lab from Last 3 Months or Most Recently Relevant to Health Maintenance Insurance [place] [facility] Advance Directives For more information, please contact: [phone] * Full Code (Latest Code Status on File) Date Activated Date Inactivated Comments 07/15/2023 7:25 PM 07/18/2023 1:55 PM All basic an d advanced life-sustaining interventions are performed as appropriate Question Answer Comments Code status determined by: Discussion with patie nt/ legal decision maker Care Teams Title Closer Relationship Specialty Start Date End Date No Ref-Primary, Physician PCP - General 03/31/23 Oleg Aparicio, JULIAC [address] [facility] [address] [place] [address] Assigned Cancer Care Provider 05/06/23 Ana Oreilly MD [address] [facility] [address] [place] [address] Assigned OBGYN Provider 05/06/23
--- OUTSIDE RECORDS SUMMARY | 2023-12-15 15:03 | XMS_ITS | Encounter Summary ---
Author Organization [place] Address [address] [facility] [place] [address] Care Team Providers Care Background Check Coordinator Name Role Phone No Ref-Primary, Physician Primary Care Provider Oleg Aparicio PA-C Unavailable [phone] Ana Oreilly MD Unavailable [phone] Reason for Visit * Genomics (Routine) - Closed Specialty Diagnoses / Procedures Referred By Contac t Referred To Contact Diagnoses Antithrombin III deficiency (H) Procedures [facility] Hold For Preauthorization: Travis Mcdaniel MD [address] [facility] [address] [place] [address] Phone: tel: fax: Referral ID Status Reason Start Date Expiration Date Visits Re quested Visits Authorized [id number] Closed 10/25/2023 10/24/2024 1 1 Encounter Details Date Type Department Care Team (Late st Contact Info) Description 11/23/2023 10:[address] 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, [address] documented in this encounter Visit Diagnoses Diagnosis Antithrombin III deficiency (H) Primary hypercoagulable state documented in this encounter Care Teams Background Check Coordinator Relationship Specialty Start Date End Date No Ref-Primary, Physician PCP - General 03/31/23 Oleg Aparicio PABrightC [address] [place], [place] [address] Assigned Cancer Care Provider 05/06/23 Ana Oreilly MD [address] [place] [address] Assigned OBGYN Provider 05/06/23 documented as of this encounter
--- OUTSIDE RECORDS SUMMARY | 2023-12-15 15:03 | XMS_ITS | Encounter Summary ---
Author Organization [place] Address [address] [place] [address]. 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 Of note, Gabrielle spoke with Oleg Aparicio PA-C on 09/14 regarding previous Anithrombin III testing. He recommended she check another Antithrombin III level in one month (order in place). RN assisted her in scheduling a lab visit tomorrow afternoon. Sandie White RN, BSN, PCCN Nurse Clinician [facility] [address] [place] [address] [address] [address] Office, direct: [phone] Main office number: [phone] Pronouns: She, her, hers documented in this encounter Plan of Treatment Not on file documented as of this encounter Visit Diagnoses Not on filedocumented in this encounter Care Teams Ironer Or Presser Relationship Specialty Start Date End Date No Ref-Primary, Physician PCP - General 03/31/23 Oleg Aparicio PA-C [facility] [address] [place], [place] [address] Assigned Cancer Care Provider 05/06/23 Ana Oreilly MD [address] [address] Assigned OBGYN Provider 05/06/23 documented as of this encounter
--- OUTSIDE RECORDS SUMMARY | 2023-12-15 15:03 | XMS_ITS | Encounter Summary ---
Author Organization [place] Address [address] 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
--- OUTSIDE RECORDS SUMMARY | 2023-12-15 15:03 | XMS_ITS | Encounter Summary ---
Author Organization [place] Address [address] [place] [address] Care Team Providers Care Tool Design Drafter Name Role Phone No Ref-Primary, Physician Primary Care Provider Oleg Aparicio PA-C Unavailable [phone] Ana Oreilly MD Unavailable [phone] Encounter Details Date Type Department Care Team (Late st Contact Info) Description 10/20/2023 9:00 AM CDT Lab [facility] Laboratory [address] [facility] [address] [place] [address] Pulmonary embolism affecting in second [...] on file Legal Sex Female 8:39 AM [employer] Gender Identity Not on file Sexual [...] UM SPECIAL COAGULATION [facility] Special Coagulation [address] [facility], [address] [phone] * (ABNORMAL) Low Molecular Weight Heparin Anti [...] LAB - BLOOD ORDERABLES Final R esult [facility] [place] [facility] [address] [facility], [address] [place] [address], [facility] documented in this encounter Visit Diagnoses Diagnosis Pulmonary embolism affecting in second trimester Family history of blood clots Family history of other blood disorders 31 weeks gestation of state, incidental History of pulmonary embolism Personal history of pulmonary embolism documented in this encounter Care Teams Tool Design Drafter Relationship Specialty Start Date End Date No Ref-Primary, Physician PCP - General 03/31/23 Oleg Aparicio PA-C [address] [place] [address] Assigned Cancer Care Provider 05/06/23 Ana Oreilly MD [address] [place] [address] [place] [address] Assigned OBGYN Provider 05/06/23 documented as of this encounter
--- OUTSIDE RECORDS SUMMARY | 2023-12-15 15:03 | XMS_ITS | Continuity of Care Document ---
Author Organization [facility] Address [address] [place] [address] Phone Care Team Providers Care Education Professional Name Role Phone Moira Roa MD Unavailable [...] Marilyn [facility]ILL[facility], [address], [place], [place], [id number] , [place] tel: [phone] [facility] No Information 4 Crispin Pizarro. [address], [place], [address], [place]. tel: [phone] Subsequent Hospital Care MDM Straightforward Or LOW 25 MIN [facility], [address], [place], [place], [id number] , [place] tel: [phone] [facility] IP No Information 4 Soledad Valentin. [address], [place], [address], [place]. tel: [phone] Initial Hospital Inpatient Or Observation Moderate MDM 55min [facility], [address], [place], [place], [id number] , [place] tel: [phone] [facility] IP labor without delivery, third trimesterPersona l history of pre-term laborInfection of other part of genital tract in , third trimesterPersona l history of pulmonary [id number] weeks gestation of pregnancyStrepto coccus B carrier state complicating [id number] weeks gestation of 4 [facility]. [address], [facility], [address], [place]. tel:[phone] Family History Family Member Type Diagnosis Age [...]
--- OUTSIDE RECORDS SUMMARY | 2023-12-15 15:03 | XMS_ITS | Encounter Summary ---
Author Organization [place] Address [address] [facility] 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 We had received her blood draw after she had contacted the clinic and the patient also viewed my [employer] message, but we received no response from [...] further questions. [facility] Hold For Preauthorization: [[id number]] order was placed by a genetics provider. Zachary Bean Genomics Billing Consolidation Accountant [facility] Molecular Diagnostics Laboratory [facility] [address] [facility] [place] [address] [email or web address] Office: [phone] Fax: Employed by [employer] documented in this encounter Plan of Treatment Not on file documented as of this encounter Visit Diagnoses Not on filedocumented in this encounter Care Teams Quality Assurance Manager Relationship Specialty Start Date End Date No Ref-Primary, Physician PCP - General 03/31/23 Oleg Aparicio, PA-C [address] [place], [place] [address] Assigned Cancer Care Provider 05/06/23 Ana Oreilly MD [address] [place], [place] [phone] Assigned OBGYN Provider 05/06/23 documented as of this encounter
--- OUTSIDE RECORDS SUMMARY | 2023-12-15 15:03 | XMS_ITS | Encounter Summary ---
Author Organization [place] Address [address] 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 1) She has not heard back from genetic testing billing department. I directed her to the [employer] message from 11/08 and advised that she [...] about trying another medication. Ron WEBER RN [facility] for Bleeding and Clotting Disorders Office: [phone] Clinic: [phone] * Telephone Encounter - Sandie White RN - 11/21/2023 9:16 AM CDT [id number] Gabrielle Mcmahon 28 year old female CBCD Diagnosis: PE CBCD Provider: Oleg Aparicio PA-C Gabrielle had a question regarding blood draw and Eliquis. She can be reached at [phone] RN will route to RNMIKE Hanley. Sandie White RN, BSN, PCCN Nurse Clinician [facility] for Bleeding [facility] Clotting Disorders [address] [place] [address] Office, direct: [phone] Main office number: [phone] Pronouns: She, her, hers documented in this encounter Plan of Treatment Not on file documented as of this encounter Visit Diagnoses Not on filedocumented in this encounter Care Teams Food Packer Relationship Specialty Start Date End Date No Ref-Primary, Physician PCP - General 03/31/23 Oleg Aparicio PA-C [address] [place] [address] Assigned Cancer Care Provider 05/06/23 Ana Oreilly MD [address] [address] [place] [address] Assigned OBGYN Provider 05/06/23 documented as of this encounter
--- OUTSIDE RECORDS SUMMARY | 2023-12-15 15:03 | XMS_ITS | Encounter Summary ---
Author Organization [place] Address [address] [facility] 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
--- OUTSIDE RECORDS SUMMARY | 2023-12-15 15:04 | XMS_ITS ---
Author Organization [facility] Address [address] [place] [address] Care Team Providers Care Tax Compliance Agent Name Role Phone Unavailable Unavailable Unavailable Surgery Details Not on file Complications Check Surgery Details section. Procedure Estimated Blood Loss Check Surgery Details section. Procedure Findings Check Surgery Details section. Procedure Specimens Taken Check Surgery Details section.
--- OUTSIDE RECORDS SUMMARY | 2023-12-15 15:04 | XMS_ITS | Clinical Summary ---
Author Organization [facility] Address [address] [place] [address] Care Team Providers Care Coating Operator Name Role Phone Elsewhere, Pcp Primary Care Provider Unavailabl e Source Comments Patient records contain information from all sites at [facility]. For routine questions regarding patient records, call [phone] during business hours, M-F 8:00 AM - 5:00 PM Central Time. Record requests for emergency care only can be directed to [phone] at any time.[facility] Allergies No known active allergies Medications * This document contains information received from the source organization and may not represent a complete record from that organization. [id number]- FA (VINATE ONE) 60 mg iron-1 mg [...] any clubs o r organizations such as caodaism groups, unions, fraternal or athletic groups, or [...] and heating? Not hard at all 02/21/2022 [facility] [place] of Occupat ional Health - Occupational Stress [...] now)? No 02/21/2022 Nutrition Answer Date Recorded On average, how many serving s of [...] Sex Assigned at Female 02/21/2022 11:00 AM POLICE ACADEMY INSTRUCTOR Legal Sex Female 8:55 AM CDT Gender Identity Female 02/21/2022 11:00 AM POLICE ACADEMY INSTRUCTOR Sexual Orientation Straight 02/21/2022 11 :00 AM POLICE ACADEMY INSTRUCTOR Last Filed Vital Signs Vital Sign Reading Time Taken Comments Blood Pressure - - Pulse - - Temperature 36.6 ??C (97.9 ??F) 02/24/2022 12:[address] Respiratory Rate - - Oxygen Saturation - - Inhaled Oxygen Concentration - - Weight 72.4 kg (159 lb 9.8 oz) 02/24/2022 12:38 PM POLICE ACADEMY INSTRUCTOR Height 169.7 cm (5' 6.81) 02/24/2022 12:[address] Body Mass Index 25.14 02/24/2022 12:38 PM POLICE ACADEMY INSTRUCTOR Plan of Treatment Health Maintenance Due Date Last Done Comments HIV Screening 1995 Hepatitis C Screening 1995 HPV Vaccines (1 - 3-dose series) 2012 Hepatitis B Vaccines (1 of 3 - 19+ 3-dose series) 2016 Depression Screening (Annual PHQ-2) 02/21/2023 COVID-19 Vaccine ( - 2023-2 5 season) 2023 Influenza Vaccine (#1) 2023 01/25/2022 Cervical Cancer Screening 10/04/2026 10/05/2023 DTaP,Tdap,and Td Vaccines (2 - Td or Tdap) 06/22/2033 06/23/2023 Pneumococcal vaccine (0-64 years) Aged Out No longer eligible based on patient's age to complete this topic Insurance [facility] Care Teams Coating Operator Relationship Specialty Start Date End Date Elsewhere, Pcp PCP - General Internal Medicine 02/24/22
--- OUTSIDE RECORDS SUMMARY | 2023-12-15 15:04 | XMS_ITS | Encounter Summary ---
Author Organization [place] Address [address] [place] [address]. [place] [address] Care Team Providers Care Bundle Helper Name Role Phone No Ref-Primary, Physician Primary Care Provider Oleg Aparicio PA-C Unavailable [phone] Ana Oreilly MD Unavailable [phone] Encounter Details Date Type Department Care Team (Late st Contact Info) Description 09/22/2023 [facility] Medical Advice [facility] for Ble[facility] Clot[facility] Disorders 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 Gender Identity Not on file Sexual Orientation Not on file documented as of this encounter Plan of Treatment Not on file documented as of this encounter Visit Diagnoses Not on filedocumented in this encounter Care Teams Bundle Helper Relationship Specialty Start Date End Date No Ref-Primary, Physician PCP - General 03/31/23 Oleg Aparicio PA-C [address] [place] [address] [address] [place], [place] [address] Assigned Cancer Care Provider 05/06/23 Ana Oreilly MD [address] [facility] [address] [place] [address] Assigned OBGYN Provider 05/06/23 documented as of this encounter
--- OUTSIDE RECORDS SUMMARY | 2023-12-15 15:04 | XMS_ITS | Encounter Summary ---
Author Organization [place] Address [address] [facility] [place] [address] Care Team Providers Care Stripping Machine Operator Name Role Phone No Ref-Primary, Physician Primary Care Provider Oleg Aparicio PA-C Unavailable [phone] Ana Oreilly MD Unavailable [phone] Reason for Referral * Genomics (Routine) - Authorized Specialty Diagnoses / Procedures Referred By Contac t Referred To Contact Diagnoses History of pulmonary embolism Family history of blood clots Procedures Factor 2 and 5 mutation analysis Oleg Aparicio PA-C [address] [place] [address] [address] [place] [address] Phone: tel: fax: Referral ID Status Reason Start Date Expiration Date V isits Requested Visits Authorized [id number] Authorized 09/15/2023 09/14/2024 1 1 Reason for Visit * Reason Comments CLOTTING Encounter Details Date Type Department Care Team (Late st Contact Info) Description 09/15/2023 2:30 PM CDT Office Visit [facility] for Bleeding and Clotting Disorders [address] [place] [address] [address] [place] [address] Oleg Aparicio PA-C [address] [facility] [address] [place] [address] History of pulmonary embolism (Primary [...] on file 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 [facility] [address] [place] [address] Main: [phone], Patient seen at: [facility] at [address] [place] [address] Outpatient Visit Note: Patient: Gabrielle Mcmahon : 1995 DEBORAH: September 15, 2023 Location of this development writer at the time of this clinic visit was conducted: [facility], Center for Ble[facility] Clotting Disorders. Location of the patient at the time of this clinic visit was conducted: [facility] for Bleeding and Clotting [...] up. She was last seen by this development writer back on 07/04/2023 Thrombosis History Summary: Found [...] around 14 weeks gestation), she presented to [facility] emergency department with chest pain. [...] today, the emergency department physician abi Seym[facility] and consult them about the [...] brain. 04/28/2023, she established care with this development writer and I determined that her pulmonary [...] History: 08/09/2023, she delivered her baby at [place]. She reports that it was an induction [...] 1 month post follow up with this development writer for which it is my plan to [...] and PmHx: All are reviewed by this development writer today via electronic medical records Social [...] is my recommendation and is also current [place] Society of Hematology (JHON) guidelines to be [...] today's testing. Oleg Aparicio PA-C, MPAS Physician Abalone Processor [facility] for Bleeding and Clotting Disorders. [...] 5 mutation analysis (09/15/2023 3:05 PM CDT) [facility] METHODOLOGY The regions of genomic DNA containing the F5 gene mutation R506Q(1691G>A) and the Factor 2 (Prothrombin [id number]) gene mutation were simultaneously amplified using the polymerase chain reaction. The amplified products were digested with restriction endonuclease TaqI and products were analyzed by gel electrophoresis. 09/15/2023 3:05 PM CDT [facility] (LDL) RESULTS Factor V 1691G>A ([place]) RESULTS: Mutation analyzed: 1691G>A Factor V 1691G>A ([place]) Interpretation: ABSENT Factor V 1691G>A ([place]) mutation genotype: G/G FACTOR 2/PROTHROMBIN RESULTS: Mutation analyzed: 47407S>A Factor 2 Mutation Interpretation: ABSENT Factor 2 [...] will interfere with test results. Call the [facility] ([phone]) for instructions on sample collection for these patients. 09/15/2023 3:05 PM CDT [facility] (LDL) DISCLAIMER This test was developed and its performance characteristics determined by [facility]. It has not been cleared or [...] Aparicio PA-C LAB - GENOMICS Final Result Performing Organization Address City/[facility]/ZIP Co de Phone Number MOLECULAR DIAGNOSTICS (LDL) [facility] [address] [facility] [address] Building, Room [address] [id number] * Protein S Antigen Free (09/15/2023 3:05 PM CDT) Protein S Antigen Free 63 55 - 125 % 09/16/2023 9:59 AM CDT [facility] Blood STRUCTURE OF RIGHT UPPER LIMB / Unknown Venipuncture / Unknown 09/15/2023 3:05 PM CDT 09/15/2023 3:09 PM CDT Oleg Aparicio PA-C LAB - BLOOD ORDERABLES Final R esult Performing Organization Address [facility] Co de Phone Number SPECIAL COAGULATION [facility] [address] [facility], Room [address] [phone] * Protein C chromogenic (09/15/2023 3:05 PM CDT) Protein C Chromogenic 103 70 - 170 % 09/16/2023 9:58 AM CDT SPECIAL COAG[facility]ATION Blood STRUCTURE OF RIGHT UPPER LIMB / Unknown Venipuncture / Unknown 09/15/2023 3:05 PM CDT 09/15/2023 3:09 PM CDT Oleg Aparicio PA-C LAB - BLOOD ORDERABLES Final R esult Performing Organization Address City/[facility]/ZIP Co de Phone Number [facility] [address] [facility] Building, Room [address] [address] * (ABNORMAL) Antithrombin III (09/15/2023 3:05 PM CDT) Antithrombin III 51(L) 85 - 135 % 09/16/2023 9:58 AM CDT SPECIAL COAGULATION Comment: This patient [...] SPECIAL COAGULATION [facility] [address] [facility], [address] [place] [address], [facility] documented in this encounter Visit Diagnoses Diagnosis History of pulmonary embolism- Primary Personal history of pulmonary embolism Family history of blood clots Family history of other blood disorders documented in this encounter Care Teams Stripping Machine Operator Relationship Specialty Start Date End Date No Ref-Primary, Physician PCP - General 03/31/23 Oleg Aparicio PA-C [address] [place], [place] [address] Assigned Cancer Care Provider 05/06/23 Ana Oreilly MD [address] [place], [place] [address] Assigned OBGYN Provider 05/06/23 documented as of this encounter
--- OUTSIDE RECORDS SUMMARY | 2023-12-15 15:04 | XMS_ITS | Encounter Summary ---
Author Organization [place] Address [address] [place] [address]. [place] [address] Care Team Providers Care Clinical Molecular Geneticist Name Role Phone No Ref-Primary, Physician Primary Care Provider Oleg Aparicio PA-C Unavailable [phone] Ana Oreilly MD Unavailable [phone] Encounter Details Date Type Department Care Team ([facility] st Contact Info) Description 10/10/[address] [facility] for Bleeding and Clotting Disorders [address] 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 [facility] for Ble[facility] Clot[facility] [address], [address], [place] [address] Main: [phone], Telephone Note: Patient: Gabrielle Mcmahon : 1995 Date of this note written: October 10, 2023 Patient is currently on rivaroxaban at 20 mg PO Qday. She is calling reporting that her menstrual bleeding last week was rather heavy with her changing her pads and tampons every hour for 1.5 days. She reports that her hemoglobin done at her [facility] follow up appointment on 10/07/2023 was 12.6. [...] anticoagulation therapy. Oleg Aparicio PA-C, MPAS Physician Machine Joiner Cementer [facility] for Bleeding and Clotting Disorders. documented in this encounter Plan of Treatment Not on file documented as of this encounter Visit Diagnoses Not on filedocumented in this encounter Care Teams Clinical Molecular Geneticist Relationship Specialty Start Date End Date No Ref-Primary, Physician PCP - General 03/31/23 Oleg Aparicio PA-C [address] [place] [address] [address] [place] [address] Assigned Cancer Care Provider 05/06/23 Ana Oreilly MD [address] [facility] [address] [place] [address] Assigned OBGYN Provider 05/06/23 documented as of this encounter
--- OUTSIDE RECORDS SUMMARY | 2023-12-15 15:04 | XMS_ITS | Referral Summary ---
Author Organization [facility] Address [address] [place] [address] Care Team Providers Care Button Attaching Machine Operator Name Role Phone Elsewhere, Pcp Primary Care Provider Unavailabl e Source Comments Patient records contain information from all sites at [facility]. For routine questions regarding patient records, call [phone] during business hours, M-F 8:00 AM - 5:00 PM Central Time. Record requests for emergency care only can be directed to [phone] at any time.[facility] Allergies No known active allergies Medications * This document contains information received from the source organization and may not represent a complete record from that organization. [id number]- FA (VINATE ONE) 60 mg iron-1 mg [...] often do you attend chur ch or episcopal services? More than 4 times per year [...] Sex Assigned at Female 02/21/2022 11:00 AM SYSTEMS MANAGEMENT CONSULTANT Legal Sex Female 8:55 AM CDT Gender Identity Female 02/21/2022 11:00 AM SYSTEMS MANAGEMENT CONSULTANT Sexual Orientation Straight 02/21/2022 11 :00 AM SYSTEMS MANAGEMENT CONSULTANT Last Filed Vital Signs Vital Sign Reading Time Taken Comments Blood Pressure - - Pulse - - Temperature 36.6 ??C (97.9 ??F) 02/24/2022 12:[address] Respiratory Rate - - Oxygen Saturation - - Inhaled Oxygen Concentration - - Weight 72.4 kg (159 lb 9.8 oz) 02/24/2022 12:38 PM SYSTEMS MANAGEMENT CONSULTANT Height 169.7 cm (5' 6.81) 02/24/2022 12:[address] Body Mass Index 25.14 02/24/2022 12:38 PM SYSTEMS MANAGEMENT CONSULTANT Plan of Treatment Not on file Insurance [facility] Care Teams Button Attaching Machine Operator Relationship Specialty Start Date End Date Elsewhere, Pcp PCP - General Internal Medicine 02/24/22
--- OUTSIDE RECORDS SUMMARY | 2023-12-15 15:04 | XMS_ITS | Clinical Summary ---
Author Organization [facility] Address [place], [place] [address] Care Team Providers Care Wet Wash Assembler Name Role Phone Marybeth Andrew MD Primary Care Provider + Allergies No known active allergies Medications No known medications Encounters Date Type Department Care Team Description 10/06/[address] [facility] [phone] Jasmin Barrow MD from Last 3 Months [...] EVENT Routine 10/05/2023 2: 41 PM CDT TEMPERATURE REGULATOR PYROMETER THIN PREP PAP SCREEN IMAGED Routine 10/05/2023 12:00 PM CDT HPV HIGH RISK Routine 10/05/2023 12:00 PM CDT from Last 3 Months Results * LAB TRACKING EVENT (10/05/2023 2:41 PM CDT) Other (Other) Client Collect / Unknown 10/05/2023 2:41 PM CDT 10/06/2023 5:33 PM CDT Jasmin Barrow MD LAB BILL O NLY [facility] [address] [place] [address], * TEMPERATURE REGULATOR PYROMETER THIN PREP PAP SCREEN IMAGED (10/05/2023 12:00 PM CDT) Case Report Gynecologic Cytology Report ? Case: [id number] ? Authorizing Provider: ??Jasmin Barrow ??Collected: ? 10/05/2023 1200 ? MD Daja ? Ordering Location: ? [facility] ?Received: ?10/07/2023 0851 ? First Screen: ?Leatha Boyd ? Specimen: ?TEMPERATURE REGULATOR PYROMETER ThinPrep Vial Screening, Cervical ? 10/13/2023 1:59 PM CDT [facility] [employer] [facility] INTERPRETATION/ RESULT NEGATIVE FOR INTRAEPITHELIAL LESION OR MALIGNANCY (NIL) (none) 10/13/2023 1:[address] [facility] IMEN ADEQUACY Satisfactory for evaluation Endocervical component present Scant cellularity 10/13/2023 1:59 PM CDT [facility] HPV REQUEST HPV and PAP 10/13/2023 1:59 PM CDT [facility] Last Pap Date 12/11/2020 10/13/2023 1:59 PM CDT [facility] Last Pap Result NIL 1:59 PM CDT [facility] Abnormal Pap or Lyndora Bx in last 5 years No 10/13/2023 1:59 PM CDT [facility] Menstrual Status 10/13/2023 1:59 PM CDT [facility] Lyndora Bx Done Today No 10/13/2023 1:[address] [facility] Additional Information 10/13/2023 1:[address] [facility] Comment: Interpreted at [facility] - [address] [place] [address] Automated Review Successful 10/13/2023 1:59 PM CDT [facility] Comment:Specimen processed s uccessfully by automated banking analyst device, ThinPrep Imaging System, [employer] ANCILLARY TESTING TEMPERATURE REGULATOR PYROMETER HPV Ordered, Please see separate report 10/13/2023 1:[address] [facility] Note The pap test is a [...] and malignant lesions. 10/13/2023 1:[address] [facility] Other (Cervical) 10/05/2023 12:00 PM CDT 10/07/2023 8:51 AM CDT Jasmin Barrow MD PATHOLOGY/ CYTOLOGY [facility] [address] [place] [address], * HPV HIGH RISK (10/05/2023 12:00 PM CDT) TYPE 16 Negative Negative 10/11/2023 2:17 PM CDT [facility] TYPE 18 Negative Negative 10/11/2023 2:17 PM CDT [facility] OTHER HIGH RISK TYPES Negative Negative 10/11/2023 2:17 PM CDT [facility] Other (Cervical) 10/05/2023 12:00 PM CDT 10/07/2023 8:51 AM CDT Narrative [facility] - 10/11/2023 2:17 PM CDT HPV types 16, 18, 31, 33, 35, 39, 45, 51, 52, 56, 58, 59, 66 and 68 DNA were undetectable or below the pre-set threshold. Methodology: Kendrick Lulu 4800 HPV Test Jasmin Barrow MD MICROBIOLO GY [facility] [address] [place] [address], from Last 3 Months Care Teams Wet Wash Assembler Relationship Specialty Start Date End Date Marybeth Andrew MD [address] [place] [address] PCP - General Family Practice 08/20/22
--- OUTSIDE RECORDS SUMMARY | 2023-12-15 15:04 | XMS_ITS | Encounter Summary ---
Author Organization [facility] Address [address] [place] [address]. [place] [address] Care Team Providers Care Licensed Insurance Sales Agent Name Role Phone No Ref-Primary, Physician Primary Care Provider Oleg Aparicio PA-C Unavailable [phone] Ana Oreilly MD Unavailable [phone] Encounter Details Date Type Department Care Team ([facility] Contact Info) Description 04/28/2023 [facility] [address] [place] [address] Carmen Pollack RN 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 Tobacco Use Types Packs/Day Years Used Date Smoking Tobacco: Never Assessed Adolescent Education Answer Date Record ed Getting School Help Needed Not on file 11/13 Comments Yes Sex and Gender Information Value Date Recorded Sex Assigned at Not on file Legal Sex Female 8:39 AM 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
--- OUTSIDE RECORDS SUMMARY | 2023-12-15 15:04 | XMS_ITS | Encounter Summary ---
Author Organization [facility] Address [address] [place] [address]. [place] [address] Care Team Providers Care Music Therapy Teacher Name Role Phone No Ref-Primary, Physician Primary Care Provider Oleg Aparicio PA-C Unavailable [phone] Ana Oreilly MD Unavailable [phone] Encounter Details Date Type Department Care Team (Late st Contact Info) Description 09/19/2023 Telephone [facility] [address] [facility] [address] [place] [address] Oleg Aparicio PA-C [address] [facility] [address] [place] [address] 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 Tobacco Use Types [...] on file Legal Sex Female 8:39 AM VISUAL DESIGN LEAD Gender Identity Not on file Sexual Orientation Not on file documented as of this encounter Miscellaneous Notes * Telephone Encounter - Oleg Aparicio PA-C - 09/19/2023 9:55 AM CDT Images from the original note were not included. [facility] [address] [place] [address], [address], [place] [address] Main: [phone], Patient: Gabrielle Mcmahon : 1995 Date of this note written: September 19, 2023 This news writer spoke with the patient on 09/19/2023 [...] % 63 Oleg Aparicio PA-C, MPAS Physician Drive In Teller [facility]. documented [...] [facility] [address] [facility] [address] [facility], [address] [address] documented in this encounter Visit Diagnoses Diagnosis History of pulmonary embolism- Primary Personal history of pulmonary embolism Family history of blood clots Family history of other blood disorders Pulmonary embolism affecting in second trimester documented in this encounter Care Teams Music Therapy Teacher Relationship Specialty Start Date End Date No Ref-Primary, Physician PCP - General 03/31/23 Oleg Aparicio PA-C [address] [place], [place] [address] Assigned Cancer Care Provider 05/06/23 Ana Oreilly MD [address] [place] [address] Assigned OBGYN Provider 05/06/23 documented as of this encounter
--- OUTSIDE RECORDS SUMMARY | 2023-12-15 15:04 | XMS_ITS | Encounter Summary ---
Author Organization [facility] Address [address] [facility] [place] [address] Care Team Providers Care Range Technician Name Role Phone No Ref-Primary, Physician Primary Care Provider Oleg Aparicio PA-C Unavailable [phone] Ana Oreilly MD Unavailable [phone] Encounter Details Date Type Department Care [...] on file Legal Sex Female 8:39 AM CHART COMPUTER Gender Identity Not on file Sexual Orientation Not on file documented as of this encounter Plan of Treatment Not on file documented as of this encounter Visit Diagnoses Not on filedocumented in this encounter Care Teams Range Technician Relationship Specialty Start Date End Date No Ref-Primary, Physician PCP - General 03/31/23 Oleg Aparicio PA-C [address] [place] [address] Assigned Cancer Care Provider 05/06/23 Ana Oreilly MD [address] [place] [address] [address] [place] [address] Assigned OBGYN Provider 05/06/23 documented as of this encounter
--- NOTE | 2023-12-15 15:30 | MR_ITS ---
[facility] [address] [facility] [address] Phone:?[phone] Fax:?[phone] Referring Physician Information: Timothy Avila M.D. [address] [facility] [address] Phone:?[phone] Fax:?[phone] Patient:Robby Mcmahon D.O.B:?1995 Sex:?Female Phone:?[phone] [facility] MRN:?[id number] Exam Date:?12/15/2023 EXAM: MRI of the RIGHT FOOT MIDFOOT THROUGH FOREFOOT CLINICAL HISTORY: Ongoing right foot pain. Evaluate for sesamoid fracture. COMPARISONS: Plain radiographs 11/24/2023. TECHNICAL: MR sequences of the right foot midfoot through forefoot: Axials: PD, STIR Coronals: T1, STIR Sagittals: PD, STIR, T2 Contrast: None Sedation: None FINDINGS: Osseous structures and joints: Edema-like signal within the tibial hallux sesamoid may reflect bone marrow edema secondary to a nondisplaced fracture or osseous stress reaction/sesamoiditis secondary to repetitive microtrauma of a bipartite tibial sesamoid. No metatarsal fracture or osseous stress injury is seen. There is no subluxation, dislocation, or erosive change. Ligaments: The Lisfranc and collateral ligaments are intact. Myotendinous structures: The imaged portions of the extensor and flexor tendons are unremarkable. No muscle strain, tear, or atrophy is present. Soft tissues: No convincing evidence of intermetatarsal Johnson neuroma, pathologic intermetatarsal bursitis, or ganglion. IMPRESSION: 1. Edema-like signal within the tibial hallux sesamoid may reflect bone marrow edema secondary to a nondisplaced fracture or osseous stress reaction/sesamoiditis secondary to repetitive microtrauma of a bipartite tibial sesamoid. Nondisplaced fracture is favored. 2. Otherwise, unremarkable MRI of the imaged portions of the right foot without edematous or tendinous pathology. RCB Electronically signed on 12/16/2023 9:00:00 AM by Toño Jacome M.D.
== END 2023-12-15 15:02 | disposition home or self-care (01) ==
LOC: MRI 15:01
PROVIDERS: PCP Nurse Practitioner Family; Visit Provider Orthopaedic Surgery
DX: M79.671 Pain in right foot (principal); R60.0 Localized edema
CPT/HCPCS: 73718

== ENCOUNTER 2024-01-31 21:25 | Emergency (ER) | payer BC, SELFPAY ==
[2024-01-31 21:34] VITALS: BP 123/82; PULSE 93; RESP 16; TEMP 36.6; O2SAT 98; BMI 24.7
--- NOTE | 2024-01-31 21:47 | ED_ITS ---
HPI - Syncope General Time Seen by Provider: 21:48 Date Seen: 01/31/24 Chief Complaint: Syncope/Fainted Stated Complaint: Possibly passed out/lost time Time Seen by Provider: 01/31/24 21:47 Source: patient, RN notes reviewed and old records reviewed Mode of arrival: ambulatory Limitations: no limitations History of Present Illness HPI narrative: 28-year-old female who comes in today with episode of ?lost time. ? Patient was playing on the floor 3rd daughter, woke up on the floor. She denies new chest pain, palpitations, shortness of breath, nausea, vomiting. She notes she has had some abdominal cramping and headache which has been ongoing concerns and are unchanged today. Also reports that she currently has bronchitis. Denies new medications, fall or injury, episodes of lightheadedness today. Says she has been very tired recently and admits she may have just fallen asleep on the floor. Related Data Home Medications ?Medication ?Instructions ?Recorded ?Confirmed apixaban 5 mg tablet (Eliquis) 5 mg PO BID 11/24/23 01/25/24 Previous Rx's ?Medication ?Instructions ?Recorded hydrocortisone 2.5 % topical cream 1 applic NJ BID-QID PRN 01/26/23 with perineal applicator hemorrhoids #30 grams (Anusol-HC) benzonatate 200 mg capsule 200 mg PO TID PRN cough #30 caps 01/16/24 budesonide-formoterol HFA 160 2 puff inhalation BID #10.2 grams 01/16/24 mcg-4.5 mcg/actuation aerosol inhaler (Symbicort) albuterol sulfate 90 mcg/actuation 2 puff inhalation Q4-6H PRN 01/25/24 aerosol inhaler shortness of breath or wheezing #6.7 grams Allergies Allergy/AdvReac Type Severity Reaction Status Date / Time No Known Allergies Allergy Unknown Verified 01/25/24 18:55 [facility] Medical History 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 (ICD-10) labor ?O60.00 - labor without delivery, unspecified trimester (ICD-10) Low back pain ?M54.50 - Low back pain, unspecified (ICD-10) History of delivery ?Z87.51 - Personal history of pre-term labor (ICD-10) Obstetric vaginal laceration with second degree perineal laceration ?O70.1 - Second degree perineal laceration during delivery (ICD-10) Inflamed external hemorrhoid ?K64.4 - Residual hemorrhoidal skin tags (ICD-10) Chest wall pain ?R07.89 - Other chest pain (ICD-10) Surgical History History of third molar tooth extraction (2016) ?K08.409 - Partial loss of teeth, unspecified cause, unspecified class (ICD- 10) Family History Mother Hx of blood clots Family/Other Heart disease Breast cancer, Onset Age: 90 Paternal Grandmother Pulmonary hypertension Diabetes Paternal Grandfather Lung cancer Diabetes 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: , 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, 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 Very rare alcohol use Exercise 3 times a week, HIIT 30 minutes What is your current living situation?: I presently have a place to live Problems where you live: no known problems Problems where you live details: N/A In the past 12 months, utilities in danger of being shut off: no In the past 12 mos, have been you worried that your food would run out before you had money to buy more?: never true In the past 12 mos, the food you bought just didn't last and you didn't have money to buy more?: never true Smoking Status: Former smoker Do you use any of these nicotine containing products: None Second hand tobacco smoke exposure: No How often do you have a drink containing alcohol: never How often do you have six or more drinks on one occasion: Never AUDIT-C Alcohol total score: 0 Non-prescribed substance use: denies use How often does anyone, including family, friends and others, physically hurt you : never How often does anyone, including family, friends and others, insult or talk down to you: never How often does anyone, including family, friends and others, threaten you with harm: never How often does anyone, including family, friends and others, scream or curse at you: never service: No Exam Narrative: Exam Narrative: General: Well-developed and well-nourished, no acute distress Head: Atraumatic and normocephalic Eyes: Pupils are equal reactive, extraocular motions intact, conjunctiva clear ENT: External nose and ears are normal, posterior pharynx without erythema or exudate Neck: No midline cervical tenderness, full spontaneous range of motion the neck, trachea midline, no adenopathy Heart: Regular rate and rhythm no murmurs or thrills Lungs: Clear to auscultation bilaterally without wheezes or crackles Abdomen: Soft, nontender, nondistended with active bowel sounds Musculoskeletal: No tenderness, deformity, or edema Neurologic: Awake, alert, and oriented x3, no gross focal neurologic deficits, cranial nerves intact as tested Psych: Mood and affect are appropriate Skin: No rashes Const: Vital Signs, click to edit/add: Vital Signs - 24 hr 01/31/24 21:34 01/31/24 23:26 Temperature 97.9 F Pulse Rate [Left P ulse Oximeter] 93 Respiratory Rate 16 Blood Pressure 122/77 Blood Pressure [Ri ght Upper Arm] 123/82 Pulse Oximetry 98 Oxygen Delivery Me thod Room Air Course Course ED Course: Reviewed most recent hematology visit from October 2023 which was follow-up for 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 Patient presents today with an episode of loss time, unsure if she passed out and fell sleep. No fall or injury. No preceding palpitations or shortness of breath, has had some chest pain for quite some time by her report. Denies new headache, no nausea vomiting, denies possibility of . Labs, EKG, head CT are ordered. Reevaluation(s) Time of Reevaluation #1: 23:03 Reevaluation #1: EKG independently interpreted by me performed at 10:33 p.m. demonstrates normal sinus rhythm rate 80, no acute ST elevations or depressions, NJ 166, QTC 463, QRS 84. No prior for comparison. Labs independently interpreted by me with normal basic panel, negative troponin. Head CT is pending. Time of Reevaluation #2: 23:26 Reevaluation #2: CT scan of the head independently interpreted by me negative for acute findings. Patient is stable for discharge. Did consider pulmonary embolism however patient is adequately anticoagulated, no tachycardia, no hypoxia, no respiratory distress, no pleuritic-type chest pain. Also consider venous sinus thrombus but again patient is chronically anticoagulated making this less likely. Vital Signs Vital signs: Initial Vital Signs Temperature 97.9 F 01/31/24 21:34 Temperature Source Temporal Artery Scan 01/31/24 21:34 Pulse Rate 93 01/31/24 21:34 Pulse Rhythm Regular 01/31/24 21:34 Respiratory Rate 16 01/31/24 21:34 Blood Pressure 123/82 01/31/24 21:34 Blood Pressure Mean 95 01/31/24 21:34 Blood Pressure Position Sitting 01/31/24 21:34 Pulse Oximetry 98 01/31/24 21:34 Oxygen Delivery Method Room Air 01/31/24 21:34 Vital Signs Temperature 97.9 F 01/31/24 21:34 Pulse Rate 93 01/31/24 21:34 Respiratory Rate 16 01/31/24 21:34 Blood Pressure 123/82 01/31/24 21:34 Pulse Oximetry 98 01/31/24 21:34 Oxygen Delivery Method Room Air 01/31/24 21:34 Temperature 97.9 F 01/31/24 21:34 Pulse Rate 93 01/31/24 21:34 Respiratory Rate 16 01/31/24 21:34 Blood Pressure 122/77 01/31/24 23:26 Pulse Oximetry 98 01/31/24 21:34 Oxygen Delivery Method Room Air 01/31/24 21:34 MDM - Syncope Lab Data Labs: Lab Results 01/31/24 01/31/24 Range/Units 22:07 22:20 Sodium 139 (135-149) mmol/L Potassium 4.0 (3.6-5.1) mmol/L Chloride 105 (96-114) mmol/L Carbon Dioxide 24 (20-32) mmol/L Anion Gap 10 (7-15) mEq/L BUN 18 (5-24) mg/dL Creatinine 0.5 (0.5-1.5) mg/dL Estimated Creat Clear 165.81 Estimated GFR 133 ml/min Glucose 94 (60-115) mg/dL Calcium 9.5 (8.4-10.6) mg/dL Magnesium 2.2 (1.5-2.6) mg/dL POC Troponin I 0.00 L (0.01-0.04) ng/ml Discharge Plan Discharge Clinical Impression: Spell of altered consciousness, Antithrombin 3 deficiency, Anticoagulant long- term use Patient Disposition: Home, Self-Care Instructions: Syncope (DC) Additional Instructions: Follow-up with your primary care provider soon as possible for further evaluation Activity Level: Activity as Tolerated Discharge Diet: Regular Prescriptions: No Action hydrocortisone [Anusol-HC] 2.5 % cream with perineal applicator 1 applic NJ BID-QID PRN (Reason: hemorrhoids) Qty: 30 0RF benzonatate 200 mg capsule 200 mg PO TID PRN (Reason: cough) Qty: 30 0RF budesonide-formoterol [Symbicort] 160-4.5 mcg/actuation HFA aerosol inhaler 2 puff inhalation BID Qty: 10.2 0RF Rx Instructions: OK to use every four hours between twice daily administration for management of symptoms. Be sure to swish mouth with water and spit following each administration to prevent thrush. Eliquis 5 mg tablet 5 mg PO BID albuterol sulfate 90 mcg/actuation HFA aerosol inhaler 2 puff inhalation Q4-6H PRN (Reason: shortness of breath or wheezing) Qty: 6.7 0RF Follow Up/Referrals: Dianna Denise PRINT LINE OPERATOR [Primary Care Provider] - Stand Alone Forms: [employer] Info Instructions
--- OUTSIDE RECORDS SUMMARY | 2024-01-31 22:34 | XMS_ITS | Encounter Summary ---
Author Organization [facility] Address [address] 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
--- OUTSIDE RECORDS SUMMARY | 2024-01-31 22:34 | XMS_ITS | Referral Summary ---
Author Organization [place] Address [address] [facility] [place] [address] Care Team Providers Care Call Circuit Worker Name Role Phone No Ref-Primary, Physician Primary Care Provider Oleg Aparicio PA-C Unavailable [phone] Ana Oreilly MD Unavailable [phone] Encounters Date Type Department Care Team Description 12/27/2023 [facility] [place] [facility] [place] [facility] [address] [place] [phone] Oleg Aparicio PA-C 12/20/2023 [facility] [address] [place] [phone] Oleg Aparicio PA-C 12/20/2023 [facility] [address] [place] [phone] Handler, IMELDA Sánchez 12/19/2023 [facility] [place] [facility] [facility] [address] [place] [phone] Oleg Aparicio PA-C 12/01/2023 3:00 PM CDT Lab [facility] [address] [place] [address] Antithrombin III deficiency (H) (Primary Dx) 12/01/2023 Telephone [facility] [address] [place] [address] Zachary Bean 11/24/2023 [facility] Medical Advice [facility] [address] [place] [address] Zachary Bean 11/24/2023 Telephone [facility] [address] [place] [address] Zachary Bean 11/23/2023 Travel 11/23/2023 10:00 AM CDT Lab [facility] [address] [facility] [address] [place] [phone] Antithrombin III deficiency (H) 11/21/2023 Telephone [facility] [address] [facility] [address] [place] [phone] Sandie White RN 11/09/2023 [facility] Medical Advice [facility] [address] [place] [address] Zachary Bean from Last 3 Months Allergies No known [...] on file 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 Gender Identity Not on file Sexual Orientation Not on file Last Filed Vital Signs Vital Sign Reading Time Taken Comments Blood Pressure 111/73 09/15/2023 2:37 PM CDT Pulse 82 09/15/2023 2:37 PM CDT Temperature 36.5 C (97.7 F) 09/15/2023 2:37 PM CDT Respiratory Rate 16 07/18/2023 8:40 AM CDT Oxygen Saturation 99% 09/15/2023 2:37 PM CDT Inhaled Oxygen Concentration - - Weight 72.2 kg (159 lb 3.2 oz) 09/15/2023 2:37 P M CDT Height 170.2 cm (5' 7) 09/15/2023 2:37 PM CDT Body Mass Index 24.93 09/15/2023 2:37 PM CDT Plan of Treatment Not on file Procedures Procedure Name Priority Date/Time Associated Diagnosis Comments NEXT GENERATION SEQUENCING Routine 12/01/2023 2:48 PM CDT Antithrombin III deficiency (H) NGS SINGLE GENE Routine 12/01/2023 2:48 PM CDT Antithrombin III deficiency (H) HER[facility] [employer]OM[employer] HOLD FOR PREAUTHORIZATION Routine 11/23/2023 10:06 AM CDT Antithrombin III deficiency (H) CHLAMYDIA TRACHOMATIS/NEISSERIA GONORRHOEAE BY PCR STAT 07/15/2023 [...] MD LAB CHARGE PERFORMABLES Fi nal Result MOLE[facility]AGNOST[facility] (LDL) [facility] [address] [facility], [address] * Next Generation Sequencing (12/01/2023 2:48 PM CDT) Specimen Description Blood: ACD 11/23/2023 10:06 AM CDT MOLECULAR DIAGNOSTICS (LDL) Significant Results TEST REQUESTED: Next generation sequencing and copy number variation analysis of SERPINC1. RESULTS: Pathogenic/Likely Pathogenic Variant(s): None Detected Variant(s) of Uncertain Significance: One Detected 11/23/2023 10:06 AM CDT MOLECULAR DIAGNOSTICS (LDL) Interpretation No pathogenic or likely pathogenic variants were detected in the genes analyzed. Therefore, a genetic cause for this patient's symptoms was not identified. Of note, a variant of uncertain significance was identified in SERPINC1. Genetic counseling regarding these results is recommended. VARIANTS OF UNCERTAIN SIGNIFICANCE: Variants of uncertain clinical significance (VUS) are reported below. These variants cannot be definitively categorized as pathogenic or benign at the present time. Caution should be exercised in ascribing clinical phenotypes to rare variants without additional supporting evidence as the majority of rare/novel human variation is unlikely to cause Mendelian disease [Katty et al., 2012]. Correlation with clinical phenotype and analysis of other family members might help to clarify the significance of variants listed below. SERPINC1: [id number]; c.944T>C (p.Kkq937Oam), Het, Uncertain Significance The c.944T>C missense variant in SERPINC1 results in a p.Izq343Ant substitution. This variant is absent from the gnomAD (v4.1.0) database of approximately 807,000 controls. In silico prediction models estimate this variant to be damaging; however, the accuracy of such models is limited. This variant was not identified in a review of the peer reviewed literature or locus specific databases. Due to insufficient data to clearly classify this variant as pathogenic or benign, this variant is categorized as a variant of uncertain significance. (Electronically signed by: Juan Francisco Domingo MD December 19, 2023 3:02 PM) 11/23/2023 10:06 AM T [facility]ST[facility] ([facility] Lab PDF Result 11/23/2023 10:06 AM [facility] ([facility] Test Details BACKGROUND: Custom Panel: SERPINC1 When requested, EPCAM and GREM1 are analyzed for copy number variants only; the promoter regions of APC, BMPR1A, BRCA1, BRCA2, MLH1, MSH2, PTEN, SMAD4, and TP53 are analyzed for sequence variants; the promoter regions of APC, BMPR1A, BRCA1, BRCA2, GREM1, PTEN, and TP53 are analyzed for copy number variants. MSH2, when requested, is analyzed for the exon 1-7 (Uli) inversion by next generation sequencing, and if detected, is confirmed by PCR analysis using methods described by Crispin et al. [2002]. COVERAGE: This analysis is limited to the coding exons and immediately adjoining intronic sequences of the analyzed genes. Coverage is only guaranteed for biologically relevant transcripts, as defined in the LRG database. Coverage minimums are not guaranteed for intronic positions. Therefore, intronic variants cannot be confirmed or excluded with the same degree of confidence as coding exonic variants. With the exception of a limited set of known pathogenic variants, sequences residing more than 25 base pairs from a coding exon are not routinely analyzed. A list of these supplemental positions is available upon request. The proportion of coding bases covered at 15x and 20x coverage are reported below. Sensitivity is reduced in regions with less than 20x coverage, and variants cannot be confidently excluded in regions with <15x coverage. A list of specific regions not meeting these minimum thresholds is available upon request. For panels with less than 25 genes, when possible, Eitan sequencing is used to supplement coverage in regions with <15x coverage. Percentage of bases covered at 15x: 100 Percentage of bases covered at 20x: 100 METHODOLOGY [Karina et al., 2015][Rosana et al., 2014]: Genomic DNA is extracted from the sample, and sequencing libraries are prepared according to standard Agilent protocols using a custom-designed ME911t XT kit for enrichment of targeted genes. The enriched DNA libraries are sequenced on an Illumina Ansiraq or Nextseq instrument. Raw sequencing reads are mapped to the reference genome using BWA. Raw alignment files are realigned in the neighborhood of indels and recalibrated for base quality accuracy using the Genome Analysis Tool Kit (GATK) version 4.3.0. Point mutation and indel calls in exons and adjoining intronic regions are made using a combination of the GATK haplotype caller and Samtools mpileup. Variants are interpreted according to guidance issued by the [place] [employer] [Monroy et al., 2015]. For exons 11-15 of PMS2, reads from both PMS2 and PMS2CL are aligned to the PMS2 sequence as described in Stafford et al. [2018]. Any pathogenic or likely pathogenic variants in exons 11-15 of PMS2 are subsequently confirmed by long-range PCR. The long-range PMS2 PCR product is processed and sequenced on an Illumina MiSeq instrument and reads are aligned to PMS2. Genotyping and indel calling for the PMS2 long-range PCR product are done using Freebayes and Scanindel [Mckeon et al., 2015]. Pathogenic and predicted pathogenic variants that meet ALL of the following criteria are reported without validation by Uniopolis sequencin- single nucleotide substitution, 2- receives a PASS from the SNP or indel filter, 3- has a VAF in the accepted range (heterozygous = 0.3-0.6, homozygous/hemizy gous >0.9), 4- has a minimum of 20x coverage. Pathogenic variants that fail to meet any of these criteria are verified by [facility] sequencing prior to reporting [Jose L et al., 2015]. For copy number variation (CNV) analysis, raw sequencing reads are mapped to the reference human genome (HG19) using both BWA and Bowtie algorithms. CNV ratios are computed by comparing the average coverage in the sample across 60 base pair windows. Average coverage is compared to control loci both within the sample and within a gender-matched control sample from the same run. The BWA/Bowtie coverage ratio is calculated for each window in order to identify regions where the presence of homologous sequences precludes accurate CNV calls. Heterozygous deletion calls are made when 3 consecutive windows have a CNV ratio of 0.3-0.7; homozygous/hemizy gous deletion calls are made when 3 consecutive windows have a CNV ratio less than 0.3; and duplication calls are made when 5 consecutive windows have a CNV ratio greater than 1.3. Calls are only made in areas where the BWA/Bowtie ratio is 0.75-1.1 and the average coverage is 20x. All CNV calls are confirmed with a supplementary qPCR assay [Rosana et al., 2016]. The following types of variants are not included in the clinical report, but information about these variants is available upon request: *Missense variants that are present at >1% MAF in population databases AND are not reported as pathogenic/likely pathogenic in ClinVar. *Missense variants with a MAF <1% that are classified as benign or likely benign according to published ACMG criteria. *Synonymous variants that do not occur at an intron/exon boundary, are not reported as pathogenic/likely pathogenic in relevant clinical databases, and are present in 15 or more individuals in gnomAD. *Intronic variants that reside more than 5 bps from an intron/exon boundary AND are not reported as pathogenic/likely pathogenic in ClinVar. Known pathogenic variants residing 5-25 bps from an intron/exon boundary will be reported. *Untranslated region (UTR) variants not previously reported as pathogenic/likely pathogenic in relevant clinical databases. *Some variants may be excluded based on review of sequencing quality data. It is possible that some low quality variants are, in fact, real. LIMITATIONS: This analysis has not been validated for detection of insertion/deletio n mutations larger than 18bp in length. The size of polymorphic repetitive sequences, such as CAG repeats, intronic dinucleotide repeats, or intronic polyT/polyA sequences, cannot be determined by this analysis. The CNV algorithm is not validated to detect deletions encompassing less than 180 base pairs of coding sequence or duplications encompassing less than 300 base pairs of coding sequence. Coding exons comprised of less than 60 bases are not assessed by these methods. The CNV algorithm does not define precise breakpoints for duplications or deletions. Due to issues with GC content, the presence of a pseudogene, and/or repetitive sequences, detection of sequence and/or copy number variants is not possible in a limited number of regions, even when coverage exceeds 20x. Each of the following genes contains one or more exons that cannot be adequately analyzed due to these issues: CCDC40, OTTO, CES1, CISD2, DSPP, ESPN, FMN2, GCSH1, GNAS, GP1BA, HYDIN, KMT2C, KRT8, JEREMIAS, MUC5B, NEFH, OTOA, PKD1, PPA2, PSPH, RBMX, RP1L1, RPS17, SHANK3, SP110, STRC, TRIOBP, TTN, PLI057. A list of genes with a highly similar homolog or pseudogene for which specificity/sensi tivity may be reduced is available at https://www.ncbi. nlm.nih.gov/books /GKZ837001/. Additional details are available upon request. REFERENCES: Jose L REZA, Bayron Farnsworth, Rupesh BOOKER, Lionel Wilkes, Rosana Cornejo, et al. 2015. Criteria for Clinical Reporting of Variants from a Broad Target Capture NGS Assay without Eitan Verification. JSM biomarkers 2(1):1005. Rosana Cornejo, Bayron Bautista Henzler C, Apryl Farnsworth, Giles HUITRON, Mason B. 2016. CNV-RF Is a Random Barto-Based Copy Number Variation Detection Method Using Next-Generation Sequencing. J Mol Diagn. 18(6):872-881. PMID: 13415132. Rosana Cornejo, Aminah Cheung, Aviva GIBBONS, Mariya Cheung, Mor KB, Ayaka A, Yohe S, Apryl Farnsworth, Bayron Farnsworth, Giles HUITRON, Thyagarajan B. 2014. Implementation of Hartley based next generation sequencing data analysis in a clinical laboratory. BMC Res Notes. 7:314. PMID: 42757355. Eliana S, Josi N, Marquise S, Angela D, Dawkins S, Jerald-Jayme J, Loyda WW, Willam M, Mayo E, Kaitlin E, Esthela K, [facility] HL, [facility] On Site Wastewater Systems Technician Committee. 2015. Standards and guidelines for the interpretation of sequence variants: a joint consensus recommendation of the [place] [employer] and Genomics and the Association for Molecular Pathology. Ami. Med. 17(5):405-24. PMID: 13483685. Katty JA, Yenni AW, O'Elijah TD, sOcar W, Porter EE, Jaskaran S, Jono S, Do R, Menendez X, Jaime G, Ferny HM, Crow D, Joe SM, Samy S, Rikingsley MJ, Tono G, Francisco D, Carlota DA, Barak E, Valentín S, Joni CD, Daniel MJ, Chapo TANG, Jennifer GO, Mccormick GO, NHL Exome Sequencing Project. 2012. Evolution and functional impact of rare coding variation from deep sequencing of human exomes. Science. 337(0284):64-9. PMID: 80989930. Crispin A, van maulik Katina H, Carolyn P, Leland J, Gary Wilkes, Maria R V, Grisel R, Felicia Y, Thai Pierre, Van B, Posey J, Posey H, Niraj R. 2002. A 10-Mb paracentric inversion of chromosome arm 2p inactivates MSH2 and is responsible for hereditary nonpolyposis colorectal cancer in a [place] carisa. Genes Chromosomes Cancer. 35(1):49-57. PMID: 25364328. Karina S, Ayaka A, Toi K, Kb T, Bayron M, Apryl M, Rosana G, Will J, Aminah J, Vicente Y, Stephan Pierre, Aviva GIBBONS, Mor Moran, iGles KA, Mason Osorio. 2015. Clinical validation of targeted next-generation sequencing for inherited disorders. Arch. Pathol. Lab. Med. 139(2):204-10. PMID: 28340368. If a patient is the recipient of an allogeneic bone marrow transplant, this test must be done on a pretransplant sample or buccal swab. A previous allogeneic bone marrow transplant will interfere with test results. Call the Molecular Diagnostics Lab ([phone]) for instructions on sample collection for these patients. This test was developed and its performance characteristics determined by the [facility], [facility]ostics Laboratory. It has not been cleared or approved by the FDA. The laboratory is regulated under CLIA as qualified to perform high-complexity testing. This test is used for clinical purposes. It should not be regarded as investigational or for research. 11/23/2023 10:06 AM CDT [employer] [facility] (LDL) Blood BLOOD SPECIMEN / Unknown Venipuncture-No Charge / Unknown 12/01/2023 2:48 PM CDT 12/01/2023 2:48 PM CDT Travis Mcdaniel MD LAB - GENOMICS Final Resu lt [facility] (LDL) [facility] [address] [facility], [address] * Hereditary Genomics Hold For Preauthorization: [...] MOLECULAR DIAGNOSTICS ([facility]) [facility] [address] [facility], [address] * Chlamydia trachomatis/Neisseria gonorrhoeae by PCR (07/15/2023 6:23 PM CDT) Chlamydia Trachomatis Negative Negative 07/16/2023 12:02 PM CDT [facility] Comment: Negative for C. trachomatis rRNA by photoradio operator mediated amplification. A negative result by photoradio operator mediated amplification does not preclude the presence of infection because results are dependent on proper and adequate collection, absence of inhibitors and sufficient rRNA to be detected. Neisseria gonorrhoeae Negative Negative 07/16/2023 12:02 PM CDT [facility] Comment:Negative for N. gono rrhoeae rRNA by photoradio operator mediated amplification. A negative result by photoradio operator mediated amplification does not preclude the presence of C. trachomatis infection because results are dependent on proper and adequate collection, absence of inhibitors and sufficient rRNA to be detected. Urine VOIDED URINE SPECIMEN / Unknown Non-blood Collection / Unknown 07/15/2023 6:23 PM CDT 07/15/2023 6:30 PM CDT us Moira Roa MD LAB - MICRO GENERAL ORDERABLES Final Result [facility] Inf. Diseases Diag. Lab [address] [facility], [address] [place] [address], [facility] * HIV-1 Antibody (External Result) (01/26/2023) HIV 1&2 Antibody (External) Negative Nonreactive EXTERNAL LAB us Patient Reported LAB - HIM EXTERNAL RESULT Final Result EXTERNAL LAB External Lab from Last 3 Months or Most Recently Relevant to Health Maintenance Insurance [facility] [place] Advance Directives For more information, please contact: [phone] * Full Code (Latest Code Status on File) Date Activated Date Inactivated Comments 07/15/2023 7:25 PM 07/18/2023 1:55 PM All basic an d advanced life-sustaining interventions are performed as appropriate Question Answer Comments Code status determined by: Discussion with patie nt/ legal decision maker Care Teams Call Circuit Worker Relationship Specialty Start Date End Date No Ref-Primary, Physician PCP - General 03/31/23 Oleg Aparicio, PABrightC [address] [place] [address] Assigned Cancer Care Provider 05/06/23 Ana Oreilly MD [address] [facility] [address] [place] [address] Assigned OBGYN Provider 05/06/23
--- OUTSIDE RECORDS SUMMARY | 2024-01-31 22:34 | XMS_ITS | Encounter Summary ---
Author Organization [place] Address [address] [facility] 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 I also sent a Online-OR message to follow up with the patient. Zachary Bean Genomics Billing Fermenter Helper [facility] [address] [facility] [place] [address] [email or web address] Office: [phone] Fax: Employed by [place] [employer] documented in this encounter Plan of Treatment Not on file documented as of this encounter Visit Diagnoses Not on filedocumented in this encounter Care Teams Supervisor Gelatin Plant Relationship Specialty Start Date End Date No Ref-Primary, Physician PCP - General 03/31/23 Oleg Aparicio, PA-C [address] [facility] [address] [place] [address] Assigned Cancer Care Provider 05/06/23 Ana Oreilly MD [address] [place] [address] Assigned OBGYN Provider 05/06/23 documented as of this encounter
--- OUTSIDE RECORDS SUMMARY | 2024-01-31 22:34 | XMS_ITS | Encounter Summary ---
Author Organization [place] Address [address] [place] [address]. [place] [address] Care Team Providers Care Rn Delivery Name Role Phone No Ref-Primary, Physician Primary Care Provider Oleg Aparicio PA-C Unavailable [phone] Ana Oreilly MD Unavailable [phone] Encounter Details Date Type Department Care Team (Late st Contact Info) Description 12/27/2023 [facility] [place] [facility] [address] [facility] [address] [place] [address] Oleg Aparicio PA-C [address] [place] [address] 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 Tobacco Use Types [...] on file 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
--- OUTSIDE RECORDS SUMMARY | 2024-01-31 22:34 | XMS_ITS | Encounter Summary ---
Author Organization [place] Address [address] [place] [address]. 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 Gender Identity Not on file Sexual Orientation Not on file documented as of this encounter Plan of Treatment Not on file documented as of this encounter Visit Diagnoses Diagnosis Antithrombin III deficiency (H)- Primary Primary hypercoagulable state documented in this encounter Care Teams Microsoft Exchange Architect Relationship Specialty Start Date End Date No Ref-Primary, Physician PCP - General 03/31/23 Oleg Aparicio, RUPAL [address] [place], [place] [address] Assigned Cancer Care Provider 05/06/23 Ana Oreilly MD [address] [facility] [address] [place], [place] [address] Assigned OBGYN Provider 05/06/23 documented as of this encounter
--- OUTSIDE RECORDS SUMMARY | 2024-01-31 22:34 | XMS_ITS | Clinical Summary ---
Author Organization [place] Address [address] [place] [address] Care Team Providers Care Vegetable Farm Worker Name Role Phone No Ref-Primary, Physician Primary Care Provider Oleg Aparicio PA-C Unavailable [phone] Ana Oreilly MD Unavailable [phone] Allergies No known active allergies Medications [...] Date Type Department Care Team Description 12/27/2023 [facility] [address] [place] [address] Oleg Aparicio PA-C 12/20/2023 [facility] [address] [place] [address] Oleg Aparicio PA-C 12/20/2023 [facility] [address] [place] [address] Handler, Pirncess IMELDA 12/19/2023 [facility] [address] [place] [address] Oleg Aparicio PA-C 12/01/2023 3:00 PM CDT Lab [facility] [address] [place] [address] Antithrombin III deficiency (H) (Primary Dx) 12/01/2023 Telephone [facility] [address] [place] [address] Zachary Bean 11/24/2023 [facility] [address] [place] [address] Zachary Bean 11/24/2023 Telephone [facility] [address] [place] [address] Zachary Bean 11/23/2023 10:00 AM CDT Lab [facility] [address] [place] [address] Antithrombin III deficiency (H) 11/23/2023 Travel 11/21/2023 Telephone [facility] [address] [place] [address] Sandie White RN 11/09/2023 [facility] [address] [place] [address]Zachary Melton from Last 3 Months Immunizations Name Administration [...] on file 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 [facility], [address] [place] [id number] * Next Generation Sequencing (12/01/2023 2:48 PM CDT) Specimen Description Blood: ACD 11/23/2023 10:06 AM CDT [facility] (LDL) Significant Results TEST REQUESTED: Next generation sequencing and copy number variation analysis of SERPINC1. RESULTS: Pathogenic/Likely Pathogenic Variant(s): None Detected Variant(s) of Uncertain Significance: One Detected 11/23/2023 10:06 AM [facility] (LDL) Interpretation No pathogenic or likely [...] of variants listed below. SERPINC1: [id number]; c.944T>C (p.Tme768Iuv), Het, Uncertain Significance The c.944T>C missense variant in SERPINC1 results in a p.Yie498Nab substitution. This variant is absent from the [...] 19, 2023 3:02 PM) 11/23/2023 10:06 AM [facility] ([facility]) Lab PDF Result 11/23/2023 10:06 AM [facility] ([facility]) Test Details BACKGROUND: Custom Panel: SERPINC1 When [...] by PCR analysis using methods described by Roa et al. [2002]. COVERAGE: This analysis is [...] to standard Agilent protocols using a custom-designed Agilent Sureselect XT kit for enrichment of targeted genes. The enriched DNA libraries are sequenced on an Illumina eeGeoq or NextiZocaq instrument. Raw sequencing reads are mapped to [...] interpreted according to guidance issued by the [place] [employer] [Monroy et al., [...] following criteria are reported without validation by Eitan sequencin- single nucleotide substitution, 2- receives a PASS from the SNP or indel filter, 3- has a VAF in the accepted range (heterozygous = 0.3-0.6, homozygous/hemizy gous >0.9), 4- has a minimum of 20x coverage. Pathogenic variants that fail to meet any of these criteria are verified by Eitan sequencing prior to reporting [Jose L et [...] are confirmed with a supplementary qPCR assay [Maryo et al., 2016]. The following types of [...] RP1L1, RPS17, SHANK3, SP110, STRC, TRIOBP, TTN, ZYM584. A list of genes with a highly similar homolog or pseudogene for which specificity/sensi tivity may be reduced is available at https://www.ncbi. nlm.nih.gov/books /MLF503511/. Additional details are available upon request. REFERENCES: Jose L REZA, Rupesh Lopez, Lionel Wilkes, Rosana Cornejo, et al. 2015. Criteria for Clinical Reporting of Variants from a Broad Target Capture NGS Assay without [place] Verification. JS biomarkers 2(1):1005. Rosana Cornejo, Rupesh BOOKER, Lionel Lopez, Apryl Farnsworth, Giles KA, Mason Osorio. 2016. CNV-RF Is a Random Major-Based Copy Number Variation Detection Method Using Next-Generation Sequencing. J Mol Diagn. 18(6):872-881. PMID: 08991562. Rosana G, Aminah Cheung, Aviva GIBBONS, Mariya Cheung, Mor ELLISON, Ayaka Pierre, Karina Rodriguez, Apryl Farnsworth, Bayron Farnsworth, Giles KA, Mason B. 2014. Implementation of Dixie based next generation sequencing data analysis in a clinical laboratory. BMC Res Notes. 7:314. PMID: 23945006. Eliana S, Josi N, Marquise S, Angela D, Juancho S, Irma J, Loyda WW, Willam M, Mayo E, Kaitlin E, Esthela K, Favian HL, [facility] Laboratory Group Care Worker Committee. 2015. Standards and guidelines for the interpretation of sequence variants: a joint consensus recommendation of the [place] [employer] and Genomics and the Association for Molecular Pathology. Ami. Med. 17(5):405-24. PMID: 59926232. Katty JA, Yenni AW, O'Elijah TD, Oscar W, Porter EE, Jaskaran S, De La Cruz S, Do R, Menendez X, Jaime G, Isaacs HM, Crow D, Joe SM, Samy S, Roxana MJ, Tono G, Francisco D, Carlota DA, Barak E, Sundavid S, Joni CD, Daniel MJ, Chapo JM, [facility] GO, [facility], NHL Exome Sequencing Project. 2012. Evolution and functional impact of rare coding variation from deep sequencing of human exomes. Science. 337(2395):64-9. PMID: 61778626. Crispin A, van maulik Katina H, Carolyn P, Leland J, Gary C, Maria R V, Grisel R, Felicia Y, Thai A, Van B, Posey J, Posey H, Niraj R. 2002. A 10-Mb paracentric inversion of chromosome arm 2p inactivates MSH2 and is responsible for hereditary nonpolyposis colorectal cancer in a [place] carisa. Genes Chromosomes Cancer. 35(1):49-57. PMID: 06059498. Ayaka Lomax, Toi Moran, Kb Sahu, Bayron M, Apryl M, Rosana G, Will J, Aminah J, Vicente Y, Stephan Pierre, Aviva GIBBONS, Mor [place], Giles HUITRON, Mason Osorio. 2015. Clinical validation of targeted next-generation sequencing for inherited disorders. Arch. Pathol. Lab. Med. 139(2):204-10. PMID: 69601075. If a patient is the recipient of an allogeneic bone marrow transplant, this test must be done on a pretransplant sample or buccal swab. A previous allogeneic bone marrow transplant will interfere with test results. Call the [facility] ([phone]) for instructions on sample collection for these patients. This test was developed and its performance characteristics determined by the [facility], Molecular Diagnostics Laboratory. It has not been cleared or approved by the FDA. The laboratory is regulated under CLIA as qualified to perform high-complexity testing. This test is used for clinical purposes. It should not be regarded as investigational or for research. 11/23/2023 10:06 AM CDT [facility] (LDL) Blood BLOOD SPECIMEN / Unknown Venipuncture-No Charge / Unknown 12/01/2023 2:48 PM CDT 12/01/2023 2:48 PM CDT us Travis Mcdaniel MD LAB - GENOMICS Final Resu lt [facility] (LDL) [facility] [address] [facility] [facility], [address] * Hereditary Genomics Hold For Preauthorization: [...] MD LAB - GENOMICS Final Resu lt [facility] (LDL) [facility] [address] [facility] [facility] [address], [address] * Chlamydia trachomatis/Neisseria gonorrhoeae by PCR (07/15/2023 6:23 PM CDT) Chlamydia Trachomatis Negative Negative 07/16/2023 12:02 PM CDT [facility] Comment: Negative for C. trachomatis rRNA by hvac installation technician mediated amplification. A negative result by hvac installation technician mediated amplification does not preclude the presence of infection because results are dependent on proper and adequate collection, absence of inhibitors and sufficient rRNA to be detected. Neisseria gonorrhoeae Negative Negative 07/16/2023 12:02 PM CDT [facility] Comment:Negative for N. gono rrhoeae rRNA by hvac installation technician mediated amplification. A negative result by hvac installation technician mediated amplification does not preclude the presence of C. trachomatis infection because results are dependent on proper and adequate collection, absence of inhibitors and sufficient rRNA to be detected. Urine VOIDED URINE SPECIMEN / Unknown Non-blood Collection / Unknown 07/15/2023 6:23 PM CDT 07/15/2023 6:30 PM CDT Moira Roa MD LAB - MICRO GENERAL ORDERABLES Final Result Performing Organization Address [facility] Co de Phone Number [facility]. Diseases Di[facility]. Lab [address] [place] [address] * HIV-1 Antibody (External Result) (01/26/2023) HIV 1&2 Antibody (External) Negative Nonreactive EXTERNAL LAB us Patient Reported LAB - HIM EXTERNAL RESULT Final Result Performing Organization Address City/[facility]/ZIP Co de Phone Number EXTERNAL LAB External Lab from Last 3 Months or Most Recently Relevant to Health Maintenance Insurance [place] Advance Directives For more information, please contact: [phone] * Full Code (Latest Code Status on File) Date Activated Date Inactivated Comments 07/15/2023 7:25 PM 07/18/2023 1:55 PM All basic an d advanced life-sustaining interventions are performed as appropriate Question Answer Comments Code status determined by: Discussion with patie nt/ legal decision maker Care Teams Vegetable Farm Worker Relationship Specialty Start Date End Date No Ref-Primary, Physician PCP - General 03/31/23 Oleg Aparicio, RUPAL [address] [place] [address] Assigned Cancer Care Provider 05/06/23 Ana Oreilly MD [address] [address] Assigned OBGYN Provider 05/06/23
--- OUTSIDE RECORDS SUMMARY | 2024-01-31 22:34 | XMS_ITS | Encounter Summary ---
Author Organization [place] Address [address] [facility] [address] Care Team Providers Care Bleacher Lard Name Role Phone No Ref-Primary, Physician Primary Care Provider Oleg Aparicio PA-C Unavailable [phone] Ana Oreilly MD Unavailable [phone] Reason for Visit * Genomics (Routine) - Closed Specialty Diagnoses / Procedures Referred By Contac t Referred To Contact Diagnoses Antithrombin III deficiency (H) Procedures Hereditary Genomics Hold For Preauthorization: Travis Mcdaniel MD [address] [facility] [address] [place] [address] Phone: tel: fax: Referral ID Status Reason Start Date Expiration Date Visits Re quested Visits Authorized [id number] Closed 10/25/2023 10/24/2024 1 1 Encounter Details Date Type Department Care Team (Late st Contact Info) Description 11/23/2023 10:00 AM CDT Lab [facility] [address] [place] [address] Antithrombin III deficiency (H) Social [...] on file 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 [facility] documented in this encounter Visit Diagnoses Diagnosis Antithrombin III deficiency (H) Primary hypercoagulable state documented in this encounter Care Teams Bleacher Lard Relationship Specialty Start Date End Date No Ref-Primary, Physician PCP - General 03/31/23 Oleg Aparicio [facility] [address] [place], [place] [address] Assigned Cancer Care Provider 05/06/23 Ana Oreilly MD [address] [place] [address] Assigned OBGYN Provider 05/06/23 documented as of this encounter
--- OUTSIDE RECORDS SUMMARY | 2024-01-31 22:34 | XMS_ITS | Encounter Summary ---
Author Organization [place] Address [address] [place] [address]. 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 Gender Identity Not on file Sexual Orientation Not on file documented as of this encounter Plan of Treatment Not on file documented as of this encounter Procedures Procedure Name Priority Date/Time Associated Diagnosis Comments NGS SINGLE GENE Routine 12/01/2023 2:48 PM CDT Antithrombin III deficiency (H) NEXT GENERATION SEQUENCING Routine 12/01/2023 2:48 PM CDT Antithrombin III deficiency (H) documented in this encounter Results * NGS Single Gene (12/01/2023 2:48 PM CDT) Blood BLOOD SPECIMEN / Unknown Venipuncture-No Charge / Unknown 12/01/2023 2:48 PM CDT 12/01/2023 2:48 PM CDT Travis Mcdaniel MD LAB CHARGE PERFORMABLES Fi nal Result [facility] (LDL) [facility] [address] [facility], [address] * Next Generation Sequencing (12/01/2023 2:48 [...] of variants listed below. SERPINC1: [id number]; c.944T>C (p.[id number]), Het, Uncertain Significance The c.944T>C missense variant in SERPINC1 results in a p.Nzb960Gor substitution. This variant is absent from the [...] 19, 2023 3:02 PM) 11/23/2023 10:06 AM [facility] (LDL) Lab PDF Result 11/23/2023 10:06 AM [facility] ([facility]) Test Details BACKGROUND: Custom Panel: SERPINC1 When [...] to standard Agilent protocols using a custom-designed Qinqin.comt XT kit for enrichment of targeted genes. The enriched DNA libraries are sequenced on an Illumina Assistance.net Incq or NextMediaScrapeq instrument. Raw sequencing reads are mapped to [...] interpreted according to guidance issued by the [place] [employer] [Monroy et al., [...] RP1L1, RPS17, SHANK3, SP110, STRC, TRIOBP, TTN, CKW240. A list of genes with a highly similar homolog or pseudogene for which specificity/sensi tivity may be reduced is available at https://www.ncbi. nlm.nih.gov/books /VCG173680/. Additional details are available upon request. REFERENCES: Jose L REZA, Bayron Farnsworth, Rupesh BOOKER, Lionel Wilkes, Rosana Cornejo, et al. 2015. Criteria for Clinical Reporting of Variants from a Broad Target Capture NGS Assay without [place] Verification. JSM biomarkers 2(1):1005. Rosana Cornejo, Bayron Bauitsta Henzler C, Apryl Farnsworth, Giles HUITRON, Mason B. 2016. CNV-RF Is a Random [place]osh-Based Copy Number Variation Detection Method Using Next-Generation Sequencing. J Mol Diagn. 18(6):872-881. PMID: 32138367. Rosana Cornejo, Aminah Cheung, Aviva GIBBONS, Mariya Cheung, Mor ELLISON, Ayaka A, Yohe S, Apryl Farnsworth, Bayron Farnsworth, Giles HUITRON, Thyagarajan B. 2014. Implementation of [place] based next generation sequencing data analysis in a clinical laboratory. BMC Res Notes. 7:314. PMID: 27497339. Eliana S, Josi N, Marquise S, Angela D, Dawkins S, Irma J, Loyda WW, Willam M, Mayo E, Kaitlin E, Esthela K, Favian HL, [facility] Laboratory Stud Setter Committee. 2015. Standards and guidelines for the interpretation of sequence variants: a joint consensus recommendation of the [place] [employer] and Genomics and the Association for Molecular Pathology. Ami. Med. 17(5):405-24. PMID: 75043221. Katty JA, Yenni AW, O'Elijah TD, Oscar W, Porter EE, Jaskaran S, Jono S, R, Menendez X, Jaime G, Ferny HM, Crow D, Joe SM, Samy S, Roxana MJ, Tono G, Francisco D, Carlota DA, Barak Llanos, Valentín S, Joni CD, Daniel MJ, Chapo TANG, Jennifer GO, [place] GO, NHL Exome Sequencing Project. 2012. Evolution and functional impact of rare coding variation from deep sequencing of human exomes. Science. 337(4791):64-9. PMID: 50874491. Crispin Pierre, van maulik Katina H, Carolyn P, Leland J, Gary C, Maria R V, Grisel R, Felicia Y, Thai Pierre, Van B, Posey J, Taty H, Niraj R. 2002. A 10-Mb paracentric inversion of chromosome arm 2p inactivates MSH2 and is responsible for hereditary nonpolyposis colorectal cancer in a [place] carisa. Genes Chromosomes Cancer. 35(1):49-57. PMID: 94048515. Karina S, Ayaka A, Toi K, Kb T, Bayron M, Apryl M, Rosana G, Will J, Aminah J, Vicente Y, Stephan Pierre, Aviva GIBBONS, Mor Moran, Giles HUITRON, Mason Osorio. 2015. Clinical validation of targeted next-generation sequencing for inherited disorders. Arch. Pathol. Lab. Med. 139(2):204-10. PMID: 03280129. If a patient is the recipient of an allogeneic bone marrow transplant, this test must be done on a pretransplant sample or buccal swab. A previous allogeneic bone marrow transplant will interfere with test results. Call the [facility] ([phone]) for instructions on sample collection for these patients. This test was developed and its performance characteristics determined by the [facility], Molecular Diagnostics Laboratory. It has not been cleared or approved by the FDA. The laboratory is regulated under CLIA as qualified to perform high-complexity testing. This test is used for clinical purposes. It should not be regarded as investigational or for research. 11/23/2023 10:06 AM CDT [facility] (LDL) Blood BLOOD SPECIMEN / Unknown Venipuncture-No Charge / Unknown 12/01/2023 2:48 PM CDT 12/01/2023 2:48 PM CDT Travis Mcdaniel MD LAB - GENOMICS Final Resu lt [facility] (LDL) [facility] [address] [facility] [address], [address] [place] [address], [facility] documented in this encounter Visit Diagnoses Diagnosis Antithrombin III deficiency (H)- Primary Primary hypercoagulable state documented in this encounter Care Teams Data Management Associate Relationship Specialty Start Date End Date No Ref-Primary, Physician PCP - General 03/31/23 Oleg Aparicio, PABrightC [address] [place] [address] Assigned Cancer Care Provider 05/06/23 Ana Oreilly MD [address] [place], [place] [address] Assigned OBGYN Provider 05/06/23 documented as of this encounter
--- OUTSIDE RECORDS SUMMARY | 2024-01-31 22:34 | XMS_ITS | Encounter Summary ---
Author Organization [place] Address [address] [place] [address]. [place] [address] Care Team Providers Care Ball Holder Name Role Phone No Ref-Primary, Physician Primary Care Provider Oleg Aparicio PA-C Unavailable [phone] Ana Oreilly MD Unavailable [phone] Encounter Details Date Type Department Care Team ([facility] st Contact Info) Description 12/20/2023 Telephone [facility] [address] [place] [address] Oleg Aparicio PA-C [address] [place] [address] 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 Tobacco Use Types [...] on file 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 [facility] [address] [place] [address] [address], [place] [id number] Main: [phone], Telephone Note: Patient: Gabrielle Mcmahon ; 1995 Date of this note written: December 20, 2023 This leader writer spoke with Princess Villagran CGC, our clinic's genetic counselor in regard to her genetictesting for antithrombin III deficiency. 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 Princess and I discussed and considering her clinical history, this variant is likely pathogenic andlikely a variant that implicated for her antithrombin III deficiency. I called the patient on 12/20/2023 at 15:45 and re-iterate to her about what Princess Villagran CGC has already told her. Additionally, I have answered some additional questions to her satisfaction. I explain to her that the report of this genetic testing does NOT change my recommendation that she should remain on indefinite anticoagulation therapy. She is to remain on apixaban at 5 mg PO BID dosing. I explain to her that we do not have any opposition for her to get once again if her and her desire to do so. However, she is instructed to call our clinic if she should find herself in the future where apixaban is not indicated for use and thus she will need to switch over to enoxaparin at full therapeutic dosing regimen if she is found to be in the future. Otherwise, I will plan to see her back in August 2024 for routine annual follow up visit. Oleg Aparicio PA-C, MPAS Physician Ear Pull Machine Operator [facility]. documented in this encounter Plan of Treatment Not on file documented as of this encounter Visit Diagnoses Not on filedocumented in this encounter Care Teams Ball Holder Relationship Specialty Start Date End Date No Ref-Primary, Physician PCP - General 03/31/23 Oleg Aparicio PA-C [address] [place] [id number] Assigned Cancer Care Provider 05/06/23 Ana Oreilly MD [address] [place] [address] Assigned OBGYN Provider 05/06/23 documented as of this encounter
--- OUTSIDE RECORDS SUMMARY | 2024-01-31 22:34 | XMS_ITS | Encounter Summary ---
Author Organization [place] Address [address] [place] [address]. [place] [address] Care Team Providers Care Interventionist Name Role Phone No Ref-Primary, Physician Primary Care Provider Oleg Aparicio PA-C Unavailable [phone] Ana Oreilly MD Unavailable [phone] Encounter Details Date Type Department Care Team (Late st Contact Info) Description 12/19/2023 [facility] Medical Advice [facility] [address] [place] [address] Oleg Aparicio PA-C [address] [place] [address] 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 Tobacco Use Types [...] on file 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 Gender Identity Not on file Sexual Orientation Not on file documented as of this encounter Plan of Treatment Not on file documented as of this encounter Visit Diagnoses Not on filedocumented in this encounter Care Teams Interventionist Relationship Specialty Start Date End Date No Ref-Primary, Physician PCP - General 03/31/23 Oleg Aparicio PA-C [address] [place] [address] [address] [place], [place] [address] Assigned Cancer Care Provider 05/06/23 Ana Oreilly MD [address] [facility] [address] [place] [address] Assigned OBGYN Provider 05/06/23 documented as of this encounter
--- OUTSIDE RECORDS SUMMARY | 2024-01-31 22:34 | XMS_ITS | Encounter Summary ---
Author Organization [place] Address [address] 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
--- OUTSIDE RECORDS SUMMARY | 2024-01-31 22:34 | XMS_ITS | Continuity of Care Document ---
Author Organization [facility] Address [address] [place] [address] Phone Care Team Providers Care Bulk System Operator Name Role Phone Moira Roa MD Unavailable [...] [address], [place], [place], [id number] , [place] tel: [phone] [facility] No Information 4 Crispin Pizarro. [address], [place], [address], [place]. tel: [phone] Subsequent Hospital Care MDM Straightforward Or LOW 25 MIN [facility], [address], [place], [place], [id number] , [place] tel: [phone] [facility] IP No Information 4 Soledad Valentin. [address], [place], [address], [place]. tel: [phone] Initial Hospital Inpatient Or Observation Moderate MDM 55min [facility], [address], [place], [place], [id number] , [place] tel: [phone] [facility] IP labor without delivery, third trimesterPersona l history of pre-term laborInfection of other part of genital tract in , third trimesterPersona l history of pulmonary todaesih41 weeks gestation of pregnancyStrepto coccus B carrier state complicating weeks gestation of 4 [facility]. [address], [place], [address], [place]. tel:[phone] Family History Family Member Type Diagnosis Age At Onset No Information Payers Payer name Insurance type Covered green party ID Authoriza tion(s) No Information 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 Type Description Quantity Date Captured Comments Sex Female Smoking Status No Information Chief Complaint And Reason For Visit No Information History Of Present Illness Encounter Date Complaint History Of Prese nt Illness No Information Instructions Date Instruction Additional Infor mation No Information Assessments Type Assessment Date No Information
--- OUTSIDE RECORDS SUMMARY | 2024-01-31 22:34 | XMS_ITS | Encounter Summary ---
Author Organization [place] Address [address] [facility] 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 We had received her blood draw after she had contacted the clinic and the patient also viewed my [employer] message, but we received no response from [...] further questions. [facility] Hold For Preauthorization: [[id number]] order was placed by a genetics provider. Zachary Bean Genomics Billing Licensed Esthetician [facility] [address] [facility] [place] [address] [email or web address] Office: [phone] Fax: Employed by [employer] documented in this encounter Plan of Treatment Not on file documented as of this encounter Visit Diagnoses Not on filedocumented in this encounter Care Teams Entry Rep Relationship Specialty Start Date End Date No Ref-Primary, Physician PCP - General 03/31/23 Oleg Aparicio, PA-C [address] [place], [place] [address] Assigned Cancer Care Provider 05/06/23 Ana Oreilly MD [address] [place], [place] [id number] Assigned OBGYN Provider 05/06/23 documented as of this encounter
--- OUTSIDE RECORDS SUMMARY | 2024-01-31 22:35 | XMS_ITS ---
Author Organization [facility] Address [address] [place] [address] Care Team Providers Care Etl Tester Name Role Phone Unavailable Unavailable Unavailable Surgery Details Not on file Complications Check Surgery Details section. Procedure Estimated Blood Loss Check Surgery Details section. Procedure Findings Check Surgery Details section. Procedure Specimens Taken Check Surgery Details section.
--- OUTSIDE RECORDS SUMMARY | 2024-01-31 22:35 | XMS_ITS | Encounter Summary ---
Author Organization [place] Address [address] [place] [address] Care Team Providers Care Pattern Scratcher Name Role Phone No Ref-Primary, Physician Primary Care Provider Oleg Aparicio PA-C Unavailable [phone] Ana Oreilly MD Unavailable [phone] Reason for Referral * Genomics (Routine) - Closed Specialty Diagnoses / Procedures Referred By Contac t Referred To Contact Diagnoses Antithrombin III deficiency (H) Procedures [facility] Hold For Preauthorization: Travis Mcdaniel MD [address] [facility] [address] [place] [address] Phone: tel: fax: Referral ID Status Reason Start Date Expiration Date Visits Re quested Visits Authorized [id number] Closed 10/25/2023 10/24/2024 1 1 Encounter Details Date Type Department Care Team (Latest Contact Info) Description 10/25/2023 11:00 AM CDT Virtual Visit [facility] [address] [facility] [address] [place] [address] Oleg Aparicio PA-C [address] [place] [address] Handler, IMELDA Sánchez Antithrombin III [...] on file 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 There is no reported consanguinity. Discussion: We [...] obtained verbally for SERPINC1 gene testing at [facility]. We will begin with insurance [...] Phone: 30 minutes. Princess Villagran, PhD, MS, [facility] Genetic Counselor CC: No Letter documented in [...] MOLECULAR DIAGNOSTICS (LDL) [facility] [address] [facility] documented in this encounter Visit Diagnoses Diagnosis Antithrombin III deficiency (H)- Primary Primary hypercoagulable state documented in this encounter Care Teams Pattern Scratcher Relationship Specialty Start Date End Date No Ref-Primary, Physician PCP - General 03/31/23 Oleg Aparicio, PABrightC [address] [place] [address] Assigned Cancer Care Provider 05/06/23 Ana Oreilly MD [address] [place] [address] Assigned OBGYN Provider 05/06/23 documented as of this encounter
--- OUTSIDE RECORDS SUMMARY | 2024-01-31 22:35 | XMS_ITS | Encounter Summary ---
Author Organization [place] Address [address] [place] [address]. [place] [address] Care Team Providers Care Colorectal Surgeon Name Role Phone No Ref-Primary, Physician Primary Care Provider Oleg Aparicio PA-C Unavailable [phone] Ana Oreilly MD Unavailable [phone] Encounter Details Date Type Department Care Team (Late st Contact Info) Description 09/22/2023 MyC Medical Advice [facility] [address] [address] [place] [address] Oleg Aparicio PA-C [address] [place] [address] 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 Tobacco Use Types [...] on file 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 Gender Identity Not on file Sexual Orientation Not on file documented as of this encounter Plan of Treatment Not on file documented as of this encounter Visit Diagnoses Not on filedocumented in this encounter Care Teams Colorectal Surgeon Relationship Specialty Start Date End Date No Ref-Primary, Physician PCP - General 03/31/23 Oleg Aparicio PA-C [address] [place] [address] [address] [place], [place] [address] Assigned Cancer Care Provider 05/06/23 Ana rOeilly MD [address] [facility] [address] [place] [address] Assigned OBGYN Provider 05/06/23 documented as of this encounter
--- OUTSIDE RECORDS SUMMARY | 2024-01-31 22:35 | XMS_ITS | Encounter Summary ---
Author Organization [place] Address [address] 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
--- OUTSIDE RECORDS SUMMARY | 2024-01-31 22:35 | XMS_ITS | Clinical Summary ---
Author Organization [facility] Address [place], [place] [address] Care Team Providers Care Supply Clerk Name Role Phone Marybeth Andrew MD Primary Care Provider + Allergies No known active allergies Medications No known medications Encounters Date Type Department Care Team Description 12/01/2023 Orders Only [facility] [address] [place] [address] Dianna Wilkerson, KYAW 1 scan: (1-Ord) ZIO REPORT from Last 3 Months 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 Tobacco Use Types Packs/Day Years Used Date Smoking Tobacco: Never Smokeless Tobacco: Never Tobacco Cessation:Counseling Given: No Social Connections Answer Date Recorded Frequency of Communication with Friends and Fami ly Not on file 08/26/2022 Comments Unknown Sex and Gender Information Value Date Recorded Sex Assigned at Not on file Legal Sex Female 5:09 PM CDT Gender Identity Not on file Sexual Orientation [...] 05/13/2015 Tetanus booster 2017 COVID-19 vaccine series (2023- season) 2023 Influenza for age 9-49 10/23/2023 Pap test for age 21-65 10/04/2026 , 10/05/2023, 12/11/2020 Pneumococcal series for age 6-64 Aged Out No longer eligible b ased on patient's age to complete this topic Procedures Procedure Name Priority Date/Time Associated Diagnosis Comments EXTENDED HOLTER Routine 12/20/2023 Palpitations HPV HIGH RISK Routine 10/05/2023 12:00 PM CDT from Last 3 Months or Most Recently Relevant to Health Maintenance Results * EXTENDED HOLTER (12/20/2023) us Dianna Manzano TEA PLANTATION WORKER CARDIAC SERVICES ORD Claire l Result * HPV HIGH RISK (10/05/2023 12:00 PM CDT) TYPE 16 Negative Negative 10/11/2023 2:17 PM CDT [facility] TYPE 18 Negative Negative 10/11/2023 2:17 PM CDT [facility] OTHER HIGH RISK TYPES Negative Negative 10/11/2023 2:17 PM CDT [facility] Other (Cervical) 10/05/2023 12:00 PM CDT 10/07/2023 8:51 AM CDT Narrative [facility] - 10/11/2023 2:17 PM CDT HPV types 16, 18, 31, 33, 35, 39, 45, 51, 52, 56, 58, 59, 66 and 68 DNA were undetectable or below the pre-set threshold. Methodology: [employer] 4800 HPV Test us Jasmin Barrow MD MICROBIOLOGY Fi nal Result [facility] [address] [place] [address], from Last 3 Months or Most Recently Relevant to Health Maintenance Insurance [employer] Care Teams Supply Clerk Relationship Specialty Start Date End Date Marybeth Andrew MD [address] [place] [address] PCP - General Family Practice 08/20/22
--- OUTSIDE RECORDS SUMMARY | 2024-01-31 22:35 | XMS_ITS | Encounter Summary ---
Author Organization [place] Address [address] [facility] 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 1) She has not heard back from genetic testing billing department. I directed her to the [employer] message from 11/08 and advised that she [...] about trying another medication. Ron WEBER RN [facility] Office: [phone] Clinic: [phone] * Telephone Encounter - Sandie White RN - 11/21/2023 9:16 AM CDT [id number] Gabrielle Mcmahon 28 year old female CBCD Diagnosis: PE CBCD Provider: Oleg Aparicio PA-C Gabrielle had a question regarding blood draw and Eliquis. She can be reached at [phone] RN will route to RNMIKE Hanley. Sandie White RN, BSN, PCCN Nurse Clinician [facility] [address] [place] [address] Office, direct: [phone] Main office number: [phone] Pronouns: She, her, hers documented in this encounter Plan of Treatment Not on file documented as of this encounter Visit Diagnoses Not on filedocumented in this encounter Care Teams Java Systems Analyst Relationship Specialty Start Date End Date No Ref-Primary, Physician PCP - General 03/31/23 Oleg Aparicio PA-C [address] [place] [address] Assigned Cancer Care Provider 05/06/23 Ana Oreilly MD [address] [facility] [address] [place] [address] Assigned OBGYN Provider 05/06/23 documented as of this encounter
--- OUTSIDE RECORDS SUMMARY | 2024-01-31 22:35 | XMS_ITS | Clinical Summary ---
Author Organization [facility] Address [address] [place] [address] Care Team Providers Care Head School Custodian Name Role Phone Elsewhere, Pcp Primary Care Provider Unavailabl e Source Comments Patient records contain information from all sites at [facility]. For routine questions regarding patient records, call [phone] during business hours, M-F 8:00 AM - 5:00 PM Central Time. Record requests for emergency care only can be directed to [phone] at any time.[facility] Allergies No known active allergies Medications * This document contains information received from the source organization and may not represent a complete record from that organization. biuggks-Uo-lcul- FA (VINATE ONE) 60 mg iron-1 mg [...] any clubs o r organizations such as confucianism groups, unions, fraternal or athletic groups, or [...] and heating? Not hard at all 02/21/2022 [facility] of Occupat ional Health - Occupational Stress [...] Sex Assigned at Female 02/21/2022 11:00 AM PUBLIC ADDRESS SYSTEM OPERATOR Legal Sex Female 8:55 AM CDT Gender Identity Female 02/21/2022 11:00 AM PUBLIC ADDRESS SYSTEM OPERATOR Sexual Orientation Straight 02/21/2022 11 :00 AM PUBLIC ADDRESS SYSTEM OPERATOR Last Filed Vital Signs Vital Sign Reading Time Taken Comments Blood Pressure - - Pulse - - Temperature 36.6 C (97.9 F) 02/24/2022 12:38 PM PUBLIC ADDRESS SYSTEM OPERATOR Respiratory Rate - - Oxygen Saturation - - Inhaled Oxygen Concentration - - Weight 72.4 kg (159 lb 9.8 oz) 02/24/2022 12:38 PM PUBLIC ADDRESS SYSTEM OPERATOR Height 169.7 cm (5' 6.81) 02/24/2022 12:38 PM C Body Mass Index 25.14 02/24/2022 12:38 PM PUBLIC ADDRESS SYSTEM OPERATOR Plan of Treatment Health Maintenance Due Date Last Done Comments HIV Screening 1997 Hepatitis C Screening 1997 HPV Vaccines (1 - 3-dose series) 2012 Hepatitis B Vaccines (1 of 3 - 19+ 3-dose series) 2016 Depression Screening (Annual PHQ-2) 02/21/2023 COVID-19 Vaccine (1 - 2023-2 5 season) 2023 Influenza Vaccine (#1) 2023 01/25/2022 Cervical/Vaginal Cancer Screening 10/04/2026 024 DTaP,Tdap,and Td Vaccines (2 - Td or Tdap) 06/22/2033 06/23/2023 IPV Vaccines Aged Out No longer eligi ble based on patient's age to complete this topic Pneumococcal vaccine (0-64 years) Aged Out No longer eligible based on patient's age to complete this topic Insurance [facility] Care Teams Head School Custodian Relationship Specialty Start Date End Date Elsewhere, Pcp PCP - General Internal Medicine 02/24/22
--- OUTSIDE RECORDS SUMMARY | 2024-01-31 22:35 | XMS_ITS | Encounter Summary ---
Author Organization [place] Address [address] [place] [address]. [place] [address] Care Team Providers Care Certified Medical Coder Name Role Phone No Ref-Primary, Physician Primary Care Provider Oleg Aparicio PA-C Unavailable [phone] Ana Oreilly MD Unavailable [phone] Encounter Details Date Type Department Care Team ([facility] Contact Info) Description 04/28/2023 [facility] Medical Advice [facility] [address] [facility] [address] [place] [address] Carmen Pollack RN 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 Tobacco Use Types Packs/Day Years Used Date Smoking Tobacco: Never Assessed Adolescent Education Answer Date Record ed Getting School Help Needed Not on file 11/13 Comments Yes Sex and Gender Information Value Date Recorded Sex Assigned at Not on file 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
--- OUTSIDE RECORDS SUMMARY | 2024-01-31 22:35 | XMS_ITS | Referral Summary ---
Author Organization [facility] Address [address] [place] [address] Care Team Providers Care Senior Data Integration Developer Name Role Phone Elsewhere, Pcp Primary Care Provider Unavailabl e Source Comments Patient records contain information from all sites at [facility]. For routine questions regarding patient records, call [phone] during business hours, M-F 8:00 AM - 5:00 PM Central Time. Record requests for emergency care only can be directed to [phone] at any time.[facility] Allergies No known active allergies Medications * This document contains information received from the source organization and may not represent a complete record from that organization. nyodhap-Ci-idnm- FA (VINATE ONE) 60 mg iron-1 mg [...] often do you attend chur ch or adventist services? More than 4 times per year 02/21/2022 Do you belong to any clubs o r organizations such as catholic groups, unions, fraternal or athletic groups, or [...] place to sleep or slept in a nursing home (including now)? No 02/21/2022 Nutrition Answer [...] Sex Assigned at Female 02/21/2022 11:00 AM CLIENT BUSINESS MANAGER Legal Sex Female 8:55 AM CDT Gender Identity Female 02/21/2022 11:00 AM CLIENT BUSINESS MANAGER Sexual Orientation Straight 02/21/2022 11 :00 AM CLIENT BUSINESS MANAGER Last Filed Vital Signs Vital Sign Reading Time Taken Comments Blood Pressure - - Pulse - - Temperature 36.6 C (97.9 F) 02/24/2022 12:38 PM CLIENT BUSINESS MANAGER Respiratory Rate - - Oxygen Saturation - - Inhaled Oxygen Concentration - - Weight 72.4 kg (159 lb 9.8 oz) 02/24/2022 12:38 PM CLIENT BUSINESS MANAGER Height 169.7 cm (5' 6.81) 02/24/2022 12:[address] Body Mass Index 25.14 02/24/2022 12:38 PM CLIENT BUSINESS MANAGER Plan of Treatment Not on file Insurance [facility] Care Teams Senior Data Integration Developer Relationship Specialty Start Date End Date Elsewhere, Pcp PCP - General Internal Medicine 02/24/22
[2024-01-31 23:00] LABS: Creatinine* 0.5 mg/dL (0.5-1.5); Est. Creatinine Clearance* 165.81; Estimated Glomerular Filt Rate 133 ml/min
[2024-01-31 23:01] LABS: Blood Urea Nitrogen* 18 mg/dL (5-24); Calcium* 9.5 mg/dL (8.4-10.6); Carbon Dioxide* 24 mmol/L (20-32); Glucose* 94 mg/dL (60-115); Magnesium* 2.2 mg/dL (1.5-2.6)
--- NOTE | 2024-01-31 23:03 | CRLHL7_ITS ---
For Patients: As a result of the Century Cures Act, medical imaging exams and procedure reports are released immediately into your electronic medical record. You may view this report before your referring provider. If you have questions, please contact your health care provider. INDICATION: headache, syncope. TECHNIQUE: Non-contrast CT of the head is submitted. Comparison is made to the CT brain dated 08/02/2023. FINDINGS: The ventricles, sulci and gyri are of normal size, shape and contour. Midline structures are centrally located. No convincing evidence of intra- or extra-axial fluid collections. Left inferior maxillary sinus retention cyst. IMPRESSION: No radiographic evidence of acute intracranial abnormalities. Please note that all CT scans at this facility use dose modulation, iterative reconstruction, and/or weight-based dosing when appropriate to reduce radiation dose to as low as reasonably achievable. Dictated by Donovan Mak MD @ 01/31/2024 11:49:00 PM (Electronically Signed)
[2024-01-31 23:26] VITALS: BP 122/77
[2024-01-31 23:26] LABS: Anion Gap 10 mEq/L (7-15); Chloride* 105 mmol/L (96-114); Sodium* 139 mmol/L (135-149)
== END 2024-02-01 00:01 | disposition home or self-care (01) ==
PROVIDERS: Emergency Provider Family Medicine; PCP Nurse Practitioner Family
DX: D68.59 Other primary thrombophilia (principal); R41.82 Altered mental status, unspecified; Z79.01 Long term (current) use of anticoagulants
CPT/HCPCS: 36415; 70450; 80048; 83735; 84484; 93005; 99284; 99285

== ENCOUNTER 2024-02-17 08:19 | Outpatient (CLI) | payer BC, SELFPAY ==
[2024-02-17 13:29] LABS: Bacterial Vaginosis* Negative (Negative); Candida glab/krus NOT DETECTED (No Detected); Candida species NOT DETECTED (No Detected); Trichomonas vaginalis NOT DETECTED (No Detected)
[2024-02-17 14:00] LABS: Chlamydia DNA Amplified* NOT DETECTED (No Detected); GC DNA Amplified* NOT DETECTED (No Detected)
== END 2024-02-17 08:20 | disposition home or self-care (01) ==
PROVIDERS: PCP Nurse Practitioner Family; Visit Provider Registered Nurse
DX: R10.2 Pelvic and perineal pain (principal)
CPT/HCPCS: 81513; 87086; 87481; 87491; 87591; 87661

== ENCOUNTER 2024-02-20 16:33 | Emergency (ER) | payer BC, SELFPAY ==
[2024-02-20 16:52] VITALS: BP 126/75; PULSE 99; RESP 16; TEMP 36.9; O2SAT 100; BMI 24.3
--- NOTE | 2024-02-20 17:53 | CRLHL7_ITS ---
For Patients: As a result of the Cures Act, medical imaging exams and procedure reports are released immediately into your electronic medical record. You may view this report before your referring provider. If you have questions, please contact your health care provider. INDICATION: : wheezes; chest discomfort COMPARISON: Chest radiograph on January 25, 2024 and priors TECHNIQUE: Two view(s) of the chest FINDINGS: The cardiomediastinal silhouette and pulmonary vasculature are unremarkable. There is no focal airspace consolidation, pleural effusion, or pneumothorax. No displaced fractures. IMPRESSION: No acute cardiopulmonary process. Dictated by Kvng Crawford MD @ 02/20/2024 7:01:08 PM (Electronically Signed)
--- NOTE | 2024-02-20 18:01 | ED.GENADULT ---
HPI - General Adult General Chief complaint: Chest Pain Stated complaint: Chest tightness Time Seen by Provider: 02/20/24 17:16 History of Present Illness HPI narrative: This 28-year-old female comes in reporting some chest tightness that is occurred on and off over the past several weeks but more recently last night. She states that she does feel some discomfort and feels some tightness in her breathing. Taking a deep breath does make the discomfort more pronounced. She does not report any nausea, vomiting, lightheadedness, shortness of breath, or diaphoresis. She does not have any exercise intolerance. She is on Eliquis for life after having significant pulmonary embolism during about a year ago. She was on Lovenox through the and now is taking Eliquis. 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 She arrives here with normal vital signs and does not have tachycardia or fever. She states that her 6-month-old was diagnosed with a positive pertusses infection. She was also having cough at this time and did complete a full course of doxycycline. She states that she is feeling better from her cough but continues to have some tightness in her breathing. Related Data Home Medications ?Medication ?Instructions ?Recorded ?Confirmed apixaban 5 mg tablet (Eliquis) 5 mg PO BID 11/24/23 02/20/24 Previous Rx's ?Medication ?Instructions ?Recorded hydrocortisone 2.5 % topical cream 1 applic WI BID-QID PRN 01/26/23 with perineal applicator hemorrhoids #30 grams (Anusol-HC) albuterol sulfate 90 mcg/actuation 2 puff inhalation Q4-6H PRN 01/25/24 aerosol inhaler shortness of breath or wheezing #6.7 grams omeprazole 20 mg capsule,delayed 20 mg PO QDAY #30 caps 02/02/24 release methylprednisolone 4 mg tablets in See Rx Instructions PO .COMPLEX 02/20/24 a dose pack (Medrol (Jonny)) #21 ea Allergies Allergy/AdvReac Type Severity Reaction Status Date / Time No Known Allergies Allergy Unknown Verified 02/17/24 07:48 Review of Systems Status of ROS: Reports: 10 or more systems reviewed and unremarkable except as noted in History and below Narrative: Constitutional: No fevers, no weight gain or loss. Eyes: No discharge. No vision changes. HENT: No congestion, no sore throat, no ear pain. Cardiovascular: No chest pain, no palpitations. Respiratory: She reports wheezes and tightness in her breathing. Gastrointestinal: No abdominal pain, no vomiting, no diarrhea. Genitourinary: No dysuria, no hematuria. Musculoskeletal: Normal range of motion. Skin: No rashes, no pruritis. Neurological: No dizziness, weakness, sensory change, speech change. Endo/Heme/Allergies: No bruising or bleeding. No polydipsia. Pysch: no suicidality, no anxiety, no insomnia. All other systems reviewed and are negative. 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 (ICD-10) labor ?O60.00 - labor without delivery, unspecified trimester (ICD-10) Low back pain ?M54.50 - Low back pain, unspecified (ICD-10) History of delivery ?Z87.51 - Personal history of pre-term labor (ICD-10) Obstetric vaginal laceration with second degree perineal laceration ?O70.1 - Second degree perineal laceration during delivery (ICD-10) Inflamed external hemorrhoid ?K64.4 - Residual hemorrhoidal skin tags (ICD-10) Chest wall pain ?R07.89 - Other chest pain (ICD-10) Surgical History History of third molar tooth extraction (2016) ?K08.409 - Partial loss of teeth, unspecified cause, unspecified class (ICD-10) Family History Mother Hx of blood clots Family/Other Heart disease Breast cancer, Onset Age: 90 Paternal Grandmother Pulmonary hypertension Diabetes Paternal Grandfather Lung cancer Diabetes 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: , 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, 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 Very rare alcohol use Exercise 3 times a week, HIIT 30 minutes What is your current living situation?: I presently have a place to live Problems where you live: no known problems Problems where you live details: N/A In the past 12 months, utilities in danger of being shut off: no In past 12 months, lack of transportation kept you from medical appts, meetings, work, or getting things needed for daily living: no In the past 12 mos, have been you worried that your food would run out before you had money to buy more?: never true In the past 12 mos, the food you bought just didn't last and you didn't have money to buy more?: never true Smoking Status: Former smoker Do you use any of these nicotine containing products: None Second hand tobacco smoke exposure: No How often do you have a drink containing alcohol: never How often do you have six or more drinks on one occasion: Never AUDIT-C Alcohol total score: 0 Non-prescribed substance use: denies use How often does anyone, including family, friends and others, physically hurt you: never How often does anyone, including family, friends and others, insult or talk down to you: never How often does anyone, including family, friends and others, threaten you with harm: never How often does anyone, including family, friends and others, scream or curse at you: never service: No Exam Narrative: Exam Narrative: Constitutional: Well-developed, well-nourished, no acute distress. HEENT: Normocephalic, atraumatic. Neck: Normal range of motion. Nontender. Supple. Heart: Regular. No murmurs. Normal rate. Intact distal pulses. Lungs: Bilateral inspiratory and expiratory wheezes. No use of accessory muscles for breathing. Abdomen: Normal bowel sounds. Nontender. No rebound tenderness. Genitalia: Deferred. Back: No midline tenderness. Normal range of motion. Extremities: Normal range of motion. No injury. Skin: Intact. No rash. Warm. No erythema or pallor. Neurologic: No altered sensation. No weakness. Alert and oriented. Psychiatric: No suicidality. No anxiety or depression. No insomnia. Nursing notes and vitals signs are reviewed. Const: Vital Signs, click to edit/add: Vital Signs - 24 hr 02/20/24 16:52 Temperature 98.5 F Pulse Rate [Pulse Oximeter] 99 Respiratory Rate 16 Blood Pressure [Ri ght Upper Arm] 126/75 Pulse Oximetry 100 Oxygen Delivery Me thod Room Air Course Vital Signs Vital signs: Initial Vital Signs Temperature 98.5 F 02/20/24 16:52 Temperature Source Temporal Artery Scan 02/20/24 16:52 Pulse Rate 99 02/20/24 16:52 Respiratory Rate 16 02/20/24 16:52 Blood Pressure 126/75 02/20/24 16:52 Blood Pressure Mean 92 02/20/24 16:52 Blood Pressure Position Sitting 02/20/24 16:52 Pulse Oximetry 100 02/20/24 16:52 Oxygen Delivery Method Room Air 02/20/24 16:52 Vital Signs Temperature 98.5 F 02/20/24 16:52 Pulse Rate 99 02/20/24 16:52 Respiratory Rate 16 02/20/24 16:52 Blood Pressure 126/75 02/20/24 16:52 Pulse Oximetry 100 02/20/24 16:52 Oxygen Delivery Method Room Air 02/20/24 16:52 Temperature 98.5 F 02/20/24 16:52 Pulse Rate 99 02/20/24 16:52 Respiratory Rate 16 02/20/24 16:52 Blood Pressure 126/75 02/20/24 16:52 Pulse Oximetry 100 02/20/24 16:52 Oxygen Delivery Method Room Air 02/20/24 16:52 Medications Administered Medications: Discontinued Medications Generic Name Dose Route Start Last Admin Trade Name Freq PRN Reason Stop Dose Admin Albuterol/Ipratropium 1 neb 02/20/24 17:53 02/20/24 18:08 Iprat-Albut 0.5-2.5 Mg/3 Ml Neb IH 02/20/24 17:54 1 neb ONCE ONE Administration Dexamethasone 10 mg 02/20/24 17:53 02/20/24 18:07 Dexamethasone 10 Mg/Ml Inj PO 02/20/24 17:54 10 mg ONCE ONE Administration Medical Decision Making MDM Narrative Medical decision making narrative: This patient comes in reporting some tightness in her breathing. On exam she has bilateral inspiratory and expiratory wheezes. She does not have a history of asthma does have a history of extensive bilateral pulmonary emboli and is currently taking Eliquis and will so for life. Chest x-ray is obtained and shows no sign of acute cardiopulmonary disease. This patient recently had pertusses and did complete a course of doxycycline and felt better. She continues to cough however. She did receive an oral dose of dexamethasone 10 mg and did also receive a DuoNeb. These medicines did not improve the sound of her lungs much but she continues to have normal vital signs and is in no acute distress. She is able to be discharged home and I did provide prescription for Medrol Dosepak. She does have albuterol at home that she can use if needed. ECG Data Attestation: I personally reviewed and interpreted this ECG as follows: Interpretation: Normal sinus rhythm. Rate is 91 beats per minute. There are no ST or T-wave abnormalities. Discharge Plan Discharge Clinical Impression: Reactive airway disease Patient Disposition: Home, Self-Care Condition: Stable Additional Instructions: Take medication as prescribed. Use albuterol as needed. Use [id number] medicines also as needed and directed. Follow up with MD return if worsening. Prescriptions: New methylprednisolone [Medrol (Jonny)] 4 mg tablets,dose pack See Rx Instructions .ROUTE .COMPLEX Qty: 21 0RF Rx Instructions: orally per package directions No Action hydrocortisone [Anusol-HC] 2.5 % cream with perineal applicator 1 applic WI BID-QID PRN (Reason: hemorrhoids) Qty: 30 0RF omeprazole 20 mg capsule,delayed release(DR/EC) 20 mg PO QDAY Qty: 30 1RF Eliquis 5 mg tablet 5 mg PO BID albuterol sulfate 90 mcg/actuation HFA aerosol inhaler 2 puff inhalation Q4-6H PRN (Reason: shortness of breath or wheezing) Qty: 6.7 0RF Follow Up/Referrals: Dianna Denise, CARE PROGRAM RESIDENT [Primary Care Provider] - Stand Alone Forms: [employer] Info Instructions
[2024-02-20] MEDS: dexAMETHasone 10 MG/ML inj PO (18:07)
[2024-02-20] MEDS: IPRAT-ALBUT 0.5-2.5 MG/3 ML NEB 1 NEB IH (18:08)
== END 2024-02-20 19:20 | disposition home or self-care (01) ==
PROVIDERS: Emergency Provider Emergency Medicine Emergency Medical Services; PCP Nurse Practitioner Family
DX: J45.909 Unspecified asthma, uncomplicated (principal); M54.9 Dorsalgia, unspecified; M54.50 Low back pain, unspecified; Z51.89 Encounter for other specified aftercare; M25.512 Pain in left shoulder; M25.511 Pain in right shoulder
CPT/HCPCS: 71046; 97110; 97140; 97161; 99284; J1100

== ENCOUNTER 2024-02-24 12:00 | Outpatient (CLI) | payer BC, SELFPAY ==
--- NOTE | 2024-02-24 12:15 | CRLHL7_ITS ---
For Patients: As a result of the Century Cures Act, medical imaging exams and procedure reports are released immediately into your electronic medical record. You may view this report before your referring provider. If you have questions, please contact your health care provider. CLINICAL HISTORY: pelvic and perineal pain TECHNIQUE: 2D armstrong scale ultrasound. In addition color Doppler and spectral Doppler analysis was performed of the pelvis using a transabdominal and transvaginal approach. FINDINGS: On transvaginal imaging, the myometrium has a normal uniform echotexture. The uterus measures 9.1 x 4.0 x 5.2 cm the endometrial lining measures 12 mm in thickness. The right ovary measures 3.6 x 1.8 x 2.0 cm in size and the left ovary measures 3.2 x 1.9 x 2.0 cm. The ovaries demonstrate normal arterial and venous blood flow on color Doppler and spectral Doppler analysis. There are no suspicious fluid collections within the cul-de-sac. IMPRESSION: Normal pelvic ultrasound. No adnexal mass or excess pelvic free fluid. No uterine fibroid. No ovarian torsion. Dictated by Warner Ortiz MD @ 02/24/2024 12:40:14 PM (Electronically Signed)
== END 2024-02-24 12:01 | disposition home or self-care (01) ==
LOC: US 12:01
PROVIDERS: PCP Nurse Practitioner Family; Visit Provider Registered Nurse
DX: R10.2 Pelvic and perineal pain (principal)
CPT/HCPCS: 76830; 76856; 93976

== ENCOUNTER 2024-04-04 15:45 | Outpatient (CLI) | payer BC, SELFPAY | END 2024-04-04 15:46 | disposition home or self-care (01) | LOC: CT 15:45 | PROVIDERS: PCP Nurse Practitioner Family; Visit Provider Otolaryngology | DX: J32.9 Chronic sinusitis, unspecified (principal); J32.0 Chronic maxillary sinusitis; J32.1 Chronic frontal sinusitis | CPT/HCPCS: 70486 ==

== ENCOUNTER 2024-04-09 08:18 | Outpatient (CLI) | payer BC, SELFPAY | END 2024-04-09 08:19 | disposition home or self-care (01) | LOC: NFLDREF 04-11 06:46 | PROVIDERS: PCP Nurse Practitioner Family; Referring Provider Nurse Practitioner Family; Visit Provider Nurse Practitioner Family | DX: Z13.220 Encounter for screening for lipoid disorders (principal); Z83.438 Family history of other disorder of lipoprotein metabolism and other lipidemia | CPT/HCPCS: 80061; 83695 ==

== ENCOUNTER 2024-04-27 10:41 | Outpatient (CLI) | payer BC, SELFPAY | END 2024-04-27 10:42 | disposition home or self-care (01) | PROVIDERS: PCP Nurse Practitioner Family; Visit Provider Nurse Practitioner Family | DX: R53.83 Other fatigue (principal); R79.89 Other specified abnormal findings of blood chemistry | CPT/HCPCS: 82306; 82652; 82728; 84443 ==

== ENCOUNTER 2024-05-14 10:00 | Emergency (ER) | payer BC, SELFPAY ==
--- OUTSIDE RECORDS SUMMARY | 2024-05-14 10:02 | XMS_ITS | Encounter Summary ---
Author Organization [place] Address [address] [place] [address]. [place] [address] Care Team Providers Care Patent Paralegal Name Role Phone No Ref-Primary, Physician Primary Care Provider Oleg Aparicio PA-C Unavailable [phone] Ana Oreilly MD Unavailable [phone] Encounter Details Date Type Department Care Team (Late Contact Info) Description 09/22/2023 MyC Medical Advice [facility] [address] [place] [address] [phone] Oleg Aparicio PA-C [address] [place] [address] [address] [place], [place] [phone] 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 Tobacco Use Types Packs/Day Years [...] on file 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 Gender Identity Not on file Sexual Orientation Not on file documented as of this encounter Plan of Treatment Upcoming Encounters Date Type Department Care Team (Late Contact Info) Description 05/21/2024 3:30 PM CDT Virtual Visit [facility] [address] [place] [address] [address] [place] [phone] Oleg Aparicio PA-C [facility] [place] [place], [place] [phone] documented as of this encounter Visit Diagnoses Not on filedocumented in this encounter Care Teams Patent Paralegal Relationship Specialty Start Date End Date No Ref-Primary, Physician PCP - General 03/31/23 Oleg Aparicio PA-C [facility] [place] [id number] Assigned Cancer Care Provider 05/06/23 Ana Oreilly MD [address] [facility] [address] [place], [place] [address] Assigned OBGYN Provider 05/06/23 documented as of this encounter
--- OUTSIDE RECORDS SUMMARY | 2024-05-14 10:02 | XMS_ITS | Encounter Summary ---
Author Organization [facility] Address [address] [place] [address]. [place] [address] Care Team Providers Care Active Directory Specialist Name Role Phone No Ref-Primary, Physician Primary Care Provider Oleg Aparicio PA-C Unavailable [phone] Ana Oreilly MD Unavailable [phone] Encounter Details Date Type Department Care Team (Late Contact Info) Description 12/19/2023 MyC Medical Advice [facility] [address] [place] [address] [phone] Oleg Aparicio PA-C [address] [place] [address] [address] [place], [place] [phone] 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 Tobacco Use Types Packs/Day Years [...] on file 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 Gender Identity Not on file Sexual Orientation Not on file documented as of this encounter Plan of Treatment Upcoming Encounters Date Type Department Care Team (Late Contact Info) Description 05/21/2024 3:30 PM CDT Virtual Visit [facility] [address] [place] [address] [address] [place] [phone] Oleg Aparicio PA-C [facility] [address] [place], [place] [phone] documented as of this encounter Visit Diagnoses Not on filedocumented in this encounter Care Teams Active Directory Specialist Relationship Specialty Start Date End Date No Ref-Primary, Physician PCP - General 03/31/23 Oleg Aparicio PA-C [facility] [address] [id number] Assigned Cancer Care Provider 05/06/23 Ana Oreilly MD [address] [facility] [address] [place], [place] [address] Assigned OBGYN Provider 05/06/23 documented as of this encounter
--- OUTSIDE RECORDS SUMMARY | 2024-05-14 10:02 | XMS_ITS | Clinical Summary ---
Author Organization [employer] [facility] Address [address] [place] [address] Care Team Providers Care Business Travel Consultant Name Role Phone Marybeth Andrew MD [...] COVID-19 vaccine series ( season) 2023 Influenza Vaccine (#1) 2023 Pap test for age 21-65 10/04/2026 , 10/05/2023, 12/11/2020 Pneumococcal series for age 6-49 Aged Out No longer eligible b ased on patient's age to complete this topic Procedures Procedure Name Priority Date/Time Associated Diagnosis Comments HPV HIGH RISK Routine 10/05/2023 12:00 PM CDT from Last 3 Months or Most Recently Relevant to Health Maintenance Results * HPV HIGH RISK (10/05/2023 12:00 PM CDT) TYPE 16 Negative Negative 10/11/2023 2:17 PM CDT [facility] TYPE 18 Negative Negative 10/11/2023 2:17 PM CDT [facility] OTHER HIGH RISK TYPES Negative Negative 10/11/2023 2:17 PM CDT [facility] Other (Cervical) 10/05/2023 12:00 PM CDT 10/07/2023 8:51 AM CDT Narrative [facility] - 10/11/2023 2:17 PM CDT HPV types 16, 18, 31, 33, 35, 39, 45, 51, 52, 56, 58, 59, 66 and 68 DNA were undetectable or below the pre-set threshold. Methodology: Kendrick Lulu 4800 HPV Test us Jasmin Barrow MD MICROBIOLOGY Fi nal Result [facility] [address] [place] [address], from Last 3 Months or Most Recently Relevant to Health Maintenance Insurance [employer] Care Teams Business Travel Consultant Relationship Specialty Start Date End Date Marybeth Andrew MD [address] [place] [id number] PCP - General Family Practice 08/20/22
--- OUTSIDE RECORDS SUMMARY | 2024-05-14 10:02 | XMS_ITS | Encounter Summary ---
Author Organization [employer] Address [address] [address] Care Team Providers Care Machine Scallop Cutter Name Role Phone Dianna Denise Daja SAHA, MANAGEMENT NURSE RN Primary Care Provider Reason for Visit * Reason Comments Bump Encounter Details Date Type Department Care Team (Late st Contact Info) Description 04/24/2024 Telephone [facility] [address] Ophthalmology [address] [facility] 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 Pt was seen in ENT (not P[facility]) and a cyst was found in one of her cheek sinus cavities on left side. The patient is having some sx that could be related to the cyst and ENT provider would like pt evaluated by Eye Dept to determine if the sx are unrelated or possibly related. SX: LE Episodes of greasy VA (like looking thru a transparent blob) 2-3 times daily Episodes last about 1 min. VA does not clear with blinking Pt denies pain, redness,extensive VA change,mucous drainage HX: sx started 1 year ago during and have continued to present Discussion: Pt does not use AT Pt does not wear gls - GEREMIAS 11/2023 not PNC SX: It feels like she has to wipe away goop but does not see anything Plan: Pt will start some Refresh Tears and use them tid until appt. Appt for eval of sx with Optometry. UITWARE BRUSHER * Melony Enrique LPN - 04/24/2024 2:22 PM CST lmtcb UITWARE BRUSHER * Leeann Caldera - 04/24/2024 2:02 PM CST Symptoms Describe your symptoms (include right eye, left eye, or both eyes): LE - cyst under cheekbone, blurred vision - does get routine eye exam at [facility] When did they start? 2 months Are symptoms worsening, or are they about the same since they began? same Have you experience anything similar to this before (if yes, add details)? No Pt is scheduled for [facility] CE on 05/04. [/Appt Center: If this call is after 4 p.m., communicate to patient: If you do not receive a call back today, your message will be returned the next business day.] UITWARE BRUSHER documented in this encounter Plan of Treatment Not on file documented as of this encounter Visit Diagnoses Not on filedocumented in this encounter Care Teams Machine Scallop Cutter Relationship Specialty Start Date End Date Dianna Denise, LAY UPS ASSEMBLER, [place] [address] [place] [address] PCP - General Nurse Practitioner 04/24/24 documented as of this encounter
--- OUTSIDE RECORDS SUMMARY | 2024-05-14 10:02 | XMS_ITS | Encounter Summary ---
Author Organization [employer] Address [address], [place] [address] Care Team Providers Care Steel Fabricator Name Role Phone Dianna Denise Daja SAHA, DAIRY MACHINE OPERATOR FARMWORKER Primary Care Provider Reason for Visit * Reason Comments Eye Problem Encounter Details Date Type Department Care Team (Late st Contact Info) Description 05/04/2024 2:40 PM CDT Office Visit [facility] [address] [phone] Pauline Noel, OD [address] [place] [address] Dry eye syndrome of both eyes (Primary Dx) 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 Tobacco Use Types Packs/Day Years Used Date Smoking Tobacco: Never Assessed Comments Unknown Sex and Gender Information Value Date Recorded Sex Assigned at Not on file 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 Medical history, current medications, and allergies reviewed. Assessment: ICD-10-CM 1. Dry eye syndrome of both eyes H04.123 Plan: 1. Discussed findings with patient. Discussed that mucus strands in tear film is from tears not properly hydrating the front surface of the eyes. Switch to lipid/mucus base artifical tears like Refresh Relieva (sample provided) QID BE. Can also try Gel artifical tears at bedtime (Refresh Gel samplegiven). Also, recommended warm compresses daily for 3-5 min. Advised to use tears and warm compresses for minimum two weeks. If symptoms resolve, then can decrease frequency to 1-2 times daily. Call if symptoms persist. RTC as needed. documented in this encounter Plan of Treatment Not on file documented as of this encounter Visit Diagnoses Diagnosis Dry eye syndrome of both eyes- Primary documented in this encounter Care Teams Steel Fabricator Relationship Specialty Start Date End Date Dianna Denise, MARIA A, DAIRY MACHINE OPERATOR FARMWORKER [address] [place] [address] PCP - General Nurse Practitioner 04/24/24 documented as of this encounter
[2024-05-14 10:03] VITALS: BP 129/80; PULSE 90; RESP 18; TEMP 36.8; O2SAT 97; BMI 24.2
--- OUTSIDE RECORDS SUMMARY | 2024-05-14 10:03 | XMS_ITS | Encounter Summary ---
Author Organization [facility] Address [address] [place] [address]. 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 [address] [place] [phone] Oleg Aparicio PA-C [address] [place], [place] [phone] documented as of this encounter Visit Diagnoses Not on filedocumented in this encounter Care Teams Pharmacy Salesperson Relationship Specialty Start Date End Date No Ref-Primary, Physician PCP - General 03/31/23 Oleg Aparicio, PABrightC [address] [place] [address] Assigned Cancer Care Provider 05/06/23 Ana Oreilly MD [address] [facility] [address] [place], [place] [phone] Assigned OBGYN Provider 05/06/23 documented as of this encounter
--- OUTSIDE RECORDS SUMMARY | 2024-05-14 10:03 | XMS_ITS | Encounter Summary ---
Author Organization [place] Address [address] [place] [address]. [place] [address] Care Team Providers Care In Store Marketer Name Role Phone No Ref-Primary, Physician Primary Care Provider Oleg Aparicio PA-C Unavailable [phone] Ana Oreilly MD Unavailable [phone] Encounter Details Date Type Department Care Team (Late st Contact Info) Description 03/15/2024 MyC Medical Advice [facility] Disorders [address] [place] [phone] Oleg Aparicio PA-C [address] [place] [address] [address] [place] [address] 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 Tobacco Use Types [...] on file 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 Gender Identity Not on file Sexual Orientation Not on file documented as of this encounter Plan of Treatment Upcoming Encounters Date Type Department Care Team (Late Contact Info) Description 05/21/2024 3:30 PM CDT Virtual Visit [facility] Disorders [address] [place] [address] [address] [place] [address] Oleg Aparicio PA-C [facility] [address] [place], [place] [phone] documented as of this encounter Visit Diagnoses Not on filedocumented in this encounter Care Teams In Store Marketer Relationship Specialty Start Date End Date No Ref-Primary, Physician PCP - General 03/31/23 Oleg Aparicio PA-C [facility] [address] [address] Assigned Cancer Care Provider 05/06/23 Ana Oreilly MD [address] [facility] [address] [place], [place] [address] Assigned OBGYN Provider 05/06/23 documented as of this encounter
--- OUTSIDE RECORDS SUMMARY | 2024-05-14 10:03 | XMS_ITS | Encounter Summary ---
Author Organization [place] Address [address] [facility] 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 Encouraged her to follow up with PCP in the future monitor iron. Karen WEBER RN [facility] for Bleeding [facility] Clotting Disorders Office: [phone] Clinic: [phone] * Telephone Encounter - Karen Vazquez RN - 04/30/2024 1:43 PM CDT [id number] Gabrielle Mcmahon 28 year old female CBCD Diagnosis: PE CBCD Provider: RUPAL Aparicio [facility] she has been fatigued lately and saw her primary care provider. Her hemoglobin came back at 13, and her ferritin was ~6. Gabrielle states her menstrual bleeding has been heavier ever since starting anticoagulants. It is overall manageable for her day-to-day, but maycontributing to the low ferritin. Her PCP advised oral iron supplementation as long as it was okay with RUPAL Aparicio. I advised the patient is fine to take oral iron either daily or every other day. Advised she take it with Vitamin C containing food/drink for best absorption, and that she shouldavoid taking it with calcium. Will also route to RUPAL Aparicio to see if he would like to order IV iron, or consider a medication like TXA for heavy menstrual bleeding. Karen WEBER RN [facility] for [facility]otting Disorders Office: [phone] Clinic: [phone] * Addendum Note - Karen Vazquez RN - 04/30/2024 1:43 PM CDTAddended by: KAREN VAZQUEZ on: 04/30/2024 04:09 PM Modules accepted: Orders documented in this encounter Plan of Treatment Upcoming Encounters Date Type Department Care Team (Late st Contact Info) Description 05/21/2024 3:30 PM CDT Virtual Visit [facility] for [facility] Disorders [address] [facility] [address] [place] [address] Oleg Aparicio PA-C [address] [place] [address] [address] [place], [place] [address] documented as of this encounter Visit Diagnoses Diagnosis History of pulmonary embolism- Primary Personal history of pulmonary embolism Fatigue Other malaise and fatigue documented in this encounter Care Teams Shelf Drier Operator Relationship Specialty Start Date End Date No Ref-Primary, Physician PCP - General 03/31/23 Oleg Aparicio PA-C [address] [place] [address] 105 [place], [place] [phone] Assigned Cancer Care Provider 05/06/23 Ana Oreilly MD [address] [facility] [address] [place], [place] [address] Assigned OBGYN Provider 05/06/23 documented as of this encounter
--- OUTSIDE RECORDS SUMMARY | 2024-05-14 10:03 | XMS_ITS | Encounter Summary ---
Author Organization [place] Address [address] [place] [address]. [place] [address] Care Team Providers Care Eligibility Technician Name Role Phone No Ref-Primary, Physician Primary Care Provider Oleg Aparicio PA-C Unavailable [phone] Ana Oreilly MD Unavailable [phone] Encounter Details Date Type Department Care Team (Late Contact Info) Description 03/19/2024 MyC Medical Advice [facility] for Bleeding and Clotting Disorders [address] [place] [address] [phone] Oleg Aparicio PA-C [address] [place] [address] 105 [place], [place] [phone] 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 Tobacco Use Types Packs/Day Years [...] on file 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 Gender Identity Not on file Sexual Orientation Not on file documented as of this encounter Plan of Treatment Upcoming Encounters Date Type Department Care Team (Late Contact Info) Description 05/21/2024 3:30 PM CDT Virtual Visit [facility] for [facility]ot[facility] Disorders [address] [place] [address] 105 [place] [address] Oleg Aparicio PA-C [facility] [address] [place], [place] [phone] documented as of this encounter Visit Diagnoses Not on filedocumented in this encounter Care Teams Eligibility Technician Relationship Specialty Start Date End Date No Ref-Primary, Physician PCP - General 03/31/23 Oleg Aparicio PA-C [facility] [address] [address] Assigned Cancer Care Provider 05/06/23 Ana Oreilly MD [address] [facility] [address] [place], [place] [address] Assigned OBGYN Provider 05/06/23 documented as of this encounter
--- OUTSIDE RECORDS SUMMARY | 2024-05-14 10:03 | XMS_ITS | Encounter Summary ---
Author Organization [place] Address [address] [place] [address]. 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 Gender Identity Not on file Sexual Orientation Not on file documented as of this encounter Plan of Treatment Upcoming Encounters Date Type Department Care Team (Late Contact Info) Description 05/21/2024 3:30 PM CDT Virtual Visit [facility] for [facility]ot[facility] Disorders [address] [facility] [address] [place] [phone] Oleg Aparicio PA-C [address] [place] [address] [place], [place] [address] documented as of this encounter Visit Diagnoses Not on filedocumented in this encounter Care Teams Sales Representative Girls' Apparel Relationship Specialty Start Date End Date No Ref-Primary, Physician PCP - General 03/31/23 Oleg Aparicio, PABrightC [address] [place] [address] [place] [address] Assigned Cancer Care Provider 05/06/23 Ana Oreilly MD [address] [facility] [address] [place], [place] [phone] Assigned OBGYN Provider 05/06/23 documented as of this encounter
--- OUTSIDE RECORDS SUMMARY | 2024-05-14 10:03 | XMS_ITS | Clinical Summary ---
Author Organization [employer] Address [address] [address] Care Team Providers Care Felling Bucking Supervisor Name Role Phone Dianna Denise Daja SAHA, PATEL Primary Care Provider Source Comments You are receiving this document as you are listed as the primary care provider,follow-up provider, or the patient has been referred to you for consultation.This is in compliance with the Medicare and[facility] Hospital[facility] EHR Incentive Program,which states Providers who transition their patient to another setting of careor provider of care or refers their patient to another provider of care shouldprovide summary care record for each transition of care or referral. [employer] Medications ELIQUIS 5 MG tablet Take 1 Tablet (5 mg) by mouth two times a day. 5 Active benzonatate (TESSALON) 200 MG capsule Take 1 Capsule (200 mg) by mouth three times a day as needed. 4 Active budesonide-form oterol (SYMBICORT) 160-4.5 MCG/ACT inhaler Inhale. 4 Active cefuroxime (CEFTIN) 500 MG tablet Take 1 Tablet (500 mg) by mouth two times a day. 5 Active ibuprofen (MOTRIN) 200 MG tablet IBUPROFEN 200 MG TABS Active acetaminophen (TYLENOL) 325 MG tablet TYLENOL 325 MG TABS Active ALBUterol sulfate HFA 108 (90 Base) MCG/ACT inhaler Inhale 2 Puffs. 4 Active Active Problems No known active problems Encounters Date Type Department Care Team Description 05/04/2024 2:40 PM CDT Office Visit [facility] [address] [phone] Pauline Noel A, OD Dry eye syndrome of both eyes (Primary Dx) 04/24/2024 Telephone [facility] [address] [place] [facility] 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 Gender Identity Not on file Sexual Orientation Not on file Plan of Treatment Health Maintenance Due Date Last Done Comments Cervical Cancer Screening Due 1997 Hep C Screening (Preventive Services) 1997 HIV Screening (Preventive Services) 2013 Adult Preventive Visit 05/13/2015 DTaP/Tdap/Td (1 - Tdap) 2016 HepB (1) 2016 COVID-19 Vaccine ( - 2023-2 5 season) 2023 Influenza (#1) 2023 01/25/2022 Zoster/Shingles (1 of 2) 05/13/2047 HPV Vaccine Aged Out No longer eligi ble based on patient's age to complete this topic HepA Aged Out No longer eligi ble based on patient's age to complete this topic Hib Aged Out No longer eligi ble based on patient's age to complete this topic IPV (Polio) Aged Out No longer eligi ble based on patient's age to complete this topic MCV4 Aged Out No longer eligi ble based on patient's age to complete this topic Meningococcal B Aged Out No longer el igible based on patient's age to complete this topic Pneumococcal Aged Out No longer eligi ble based on patient's age to complete this topic Insurance [facility] Care Teams Felling Bucking Supervisor Relationship Specialty Start Date End Date Dianna Denise, MOLD STAMPER AND REPAIRER, CRIMPING MACHINE OPERATOR FOR METAL [address] [place] [address] PCP - General Nurse Practitioner 04/24/24
--- OUTSIDE RECORDS SUMMARY | 2024-05-14 10:03 | XMS_ITS | Encounter Summary ---
Author Organization [place] Address [address] [facility] [place] [address] Care Team Providers Care Furnace Builder Name Role Phone No Ref-Primary, Physician Primary Care Provider Oleg Aparicio PA-C Unavailable [phone] Ana Oreilly MD Unavailable [phone] Reason for Visit * Reason Comments Medication Refill Encounter Details Date Type Department Care Team ([facility] st Contact Info) Description 04/18/2024 Refill [facility] for Bleeding and Clotting Disorders [address] 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 They were last evaluated by our team on 12/20/2023 over the phone with the plan to remain on intermediate AC and follow up in August. Patient would like to keep appointment for April of this year. Prescription updated and refill given to last until follow up appt. Ron WEBER RN [facility] for Bleeding and Clotting Disorders Office: [phone] Clinic: [phone] SCREEN PROCESSOR documented in this encounter Plan of Treatment Upcoming Encounters Date Type Department Care Team (Late st Contact Info) Description 05/21/2024 3:30 PM CDT Virtual Visit [facility] for Bleeding and Clotting Disorders [address] [facility] [address] [place] [phone] Oleg Aparicio PA-C [address] [place] [place], [place] [address] documented as of this encounter Visit Diagnoses Diagnosis History of pulmonary embolism Personal history of pulmonary embolism Family history of blood clots Family history of other blood disorders Antithrombin III deficiency Primary hypercoagulable state documented in this encounter Care Teams Furnace Builder Relationship Specialty Start Date End Date No Ref-Primary, Physician PCP - General 03/31/23 Oleg Aparicio PA-C [address] [place] [address] [place], [place] [address] Assigned Cancer Care Provider 05/06/23 Ana Oreilly MD [address] [place] [address] [place], [place] [address] Assigned OBGYN Provider 05/06/23 documented as of this encounter
--- OUTSIDE RECORDS SUMMARY | 2024-05-14 10:03 | XMS_ITS | Encounter Summary ---
Author Organization [place] Address [address] [place] [address]. [place] [address] Care Team Providers Care Asp Net Mvc Developer Name Role Phone No Ref-Primary, Physician Primary Care Provider Oleg Aparicio PA-C Unavailable [phone] Ana Oreilly MD Unavailable [phone] Encounter Details Date Type Department Care Team (Late st Contact Info) Description 04/11/2024 Telephone [facility] for Bleeding and Clot[facility] Disorders [address] [place] [address] Ron Hanley RN 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 [...] file Legal Sex Female 8:39 AM CLINICAL APPLICATIONS MANAGER Gender Identity Not on file Sexual Orientation Not on file documented as of this encounter Miscellaneous Notes * Telephone Encounter - Ron Hanley RN - 04/17/2024 10:57 AM CST Called Gabrielle and relayed RUPAL Aparicio's recommendations as outlined below. She is aware she needs to hold Eliquis 2 days prior, then continue to hold for 1 week post procedure. I reviewed nonpharmacological strategies to prevent DVT. Gabrielle feels comfortable proceeding with the surgery but would like to keep her appointment with Oleg at the end of April for now. I then called Dr. Maldonado and reviewed RUPAL Aparicio's recommendations with him. He appreciated the call and had no further questions. Ron WEBER RN [facility] for Bleeding [facility] Clotting Disorders Office: [phone] Clinic: [phone] ICAL APPLICATIONS MANAGER * Telephone Encounter - Ron Hanley RN - 04/13/2024 10:28 AM CST Called and spoke with Gabrielle and relayed recommendations from RUPAL Aparicio. Gabrielle is in agreement with plan and does not feel the need to come in for an office visit until August if Oleg is OK with this. Called Dr. Maldonado's ENT practice at [facility] to confirm that he is okay with this plan. He is out until 04/17 so his team will me back once he returns. Ron WEBER RN [facility] for Bleeding and Clotting Disorders Office: [phone] Clinic: [phone] ICAL APPLICATIONS MANAGER * Telephone Encounter - Ron Hanley RN - 04/11/2024 3:37 PM CST [id number] Gabrielle Chavo Mcmahon 28 year old female CBCD Diagnosis: PE CBCD Provider: RUPAL Aparicio Incoming call from Gabrielle who recently met with her ENT Dr. Rocky Maldonado with [facility]. Patient has been having issues with her sinuses and is considering undergoing leftside sinus cyst removal, and deviated septum repair. She is currently on Eliquis 5mg BID. She is wondering if it would be safe to stop this around the procedure, and if so how long before and after should she be off of it. Routing to provider for recommendations. Once received RN will communicate with patient and to ENT clinic. Ron WEBER RN [facility] for Bleeding and Clotting Disorders Office: [phone] Clinic: [phone] ICAL APPLICATIONS MANAGER documented in this encounter Plan of Treatment Upcoming Encounters Date Type Department Care Team (Late st Contact Info) Description 05/21/2024 3:30 PM CDT Virtual Visit [facility] for Bleeding and Clotting Disorders [address] [facility] [address] [place] [phone] Oleg Aparicio PA-C [address] [place], [place] [phone] documented as of this encounter Visit Diagnoses Not on filedocumented in this encounter Care Teams Asp Net Mvc Developer Relationship Specialty Start Date End Date No Ref-Primary, Physician PCP - General 03/31/23 Oleg Aparicio PA-C [address] [place] [address] Assigned Cancer Care Provider 05/06/23 Ana Oreilly MD [address] [place] [address] [place], [place] [phone] Assigned OBGYN Provider 05/06/23 documented as of this encounter
--- OUTSIDE RECORDS SUMMARY | 2024-05-14 10:03 | XMS_ITS | Clinical Summary ---
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 During the daytime may take 1/2 to 1 tab as needed for neck pain tizanidine 84842391855 Jon Vazquez MD ELIQUIS 5 MG TABS TAKE 1 TABLET BY MOUTH TWICE A DAY apixaban 73243213766 Jon Vazquez MD TYLENOL 325 MG TABS prn acetaminophen 41662416017 Yolis Schmidt PA-C IBUPROFEN 200 MG TABS prn ibuprofen [id number] Yolis Schmidt PA-C TIZANIDINE HCL 4 MG TABS Take 1/2 tablet by mouth every night as directed : 1/2 tab per night then increased by 1/2 tab every 10 days until 8 mg per night or until headache or neck pain controlled. During the daytime may take 1/2 to 1 tab as needed for neck pain tizanidine 13602816323 Jon Vazquez MD SUMATRIPTAN SUCCINATE 100 MG TABS Take 1/2 tablet by mouth as directed : half tab to 1 tab at onset of headache. May repeat in 2 hour as needed up to 1.5 tabs per 24 hour. Not to exceed 9 day use per month. sumatriptan succinate 39634782574 Jon Vazquez MD Medications Administered No information available. Allergies, Adverse Reactions, Alerts Observed no known allergies at Results Date Name Value Unit Range Flag Description Internal Other: Verbal Autho rization/Emergency Contact - OBS VERBAL_EMER DONE Verbal au thorization and emergency contact Internal Other: Authorizatio n - OBS [email or web address] Yes Authoriza tion: Release of Information - Authorize [facility] - Payment and Healthcare Operations ROIAUTHOTHER Yes Authoriz ation: Release of Information - Authorize Others/Insurance - Payment and Healthcare Operations HIECONSENT Yes Consent To Release information to the Health Information Exchange (HIE) [email or web address] Yes Authorizat ion: Authorization for [facility] to leave messages, voicemail, send text messages, send emails AUTHRELHCARE Yes Authoriz ation: Release/Retrieval of Information to/from Healthcare Facilities, Pharmacy Benefit Payers and Providers AUTHPRIVPRAC Yes Authoriz ation: Notice of privacy practices AUTHBENEFIT Yes Authoriza tion: Assignment of Benefits and Payment Agreement Office Visit: Office Visit f ax MEDS REVIEW Done Documenta tion of current medications (procedure) Plan of Care Type Date Detail Pending order Follow up as nee ded Pending order Follow up Pending order Follow up Pending order Follow up CATHI in clinic or telemedicine Pending order Instructions for Staff Pending order Follow up in cli iveth or telemedicine with provider or CATHI Pending order EEG (41min) Pending order Instructions for Staff Pending order CBC with Diff/Pl atelet Pending order Lyme Total Ab w/ Reflex (reflex to Western Blot) Pending order Patient Instruct ions Procedures Code Procedure Name Date Entry Date [facility]-[id number] Documentation of current medicatio ns ORDERS Follow up as needed ORDERS Follow up CATHI in clinic or telemedicine 2 ORDERS Instructions for Staff 03/08 ORDERS Follow up in clinic or telemedicine with provider or CATHI CPT-25303 EEG EXTENDED 41-60mins (END) [id number] EEG (41min) ORDERS Patient Instructions [facility]-[id number] Documentation of current medicatio ns ORDERS CBC with Diff/Platelet 01/08 ORDERS Lyme Total Ab w/Refl ex (reflex to Western Blot) ORDERS Instructions for Staff 01/08 Vital Signs Date Name Value Unit Description Heart Rate 66 /min pulse rate Immunizations No information available. Advance Directives No information available.
--- OUTSIDE RECORDS SUMMARY | 2024-05-14 10:03 | XMS_ITS | Encounter Summary ---
Author Organization [place] Address [address] [place] [address]. [place] [address] Care Team Providers Care Metal Hanger Name Role Phone No Ref-Primary, Physician Primary Care Provider Oleg Aparicio PA-C Unavailable [phone] Ana Oreilly MD Unavailable [phone] Encounter Details Date Type Department Care Team (Late st Contact Info) Description 04/28/2023 MyC Medical Advice [facility] [address] [place] [address] [address] [place] [address] Carmen Pollack RN 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 Tobacco Use Types Packs/Day Years Used Date Smoking Tobacco: Never Assessed Adolescent Education Answer Date Record ed Getting School Help Needed Not on file 11/13 Comments Yes Sex and Gender Information Value Date Recorded Sex Assigned at Not on file 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 [place] [address] Oleg Aparicio PA-C [address] [place], [place] [id number] documented as of this encounter Visit Diagnoses Not on filedocumented in this encounter Care Teams Metal Hanger Relationship Specialty Start Date End Date No Ref-Primary, Physician PCP - General 03/31/23 Oleg Aparicio, PABrightC [facility] [address] [place] [address] Assigned Cancer Care Provider 05/06/23 Ana Oreilly MD [id number] [address] [place], [place] [address] Assigned OBGYN Provider 05/06/23 documented as of this encounter
--- OUTSIDE RECORDS SUMMARY | 2024-05-14 10:03 | XMS_ITS | Clinical Summary ---
Author Organization [place] Address [address] [facility] [place] [address] Care Team Providers Care Financial Aid Counselor Name Role Phone No Ref-Primary, Physician Primary Care Provider Oleg Aparicio PA-C Unavailable [phone] Ana Oreilly MD Unavailable [phone] Allergies No known active allergies Medications Vit-Fe Fumarate-FA ( VITAMIN PO) Take 1 tablet by mouth daily Active apixaban ANTICOAGULANT (ELIQUIS ANTICOAGULANT) 5 MG tabletIndications :History of pulmonary embolism,Family history of blood clots,Antithrombi n III deficiency TAKE 1 TABLET BY MOUTH TWICE A DAY 180 tablet 04/19/19 25 Active tranexamic acid (LYSTEDA) 650 MG tabletIndications :Fatigue Take 2 tablet (1300mg) twice daily during menses. 30 tablet 1 05/01/19 25 Active apixaban ANTICOAGULANT (ELIQUIS) 5 MG tabletIndications :History of pulmonary embolism,Family history of blood clots,Antithrombi n III deficiency Take 1 tablet (5 mg) by mouth 2 times daily. 180 tablet 1 10/21/19 24 025 Discontinued Active Problems Problem Noted Date Diagnosed Date [...] Encounters Date Type Department Care Team Description 04/30/2024 Telephone [facility] [address] [facility] [address] [place] [address] Ron Hanley, RN 04/18/2024 Refill [facility] [address] [place] [address] [address] [place] [address] Oleg Aparicio PA-C Medication Refill 04/11/2024 Telephone [facility] [address] [place] [phone] Ron Hanley, RN 03/19/2024 MyC Medical Advice [facility] [address] [facility] [address] [place] [address] Oleg Aparicio PA-C 03/15/2024 MyC Medical Advice [facility] [address] [facility] [address] [place] [address] Oleg Aparicio PA-C from Last 3 Months Immunizations Name Administration [...] on file 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 Gender Identity Not on file Sexual [...] 09/15/2023 2:37 PM CDT Plan of Treatment Upcoming Encounters Date Type Department Care Team ([facility] st Contact Info) Description 05/21/2024 3:30 PM CDT Virtual Visit [facility] [address] [facility] [address] [place] [phone] Oleg Aparicio, PABrightC [address] [facility] [address] [place] [address] Health Maintenance Due Date Last Done Comments ADVANCE CARE PLANNING 1997 ANNUAL REVIEW OF HM ORDERS 1997 YEARLY PREVENTIVE VISIT 2000 HEPATITIS C SCREENING 05/13/2015 HEPATITIS B IMMUNIZATION (1 of 3 - 19+ 3-dose series) 2016 DTAP/TDAP/TD IMMUNIZATION (1 - Tdap) 2022 COVID-19 Vaccine ( season) 2023 INFLUENZA VACCINE (#1) 2023 01/25/2022 PHQ-2 (once per calendar year) 2024 PAP 10/04/2026 10/05/2023, 10/05/2023, 12/11/2020 ZOSTER IMMUNIZATION (1 of 2) 05/13/2047 HIV SCREENING Completed 01/26/2023 CHLAMYDIA SCREENING Discontinued 07/15/2023 HPV IMMUNIZATION Aged Out No longer e ligible based on patient's age to complete this topic MENINGITIS IMMUNIZATION Aged Out No l onger eligible based on patient's age to complete this topic Pneumococcal Vaccine: Pediatrics (0 to 5 Years) and At-Risk Patients (6 to 49 Years) Aged Out No longer eligible b ased on patient's age to complete this topic Procedures Procedure Name Priority Date/Time Associated Diagnosis Comments THYROID STIMULATING HORMONE (TSH) (EXTERNAL RESULT) Routine 04/27/2024 11:00 AM CREDIT COLLECTIONS MANAGER LAB RESULT - HIM SCAN 04/27/2024 12:00 AM CREDIT COLLECTIONS MANAGER LAB RESULT - HIM SCAN 04/27/2024 12:00 AM CREDIT COLLECTIONS MANAGER CHLAMYDIA TRACHOMATIS/NEISSERI A GONORRHOEAE BY PCR STAT 07/15/2023 6:23 PM CDT HIV 1&2 ANTIBODY (EXTERNAL RESULT) Routine 01/26/2023 from Last 3 Months or Most Recently Relevant to Health Maintenance Results * Thyroid Stimulating Hormone (TSH) (External Result) (04/27/2024 11:00 AM CREDIT COLLECTIONS MANAGER) TSH (External) 0.696 0.270 - 4.20 uIU/mL [facility] Blood 04/27/2024 11:0 0 AM CREDIT COLLECTIONS MANAGER Narrative [facility] - 04/27/2024 11:00 AM CREDIT COLLECTIONS MANAGER [facility] - External Lab Results us Provider Outside LAB - HIM EXTERNAL RESULT Final Result [facility] [address] [place] [address], [place] [phone] * Lab Result - HIM Scan (04/27/2024 12:00 AM CREDIT COLLECTIONS MANAGER) Only the most recent of2 resultswithin the time period is included. 04/27/2024 us Provider Outside NON-BEAKER LAB TESTING Final Result * Chlamydia trachomatis/Neisseria gonorrhoeae by PCR (07/15/2023 6:23 PM CDT) Chlamydia Trachomatis Negative Negative 07/16/2023 12:02 PM CDT [facility] Comment: Negative for C. trachomatis rRNA by oceanography professor mediated amplification. A negative result by oceanography professor mediated amplification does not preclude the presence of infection because results are dependent on proper and adequate collection, absence of inhibitors and sufficient rRNA to be detected. Neisseria gonorrhoeae Negative Negative 07/16/2023 12:02 PM CDT [facility] Comment:Negative for N. gono rrhoeae rRNA by oceanography professor mediated amplification. A negative result by oceanography professor mediated amplification does not preclude the presence [...] [facility] [address] [facility] [place] [address] * HIV-1 Antibody (External Result) (01/26/2023) Pathologist [facility] HIV 1&2 Antibody (External) Negative Nonreactive EXTERNAL LAB Patient Reported LAB - HIM EXTERNAL RESULT Final Result EXTERNAL LAB External Lab from Last 3 Months or Most Recently Relevant to Health Maintenance Insurance [facility] [place] Advance Directives For more information, please contact: [phone] * Full Code (Latest Code Status on File) Date Activated Date Inactivated Comments 07/15/2023 7:25 PM 07/18/2023 1:55 PM All basic an d advanced life-sustaining interventions are performed as appropriate Question Answer Comments Code status determined by: Discussion with patie nt/ legal decision maker Care Teams Financial Aid Counselor Relationship Specialty Start Date End Date No Ref-Primary, Physician PCP - General 03/31/23 Oleg Aparicio, JULIAC [address] [place], [place] [phone] Assigned Cancer Care Provider 05/06/23 Ana Oreilly MD [address] [place] [address] Assigned OBGYN Provider 05/06/23
--- NOTE | 2024-05-14 10:18 | ED.GENADULT ---
HPI - General Adult General Chief complaint: Shortness of Breath/Dyspnea Stated complaint: heart racing, short of breath Time Seen by Provider: 05/14/24 10:17 History of Present Illness HPI narrative: 29 yo F with a history of pulmonary embolism (occurred during . 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 She has been consistent and therapeutic with her Eliquis recently. No missed doses. She has been a little bit ill this weekend with a mild headache but no trauma. No fever. No cough. No trouble breathing. 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 When she got up this morning she was basically feeling well. 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 No chest pain. No back pain. No cough. No fainting. She does have a garment smart watch which tracks her heart rate (but does not track an EKG tracing of her rhythm) and the watch told her that her heart rate was about 130 beats per minute. When she sat down her heart rate came down to about 110 but did not normalize. Her watch tells her that her normal baseline heart rate is at about 65. She has no history of cardiac arrhythmias. No recent travel or immobilization. No swelling in her legs. No fever. No cough. She did not have any nausea or abdominal pain. She is fairly confident she is not because she just finished her menstrual cycle last week. Now that she is here in the ER her heart rate is down and she is feeling better but still mildly short of breath. Related Data Home Medications ?Medication ?Instructions ?Recorded ?Confirmed apixaban 5 mg tablet (Eliquis) 5 mg PO BID 11/24/23 05/14/24 Previous Rx's ?Medication ?Instructions ?Recorded albuterol sulfate 90 mcg/actuation 2 puff inhalation Q4-6H PRN 01/25/24 aerosol inhaler shortness of breath or wheezing #6.7 grams hydrocortisone 2.5 % topical cream 1 applic WI BID-QID PRN 05/02/24 with perineal applicator hemorrhoids #30 grams (Anusol-HC) Allergies Allergy/AdvReac Type Severity Reaction Status Date / Time No Known Allergies Allergy Unknown Verified 05/14/24 10:10 [facility] PFS Medical History (Reviewed 03/12/24 @ 17:09 by Yessi Agosto, ENERGY PROFESSIONAL, STRATEGIC PARTNER DEVELOPMENT MANAGER) 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 (ICD-10) labor ?O60.00 - labor without delivery, unspecified trimester (ICD-10) Low back pain ?M54.50 - Low back pain, unspecified (ICD-10) History of delivery ?Z87.51 - Personal history of pre-term labor (ICD-10) Obstetric vaginal laceration with second degree perineal laceration ?O70.1 - Second degree perineal laceration during delivery (ICD-10) Inflamed external hemorrhoid ?K64.4 - Residual hemorrhoidal skin tags (ICD-10) Chest wall pain ?R07.89 - Other chest pain (ICD-10) Surgical History History of third molar tooth extraction (2016) ?K08.409 - Partial loss of teeth, unspecified cause, unspecified class (ICD-10) Family History Mother Hx of blood clots Family/Other Heart disease Breast cancer, Onset Age: 90 Paternal Grandmother Pulmonary hypertension Diabetes Paternal Grandfather Lung cancer Diabetes 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: , 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, 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 Very rare alcohol use Exercise 3 times a week, HIIT 30 minutes What is your current living situation?: I presently have a place to live Problems where you live: no known problems Problems where you live details: N/A In the past 12 months, utilities in danger of being shut off: no In past 12 months, lack of transportation kept you from medical appts, meetings, work, or getting things needed for daily living: no In the past 12 mos, have been you worried that your food would run out before you had money to buy more?: never true In the past 12 mos, the food you bought just didn't last and you didn't have money to buy more?: never true Smoking Status: Former smoker Do you use any of these nicotine containing products: None Second hand tobacco smoke exposure: No How often do you have a drink containing alcohol: never How often do you have six or more drinks on one occasion: Never AUDIT-C Alcohol total score: 0 Non-prescribed substance use: denies use How often does anyone, including family, friends and others, physically hurt you: never How often does anyone, including family, friends and others, insult or talk down to you: never How often does anyone, including family, friends and others, threaten you with harm: never How often does anyone, including family, friends and others, scream or curse at you: never service: No Exam Narrative: Exam Narrative: Constitutional: Appears well-developed and well-nourished. Alert. Conversant. Non toxic. HENT: Head: Atraumatic. Nose: Nose normal. Mouth/Throat: Oral mucosa is clear and moist. no trismus. Pharynx normal. Tonsils symmetric. No tonsillar enlargement, erythema, or exudate. Eyes: Conjunctivae normal. EOM normal. Pupils equal, round, and reactive to light. No scleral icterus. Neck: Normal range of motion. Neck supple. No tracheal deviation present. No JVD Cardiovascular: Normal rate, regular rhythm. No gallop. No friction rub. No murmur heard. Symmetric radial artery pulses Pulmonary/Chest: Effort normal. No stridor. No respiratory distress. No wheezes. No rales. No rhonchi . No tenderness. Abdominal: Soft. No distension. No mass. No tenderness. No rebound. No guarding. Musculoskeletal: RUE: Normal range of motion. No tenderness. No deformity LUE: Normal range of motion. No tenderness. No deformity RLE: Normal range of motion. No edema. No tenderness. No deformity LLE: Normal range of motion. No edema. No tenderness. No deformity Neurological: Alert and oriented to person, place, and time. Normal strength. CN II-VII intact. No sensory deficit. GCS eye subscore is 4. GCS verbal subscore is 5. GCS motor subscore is 6. Normal coordination Skin: Skin is warm and dry. No rash noted. No pallor. Normal capillary refill. Psychiatric: Normal mood. Normal affect. Const: Vital Signs, click to edit/add: Vital Signs - 24 hr 05/14/24 10:03 05/14/24 11:49 Temperature 98.2 F Pulse Rate [Right Pulse Oximeter] 90 74 Respiratory Rate 18 16 Blood Pressure [Ri ght Upper Arm] 129/80 108/68 Pulse Oximetry 97 100 Oxygen Delivery Me thod Room Air Room Air Course Vital Signs Vital signs: Initial Vital Signs Temperature 98.2 F 05/14/24 10:03 Temperature Source Temporal Artery Scan 05/14/24 10:03 Pulse Rate 90 05/14/24 10:03 Pulse Rhythm Regular 05/14/24 10:03 Pulse Strength 3+ Normal 05/14/24 10:03 Respiratory Rate 18 05/14/24 10:03 Blood Pressure 129/80 05/14/24 10:03 Blood Pressure Mean 96 05/14/24 10:03 Blood Pressure Position Sitting 05/14/24 10:03 Pulse Oximetry 97 05/14/24 10:03 Oxygen Delivery Method Room Air 05/14/24 10:03 Vital Signs Temperature 98.2 F 05/14/24 10:03 Pulse Rate 90 05/14/24 10:03 Respiratory Rate 18 05/14/24 10:03 Blood Pressure 129/80 05/14/24 10:03 Pulse Oximetry 97 05/14/24 10:03 Oxygen Delivery Method Room Air 05/14/24 10:03 Temperature 98.2 F 05/14/24 10:03 Pulse Rate 74 05/14/24 11:49 Respiratory Rate 16 05/14/24 11:49 Blood Pressure 108/68 05/14/24 11:49 Pulse Oximetry 100 05/14/24 11:49 Oxygen Delivery Method Room Air 05/14/24 11:49 Medical Decision Making MDM Narrative Medical decision making narrative: This patient presents for evaluation of an episode of racing heart shortness of breath that 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 On her smart watch she did have heart rates elevated up to about 130 and then would range from 110-130 depending on if she was sitting or standing. She has no previous history of cardiac arrhythmia but does have a known history of PE and says that her symptoms felt reminiscent of that. By the time she arrived here to the ER tachycardia had resolved. Initial ECG shows normal sinus rhythm and no dysrhythmogenic abnormality such as WPW, prolonged QT, Brugada syndrome, and no ischemia. tool design engineer while the patient here in the ER showed no dysrhythmia or ectopy. CT scan of her chest was obtained to look for possible recurrent PE and fortunately it is normal. CT is also negative for other pulmonary pathology such as pneumonia, pneumothorax, pulmonary edema. A broad differential diagnosis was considered including SVT, Atrial fibrillation, ventricular arrhythmia, thyroid disease, acute electrolyte abnormality, drugs/medications, caffeine intake or other stimulants, medication side effect, anemia, heart disease, among others. The workup and exam here in ED shows not specific cause of the patient's palpitations, and no risks factors to warrant admission. Clinical judgement suggests that supportive outpatient management is indicated. Will arrange an outpatient Holter monitor and recommend follow up with her PCP through the [facility]. Lab Data Labs: Lab Results 05/14/24 05/14/24 Range/Units 10:40 10:45 WBC 3.95 L (4.50-11.00) K/uL RBC 4.74 (4.00-5.20) m/uL Hgb 13.4 (12.0-16.0) gm/dL Hct 42.1 (33.0-51.0) % MCV 89 (80-100) fL MCH 28 (26-34) pg MCHC 32 (32-36) gm/dL RDW Coeff of Erasmo 13.5 (11.5-15.5) % Plt Count 241 (140-440) K/uL Neut % (Auto) 67.6 (42.0-72.0) % Lymph % (Auto) 23.3 (20-44) % [place] % (Auto) 7.8 (0.0-11.0) % Eos % (Auto) 0.8 (0.0-7.0) % Baso % (Auto) 0.5 (0.0-3.0) % Neut # (Auto) 2.70 (1.7-7.0) K/uL Lymph # (Auto) 0.90 (0.90-2.90) K/uL [place] # (Auto) 0.30 (0.00-0.90) K/UL Eos # (Auto) 0.00 (0.00-0.50) K/uL Baso # (Auto) 0.00 (0.00-0.30) K/uL Abs Immat Gran (auto) 0.00 (0.00-0.30) K/uL Imm/Tot Granulo (auto) 0.0 % Sodium 141 (135-149) mmol/L Potassium 4.0 (3.6-5.1) mmol/L Chloride 106 (96-114) mmol/L Carbon Dioxide 26 (20-32) mmol/L Anion Gap 9 (7-15) mEq/L BUN 18 (5-24) mg/dL Creatinine 0.6 (0.5-1.5) mg/dL Estimated Creat Clear 131.85 Estimated GFR 126 ml/min Glucose 82 (60-115) mg/dL Calcium 9.3 (8.4-10.6) mg/dL Troponin I < 0.01 (0.01-0.04) ng/mL TSH 0.622 (0.270-4.200) uIU/mL Urine HCG, Qual Negative (Negative) Imaging Data CT scan - chest: Attestation: I have reviewed the pertinent imaging results. Radiologist's impression: IMPRESSION: No acute thoracic findings. Specifically, no evidence of pulmonary embolism. ECG Data Attestation: I personally reviewed and interpreted this ECG as follows: Interpretation: Normal sinus rhythm with sinus arrhythmia Rate: WI: 73 QRS axis: 164 normal axis. No pathologic Q-waves. ST segment/T wave: Nonspecific T-wave flattening in multiple leads. No ST segment elevation depression. QTc: 425 Discharge Plan Discharge Clinical Impression: Heart palpitations, Acute dyspnea Patient Disposition: Home, Self-Care Condition: Stable Instructions: Heart Palpitations (ED) Additional Instructions: As we discussed, so far your workup looks reassuring. We do not see any sign of a blood clot in your lungs, heart attack, or other life-threatening problem at this time. We suspect you may have had a cardiac arrhythmia. Please wear the Zio patch for the next 2 weeks and send it back in. Please follow-up with your regular doctor in the primary clinic for recheck after the Zio patch to discuss the results. If you have worsening symptoms such as more episodes of racing heart, severe chest pain or shortness of breath, dizziness or fainting spells, please come back to the emergency room right away. Prescriptions: No Action Eliquis 5 mg tablet 5 mg PO BID albuterol sulfate 90 mcg/actuation HFA aerosol inhaler 2 puff inhalation Q4-6H PRN (Reason: shortness of breath or wheezing) Qty: 6.7 0RF hydrocortisone [Anusol-HC] 2.5 % cream with perineal applicator 1 applic WI BID-QID PRN (Reason: hemorrhoids) Qty: 30 0RF Follow Up/Referrals: Dianna Denise STRATEGIC PARTNER DEVELOPMENT MANAGER [Primary Care Provider] - Stand Alone Forms: [facility] Info Inst[facility]
--- NOTE | 2024-05-14 10:37 | CRLHL7_ITS ---
For Patients: As a result of the Century Cures Act, medical imaging exams and procedure reports are released immediately into your electronic medical record. You may view this report before your referring provider. If you have questions, please contact your health care provider. INDICATION: Tachycardia and shortness of breath. History of pulmonary embolism. COMPARISON: 08/24/2023 CT angiogram of the chest TECHNIQUE: CT of the chest with intravenous contrast (95 milliliters Isovue 370). The examination was performed utilizing a dedicated pulmonary angiography protocol. Reconstructed images/MIPS were created. FINDINGS: Airways: The trachea and central airways are clear. Lungs: No mass or consolidation. A few solid pulmonary micronodules are similar since at least as far back as 03/08/2023 such as a solid micronodule in the left lower lobe (5/139). Pleura: No effusion. Lymph nodes: No bulky thoracic lymphadenopathy. Heart: Normal size. Aorta: No acute findings. Pulmonary artery: Normal caliber of the main pulmonary artery. No pulmonary embolism is detected. Chest wall: Normal. Bones: No acute osseous findings. Additional findings: None. IMPRESSION: No acute thoracic findings. Specifically, no evidence of pulmonary embolism. Please note that all CT scans at this facility use dose modulation, iterative reconstruction, and/or weight-based dosing when appropriate to reduce radiation dose to as low as reasonably achievable. Dictated by Thong Quiñones MD @ 05/14/2024 11:57:13 AM (Electronically Signed)
--- OUTSIDE RECORDS SUMMARY | 2024-05-14 10:46 | XMS_ITS | Clinical Summary ---
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 Jon Vazquez MD Myoclonus Neck pain 65394992 (SNOMED CT) Active Jon Vazquez MD Neck pain Migraine, common 36434844 (SNOMED CT) Active Jon Vazquez MD Migraine without aura Migraine, menstrual 77734921 (SNOMED CT) Active Jon Vazquez MD Menstrual [...] tab as needed for neck pain tizanidine 50941355584 Jon Vazquez MD ELIQUIS 5 MG TABS TAKE 1 TABLET BY MOUTH TWICE A DAY apixaban [id number] Jon Vazquez MD TYLENOL 325 MG TABS prn acetaminophen 50504072450 Yolis Schmidt PA-C IBUPROFEN 200 MG TABS prn ibuprofen 69607381756 Yolis Schmidt PA-C TIZANIDINE HCL 4 MG TABS Take 1/2 tablet by mouth every night as directed : 1/2 tab per night then increased by 1/2 tab every 10 days until 8 mg per night or until headache or neck pain controlled. During the daytime may take 1/2 to 1 tab as needed for neck pain tizanidine 54564325106 Jon Vazquez MD SUMATRIPTAN SUCCINATE 100 MG TABS Take 1/2 tablet by mouth as directed : half tab to 1 tab at onset of headache. May repeat in 2 hour as needed up to 1.5 tabs per 24 hour. Not to exceed 9 day use per month. sumatriptan succinate 09624875810 Jon Vazquez MD Medications Administered No information [...] Procedures Code Procedure Name Date Entry Date [id number] Documentation of current medicatio ns ORDERS Follow up as needed ORDERS Follow up CATHI in clinic or telemedicine 2 ORDERS Instructions for Staff 03/08 ORDERS Follow up in clinic or telemedicine with provider or CATHI [id number] EEG EXTENDED 41-60mins (END) [id number] EEG (41min) ORDERS Patient Instructions [id number] Documentation of current medicatio ns ORDERS CBC with Diff/Platelet 01/08 ORDERS Lyme Total Ab w/Refl ex (reflex to Western Blot) ORDERS Instructions for Staff 01/08 Vital Signs Date Name Value Unit Description Heart Rate 66 /min pulse rate Immunizations No information available. Advance Directives No information available.
--- OUTSIDE RECORDS SUMMARY | 2024-05-14 10:46 | XMS_ITS | Encounter Summary ---
Author Organization [facility] Address [address] [place] [address]. 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 Gender Identity Not on file Sexual Orientation Not on file documented as of this encounter Plan of Treatment Upcoming Encounters Date Type Department Care Team (Late Contact Info) Description 05/21/2024 3:30 PM CDT Virtual Visit [facility] [address] [place] [phone] Oleg Aparicio PA-C [address] [place], [place] [address] documented as of this encounter Visit Diagnoses Not on filedocumented in this encounter Care Teams Quality Consultant Relationship Specialty Start Date End Date No Ref-Primary, Physician PCP - General 03/31/23 Oleg Aparicio, PABrightC [address] [place] [address] Assigned Cancer Care Provider 05/06/23 Ana Oreilly MD [address] [facility] [address] [place], [place] [phone] Assigned OBGYN Provider 05/06/23 documented as of this encounter
--- OUTSIDE RECORDS SUMMARY | 2024-05-14 10:46 | XMS_ITS | Encounter Summary ---
Author Organization [facility] Address [address] [place] [address]. [place] [address] Care Team Providers Care Family Support Specialist Name Role Phone No Ref-Primary, Physician Primary Care Provider Oleg Aparicio PA-C Unavailable [phone] Ana Oreilly MD Unavailable [phone] Encounter Details Date Type Department Care Team (Late st Contact Info) Description 04/28/2023 MyC Medical Advice [facility] [address] [place] [address] [address] [place] [address] Carmen Pollack RN 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 Tobacco Use Types Packs/Day Years Used Date Smoking Tobacco: Never Assessed Adolescent Education Answer Date Record ed Getting School Help Needed Not on file 11/13 Comments Yes Sex and Gender Information Value Date Recorded Sex Assigned at Not on file 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 Gender Identity Not on file Sexual Orientation Not on file documented as of this encounter Plan of Treatment Upcoming Encounters Date Type Department Care Team (Late st Contact Info) Description 05/21/2024 3:30 PM CDT Virtual Visit [facility] [address] [place] [address] Oleg Aparicio PA-C [address] [place], [place] [phone] documented as of this encounter Visit Diagnoses Not on filedocumented in this encounter Care Teams Family Support Specialist Relationship Specialty Start Date End Date No Ref-Primary, Physician PCP - General 03/31/23 Oleg Aparicio, PABrightC [facility] [address] [place] [address] Assigned Cancer Care Provider 05/06/23 Ana Oreilly MD [address] [address] [place], [place] [address] Assigned OBGYN Provider 05/06/23 documented as of this encounter
--- OUTSIDE RECORDS SUMMARY | 2024-05-14 10:46 | XMS_ITS | Encounter Summary ---
Author Organization [facility] Address [address], [place] [address] Care Team Providers Care Corporate Librarian Name Role Phone Dianna Denise Daja SAHA, ENGINEERING DIRECTOR Primary Care Provider Reason for Visit * Reason Comments Bump Encounter Details Date Type Department Care Team (Late st Contact Info) Description 04/24/2024 Telephone [facility] 3900 Ophthalmology 3900 [facility] 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 WORKER * Melony Enrique LPN - 04/24/2024 2:22 PM CST lmtcb WORKER * Leeann Caldera - 04/24/2024 2:02 PM CST Symptoms Describe your symptoms (include right eye, left eye, or both eyes): LE - cyst under cheekbone, blurred vision - does get routine eye exam at [facility] receptionist on [facility] When did they start? 2 months Are [...] will be returned the next business day.] WORKER documented in this encounter Plan of Treatment Not on file documented as of this encounter Visit Diagnoses Not on filedocumented in this encounter Care Teams Corporate Librarian Relationship Specialty Start Date End Date Dianna Denise, AUTOMOTIVE UPHOLSTERER, ENGINEERING DIRECTOR [address] [place] [address] PCP - General Nurse Practitioner 04/24/24 documented as of this encounter
--- OUTSIDE RECORDS SUMMARY | 2024-05-14 10:46 | XMS_ITS | Encounter Summary ---
Author Organization [facility] Address [address] [place] [address]. [place] [address] Care Team Providers Care Tin Pot Operator Name Role Phone No Ref-Primary, Physician Primary Care Provider Oleg Aparicio PA-C Unavailable [phone] Ana Oreilly MD Unavailable [phone] Encounter Details Date Type Department Care Team (Late st Contact Info) Description 03/15/2024 MyC Medical Advice [facility] [address] [place] [phone] Oleg Aparicio PA-C [address] [place] [address] [address] [place] [address] 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 Tobacco Use Types [...] on file 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 [address] [place], [place] [phone] documented as of this encounter Visit Diagnoses Not on filedocumented in this encounter Care Teams Tin Pot Operator Relationship Specialty Start Date End Date No Ref-Primary, Physician PCP - General 03/31/23 Oleg Aparicio PA-C [facility] [address] [address] Assigned Cancer Care Provider 05/06/23 Ana Oreilly MD [address] [facility] [address] [place], [place] [address] Assigned OBGYN Provider 05/06/23 documented as of this encounter
--- OUTSIDE RECORDS SUMMARY | 2024-05-14 10:46 | XMS_ITS | Clinical Summary ---
Author Organization [employer] [facility] Address [address] [place] [address] Care Team Providers Care Applications Support Specialist Name Role Phone Marybeth Andrew MD Primary [...] 16 Negative Negative 10/11/2023 2:17 PM CDT [facility] TYPE 18 Negative Negative 10/11/2023 2:17 PM CDT [facility] OTHER HIGH RISK TYPES Negative Negative 10/11/2023 2:17 PM CDT [facility] Other (Cervical) 10/05/2023 12:00 PM CDT 10/07/2023 8:51 AM CDT Narrative [facility] - 10/11/2023 2:17 PM CDT HPV types 16, 18, 31, 33, 35, 39, 45, 51, 52, 56, 58, 59, 66 and 68 DNA were undetectable or below the pre-set threshold. Methodology: Kendrick Lulu 4800 HPV Test us Jasmin Barrow MD MICROBIOLOGY Fi nal Result [facility] [address] [place] [address], from Last 3 Months or Most Recently Relevant to Health Maintenance Insurance [employer] Care Teams Applications Support Specialist Relationship Specialty Start Date End Date Marybeth Andrew MD [address] [place] [address] PCP - General Family Practice 08/20/22
--- OUTSIDE RECORDS SUMMARY | 2024-05-14 10:46 | XMS_ITS | Encounter Summary ---
Author Organization [employer] Address [address] [address] Care Team Providers Care Ferris Wheel Attendant Name Role Phone Dianna Denise Daja SAHA, DICTATING MACHINE TYPIST Primary Care Provider Reason for Visit * Reason Comments Eye Problem Encounter Details Date Type Department Care Team (Late st Contact Info) Description 05/04/2024 2:40 PM CDT Office Visit [facility] [address] [phone] Pauline Noel, OD [address] [place] [address] Dry eye syndrome of both eyes (Primary Dx) 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 Tobacco Use Types Packs/Day Years Used Date Smoking Tobacco: Never Assessed Comments Unknown Sex and Gender Information Value Date Recorded Sex Assigned at Not on file 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
--- OUTSIDE RECORDS SUMMARY | 2024-05-14 10:46 | XMS_ITS | Encounter Summary ---
Author Organization [facility] Address [address] [place] [address]. [place] [address] Care Team Providers Care Business Objects Architect Name Role Phone No Ref-Primary, Physician Primary Care Provider Oleg Aparicio PA-C Unavailable [phone] Ana Oreilly MD Unavailable [phone] Encounter Details Date Type Department Care Team (Late Contact Info) Description 12/19/2023 MyC Medical Advice [facility] [address] [place] [phone] Oleg Aparicio PA-C [address] [place] [address] [address] [place], [place] [phone] 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 Tobacco Use Types Packs/Day Years [...] on file 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 Gender Identity Not on file Sexual Orientation Not on file documented as of this encounter Plan of Treatment Upcoming Encounters Date Type Department Care Team (Late Contact Info) Description 05/21/2024 3:30 PM CDT Virtual Visit [facility] [address] [place] [address] [address] [place] [address] Oleg Aparicio PA-C [facility] [address] [place], [place] [phone] documented as of this encounter Visit Diagnoses Not on filedocumented in this encounter Care Teams Business Objects Architect Relationship Specialty Start Date End Date No Ref-Primary, Physician PCP - General 03/31/23 Oleg Aparicio PA-C [facility] [address] [address] Assigned Cancer Care Provider 05/06/23 Ana Oreilly MD [address] [facility] [address] [place], [place] [address] Assigned OBGYN Provider 05/06/23 documented as of this encounter
--- OUTSIDE RECORDS SUMMARY | 2024-05-14 10:46 | XMS_ITS | Encounter Summary ---
Author Organization [facility] Address [address] [place] [address]. [place] [address] Care Team Providers Care Dinkey Engine Operator Name Role Phone No Ref-Primary, Physician Primary Care Provider Oleg Aparicio PA-C Unavailable [phone] Ana Oreilly MD Unavailable [phone] Encounter Details Date Type Department Care Team (Late Contact Info) Description 09/22/2023 MyC Medical Advice [facility] [address] [place] [phone] Oleg Aparicio PA-C [address] [place] [address] [address] [place], [place] [phone] 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 Tobacco Use Types Packs/Day Years [...] on file 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 Gender Identity Not on file Sexual Orientation Not on file documented as of this encounter Plan of Treatment Upcoming Encounters Date Type Department Care Team (Late Contact Info) Description 05/21/2024 3:30 PM CDT Virtual Visit [facility] [address] [place] [address] [address] [place] [address] Oleg Aparicio PA-C [facility] [place], [place] [phone] documented as of this encounter Visit Diagnoses Not on filedocumented in this encounter Care Teams Dinkey Engine Operator Relationship Specialty Start Date End Date No Ref-Primary, Physician PCP - General 03/31/23 Oleg Aparicio PA-C [facility] [address] Assigned Cancer Care Provider 05/06/23 Ana Oreilly MD [address] [facility] [address] [place], [place] [address] Assigned OBGYN Provider 05/06/23 documented as of this encounter
--- OUTSIDE RECORDS SUMMARY | 2024-05-14 10:46 | XMS_ITS | Encounter Summary ---
Author Organization [facility] Address [address] [place] [address]. 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 Gender Identity Not on file Sexual Orientation Not on file documented as of this encounter Plan of Treatment Upcoming Encounters Date Type Department Care Team (Late Contact Info) Description 05/21/2024 3:30 PM CDT Virtual Visit [facility] [address] [place] [phone] Oleg Aparicio PA-C [address] [place], [place] [address] documented as of this encounter Visit Diagnoses Not on filedocumented in this encounter Care Teams Assistant Professor Of German Relationship Specialty Start Date End Date No Ref-Primary, Physician PCP - General 03/31/23 Oleg Aparicio, PABrightC [address] [place] [address] Assigned Cancer Care Provider 05/06/23 Ana Oreilly MD [address] [facility] [address] [place], [place] [phone] Assigned OBGYN Provider 05/06/23 documented as of this encounter
--- OUTSIDE RECORDS SUMMARY | 2024-05-14 10:46 | XMS_ITS | Encounter Summary ---
Author Organization [facility] Address [address] [place] [address]. [place] [address] Care Team Providers Care Oil Well Pumper Name Role Phone No Ref-Primary, Physician Primary Care Provider Oleg Aparicio PA-C Unavailable [phone] Ana Oreilly MD Unavailable [phone] Encounter Details Date Type Department Care Team (Late Contact Info) Description 03/19/2024 MyC Medical Advice [facility] [address] [place] [phone] Oleg Aparicio PA-C [address] [place] [address] [address] [place], [place] [phone] 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 Tobacco Use Types Packs/Day Years [...] on file 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 Gender Identity Not on file Sexual Orientation Not on file documented as of this encounter Plan of Treatment Upcoming Encounters Date Type Department Care Team (Late Contact Info) Description 05/21/2024 3:30 PM CDT Virtual Visit [facility] [address] [place] [address] 105 [place] [address] Oleg Aparicio PA-C [facility] [place], [place] [phone] documented as of this encounter Visit Diagnoses Not on filedocumented in this encounter Care Teams Oil Well Pumper Relationship Specialty Start Date End Date No Ref-Primary, Physician PCP - General 03/31/23 Oleg Aparicio PA-C [facility] [address] Assigned Cancer Care Provider 05/06/23 Aan Oreilly MD [address] [facility] [address] [place], [place] [address] Assigned OBGYN Provider 05/06/23 documented as of this encounter
--- OUTSIDE RECORDS SUMMARY | 2024-05-14 10:47 | XMS_ITS | Encounter Summary ---
Author Organization [facility] Address [address] [place] [address]. [place] [address] Care Team Providers Care Scientific Informatics Leader Name Role Phone No Ref-Primary, Physician Primary Care Provider Oleg Aparicio PA-C Unavailable [phone] Ana Oreilly MD Unavailable [phone] Encounter Details Date Type Department Care Team (Late st Contact Info) Description 04/11/[address] 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 Ron WEBER RN [facility] Office: [phone] Clinic: [phone] E SUPERVISOR * Telephone Encounter - Ron Hanley RN - 04/13/2024 10:28 AM CST Called and spoke with Gabrielle and relayed recommendations from RUPAL Aparicio. Gabrielle is in agreement with plan and does not feel the need to come in for an office visit until August if Oleg is OK with this. Called Dr. Maldonado's ENT practice at [facility] to confirm that he is okay with this plan. He is out until 04/17 so his team will me back once he returns. Ron WEBER RN [facility] Office: [phone] Clinic: [phone] E SUPERVISOR * Telephone Encounter - Ron Hanley RN - 04/11/2024 3:37 PM CST [id number] Gabrielle Chavo Mcmahon 28 year old female CBCD Diagnosis: PE CBCD Provider: RUPAL Aparicio Incoming call from Gabrielle who recently met with her ENT Dr. Rocky Maldonado with [facility]. Patient has been having issues with her [...] and to ENT clinic. Ron WEBER RN [facility] Office: [phone] Clinic: [phone] E SUPERVISOR documented in this encounter Plan of Treatment Upcoming Encounters Date Type Department Care Team (Late st Contact Info) Description 05/21/2024 3:30 PM CDT Virtual Visit [facility] [address] [facility] [address] [place] [phone] Oleg Aparicio PA-C [address] [place], [place] [phone] documented as of this encounter Visit Diagnoses Not on filedocumented in this encounter Care Teams Scientific Informatics Leader Relationship Specialty Start Date End Date No Ref-Primary, Physician PCP - General 03/31/23 Oleg Aparicio PA-C [address] [place] [address] Assigned Cancer Care Provider 05/06/23 Ana Oreilly MD [address] [place], [place] [phone] Assigned OBGYN Provider 05/06/23 documented as of this encounter
--- OUTSIDE RECORDS SUMMARY | 2024-05-14 10:47 | XMS_ITS | Clinical Summary ---
Author Organization [facility] Address [address], [place] [address] Care Team Providers Care Building Tech Name Role Phone Dianna Denise Daja SAHA, PATEL Primary Care Provider Source Comments You are receiving this document as you are listed as the primary care provider,follow-up provider, or the patient has been referred to you for consultation.This is in compliance with the Medicare and[facility] Hospital[facility] EHR Incentive Program,which states Providers who transition their patient to another setting of careor provider of care or refers their patient to another provider of care shouldprovide summary care record for each transition of care or referral. [facility] Medications ELIQUIS 5 MG tablet Take 1 [...] Description 05/04/2024 2:40 PM CDT Office Visit [facility] [address] [phone] Pauline Noel A, OD Dry eye syndrome of both eyes (Primary Dx) 04/24/2024 Telephone [facility] 3900 Ophthalmology [address] [place] [facility] [place] [address] Self-Referral, Patient, MD [place] from Last 3 Months 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 Tobacco Use Types Packs/Day Years Used Date Smoking Tobacco: Never Assessed Comments Unknown Sex and Gender Information Value Date Recorded Sex Assigned at Not on file Legal Sex Female 1:58 PM SPREADER Gender Identity Not on file Sexual Orientation [...] patient's age to complete this topic Insurance [facility] Care Teams Building Tech Relationship Specialty Start Date End Date Dianna Denise, DIGITAL COMPOSER, FINISHED YARN EXAMINER [address] [place] [address] PCP - General Nurse Practitioner 04/24/24
--- OUTSIDE RECORDS SUMMARY | 2024-05-14 10:47 | XMS_ITS | Encounter Summary ---
Author Organization [place] Address [address] [facility] [place] [address] Care Team Providers Care Sales Executive Insurance Name Role Phone No Ref-Primary, Physician Primary Care Provider Oleg Aparicio PA-C Unavailable [phone] Ana Oreilly MD Unavailable [phone] Reason for Visit * Reason Comments Medication Refill Encounter Details Date Type Department Care Team ([facility] st Contact Info) Description 04/18/2024 Refill [facility] [address] 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 Patient would like to keep appointment for April of this year. Prescription updated and refill given to last until follow up appt. Ron WEBER RN [facility] for Bleeding [facility] Clotting Disorders Office: [phone] Clinic: [phone] FACTURING GROUP LEADER documented in this encounter Plan of Treatment Upcoming Encounters Date Type Department Care Team (Late st Contact Info) Description 05/21/2024 3:30 PM CDT Virtual Visit [facility] [address] [place] [phone] Oleg Aparicio PA-C [address] [place], [place] [address] documented as of this encounter Visit Diagnoses Diagnosis History of pulmonary embolism Personal history of pulmonary embolism Family history of blood clots Family history of other blood disorders Antithrombin III deficiency Primary hypercoagulable state documented in this encounter Care Teams Sales Executive Insurance Relationship Specialty Start Date End Date No Ref-Primary, Physician PCP - General 03/31/23 Oleg Aparicio PA-C [address] [place], [place] [address] Assigned Cancer Care Provider 05/06/23 Ana Oreilly MD [address] [place], [place] [address] Assigned OBGYN Provider 05/06/23 documented as of this encounter
--- OUTSIDE RECORDS SUMMARY | 2024-05-14 10:47 | XMS_ITS | Encounter Summary ---
Author Organization [place] Address [address] [facility] 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 Encouraged her to follow up with PCP in the future monitor iron. Karen WEBER RN [facility] for Bleeding [facility] Clotting Disorders Office: [phone] Clinic: [phone] * Telephone Encounter - Karen Vazquez RN - 04/30/2024 1:43 PM CDT [id number] Gabrielle Mcmahon 28 year old female CBCD Diagnosis: PE CBCD Provider: RPUAL Aparicio Incoming call from [facility] stating she has been fatigued lately and [...] for heavy menstrual bleeding. Karen WEBER RN [facility] for [facility]ot[facility] Disorders Office: [phone] Clinic: [phone] * Addendum Note - Karen Vazquez RN - 04/30/2024 1:43 PM CDTAddended by: KAREN VAZQUEZ on: 04/30/2024 04:09 PM Modules accepted: Orders documented in this encounter Plan of Treatment Upcoming Encounters Date Type Department Care Team (Late st Contact Info) Description 05/21/2024 3:30 PM CDT Virtual Visit [facility] [address] [facility] [address] [place] [address] Oleg Aparicio PA-C [address] [place] [address] [address] [place], [place] [address] documented as of this encounter Visit Diagnoses Diagnosis History of pulmonary embolism- Primary Personal history of pulmonary embolism Fatigue Other malaise and fatigue documented in this encounter Care Teams Network Lead Relationship Specialty Start Date End Date No Ref-Primary, Physician PCP - General 03/31/23 Oleg Aparicio PA-C [address] [place] [address] [address] [place], [place] [address] Assigned Cancer Care Provider 05/06/23 Ana Oreilly MD [address] [facility] [address] [place], [place] [address] Assigned OBGYN Provider 05/06/23 documented as of this encounter
--- OUTSIDE RECORDS SUMMARY | 2024-05-14 10:47 | XMS_ITS | Clinical Summary ---
Author Organization [place] Address [address] [facility] [place] [address] Care Team Providers Care Surgeon'S Assistant Name Role Phone No Ref-Primary, Physician Primary Care Provider Oleg Aparicio PA-C Unavailable [phone] Ana Oreilly MD Unavailable [phone] Allergies No known active allergies Medications [...] Type Department Care Team Description 04/30/2024 Telephone [facility] [address] [facility] [address] [place] [address] Ron Hanley, RN 04/18/2024 Refill [facility] [address] [place] [address] [address] [place] [address] Oleg Aparicio PA-C Medication Refill 04/11/2024 Telephone [facility] [address] [place] [phone] Ron Hanley, RN 03/19/2024 MyC Medical Advice [facility] [address] [facility] [address] [place] [address] Oleg Aparicio PA-C 03/15/2024 MyC Medical Advice [facility] [address] 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 [address] [facility] [address] [place] [phone] Oleg Aparicio, PABrightC [address] [facility] [address] [place] [address] Health Maintenance Due Date Last Done Comments [...] (TSH) (EXTERNAL RESULT) Routine 04/27/2024 11:00 AM TANK STORAGE SUPERVISOR LAB RESULT - HIM SCAN 04/27/2024 12:00 AM TANK STORAGE SUPERVISOR LAB RESULT - HIM SCAN 04/27/2024 12:00 AM TANK STORAGE SUPERVISOR CHLAMYDIA TRACHOMATIS/NEISSERI A GONORRHOEAE BY PCR STAT 07/15/2023 6:23 PM CDT HIV 1&2 ANTIBODY (EXTERNAL RESULT) Routine 01/26/2023 from Last 3 Months or Most Recently Relevant to Health Maintenance Results * Thyroid Stimulating Hormone (TSH) (External Result) (04/27/2024 11:00 AM TANK STORAGE SUPERVISOR) TSH (External) 0.696 0.270 - 4.20 uIU/mL [facility] Blood 04/27/2024 11:0 0 AM TANK STORAGE SUPERVISOR Narrative [facility] - 04/27/2024 11:00 AM TANK STORAGE SUPERVISOR [facility] - External Lab Results us Provider Outside LAB - HIM EXTERNAL RESULT Final Result [facility] [address] [place] [address], [facility] [phone] * Lab Result - HIM Scan (04/27/2024 12:00 AM TANK STORAGE SUPERVISOR) Only the most recent of2 resultswithin the time period is included. 04/27/2024 us Provider Outside NON-BEAKER LAB TESTING Final Result * Chlamydia trachomatis/Neisseria gonorrhoeae by PCR (07/15/2023 6:23 PM CDT) Chlamydia Trachomatis Negative Negative 07/16/2023 12:02 PM CDT [facility] Comment: Negative for C. trachomatis rRNA by finished goods inspector mediated amplification. A negative result by finished goods inspector mediated amplification does not preclude the presence of infection because results are dependent on proper and adequate collection, absence of inhibitors and sufficient rRNA to be detected. Neisseria gonorrhoeae Negative Negative 07/16/2023 12:02 PM CDT [facility] Comment:Negative for N. gono rrhoeae rRNA by finished goods inspector mediated amplification. A negative result by finished goods inspector mediated amplification does not preclude the presence of C. trachomatis infection because results are dependent on proper and adequate collection, absence of inhibitors and sufficient rRNA to be detected. Urine VOIDED URINE SPECIMEN / Unknown Non-blood Collection / Unknown 07/15/2023 6:23 PM CDT 07/15/2023 6:30 PM CDT Moira Roa MD LAB - MICRO GENERAL ORDERABLES Final Result [facility] Inf. Diseases Diag. Lab [address] [facility] [place] [address] * HIV-1 Antibody (External Result) (01/26/2023) Pathologist [facility] HIV 1&2 Antibody (External) Negative Nonreactive EXTERNAL LAB Patient Reported LAB - HIM EXTERNAL RESULT Final Result EXTERNAL LAB External Lab from Last 3 Months or Most Recently Relevant to Health Maintenance Insurance [facility] [place] Advance Directives For more information, please contact: [phone] * Full Code (Latest Code Status on File) Date Activated Date Inactivated Comments 07/15/2023 7:25 PM 07/18/2023 1:55 PM All basic an d advanced life-sustaining interventions are performed as appropriate Question Answer Comments Code status determined by: Discussion with patie nt/ legal decision maker Care Teams Surgeon'S Assistant Relationship Specialty Start Date End Date No Ref-Primary, Physician PCP - General 03/31/23 Oleg Aparicio, JULIAC [address] [place], [place] [address] Assigned Cancer Care Provider 05/06/23 Ana Oreilly MD [address] [place] [address] Assigned OBGYN Provider 05/06/23
[2024-05-14 10:55] LABS: Ur HCG Qualitative* Negative (Negative)
[2024-05-14 11:07] LABS: Basophils Percent Auto 0.5 % (0.0-3.0); Eosinophils Percent Auto 0.8 % (0.0-7.0); Hematocrit 42.1 % (33.0-51.0); Hemoglobin* 13.4 gm/dL (12.0-16.0); Lymphocytes Percent Auto 23.3 % (20-44); Mean Corpuscular HGB Conc 32 gm/dL (32-36); Mean Corpuscular Hemoglobin 28 pg (26-34); Mean Corpuscular Volume 89 fL (80-100); Monocytes Percent Auto 7.8 % (0.0-11.0); Neutrophils Percent Auto 67.6 % (42.0-72.0); Platelet Count* 241 K/uL (140-440); RDW Coefficient of Variation % 13.5 % (11.5-15.5); Red Blood Count 4.74 m/uL (4.00-5.20); White Blood Count* 3.95 K/uL (4.50-11.00)
[2024-05-14 11:13] LABS: Chloride* 106 mmol/L (96-114); Slide Review Reflex No; Sodium* 141 mmol/L (135-149)
[2024-05-14 11:16] LABS: Anion Gap 9 mEq/L (7-15); Blood Urea Nitrogen* 18 mg/dL (5-24); Carbon Dioxide* 26 mmol/L (20-32); Creatinine* 0.6 mg/dL (0.5-1.5); Est. Creatinine Clearance* 131.85; Estimated Glomerular Filt Rate 126 ml/min
[2024-05-14 11:17] LABS: Calcium* 9.3 mg/dL (8.4-10.6); Glucose* 82 mg/dL (60-115)
[2024-05-14 11:29] LABS: Troponin I* < 0.01 ng/mL (0.01-0.04)
[2024-05-14 11:49] VITALS: BP 108/68; PULSE 74; RESP 16; O2SAT 100
[2024-05-14 12:32] LABS: TSH With Reflex to FT4* 0.622 uIU/mL (0.270-4.200)
== END 2024-05-14 12:39 | disposition home or self-care (01) ==
PROVIDERS: Emergency Provider Emergency Medicine; PCP Nurse Practitioner Family
DX: R00.2 Palpitations (principal); R06.00 Dyspnea, unspecified
CPT/HCPCS: 36415; 71275; 80048; 81025; 84443; 84484; 85025; 93005; 99283; 99284; 99285; Q9967

== ENCOUNTER 2024-05-29 15:30 | Outpatient (RCR) | payer BC, SELFPAY | END 2024-09-04 13:55 | disposition home or self-care (01) | PROVIDERS: PCP Nurse Practitioner Family; Visit Provider Registered Nurse | DX: M54.50 Low back pain, unspecified (principal); R07.89 Other chest pain; M25.512 Pain in left shoulder; M25.511 Pain in right shoulder; Z51.89 Encounter for other specified aftercare | CPT/HCPCS: 97110; 97112; 97140; 97161 ==

== ENCOUNTER 2024-06-19 07:14 | Outpatient (CLI) | payer BC, SELFPAY ==
--- NOTE | 2024-06-19 07:15 | CRLHL7_ITS ---
For Patients: As a result of the Cures Act, medical imaging exams and procedure reports are released immediately into your electronic medical record. You may view this report before your referring provider. If you have questions, please contact your health care provider. INDICATION: First trimester scan, establish dates. COMPARISON: None. TECHNIQUE: Real-time armstrong-scale imaging of the pelvis was performed. FINDINGS: Sonographic imaging demonstrates a single living intrauterine gestation. The embryo demonstrates a regular cardiac rate measuring 113 beats per minute. The embryo`s crown-rump length measurement of 4.3 cm corresponds to a gestational age of 6 weeks 1 day with a sonographic due date of 02/11/2025. There is a normal-appearing yolk sac. There are no gross abnormalities noted within the embryo at this early state of development. The gestational sac has a normal appearance. There is a 1.9 x 0.5 x 0.6 cm perigestational hemorrhage. The amount of fluid within the sac appears appropriate for gestational age. The cervix is closed. The myometrium appears normal. Normal right ovary. Left ovary not visualized. There are no suspicious fluid collections noted in the cul-de-sac. IMPRESSION: Single living intrauterine measuring 6 weeks 1 day and sonographic due date of 02/11/2025. Subchorionic hemorrhage measuring 1.9 x 0.5 x 0.6 cm. Dictated by Warner Ortiz MD @ 06/19/2024 1:07:34 PM (Electronically Signed)
== END 2024-06-19 07:15 | disposition home or self-care (01) ==
LOC: US 07:15
PROVIDERS: PCP Nurse Practitioner Family; Visit Provider Obstetrics & Gynecology
DX: Z34.91 Encounter for supervision of normal pregnancy, unspecified, first trimester (principal); O20.9 Hemorrhage in early pregnancy, unspecified; Z3A.01 Less than 8 weeks gestation of pregnancy
CPT/HCPCS: 76817; 83021; 86592; 86703; 86704; 86706; 86762; 86787; 86803; 86850; 86900; 86901; 87086; 87340; 87491; 87591

== ENCOUNTER 2024-08-28 10:31 | Outpatient (CLI) | payer BC, SELFPAY ==
--- NOTE | 2024-08-28 11:30 | CRLHL7_ITS ---
For Patients: As a result of the Cures Act, medical imaging exams and procedure reports are released immediately into your electronic medical record. You may view this report before your referring provider. If you have questions, please contact your health care provider. OBSTETRICAL ULTRASOUND TRANSABDOMINAL AND TRANSVAGINAL, 08/28/2024 INDICATION: History of labor, circumvallate placenta, and history of PE. CLINICAL HISTORY: GALA by LMP: 02/09/2025 Gestational Age: 16 weeks 3 days COMPARISON: 08/09/2024, 06/19/2024. TECHNIQUE: Real-time armstrong-scale transabdominal and transvaginal imaging of the fetus was performed. Transvaginal imaging was performed for better visualization of the cervix. FINDINGS: Fetus: Single Cervix: Visualized, transvaginal: 3.5 cm positioning: Multiple Amniotic Fluid: Within normal limits Placenta technique: Transabdominal Placenta position: Anterior heart rate: 149 bpm IMPRESSION: Transabdominal and transvaginal imaging performed. Cervix is closed and measures 3.5 cm. Circumvallate placenta again noted. No previa. WARNER RICHARD M.D. Diagnostic Radiologist [email or web address] Transcribed: 12:[address]/Dictated by: Warner Richard MD @ 08/28/2024 11:41:00 AM (Electronically Signed)
== END 2024-08-28 10:32 | disposition home or self-care (01) ==
LOC: US 10:31
PROVIDERS: PCP Nurse Practitioner Family; Visit Provider Obstetrics & Gynecology
DX: O43.112 Circumvallate placenta, second trimester (principal); Z87.59 Personal history of other complications of pregnancy, childbirth and the puerperium; Z87.51 Personal history of pre-term labor; Z86.711 Personal history of pulmonary embolism; Z3A.16 16 weeks gestation of pregnancy
CPT/HCPCS: 76815; 76817

== ENCOUNTER 2024-09-11 10:38 | Outpatient (CLI) | payer BC, SELFPAY ==
--- NOTE | 2024-09-11 10:45 | CRLHL7_ITS ---
For Patients: As a result of the Century Cures Act, medical imaging exams and procedure reports are released immediately into your electronic medical record. You may view this report before your referring provider. If you have questions, please contact your health care provider. INDICATION: Cervical check, history of labor TECHNIQUE: Ultrasound OB pelvis transabdominal with transvaginal imaging of the cervix. Real-time armstrong-scale imaging of the fetus was performed as well as color Doppler and spectral Doppler analysis of the umbilical artery. COMPARISON: Ob ultrasound 08/28/2024 FINDINGS: Barnett intrauterine . heart rate: 150 beats per minute. Presentation: Cephalic. Placenta: Anterior, circumvallate. Amniotic fluid deepest pocket: 4.5 cm. Cervix: 3.8 centimeters, closed IMPRESSION.: Barnett intrauterine in cephalic presentation. Cardiac activity is present. Anterior and circumvallate placenta. Normal and closed cervix. Normal amniotic fluid. Dictated by Jaimie Nice MD @ 09/13/2024 2:28:27 PM (Electronically Signed)
== END 2024-09-11 10:39 | disposition home or self-care (01) ==
LOC: US 10:38
PROVIDERS: PCP Nurse Practitioner Family; Visit Provider Obstetrics & Gynecology
DX: O09.219 Supervision of pregnancy with history of pre-term labor, unspecified trimester (principal)
CPT/HCPCS: 76816; 76817

== ENCOUNTER 2024-09-11 13:34 | Outpatient (CLI) | payer BC, SELFPAY | END 2024-09-11 13:35 | disposition home or self-care (01) | LOC: FRMREF 13:35 | PROVIDERS: PCP Nurse Practitioner Family; Visit Provider Obstetrics & Gynecology | DX: D68.59 Other primary thrombophilia (principal) | CPT/HCPCS: 85520 ==

== ENCOUNTER 2024-09-26 09:19 | Outpatient (CLI) | payer BC, SELFPAY | END 2024-09-26 09:20 | disposition home or self-care (01) | LOC: US 09:19 | PROVIDERS: PCP Nurse Practitioner Family; Visit Provider Obstetrics & Gynecology | DX: Z87.59 Personal history of other complications of pregnancy, childbirth and the puerperium (principal); Z86.711 Personal history of pulmonary embolism; Z3A.20 20 weeks gestation of pregnancy | CPT/HCPCS: 76811; 76817 ==

== ENCOUNTER 2024-10-02 10:46 | Outpatient (CLI) | payer BC, SELFPAY | END 2024-10-02 10:47 | disposition home or self-care (01) | LOC: NFLDREF 10:47 | PROVIDERS: PCP Nurse Practitioner Family; Visit Provider Obstetrics & Gynecology | DX: R10.2 Pelvic and perineal pain (principal); N39.0 Urinary tract infection, site not specified | CPT/HCPCS: 87086 ==

== ENCOUNTER 2024-10-02 10:51 | Outpatient (CLI) | payer BC, SELFPAY | END 2024-10-02 10:52 | disposition home or self-care (01) | LOC: FRMREF 10:53 | PROVIDERS: PCP Nurse Practitioner Family; Visit Provider Obstetrics & Gynecology | DX: D68.59 Other primary thrombophilia (principal) | CPT/HCPCS: 85520 ==

== ENCOUNTER 2024-10-09 10:13 | Outpatient (CLI) | payer BC, SELFPAY ==
--- NOTE | 2024-10-09 10:45 | CRLHL7_ITS ---
For Patients: As a result of the Cures Act, medical imaging exams and procedure reports are released immediately into your electronic medical record. You may view this report before your referring provider. If you have questions, please contact your health care provider. OB ULTRASOUND FOLLOW-UP CERVIX TRANSABDOMINAL AND TRANSVAGINAL Clinical History: LMP: 05/05/2024. GALA by LMP: 02/09/2025. GA: 22 w, 3 d. Single. INDICATION: Circumvallate placenta, second trimester. TECHNIQUE: Real time armstrong scale imaging of the fetus was performed. Transabdominal and transvaginal imaging performed. CERVIX: Visualized. Transvaginal measurement: 3.0 cm. POSITIONING: Breech. AMNIOTIC FLUID: 4.8 cm SDP (N: greater than 2 x 1 cm) PLACENTA: Technique: Transabdominal. PLACENTA POSITION: Anterior. DOPPLER: heart rate: 142 bpm. IMPRESSION: Transvaginal measurement of the cervix performed. Cervix is closed and measures 3.0 cm. No funneling or endocervical fluid. Warner Ortiz M.D. Diagnostic Radiologist [email or web address] SP/Dictated by: Warner Ortiz MD @ 10/10/2024 5:28:00 PM (Electronically Signed)
== END 2024-10-09 10:14 | disposition home or self-care (01) ==
LOC: US 10:14
PROVIDERS: PCP Nurse Practitioner Family; Visit Provider Obstetrics & Gynecology
DX: O43.112 Circumvallate placenta, second trimester (principal); Z3A.22 22 weeks gestation of pregnancy
CPT/HCPCS: 76816; 76817

== ENCOUNTER 2024-10-15 08:14 | Outpatient (CLI) | payer BC, SELFPAY ==
--- NOTE | 2024-10-15 08:15 | CRLHL7_ITS ---
For Patients: As a result of the Century Cures Act, medical imaging exams and procedure reports are released immediately into your electronic medical record. You may view this report before your referring provider. If you have questions, please contact your health care provider. OB ULTRASOUND GALA by LMP or US: 02/09/2025. GA: 23 w, 2 d. Single. Comparison: Ultrasound 10/09/2024, 09/26/2024, 09/11/2024, 08/28/2024. INDICATION: Pre-term delivery. TECHNIQUE: Real time grayscale imaging of the fetus was performed. Transabdominal and transvaginal. Transvaginal imaging performed to better demonstrate the cervix. CERVIX: Visualized. TV Measurement: 3.0 cm. POSITIONING: Transverse. AMNIOTIC FLUID: 4.9 cm. SDP (N: greater than 2 x 1 cm) PLACENTA: Technique: Transabdominal. PLACENTA POSITION: Anterior. DOPPLER: heart rate: 145 bpm. IMPRESSION: Transabdominal and transvaginal ultrasound performed. Closed cervix measuring 3.0 cm. Transverse position, head maternal right. There is a portion of the cord between the fetus and the internal cervical os which requires followup in the third trimester. Warner Ortiz M.D. Diagnostic Radiologist [email or web address] baker/Dictated by: Warner Ortiz MD @ 10/15/2024 8:57:00 AM (Electronically Signed)
== END 2024-10-15 08:15 | disposition home or self-care (01) ==
LOC: US 08:14
PROVIDERS: PCP Nurse Practitioner Family; Visit Provider Obstetrics & Gynecology
DX: O09.212 Supervision of pregnancy with history of pre-term labor, second trimester (principal); Z3A.23 23 weeks gestation of pregnancy
CPT/HCPCS: 76816; 76817

== ENCOUNTER 2024-11-22 12:12 | Outpatient (CLI) | payer BC, SELFPAY | END 2024-11-22 12:13 | disposition home or self-care (01) | LOC: NFLDREF 11-27 01:51 | PROVIDERS: PCP Nurse Practitioner Family; Referring Provider Nurse Practitioner Family; Visit Provider Obstetrics & Gynecology | DX: Z34.93 Encounter for supervision of normal pregnancy, unspecified, third trimester (principal); Z3A.28 28 weeks gestation of pregnancy | CPT/HCPCS: 86592 ==

== ENCOUNTER 2024-11-22 12:14 | Outpatient (CLI) | payer BC, SELFPAY ==
--- NOTE | 2024-11-22 12:15 | CRLHL7_ITS ---
For Patients: As a result of the Century Cures Act, medical imaging exams and procedure reports are released immediately into your electronic medical record. You may view this report before your referring provider. If you have questions, please contact your health care provider. OBSTETRICAL ULTRASOUND ??? FOLLOW-UP INDICATION: History of labor, circumvallate placenta. CLINICAL HISTORY: GALA by LMP: 02/09/2025 Gestational Age: 28 weeks 5 days COMPARISON: 10/15/2024, 10/09/2024, 09/26/2024. TECHNIQUE: Real-time armstrong-scale transabdominal imaging of the fetus was performed. FINDINGS: Fetus: Single Cervix: Not visualized positioning: Vertex Amniotic Fluid: 5.0 cm SDP Placenta technique: Transabdominal Placenta position: Anterior heart rate: 135 bpm BIOMETRY: BPD: 7.6 cm, 30 weeks 3 days, 87.2% HC: 28.5 cm, 31 weeks 2 days, 89.2% AC: 26.6 cm, 30 weeks 5 days, 91.6% FL: 5.5 cm, 29 weeks 0 days, 43.7% FL/AC Ratio: 20.72% HC/AC ratio: 1.07 EFW: 1528 grams; 3 lbs. 6 oz. age by this ultrasound: 30 weeks 3 days GALA by this ultrasound: 01/28/2025 Percentile by GALA: 88.0% IMPRESSION: 1. Sonographic gestational age is 30 weeks 3 days and sonographic due date is 01/28/2025. Sonographic age is 12 days ahead of the clinical age. 2. Estimated weight is 88th percentile. Abdominal circumference is 92nd percentile. WARNER RICHARD M.D. Diagnostic Radiologist [email or web address] Transcribed: 5:[address]/Dictated by: Warner Richard MD @ 11/22/2024 4:22:00 PM (Electronically Signed)
== END 2024-11-22 12:15 | disposition home or self-care (01) ==
LOC: US 12:14
PROVIDERS: PCP Nurse Practitioner Family; Visit Provider Obstetrics & Gynecology
DX: O43.113 Circumvallate placenta, third trimester (principal); O09.213 Supervision of pregnancy with history of pre-term labor, third trimester; O36.63X0 Maternal care for excessive fetal growth, third trimester, not applicable or unspecified; Z3A.28 28 weeks gestation of pregnancy
CPT/HCPCS: 76816; 86592

== ENCOUNTER 2024-11-26 08:09 | Outpatient (CLI) | payer BC, SELFPAY | END 2024-11-26 08:10 | disposition home or self-care (01) | LOC: NFLDREF 11-27 13:30 | PROVIDERS: PCP Nurse Practitioner Family; Referring Provider Nurse Practitioner Family; Visit Provider Obstetrics & Gynecology | DX: Z34.92 Encounter for supervision of normal pregnancy, unspecified, second trimester (principal) | CPT/HCPCS: 82951; 82952 ==

== ENCOUNTER 2024-12-04 09:31 | Emergency (ER) | payer BC, SELFPAY ==
--- OUTSIDE RECORDS SUMMARY | 2024-10-29 13:30 | XMS_ITS | Encounter Summary ---
Author Organization [place] Address [address] [place] [address]. [place] [address] Care Team Providers Care Plastic Surgery Assistant Name Role Phone No Ref-Primary, Physician Primary Care Provider Oleg Aparicio PA-C Unavailable [phone] Racheal Bartholomew MD Unavailable [phone] Reason for Visit * Genomics (Routine) - Closed Specialty Diagnoses / Procedures Referred By Contac t Referred To Contact Diagnoses Antithrombin III deficiency Procedures Hereditary Genomics Hold For Preauthorization: Travis Mcdaniel MD [address] [facility] [address] [place] [address] Phone: tel: fax: Referral ID Status Reason Start Date Expiration Date Visits Re quested Visits Authorized [id number] Closed 10/25/2023 10/24/2024 1 1 Encounter Details Date Type Department Care Team (Late st Contact Info) Description 10/29/2024 1:30 PM CDT Lab [facility] [address] [place] [address] Antithrombin III deficiency 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 Tobacco Use Types Packs/Day Years Used Date Smoking Tobacco: Never Passive Smoke Exposure: Never Smokeless Tobacco: Never Alcohol Use Standard Drinks/Week Comments Not Currently 0 (1 standard drink = 0.6 oz pur e alcohol) Adolescent Education Answer Date Record ed Getting School Help Needed Not on file 11/13 Estimated Date of Delivery Comme nts Yes 02/09/2025 Based on last me nstrual period of 05/05/2024 Sex and Gender Information Value Date Recorded Sex Assigned at Not on file 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 Gender Identity Not on file Sexual Orientation Not on file documented as of this encounter Plan of Treatment Upcoming Encounters Date Type Department Care Team (Late st Contact Info) Description 12/21/2024 12:30 PM CDT Virtual Visit [facility] for Bleeding and Clot[facility] Disorders [address] [place] [phone] Oleg Aparicio PA-C [address] [place], [place] [address] documented as of this encounter Procedures Procedure Name Priority Date/Time Associated Diagnosis Comments LOW MOLECULAR WEIGHT HEPARIN ANTI XA LEVEL Routine 10/29/2024 1:31 PM CDT Antithrombin III deficiency documented in this encounter Results * Low Molecular Weight Heparin Anti Xa Level (10/29/2024 1:31 PM CDT) Anti Xa Low Molecular Weight 0.40 For Reference Range, See Comment IU/mL 10/29/2024 7:50 PM CDT [facility] Blood BLOOD SPECIMEN / Unknown Venipuncture / Unknown 10/29/2024 1:31 PM CDT 10/29/2024 1:35 PM CDT Narrative [facility] - 10/29/2024 7:50 PM CDT If collected 4-6 hours after administration: Adults: If administered only once daily with a dose of 1.5 mg/k.0-2.0 IU/mL. If administered twice daily with a dose of 1 mg/k.50-1.0 IU/mL. Pediatrics: If administered twice daily: 0.50-1.0 IU/mL. us Oleg Aparicio PA-C LAB - BLOOD ORDERABLES Final R esult [facility] [place] [facility] [address] [facility] [address] [place] [address] documented in this encounter Visit Diagnoses Diagnosis Antithrombin III deficiency Primary hypercoagulable state documented in this encounter Care Teams Plastic Surgery Assistant Relationship Specialty Start Date End Date No Ref-Primary, Physician PCP - General 03/31/23 Oleg Aparicio PA-C [address] [facility] [address] [place] [address] Assigned Cancer Care Provider 05/06/23 Racheal Bartholomew MD [address] [place] [address] Assigned Pediatric Specialist Provider 09/12/24 documented as of this encounter
--- OUTSIDE RECORDS SUMMARY | 2024-12-04 09:34 | XMS_ITS | Encounter Summary ---
Author Organization [place] Address [address] [facility] 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 Gender Identity Not on file Sexual Orientation Not on file documented as of this encounter Plan of Treatment Upcoming Encounters Date Type Department Care Team (Late st Contact Info) Description 12/21/2024 12:30 PM CDT Virtual Visit [facility] for Bleeding [facility] Clot[facility] Disorders [address] [place] [phone] Oleg Aparicio PA-C [address] [place] [address] documented as of this encounter Visit Diagnoses Not on filedocumented in this encounter Care Teams Repack Room Worker Relationship Specialty Start Date End Date No Ref-Primary, Physician PCP - General 03/31/23 Oleg Aparicio, PABrightC [address] [place] [address] [address] [place], [place] [address] Assigned Cancer Care Provider 05/06/23 Racheal Bartholomew MD [address] [address] [address] [place], [place] [address] Assigned Pediatric Specialist Provider 09/12/24 documented as of this encounter
--- OUTSIDE RECORDS SUMMARY | 2024-12-04 09:34 | XMS_ITS | Clinical Summary ---
Author Organization [facility] Address [address] [place] [address] Care Team Providers Care Outdoor Advertising Leasing Agent Name Role Phone Marybeth Andrew MD Primary Care Provider + Allergies No known active allergies Medications No known medications Encounters Date Type Department Care Team Description 10/12/2024 Orders Only [facility] [address] [place] [address] Geena Quijano 1 scan: (1-Ord) ZIO from Last 3 Months Social History Tobacco [...] Health Maintenance Due Date Last Done Comments Tetanus booster 2008 Depression screening for age 12+ 2009 HIV for age 15-65 2012 BMI (ht and wt on same day) for age 18+ 05/13/2015 Hepatitis C screening for ag e 18-79 05/13/2015 Hepatitis B series for 19+ ( 1 of 3 - 19+ 3-dose series) 2016 HPV series for age 9-45 (1 - 3-dose SCDM series) 2024 COVID-19 vaccine series ( - 2023- season) 2024 Influenza Vaccine (#1) 2024 Pap test for age 21-65 10/04/2026 , 10/05/2023, 12/11/2020 RSV vaccine for adults or (1 - 1-dose 75+ series) 2072 Pneumococcal series for age 6-49 Aged Out No longer eligible b ased on patient's age to complete this topic Procedures Procedure Name Priority Date/Time Associated Diagnosis Comments EXTENDED HOLTER Routine 09/27/2024 Tachycardia, unspecified HPV HIGH RISK Routine 10/05/2023 12:00 PM CDT from Last 3 Months or Most Recently Relevant to Health Maintenance Results * EXTENDED HOLTER (09/27/2024) us Dianna Manzano TRANSFORMER REPAIRER CARDIAC SERVICES ORD Claire phan Result * HPV HIGH RISK (10/05/2023 12:00 PM CDT) TYPE 16 Negative Negative 10/11/2023 2:17 PM CDT [facility] TYPE 18 Negative Negative 10/11/2023 2:17 PM CDT [facility] OTHER HIGH RISK TYPES Negative Negative 10/11/2023 2:17 PM CDT [facility] Other (Cervical) 10/05/2023 12:00 PM CDT 10/07/2023 8:51 AM CDT Narrative [facility] - 10/11/2023 2:17 PM CDT HPV types 16, 18, 31, 33, 35, 39, 45, 51, 52, 56, 58, 59, 66 and 68 DNA were undetectable or below the pre-set threshold. Methodology: Kendrick Lulu 4800 HPV Test us Jasmin Barrow MD MICROBIOLOGY Fi nal Result [facility]AL LABORATORY [address] [place] [address], from Last 3 Months or Most Recently Relevant to Health Maintenance [employer] Care Teams Outdoor Advertising Leasing Agent Relationship Specialty Start Date End Date Marybeth Andrew MD [address] [place] [address] PCP - General Family Practice 08/20/22
--- OUTSIDE RECORDS SUMMARY | 2024-12-04 09:34 | XMS_ITS | Encounter Summary ---
Author Organization [place] Address [address] [place] [address]. [place] [address] Care Team Providers Care Slot Manager Name Role Phone No Ref-Primary, Physician Primary Care Provider Oleg Aparicio PA-C Unavailable [phone] Ana Oreilly MD Unavailable [phone] Racheal Bartholomew MD Unavailable [phone] Encounter Details Date Type Department Care Team (Late st Contact Info) Description 12/19/2023 MyC Medical Advice [facility] [address] [facility] [address] [place] [address] Oleg Aparicio PA-C [address] [place] [address] Social History Tobacco Use Types [...] on file 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 Gender Identity Not on file Sexual Orientation Not on file documented as of this encounter Plan of Treatment Upcoming Encounters Date Type Department Care Team (Late Contact Info) Description 12/21/2024 12:30 PM CDT Virtual Visit [facility] [address] [facility] [address] [place] [address] Oleg Aparciio PA-C [address] [place] [address] [address] [place], [place] [address] documented as of this encounter Visit Diagnoses Not on filedocumented in this encounter Care Teams Slot Manager Relationship Specialty Start Date End Date No Ref-Primary, Physician PCP - General 03/31/23 Oleg Aparicio PA-C [address] [place] [address] [address] [place], [place] [id number] Assigned Cancer Care Provider 05/06/23 Ana Oreilly MD [address] [facility] [address] [place] [address] Assigned OBGYN Provider 05/06/23 Racheal Bartholomew MD [address] [place] [address] Assigned Pediatric Specialist Provider 09/12/24 documented as of this encounter
--- OUTSIDE RECORDS SUMMARY | 2024-12-04 09:34 | XMS_ITS | Clinical Summary ---
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 Vazquez MD Myoclonus Neck pain 25382777 (SNOMED CT) Active Jon Vazquez MD Neck pain Migraine, common 35294110 (SNOMED CT) Active Jon Vazquez MD Migraine without aura Migraine, menstrual 21327158 (SNOMED CT) Active Jon Vazquez MD Menstrual [...] tab as needed for neck pain tizanidine 04071047515 Jon Vazquez MD ELIQUIS 5 MG TABS TAKE 1 TABLET BY MOUTH TWICE A DAY apixaban [id number] Jon Vazquez MD TYLENOL 325 MG TABS prn acetaminophen [id number] Yolis Schmidt PA-C IBUPROFEN 200 MG TABS prn ibuprofen [id number] Yolis Schmidt PA-C TIZANIDINE HCL 4 MG TABS Take 1/2 tablet by mouth every night as directed : 1/2 tab per night then increased by 1/2 tab every 10 days until 8 mg per night or until headache or neck pain controlled. During the daytime may take 1/2 to 1 tab as needed for neck pain tizanidine 25617530532 Jon Vazquez MD SUMATRIPTAN SUCCINATE 100 MG TABS Take 1/2 tablet by mouth as directed : half tab to 1 tab at onset of headache. May repeat in 2 hour as needed up to 1.5 tabs per 24 hour. Not to exceed 9 day use per month. sumatriptan succinate [id number] Jon Vazquez MD Medications Administered No information [...] Procedures Code Procedure Name Date Entry Date [facility]-[id number] Documentation of current medicatio ns ORDERS Follow up as needed ORDERS Follow up CATHI in clinic or telemedicine 2 ORDERS Instructions for Staff 03/08 ORDERS Follow up in clinic or telemedicine with provider or CATHI CPT-79203 EEG EXTENDED 41-60mins (END) [id number] EEG (41min) ORDERS Patient Instructions [facility]-[id number] Documentation of current medicatio ns ORDERS CBC with Diff/Platelet 01/08 ORDERS Lyme Total Ab w/Refl ex (reflex to Western Blot) ORDERS Instructions for Staff 01/08 Vital Signs Date Name Value Unit Description Heart Rate 66 /min pulse rate Immunizations No information available. Advance Directives No information available.
--- OUTSIDE RECORDS SUMMARY | 2024-12-04 09:34 | XMS_ITS | Encounter Summary ---
Author Organization [place] Address [address] [place] [address]. 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 Script sent. Karen WATTS * Telephone Encounter - Karen Vazquez RN - 10/30/2024 12:09 PM CDT [id number] Gabrielle Mcmahon 29 year old female CBCD Diagnosis: PE, antithrombin III def CBCD Provider: RUPAL Anthony had low molecular weight heparin anti-Xa level drawn yesterday. Results came back subtherapeutic at 0.40. RUPAL Aparicio advised increasing enoxaparin dosing from 80 mg twice daily to 100 mgtwice daily. I called and talked with the patient who confirms that she took her Lovenox at 830AM yesterday morning and has not missed any doses lately. Her 1:30 PM lab draw was therefore timed correctly. Gabrielleconfirmed she has been taking 80 mg twice daily I reviewed instructions from RUPAL Aparicio to increase to 100 mg BID. She is in agreement with this plan and [facility] sent. I advised that no further anti-Xa levels need to be drawn prior to delivery unless patient is having signs or symptoms of bleeding. Karen WEBER RN [facility] Office: [phone] Clinic: [phone] * Addendum Note - Karen Vazquez RN - 10/30/2024 12:08 PM CDTAddended by: KAREN VAZQUEZ on: 10/30/2024 02:32 PM Modules accepted: Orders * Addendum Note - Luz Purdy RPH - 10/30/2024 12:08 PM CDTAddended by: LUZ PURDY on: 11/27/2024 08:24 AM Modules accepted: Orders documented in this encounter Plan of Treatment Upcoming Encounters Date Type Department Care Team (Late st Contact Info) Description 12/21/2024 12:30 PM CDT Virtual Visit [facility] [address] [place] [address] [address] [place] [address] Oleg Aparicio PA-C [address] [place] [address] documented as of this encounter Visit Diagnoses Diagnosis History of pulmonary embolism- Primary Personal history of pulmonary embolism documented in this encounter Care Teams Flux Mixer Relationship Specialty Start Date End Date No Ref-Primary, Physician PCP - General 03/31/23 Oleg Aparicio PA-C [address] [place] [address] Assigned Cancer Care Provider 05/06/23 Racheal Bartholomew MD [address] [place], [place] [address] Assigned Pediatric Specialist Provider 09/12/24 documented as of this encounter
--- OUTSIDE RECORDS SUMMARY | 2024-12-04 09:34 | XMS_ITS | Encounter Summary ---
Author Organization [place] Address [address] [place] [address]. [place] [address] Care Team Providers Care Transitional Nurse Name Role Phone No Ref-Primary, Physician Primary Care Provider Oleg Aparicio PA-C Unavailable [phone] Ana Oreilly MD Unavailable [phone] Racheal Bartholomew MD Unavailable [phone] Encounter Details Date Type Department Care Team ([facility] Contact Info) Description 08/16/2024 MyC Medical Advice [facility] [address] [place] [address] Carmen Pollack, RN Social History Tobacco Use [...] on file 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 Gender Identity Not on file Sexual Orientation Not on file documented as of this encounter Plan of Treatment Upcoming Encounters Date Type Department Care Team ([facility] Contact Info) Description 12/21/2024 12:30 PM CDT Virtual Visit [facility] [address] [facility] [address] [place] [address] Oleg Aparicio PA-C [address] [facility] [address] [place], [place] [address] documented as of this encounter Visit Diagnoses Not on filedocumented in this encounter Care Teams Transitional Nurse Relationship Specialty Start Date End Date No Ref-Primary, Physician PCP - General 03/31/23 Oleg Aparicio PA-C [address] [place] [address] [address] [place] [address] Assigned Cancer Care Provider 05/06/23 Ana Oreilly MD [address] [facility] [address] [place], [place] [address] Assigned OBGYN Provider 05/06/23 Racheal Bartholomew MD [address] [place], [place] [address] Assigned Pediatric Specialist Provider 09/12/24 documented as of this encounter
--- OUTSIDE RECORDS SUMMARY | 2024-12-04 09:34 | XMS_ITS | Encounter Summary ---
Author Organization [facility] Address [address] [place] [address]. [place] [address] Care Team Providers Care Computer Forensics Investigator Name Role Phone No Ref-Primary, Physician Primary Care Provider Oleg Aparicio PA-C Unavailable [phone] Racheal Bartholomew MD Unavailable [phone] Reason for Visit * Reason Comments Prior Authorization Enoxaparin Sodium 10 0mg/mL PA approval Encounter Details Date Type Department Care Team (Latest Contact Info) Description 11/02/2024 Documentation Only [facility] [address] [place] [phone] Glory Quintanilla RPH Prior Authorization (Enoxaparin Sodium 100... 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 Gender Identity Not on file Sexual Orientation Not on file documented as of this encounter Plan of Treatment Upcoming Encounters Date Type Department Care Team (Late st Contact Info) Description 12/21/2024 12:30 PM CDT Virtual Visit [facility] [address] [place] [address] [address] [place] [address] Oleg Aparicio PA-C [address] [place] [address] [address] [place], [place] [address] documented as of this encounter Visit Diagnoses Not on filedocumented in this encounter Care Teams Computer Forensics Investigator Relationship Specialty Start Date End Date No Ref-Primary, Physician PCP - General 03/31/23 Oleg Aparicio PA-C [address] [place] [address] [address] [place], [place] [address] Assigned Cancer Care Provider 05/06/23 Racheal Bartholomew MD [address] [place], [place] [address] Assigned Pediatric Specialist Provider 09/12/24 documented as of this encounter
--- OUTSIDE RECORDS SUMMARY | 2024-12-04 09:34 | XMS_ITS | Encounter Summary ---
Author Organization [place] Address [address] [facility] [place] [address] Care Team Providers Care Box Toe Flanger Stitchdowns Name Role Phone No Ref-Primary, Physician Primary Care Provider Oleg Aparicio PA-C Unavailable [phone] Racheal Bartholomew MD Unavailable [phone] Reason for Visit * Reason Comments Medication Refill Encounter Details Date Type Department Care Team ([facility] st Contact Info) Description 11/18/2024 Refill [facility] [address] [facility] [address] [place] [address] Oleg Aparicio PA-C [address] [facility] [address] [place], [place] [phone] Medication Refill Social History Tobacco Use Types [...] on file 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 Gender Identity Not on file Sexual Orientation Not on file documented as of this encounter Miscellaneous Notes * Telephone Encounter - Suze Graham RN - 11/19/2024 12:00 PM CDT 10/30/24 Rx was sent with 3 refills and is most current dose documented in this encounter Plan of Treatment Upcoming Encounters Date Type Department Care Team (Late st Contact Info) Description 12/21/2024 12:30 PM CDT Virtual Visit [facility] [address] [facility] [address] [place] [address] Oleg Aparicio PA-C [address] [facility] [address] [place], [place] [address] documented as of this encounter Visit Diagnoses Diagnosis History of pulmonary embolism Personal history of pulmonary embolism documented in this encounter Care Teams Box Toe Flanger Stitchdowns Relationship Specialty Start Date End Date No Ref-Primary, Physician PCP - General 03/31/23 Oleg Aparicio, RUPAL [address] [facility] [address] [place], [place] [address] Assigned Cancer Care Provider 05/06/23 Racheal Bartholomew MD [address] [place] [address] Assigned Pediatric Specialist Provider 09/12/24 documented as of this encounter
--- OUTSIDE RECORDS SUMMARY | 2024-12-04 09:34 | XMS_ITS | Encounter Summary ---
Author Organization [place] Address [address] [place] [address]. [place] [address] Care Team Providers Care Petroleum Products District Supervisor Name Role Phone No Ref-Primary, Physician Primary Care Provider Oleg Aparicio PA-C Unavailable [phone] Ana Oreilly MD Unavailable [phone] Racheal Bartholomew MD Unavailable [phone] Encounter Details Date Type Department Care Team (Late st Contact Info) Description 09/22/2023 MyC Medical Advice [facility] [address] [facility] [address] [place] [address] Oleg Aparicio PA-C [address] [place] [address] Social History Tobacco Use Types [...] on file 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 Gender Identity Not on file Sexual Orientation Not on file documented as of this encounter Plan of Treatment Upcoming Encounters Date Type Department Care Team (Late Contact Info) Description 12/21/2024 12:30 PM CDT Virtual Visit [facility] [address] [facility] [address] [place] [address] Oleg Aparicio PA-C [address] [place] [address] [address] [place], [place] [address] documented as of this encounter Visit Diagnoses Not on filedocumented in this encounter Care Teams Petroleum Products District Supervisor Relationship Specialty Start Date End Date No Ref-Primary, Physician PCP - General 03/31/23 Oleg Aparicio PA-C [address] [place] [address] [address] [place], [place] [address] Assigned Cancer Care Provider 05/06/23 Ana Oreilly MD [address] [facility] [address] [place] [address] Assigned OBGYN Provider 05/06/23 Racheal Bartholomew MD [address] [place] [address] Assigned Pediatric Specialist Provider 09/12/24 documented as of this encounter
[2024-12-04 09:35] VITALS: BP 115/77; PULSE 108; RESP 16; TEMP 36.2; O2SAT 99; BMI 26.9
--- OUTSIDE RECORDS SUMMARY | 2024-12-04 09:35 | XMS_ITS | Encounter Summary ---
Author Organization [place] Address [address] [facility] [place] [address] Care Team Providers Care Engineering Aide Name Role Phone No Ref-Primary, Physician Primary Care Provider Oleg Aparicio PA-C Unavailable [phone] Ana Oreilly MD Unavailable [phone] Racheal Bartholomew MD Unavailable [phone] Encounter Details Date Type Department Care Team (Late st Contact Info) Description 09/17/2024 Telephone [facility] [address] [facility] [address] [place] [address] Karen Vazquez, RN Social History Tobacco Use Types Packs/Day [...] on file 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 She was scheduled for 11/05 but will go today instead. She takes Lovenox at 830 AM/PM and will have her level drawn at 130pm today. Karen RN * Addendum Note - Karen Vazquez RN - 09/17/2024 8:32 AM CDTAddended by: KAREN VAZQUEZ on: 09/17/2024 09:18 AM Modules accepted: Orders documented in this encounter Plan of Treatment Upcoming Encounters Date Type Department Care Team ([facility] st Contact Info) Description 12/21/2024 12:30 PM CDT Virtual Visit [facility] [address] [facility] [address] [place] [address] Oleg Aparicio, PABrightC [address] [facility] [address] [place] [address] documented as of this encounter Results * Low Molecular Weight [...] BLOOD ORDERABLES Final R esult [facility] [address] [facility] [address] [facility], [address] [place] [address], [facility] documented in this encounter Visit Diagnoses Diagnosis Antithrombin III deficiency- Primary Primary hypercoagulable state documented in this encounter Care Teams Engineering Aide Relationship Specialty Start Date End Date No Ref-Primary, Physician PCP - General 03/31/23 Oleg Aparicio PA-C [address] [place] [address] Assigned Cancer Care Provider 05/06/23 Ana Oreilly MD [address] [place] [address] Assigned OBGYN Provider 05/06/23 Racheal Bartholomew MD [address] [place] [address] Assigned Pediatric Specialist Provider 09/12/24 documented as of this encounter
--- OUTSIDE RECORDS SUMMARY | 2024-12-04 09:35 | XMS_ITS | Encounter Summary ---
Author Organization [place] Address [address] [place] [address]. [place] [address] Care Team Providers Care Malted Milk Masher Name Role Phone No Ref-Primary, Physician Primary Care Provider Oleg Aparicio PA-C Unavailable [phone] Ana Oreilly MD Unavailable [phone] Racheal Bartholomew MD Unavailable [phone] Encounter Details Date Type Department Care Team (Late st Contact Info) Description 03/19/2024 MyC Medical Advice [facility] [address] 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 [address] [place] [address] Oleg Aparicio PA-C [address] [place] [address] [address] [place], [place] [address] documented as of this encounter Visit Diagnoses Not on filedocumented in this encounter Care Teams Malted Milk Masher Relationship Specialty Start Date End Date No Ref-Primary, Physician PCP - General 03/31/23 Oleg Aparicio PA-C [address] [place] [address] [address] [place], [place] [address] Assigned Cancer Care Provider 05/06/23 Ana Oreilly MD [address] [facility] [address] [place] [address] Assigned OBGYN Provider 05/06/23 Racheal Bartholomew MD [address] [place] [address] Assigned Pediatric Specialist Provider 09/12/24 documented as of this encounter
--- OUTSIDE RECORDS SUMMARY | 2024-12-04 09:35 | XMS_ITS | Encounter Summary ---
Author Organization [place] Address [address] [facility] 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 Gender Identity Not on file Sexual Orientation Not on file documented as of this encounter Plan of Treatment Upcoming Encounters Date Type Department Care Team (Late st Contact Info) Description 12/21/2024 12:30 PM CDT Virtual Visit [facility] [address] [place] [phone] Oleg Aparicio PABrightC [address] [place] [address] documented as of this encounter Visit Diagnoses Not on filedocumented in this encounter Care Teams Pediatric Orthodontist Relationship Specialty Start Date End Date No Ref-Primary, Physician PCP - General 03/31/23 Oleg Aparicio, JULIAC [address] [place], [place] [address] Assigned Cancer Care Provider 05/06/23 Ana Oreilly MD [address] [place], [place] [address] Assigned OBGYN Provider 05/06/23 Racheal Bartholomew MD [address] [place], [place] [phone] Assigned Pediatric Specialist Provider 09/12/24 documented as of this encounter
--- OUTSIDE RECORDS SUMMARY | 2024-12-04 09:35 | XMS_ITS | Encounter Summary ---
Author Organization [place] Address [address] [place] [address]. [place] [address] Care Team Providers Care Soda Dialyzer Name Role Phone No Ref-Primary, Physician Primary Care Provider Oleg Aparicio PA-C Unavailable [phone] Ana Oreilly MD Unavailable [phone] Racheal Bartholomew MD Unavailable [phone] Encounter Details Date Type Department Care Team (Late st Contact Info) Description 03/15/2024 MyC Medical Advice [facility] [address] [place] [address] Oelg Aparicio PA-C [address] [place] [address] Social History Tobacco Use Types [...] on file 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 Gender Identity Not on file Sexual Orientation Not on file documented as of this encounter Plan of Treatment Upcoming Encounters Date Type Department Care Team (Late Contact Info) Description 12/21/2024 12:30 PM CDT Virtual Visit [facility] [address] [place] [address] Oleg Aparicio PA-C [address] [place] [address] [address] [place], [place] [address] documented as of this encounter Visit Diagnoses Not on filedocumented in this encounter Care Teams Soda Dialyzer Relationship Specialty Start Date End Date No Ref-Primary, Physician PCP - General 03/31/23 Oleg Aparicio PA-C [address] [place] [address] [address] [place], [place] [phone] Assigned Cancer Care Provider 05/06/23 Ana Oreilly MD [address] [facility] [address] [place] [address] Assigned OBGYN Provider 05/06/23 Racheal Bartholomew MD [address] [place] [address] Assigned Pediatric Specialist Provider 09/12/24 documented as of this encounter
--- OUTSIDE RECORDS SUMMARY | 2024-12-04 09:35 | XMS_ITS | Clinical Summary ---
Author Organization [place] Address [address] [place] [address] Care Team Providers Care Construction Pit Worker Name Role Phone No Ref-Primary, Physician Primary Care Provider Oleg Aparicio PA-C Unavailable [phone] Racheal Bartholomew MD Unavailable [phone] Allergies No known active allergies Medications Vit-Fe Fumarate-FA ( VITAMIN PO) Take 1 tablet by mouth daily Active tranexamic acid (LYSTEDA) 650 MG tabletIndication s:Fatigue Take 2 tablet (1300mg) twice daily during menses. 30 tablet 1 05/01/19 25 Active Additional Information Patient not taking.Reported on 08/09/2024 apixaban ANTICOAGULANT (ELIQUIS ANTICOAGULANT) 5 MG tabletIndication s:History of pulmonary embolism,Family history of blood clots,Antithromb in III deficiency Take 1 tablet (5 mg) by mouth 2 times daily. 180 tablet 3 05/22/19 25 Active Additional Information Patient not taking.Reported on 08/09/2024 enoxaparin ANTICOAGULANT (LOVENOX) 100 MG/ML syringeIndicatio ns:History of pulmonary embolism Inject 1 mL (100 mg) subcutaneously every 12 hours. 60 mL 3 10/31/19 25 Active enoxaparin ANTICOAGULANT (LOVENOX) 80 MG/0.8ML syringeIndicatio ns:History of pulmonary embolism Inject 0.8 mLs (80 mg) subcutaneously every 12 hours. 48 mL 2 08/28/19 25 025 Discontin ued(Dose adjustmen t) Active Problems Problem Noted Date Diagnosed Date History of pulmonary embolism 05/21/2024 labor 07/15/2023 History of delivery 04/12/2023 Hyperemesis [...] on last me nstrual period of 05/05/2024 Encounters Date Type Department Care Team Description 11/18/2024 Refill [facility] [address] [address] Oleg Aparicio PA-C Medication Refill 11/02/2024 Documentation Only [facility] [address] [address] Glory Quintanilla RPH Prior Authorization (Enoxaparin Sodium 100... 10/30/2024 Telephone [facility] [address] [address] Ron Hanley RN 10/29/2024 1:30 PM CDT Lab [facility] [address] [place] [address] Antithrombin III deficiency 10/29/2024 Travel 10/07/2024 Medical Correspondence [facility] Information Management [address] [facility] [address] [place] [address] Scan, Non-Provider 10/03/2024 10:00 AM CDT Office Visit [facility] [place] [address] [place] [address] Irais Terrell MD Short cervix affecting (Primary Dx) 10/03/2024 9:06 AM CDT - 10/03/2024 11:59 PM CDT Hospital Encounter [facility] [place] [address] [facility] [facility] [address] [place] [address] Irais Terrell MD related condition, antepartum Discharge Disposition: Home or Self Care 10/03/2024 Travel 09/27/2024 Medical Correspondence [facility] Information Management [address] 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 Gender Identity Not on file Sexual Orientation Not on file Last Filed Vital Signs Vital Sign Reading Time Taken Comments Blood Pressure 106/73 08/09/2024 12:00 PM CDT Pulse 75 08/09/2024 12:00 PM CDT Temperature 36.5 C (97.7 F) 09/15/2023 2:37 PM CDT Respiratory Rate 16 08/09/2024 12:00 PM CDT Oxygen Saturation 97% 08/09/2024 12:00 PM CDT Inhaled Oxygen Concentration - - Weight 68 kg (150 lb) 05/21/2024 1:10 PM CDT Height 170.2 cm (5' 7) 05/21/2024 1:10 PM CDT Body Mass Index 23.49 05/21/2024 1:10 PM CDT Plan of Treatment Upcoming Encounters Date Type Department Care Team (Late st Contact Info) Description 12/21/2024 12:30 PM CDT Virtual Visit [facility] [address] [place] [phone] Oleg Aparicio, PABrightC [address] [place], [place] [address] Health Maintenance Due Date Last Done Comments ADVANCE CARE PLANNING 1995 ANNUAL REVIEW OF HM ORDERS 1997 YEARLY PREVENTIVE VISIT 2000 HEPATITIS C SCREENING 05/13/2015 HEPATITIS B VACCINE (1 of 3 - 19+ 3-dose series) 2016 PHQ-2 (once per calendar year) 2024 MATERNAL SCREENING DISCUSSION 07/14/2024 OBGCT (OB) 10/20/2024 COVID-19 VACCINE ( - 2024- season) 2024 INFLUENZA VACCINE (#1) 2024 01/25/2022 TDAP VACCINE () 11/10/2024 RSV VACCINE (1 - Risk 1-dose series) 12/15/2024 PAP 10/04/2026 10/05/2023, 10/05/2023, 12/11/2020 DTAP/TDAP/TD VACCINE (2 - Td or Tdap) 06/22/2033 06/23/2023 ZOSTER VACCINE (1 of 2) 05/13/2047 HIV SCREENING Completed 01/26/2023 CHLAMYDIA SCREENING Discontinued 07/15/2023 HPV VACCINE (No Doses Required) Completed MENINGITIS VACCINE Aged Out No longer eligible based on patient's age to complete this topic PNEUMOCOCCAL VACCINE: PEDIATRICS (0 to 5 YEARS) AND AT-RISK PATIENTS (6 to 49 YEARS) Aged Out No longer eligible b ased on patient's age to complete this topic Procedures Procedure Name Priority Date/Time Associated Diagnosis Comments LOW MOLECULAR WEIGHT HEPARIN ANTI XA LEVEL Routine 10/29/2024 1:31 PM CDT Antithrombin III deficiency [facility] COMPREHENSIVE SINGLE Routine 10/03/2024 10:21 AM CDT related condition, antepartum CHLAMYDIA TRACHOMATIS/NEISSERIA GONORRHOEAE BY PCR STAT 07/15/2023 [...] If administered twice daily: 0.50-1.0 IU/mL. us Olge Aparicio PA-C LAB - BLOOD ORDERABLES Final R esult [facility] [place] [facility] [address] [facility], [address] [place] [address] * [facility] Comprehensive Single (10/03/2024 10:21 AM CDT) Anatomical Region Laterality Modality Ultrasound 10/03/2024 9:14 AM CDT Impressions 10/03/2024 2:22 PM CDT IMPRESSION ----- 1. Barnett at 21w 4d gestational age. 2. No anomalies commonly detected by ultrasound were identified in the detailed anatomic survey within the limits of ultrasound. 3. Growth parameters and estimated weight were consistent with gestational age predicted by assigned GALA. 4. The amniotic fluid volume appeared normal. 5. On transvaginal imaging (performed due short cervix on previous US) the cervix appeared closed and measured 32.4 mm. 6. There was a circumvallate placenta. Narrative 10/03/2024 2:22 PM CDT Comprehensive ----- Pat. Name: GABRIELLE CLEVELAND Study Date: 10/03/2024 9:14am Pat. 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 (Transvaginal ultrasound examination was required to adequately complete the exam.). View: Sufficient ----- Barnett . Number of fetuses: 1 DATING ----- Date Details Gest. age GALA LMP 05/05/2024 21 w + 4 d 02/09/2025 Previous U/S 06/19/2024 GA, GA 6 w + 1 d 21 w + 2 d 02/11/2025 U/S 10/03/2024 based upon AC, BPD, Femur, HC 22 w + 0 d 02/06/2025 Assigned dating based on the LMP, selected on 08/09/2024 21 w + 4 d 02/09/2025 GENERAL EVALUATION ----- Cardiac activity present. FHR 144 bpm. movements: present. Presentation: breech Placenta: Circumvallate placenta, anterior, No Previa, > 2 cm from internal os Umbilical cord: 3 vessel cord Amniotic fluid: Amount of AF: normal. MVP 3.8 cm BIOMETRY ----- BPD 49.0 mm 20w 6d Hadlock OFD 73.0 mm 22w 4d Nicolaides HC 196.0 mm 21w 6d Hadlock Cerebellum tr 25.5 mm 23w 4d Nicolaides AC 176.3 mm 22w 4d 74% Hadlock Femur 38.6 mm 22w 3d Hadlock Humerus 36.0 mm 22w 4d Jojo Weight Calculation: EFW 495 g 80% Hadlock EFW (lb,oz) 1 lb 1 oz EFW by Hadlock ([id number]) Head / Face / Neck Biometry: Caltrans Equipment Operator 4.9 mm CM 5.2 mm Nasal bone 6.5 mm ANATOMY ----- The following structures appear normal: Head / Neck Cranium. Head size. Head shape. Lateral ventricles. Choroid plexus. Midline falx. Cavum septi pellucidi. Cerebellum. Cisterna magna. Parenchyma. Thalami. Vermis. Neck. Face Lips. Profile. Nose. Maxilla. Mandible. Orbits. Lens. Heart / Thorax 4-chamber view. RVOT view. LVOT view. 3-vessel view. 0-xhebia-owcxowd view. Situs. Aortic arch view. Bicaval view. Ductal arch view. Superior vena cava. Inferior vena cava. Cardiac position. Cardiac size. Cardiac rhythm. Right lung. Left lung. Diaphragm. Abdomen Abdom. wall. Cord insertion. Stomach. Kidneys. Bladder. Liver. Bowel. Genitals. Spine Cervical spine. Thoracic spine. Lumbar spine. Sacral spine. Extremities / Skeleton Arms. Right arm. Right hand. Left arm. Left hand. Legs. Right leg. Right foot. Left leg. Left foot. MATERNAL STRUCTURES ----- Cervix Visualized Appearance: Appears Closed Approach - Transvaginal: Cervical length 32.4 mm Right Ovary Visualized Left Ovary Visualized RECOMMENDATION ----- Thank-you for referring your patient for a comprehensive ultrasound. I discussed the findings on today's ultrasound with the patient. I reviewed the limitations of ultrasound both in detecting aneuploidy and structural abnormalities. Ultrasound can routinely detect 80-90% of structural abnormalities. She has not had genetic screening this , genetic screening/testing options were reviewed which she is not interested in today. She was seen in [place] last week for a comprehensive anatomy US with [facility] and at that time, the cervix appeared shortened and measured 23.6 mm. Given this, she was started on vaginal progesterone, which she has been taking. On today's US, the cervix measured 32.4 mm. At this time, I recommend continuing vaginal progesterone. Recommend repeat transvaginal US next week, which can be done in [place]. Recommend final transvaginal ultrasound by 23w6d and can be done in [place] if next cervical length measurement is stable. If cervical length remains >2.5 cm, can consider discontinuing vaginal progesterone with shared decision-making. There is no harm in continuing if she desires, however. Return to primary provider for continued care. If you have questions regarding today's evaluation or if we can be of further service, please contact the [facility]. anomalies may be present but not detected I spent a total of 15 minutes (excluding the ultrasound interpretation) on the date of this encounter including preparing to see the patient (reviewing medical records/tests), in direct ajhm-jz-[id number] contact with the patient counseling and discussing the plan of care, documenting the visit in the electronic medical record, and communicating with other health director career services and/or care coordination. Procedure Note Irais Terrell MD - 10/03/2024 Comprehensive ----- Pat. Name: GABRIELLE CLEVELAND Study Date: 10/03/2024 9:14am Pat. 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 View: Sufficient ----- Barnett . Number of fetuses: 1 DATING ----- DateDetailsGest. age GALA LMP w + 4 d 02/09/2025 Previous U/S 06/19/2024 GA, GA6 w + 1 d21 w + 2 d 02/11/2025 U/S 5based upon AC, BPD, Femur, HC22 w + 0 d 02/06/2025 Assigned dating based on the LMP, selected on w + 4 d 02/09/2025 GENERAL EVALUATION ----- Cardiac activity present. FHR 144 bpm. movements: present.Presentation: breech Placenta: Circumvallate placenta, anterior, No Previa, > 2 cm frominternal os Umbilical cord: 3 vessel cord Amniotic fluid: Amount of AF: normal. MVP 3.8 cm BIOMETRY ----- BPD 49.0mm 20w 6dHadlock OFD 73.0mm 22w 4dNicolaides HC 196.0mm 21w 6dHadlock Cerebellum tr 25.5mm 23w 4dNicolaides AC 176.3mm 22w 4d 74%Hadlock Femur 38.6mm 22w 3dHadlock Humerus 36.0mm 22w 4dJeanty Weight Calculation: EFW 495g 80%Hadlock EFW (lb,oz) 1 lb 1oz EFW by Hadlock([id number]) Head / Face / Neck Biometry: Caltrans Equipment Operator 4.9mm CM 5.2mm Nasal bone 6.5mm ANATOMY ----- The following structures appear normal: Head / Neck Cranium. Head size. Head shape.Lateral ventricles. Choroid plexus. Midline falx. Cavum septi pellucidi.Cerebellum. Cisterna magna. Parenchyma. Thalami. Vermis. Neck. Face Lips. Profile. Nose. Maxilla.Mandible. Orbits. Lens. Heart / Thorax 4-chamber view. RVOT view. LVOT view.3-vessel view. 5-kqdqvj-zxojzhv view. Situs. Aortic arch view. Bicavalview. Ductal arch view. Superior vena cava. Inferior vena cava.Cardiac position. Cardiac size. Cardiac rhythm. Right lung. Left lung.Diaphragm. Abdomen Abdom. wall. Cord insertion. Stomach.Kidneys. Bladder. Liver. Bowel. Genitals. Spine Cervical spine. Thoracic spine.Lumbar spine. Sacral spine. Extremities / Skeleton Arms. Right arm. Right hand. Left arm.Left hand. Legs. Right leg. Right foot. Left leg. Left foot. MATERNAL STRUCTURES ----- Cervix Visualized Appearance: Appears Closed Approach - Transvaginal:Cervical length 32.4 mm Right Ovary Visualized Left Ovary Visualized RECOMMENDATION ----- Thank-you for referring your patient for a comprehensive ultrasound. I discussed the findings on today's ultrasound with the patient. Ireviewed the limitations of ultrasound both in detecting aneuploidy andstructural abnormalities. Ultrasound can routinely detect 80-90% of structural abnormalities. She has not hadgenetic screening this , genetic screening/testing options werereviewed which she is not interested in today. She was seen in [place] last week for a comprehensive anatomy US [facility] and at that time, the cervix appeared shortened and measured 23.6 mm.Given this, she was started on vaginal progesterone, which she has been taking. On today'Radha, the cervix measured 32.4 mm. At this time, I recommend continuingvaginal progesterone. Recommend repeat transvaginal US next week, which can be done [facility]. Recommend final transvaginal ultrasound by 23w6d and can bedone in [place] if next cervical length measurement is stable. If cervical length remains >2.5 cm,can consider discontinuing vaginal progesterone with shareddecision-making. There is no harm in continuing if she desires, however. Return to primary provider for continued care. If you have questions regarding today's evaluation or if we can be offurther service, please contact the [facility]. anomalies may be present but not detected I spent a total of 15 minutes (excluding the ultrasound interpretation) onthe date of this encounter including preparing to see the patient(reviewing medical records/tests), in direct [id number] contact with the patient counseling and discussingthe plan of care, documenting the visit in the electronic medical record,and communicating with other health director career services and/or care coordination. IMPRESSION ----- 1. Barnett at 21w 4d gestational age. 2. No anomalies commonly detected by ultrasound were identified inthe detailed anatomic survey within the limits of prenatalultrasound. 3. Growth parameters and estimated weight were consistent withgestational age predicted by assigned GALA. 4. The amniotic fluid volume appeared normal. 5. On transvaginal imaging (performed due short cervix on previous US) thecervix appeared closed and measured 32.4 mm. 6. There was a circumvallate placenta. Jasmin Oneil MD [facility] [facility] US ORDERABLE S Edited Result - Final * Chlamydia trachomatis/Neisseria gonorrhoeae by PCR (07/15/2023 6:23 PM CDT) Chlamydia Trachomatis Negative Negative 07/16/2023 12:02 PM CDT [facility] Comment: Negative for C. trachomatis rRNA by horticulture teacher mediated amplification. A negative result by horticulture teacher mediated amplification does not preclude the presence of infection because results are dependent on proper and adequate collection, absence of inhibitors and sufficient rRNA to be detected. Neisseria gonorrhoeae Negative Negative 07/16/2023 12:02 PM CDT [facility] Comment:Negative for N. gono rrhoeae rRNA by horticulture teacher mediated amplification. A negative result by horticulture teacher mediated amplification does not preclude the presence of C. trachomatis infection because results are dependent on proper and adequate collection, absence of inhibitors and sufficient rRNA to be detected. Urine VOIDED URINE SPECIMEN / Unknown Non-blood Collection / Unknown 07/15/2023 6:23 PM CDT 07/15/2023 6:30 PM CDT Moira Roa MD LAB - MICRO GENERAL ORDERABLES Final Result [facility] Inf. Diseases Diag. Lab [address] [facility] [place] [address] * HIV-1 Antibody (External Result) (01/26/2023) Pathologist [facility] HIV 1&2 Antibody (External) Negative Nonreactive EXTERNAL LAB Patient Reported LAB - HIM EXTERNAL RESULT Final Result EXTERNAL LAB External Lab from Last 3 Months or Most Recently Relevant to Health Maintenance Insurance [facility] Advance Directives For more information, please contact: [phone] * Full Code (Latest Code Status on File) Date Activated Date Inactivated Comments 07/15/2023 7:25 PM 07/18/2023 1:55 PM All basic an d advanced life-sustaining interventions are performed as appropriate Question Answer Comments Code status determined by: Discussion with parase nt/ legal decision maker Care Teams Construction Pit Worker Relationship Specialty Start Date End Date No Ref-Primary, Physician PCP - General 03/31/23 Oleg Aparicio, PABrightC [facility] [phone] Assigned Cancer Care Provider 05/06/23 Racheal Bartholomew MD [address] [place] [address] Assigned Pediatric Specialist Provider 09/12/24
--- OUTSIDE RECORDS SUMMARY | 2024-12-04 09:35 | XMS_ITS | Encounter Summary ---
Author Organization [facility] Address [address] [place] [address]. [place] [address] Care Team Providers Care Family Day Care Provider Name Role Phone No Ref-Primary, Physician Primary Care Provider Oleg Aparicio PA-C Unavailable [phone] Ana Oreilly MD Unavailable [phone] Racheal Bartholomew MD Unavailable [phone] Encounter Details Date Type Department Care Team (Late st Contact Info) Description 04/28/2023 MyC Medical Adv[address] 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 [address] [place] [address] [address] [place] [phone] Oleg Aparicio PA-C [address] [place] [address] [address] [place], [place] [phone] documented as of this encounter Visit Diagnoses Not on filedocumented in this encounter Care Teams Family Day Care Provider Relationship Specialty Start Date End Date No Ref-Primary, Physician PCP - General 03/31/23 Oleg Aparicio, JULIAC [address] [place] [address] Assigned Cancer Care Provider 05/06/23 Ana Oreilly MD [address] [place], [place] [phone] Assigned OBGYN Provider 05/06/23 Racheal Bartholomew MD [address] [place], [place] [address] Assigned Pediatric Specialist Provider 09/12/24 documented as of this encounter
--- OUTSIDE RECORDS SUMMARY | 2024-12-04 09:35 | XMS_ITS | Encounter Summary ---
Author Organization [facility] Address [address] [facility] 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 Gender Identity Not on file Sexual Orientation Not on file documented as of this encounter Plan of Treatment Upcoming Encounters Date Type Department Care Team (Late st Contact Info) Description 12/21/2024 12:30 PM CDT Virtual Visit [facility] [address] [place] [phone] Oleg Aparicio PABrightC [address] [place] [address] documented as of this encounter Visit Diagnoses Not on filedocumented in this encounter Care Teams Video Production Specialist Relationship Specialty Start Date End Date No Ref-Primary, Physician PCP - General 03/31/23 Oleg Aparicio, JULIAC [address] [place], [place] [address] Assigned Cancer Care Provider 05/06/23 Ana Oreilly MD [address] [place], [place] [address] Assigned OBGYN Provider 05/06/23 Racheal Bartholomew MD [address] [place], [place] [address] Assigned Pediatric Specialist Provider 09/12/24 documented as of this encounter
--- OUTSIDE RECORDS SUMMARY | 2024-12-04 09:35 | XMS_ITS | Clinical Summary ---
Author Organization [facility] Address [address], [place] [address] Care Team Providers Care Caravan Park And Camping Ground Manager Name Role Phone Dianna Denise Daja SAHA, ELECTROLYSIS NEEDLE OPERATOR Primary Care Provider Source Comments You are receiving this document as you are listed as the primary care provider,follow-up provider, or the patient has been referred to you for consultation.This is in compliance with the Medicare andPremier Health[employer] EHR Incentive Program,which states Providers who transition their patient to another setting of careor provider of care or refers their patient to another provider of care shouldprovide summary care record for each transition of care or referral. [facility] [employer] 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 Gender Identity Not on file Sexual Orientation Not on file Plan of Treatment Health Maintenance Due Date Last Done Comments Cervical Cancer Screening Due 1997 Hep C Screening (Preventive Services) 1997 HIV Screening (Preventive Services) 2013 Adult Preventive Visit 05/13/2015 DTaP/Tdap/Td Vaccine (1 - Tdap) 2016 HepB Vaccine (1) 2016 HPV Vaccine (1 - 3-dose SCDM series) 2024 COVID-19 Vaccine (1 - 2023-2 5 season) 2024 Influenza Vaccine (#1) 2024 01/25/2022 Zoster/Shingles Vaccine (1 of 2) 05/13/2047 HepA Vaccine Aged Out No longer eligi ble based on patient's age to complete this topic Hib Vaccine Aged Out No longer eligi ble based on patient's age to complete this topic IPV (Polio) Vaccine Aged Out No longe r eligible based on patient's age to complete this topic MCV4 Vaccine Aged Out No longer eligi ble based on patient's age to complete this topic Meningococcal B Vaccine Aged Out No l onger eligible based on patient's age to complete this topic Pneumococcal Vaccine Aged Out No long er eligible based on patient's age to complete this topic Insurance [facility] Care Teams Caravan Park And Camping Ground Manager Relationship Specialty Start Date End Date Dianna Denise, REEL WINDER, ELECTROLYSIS NEEDLE OPERATOR [address] [place] [address] PCP - General Nurse Practitioner 04/24/24
--- NOTE | 2024-12-04 09:56 | ED.GENADULT ---
HPI - General Adult General Time Seen by Provider: 09:56 Date Seen: 12/04/24 Chief complaint: Arrhythmia/Palpitations Stated complaint: Heart palpitations Time Seen by Provider: 12/04/24 09:56 Source: patient, RN notes reviewed and other (Dr. Yusuf Lantigua) Mode of arrival: ambulatory Limitations: no limitations History of Present Illness HPI narrative: This 29-year-old female is sent over by E OB for further evaluation with some inferior and lateral precordial flipped T-waves in ST segment changes. Patient is on Lovenox 100 mg twice daily, has not missed any doses. She is currently 30 and 3 7th weeks . 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 They have been monitoring with heparin anti Xa, has been therapeutic. She noted this weekend that it took over an hour for her heart rate to come from 03/22 back down to her baseline. She feels just heaviness in her chest, like it is difficult to take a deep breath. She has had a sinus infection and does have a bit of a right-sided headache. No fevers or chills. She was sent over to the ER with her EKG changes, these were new compared to old EKGs. She has noted her legs feel little sore, has been getting night cramps. Has not had any swelling. Related Data Home Medications ?Medication ?Instructions ?Recorded ?Confirmed docosahexaenoic acid 200 mg mg PO 07/18/24 12/04/24 capsule ( DHA) enoxaparin 80 mg/0.8 mL 100 mg subcut BID 11/22/24 12/04/24 subcutaneous syringe (Lovenox) Previous Rx's ?Medication ?Instructions ?Recorded progesterone micronized 200 mg 200 mg vaginal QHS #90 caps 10/15/24 capsule (Prometrium) hydrocortisone 2.5 % topical cream 1 applic NV Q6-12H PRN hemorrhoids 10/23/24 with perineal applicator #30 grams cefuroxime axetil 250 mg tablet 250 mg PO BID 7 days #14 tabs 11/29/24 Allergies Allergy/AdvReac Type Severity Reaction Status Date / Time No Known Allergies Allergy Unknown Verified 12/04/24 09:41 Review of Systems Status of ROS: Reports: 6 or more systems reviewed and unremarkable except as noted in History and below PFSH PFS Medical History Neck pain ?M54.2 - Cervicalgia (ICD-10) 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) Elevated troponin ?R79.89 - Other specified abnormal findings of blood chemistry (ICD-10) Pelvic pain ?R10.2 - Pelvic and perineal pain (ICD-10) Musculoskeletal back pain ?M54.9 - Dorsalgia, unspecified (ICD-10) Shoulder pain ?M25.519 - Pain in unspecified shoulder (ICD-10) Migraine headache (02/24/22) ?G43.909 - Migraine, unspecified, not intractable, without status migrainosus (ICD-10) 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) ?G25.3 - Myoclonus (ICD-10) Absence seizure (12/27/21) ?G40.A09 - Absence epileptic syndrome, not intractable, without status epilepticus (ICD-10) Upper motor neuron lesion (04/12/23) ?G12.29 - Other motor neuron disease (ICD-10) Pulmonary embolism (04/12/23) ?I26.99 - Other pulmonary embolism without acute cor pulmonale (ICD-10) premature rupture of membranes, delivered, current hospitalization (04/12/23) ?O42.919 - premature rupture of membranes, unspecified as to length of time between rupture and onset of labor, unspecified trimester (ICD-10) Hyperemesis (04/12/23) ?R11.10 - Vomiting, unspecified (ICD-10) History of delivery (04/12/23) ?Z87.51 - Personal history of pre-term labor (ICD-10) 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 (ICD-10) labor ?O60.00 - labor without delivery, unspecified trimester (ICD-10) Low back pain ?M54.50 - Low back pain, unspecified (ICD-10) History of delivery ?Z87.51 - Personal history of pre-term labor (ICD-10) Obstetric vaginal laceration with second degree perineal laceration ?O70.1 - Second degree perineal laceration during delivery (ICD-10) Inflamed external hemorrhoid ?K64.4 - Residual hemorrhoidal skin tags (ICD-10) Chest wall pain ?R07.89 - Other chest pain (ICD-10) Surgical History History of third molar tooth extraction (2016) ?K08.409 - Partial loss of teeth, unspecified cause, unspecified class (ICD-10) Family History Mother Hx of blood clots Family/Other Heart disease Breast cancer, Onset Age: 90 Paternal Grandmother Pulmonary hypertension Diabetes Paternal Grandfather Lung cancer Diabetes 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: , 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, 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 Nonsmoker Very rare alcohol use Exercise 3 times a week, HIIT 30 minutes What is your current living situation?: I presently have a place to live Problems where you live: no known problems Problems where you live details: N/A In the past 12 months, utilities in danger of being shut off: no In past 12 months, lack of transportation kept you from medical appts, meetings, work, or getting things needed for daily living: no In the past 12 mos, have been you worried that your food would run out before you had money to buy more?: never true In the past 12 mos, the food you bought just didn't last and you didn't have money to buy more?: never true Smoking Status: Never smoker Do you use any of these nicotine containing products: None Second hand tobacco smoke exposure: No How often do you have a drink containing alcohol: never How often do you have six or more drinks on one occasion: Never AUDIT-C Alcohol total score: 0 Non-prescribed substance use: denies use How often does anyone, including family, friends and others, physically hurt you: never How often does anyone, including family, friends and others, insult or talk down to you: never How often does anyone, including family, friends and others, threaten you with harm: never How often does anyone, including family, friends and others, scream or curse at you: never service: No Exam Const: Vital Signs, click to edit/add: Vital Signs - 24 hr 12/04/24 09:35 12/04/24 10:02 Temperature 97.2 F L Pulse Rate [Pulse Oximeter] 108 H Respiratory Rate 16 Blood Pressure [Ri ght Upper Arm] 115/77 Pulse Oximetry 99 99 Oxygen Delivery Me thod Room Air This 29-year-old female is alert, interactive, no apparent distress, vitals reviewed. Sclera clear, face atraumatic, able speak in complete sentences. No did have a is tension noted. Lungs are clear, good air entry, no wheezing or crackles, no tachypnea, no accessory muscle use. CV regular rate and rhythm, no murmur, normal S1-S2, no S3-S4. Abdomen is gravid. She has no lower extremity edema, no overlying skin changes of her legs. Documenting provider has reviewed patient's vital signs: yes Course Course ED Course: Given her history, patient I discussed just doing the chest CT PE protocol, she does agree. She will be on pulse oximetry while here, we will have to place an IV. Will also get other labs looking at other etiologies. I did see her EKG from clinic. Will be doing troponin and proBNP. Reevaluation(s) Time of Reevaluation #1: 11:34 Reevaluation #1: Have reviewed with patient her normal workup here. The OB nurse did come down and had a reactive rhythm strip even despite being 30 weeks. Her pole sander operator did come over, we are going to allow this patient discharge to home at this time. Vital Signs Vital signs: Initial Vital Signs Temperature 97.2 F L 12/04/24 09:35 Temperature Source Temporal Artery Scan 12/04/24 09:35 Pulse Rate 108 H 12/04/24 09:35 Respiratory Rate 16 12/04/24 09:35 Blood Pressure 115/77 12/04/24 09:35 Blood Pressure Mean 89 12/04/24 09:35 Blood Pressure Position Sitting 12/04/24 09:35 Pulse Oximetry 99 12/04/24 09:35 Oxygen Delivery Method Room Air 12/04/24 09:35 Vital Signs Temperature 97.2 F L 12/04/24 09:35 Pulse Rate 108 H 12/04/24 09:35 Respiratory Rate 16 12/04/24 09:35 Blood Pressure 115/77 12/04/24 09:35 Pulse Oximetry 99 12/04/24 09:35 Oxygen Delivery Method Room Air 12/04/24 09:35 Temperature 97.2 F L 12/04/24 09:35 Pulse Rate 108 H 12/04/24 09:35 Respiratory Rate 16 12/04/24 09:35 Blood Pressure 115/77 12/04/24 09:35 Pulse Oximetry 99 12/04/24 10:02 Oxygen Delivery Method Room Air 12/04/24 09:35 Medications Administered Medications: Generic Name Dose Route Start Last Admin Trade Name Freq PRN Reason Stop Dose Admin Sodium Chloride 500 mls @ 500 mls/hr 12/04/24 10:59 12/04/24 11:11 0.9 % Sodium Chloride 500 Ml IV 12/04/24 11:58 500 mls/hr .Q1H ONE Administration Medical Decision Making Lab Data Lab results reviewed: Yes I reviewed the patient's lab results Labs: Lab Results 12/04/24 Range/Units 10:10 WBC 7.51 (4.50-11.00) K/uL RBC 3.78 L (4.00-5.20) m/uL Hgb 10.8 L (12.0-16.0) gm/dL Hct 33.1 (33.0-51.0) % MCV 88 (80-100) fL MCH 29 (26-34) pg MCHC 33 (32-36) gm/dL RDW Coeff of Erasmo 12.8 (11.5-15.5) % Plt Count 174 (140-440) K/uL Neut % (Auto) 73.1 H (42.0-72.0) % Lymph % (Auto) 16.8 L (20-44) % Josephine % (Auto) 8.8 (0.0-11.0) % Eos % (Auto) 0.3 (0.0-7.0) % Baso % (Auto) 0.3 (0.0-3.0) % Neut # (Auto) 5.50 (1.7-7.0) K/uL Lymph # (Auto) 1.30 (0.90-2.90) K/uL Josephine # (Auto) 0.70 (0.00-0.90) K/UL Eos # (Auto) 0.02 (0.00-0.50) K/uL Baso # (Auto) 0.02 (0.00-0.30) K/uL Abs Immat Gran (auto) 0.05 (0.00-0.30) K/uL Imm/Tot Granulo (auto) 0.7 % Sodium 131 L (135-149) mmol/L Potassium 3.7 (3.6-5.1) mmol/L Chloride 101 (96-114) mmol/L Carbon Dioxide 25 (20-32) mmol/L Anion Gap 5 L (7-15) mEq/L BUN 12 (5-24) mg/dL Creatinine 0.5 (0.5-1.5) mg/dL Estimated Creat Clear 158.22 Estimated GFR 132 ml/min Glucose 89 (60-115) mg/dL Calcium 8.7 (8.4-10.6) mg/dL Magnesium 1.8 (1.5-2.6) mg/dL Total Bilirubin 0.8 (0.1-1.5) mg/dL AST 21 (12-35) U/L ALT 11 (4-35) U/L Alkaline Phosphatase 79 (40-150) U/L Troponin I < 0.01 (0.01-0.04) ng/mL NT-Pro-B Natriuret Pep < 20 (See Note) pg/mL Total Protein 6.8 (6.0-8.3) g/dL Albumin 3.8 (3.3-5.0) g/dL Imaging Data CT scan - chest: Attestation: I have reviewed the pertinent imaging results. Radiologist's impression: Patient: YOON CLEVELAND Facility:?[facility] Patient ID:?[id number] Site Patient ID:?[id number]. Site :?[id number] Study:?CT-Chest Angio W/ 95CC ISOVUE-370 PE PROTOCOL-12/04/2024 10:30:18 AM Ordering Physician:Jackelyn Leos Final Report: INDICATION: Tachycardia. History of pulmonary emboli. Dyspnea. . COMPARISON: 05/14/2024 TECHNIQUE: : CT examination of the chest was performed with the uneventful intravenous administration of 95 cc of Isovue 370 while thin axial sections were obtained from above the apices of the lungs to the lung bases. The examination was timed as a pulmonary artery angiogram. 3D reformat/MIP imaging was also provided. Please note that all CT scans at this facility use dose modulation, iterative reconstruction, and/or weight-based dosing when appropriate to reduce radiation dose to as low as reasonably achievable. FINDINGS: : HEART and MEDIASTINUM: The heart size is normal. There is no mediastinal or hilar adenopathy or mass. There is no pericardial effusion. PULMONARY ARTERIAL CIRCULATION: There is no visible intraluminal filling defect to suggest pulmonary embolus. LUNGS and PLEURAL SPACES: The lungs show no focal consolidation or mass. The airways appear normal.There is no pleural effusion, pneumothorax or pleural based mass. VISUALIZED UPPER ABDOMEN: The fundus of a uterus is visualized on the bottom most images. Otherwise, the limited visualized upper abdominal structures appear normal. OSSEOUS STRUCTURES: Age-appropriate appearance. No acute fracture or destructive process. TUBES and LINES: None. IMPRESSION: No findings of pulmonary embolus. Normal exam. Please note that all CT scans at this facility use dose modulation, iterative reconstruction, and/or weight-based dosing when appropriate to reduce radiation dose to as low as reasonably achievable. Dictated by Robbi Young MD @ 12/04/2024 10:36:17 AM (Electronic Signature) Discharge Plan Discharge Clinical Impression: Chest heaviness Patient Disposition: Home, Self-Care Condition: Stable Instructions: at 31 to 34 Weeks (ED) Additional Instructions: The heaviness that you may be experiencing could be from expansion of the and decreased lung volumes. There is no evidence of any cardiac enzyme elevation, CT imaging did not show any recurrent pulmonary emboli. Continue to follow with Ob, take your Lovenox as you have been. Activity Level: Activity as Tolerated Prescriptions: No Action enoxaparin [Lovenox] 80 mg/0.8 mL syringe 100 mg subcut BID DHA 200 mg capsule PO cefuroxime axetil 250 mg tablet 250 mg PO BID 7 Days Qty: 14 0RF Patient Comments: sinus infection plans to start as just got it progesterone micronized [Prometrium] 200 mg capsule 200 mg vaginal QHS Qty: 90 1RF hydrocortisone 2.5 % cream with perineal applicator 1 applic NV Q6-12H PRN (Reason: hemorrhoids) Qty: 30 0RF Follow Up/Referrals: Dianna Denise FURNITURE FINISHER HELPER [Primary Care Provider, Family Practice] Stand Alone Forms: MyHealth Info Instructions
[2024-12-04 10:02] VITALS: O2SAT 99
--- NOTE | 2024-12-04 10:02 | CRLHL7_ITS ---
For Patients: As a result of the Century Cures Act, medical imaging exams and procedure reports are released immediately into your electronic medical record. You may view this report before your referring provider. If you have questions, please contact your health care provider. INDICATION: Tachycardia. History of pulmonary emboli. Dyspnea. . COMPARISON: 05/14/2024 TECHNIQUE: : CT examination of the chest was performed with the uneventful intravenous administration of 95 cc of Isovue 370 while thin axial sections were obtained from above the apices of the lungs to the lung bases. The examination was timed as a pulmonary artery angiogram. 3D reformat/MIP imaging was also provided. Please note that all CT scans at this facility use dose modulation, iterative reconstruction, and/or weight-based dosing when appropriate to reduce radiation dose to as low as reasonably achievable. FINDINGS: : HEART and MEDIASTINUM: The heart size is normal. There is no mediastinal or hilar adenopathy or mass. There is no pericardial effusion. PULMONARY ARTERIAL CIRCULATION: There is no visible intraluminal filling defect to suggest pulmonary embolus. LUNGS and PLEURAL SPACES: The lungs show no focal consolidation or mass. The airways appear normal.There is no pleural effusion, pneumothorax or pleural based mass. VISUALIZED UPPER ABDOMEN: The fundus of a uterus is visualized on the bottom most images. Otherwise, the limited visualized upper abdominal structures appear normal. OSSEOUS STRUCTURES: Age-appropriate appearance. No acute fracture or destructive process. TUBES and LINES: None. IMPRESSION: No findings of pulmonary embolus. Normal exam. Please note that all CT scans at this facility use dose modulation, iterative reconstruction, and/or weight-based dosing when appropriate to reduce radiation dose to as low as reasonably achievable. Dictated by Robbi Young MD @ 12/04/2024 10:36:17 AM (Electronically Signed)
--- OUTSIDE RECORDS SUMMARY | 2024-12-04 10:10 | XMS_ITS | Clinical Summary ---
Author Organization [facility] Address [address] , [address] [place] [address] Phone Care Team Providers Care Communication Center Operator Name Role Phone [facility] Unavailable Unava ilable Conditions or Problems Problem Name Problem Code Onset Date Status Entry Date Provider Comment Standard Description Annotate Staring spells 67707263 (SNOMED CT) Active Jon Vazquez MD Absence seizure Myoclonic jerk 30925326 (SNOMED CT) Active Jon Vazquez MD Myoclonus Neck pain 38672269 (SNOMED CT) Active Jon Vazquez MD Neck pain Migraine, common 68206677 (SNOMED CT) Active Jon Vazquez MD Migraine without aura Migraine, menstrual 62970249 (SNOMED CT) Active Jon Vazquez MD Menstrual [...] tab as needed for neck pain tizanidine [id number] Jon Vazquez MD ELIQUIS 5 MG TABS TAKE 1 TABLET BY MOUTH TWICE A DAY apixaban [id number] Jon Vazquez MD TYLENOL 325 MG TABS prn acetaminophen [id number] Yolis Schmidt PA-C IBUPROFEN 200 MG TABS prn ibuprofen [id number] Yolis Schmidt PA-C TIZANIDINE HCL 4 MG TABS Take 1/2 tablet by mouth every night as directed : 1/2 tab per night then increased by 1/2 tab every 10 days until 8 mg per night or until headache or neck pain controlled. During the daytime may take 1/2 to 1 tab as needed for neck pain tizanidine [id number] Jon Vazquez MD SUMATRIPTAN SUCCINATE 100 MG TABS Take 1/2 tablet by mouth as directed : half tab to 1 tab at onset of headache. May repeat in 2 hour as needed up to 1.5 tabs per 24 hour. Not to exceed 9 day use per month. sumatriptan succinate [id number] Jon Vazquez MD Medications Administered No information [...] Procedures Code Procedure Name Date Entry Date [facility]-[id number] Documentation of current medicatio ns ORDERS Follow up as needed ORDERS Follow up [facility] in clinic or telemedicine 2 ORDERS Instructions for Staff 03/08 ORDERS Follow up in clinic or telemedicine with provider or [facility] [id number] EEG EXTENDED 41-60mins (END) [id number] EEG (41min) ORDERS Patient Instructions [facility]-[id number] Documentation of current medicatio ns ORDERS CBC with Diff/Platelet 01/08 ORDERS Lyme Total Ab w/Refl ex (reflex to Western Blot) ORDERS Instructions for Staff 01/08 Vital Signs Date Name Value Unit Description Heart Rate 66 /min pulse rate Immunizations No information available. Advance Directives No information available.
[2024-12-04 10:19] LABS: Hematocrit* 33.1 % (33.0-51.0); Hemoglobin* 10.8 gm/dL (12.0-16.0); Immature Granulocytes Abs Auto 0.05 K/uL (0.00-0.30); Immature Granulocytes Pct Auto 0.7 %; Mean Corpuscular HGB Conc 33 gm/dL (32-36); Mean Corpuscular Hemoglobin 29 pg (26-34); Mean Corpuscular Volume 88 fL (80-100); RDW Coefficient of Variation % 12.8 % (11.5-15.5); Red Blood Count* 3.78 m/uL (4.00-5.20); White Blood Count* 7.51 K/uL (4.50-11.00)
[2024-12-04 10:22] LABS: Lymphocytes Absolute Auto 1.30 K/uL (0.90-2.90); Slide Review Reflex No
[2024-12-04 10:46] LABS: Albumin* 3.8 g/dL (3.3-5.0); Chloride* 101 mmol/L (96-114)
[2024-12-04 10:47] LABS: Potassium* 3.7 mmol/L (3.6-5.1); Sodium* 131 mmol/L (135-149)
[2024-12-04 10:49] LABS: Alanine Aminotransferase* 11 U/L (4-35); Alkaline Phosphatase* 79 U/L (40-150); Anion Gap 5 mEq/L (7-15); Aspartate Amino Transferase* 21 U/L (12-35); Bilirubin Total* 0.8 mg/dL (0.1-1.5); Blood Urea Nitrogen* 12 mg/dL (5-24); Carbon Dioxide* 25 mmol/L (20-32); Creatinine* 0.5 mg/dL (0.5-1.5); Est. Creatinine Clearance* 158.22; Estimated Glomerular Filt Rate 132 ml/min
[2024-12-04 10:50] LABS: Calcium* 8.7 mg/dL (8.4-10.6); Glucose* 89 mg/dL (60-115); Total Protein* 6.8 g/dL (6.0-8.3)
[2024-12-04 11:07] LABS: NT Pro B Type NatriureticPept* < 20 pg/mL (See Note)
[2024-12-04 11:10] VITALS: BP 114/69; PULSE 86; RESP 16; O2SAT 100
[2024-12-04] MEDS: 0.9 % SODIUM CHLORIDE 500 ML 500 ML IV (11:11)
--- NOTE | 2024-12-04 11:28 | PC.OBNST ---
NST Note NST Note Start: 12/04/24 11:23 Freq: ONCE Status: Active Protocol: Document 12/04/24 11:00 WMK (Rec: 12/04/24 11:28 WMK No Response) NST Note 3 Para (# of births) 2 EDC 02/09/25 Gestational Age In 30 Weeks & 3 Days Weeks & Days Patient Presented Other with Complaint(s) of If Observation after R/O PE in the Emergency Department. Has history of Pe's an injury, describe Reactive Yes RN Caren RNC Date 12/04/24 Reactive Yes RN Holli RN Date 12/04/24 OB NST charge Yes Complete NST Note Yes via Write Note The provider's electronic signature indicates the NST is reactive/appropriate for gestational age. *Note to provider: If an addendum is required, open the patient's chart and click on the note under the Nurse/Allied Health tab.
[2024-12-04 11:30] VITALS: BP 109/69; PULSE 87; RESP 16; O2SAT 98
[2024-12-04 12:00] VITALS: BP 112/75; PULSE 89; RESP 16; O2SAT 99
== END 2024-12-04 12:32 | disposition home or self-care (01) ==
PROVIDERS: Emergency Provider Family Medicine; PCP Nurse Practitioner Family
DX: R07.89 Other chest pain (principal); R51.9 Headache, unspecified; R25.2 Cramp and spasm; Z79.899 Other long term (current) drug therapy
CPT/HCPCS: 36415; 59025; 71275; 80053; 83735; 83880; 84484; 85025; 94761; 96360; 99284; 99285; J7030; Q9967

== ENCOUNTER 2024-12-05 14:13 | Outpatient (CLI) | payer BC, SELFPAY | END 2024-12-05 14:14 | disposition home or self-care (01) | LOC: NFLDREF 12-19 02:56 | PROVIDERS: PCP Nurse Practitioner Family; Referring Provider Nurse Practitioner Family; Visit Provider Obstetrics & Gynecology | DX: Z86.711 Personal history of pulmonary embolism (principal); Z87.59 Personal history of other complications of pregnancy, childbirth and the puerperium | CPT/HCPCS: 85520 ==

== ENCOUNTER 2024-12-19 08:45 | Outpatient (CLI) | payer BC, SELFPAY | END 2024-12-19 08:46 | disposition home or self-care (01) | LOC: NFLDREF 08:46 | PROVIDERS: PCP Nurse Practitioner Family; Visit Provider Obstetrics & Gynecology | DX: R10.20 Pelvic and perineal pain unspecified side (principal) | CPT/HCPCS: 82728; 87086 ==

== ENCOUNTER 2024-12-31 20:07 | Inpatient (IN) | payer BC, SELFPAY ==
[2024-12-31] VITALS (10 sets, daily range): BP systolic 104–123; BP diastolic 52–77; PULSE 90–117; RESP 16; TEMP 36.8–36.9; O2SAT 97; BMI 27.9
[2024-12-31] MEDS: LACTATED RINGERS 1000 ML 1,000 ML IV (18:35)
--- NOTE | 2024-12-31 18:39 | P.OBT_ITS ---
History of Present Illness History of Present Illness Date Seen: 12/31/24 History of Present Illness: 29 year old -2-0-2 at 34 2/7 weeks gestation by LMP consistent with 1st trimester ultrasound, GALA 02/09/2025, presents with complaint contractions. These have been intermittent and mild, but she has had such contractions before preceding births. She also has a history of prior labor that arrested, and had subsequent delivery 2 weeks later at 36 weeks. OB Problem List # Antithrombin III deficiency-Followed and managed by Hematology -History of bilateral PE at around 14 weeks on second -Lifelong anticoagulation, was on Apixaban until early switched to Lovenox -MFM referral-ordered 06/19/24 -anti Xa level on second and third trimester or anytime there is a 10 pound weight change (165lbs)- COMPLETE MONTHLY patient preference and MFM recommendation- ordered as miscellaneous test- code: 04177 -Xa level at [facility] end of July: 0.57 within range. -Xa level 09/11/24: 0.54 within range -Xa level 10/05/24: 0.54 within range -Xa level 10/29/24: 0.4, Increase Lovenox to 100mg BID. -Xa level 12/11/24: 0.52 within range # History of labor x 2 -MFM referral -TVUS for cervical length q 2 weeks from 16-23 weeks - 16 weeks: 3.5cm -18 weeks: 3.8cm -09/26/24: Short cervix 23.6mm, FU in 1 week. Started vaginal progesterone. -10/03 and 10/15: Cervix 3.0cm -We will plan to continue vaginal progesterone up to 36 weeks. #Circumvallate anterior placenta -Growth US at 28 and 34 weeks # Anemia Hgb at 28 weeks: 10.5mg/dL Will start supplement re check hgb at 32 weeks, has not tolerated oral iron in the past. If low at 32 weeks will proceed with IV iron infusion. #Elevated 1hrGTT 3hrGTT: 1/ elevated, no GDM # History of migraine headaches Meds Home Medications and Allergies Home Medications ?Medication ?Instructions ?Recorded ?Confirmed ?Type docosahexaenoic acid 200 mg 200 mg PO 07/18/24 5 History capsule ( DHA) progesterone micronized 200 mg 200 mg vaginal QHS #90 caps 10/15/24 12/28/24 Rx capsule (Prometrium) hydrocortisone 2.5 % topical cream 1 applic VT Q6-12H PRN hemorrhoids 10/23/24 12/28/24 Rx with perineal applicator #30 grams enoxaparin 80 mg/0.8 mL 100 mg subcut BID 11/22/24 1 02/28/24 History subcutaneous syringe (Lovenox) Allergies Allergy/AdvReac Type Severity Reaction Status Date / Time No Known Allergies Allergy Unknown Verified 12/28/24 10:22 [facility] Medical History (Updated 12/31/24 @ 19:27 by Monique Ibarra MD) Sesamoiditis of right foot ?M25.871 - Other specified joint disorders, right ankle and foot (ICD-10) 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) Elevated troponin ?R79.89 - Other specified abnormal findings of blood chemistry (ICD-10) Shoulder pain ?M25.519 - Pain in unspecified shoulder (ICD-10) Migraine headache (02/24/22) ?G43.909 - Migraine, unspecified, not intractable, without status migrainosus (ICD-10) Pulmonary embolism (04/12/23) ?I26.99 - Other pulmonary embolism without acute cor pulmonale (ICD-10) Hyperemesis (04/12/23) ?R11.10 - Vomiting, unspecified (ICD-10) History of delivery (04/12/23) ?Z87.51 - Personal history of pre-term labor (ICD-10) 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 (ICD-10) History of delivery ?Z87.51 - Personal history of pre-term labor (ICD-10) Obstetric vaginal laceration with second degree perineal laceration ?O70.1 - Second degree perineal laceration during delivery (ICD-10) Inflamed external hemorrhoid ?K64.4 - Residual hemorrhoidal skin tags (ICD-10) Surgical History History of third molar tooth extraction (2015) ?K08.409 - Partial loss of teeth, unspecified cause, unspecified class (ICD- 10) Family History Mother Hx of blood clots Family/Other Heart disease Breast cancer, Onset Age: 90 Paternal Grandmother Pulmonary hypertension Diabetes Paternal Grandfather Lung cancer Diabetes 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: , 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, 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 Nonsmoker Very rare alcohol use Exercise 3 times a week, HIIT 30 minutes What is your current living situation?: I presently have a place to live Problems where you live: no known problems Problems where you live details: N/A In the past 12 months, utilities in danger of being shut off: no In past 12 months, lack of transportation kept you from medical appts, meetings, work, or getting things needed for daily living: no In the past 12 mos, have been you worried that your food would run out before you had money to buy more?: never true In the past 12 mos, the food you bought just didn't last and you didn't have money to buy more?: never true Smoking Status: Never smoker Do you use any of these nicotine containing products: None Second hand tobacco smoke exposure: No How often do you have a drink containing alcohol: never How often do you have six or more drinks on one occasion: Never AUDIT-C Alcohol total score: 0 Non-prescribed substance use: denies use How often does anyone, including family, friends and others, physically hurt you : never How often does anyone, including family, friends and others, insult or talk down to you: never How often does anyone, including family, friends and others, threaten you with harm: never How often does anyone, including family, friends and others, scream or curse at you: never service: No History History 3 Elective abortions Para 2 Spontaneous abortions Hx # Term Pregnancies Ectopic pregnancies Hx # Pregnancies 2 Multiple births Number of Living Children 2 Past Pregnancies Del. Date GA/Weeks Outcome Route wt Inf Gender Labor Lgth Anesthesia Location Provider Jonah 07/18/21 35 live - vaginal delivery 7 lb 3 oz Female 2 hrs none Gregorio Erickson 08/09/23 36 live - Female 2 hrs epidural Rajan labor VTE OB - H&P: Exam Physical Exam Vital signs: Temp Pulse Resp BP Pulse Ox 98.3 F 113 H 16 118/77 97 12/31/24 17:57 12/31/24 17:57 12/31/24 17:57 12/31/24 17:57 12/31/24 17:58
[2024-12-31] MEDS: AMPICILLIN 2 GM in 0.9 % SODIUM CHLORIDE Mini-bag 100 ML IVPB (19:00)
[2024-12-31 19:08] LABS: Hematocrit* 32.5 % (33.0-51.0); Hemoglobin* 10.4 gm/dL (12.0-16.0); Mean Corpuscular HGB Conc 32 gm/dL (32-36); Mean Corpuscular Hemoglobin 28 pg (26-34); Mean Corpuscular Volume 87 fL (80-100); Red Blood Count* 3.72 m/uL (4.00-5.20); White Blood Count* 9.65 K/uL (4.50-11.00)
[2024-12-31 19:16] LABS: Slide Review Reflex No
[2024-12-31 19:46] LABS: Appearance Urine Clear (Clear)
[2024-12-31] MEDS: BETAMETHASONE SOD PHOS/ACETATE 6 MG/ML ML 12 MG IM (20:14)
[2024-12-31 20:25] LABS: INR 0.97 (0.91-1.10); Prothrombin Time 13.7 Seconds
--- NOTE | 2024-12-31 22:44 | P.OBHP_ITS ---
OB - H&P: HPI Labor/Induction History of Present Illness Date Seen: 12/31/24 Chief Complaint: 29 year old -2-0-2 at 34 2/7 weeks gestation by LMP consistent with 1st trimester ultrasound, GALA 02/09/2025, presents with complaint contractions. These have been intermittent and mild, but she has had such contractions before preceding births. She also has a history of prior labor that arrested, and had subsequent delivery 2 weeks later at 36 weeks. Chief complaint: Maternity Narrative: Gabrielle Mcmahon is a 29 year old female Specific Issues/Plans Gabrielle = Cheer-sta Partner: Wanrer Daughters: Mami, Edwin Baby: [place]! Collect repeat hemoglobin at 32 weeks. H&P: 12/31/24 Dr. 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 -Xa level 09/11/24: 0.54 within range -Xa level 10/05/24: 0.54 within range -Xa level 10/29/24: 0.4, Increase Lovenox to 100mg BID. -Xa level 12/11/24: 0.52 within range # History of labor x 2 -MFM referral -TVUS for cervical length q 2 weeks from 16-23 weeks - 16 weeks: 3.5cm -18 weeks: 3.8cm -09/26/24: Short cervix 23.6mm, FU in 1 week. Started vaginal progesterone. -10/03 and 10/15: Cervix 3.0cm -We will plan to continue vaginal progesterone up to 36 weeks. #Circumvallate anterior placenta -Growth US at 28 and 34 weeks # Anemia Hgb at 28 weeks: 10.5mg/dL Will start supplement re check hgb at 32 weeks, has not tolerated oral iron in the past. If low at 32 weeks will proceed with IV iron infusion. #Elevated 1hrGTT 3hrGTT: 1/4 elevated, no GDM # History of migraine headaches Imaging: [facility] early ultrasound/consult on 08/09/2024: Single done at 13 weeks 5 days. Nuchal translucency measurement was not objectively assessed due to see oral out of range at 89 mm however subjectively within normal limits. The nasal bone was visualized. Sonographic biometry is large for gestational age predicted by assigned GALA. Visualized anatomy appropriate for early gestational age. There is a suspected circumvallate placenta with a placental Javier about 3 x 1 cm at the left lateral placental margin. There is no evidence of a subchorionic hemorrhage on today's ultrasound. Recommendations: Serial evaluation of cervical length via transvaginal ultrasound every 2 weeks starting at 16 weeks gestation through 23 weeks gestation. Due to history of labor. Comprehensive ultrasound is recommended at 18-20 weeks with [facility] this is scheduled at [place] with [facility]. If circumvallate placenta persist recommendation would be to complete growth ultrasound at 28 and 34 weeks. Level 2 US: Breech presentation, single deepest pocket of amniotic fluid 4.9 cm. Abdominal circumference: 57.8 percentile, EFW: 52.9 percentile. Impression: Barnett intrauterine at 20w 4d gestational age. A left choroid plexus cyst was noted. Otherwise, none of the anomalies commonly detected by ultrasound were evident in the detailed anatomic survey described above, although evaluation of anatomy was suboptimal as noted above.Growth parameters and estimated weight were consistent with appropriate for gestational age pattern of growth.The amniotic fluid volume appeared normal.The transvaginal cervical length is shortened at 23.6 mm.A circumvallate placenta is again noted. Recommendation: cell free DNA testing, Gabrielle has opted out of all aneuploidy screening and diagnostic testing. Reviewed options for intervention to ameliorate this risk, including cervical cerclage and vaginal progesterone supplementation. We reviewed the risks, benefits and hopeful outcomes of both interventions and in Gabrielle's case, her history of pulmonary embolism related to antithrombin III deficiency receiving therapeutic anticoagulation would make surgical intervention an additional risk consideration for her. Given this, will plan to proceed with vaginal progesterone administration and her Ob provider did send in a prescription for her to her local [facility]. Recommend micronized vaginal progesterone (prometrium) 200 mg PV q hs through 36 weeks gestation. We reviewed that progesterone only exposure does not increase her clotting risk, particularly given that she is therapeutically anticoagulated. We reviewed the need for close ultrasound and clinical follow-up as progressive shortening despite treatment with progesterone would indicate that cerclage should be considered at that time.Recommend repeat transvaginal US within 1 week to re-evaluate cervical length and please refer Gabrielle to [facility] for this US. Given finding of circumvallate placenta, recommend repeat assessment of growth and anatomy at 28 and 34 weeks, which can be scheduled through [place] [facility]. Recommend continued q 4 week assessment of anti-Xa level to ensure Gabrielle remains therapeutically anticoagulated. 10/03/24: [facility] FU: SDP: 3.8 cm. Abdominal circumference: 74th percentile, EFW: 88th percentile. Cervical length: 32.4 mm. At this time, recommend continuing vaginal progesterone. Repeat transvaginal ultrasound next week. And recommend final transvaginal ultrasound by 23 6/7 weeks in [place]. If cervical length remains more than 2.5 cm, can consider discontinuing vaginal progesterone with shared decision making. There is no harm in continuing if she desires, however. 10/15/24: Transverse. SDP 4.9cm. Cervical length: 3.0cm. Planning to continue vaginal progesterone until 36 weeks. 11/22/24: Vertex, SDP: 5.0, EFW: 1528 g, 88th percentile. AC: 92 percentile. Normal growth. Vaccinations: COVID: declines Flu: declined Tdap: 12/04/24 RSV: 12/19/24 32 week mental health: [] Last pap: 2023, NILM, Neg. HPV Meds Home Medications and Allergies Home Medications ?Medication ?Instructions ?Recorded ?Confirmed ?Type docosahexaenoic acid 200 mg 200 mg PO DAILY 07/18/24 1 03/02/24 History capsule ( DHA) progesterone micronized 200 mg 200 mg vaginal QHS #90 caps 10/15/24 12/28/24 Rx capsule (Prometrium) hydrocortisone 2.5 % topical cream 1 applic UT Q6-12H PRN hemorrhoids 10/23/24 12/28/24 Rx with perineal applicator #30 grams enoxaparin 80 mg/0.8 mL 100 mg subcut BID 11/22/24 1 03/02/24 History subcutaneous syringe (Lovenox) Allergies Allergy/AdvReac Type Severity Reaction Status Date / Time No Known Allergies Allergy Unknown Verified 12/28/24 10:22 OB - H&P: Exam Physical Exam: Vital signs: Temp Pulse Resp BP Pulse Ox 98.4 F 93 16 104/57 L 97 12/31/24 22:14 12/31/24 22:05 12/31/24 17:57 12/31/24 22:05 12/31/24 17:58 Narrative: Physical exam: General: No acute distress Psych: Alert and oriented x3, full affect HEENT: Normocephalic, atraumatic Heart: Regular rate and rhythm, no murmur rub or gallop Lungs: Clear to auscultation bilaterally Abdomen: Soft, nontender, gravid, cephalic lie, confirmed by bedside US Lower extremities: No edema or erythema Pelvic exam: Per RN, 4.5 / 80 / -3 My repeat exam 1 hour later: 5-6 / 90 / -1, vertex tracing: Baseline 140 / accelerations present / no decelerations / moderate variability. Contractions irregular / infrequent, with irritability noted. OB - Results Labs Labs: Short CBC 12/31/24 Range/Units 18:55 WBC 9.65 (4.50-11.00) K/uL Hgb 10.4 L (12.0-16.0) gm/dL Hct 32.5 L (33.0-51.0) % Plt Count 192 (140-440) K/uL Urine 12/31/24 Range/Units 19:25 Urine Color Yellow (Yellow) Urine Appearance Clear (Clear) Urine pH 7.0 (5.0-8.5) Ur Specific [place] 1.010 (1.000-1.030) Urine Protein Negative (Negative) Urine Glucose (UA) Negative (Negative) Imaging OB US: My impression: Cephalic on bedside US OB - Problem Based A/P Additional Plan (1) labor: Status: Acute (2) Antithrombin 3 deficiency: Status: Acute (3) Hx of pulmonary embolus during : Problem details: On Lovenox Status: Acute Plan labor at 34 2/7 weeks. Currently with cervical dilation preventing safe transfer to higher level of care. History of labor X 2 Antithrombin III deficiency, on therapeutic anticoagulation with Lovenox 100 mg BID. Last dose at 0830 on 12/31. History of pulmonary embolism in prior . Category I tracing GBS unknown Initially, she was given nifepine for tocolysis with intent to tranfer to higher level of care. When cervical dilation made safe tranfer impossible, no further nifedipine was given. GBS collected and pending. Continuous monitoring. Ampicillin for GBS unknown status / labor. Stop Lovenox. She is not a candidate for regional anesthesia for 24 hours after last dose. Plan for aggressive use of uterotonics and hemostatic agents after of infant: tranexamic acid, rectal misoprostol, IV oxytocin, and IM methergine. Will be quick to use intrauterine tamponade with Chantel or Bakri. Would consider bedside US after to assure that there is no accumulation of intrauterine blood. May restart at therapeutic dose (1 mg / kg ) 6-12 hours after vaginal . I am uncertain what her halfway plan is with hematology; will defer to their recommendation for longer term anticoagulation. Infant will need to be transferred to higher level of care. I would consider discharge for [facility] once she is stable enough to receive her first dose of Lovenox. Delivery/Labor/Induction Plan Plan: expectant management
[2025-01-01] VITALS (26 sets, daily range): BP systolic 93–124; BP diastolic 53–73; PULSE 93–133; RESP 16; TEMP 36.7–37.1; O2SAT 95–98
[2025-01-01] MEDS: AMPICILLIN 1 GM in 0.9 % SODIUM CHLORIDE Mini-bag 100 ML IVPB ×4 (05:10→17:11)
--- NOTE | 2025-01-01 09:11 | PM.OBPNL ---
Subjective Time Seen by Provider: 08:30 Date Seen: 01/01/25 Narrative: Gabrielle is a 29-year-old [id number] woman who is 34 weeks, 3 days gestation today on hospital day 2 after admission for labor. is otherwise complicated by antithrombin 3 deficiency, for which she is maintained on therapeutic Lovenox twice daily. Her last cervical exam was late last night. Throughout the night, she was able to sleep some, but always did awaken with contractions. This morning, she reports feeling similar to how she has throughout the night. Her last dose of Lovenox was 8:30 a.m. yesterday morning. Objective Exam: Gen - NAD Cervical exam: 5-6 cm, 90%,-1 station. No change from last night's exam Vital Signs: Last Vital Signs Temp 98.1 F 01/01/25 08:08 Pulse 98 01/01/25 08:07 Resp 16 01/01/25 08:08 BP 119/73 01/01/25 08:07 Pulse Ox 97 01/01/25 08:56 Comments: tracing: Baseline 120, accelerations present. One isolated deceleration to a angel of 90 beats per minute at 8:44 a.m., gradual and descent and recovery, lasting approximately 45 seconds total. Moderate variability. Contractions are registering every 5-7 minutes. Assessment Assessment: other ( labor. No change in cervix overnight.) Status: Category ll Tracing Comments: One isolated deceleration, otherwise category 1 tracing GBS unknown. She is receiving ampicillin every 4 hours. Labor Progress: No change in cervical exam since last night. Advanced cervical dilation in a patient who has had 2 prior births; this raises the possibility of precipitous labor at any moment. Maternal Status: Antithrombin 3 deficiency, currently off therapeutic anticoagulation. Plan Plan: Continue monitoring and IV ampicillin. Liberalize activity this morning and follow for any changes in status. Begin SCDs while in bed. If labor does not occur spontaneously in these next few hours, contact Maternal- Medicine physicians at [facility].
[2025-01-01 18:06] LABS: Strep B DNA Probe Negative (Negative)
[2025-01-01] MEDS: BETAMETHASONE SOD PHOS/ACETATE 6 MG/ML ML 12 MG IM (20:17)
[2025-01-01 23:31] LABS: Strep B Susceptibility Needed? No
[2025-01-02] VITALS (30 sets, daily range): BP systolic 88–121; BP diastolic 40–75; PULSE 90–229; RESP 16–96; TEMP 36.4–36.9; O2SAT 16–100
--- NOTE | 2025-01-02 09:39 | PM.OBPNL ---
Subjective Time Seen by Provider: 08:30 Date Seen: 01/02/25 Narrative: Okay, uncomfortable. Objective Vital Signs: Last Vital Signs Temp 98.4 F 01/02/25 05:00 Pulse 91 01/02/25 07:28 Resp 96 H 01/02/25 05:00 BP 106/66 01/02/25 07:28 Pulse Ox 97 01/02/25 07:27 Pelvic Exam Dilation (cm): 6.5 Effacement (%): 90 Station: 0 Contractions Monitor mode: External Contraction pattern: Irregular Contraction intensity: Moderate Assessment Station: 0 Status: Category ll Heart Rate Baseline: 120 Jail Variability: Moderate (6-25) Monitor Accelerations: Present Monitor Decelerations: Variable Tracing Comments: 1 episode of variable deceleration, but at 0935 just had 1 episode of what looks like a late deceleration, will continue close monitoring. Plan Plan: Patient states that she had a good night, she slept last night. She does continue to notice painful uterine contractions-not as bad as when she arrived to the hospital. She does note that pelvic pressure has increased. She has been off Lovenox anticoagulation since 12/31/24 am dose. NST this morning showing irregular uterine contractions that palpated moderate and patient was describing as painful. I did recommend re evaluation of cervix. Her last cervical check had been about 24 hours prior. She is more dilated and what concerns me the most at this moment is station. At this point, she has remained unstable to be considered for transport as she has continued to experience uterine contractions and advanced cervical dilation. She has been off anticoagulation now for 48 hours. Ideally, she would be at a tertiary care hospital that could provide ICU care, possible Heparin infusion, consider IVC filter and maybe she could be safely monitored and continued expectant management would make sense-for benefit. But again, she has not been considered stable for transfer, and we do not have those resources at our institution. At this stage, contractions continue and she has continued to make cervical change- taking into consideration risks vs benefits of our current situation, after shared decision making with patient and we are all in agreement that we should proceed with delivery. At this moment, risk for bleeding has lessened w/o anticoagulation therapy, we have 2 units of PRBCs ready. Our plan has always been to manage atony aggressively. Patient understands that baby will need to be transferred and she is in agreement with that plan. MECHANICAL RESEARCH ENGINEER has been notified of plan so that we can start making arrangements for transport. She would be a candidate for epidural if she desires. Will proceed with AROM next. GBS resulted negative no need for continued antibiotic prophylaxis. Will FU closely.
[2025-01-02] MEDS: OXYTOCIN 30 unit/500 ML in NS 30 UNIT/500 ML BAG 300 UNIT IVPB (12:50)
--- NOTE | 2025-01-02 13:09 | W.PM.OBVAGDE ---
OB Procedure Vag Delivery Mother Details Mother Details: The patient is a 29 year-old, 3, Para 2, admitted on 12/31/24 at 34 3/7 weeks gestation due to labor. complicated by history of PE, antithrombin III deficiency on therapeutic anticoagulation. Patient started to experience painful and frequent contractions on Tuesday night 12/30/24. Presented to labor and delivery and upon observation was noted to have cervical change in the presence of painful uterine contractions. She was started on antibiotics for GBS unknown status, completed a course of steroids and continued to make slow progress on cervical dilation. Uterine contractions did seem to space out a bit yesterday afternoon and last night. Due to advanced cervical dilation it was deemed that transfer to higher level of care with NICU availability was not safe. This morning upon re evaluation patient continued to experience painful contractions although not as frequent but continued to experience significant pressure in her pelvis. Recommendation was given to re evaluate cervix. Cervical dilation this am found at 6.5cm. After discussion of risks and benefits, taking into consideration of risk with prolonged hold on her anticoagulation therapy, inability to complete safe transport and continued contractions and cervical change recommendation was given for labor augmentation. : 3 Para: 3 Weeks Gestation: 34.4 Admission Date: 12/30/24 Additional Details Amniotic Membrane Status: AROM Amniotic Membrane Rupture Date: 01/02/25 Amniotic Membrane Rupture Time: 10:15 Amniotic Membrane Fluid Description: Clear Analgesia/Anesthesia Type: None Waterbirth: No Pitcoin: No Intrapartal Events: Labor Augmentation Delivery augmentation: rupture of membranes Labor Onset: 19:00 (12/31/24) Complete: 12:44 Pushin:47 Heart: heart tones during second stage were category 2. Variable decelerations with each contraction. Delivery Details Delivery Date: 01/02/25 Delivery Time: 12:47 Route of delivery: Gender: Male Infant Viability: Alive; Heart Rate Present Position at Delivery: OA Delivery Details: Delivered via spontaneous vaginal delivery. Infant was placed on maternal abdomen.? Cord was clamped and cut after a 30-60 second delay. Nose and mouth were bulb suctioned.? Infant weight pending. nurse practitioner in the room at delivery. Baby is so far doing well, has needed some CPAP but otherwise normal vital signs. 1 Minute Interval Total Score: 7 5 Minute Interval Total Score: 7 Additional Details Shoulder Dystocia: No Placenta Delivery Time: 12:53 Placental Delivery Description: Spontaneous Procedure Done: Global Blood Loss: 100 Laceration: None Episiotomy Description: None Blood Loss Measurement Type: QBL Bakri Used: No Sponge/Need Count Correct: Yes Cord Vessel Description: 3 Vessels and Around Body Event Summary Status: Mother and were stable after delivery. Baby will be transferred to NICU due to gestational age. Placental cultures obtained. Placenta will be sent to pathology. Will plan to weight patient and restart Lovenox 1mg/kg 6 hours after delivery. Disposition: floor
[2025-01-02] MEDS: ACETAMINOPHEN 500 MG TABLET 1000 MG PO ×2 (14:04→19:42)
[2025-01-02] MEDS: APIXABAN 5 MG TABLET PO (18:57)
[2025-01-02] MEDS: IBUPROFEN 600 MG TABLET PO (23:10)
[2025-01-03 04:50] VITALS: BP 116/74; PULSE 83; RESP 16; TEMP 36.6; O2SAT 97
[2025-01-03] MEDS: IBUPROFEN 600 MG TABLET PO ×2 (04:54→11:05)
[2025-01-03 06:06] LABS: Hemoglobin* 10.1 gm/dL (12.0-16.0)
[2025-01-03] MEDS: APIXABAN 5 MG TABLET PO (07:18)
[2025-01-03] MEDS: DOCUSATE SODIUM 100 MG CAPSULE PO (08:38)
[2025-01-03] MEDS: ACETAMINOPHEN 500 MG TABLET 1000 MG PO ×2 (08:38→15:16)
[2025-01-03 08:40] VITALS: BP 114/71; PULSE 78; RESP 16; TEMP 36.3; O2SAT 99
--- NOTE | 2025-01-03 09:23 | PM.OBDSVD1 ---
DS: Providers Provider Date Seen: 01/03/25 Date of admission: 12/31/24 20:07 Primary care physician: Dianna Denise CNP Admitting Clinician: Monique Ibarra MD Consults: 01/03/25 08:58 Consult to Physical Therapy [CONS] Routine Comment: Reason(s) for PT Consult:: Pain Any Restrictions?:: No Restrictions Comment: Inner thigh and outer calf pain Attending Physician on discharge: Monique Ibarra MD Date of Discharge: 01/03/25 DS: Diagnosis Discharge Diagnosis (1) labor: Status: Acute (2) Antithrombin 3 deficiency: Status: Acute (3) Hx of pulmonary embolus during : Status: Acute Problem details: On Lovenox (4) Migraine without aura: Status: Acute (5) Hemorrhoids: Status: Acute Exam Narrative: Exam Narrative: Physical exam: General: No acute distress Psych: Alert and oriented x4, full affect HEENT: Normocephalic, atraumatic Heart: Regular rate and rhythm, no murmur rub or gallop Lungs: Clear to auscultation bilaterally Abdomen: Normoactive bowel sounds, soft, no tenderness, rebound, or guarding Skin: No lesions or rashes Lower extremities: No edema or erythema. No cording or pain on palpation. Negative Eladia sign bilaterally. Pelvic exam: No blood noted on pad Const: Vital Signs, click to edit/add: Vital Signs - 24 hr 01/02/25 10:18 01/02/25 10:20 01/02/25 11:26 Temperature 98.2 F Pulse Rate 95 92 Pulse Rate [Pulse Oximeter] Respiratory Rate 16 Blood Pressure 121/75 116/73 Blood Pressure [Le ft Arm] P[facility]xim[facility] 11:26 01/02/25 12:23 01/02/25 12:28 Temperature 98.4 F Pulse Rate Pulse Rate [Pulse Oximeter] Respiratory Rate 16 Blood Pressure Blood Pressure [Le ft Arm] Pulse Oximetry 100 100 [facility] 01[facility]02/25 12:29 01/02/25 12:57 01/02/25 13:11 Temperature Pulse Rate 108 H 100 Pulse Rate [Pulse Oximeter] Respiratory Rate Blood Pressure 120/73 119/75 Blood Pressure [Le ft Arm] Pulse Oximetry 81 L [facility] 01/02/25 13:25 11/12/25 13:26 01/02/25 13:40 Temperature Pulse Rate 96 Pulse Rate [Pulse Oximeter] Respiratory Rate 16 16 Blood Pressure 114/71 Blood Pressure [Le ft Arm] Pulse Oximetry Oxygen Delivery Me thod 01/02/25 13:41 01/02/25 13:55 01/02/25 13:56 Temperature Pulse Rate 93 90 Pulse Rate [Pulse Oximeter] Respiratory Rate 16 Blood Pressure 115/70 114/70 Blood Pressure [Le ft Arm] Pulse Oximetry Oxygen Delivery Me thod 01/02/25 14:10 01/02/25 14:11 01/02/25 14:25 Temperature Pulse Rate 93 Pulse Rate [Pulse Oximeter] Respiratory Rate 16 16 Blood Pressure 109/64 Blood Pressure [Le ft Arm] Pulse Oximetry Oxygen Delivery Me thod 01/02/25 14:26 01/02/25 14:40 01/02/25 14:41 Temperature Pulse Rate 97 94 Pulse Rate [Pulse Oximeter] Respiratory Rate 16 Blood Pressure 109/69 110/69 Blood Pressure [Le ft Arm] Pulse Oximetry Oxygen Delivery Me thod 01/02/25 14:55 01/02/25 14:57 01/02/25 15:10 Temperature Pulse Rate 93 Pulse Rate [Pulse Oximeter] Respiratory Rate 16 16 Blood Pressure 111/58 L Blood Pressure [Le ft Arm] Pulse Oximetry Oxygen Delivery Me thod 01/02/25 15:11 01/02/25 16:10 01/02/25 19:30 Temperature 98.4 F 97.6 F Pulse Rate 98 Pulse Rate [Pulse Oximeter] 92 92 Respiratory Rate 16 16 Blood Pressure 114/60 Blood Pressure [Le ft Arm] 99/63 116/65 Pulse Oximetry 98 98 Oxygen Delivery Me thod Room Air Room Air 01/02/25 23:10 01/03/25 04:50 01/03/25 08:40 Temperature 97.8 F 97.8 F 97.4 F L Pulse Rate Pulse Rate [Pulse Oximeter] 95 83 78 Respiratory Rate 16 16 16 Blood Pressure Blood Pressure [Le ft Arm] 96/59 L 116/74 114/71 Pulse Oximetry 96 97 99 Oxygen Delivery Me thod Room Air Room Air Room Air OB - DS: Summary Hospital Course Hospital Course: The patient is a 29 year old at 34 weeks gestation that was admitted to the Center on 12/31/24 for labor. She had an uncomplicated vaginal delivery. She delivered a viable male infant. Her son did well after delivery but had to be transfer for NICU care regardless due to gestational age. Reports her is doing well and off oxygen. They are just working on feeding currently. She is bottle feeding. She has anti thrombin 3 deficiency. She is for going breast feeding to be able to take apixaban instead of Lovenox. Apixaban restarted 1856 on 01/02. The patient has done well. Overnight patient had complaints of some chest pain that was evaluated by Dr. Barrow and clinically consistent with MSK pain. Reproducible with palpation and improves with Tylenol. That has progressively improved. and her EKG from last night is consistent with previous EKG. Her pain is well controlled on oral pain medications. She is tolerating a regular diet. She has passed flatus. She is ambulating without difficulty. Lochia is scant. She is urinating without mack. Patient denies SOB, n/v, headache, RUQ pain, vision changes, dizziness. She had an ECHO to complete her cardiac workup. Echocardiogram results: 1. LVEF estimate 60-65%. Normal left ventricular size and wall thickness. 2. Normal right ventricular size and global function. 3. No significant valvular abnormalities. 4. Normal RAP estimate Would like to discharge at 24 hours so she can go be with her . [place] Infant Gender: Male Time Spent with Patient Time attestation: Total time spent providing and/or coordinating discharge services: Discharge Plan Discharge Disposition: Home, Self-Care Date of Admission: 12/31/24 20:07 Attending Provider on Discharge: Elaina Cisneros Primary Care Provider: Dianna Denise Condition: Stable Anticipated Discharge Date/Time: 01/03/25 14:01 Discharge Medications: New Dermoplast (with menthol) 20-0.5 % Aerosol 1 spray topical QID PRN30 Days Qty: 78 0RF acetaminophen 500 mg Tablet 1,000 mg PO Q6H PRN30 Days Qty: 60 0RF Eliquis 5 mg Tablet 5 mg PO Q12H 30 Days Qty: 60 1RF docusate sodium 100 mg Capsule 100 mg PO DAILY Qty: 30 0RF ibuprofen 600 mg Tablet 600 mg PO Q6H PRN30 Days Qty: 30 0RF Lanolin (HPA) 100 % Cream 1 applic topical Q1H PRNQty: 7 0RF Continued DHA 200 mg capsule 200 mg PO DAILY hydrocortisone 2.5 % cream with perineal applicator 1 applic MT Q6-12H PRN (Reason: hemorrhoids) Qty: 30 0RF Discontinued enoxaparin [Lovenox] 80 mg/0.8 mL syringe 100 mg subcut BID progesterone micronized [Prometrium] 200 mg capsule 200 mg vaginal QHS Qty: 90 1RF Discharge Orders: Discharge Order (Routine); Ordered 01/03/25 Ordered By: Elaina Cisneros Patient Education: Vaginal Delivery (DC), OB Vaginal/Bottle Feeding Follow Up Appointments: Dianna Denise [employer] [Primary Care Provider, Family Practice] Forms: [facility] Info Instructions
[2025-01-03 12:44] VITALS: BP 112/75; PULSE 90; RESP 17; TEMP 36.6; O2SAT 97
== END 2025-01-03 15:20 | disposition home or self-care (01) | DRG 560 ==
LOC: OB OUT 20:08 → OB 20:08
PROVIDERS: Obstetrics & Gynecology; Admitting Provider Obstetrics & Gynecology; PCP Nurse Practitioner Family; Visit Provider Obstetrics & Gynecology
DX: O60.14X0 Preterm labor third trimester with preterm delivery third trimester, not applicable or unspecified (principal); O99.12 Other diseases of the blood and blood-forming organs and certain disorders involving the immune mechanism complicating childbirth; D68.59 Other primary thrombophilia; O99.02 Anemia complicating childbirth; D64.9 Anemia, unspecified; Z86.711 Personal history of pulmonary embolism; Z79.01 Long term (current) use of anticoagulants; R10.13 Epigastric pain; G43.009 Migraine without aura, not intractable, without status migrainosus; R07.9 Chest pain, unspecified; O87.2 Hemorrhoids in the puerperium; Z3A.34 34 weeks gestation of pregnancy; Z37.0 Single live birth
CPT/HCPCS: 36415; 81003; 85018; 85027; 85384; 85610; 85730; 86592; 86850; 86900; 86901; 86922; 87070; 87081; 87186; 87653; 93005; 93306; 97161; 97530; G0463; A9270; J0290; J0702; J7120

== ENCOUNTER 2025-01-18 14:46 | Outpatient (CLI) | payer BC, SELFPAY | END 2025-01-18 14:47 | disposition home or self-care (01) | LOC: NFLDREF 01-24 01:28 | PROVIDERS: PCP Nurse Practitioner Family; Referring Provider Nurse Practitioner Family; Visit Provider Advanced Practice Midwife | DX: R30.0 Dysuria (principal) | CPT/HCPCS: 87086 ==